=== PATIENT | female | born 1990 ===

== ENCOUNTER 2018-05-19 14:12 | Emergency (ER) | payer MEDICAID, SELFPAY ==
[2018-05-19 14:22] VITALS: BP 152/96; PULSE 84; RESP 16; TEMP 36.7; O2SAT 98
--- NOTE | 2018-05-19 15:13 | W.ED.GENAD ---
Discharge Plan Disposition Patient Disposition: HOME Condition: Fair Discharge Details Chief Complaint: RespSymp Clinical Impression: Pneumonia Primary Care Provider: Rip Sanchez ED Provider: Sanam Rojas Home Meds and New Rx's Prescriptions: New azithromycin 500 mg tablet See Label Instructions .ROUTE .COMPLEX Qty: 3 RF: 0 prednisone 20 mg tablet 60 mg PO DAILY Qty: 12 RF: 0 Continue PNV cmb#95-ferrous fumarate-FA [] 1 EACH tablet 1 ea PO DAILY RF: 0 blood sugar diagnostic [Blood Glucose Test] 1 EACH strip 1 ea Miscellaneous TID & PRN Qty: 400 RF: 12 blood sugar diagnostic [Blood Glucose Test] 1 EACH strip 1 ea Miscellaneous DAILY Qty: 100 RF: 12 lancets 1 EACH misc 1 ea Miscellaneous DAILY Qty: 100 RF: 12 ondansetron 4 MG tablet,disintegrating 8 mg PO Q8H PRN Qty: 24 RF: 1 ondansetron 8 MG tablet,disintegrating 8 mg PO Q8H PRN Qty: 6 RF: 0 insulin NPH isoph U-100 human [Humulin N NPH Insulin KwikPen] 100 UNIT/1 ML insulin pen 20 u Sub-Q HS Qty: 3 RF: 5 Discharge Instructions Instructions: Pneumonia (ED) Additional Instructions: Encourage hydration. Tylenol and/or Motrin as needed for discomfort. Take antibiotics as prescribed, even if symptoms are improving please take entire course. Steroids as prescribed. Follow up with primary care next week. If you develop shortness of breath, difficulty breathing, inability to stay hydrated or other new/worsening symptoms please seek care urgently once again. Referrals: Rip Sanchez [Primary Care Provider] - Medical Decision Making Patient presents today with a chief complaint of cough. On exam, lungs are clear. Vital signs are within normal limits. She is currently afebrile. Is endorsing fever/chills at home as well as increase in her asthma symptoms. She is endorsing reductive cough and reports that she is bringing up green sputum. Patient status post hysterectomy. Patient has had pneumonia on multiple occasions. Reported to the patient receives oral steroids and antibiotics. We discussed risks benefits of chest x-ray which patient is currently declining. Reports she had multiple of these historically and preferred to treat based on history and symptoms. Patient will be reated with Azithromycin and Prednisone. She was given strict return precautions. Encouraged hydration. All of her questions and conerns were addressed, she is in agreement with this plan. Advised f/u with PCP next week for reevaluation. HPI General Mode of arrival: ambulatory. Date/Time Provider Initiated Documentation: 05/19/18 14:50. Limitations to Documentation: no limitations. Information obtained by: patient. HPI Narrative: Patient is a 28-year-old female, with history of asthma, which chief complaint of cough x1 for 5 weeks. She reports over the past week her symptoms have worsened. She is endorsing fevers and chills. Does not have a thermometer at home but does report that she had subjective fevers. Clinical she has had a sore throat but reports that this is more dry than painful. Denies any ear pain. Denies any nausea, vomiting or diarrhea. States that she typically has pneumonia personally 2X per year. Reports that she had increased asthma symptoms and has been needing to use her breakthrough inhaler to help with symptomatic management. He is not currently feeling short of breath and having difficulty breathing Related Data Home Medications Medication Instructions Recorded Confirmed PNV cmb#95-ferrous fumarate-FA 1 ea PO DAILY 03/03/17 04/29/17 [] blood sugar diagnostic [Blood #100 strip 03/17/17 Glucose Test] blood sugar diagnostic [Blood #400 strip 03/17/17 Glucose Test] lancets #100 ea 03/17/17 ondansetron 8 mg PO Q8H PRN #24 tab-cap 03/26/17 ondansetron 8 mg PO Q8H PRN #6 tab-cap 05/18/17 insulin NPH isoph U-100 human 20 u SUB-Q HS #3 pen 05/28/17 [Humulin N NPH Insulin KwikPen] azithromycin See Label Instructions .ROUTE 05/19/18 .COMPLEX #3 tab prednisone 60 mg PO DAILY #12 tab 05/19/18 Previous Rx's Medication Instructions Recorded ondansetron 8 mg PO Q8H PRN #6 tab-cap 05/18/17 insulin NPH isoph U-100 human 20 u SUB-Q HS #3 pen 05/28/17 [Humulin N NPH Insulin KwikPen] azithromycin See Label Instructions .ROUTE 05/19/18 .COMPLEX #3 tab prednisone 60 mg PO DAILY #12 tab 05/19/18 Allergies Allergy/AdvReac Type Severity Reaction Status Date / Time No Known Allergies Allergy Unverified 05/19/18 14:26 General Stated Complaint: RespSymp JORGE: 3 Review of Systems Constitutional Reports as per HPI, Reports chills, Reports fatigue, Reports fever(s) and Denies headache(s) ENT Reports as per HPI and Denies headache(s) Cardiovascular Denies chest pain, Denies chest pain at rest and Denies palpitations Respiratory Reports chest congestion, Reports cough, Denies hemoptysis and Reports wheezing Gastrointestinal Denies change in bowel habits, Denies diarrhea, Denies nausea and Denies vomiting Integumentary/Breasts Denies rash Neurologic Denies headache(s) Endocrine Reports fatigue and Denies palpitations Allergic/Immunologic Reports wheezing [facility] Medical History Asthma BMI 45.0-49.9, adult Carpal tunnel syndrome Social History Smoking/Tobacco Use Status: Current every day Surgical History Abdominal hysterectomy (09/11/17) section Exam Const General: cooperative, healthy appearing, comfortable, no acute distress, well developed and well groomed Nutritional Appearance: well nourished and overweight Orientation: alert and awake HENMT Head: normal to inspection Ears: hearing grossly normal bilaterally, external ears normal and TM's normal bilaterally General nose exam: external nose normal Face and sinus: normal facial exam Mouth: oral mucosae normal, lip normal, tongue normal and moist mucous membranes Throat: posterior oropharynx normal, tonsils normal and uvula midline Eyes General: appearance normal, both eyes and all related structures Neck Neck: normal visual inspection and no lymphadenopathy Resp Effort & Inspection: normal respiratory effort, able to speak in complete sentences and no respiratory distress Auscultation: clear to auscultation bilaterally, no rales, no rhonchi and no wheezes Cardio Rate: regular rate Rhythm: regular rhythm Heart Sounds: S1 normal and S2 normal Skin General skin exam: no rashes or lesions noted Lesions: no lesions Rashes: no rashes Neuro General: alert and awake Cognition: normal cognition Speech: speech normal Gait: normal gait Psych Appearance: grossly normal and well kempt Mental Status: mental status grossly normal Speech and Movement: speech and movement normal Course Vital Signs Temperature 36.7 C 05/19/18 14:22 Pulse 84 09/26/18 14:22 Respiratory Rate 16 05/19/18 14:22 Blood Pressure 152/96 H 05/19/18 14:22 Pulse Oximetry 98 05/19/18 14:22 Temperature 36.7 C 05/19/18 14:22 Temperature Source Skin 05/19/18 14:22 Pulse 84 05/19/18 14:22 Respiratory Rate 16 05/19/18 14:22 Respiratory Effort Non-Labored 05/19/18 14:22 Blood Pressure 152/96 H 05/19/18 14:22 Blood Pressure Position Sitting 05/19/18 14:22 Pulse Oximetry 98 05/19/18 14:22 Oxygen Delivery Method Room Air 05/19/18 14:22 Oxygen Flow Rate 0 05/19/18 14:22 Pain Level 5 05/19/18 14:22
[2018-05-19 15:28] VITALS: BP 139/87; PULSE 97; RESP 20; TEMP 37; O2SAT 97
== END 2018-05-19 15:26 | disposition home or self-care (01) ==
PROVIDERS: Emergency Provider Physician Assistant; PCP Specialist/Technologist Athletic Trainer
DX: J18.9 Pneumonia, unspecified organism (principal); Z87.09 Personal history of other diseases of the respiratory system
CPT/HCPCS: 99283

== ENCOUNTER 2018-06-05 09:54 | Emergency (ER) | payer OTHER, MEDICAID, SELFPAY ==
[2018-06-05 10:07] VITALS: BP 122/75; PULSE 75; RESP 16; TEMP 36.7; O2SAT 99
--- NOTE | 2018-06-05 10:10 | ED.GENADUL_ITS ---
Discharge Plan Disposition Patient Disposition: HOME Condition: Good Discharge Details Chief Complaint: Headache Clinical Impression: Migraine Primary Care Provider: Rip Sanchez ED Provider: Jayson Cruz Home Meds and New Rx's Prescriptions: Continue PNV cmb#95-ferrous fumarate-FA [] 1 EACH tablet 1 ea PO DAILY RF: 0 blood sugar diagnostic [Blood Glucose Test] 1 EACH strip 1 ea Miscellaneous TID & PRN Qty: 400 RF: 12 blood sugar diagnostic [Blood Glucose Test] 1 EACH strip 1 ea Miscellaneous DAILY Qty: 100 RF: 12 lancets 1 EACH misc 1 ea Miscellaneous DAILY Qty: 100 RF: 12 ondansetron 4 MG tablet,disintegrating 8 mg PO Q8H PRN Qty: 24 RF: 1 ondansetron 8 MG tablet,disintegrating 8 mg PO Q8H PRN Qty: 6 RF: 0 insulin NPH isoph U-100 human [Humulin N NPH Insulin KwikPen] 100 UNIT/1 ML insulin pen 20 u Sub-Q HS Qty: 3 RF: 5 azithromycin 500 mg tablet See Label Instructions .ROUTE .COMPLEX Qty: 3 RF: 0 prednisone 20 mg tablet 60 mg PO DAILY Qty: 12 RF: 0 Discharge Instructions Instructions: Migraine Headache (ED) Additional Instructions: you can take 1000mg tylenol and 600mg ibuprofen every 6 hours for pain as needed if you have high fevers, persistent vomit or severe worsening ofp ain return to the emergency department Discharge Data Discharge Physician: Jayson Cruz Medical Decision Making 28 yo female with hx of migraines comes in complaining of pain in her head that she states started 3 days ago and feels similar to prior migraines she has had. Denies fevers, chills, neck pain or stiffness. No vomit. She has normal gait and no focal neuro deficits, CN II-XII are intact. Will treat her for migraine. no findings on exam or hx to suggest saturation equipment operator infection, sah, cerebral venous thrombosis or cavernous sinus thrombosis. Will treat herpain and have her f/u with pcp, return precautions given Differential Diagnosis migraine, tension headache HPI General Mode of arrival: ambulatory . Date/Time Provider Initiated Documentation: 06/05/18 10:01 . Limitations to Documentation: no limitations . Information obtained by: patient . History of Present Illness 28 year old F presents to the emergency department with the chief complaint of headache, described as moderate, with intensity rated at 6. Quality is described as aching, and is localized to the head. Patient reports no radiation. Patient started experiencing this day(s) (3) and it has been constant. No relieving factors improve symptom(s), No exacerbating factors reported . Patient notes other (nausea). Patient did receive the following treatments prior to arrival, NSAID Related Data Home Medications Medication Instructions Recorded Confirmed PNV cmb#95-ferrous fumarate-FA 1 ea PO DAILY 03/03/17 04/29/17 [] blood sugar diagnostic [Blood #100 strip 03/17/17 Glucose Test] blood sugar diagnostic [Blood #400 strip 03/17/17 Glucose Test] lancets #100 ea 03/17/17 ondansetron 8 mg PO Q8H PRN #24 tab-cap 03/26/17 ondansetron 8 mg PO Q8H PRN #6 tab-cap 05/18/17 insulin NPH isoph U-100 human 20 u SUB-Q HS #3 pen 05/28/17 [Humulin N NPH Insulin KwikPen] azithromycin See Label Instructions .ROUTE 05/19/18 .COMPLEX #3 tab prednisone 60 mg PO DAILY #12 tab 05/19/18 Previous Rx's Medication Instructions Recorded ondansetron 8 mg PO Q8H PRN #6 tab-cap 05/18/17 insulin NPH isoph U-100 human 20 u SUB-Q HS #3 pen 05/28/17 [Humulin N NPH Insulin KwikPen] azithromycin See Label Instructions .ROUTE 05/19/18 .COMPLEX #3 tab prednisone 60 mg PO DAILY #12 tab 05/19/18 Allergies Allergy/AdvReac Type Severity Reaction Status Date / Time No Known Allergies Allergy Unverified 05/19/18 14:26 General Stated Complaint: Headache JORGE: 3 Review of Systems Review of Systems All systems reviewed & are unremarkable except as noted in HPI and below Constitutional Denies chills, Denies fever(s) and Denies weakness Eyes Denies loss of vision ENT Denies change in voice Cardiovascular Denies chest pain and Denies dyspnea Respiratory Denies dyspnea Gastrointestinal Denies abdominal pain and Denies vomiting Genitourinary Denies dysuria Musculoskeletal Denies joint swelling Integumentary/Breasts Denies rash Neurologic Denies loss of vision and Denies weakness Psychiatric Denies depression Endocrine Denies cold intolerance and Denies heat intolerance Allergic/Immunologic Reports urticaria PFSH Medical History Asthma BMI 45.0-49.9, adult Carpal tunnel syndrome Social History Smoking/Tobacco Use Status: Current every day Surgical History Abdominal hysterectomy (09/11/17) section Exam Const General: no acute distress Orientation: alert HENMT Head: normal to inspection Ears: external ears normal General nose exam: external nose normal Mouth: moist mucous membranes Eyes General: appearance normal, both eyes and all related structures Neck Neck: normal visual inspection Resp Effort & Inspection: normal respiratory effort and able to speak in complete sentences Cardio Rate: regular rate Skin General skin exam: no rashes or lesions noted Neuro General: alert and oriented x3 Extrem General: normal to inspection Psych Mental Status: mental status grossly normal Course Vital Signs Temperature 36.7 C 06/05/18 10:07 Pulse 75 06/05/18 10:07 Respiratory Rate 16 06/05/18 10:07 Blood Pressure 122/75 06/05/18 10:07 Pulse Oximetry 99 06/05/18 10:07 Temperature 36.7 C 06/05/18 10:07 Temperature Source Temporal Artery Scan 06/05/18 10:07 Pulse 75 06/05/18 10:07 Respiratory Rate 16 06/05/18 10:07 Blood Pressure 122/75 06/05/18 10:07 Blood Pressure Position Sitting 06/05/18 10:07 Pulse Oximetry 99 06/05/18 10:07 Oxygen Delivery Method Room Air 06/05/18 10:07 Oxygen Flow Rate 0 06/05/18 10:07 Pain Level 7 06/05/18 10:07
[2018-06-05] MEDS: Ketorolac 30 MG/ML VIAL IM (10:19)
--- NOTE | 2018-06-07 10:51 | PDOC.ERCMPRO ---
Care Management Progress Note 06/07-Dr. Cruz requested assistance with a PCP (Daniel) f/u in one week for migraine headache. Referral faxed to [facility] this am.
== END 2018-06-05 10:26 | disposition home or self-care (01) ==
LOC: ER 10:29
PROVIDERS: Emergency Provider Emergency Medicine; PCP Specialist/Technologist Athletic Trainer
DX: G43.909 Migraine, unspecified, not intractable, without status migrainosus (principal)
CPT/HCPCS: 96372; 99284; J1885

== ENCOUNTER 2018-07-12 12:56 | Emergency (ER) | payer OTHER, MEDICAID, SELFPAY ==
[2018-07-12 13:15] VITALS: BP 124/83; PULSE 94; RESP 16; TEMP 37.2; O2SAT 98
--- NOTE | 2018-07-12 13:23 | W.ED.GENAD ---
Discharge Plan Disposition Patient Disposition: HOME Condition: Good Discharge Details Chief Complaint: RespSymp Clinical Impression: URI (upper respiratory infection), Sinusitis Primary Care Provider: Rip Sanchez ED Provider: Jayson Castellon Home Meds and New Rx's Prescriptions: New ondansetron HCl [Zofran] 4 mg tablet 4 mg PO TID PRN (Reason: N/V) 5 Days Qty: 9 RF: 0 prednisone 20 mg tablet 40 mg PO DAILY Qty: 10 RF: 0 No Action blood sugar diagnostic [Blood Glucose Test] 1 EACH strip 1 ea Miscellaneous TID & PRN Qty: 400 RF: 12 blood sugar diagnostic [Blood Glucose Test] 1 EACH strip 1 ea Miscellaneous DAILY Qty: 100 RF: 12 lancets 1 EACH misc 1 ea Miscellaneous DAILY Qty: 100 RF: 12 acetaminophen [Tylenol] 325 mg Capsule 2 tab PO Q6H PRNRF: 0 Discharge Instructions Instructions: Sinusitis (ED), Upper Respiratory Infection (ED) Stand Alone Forms: Work Release Referrals: Rip Sanchez [Primary Care Provider] - Return if symptoms worsen Discharge Data Discharge Date/Time-TO BE ENTERED AT DEPARTURE: 07/12/18 15:05 Medical Decision Making She is well hydrated. Plan to x-ray chest, swab for influenza, and administer ODT Zofran. Apprised of normal chest and negative flu. She tolerated Zofran. I advised to get rest and fluids. Provided work note and prescribed Zofran. Imaging Data Radiologic Study: Imaging: X-Ray My impression: normal chest Radiologist's impression: CONCLUSION: Normal chest. HPI General Date/Time Provider Initiated Documentation: 07/12/18 13:22. Limitations to Documentation: no limitations. Information obtained by: patient. History of Present Illness 28 year old F presents to the emergency department with the chief complaint of URI and sinusitis, HPI Narrative: 28 y/o female here with c/o cough, sinus pressure, N/V, and fever for three days. Symptoms started three days ago and has gotten much worse. Did not have flu shot. Would like flu swab. She has been able to keep water down. Related Data Home Medications Medication Instructions Recorded Confirmed blood sugar diagnostic [Blood #100 strip 03/17/17 Glucose Test] blood sugar diagnostic [Blood #400 strip 03/17/17 Glucose Test] lancets #100 ea 03/17/17 acetaminophen [Tylenol] 2 tab PO Q6H PRN 07/12/18 07/12/18 ondansetron HCl [Zofran] 4 mg PO TID PRN 5 Days #9 tab 07/12/18 prednisone 40 mg PO DAILY #10 tab 07/12/18 Previous Rx's Medication Instructions Recorded ondansetron HCl [Zofran] 4 mg PO TID PRN 5 Days #9 tab 07/12/18 prednisone 40 mg PO DAILY #10 tab 07/12/18 Allergies Allergy/AdvReac Type Severity Reaction Status Date / Time No Known Allergies Allergy Unverified 07/12/18 13:18 General Stated Complaint: RespSymp JORGE: 3 Review of Systems Constitutional Reports body ache(s) and Reports fever(s) Eyes Reports system reviewed and no additional complaints, except as [facility] ENT Reports otalgia, Reports nasal congestion, Reports nasal discharge, Reports sinus pain and Reports sinus pressure Cardiovascular Reports system reviewed and no additional complaints, except as [facility] Respiratory Reports cough and Reports wheezing Gastrointestinal Reports system reviewed and no additional complaints, except as [facility] Genitourinary Reports system reviewed and no additional complaints, except as [facility] Musculoskeletal Reports myalgias Neurologic Reports system reviewed and no additional complaints, except as [facility] Allergic/Immunologic Reports wheezing Exam Const General: cooperative and no acute distress Nutritional Appearance: obese Orientation: alert, awake and oriented x3 HENMT Head: normal to inspection and atraumatic Ears: hearing grossly normal bilaterally, external ears normal and TM abnormal bulging and with loss of landmarks General nose exam: external nose normal and nares normal Face and sinus: sinus tenderness frontal and maxillary Mouth: oral mucosae normal, lip normal, tongue normal, oropharynx normal and moist mucous membranes Teeth and gingiva: dentition normal Throat: posterior oropharynx normal Eyes General: appearance normal, both eyes and all related structures Neck Neck: normal visual inspection, full ROM and no lymphadenopathy Resp Effort & Inspection: normal respiratory effort Auscultation: clear to auscultation bilaterally Cardio Jugular venous pressure: no JVD Rate: regular rate Rhythm: regular rhythm Heart Sounds: S1 normal, S2 normal and no murmurs GI Palpation: soft and nontender Back/Spine/Pelvis Back: No back tenderness Skin General skin exam: no rashes or lesions noted Neuro General: alert, awake, oriented x3 and gait normal Extrem General: normal to inspection, full ROM and normal capillary refill Psych Appearance: grossly normal Mental Status: mental status grossly normal Mood: congruent mood Affect: normal affect Attitude: cooperative Thought Process: normal Thought Content: normal Insight: insight good Judgment: judgment good Course Vital Signs Temperature 37.2 C 07/12/18 13:15 Pulse 94 H 07/12/18 13:15 Respiratory Rate 16 07/12/18 13:15 Blood Pressure 124/83 07/12/18 13:15 Pulse Oximetry 98 07/12/18 13:15 Temperature 37.2 C 07/12/18 13:15 Temperature Source Temporal Artery Scan 07/12/18 13:15 Pulse 94 H 07/12/18 13:15 Respiratory Rate 16 07/12/18 13:15 Respiratory Effort Non-Labored 07/12/18 13:17 Blood Pressure 124/83 07/12/18 13:15 Blood Pressure Position Sitting 07/12/18 13:15 Pulse Oximetry 98 07/12/18 13:15 Oxygen Delivery Method Room Air 07/12/18 13:15 Oxygen Flow Rate 0 07/12/18 13:15 Pain Level 8 07/12/18 13:15
--- NOTE | 2018-07-12 13:44 | DI.RAD_ITS ---
SYMPTOMS/DIAGNOSIS: COUGH, CHILLS PA AND LATERAL CHEST: The heart is normal in size. The lungs are clear. The mediastinal structures and pleura appear intact. CONCLUSION: Normal chest.
[2018-07-12] MEDS: Ondansetron O.D.T. 4 MG TABEF (13:53)
[2018-07-12] MEDS: Ibuprofen 800 MG TAB (14:21)
[2018-07-12 15:01] VITALS: PULSE 88; RESP 17; TEMP 37.1
== END 2018-07-12 15:05 | disposition home or self-care (01) ==
PROVIDERS: Emergency Provider Nurse Practitioner Family; PCP Specialist/Technologist Athletic Trainer
DX: J06.9 Acute upper respiratory infection, unspecified (principal); J01.90 Acute sinusitis, unspecified
CPT/HCPCS: 87449; 99283; 71046

== ENCOUNTER 2018-09-17 14:46 | Emergency (ER) | payer OTHER, MEDICAID, SELFPAY ==
[2018-09-17 14:49] VITALS: BP 151/81; PULSE 101; RESP 18; TEMP 37.1; O2SAT 97
--- NOTE | 2018-09-17 17:03 | ED.GENADUL_ITS ---
Discharge Plan Disposition Patient Disposition: HOME Condition: Stable Discharge Details Chief Complaint: RespSymp Clinical Impression: Acute bronchitis Primary Care Provider: Rip Sanchez ED Provider: Elissa Tellez Home Meds and New Rx's Prescriptions: New benzonatate [Tessalon Perles] 100 mg capsule 100 mg PO TID PRN (Reason: cough) Qty: 10 RF: 0 prednisone 50 mg tablet 50 mg PO DAILY 5 Days Qty: 5 RF: 0 azithromycin [Zithromax] 500 mg tablet 500 mg PO DAILY 5 Days Qty: 5 RF: 0 Continued acetaminophen [Tylenol] 325 mg Capsule 2 tab PO Q6H PRNRF: 0 prednisone 20 mg tablet 40 mg PO DAILY Qty: 10 RF: 0 Discharge Instructions Instructions: Acute Bronchitis (ED) Additional Instructions: Use your inhaler and cough medicine as needed and directed. Take the steroids until finished. If you have no improvement or worsening of symptoms in the next 3 days, you may start the antibiotics. Follow-up with your primary care doctor in 1 week for reevaluation. Return immediately to the emergency department any worsening or new concerning symptoms. Discharge Data Discharge Date/Time-TO BE ENTERED AT DEPARTURE: 09/17/18 17:11 Discharge Physician: Elissa Tellez Medical Decision Making Patient is a 28-year old female with a history of cough productive of yellow and green sputum, sore throat, chest tightness and occasional shortness of breath for the past 2 days. Patient denies any fever but does admit to occasional chills. Heart rate mildly tachycardic, but afebrile with normal respiratory rate and oxygen saturation. Patient appears nontoxic and in no acute distress. She is speaking in full sentences. She has minimal scattered wheezing but otherwise clear breath sounds. Patient states she does not want any treatments or chest x-ray and states that when she has the symptoms she just needs steroids and is requesting a steroid prescription. We will send home with inhaler, Tessalon Perles as well as a prescription for antibiotics if her symptoms do not improve or worsen over the next 2 days. Patient states she has a primary care doctor but has not seen them recently. P atient instructed to return to the ER at any time if worse. HPI General Mode of arrival: ambulatory . Date/Time Provider Initiated Documentation: 09/17/18 15:12 . Limitations to Documentation: no limitations . Information obtained by: patient . HPI Narrative: Patient is a 28-year-old female with a history of asthma, anxiety, depression and ADD who presents to the ED with a complaint of cough productive of yellow and green sputum, sore throat, chills, chest tightness and occasional shortness of breath for the past 2 days. Patient denies known fevers. Patient states she mainly is here for a steroid prescription. Patient states she was sent home from work due to her symptoms. Related Data Home Medications Medication Instructions Recorded Confirmed acetaminophen [Tylenol] 2 tab PO Q6H PRN 07/12/18 09/17/18 prednisone 40 mg PO DAILY #10 tab 07/12/18 09/17/18 azithromycin [Zithromax] 500 mg PO DAILY 5 Days #5 tab 09/17/18 benzonatate [Tessalon Perles] 100 mg PO TID PRN #10 cap 09/17/18 prednisone 50 mg PO DAILY 5 Days #5 tab 09/17/18 Previous Rx's Medication Instructions Recorded prednisone 40 mg PO DAILY #10 tab 07/12/18 azithromycin [Zithromax] 500 mg PO DAILY 5 Days #5 tab 09/17/18 benzonatate [Tessalon Perles] 100 mg PO TID PRN #10 cap 09/17/18 prednisone 50 mg PO DAILY 5 Days #5 tab 09/17/18 Allergies Allergy/AdvReac Type Severity Reaction Status Date / Time No Known Allergies Allergy Unverified 07/12/18 13:18 General Stated Complaint: RespSymp JORGE: 4 Review of Systems Review of Systems All systems reviewed & are unremarkable except as noted in HPI and below Constitutional Reports as per HPI, Denies chills and Denies fever(s) Eyes Denies blurry vision ENT Denies dizziness, Reports sore throat and Denies throat swelling Cardiovascular Denies chest pain and Reports dyspnea Respiratory Reports cough, Reports pain with cough and Reports dyspnea Gastrointestinal Denies abdominal pain, Denies diarrhea and Denies vomiting Genitourinary Denies hematuria and Denies dysuria Musculoskeletal Denies back pain and Denies numbness Integumentary/Breasts Denies lesions and Denies rash Neurologic Denies dizziness and Denies numbness Allergic/Immunologic Denies throat swelling [facility] Medical History ADHD (Acute) Anxiety (Chronic) Depression (Chronic) History of hysterectomy (Chronic) Asthma BMI 45.0-49.9, adult Carpal tunnel syndrome Surgical History History of dilation and curettage (Acute) H/O section (Chronic) Abdominal hysterectomy (09/11/17) section Social History Smoking/Tobacco Use Status: Current every day alcohol intake: current alcohol intake frequency: a few times a week substance use type: does not use Exam Const General: cooperative, healthy appearing and no acute distress HENMT Head: normal to inspection Ears: hearing grossly normal bilaterally and TM's normal bilaterally General nose exam: external nose normal Face and sinus: normal facial exam Mouth: oral mucosae normal Teeth and gingiva: dentition normal Throat: posterior oropharynx normal Eyes General: appearance normal, both eyes and all related structures EOM: EOM intact bilaterally Neck Neck: normal visual inspection and No submandibular swelling Lymphatic: no lymphadenopathy noted Chest Chest: normal inspection of the chest and no tenderness Resp Effort & Inspection: normal respiratory effort and able to speak in complete sentences Auscultation: wheezes scattered wheezes Cardio Rate: regular rate Rhythm: regular rhythm GI Inspection: normal to inspection Back/Spine/Pelvis Thoracic/Lumbar Spine: thoracic and lumbar spine normal to inspection Skin General skin exam: no rashes or lesions noted Neuro General: alert, awake and oriented x3 Cognition: normal cognition Speech: speech normal Motor: muscle tone normal throughout Sensory Exam: no sensory deficits noted Extrem General: normal to inspection, full ROM, normal capillary refill and no edema Psych Appearance: grossly normal Mental Status: mental status grossly normal Speech and Movement: speech and movement normal Affect: normal affect Course Vital Signs Temperature 98.8 F 09/17/18 14:49 Pulse 101 H 09/17/18 14:49 Respiratory Rate 18 09/17/18 14:49 Blood Pressure 151/81 H 09/17/18 14:49 Pulse Oximetry 97 09/17/18 14:49 Temperature 98.8 F 09/17/18 14:49 Temperature Source Temporal Artery Scan 09/17/18 14:49 Pulse 101 H 09/17/18 14:49 Respiratory Rate 18 09/17/18 14:49 Respiratory Effort Non-Labored 09/17/18 14:52 Blood Pressure 151/81 H 09/17/18 14:49 Pulse Oximetry 97 09/17/18 14:49 Oxygen Delivery Method Room Air 09/17/18 14:49 Oxygen Flow Rate 0 09/17/18 14:49
[2018-09-17] MEDS: Albuterol HFA 8 GM 60 PUFF INH IH (17:12)
== END 2018-09-17 17:11 | disposition home or self-care (01) ==
PROVIDERS: Emergency Provider Physician Assistant; PCP Specialist/Technologist Athletic Trainer
DX: R05 Cough (principal); R06.02 Shortness of breath; J20.9 Acute bronchitis, unspecified; J45.909 Unspecified asthma, uncomplicated; F17.210 Nicotine dependence, cigarettes, uncomplicated
CPT/HCPCS: 99283

== ENCOUNTER 2019-03-04 19:54 | Emergency (ER) | payer MEDICAID, SELFPAY ==
[2019-03-04 19:59] VITALS: BP 141/85; PULSE 85; RESP 16; TEMP 36.8; O2SAT 97
--- NOTE | 2019-03-04 20:33 | DI.RAD_ITS ---
SYMPTOM/DIAGNOSIS: UNABLE TO OPEN AND CLOSE MOUTH NORMALLY MANDIBLE: Five views were obtained. No osseous abnormality is identified. No fracture, lytic or sclerotic lesion is seen. The temporomandibular joints appear unremarkable. IMPRESSION: No acute abnormality.
--- NOTE | 2019-03-04 20:36 | ED.GENADUL_ITS ---
Discharge Plan Disposition Patient Disposition: HOME Condition: Good Discharge Details Chief Complaint: Orthopedic Clinical Impression: Masseter muscle spasm Primary Care Provider: Rip Sanchez ED Provider: Marques Ortiz Home Meds and New Rx's Prescriptions: New cyclobenzaprine [cyclobenzaprine] 10 MG tablet 10 mg PO TID Qty: 10 RF: 0 ibuprofen 600 mg tablet 600 mg PO TID PRN (Reason: pain) Qty: 20 RF: 0 No Action No Known Home Meds RF: 0 Discharge Instructions Additional Instructions: X-rays of the jaw appears normal. This does not appear to be related to the fractured tooth but that should be seen by a dentist soon. Think this is related to the masseter muscle spasms. We will try some muscle relaxer and anti-inflammatory. You may try some ice or heat to see which one helps. Follow-up with your primary care or dentist next week. Return to ED if facial swelling, fever, inability to open or close mouth Referrals: Rip Sanchez [Primary Care Provider] - Medical Decision Making Patient is able to open and close mouth although is not able to open completely. Significant right lower molar decay/fracture but no percussion tenderness, swelling, dental pain. Complains of discomfort with palpation along the right masseter muscle down to the angle of the jaw. Suspect masseter muscle spasm. Denies injury. Will obtain mandible x-ray but doubt TMJ subluxation or dislocation. X-rays per my read as well as preliminary radiology read show normal mandible and TMJ. Patient will be started on anti-inflammatory as well as muscle relaxant and referred to dentistry and/or primary care. Return to ED for fever, facial swelling, increasing pain, inability to open and close mouth, other concerns or problems. HPI General Mode of arrival: ambulatory . Date/Time Provider Initiated Documentation: 03/04/19 20:19 . Limitations to Documentation: no limitations . Information obtained by: patient . HPI Narrative: Patient presents to ED with complaint of right jaw pain. There has been no injury. She is able to open and close but not completely. She states that her teeth do not come together as they had before. She denies dental pain. She denies fever or facial swelling. Symptoms have been ongoing for the last couple of days. She has not had this problem previously. Related Data Home Medications Medication Instructions Recorded Confirmed Unknown [No Known Home Meds] 03/04/19 03/04/19 cyclobenzaprine 10 mg PO TID #10 tab 03/04/19 ibuprofen 600 mg PO TID PRN #20 tab 03/04/19 Previous Rx's Medication Instructions Recorded cyclobenzaprine 10 mg PO TID #10 tab 03/04/19 ibuprofen 600 mg PO TID PRN #20 tab 03/04/19 Allergies Allergy/AdvReac Type Severity Reaction Status Date / Time No Known Allergies Allergy Unverified 03/04/19 20:04 General Stated Complaint: Orthopedic JORGE: 3 Review of Systems Review of Systems As documented in HPI otherwise negative as below. Const: no fever, chills, weakness Resp: no cough, SOB, pleuritic pain CV: no CP, diaphoresis, edema, syncope GI: no abdominal pain, nausea, vomiting, diarrhea Neuro: no headache, numbness, focal weakness, confusion PFS Medical History ADHD (Acute) Anxiety (Chronic) Asthma BMI 45.0-49.9, adult Carpal tunnel syndrome Depression (Chronic) Surgical History Abdominal hysterectomy (09/11/17) section History of dilation and curettage (Acute) Social History Smoking/Tobacco Use Status: Current every day Tobacco Type: cigarettes Alcohol Intake: current Alcohol Intake frequency: a few times a week Drug use: Occasionally Substance use type: does not use and marijuana Do you feel safe at home: Yes Do you feel safe in your relationship?: Yes Exam Const General: cooperative, comfortable and no acute distress Orientation: alert and oriented x3 HENMT Head: normal to inspection, normocephalic and atraumatic Ears: external ears normal Face and sinus: normal facial exam, face symmetric, no ecchymosis, no erythema, no edema, no fluctuance and tenderness on the right mandible and angle of jaw Mouth: oral mucosae normal and lip normal Teeth and gingiva: poor dentition and other (right lower molar fracture/decayed down to root but no tenderness/abscess) Other: TMJ feels normal with no swelling or tenderness within the joint bilaterally. Neck Neck: no lymphadenopathy and supple Skin General skin exam: no ecchymosis, no erythema and no induration Rashes: no rashes Course Vital Signs Temperature 98.2 F 03/04/19 19:59 Pulse 85 03/04/19 19:59 Respiratory Rate 16 03/04/19 19:59 Blood Pressure 141/85 H 03/04/19 19:59 Pulse Oximetry 97 03/04/19 19:59 Temperature 98.2 F 03/04/19 19:59 Temperature Source Skin 03/04/19 19:59 Pulse 85 03/04/19 19:59 Respiratory Rate 16 03/04/19 19:59 Respiratory Effort Non-Labored 03/04/19 20:03 Blood Pressure 141/85 H 03/04/19 19:59 Blood Pressure Position Sitting 03/04/19 19:59 Pulse Oximetry 97 03/04/19 19:59 Oxygen Delivery Method Room Air 03/04/19 19:59 Oxygen Flow Rate 0 03/04/19 19:59 Pain Level 7 03/04/19 20:12
[2019-03-04] MEDS: Cyclobenzaprine 10 MG TAB PO (21:49)
[2019-03-04] MEDS: Ibuprofen 600 MG TAB PO (21:49)
== END 2019-03-04 21:53 | disposition home or self-care (01) ==
PROVIDERS: Emergency Provider Emergency Medicine; PCP Specialist/Technologist Athletic Trainer
DX: M62.838 Other muscle spasm (principal)
CPT/HCPCS: 99283; 70110

== ENCOUNTER 2019-04-29 19:11 | Emergency (ER) | payer MEDICAID, SELFPAY ==
[2019-04-29 19:23] VITALS: BP 137/92; PULSE 81; RESP 16; TEMP 36.7; O2SAT 98
--- NOTE | 2019-04-29 19:38 | W.ED.GENAD ---
Discharge Plan Disposition Patient Disposition: HOME Condition: Good Discharge Details Chief Complaint: DentalOral Clinical Impression: Pain, dental Primary Care Provider: Rip Sanchez ED Provider: Sowmya Gaitan Home Meds and New Rx's Prescriptions: New penicillin V potassium 500 mg tablet 500 mg PO QID Qty: 40 RF: 0 Continued ibuprofen 600 mg tablet 600 mg PO TID PRN (Reason: pain) Qty: 20 RF: 0 Discharge Instructions Instructions: Toothache (ED) Additional Instructions: Keep head of bed elevated. Ice to the cheek for swelling. Warm salt water rinses as discussed. Use antibiotics as prescribed. Follow-up with your dentist as discussed. [id number] medications for pain relief. Next and return for any worsening, concerns difficulty eating or drinking or increasing facial swelling. Medical Decision Making Patient with dental pain for last 4 days without obvious abscess requiring drainage. Patient with dental fracture at the site. No obvious nerve exposure. Will treat appropriately with antibiotics. Patient does have a dentist with whom she can follow. Conservative treatments also discussed. Patient agrees with plan of care HPI General Date/Time Provider Initiated Documentation: 04/29/19 19:23. HPI Narrative: Patient presents with complaints of dental pain for the last 4 days. Patient reports 4 days of dental pain question fracture of her tooth at a known feeling. Patient denies significant facial swelling. Mild fullness present. Eating and drink without difficulty. Does feel well hydrated. No other concerns or complaints at this time. No fevers or chills. Denies trismus. Related Data Home Medications Medication Instructions Recorded Confirmed ibuprofen 600 mg PO TID PRN #20 tab 03/04/19 04/29/19 penicillin V potassium 500 mg PO QID #40 tab 04/29/19 Previous Rx's Medication Instructions Recorded ibuprofen 600 mg PO TID PRN #20 tab 03/04/19 penicillin V potassium 500 mg PO QID #40 tab 04/29/19 Allergies Allergy/AdvReac Type Severity Reaction Status Date / Time No Known Allergies Allergy Unverified 04/29/19 19:26 General Stated Complaint: DentalOral JORGE: 5 Review of Systems Review of Systems CONSTITUTIONAL: The patient denies fevers, chills. EYES: Denies vision changes, blurry vision, or eye pain. ENT: Denies hearing changes, tinnitus, vertigo, sore throat. CARDIAC: Denies chest pain, SOB. RESPIRATORY: Denies cough, sputum. Denies difficulty breathing. GASTROINTESTINAL: Denies abdominal pain, changes in bowel, vomiting or nausea. GENITOURINARY: Denies dysuria, or frequency of urination. MUSCULOSKELETAL: Denies Joint pain, gait changes. NEUROLOGIC: Denies headaches, Denies focal weakness. Denies numbness. INTEGUMENT: Denies rashes. PSYCHIATRIC: Denies behavior changes. Denies anxiety or depression. ENDOCRINOLOGY: Denies fatigue. PSYCHIATRY: Denies depression, agitation or anxiety [facility] Medical History ADHD (Acute) Anxiety (Chronic) Asthma BMI 45.0-49.9, adult Carpal tunnel syndrome Depression (Chronic) Surgical History Abdominal hysterectomy (09/11/17) Supracervical hysterectomy with unilateral salpingectomy. Ovaries conserved. 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 section 2010 History of dilation and curettage (Acute) Social History Smoking/Tobacco Use Status: Current every day Tobacco Type: cigarettes Alcohol Intake: current Alcohol Intake frequency: a few times a week Drug use: Occasionally Substance use type: marijuana Do you feel safe at home: Yes Do you feel safe in your relationship?: Yes Exam Narrative Exam Narrative: CONST: Healthy appearing patient, in no acute distress. Well hydrated. Alert and alert. HENMT: Head nomocephalic, normal to inspection. Atraumatic. Hearing grossly normal. Dental fracture at site of feeling at the left upper posterior molar. No obvious abscess surrounding. Mild dental tenderness present. EYES: General normal appearance. Alignment normal. Eyelids normal. Conjunctiva normal. NECK: Normal visual inspection. FROM. Trachea midline. No Midline tenderness. CHEST: Normal insepection of the chest. RESP: Normal respiratory effort. Speaking full sentences. No cough. No audible wheezing. No retractions. CARDIO: No JVD. MUSCULOSKELETAL: Normal Gait. FROM of all extremities. SKIN: Normal. Dry. No rashes. NEURO: Alert and awake. Speech clear. PSYCH: Normal affect. Cooperative. Course Vital Signs Temperature 36.7 C 09/06/19 19:23 Pulse 81 04/29/19 19:23 Respiratory Rate 16 04/29/19 19:23 Blood Pressure 137/92 H 04/29/19 19:23 Pulse Oximetry 98 04/29/19 19:23 Temperature 36.7 C 04/29/19 19:23 Temperature Source Skin 04/29/19 19:23 Pulse 81 04/29/19 19:23 Respiratory Rate 16 04/29/19 19:23 Respiratory Effort Non-Labored 04/29/19 19:27 Blood Pressure 137/92 H 04/29/19 19:23 Pulse Oximetry 98 04/29/19 19:23 Pain Level 10 04/29/19 19:27
[2019-04-29] MEDS: Penicillin V POTASSIUM 500 MG TAB PO (20:01)
== END 2019-04-29 19:50 | disposition home or self-care (01) ==
PROVIDERS: Emergency Provider Physician Assistant; PCP Specialist/Technologist Athletic Trainer
DX: R68.84 Jaw pain (principal); S02.5XXA Fracture of tooth (traumatic), initial encounter for closed fracture; X58.XXXA Exposure to other specified factors, initial encounter
CPT/HCPCS: 99283

== ENCOUNTER 2019-05-09 14:26 | Outpatient (REF) | payer MEDICAID, SELFPAY ==
[2019-05-09 22:00] LABS: Abs Immature Grans 0.01 k/cumm (0.0-0.09); Absolute Basophil Count 0.02 k/cumm (0.0-0.2); Absolute Eosinophil Count 0.06 k/cumm (0.0-0.7); Absolute Lymphocyte Count 3.38 k/cumm (1.2-3.4); Absolute Neutrophil Count 3.18 k/cumm (1.2-6.7); Basophils % 0.3; Eosinophils % 0.8; HCT 39.3 % (36.0-46.0); Immature Grans % 0.1; Mean Corp. HGB Concentration 33.1 g/dL (32.0-36.0); Mean Corpuscular Hemoglobin 29.1 pg (27.0-33.0); Mean Corpuscular Volume 87.9 fL (80-95); Mean Platelet Volume 8.9 fL (8.0-11.0); Monocytes % 9.5; Neutrophils % 43.3; Platelet Count 302 x1000/uL (130-400); RBC 4.47 m/cumm (4.00-5.20); White Blood Cell Count 7.35 k/cumm (4.4-10.8)
[2019-05-09 22:49] LABS: ALT 78 U/L (14-59); AST 25 U/L (15-37); Albumin 3.8 g/dL (3.4-5.0); Alkaline Phosphatase 74 U/L (46-116); Anion Gap 9.7 mmol/L (3-11); BUN 14 mg/dL (7-18); Bilirubin, Total 0.3 mg/dL (0.2-1.0); CO2 25.3 mmol/L (21.0-32.0); CREATININE 0.87 mg/dL (0.55-1.02); Calcium 8.8 mg/dL (8.5-10.1); Calculated LDL 67 mg/dL; Chloride 103 mmol/L (98-107); Cholesterol 142 mg/dL (50-200); Glucose 152 mg/dL (70-100); HDL Cholesterol 43 mg/dL (40-60); Potassium 4.1 mmol/L (3.5-5.1); Sodium 138 mmol/L (136-145); TSH (W/Ref FT4) 0.86 uIU/mL (0.36-3.74); Total Protein 7.7 g/dL (6.4-8.2); Triglyceride 163 mg/dL (30-150)
== END 2019-05-09 14:46 ==
LOC: NCHCN 14:26
PROVIDERS: PCP Specialist/Technologist Athletic Trainer; Visit Provider Physician Assistant Medical
DX: R53.83 Other fatigue (principal)
CPT/HCPCS: 80053; 80061; 84443; 85025

== ENCOUNTER 2019-07-09 19:47 | Emergency (ER) | payer MEDICAID, SELFPAY ==
[2019-07-09 19:50] VITALS: BP 148/104; PULSE 77; RESP 16; TEMP 36.7; O2SAT 100
--- NOTE | 2019-07-09 20:04 | W.ED.GENAD ---
Discharge Plan Disposition Patient Disposition: HOME Discharge Details Chief Complaint: DentalOral Clinical Impression: Dental abscess, Cigarette smoker Primary Care Provider: Rip Sanchez ED Provider: Arnaldo Pandey Home Meds and New Rx's Prescriptions: New penicillin V potassium 500 mg tablet 500 mg PO QID Qty: 27 RF: 0 Continued ibuprofen 600 mg tablet 600 mg PO TID PRN (Reason: pain) Qty: 20 RF: 0 metformin 500 mg Tablet 500 mg PO HS RF: 0 Discharge Instructions Instructions: How to Stop Smoking (ED), Dental Abscess (ED) Additional Instructions: Please follow-up with your dentist. Call on Thursday to arrange timely follow-up. Take full course of antibiotic as prescribed. Please contact your primary care physician to arrange follow-up. Be sure to discuss smoking cessation. Now is th time to stop smoking. Return to the ER for any worsening or new concerning symptoms. Referrals: Rip Sanchez [Primary Care Provider] - Medical Decision Making 29-year-old female here with recurrent dental infection tooth #15 with periapical abscess. Topical Hurricaine gel applied. Informed consent obtained. Periapical dental block performed and attempted to drain periapical abscess. Area of fluctuance was incised with 11 blade. No significant purulent drainage. Patient to be started on penicillin and to follow-up with dentist. HPI General Mode of arrival: ambulatory. Date/Time Provider Initiated Documentation: 07/09/19 19:57. Limitations to Documentation: no limitations. Information obtained by: patient. HPI Narrative: 29-year-old female here with dental pain for the past 1 week. Patient notes left upper molar pain and associated swelling of gumline. Pain is moderate to severe. No associated fever. Patient had dental infection of this area in April that was treated with penicillin. Unfortunately she was not able to follow-up with dentist. Related Data Home Medications Medication Instructions Recorded Confirmed ibuprofen 600 mg PO TID PRN #20 tab 03/04/19 07/09/19 metformin 500 mg PO HS 07/09/19 07/09/19 penicillin V potassium 500 mg PO QID #27 tab 07/09/19 Previous Rx's Medication Instructions Recorded ibuprofen 600 mg PO TID PRN #20 tab 03/04/19 penicillin V potassium 500 mg PO QID #27 tab 07/09/19 Allergies Allergy/AdvReac Type Severity Reaction Status Date / Time No Known Allergies Allergy Unverified 07/09/19 19:53 General Stated Complaint: DentalOral JORGE: 5 Review of Systems Constitutional Constitutional: Denies fever(s) ENT Ears, Nose, Mouth, and Throat: Reports as per [facility] Medical History ADHD (Acute) Anxiety (Chronic) Asthma BMI 45.0-49.9, adult Carpal tunnel syndrome Depression (Chronic) Surgical History Abdominal hysterectomy (09/11/17) Supracervical hysterectomy with unilateral salpingectomy. Ovaries conserved. 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 section 2010 History of dilation and curettage (Acute) Social History Smoking/Tobacco Use Status: Current every day Tobacco Type: cigarettes Alcohol Intake: current Alcohol Intake frequency: a few times a week Drug use: Occasionally Substance use type: marijuana Do you feel safe at home: Yes Do you feel safe in your relationship?: Yes Additional Social history: pt is not alone to assess privately Exam Const General: cooperative HENMT Mouth: moist mucous membranes Teeth and gingiva: other (Tooth #15 with periapical abscess and fluctuance of gum) Throat: posterior oropharynx normal Eyes Conjunctivae: normal conjunctivae Sclera: normal sclerae Neck Neck: trachea midline and supple Resp Auscultation: clear to auscultation bilaterally, no rales, no rhonchi and no wheezes Cardio Rate: regular rate Rhythm: regular rhythm Heart Sounds: no murmurs Skin General skin exam: no rashes or lesions noted Neuro General: alert, awake and tone normal Course Vital Signs Vital signs: Vital Signs Temperature 36.7 C 07/09/19 19:50 Pulse 77 07/09/19 19:50 Respiratory Rate 16 07/09/19 19:50 Blood Pressure 148/104 H 07/09/19 19:50 Pulse Oximetry 100 07/09/19 19:50 Temperature 36.7 C 07/09/19 19:50 Temperature Source Skin 07/09/19 19:50 Pulse 77 07/09/19 19:50 Respiratory Rate 16 07/09/19 19:50 Respiratory Effort Non-Labored 07/09/19 19:54 Blood Pressure 148/104 H 07/09/19 19:50 Pulse Oximetry 100 07/09/19 19:50 Pain Level 7 07/09/19 19:50 Procedures Abscess I/D Site: Other (dental) Side (if applicable): Left Local Anesthetic: Lidocaine 1% Amount of anesthesia used (mL): 1 Technique: Incised with #11 Blade Amount of fluid expressed (mL): 1 Complications: Pain
[2019-07-09] MEDS: Penicillin V POTASSIUM 500 MG TAB PO (20:14)
[2019-07-09] MEDS: Benzocaine 20% Gel 30 GM JAR MM (20:15)
[2019-07-09] MEDS: Lidocaine 1% Multi-Dose 50 ML VIAL IJ (20:15)
== END 2019-07-09 20:55 | disposition home or self-care (01) ==
PROVIDERS: Emergency Provider Student in an Organized Health Care Education/Training Program; PCP Specialist/Technologist Athletic Trainer
DX: K04.7 Periapical abscess without sinus (principal); F17.210 Nicotine dependence, cigarettes, uncomplicated
CPT/HCPCS: 10060; 99283

== ENCOUNTER 2019-08-09 20:14 | Emergency (ER) | payer MEDICAID, SELFPAY ==
[2019-08-09 20:17] VITALS: BP 135/73; PULSE 101; RESP 24; TEMP 36.7; O2SAT 99
--- NOTE | 2019-08-09 20:18 | W.ED.GENAD ---
Discharge Plan Disposition Patient Disposition: HOME Condition: Good Discharge Details Chief Complaint: RespSymp Clinical Impression: URI (upper respiratory infection), Asthma exacerbation Primary Care Provider: Rip Sanchez ED Provider: Sanam Rojas Home Meds and New Rx's Prescriptions: New prednisone 50 mg tablet 50 mg PO DAILY Qty: 4 RF: 0 benzonatate [Tessalon Perles] 100 mg capsule 100 mg PO TID PRN (Reason: cough) Qty: 14 RF: 0 albuterol sulfate 2.5 mg/0.5 mL solution for nebulization 2.5 mg IH Q4H PRN (Reason: bronchospasm) Qty: 30 RF: 0 Continued ibuprofen 600 mg tablet 600 mg PO TID PRN (Reason: pain) Qty: 20 RF: 0 metformin 500 mg Tablet 500 mg PO HS RF: 0 albuterol sulfate 90 mcg/actuation Hfa Aerosol Inhaler 2 puff INHALATION QID RF: 0 Discharge Instructions Instructions: Benzonatate (By mouth), Prednisone (By mouth), Azithromycin (By mouth), Asthma (ED), Upper Respiratory Infection (ED) Additional Instructions: Encourage hydration. Tylenol and/or ibuprofen as needed for discomfort. Please take the prednisone and azithromycin as prescribed. Your first dosing of each was given tonight is not due until tomorrow evening. You may use the albuterol for her nebulizer as prescribed. Please follow-up with primary care at the end of the week for reevaluation. If you develop difficulty breathing, increased work of breath, inability stay hydrated or other new/worsening symptom please seek care urgently once again. Referrals: Rip Sanchez [Primary Care Provider] - Discharge Data Discharge Date/Time-TO BE ENTERED AT DEPARTURE: 08/09/19 22:25 Medical Decision Making Patient is a 29 year old female with c/c of cough that has progressively been worsening over the past week. Has hx of asthma and feels that this has been exacerbated as well, has been using inhalers with only temporary relief. She reports feel SOB with wheezing, primarily with cough. Denies fevers/chills. Endorses fatigue. Endorses discomfort with cough, no pain at rest or with basic inspiration. Endorses sore throat, nasal congestion. Patient status post hysterectomy. Denies any recent travel. No recent antibiotics. Patient reports that she has a nebulizer at home but does not have medication to fill this. Patient is also active smoker, smokes both marijuana and tobacco. She is requesting a nebulizer treatment at this time. On exam, patient resting comfortably. She appears to be in no acute distress. She does have a deep cough noted. She is clear to auscultation bilaterally. Is noted to be taking fairly shallow breaths. Normal cardiac exam. Abdomen is obese but otherwise benign. As patient has a history of asthma and cough is worsening, plan for imaging and will treat with nebulizer. FINDINGS: Lungs: Unremarkable. No consolidation. Pleural space: Unremarkable. No pleural effusion. No pneumothorax. Heart/Mediastinum: Unremarkable. No cardiomegaly. Bones/joints: Unremarkable. IMPRESSION: No acute findings. Patient feels much improved after nebulizer. Plan to send home with prescription for refills for her. She is endorsing such shortness of breath and increased wheezing from her baseline, will give prednisone. Reviewed increased sputum production and worsening cough, I am concerned for possible infectious etiology of concern particularly given the patient's respiratory history. Will treat with azithromycin and prednisone. We will give her first doses here as pharmacies are now closed. Immediately after taking medications, patient began violently coughing and had repeat episode of emesis at which time all pills came back up. After episode, patient denies any nausea and declines antiemetic, feels that this is all cough induced. She is requesting discharge at this time. Will discharge home with repeat dosing of azithromycin, prednisone and tessalon perles. Patient was given strict return precautions. Advised to follow-up with primary care in 1 week for reevaluation. Encourage hydration. Encourage smoking cessation. All her questions and concerns were addressed and she is in agreement this plan. HPI General Mode of arrival: ambulatory. Date/Time Provider Initiated Documentation: 08/09/19 20:18. Limitations to Documentation: no limitations. Information obtained by: patient and RN notes reviewed. HPI Narrative: Patient is a 29 year with c/c cough that began one week ago. Endorses clear sputum production that is increased from baseline. Denies fevers/chills. States that she has had a few episodes of emesis associated with forcefully coughing. Endorses SOB, feels like her asthma is worsening once again. Endorses discomfort with coughing. No abdominal pain. Endorses sore throat and nasal congestion. Patient is s/p hysterectomy Related Data Home Medications Medication Instructions Recorded Confirmed ibuprofen 600 mg PO TID PRN #20 tab 03/04/19 07/09/19 metformin 500 mg PO HS 07/09/19 08/09/19 albuterol sulfate 2 puff INHALATION QID 08/09/19 08/09/19 albuterol sulfate 2.5 mg IH Q4H PRN #30 each 08/09/19 benzonatate [Tessalon Perles] 100 mg PO TID PRN #14 cap 08/09/19 prednisone 50 mg PO DAILY #4 tab 08/09/19 Previous Rx's Medication Instructions Recorded ibuprofen 600 mg PO TID PRN #20 tab 03/04/19 albuterol sulfate 2.5 mg IH Q4H PRN #30 each 08/09/19 benzonatate [Tessalon Perles] 100 mg PO TID PRN #14 cap 08/09/19 prednisone 50 mg PO DAILY #4 tab 08/09/19 Allergies Allergy/AdvReac Type Severity Reaction Status Date / Time No Known Allergies Allergy Unverified 08/09/19 20:21 General JORGE: 5 Review of Systems Constitutional Constitutional: Reports as per HPI, Denies chills, Reports fatigue, Denies fever(s), Denies headache(s) and Denies poor appetite Eyes Eyes: Reports as per HPI, Denies eye discharge and Denies irritation ENT Ears, Nose, Mouth, and Throat: Reports as per HPI and Denies headache(s) Cardiovascular Cardiovascular: Reports as per HPI, Denies chest pain and Denies dyspnea Respiratory Respiratory: Reports as per HPI, Reports chest congestion, Reports cough, Denies hemoptysis, Denies excessive phlegm production, Denies pain on inspiration, Reports pain with cough, Denies dyspnea, Denies stridor and Reports wheezing (hx of asthma, feels that this is worse) Gastrointestinal Gastrointestinal: Reports as per HPI, Denies abdominal pain, Denies change in bowel habits, Denies nausea and Reports vomiting (associates with coughing) Integumentary/Breasts Skin/Breast: Reports as per HPI and Denies rash Neurologic Neurologic: Reports as per HPI and Denies headache(s) Endocrine Endocrine: Reports fatigue Allergic/Immunologic Allergic/Immunologic: Reports wheezing (hx of asthma, feels that this is worse) [facility] [place] Medical History ADHD (Acute) Anxiety (Chronic) Asthma BMI 45.0-49.9, adult Carpal tunnel syndrome Depression (Chronic) Surgical History Abdominal hysterectomy (09/11/17) Supracervical hysterectomy with unilateral salpingectomy. Ovaries conserved. 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 section 2008, 2010 History of dilation and curettage (Acute) Social History Smoking/Tobacco Use Status: Current every day Tobacco Type: cigarettes Alcohol Intake: current Alcohol Intake frequency: a few times a week Drug use: Occasionally Substance use type: marijuana Do you feel safe at home: Yes Do you feel safe in your relationship?: Yes Exam Const General: cooperative, healthy appearing, comfortable, no acute distress, well developed and well groomed Nutritional Appearance: well nourished and obese Orientation: alert and awake [facility] Head: normal to inspection, normocephalic and atraumatic Ears: hearing grossly normal bilaterally, external ears normal and TM's normal bilaterally General nose exam: external nose normal and nares normal Face and sinus: normal facial exam, sinuses nontender and face symmetric Mouth: oral mucosae normal, lip normal, tongue normal, oropharynx normal and moist mucous membranes Teeth and gingiva: dentition normal Throat: posterior oropharynx normal, tonsils normal and uvula midline Eyes General: appearance normal, both eyes and all related structures Neck Neck: normal visual inspection, full ROM, no lymphadenopathy and no meningeal signs Resp Effort & Inspection: normal respiratory effort, able to speak in complete sentences and no respiratory distress Auscultation: clear to auscultation bilaterally, no rales, no rhonchi and no wheezes Cardio Rate: regular rate Rhythm: regular rhythm Heart Sounds: S1 normal and S2 normal GI Inspection: obesity Palpation: soft, not firm, no guarding, not rigid and nontender Skin General skin exam: no rashes or lesions noted Neuro General: alert and awake Cognition: normal cognition Speech: speech normal Gait: normal gait Psych Appearance: grossly normal and well kempt Mental Status: mental status grossly normal Speech and Movement: speech and movement normal
--- NOTE | 2019-08-09 21:03 | DI.RAD_ITS ---
EXAM: XR CHEST 2V PA LATERAL INDICATION: cough,weakness COMPARISON: XR CHEST 2V PA LATERAL from 07/12/2018 TECHNIQUE: 2D digital imaging was performed. FINDINGS: The lungs are suboptimally inflated. The exam is also limited by the patient's body habitus. The hea rt size is within normal limits. The lungs appear clear. No infiltrate or effusion seen. IMPRESSION: No acute abnormality.
[2019-08-09] MEDS: Albuterol/Ipratropium 3 ML UPD VIAL UPD (21:11)
--- NOTE | 2019-08-09 21:13 | DI.VRAD_ITS ---
PROCEDURE INFORMATION: Exam: XR Chest, 2 Views Exam date and time: 08/09/2019 9:08 PM Age: 29 years old Clinical indication: Cough and shortness of breath; Patient HX: Cough, weakness for week TECHNIQUE: Imaging protocol: XR of the chest Views: 2 views. COMPARISON: CR XR CHEST 2V PA LATERAL 07/12/2018 2:04 PM FINDINGS: Lungs: Unremarkable. No consolidation. Pleural space: Unremarkable. No pleural effusion. No pneumothorax. Heart/Mediastinum: Unremarkable. No cardiomegaly. Bones/joints: Unremarkable. IMPRESSION: No acute findings. Dictated and Authenticated by: Johnson Tello MD. Ordering:RANDI Marion MD
[2019-08-09] MEDS: predniSONE 10 MG TAB 50 MG PO ×2 (21:37→21:52)
[2019-08-09] MEDS: Ibuprofen 600 MG TAB PO (21:37)
[2019-08-09] MEDS: Azithromycin 250 MG TAB 500 MG PO ×2 (21:37→21:52)
[2019-08-09 21:38] VITALS: BP 135/73; PULSE 101; RESP 24; TEMP 36.7; O2SAT 99
--- NOTE | 2019-08-09 21:44 | NUR.NOTE ---
Nursing Note: pt vomited during discharge after large coughing fit. Several pill fragments seen. Provider aware.
[2019-08-09] MEDS: Benzonatate 100 MG CAP 200 MG PO (21:52)
== END 2019-08-09 22:25 | disposition home or self-care (01) ==
PROVIDERS: Emergency Provider Physician Assistant; PCP Specialist/Technologist Athletic Trainer
DX: J06.9 Acute upper respiratory infection, unspecified (principal); J44.0 Chronic obstructive pulmonary disease with (acute) lower respiratory infection; J45.901 Unspecified asthma with (acute) exacerbation; R11.11 Vomiting without nausea; F17.210 Nicotine dependence, cigarettes, uncomplicated
CPT/HCPCS: 94640; 99283; 71046; J7512; J7620

== ENCOUNTER 2019-08-20 16:36 | Emergency (ER) | payer MEDICAID, SELFPAY ==
[2019-08-20 16:39] VITALS: BP 140/92; PULSE 98; RESP 18; TEMP 36.8; O2SAT 97
[2019-08-20] MEDS: Amoxicillin 875/Clav. 125 TAB PO (17:09)
--- NOTE | 2019-08-20 17:13 | ED.GENADUL_ITS ---
Discharge Plan Disposition Patient Disposition: HOME Condition: Good Discharge Details Chief Complaint: RespSymp Clinical Impression: Sinusitis Primary Care Provider: Rip Sanchez ED Provider: Sowmya Gaitan Home Meds and New Rx's Prescriptions: New amoxicillin-pot clavulanate [Augmentin] 875-125 mg tablet 1 tab PO BID Qty: 20 RF: 0 Flonase Sensimist 27.5 mcg/actuation spray,suspension 2 spray STEFAFNIE DAILY Qty: 5.9 RF: 0 No Action ibuprofen 600 mg tablet 600 mg PO TID PRN (Reason: pain) Qty: 20 RF: 0 metformin 500 mg Tablet 500 mg PO HS RF: 0 albuterol sulfate 90 mcg/actuation Hfa Aerosol Inhaler 2 puff INHALATION QID RF: 0 albuterol sulfate 2.5 mg/0.5 mL solution for nebulization 2.5 mg IH Q4H PRN (Reason: bronchospasm) Qty: 30 RF: 0 Discharge Instructions Instructions: Sinusitis (ED) Additional Instructions: Drink plenty of fluids. Use nasal saline rinsing prior to use of your Afrin for the next 2 days. Then switch to Flonase. Prescription provided. Use antibiotic as prescribed. Consider Sudafed [id number]. Rest activities as tolerated. Increase vitamin C. Use your metformin as previously prescribed. Consider lifestyle changes specifically exercising 3 times a week, trying to decrease sugary foods and carbohydrates and focus on trying to lose weight if you would like to discontinue your use of metformin. Do not discontinue metformin unless specified or directed by your doctor. Return for any worsening or concerns sooner if needed Expect improvement in the next 3 to 5 days if not improving have reevaluation with your primary care doctor or return for any worsening or alarming symptoms sooner if needed Medical Decision Making Is a 29-year-old very pleasant woman who presents for concerns of possible sinus infection. Patient reports sinus pain and pressure for the last few days after recently being treated for upper respiratory infection with azithromycin and p rednisone. Patient reports her respiratory symptoms have significantly improved however she reports significant sinus pain and pressure and in the last 24 hours began to develop a fever. Patient is status post a dental extraction approximately 3 weeks ago and was advised there is a possibility of her developing a sinus infection thereafter. Patient reports she has tried several [id number] medications specifically Sudafed as well as Afrin and [id number]-[id number] pain relievers without significant relief. She has been using saline flushes and Harwood pot. Patient denies difficulty breathing shortness of breath or wheezing. On exam patient does have moderate sinus tenderness with palpation, TMs appear normal bilaterally, postnasal drip findings present, breath sounds are clear. Patient's preference is antibiotic treatment at this time. Will treat with Augmentin given patient's recent dental extraction for reasonable dental coverage as well. Patient agrees with plan of care. We discussed symptomatic treatment and conservative treatment specifically rinsing with nasal flushes then use of Afrin for the next 2 days followed by Flonase. Of note patient reports she has been noncompliant with her metformin. Patient has a BMI of 50 and is currently drinking soda. I have discussed lifestyle changes specifically try to increase daily exercise, watch the foods she is eating specifically decreasing sugars and carbohydrates. I have recommended patient continues to use her Metformin until otherwise specified by her doctors. Patient reports her understanding. Feels comfortable discharge at this time. The patient was stable and requested discharge. Prior to discharge, my usual and customary return precautions were reviewed with the patient - this included follow-up instructions and reasons to return to the Emergency Department if conditions worsens, does not improve as expected, or other new concerns arise. HPI General Date/Time Provider Initiated Documentation: 08/20/19 16:46 . HPI Narrative: Is a very pleasant 29-year-old woman who presents for complaints of sinus pain and pressure. Patient reports she had dental extractions several weeks ago was advised that she could get a developing sinus infection after dental extraction. Patient was seen approximately 08/09 for upper respiratory symptoms and was treated with azithromycin as well as prednisone. Patient reports her upper respiratory symptoms significantly improved after use of antibiotic and prednisone however at this time is reporting 3 days of significant sinus pain and pressure. Patient reports sinus pain is on tolerable has been trying nasal decongestants as well as Afrin. Patient has tried Sudafed. Now experiencing increased facial pain and fever which developed yesterday. Patient denies difficulty breathing shortness of breath or wheezing. Patient reports breathing easily with no associated shortness of breath. Patient does report postnasal drip with no significant ear pain. No other concerns or complaints at this time. Of note patient reports she has been noncompliant with metformin. Related Data Home Medications Medication Instructions Recorded Confirmed ibuprofen 600 mg PO TID PRN #20 tab 07/12/19 12/28/19 metformin 500 mg PO HS 07/09/19 08/20/19 albuterol sulfate 2 puff INHALATION QID 08/09/19 08/20/19 albuterol sulfate 2.5 mg IH Q4H PRN #30 each 08/09/19 08/20/19 amoxicillin-pot clavulanate 1 tab PO BID #20 tab 08/20/19 [Augmentin] fluticasone furoate [Flonase 2 spray STEFFANIE DAILY #5.9 ml 08/20/19 Sensimist] Previous Rx's Medication Instructions Recorded ibuprofen 600 mg PO TID PRN #20 tab 03/04/19 albuterol sulfate 2.5 mg IH Q4H PRN #30 each 08/09/19 amoxicillin-pot clavulanate 1 tab PO BID #20 tab 08/20/19 [Augmentin] fluticasone furoate [Flonase 2 spray STEFFANIE DAILY #5.9 ml 08/20/19 Sensimist] Allergies Allergy/AdvReac Type Severity Reaction Status Date / Time No Known Allergies Allergy Unverified 08/20/19 16:47 General Stated Complaint: RespSymp JORGE: 4 Review of Systems All systems reviewed & are unremarkable except as noted in HPI and below Constitutional Constitutional: Reports chills, Denies fatigue, Reports fever(s), Reports headache(s) and Reports malaise ENT Ears, Nose, Mouth, and Throat: Denies otalgia, Reports facial pain, Reports headache(s), Reports nasal congestion, Reports nasal discharge, Reports nasal obstruction, Reports sinus pain and Reports sinus pressure Cardiovascular Cardiovascular: Denies dyspnea and Denies dyspnea on exertion Respiratory Respiratory: Reports cough, Denies pain on inspiration, Denies dyspnea, Denies dyspnea on exertion and Denies wheezing Gastrointestinal Gastrointestinal: Denies abdominal pain, Denies nausea and Denies vomiting Neurologic Neurologic: Reports headache(s) Endocrine Endocrine: Denies fatigue Allergic/Immunologic Allergic/Immunologic: Denies wheezing [facility] Medical History ADHD (Acute) Anxiety (Chronic) Asthma BMI 45.0-49.9, adult Carpal tunnel syndrome Depression (Chronic) Social History Smoking/Tobacco Use Status: Current every day Tobacco Type: cigarettes Alcohol Intake: current Alcohol Intake frequency: a few times a week Drug use: Occasionally Substance use type: marijuana Do you feel safe at home: Yes Do you feel safe in your relationship?: Yes Exam Narrative Exam Narrative: CONST: Healthy appearing patient, in no acute distress. Well hydrated. Alert and alert. HENMT: Head nomocephalic, normal to inspection. Atraumatic. Hearing grossly normal. TMs appear normal bilaterally. Mild pharyngeal erythema and posterior cobblestoning consistent with postnasal drip. Moderate sinus pain bilaterally over the maxillary sinus. EYES: General normal appearance. Alignment normal. Eyelids normal. Conjunctiva normal. NECK: Normal visual inspection. FROM. Trachea midline. No Midline tenderness. No cervical lymphadenopathy present CHEST: Normal insepection of the chest. RESP: Normal respiratory effort. Speaking full sentences. No cough. No audible wheezing. No retractions. CARDIO: No JVD. No murmurs. Regular rate and rhythm. MUSCULOSKELETAL: Normal Gait. FROM of all extremities. Course Vital Signs Vital signs: Vital Signs Temperature 36.8 C 08/20/19 16:39 Pulse 98 H 08/20/19 16:39 Respiratory Rate 18 08/20/19 16:39 Blood Pressure 140/92 H 08/20/19 16:39 Pulse Oximetry 97 08/20/19 16:39 Temperature 36.8 C 08/20/19 16:39 Temperature Source Temporal Artery Scan 08/20/19 16:39 Pulse 98 H 08/20/19 16:39 Respiratory Rate 18 08/20/19 16:39 Respiratory Effort Non-Labored 08/20/19 16:47 Respiratory Depth Normal 08/20/19 16:47 Blood Pressure 140/92 H 08/20/19 16:39 Blood Pressure Position Sitting 08/20/19 16:39 Pulse Oximetry 97 08/20/19 16:39 Oxygen Delivery Method Room Air 08/20/19 16:39 Oxygen Flow Rate 0 08/20/19 16:39 Pain Level 10 08/20/19 16:39
== END 2019-08-20 17:15 | disposition home or self-care (01) ==
PROVIDERS: Emergency Provider Physician Assistant; PCP Specialist/Technologist Athletic Trainer
DX: J01.90 Acute sinusitis, unspecified (principal)
CPT/HCPCS: 99283

== ENCOUNTER 2019-10-03 11:50 | Emergency (ER) | payer MEDICAID, SELFPAY ==
[2019-10-03 12:01] VITALS: BP 126/84; PULSE 80; RESP 20; TEMP 36.6; O2SAT 99
--- NOTE | 2019-10-03 12:22 | ED.GENADUL_ITS ---
Discharge Plan Disposition Patient Disposition: HOME Condition: Stable Discharge Details Chief Complaint: GenMedical Clinical Impression: Cough Primary Care Provider: Rip Sanchez ED Provider: Delmy Pandey Home Meds and New Rx's Prescriptions: New albuterol sulfate 90 mcg/actuation HFA aerosol inhaler 2 puff IH Q6H PRN (Reason: shortness of breath or wheezing) Qty: 6.7 RF: 0 Continued ibuprofen 600 mg tablet 600 mg PO TID PRN (Reason: pain) Qty: 20 RF: 0 metformin 500 mg Tablet 500 mg PO HS RF: 0 albuterol sulfate 90 mcg/actuation Hfa Aerosol Inhaler 2 puff INHALATION QID RF: 0 albuterol sulfate 2.5 mg/0.5 mL solution for nebulization 2.5 mg IH Q4H PRN (Reason: bronchospasm) Qty: 30 RF: 0 Flonase Sensimist 27.5 mcg/actuation spray,suspension 2 spray STEFFANIE DAILY Qty: 5.9 RF: 0 Discharge Instructions Instructions: Albuterol (By breathing), Upper Respiratory Infection (ED), Acute Cough (ED) Additional Instructions: Please return immediately to the emergency department if you develop any new or worsening symptoms, if your condition does not improve as expected, or if you become otherwise concerned. It is extremely important that you call soon as possible to make an appointment to be seen in follow-up for this visit by your primary care doctor. Referrals: Rip Sanchez [Primary Care Provider] - Discharge Data Discharge Date/Time-TO BE ENTERED AT DEPARTURE: 10/03/19 14:02 Medical Decision Making Pam Cortes is a 29 y/o woman with h/o asthma, depression, NIDDM who presented to the emergency department with cough, fever, body aches, nasal congestion. Well and non-toxic appearing on exam without abnormal lung findings. Exam/hx not c/w meningitis, sepsis, pulmonary embolism, ACS, asthma exacerbation, significant metabolic/lyte disturbance. Concern for influenza, other viral respiratory illness, pneumonia, other. Plan for CXR, flu swab. Flu swab and CXR neg. Pt feels comfortable going home. She requests albuterol inhaler rx, as she states hers is about to run out. I had a lengthy discussion with Patient regarding return to emergency department precautions, home care, and importance of outpatient follow-up. Pt verbalizes understanding of the plan and is amenable. Patient discharged to home with clear plan for outpatient follo w-up. All questions were answered. Disposition decision was made weighing the risks and benefits of hospitalization versus outpatient treatment, the risk for further decompensation, and the patient's wishes. Medical Records Medical records reviewed: Yes I reviewed the patient's medical records. Imaging Data Radiologic Study: Attestation: I personally reviewed and interpreted this imaging study as follows: Radiologist's impression: EXAM: XR CHEST 2V PA LATERAL CLINICAL HISTORY: cough TECHNIQUE: 2D digital imaging was performed. COMPARISON: XR CHEST 2V PA LATERAL from 08/09/2019 FINDINGS: The cardiac and mediastinal contours have a normal appearance. The lungs are well inflated and clear. No infiltrate, effusion or pneumothorax is seen. No spine or rib fracture is identified. IMPRESSION: Negative chest x-ray. Lab Data Lab results reviewed: Yes I reviewed the patient's lab results. HPI General Mode of arrival: ambulatory . Date/Time Provider Initiated Documentation: 10/03/19 11:55 . Limitations to Documentation: no limitations . Information obtained by: patient, RN notes reviewed and old records reviewed . HPI Narrative: Pam Lake is a 29 y/o woman with h/o asthma, NIDDM presenting to the emergency department with 5 days of cough, body aches, nasal c ongestion and fever yesterday to 101. Pt reports that yesterday was the only day of fever. She states that she came to the ED concerned for pneumonia after she developed fever. Cough is productive. Pt reports that she has been able to go about her daily activities as usual. Has been eating and drinking as usual. In triage note low back pain documented, I discussed this with the Pt who states to me that she has had generalized aching of her arms, legs, and back with no focal low back pain over the past few days since onset of symptoms. She denies other pain. Denies SOB, vomiting, diarrhea, rash, numbness, focal weakness. No recent travel. Related Data Home Medications Medication Instructions Recorded Confirmed ibuprofen 600 mg PO TID PRN #20 tab 03/04/19 10/03/19 metformin 500 mg PO HS 07/09/19 10/03/19 albuterol sulfate 2 puff INHALATION QID 08/09/19 10/03/19 albuterol sulfate 2.5 mg IH Q4H PRN #30 each 08/09/19 10/03/19 Flonase Sensimist 2 spray STEFFANIE DAILY #5.9 ml 08/20/19 10/03/19 albuterol sulfate 2 puff IH Q6H PRN #6.7 gm 10/03/19 Previous Rx's Medication Instructions Recorded ibuprofen 600 mg PO TID PRN #20 tab 03/04/19 albuterol sulfate 2.5 mg IH Q4H PRN #30 each 08/09/19 Flonase Sensimist 2 spray STEFFANIE DAILY #5.9 ml 08/20/19 albuterol sulfate 2 puff IH Q6H PRN #6.7 gm 10/03/19 Allergies Allergy/AdvReac Type Severity Reaction Status Date / Time No Known Allergies Allergy Unverified 10/03/19 12:04 General Stated Complaint: GenMedical JORGE: 3 Review of Systems Narrative: Constitutional: reports fever yesterday Eyes: denies eye pain ENT: denies ear pain, dental pain, sore throat Cardiovascular: denies chest pain Respiratory: denies SOB, reports cough GI: denies abdominal pain, vomiting, diarrhea : denies flank pain MSK: reports generalized back pain, arthralgias, myalgias, denies neck pain Skin: denies rash Neuro: denies headaches, numbness, weakness PFSH Medical History ADHD (Acute) Anxiety (Chronic) Asthma BMI 45.0-49.9, adult Carpal tunnel syndrome Depression (Chronic) Social History Smoking/Tobacco Use Status: Current every day Tobacco Type: cigarettes Alcohol Intake: current Alcohol Intake frequency: a few times a week Drug use: Occasionally Substance use type: marijuana Do you feel safe at home: Yes Do you feel safe in your relationship?: Yes Exam Narrative Exam Narrative: Constitutional: well and [id number], pleasant, conversing normally HENT: head atraumatic/normocephalic/normal inspection, mucous membranes moist, oropharynx without erythema/edema/exudate or intraoral lesion Eyes: conjunctiva normal, sclera normal, pupils 3mm b/l Neck: no stridor, normal ROM, trachea midline Chest: normal inspection Resp: normal work of breathing, LCTAB Cardio: normal rate, normal rhythm, no murmur appreciated GI: abdomen soft, non-tender, non-distended Back: normal inspection, no rash Skin: warm, dry, normal color, no rash Neuro: alert, not altered, grossly non-focal, normal tone Ext: no edema, no posterior calf TTP Psych: normal mood, normal affect, normal behavior Course Vital Signs Vital signs: Vital Signs Temperature 36.6 C 10/03/19 12:01 Pulse 80 10/03/19 12:01 Respiratory Rate 20 10/03/19 12:01 Blood Pressure 126/84 10/03/19 12:01 Pulse Oximetry 99 10/03/19 12:01 Temperature 36.6 C 10/03/19 12:01 Temperature Source Temporal Artery Scan 10/03/19 12:01 Pulse 80 10/03/19 12:01 Respiratory Rate 20 10/03/19 12:01 Respiratory Effort 10/03/19 12:06 Blood Pressure 126/84 10/03/19 12:01 Blood Pressure Position Sitting 10/03/19 12:01 Pulse Oximetry 99 10/03/19 12:01 Oxygen Delivery Method Room Air 10/03/19 12:01 Oxygen Flow Rate 0 10/03/19 12:01 Pain Level 6 10/03/19 12:01
[2019-10-03 12:52] VITALS: RESP 20
--- NOTE | 2019-10-03 13:21 | DI.RAD_ITS ---
EXAM: XR CHEST 2V PA LATERAL CLINICAL HISTORY: cough TECHNIQUE: 2D digital imaging was performed. COMPARISON: XR CHEST 2V PA LATERAL from 08/09/2019 FINDINGS: The cardiac and mediastinal contours have a normal appearance. The lungs are well inflated and clear . No infiltrate, effusion or pneumothorax is seen. No spine or rib fracture is identified. IMPRESSION: Negative chest x-ray.
== END 2019-10-03 14:02 | disposition home or self-care (01) ==
PROVIDERS: Emergency Provider Student in an Organized Health Care Education/Training Program; PCP Specialist/Technologist Athletic Trainer
DX: R05 Cough (principal); J06.9 Acute upper respiratory infection, unspecified; J45.909 Unspecified asthma, uncomplicated; E11.9 Type 2 diabetes mellitus without complications; Z79.84 Long term (current) use of oral hypoglycemic drugs; F17.210 Nicotine dependence, cigarettes, uncomplicated
CPT/HCPCS: 81025; 87449; 99283; 71046; 81003; 99284

== ENCOUNTER 2019-11-14 13:01 | Outpatient (REF) | payer MEDICAID, SELFPAY ==
[2019-11-14 18:59] LABS: HCT 41.5 % (36.0-46.0); HGB 13.8 g/dL (12.0-15.5); Mean Corp. HGB Concentration 33.3 g/dL (32.0-36.0); Mean Corpuscular Hemoglobin 28.6 pg (27.0-33.0); Mean Corpuscular Volume 86.1 fL (80-95); Mean Platelet Volume 8.8 fL (8.0-11.0); Platelet Count 330 x1000/uL (130-400); RBC 4.82 m/cumm (4.00-5.20); RBC Distribution Width 13.1 % (11.7-14.6); White Blood Cell Count 7.14 k/cumm (4.4-10.8)
[2019-11-14 19:28] LABS: ALT 49 U/L (14-59); AST 16 U/L (15-37); Albumin 3.7 g/dL (3.4-5.0); Alkaline Phosphatase 77 U/L (46-116); Anion Gap 8.9 mmol/L (3-11); BUN 11 mg/dL (7-18); Bilirubin, Total 0.3 mg/dL (0.2-1.0); CO2 27.1 mmol/L (21.0-32.0); CREATININE 0.88 mg/dL (0.55-1.02); Calcium 8.8 mg/dL (8.5-10.1); Chloride 100 mmol/L (98-107); Glucose 327 mg/dL (74-106); Sodium 136 mmol/L (136-145); TSH (W/Ref FT4) 1.16 uIU/mL (0.36-3.74); Total Protein 7.6 g/dL (6.4-8.2)
== END 2019-11-14 13:21 ==
LOC: NCHCN 13:01
PROVIDERS: PCP Specialist/Technologist Athletic Trainer; Visit Provider Nurse Practitioner Family
DX: J45.20 Mild intermittent asthma, uncomplicated (principal); E11.9 Type 2 diabetes mellitus without complications; R07.9 Chest pain, unspecified
CPT/HCPCS: 80053; 85027; 84443

== ENCOUNTER 2020-03-28 05:37 | Emergency (ER) | payer MEDICAID, SELFPAY ==
[2020-03-28 05:40] VITALS: BP 122/94; PULSE 96; RESP 16; TEMP 36.7; O2SAT 97
--- NOTE | 2020-03-28 05:54 | ED.GENADUL_ITS ---
Discharge Plan Disposition Patient Disposition: HOME Condition: Good Discharge Details Chief Complaint: Urinary Clinical Impression: UTI (urinary tract infection) Primary Care Provider: Rip Sanchez ED Provider: Marques Ortiz [place] Meds and New Rx's Prescriptions: New nitrofurantoin monohyd/m-cryst [Macrobid] 100 mg capsule 100 mg PO Q12H Qty: 9 RF: 0 phenazopyridine [Pyridium] 100 mg tablet 100 mg PO TID Qty: 5 RF: 0 Continued metformin 500 mg Tablet 500 mg PO HS RF: 0 albuterol sulfate 2.5 mg/0.5 mL solution for nebulization 2.5 mg IH Q4H PRN (Reason: bronchospasm) Qty: 30 RF: 0 albuterol sulfate 90 mcg/actuation HFA aerosol inhaler 2 puff IH Q6H PRN (Reason: shortness of breath or wheezing) Qty: 6.7 RF: 0 Discharge Instructions Instructions: Urinary Tract Infection in Women (ED) Additional Instructions: Please take medication as prescribed. If continued symptoms at the end of course of antibiotics follow-up with primary care for reevaluation. Return to ED if you develop spiking high fever, vomiting, flank/back pain, worsening abdominal pain. Referrals: Rip Sanchez [Primary Care Provider] - Medical Decision Making Patient presenting with dysuria, urgency, hematuria all consistent with UTI. She has no fever, back/flank pain, abdominal pain, vomiting. She has some suprapubic discomfort and urgency. Urine sent but given symptoms will start on Pyridium and Macrobid. Follow-up with primary care next week if not better. Return to ED for fever, back pain, vomiting, abdominal pain. HPI General Mode of arrival: ambulatory . Date/Time Provider Initiated Documentation: 03/28/20 05:53 . Limitations to Documentation: no limitations . Information obtained by: patient and RN notes reviewed . HPI Narrative: Patient presents to ED with dysuria, frequent urination, and suprapubic discomfort that started last night. She has also noticed blood-tinged urine. She denies fever, chills, back pain, abdominal pain, vomiting. She denies urinary tract infections in the past. She is status post hysterectomy. Related Data Home Medications Medication Instructions Recorded Confirmed metformin 500 mg PO HS 07/09/19 03/28/20 albuterol sulfate 2.5 mg IH Q4H PRN #30 each 08/09/19 03/28/20 albuterol sulfate 2 puff IH Q6H PRN #6.7 gm 10/03/19 03/28/20 nitrofurantoin monohyd/m-cryst 100 mg PO Q12H #9 cap 03/28/20 [Macrobid] phenazopyridine [Pyridium] 100 mg PO TID #5 tab 03/28/20 Previous Rx's Medication Instructions Recorded albuterol sulfate 2.5 mg IH Q4H PRN #30 each 08/09/19 albuterol sulfate 2 puff IH Q6H PRN #6.7 gm 10/03/19 nitrofurantoin monohyd/m-cryst 100 mg PO Q12H #9 cap 03/28/20 [Macrobid] phenazopyridine [Pyridium] 100 mg PO TID #5 tab 03/28/20 Allergies Allergy/AdvReac Type Severity Reaction Status Date / Time No Known Allergies Allergy Unverified 10/03/19 12:04 General Stated Complaint: Urinary JORGE: 4 Review of Systems Constitutional Constitutional: Denies chills and Denies fever(s) Gastrointestinal Gastrointestinal: Denies abdominal pain, Denies nausea and Denies vomiting Genitourinary Genitourinary: Reports hematuria, Reports dysuria and Reports urinary urgency [facility] Medical History ADHD (Acute) Anxiety (Chronic) Asthma BMI 45.0-49.9, adult Carpal tunnel syndrome Depression (Chronic) Surgical History Abdominal hysterectomy (09/11/17) Supracervical hysterectomy with unilateral salpingectomy. Ovaries conserved. 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 section 2008, 2010 History of dilation and curettage (Acute) Social History Smoking/Tobacco Use Status: Current every day Tobacco Type: cigarettes Alcohol Intake: current Alcohol Intake frequency: a few times a week Drug use: Occasionally Substance use type: marijuana Do you feel safe at home: Yes Do you feel safe in your relationship?: Yes Exam Const General: cooperative and no acute distress Nutritional Appearance: obese HENMT Head: normocephalic and atraumatic Neck Neck: trachea midline and supple Resp Effort & Inspection: normal respiratory effort Back/Spine/Pelvis Back: no CVA tenderness Neuro General: patient alert, patient oriented x3, gait normal and no focal motor deficits Course Vital Signs Vital signs: Vital Signs Temperature 98.1 F 03/28/20 05:40 Pulse 96 H 03/28/20 05:40 Respiratory Rate 16 03/28/20 05:40 Blood Pressure 122/94 H 03/28/20 05:40 Pulse Oximetry 97 03/28/20 05:40 Temperature 98.1 F 03/28/20 05:40 Temperature Source Skin 03/28/20 05:40 Pulse 96 H 03/28/20 05:40 Respiratory Rate 16 03/28/20 05:40 Blood Pressure 122/94 H 03/28/20 05:40 Blood Pressure Position Sitting 03/28/20 05:40 Pulse Oximetry 97 03/28/20 05:40 Oxygen Delivery Method Room Air 03/28/20 05:40 Oxygen Flow Rate 0 03/28/20 05:40 Pain Level 8 03/28/20 05:40
[2020-03-28] MEDS: Phenazopyridine 100 MG TAB PO (06:05)
[2020-03-28] MEDS: MacroBID 100 MG CAP PO (06:05)
[2020-03-28 06:17] LABS: Bilirubin Small (Negative); Blood Large (Negative); Clarity Cloudy (Clear); Glucose 100 mg/dL (Negative); Ketones Negative (Negative); Leukocyte Esterase Trace (Negative); Nitrite Positive (Negative); Specific Gravity >= 1.030 (1.005-1.025)
[2020-03-28 06:29] LABS: WBC >50 HPF (0-5)
[2020-03-28 06:31] LABS: C & S Indicated? No
== END 2020-03-28 06:00 | disposition home or self-care (01) ==
LOC: ER 06:16
PROVIDERS: Emergency Provider Emergency Medicine; PCP Specialist/Technologist Athletic Trainer
DX: N39.0 Urinary tract infection, site not specified (principal)
CPT/HCPCS: 99283; 81003; 81015

== ENCOUNTER 2020-05-02 11:57 | Outpatient (REF) | payer MEDICAID, SELFPAY ==
--- NOTE | 2020-05-02 11:15 | PAPFT_PTH ---
PATIENT: Pam Lake LOC: N U#:[id number] AGE/SX: 30/F ROOM: RE05/02/[address]: Kylie Cruz NP : 1990 BED: DIS: 05/02/2020 SPEC #: [id number] RECD: 05/02/20 13:01 STATUS: SHANITA REShira #: [id number] NATO: 05/02/20 11:[address]: Kylie Cruz NP DEPT: [facility] Cytology RECD BY: Norma Arriaga ENTERED: 05/02/20 13:03 SP TYPE: PAPFT OTHR DR: Rip Sanchez Tissues: 1 - CX/ENDOCX FOR PAP SMEARS Procedures: PAP THIN PREP/[facility] Screening Comments: [id number]
== END 2020-05-02 12:17 ==
LOC: LBN 11:57
PROVIDERS: PCP Specialist/Technologist Athletic Trainer; Visit Provider Nurse Practitioner Women's Health
DX: R87.618 Other abnormal cytological findings on specimens from cervix uteri (principal); Z12.4 Encounter for screening for malignant neoplasm of cervix
CPT/HCPCS: 88142

== ENCOUNTER 2020-06-18 09:08 | Emergency (ER) | payer MEDICAID, SELFPAY ==
[2020-06-18] VITALS (18 sets, daily range): BP systolic 99–129; BP diastolic 66–83; PULSE 58–126; RESP 10–22; TEMP 36.5–36.8; O2SAT 98–100
--- NOTE | 2020-06-18 10:00 | DI.RAD_ITS ---
EXAM: XR PORTABLE CHEST AP CLINICAL HISTORY: cough. TECHNIQUE: 2D digital imaging was performed. COMPARISON: CR XR CHEST 2V PA LATERAL from 10/03/2019 FINDINGS: LUNGS: Clear. No pleural abnormality seen. HEART: Normal. MEDIASTINUM: Normal. OTHER FINDINGS: None. IMPRESSION: No acute pulmonary findings. DATA REPOSITORY: RADIATION DOSE DELIVERED: Total DLP
[2020-06-18] MEDS: Normal Saline 1,000 ML 1000 ML IV (10:55)
--- NOTE | 2020-06-18 10:57 | W.ED.GENAD ---
Discharge Plan Disposition Patient Disposition: HOME Condition: Stable Discharge Details Clinical Impression: Cough Primary Care Provider: Rip Sanchez ED Provider: Yinka Tavera Home Meds and New Rx's Prescriptions: Continued metformin 500 mg Tablet 500 mg PO HS RF: 0 albuterol sulfate 2.5 mg/0.5 mL solution for nebulization 2.5 mg IH Q4H PRN (Reason: bronchospasm) Qty: 30 RF: 0 albuterol sulfate 90 mcg/actuation HFA aerosol inhaler 2 puff IH Q6H PRN (Reason: shortness of breath or wheezing) Qty: 6.7 RF: 0 Discharge Instructions Instructions: Acute Cough (ED) Additional Instructions: At this time your blood work, flu swab, chest x-ray are all unremarkable. No clear indication to treat with antibiotic therapy. As we discussed [id number] medication for symptomatic control. Plenty of fluids to avoid dehydration. I cannot stress the importance of being compliant with your medications. Covid test is pending, as we discussed this may take nearly a week to return and you should be quarantining while this is pending given your symptoms and recent travel. I do recommend that you await your negative Covid test and then cleared to return to work by your primary care provider. Please watch for new or worsening symptoms and return to the ER for any concerns. Stand Alone Forms: POSITIVE COVID-19/TO BE TESTED, Work Release Medical Decision Making 30-year-old noncompliant diabetic patient, current smoker, history of asthma, presents to the ER after travel down to [place] in [place] complaining of general malaise, body aches, dry cough, chills, headache, inability to smell. Clinically she appears well, nontoxic. Blood pressure 109/78, pulse of 75. She is afebrile at 36.5 and O2 sats are 98% on room air. During her examination she does have a dry cough but certainly no respiratory distress. Her initial evaluation is unremarkable except for the dry cough as already noted. Given her subjective complaints I do believe establish an IV, getting IV fluid for potential hyperglycemia and dehydration, obtaining CBC, CMP, urinalysis, flu and Covid are all reasonable. Flu is being obtained given her recent travel, history of diabetes and asthma, known noncompliance. Patient was evaluated in room 3 and is a person of interest. Initial evaluation reveals a white blood cell count of 7.08 hemoglobin 14.3 hematocrit 44.2, platelet count 289. Electrolytes are unremarkable. Anion gap 2.3, creatinine 0.81 with a GFR greater than 60. Glucose 128. LFTs unremarkable. Urinalysis reveals trace blood, negative nitrate, trace leuk esterase, 10-20 red and white cells, few epithelial cells, many bacteria. Culture indicated. Patient has no urinary symptoms, will not treat as urinary tract infection. Flu a and B-. Chest x-ray read by radiology is unremarkable. Covid pending. Patient requesting lunch, able to eat lunch without difficulty. Upon reevaluation she is resting comfortably, no acute distress. She remains hemodynamically stable. At one point patient was crying, hyperventilating, upset regarding the need to quarantine because of possible Covid and the potential that she would lose her job. She was assured that I would give her a work note. I do believe that during this time. Her vital signs were not accurate. Repeat vital signs reveal blood pressure 124/69. Pulse of 75. She remains afebrile. O2 sats 98% on room air. Work-up in the ER does not reveal any clear indication to initiate antibiotic therapy. Urine culture is pending, she has no abdominal pain, dysuria or frequency. Given her recent travel, symptoms, Covid is certainly a realistic diagnosis. We discussed the importance of quarantining and that currently the Covid test are taking nearly a week or so to return. We discussed the importance of being compliant with her medications. Patient has no additional questions or concerns and is comfortable discharge at this time. Medical Records Medical records reviewed: Yes I reviewed the patient's medical records. Imaging Data Radiologic Study: Attestation: I personally reviewed and interpreted this imaging study as follows: Imaging: X-Ray Radiologist's impression: Chest x-ray negative Lab Data Lab results narrative: 06/18/20 11:15 Urine - Reflex from Ua Urine Culture - Pending 06/18/20 10:45 Nasopharynx Influenza Types A,B Antigen - Final Laboratory Tests Range/Units 06/18/20 06/18/20 06/18/20 10:50 10:50 11:15 WBC (4.4-10.8) 10^3/uL 7.08 RBC (3.93-5.22) 10^6/uL 5.03 Hgb (11.2-15.7) g/dL 14.3 Hct (36.0-46.0) % 44.2 MCV (80-95) fL 87.9 MCH (27.0-33.0) pg 28.4 MCHC (32.0-36.0) % 32.4 RDW (11.7-14.6) % 12.9 Plt Count (130-400) 10^3/uL 289 MPV (8.0-11.0) fL 8.2 Immature Gran % 0.4 Neutrophils % 59.9 Lymphocytes % 31.2 Monocytes % 7.1 Eosinophils % 1.0 Basophils % 0.4 Nucleated RBC % % 0 Absolute Neutrophils (1.2-6.7) 10^3/uL 4.24 Absolute Lymphocytes (1.2-3.4) 10^3/uL 2.21 Absolute Monocytes (0.1-0.8) 10^3/uL 0.50 Absolute Eosinophils (0.0-0.7) 10^3/uL 0.07 Absolute Basophils (0.0-0.2) 10^3/uL 0.03 Sodium (136-145) mmol/L 138 Potassium (3.5-5.1) mmol/L 4.4 Chloride (98-107) mmol/L 105 Carbon Dioxide (21.0-32.0) mmol/L 30.7 Anion Gap (3-11) mmol/L 2.3 L BUN (7-18) mg/dL 10 Creatinine (0.55-1.02) mg/dL 0.81 Estimated GFR/1.73 m2 (mL/min/1.73m2) >= 60.00 Glucose (74-106) mg/dL 128 H Calcium (8.5-10.1) mg/dL 8.7 Total Bilirubin (0.2-1.0) mg/dL 0.3 AST (15-37) U/L 16 ALT (14-59) U/L 38 Alkaline Phosphatase (46-116) U/L 65 Total Protein (6.4-8.2) g/dL 7.6 Albumin (3.4-5.0) g/dL 3.7 Urine Color (Yellow) Yellow Urine Clarity (Clear) Clear Urine pH (5-8) 7.0 Ur Specific [place] (1.005-1.025) 1.025 Urine Protein (Negative) mg/dL Negative Urine Ketones (Negative) mg/dL Negative Urine Blood (Negative) Trace-intact H Urine Nitrite (Negative) Negative Urine Bilirubin (Negative) Negative Urine Urobilinogen (Up TO 0.2) EU/dL 1.0 H Ur Leukocyte Esterase (Negative) Trace H Urine RBC (0-2) HPF 10-20 H Urine WBC (0-5) HPF 10-20 H Ur Epithelial Cells (Negative) HPF Few Urine Crystals (Negative) HPF Negative Urine Bacteria (Negative) HPF Many Urine Casts (Negative) LPF Negative Urine Mucus (Negative) Trace Ur Culture Indicated? Yes Urine Glucose (Negative) mg/dL Negative HPI General Mode of arrival: ambulatory. Date/Time Provider Initiated Documentation: 06/18/20 09:10. Limitations to Documentation: no limitations. Information obtained by: patient. HPI Narrative: This is a 30-year-old female with past medical history of hypertension, asthma, obesity, ADHD, anxiety, current smoker, presenting to the ER reporting that she has not felt well for 4-5 days. General fatigue, body aches, dry cough, headache, chest tightness which she describes is improved with her inhalers. She traveled to [place] last week, went out in public places, then travel to [place] and again when out in public places there. She denies any obvious known sick contacts. She reports a history of bronchitis and pneumonia. She states that her smell is decreased and she is unable to tell if her taste has changed at all. She denies any known fever, neck pain, chest pain, productive cough, abdominal pain, skin rash, dysuria, diarrhea. She states that she has been using her asthma medications as directed regularly but has not taken her Metformin in over a month because she forgets every day. Related Data Home Medications Medication Instructions Recorded Confirmed metformin 500 mg PO HS 07/09/19 06/18/20 albuterol sulfate 2.5 mg IH Q4H PRN #30 each 08/09/19 06/18/20 albuterol sulfate 2 puff IH Q6H PRN #6.7 gm 10/03/19 06/18/20 Previous Rx's Medication Instructions Recorded albuterol sulfate 2.5 mg IH Q4H PRN #30 each 08/09/19 albuterol sulfate 2 puff IH Q6H PRN #6.7 gm 10/03/19 Allergies Allergy/AdvReac Type Severity Reaction Status Date / Time No Known Allergies Allergy Unverified 06/18/20 09:41 General Stated Complaint: RespSymp JORGE: 3 Review of Systems Constitutional Constitutional: Reports fatigue, Denies fever(s) and Reports headache(s) Eyes Eyes: Denies eye discharge ENT Ears, Nose, Mouth, and Throat: Reports headache(s), Reports nasal discharge and Denies sore throat Cardiovascular Cardiovascular: Denies chest pain and Denies dyspnea Respiratory Respiratory: Reports cough and Denies dyspnea Gastrointestinal Gastrointestinal: Denies abdominal pain, Denies nausea and Denies vomiting Genitourinary Genitourinary: Denies dysuria Musculoskeletal Musculoskeletal: Reports back pain Integumentary/Breasts Skin/Breast: Denies rash Neurologic Neurologic: Reports headache(s) Endocrine Endocrine: Reports fatigue [facility] Medical History (Updated 06/18/20 @ 11:57 by PRASHANTH Palencia) ADHD Anxiety Asthma BMI 45.0-49.9, adult Carpal tunnel syndrome Depression Surgical History Abdominal hysterectomy (09/11/17) Supracervical hysterectomy with unilateral salpingectomy. Ovaries conserved. 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 section 2010 History of dilation and curettage Social History Smoking/Tobacco Use Status: Current every day Tobacco Type: cigarettes Alcohol Intake: current Alcohol Intake frequency: a few times a week Drug use: Daily Substance use type: marijuana Do you feel safe at home: Yes Do you feel safe in your relationship?: Yes Exam Const General: cooperative, healthy appearing, comfortable and no acute distress Orientation: alert, awake and oriented x3 HENMT Head: normal to inspection, normocephalic and atraumatic Ears: external ears normal, TM's normal bilaterally and EAC's normal General nose exam: external nose normal Face and sinus: normal facial exam Mouth: moist mucous membranes Throat: posterior oropharynx normal Eyes General: appearance normal, both eyes and all related structures Alignment and Position: alignment normal Periorbital: periorbital findings normal Eyelids: eyelids normal Conjunctivae: conjunctivae normal Sclera: sclerae normal Cornea: corneas normal Pupils: PERRL EOM: EOM intact bilaterally Direct ophthalmoscopy: normal light reflex Neck Neck: normal visual inspection, full ROM, no lymphadenopathy, no meningeal signs, trachea midline, supple and nontender Resp Effort & Inspection: normal respiratory effort, able to speak in complete sentences and cough Quality of cough: dry Auscultation: clear to auscultation bilaterally Cardio Rate: regular rate Rhythm: regular rhythm GI Inspection: obesity Palpation: soft and nontender Back/Spine/Pelvis Back: No back tenderness Skin General skin exam: no rashes or lesions noted Neuro General: patient alert, patient awake, moves all extremities and no focal motor deficits Cognition: normal cognition Speech: speech normal Gait: normal gait Motor: muscle tone normal throughout Sensory Exam: no sensory deficits noted Extrem General: normal to inspection, full ROM, capillary refill normal, no pedal edema and no calf tenderness Psych Appearance: grossly normal Mental Status: mental status grossly normal Course Vital Signs Vital signs: Vital Signs Temperature 36.5 C 06/18/20 09:32 Pulse 75 06/18/20 09:32 Respiratory Rate 11 L 06/18/20 09:32 Blood Pressure 109/78 06/18/20 09:32 Pulse Oximetry 98 06/18/20 09:32 Temperature 36.5 C 06/18/20 09:32 Temperature Source Skin 06/18/20 09:32 Pulse 75 06/18/20 09:32 Respiratory Rate 11 L 06/18/20 09:32 Respiratory Effort Non-Labored 06/18/20 09:44 Respiratory Depth Normal 06/18/20 09:44 Blood Pressure 109/78 06/18/20 09:32 Pulse Oximetry 98 06/18/20 09:32 Oxygen Delivery Method Room Air 06/18/20 09:32 Oxygen Flow Rate 0 06/18/20 09:32 Pain Level 4 06/18/20 09:32 Lab/Test Results Lab/Test Results: 06/18/20 10:45 Nasopharynx Influenza Types A,B Antigen - Pending
[2020-06-18 11:01] LABS: Abs Immature Grans 0.03 10^3/uL (0.0-0.06); Absolute Basophil Count 0.03 10^3/uL (0.0-0.2); Absolute Eosinophil Count 0.07 10^3/uL (0.0-0.7); Absolute Lymphocyte Count 2.21 10^3/uL (1.2-3.4); Absolute Neutrophil Count 4.24 10^3/uL (1.2-6.7); Basophils % 0.4; HCT 44.2 % (36.0-46.0); HGB 14.3 g/dL (11.2-15.7); Immature Grans % 0.4; Lymphocytes % 31.2; MCH 28.4 pg (27.0-33.0); MCHC 32.4 % (32.0-36.0); MCV 87.9 fL (80-95); MPV 8.2 fL (8.0-11.0); Monocytes % 7.1; Neutrophils % 59.9; Nucleated RBC 0 %; Platelet Count 289 10^3/uL (130-400); RBC 5.03 10^6/uL (3.93-5.22); RDW 12.9 % (11.7-14.6); RDW-SD 41.3 fL; WBC 7.08 10^3/uL (4.4-10.8)
[2020-06-18] MEDS: Normal Saline Flush 10 ML SYR IVP (11:02)
[2020-06-18 11:15] LABS: ALT 38 U/L (14-59); AST 16 U/L (15-37); Albumin 3.7 g/dL (3.4-5.0); Alkaline Phosphatase 65 U/L (46-116); Anion Gap 2.3 mmol/L (3-11); BUN 10 mg/dL (7-18); Bilirubin, Total 0.3 mg/dL (0.2-1.0); CO2 30.7 mmol/L (21.0-32.0); CREATININE 0.81 mg/dL (0.55-1.02); Calcium 8.7 mg/dL (8.5-10.1); Chloride 105 mmol/L (98-107); Glucose 128 mg/dL (74-106); Potassium 4.4 mmol/L (3.5-5.1); Sodium 138 mmol/L (136-145); Total Protein 7.6 g/dL (6.4-8.2)
[2020-06-18 11:33] LABS: Bilirubin Negative (Negative); Blood Trace-intact (Negative); Clarity Clear (Clear); Glucose Negative (Negative); Ketones Negative (Negative); Leukocyte Esterase Trace (Negative); Nitrite Negative (Negative); Specific Gravity 1.025 (1.005-1.025)
[2020-06-18 11:44] LABS: Bacteria Many HPF (Negative); C & S Indicated? Yes; Casts Negative LPF (Negative); Crystals Negative HPF (Negative); Epithelial Cells Few HPF (Negative); Mucus Trace (Negative)
[2020-06-21 00:08] LABS: SARS-CoV-2 RNA Undetected (Undetected); SARS-CoV-2 Specimen Source Nasopharynx
== END 2020-06-18 12:32 | disposition home or self-care (01) ==
PROVIDERS: Emergency Provider Physician Assistant; PCP Specialist/Technologist Athletic Trainer
DX: R05 Cough (principal); Z11.59 Encounter for screening for other viral diseases; I10 Essential (primary) hypertension; E11.9 Type 2 diabetes mellitus without complications; Z91.19 Patient's noncompliance with other medical treatment and regimen; Z79.84 Long term (current) use of oral hypoglycemic drugs
CPT/HCPCS: 80053; 87077; 87449; 96360; 99284; U0003; 71045; 81003; 81015; 85025; 87086; 87186

== ENCOUNTER 2020-07-06 14:28 | Emergency (ER) | payer MEDICAID, SELFPAY ==
[2020-07-06 14:52] LABS: Bilirubin Negative (Negative); Blood Moderate (Negative); Clarity Clear (Clear); Glucose Negative (Negative); Ketones Negative (Negative); Leukocyte Esterase Small (Negative); Nitrite Negative (Negative); Specific Gravity 1.025 (1.005-1.025); pH 6.5 (5-8)
--- NOTE | 2020-07-06 14:57 | ED.GENADUL_ITS ---
Discharge Plan Disposition Patient Disposition: HOME Condition: Stable Discharge Details Clinical Impression: UTI (urinary tract infection) Primary Care Provider: Rip Sanchez ED Provider: Shea Bacon Home Meds and New Rx's Prescriptions: New cephalexin 500 mg tablet 500 mg PO BID 7 Days Qty: 14 RF: 0 No Action metformin 500 mg Tablet 500 mg PO HS RF: 0 albuterol sulfate 2.5 mg/0.5 mL solution for nebulization 2.5 mg IH Q4H PRN (Reason: bronchospasm) Qty: 30 RF: 0 albuterol sulfate 90 mcg/actuation HFA aerosol inhaler 2 puff IH Q6H PRN (Reason: shortness of breath or wheezing) Qty: 6.7 RF: 0 Discharge Instructions Instructions: Urinary Tract Infection in Women (ED) Additional Instructions: Follow up with primary care provider in 3-5 days. Return to ED sooner if any worsening or concerns. Increase oral fluids. Please take Tylenol or Ibuprofen with food every 4-6 hours as needed for pain and swelling. Take antibiotic as prescribed. Return for any vomiting, fever, or worsening. At this time your cultures are pending, you will be notified if you need to be on any different antibiotics. Stand Alone Forms: Work Release Referrals: Rip Sanchez [Primary Care Provider] - Discharge Data Discharge Date/Time-TO BE ENTERED AT DEPARTURE: 07/06/20 16:30 Medical Decision Making 30-year-old female presents to the ER chief complaint of dysuria and lower back pain x24 hours. Patient is concerned for UTI and STDs. She reports having recent unprotected intercourse. She denies change in hearing medications prior to arrival. She does have a history of a PE, anxiety, obesity, abdominal hysterectomy, . 1638: Pelvic exam performed with Jennifer FAY as witness, patient tolerated well. No vaginal discharge, no cervical motion tenderness. Vaginal pathogen screen and gonorrhea chlamydia cultures obtained and are pending at this time. Urinalysis shows evidence of UTI, moderate blood, small leukocytes, 5-10 RBCs greater than 50 WBCs, culture is pending at this time. I will cover her with antibiotics for a UTI. HPI General Mode of arrival: ambulatory . Date/Time Provider Initiated Documentation: 07/06/20 14:29 . Limitations to Documentation: no limitations . Information obtained by: patient . HPI Narrative: 30-year-old female presents to the ER chief complaint of dysuria and lower back pain x24 hours. Patient is concerned for UTI and STDs. She reports having recent unprotected intercourse. She denies change in hearing medications prior to arrival. She does have a history of a PE, anxiety, obesity, abdominal hysterectomy, . Related Data Home Medications Medication Instructions Recorded Confirmed metformin 500 mg PO HS 07/09/19 06/18/20 albuterol sulfate 2.5 mg IH Q4H PRN #30 each 08/09/19 07/06/20 albuterol sulfate 2 puff IH Q6H PRN #6.7 gm 10/03/19 07/06/20 cephalexin 500 mg PO BID 7 Days #14 tab 07/06/20 Previous Rx's Medication Instructions Recorded albuterol sulfate 2.5 mg IH Q4H PRN #30 each 08/09/19 albuterol sulfate 2 puff IH Q6H PRN #6.7 gm 10/03/19 cephalexin 500 mg PO BID 7 Days #14 tab 07/06/20 Allergies Allergy/AdvReac Type Severity Reaction Status Date / Time No Known Allergies Allergy Unverified 06/18/20 09:41 General Stated Complaint: Urinary JORGE: 3 Review of Systems Narrative: Constitutional: Negative for weight loss, alert and oriented, well groomed, normal body habitus, appears comfortable. HEENT: Denies trauma, headaches, blurry vision, nasal discharge, sore throat, trouble swallowing. Chest: Denies chest pain, palpitations, irregular rhythm, hypertension. Respiratory: Denies Shortness of breath, cough, hemoptysis. GI: Denies abdominal pain, nausea, vomiting, diarrhea, constipation. : Denies rectal bleeding. Positive dysuria, hematuria and flank pain. Neuro: Denies dizziness, blurry vision, weakness, syncope, headache or facial numbness. Hematologic: Denies easy bruising, intolerance to heat or cold, hair loss. [facility] Medical History (Updated 07/06/20 @ 15:40 by Shea Bacon) ADHD Anxiety Asthma BMI 45.0-49.9, adult Carpal tunnel syndrome Depression Surgical History Abdominal hysterectomy (09/11/17) Supracervical hysterectomy with unilateral salpingectomy. Ovaries conserved. 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 section 2008, 2010 History of dilation and curettage Social History Smoking/Tobacco Use Status: Current every day Tobacco Type: cigarettes Smoking risk assessment performed?: Yes Alcohol Intake: current Alcohol Intake frequency: a few times a week Drug use: Daily Substance use type: marijuana Do you feel safe at home: Yes Do you feel safe in your relationship?: Yes Exam Narrative Exam Narrative: Constitutional: Alert and oriented x3. Appears stated age. Normal body habitus. Head: Normocephalic, no trauma. Eyes: Pupils PERRLA, Red reflex noted, EOM's intact. Eyelids symmetrical without lesions, discharge, or swelling. ENT: Bilateral TM's WNL, External ear normal to inspection, no mastoid TTP, swelling, or erythema, Nasal turbinates WNL, no nasal discharge. Normal dentition, Posterior pharynx WNL, no exudate. Chest: RRR, Normal S1, S2, distal pulses intact. Resp: Lungs clear to auscultation bilaterally, no wheezes, rales, or rhonchi. Musculoskeletal: Normal gait, 5/5 strength to all four extremities. Skin: No suspicious rashes or lesions. Capillary refill less than 2 sec. Neurologic: Cranial nerves II-XII intact. Alert and oriented x 3. DTR's intact. Hematologic/Lymphatic: No ecchymosis, no lymphadenopathy. External Female Exam: normal external appearance Speculum Exam - Vagina: normal appearance of the vagina, normal vaginal discharge, no lesions and No vaginal bleeding Speculum Exam - Cervix: normal appearance of the cervix and closed OB/External & Speculum: No vaginal bleeding Course Vital Signs Vital signs: Temperature Source Skin 07/06/20 14:33 Blood Pressure Position Sitting 07/06/20 14:33 Oxygen Delivery Method Room Air 07/06/20 14:33 Oxygen Flow Rate 0 07/06/20 14:33 Lab/Test Results Lab/Test Results: Laboratory Tests Range/Units 07/06/20 14:37 Urine Color (Yellow) Yellow Urine Clarity (Clear) Clear Urine pH (5-8) 6.5 Ur Specific [place] (1.005-1.025) 1.025 Urine Protein (Negative) mg/dL Negative Urine Ketones (Negative) mg/dL Negative Urine Blood (Negative) Moderate H Urine Nitrite (Negative) Negative Urine Bilirubin (Negative) Negative Urine Urobilinogen (Up TO 0.2) EU/dL 1.0 H Ur Leukocyte Esterase (Negative) Small H Urine Glucose (Negative) mg/dL Negative
[2020-07-06 15:04] LABS: Bacteria Moderate HPF (Negative); C & S Indicated? Yes; Casts Negative LPF (Negative); Crystals Negative HPF (Negative); Epithelial Cells Few HPF (Negative); Mucus Moderate (Negative); WBC >50 HPF (0-5)
[2020-07-06 15:07] VITALS: BP 122/96; PULSE 95; RESP 18; TEMP 36.9; O2SAT 98
== END 2020-07-06 16:30 | disposition home or self-care (01) ==
PROVIDERS: Emergency Provider Registered Nurse Emergency; PCP Specialist/Technologist Athletic Trainer
DX: N39.0 Urinary tract infection, site not specified (principal); B96.20 Unspecified Escherichia coli [E. coli] as the cause of diseases classified elsewhere; N76.0 Acute vaginitis; B96.89 Other specified bacterial agents as the cause of diseases classified elsewhere
CPT/HCPCS: 36416; 81025; 82962; 87077; 87491; 87591; 99284; 81003; 81015; 87086; 87186; 87480; 87510; 87660

== ENCOUNTER 2020-10-26 11:18 | Emergency (ER) | payer MEDICAID, SELFPAY ==
--- NOTE | 2020-10-26 11:30 | DI.CT_ITS ---
EXAM: CT HEAD WO CLINICAL HISTORY: head injury, n/v, [place], visual changes. TECHNIQUE: Imaging Protocol: Axial computed tomography images with coronal and sagittal reformatted images were created and reviewed COMPARISON: CT HEAD WITHOUT CONTRAST from 01/15/2014 FINDINGS: Ventricles and Extra axial spaces: Normal in size and morphology for the patient's age. Hemorrhage: None. Cerebral parenchyma: Normal. Midline shift: None. Brainstem/Cerebellum: Normal. Calvarium: Normal. Visualized Paranasal sinuses/Mastoids: Clear. Soft Tissues: Unremarkable. IMPRESSION: No acute intracranial process. RADIATION DOSE DELIVERED: 814.72mGy.cm Total DLP DATA REPOSITORY: All CT scans at this facility are submitted to the National Radiology Data Registry (NRDR) Dose Index Registry (DIR) with the [employer] (ACR). RADIATION OPTIMIZATION: All CT scans at this facility use at least one of these dose optimization te chniques: automated exposure control; mA and/or kV adjustment per patient size (includes targeted exa ms where dose is matched to clinical indication); or iterative reconstruction.
[2020-10-26 11:32] VITALS: BP 136/88; PULSE 86; RESP 18; TEMP 36.8; O2SAT 100
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
[2020-10-26 13:25] VITALS: BP 119/74; PULSE 77; RESP 16; O2SAT 98
[2020-10-26 13:27] VITALS: BP 139/80; PULSE 79; RESP 20; TEMP 36.7; O2SAT 98
[2020-10-26] MEDS: Acetaminophen 500 MG TAB 1000 MG PO (13:47)
== END 2020-10-26 13:54 | disposition home or self-care (01) ==
PROVIDERS: Emergency Provider Physician Assistant; PCP Family Medicine
DX: S09.8XXA Other specified injuries of head, initial encounter (principal); W22.8XXA Striking against or struck by other objects, initial encounter; R51.9 Headache, unspecified
CPT/HCPCS: 99284; 70450; 99283

== ENCOUNTER 2020-11-02 00:50 | Emergency (ER) | payer MEDICAID, SELFPAY ==
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
[2020-11-02 00:54] VITALS: BP 145/88; PULSE 80; RESP 18; TEMP 36.7; O2SAT 98
== END 2020-11-02 01:19 | disposition home or self-care (01) ==
PROVIDERS: Emergency Provider Emergency Medicine; PCP Family Medicine
DX: F07.81 Postconcussional syndrome (principal); G44.309 Post-traumatic headache, unspecified, not intractable; S00.83XA Contusion of other part of head, initial encounter; S10.83XA Contusion of other specified part of neck, initial encounter; S00.03XA Contusion of scalp, initial encounter; Y04.2XXA Assault by strike against or bumped into by another person, initial encounter
CPT/HCPCS: 99282; 99283

== ENCOUNTER 2020-11-19 15:56 | Outpatient (REF) | payer MEDICAID, SELFPAY ==
[2020-11-19 13:07] LABS: HCT 44.6 % (36.0-46.0); HGB 14.7 g/dL (11.2-15.7); MCH 28.7 pg (27.0-33.0); MCV 86.9 fL (80-95); MPV 8.5 fL (8.0-11.0); Platelet Count 316 10^3/uL (130-400); RBC 5.13 10^6/uL (3.93-5.22); RDW 12.5 % (11.7-14.6); RDW-SD 39.9 fL; WBC 6.95 10^3/uL (4.4-10.8)
[2020-11-19 13:31] LABS: Anion Gap 7.2 mmol/L (3-11); BUN 9 mg/dL (7-18); CO2 26.8 mmol/L (21.0-32.0); CREATININE 0.8 mg/dL (0.55-1.02); Calcium 8.7 mg/dL (8.5-10.1); Chloride 104 mmol/L (98-107); Glucose 182 mg/dL (74-106); Potassium 4.6 mmol/L (3.5-5.1); Sodium 138 mmol/L (136-145); TSH 0.46 uIU/mL (0.36-3.74)
[2020-11-19 14:06] LABS: Vitamin D 25 Total 10.8 ng/mL (30-100)
== END 2020-11-19 15:57 | disposition home or self-care (01) ==
LOC: NCHCN 15:56
PROVIDERS: PCP Family Medicine; Visit Provider Nurse Practitioner Family
DX: F31.62 Bipolar disorder, current episode mixed, moderate (principal); Z79.899 Other long term (current) drug therapy
CPT/HCPCS: 80048; 82306; 85027; 84443

== ENCOUNTER 2021-01-30 11:05 | Day surgery (SDC) | payer MEDICAID, SELFPAY ==
--- NOTE | 2021-01-30 10:36 | PDOC.DSDIS_ITS ---
Discharge Plan Disposition Patient Disposition: HOME Condition: Good Discharge Details Reason For Visit: WRIST ECTR Attending Provider: Alexys Best Primary Care Provider: Zoe Mullins V Home Meds and New Rx's Prescriptions: New hydrocodone-acetaminophen 5-325 mg tablet 1 tab PO Q6H PRNQty: 5 RF: 0 ibuprofen 600 mg tablet 600 mg PO TID Qty: 30 RF: 0 acetaminophen [Tylenol Extra Strength] 500 mg tablet 500 mg PO Q6H PRNQty: 30 RF: 0 Continued gabapentin 300 mg capsule 300 mg PO BID RF: 0 metformin 500 mg Tablet 500 mg PO HS RF: 0 albuterol sulfate 2.5 mg/0.5 mL solution for nebulization 2.5 mg IH Q4H PRN (Reason: bronchospasm) Qty: 30 RF: 0 albuterol sulfate 90 mcg/actuation HFA aerosol inhaler 2 puff IH Q6H PRN (Reason: shortness of breath or wheezing) Qty: 6.7 RF: 0 Discharge Instructions Stand Alone Forms: Nasir Mcdowell Tunnel Release Referrals: Alexys Best MD [ [facility] STAFF PHYSICIAN] - Activity:: Activity as Tolerated Remove Dressings/Wound Care:: 72 hours Shower/Bathe:: 72 hours Diet:: As Tolerated Discharge Orders Discharge Orders: Discharge Order (Routine); Ordered 01/30/21 Ordered By: Zoe Austin DS: Diagnosis Discharge Diagnosis (1) Bilateral carpal tunnel syndrome: Status: Acute
[2021-01-30 11:26] VITALS: BP 134/88; PULSE 84; RESP 18; TEMP 36.2; O2SAT 98
--- NOTE | 2021-01-30 11:42 | W.ANESPRE ---
General Info Date of Service Date Performed: 01/30/21 Height: 4 ft 11 in Weight: 109.6 kg Body Mass Index (BMI): 48.8 Surgical Procedure: Operation Date: 01/30/21 12:40 Proposed Procedures Side Surgeon p Wrist ECTR Bilateral Alexys Best MD Meds Allergies and Home Medications Allergies Allergy/AdvReac Type Severity Reaction Status Date / Time No Known Allergies Allergy Unverified 01/30/21 11:22 Home Medication Medication Instructions Recorded metformin 500 mg PO HS 07/09/19 albuterol sulfate 2.5 mg IH Q4H PRN #30 each 08/09/19 albuterol sulfate 2 puff IH Q6H PRN #6.7 gm 10/03/19 gabapentin 300 mg capsule 300 mg PO BID 11/22/20 acetaminophen [Tylenol Extra 500 mg PO Q6H PRN #30 tab 01/30/21 Strength] hydrocodone-acetaminophen 1 tab PO Q6H PRN #5 tab 01/30/21 ibuprofen 600 mg PO TID #30 tab 01/30/21 Current Visit Medications: Current Medications Generic Name Dose Route Start Last Admin Trade Name Freq PRN Reason Stop Dose Admin Acetaminophen 650 mg 01/30/21 10:35 Acetaminophen 325 Mg Tab PO Q4H PRN PRN Hydrocodone Bitart/Acetaminophen 0 tab 01/30/21 10:35 Hydrocodone 5/Acetaminophen 325 Tab PO Q3H PRN PRN Pain Ringer's Solution 1,000 mls @ 80 mls/hr 01/30/21 06:00 IV 02/28/21 23:59 INFUSION MALU Cefazolin Sodium/Dextrose 2 gm in 50 mls @ 100 mls/hr 01/30/21 06:00 Ancef Duplex IVPB 02/28/21 23:59 PREOP MALU Ondansetron HCl 4 mg/ Sodium 52 mls @ 200 mls/hr 01/30/21 10:35 Chloride IVPB Q6H PRN PRN IV Miscellaneous Supplies 1 each 01/30/21 06:00 Iv Access IV 02/28/21 23:59 DIRECTED MALU Sodium Chloride 0 ml 01/30/21 06:00 Normal Saline Flush 10 Ml Syr IV 02/28/21 23:59 PRN PRN Sodium Chloride 0 ml 01/30/21 06:00 Normal Saline 10 Ml Vial IJ 02/28/21 23:59 DIRECTED PRN Sterile Water 0 ml 01/30/21 06:00 Water,Injection,Sterile 10 Ml Vial IJ 02/28/21 23:59 DIRECTED PRN PFSH Active Problems Active Problems: Problem Status Onset Code Bronchitis J40 Cough R05 Closed head injury S09.90XA Post-concussion headache G44.309 Contusion of face, scalp and neck S00.83XA, S00.03XA, S10.93XA Bilateral carpal tunnel syndrome G56.03 Medical History Medical History ADHD Anxiety Asthma BMI 45.0-49.9, adult Carpal tunnel syndrome bilateral Depression Diabetes Surgical History Surgical History Abdominal hysterectomy (09/11/17) Supracervical hysterectomy with unilateral salpingectomy. Ovaries conserved. 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 section 2008, 2010 History of dilation and curettage Tobacco Smoking/Tobacco Use Status: Current every day Tobacco Type: cigarettes Smoking cigarettes per day: 10 Alcohol Alcohol Intake: current Alcohol intake frequency: a few times a week Substance Use Substance use: Daily Substance use type: marijuana Details: alcohol:t-21. Marijuana: t-1, joint Vital Signs and Lab Results Vital Signs Most Recent Vital Signs in EMR: Most Recent Vital Signs Temp Pulse Resp BP Pulse Ox 36.2 C L 84 18 134/88 98 01/30/21 11:26 01/30/21 11:26 01/30/21 11:26 01/30/21 11:26 01/30/21 11:26 Lab Results Blood Type / Crossmatch: No Data to Display Complete Blood Count: No Data to Display Complete Metabolic Panel: No Data to Display Liver Function Panel: No Data to Display Coagulation Panel: No Data to Display Cardiac Panel: No Data to Display Arterial Blood Gas: No Data to Display Venous Blood Gas: No Data to Display Pancreas Panel: No Data to Display Thyroid Panel: No Data to Display Infectious Disease: No Data to Display Blood Cultures: No Data to Display Toxicology Panel: No Data to Display Panel: No Data to Display Anesthesia Assessment and Plan Anesthesia History Personal History: No History of Anesthesia Complications Family History: No Family History of Anesthesia Complications Exercise Tolerance Exercise Tolerance: Metabolic Equivalents>4 Pertinent Negatives Pertinent Negatives: No Symptoms of GERD (With spicy foods only, never on an empty stomach), No Major Cardiovascular Symptoms or Complaints and No Major Pulmonary Symptoms or Complaints Cardiac & Pulmonary Exam Cardiac Exam: Normal S1/S2 Heart Sounds Pulmonary Exam: Clear Bilateral Breath Sounds Airway Exam Known Difficult Airway: No Mallampati Class: 1 Mouth Opening: Normal (> 3cm) Thyromental Distance: Greater than 3 cm Neck Range of Motion: Full ROM Neck Circumference: Normal Teeth Condition: Normal Dentition and Loose or Chipped Airway Comments: 45 broken ASA Classification ASA Score: ASA 3 Emergency Case?: No NPO Status NPO Status: NPO Clears >2 hours, Solids >8 hours Status Status: History of Hysterectomy Anesthesia Plan Resuscitation Status: Full Code Anesthesia Technique: General Anesthesia Airway Planned: Natural Airway Monitors Used: Standard Monitors Preoperative Comments:: Gluc check 156
[2021-01-30] MEDS: Lactated Ringers 1,000 ML 80 ML IV (11:50)
[2021-01-30 11:53] VITALS: BMI 48.8
[2021-01-30] MEDS: Sodium Bicarbonate 50 MEQ/50 ML VIAL (13:06)
[2021-01-30] MEDS: ceFAZolin 2 GM/50 ML BAG IVPB (13:09)
[2021-01-30 13:36] VITALS: BP 124/57; PULSE 74; RESP 24; TEMP 36.2; O2SAT 96
--- NOTE | 2021-01-30 13:38 | W.ANESPOSTOP ---
Postoperative Evaluation Date, Time and Location Date Performed: 01/30/21 Time Performed: 13:38 Patient Location: Day Surgery Unit Vital Signs Most Recent Imported Vital Signs: Most Recent Vital Signs Temp Pulse Resp BP Pulse Ox 36.2 C L 84 18 134/88 98 01/30/21 11:26 01/30/21 11:01/30/21 11:01/30/21 11:01/30/21 11:26 Most Recent Manually Entered Vital Signs: Adult Blood Pressure: 124/57 Heart Rate: 68 Respirations: 24 Oxygen Saturation (%): 96 Temperature (C): 36.2 C Pain Score (0-10 Scale): 3 Pain Score Most Recent Pain Score: Most Recent Pain Score Pain Level 6 01/30/21 11:26 Assessment Mental Status: Awake (Alert & Oriented to Patient Baseline) Airway and Respiratory Function: Patent airway with normal (patient baseline) respiratory exam Cardiovascular Function: Hemodynamically Stable Hydration Status: Adequately Hydrated Nausea & Vomiting: No Nausea or Vomiting Pain: Pain is tolerable/mild (<5/10) Peripheral Nerve Block: Patient did not receive a nerve block
[2021-01-30 13:40] VITALS: BP 124/57; PULSE 68; RESP 24; TEMPC 36.2; O2SAT 96
[2021-01-30 14:05] VITALS: BP 115/64; PULSE 62; RESP 20; TEMP 36.4; O2SAT 97
--- NOTE | 2021-01-30 18:23 | W.PM.OP ---
Date of service: 01/30/21 Time of Service: 13:46 Operative Note Operative Note DATE OF PROCEDURE: 01/30/21 PRE-OP DIAGNOSIS: Bilateral Carpal Tunnel Syndrome POST-OP DIAGNOSIS: same PROCEDURE: Bilateral Endoscopic Carpal Tunnel Release SURGEON: Alexys Best ANESTHESIA TYPE: General:No Airway Refer to Anesthesia Record ESTIMATED BLOOD LOSS: 0 PATHOLOGY: none sent TOURNIQUET TIME: 15 COMPLICATIONS: None Patient was transported to: same day Patient's condition: stable Indications: I have seen Pam in clinic for symptoms of bilateral carpal tunnel syndrome. The numbness, tingling, and pain limited function. Clinical exam findings with nerve conduction tests confirmed the diagnosis of carpal tunnel syndrome. Nonoperative measures such as bracing, time, activity modifications had been tried but disability and pain persisted. I discussed carpal tunnel release with the patient. I reviewed the risks of the procedure to include, but not limited to, bleeding, infection, pain, stiffness, incomplete release, damage to nerves or vessels, persistent numbness, recurrence. Despite these risks, the patient elected to proceed. Findings: There was tightened carpal tunnel, much more so on the right than the left. There was also significant synovium within the right carpal tunnel. This was dilated and released successfully with the endoscopic with increased space within the tunnel. The antebrachial fascia was released proximally freeing the median nerve at the wrist. This was performed for both right and left. Procedure Description: Pam was greeted in the preoperative holding area where the correct side was identified and marked. The consent was reviewed with the patient and signed. The history and physical was updated. All questions were answered. She was taken back to the operating room. The patient was placed into the supine position on the operating room table with the both arms on arm boards. A nonsterile tourniquet was placed high onto the arm. All bony prominences were well padded. Prophylactic antibiotics in the form of Cefazolin were administered. Both arms were then prepped with Chloraprep and draped in a standard fashion with an extremity drape. A timeout to confirm correct identity, side and site, procedure, allergies, anesthesia, and medical concerns was performed. The surgical site was marked in the volar wrist creases in line with the radial border of the fourth ray of both hands. This area was anesthetized with approximately 6cc of 1% Lidocaine with epinephrine for each wrist. Starting with the right hand, the distal arm was then exsanguinated with an Esmarch and an Esmarch tourniquet was applied. The skin was incised with a 15 blade, approximately 1cm. The skin only was cut and the deeper tissue was dissected bluntly with a tenotomy scissor, avoiding passing nerve and venous structures. The fascia was penetrated and opened bluntly. A two-prong skin hook was placed under this proximal fascial edge. A series of hamate finders were used to identify and dilate the carpal tunnel. It was notably tight upon entry. Synovial elevator was used to free synovial attachments to the underside of the transverse carpal ligament. My thumb was kept in the palm to sivakumar the distal extent of the carpal tunnel and correctly position the hand. The Microaire endoscope was inserted without difficulty and without resistance. There was superfluous synovial tissue seen in the carpal tunnel and it was very tight. I therefore removed the scope and worked the synovial elevator and dilators some more. The scope was placed once again and excellent visualization was obtained, showing horizontally running fibers of the transverse carpal ligament (TCL). The distal extent of the TCL was visualized and the end of the scope palpated with the thumb. The blade was elevated and withdrawn from distal to proximal. The TCL was split into two flaps. The endoscope was reinserted to confirm complete release and any remnant ligament was incised. The scope was withdrawn and the proximal aspect of the carpal tunnel was grossly inspected and appeared release with the median nerve visible. The antebrachial fascia at the level of the wrist was then freed from the overlying skin and then the underlying median nerve with blunt dissection. This was transected longitudinally for about 3cm proximal to the wrist incision. The wound was then irrigated with easy flow of irrigant distally and proximally. The incision was closed with a single 4-0 Nylon suture. The wound was dressed with Xeroform, Gauze, Kerlix and Osorio. The tourniquet was deflated with the initial dressing and held with some pressure. Blood flow returned easily to all digits with capillary refill less than 2 seconds. Attention was then turned to the left side. The limb was then exsanguinated with an Esmarch and an Esmarch tourniquet was placed. The skin was incised with a 15 blade, approximately 1cm. The skin only was cut and the deeper tissue was dissected bluntly with a tenotomy scissor, avoiding passing nerve and venous structures. The fascia was penetrated and opened bluntly. A two-prong skin hook was placed under this proximal fascial edge. A series of hamate finders were used to identify and dilate the carpal tunnel. Synovial elevator was used to free synovial attachments to the underside of the transverse carpal ligament. My thumb was kept in the palm to sivakumar the distal extent of the carpal tunnel and correctly position the hand. The Microaire endoscope was inserted without difficulty and without resistance. Excellent visualization showed horizontally running fibers of the transverse carpal ligament (TCL). The distal extent of the TCL was visualized and the end of the scope palpated with the thumb. The blade was elevated and withdrawn from distal to proximal. The TCL was split into two flaps. The endoscope was reinserted to confirm complete release and any remnant ligament was incised. The scope was withdrawn and the proximal aspect of the carpal tunnel was grossly inspected and appeared release with the median nerve visible. The antebrachial fascia at the level of the wrist was then freed from the overlying skin and then the underlying median nerve with blunt dissection. This was transected longitudinally for about 3cm proximal to the wrist incision. The wound was then irrigated with easy flow of irrigant distally and proximally. The incision was closed with a single 4-0 Nylon suture. The wound was dressed with Xeroform, Gauze, Kerlix and Osorio. The tourniquet was deflated with the initial dressing and held with some pressure. Blood flow returned easily to all digits with capillary refill less than 2 seconds. The patient tolerated the procedure well and was returned to the Same Day Surgery area in a stable condition suffering no known complication.
== END 2021-01-30 15:09 | disposition home or self-care (01) ==
LOC: SUR 11:06
PROVIDERS: PCP Family Medicine; Visit Provider Student in an Organized Health Care Education/Training Program
PROC: 01N54ZZ Release Median Nerve, Percutaneous Endoscopic Approach (ICD-10-PCS; CPT 29848; principal; 2021-01-30 12:30)
DX: G56.03 Carpal tunnel syndrome, bilateral upper limbs (principal); E11.9 Type 2 diabetes mellitus without complications
CPT/HCPCS: 29848; J0690; J1100; J1885; J2001; J2405; J2704

== ENCOUNTER 2021-02-07 10:59 | Emergency (ER) | payer MEDICAID, SELFPAY ==
[2021-02-07 11:04] VITALS: BP 138/101; PULSE 92; RESP 20; TEMP 36.5; O2SAT 98
--- NOTE | 2021-02-07 11:45 | DI.RAD_ITS ---
Exam(s) XR SHOULDER RT COMPLETE 2+V EXAM: XR SHOULDER RT COMPLETE 2+V CLINICAL HISTORY: right shoulder pain. TECHNIQUE: 2D digital imaging was performed. COMPARISON: No exams were available for comparison FINDINGS: There is no evidence of fracture or dislocation or abnormal soft tissue calcifications. Subacromial space is not diminished. No degenerative changes. Bone density normal. IMPRESSION: No fracture or dislocation. DATA REPOSITORY: RADIATION DOSE DELIVERED:
--- NOTE | 2021-02-07 11:56 | ED.GENADUL_ITS ---
Discharge Plan Disposition Patient Disposition: HOME Condition: Good Discharge Details Clinical Impression: Right shoulder strain Primary Care Provider: Zoe Mullins V ED Provider: Lisa Munson Home Meds and New Rx's Prescriptions: Continued gabapentin 300 mg capsule 300 mg PO BID RF: 0 hydrocodone-acetaminophen 5-325 mg tablet 1 tab PO Q6H PRNQty: 5 RF: 0 ibuprofen 600 mg tablet 600 mg PO TID Qty: 30 RF: 0 acetaminophen [Tylenol Extra Strength] 500 mg tablet 500 mg PO Q6H PRNQty: 30 RF: 0 metformin 500 mg Tablet 500 mg PO HS RF: 0 albuterol sulfate 2.5 mg/0.5 mL solution for nebulization 2.5 mg IH Q4H PRN (Reason: bronchospasm) Qty: 30 RF: 0 albuterol sulfate 90 mcg/actuation HFA aerosol inhaler 2 puff IH Q6H PRN (Reason: shortness of breath or wheezing) Qty: 6.7 RF: 0 Discharge Instructions Instructions: Shoulder Pain (ED) Additional Instructions: Continue to range shoulder so does not become stiff Repeat x-ray in 1 week Repeat x-ray ibuprofen and Tylenol as needed for pain Return earlier should you have new or worsening complaints Only use your sling during the day as needed. Blood pressure recheck by her primary care physician Discharge Data Discharge Date/Time-TO BE ENTERED AT DEPARTURE: 02/07/21 12:28 Medical Decision Making Patient appears well, her x-ray does not show evidence of acute pathology This is interpreted by radiology and reviewed by me Given sling with frozen shoulder precautions, instructed to follow-up with primary care physician in 1 week Ibuprofen and Tylenol as needed for discomfort Repeat x-ray in 1 week with persistent pain cough Differential Diagnosis Differential Diagnosis: Fracture, strain, contusion, abrasion Medical Records Medical records reviewed: Yes I reviewed the patient's medical records. Lab Data Lab results reviewed: Yes I reviewed the patient's lab results. HPI General Mode of arrival: ambulatory . Date/Time Provider Initiated Documentation: 02/07/21 11:25 . Limitations to Documentation: no limitations . Information obtained by: patient . HPI Narrative: This 30-year-old female presents with right shoulder pain. She states that she tripped over a toy and was propelled into the wall hitting her right shoulder. She denies any neck pain or strength or sensation change. The pain is exacerbated with movement. She denies any additional complaints at this time or chance of . Denies neck pain or head injury. Related Data Home Medications Medication Instructions Recorded Confirmed metformin 500 mg PO HS 07/09/19 02/07/21 albuterol sulfate 2.5 mg IH Q4H PRN #30 each 08/09/19 02/07/21 albuterol sulfate 2 puff IH Q6H PRN #6.7 gm 10/03/19 02/07/21 gabapentin 300 mg capsule 300 mg PO BID 11/22/20 02/07/21 acetaminophen [Tylenol Extra 500 mg PO Q6H PRN #30 tab 01/30/21 02/07/21 Strength] hydrocodone-acetaminophen 1 tab PO Q6H PRN #5 tab 01/30/21 02/07/21 ibuprofen 600 mg PO TID #30 tab 01/30/21 02/07/21 Previous Rx's Medication Instructions Recorded albuterol sulfate 2.5 mg IH Q4H PRN #30 each 08/09/19 albuterol sulfate 2 puff IH Q6H PRN #6.7 gm 10/03/19 acetaminophen [Tylenol Extra 500 mg PO Q6H PRN #30 tab 01/30/21 Strength] hydrocodone-acetaminophen 1 tab PO Q6H PRN #5 tab 01/30/21 ibuprofen 600 mg PO TID #30 tab 01/30/21 Allergies Allergy/AdvReac Type Severity Reaction Status Date / Time No Known Allergies Allergy Unverified 02/07/21 11:11 General Stated Complaint: Orthopedic JORGE: 4 Review of Systems All systems reviewed & are unremarkable except as noted in HPI and below PFSH Medical History (Updated 02/07/21 @ 12:15 by PRASHANTH Gray) ADHD Anxiety Asthma BMI 45.0-49.9, adult Carpal tunnel syndrome bilateral Depression Diabetes Surgical History Abdominal hysterectomy (09/11/17) Supracervical hysterectomy with unilateral salpingectomy. Ovaries conserved. 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 section 2008, 2010 History of dilation and curettage Social History Smoking/Tobacco Use Status: Current every day Tobacco Type: cigarettes Smoking risk assessment performed?: Yes Alcohol Intake: current Alcohol Intake frequency: a few times a week Drug use: Daily Substance use type: marijuana Household members: children Number of Children: 3 Pets and animals: Yes Pets and animals: dog(s) What type of physical activity do you participate in: walking Seatbelt use: always Do you feel safe at home: Yes Do you feel safe in your relationship?: Yes Exam Const General: cooperative and comfortable HENMT Head: normal to inspection Neck Other: No midline tenderness Extrem Other: Tenderness to palpation over right shoulder anteriorly, no obvious deformity, mildly decreased abduction secondary to pain, no weakness, neurovascularly intact, no crepitus Course Vital Signs Vital signs: Vital Signs Temperature 36.5 C 02/07/21 11:04 Pulse 92 H 02/07/21 11:04 Respiratory Rate 20 02/07/21 11:04 Blood Pressure 138/101 H 02/07/21 11:04 Pulse Oximetry 98 02/07/21 11:04 Temperature 36.5 C 02/07/21 11:04 Temperature Source Temporal Artery Scan 02/07/21 11:04 Pulse 92 H 02/07/21 11:04 Respiratory Rate 20 02/07/21 11:04 Respiratory Effort Non-Labored 02/07/21 11:09 Blood Pressure 138/101 H 02/07/21 11:04 Blood Pressure Position Sitting 02/07/21 11:04 Pulse Oximetry 98 02/07/21 11:04 Oxygen Delivery Method Room Air 02/07/21 11:04 Oxygen Flow Rate 0 02/07/21 11:04 Pain Level 7 02/07/21 11:04
== END 2021-02-07 12:28 | disposition home or self-care (01) ==
PROVIDERS: Emergency Provider Physician Assistant; PCP Family Medicine
DX: S49.81XA Other specified injuries of right shoulder and upper arm, initial encounter (principal); W22.8XXA Striking against or struck by other objects, initial encounter
CPT/HCPCS: 99283; 73030; 99282

== ENCOUNTER 2021-04-20 15:02 | Emergency (ER) | payer MEDICAID, SELFPAY ==
[2021-04-20 15:07] VITALS: BP 146/92; PULSE 95; RESP 18; TEMP 36.9; O2SAT 100
--- NOTE | 2021-04-20 15:19 | ED.GENADUL_ITS ---
Discharge Plan Disposition Patient Disposition: HOME Condition: Good Discharge Details Clinical Impression: Possible exposure to STD Primary Care Provider: Zoe Mullins V ED Provider: Sanam Rojas Home Meds and New Rx's Prescriptions: Continued gabapentin 300 mg capsule 300 mg PO BID RF: 0 ibuprofen 600 mg tablet 600 mg PO TID Qty: 30 RF: 0 acetaminophen [Tylenol Extra Strength] 500 mg tablet 500 mg PO Q6H PRNQty: 30 RF: 0 metformin 500 mg Tablet 500 mg PO HS RF: 0 albuterol sulfate 2.5 mg/0.5 mL solution for nebulization 2.5 mg IH Q4H PRN (Reason: bronchospasm) Qty: 30 RF: 0 albuterol sulfate 90 mcg/actuation HFA aerosol inhaler 2 puff IH Q6H PRN (Reason: shortness of breath or wheezing) Qty: 6.7 RF: 0 Discharge Instructions Additional Instructions: You had a possible exposure to herpes infection. Testing for STDs including gonorrhea, chlamydia, herpes, HIV, hepatitis and syphilis are pending. We will contact you with any positive results. Results should be completed within the next 5 days. If you develop any vaginal lesions, fever/chills, abdominal pain or other new/worsening symptoms please seek care urgently once again. Referrals: Zoe Mullins MD [Primary Care Provider] - Discharge Data Discharge Date/Time-TO BE ENTERED AT DEPARTURE: 04/20/21 16:20 Medical Decision Making Patient is a pleasant 31-year-old female presents today with chief complaint of possible STI exposure. She reports a prior to arrival she and her significant other were having unprotected vaginal intercourse. She reports that her significant other than noted to have penile discomfort and on inspection noted numerous lesions to his penis. She does show me a photo of this and it is concerning for raised erythematous lesions that appear to have ulcerated, concerning for HSV. Patient denies any previous STIs. She reports that she and her significant other have been in a monogamous relationship ship for the past year. Patient is status post hysterectomy. Patient is incredibly anxious and upset. Actively crying. At her request, will pain evaluation for any STI exposure. We will send testing for GC, chlamydia, syphilis, HSV, hepatitis, HIV. We will perform a vaginal exam to include a vaginal cuff screening. Discussed this plan with the patient Vaginal exam without abnormality. She has no lesions. No abnormal discharge. Discussed pending labs with the patient. Will call later with the results of the vaginal path screening. She feels safe going home with her significant other. She reports she has a good support system. Return precautions were discussed, she is in agreement with this plan. 04/11/21: Called patient with results of [facility] vaginal pathology screen. She is positive for gardnerella. Reviewed treatment options with the patient. She is asymptoamtic. Has been positive for this historically. Will hold off on treatment. Patient did not have active HSV lesions. There were no areas to swab. Had planned for her HSV testing to be through blood but this was not completed yesterday. She will return as an outpatient through the lab for redraw to have this test completed. She was directed to call [facility] to schedule. Order was sent to the lab. Again, all quesitons and concerns were addressed and she is in agreement with this plan. HPI General Mode of arrival: ambulatory . Date/Time Provider Initiated Documentation: 04/20/21 15:04 . Limitations to Documentation: no limitations . Information obtained by: patient and RN notes reviewed . History of Present Illness 31 year old F presents to the emergency department with the chief complaint of possible STI exposure, Quality is described as other (patient is having no physical symptoms at this time), Patient started experiencing this minute(s) and it has been other (has photos of significant other's genitals with ulcerated lesions on erythematous base present). No relieving factors improve symptom(s), No exacerbating factors reported . Patient notes no other symptoms.. Patient did receive the following treatments prior to arrival, none Related Data Home Medications Medication Instructions Recorded Confirmed metformin 500 mg PO HS 07/09/19 04/20/21 albuterol sulfate 2.5 mg IH Q4H PRN #30 each 08/09/19 04/20/21 albuterol sulfate 2 puff IH Q6H PRN #6.7 gm 10/03/19 04/20/21 gabapentin 300 mg capsule 300 mg PO BID 11/22/20 04/20/21 acetaminophen [Tylenol Extra 500 mg PO Q6H PRN #30 tab 01/30/21 04/20/21 Strength] ibuprofen 600 mg PO TID #30 tab 01/30/21 04/20/21 Previous Rx's Medication Instructions Recorded albuterol sulfate 2.5 mg IH Q4H PRN #30 each 08/09/19 albuterol sulfate 2 puff IH Q6H PRN #6.7 gm 10/03/19 acetaminophen [Tylenol Extra 500 mg PO Q6H PRN #30 tab 01/30/21 Strength] ibuprofen 600 mg PO TID #30 tab 01/30/21 Allergies Allergy/AdvReac Type Severity Reaction Status Date / Time No Known Allergies Allergy Unverified 04/20/21 15:07 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 Review of Systems Constitutional Constitutional: Reports as per HPI, Denies chills, Denies fever(s) and Denies headache(s) ENT Ears, Nose, Mouth, and Throat: Denies headache(s) Cardiovascular Cardiovascular: Reports as per HPI, Denies chest pain and Denies dyspnea Respiratory Respiratory: Reports as per HPI, Denies cough and Denies dyspnea Genitourinary Genitourinary: Reports as per HPI, Reports amenorrhea (s/p hysterectomy), Denies hematuria, Denies genital pruritis, Denies genital lesions, Denies dyspareunia, Denies pelvic pain, Denies sexual dysfunction, Denies flank pain, Denies urinary urgency, Denies vaginal discharge and Denies vaginal pruritus Integumentary/Breasts Skin/Breast: Reports as per HPI, Denies rash and Denies skin ulcer Neurologic Neurologic: Denies headache(s) [facility] Medical History (Updated 04/20/21 @ 16:09 by PRASHANTH Levine) ADHD Anxiety Asthma BMI 45.0-49.9, adult Carpal tunnel syndrome bilateral Depression Diabetes Surgical History Abdominal hysterectomy (09/11/17) Supracervical hysterectomy with unilateral salpingectomy. Ovaries conserved. 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 section 2008, 2010 History of dilation and curettage Social History Smoking/Tobacco Use Status: Current every day Tobacco Type: cigarettes Smoking risk assessment performed?: Yes Alcohol Intake: current Alcohol Intake frequency: a few times a week Drug use: Daily Substance use type: marijuana Household members: children Number of Children: 3 Pets and animals: Yes Pets and animals: dog(s) What type of physical activity do you participate in: walking Seatbelt use: always Do you feel safe at home: Yes Do you feel safe in your relationship?: Yes Exam Const General: cooperative, healthy appearing, comfortable, no acute distress and anxious (crying, angry and upset) Nutritional Appearance: well nourished Orientation: alert and awake Resp Effort & Inspection: normal respiratory effort, able to speak in complete sentences and no respiratory distress Cardio Rate: regular rate Rhythm: regular rhythm GI Inspection: normal to inspection Palpation: soft and nontender External Female Exam: normal external appearance, no erythema, no external swelling, no lesions and No urethral discharge Speculum Exam - Vagina: normal appearance of the vagina, normal vaginal discharge, not erythematous, no lacerations, no swelling and tenderness Speculum Exam - Cervix: normal appearance of the cervix and nontender Bimanual Exam- Vagina & Uterus: normal bimanual exam and No tender Skin General skin exam: no rashes or lesions noted Neuro General: patient alert and patient awake Cognition: normal cognition Speech: speech normal Gait: normal gait Psych Appearance: grossly normal and well kempt Mental Status: mental status grossly normal Speech and Movement: speech and movement normal Course Vital Signs Vital signs: Vital Signs Temperature 36.9 C 04/20/21 15:07 Pulse 95 H 04/20/21 15:07 Respiratory Rate 18 04/20/21 15:07 Blood Pressure 146/92 H 04/20/21 15:07 Pulse Oximetry 100 04/20/21 15:07 Temperature 36.9 C 04/20/21 15:07 Temperature Source Skin 04/20/21 15:07 Pulse 95 H 04/20/21 15:07 Respiratory Rate 18 04/20/21 15:07 Respiratory Effort Non-Labored 04/20/21 15:12 Blood Pressure 146/92 H 04/20/21 15:07 Blood Pressure Position Sitting 04/20/21 15:07 Pulse Oximetry 100 04/20/21 15:07 Oxygen Delivery Method Room Air 04/20/21 15:07 Oxygen Flow Rate 0 04/20/21 15:07 Pain Level 0 04/20/21 15:12
--- NOTE | 2021-04-20 16:38 | NUR.NOTE ---
pt noticed blood coming from his right ear. it statyed localized to the ear canal. he removed his hearing aide and i cleaned his canal with 2x2 and alcohol pad. no further bleeding noted. physician notified Nursing Note:
[2021-04-22 10:38] LABS: Syphilis Serology (RPR) Negative (Negative)
[2021-04-22 11:05] LABS: HIV-1/2 Ag & Ab Screen Negative (Negative)
[2021-04-22 11:13] LABS: Hepatitis A Antibody IgM Negative (Negative); Hepatitis B Core Antibody Negative (Negative); Hepatitis B surface Ag Negative (Negative); Hepatitis C Ab w Rflx HCV PCR Negative (Negative)
[2021-04-22 15:18] LABS: Chlamydia Result Negative (Negative); GC Result Negative (Negative)
== END 2021-04-20 16:20 | disposition home or self-care (01) ==
PROVIDERS: Emergency Provider Physician Assistant; PCP Family Medicine
DX: N76.0 Acute vaginitis (principal); Z11.3 Encounter for screening for infections with a predominantly sexual mode of transmission
CPT/HCPCS: 36415; 86704; 86709; 86803; 87340; 87389; 87491; 87529; 87591; 99282; 86592; 87480; 87510; 87660

== ENCOUNTER 2021-05-29 01:49 | Outpatient (CLI) | payer MEDICAID, SELFPAY ==
--- NOTE | 2021-05-29 11:04 | DI.RAD_ITS ---
Exam(s) XR CHEST 2V PA LATERAL EXAM: XR CHEST 2V PA LATERAL CLINICAL HISTORY: ONGOING COUGH,H/O ASTHMA, S/P COVID 05/03 TECHNIQUE: 2D digital imaging was performed of the chest. Two images were obtained. PA and lateral views were obtained. COMPARISON: CR XR CHEST 2V PA LATERAL from 10/03/2019 FINDINGS: MEDIASTINUM: Normal. HEART: Normal. PULMONARY VASCULATURE: Normal. LUNGS: Clear. PLEURAL SPACE: No pleural effusion or pneumothorax. BONE:Within normal limits for the patient's age. OTHER FINDINGS:Normal. IMPRESSION: No acute pulmonary findings. DATA REPOSITORY: RADIATION DOSE DELIVERED:
== END 2021-05-29 02:09 ==
PROVIDERS: PCP Family Medicine; Visit Provider Nurse Practitioner Family
DX: R05.8 Other specified cough (principal)
CPT/HCPCS: 71046

== ENCOUNTER 2021-10-07 10:58 | Outpatient (REF) | payer MEDICAID, SELFPAY ==
[2021-10-08 09:41] LABS: Measles IgG Antibody Positive (See Note)
[2021-10-08 09:44] LABS: Mumps Antibody IgG Negative (See Note)
[2021-10-08 09:46] LABS: Rubella IgG Ab (UVM) Positive (See Note)
[2021-10-08 10:11] LABS: HBs Antibody, Quant 152.4 mIU/mL (See Note); Hepatitis B Surface Ab Positive (See Note)
[2021-10-12 22:31] LABS: Polio 3 Titer >1:128
== END 2021-10-07 10:59 | disposition home or self-care (01) ==
LOC: NCHCN 10:58
PROVIDERS: PCP Family Medicine; Visit Provider Nurse Practitioner Family
DX: Z11.59 Encounter for screening for other viral diseases (principal); Z01.84 Encounter for antibody response examination; Z00.00 Encounter for general adult medical examination without abnormal findings
CPT/HCPCS: 86706; 86658; 86735; 86762; 86765

== ENCOUNTER 2021-11-27 23:37 | Emergency (ER) | payer MEDICAID, SELFPAY ==
[2021-11-27 23:41] VITALS: BP 122/68; PULSE 89; RESP 18; TEMP 37; O2SAT 98
--- NOTE | 2021-11-28 | DI.RAD_ITS ---
Exam(s) XR PORTABLE CHEST AP EXAM: XR PORTABLE CHEST AP CLINICAL HISTORY: cough TECHNIQUE: 2D digital imaging was performed of the chest. One image was obtained. An AP view was ob tained. COMPARISON: CR XR PORTABLE CHEST AP from 06/18/2020 CR XR CHEST 2V PA LATERAL from 05/29/2021 FINDINGS: MEDIASTINUM: Normal. HEART: Normal. PULMONARY VASCULATURE: Normal. LUNGS: Clear. PLEURAL SPACE: No pleural effusion or pneumothorax. BONE:Within normal limits for the patient's age. OTHER FINDINGS:Normal. IMPRESSION: No acute pulmonary findings. DATA REPOSITORY: RADIATION DOSE DELIVERED:
--- NOTE | 2021-11-28 00:02 | ED.GENADUL_ITS ---
Discharge Plan Disposition Patient Disposition: HOME Condition: Improving Discharge Details Clinical Impression: COVID-19 Primary Care Provider: Zoe Mullins V ED Provider: Lawrence Perkins Home Meds and New Rx's Prescriptions: New prednisone 50 mg tablet 50 mg PO DAILY 5 Days Qty: 5 0RF dextromethorphan-guaifenesin 10-100 mg/5 mL liquid 10 ml PO Q4H PRN (Reason: cough) Qty: 250 0RF Continued gabapentin 300 mg capsule 300 mg PO BID 0RF ibuprofen 600 mg tablet 600 mg PO TID Qty: 30 0RF acetaminophen [Tylenol Extra Strength] 500 mg tablet 500 mg PO Q6H PRNQty: 30 0RF metformin 500 mg Tablet 500 mg PO HS 0RF albuterol sulfate 2.5 mg/0.5 mL solution for nebulization 2.5 mg IH Q4H PRN (Reason: bronchospasm) Qty: 30 0RF albuterol sulfate 90 mcg/actuation HFA aerosol inhaler 2 puff IH Q6H PRN (Reason: shortness of breath or wheezing) Qty: 6.7 0RF Discharge Instructions Instructions: COVID-19: Slow the Coronavirus Spread (ED), COVID-19 (Coronavirus Disease 2019) (ED), Face Coverings (Masks) and COVID-19 (ED) Additional Instructions: Home to rest. Small, frequent sips of fluids to maintain hydration. Continue Tylenol and/or ibuprofen as needed for aches, pains, fever. Your work-up in the emergency department today included chest x-ray, influenza and COVID-19 testing. You had general screening blood work as well. Take prednisone as prescribed. Return if you have difficulty breathing or any other acute concerns. Follow-up with regular doctor if not improving in 1 week's time. Stand Alone Forms: School Release Medical Decision Making 31-year-old female, immunized against COVID-19, presents with 3 days of cough, fever, body ache. Also endorses mild headache. No significant vomiting. She is not had a rash or stiff neck. No known travel. Her daughter had an exposure to Covid 1 week ago, the patient reports she tested negative. Patient arrives afebrile, interactive and oxygenating normally. Her exam is reassuring but she does have history of reactive airway disease and faint and expiratory wheeze bilaterally. Differential diagnosis includes bronchitis, pneumonia, pneumonitis, dehydration, viral syndrome. Mild bronchospasm is present as well. Patient IV access established, given parenteral steroid, analgesia, referred for laboratory testing, chest x-ray, given albuterol updraft. Patient's labs are reassuring. Chest x-ray without focal infiltrate. COVID-19 swab is positive. Discussed with patient her findings. Her chest x-ray and laboratories are reassuring. She certainly is suffering from COVID-19. I do believe she will benefit from brief course of prednisone which I discussed with her. We did discuss consideration of Paxlovid which the patient wishes to decline at this time. She is stable and improving, appropriate for discharge to home. Lab Data Lab results reviewed: Yes I reviewed the patient's lab results. Labs: Laboratory Results - last 24 hr 11/28/21 11/28/21 00:05 00:05 WBC 8.74 RBC 4.71 Hgb 13.6 Hct 41.0 MCV 87.0 MCH 28.9 MCHC 33.2 RDW 12.3 Plt Count 282 MPV 8.3 Immature Gran % 0.3 Neutrophils % 58.8 Lymphocytes % 31.4 Monocytes % 8.1 Eosinophils % 1.1 Basophils % 0.3 Nucleated RBC % 0 Absolute Neutrophils 5.13 Absolute Lymphocytes 2.74 Absolute Monocytes 0.71 Absolute Eosinophils 0.10 Absolute Basophils 0.03 Sodium 139 Potassium 3.8 Chloride 103 Carbon Dioxide 27.5 Anion Gap 8.5 BUN 12 Creatinine 0.9 Estimated GFR/1.73 m2 >= 60.00 Glucose 172 H Calcium 8.6 Total Bilirubin 0.3 AST 10 L ALT 28 Alkaline Phosphatase 71 Total Protein 7.0 Albumin 3.6 HPI General Mode of arrival: ambulatory . Date/Time Provider Initiated Documentation: 11/27/21 23:38 . Limitations to Documentation: no limitations . Information obtained by: patient . History of Present Illness 31 year old F presents to the emergency department with the chief complaint of 3 days cough, body ache, subjective fever and chills, described as moderate, Quality is d escribed as dull and constant, and is localized to the head and chest. Patient started experiencing this day(s) and it has been constant. improves with No relieving factors improve symptom(s), No exacerbating factors reported . Patient notes cough, headaches and malaise; denies chest pain and syncope. Patient did receive the following treatments prior to arrival, none Related Data Home Medications Medication Instructions Recorded Confirmed metformin 500 mg tablet 500 mg PO HS 07/09/19 04/20/21 albuterol sulfate 2.5 mg/0.5 mL 2.5 mg (0.5 mL) IH Q4H PRN #30 each 08/09/19 04/20/21 solution for nebulization albuterol sulfate 90 mcg/actuation 2 puff IH Q6H PRN #6.7 gm 10/03/19 04/20/21 aerosol inhaler gabapentin 300 mg capsule 300 mg PO BID 11/22/20 04/20/21 acetaminophen 500 mg tablet 500 mg PO Q6H PRN #30 tab 01/30/21 04/20/21 (Tylenol Extra Strength) ibuprofen 600 mg tablet 600 mg PO TID #30 tab 01/30/21 04/20/21 dextromethorphan-guaifenesin 10 10 ml PO Q4H PRN #250 ml 11/28/21 mg-100 mg/5 mL oral liquid prednisone 50 mg tablet 50 mg PO DAILY 5 Days #5 tab 11/28/21 Previous Rx's Medication Instructions Recorded albuterol sulfate 2.5 mg/0.5 mL 2.5 mg (0.5 mL) IH Q4H PRN #30 each 08/09/19 solution for nebulization albuterol sulfate 90 mcg/actuation 2 puff IH Q6H PRN #6.7 gm 10/03/19 aerosol inhaler acetaminophen 500 mg tablet 500 mg PO Q6H PRN #30 tab 01/30/21 (Tylenol Extra Strength) ibuprofen 600 mg tablet 600 mg PO TID #30 tab 01/30/21 dextromethorphan-guaifenesin 10 10 ml PO Q4H PRN #250 ml 11/28/21 mg-100 mg/5 mL oral liquid prednisone 50 mg tablet 50 mg PO DAILY 5 Days #5 tab 11/28/21 Allergies Allergy/AdvReac Type Severity Reaction Status Date / Time No Known Allergies Allergy Unverified 10/09/21 14:49 General Stated Complaint: RespSymp JORGE: 3 Review of Systems Narrative: 8 systems reviewed and otherwise negative. See HPI PFSH All Active Problems (Updated 11/28/21 @ 01:19 by Lawrence Prekins MD) Possible exposure to STD (Acute) COVID-19 (Acute) Right shoulder strain (Acute) Bronchitis (Acute) Cough (Acute) Closed head injury (Acute) Post-concussion headache (Acute) Contusion of face, scalp and neck (Acute) Bilateral carpal tunnel syndrome (Acute) s/p bilateral ECTR 01/30/2021. Medical History ADHD Anxiety Asthma BMI 45.0-49.9, adult Depression Diabetes Surgical History Abdominal hysterectomy (09/11/17) Supracervical hysterectomy with unilateral salpingectomy. Ovaries conserved. 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 section 2008, 2010 History of dilation and curettage Social History Smoking/Tobacco Use Status: Current every day Tobacco Type: cigarettes Smoking risk assessment performed?: Yes Alcohol Intake: current Alcohol Intake frequency: a few times a week Drug use: Daily Substance use type: marijuana Household members: children Number of Children: 3 Pets and animals: Yes Pets and animals: dog(s) What type of physical activity do you participate in: walking Seatbelt use: always Do you feel safe at home: Yes Do you feel safe in your relationship?: Yes Exam Narrative Exam Narrative: GEN: awake, alert, oriented 3. Pleasant, well groomed, interactive. HEAD: Normocephalic, atraumatic ENT: Mucous membranes moist, oropharynx unremarkable, External ear exam unremarkable EYES: PERRL, EOMI NECK: Full ROM, no IVAN, no menigismus CHEST/RESP: Nontender, cough noted, faint end expiratory wheeze bilaterally CARDIOVASCULAR: RRR, no murmur, rub demetrice. 2+ Rad pulse bilateral ABDOMEN: Soft, nontender, no mass. +Bowel sounds EXT: Full ROM, no edema, no rash Neuro: Grossly normal neurologic exam, conversant, interactive. Psych: Speech fluent, thoughts congruent, affect normal Course Vital Signs Vital signs: Vital Signs Temperature 37 C 11/27/21 23:41 Pulse 89 11/27/21 23:41 Respiratory Rate 18 11/27/21 23:41 Blood Pressure 122/68 11/27/21 23:41 Pulse Oximetry 98 11/27/21 23:41 Temperature 37 C 11/27/21 23:41 Temperature Source Tympanic 11/27/21 23:41 Pulse 89 11/27/21 23:41 Respiratory Rate 18 11/27/21 23:41 Respiratory Effort 11/27/21 23:48 Respiratory Depth Normal 11/27/21 23:48 Blood Pressure 122/68 11/27/21 23:41 Blood Pressure Position Supine 11/27/21 23:41 Pulse Oximetry 98 11/27/21 23:41 Oxygen Delivery Method Room Air 11/27/21 23:41 Oxygen Flow Rate 0 11/27/21 23:41 Pain Level 7 11/27/21 23:41
[2021-11-28 00:28] LABS: Abs Immature Grans 0.03 10^3/uL (0.0-0.06); Absolute Basophil Count 0.03 10^3/uL (0.0-0.2); Absolute Lymphocyte Count 2.74 10^3/uL (1.2-3.4); Absolute Monocyte Count 0.71 10^3/uL (0.1-0.8); Absolute Neutrophil Count 5.13 10^3/uL (1.2-6.7); Basophils % 0.3; Eosinophils % 1.1; HGB 13.6 g/dL (11.2-15.7); Immature Grans % 0.3; Lymphocytes % 31.4; MCH 28.9 pg (27.0-33.0); MCHC 33.2 % (32.0-36.0); MPV 8.3 fL (8.0-11.0); Monocytes % 8.1; Neutrophils % 58.8; Nucleated RBC 0 %; Platelet Count 282 10^3/uL (130-400); RBC 4.71 10^6/uL (3.93-5.22); RDW 12.3 % (11.7-14.6); RDW-SD 39.5 fL; WBC 8.74 10^3/uL (4.4-10.8)
[2021-11-28 00:41] LABS: ALT 28 U/L (14-59); AST 10 U/L (15-37); Albumin 3.6 g/dL (3.4-5.0); Alkaline Phosphatase 71 U/L (46-116); Anion Gap 8.5 mmol/L (3-11); BUN 12 mg/dL (7-18); Bilirubin, Total 0.3 mg/dL (0.2-1.0); CO2 27.5 mmol/L (21.0-32.0); CREATININE 0.9 mg/dL (0.55-1.02); Calcium 8.6 mg/dL (8.5-10.1); Chloride 103 mmol/L (98-107); Glucose 172 mg/dL (74-106); Potassium 3.8 mmol/L (3.5-5.1); Sodium 139 mmol/L (136-145)
--- NOTE | 2021-11-28 00:50 | DI.VRAD_ITS ---
PROCEDURE INFORMATION: Exam: XR Chest Exam date and time: 11/28/2021 00:15 Age: 31 years old Clinical indication: Shortness of breath; Chest wall pain; Additional info: Chest pain TECHNIQUE: Imaging protocol: XR of the chest. Views: 1 view. COMPARISON: CR XR CHEST 2V PA LATERAL 05/29/2021 10:53 FINDINGS: Lungs: Low lung volumes. No airspace consolidation. Pleural spaces: No pleural effusion. No pneumothorax. Heart/Mediastinum: No cardiomegaly. Bones/joints: No acute fracture. IMPRESSION: Negative portable chest. Dictated and Authenticated by: Rosaline Goff MD. Ordering:RAJINDER Bravo MD
[2021-11-28 01:04] LABS: Influenza A PCR Negative (Negative); Influenza B PCR Negative (Negative); RSV PCR Negative (Negative)
[2021-11-28 01:07] LABS: COVID-19 PCR Positive (Negative)
[2021-11-28 01:12] LABS: Source Nasopharynx
[2021-11-28] MEDS: Ketorolac 15 MG/ML VIAL IVP (01:39)
[2021-11-28] MEDS: methylPREDNISolone SUCC 125 MG VIAL IVP (01:39)
[2021-11-28] MEDS: Normal Saline 1,000 ML 1000 ML IV (01:39)
[2021-11-28] MEDS: ACETAMINOPHEN 1,000 MG/100 ML BTL 400 MG IVPB (01:39)
== END 2021-11-28 01:35 | disposition home or self-care (01) ==
PROVIDERS: Emergency Provider Emergency Medicine; PCP Family Medicine
DX: U07.1 COVID-19 (principal); R05.1 Acute cough
CPT/HCPCS: 80053; 87637; 96361; 96374; 96375; 99283; 71045; 85025; J0131; J1885; J2930

== ENCOUNTER 2022-03-13 20:40 | Emergency (ER) | payer MEDICAID, SELFPAY ==
[2022-03-13 20:44] VITALS: O2SAT 98
--- NOTE | 2022-03-13 20:54 | W.ED.GENAD ---
Discharge Plan Disposition Patient Disposition: HOME Condition: Good Discharge Details Clinical Impression: Blister (nonthermal), right foot, initial encounter Primary Care Provider: Zoe Mullins V ED Provider: Bhupendra Cantu Home Meds and New Rx's Prescriptions: New ciprofloxacin HCl [Cipro] 500 mg tablet 500 mg PO BID Qty: 20 0RF No Action gabapentin 300 mg capsule 300 mg PO BID ibuprofen 600 mg tablet 600 mg PO TID Qty: 30 0RF acetaminophen [Tylenol Extra Strength] 500 mg tablet 500 mg PO Q6H PRNQty: 30 0RF metformin 500 mg Tablet 500 mg PO HS albuterol sulfate 2.5 mg/0.5 mL solution for nebulization 2.5 mg IH Q4H PRN (Reason: bronchospasm) Qty: 30 0RF albuterol sulfate 90 mcg/actuation HFA aerosol inhaler 2 puff IH Q6H PRN (Reason: shortness of breath or wheezing) Qty: 6.7 0RF Discharge Instructions Instructions: Diabetic Foot Ulcers (ED) Additional Instructions: At this time thankfully your foot does not show evidence of a bacterial infection, however secondary to your diabetes and the nature of your skin condition in that area it is certainly a prime area for a bacterial infection. Please continue to apply antibacterial ointment to your foot twice to 3 times per day. Keep it elevated throughout the day. Stay off of it and do not apply pressure for the next week. Do not walk in bare feet anymore as you do have a high risk for infection. Take Tylenol and Motrin as needed for pain. Gently remove any old skin, and monitor closely for redness, worsening swelling, or pain. If you develop worsening swelling, redness, worsening pain, or fever please take the antibiotic as directed as the presence of the symptoms could represent a developing infection. If you notice any worsening of your symptoms, or any new symptoms such as vomiting, diarrhea, fever, chills, shortness of breath, chest pain, numbness, weakness, or fainting , please return immediately to the emergency department for reevaluation. Please follow up with your primary care provider as soon as possible for reassessment and reevaluation. As always, it was a pleasure participating in your medical care today. Stand Alone Forms: School Release Referrals: Zoe Mullins MD [Primary Care Provider] - Medical Decision Making This is a pleasant 31-year-old female who presents today for a lesion on the right foot. Patient states that her right foot is often dry and sometimes developed small blisters. Few days ago she was walking around barefoot at a local event, and she noticed an area of irritation on her right foot at the lateral aspect. Previously it has been a callus. It seemed to crack open, and then a clear discharge came out for the next day or so. It is developed mild irritation and pain when she applies weight now. She denies any fever or chills. Redness traveling up her leg. She denies any pain in her ankle or calf. Past medical history is positive for diabetes. She has been washing the area. She denies any other complaints at this time. Exam demonstrates a well-appearing female, right foot demonstrate an area of what appears to be a previous callus, that then split, and now the superficial tissue is beginning to erode. No evidence of cellulitis, or swelling. Bedside ultrasound shows no fluctuance or fluid pocket or edema of significance. No active infection at this time. Skin otherwise remains intact. At this point the lesion appears to strictly be superficial and has no deep components, however because of the patient's diabetic nature, as well as her she has been walking barefoot for quite some time there is potential risk for developing infection. We had a long discussion regarding the signs and symptoms that would reflect infection to make her aware. I will send her home with a prescription for Cipro, and have instructed her that if she does develop any redness worsening swelling worsening pain or other signs of infection we discussed together that she is to take it. I also discussed with her the risk factors both Cipro, and she understands. In the meantime will recommend keeping it elevated, applying antibiotic ointment, we will give crutches for home use so that she can stay off of it during work and life. Discussed red flags which to return. I have extensively reviewed the treatment plan and discharge instructions with the patient. I have addressed all patient concerns at this time. The patient was made aware of what symptoms to monitor for that would warrant a return to the emergency department. Discussed the plan with the patient, they demonstrate verbal understanding and agreement with our assessment and plan at this time. The documentation in this chart was dictated using [employer] dictation software. Please excuse any dictation errors. HPI General Date/Time Provider Initiated Documentation: 03/13/22 20:53. HPI Narrative: This is a pleasant 31-year-old female who presents today for a lesion on the right foot. Patient states that her right foot is often dry and sometimes developed small blisters. Few days ago she was walking around barefoot at a local event, and she noticed an area of irritation on her right foot at the lateral aspect. Previously it has been a callus. It seemed to crack open, and then a clear discharge came out for the next day or so. It is developed mild irritation and pain when she applies weight now. She denies any fever or chills. Redness traveling up her leg. She denies any pain in her ankle or calf. Past medical history is positive for diabetes. She has been washing the area. She denies any other complaints at this time. Related Data Home Medications Medication Instructions Recorded Confirmed metformin 500 mg tablet 500 mg PO HS 07/09/19 03/13/22 albuterol sulfate 2.5 mg/0.5 mL 2.5 mg (0.5 mL) inhalation Q4H PRN 08/09/19 03/13/22 solution for nebulization bronchospasm #30 ea albuterol sulfate 90 mcg/actuation 2 puff inhalation Q6H PRN 10/03/19 03/13/22 aerosol inhaler shortness of breath or wheezing #6.7 grams gabapentin 300 mg capsule 300 mg PO BID 11/22/20 03/13/22 acetaminophen 500 mg tablet 500 mg PO Q6H PRN #30 tabs 01/30/21 03/13/22 (Tylenol Extra Strength) ibuprofen 600 mg tablet 600 mg PO TID #30 tabs 01/30/21 03/13/22 ciprofloxacin HCl 500 mg tablet 500 mg PO BID #20 tabs 03/13/22 (Cipro) Previous Rx's Medication Instructions Recorded albuterol sulfate 2.5 mg/0.5 mL 2.5 mg (0.5 mL) inhalation Q4H PRN 08/09/19 solution for nebulization bronchospasm #30 ea albuterol sulfate 90 mcg/actuation 2 puff inhalation Q6H PRN 10/03/19 aerosol inhaler shortness of breath or wheezing #6.7 grams acetaminophen 500 mg tablet 500 mg PO Q6H PRN #30 tabs 01/30/21 (Tylenol Extra Strength) ibuprofen 600 mg tablet 600 mg PO TID #30 tabs 01/30/21 ciprofloxacin HCl 500 mg tablet 500 mg PO BID #20 tabs 03/13/22 (Cipro) Allergies Allergy/AdvReac Type Severity Reaction Status Date / Time No Known Allergies Allergy Unverified 03/13/22 20:52 General Stated Complaint: GenMedical JORGE: 4 Review of Systems All systems reviewed & are unremarkable except as noted in HPI and below PFSH All Active Problems Possible exposure to STD (Acute) COVID-19 (Acute) Blister (nonthermal), right foot, initial encounter (Acute) Right shoulder strain (Acute) Bronchitis (Acute) Cough (Acute) Closed head injury (Acute) Post-concussion headache (Acute) Contusion of face, scalp and neck (Acute) Bilateral carpal tunnel syndrome (Acute) s/p bilateral ECTR 01/30/2021. Medical History ADHD Anxiety Asthma BMI 45.0-49.9, adult Depression Diabetes Surgical History Abdominal hysterectomy (09/11/17) Supracervical hysterectomy with unilateral salpingectomy. Ovaries conserved. 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 section 2010 History of dilation and curettage Social History Smoking/Tobacco Use Status: Current every day Tobacco Type: cigarettes Smoking risk assessment performed?: Yes Alcohol Intake: current Alcohol Intake frequency: a few times a week Drug use: Daily Substance use type: marijuana Household members: children Number of Children: 3 Pets and animals: Yes Pets and animals: dog(s) What type of physical activity do you participate in: walking Seatbelt use: always Do you feel safe at home: Yes Do you feel safe in your relationship?: Yes Exam Narrative Exam Narrative: 1.Const: Well-nourished, Well-developed, appearing stated age 2.Eyes: PERRL, no conjunctival injection, and symmetrical lids. 3.ENT: Atraumatic external nose and ears. Moist MM. Neck: Symmetric, trachea midline, No thyromegaly. 4.CVS: +S1/S2, No murmurs or gallops. Peripheral pulses 2+ and equal in all extremities. Brisk capillary refill in all extremities. 5.RESP: Unlabored respiratory effort. Clear to auscultation bilaterally. No wheezes rales or rhonchi 6.GI: Soft, Nontender/Nondistended, No hepatosplenomegaly. No guarding or rebound. 7.MSK: Normocephalic/Atraumatic, Extremities w/o deformity or ttp No cyanosis or clubbing, Normal movement of all extremities 8.Skin: Right foot demonstrates an area on the plantar aspect of the foot on the midfoot region on the lateral aspect and appears to have been a callus, which subsequently split, and now has slow degeneration of the superficial skin tissues. The area is tender to the touch, but there is no redness or swelling especially when compared to the left foot. No active drainage at this time. No purulence or pus. Bedside ultrasound was performed and shows no evidence of fluid collection, abscess, or other significant abnormality. No atypical warmth. 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 Sensation grossly intact, no focal neurologic deficits. 10.Psych: (AAO) x3. Appropriate mood and affect Course Vital Signs Vital signs: Vital Signs Pulse Oximetry 98 03/13/22 20:44 Temperature Source Skin 03/13/22 20:44 Blood Pressure Position Sitting 03/13/22 20:44 Pulse Oximetry 98 03/13/22 20:44 Oxygen Delivery Method Room Air 03/13/22 20:44 Oxygen Flow Rate 0 03/13/22 20:44 Pain Level 10 03/13/22 20:44
== END 2022-03-13 21:30 | disposition home or self-care (01) ==
PROVIDERS: Emergency Provider Student in an Organized Health Care Education/Training Program; PCP Family Medicine
DX: S90.821A Blister (nonthermal), right foot, initial encounter (principal); E11.9 Type 2 diabetes mellitus without complications; J45.909 Unspecified asthma, uncomplicated; F17.210 Nicotine dependence, cigarettes, uncomplicated; Z79.84 Long term (current) use of oral hypoglycemic drugs; X58.XXXA Exposure to other specified factors, initial encounter; Y93.01 Activity, walking, marching and hiking
CPT/HCPCS: 99284

== ENCOUNTER 2022-03-17 16:22 | Outpatient (REF) | payer MEDICAID, SELFPAY | END 2022-03-17 16:23 | disposition home or self-care (01) | LOC: LBN 16:22 | PROVIDERS: PCP Family Medicine; Visit Provider Nurse Practitioner Family | DX: L03.115 Cellulitis of right lower limb (principal) | CPT/HCPCS: 87077; 87070; 87186; 87205 ==

== ENCOUNTER 2022-04-23 02:39 | Outpatient (CLI) | payer MEDICAID, SELFPAY ==
[2022-04-23 10:22] LABS: HCT 43.8 % (36.0-46.0); MCH 29.5 pg (27.0-33.0); MCHC 34.2 % (32.0-36.0); MCV 86 fL (80-95); MPV 8.3 fL (8.0-11.0); Platelet Count 308 10^3/uL (130-400); RBC 5.08 10^6/uL (3.93-5.22); RDW 11.8 % (11.7-14.6); RDW-SD 37.3 fL; WBC 6.69 10^3/uL (4.4-10.8)
[2022-04-23 10:54] LABS: ALT 31 U/L (14-59); AST 11 U/L (15-37); Albumin 3.6 g/dL (3.4-5.0); Alkaline Phosphatase 68 U/L (46-116); BUN 9 mg/dL (7-18); Bilirubin, Total 0.4 mg/dL (0.2-1.0); CREATININE 0.8 mg/dL (0.55-1.02); Calcium 8.5 mg/dL (8.5-10.1); Chloride 100 mmol/L (98-107); Estimated GFR 100.96 (mL/min/1.73m2); Glucose 228 mg/dL (74-106); Magnesium 1.6 mg/dL (1.8-2.4); Potassium 3.8 mmol/L (3.5-5.1); Sodium 134 mmol/L (136-145); TSH 1.41 uIU/mL (0.36-3.74); Total Protein 7.8 g/dL (6.4-8.2)
[2022-04-23 11:31] LABS: Calculated LDL 104 mg/dL (<100); Cholesterol 165 mg/dL (<200); Ferritin 100 ng/mL (8-252); Folate 5.6 ng/mL (8.6-20.0); HDL Cholesterol 41 mg/dL (40-60); Triglyceride 103 mg/dL (<150); Vitamin B12 335 pg/mL (193-986)
[2022-04-23 19:45] LABS: T3, Total 156 ng/dL (97-169)
[2022-04-24 04:48] LABS: Vitamin D 25 Total 11.6 ng/mL (30-100)
[2022-04-25 07:57] LABS: Homocysteine 7.9 umol/L (5.0-13.9)
[2022-04-25 12:32] LABS: Copper, Serum 113 mcg/dL (77-206)
[2022-04-25 12:33] LABS: Zinc, S 79 mcg/dL (60-106)
== END 2022-04-23 02:40 | disposition home or self-care (01) ==
LOC: LBO 02:39
PROVIDERS: PCP Family Medicine; Visit Provider Nurse Practitioner Psychiatric/Mental Health
DX: F43.10 Post-traumatic stress disorder, unspecified (principal)
CPT/HCPCS: 36415; 80053; 80061; 82306; 82525; 83090; 84630; 85027; 82607; 82728; 82746; 83036; 83735; 84439; 84443; 84480

== ENCOUNTER 2022-05-31 20:57 | Emergency (ER) | payer MEDICAID, SELFPAY ==
[2022-05-31] VITALS (50 sets, daily range): BP systolic 109–123; BP diastolic 55–70; PULSE 68–75; RESP 14–30; TEMP 36.8; O2SAT 98–100
--- NOTE | 2022-05-31 21:00 | RT.EKG_ITS ---
APPROVED REPORT Exam: Resting ECG Reason for Exam: chest pain Patient Location: E HR:73 bpm ECG Measurements Heart Rate [address] 162 P 7 QRSd 84 QRS 57 QT 355 T 34 QTc 392 Conclusion Sinus rhythm...normal P axis, V-rate 60- 99. Sinus. Normal axis. No STEMI. I have reviewed and interpreted ECG and agree with software generated interpretation.
--- NOTE | 2022-05-31 21:25 | ED.GENADUL_ITS ---
Discharge Plan Disposition Patient Disposition: HOME Condition: Improving Discharge Details Clinical Impression: Chest pain, Fatigue Primary Care Provider: Zoe Mullins V ED Provider: Elissa Tellez Home Meds and New Rx's Prescriptions: Continued gabapentin 300 mg capsule 300 mg PO BID ibuprofen 600 mg tablet 600 mg PO TID Qty: 30 0RF acetaminophen [Tylenol Extra Strength] 500 mg tablet 500 mg PO Q6H PRNQty: 30 0RF metformin 500 mg Tablet 500 mg PO HS albuterol sulfate 2.5 mg/0.5 mL solution for nebulization 2.5 mg IH Q4H PRN (Reason: bronchospasm) Qty: 30 0RF albuterol sulfate 90 mcg/actuation HFA aerosol inhaler 2 puff IH Q6H PRN (Reason: shortness of breath or wheezing) Qty: 6.7 0RF ciprofloxacin HCl [Cipro] 500 mg tablet 500 mg PO BID Qty: 20 0RF Discharge Instructions Instructions: Chest Pain (ED), Fatigue (ED) Additional Instructions: Your blood tests, EKGs and imaging today are reassuring and show no evidence of acute concerning or significant findings. Drink plenty of fluids and get plenty of rest. Alternate tylenol and motrin as needed and directed for pain. You can consider starting an [id number] medication for heartburn or reflux such as Pepcid or Prilosec once daily for the next 2 weeks. Follow up with your primary care doctor in 1 week for re-evaluation. Return to the emergency department with any worsening or new concerning symptoms. Discharge Data Discharge Physician: Elissa Tellez Medical Decision Making 2129 -- 32-year-old female with a history of obesity, asthma, ADHD, anxiety, depression, diabetes and hysterectomy presents with substernal chest tightness and shortness of breath since this morning worse after eating [employer] this evening and associated with right arm numbness, fatigue, headache and shortness of breath. Vitals within normal limits. EKG notes rate of 73, sinus, normal axis and no STEMI. Patient appears generally fatigued but nontoxic and answers questions appropriately. No focal deficits. Lungs clear bilaterally. Substernal chest is tender to palpation. Her abdomen is soft and nontender. Differential diagnosis includes chest wall strain, GERD, PUD, gastritis. History of presentation appears less like consistent with PE, CVA. Also consider COVID. Will obtain screening labs, UDS, CT head, chest x-ray and covid swab and give a dose of IV pepcid, toradol and gi cocktail and fluid bolus. Labs and imaging reviewed. Normal white blood cell count. D dimer within normal limits. Glucose 268 but with normal bicarb and anion gap. Troponin negative. Lipase within normal limits. Urinalysis notes trace ketones but no evidence of infection. UDS positive for THC. Alcohol negative. COVID-negative. CT head and chest x-ray negative. 0130 --repeat troponin negative. Repeat EKG unchanged. Attempted to reassess patient multiple times but she was in the bathroom each time. When able to reevaluate patient, she states she had she has started to have diarrhea. Discussed that her results are reassuring. Patient states her chest pain and headache has improved and she feels comfortable going home. Discussed that her symptom presentation and now development of diarrhea may be indicative of a viral illness, possibly after eating Contreras[employer]. She is advised to increase fluids, rest. Advised to follow up with the primary care doctor for re- evaluation. Usual and customary return precautions given prior to discharge. Medical Records Medical records reviewed: Yes I reviewed the patient's medical records. Imaging Data Radiologic Study: Radiologist's impression: CT Head Without Contrast Exam date and time: 05/31/2022 10:49 PM Age: 32 years old Clinical indication: Pain; Numbness / parasthesia; Right; Patient HX: R arm numbness, headache TECHNIQUE: Imaging protocol: Computed tomography of the head without contrast. COMPARISON: CT HEAD WO 10/26/2020 12:46 PM FINDINGS: Brain:? Mild volume loss No hemorrhage. Unremarkable white matter. No mass effect. Cerebral ventricles: No ventriculomegaly. Paranasal sinuses: Visualized sinuses are unremarkable. No fluid levels. Mastoid air cells: Visualized mastoid air cells are well aerated. Bones/joints: Unremarkable. No acute fracture. Soft tissues: Unremarkable. IMPRESSION: No acute intracranial abnormality. XR Chest Exam date and time: 05/31/2022 11:00 PM Age: 32 years old Clinical indication: Pain; Chest pressure TECHNIQUE: Imaging protocol: Radiologic exam of the chest. Views: 2 views. COMPARISON: XR PORTABLE CHEST AP 11/28/2021 12:15 AM FINDINGS: Lungs: Unremarkable. No consolidation. Pleural spaces: Unremarkable. No pleural effusion. No pneumothorax. Heart/Mediastinum:? Grossly stable Bones/joints: Unremarkable. IMPRESSION: No acute findings. Lab Data Lab results reviewed: Yes I reviewed the patient's lab results. Labs: Laboratory Tests Range/Units 05/31/22 05/31/22 05/31/22 21:15 21:15 21:15 WBC (4.4-10.8) 10^3/uL 9.68 RBC (3.93-5.22) 10^6/uL 4.88 Hgb (11.2-15.7) g/dL 14.2 Hct (36.0-46.0) % 42.1 MCV (80-95) fL 86 MCH (27.0-33.0) pg 29.1 MCHC (32.0-36.0) % 33.7 RDW (11.7-14.6) % 12.4 Plt Count (130-400) 10^3/uL 280 MPV (8.0-11.0) fL 8.6 Immature Gran % 0.3 Neutrophils % 55.6 Lymphocytes % 33.4 Monocytes % 9.2 Eosinophils % 1.1 Basophils % 0.4 Nucleated RBC % (0.0-0.3) % 0.0 Absolute Neutrophils (1.2-6.7) 10^3/uL 5.38 Absolute Lymphocytes (1.2-3.4) 10^3/uL 3.23 Absolute Monocytes (0.1-0.8) 10^3/uL 0.89 H Absolute Eosinophils (0.0-0.7) 10^3/uL 0.11 Absolute Basophils (0.0-0.2) 10^3/uL 0.04 D-Dimer (<500) ng/mlFEU 267 Sodium (136-145) mmol/L 137 Potassium (3.5-5.1) mmol/L 3.7 Chloride (98-107) mmol/L 102 Carbon Dioxide (21.0-32.0) mmol/L 27.5 Anion Gap (3-11) mmol/L 7.5 BUN (7-18) mg/dL 10 Creatinine (0.55-1.02) mg/dL 0.8 Est GFR (CKD-EPI 2020) (mL/min/1.73m2) 100.96 Glucose (74-106) mg/dL 268 H Calcium (8.5-10.1) mg/dL 8.9 Magnesium (1.8-2.4) mg/dL 1.5 L Total Bilirubin (0.2-1.0) mg/dL 0.1 L AST (15-37) U/L 12 L ALT (14-59) U/L 32 Alkaline Phosphatase (46-116) U/L 85 Troponin I (<or=60) ng/L < 50 Total Protein (6.4-8.2) g/dL 7.6 Albumin (3.4-5.0) g/dL 3.7 Lipase (73-393) U/L 49 Ethyl Alcohol (<10) mg/dL < 3.0 COVID-19 Source SARS-CoV-2 (PCR) (Negative) Range/Units 05/31/22 22:15 WBC (4.4-10.8) 10^3/uL RBC (3.93-5.22) 10^6/uL Hgb (11.2-15.7) g/dL Hct (36.0-46.0) % MCV (80-95) fL MCH (27.0-33.0) pg MCHC (32.0-36.0) % RDW (11.7-14.6) % Plt Count (130-400) 10^3/uL MPV (8.0-11.0) fL Immature Gran % Neutrophils % Lymphocytes % Monocytes % Eosinophils % Basophils % Nucleated RBC % (0.0-0.3) % Absolute Neutrophils (1.2-6.7) 10^3/uL Absolute Lymphocytes (1.2-3.4) 10^3/uL Absolute Monocytes (0.1-0.8) 10^3/uL Absolute Eosinophils (0.0-0.7) 10^3/uL Absolute Basophils (0.0-0.2) 10^3/uL D-Dimer (<500) ng/mlFEU Sodium (136-145) mmol/L Potassium (3.5-5.1) mmol/L Chloride (98-107) mmol/L Carbon Dioxide (21.0-32.0) mmol/L Anion Gap (3-11) mmol/L BUN (7-18) mg/dL Creatinine (0.55-1.02) mg/dL Est GFR (CKD-EPI 2020) (mL/min/1.73m2) Glucose (74-106) mg/dL Calcium (8.5-10.1) mg/dL Magnesium (1.8-2.4) mg/dL Total Bilirubin (0.2-1.0) mg/dL AST (15-37) U/L ALT (14-59) U/L Alkaline Phosphatase (46-116) U/L Troponin I (<or=60) ng/L Total Protein (6.4-8.2) g/dL Albumin (3.4-5.0) g/dL Lipase (73-393) U/L Ethyl Alcohol (<10) mg/dL COVID-19 Source Nasal/Nares SARS-CoV-2 (PCR) (Negative) Negative ECG Data Attestation: I personally reviewed and interpreted this ECG (s) as follows: Interpretation: #1 -- rate of 73, sinus, normal axis, no stemi. #2 -- rate of 67, sinus, normal axis, no stemi. HPI General Mode of arrival: ambulatory . Date/Time Provider Initiated Documentation: 05/31/22 20:59 . Limitations to Documentation: no limitations . Information obtained by: patient . HPI Narrative: Patient is a 32-year-old female with history of obesity, anxiety, depression, diabetes and hysterectomy who presents with multiple complaints, most specifically chest pain, right arm numbness, shortness of breath, headache, fatigue and confusion that mostly started after eating [employer] this evening. Patient states she awoke and felt substernal chest tightness earlier today and was feeling anxious. She states she had intermittent shortness of breath. She states this evening she had [employer] and within minutes felt worsening of her substernal chest tightness without radiation but associated with shortness of breath, right arm numbness, fatigue and confusion. Patient states she felt out of it and sleepy. She has not taken any medication for symptoms. She denies any known exposure to coronavirus. Denies that she denies any known fever, coughing, sore throat, ear pain, abdominal pain, vomiting, diarrhea or urinary symptoms. Related Data Home Medications Medication Instructions Recorded Confirmed metformin 500 mg tablet 500 mg PO HS 07/09/19 03/13/22 albuterol sulfate 2.5 mg/0.5 mL 2.5 mg (0.5 mL) inhalation Q4H PRN 08/09/19 03/13/22 solution for nebulization bronchospasm #30 ea albuterol sulfate 90 mcg/actuation 2 puff inhalation Q6H PRN 10/03/19 03/13/22 aerosol inhaler shortness of breath or wheezing #6.7 grams gabapentin 300 mg capsule 300 mg PO BID 11/22/20 03/13/22 acetaminophen 500 mg tablet 500 mg PO Q6H PRN #30 tabs 01/30/21 03/13/22 (Tylenol Extra Strength) ibuprofen 600 mg tablet 600 mg PO TID #30 tabs 01/30/21 03/13/22 ciprofloxacin HCl 500 mg tablet 500 mg PO BID #20 tabs 03/13/22 (Cipro) Previous Rx's Medication Instructions Recorded albuterol sulfate 2.5 mg/0.5 mL 2.5 mg (0.5 mL) inhalation Q4H PRN 08/09/19 solution for nebulization bronchospasm #30 ea albuterol sulfate 90 mcg/actuation 2 puff inhalation Q6H PRN 10/03/19 aerosol inhaler shortness of breath or wheezing #6.7 grams acetaminophen 500 mg tablet 500 mg PO Q6H PRN #30 tabs 01/30/21 (Tylenol Extra Strength) ibuprofen 600 mg tablet 600 mg PO TID #30 tabs 01/30/21 ciprofloxacin HCl 500 mg tablet 500 mg PO BID #20 tabs 03/13/22 (Cipro) Allergies Allergy/AdvReac Type Severity Reaction Status Date / Time No Known Allergies Allergy Unverified 03/13/22 20:52 General Stated Complaint: Chest Pain JORGE: 2 Review of Systems All systems reviewed & are unremarkable except as noted in HPI and below Constitutional Constitutional: Reports as per HPI, Denies chills, Reports fatigue, Denies fever(s) and Reports headache(s) Eyes Eyes: Denies blurry vision ENT Ears, Nose, Mouth, and Throat: Denies dizziness, Reports headache(s), Denies sore throat and Denies throat swelling Cardiovascular Cardiovascular: Reports chest pain and Reports dyspnea Respiratory Respiratory: Denies cough and Reports dyspnea Gastrointestinal Gastrointestinal: Denies abdominal pain, Denies diarrhea and Denies vomiting Genitourinary Genitourinary: Denies hematuria and Denies dysuria Musculoskeletal Musculoskeletal: Denies back pain and Reports numbness Integumentary/Breasts Skin/Breast: Denies lesions and Denies rash Neurologic Neurologic: Denies dizziness, Reports headache(s), Denies localized weakness and Reports numbness Endocrine Endocrine: Reports fatigue Allergic/Immunologic Allergic/Immunologic: Denies throat swelling PFSH All Active Problems (Updated 06/01/22 @ 02:33 by Elissa Tellez DO) Possible exposure to STD (Acute) COVID-19 (Acute) Chest pain (Acute) Fatigue (Acute) Right shoulder strain (Acute) Bronchitis (Acute) Cough (Acute) Closed head injury (Acute) Post-concussion headache (Acute) Contusion of face, scalp and neck (Acute) Bilateral carpal tunnel syndrome (Acute) s/p bilateral ECTR 01/30/2021. Medical History ADHD Anxiety Asthma BMI 45.0-49.9, adult Depression Diabetes Surgical History Abdominal hysterectomy (09/11/17) Supracervical hysterectomy with unilateral salpingectomy. Ovaries conserved. 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 section 2010 History of dilation and curettage Social History Smoking/Tobacco Use Status: Current every day Tobacco Type: cigarettes Smoking risk assessment performed?: Yes Alcohol Intake: current Alcohol Intake frequency: a few times a week Drug use: Daily Substance use type: marijuana Household members: children Number of Children: 3 Pets and animals: Yes Pets and animals: dog(s) What type of physical activity do you participate in: walking Seatbelt use: always Do you feel safe at home: Yes Do you feel safe in your relationship?: Yes Exam Const General: cooperative and anxious Orientation: alert, awake and oriented x3 HENMT Head: normal to inspection Ears: hearing grossly normal bilaterally Face and sinus: normal facial exam Throat: posterior oropharynx normal Eyes General: appearance normal, both eyes and all related structures Pupils: PERRL EOM: EOM intact bilaterally Neck Neck: normal visual inspection and No submandibular swelling Lymphatic: no lymphadenopathy noted Chest Chest: normal inspection of the chest and tenderness sternum Resp Effort & Inspection: normal respiratory effort and able to speak in complete sentences Auscultation: clear to auscultation bilaterally Cardio Rate: regular rate Rhythm: regular rhythm GI Inspection: normal to inspection and obesity Palpation: soft, not firm, not rigid and nontender Auscultation: hypoactive bowel sounds Back/Spine/Pelvis Thoracic/Lumbar Spine: thoracic and lumbar spine normal to inspection Pelvis: no pain with anterior-posterior compression Skin General skin exam: no rashes or lesions noted Neuro General: patient alert, patient awake, patient oriented x3, moves all extremities and no meningeal signs Cranial Nerves: CN's II-XI intact bilaterally Cognition: normal cognition Speech: speech normal Motor: muscle tone normal throughout and strength 5/5 throughout Sensory Exam: no sensory deficits noted Extrem General: normal to inspection, full ROM, capillary refill normal, no calf tenderness bilaterally and no edema Psych Appearance: grossly normal Mental Status: mental status grossly normal Speech and Movement: speech and movement normal Affect: normal affect Course Vital Signs Vital signs: Vital Signs Temperature 98.2 F 05/31/22 21:11 Pulse 75 05/31/22 21:11 Respiratory Rate 24 05/31/22 21:11 Blood Pressure 123/70 05/31/22 21:11 Pulse Oximetry 100 05/31/22 21:11 Temperature 98.2 F 05/31/22 21:11 Temperature Source Oral 05/31/22 21:11 Pulse 75 05/31/22 21:11 Respiratory Rate 24 05/31/22 21:11 Blood Pressure 123/70 05/31/22 21:11 Blood Pressure Position Supine 05/31/22 21:11 Pulse Oximetry 100 05/31/22 21:11 Oxygen Delivery Method Room Air 05/31/22 21:11 Oxygen Flow Rate 0 05/31/22 21:11 Pain Level 4 05/31/22 21:11
--- NOTE | 2022-05-31 21:30 | DI.RAD_ITS ---
Exam(s) XR CHEST 2V PA LATERAL EXAM: XR CHEST 2V PA LATERAL CLINICAL HISTORY: chest pain, sob, r/o acute disease TECHNIQUE: 2D digital imaging was performed. COMPARISON: CR,XR XR PORTABLE CHEST AP from 11/28/2021 FINDINGS: The heart is not enlarged. The lungs are clear and well expanded. No pleural effusion seen. Mediastin al contours appear intact. IMPRESSION: Normal chest. RADIATION DOSE DELIVERED: Total DLP
[2022-05-31 21:53] LABS: Abs Immature Grans 0.03 10^3/uL (0.0-0.06); Absolute Basophil Count 0.04 10^3/uL (0.0-0.2); Absolute Eosinophil Count 0.11 10^3/uL (0.0-0.7); Absolute Lymphocyte Count 3.23 10^3/uL (1.2-3.4); Absolute Monocyte Count 0.89 10^3/uL (0.1-0.8); Absolute Neutrophil Count 5.38 10^3/uL (1.2-6.7); Basophils % 0.4; Eosinophils % 1.1; HCT 42.1 % (36.0-46.0); HGB 14.2 g/dL (11.2-15.7); Immature Grans % 0.3; Lymphocytes % 33.4; MCH 29.1 pg (27.0-33.0); MCHC 33.7 % (32.0-36.0); MCV 86 fL (80-95); MPV 8.6 fL (8.0-11.0); Monocytes % 9.2; Neutrophils % 55.6; Platelet Count 280 10^3/uL (130-400); RBC 4.88 10^6/uL (3.93-5.22); RDW 12.4 % (11.7-14.6); RDW-SD 39.3 fL; WBC 9.68 10^3/uL (4.4-10.8)
[2022-05-31] MEDS: Ketorolac 30 MG/ML VIAL IVP (22:03)
[2022-05-31] MEDS: Normal Saline 1,000 ML 1000 ML IV (22:05)
[2022-05-31 22:11] LABS: ALT 32 U/L (14-59); AST 12 U/L (15-37); Albumin 3.7 g/dL (3.4-5.0); Alkaline Phosphatase 85 U/L (46-116); Anion Gap 7.5 mmol/L (3-11); BUN 10 mg/dL (7-18); Bilirubin, Total 0.1 mg/dL (0.2-1.0); CO2 27.5 mmol/L (21.0-32.0); CREATININE 0.8 mg/dL (0.55-1.02); Calcium 8.9 mg/dL (8.5-10.1); Chloride 102 mmol/L (98-107); Estimated GFR 100.96 (mL/min/1.73m2); Glucose 268 mg/dL (74-106); Lipase 49 U/L (73-393); Magnesium 1.5 mg/dL (1.8-2.4); Potassium 3.7 mmol/L (3.5-5.1); Sodium 137 mmol/L (136-145); Total Protein 7.6 g/dL (6.4-8.2); Troponin I < 50 ng/L (<or=60)
[2022-05-31 22:13] LABS: ETHANOL BLOOD < 3.0 mg/dL (<10)
[2022-05-31 22:19] LABS: Source Nasal/Nares
--- NOTE | 2022-05-31 22:30 | DI.CT_ITS ---
Exam(s) CT HEAD WO EXAM: CT HEAD WO CLINICAL HISTORY: headache, R arm numb, r/o acute cva. TECHNIQUE: Imaging Protocol: Axial computed tomography images with coronal and sagittal reformatted images were created and reviewed COMPARISON: CT CT HEAD WO from 10/26/2020 FINDINGS: The ventricular system is normal in appearance. No evidence of acute intracranial hemorrhage, mass effect, or midline shift. The orbital structures are unremarkable. The temporal bone structures appear intact. Calvarium: Normal. Visualized Paranasal sinuses/Mastoids: Clear. IMPRESSION: Normal cranial CT. RADIATION DOSE DELIVERED: 732.92mGy.cm Total DLP 732.92mGy.cm Total DLP !Error CTDIvol DATA REPOSITORY: All CT scans at this facility are submitted to the National Radiology Data Registry (NRDR) Dose Index Registry (DIR) with the [employer] ([employer]). RADIATION OPTIMIZATION: All CT scans at this facility use at least one of these dose optimization te chniques: automated exposure control; mA and/or kV adjustment per patient size (includes targeted exa ms where dose is matched to clinical indication); or iterative reconstruction.
[2022-05-31] MEDS: MAGNESIUM SULFATE 1 GM/100 ML BAG IVPB (22:43)
[2022-05-31 22:49] LABS: D-Dimer 267 ng/mlFEU (<500)
[2022-05-31 22:50] LABS: COVID-19 PCR Negative (Negative)
--- NOTE | 2022-05-31 23:13 | DI.VRAD_ITS ---
PROCEDURE INFORMATION: Exam: CT Head Without Contrast Exam date and time: 05/31/2022 10:49 PM Age: 32 years old Clinical indication: Pain; Numbness / parasthesia; Right; Patient HX: R arm numbness, headache TECHNIQUE: Imaging protocol: Computed tomography of the head without contrast. COMPARISON: CT HEAD WO 10/26/2020 12:46 PM FINDINGS: Brain: Mild volume loss No hemorrhage. Unremarkable white matter. No mass effect. Cerebral ventricles: No ventriculomegaly. Paranasal sinuses: Visualized sinuses are unremarkable. No fluid levels. Mastoid air cells: Visualized mastoid air cells are well aerated. Bones/joints: Unremarkable. No acute fracture. Soft tissues: Unremarkable. IMPRESSION: No acute intracranial abnormality. Dictated and Authenticated by: Daniel Navarro MD. Ordering:MEDINA Bowers MD
--- NOTE | 2022-05-31 23:13 | DI.VRAD_ITS ---
PROCEDURE INFORMATION: Exam: XR Chest Exam date and time: 05/31/2022 11:00 PM Age: 32 years old Clinical indication: Pain; Chest pressure TECHNIQUE: Imaging protocol: Radiologic exam of the chest. Views: 2 views. COMPARISON: XR PORTABLE CHEST AP 11/28/2021 12:15 AM FINDINGS: Lungs: Unremarkable. No consolidation. Pleural spaces: Unremarkable. No pleural effusion. No pneumothorax. Heart/Mediastinum: Grossly stable Bones/joints: Unremarkable. IMPRESSION: No acute findings. Dictated and Authenticated by: Daniel Navarro MD. Ordering:MEDINA Bowers MD
[2022-06-01] VITALS (8 sets, daily range): BP systolic 137–139; BP diastolic 67–80; PULSE 56–71; RESP 13–24; TEMP 36.9; O2SAT 99–100
--- NOTE | 2022-06-01 00:30 | RT.EKG_ITS ---
APPROVED REPORT Exam: Resting ECG Reason for Exam: chest pain Patient Location: E HR:67 bpm ECG Measurements Heart Rate 67 AXIS NH 175 P 5 QRSd 84 QRS 46 QT 396 T 27 QTc 419 Conclusion Sinus rhythm...normal P axis, V-rate 60- 99 Low voltage, precordial leads...precordial leads <1.0mV. Sinus. Normal axis. No STEMI. I have reviewed and interpreted ECG and agree with software generated interpretation.
[2022-06-01 01:15] LABS: Bilirubin Negative (Negative); Blood Negative (Negative); Clarity Clear (Clear); Glucose 500 mg/dL (Negative); Ketones Trace mg/dL (Negative); Leukocyte Esterase Negative (Negative); Nitrite Negative (Negative); Specific Gravity >= 1.030 (1.005-1.025); Urobilinogen 0.2 EU/dL (Up TO 0.2); pH 5.5 (5-8)
[2022-06-01 01:25] LABS: Troponin I < 50 ng/L (<or=60)
[2022-06-01 01:33] LABS: *AMPHETAMINES SCREEN URINE Negative (Negative); *BARBITURATES SCREEN URINE Negative (Negative); *BENZODIAZEPINES SCREEN URINE Negative (Negative); Cannabinoids THC Positive (Negative); Cocaine Screen,Urine Negative (Negative); METHADONE URINE SCREEN Negative (Negative); OPIATES URINE SCREEN Negative (Negative)
--- NOTE | 2022-06-01 01:35 | NUR.NOTE ---
Patient slept for a couple of hours, no distress. Awoke, stating she was feeling a little better but still very tired, Second troponin and second EKG performed; awaiting results. Patient given ice water. No other needs verbalized.
[2022-06-01 01:36] LABS: Tricyclic Antidepressants Negative (Negative)
== END 2022-06-01 02:40 | disposition home or self-care (01) ==
PROVIDERS: Emergency Provider Physician Assistant; PCP Family Medicine
DX: R07.2 Precordial pain (principal); R53.83 Other fatigue; R06.02 Shortness of breath; E11.9 Type 2 diabetes mellitus without complications; J45.909 Unspecified asthma, uncomplicated; F17.210 Nicotine dependence, cigarettes, uncomplicated; Z79.84 Long term (current) use of oral hypoglycemic drugs; Z20.822 Contact with and (suspected) exposure to COVID-19
CPT/HCPCS: 36416; 80053; 80307; 82962; 83690; 87635; 93005; 96361; 96374; 96375; 99284; 70450; 71046; 80320; 81003; 83735; 84484; 85025; 85379; 93010; 99285; J1885; J3475

== ENCOUNTER 2022-07-14 23:53 | Emergency (ER) | payer MEDICAID, SELFPAY ==
[2022-07-15 00:07] VITALS: BP 135/83; PULSE 86; RESP 16; TEMP 37; O2SAT 100
[2022-07-15] MEDS: Dexamethasone 10 MG/ML VIAL IVP (01:00)
[2022-07-15] MEDS: Azithromycin 250 MG TAB 500 MG PO (01:00)
[2022-07-15] MEDS: Amoxicillin 500 MG CAP PO (01:00)
--- NOTE | 2022-07-15 01:01 | ED.GENADUL_ITS ---
Discharge Plan Disposition Patient Disposition: Home Condition: Stable Discharge Details Clinical Impression: Cough Primary Care Provider: Zoe Mullins V ED Provider: Heron Andrade Home Meds and New Rx's Prescriptions: New amoxicillin 500 mg capsule 500 mg PO BID 7 Days Qty: 14 0RF azithromycin 250 mg tablet 250 mg PO DAILY 4 Days Qty: 4 0RF Rx Instructions: start on day 2 of therapy No Action gabapentin 300 mg capsule 300 mg PO BID ibuprofen 600 mg tablet 600 mg PO TID Qty: 30 0RF acetaminophen [Tylenol Extra Strength] 500 mg tablet 500 mg PO Q6H PRNQty: 30 0RF prazosin 1 mg capsule 1 mg PO .QHS lamotrigine 25 mg tablet 25 mg PO DAILY Label Comments: TAKE ONE TABLET BY MOUTH TWICE A DAY metformin 500 mg Tablet 500 mg PO HS albuterol sulfate 2.5 mg/0.5 mL solution for nebulization 2.5 mg IH Q4H PRN (Reason: bronchospasm) Qty: 30 0RF albuterol sulfate 90 mcg/actuation HFA aerosol inhaler 2 puff IH Q6H PRN (Reason: shortness of breath or wheezing) Qty: 6.7 0RF Medical Decision Making 42-year-old female presents with productive cough for the past several weeks. Nontoxic nonhypoxic resting comfortably no acute distress. Lungs clear however does have cough during examination. Given productive nature and longstanding cough will treat empirically for possible pulmonary infection. Patient's partn er is positive for strep throat. Will treat with amoxicillin and azithromycin. Home care instructions and return precautions given. Sign Out No HPI General Date/Time Provider Initiated Documentation: 07/15/22 00:27 . HPI Narrative: 32-year-old female presents with productive cough over the past several weeks Related Data Home Medications Medication Instructions Recorded Confirmed metformin 500 mg tablet 500 mg PO HS 07/09/19 07/15/22 albuterol sulfate 2.5 mg/0.5 mL 2.5 mg (0.5 mL) inhalation Q4H PRN 08/09/19 07/15/22 solution for nebulization bronchospasm #30 ea albuterol sulfate 90 mcg/actuation 2 puff inhalation Q6H PRN 10/03/19 07/15/22 aerosol inhaler shortness of breath or wheezing #6.7 grams gabapentin 300 mg capsule 300 mg PO BID 11/22/20 07/15/22 acetaminophen 500 mg tablet 500 mg PO Q6H PRN #30 tabs 01/30/21 07/15/22 (Tylenol Extra Strength) ibuprofen 600 mg tablet 600 mg PO TID #30 tabs 01/30/21 07/15/22 amoxicillin 500 mg capsule 500 mg PO BID 7 days #14 caps 07/15/22 azithromycin 250 mg tablet 250 mg PO DAILY 4 days #4 tabs 07/15/22 lamotrigine 25 mg tablet 25 mg PO DAILY 07/15/22 07/15/22 prazosin 1 mg capsule 1 mg PO .QHS 07/15/22 07/15/22 Previous Rx's Medication Instructions Recorded albuterol sulfate 2.5 mg/0.5 mL 2.5 mg (0.5 mL) inhalation Q4H PRN 08/09/19 solution for nebulization bronchospasm #30 ea albuterol sulfate 90 mcg/actuation 2 puff inhalation Q6H PRN 10/03/19 aerosol inhaler shortness of breath or wheezing #6.7 grams acetaminophen 500 mg tablet 500 mg PO Q6H PRN #30 tabs 01/30/21 (Tylenol Extra Strength) ibuprofen 600 mg tablet 600 mg PO TID #30 tabs 01/30/21 amoxicillin 500 mg capsule 500 mg PO BID 7 days #14 caps 07/15/22 azithromycin 250 mg tablet 250 mg PO DAILY 4 days #4 tabs 07/15/22 Allergies Allergy/AdvReac Type Severity Reaction Status Date / Time No Known Allergies Allergy Unverified 07/15/22 00:10 General Stated Complaint: RespSymp JORGE: 4 Review of Systems Narrative: Review of Systems Constitutional: negative Eyes: negative ENT: negative Cardiovascular: negative Respiratory: Cough Gastrointestinal: negative : negative Musculoskeletal: negative Skin: negative Neurologic: negative Psych: negative PFSH All Active Problems (Updated 07/15/22 @ 01:03 by Heron Andrade MD) Possible exposure to STD (Acute) COVID-19 (Acute) Cough (Acute) Right shoulder strain (Acute) Bronchitis (Acute) Cough (Acute) Closed head injury (Acute) Post-concussion headache (Acute) Contusion of face, scalp and neck (Acute) Bilateral carpal tunnel syndrome (Acute) s/p bilateral ECTR 01/30/2021. Medical History ADHD Anxiety Asthma BMI 45.0-49.9, adult Depression Diabetes Surgical History Abdominal hysterectomy (09/11/17) Supracervical hysterectomy with unilateral salpingectomy. Ovaries conserved. 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 section 2008, 2010 History of dilation and curettage Social History Smoking/Tobacco Use Status: Current every day Tobacco Type: cigarettes Smoking risk assessment performed?: Yes Alcohol Intake: current Alcohol Intake frequency: a few times a week Drug use: Daily Substance use type: marijuana Household members: children Number of Children: 3 Pets and animals: Yes Pets and animals: dog(s) What type of physical activity do you participate in: walking Seatbelt use: always Do you feel safe at home: Yes Do you feel safe in your relationship?: Yes Exam Narrative Exam Narrative: Physical Examination General: alert, awake, cooperative, resting comfortably, no acute distress HEENT: normocephalic, atraumatic; PERRL, EOM intact, conjunctiva normal; no nasal discharge; moist mucous membranes, oral and pharyngeal mucosa normal, tolerating secretions Neck: supple, trachea midline; full ROM Chest: normal to inspection Respiratory: normal respiratory effort, speaking in full sentences, clear to auscultation, no wheezing, rales or rhonchi Cardiac: regular rate, regular rhythm, S1S2 intact, no murmurs rubs or gallops GI: abdomen soft, non-tender, non-distended; no palpable mass or hepatosplenomegaly Skin: no lesions, rashes or trauma appreciated Neuro: AAOx3, normal speech, moving all extremities Psych: Appropriate mood and affect Course Vital Signs Vital signs: Vital Signs Temperature 37.0 C 07/15/22 00:07 Pulse 86 07/15/22 00:07 Respiratory Rate 16 07/15/22 00:07 Blood Pressure 135/83 07/15/22 00:07 Pulse Oximetry 100 07/15/22 00:07 Temperature 37.0 C 07/15/22 00:07 Temperature Source Temporal Artery Scan 07/15/22 00:07 Pulse 86 07/15/22 00:07 Respiratory Rate 16 07/15/22 00:07 Respiratory Effort 07/15/22 00:15 Respiratory Depth Normal 07/15/22 00:15 Blood Pressure 135/83 07/15/22 00:07 Blood Pressure Position Sitting 07/15/22 00:07 Pulse Oximetry 100 07/15/22 00:07 Oxygen Delivery Method Room Air 07/15/22 00:07 Oxygen Flow Rate 0 07/15/22 00:07 Pain Level 6 07/15/22 00:07
== END 2022-07-15 01:10 | disposition home or self-care (01) ==
PROVIDERS: Emergency Provider Emergency Medicine; PCP Family Medicine
DX: R05.1 Acute cough (principal)
CPT/HCPCS: 99283; J1100

== ENCOUNTER 2022-08-29 22:10 | Emergency (ER) | payer MEDICAID, SELFPAY ==
[2022-08-29 22:15] VITALS: BP 126/90; PULSE 90; RESP 16; TEMP 37.1; O2SAT 98
[2022-08-29 22:32] LABS: Bilirubin Negative (Negative); Blood Moderate (Negative); Clarity Clear (Clear); Glucose 500 mg/dL (Negative); Ketones Trace mg/dL (Negative); Leukocyte Esterase Negative (Negative); Nitrite Negative (Negative); Specific Gravity >= 1.030 (1.005-1.025)
[2022-08-29 22:43] LABS: Bacteria Few HPF (Negative); C & S Indicated? No; Crystals Negative HPF (Negative); Epithelial Cells Few HPF (Negative); Mucus Trace (Negative); WBC 0-2 HPF (0-5)
[2022-08-29] MEDS: Doxycycline Hyclate 100 MG, 2 CAPS/BTL PO (22:55)
--- NOTE | 2022-08-29 23:00 | NUR.NOTE ---
Referral to [facility] for [facility] cyst SARAHI per Lsia Munson, faxed the referral and put it in the urgent care technician's box for follow up assistance.Nursing Note:
--- NOTE | 2022-08-29 23:06 | W.ED.GENAD ---
Discharge Plan Disposition Patient Disposition: Home Condition: Stable Discharge Details Clinical Impression: Bartholin's cyst, Herpes Primary Care Provider: Zoe Mullins V ED Provider: Lisa Munson Home Meds and New Rx's Prescriptions: New valacyclovir [Valtrex] 1 gram tablet 1,000 mg PO BID Qty: 14 0RF Continued gabapentin 300 mg capsule 300 mg PO BID ibuprofen 600 mg tablet 600 mg PO TID Qty: 30 0RF acetaminophen [Tylenol Extra Strength] 500 mg tablet 500 mg PO Q6H PRNQty: 30 0RF prazosin 1 mg capsule 1 mg PO .QHS lamotrigine 25 mg tablet 25 mg PO DAILY Label Comments: TAKE ONE TABLET BY MOUTH TWICE A DAY metformin 500 mg Tablet 500 mg PO HS albuterol sulfate 2.5 mg/0.5 mL solution for nebulization 2.5 mg IH Q4H PRN (Reason: bronchospasm) Qty: 30 0RF albuterol sulfate 90 mcg/actuation HFA aerosol inhaler 2 puff IH Q6H PRN (Reason: shortness of breath or wheezing) Qty: 6.7 0RF No Action doxycycline hyclate 100 mg capsule 100 mg PO DAILY ibuprofen 800 mg tablet 800 mg PO Q8H Qty: 60 1RF Discharge Instructions Instructions: Viral Syndrome (ED) Additional Instructions: I have sent out gonorrhea and Chlamydia testing, herpes testing, and trichomonas testing, we will let you know if any of these test come back positive I have treated you with Valtrex for suspected herpes although this has not been confirmed, this medication will not harm you if you do test negative Please do not engage in any intercourse until you and your partner are both tested for STDs and your wound heals You should try to apply warm compresses or take warm baths as frequently as possible, multiple times a day will allow this to continue draining Use pads in your underwear to absorb the fluid You have been treated with doxycycline and for the abscess, I recommend you follow-up with her maintenance supervisor, I am listing their information below) on the follow-up list Apply warm compresses or take warm baths as frequently as possible and return earlier should you have worsening fever, chills, spreading redness, or with any new or worsening complaints, I recommend reassessment in 48 hours Yogurt daily while on antibiotic Take ibuprofen 600 mg every 8 hours with food Have given you several tablets of oxycodone, take it as needed, this is addictive and you should not drive for 8 hours after taking this medication Referrals: Myriam Shepherd DO [OSTEOPATHIC DOCTOR] - Discharge Data Discharge Date/Time-TO BE ENTERED AT DEPARTURE: 08/29/22 23:17 Medical Decision Making 32-year-old female with abscess on her labia for the last several days, worsened today Also concerned she may have herpes Tolerated I&D without incident Placed on doxycycline for 10 days Referral to [facility] for outpatient follow-up Recheck in 48 hours recommended Warm compresses discussed She will also be placed on Valtrex for suspected herpes infection, she has a herpes swab pending, GC chlamydia pending, and trichomonas swab pending Return precautions discussed and patient expressed understanding Medical Records Medical records reviewed: Yes I reviewed the patient's medical records. HPI General Date/Time Provider Initiated Documentation: 08/29/22 22:15. HPI Narrative: This 32-year-old female presents with cyst on her vagina for the past several days. She states that she was looking at her labia and noticed that she had lesions there was concern for herpes as her partner recently cheated. She is concerned that she has a secondary infection from touching the area. She denies any chance of . She denies any fever or chills. She denies any abdominal pain. She denies any additional symptoms. She denies any current vaginal discharge. She not been examined since her partner reported. Has had some intermittent drainage of the infected area. Related Data Home Medications Medication Instructions Recorded Confirmed metformin 500 mg tablet 500 mg PO HS 07/09/19 08/29/22 albuterol sulfate 2.5 mg/0.5 mL 2.5 mg (0.5 mL) inhalation Q4H PRN 08/09/19 08/29/22 solution for nebulization bronchospasm #30 ea albuterol sulfate 90 mcg/actuation 2 puff inhalation Q6H PRN 10/03/19 08/29/22 aerosol inhaler shortness of breath or wheezing #6.7 grams gabapentin 300 mg capsule 300 mg PO BID 11/22/20 08/29/22 acetaminophen 500 mg tablet 500 mg PO Q6H PRN #30 tabs 01/30/21 08/29/22 (Tylenol Extra Strength) ibuprofen 600 mg tablet 600 mg PO TID #30 tabs 01/30/21 08/29/22 lamotrigine 25 mg tablet 25 mg PO DAILY 07/15/22 08/29/22 prazosin 1 mg capsule 1 mg PO .QHS 07/15/22 08/29/22 valacyclovir 1 gram tablet 1,000 mg PO BID #14 tabs 08/29/22 (Valtrex) doxycycline hyclate 100 mg capsule 100 mg PO DAILY 09/02/22 ibuprofen 800 mg tablet 800 mg PO Q8H #60 tabs 09/02/22 09/02/22 Previous Rx's Medication Instructions Recorded albuterol sulfate 2.5 mg/0.5 mL 2.5 mg (0.5 mL) inhalation Q4H PRN 08/09/19 solution for nebulization bronchospasm #30 ea albuterol sulfate 90 mcg/actuation 2 puff inhalation Q6H PRN 10/03/19 aerosol inhaler shortness of breath or wheezing #6.7 grams acetaminophen 500 mg tablet 500 mg PO Q6H PRN #30 tabs 01/30/21 (Tylenol Extra Strength) ibuprofen 600 mg tablet 600 mg PO TID #30 tabs 01/30/21 valacyclovir 1 gram tablet 1,000 mg PO BID #14 tabs 08/29/22 (Valtrex) ibuprofen 800 mg tablet 800 mg PO Q8H #60 tabs 09/02/22 Allergies Allergy/AdvReac Type Severity Reaction Status Date / Time No Known Allergies Allergy Unverified 09/02/22 09:44 General Stated Complaint: Cellulitis JORGE: 3 Review of Systems All systems reviewed & are unremarkable except as noted in HPI and below PFSH All Active Problems (Updated 09/02/22 @ 10:02 by Myriam Shepherd DO) Diabetes (Chronic) Possible exposure to STD (Acute) COVID-19 (Acute) Bartholin's cyst (Acute) Herpes (Acute) Right shoulder strain (Acute) Bronchitis (Acute) Cough (Acute) Closed head injury (Acute) Post-concussion headache (Acute) Contusion of face, scalp and neck (Acute) Bilateral carpal tunnel syndrome (Acute) s/p bilateral ECTR 01/30/2021. Medical History ADHD Anxiety Asthma BMI 45.0-49.9, adult Depression Diabetes Surgical History Abdominal hysterectomy (09/11/17) Supracervical hysterectomy with unilateral salpingectomy. Ovaries conserved. 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 section 2008, 2010 History of dilation and curettage Social History Smoking/Tobacco Use Status: Current every day Tobacco Type: cigarettes Smoking risk assessment performed?: Yes Alcohol Intake: current Alcohol Intake frequency: a few times a week Drug use: Daily Substance use type: marijuana Household members: children Number of Children: 3 Pets and animals: Yes Pets and animals: dog(s) What type of physical activity do you participate in: walking Seatbelt use: always Do you feel safe at home: Yes Do you feel safe in your relationship?: Yes Exam Const General: cooperative, comfortable and no acute distress Eyes Sclera: sclerae normal Female genitals images: 1. My findings abscess noted, mild surrounding erythema Course Vital Signs Vital signs: Vital Signs Temperature 37.1 C 08/29/22 22:15 Pulse 90 08/29/22 22:15 Respiratory Rate 16 08/29/22 22:15 Blood Pressure 126/90 08/29/22 22:15 Pulse Oximetry 98 08/29/22 22:15 Temperature 37.1 C 08/29/22 22:15 Temperature Source Oral 08/29/22 22:15 Pulse 90 08/29/22 22:15 Respiratory Rate 16 08/29/22 22:15 Respiratory Effort 08/29/22 22:15 Blood Pressure 126/90 08/29/22 22:15 Blood Pressure Position Sitting 08/29/22 22:15 Pulse Oximetry 98 08/29/22 22:15 Oxygen Delivery Method Room Air 08/29/22 22:15 Oxygen Flow Rate 0 08/29/22 22:15 Pain Level 6 08/29/22 22:15 Lab/Test Results Lab/Test Results: 08/29/22 22:50 Vaginal Vaginitis Screen - Pending Laboratory Tests Range/Units 08/29/22 22:25 Urine Color (Yellow) Yellow Urine Clarity (Clear) Clear Urine pH (5-8) 6.0 Ur Specific [place] (1.005-1.025) >= 1.030 H Urine Protein (Negative) mg/dL Negative Urine Ketones (Negative) mg/dL Trace H Urine Blood (Negative) Moderate H Urine Nitrite (Negative) Negative Urine Bilirubin (Negative) Negative Urine Urobilinogen (Up TO 0.2) EU/dL 1.0 H Ur Leukocyte Esterase (Negative) Negative Urine RBC (0-2) HPF 3-5 H Urine WBC (0-5) HPF 0-2 Ur Epithelial Cells (Negative) HPF Few Urine Crystals (Negative) HPF Negative Urine Bacteria (Negative) HPF Few Urine Mucus (Negative) Trace Ur Culture Indicated? No Urine Glucose (Negative) mg/dL 500 H Procedures Abscess I/D Site: Bartholin's Gland Side (if applicable): Left Local Anesthetic: Lidocaine 1% Amount of anesthesia used (mL): 5 Technique: Incised with #11 Blade Amount of fluid expressed (mL): 5 Irrigation: Yes Packing used?: None
[2022-08-29 23:15] VITALS: BP 129/85; PULSE 87; RESP 16; O2SAT 98
[2022-09-01 11:35] LABS: HSV 1 DNA Result Negative (Negative); HSV 2 DNA Result Negative (Negative)
[2022-09-01 13:29] LABS: Chlamydia Result Negative (Negative); GC Result Negative (Negative)
== END 2022-08-29 23:17 | disposition home or self-care (01) ==
PROVIDERS: Emergency Provider Physician Assistant; PCP Family Medicine
DX: N75.0 Cyst of Bartholin's gland (principal); B00.9 Herpesviral infection, unspecified; J45.909 Unspecified asthma, uncomplicated; E11.9 Type 2 diabetes mellitus without complications; Z86.16 Personal history of COVID-19; Z79.84 Long term (current) use of oral hypoglycemic drugs
CPT/HCPCS: 36416; 56420; 82962; 87491; 87529; 87591; 99283; 81003; 81015; 87480; 87510; 87660

== ENCOUNTER 2022-11-22 08:23 | Emergency (ER) | payer MEDICAID, SELFPAY ==
[2022-11-22 08:25] VITALS: BP 142/63; PULSE 100; RESP 15; TEMP 36.8; O2SAT 93
[2022-11-22 08:29] VITALS: RESP 15
--- NOTE | 2022-11-22 08:30 | DI.RAD_ITS ---
Exam(s) XR PORTABLE CHEST AP EXAM: XR PORTABLE CHEST AP CLINICAL HISTORY: SOB. TECHNIQUE: 2D digital imaging was performed. COMPARISON: CR,XR XR CHEST 2V PA LATERAL from 05/31/2022 FINDINGS: Single AP portable view. Heart size is upper normal. The mediastinum is not widened. Lungs are clear. No infiltrates nor obvious pleural effusions. IMPRESSION: No acute pulmonary findings on this single AP portable view of the chest. DATA REPOSITORY: RADIATION DOSE DELIVERED:
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
[2022-11-22] MEDS: methylPREDNISolone SUCC 125 MG VIAL IVP (08:58)
[2022-11-22 09:16] LABS: Abs Immature Grans 0.02 10^3/uL (0.0-0.06); Absolute Basophil Count 0.06 10^3/uL (0.0-0.2); Absolute Lymphocyte Count 1.86 10^3/uL (1.2-3.4); Absolute Monocyte Count 0.72 10^3/uL (0.1-0.8); Absolute Neutrophil Count 4.12 10^3/uL (1.2-6.7); Basophils % 0.8; Eosinophils % 9.4; HCT 39.9 % (36.0-46.0); HGB 13.6 g/dL (11.2-15.7); Immature Grans % 0.3; Lymphocytes % 24.9; MCHC 34.1 % (32.0-36.0); MCV 85 fL (80-95); MPV 8.4 fL (8.0-11.0); Monocytes % 9.6; Platelet Count 293 10^3/uL (130-400); RBC 4.69 10^6/uL (3.93-5.22); RDW 12.4 % (11.7-14.6); WBC 7.48 10^3/uL (4.4-10.8)
[2022-11-22 09:27] LABS: ALT 63 U/L (14-59); AST 30 U/L (15-37); Albumin 3.6 g/dL (3.4-5.0); Alkaline Phosphatase 60 U/L (46-116); Anion Gap 6.6 mmol/L (3-11); BUN 4 mg/dL (7-18); Bilirubin, Total 0.4 mg/dL (0.2-1.0); CO2 28.4 mmol/L (21.0-32.0); CREATININE 0.7 mg/dL (0.55-1.02); Calcium 9.2 mg/dL (8.5-10.1); Chloride 103 mmol/L (98-107); Estimated GFR 118.51 (mL/min/1.73m2); Glucose 172 mg/dL (74-106); Magnesium 1.5 mg/dL (1.8-2.4); Potassium 3.4 mmol/L (3.5-5.1); Sodium 138 mmol/L (136-145); Total Protein 7.4 g/dL (6.4-8.2)
[2022-11-22] MEDS: Magnesium Oxide 400 MG TAB PO (09:40)
--- NOTE | 2022-11-22 10:23 | DI.VRAD_ITS ---
PROCEDURE INFORMATION: Exam: XR Chest Exam date and time: 11/22/2022 9:44 AM Age: 32 years old Clinical indication: Cough TECHNIQUE: Imaging protocol: Radiologic exam of the chest. Views: 1 view. COMPARISON: CR XR CHEST 2V PA LATERAL 05/31/2022 11:00 PM FINDINGS: Lungs: Unremarkable. No consolidation. Pleural spaces: Unremarkable. No pleural effusion. No pneumothorax. Heart/Mediastinum: Unremarkable. No cardiomegaly. Bones/joints: Unremarkable. IMPRESSION: No acute findings. Dictated and Authenticated by: Pierre Upton MD. Ordering:JAKE Valdivia MD
[2022-11-22] MEDS: Potassium Chloride 20 MEQ TABCR 40 MEQ PO (10:32)
== END 2022-11-22 10:37 | disposition home or self-care (01) ==
PROVIDERS: Emergency Provider Registered Nurse Emergency; PCP Family Medicine
DX: J45.901 Unspecified asthma with (acute) exacerbation (principal); E11.9 Type 2 diabetes mellitus without complications; Z79.84 Long term (current) use of oral hypoglycemic drugs; F17.210 Nicotine dependence, cigarettes, uncomplicated
CPT/HCPCS: 80053; 94640; 96374; 99284; 71045; 83735; 85025; J2930; J7613; J7644

== ENCOUNTER 2023-06-09 15:57 | Outpatient (REF) | payer MEDICAID, SELFPAY ==
[2023-06-09 19:37] LABS: Calculated LDL 92 mg/dL (<100); Cholesterol 146 mg/dL (<200); HDL Cholesterol 41 mg/dL (40-60); Triglyceride 67 mg/dL (<150)
[2023-06-09 19:51] LABS: Hemoglobin A1C 5.6 % (<5.7)
== END 2023-06-09 15:58 | disposition home or self-care (01) ==
LOC: NCHCN 15:57
PROVIDERS: PCP Family Medicine; Visit Provider Nurse Practitioner Family
DX: E11.9 Type 2 diabetes mellitus without complications (principal); N39.0 Urinary tract infection, site not specified; Z13.220 Encounter for screening for lipoid disorders; Z00.00 Encounter for general adult medical examination without abnormal findings
CPT/HCPCS: 80061; 83036; 87086

== ENCOUNTER 2024-03-03 18:01 | Emergency (ER) | payer MEDICAID, SELFPAY ==
[2024-03-03 18:15] VITALS: BP 151/106; PULSE 99; RESP 14; TEMP 37; O2SAT 98
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
[2024-03-03] MEDS: Ibuprofen 800 MG TAB PO (18:23)
[2024-03-03] MEDS: Acetaminophen 500 MG TAB 1000 MG PO (18:23)
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
--- OUTSIDE RECORDS SUMMARY | 2024-03-03 18:54 | XMS_ITS | Encounter Summary ---
Author Organization [facility] [place] [address] Care Team Providers Care Peanut Separator Name Role Phone None Primary Care Provider Unavailabl e Encounter Details Date Type Department Care Team ([facility] st Contact Info) Description 12/02/2018 Ancillary Procedure Radiology Library at [facility] [place] [id number] Reji Perez APRN [facility] [place] [address] Social History Tobacco Use Types Packs/Day Years Used Date Smoking Tobacco: Former Smokeless Tobacco: Never Alcohol Use Standard Drinks/Week Comments No 0 (1 standard drink = 0.6 oz pur e alcohol) Sex and Gender Information Value Date Recorded Sex Assigned at Not on file Gender Identity Not on file Sexual Orientation Not on file documented as of this encounter Plan of Treatment Not on file documented as of this encounter Procedures Procedure Name Priority Date/Time Associated Diagnosis Comments FILM LIBRARY STORAGE ONLY DX SPINE Routine 12/02/2018 12:00 AM EDT documented in this encounter Results * Film Library- Storage Only DX Spine (12/02/2018 12:00 AM EDT) Narrative ANNALISE - 01/27/2019 7:07 PM EDT This exam is auto-finalizing. It's purpose is for storage only. Reji Perez APRN IMMala [facility]M [facility] [place] documented in this encounter Visit Diagnoses Not on filedocumented in this encounter Care Teams Peanut Separator Relationship Specialty Start Date End Date None None PCP - General 05/29/17 09/02/21 documented as of this encounter
--- OUTSIDE RECORDS SUMMARY | 2024-03-03 18:54 | XMS_ITS | Encounter Summary ---
Author Organization [facility] [place] [address] Care Team Providers Care Real Estate Associate Attorney Name Role Phone None Primary Care Provider Unavailabl e Encounter Details Date Type Department Care Team (Latest Contact Info) Description 09/21/2017 Encounter Social History Tobacco Use Types Packs/Day Years Used Date Smoking Tobacco: Former Smokeless Tobacco: Never Alcohol Use Standard Drinks/Week Comments No 0 (1 standard drink = 0.6 oz pur e alcohol) Sex and Gender Information Value Date Recorded Sex Assigned at Not on file Gender Identity Not on file Sexual Orientation Not on file documented as of this encounter Miscellaneous Notes * Note - Denise Monteiro RN - 09/21/2017 12:20 PM EST This note was copied from a baby's chart. Spoke with this Mom at the bedside. She states her supply has increased from 7cc per pumping to about 30cc. She is double pumping using a Lactina pump but is having some nipple discomfort and has tiny fine cracks on her nipples. She has 21mm flanges. She is taking a galactagogue given to her by a friend. Not certain of what it is but it has helped. Given Lactina instructions, Motherlove cream andHydrogels. Gave her handouts on sore nipples and Strategies to increase production. Highlighted theMore Milk Plus special Blend and encouraged her to keep putting the baby to breast before giving the bottle as that would be good for both of them. Baby will be tried in a crib and has been eating well, so Mom is getting excited about discharge. Continue to follow. Denise Monteiro RN, IBCLC [facility] documented in this encounter Plan of Treatment Not on file documented as of this encounter Visit Diagnoses Not on filedocumented in this encounter Care Teams Real Estate Associate Attorney Relationship Specialty Start Date End Date None None PCP - General 05/29/17 09/02/21 documented as of this encounter
--- OUTSIDE RECORDS SUMMARY | 2024-03-03 18:54 | XMS_ITS | Clinical Summary ---
Author Organization [facility] [place] [address] Care Team Providers Care Maori Liaison Adviser Name Role Phone Sima Sanchez APRN Primary Care Provider [phone] Allergies Active Allergy Reactions Criticality Noted Date Comments Red Blood Cells Other (See Comments) High 09/11/2017 Antibodies-Difficult to Crossmatch DO NOT REMOVE Please contact the Blood Bank at [phone] for questions. Medications No known medications Active Problems Problem Noted Date Diagnosed Date Encounter for insertion of i ntrauterine contraceptive device 09/11/2017 Jka antibody positive 09/11/2017 BMI 45.0-49.9, adult 09/02/2017 Asthma 07/28/2017 Vasa previa 07/09/2017 Overview (07/09/2017): 0.9cm lateral to internal os Insulin controlled gestation al diabetes mellitus (GDM): diagnosed at 7 weeks gestation 05/29/2017 Previous section x 2 05/29/2017 Resolved Problems Problem Noted Date Diagnosed Date Resolved Date Placenta previa centralis in second trimester 05/29/20 17 07/09/2017 Immunizations Name Administration Dates Next Due Tdap 08/03/2017 Family History Medical History Relation Comments Diabetes Maternal Grandfather Hyperlipidemia Maternal Grandfather Hypertension Maternal Grandfather Breast Cancer Maternal Grandmother Diabetes Maternal Grandmother Hyperlipidemia Maternal Grandmother Hypertension Maternal Grandmother Diabetes Mother HIV/AIDS Mother Hyperlipidemia Mother Hypertension Mother Relation Status Comments Maternal Grandfather Maternal Grandmother Mother Social History Tobacco Use Types Packs/Day Years Used Date Smoking Tobacco: Former Smokeless Tobacco: Never Alcohol Use Standard Drinks/Week Comments No 0 (1 standard drink = 0.6 oz pur e alcohol) Sex and Gender Information Value Date Recorded Sex Assigned at Not on file Gender Identity Not on file Sexual Orientation Not on file Last Filed Vital Signs Vital Sign Reading Time Taken Comments Blood Pressure 118/70 10/27/2017 2:22 PM EST Pulse 93 10/27/2017 2:22 PM EST Temperature 36.5 ??C (97.7 ??F) 09/15/2017 9:54 AM ES T Respiratory Rate 18 09/15/2017 9:54 AM EST Oxygen Saturation 100% 09/15/2017 9:57 AM EST Inhaled Oxygen Concentration - - Weight 101.4 kg (223 lb 9.6 oz) 10/27/2017 2:22 PM EST Height 149.9 cm (4' 11) 09/10/2017 5:32 PM EST Body Mass Index 45.16 09/10/2017 5:32 PM EST Plan of Treatment Health Maintenance Due Date Last Done Comments HIV screen 2009 Hepatitis C Screening 2009 Hepatitis B vaccine (0-59 yrs) (1) 2010 HPV test 2021 PAP Smear 2021 Covid-19 Vaccine (1 - 2022- season) 2023 Influenza (Flu) vaccine (1 o f 1 - Influenza standard series) 04/24/2024 Tetanus vaccine 08/03/2027 08/03/2017 Tdap adult Completed 08/03/2017 Advance Directives * Full Code (Latest Code Status on File) Date Activated Date Inactivated Comments 07/28/2017 5:51 PM 09/15/2017 8:45 PM Question Answer Comments Does patient have capacity to make decision: Yes Care Teams Maori Liaison Adviser Relationship Specialty Start Date End Date Sima Sanchez, TRESTLE MAINTERNANCE LABORER PCP - General Family Medicine 09/03/21
--- OUTSIDE RECORDS SUMMARY | 2024-03-03 18:54 | XMS_ITS | Encounter Summary ---
Author Organization [facility] [place] [address] Care Team Providers Care Creative Coordinator Name Role Phone None Primary Care Provider Unavailabl e Encounter Details Date Type Department Care Team ([facility] st Contact Info) Description 01/27/2019 7:10 PM EDT Ancillary Procedure Radiology Library at [facility] [address] Reji Perez [place] [facility] [place] [address] Social History Tobacco Use Types Packs/Day Years [...] Associated Diagnosis Comments FILM LIBRARY STORAGE ONLY MR SPINE Routine 01/27/2019 7:08 PM EDT documented in this encounter Results * Film Library- Storage Only MR Spine (01/27/2019 7:08 PM EDT) Narrative ANNALISE - 01/27/2019 7:08 PM EDT This exam is auto-finalizing. It's purpose is for storage only. Reji Perez APRN IMG FILM LIBRARY ORDERABLES [facility] [place] documented in this encounter Visit Diagnoses Not on filedocumented in this encounter Care Teams Creative Coordinator Relationship Specialty Start Date End Date None None PCP - General 05/29/17 09/02/21 documented as of this encounter
--- OUTSIDE RECORDS SUMMARY | 2024-03-03 18:54 | XMS_ITS | Encounter Summary ---
Author Organization [facility] [place] [address] Care Team Providers Care Drug Safety Scientist Name Role Phone None Primary Care Provider Unavailabl e Encounter Details Date Type Department Care Team ([facility] st Contact Info) Description 03/29/2021 2:00 PM EDT Notes Only General Surgery at [facility] [place] [address] Social History Tobacco Use Types Packs/Day Years Used Date Smoking Tobacco: Former Smokeless Tobacco: Never Alcohol Use Standard Drinks/Week Comments No 0 (1 standard drink = 0.6 oz pur e alcohol) Sex and Gender Information Value Date Recorded Sex Assigned at Not on file Gender Identity Not on file Sexual Orientation Not on file documented as of this encounter Progress Notes * Lisa Zabala - 03/29/2021 2:00 PM EDT Patient attended the [facility] Intro to Bariatric Surgery for [facility] on 03/29/2021 documented in this encounter Plan of Treatment Not on file documented as of this encounter Visit Diagnoses Not on filedocumented in this encounter Care Teams Drug Safety Scientist Relationship Specialty Start Date End Date None None PCP - General 05/29/17 09/02/21 documented as of this encounter
--- OUTSIDE RECORDS SUMMARY | 2024-03-03 18:54 | XMS_ITS | Encounter Summary ---
Author Organization Formerly [facility] [place] [address] Care Team Providers Care Cyber Workforce Developer And Manager Name Role Phone None Primary Care Provider Unavailabl e Reason for Visit * Reason Comments Care Encounter Details Date Type Department Care Team (Latest Contact Info) Description 10/27/2017 2:15 PM EST Visit Obstetrics [place] [address] Li Sepulveda MD [facility] OBSTETRICS & [place] [address] History of gestational diabetes; follow-up Social History Tobacco Use Types Packs/Day Years Used Date Smoking Tobacco: Former Smokeless Tobacco: Never Alcohol Use Standard Drinks/Week Comments No 0 (1 standard drink = 0.6 oz pur e alcohol) Sex and Gender Information Value Date Recorded Sex Assigned at Not on file Gender Identity Not on file Sexual Orientation Not on file documented as of this encounter Last Filed Vital Signs Vital Sign Reading Time Taken Comments Blood Pressure 118/70 10/27/2017 2:22 PM EST Pulse 93 10/27/2017 2:22 PM EST Temperature - - Respiratory Rate - - Oxygen Saturation - - Inhaled Oxygen Concentration - - Weight 101.4 kg (223 lb 9.6 oz) 10/27/2017 2:22 PM EST Height - - Body Mass Index 45.16 09/10/2017 5:32 PM EST documented in this encounter Progress Notes * Li Sepulveda MD - 10/27/2017 2:15 PM EST Weeks 6 weeks Mode of delivery hysterectomy complicated by Vasa previa Delivery complications Need or hysterectomy complications no General well being general Mood Has a therapist Resumed intercourse no Resumed menses N/A Symptoms of incontinence no Breast or bottle feeding bottle Current contraception N/A Emergency contraception discussed N/A Prior Pap smears No abnormal Pap. Last 2016 Need for OGTT Y/N yes Discuss anticipated health risks Yes. Diabetes and obesity No current outpatient prescriptions on file prior to visit. No current facility-administered medications on file prior to visit. Allergies Allergen Reactions ??? Red Blood Cells Other (See Comments) Antibodies-Difficult to Crossmatch DO NOT REMOVE Please contact the Blood Bank at [phone] for questions. Objective: BP 118/70 Pulse 93 Wt 101.4 kg (223 lb 9.6 oz) ? No BMI 45.16 kg/m2 Examination General- Well appearing woman in no physical distress Abdomen - No mass or HSM Surgical wound well healed Extremities - No edema Psych: emotionally distressed Assessment: Normal physical recovery from and delivery with hysterectomy. She is struggling with the anger and grief over losing her reproductive capacity due to the hysterectomy. She was relieved that she did not have an oophorectomy. She understands that the hysterectomywas medically needed. She knows that she does not have the financial resources to do ovulation induction with an eye to by gestational carrier. She is currently seeing a therapist and is fin ding some benefit from that she describes strain on her interpersonal relationships. Plan: I encouraged her to remain in therapy. I recommended strongly that she do her 75 g glucose tolerance test tomorrow. She had been reluctantto do so. Resume routine health maintenance care. Pap smear not due today. Contraception n/a Recommended to resume well woman care with PCP Li Sepulveda MD documented in this encounter Plan of Treatment Not on file documented as of this encounter Visit Diagnoses Diagnosis History of gestational diabetes Personal history of gestational diabetes follow-up Routine follow-up documented in this encounter Care Teams Cyber Workforce Developer And Manager Relationship Specialty Start Date End Date None None PCP - General 05/29/17 09/02/21 documented as of this encounter
--- OUTSIDE RECORDS SUMMARY | 2024-03-03 18:54 | XMS_ITS | Encounter Summary ---
Author Organization [facility] [place] [address] Care Team Providers Care Thread Separator Name Role Phone None Primary Care Provider Unavailabl e Encounter Details Date Type Department Care Team ([facility] st Contact Info) Description 09/30/2017 Telephone Obstetrics [facility]necology at [facility] [id number] Swapna Crawford RN Social History Tobacco Use Types Packs/Day Years Used Date Smoking Tobacco: Former Smokeless Tobacco: Never Alcohol Use Standard Drinks/Week Comments No 0 (1 standard drink = 0.6 oz pur e alcohol) Sex and Gender Information Value Date Recorded Sex Assigned at Not on file Gender Identity Not on file Sexual Orientation Not on file documented as of this encounter Miscellaneous Notes * Telephone Encounter - Swapna Crawford RN - 09/30/2017 3:08 PM EST Pam delivered on 09/11/17 by repeat c/s with hysterectomy due to a vasa previa with adhesive placenta tissue. She was 34 weeks. A message has been left that I have called, a routine post follow up. documented in this encounter Plan of Treatment Not on file documented as of this encounter Visit Diagnoses Not on filedocumented in this encounter Care Teams Thread Separator Relationship Specialty Start Date End Date None None PCP - General 05/29/17 09/02/21 documented as of this encounter
--- OUTSIDE RECORDS SUMMARY | 2024-03-03 18:56 | XMS_ITS | Encounter Summary ---
Author Organization [facility] Address [facility] [place] [address] Care Team Providers Care Gsa Coordinator Name Role Phone None Primary Care Provider Unavailabl e Reason for Visit * Auth/Cert Specialty Diagnoses / Procedures Referred By Jose Enrique velazco Referred To Contact Diagnoses Vasa previa Procedures JUDSON IPI Referral ID Status Reason Start Date Expiration Date Visits Re quested Visits Authorized [id number] 1 1 Encounter Details Date Type Department Care Team (Latest Contact Info) Description 07/28/2017 2:52 PM EST - 09/15/2017 6:34 PM EST [place] [address] Li Sepulveda MD [facility] OBST[facility]YNECOLOGY [place] [id number] Yeny Waterman MD [facility] [place] [address] Vasa previa, single or unspecified fetus Discharge Disposition: Home Social History Tobacco Use Types Packs/Day Years [...] Sign Reading Time Taken Comments Blood Pressure 110/64 09/15/2017 9:54 AM EST Pulse 93 09/15/2017 9:54 AM EST Temperature 36.5 ??C (97.7 ??F) 09/15/2017 9:54 AM ES T Respiratory Rate 18 09/15/2017 9:54 AM EST Oxygen Saturation 100% 09/15/2017 9:57 AM EST Inhaled Oxygen Concentration - - Weight 104.6 kg (230 lb 9.6 oz) 09/10/2017 5:32 PM EST Height 149.9 cm (4' 11) 09/10/2017 5:32 PM EST Body Mass Index 46.58 09/10/2017 5:32 PM EST documented in this encounter Discharge Summaries * Jhonathan Robertson MD - 09/14/2017 4:10 PM EST Discharge Summary Patient Name: Pam Lake Patient Age: 27 y.o. Language: Iranian Race: Black or Ethnicity: OR Admit date: 07/28/2017 Discharge date and time: 09/15/2017 4:11 PM Attending Physician: Yeny Waterman MD Discharge Physician: Chely Sin MD Care Provider: Dr. Isela Blunt Referring Hospital: [facility] Follow-up Recommendations for Providers: -- Follow up with MFM provider on 09/17/17 -- 2 week depression screen -- 6 week visit with 2hr GTT -- Final pathology Inpatient Provider Contact Information: [facility] Department, Discharge Diagnoses (Hospital Problems) and Secondary Diagnoses (Chronic Problems) Active Hospital Problems Diagnosis ??? Encounter for insertion of intrauterine contraceptive device ??? Jka antibody positive ??? BMI 45.0-49.9, adult ??? Asthma ??? Vasa previa ??? Previous section x 2 ??? Insulin controlled gestational diabetes mellitus (GDM): diagnosed at 7 weeks gestation Resolved Hospital Problems Diagnosis Date Resolved No resolved problems to display. There are no active non-hospital problems to display for this patient. Operations / Major Procedures: 09/11/2017 1. Elective repeat mid-transverse section 2. hysterectomy (supracervical) with left distal partial salpingectomy 3. Diagnostic cystoscopy Indication for Admission: Monitoring in setting of vasa previa Admission History Pam Lake is a 27 y.o. at 27w2d gestation who presents for monitoring in the setting of vasa previa. States she is generally feeling well since nausea of first trimester resolved. ?? Her has been complicated by: 1. GDM diagnosed at 7 weeks gestation: on 20 units nightly and 6 U NPH insulin every morning. Fasting glucose in the 80s, and 1 hour post-prandial is 101. 2. Previous x2 3. Asthma: Uses albuterol rescue inhaler twice annually 4. Marijuana use: Used an eighth of MJ weekly throughout 5. Morbid obesity: BMI 47 today 6. History of depression: Not on medications in ?? Review of Systems- Negative to complete review except as noted in the HPI. Hospital Course Including Delivery and Events Pam was admitted for monitoring in the setting of known vasa previa. At this time she was consented for section. She received a course of steroids (complete on //17). testing with daily NST was consistently reassuring. Treatment was continued for her other medical conditions, including gDM-A2 on insulin, asthma, and depression. On hospital day #15, she underwent repeat ultrasound to determine if her vasa previa had resolved. It had not, and she therefore planned on [facility] the [facility]. Her section was scheduled at 34 weeks. On HD #18, she was started on magnesium for neuro protection (complete on 08/15). On HD#22 she was given a rescue course of steroids [id number] (complete on 08/20). Insulin was titrated up to NPH 20 / 24 U by day of delivery. On HD # 26 patient underwent a planned C/S and additional procedures as above. Findings notable for: ?? Dense adhesions present from anterior uterus to anterior and right lateral abdominal wall / posterior rectus sheath. ? Viable female in cephalic presentation, weighing 2035 grams and Apgars of 4, 7 and 9. ? Placenta previa with placenta morbidly adhered to lower uterine segment and overlying the cervix. ? Uterine atony and hemorrhage. ?? Normal appearing bilateral fallopian tubes and ovaries. ?? Cystoscopy performed at conclusion of the case and intact bladder noted with bilateral jets of methylene blue stained urine. ? KUB without evidence of retained objects Procedure complicated by hysterectomy and transfusion of 1 unit of blood. Total EBL was 2500 ml. Please see operative note for more details. On POD #0 she was transferred from PACU back to the floor. Postoperatively the patient recovered well. On POD#1, the patient's hemoglobin trended from 10.3 to7.1. The patient was asymptomatic and desired management with ferrous sulfate versus an additional blood transfusion. Pain was managed with PO medication. She was ambulating, tolerating regular diet,voiding freely, and passing flatus. She was pumping for nutrition. Her incision was well-healing with steri strips in place. Her fundal exam was as expected and her lochia was within normal limits. She was discharged to [facility] in good condition and good spirits on POD #4 with a POD#6 check in outpatient visit with MFM, a 2 week depression screen, and a routine 6 week follow-up with glucola testing in place. The patient is being discharged after a hysterectomy. Non- pharmacological modalities and non-opioids were not adequately effective for the patient's pain. Due to the patient's pain severity,20 tablets of 5mg mg oxycodone were prescribed. Acute Opioid Prescribing: Opioid PDMP 06/02/2017 [place] PDMP Query Date 09/13/2017 [place] PDMP Query Date 09/13/2017 [place] PDMP Query Date 09/13/2017 Opioid Risk Assessment 06/02/2017 ORT Risk Assessment Moderate (4-7) Acute Opioid Specific Questions 06/02/2017 Date Acute Consent signed 09/10/2017 Considered the risk of opioid misuse, abuse, diversion? Yes Considered options for non-pharmacological modalities and non-opioid therapy? Yes Some recent data might be hidden Delivery Information Information for the patient's : Michele Lake Girl [[id number]] INFORMATION Baby Jess Lake 09/11/2017 11:58 AM by Lower Segment Transverse Sex: female Gestational Age: 34w0d Measurements: Weight: 4 lb 7.8 oz (2035 g) APGARS One Minute Five Minutes Ten Minutes Totals: 4 7 9 EBL: 2500cc Vital signs at Discharge: BP: 110/64, Heart Rate: 93, Temp: 36.5 ??C (97.7 ??F), Resp: 18, BMI (Calculated): 46.57 Height: 149.9 cm (4' 11) (09/10/17 173) Weight: 104.6 kg (230 lb 9.6 oz) (09/10/17 173) Functional and Cognitive status: Fully functional and cognitively intact Important Studies and Lab Data: Recent Labs 09/15/175 09/14/17 0810 09/13/17 0625 WBC 5.9 6.8 8.8 HGB 7.0* 6.6* 7.1* HCT 20.8* 19.4* 20.9* PLATELET 247 213 187 Recent Labs 09/15/1741409/14/17 0810 09/13/17 0625 09/12/17 0610 09/11/17 1457 NA 140 140 137 135 138 K 3.5 3.7 3.7 4.3 4.1 CL 102 102 99 99 103 CO2 27 27 24 24 21* BUN 9 6* 7* 5* 6* CREATININE 0.93 0.54* 0.65* 0.57* 0.44* MAGNESIUM -- -- -- 0.63* 0.52* Studies: 07/28/2017 OB Ultrasound: 2nd Trimester Summary -- Single intrauterine with a gestational age of 27w 4d based on LMP (01/16/17). Composite age based on the current ultrasound alone is 26w 4d. -- Current growth parameters are consistent with prior dating indicating normal growth. -- Amniotic fluid volume is normal. -- Transvaginal ultrasound done for placenta location. Low lying placenta is seen. Umbilical blood vessels run immediately adjacent to the cervical consistent with vasa previa -- anatomic evaluation was performed and no structural abnormalities are noted. 08/11/2017 OB Ultrasound 3rd Trimester Summary -- Single intrauterine with a gestational age of 29w 4d based on LMP (01/16/17). Composite age based on the current ultrasound alone is 28w 6d. -- Estimated weight corresponds to the 64th percentile for 29w 4d. -- Current growth parameters are consistent with prior dating indicating normal growth.?? -- Amniotic fluid volume is Normal transvaginal done due to vasa previa and low lying placenta seenpreviously. Low lying placenta and vasa previa seen again. -- Anatomical survey is limited due to the late gestational age. 09/01/17 OB Ultrasound GA at US: ??32w4d EFW: 1819 grams (49%) Growth: Normal??for gestational age Amniotic fluid volume: SHERI 8.1cm Placenta: left lateral low lying placenta, vasa previa Presentation: Cephalic?? 09/11/2017 KUB FINDINGS: No radiopaque foreign body that would raise concern for a retained object. Pending Studies and Lab Data: Final pathology Discharge Conditions/Prognosis: good Discharge to: Home Contraceptive Plans: N/A- s/p hysterectomy Allergies at Discharge: Allergies Allergen Reactions ??? Red Blood Cells Other (See Comments) Antibodies-Difficult to Crossmatch DO NOT REMOVE Please contact the Blood Bank at [phone] for questions. Immunizations Given this Hospitalization: Immunization History Administered Date(s) Administered ??? Tdap Vaccine 08/03/2017 Discharge Medications: Your Medications New Medications Dose Details acetaminophen 325 mg Tab Commonly known as: TYLENOL Take 2 tablets by mouth every 6 hours as needed for Pain. 650 mg Quantity: 30 tablet Refills: 1 ferrous gluconate 324 mg (37.5 mg iron) Tab Take 1 tablet by mouth 3 times daily. 324 mg Quantity: 20 tablet Refills: 3 ibuprofen 600 mg Tab Commonly known as: ADVIL;MOTRIN Take 1 tablet by mouth every 6 hours as needed for Pain. 600 mg Quantity: 30 tablet Refills: 12 oxyCODONE 5 mg Tab Commonly known as: ROXICODONE Take 1-2 tablets by mouth every 4 hours as needed for Pain. 5-10 mg Quantity: 20 tablet Refills: 0 Continued medications, unchanged Dose Details ondansetron 4 mg Tbdl Commonly known as: ZOFRAN-ODT Take 8 mg by mouth every 8 hours as needed for Nausea. 8 mg Refills: 0 vitamin with locigkzb-Lg-Dmpe-FA Tab Take 1 tablet by mouth daily. 1 tablet Refills: 0 STOPPED Medications blood sugar diagnostic strips Strp insulin isophane- NPH Inpn lancets Misc Smoking Status at Discharge: History Smoking Status ??? Former Smoker Smokeless Tobacco ??? Never Used Instructions Given to Patient at Discharge: Patient Instructions Patient Instructions Follow-up: Six weeks care provider Activity: Nothing in vagina until bleeding stops Do not lift more than 15 pounds No driving for two weeks if you had a section or if you are taking narcotic medication. Please call your OB provider for the following: Fever more than 100.5 degrees Heavy bleeding that saturates a pad an hour Increased abdominal pain, nausea , shaking chills Redness, increased pain, discharge at incision if you had a delivery. Increased pain in the area of stitches outside your vagina. Hot, hard, tender areas on the breast and feeling generally unwell. Depression Contact Numbers: If you see an dot net developer call: [phone] 9 am - 5 pm, after 5 pm If you see a salvage worker call: [phone] all hours If you see a family practitioner call: [phone] all hours If you were transferred to our institution for delivery and cannot reach your local OB provider, call the dot net developer numbers. General Instructions Nursing Inpatient Progress C - Section Follow-up Follow-ups: Six week appointment will be scheduled. Referrals: Additional Instructions: Maternal Discharge Instructions Rest: Although it may seem impossible to get enough rest, simple planning will help. Try to get at least one four hour block of uninterrupted sleep in 24 hours; then plan to rest, and/or sleep when your baby does. Limiting visitors also helps. Fathers and other family members can help by doing housework, caring for other children and/or helping limit visitors. Activity: After delivery, it is safe to climb stairs at home. Do not lift anything heavierthan your baby for two weeks. Do not drive for two weeks or while taking pain medicine that contains a narcotic as your reaction time may be decreased. Nutrition: Your diet following the of your baby is as important as it was before the baby wasborn. Drink a minimum of 6-8 glasses a day. Do not attempt to lose weight during the first six weeks. Continue taking your vitamins until they are gone. Incision: Wash the incision with soap and water and pat dry. It is normal to have clear or pinkish fluid seep from the incision. Gauze pads or sanitary napkins may help to keep the incision dry if itis located in a fold under your tummy. If the incision has more redness, yellow drainage, or becomes more painful, contact the obstetrics clinic. Breast Care for Formula feeding mothers: Wear a well fitting bra to support your breasts. Ice packsto your breasts and Tylenol or Ibuprofen may be used to relieve discomfort from engorgement. Avoid stimulating your breasts: Do not let warm water from the shower fall on them; avoid holding your baby near your breasts until your milk begins to decrease and engorgement is relieved. Breast feeding mothers: Practice careful positioning and frequent feeding as demonstrated in the hospital. The printed information in your packet covers this in detail. Call your doctor or salvage worker for: ??? Fever more than 100.5 ??? Increased abdominal pain, nausea, shaking chills ??? Increased redness or soreness over your incision Breast with hot, hard, tender areas on the breast plus flu-like symptom ??? depression occurs in a large percentage of women. We encourage you to contact your provider or a member of the nursing staff if you are feeling so overwhelmed that you are unable to care for yourself or your baby. Keep your follow up appointment. You may call the [facility] at any time for guidance or for answers to questions that come up prior to you follow up appointment. Your [facility] Provider can be reached during office hours at ??? Midwives ??? Obstetricians ??? [facility] Follow-up Clinic AFTER OFFICE HOURS for the dot net developer or salvage worker inside sales consultant Provider electronic signature confirms that discharge instructions were reviewed with the patient. A copy was printed and given to the patient. Future Appointments and Orders Future Appointments Provider Department Dept Phone 09/17/2017 4:15 PM Emanuel Barrett MD Obstetrics [facility]necology at [place] [phone] 10/23/2017 1:00 PM Li Sepulveda MD [facility] at [place] [phone] Future Orders Complete By Expires Durable Medical Equipment Order [[id number] Custom] As directed Process Instructions: Scheduling Instructions: Comments: Pam Lake 1990 [address] [facility] [id number] (home) [facility] intake- #[phone] fax [phone] [place] Office- [phone] RX: Hospital Grade Electric Breast Pump- Lactina Breast Pump Length of Need: 3 Months Purpose of Appliance: To Initiate and Maintain Medical Necessity: /Lactating Mother- Z39.1 Breast Engorgement relative to born at 34 gestation - BW 2.035 (4lb/8oz) P92.9 Feeding problem of , unspecified Premature Infant in ICN from mother- P07.30 Prematurity Questions: Name/Description of requested item: lactina breast pump Size requested: Vendor Name/Contact information: [employer] Discharge References/Attachments HYSTERECTOMY: ABDOMINAL: POST-OP (DUTCH) GRIEVING (ACTUAL/ANTICIPATED) (DUTCH) documented in this encounter Discharge Instructions * Discharge Instructions* Asif Grove RN - 09/15/2017 11:24 AM EST Nursing Inpatient Progress C - Section Follow-up Follow-ups: Six week appointment will be scheduled. Referrals: Additional Instructions: Maternal Discharge Instructions Rest: Although it may seem impossible to get enough rest, simple planning will help. Try to get at least one four hour block of uninterrupted sleep in 24 hours; then plan to rest, and/or sleep when your baby does. Limiting visitors also helps. Fathers and other family members can help by doing housework, caring for other children and/or helping limit visitors. Activity: After delivery, it is safe to climb stairs at home. Do not lift anything heavierthan your baby for two weeks. Do not drive for two weeks or while taking pain medicine that contains a narcotic as your reaction time may be decreased. Nutrition: Your diet following the of your baby is as important as it was before the baby wasborn. Drink a minimum of 6-8 glasses a day. Do not attempt to lose weight during the first six weeks. Continue taking your vitamins until they are gone. Incision: Wash the incision with soap and water and pat dry. It is normal to have clear or pinkish fluid seep from the incision. Gauze pads or sanitary napkins may help to keep the incision dry if itis located in a fold under your tummy. If the incision has more redness, yellow drainage, or becomes more painful, contact the obstetrics clinic. Breast Care for Formula feeding mothers: Wear a well fitting bra to support your breasts. Ice packsto your breasts and Tylenol or Ibuprofen may be used to relieve discomfort from engorgement. Avoid stimulating your breasts: Do not let warm water from the shower fall on them; avoid holding your baby near your breasts until your milk begins to decrease and engorgement is relieved. Breast feeding mothers: Practice careful positioning and frequent feeding as demonstrated in the hospital. The printed information in your packet covers this in detail. Call your doctor or salvage worker for: ??? Fever more than 100.5 ??? Increased abdominal pain, nausea, shaking chills ??? Increased redness or soreness over your incision Breast with hot, hard, tender areas on the breast plus flu-like symptom ??? depression occurs in a large percentage of women. We encourage you to contact your provider or a member of the nursing staff if you are feeling so overwhelmed that you are unable to care for yourself or your baby. Keep your follow up appointment. You may call the [facility] at any time for guidance or for answers to questions that come up prior to you follow up appointment. Your [facility] Provider can be reached during office hours at ??? Midwives ??? Obstetricians ??? [facility] Follow-up Clinic AFTER OFFICE HOURS for the dot net developer or salvage worker inside sales consultant Provider electronic signature confirms that discharge instructions were reviewed with the patient. A copy was printed and given to the patient. * Patient Instructions* Jhonathan Robertson MD - 09/12/2017 5:58 AM EST Patient Instructions Follow-up: Six weeks care provider Activity: Nothing in vagina until bleeding stops Do not lift more than 15 pounds No driving for two weeks if you had a section or if you are taking narcotic medication. Please call your OB provider for the following: Fever more than 100.5 degrees Heavy bleeding that saturates a pad an hour Increased abdominal pain, nausea , shaking chills Redness, increased pain, discharge at incision if you had a delivery. Increased pain in the area of stitches outside your vagina. Hot, hard, tender areas on the breast and feeling generally unwell. Depression Contact Numbers: If you see an dot net developer call: [phone] 9 am - 5 pm, after 5 pm If you see a salvage worker call: [phone] all hours If you see a family practitioner call: [phone] all hours If you were transferred to our institution for delivery and cannot reach your local OB provider, call the dot net developer numbers. * Attachments The following attachments cannot be sent through Care Everywhere. * HYSTERECTOMY: ABDOMINAL: POST-OP (DUTCH) * GRIEVING (ACTUAL/ANTICIPATED) (DUTCH) documented in this encounter Medications at Time of Discharge Medication Sig Dispensed Refills Start Date End Date acetaminophen (TYLENOL) 325 mg Tablet Take 2 tablets by mouth every 6 hours as needed for Pain. 30 tablet 1 09/14/2017 10/27/2017 ibuprofen (ADVIL;MOTRIN) 600 mg Tablet Take 1 tablet by mouth every 6 hours as needed for Pain. 30 tablet 12 09/14/2017 10/27/2017 oxyCODONE (ROXICODONE) 5 mg Tablet Take 1-2 tablets by mouth every 4 hours as needed for Pain. 20 tablet 09/14/2017 10/27/2017 ferrous gluconate 324 mg (37.5 mg iron) Tablet Take 1 tablet by mouth 3 times daily. 20 tablet 3 09/14/2017 10/27/2017 vitamin with sjhbutow-Ny-Yisu-FA Tablet Take 1 tablet by mouth daily. 10/27/2017 ondansetron (ZOFRAN-ODT) 4 mg Tablet, Rapid Dissolve Take 8 mg by mouth every 8 hours as needed for Nausea. 10/27/2017 documented as of this encounter Progress Notes * Mat Amador MD - 09/15/2017 6:54 AM EST Delivery Note Patient ID: Pam Lake is a 27 y.o. year old who is postop day #4 after an supracervical hysterectomy with left distal partial salpingectomy at 34w0d weeks gestation for aknown vasa previa with morbidly adherent placenta. EBL 2.5L. S: No acute issues this AM. Neck pain is still present per RN but patient was sleeping when MD wentto evaluate. O: Last value Range last 24 hrs Temperature Temp: 36.6 ??C (97.9 ??F) Temp: [36.6 ??C (97.9 ??F)] Heart Rate Heart Rate: (!) 120 Heart Rate: [82-120] Blood Pressure BP: 114/78 BP: (107-114)/(54-78) Respiratory Rate Resp: 20 Resp: [18-20] SpO2 SpO2: 100 % SpO2: [100 %] No intake or output data in the 24 hours ending 09/15/17 0655 Exam: Gen: sleeping soundly, appears well, in no acute distress. Cardiac: RRR, S1, S2, no rub/gallop/murmur. Pulmonary: CTAB, slightly diminished in the bases Abdomen: Soft, symmetric, appropriately tender, no rebound/guarding Incision: well approximated with no surrounding erythema or induration. Extremities: nontender, no edema. Labs: Recent Labs 09/15/17 0415 09/14/17 0810 09/13/17 0625 WBC 5.9 6.8 8.8 HGB 7.0* 6.6* 7.1* HCT 20.8* 19.4* 20.9* PLATELET 247 213 187 Recent Labs 09/15/17 0415 09/14/17 0810 09/13/17 0625 09/12/17 0610 09/11/17 1457 NA 140 140 137 135 138 K 3.5 3.7 3.7 4.3 4.1 CL 102 102 99 99 103 CO2 27 27 24 24 21* BUN 9 6* 7* 5* 6* CREATININE 0.93 0.54* 0.65* 0.57* 0.44* MAGNESIUM -- -- -- 0.63* 0.52* Assessment: Pam Lake is a 27 y.o. year old who is POD#3 after an supracervical hysterectomy with left distal partial salpingectomy, doing well postoperatively. Patient is asymptomatic however Hgb decline from 10.3 --> 7.6 --> 7.1, started on iron as patient does not have IV access adequate to give pRBCs and she does not want another IV placed. Anticipate discharge on postop day #3. Plan: ?? Will have PT come evaluate pts neck pain this AM and make further recommendations. Continue to encourage patient to take tylenol and motrin as tolerated and keep using a heating pad. Has been evaluated by anesthesia several times and they do not believe it is related to attempts to place a spinal at the time of her surgery. ?? Received 1 uPRBCs intraoperatively. Hgb 10.3 --> 7.6 --> 7.1 -->6.6-->7.0 on POD#4. Has been hemodynamically stable and asymptomatic, was started on Iron. Will discharge with ferrous sulfate supplementation. ?? Continue routine care. ?? Hysterectomy for contraception ?? Pumping for nutrition ?? Follow-up: 2 week depression screen and 6 week visit. Other Medical Issues/Concerns: GDMA2 - Will need diabetes screening This patient was seen and discussed on rounds. Mat Amador MD PGY-1 09/15/2017 Associated attestation - Li Sepulveda MD - 09/15/2017 5:40 PM EST Attending note I saw patient on rounds and agree with Dr. Amador's note above. The patient reports feeling well. Her bleeding is diminishing, and she is voiding without difficulty. She has adequate analgesia. She isable to ambulate. Temp: [36.5 ??C (97.7 ??F)-36.6 ??C (97.9 ??F)] Heart Rate: [93-120] Resp: [18-20] BP: (110-114)/(64-78) SpO2: [100 %] Heart Rate from SPO2: [90 bpm-94 bpm] Abdomen: soft, appropriately tender, fundus below umbilicus Wound/dressing: clean, dry, intact Ext: nontender, mod edema Impression: POD 4 after hysterectomy doing well. Plan: Continue routine postoperative care. Discharge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 objects within reach;BADL personal routines maintained Musculoskeletal Interventions Muscle Strengthening activity/mobility promoted -- -- Barbour Fall Risk History of Falling -- -- 0 Secondary Diagnosis -- -- 0 Ambulatory Aids -- -- 0 Intravenous Therapy/Heparin/Saline Lock -- -- 20 Gait/Transferring -- -- 0 Mental Status -- -- 0 Score -- -- 20 OTHER Barbour Fall Risk -- -- Low Restraint Interventions Safety Promotion/Fall Prevention -- -- -- Positioning Body Position -- -- independent ?? 09/06/17 141 Activity and Safety Assistive Device -- Daily Care Interventions Self-Care Promotion -- Musculoskeletal Interventions Muscle Strengthening -- Barbour Fall Risk History of Falling -- Secondary Diagnosis -- Ambulatory Aids -- Intravenous Therapy/Heparin/Saline Lock -- Gait/Transferring -- Mental Status -- Score -- OTHER Barbour Fall Risk -- Restraint Interventions Safety Promotion/Fall Prevention safety round/check completed Positioning Body Position -- ?? Goal: Infection Control Outcome: Ongoing (Interventions Implemented as Appropriate) ?? 09/05/17 1410 09/06/17 121 Safety Interventions Isolation Precautions standard precautions maintained -- Infection Prevention single patient room provided -- Coping Strategies Supportive Measures -- active listening utilized ?? Goal: Discharge Needs Assessment Outcome: Ongoing (Interventions Implemented as Appropriate) ?? 08/26/17 1854 08/30/17 040 Discharge Needs Assessment Concerns To Be Addressed -- no discharge needs identified Readmission Within The Last 30 Days no previous admission in last 30 days -- Provider Choice List(s) Given no -- Equipment Needed After Discharge -- none Discharge Disposition -- still a patient Current Health Anticipated Changes Related to Illness -- none Activity/Self Care Review of Systems Equipment Currently Used at Home -- none Living Environment Transportation Available -- family or friend will provide ? Problem: High-Risk/Critically Ill Patient (Obstetrics) Goal: Signs and Symptoms of Listed Potential Problems Will be Absent, Minimized or Managed (High-Risk/Critically Ill Patient) Signs and symptoms of listed potential problems will be absent, minimized or managed by discharge/transition of care (reference High-Risk/Critically Ill Patient (Obstetrics) CPG). Outcome: Ongoing (Interventions Implemented as Appropriate) ?? 09/06/17 1215 High-Risk/Critically Ill OB Patient Problems Assessed (Critically Ill/High Risk ) other (see comments) (all) Problems Present (Critically Ill/High Risk ) none ? * Jhonathan Robertson MD - 09/09/2017 5:02 PM EST PGY3 NST Note NST Fetus A 09/09/2017 HR (Beats/Min) 150 HR Variability moderate (amplitude range 6 to 25 bpm) HR Accelerations present;greater than/equal to 15 bpm;lasting at least 15 seconds HR Decelerations none Contraction Frequency (Minutes) none Nonstress Test Interpretation Reactive, >32 weeks: two 15 bpm accelerations lasting 15 seconds Overall Impression Reassuring for gestational age Comments - JHONATHAN ROBERTSON MD 09/09/2017 Associated attestation - Obdulia Crenshaw MD - 09/09/2017 5:07 PM EST I reviewed this NST and agree with the above note and interpretation. Obdulia Crenshaw MD * Jacqueline Paez - 09/09/2017 3:19 PM EST Therapeutic massage given by NATE Holder. Pam appreciative, stating My back feels better. Prior to session pain rated 6/10; after session 4/10. * Jhonathan Robertson MD - 09/09/2017 6:56 AM EST Images from the original note were not included. Obstetrical Antepartum Progress Note Pam Lake is a 27 y.o. woman at 33w5d with an CHITRA of 10/25/2017, admitted for monitoring in the setting of known vasa previa. This is hospital day #44. Active Problems: Patient Active Problem List Diagnosis ??? BMI 45.0-49.9, adult ??? Asthma ??? Vasa previa Overview Note: 0.9cm lateral to internal os ??? Insulin controlled gestational diabetes mellitus (GDM): diagnosed at 7 weeks gestation ??? Previous section x 2 24 Hour Events -- NST reactive Subjective: Denies bleeding, loss of fluid, cramping, richard, or decreased movement. Review of Systems Obstetric Review of Systems Total Weight Gain this 2.268 kg (5 lb) Movement: normal Contractions: none Leaking: None Bleeding; none now Preeclampsia signs and symptoms: None Physical Exam Last value Range last 8 hrs Temperature Temp: 37.1 ??C (98.8 ??F) Temp: -- Heart Rate Heart Rate: 95 Heart Rate: -- Blood Pressure BP: 97/51 BP: -- Respiratory Rate Resp: 16 Resp: -- SpO2 SpO2: 100 % SpO2: -- No data found. Gen: appears well, NAD CV: RRR, no murmurs/rubs/gallops Pulm: CTAB, no wheezes/crackles Uterus: non-tender Cervix: Deferred Ext: Warm, well perfused, non-tender, no edema Heart Rate Interpretation: please see separate documentation for today. Most Recent Ultrasound Date: 09/01/17 GA at US: 32w4d EFW: 1819 grams (49%) Growth: Normal for gestational age Amniotic fluid volume: SHERI 8.1cm Placenta: Posterior low lying placenta, vasa previa Presentation: Cephalic GBS Lab Results Component Value Date GBSSCREEN Neg 09/02/2017 Glucose Accord: Assessment & Plan: Pam Lake is a 27 y.o. woman at 33w5d admitted for monitoring with known vasa previa. Vessels continue to traverse across the cervix. Plan for delivery scheduled section on 09/11 at 34w0d. 1. Vasa Previa: Ultrasound 09/01 confirmed persistent vasa previa -Delivery indications: Vaginal bleeding, progressive labor, non-reassuring status, maternal deterioration -Tocolysis: Not indicated -GBS status: Negative - status: NST once daily -Last growth: 09/01 (will not need another ultrasound prior to delivery) -Steroid status: complete 07/30, rescue complete as of 08/20 -Magnesium for neuro protection: complete on 08/15 -Consultations: neonatology and anesthesiology -Consents obtained: ?? 2. GDM A2: Currently on 24 units nightly and 16 units every morning of NPH insulin. Increase NPH to20 units in the morning. -regular gestational diet, continue monitoring of FSG postprandially and fasting. -Appropriate growth (64%) on last scan 08/11 ?? 3. contraception plan: -Desires 6 week Mirena ?? 4. Routine care: - vitamins daily -Tdap given 08/03 -Declines flu vaccine ?? 5. Other issues: -Previous x2 -Asthma: Albuterol nebulizer PRN wheezing, avoid Hemabate -Marijuana use: TEREZA upon admission positive for cannabinoids only -History of depression: Will need 2 week depression screen -Constipation: Colace scheduled, Miralax PRN Patient discussed on Multidisciplinary Rounds JHONATHAN ROBERTSON MD Business Continuity Planning Director PGY-3 08/30/2017 Associated attestation - Crow Vasquez MD - 09/09/2017 9:11 AM EST Maternal Medicine Attending Note Patient: Pam Lake I performed a history and physical exam of the patient and discussed her management with Dr. Robertson. I reviewed Dr. Robertson's note and agree with the documented findings and plan of care. My evaluation isas below: 33w5d weeks EGA; Patient admitted with complicated by vasa previa. LOS: 43 days Subjective: No complaints. Good movement. No contractions. Last value Range last 8 hrs Temperature Temp: 37.1 ??C (98.8 ??F) Temp: -- Heart Rate Heart Rate: 95 Heart Rate: -- Blood Pressure BP: 97/51 BP: -- Respiratory Rate Resp: 16 Resp: -- SpO2 SpO2: 100 % SpO2: -- *Abdomen: Soft, non-tender, not distended *Uterus: Soft, Non-tender *Extremities: Non-tender; no edema *NST: See separate report. Impression: Vasa previa at 33w5d weeks EGA. Plan: Continued in patient management for proximity to OR and NICU due to risk of hemorrhage. Delivery scheduled for 34w0d. Jane Vasquez MD Maternal- Medicine * Jhonathan Robertson MD - 09/08/2017 3:59 PM EST PGY3 NST Note NST Fetus A 09/08/2017 HR (Beats/Min) 150 HR Variability moderate (amplitude range 6 to 25 bpm) HR Accelerations greater than/equal to 15 bpm;lasting at least 15 seconds HR Decelerations none Contraction Frequency (Minutes) none Nonstress Test Interpretation Reactive, >32 weeks: two 15 bpm accelerations lasting 15 seconds Overall Impression Reassuring for gestational age Comments - JHONATHAN ROBERTSON MD 09/08/2017 Associated attestation - Obdulia Crenshaw MD - 09/08/2017 4:49 PM EST I reviewed this NST and agree with the above note and interpretation. Obdulia Crenshaw MD * Jhonathan Robertson MD - 09/08/2017 6:30 AM EST Images from the original note were not included. Obstetrical Antepartum Progress Note Pam Lake is a 27 y.o. woman at 33w4d with an CHITRA of 10/25/2017, admitted for monitoring in the setting of known vasa previa. This is hospital day #43. Active Problems: Patient Active Problem List Diagnosis ??? BMI 45.0-49.9, adult ??? Asthma ??? Vasa previa Overview Note: 0.9cm lateral to internal os ??? Insulin controlled gestational diabetes mellitus (GDM): diagnosed at 7 weeks gestation ??? Previous section x 2 24 Hour Events -- NST reactive -- Postprandial elevated to 147 yesterday Subjective: She enjoyed art therapy yesterday. Denies bleeding, loss of fluid, cramping, richard, or decreased movement. Review of Systems Obstetric Review of Systems Total Weight Gain this 2.268 kg (5 lb) Movement: normal Contractions: none Leaking: None Bleeding; none now Preeclampsia signs and symptoms: None Physical Exam Last value Range last 8 hrs Temperature Temp: 36.8 ??C (98.2 ??F) Temp: -- Heart Rate Heart Rate: 89 Heart Rate: -- Blood Pressure BP: 116/68 BP: -- Respiratory Rate Resp: 18 Resp: -- SpO2 SpO2: 100 % SpO2: -- No data found. Gen: appears well, NAD CV: RRR, no murmurs/rubs/gallops Pulm: CTAB, no wheezes/crackles Uterus: non-tender Cervix: Deferred Ext: Warm, well perfused, non-tender, no edema Heart Rate Interpretation: please see separate documentation for today. Most Recent Ultrasound Date: 09/01/17 GA at US: 32w4d EFW: 1819 grams (49%) Growth: Normal for gestational age Amniotic fluid volume: SHERI 8.1cm Placenta: Posterior low lying placenta, vasa previa Presentation: Cephalic GBS Lab Results Component Value Date GBSSCREEN Neg 09/02/2017 Glucose Accord: Assessment & Plan: Pam Lake is a 27 y.o. woman at 33w4d admitted for monitoring with known vasa previa. Vessels continue to traverse across the cervix. Plan for delivery scheduled section on 09/11 at 34w0d. 1. Vasa Previa: Ultrasound 09/01 confirmed persistent vasa previa -Delivery indications: Vaginal bleeding, progressive labor, non-reassuring status, maternal deterioration -Tocolysis: Not indicated -GBS status: Negative - status: NST once daily -Last growth: 09/01 (will not need another ultrasound prior to delivery) -Steroid status: complete 07/30, rescue complete as of 08/20 -Magnesium for neuro protection: complete on 08/15 -Consultations: neonatology and anesthesiology -Consents obtained: ?? 2. GDM A2: Currently on 24 units nightly and 16 units every morning of NPH insulin. Continue on moderate sliding scale for coverage. -regular gestational diet, continue monitoring of FSG postprandially and fasting. Will increase NPHif postprandials elevated today. -Appropriate growth (64%) on last scan 08/11 ?? 3. contraception plan: -Desires 6 week Mirena ?? 4. Routine care: - vitamins daily -Tdap given 08/03 -Declines flu vaccine ?? 5. Other issues: -Previous x2 -Asthma: Albuterol nebulizer PRN wheezing, avoid Hemabate -Marijuana use: TEREZA upon admission positive for cannabinoids only -History of depression: Will need 2 week depression screen -Constipation: Colace scheduled, Miralax PRN Patient discussed on Multidisciplinary Rounds JHONATHAN ROBERTSON MD Business Continuity Planning Director PGY-3 08/30/2017 Associated attestation - Crow Vasquez MD - 09/08/2017 1:32 PM EST Maternal Medicine Attending Note Patient: Pam Lake I performed a history and physical exam of the patient and discussed her management with Dr. Robertson. I reviewed Dr. Robertson's note and agree with the documented findings and plan of care. My evaluation isas below: 33w4d weeks EGA; Patient admitted with complicated by vasa previa. LOS: 42 days Subjective: No complaints. Good movement. No contractions. Last value Range last 8 hrs Temperature Temp: 37.1 ??C (98.8 ??F) Temp: [37.1 ??C (98.8 ??F)] Heart Rate Heart Rate: 98 Heart Rate: [98] Blood Pressure BP: 118/77 BP: (118)/(77) Respiratory Rate Resp: 17 Resp: [17] SpO2 SpO2: 100 % SpO2: -- *Abdomen: Soft, non-tender, not distended *Uterus: Soft, Non-tender *Extremities: Non-tender; no edema *NST: See separate report. Impression: Vasa previa at 33w4d weeks EGA. Plan: Continued in patient management for proximity to OR and NICU due to risk of hemorrhage. Delivery scheduled at 34w0d. Jane Vasquez MD Maternal- Medicine * Jhonathan Robertson MD - 09/07/2017 5:41 PM EST PGY3 NST Note NST Fetus A 09/07/2017 HR (Beats/Min) 150 HR Variability moderate (amplitude range 6 to 25 bpm) HR Accelerations greater than/equal to 15 bpm;lasting at least 15 seconds HR Decelerations none Contraction Frequency (Minutes) none Nonstress Test Interpretation Reactive, >32 weeks: two 15 bpm accelerations lasting 15 seconds Overall Impression Reassuring for gestational age Comments - JHONATHAN ROBERTSON MD 09/07/2017 Associated attestation - Yeny Waterman MD - 09/07/2017 6:04 PM EST I personally reviewed and interpreted this NST. Yeny Waterman MD * Stephanie Moseley MSW - 09/07/2017 4:12 PM EST Social Work Note Office of Care Management Follow Up: HUMAN RESOURCES PSYCHOLOGIST met with pt today at bedside to check in on her. Pt is very excited that she will be having herc/s on Thursday and has been talking about holding her baby and being able to meet her. HUMAN RESOURCES PSYCHOLOGIST reminded went over [facility] again and let pt know she can use [employer] to get groceries during her [facility] stay. Plan: Arrange for breast pump after delivery and continue to provide support to pt. DIEGO Ruiz Pager: [phone] * Jhonathan Robertson MD - 09/07/2017 6:26 AM EST Images from the original note were not included. Obstetrical Antepartum Progress Note Pam Lake is a 27 y.o. woman at 33w3d with an CHITRA of 10/25/2017, admitted for monitoring in the setting of known vasa previa. This is hospital day #42. Active Problems: Patient Active Problem List Diagnosis ??? BMI 45.0-49.9, adult ??? Asthma ??? Vasa previa Overview Note: 0.9cm lateral to internal os ??? Insulin controlled gestational diabetes mellitus (GDM): diagnosed at 7 weeks gestation ??? Previous section x 2 24 Hour Events -- NST reactive Subjective: No bleeding, loss of fluid, cramping, richard, or decreased movement. Review of Systems Obstetric Review of Systems Total Weight Gain this 2.268 kg (5 lb) Movement: normal Contractions: none Leaking: None Bleeding; none now Preeclampsia signs and symptoms: None Physical Exam Last value Range last 8 hrs Temperature Temp: 36.9 ??C (98.4 ??F) Temp: -- Heart Rate Heart Rate: 86 Heart Rate: -- Blood Pressure BP: 119/74 BP: -- Respiratory Rate Resp: 18 Resp: -- SpO2 SpO2: 100 % SpO2: -- Patient Vitals for the past 168 hrs: Weight 08/31/17 1402 103.8 kg (228 lb 13.4 oz) Gen: appears well, NAD CV: RRR, no murmurs/rubs/gallops Pulm: CTAB, no wheezes/crackles Uterus: non-tender Cervix: Deferred Ext: Warm, well perfused, non-tender, no edema Heart Rate Interpretation: please see separate documentation for today. Most Recent Ultrasound Date: 09/01/17 GA at US: 32w4d EFW: 1819 grams (49%) Growth: Normal for gestational age Amniotic fluid volume: SHERI 8.1cm Placenta: Posterior low lying placenta, vasa previa Presentation: Cephalic GBS Lab Results Component Value Date GBSSCREEN Neg 09/02/2017 Glucose Accord: Assessment & Plan: Pam Lake is a 27 y.o. woman at 33w3d admitted for monitoring with known vasa previa. Vessels continue to traverse across the cervix. Plan for delivery scheduled section on 09/11 at 34w0d. 1. Vasa Previa: Ultrasound 09/01 confirmed persistent vasa previa -Delivery indications: Vaginal bleeding, progressive labor, non-reassuring status, maternal deterioration -Tocolysis: Not indicated -GBS status: Negative - status: NST once daily -Last growth: 09/01 (will not need another ultrasound prior to delivery) -Steroid status: complete 07/30, rescue complete as of 08/20 -Magnesium for neuro protection: complete on 08/15 -Consultations: neonatology and anesthesiology -Consents obtained: ?? 2. GDM A2: Currently on 24 units nightly and 16 units every morning of NPH insulin. Continue on moderate sliding scale for coverage. -regular gestational diet, continue monitoring of FSG postprandially and fasting. -Appropriate growth (64%) on last scan 08/11 ?? 3. contraception plan: -Desires 6 week Mirena ?? 4. Routine care: - vitamins daily -Tdap given 08/03 -Declines flu vaccine ?? 5. Other issues: -Previous x2 -Asthma: Albuterol nebulizer PRN wheezing, avoid Hemabate -Marijuana use: TEREZA upon admission positive for cannabinoids only -History of depression: Will need 2 week depression screen -Constipation: Colace scheduled, Miralax PRN Patient discussed on Multidisciplinary Rounds JHONATHAN ROBERTSON MD Business Continuity Planning Director PGY-3 08/30/2017 Associated attestation - Yeny Waterman MD - 09/07/2017 6:02 PM EST Attending Note S: I saw Pam Lake on rounds and agree with Dr. Robertson's note above.?? The patient feels well. Denies contractions, vaginal bleeding, or leaking of fluid. Denies F/C, SOB/CP, N/V. O: BP 115/56 (BP Location (NBP): Left arm) Pulse 83 Temp 36.8 ??C (98.2 ??F) (Oral) Resp 18 Ht149.9 cm (4' 11.02) Wt 103.8 kg (228 lb 13.4 oz) SpO2 100% BMI 46.19 kg/m2 NAD Abd soft, nontender Labs: N/A Impression:??Admission for vasa previa in setting of h/o 2 prior cesareans. Delivery planned for 34weeks. Cont to monitor for vaginal bleeding. Plan:??Continue inpt hospitalization. Yeny Waterman MD * Janine Frazier MD - 09/06/2017 8:41 PM EST NST Note NST Fetus A 09/06/2017 HR (Beats/Min) 155 HR Variability moderate (amplitude range 6 to 25 bpm) HR Accelerations present HR Decelerations none Contraction Frequency (Minutes) none Nonstress Test Interpretation Reactive, >32 weeks: two 15 bpm accelerations lasting 15 seconds Overall Impression Reassuring for gestational age Comments - Reactive, reassuring NST Repeat daily KAYLEN GABRIEL MD PGY4 09/06/2017 I personally reviewed and interpreted this NST. JANINE FRAZIER MD * Becca Bailey RN - 09/06/2017 3:35 PM EST 1535 Report given to Jeremias See RN. * Yoly Cueva MD - 09/06/2017 10:36 AM EST Images from the original note were not included. Obstetrical Antepartum Progress Note Pam aLke is a 27 y.o. woman at 33w2d with an CHITRA of 10/25/2017, admitted for monitoring in the setting of known vasa previa. This is hospital day #41. Active Problems: Patient Active Problem List Diagnosis ??? BMI 45.0-49.9, adult ??? Asthma ??? Vasa previa Overview Note: 0.9cm lateral to internal os ??? Insulin controlled gestational diabetes mellitus (GDM): diagnosed at 7 weeks gestation ??? Previous section x 2 24 Hour Events -- NST reactive Subjective: No bleeding, loss of fluid, cramping, richard, or decreased movement. Review of Systems Obstetric Review of Systems Total Weight Gain this 2.268 kg (5 lb) Movement: normal Contractions: none Leaking: None Bleeding; none now Preeclampsia signs and symptoms: None Physical Exam Last value Range last 8 hrs Temperature Temp: 37.1 ??C (98.8 ??F) Temp: -- Heart Rate Heart Rate: 76 Heart Rate: -- Blood Pressure BP: 128/84 BP: -- Respiratory Rate Resp: 18 Resp: -- SpO2 SpO2: 97 % SpO2: -- Patient Vitals for the past 168 hrs: Weight 08/31/17 1402 103.8 kg (228 lb 13.4 oz) Gen: appears well, NAD CV: RRR, no murmurs/rubs/gallops Pulm: CTAB, no wheezes/crackles Uterus: non-tender Cervix: Deferred Ext: Warm, well perfused, non-tender, no edema Heart Rate Interpretation: please see separate documentation for today. Most Recent Ultrasound Date: 09/01/17 GA at US: 32w4d EFW: 1819 grams (49%) Growth: Normal for gestational age Amniotic fluid volume: SHERI 8.1cm Placenta: Posterior low lying placenta, vasa previa Presentation: Cephalic GBS Lab Results Component Value Date GBSSCREEN Neg 09/02/2017 Glucose Accord: Assessment & Plan: Pam Lake is a 27 y.o. woman at 33w2d admitted for monitoring with known vasa previa. Vessels continue to traverse across the cervix. Pam will stay hospitalized until 34 weeks, at which time she will deliver via scheduled section on 09/11 at 34w0d. 1. Vasa Previa: Ultrasound 08/11 confirmed persistent vasa previa -Delivery indications: Vaginal bleeding, progressive labor, non-reassuring status, maternal deterioration -Tocolysis: Not indicated -GBS status: Negative but since 09/01. New GBS pending. - status: NST once daily -Last growth: 09/01 (will not need another ultrasound prior to delivery) -Steroid status: complete 07/30, rescue complete as of 08/20 -Magnesium for neuro protection: complete on 08/15 -Consultations: neonatology and anesthesiology -Consents obtained: ?? 2. GDM A2: Currently on 24 units nightly and 14 units every morning of NPH insulin. Continue on moderate sliding scale for coverage. -Increase to 16 U in AM, continue 24H qhs -regular gestational diet, continue monitoring of FSG postprandially and fasting. -FSBS fasting (9 AM) and post-prandial 1 hour -Appropriate growth (64%) on last scan 08/11 ?? 3. contraception plan: -Desires 6 week Mirena ?? 4. Routine care: - vitamins daily -Elevated 1 hour and 3 hour, GDM A2 -Tdap given 08/03 -Declines flu vaccine ?? 5. Other issues: -Previous x2 -Asthma: Albuterol nebulizer PRN wheezing, avoid Hemabate -Marijuana use: TEREZA upon admission positive for cannabinoids only -History of depression: Will need 2 week depression screen -Constipation: Colace scheduled, Miralax PRN Patient discussed on Multidisciplinary Rounds YOLY CUEVA MD Business Continuity Planning Director PGY-4 08/30/2017 Associated attestation - Emanuel Barrett MD - 09/06/2017 3:26 PM EST I have seen and examined the patient, providing beck components as outlined below. ?? I have reviewed the resident???s above note; my evaluation of the patient is below: ? 33 2/7 weeks vasa previa. FM felt, no LOF, no bleeding or richard. ? Afeb VSS Abdomen soft, NT Uterus NT Ext NT ? I/R 33 2/7 weeks vasa previa status reassuring S/p BMZ S/p magnesium S/p NICU consult GDM well controlled CS for delivery if bleeding occurs ? EMANUEL BARRETT MD * Joy Coleman RN - 09/06/2017 5:15 AM EST Care taken over at 05:15, report taken from NYA Reich. Pt stable this shift per report. Patientasleep, has been educated on what to call out for (acute VB) and independent to call out for postprandial BGs. Will continue to monitor. * Tami Preston MD - 09/05/2017 7:04 PM EST NST Note: NST Fetus A 09/05/2017 HR (Beats/Min) 155 HR Variability moderate (amplitude range 6 to 25 bpm) HR Accelerations present;greater than/equal to 15 bpm;lasting at least 15 seconds HR Decelerations absent Contraction Frequency (Minutes) None Nonstress Test Interpretation Reactive, >32 weeks: two 15 bpm accelerations lasting 15 seconds Overall Impression Reassuring for gestational age Comments - EMERITA ROSARIO MD PGY3 09/05/17 I was the attending physician supervising the resident in the above care and have personally reviewed and interpreted the NST and agree with the above interpretation. TAMI PRESTON MD * Emerita Rosario - 09/05/2017 9:06 AM EST Images from the original note were not included. Obstetrical Antepartum Progress Note Pma Lake is a 27 y.o. woman at 33w1d with an CHITRA of 10/25/2017, admitted for monitoring in the setting of known vasa previa. This is hospital day #40. Active Problems: Patient Active Problem List Diagnosis ??? BMI 45.0-49.9, adult ??? Asthma ??? Vasa previa Overview Note: 0.9cm lateral to internal os ??? Insulin controlled gestational diabetes mellitus (GDM): diagnosed at 7 weeks gestation ??? Previous section x 2 24 Hour Events -- Increased noon NPH from 10 to 14 units daily Subjective: No bleeding, loss of fluid, cramping, richard, or decreased movement. Review of Systems Obstetric Review of Systems Total Weight Gain this 2.268 kg (5 lb) Movement: normal Contractions: none Leaking: None Bleeding; none now Preeclampsia signs and symptoms: None Physical Exam Last value Range last 8 hrs Temperature Temp: 36.8 ??C (98.2 ??F) Temp: -- Heart Rate Heart Rate: 79 Heart Rate: -- Blood Pressure BP: 119/70 BP: -- Respiratory Rate Resp: 18 Resp: -- SpO2 SpO2: 97 % SpO2: -- Gen: appears well, NAD CV: RRR, no murmurs/rubs/gallops Pulm: CTAB, no wheezes/crackles Uterus: non-tender Cervix: Deferred Ext: Warm, well perfused, non-tender, no edema Heart Rate Interpretation: please see separate documentation for today. Most Recent Ultrasound Date: 09/01/17 GA at US: 32w4d EFW: 1819 grams (49%) Growth: Normal for gestational age Amniotic fluid volume: SHERI 8.1cm Placenta: Posterior low lying placenta, vasa previa Presentation: Cephalic GBS Lab Results Component Value Date GBSSCREEN Neg 07/28/2017 Glucose Accord: Assessment & Plan: Pam Lake is a 27 y.o. woman at 33w1d admitted for monitoring with known vasa previa. Vessels continue to traverse across the cervix. Pam will stay hospitalized until 34 weeks, at which time she will deliver via scheduled section on 09/11 at 34w0d. 1. Vasa Previa: Ultrasound 08/11 confirmed persistent vasa previa -Delivery indications: Vaginal bleeding, progressive labor, non-reassuring status, maternal deterioration -Tocolysis: Not indicated -GBS status: Negative but since 09/01. New GBS pending. - status: NST once daily -Last growth: 09/01 (will not need another ultrasound prior to delivery) -Steroid status: complete 07/30, rescue complete as of 08/20 -Magnesium for neuro protection: complete on 08/15 -Consultations: neonatology and anesthesiology -Consents obtained: ?? 2. GDM A2: Currently on 24 units nightly and 10 units every morning of NPH insulin. Continue on moderate sliding scale for coverage. - Increase to NPH 14U every morning -regular gestational diet, continue monitoring of FSG postprandially and fasting. -FSBS fasting (9 AM) and post-prandial 1 hour -Appropriate growth (64%) on last scan 08/11 ?? 3. contraception plan: -Desires 6 week Mirena ?? 4. Routine care: - vitamins daily -Elevated 1 hour and 3 hour, GDM A2 -Tdap given 08/03 -Declines flu vaccine ?? 5. Other issues: -Previous x2 -Asthma: Albuterol nebulizer PRN wheezing, avoid Hemabate -Marijuana use: TEREZA upon admission positive for cannabinoids only -History of depression: Will need 2 week depression screen -Constipation: Colace scheduled, Miralax PRN Patient discussed on Multidisciplinary Rounds EMERITA ROSARIO MD Business Continuity Planning Director PGY3 08/30/2017 Associated attestation - Emanuel Barrett MD - 09/06/2017 3:26 PM EST I have seen and examined the patient, providing beck components as outlined below. ?? I have reviewed the resident???s above note; my evaluation of the patient is below: ? 33 1/7 weeks vasa previa. FM felt, no LOF, no bleeding or richard. ? Afeb VSS Abdomen soft, NT Uterus NT Ext NT ? I/R 33 1/7 weeks vasa previa status reassuring S/p BMZ S/p magnesium S/p NICU consult GDM well controlled CS for delivery if bleeding occurs ? EMANUEL BARRETT MD * Yoly Cueva MD - 09/04/2017 6:52 PM EST PGY-4 OB Daily NST NST Fetus A 09/04/2017 HR (Beats/Min) 150 HR Variability moderate (amplitude range 6 to 25 bpm) HR Accelerations present;lasting at least 15 seconds;greater than/equal to 10 bpm (32 wks gest or less) HR Decelerations none Contraction Frequency (Minutes) none Nonstress Test Interpretation Reactive, >32 weeks: two 15 bpm accelerations lasting 15 seconds Overall Impression Reassuring for gestational age Comments - YOLY CUEVA MD PGY-4 09/04/2017 Associated attestation - Emanuel Barrett MD - 09/06/2017 3:29 PM EST I was the attending physician supervising the resident in the above care and I was present with theresident for the entire procedure. EMANUEL BARRETT MD * Jhonathan Robertson MD - 09/04/2017 10:08 AM EST Images from the original note were not included. Obstetrical Antepartum Progress Note Pam Lake is a 27 y.o. woman at 33w0d with an CHITRA of 10/25/2017, admitted for monitoring in the setting of known vasa previa. This is hospital day #39. Active Problems: Patient Active Problem List Diagnosis ??? BMI 45.0-49.9, adult ??? Asthma ??? Vasa previa Overview Note: 0.9cm lateral to internal os ??? Insulin controlled gestational diabetes mellitus (GDM): diagnosed at 7 weeks gestation ??? Previous section x 2 24 Hour Events -- no acute events Subjective: No bleeding, loss of fluid, cramping, richard, or decreased movement. Review of Systems Obstetric Review of Systems Total Weight Gain this 2.268 kg (5 lb) Movement: normal Contractions: none Leaking: None Bleeding; none now Preeclampsia signs and symptoms: None Physical Exam Last value Range last 8 hrs Temperature Temp: 37 ??C (98.6 ??F) Temp: -- Heart Rate Heart Rate: 90 Heart Rate: -- Blood Pressure BP: 133/76 BP: -- Respiratory Rate Resp: 18 Resp: -- SpO2 SpO2: 97 % SpO2: -- Gen: appears well, NAD CV: RRR, no murmurs/rubs/gallops Pulm: CTAB, no wheezes/crackles Uterus: non-tender Cervix: Deferred Ext: Warm, well perfused, non-tender, no edema Heart Rate Interpretation: please see separate documentation for today. Most Recent Ultrasound Date: 09/01/17 GA at US: 32w4d EFW: 1819 grams (49%) Growth: Normal for gestational age Amniotic fluid volume: SHERI 8.1cm Placenta: Posterior low lying placenta, vasa previa Presentation: Cephalic GBS Lab Results Component Value Date GBSSCREEN Neg 07/28/2017 Glucose Accord: Assessment & Plan: Pam Lake is a 27 y.o. woman at 33w0d admitted for monitoring with known vasa previa. Vessels continue to traverse across the cervix. Pam will stay hospitalized until 34 weeks, at which time she will deliver via scheduled section on 09/11 at 34w0d. 1. Vasa Previa: Ultrasound 08/11 confirmed persistent vasa previa -Delivery indications: Vaginal bleeding, progressive labor, non-reassuring status, maternal deterioration -Tocolysis: Not indicated -GBS status: Negative but since 09/01. New GBS pending. - status: NST once daily -Last growth: 09/01 (will not need another ultrasound prior to delivery) -Steroid status: complete 07/30, rescue complete as of 08/20 -Magnesium for neuro protection: complete on 08/15 -Consultations: neonatology and anesthesiology -Consents obtained: ?? 2. GDM A2: Currently on 24 units nightly and 10 units every morning of NPH insulin. Continue on moderate sliding scale for coverage. -regular gestational diet, continue monitoring of FSG postprandially and fasting. -FSBS fasting (9 AM) and post-prandial -Appropriate growth (64%) on last scan 08/11 ?? 3. contraception plan: -Desires 6 week Mirena ?? 4. Routine care: - vitamins daily -Elevated 1 hour and 3 hour, GDM A2 -Tdap given 08/03 -Declines flu vaccine ?? 5. Other issues: -Previous x2 -Asthma: Albuterol nebulizer PRN wheezing, avoid Hemabate -Marijuana use: TEREZA upon admission positive for cannabinoids only -History of depression: Will need 2 week depression screen -Constipation: Colace scheduled, Miralax PRN Patient discussed on Multidisciplinary Rounds JHONATHAN ROBERTSON MD Business Continuity Planning Director PGY3 08/30/2017 Associated attestation - Crow Vasquez MD - 09/04/2017 10:17 AM EST Maternal Medicine Attending Note Patient: Pam Lake I performed a history and physical exam of the patient and discussed her management with Dr. Robertson. I reviewed Dr. Robertson's note and agree with the documented findings and plan of care. My evaluation isas below: 33w0d weeks EGA; Patient admitted with complicated by vasa previa. LOS: 38 days Subjective: No complaints. Good movement. No contractions. Last value Range last 8 hrs Temperature Temp: 37 ??C (98.6 ??F) Temp: -- Heart Rate Heart Rate: 90 Heart Rate: -- Blood Pressure BP: 133/76 BP: -- Respiratory Rate Resp: 18 Resp: -- SpO2 SpO2: 97 % SpO2: -- *Abdomen: Soft, non-tender, not distended *Uterus: Soft, Non-tender *Extremities: Non-tender; no edema *NST: See separate report. Impression: Vasa previa at 33w0d weeks EGA. Plan: Delivery scheduled at 34w0d; deliver for any bleeding. Continued in patient management for proximity to OR and NICU due to risk of hemorrhage. Jane Vasquez MD Maternal- Medicine * Allie Carrillo RN - 09/03/2017 8:17 PM EST Patient reports + FM. Patient denied vaginal bleeding, LOF and abdominal tenderness. Reactive NST obtained. BIT RN came to see patient this shift. Patient up in room independently. Will continue to closely monitor. * Kaylen Gabriel MD - 09/03/2017 5:45 PM EST NST Note NST Fetus A 09/03/2017 HR (Beats/Min) 150 HR Variability moderate (amplitude range 6 to 25 bpm) HR Accelerations present HR Decelerations none Contraction Frequency (Minutes) none Nonstress Test Interpretation Reactive, >32 weeks: two 15 bpm accelerations lasting 15 seconds Overall Impression Reassuring for gestational age Comments - Reactive, reassuring NST Repeat daily KAYLEN GABRIEL MD PGY4 09/03/2017 Associated attestation - Jordon Zurita MD - 09/07/2017 10:23 AM EST I personally reviewed the nonstress test and agree with the interpretation as documented above. Jordon Zurita MD 09/07/2017 10:23 AM * Jhonathan Robertson MD - 09/03/2017 6:28 AM EST Images from the original note were not included. Obstetrical Antepartum Progress Note Pam Lake is a 27 y.o. woman at 32w6d with an CHITRA of 10/25/2017, admitted for monitoring in the setting of known vasa previa. This is hospital day #38. Active Problems: Patient Active Problem List Diagnosis ??? BMI 45.0-49.9, adult ??? Asthma ??? Vasa previa Overview Note: 0.9cm lateral to internal os ??? Insulin controlled gestational diabetes mellitus (GDM): diagnosed at 7 weeks gestation ??? Previous section x 2 24 Hour Events -- no acute events Subjective: No bleeding, loss of fluid, cramping, richard, or decreased movement. Patientis agreeable to see Behavioral Intervention Team. States she had apple juice which resulted in her elevated glucose value. No complaints today. Review of Systems Obstetric Review of Systems Total Weight Gain this 2.268 kg (5 lb) Movement: normal Contractions: none Leaking: None Bleeding; none now Preeclampsia signs and symptoms: None Physical Exam Last value Range last 8 hrs Temperature Temp: 37.3 ??C (99.1 ??F) Temp: -- Heart Rate Heart Rate: (!) 109 Heart Rate: -- Blood Pressure BP: 121/83 BP: -- Respiratory Rate Resp: 18 Resp: -- SpO2 SpO2: 97 % SpO2: -- Gen: appears well, NAD CV: RRR, no murmurs/rubs/gallops Pulm: CTAB, no wheezes/crackles Uterus: non-tender Cervix: Deferred Ext: Warm, well perfused, non-tender, no edema Heart Rate Interpretation: please see separate documentation for today. Most Recent Ultrasound Date: 09/01/17 GA at US: 32w4d EFW: 1819 grams (49%) Growth: Normal for gestational age Amniotic fluid volume: SHERI 8.1cm Placenta: Posterior low lying placenta, vasa previa Presentation: Cephalic GBS Lab Results Component Value Date GBSSCREEN Neg 07/28/2017 Glucose Accord: Assessment & Plan: Pam Lake is a 27 y.o. woman at 32w6d admitted for monitoring with known vasa previa. Vessels continue to traverse across the cervix. Pam will stay hospitalized until 34 weeks, at which time she will deliver via scheduled section on 09/11 at 34w0d. 1. Vasa Previa: Ultrasound 08/11 confirmed persistent vasa previa -Delivery indications: Vaginal bleeding, progressive labor, non-reassuring status, maternal deterioration -Tocolysis: Not indicated -GBS status: Negative (will on 09/01/17 at 32 weeks). New GBS pending. - status: NST once daily -Last growth: 09/01 (will not need another ultrasound prior to delivery) -Steroid status: complete 07/30, rescue complete as of 08/20 -Magnesium for neuro protection: complete on 08/15 -Consultations: neonatology and anesthesiology -Consents obtained: ?? 2. GDM A2: Currently on 24 units nightly and 10 units every morning of NPH insulin. Continue on moderate sliding scale for coverage. -regular gestational diet, continue monitoring of FSG postprandially and fasting. -FSBS fasting (9 AM) and post-prandial -Appropriate growth (64%) on last scan 08/11 ?? 3. contraception plan: -Desires 6 week Mirena ?? 4. Routine care: - vitamins daily -Elevated 1 hour and 3 hour, GDM A2 -Tdap given 08/03 -Declines flu vaccine ?? 5. Other issues: -Previous x2 -Asthma: Albuterol nebulizer PRN wheezing, avoid Hemabate -Marijuana use: TEREZA upon admission positive for cannabinoids only -History of depression: Will need 2 week depression screen -Constipation: Colace scheduled, Miralax PRN Patient discussed on Multidisciplinary Rounds JHONATHAN ROBERTSON MD Business Continuity Planning Director PGY3 08/30/2017 Associated attestation - Emanuel Barrett MD - 09/03/2017 8:23 PM EST I have seen and examined the patient, providing beck components as outlined below. I have reviewed the resident???s above note; my evaluation of the patient is below: ?? 32 6/7 weeks vasa previa. FM felt, no LOF, no bleeding or richard. ?? Afeb VSS Abdomen soft, NT Uterus NT Ext NT ?? I/R 32 6/7 weeks vasa previa status reassuring S/p BMZ S/p magnesium S/p NICU consult GDM well controlled CS for delivery if bleeding occurs ?? EMANUEL BARRETT MD * Kaylen Gabriel MD - 09/03/2017 1:28 AM EST NST Note NST Fetus A 09/03/2017 HR (Beats/Min) 155 HR Variability moderate (amplitude range 6 to 25 bpm) HR Accelerations present HR Decelerations absent Contraction Frequency (Minutes) none Nonstress Test Interpretation Reactive, >32 weeks: two 15 bpm accelerations lasting 15 seconds Overall Impression Reassuring for gestational age Comments - Reactive, reassuring NST Repeat daily KAYLEN GABRIEL MD PGY4 09/03/2017 Associated attestation - Farnaz Pino MD - 09/03/2017 2:23 AM EST I personally reviewed the heart rate tracing. The NST is reactive and the tracing is reassuring. FARNAZ PINO MD * Joy Coleman RN - 09/02/2017 10:35 AM EST 9:30 AM Team present for AP rounds, pt refusing morning fasting BG stating No, I want to sleep. States she will call out when she is ready for her assessment, medications, and blood sugars. * Jhonathan Robertson MD - 09/02/2017 6:17 AM EST Images from the original note were not included. Obstetrical Antepartum Progress Note Pam Lake is a 27 y.o. woman at 32w5d with an CHITRA of 10/25/2017, admitted for monitoring in the setting of known vasa previa. This is hospital day #37. Active Problems: Patient Active Problem List Diagnosis ??? BMI 45.0-49.9, adult ??? Asthma ??? Vasa previa Overview Note: 0.9cm lateral to internal os ??? Low-lying placenta ??? Insulin controlled gestational diabetes mellitus (GDM): diagnosed at 7 weeks gestation ??? Previous section x 2 24 Hour Events -- no acute events Subjective: No bleeding, loss of fluid, cramping, richard, or decreased movement. Patientis agreeable to see Behavioral Intervention Team. No complaints today. Review of Systems Obstetric Review of Systems Total Weight Gain this 2.268 kg (5 lb) Movement: normal Contractions: none Leaking: None Bleeding; none now Preeclampsia signs and symptoms: None Physical Exam Last value Range last 8 hrs Temperature Temp: 37 ??C (98.6 ??F) Temp: -- Heart Rate Heart Rate: 88 Heart Rate: -- Blood Pressure BP: 99/78 BP: -- Respiratory Rate Resp: 16 Resp: -- SpO2 SpO2: 99 % SpO2: -- Gen: appears well, NAD CV: RRR, no murmurs/rubs/gallops Pulm: CTAB, no wheezes/crackles Uterus: non-tender Cervix: Deferred Ext: Warm, well perfused, non-tender, no edema Heart Rate Interpretation: please see separate documentation for today. Most Recent Ultrasound Date: 09/01/17 GA at US: 32w4d EFW: 1819 grams (49%) Growth: Normal for gestational age Amniotic fluid volume: SHERI 8.1cm Placenta: Posterior low lying placenta, vasa previa Presentation: Cephalic GBS Lab Results Component Value Date GBSSCREEN Neg 07/28/2017 Glucose Accord: Assessment & Plan: Pam Lake is a 27 y.o. woman at 32w5d admitted for monitoring with known vasa previa. Vessels continue to traverse across the cervix. Pam will stay hospitalized until 34 weeks, at which time she will deliver via scheduled section on 09/11 at 34w0d. 1. Vasa Previa: Ultrasound 08/11 confirmed persistent vasa previa -Delivery indications: Vaginal bleeding, progressive labor, non-reassuring status, maternal deterioration -Tocolysis: Not indicated -GBS status: Negative (will on 09/01/17 at 32 weeks). New GBS pending. - status: NST once daily -Last growth: 09/01 (will not need another ultrasound prior to delivery) -Steroid status: complete 07/30, rescue complete as of 08/20 -Magnesium for neuro protection: complete on 08/15 -Consultations: neonatology and anesthesiology -Consents obtained: ?? 2. GDM A2: Currently on 24 units nightly and 10 units every morning of NPH insulin. Continue on moderate sliding scale for coverage. -regular gestational diet, continue monitoring of FSG postprandially and fasting. -FSBS fasting (9 AM) and post-prandial -Appropriate growth (64%) on last scan 08/11 ?? 3. contraception plan: -Desires 6 week Mirena ?? 4. Routine care: - vitamins daily -Elevated 1 hour and 3 hour, GDM A2 -Tdap given 08/03 -Declines flu vaccine ?? 5. Other issues: -Previous x2 -Asthma: Albuterol nebulizer PRN wheezing, avoid Hemabate -Marijuana use: TEREZA upon admission positive for cannabinoids only -History of depression: Will need 2 week depression screen -Constipation: Colace scheduled, Miralax PRN Patient discussed on Multidisciplinary Rounds JHONATHAN ROBERTSON MD Business Continuity Planning Director PGY3 08/30/2017 Associated attestation - Emanuel Barrett MD - 09/03/2017 8:23 PM EST I have seen and examined the patient, providing beck components as outlined below. I have reviewed the resident???s above note; my evaluation of the patient is below: ?? 32 5/7 weeks vasa previa. FM felt, no LOF, no bleeding or richard. ?? Afeb VSS Abdomen soft, NT Uterus NT Ext NT ?? I/R 32 5/7 weeks vasa previa status reassuring S/p BMZ S/p magnesium S/p NICU consult GDM well controlled CS for delivery if bleeding occurs ?? EMANUEL BARRETT MD * Jhonathan Robertson MD - 09/01/2017 5:28 PM EST NST Note NST Fetus A 09/01/2017 HR (Beats/Min) 160 HR Variability moderate (amplitude range 6 to 25 bpm) HR Accelerations present;lasting at least 15 seconds;greater than/equal to 15 bpm HR Decelerations none Contraction Frequency (Minutes) none Nonstress Test Interpretation Reactive, >32 weeks: two 15 bpm accelerations lasting 15 seconds Overall Impression Reassuring for gestational age Comments - JHONATHAN ROBERTSON MD 09/01/2017 Associated attestation - Percy Huerta MD - 09/03/2017 2:23 PM EST I personally reviewed the FHR Tracing and agree with the Resident???s interpretation. PERCY HUERTA MD * Jhonathan Robertson MD - 09/01/2017 6:21 AM EST Images from the original note were not included. Obstetrical Antepartum Progress Note Pam Lake is a 27 y.o. woman at 32w4d with an CHITRA of 10/25/2017, admitted for monitoring in the setting of known vasa previa. This is hospital day #36. Active Problems: Patient Active Problem List Diagnosis ??? Asthma ??? Vasa previa Overview Note: 0.9cm lateral to internal os ??? Low-lying placenta ??? Insulin controlled gestational diabetes mellitus (GDM): diagnosed at 7 weeks gestation ??? Previous section x 2 24 Hour Events -- no acute events Subjective: No bleeding, loss of fluid, cramping, richard, or decreased movement. Excitedfor ultrasound today. No complaints today. Review of Systems Obstetric Review of Systems Total Weight Gain this 2.268 kg (5 lb) Movement: normal Contractions: none Leaking: None Bleeding; none now Preeclampsia signs and symptoms: None Physical Exam Last value Range last 8 hrs Temperature Temp: 37.1 ??C (98.8 ??F) Temp: -- Heart Rate Heart Rate: (!) 150 Heart Rate: -- Blood Pressure BP: 118/67 BP: -- Respiratory Rate Resp: 16 Resp: -- SpO2 SpO2: 99 % SpO2: -- Gen: appears well, NAD CV: RRR, no murmurs/rubs/gallops Pulm: CTAB, no wheezes/crackles Uterus: non-tender Cervix: Deferred Ext: Warm, well perfused, non-tender, no edema Heart Rate Interpretation: please see separate documentation for today. Most Recent Ultrasound Date: 08/11/17 GA at US: 29w2d EFW: 1349 grams, 64%ile Growth: Normal for gestational age Amniotic fluid volume: SHERI 11.44 cm, MVP 4.69 cm Placenta: Posterior low lying placenta, vasa previa remains Presentation: Cephalic GBS Lab Results Component Value Date GBSSCREEN Neg 07/28/2017 Glucose Accord: Assessment & Plan: Pam Lake is a 27 y.o. woman at 32w4d admitted for monitoring with known vasa previa. Vessels continue to traverse across the cervix. Pam will stay hospitalized until 34 weeks, at which time she will deliver via scheduled section on 09/11 at 34w0d. 1. Vasa Previa: Ultrasound 08/11 confirmed persistent vasa previa -Delivery indications: Vaginal bleeding, progressive labor, non-reassuring status, maternal deterioration -Tocolysis: Not indicated -GBS status: Negative (will on 09/01/17 at 32 weeks). Will plan to recollect today. - status: NST once daily -Last growth 08/11 (q3wk next on 09/01) -Steroid status: complete 07/30, rescue complete as of 08/20 -Magnesium for neuro protection: complete on 08/15 -Consultations: neonatology and anesthesiology -Consents obtained: ?? 2. GDM A2: Currently on 24 units nightly and 10 units every morning of NPH insulin. Continue on moderate sliding scale for coverage. -regular gestational diet, continue monitoring of FSG postprandially and fasting. -FSBS fasting (9 AM) and post-prandial -Appropriate growth (64%) on last scan 12/19 ?? 3. contraception plan: -Desires 6 week Mirena ?? 4. Routine care: - vitamins daily -Elevated 1 hour and 3 hour, GDM A2 -Tdap given 08/03 -Declines flu vaccine ?? 5. Other issues: -Previous x2 -Asthma: Albuterol nebulizer PRN wheezing, avoid Hemabate -Marijuana use: TEREZA upon admission positive for cannabinoids only -History of depression: Will need 2 week depression screen -Constipation: Colace scheduled, Miralax PRN Patient discussed on Multidisciplinary Rounds JHONATHAN ROBERTSON MD Business Continuity Planning Director PGY3 08/30/2017 Associated attestation - Emanuel Barrett MD - 09/03/2017 8:22 PM EST I have seen and examined the patient, providing beck components as outlined below. I have reviewed the resident???s above note; my evaluation of the patient is below: ?? 32 4/7 weeks vasa previa. FM felt, no LOF, no bleeding or richard. ?? Afeb VSS Abdomen soft, NT Uterus NT Ext NT ?? I/R 32 4/7 weeks vasa previa status reassuring S/p BMZ S/p magnesium S/p NICU consult GDM well controlled CS for delivery if bleeding occurs ?? EMANUEL BARRETT MD * Stephanie Moseley MSW - 08/31/2017 4:38 PM EST Social Work Note Office of Care Management HUMAN RESOURCES PSYCHOLOGIST met with pt at bedside to check in. Pt reports she is doing well and is still counting down thedays until baby is born. She seems to be in higher spirits the closer the due date is. Pt reports no needs as of now. Plan: F/u with pt next week or as needed. DIEGO Ruiz Pager: [phone] * Jhonathan Robertson MD - 08/31/2017 5:07 AM EST Images from the original note were not included. Obstetrical Antepartum Progress Note Pam Lake is a 27 y.o. woman at 32w3d with an CHITRA of 10/25/2017, admitted for monitoring in the setting of known vasa previa. This is hospital day #35. Active Problems: Patient Active Problem List Diagnosis ??? Asthma ??? Vasa previa Overview Note: 0.9cm lateral to internal os ??? Low-lying placenta ??? Insulin controlled gestational diabetes mellitus (GDM): diagnosed at 7 weeks gestation ??? Previous section x 2 24 Hour Events -- no acute events Subjective: Slept well overnight. No bleeding, loss of fluid, cramping, richard, or decreased movement. No complaints today. Review of Systems Obstetric Review of Systems Total Weight Gain this 2.268 kg (5 lb) Movement: normal Contractions: none Leaking: None Bleeding; none now Preeclampsia signs and symptoms: None Physical Exam Last value Range last 8 hrs Temperature Temp: 36.8 ??C (98.2 ??F) Temp: -- Heart Rate Heart Rate: 82 Heart Rate: -- Blood Pressure BP: 125/63 BP: -- Respiratory Rate Resp: 18 Resp: -- SpO2 SpO2: 100 % SpO2: -- Gen: appears well, NAD CV: RRR, no murmurs/rubs/gallops Pulm: CTAB, no wheezes/crackles Uterus: non-tender Cervix: Deferred Ext: Warm, well perfused, non-tender, no edema Heart Rate Interpretation: Reactive tracing yesterday, please see separate documentation for today. Most Recent Ultrasound Date: 08/11/17 GA at US: 29w2d EFW: 1349 grams, 64%ile Growth: Normal for gestational age Amniotic fluid volume: SHERI 11.44 cm, MVP 4.69 cm Placenta: Posterior low lying placenta, vasa previa remains Presentation: Cephalic GBS Lab Results Component Value Date GBSSCREEN Neg 07/28/2017 Glucose Accord: Assessment & Plan: Pam Lake is a 27 y.o. woman at 32w3d admitted for monitoring with known vasa previa. Vessels continue to traverse across the cervix. Pam will stay hospitalized until 34 weeks, at which time she will deliver via scheduled section on 09/11 at 34w0d. 1. Vasa Previa: Ultrasound 08/11 confirmed persistent vasa previa -Delivery indications: Vaginal bleeding, progressive labor, non-reassuring status, maternal deterioration -Tocolysis: Not indicated -GBS status: Negative (will on 09/01/17 at 32 weeks) - status: NST once daily -Last growth 08/11 (q3wk next on 09/01) -Steroid status: complete 07/30, rescue complete as of 08/20 -Magnesium for neuro protection: complete on 08/15 -Consultations: neonatology and anesthesiology -Consents obtained: ?? 2. GDM A2: Currently on 24 units nightly and 10 units every morning of NPH insulin. Continue on moderate sliding scale for coverage. -regular gestational diet, continue monitoring of FSG postprandially and fasting. -FSBS fasting (9 AM) and post-prandial -Appropriate growth (64%) on last scan 08/11 ?? 3. contraception plan: -Desires 6 week Mirena ?? 4. Routine care: - vitamins daily -Elevated 1 hour and 3 hour, GDM A2 -Tdap given 08/03 -Declines flu vaccine ?? 5. Other issues: -Previous x2: Consider active type and screen day of delivery -Asthma: Albuterol nebulizer PRN wheezing, avoid Hemabate -Marijuana use: TEREZA upon admission positive for cannabinoids only -History of depression: Will need 2 week depression screen -Constipation: Colace scheduled, Miralax PRN Patient discussed on Multidisciplinary Rounds JHONATHAN ROBERTSON MD Business Continuity Planning Director PGY3 08/30/2017 Associated attestation - Emanuel Barrett MD - 09/03/2017 8:22 PM EST I have seen and examined the patient, providing beck components as outlined below. I have reviewed the resident???s above note; my evaluation of the patient is below: ?? 32 1 weeks vasa previa. FM felt, no LOF, no bleeding or richard. ?? Afeb VSS Abdomen soft, NT Uterus NT Ext NT ?? I/R 32 1 weeks vasa previa status reassuring S/p BMZ S/p magnesium S/p NICU consult GDM well controlled CS for delivery if bleeding occurs ?? EMANUEL BARRETT MD * Kaylen Gabriel MD - 08/30/2017 8:52 PM EST NST Note NST Fetus A 08/30/2017 HR (Beats/Min) 155 HR Variability moderate (amplitude range 6 to 25 bpm) HR Accelerations present HR Decelerations variable Contraction Frequency (Minutes) none Nonstress Test Interpretation Reactive, >32 weeks: two 15 bpm accelerations lasting 15 seconds Overall Impression Reassuring for gestational age Comments one shallow variable deceleration lasting 20 seconds, otherwise tracing is reassuring for gestational age Reactive, reassuring NST Repeat daily KAYLEN GABRIEL MD PGY4 08/30/2017 Associated attestation - Percy Huerta MD - 08/30/2017 9:31 PM EST I personally reviewed the FHR Tracing and agree with the Resident???s interpretation. PERCY HUERTA MD * Jhonathan Robertson MD - 08/30/2017 5:44 AM EST Images from the original note were not included. Obstetrical Antepartum Progress Note Pam Lake is a 27 y.o. woman at 32w2d with an CHITRA of 10/25/2017, admitted for monitoring in the setting of known vasa previa. This is hospital day #34. Active Problems: Patient Active Problem List Diagnosis ??? Asthma ??? Vasa previa Overview Note: 0.9cm lateral to internal os ??? Low-lying placenta ??? Insulin controlled gestational diabetes mellitus (GDM): diagnosed at 7 weeks gestation ??? Previous section x 2 24 Hour Events -- no acute events Subjective: Slept well overnight. No bleeding, loss of fluid, cramping, richard, or decreased movement. No complaints today Review of Systems Obstetric Review of Systems Total Weight Gain this 2.268 kg (5 lb) Movement: normal Contractions: none Leaking: None Bleeding; none now Preeclampsia signs and symptoms: None Physical Exam Last value Range last 8 hrs Temperature Temp: 37.1 ??C (98.8 ??F) Temp: -- Heart Rate Heart Rate: (!) 109 Heart Rate: -- Blood Pressure BP: 124/75 BP: -- Respiratory Rate Resp: 16 Resp: -- SpO2 SpO2: 98 % SpO2: -- Gen: appears well, NAD CV: RRR, no murmurs/rubs/gallops Pulm: CTAB, no wheezes/crackles Uterus: non-tender Cervix: Deferred Ext: Warm, well perfused, non-tender, no edema Heart Rate Interpretation: Reactive tracing yesterday, please see separate documentation for today. Most Recent Ultrasound Date: 08/11/17 GA at US: 29w2d EFW: 1349 grams, 64%ile Growth: Normal for gestational age Amniotic fluid volume: SHERI 11.44 cm, MVP 4.69 cm Placenta: Posterior low lying placenta, vasa previa remains Presentation: Cephalic GBS Lab Results Component Value Date GBSSCREEN Neg 07/28/2017 Glucose Accord: Assessment & Plan: Pam Lake is a 27 y.o. woman at 32w2d admitted for monitoring with known vasa previa. Vessels continue to traverse across the cervix. Pam will stay hospitalized until 34 weeks, at which time she will deliver via scheduled section on 09/11 at 34w0d. 1. Vasa Previa: Ultrasound 08/11 confirmed persistent vasa previa -Delivery indications: Vaginal bleeding, progressive labor, non-reassuring status, maternal deterioration -Tocolysis: Not indicated -GBS status: Negative (will on 09/01/17 at 32 weeks) - status: NST once daily -Last growth 08/11 (q3wk next on 09/01) -Steroid status: complete 07/30, rescue complete as of 08/20 -Magnesium for neuro protection: complete on 08/15 -Consultations: neonatology and anesthesiology -Consents obtained: ?? 2. GDM A2: Currently on 24 units nightly and 10 units every morning of NPH insulin. Continue on moderate sliding scale for coverage. -regular gestational diet, continue monitoring of FSG postprandially and fasting. -FSBS fasting (9 AM) and post-prandial -Appropriate growth (64%) on last scan 08/11 ?? 3. contraception plan: -Desires 6 week Mirena ?? 4. Routine care: - vitamins daily -Elevated 1 hour and 3 hour, GDM A2 -Tdap given 08/03 -Declines flu vaccine ?? 5. Other issues: -Previous x2: Consider active type and screen day of delivery -Asthma: Albuterol nebulizer PRN wheezing, avoid Hemabate -Marijuana use: TEREZA upon admission positive for cannabinoids only -History of depression: Will need 2 week depression screen -Constipation: Colace scheduled, Miralax PRN Patient discussed on Multidisciplinary Rounds JHONATHAN ROBERTSON MD Business Continuity Planning Director PGY3 08/30/2017 Associated attestation - Crow Vasquez MD - 08/31/2017 8:31 AM EST Maternal Medicine Attending Note Patient: Pam Lopez Lake I performed a history and physical exam of the patient and discussed her management with Dr. Robertson. I reviewed Dr. Robertson's note and agree with the documented findings and plan of care. My evaluation isas below: 32w2d weeks EGA; Patient admitted with complicated by vasa previa. LOS: 34 days Subjective: No complaints. Good movement. No contractions. Last value Range last 8 hrs Temperature Temp: 36.8 ??C (98.2 ??F) Temp: -- Heart Rate Heart Rate: 82 Heart Rate: -- Blood Pressure BP: 125/63 BP: -- Respiratory Rate Resp: 18 Resp: -- SpO2 SpO2: 100 % SpO2: -- *Abdomen: Soft, non-tender, not distended *Uterus: Soft, Non-tender *Extremities: Non-tender; no edema *NST: See separate report. Impression: Vasa previa at 32w2d weeks EGA. Gestational diabetes; probable type 2. Overall good glycemic control. Plan: Continued in patient management for proximity to OR and NICU due to risk of hemorrhage. Deliver for any vaginal bleeding. If undelivered, plan delivery at 34 weeks. Jane Vasquez MD Maternal- Medicine * Vanessa Reis MD - 08/29/2017 8:30 PM EST Antepartum NST Note NST Fetus A 08/29/2017 HR (Beats/Min) 155 HR Variability moderate (amplitude range 6 to 25 bpm) HR Accelerations lasting at least 15 seconds;greater than/equal to 15 bpm HR Decelerations none Contraction Frequency (Minutes) none Nonstress Test Interpretation Reactive, >32 weeks: two 15 bpm accelerations lasting 15 seconds Overall Impression Reassuring for gestational age Comments - Interpretation: Reactive, overall reassuring for gestational age. VANESSA REIS MD PGY-3 08/30/2017 Associated attestation - Crow Vasquez MD - 08/30/2017 7:14 AM EST I personally reviewed and interpreted this NST. Crow VASQUEZ MD * Vanessa Reis MD - 08/29/2017 11:00 AM EST Images from the original note were not included. Obstetrical Antepartum Progress Note Pma Lake is a 27 y.o. woman at 32w1d with an CHITRA of 10/25/2017, admitted for monitoring in the setting of known vasa previa. This is hospital day #33. Active Problems: Patient Active Problem List Diagnosis ??? Asthma ??? Vasa previa Overview Note: 0.9cm lateral to internal os ??? Low-lying placenta ??? Insulin controlled gestational diabetes mellitus (GDM): diagnosed at 7 weeks gestation ??? Previous section x 2 24 Hour Events -- no acute events Subjective: Slept well overnight. No bleeding, loss of fluid, cramping, richard, or decreased movement. No complaints today Review of Systems Obstetric Review of Systems Total Weight Gain this 2.268 kg (5 lb) Movement: normal Contractions: none Leaking: None Bleeding; none now Preeclampsia signs and symptoms: None Physical Exam Last value Range last 8 hrs Temperature Temp: 36.9 ??C (98.4 ??F) Temp: -- Heart Rate Heart Rate: 91 Heart Rate: -- Blood Pressure BP: 116/78 BP: -- Respiratory Rate Resp: 20 Resp: -- SpO2 SpO2: 100 % SpO2: -- Gen: appears well, NAD CV: RRR, no murmurs/rubs/gallops Pulm: CTAB, no wheezes/crackles Uterus: non-tender Cervix: Deferred Ext: Warm, well perfused, non-tender, no edema Heart Rate Interpretation: Reactive tracing yesterday, please see separate documentation for today. Most Recent Ultrasound Date: 08/11/17 GA at US: 29w2d EFW: 1349 grams, 64%ile Growth: Normal for gestational age Amniotic fluid volume: SHERI 11.44 cm, MVP 4.69 cm Placenta: Posterior low lying placenta, vasa previa remains Presentation: Cephalic GBS Lab Results Component Value Date GBSSCREEN Neg 07/28/2017 Glucose Accord: Assessment & Plan: Pam Lake is a 27 y.o. woman at 32w1d admitted for monitoring with known vasa previa. Vessels continue to traverse across the cervix. Pam will stay hospitalized until 34 weeks, at which time she will deliver via scheduled section on 09/11 at 34w0d. 1. Vasa Previa: Ultrasound 08/11 confirmed persistent vasa previa -Delivery indications: Vaginal bleeding, progressive labor, non-reassuring status, maternal deterioration -Tocolysis: Not indicated -GBS status: Negative (will on 09/01/17 at 32 weeks) - status: NST once daily -Last growth 08/11 (q3wk next on 09/01) -Steroid status: complete 07/30, rescue complete as of 08/20 -Magnesium for neuro protection: complete on 08/15 -Consultations: neonatology and anesthesiology -Consents obtained: ?? 2. GDM A2: Currently on 24 units nightly and 10 units every morning of NPH insulin. Continue on moderate sliding scale for coverage. -regular gestational diet, continue monitoring of FSG postprandially and fasting. -FSBS fasting (9 AM) and post-prandial -Appropriate growth (64%) on last scan 08/11 ?? 3. contraception plan: -Desires 6 week Mirena ?? 4. Routine care: - vitamins daily -Elevated 1 hour and 3 hour, GDM A2 -Tdap given 08/03 -Declines flu vaccine ?? 5. Other issues: -Previous x2: Consider active type and screen day of delivery -Asthma: Albuterol nebulizer PRN wheezing, avoid Hemabate -Marijuana use: TEREAZ upon admission positive for cannabinoids only -History of depression: Will need 2 week depression screen -Constipation: Colace scheduled, Miralax PRN Patient discussed on Multidisciplinary Rounds Note written in conjunction with: JHONATHAN ROBERTSON MD PGY3 08/29/2017 VANESSA REIS MD PGY-3 08/29/2017 Associated attestation - Crow Vasquez MD - 08/29/2017 1:43 PM EST Maternal Medicine Attending Note Patient: Pam Lopez Jaya I performed a history and physical exam of the patient and discussed her management with Dr. Reis. I reviewed Dr. Reis's note and agree with the documented findings and plan of care. My evaluation isas below: 32w1d weeks EGA; Patient admitted with complicated by vasa previa. LOS: 32 days Subjective: No complaints. Good movement. No contractions. Last value Range last 8 hrs Temperature Temp: 36.9 ??C (98.4 ??F) Temp: -- Heart Rate Heart Rate: 91 Heart Rate: -- Blood Pressure BP: 116/78 BP: -- Respiratory Rate Resp: 20 Resp: -- SpO2 SpO2: 100 % SpO2: -- *Abdomen: Soft, non-tender, not distended *Uterus: Soft, Non-tender *Extremities: Non-tender; no edema *NST: See separate report. Impression: Vasa previa at 32w1d weeks EGA. Plan: Continued in patient management for proximity to OR and NICU due to risk of hemorrhage. Jane Vasquez MD Maternal- Medicine * Jhonathan Robertson MD - 08/28/2017 6:26 PM EST PGY3 NST Note NST Fetus A 08/28/2017 HR (Beats/Min) 155 HR Variability moderate (amplitude range 6 to 25 bpm) HR Accelerations present;lasting at least 15 seconds;greater than/equal to 15 bpm HR Decelerations none Contraction Frequency (Minutes) none Nonstress Test Interpretation Reactive, >32 weeks: two 15 bpm accelerations lasting 15 seconds Overall Impression Reassuring for gestational age Comments - JHONATHAN ROBERTSON MD 08/28/2017 Associated attestation - Yeny Waterman MD - 09/01/2017 9:34 AM EST I personally reviewed and interpreted this NST. Yeny Waterman MD * TrumanluisitoWang mars Elba - 08/28/2017 3:04 PM EST Nutrition Services - Follow-up Note Pam Lake : 1990 AGE: 27 y.o. Patient Active Problem List Diagnosis Date Noted ??? Hospital-Asthma 07/28/2017 ??? Hospital-Vasa previa 07/09/2017 ??? Low-lying placenta 07/09/2017 ??? Hospital-Insulin controlled gestational diabetes mellitus (GDM): diagnosed at 7 weeks /06/2017 ??? Hospital-Previous section x 2 05/29/2017 Reason for Nutrition Intervention: Follow-up Diet Order: Gestational Appetite: Good-per pt Food allergies: NKFA Chewing/Swallowing difficulty: none noted. Ht Readings from Last 3 Encounters: 08/24/17 149.9 cm (4' 11.02) 06/04/17 (!) 149.9 cm (4' 11) Wt Readings from Last 3 Encounters: 08/24/17 104.1 kg (229 lb 8 oz) 07/28/17 (!) 104.8 kg (231 lb) 07/09/17 (!) 104.1 kg (229 lb 9.6 oz) Body mass index is 46.33 kg/(m^2). Vitamins/Minerals: ??noted. Tums noted Assessment: Patient denies further need for nutrition education. Pt is now taking a regular gestational diet, and maintains wnl post prandial blood glucose eating a regular diet. Pt has educational material at her bedside Nutrition for a Woman with gestational Diabetes and a complete menu nutrient analysis for ordering her meals. Pt expressed to proposal lead writer that she enjoys her current diet order stating it is better. She reported a good appetite without difficulty chewing or swallowing. Nursing documentation notes 100% PO intake. She is tolerating her current diet without nausea or vomiting. Pt denies constipation and diarrhea, last BM 08/27/17 per pt. Pt declined need for scheduled snacks nicolas reddy, pt will call dietary if needed. Pt had no further questions at this time. Encouraged pt to contact Food and Nutrition services with any questions that may arise. Nutrition Plan: Continue current diet. Encourage good po intake. Monitor weight. Support and encouragement provided. Nutrition services to follow thru hospital course unless consulted in the interim. RAGHAVENDRA Koehler * Jhonathan Roebrtson MD - 08/28/2017 4:33 AM EST Images from the original note were not included. Obstetrical Antepartum Progress Note Pam Lake is a 27 y.o. woman at 32w0d with an CHITRA of 10/25/2017, admitted for monitoring in the setting of known vasa previa. This is hospital day #32. Active Problems: Patient Active Problem List Diagnosis ??? Asthma ??? Vasa previa Overview Note: 0.9cm lateral to internal os ??? Low-lying placenta ??? Insulin controlled gestational diabetes mellitus (GDM): diagnosed at 7 weeks gestation ??? Previous section x 2 24 Hour Events -- discussion with patient about risks of leaving the unit. Subjective: Slept well overnight. No bleeding, loss of fluid, cramping, richard, or decreased movement. No complaints today Review of Systems Obstetric Review of Systems Total Weight Gain this 2.268 kg (5 lb) Movement: normal Contractions: none Leaking: None Bleeding; none now Preeclampsia signs and symptoms: None Physical Exam Last value Range last 8 hrs Temperature Temp: 37 ??C (98.6 ??F) Temp: -- Heart Rate Heart Rate: 94 Heart Rate: -- Blood Pressure BP: 110/66 BP: -- Respiratory Rate Resp: 18 Resp: -- SpO2 SpO2: 99 % SpO2: -- Gen: appears well, NAD CV: RRR, no murmurs/rubs/gallops Pulm: CTAB, no wheezes/crackles Uterus: non-tender Cervix: Deferred Ext: Warm, well perfused, non-tender, no edema Heart Rate Interpretation: Reactive tracing yesterday, please see separate documentation for today. Most Recent Ultrasound Date: 08/11/17 GA at US: 29w2d EFW: 1349 grams, 64%ile Growth: Normal for gestational age Amniotic fluid volume: SHERI 11.44 cm, MVP 4.69 cm Placenta: Posterior low lying placenta, vasa previa remains Presentation: Cephalic GBS Lab Results Component Value Date GBSSCREEN Neg 07/28/2017 Glucose Accord: Assessment & Plan: Pam Lake is a 27 y.o. woman at 32w0d admitted for monitoring with known vasa previa. Vessels continue to traverse across the cervix. Pam will stay hospitalized until 34 weeks, at which time she will deliver via scheduled section on 09/11 at 34w0d. 1. Vasa Previa: Ultrasound 08/11 confirmed persistent vasa previa -Delivery indications: Vaginal bleeding, progressive labor, non-reassuring status, maternal deterioration -Tocolysis: Not indicated -GBS status: Negative (will on 09/01/17 at 32 weeks) - status: NST once daily -Last growth 08/11 (q3wk next on 09/01) -Steroid status: complete 07/30, rescue complete as of 08/20 -Magnesium for neuro protection: complete on 08/15 -Consultations: neonatology and anesthesiology -Consents obtained: ?? 2. GDM A2: Currently on 24 units nightly and 10 units every morning of NPH insulin. Continue on moderate sliding scale for coverage. -regular gestational diet, continue monitoring of FSG postprandially and fasting. -FSBS fasting (9 AM) and post-prandial -Appropriate growth (64%) on last scan 08/11 ?? 3. contraception plan: -Desires 6 week Mirena ?? 4. Routine care: - vitamins daily -Elevated 1 hour and 3 hour, GDM A2 -Tdap given 08/03 -Declines flu vaccine ?? 5. Other issues: -Previous x2: Consider active type and screen day of delivery -Asthma: Albuterol nebulizer PRN wheezing, avoid Hemabate -Marijuana use: TEREZA upon admission positive for cannabinoids only -History of depression: Will need 2 week depression screen -Constipation: Colace scheduled, Miralax PRN Patient discussed on Multidisciplinary Rounds JHONATHAN ROBERTSON MD PGY3 08/28/2017 Associated attestation - Emanuel Barrett MD - 09/03/2017 8:21 PM EST I have seen and examined the patient, providing beck components as outlined below. I have reviewed the resident???s above note; my evaluation of the patient is below: ?? 32 0/7 weeks vasa previa. FM felt, no LOF, no bleeding or richard. ?? Afeb VSS Abdomen soft, NT Uterus NT Ext NT ?? I/R 32 0/7 weeks vasa previa status reassuring S/p BMZ S/p magnesium S/p NICU consult GDM well controlled CS for delivery if bleeding occurs ?? EMANUEL BARRETT MD * Kaylen Gabriel MD - 08/27/2017 7:11 PM EST quality assurance calibrator Progress Note Presented to room to discuss with Pam her request to leave the floor to get food at the cafeteria. I discussed that the risk of her having a bleed in the 20 minutes that she would be off the floor is very low, but that the outcome could be disastrous. The function of her admission is proximity to the OR in case need for STAT section. If she were to need to be transported to the OR for STAT section from the cafeteria (or anywhere else in the hospital), the time to delivery would be significantly greater. That time may be extended enough to cause significant anemia in the fetus requiring blood transfusion, hypoxic injury to organs including hypoxic brain injury or of fetus. Pam is struggling with her stay on the [facility]. She feels like she is in [facility] and her mental health is impacted. I reviewed that she is not imprisoned but that our recommendation is for her to stay on the unit for proximity to the OR. Knowing the risks, if she still wants to go to the cafeteria, we will not stop her, but the recommendation is for her to stay on the [facility]. KAYLEN GABRIEL MD PGY4 08/27/2017 Associated attestation - Farnaz Pino MD - 08/27/2017 8:29 PM EST Agree that patient is ultimately able to make her own decision but that we cannot recommend ambulation throughout the hospital. FARNAZ PINO MD * Yoly Cueva MD - 08/27/2017 3:43 PM EST PGY-4 Daily NST NST Fetus A 08/27/2017 HR (Beats/Min) 160 HR Variability moderate (amplitude range 6 to 25 bpm) HR Accelerations present;lasts at least 10 seconds (32 wks gest or less);greater than/equal to 10 bpm (32 wks gest or less) HR Decelerations none Contraction Frequency (Minutes) none Nonstress Test Interpretation - Overall Impression Reassuring for gestational age Comments - YOLY CUEVA MD PGY-4 08/27/2017 Associated attestation - Jordon Zurita MD - 08/27/2017 5:19 PM EST I personally reviewed the nonstress test and agree with the interpretation as documented above. Jordon Zurita MD 08/27/2017 5:19 PM * Jhonathan Robertson MD - 08/27/2017 6:03 AM EST Images from the original note were not included. Obstetrical Antepartum Progress Note Pam Lake is a 27 y.o. woman at 31w6d with an CHITRA of 10/25/2017, admitted for monitoring in the setting of known vasa previa. This is hospital day #31. Active Problems: Patient Active Problem List Diagnosis ??? Asthma ??? Vasa previa Overview Note: 0.9cm lateral to internal os ??? Low-lying placenta ??? Insulin controlled gestational diabetes mellitus (GDM): diagnosed at 7 weeks gestation ??? Previous section x 2 24 Hour Events -- none Subjective: Pam states she had a good night. Slept well. No bleeding, loss of fluid, cramping, richard, or decreased movement. No complaints today. Review of Systems Obstetric Review of Systems Total Weight Gain this 2.268 kg (5 lb) Movement: normal Contractions: none Leaking: None Bleeding; none now Preeclampsia signs and symptoms: None Physical Exam Last value Range last 8 hrs Temperature Temp: 36.9 ??C (98.4 ??F) Temp: -- Heart Rate Heart Rate: 94 Heart Rate: -- Blood Pressure BP: 130/71 BP: -- Respiratory Rate Resp: 20 Resp: -- SpO2 SpO2: 100 % SpO2: -- Gen: appears well, NAD CV: RRR, no murmurs/rubs/gallops Pulm: CTAB, no wheezes/crackles Uterus: non-tender Cervix: Deferred Ext: Warm, well perfused, non-tender, no edema Heart Rate Interpretation: Reactive tracing yesterday, please see separate documentation for today. Most Recent Ultrasound Date: 08/11/17 GA at US: 29w2d EFW: 1349 grams, 64%ile Growth: Normal for gestational age Amniotic fluid volume: SHERI 11.44 cm, MVP 4.69 cm Placenta: Posterior low lying placenta, vasa previa remains Presentation: Cephalic GBS Lab Results Component Value Date GBSSCREEN Neg 07/28/2017 Glucose Accord: Assessment & Plan: Pam Lake is a 27 y.o. woman at 31w6d admitted for monitoring with known vasa previa. Vessels continue to traverse across the cervix. Pam will stay hospitalized until 34 weeks, at which time she will deliver via scheduled section on 09/11 at 34w0d. 1. Vasa Previa: Ultrasound 08/11 confirmed persistent vasa previa -Delivery indications: Vaginal bleeding, progressive labor, non-reassuring status, maternal deterioration -Tocolysis: Not indicated -GBS status: Negative (will on 09/01/17 at 32 weeks) - status: NST once daily -Last growth 08/11 (q3wk next on 09/01) -Steroid status: complete 07/30, rescue complete as of 08/20 -Magnesium for neuro protection: complete on 08/15 -Consultations: neonatology and anesthesiology -Consents obtained: ?? 2. GDM A2: Currently on 24 units nightly and 10 units every morning of NPH insulin. Continue on moderate sliding scale for coverage. -regular gestational diet, continue monitoring of FSG postprandially and fasting. -FSBS fasting (9 AM) and post-prandial -Appropriate growth (64%) on last scan 08/11 ?? 3. contraception plan: -Desires 6 week Mirena ?? 4. Routine care: - vitamins daily -Elevated 1 hour and 3 hour, GDM A2 -Tdap given 08/03 -Declines flu vaccine ?? 5. Other issues: -Previous x2: Consider active type and screen day of delivery -Asthma: Albuterol nebulizer PRN wheezing, avoid Hemabate -Marijuana use: TEREZA upon admission positive for cannabinoids only -History of depression: Will need 2 week depression screen -Constipation: Colace scheduled, Miralax PRN Patient discussed on Multidisciplinary Rounds JHONATHAN ROBERTSON MD PGY3 08/27/2017 Associated attestation - Emanuel Barrett MD - 09/03/2017 8:21 PM EST I have seen and examined the patient, providing beck components as outlined below. I have reviewed the resident???s above note; my evaluation of the patient is below: ?? 31 6/7 weeks vasa previa. FM felt, no LOF, no bleeding or richard. ?? Afeb VSS Abdomen soft, NT Uterus NT Ext NT ?? I/R 31 6/7 weeks vasa previa status reassuring S/p BMZ S/p magnesium S/p NICU consult GDM well controlled CS for delivery if bleeding occurs ?? EMANUEL BARRETT MD * Sasha Bacon RN - 08/26/2017 4:30 PM EST Urine POC completed and documented, pt states she does not believe the results and wants lab work done. Pt requesting to talk to MD. I relayed to DR. Cueva that Pt would like to speak with an MD. Dr. Cueva stated that she will go and talk to pt. * Yoly Cueva MD - 08/26/2017 3:51 PM EST PGY-4 Daily NST NST Fetus A 08/26/2017 HR (Beats/Min) 145 HR Variability moderate (amplitude range 6 to 25 bpm) HR Accelerations present;lasts at least 10 seconds (32 wks gest or less);greater than/equal to 10 bpm (32 wks gest or less) HR Decelerations none Contraction Frequency (Minutes) none Nonstress Test Interpretation Reactive <32 week: two 10 bpm accelerations lasting 10 seconds Overall Impression Reassuring for gestational age Comments - YOLY CUEVA MD PGY-4 08/26/2017 Associated attestation - Yeny Waterman MD - 08/26/2017 4:43 PM EST I personally reviewed and interpreted this NST. Yeny Waterman MD * Yoly Cueva MD - 08/26/2017 9:20 AM EST Images from the original note were not included. Obstetrical Antepartum Progress Note Pam Lake is a 27 y.o. woman at 31w5d with an CHITRA of 10/25/2017, admitted for monitoring in the setting of known vasa previa. This is hospital day #30. Active Problems: Patient Active Problem List Diagnosis ??? Asthma ??? Vasa previa Overview Note: 0.9cm lateral to internal os ??? Low-lying placenta ??? Insulin controlled gestational diabetes mellitus (GDM): diagnosed at 7 weeks gestation ??? Previous section x 2 24 Hour Events -- none Subjective: Pam reports she's feeling well this morning and slept well overnight. No bleeding, loss of fluid, cramping, richard, or decreased movement. No complaints today. Review of Systems Obstetric Review of Systems Total Weight Gain this 2.268 kg (5 lb) Movement: normal Contractions: none Leaking: None Bleeding; none now Preeclampsia signs and symptoms: None Physical Exam Last value Range last 8 hrs Temperature Temp: 36.9 ??C (98.4 ??F) Temp: -- Heart Rate Heart Rate: 92 Heart Rate: -- Blood Pressure BP: 111/63 BP: -- Respiratory Rate Resp: 20 Resp: -- SpO2 SpO2: 98 % SpO2: -- Gen: appears well, NAD CV: RRR, no murmurs/rubs/gallops Pulm: CTAB, no wheezes/crackles Uterus: non-tender Cervix: Deferred Ext: Warm, well perfused, non-tender, no edema Heart Rate Interpretation: Reactive tracing yesterday, please see separate documentation for today. Most Recent Ultrasound Date: 08/11/17 GA at US: 29w2d EFW: 1349 grams, 64%ile Growth: Normal for gestational age Amniotic fluid volume: SHERI 11.44 cm, MVP 4.69 cm Placenta: Posterior low lying placenta, vasa previa remains Presentation: Cephalic GBS Lab Results Component Value Date GBSSCREEN Neg 07/28/2017 Glucose Accord: Assessment & Plan: Pam Lake is a 27 y.o. woman at 31w5d admitted for monitoring with known vasa previa. Vessels continue to traverse across the cervix. Pam will stay hospitalized until 34 weeks, at which time she will deliver via scheduled section on 09/11 at 34w0d. 1. Vasa Previa: Ultrasound 08/11 confirmed persistent vasa previa -Delivery indications: Vaginal bleeding, progressive labor, non-reassuring status, maternal deterioration -Tocolysis: Not indicated -GBS status: Negative (will on 09/01/17 at 32 weeks) - status: NST once daily -Last growth 08/11 (q3wk next on 09/01) -Steroid status: complete 07/30, rescue complete as of 08/20 -Magnesium for neuro protection: complete on 08/15 -Consultations: neonatology and anesthesiology -Consents obtained: ?? 2. GDM A2: Currently on 24 units nightly and 6 units every morning of NPH insulin. Continue on moderate sliding scale for coverage. - Increase to NPH 10 U every morning at noon -regular gestational diet, continue monitoring of FSG postprandially and fasting. -FSBS fasting (9 AM) and post-prandial -Appropriate growth (64%) on last scan 08/11 ?? 3. contraception plan: -Desires 6 week Mirena ?? 4. Routine care: - vitamins daily -Elevated 1 hour and 3 hour, GDM A2 -Tdap given 08/03 -Declines flu vaccine ?? 5. Other issues: -Previous x2: Consider active type and screen day of delivery -Asthma: Albuterol nebulizer PRN wheezing, avoid Hemabate -Marijuana use: TEREZA upon admission positive for cannabinoids only -History of depression: Will need 2 week depression screen -Constipation: Colace scheduled, Miralax PRN Patient discussed on Multidisciplinary Rounds YOLY CUEVA MD PGY4 08/26/2017 Associated attestation - Crow Vasquez MD - 08/26/2017 2:42 PM EST Maternal Medicine Attending Note Patient: Pam Lake I performed a history and physical exam of the patient and discussed her management with Dr. Cueva. I reviewed Dr. Cueva's note and agree with the documented findings and plan of care. My evaluation is as below: 31w5d weeks EGA; Patient admitted with complicated by vasa previa. LOS: 29 days Subjective: No complaints. Good movement. No contractions. Last value Range last 8 hrs Temperature Temp: 36.9 ??C (98.4 ??F) Temp: [36.9 ??C (98.4 ??F)] Heart Rate Heart Rate: 90 Heart Rate: [90] Blood Pressure BP: 131/78 BP: (131)/(78) Respiratory Rate Resp: 20 Resp: -- SpO2 SpO2: 98 % SpO2: -- *Abdomen: Soft, non-tender, not distended *Uterus: Soft, Non-tender *Extremities: Non-tender; no edema *NST: See separate report. Impression: vasa previa at 31w5d weeks EGA. Plan: Deliver for any bleeding. Continued in patient management for proximity to OR and NICU due to risk of hemorrhage. Jane Vasquez MD Maternal- Medicine * Yoly Cueva MD - 08/25/2017 5:05 PM EST PGY-4 Daily NST NST Fetus A 08/25/2017 HR (Beats/Min) 150 HR Variability moderate (amplitude range 6 to 25 bpm) HR Accelerations present;lasting at least 15 seconds;greater than/equal to 15 bpm HR Decelerations absent Contraction Frequency (Minutes) none Nonstress Test Interpretation Reactive <32 week: two 10 bpm accelerations lasting 10 seconds Overall Impression Reassuring for gestational age Comments - YOLY CUEVA MD PGY-4 08/25/2017 Associated attestation - Jordon Zurita MD - 08/25/2017 5:16 PM EST I personally reviewed the nonstress test and agree with the interpretation as documented above. Jordon Zurita MD 08/25/2017 5:16 PM * Stephanie Moseley MSW - 08/25/2017 2:40 PM EST Social Work Note Office of Care Management Follow Up: [facility] [employer] PSYCHOLOG[facility] met with pt at bedside to check in on her. Pt reports she is doing well and is excited that sheis getting closer to delivery date. She seems in higher spirits today than last week and reports she had somewhat of a relaxing New Year's Rosa. Plan: Deliver weekly gas card to pt and check in on her as needed. DIEGO Ruiz Pager: [phone] * Yoly Cueva MD - 08/25/2017 1:50 PM EST Images from the original note were not included. Obstetrical Antepartum Progress Note Pam Lake is a 27 y.o. woman at 31w4d with an CHITRA of 10/25/2017, admitted for monitoring in the setting of known vasa previa. This is hospital day #29. Active Problems: Patient Active Problem List Diagnosis ??? Asthma ??? Vasa previa Overview Note: 0.9cm lateral to internal os ??? Low-lying placenta ??? Insulin controlled gestational diabetes mellitus (GDM): diagnosed at 7 weeks gestation ??? Previous section x 2 24 Hour Events -- diet changed to regular gestational diet Subjective: Pam reports she's feeling well this morning and slept well overnight. No bleeding, loss of fluid, cramping, richard, or decreased movement. No complaints today. Review of Systems Obstetric Review of Systems Total Weight Gain this 2.268 kg (5 lb) Movement: normal Contractions: none Leaking: None Bleeding; none now Preeclampsia signs and symptoms: None Physical Exam Last value Range last 8 hrs Temperature Temp: 37 ??C (98.6 ??F) Temp: [37 ??C (98.6 ??F)] Heart Rate Heart Rate: 83 Heart Rate: [83] Blood Pressure BP: 117/51 BP: (117)/(51) Respiratory Rate Resp: 20 Resp: [20] SpO2 SpO2: 99 % SpO2: [99 %] Gen: appears well, NAD CV: RRR, no murmurs/rubs/gallops Pulm: CTAB, no wheezes/crackles Uterus: non-tender Cervix: Deferred Ext: Warm, well perfused, non-tender, no edema Heart Rate Interpretation: Reactive tracing yesterday, please see separate documentation for today. Most Recent Ultrasound Date: 08/11/17 GA at US: 29w2d EFW: 1349 grams, 64%ile Growth: Normal for gestational age Amniotic fluid volume: SHERI 11.44 cm, MVP 4.69 cm Placenta: Posterior low lying placenta, vasa previa remains Presentation: Cephalic GBS Lab Results Component Value Date GBSSCREEN Neg 07/28/2017 Glucose Accord: Assessment & Plan: Pam Lake is a 27 y.o. woman at 31w4d admitted for monitoring with known vasa previa. Vessels continue to traverse across the cervix. Pam will stay hospitalized until 34 weeks, at which time she will deliver via scheduled section on 09/11 at 34w0d. 1. Vasa Previa: Ultrasound 08/11 confirmed persistent vasa previa -Delivery indications: Vaginal bleeding, progressive labor, non-reassuring status, maternal deterioration -Tocolysis: Not indicated -GBS status: Negative (will on 09/01/17 at 32 weeks) - status: NST once daily -Last growth 08/11 (q3wk next on 09/01) -Steroid status: complete 07/30, rescue complete as of 08/20 -Magnesium for neuro protection: complete on 08/15 -Consultations: neonatology and anesthesiology -Consents obtained: ?? 2. GDM A2: Currently on 24 units nightly and 6 units every morning of NPH insulin. Continue on moderate sliding scale for coverage. -regular gestational diet, continue monitoring of FSG postprandially and fasting. -FSBS fasting (9 AM) and post-prandial -Appropriate growth (64%) on last scan 08/11 ?? 3. contraception plan: -Desires 6 week Mirena ?? 4. Routine care: - vitamins daily -Elevated 1 hour and 3 hour, GDM A2 -Tdap given 08/03 -Declines flu vaccine ?? 5. Other issues: -Previous x2: Consider active type and screen day of delivery -Asthma: Albuterol nebulizer PRN wheezing, avoid Hemabate -Marijuana use: TEREZA upon admission positive for cannabinoids only -History of depression: Will need 2 week depression screen -Constipation: Colace scheduled, Miralax PRN Patient discussed on Multidisciplinary Rounds YOLY CUEVA MD PGY4 08/25/2017 Associated attestation - Crow Vasquez MD - 08/25/2017 5:10 PM EST Maternal Medicine Attending Note Patient: Pam Lake I performed a history and physical exam of the patient and discussed her management with Dr. Cueva. I reviewed Dr. Cueva's note and agree with the documented findings and plan of care. My evaluation is as below: 31w4d weeks EGA; Patient admitted with complicated by vasa previa. LOS: 28 days Subjective: No complaints. Good movement. No contractions. Last value Range last 8 hrs Temperature Temp: 37 ??C (98.6 ??F) Temp: [37 ??C (98.6 ??F)] Heart Rate Heart Rate: 83 Heart Rate: [83] Blood Pressure BP: 117/51 BP: (117)/(51) Respiratory Rate Resp: 20 Resp: [20] SpO2 SpO2: 99 % SpO2: [99 %] *Abdomen: Soft, non-tender, not distended *Uterus: Soft, Non-tender *Extremities: Non-tender; no edema *NST: See separate report. Impression: Vasa previa at 31w4d weeks EGA. Plan: Deliver for any bleeding. Continued in patient management for proximity to OR and NICU due to risk of hemorrhage. Jane Vasquez MD Maternal- Medicine * Jacqueline Paez - 08/25/2017 1:05 PM EST Therapeutic massage given by NATE Alford. Pam appreciative, stating That felt so good!. Prior to session pain rated 3/10; after session 0/10. [facility] team will try and see 1-2x/week. * Ximena Yan RN - 08/25/2017 9:27 AM EST 0925-This RN entered room to check pt BS. Pt sleeping. When asked to check BS, pt replied, I just want to sleep. Let me sleep. Plan made with pt is for her to call out when she wakes up. MD team aware. * Vanessa Reis MD - 08/24/2017 2:59 PM EST Antepartum NST Note NST Fetus A 08/24/2017 HR (Beats/Min) 150 HR Variability moderate (amplitude range 6 to 25 bpm) HR Accelerations present;greater than/equal to 10 bpm (32 wks gest or less);lasts at least 10seconds (32 wks gest or less) HR Decelerations variable Contraction Frequency (Minutes) None Nonstress Test Interpretation Reactive <32 week: two 10 bpm accelerations lasting 10 seconds Overall Impression Reassuring for gestational age Comments Periodic brief variables, overall reassuring for gestational age. Interpretation: Reactive, overall reassuring for gestational age. VANESSA REIS MD PGY-3 08/24/2017 Associated attestation - Ayala Issa MD - 08/24/2017 4:57 PM EST I have reviewed the NST and agree with the interpretation. * Crow Vasquez MD - 08/24/2017 10:07 AM EST Maternal Medicine Attending Note Patient: aPm Lake I performed a history and physical exam of the patient and discussed her management with Dr. Reis. I reviewed Dr. Reis's note and agree with the documented findings and plan of care. My evaluation isas below: 31w3d weeks EGA; Patient admitted with complicated by vasa previa. LOS: 27 days Subjective: No complaints. Good movement. No contractions. Last value Range last 8 hrs Temperature Temp: 36.8 ??C (98.2 ??F) Temp: -- Heart Rate Heart Rate: 88 Heart Rate: -- Blood Pressure BP: 113/78 BP: -- Respiratory Rate Resp: 18 Resp: -- SpO2 SpO2: 100 % SpO2: -- *Abdomen: Soft, non-tender, not distended *Uterus: Soft, Non-tender *Extremities: Non-tender; no edema *NST: See separate report. Impression: Vasa previa at 31w3d weeks EGA. Stable at this time. Plan: Continued in patient management for proximity to OR and NICU due to risk of hemorrhage. Jnae Vasquez MD Maternal- Medicine * Vanessa Reis MD - 08/24/2017 10:00 AM EST Images from the original note were not included. Obstetrical Antepartum Progress Note Pam Lake is a 27 y.o. woman at 31w3d with an CHITRA of 10/25/2017, admitted for monitoring in the setting of known vasa previa. This is hospital day #28. Active Problems: Patient Active Problem List Diagnosis ??? Asthma ??? Vasa previa Overview Note: 0.9cm lateral to internal os ??? Low-lying placenta ??? Insulin controlled gestational diabetes mellitus (GDM): diagnosed at 7 weeks gestation ??? Previous section x 2 24 Hour Events --very upset overnight about length of stay and restrictive diet, ate cheese quesadilla outside of carb counting diet Subjective: Pam reports she's feeling well this morning and slept well overnight. No bleeding, loss of fluid, cramping, richard, or decreased movement. No complaints today. Review of Systems Obstetric Review of Systems Total Weight Gain this 2.268 kg (5 lb) Movement: normal Contractions: none Leaking: None Bleeding; none now Preeclampsia signs and symptoms: None Physical Exam Last value Range last 8 hrs Temperature Temp: 36.8 ??C (98.2 ??F) Temp: [36.8 ??C (98.2 ??F)] Heart Rate Heart Rate: 88 Heart Rate: -- Blood Pressure BP: 113/78 BP: (113)/(78) Respiratory Rate Resp: 18 Resp: [18] SpO2 SpO2: 100 % SpO2: [100 %] Gen: appears well, NAD CV: RRR, no murmurs/rubs/gallops Pulm: CTAB, no wheezes/crackles Uterus: non-tender Cervix: Deferred Ext: Warm, well perfused, non-tender, no edema Heart Rate Interpretation: Reactive tracing yesterday, please see separate documentation for today. Most Recent Ultrasound Date: 08/11/17 GA at US: 29w2d EFW: 1349 grams, 64%ile Growth: Normal for gestational age Amniotic fluid volume: SHERI 11.44 cm, MVP 4.69 cm Placenta: Posterior low lying placenta, vasa previa remains Presentation: Cephalic GBS Lab Results Component Value Date GBSSCREEN Neg 07/28/2017 Glucose Accord: Assessment & Plan: Pam Lake is a 27 y.o. woman at 31w3d admitted for monitoring with known vasa previa. Vessels continue to traverse across the cervix. Pam will stay hospitalized until 34 weeks, at which time she will deliver via scheduled section on 09/11 at 34w0d. 1. Vasa Previa: Ultrasound 08/11 confirmed persistent vasa previa -Delivery indications: Vaginal bleeding, progressive labor, non-reassuring status, maternal deterioration -Tocolysis: Not indicated -GBS status: Negative (will on 09/01/17 at 32 weeks) - status: NST once daily -Last growth 08/11 (q3wk next on 09/01) -Steroid status: complete 07/30, rescue complete as of 08/20 -Magnesium for neuro protection: complete on 08/15 -Consultations: neonatology and anesthesiology -Consents obtained: ?? 2. GDM A2: Currently on 24 units nightly and 6 units every morning of NPH insulin. Continue on moderate sliding scale for coverage. -Will allow liberalization of diet, continue monitoring of FSG postprandially and fasting. -FSBS fasting (9 AM) and post-prandial -Appropriate growth (64%) on last scan 08/11 ?? 3. contraception plan: -Desires 6 week Mirena ?? 4. Routine care: - vitamins daily -Elevated 1 hour and 3 hour, GDM A2 -Tdap given 08/03 -Declines flu vaccine ?? 5. Other issues: -Previous x2: Consider active type and screen day of delivery -Asthma: Albuterol nebulizer PRN wheezing, avoid Hemabate -Marijuana use: TEREZA upon admission positive for cannabinoids only -History of depression: Will need 2 week depression screen -Constipation: Colace scheduled, Miralax PRN Patient discussed on Multidisciplinary Rounds Note written in conjunction with: KAYLEN GABRIEL MD PGY4 08/24/2017 VANESSA REIS MD PGY-3 08/24/2017 * Desean Soto - 08/23/2017 12:22 PM EST PGY-4 NST Review NST Fetus A 08/23/2017 HR (Beats/Min) 150 HR Variability moderate (amplitude range 6 to 25 bpm) HR Accelerations present HR Decelerations intermittent Contraction Frequency (Minutes) None Nonstress Test Interpretation Reactive <32 week: two 10 bpm accelerations lasting 10 seconds Overall Impression Reassuring for gestational age Comments - DESEAN SOTO MD PGY4 08/23/2017 Associated attestation - Jordon Zurita MD - 08/25/2017 7:44 AM EST I personally reviewed the nonstress test and agree with the interpretation as documented above. Jordon Zurita MD 08/25/2017 7:44 AM * Crow Vasquez MD - 08/23/2017 8:02 AM EST Maternal Medicine Attending Note Patient: Pam Lake I performed a history and physical exam of the patient and discussed her management with Dr. Soto. I reviewed Dr. Soto's note and agree with the documented findings and plan of care. My evaluation is as below: 31w2d weeks EGA; Patient admitted with complicated by vasa previa. LOS: 26 days Subjective: No complaints. Good movement. No contractions. No bleeding Last value Range last 8 hrs Temperature Temp: 36.8 ??C (98.2 ??F) Temp: -- Heart Rate Heart Rate: (!) 101 Heart Rate: -- Blood Pressure BP: 121/65 BP: -- Respiratory Rate Resp: 20 Resp: -- SpO2 SpO2: 100 % SpO2: -- *Abdomen: Soft, non-tender, not distended *Uterus: Soft, Non-tender *Extremities: Non-tender; no edema *NST: See separate report. Impression: Vasa previa at 31w2d weeks EGA. Plan: Continued in patient management for proximity to OR and NICU due to risk of hemorrhage. Jane Vasquez MD Maternal- Medicine * Desean Soto - 08/23/2017 6:08 AM EST Images from the original note were not included. Obstetrical Antepartum Progress Note Pam Lake is a 27 y.o. woman at 31w2d with an CHITRA of 10/25/2017, admitted for monitoring in the setting of known vasa previa. This is hospital day #27. Active Problems: Patient Active Problem List Diagnosis ??? Asthma ??? Vasa previa Overview Note: 0.9cm lateral to internal os ??? Low-lying placenta ??? Insulin controlled gestational diabetes mellitus (GDM): diagnosed at 7 weeks gestation ??? Previous section x 2 24 Hour Events --reactive NST Subjective: Pam reports she's feeling well this morning and slept well overnight. No bleeding, loss of fluid, cramping, richard, or decreased movement. No complaints today. Review of Systems Obstetric Review of Systems Total Weight Gain this 2.268 kg (5 lb) Movement: normal Contractions: none Leaking: None Bleeding; none now Preeclampsia signs and symptoms: None Physical Exam Last value Range last 8 hrs Temperature Temp: 36.8 ??C (98.2 ??F) Temp: -- Heart Rate Heart Rate: (!) 101 Heart Rate: -- Blood Pressure BP: 121/65 BP: -- Respiratory Rate Resp: 20 Resp: -- SpO2 SpO2: 100 % SpO2: -- Gen: appears well, NAD, sleeping when we entered room CV: RRR, no murmurs/rubs/gallops Pulm: CTAB, no wheezes/crackles Uterus: non-tender Cervix: Deferred Ext: Warm, well perfused, non-tender, no edema Heart Rate Interpretation: Reactive tracing yesterday, please see separate documentation for today. Most Recent Ultrasound Date: 08/11/17 GA at US: 29w2d EFW: 1349 grams, 64%ile Growth: Normal for gestational age Amniotic fluid volume: SHERI 11.44 cm, MVP 4.69 cm Placenta: Posterior low lying placenta, vasa previa remains Presentation: Cephalic GBS Lab Results Component Value Date GBSSCREEN Neg 07/28/2017 Glucose Accord: Assessment & Plan: Pam Lake is a 27 y.o. woman at 31w2d admitted for monitoring with known vasa previa. Vessels continue to traverse across the cervix. Pam will stay hospitalized until 34 weeks, at which time she will deliver via scheduled section, date requested for 09/11 at 34w0d. 1. Vasa Previa: Ultrasound 08/11 confirmed persistent vasa previa -Delivery indications: Progressive labor, non-reassuring status, maternal deterioration -Tocolysis: Not indicated -GBS status: Negative (will on 09/01/17 at 32 weeks) - status: NST once daily, last growth 08/11 (q3wk next on 09/01) -Steroid status: complete 07/30, rescue complete as of 08/20 -Magnesium for neuro protection: complete on 08/15 -Consultations: neonatology and anesthesiology -Consents obtained: ?? 2. GDM A2: Currently on 24 units nightly and 6 units every morning of NPH insulin. Elevated glucosewith betamethasone dose 2 days ago. Continue on moderate sliding scale for coverage. -FSBS fasting (9 AM) and post-prandial ?? 3. contraception plan: -Desires 6 week Mirena ?? 4. Routine care: - vitamins daily -Elevated 1 hour and 3 hour, GDM A2 -Tdap given 08/03 -Declines flu vaccine ?? 5. Other issues: -Previous x2: Consider active type and screen day of delivery -Asthma: Albuterol nebulizer PRN wheezing, avoid Hemabate -Marijuana use: TEREZA upon admission positive for cannabinoids only -History of depression: Will need 2 week depression screen -Constipation: Colace scheduled, Miralax PRN Patient discussed on Multidisciplinary Rounds Note written in conjunction with Emerita Rosario, PGY3. DESEAN SOTO MD PGY4 08/23/2017 Chely Soares MD - 08/22/2017 3:23 PM EST Antepartum NST Note NST Fetus A 08/22/2017 HR (Beats/Min) 155 HR Variability moderate (amplitude range 6 to 25 bpm) HR Accelerations lasts at least 10 seconds (32 wks gest or less);greater than/equal to 10 bpm(32 wks gest or less);present HR Decelerations variable Contraction Frequency (Minutes) - Nonstress Test Interpretation Reactive <32 week: two 10 bpm accelerations lasting 10 seconds Overall Impression Reassuring for gestational age Comments Periodic brief variables, overall reassuring for gestational age. Interpretation: Reactive, overall reassuring for gestational age. VANESSA REIS MD PGY-3 08/22/2017 I personally reviewed and interpreted this NST. Chely Sin MD * Patricia Rosarioica L - 08/22/2017 12:14 PM EST Images from the original note were not included. Obstetrical Antepartum Progress Note Pam Lake is a 27 y.o. woman at 31w1d with an CHITRA of 10/25/2017, admitted for monitoring in the setting of known vasa previa. This is hospital day #26. Active Problems: Patient Active Problem List Diagnosis ??? Asthma ??? Vasa previa Overview Note: 0.9cm lateral to internal os ??? Low-lying placenta ??? Insulin controlled gestational diabetes mellitus (GDM): diagnosed at 7 weeks gestation ??? Previous section x 2 24 Hour Events --reactive NST Subjective: Awoken from sleep. Pam reports she's feeling well this morning and slept well overnight. No bleeding, loss of fluid, cramping, richard, or decreased movement. Reports she wears her SCDs during the day while awake. Review of Systems Obstetric Review of Systems Total Weight Gain this 2.268 kg (5 lb) Movement: normal Contractions: none Leaking: None Bleeding; none now Preeclampsia signs and symptoms: None Physical Exam Last value Range last 8 hrs Temperature Temp: 37.1 ??C (98.8 ??F) Temp: -- Heart Rate Heart Rate: 94 Heart Rate: -- Blood Pressure BP: 120/65 BP: -- Respiratory Rate Resp: 18 Resp: -- SpO2 SpO2: 100 % SpO2: -- Gen: appears well, NAD, sleeping when we entered room CV: RRR, no murmurs/rubs/gallops Pulm: CTAB, no wheezes/crackles Uterus: non-tender Cervix: Deferred Ext: Warm, well perfused, non-tender, no edema Heart Rate Interpretation: Reactive tracing yesterday, please see separate documentation for today. Most Recent Ultrasound Date: 08/11/17 GA at US: 29w2d EFW: 1349 grams, 64%ile Growth: Normal for gestational age Amniotic fluid volume: SHERI 11.44 cm, MVP 4.69 cm Placenta: Posterior low lying placenta, vasa previa remains Presentation: Cephalic GBS Lab Results Component Value Date GBSSCREEN Neg 07/28/2017 Glucose Accord: Assessment & Plan: Pam Lake is a 27 y.o. woman at 31w1d admitted for monitoring with known vasa previa. Vessels continue to traverse across the cervix. Pam will stay hospitalized until 34 weeks, at which time she will deliver via scheduled section, date requested for 09/11 at 34w0d. 1. Vasa Previa: Ultrasound 08/11 confirmed persistent vasa previa -Delivery indications: Progressive labor, non-reassuring status, maternal deterioration -Tocolysis: Not indicated -GBS status: Negative (will on 09/01/17 at 32 weeks) - status: NST once daily, last growth 08/11 (q3wk next on 09/01) -Steroid status: complete 07/30, rescue complete as of 08/20 -Magnesium for neuro protection: complete on 08/15 -Consultations: neonatology and anesthesiology -Consents obtained: ?? 2. GDM A2: Currently on 24 units nightly and 6 units every morning of NPH insulin. Elevated glucosewith betamethasone dose 2 days ago. Continue on moderate sliding scale for coverage. Glucose much better controlled yesterday into today as steroid effect wears off. -FSBS fasting (9 AM) and post-prandial ?? 3. contraception plan: -Desires 6 week Mirena ?? 4. Routine care: - vitamins daily -Elevated 1 hour and 3 hour, GDM A2 -Tdap given 08/03 -Declines flu vaccine ?? 5. Other issues: -Previous x2: Consider active type and screen day of delivery -Asthma: Albuterol nebulizer PRN wheezing, avoid Hemabate -Marijuana use: TEREZA upon admission positive for cannabinoids only -History of depression: Will need 2 week depression screen -Constipation: Colace scheduled, Miralax PRN Patient discussed on Multidisciplinary Rounds EMERITA ROSARIO MD PGY3 08/22/2017 * Crow Vasquez MD - 08/22/2017 7:45 AM EST Maternal Medicine Attending Note Patient: Pam Lopez Jaya I performed a history and physical exam of the patient and discussed her management with Dr. Rosario.I reviewed Dr. Rosario's note and agree with the documented findings and plan of care. My evaluation is as below: 31w1d weeks EGA; Patient admitted with complicated by vasa previa. LOS: 25 days Subjective: No complaints. Good movement. No contractions. Last value Range last 8 hrs Temperature Temp: 37.1 ??C (98.8 ??F) Temp: -- Heart Rate Heart Rate: 94 Heart Rate: -- Blood Pressure BP: 120/65 BP: -- Respiratory Rate Resp: 18 Resp: -- SpO2 SpO2: 100 % SpO2: -- *Abdomen: Soft, non-tender, not distended *Uterus: Soft, Non-tender *Extremities: Non-tender; no edema *NST: See separate report. Impression: Stable vasa previa at 31w1d weeks EGA. Plan: Continued in patient management for proximity to OR and NICU due to risk of hemorrhage. Jane Vasquez MD Maternal- Medicine * Wang Barbour - 08/21/2017 3:06 PM EST Nutrition Services - Follow-up Note Pam Lake : 1990 AGE: 27 y.o. Patient Active Problem List Diagnosis Date Noted ??? Hospital-Asthma 07/28/2017 ??? Hospital-Vasa previa 07/09/2017 ??? Low-lying placenta 07/09/2017 ??? Hospital-Insulin controlled gestational diabetes mellitus (GDM): diagnosed at 7 weeks aowfbcfet00/06/2017 ??? Hospital-Previous section x 2 05/29/2017 Reason for Nutrition Intervention: Follow-up Diet Order: Gestational, CHO2 Appetite: Ok-per pt Food allergies: NKFA Chewing/Swallowing difficulty: none noted Ht Readings from Last 3 Encounters: 08/21/17 149.9 cm (4' 11.02) 06/04/17 (!) 149.9 cm (4' 11) Wt Readings from Last 3 Encounters: 08/21/17 103.6 kg (228 lb 6.3 oz) 07/28/17 (!) 104.8 kg (231 lb) 07/09/17 (!) 104.1 kg (229 lb 9.6 oz) Body mass index is 46.11 kg/(m^2). Vitamins/Minerals: ?noted. Tums noted Assessment: Patient denies further need for nutrition education. Pt seen for nutrition follow up. She reported a good appetite without difficulty chewing or swallowing. Nursing documentation notes 100% PO intake. Investor Relations Associate offered to have snacks sent between meals but pt declined stating she did not to waste them as she does not always eats them. Pt made joke with proposal lead writer stating she wants unhealthyfoods between meals for snacks but explained she knows she has to be good. She is tolerating hercurrent diet without nausea or vomiting. Pt denies constipation and diarrhea. Pt orders her meals daily. Pt had no further questions at this time. Encouraged pt to contact Food and Nutrition serviceswith any questions that may arise. Nutrition Plan: Continue current diet. Encourage good po intake. Monitor weight. Support and encouragement provided. Nutrition services to follow weekly thru hospital course unless consulted in the interim. RAGHAVENDRA Koehler LD * Chely Sin MD - 08/21/2017 2:48 PM EST PGY4 NST Review NST Fetus A 08/21/2017 HR (Beats/Min) 150 HR Variability moderate (amplitude range 6 to 25 bpm) HR Accelerations present HR Decelerations none Contraction Frequency (Minutes) None Nonstress Test Interpretation Reactive <32 week: two 10 bpm accelerations lasting 10 seconds Overall Impression Reassuring for gestational age Comments - DESEAN SOTO MD PGY4 08/21/2017 I personally reviewed and interpreted this NST. Chely Sin MD * Emerita Rosario - 08/21/2017 7:01 AM EST Images from the original note were not included. Obstetrical Antepartum Progress Note Pam Lake is a 27 y.o. woman at 31w0d with an CHITRA of 10/25/2017, admitted for monitoring in the setting of known vasa previa. This is hospital day #25. Active Problems: Patient Active Problem List Diagnosis ??? Asthma ??? Vasa previa Overview Note: 0.9cm lateral to internal os ??? Low-lying placenta ??? Insulin controlled gestational diabetes mellitus (GDM): diagnosed at 7 weeks gestation ??? Previous section x 2 24 Hour Events --reactive NST Subjective: Awoken from sleep. Pam reports she's feeling well this morning and slept well overnight. No bleeding, loss of fluid, cramping, irchard, or decreased movement. Review of Systems Obstetric Review of Systems Total Weight Gain this 2.268 kg (5 lb) Movement: normal Contractions: none Leaking: None Bleeding; none now Preeclampsia signs and symptoms: None Physical Exam Last value Range last 8 hrs Temperature Temp: 36.7 ??C (98.1 ??F) Temp: -- Heart Rate Heart Rate: 82 Heart Rate: -- Blood Pressure BP: 123/70 BP: -- Respiratory Rate Resp: 18 Resp: -- SpO2 SpO2: 100 % SpO2: -- Gen: appears well, NAD, sleeping when we entered room CV: RRR, no murmurs/rubs/gallops Pulm: CTAB, no wheezes/crackles Uterus: non-tender Cervix: Deferred Ext: Warm, well perfused, non-tender, no edema Heart Rate Interpretation: Reactive tracing yesterday, please see separate documentation for today. Most Recent Ultrasound Date: 08/11/17 GA at US: 29w2d EFW: 1349 grams, 64%ile Growth: Normal for gestational age Amniotic fluid volume: SHERI 11.44 cm, MVP 4.69 cm Placenta: Posterior low lying placenta, vasa previa remains Presentation: Cephalic GBS Lab Results Component Value Date GBSSCREEN Neg 07/28/2017 Glucose Accord: Assessment & Plan: Pam Lake is a 27 y.o. woman at 31w0d admitted for monitoring with known vasa previa. Vessels continue to traverse across the cervix. Pam will stay hospitalized until 34 weeks, at which time she will deliver via scheduled section, date requested for 09/11 at 34w0d. 1. Vasa Previa: Ultrasound 08/11 confirmed persistent vasa previa -Delivery indications: Progressive labor, non-reassuring status, maternal deterioration -Tocolysis: Not indicated -GBS status: Negative (will on 09/01/17 at 32 weeks) - status: NST once daily, last growth 08/11 (q3wk next on 09/01) -Steroid status: complete 07/30, rescue complete as of 08/20 -Magnesium for neuro protection: complete on 08/15 -Consultations: neonatology and anesthesiology -Consents obtained: ?? 2. GDM A2: Currently on 24 units nightly and 6 units every morning of NPH insulin. Elevated glucosewith betamethasone dose 2 days ago. Continue on moderate sliding scale for coverage. -FSBS fasting (9 AM) and post-prandial ?? 3. contraception plan: -Desires 6 week Mirena ?? 4. Routine care: - vitamins daily -Elevated 1 hour and 3 hour, GDM A2 -Tdap given 08/03 -Declines flu vaccine ?? 5. Other issues: -Previous x2: Consider active type and screen day of delivery -Asthma: Albuterol nebulizer PRN wheezing, avoid Hemabate -Marijuana use: TEREZA upon admission positive for cannabinoids only -History of depression: Will need 2 week depression screen -Constipation: Colace scheduled, Miralax PRN Patient discussed on Multidisciplinary Rounds EMERITA ROSARIO MD PGY3 08/21/2017 Associated attestation - Crow Vasquez MD - 08/21/2017 4:01 PM EST Maternal Medicine Attending Note Patient: Pam Lake I performed a history and physical exam of the patient and discussed her management with Dr. Rosario.I reviewed Dr. Rosario's note and agree with the documented findings and plan of care. My evaluation is as below: 31w0d weeks EGA; Patient admitted with complicated by vasa previa. LOS: 24 days Subjective: No complaints. Good movement. No contractions. Last value Range last 8 hrs Temperature Temp: 36.8 ??C (98.2 ??F) Temp: [36.8 ??C (98.2 ??F)] Heart Rate Heart Rate: (!) 106 (pt up in room; just walked in hallway) Heart Rate: [106] Blood Pressure BP: 125/80 BP: (125)/(80) Respiratory Rate Resp: 18 Resp: [18] SpO2 SpO2: 100 % SpO2: [100 %] *Abdomen: Soft, non-tender, not distended *Uterus: Soft, Non-tender *Extremities: Non-tender; no edema *NST: See separate report. Impression: Vasa previa at 31w0d weeks EGA. Plan: Continued in patient management for proximity to OR and NICU due to risk of hemorrhage. Daily NST. Ongoing management of GDM. Jane Vasquez MD Maternal- Medicine * Desean Soto Rosie - 08/20/2017 5:07 PM EST PGY-4 NST Review NST Fetus A 08/20/2017 HR (Beats/Min) 155 HR Variability moderate (amplitude range 6 to 25 bpm) HR Accelerations present HR Decelerations episodic;variable Contraction Frequency (Minutes) None Nonstress Test Interpretation Reactive <32 week: two 10 bpm accelerations lasting 10 seconds Overall Impression Reassuring for gestational age Comments One variable at 1638, 2 discontinuous possible variables throughout the remainder of the NST DESEAN SOTO MD PGY4 08/20/2017 Associated attestation - Obdulia Crenshaw MD - 08/20/2017 5:14 PM EST I reviewed this NST and agree with the above note and interpretation. Obdulia Crenshaw MD * Desean Soto - 08/20/2017 7:16 AM EST Images from the original note were not included. Obstetrical Antepartum Progress Note Pam Lake is a 27 y.o. woman at 30w6d with an CHITRA of 10/25/2017, admitted for monitoring in the setting of known vasa previa. This is hospital day #24. Active Problems: Patient Active Problem List Diagnosis ??? Asthma ??? Vasa previa Overview Note: 0.9cm lateral to internal os ??? Low-lying placenta ??? Insulin controlled gestational diabetes mellitus (GDM): diagnosed at 7 weeks gestation ??? Previous section x 2 24 Hour Events --reactive NST --Received second dose of rescue steroid course Subjective: Awoken from sleep. Pam reports she's feeling well this morning. No bleeding, lossof fluid, or decreased movement throughout yesterday. Review of Systems Obstetric Review of Systems Total Weight Gain this 2.268 kg (5 lb) Movement: normal Contractions: none Leaking: None Bleeding; none now Preeclampsia signs and symptoms: None Physical Exam Last value Range last 8 hrs Temperature Temp: 37.2 ??C (99 ??F) Temp: -- Heart Rate Heart Rate: 93 Heart Rate: -- Blood Pressure BP: 108/59 BP: -- Respiratory Rate Resp: 18 Resp: -- SpO2 SpO2: 100 % SpO2: -- Patient Vitals for the past 168 hrs: Weight 08/13/17 1435 (!) 103.6 kg (228 lb 8 oz) Gen: appears well, NAD, sleeping when we entered room CV: RRR, no murmurs/rubs/gallops Pulm: CTAB, no wheezes/crackles Uterus: non-tender Cervix: Deferred Ext: Warm, well perfused, non-tender, no edema Heart Rate Interpretation: Reactive tracing yesterday, please see separate documentation for today. Most Recent Ultrasound Date: 08/11/17 GA at US: 29w2d EFW: 1349 grams, 64%ile Growth: Normal for gestational age Amniotic fluid volume: SHERI 11.44 cm, MVP 4.69 cm Placenta: Posterior low lying placenta, vasa previa remains Presentation: Cephalic GBS Lab Results Component Value Date GBSSCREEN Neg 07/28/2017 Glucose Accord: Assessment & Plan: Pam Lake is a 27 y.o. woman at 30w6d admitted for monitoring with known vasa previa. Vessels continue to traverse across the cervix. Pam will stay hospitalized until 34 weeks, at which time she will deliver via scheduled section, date requested for 09/11 at 34w0d. 1. Vasa Previa: Ultrasound 08/11 confirmed persistent vasa previa -Delivery indications: Progressive labor, non-reassuring status, maternal deterioration -Tocolysis: Not indicated -GBS status: Negative (will on 09/01/17 at 32 weeks) - status: NST once daily, last growth 08/11 (q3wk next on 09/01) -Steroid status: complete 07/30, rescue complete as of 08/20 -Magnesium for neuro protection: complete on 08/15 -Consultations: neonatology and anesthesiology -Consents obtained: ?? 2. GDM A2: Currently on 24 units nightly and 6 units every morning of NPH insulin. Elevated glucosewith betamethasone dose yesterday. Continue on moderate sliding scale for coverage. -FSBS fasting (9 AM) and post-prandial ?? 3. contraception plan: -Desires 6 week Mirena ?? 4. Routine care: - vitamins daily -Elevated 1 hour and 3 hour, GDM A2 -Tdap given 08/03 -Declines flu vaccine ?? 5. Other issues: -Previous x2: Consider active type and screen day of delivery -Asthma: Albuterol nebulizer PRN wheezing, avoid Hemabate -Marijuana use: TEREZA upon admission positive for cannabinoids only -History of depression: Will need 2 week depression screen -Constipation: Colace scheduled, Miralax PRN Patient discussed on Multidisciplinary Rounds Note written in conjunction with Emerita Rosario, PGY-3 DESEAN SOTO MD PGY-4 08/20/2017 Associated attestation - Crow Vasquez MD - 08/20/2017 1:13 PM EST Maternal Medicine Attending Note Patient: Pam Lake I performed a history and physical exam of the patient and discussed her management with Dr. Soto. I reviewed Dr. Soto's note and agree with the documented findings and plan of care. My evaluation is as below: 30w6d weeks EGA; Patient admitted with complicated by vasa previa. LOS: 23 days Subjective: No complaints. Good movement. No contractions. Last value Range last 8 hrs Temperature Temp: 37.2 ??C (99 ??F) Temp: -- Heart Rate Heart Rate: 93 Heart Rate: -- Blood Pressure BP: 108/59 BP: -- Respiratory Rate Resp: 18 Resp: -- SpO2 SpO2: 100 % SpO2: -- *Abdomen: Soft, non-tender, not distended *Uterus: Soft, Non-tender *Extremities: Non-tender; no edema *NST: See separate report. Impression: Stable vasa previa at 30w6d weeks EGA. Plan: Continued in patient management for proximity to OR and NICU due to risk of hemorrhage. Deliver for any bleeding, or non-reassuring maternal or status. Jane Vasquez MD Maternal- Medicine * Desean Soto - 08/19/2017 4:45 PM EST PGY-4 NST Review NST Fetus A 08/19/2017 HR (Beats/Min) 155 HR Variability moderate (amplitude range 6 to 25 bpm) HR Accelerations present HR Decelerations episodic;variable Contraction Frequency (Minutes) None Nonstress Test Interpretation Reactive <32 week: two 10 bpm accelerations lasting 10 seconds Overall Impression Reassuring for gestational age Comments - DESEAN SOTO MD PGY4 08/20/2017 Associated attestation - Obdulia Crenshaw MD - 08/20/2017 11:00 AM EST I reviewed this NST and agree with the above note and interpretation. Obdulia Crenshaw MD * Stephanie Moseley MSW - 08/19/2017 3:52 PM EST Social Work Note Office of Care Management Follow Up: HUMAN RESOURCES PSYCHOLOGIST met with pt at bedside to f/u from yesterday's visit. Pt seems to have calmed down quite a bit from yesterday and was very agreeable to speaking with HUMAN RESOURCES PSYCHOLOGIST. We talked about what the pt currently has control of in her life and how she feels about it. HUMAN RESOURCES PSYCHOLOGIST also went over some CBT techniques that pt can use when she begins to feel overwhelmed. BIT referral was also made and someone will be coming to meet with pt. Plan: HUMAN RESOURCES PSYCHOLOGIST will continue to follow pt for needs. DIEGO Ruiz Pager: [phone] * Desean Soto - 08/19/2017 7:16 AM EST Images from the original note were not included. Obstetrical Antepartum Progress Note Pam Lake is a 27 y.o. woman at 30w5d with an CHITRA of 10/25/2017, admitted for monitoring in the setting of known vasa previa. This is hospital day #23. Active Problems: Patient Active Problem List Diagnosis ??? Asthma ??? Vasa previa Overview Note: 0.9cm lateral to internal os ??? Low-lying placenta ??? Insulin controlled gestational diabetes mellitus (GDM): diagnosed at 7 weeks gestation ??? Previous section x 2 24 Hour Events --reactive NST --Received first dose rescue steroids --Abdominal pain overnight, constant pressure, now resolved Subjective: Awoken from sleep. Pam reports she's feeling well this morning. She had a SALMERON after BMZ last evening, not now. No bleeding, loss of fluid, or decreased movement throughout yesterday. Review of Systems Obstetric Review of Systems Total Weight Gain this 2.268 kg (5 lb) Movement: normal Contractions: none Leaking: None Bleeding; none now Preeclampsia signs and symptoms: None Physical Exam Last value Range last 8 hrs Temperature Temp: 36.7 ??C (98.1 ??F) Temp: -- Heart Rate Heart Rate: 88 Heart Rate: -- Blood Pressure BP: 122/68 BP: -- Respiratory Rate Resp: 18 Resp: -- SpO2 SpO2: 100 % SpO2: -- Patient Vitals for the past 168 hrs: Weight 08/13/17 1435 (!) 103.6 kg (228 lb 8 oz) Gen: appears well, NAD, sleeping when we entered room CV: RRR, no murmurs/rubs/gallops Pulm: CTAB, no wheezes/crackles Uterus: non-tender Cervix: Deferred Ext: Warm, well perfused, non-tender, no edema Heart Rate Interpretation: Reactive tracing yesterday, please see separate documentation for today. Most Recent Ultrasound Date: 08/11/17 GA at US: 29w2d EFW: 1349 grams, 64%ile Growth: Normal for gestational age Amniotic fluid volume: SHERI 11.44 cm, MVP 4.69 cm Placenta: Posterior low lying placenta, vasa previa remains Presentation: Cephalic GBS Lab Results Component Value Date GBSSCREEN Neg 07/28/2017 Glucose Accord: Assessment & Plan: Pam Lake is a 27 y.o. woman at 30w5d admitted for monitoring with known vasa previa. Vessels continue to traverse across the cervix. Pam will stay hospitalized until 34 weeks, at which time she will deliver via scheduled section, date requested for 09/11 at 34w0d. 1. Vasa Previa: Ultrasound 08/11 confirmed persistent vasa previa -Delivery indications: Progressive labor, non-reassuring status, maternal deterioration -Tocolysis: Not indicated -GBS status: Negative (will on 09/01/17 at 32 weeks) - status: NST once daily, last growth 08/11 (q3wk next on 09/01) -Steroid status: complete 07/30, rescue dose 08/18 and 08/19 -Magnesium for neuro protection: complete on 08/15 -Consultations: neonatology and anesthesiology -Consents obtained: ?? 2. GDM A2: Currently on 24 units nightly and 6 units every morning of NPH insulin. Elevated glucosewith betamethasone dose yesterday. Continue on moderate sliding scale for coverage. -FSBS fasting (9 AM) and post-prandial ?? 3. contraception plan: -Desires 6 week Mirena ?? 4. Routine care: - vitamins daily -Elevated 1 hour and 3 hour, GDM A2 -Tdap given 08/03 -Declines flu vaccine ?? 5. Other issues: -Previous x2: Consider active type and screen day of delivery -Asthma: Albuterol nebulizer PRN wheezing, avoid Hemabate -Marijuana use: TEREZA upon admission positive for cannabinoids only -History of depression: Will need 2 week depression screen -Constipation: Colace scheduled, Miralax PRN Patient discussed on Multidisciplinary Rounds Note written in conjunction with Emerita Rosario, PGY-3 DESEAN SOTO MD PGY-4 08/19/2017 Associated attestation - Li Sepulveda MD - 08/19/2017 5:39 PM EST MFM attending note I saw and evaluated the patient with the team on multidisciplinary rounds. I agree with the findings and the plan of care as documented in the residents' note. The patient reports feeling well. She denies contractions, leaking of fluid or bleeding. She reports good activity. My physical exam confirms and/or revises the resident's exam. Temp: [36.7 ??C (98.1 ??F)-37.2 ??C (99 ??F)] Heart Rate: [88-93] Resp: [18] BP: (108-122)/(59-68) SpO2: [100 %] Heart Rate from SPO2: [97 bpm-106 bpm] Nonstress test: Documented elsewhere Abdomen: gravid, soft, nontender Ext: no edema Impression: 30 5/7 weeks admitted with vasa previa for prolonged hospitalization given the risk forfetal exsanguination after vessel rupture or rupture of membranes. She has been stable during this hospitalization Gestational diabetes A2 in good control Asthma Low-lying placenta 2 previous section Plan: Continue hospitalization to rule out immediate access to the emergency room and Intensive Care Nursery. Fingerstick blood sugars and titrate insulin Li Sepulveda MD * Stephanie Moseley MSW - 08/18/2017 5:42 PM EST Social Work Note Office of Care Management Follow Up: HUMAN RESOURCES PSYCHOLOGIST met with pt at bedside. She was visibly upset and crying. Pt is emotionally distressed over notbeing able to see her children on a regular basis and not having the freedom to leave the hospital. Plan: HUMAN RESOURCES PSYCHOLOGIST will put in BIT referral and provide pt with some relaxation tips and references. DIEGO Ruiz Pager: [phone] * Latasha Nj - 08/18/2017 4:39 PM EST NST Note NST Fetus A 08/18/2017 HR (Beats/Min) 140 HR Variability moderate (amplitude range 6 to 25 bpm) HR Accelerations present;lasts at least 10 seconds (32 wks gest or less);greater than/equal to 10 bpm (32 wks gest or less) HR Decelerations none Contraction Frequency (Minutes) none Nonstress Test Interpretation Reactive <32 week: two 10 bpm accelerations lasting 10 seconds Overall Impression Reassuring for gestational age Comments - LATASHA NJ MD PGY3 Associated attestation - Yeny Waterman MD - 08/18/2017 5:16 PM EST I personally reviewed and interpreted this NST. Yeny Waterman MD * Caridad Miranda RN - 08/18/2017 1:59 PM EST 0730: Patient asleep 0840: Patient woken up for rounds, but declined getting VS at that time, fasting BG obtained, see results review. Asked patient to please call me when she was awake so I could come in and assess her,do VS and her NST. 1100: patient still sleeping 1230: patient still asleep 1330: patient awake but asked me to come back as she was on the phone 1400: patient visibly upset, making a call again and asked me to come back in an hour or two, and that she just wanted to be left alone. Again asked patient to please call out when she is ready for care. Patient agreed. * Latasha Nj - 08/18/2017 7:30 AM EST Images from the original note were not included. Obstetrical Antepartum Progress Note Pam Lake is a 27 y.o. woman at 30w4d with an CHITRA of 10/25/2017, admitted for monitoring in the setting of known vasa previa. This is hospital day #22. Active Problems: Patient Active Problem List Diagnosis ??? Asthma ??? Vasa previa Overview Note: 0.9cm lateral to internal os ??? Low-lying placenta ??? Insulin controlled gestational diabetes mellitus (GDM): diagnosed at 7 weeks gestation ??? Previous section x 2 24 Hour Events --reactive NST Subjective: Awoken from sleep. Pam reports she's feeling well. No bleeding, loss of fluid, ordecreased movement throughout yesterday. No cramping overnight. Review of Systems Obstetric Review of Systems Total Weight Gain this 2.268 kg (5 lb) Movement: normal Contractions: none Leaking: None Bleeding; none now Preeclampsia signs and symptoms: None Physical Exam Last value Range last 8 hrs Temperature Temp: 36.7 ??C (98.1 ??F) Temp: -- Heart Rate Heart Rate: 79 Heart Rate: -- Blood Pressure BP: 108/54 BP: -- Respiratory Rate Resp: 18 Resp: -- SpO2 SpO2: 100 % SpO2: -- Patient Vitals for the past 168 hrs: Weight 08/13/17 1435 (!) 103.6 kg (228 lb 8 oz) Gen: appears well, NAD, sleeping when we entered room CV: RRR, no murmurs/rubs/gallops Pulm: CTAB, no wheezes/crackles Uterus: non-tender Cervix: Deferred Ext: Warm, well perfused, non-tender, no edema Heart Rate Interpretation: Reactive tracing yesterday, please see separate documentation for today. Most Recent Ultrasound Date: 08/11/17 GA at US: 29w2d EFW: 1349 grams, 64%ile Growth: Normal for gestational age Amniotic fluid volume: SHERI 11.44 cm, MVP 4.69 cm Placenta: Posterior low lying placenta, vasa previa remains Presentation: Cephalic GBS Lab Results Component Value Date GBSSCREEN Neg 07/28/2017 Glucose Accord: Assessment & Plan: Pam Lake is a 27 y.o. woman at 30w4d admitted for monitoring with known vasa previa. Vessels continue to traverse across the cervix. Pam will stay hospitalized until 34 weeks, at which time she will deliver via scheduled section, date requested for 09/11 at 34w0d. 1. Vasa Previa: Ultrasound 08/11 confirmed persistent vasa previa -Delivery indications: Progressive labor, non-reassuring status, maternal deterioration -Tocolysis: Not indicated -GBS status: Negative (will on 09/01/17 at 32 weeks) - status: NST once daily, last growth 08/11 (q3wk next on 09/01) -Steroid status: complete 07/30, rescue dose 08/18 and 08/19 -Magnesium for neuro protection: complete on 08/15 -Consultations: neonatology and anesthesiology -Consents obtained: ?? 2. GDM A2: Currently on 24 units nightly and 6 units every morning of NPH insulin. Fasting glucose within normal limits yesterday. Post-prandials intermittently elevated. Will time fingersticks and insulin for noon and midnight given her sleep and eating schedule. -FSBS fasting and post-prandial ?? 3. contraception plan: -Desires 6 week Mirena ?? 4. Routine care: - vitamins daily -Elevated 1 hour and 3 hour, GDM A2 -Tdap given 08/03 -Declines flu vaccine ?? 5. Other issues: -Previous x2: Consider active type and screen day of delivery -Asthma: Albuterol nebulizer PRN wheezing, avoid Hemabate -Marijuana use: TEREZA upon admission positive for cannabinoids only -History of depression: Will need 2 week depression screen -Constipation: Colace scheduled, Miralax PRN Patient discussed on Multidisciplinary Rounds LATASHA NJ MD PGY-3 08/18/2017 Associated attestation - Li Sepulveda MD - 08/18/2017 8:17 PM EST MFM attending note I saw and evaluated the patient with the team on multidisciplinary rounds. I agree with the findings and the plan of care as documented in the residents' note. The patient reports feeling well. She denies contractions, leaking of fluid or bleeding. She reports good activity. My physical exam confirms and/or revises the resident's exam. Temp: [37.1 ??C (98.8 ??F)-37.4 ??C (99.3 ??F)] Heart Rate: [95-107] Resp: [17-18] BP: (115-145)/(64-88) SpO2: [100 %] Heart Rate from SPO2: [84 bpm-104 bpm] Nonstress test: Documented elsewhere Abdomen: gravid, soft, nontender Ext: no edema Impression: 30 4/7 weeks here with a vasa previa for safety for access to emergency if there is any evidence for bleeding and rupture of membranes Reassuring testing No evidence for labor. Asthma Prior GDMA2 Plan: Continue hospitalization for and maternal safety and ongoing assessment regarding need for delivery. Nonstress test insulin Li Sepulveda MD * Bhupendra Obregon MD - 08/18/2017 1:02 AM EST Antepartum NST Note NST Fetus A 08/18/2017 HR (Beats/Min) 150 HR Variability moderate (amplitude range 6 to 25 bpm) HR Accelerations lasts at least 10 seconds (32 wks gest or less);greater than/equal to 10 bpm(32 wks gest or less) HR Decelerations none Contraction Frequency (Minutes) absent Nonstress Test Interpretation Reactive <32 week: two 10 bpm accelerations lasting 10 seconds Overall Impression Reassuring for gestational age Comments - BHUPENDRA OBREGON MD PGY-4 08/18/2017 Associated attestation - Farnaz Pino MD - 08/18/2017 6:30 AM EST I personally have reviewed the heart rate tracing. The NST is reactive and the tracing is reassuring. FARNAZ PINO MD * Yoly Cueva MD - 08/17/2017 11:00 AM EST Images from the original note were not included. Obstetrical Antepartum Progress Note Pam Lake is a 27 y.o. woman at 30w3d with an CHITRA of 10/25/2017, admitted for monitoring in the setting of known vasa previa. This is hospital day #21. Active Problems: Patient Active Problem List Diagnosis ??? Asthma ??? Vasa previa Overview Note: 0.9cm lateral to internal os ??? Low-lying placenta ??? Insulin controlled gestational diabetes mellitus (GDM): diagnosed at 7 weeks gestation ??? Previous section x 2 24 Hour Events --reactive NST yesterday --completed magnesium for neuroprotection Subjective: Awoken from sleep. Pam reports she's feeling well. No bleeding, loss of fluid, ordecreased movement throughout yesterday. No cramping overnight. Review of Systems Obstetric Review of Systems Total Weight Gain this 2.268 kg (5 lb) Movement: normal Contractions: none Leaking: None Bleeding; none now Preeclampsia signs and symptoms: None Physical Exam Last value Range last 8 hrs Temperature Temp: 36.7 ??C (98.1 ??F) Temp: -- Heart Rate Heart Rate: 85 Heart Rate: -- Blood Pressure BP: 119/70 BP: -- Respiratory Rate Resp: 20 Resp: -- SpO2 SpO2: 100 % SpO2: -- Patient Vitals for the past 168 hrs: Weight 08/13/17 1435 (!) 103.6 kg (228 lb 8 oz) 08/10/17 1247 (!) 102.6 kg (226 lb 3.1 oz) Gen: appears well, NAD, sleeping when we entered room CV: RRR, no murmurs/rubs/gallops Pulm: CTAB, no wheezes/crackles Uterus: non-tender Cervix: Deferred Ext: Warm, well perfused, non-tender, no edema Heart Rate Interpretation: Reactive tracing yesterday, please see separate documentation for today. Most Recent Ultrasound Date: 08/11/17 GA at US: 29w2d EFW: 1349 grams, 64%ile Growth: Normal for gestational age Amniotic fluid volume: SHERI 11.44 cm, MVP 4.69 cm Placenta: Posterior low lying placenta, vasa previa remains Presentation: Cephalic GBS Lab Results Component Value Date GBSSCREEN Neg 07/28/2017 Glucose Accord: Assessment & Plan: Pam Lake is a 27 y.o. woman at 30w3d admitted for monitoring with known vasa previa. Vessels continue to traverse across the cervix. Pam will stay hospitalized until 34 weeks, at which time she will deliver via scheduled section, date requested for 09/11 at 34w0d. 1. Vasa Previa: Ultrasound 08/11 confirmed persistent vasa previa -Delivery indications: Progressive labor, non-reassuring status, maternal deterioration -Tocolysis: Not indicated -GBS status: Negative (will on 09/01/17 at 32 weeks) - status: NST once daily -Steroid status: Second dose 07/29, complete 07/30 -Magnesium for neuro protection: Not indicated -Consultations: neonatology and anesthesiology -Consents obtained: ?? 2. GDM A2: Currently on 24 units nightly and 6 units every morning of NPH insulin. Fasting glucose within normal limits yesterday. Post-prandials intermittently elevated. Will time fingersticks and insulin for noon and midnight given her sleep and eating schedule. -FSBS fasting and post-prandial ?? 3. contraception plan: -Desires 6 week Mirena ?? 4. Routine care: - vitamins daily -Elevated 1 hour and 3 hour, GDM A2 -Tdap given 08/03 -Declines flu vaccine ?? 5. Other issues: -Previous x2: Consider active type and screen day of delivery -Asthma: Albuterol nebulizer PRN wheezing, avoid Hemabate -Marijuana use: TEREZA upon admission positive for cannabinoids only -History of depression: Will need 2 week depression screen -Constipation: Colace scheduled, Miralax PRN Patient discussed on Multidisciplinary Rounds YOLY CUEVA MD PGY-4 08/17/2017 Associated attestation - Li Sepulveda MD - 08/17/2017 11:24 AM EST MFM attending note I saw and evaluated the patient with the team on multidisciplinary rounds. I agree with the findings and the plan of care as documented in the residents' note. The patient reports feeling well. She denies contractions, leaking of fluid or bleeding. She reports good activity. My physical exam confirms and/or revises the resident's exam. Temp: [36.7 ??C (98.1 ??F)-36.8 ??C (98.2 ??F)] Heart Rate: [85-89] Resp: [20] BP: (115-119)/(70-74) SpO2: [100 %] Heart Rate from SPO2: [91 bpm] Nonstress test: Documented elsewhere Abdomen: gravid, soft, nontender Ext: no edema Impression: 30 3/7 weeks with complicated by vasa previa. She has had no evidence for bleeding or compromise. Well controlled GDMA2 on insulin Obesity Asthma Previous section Posterior placenta decreases the risk of accreta Plan: Continue hospitalization for and maternal safety and ongoing assessment regarding need for delivery. Nonstress test Emergent delivery for bleeding Urgent for rupture of membranes. Li Sepulveda MD * Latasha Nj - 08/16/2017 12:32 AM EST Images from the original note were not included. Obstetrical Antepartum Progress Note Pam Lake is a 27 y.o. woman at 30w2d with an CHITRA of 10/25/2017, admitted for monitoring in the setting of known vasa previa. This is hospital day #19. Active Problems: Patient Active Problem List Diagnosis ??? Asthma ??? Vasa previa Overview Note: 0.9cm lateral to internal os ??? Low-lying placenta ??? Insulin controlled gestational diabetes mellitus (GDM): diagnosed at 7 weeks gestation ??? Previous section x 2 24 Hour Events - Reactive NST yesterday Subjective: Pam reports she's feeling well. No bleeding, loss of fluid, or decreased movementthroughout yesterday. No cramping overnight. Review of Systems Obstetric Review of Systems Total Weight Gain this 2.268 kg (5 lb) Movement: normal Contractions: none Leaking: None Bleeding; none now Preeclampsia signs and symptoms: None Physical Exam BP 115/74 (BP Location (NBP): Left arm) Pulse 89 Temp 36.8 ??C (98.2 ??F) (Oral) Resp 20 Ht(!) 149.9 cm (4' 11.02) Wt (!) 103.6 kg (228 lb 8 oz) SpO2 100% BMI 46.13 kg/m2 Gen: appears well, NAD, sleeping when we entered room CV: RRR, no murmurs/rubs/gallops Pulm: CTAB, no wheezes/crackles Uterus: non-tender Cervix: Deferred Ext: Warm, well perfused, non-tender, no edema Heart Rate Interpretation: Reactive tracing yesterday, please see separate documentation for today. Most Recent Ultrasound Date: 08/11/17 GA at US: 29w2d EFW: 1349 grams, 64%ile Growth: Normal for gestational age Amniotic fluid volume: SHERI 11.44 cm, MVP 4.69 cm Placenta: Posterior low lying placenta, vasa previa remains Presentation: Cephalic GBS Lab Results Component Value Date GBSSCREEN Neg 07/28/2017 Glucose Accord: Assessment & Plan: Pam Lake is a 27 y.o. woman at 30w2d admitted for monitoring with known vasa previa. Vessels continue to traverse across the cervix. Pam will stay hospitalized until 34 weeks, at which time she will deliver via scheduled section, date requested for 09/11 at 34w0d. 1. Vasa Previa: Ultrasound 08/11 confirmed persistent vasa previa -Delivery indications: Progressive labor, non-reassuring status, maternal deterioration -Tocolysis: Not indicated -GBS status: Negative (will on 09/01/17 at 32 weeks) - status: NST once daily -Steroid status: Second dose 07/29, complete 07/30 -Magnesium for neuro protection: Completed 08/15 -Consultations: neonatology and anesthesiology -Consents obtained: ?? 2. GDM A2: Currently on 24 units nightly and 6 units every morning of NPH insulin. Fasting glucose within normal limits yesterday. Post-prandials intermittently elevated. Will time fingersticks and insulin for noon and midnight given her sleep and eating schedule. -FSBS fasting and post-prandial ?? 3. contraception plan: -Desires interval 6 week Mirena ?? 4. Routine care: - vitamins daily -Elevated 1 hour and 3 hour, GDM A2 -Tdap given 08/03 -Declines flu vaccine ?? 5. Other issues: -Previous x2: -Asthma: Albuterol nebulizer PRN wheezing, avoid Hemabate -Marijuana use: TEREZA upon admission positive for cannabinoids only -History of depression: Will need 2 week depression screen -Constipation: Colace scheduled, Miralax PRN Patient discussed on Multidisciplinary Rounds LATASHA NJ MD PGY-3 08/16/2017 Associated attestation - Li Sepulveda MD - 08/16/2017 4:14 PM EST MFM attending note I saw and evaluated the patient with the team on multidisciplinary rounds. I agree with the findings and the plan of care as documented in the residents' note. The patient reports feeling well. She denies contractions, leaking of fluid or bleeding. She reports good activity. My physical exam confirms and/or revises the resident's exam. Temp: [36.8 ??C (98.2 ??F)] Heart Rate: [79-159] Resp: [18-20] BP: (106-119)/(56-74) SpO2: [99 %-100 %] Heart Rate from SPO2: [77 bpm-97 bpm] Nonstress test: Documented elsewhere Abdomen: gravid, soft, nontender Ext: no edema Impression: 30 2/7 weeks here with monitoring for bleeding in the setting of a vasa previa. To date she has been very stable without evidence for labor, rupture of membranes or compromise. There has been no evidence for bleeding. Previous section Mild intermittent asthma GDM A2 in good control on insulin Plan: Continue hospitalization for ability to respond instantly for any evidence of bleeding.She will need an emergency where she to have any bleeding and an urgent for rupture of membranes. Nonstress test Insulin and fingerstick blood sugar testing. We will do rescue course of steroids in several days. Li Sepulveda MD * Valery Hoover RN - 08/15/2017 8:10 PM EST Called to patient's room, observed patient crying incontrollable further observed patient had vomited approximately 10 ml onto the floor & a small amount on her shirt. Consoled patient immediately, observed patient's favorable response.Patient stated, I am frustrated & angry! I was supposeto see my children tonight & that's not going to happen! I just want to see my children!. Patient expressed feeling anxious. Lead patient into deep breathing exercises to decrease her feelings of anger, frustration, & anxiousness. Yoly Patricia MD - 08/15/2017 1:27 PM EST PGY-4 Daily NST NST Fetus A 08/15/2017 HR (Beats/Min) 140 HR Variability moderate (amplitude range 6 to 25 bpm) HR Accelerations present;greater than/equal to 10 bpm (32 wks gest or less);lasts at least 10seconds (32 wks gest or less) HR Decelerations variable Contraction Frequency (Minutes) none Nonstress Test Interpretation Reactive <32 week: two 10 bpm accelerations lasting 10 seconds Overall Impression Reassuring for gestational age Comments baseline wanders at time to 145, rare variable deceleration consistent with gestational age YOLY CUEVA MD PGY-4 08/15/2017 Associated attestation - Percy Huerta MD - 08/15/2017 4:36 PM EST I personally reviewed the FHR Tracing and agree with the Resident???s interpretation. PERCY HUERTA MD * Yoly Cueva MD - 08/15/2017 12:37 PM EST Images from the original note were not included. Obstetrical Antepartum Progress Note Pam Lake is a 27 y.o. woman at 30w1d with an CHITRA of 10/25/2017, admitted for monitoring in the setting of known vasa previa. This is hospital day #19. Active Problems: Patient Active Problem List Diagnosis ??? Asthma ??? Vasa previa Overview Note: 0.9cm lateral to internal os ??? Low-lying placenta ??? Insulin controlled gestational diabetes mellitus (GDM): diagnosed at 7 weeks gestation ??? Previous section x 2 24 Hour Events - Reactive NST yesterday - Receiving magnesium for neuroprotection Subjective: Awoken from sleep. Pam reports she's feeling well. No bleeding, loss of fluid, ordecreased movement throughout yesterday. No cramping overnight. Review of Systems Obstetric Review of Systems Total Weight Gain this 2.268 kg (5 lb) Movement: normal Contractions: none Leaking: None Bleeding; none now Preeclampsia signs and symptoms: None Physical Exam BP 95/49 Pulse 80 Temp 36.8 ??C (98.2 ??F) (Oral) Resp 16 Ht (!) 149.9 cm (4' 11.02) Wt (!) 103.6 kg (228 lb 8 oz) SpO2 98% BMI 46.13 kg/m2 Gen: appears well, NAD, sleeping when we entered room CV: RRR, no murmurs/rubs/gallops Pulm: CTAB, no wheezes/crackles Uterus: non-tender Cervix: Deferred Ext: Warm, well perfused, non-tender, no edema Heart Rate Interpretation: Reactive tracing yesterday, please see separate documentation for today. Most Recent Ultrasound Date: 08/11/17 GA at US: 29w2d EFW: 1349 grams, 64%ile Growth: Normal for gestational age Amniotic fluid volume: SHERI 11.44 cm, MVP 4.69 cm Placenta: Posterior low lying placenta, vasa previa remains Presentation: Cephalic GBS Lab Results Component Value Date GBSSCREEN Neg 07/28/2017 Glucose Accord: Assessment & Plan: Pam Lake is a 27 y.o. woman at 30w1d admitted for monitoring with known vasa previa. Vessels continue to traverse across the cervix. Pam will stay hospitalized until 34 weeks, at which time she will deliver via scheduled section, date requested for 09/11 at 34w0d. 1. Vasa Previa: Ultrasound 08/11 confirmed persistent vasa previa -Delivery indications: Progressive labor, non-reassuring status, maternal deterioration -Tocolysis: Not indicated -GBS status: Negative (will on 09/01/17 at 32 weeks) - status: NST once daily -Steroid status: Second dose 07/29, complete 07/30 -Magnesium for neuro protection: Not indicated -Consultations: neonatology and anesthesiology -Consents obtained: ?? 2. GDM A2: Currently on 24 units nightly and 6 units every morning of NPH insulin. Fasting glucose within normal limits yesterday. Post-prandials intermittently elevated. Will time fingersticks and insulin for noon and midnight given her sleep and eating schedule. -FSBS fasting and post-prandial ?? 3. contraception plan: -Desires 6 week Mirena ?? 4. Routine care: - vitamins daily -Elevated 1 hour and 3 hour, GDM A2 -Tdap given 08/03 -Declines flu vaccine ?? 5. Other issues: -Previous x2: Consider active type and screen day of delivery -Asthma: Albuterol nebulizer PRN wheezing, avoid Hemabate -Marijuana use: TEREZA upon admission positive for cannabinoids only -History of depression: Will need 2 week depression screen -Constipation: Colace scheduled, Miralax PRN Patient discussed on Multidisciplinary Rounds YOLY CUEVA MD PGY-4 08/15/2017 Associated attestation - Li Sepulveda MD - 08/15/2017 6:26 PM EST MFM attending note I saw and evaluated the patient with the team on multidisciplinary rounds. I agree with the findings and the plan of care as documented in the residents' note. The patient reports feeling well. She denies contractions, leaking of fluid or bleeding. She reports good activity. My physical exam confirms and/or revises the resident's exam. Temp: [36.6 ??C (97.9 ??F)-36.9 ??C (98.4 ??F)] Heart Rate: [70-155] Resp: [16-20] BP: (79-123)/(44-72) SpO2: [97 %-100 %] Heart Rate from SPO2: [71 bpm-106 bpm] Nonstress test: Documented elsewhere Abdomen: gravid, soft, nontender Ext: no edema Impression: 30 1/7 weeks admitted with a vasa previa for surveillance for need for emergency surgery. Needs tertiary care hospitalization for access to OR, ICN and bloodbank Reassuring testing to date GDM A2 Plan: Continue hospitalization for and maternal safety and ongoing assessment regarding need for delivery. Nonstress test Li Sepulveda MD * Desean Soto - 08/14/2017 1:47 PM EST PGY-4 NST Review NST Fetus A 08/14/2017 HR (Beats/Min) 150 HR Variability moderate (amplitude range 6 to 25 bpm) HR Accelerations present HR Decelerations episodic;variable Contraction Frequency (Minutes) None Nonstress Test Interpretation Reactive <32 week: two 10 bpm accelerations lasting 10 seconds Overall Impression Reassuring for gestational age Comments possible shallow short variables intermittently wiht quick return to baseline vs part of the variability DESEAN SOTO MD PGY4 08/14/2017 Associated attestation - Tami Preston MD - 08/14/2017 2:18 PM EST I have reviewed the tracing and agree with the resident's interpretation. TAMI PRESTON MD * Pam Pan DT - 08/14/2017 10:54 AM EST Nutrition Services - Follow-up Note Pam Lake : 1990 AGE: 27 y.o. Patient Active Problem List Diagnosis Date Noted ??? Hospital-Asthma 07/28/2017 ??? Hospital-Vasa previa 07/09/2017 ??? Low-lying placenta 07/09/2017 ??? Hospital-Insulin controlled gestational diabetes mellitus (GDM): diagnosed at 7 weeks [id number]/06/2017 ??? Hospital-Previous section x 2 05/29/2017 Reason for Nutrition Intervention: Follow-up Diet Order: Gestational, CHO2 Appetite: Good Food allergies: NKFA Ht Readings from Last 3 Encounters: 08/10/17 (!) 149.9 cm (4' 11.02) 06/04/17 (!) 149.9 cm (4' 11) Wt Readings from Last 3 Encounters: 08/13/17 (!) 103.6 kg (228 lb 8 oz) 07/28/17 (!) 104.8 kg (231 lb) 07/09/17 (!) 104.1 kg (229 lb 9.6 oz) Body mass index is 46.13 kg/(m^2). Vitamins/Minerals: noted. Tums noted. Assessment: Patient denies further need for nutrition education. Pt reported a good appetite that has been ongoing. Nursing documentation notes between 75-100% PO intake. She is tolerating her current diet without nausea or vomiting. Pt is making out her meal choices daily. She did not have questions. Nutrition will continue to monitor and follow up weekly. Nutrition Plan: Continue current diet. Recommend Daily Multi Vitamins. Encourage good po intake. Monitor weight. Support and encouragement provided. Nutrition services to follow weekly thru hospital course unless consulted in the interim. RAGHAVENDRA Pickering * Desean Soto - 08/14/2017 6:43 AM EST Obstetrical Antepartum Progress Note Pam Lake is a 27 y.o. woman at 30w0d with an CHITRA of 10/25/2017, admitted for monitoring in the setting of known vasa previa. This is hospital day #18. Active Problems: Patient Active Problem List Diagnosis ??? Asthma ??? Vasa previa Overview Note: 0.9cm lateral to internal os ??? Low-lying placenta ??? Insulin controlled gestational diabetes mellitus (GDM): diagnosed at 7 weeks gestation ??? Previous section x 2 24 Hour Events -Reactive NST yesterday -Due date corrected in medical record to 10/23/17 as dated by her LMP documented in her scanned records. Subjective: Awoken from sleep. Pam reports she's feeling well. No bleeding, loss of fluid, ordecreased movement throughout yesterday. No cramping overnight. Review of Systems Obstetric Review of Systems Total Weight Gain this 2.268 kg (5 lb) Movement: normal Contractions: none Leaking: None Bleeding; none now Preeclampsia signs and symptoms: None Physical Exam BP 126/65 Pulse 84 Temp 36.8 ??C (98.2 ??F) (Oral) Resp 16 Ht (!) 149.9 cm (4' 11.02) Wt(!) 103.6 kg (228 lb 8 oz) SpO2 100% BMI 46.13 kg/m2 Gen: appears well, NAD, sleeping when we entered room CV: RRR, no murmurs/rubs/gallops Pulm: CTAB, no wheezes/crackles Uterus: non-tender Cervix: Deferred Ext: Warm, well perfused, non-tender, no edema Heart Rate Interpretation: Reactive tracing yesterday, please see separate documentation for today. Most Recent Ultrasound Date: 08/11/17 GA at US: 29w2d EFW: 1349 grams, 64%ile Growth: Normal for gestational age Amniotic fluid volume: SHERI 11.44 cm, MVP 4.69 cm Placenta: Posterior low lying placenta, vasa previa remains Presentation: Cephalic GBS Lab Results Component Value Date GBSSCREEN Neg 07/28/2017 Glucose Accord: Assessment & Plan: Pam Lake is a 27 y.o. woman at 30w0d admitted for monitoring with known vasa previa. Vessels continue to transverse across the cervix. Pam will stay hospitalized until 34 weeks, at which time she will deliver via scheduled section, date requested for 09/11 at 34w0d. 1. Vasa Previa: Ultrasound 08/11 confirmed persistent vasa previa -Delivery indications: Progressive labor, non-reassuring status, maternal deterioration -Tocolysis: Not indicated -GBS status: Negative (will on 09/01/17 at 32 weeks) - status: NST once daily -Steroid status: Second dose 07/29, complete 07/30 -Magnesium for neuro protection: Not indicated -Consultations: neonatology and anesthesiology -Consents obtained: ?? 2. GDM A2: Currently on 24 units nightly and 6 units every morning of NPH insulin. Fasting glucose within normal limits yesterday. Post-prandials intermittently elevated. Will time fingersticks and insulin for noon and midnight given her sleep and eating schedule. -FSBS fasting and post-prandial ?? 3. contraception plan: -Desires 6 week Mirena ?? 4. Routine care: - vitamins daily -Elevated 1 hour and 3 hour, GDM A2 -Tdap given 08/03 -Declines flu vaccine ?? 5. Other issues: -Previous x2: Consider active type and screen day of delivery -Asthma: Albuterol nebulizer PRN wheezing, avoid Hemabate -Marijuana use: TEREZA upon admission positive for cannabinoids only -History of depression: Will need 2 week depression screen -Constipation: Colace scheduled, Miralax PRN Patient discussed on Multidisciplinary Rounds. Note written in conjunction with Emerita Rosario, PGY3. DESEAN SOTO MD PGY4 08/14/2017 Associated attestation - Emanuel Barrett MD - 08/19/2017 8:58 AM EST I have seen and examined the patient, providing beck components as outlined below. I have reviewed the resident???s above note; my evaluation of the patient is below: 30 0/7 weeks vasa previa. FM felt, no LOF, no bleeding or richard. Afeb VSS Abdomen soft, NT Uterus NT Ext NT I/R 30 1/7 weeks vasa previa status reassuring S/p BMZ S/p magnesium S/p NICU consult GDM well controlled CS for delivery if bleeding occurs EMANUEL BARRETT MD * Desean Soto - 08/13/2017 4:10 PM EST PGY-4 NST Review NST Fetus A 08/13/2017 HR (Beats/Min) 150 HR Variability moderate (amplitude range 6 to 25 bpm) HR Accelerations present HR Decelerations episodic;variable Contraction Frequency (Minutes) None Nonstress Test Interpretation Reactive <32 week: two 10 bpm accelerations lasting 10 seconds Overall Impression Reassuring for gestational age Comments - DESEAN SOTO MD PGY4 08/13/2017 Associated attestation - Percy Huerta MD - 08/15/2017 5:24 PM EST I personally reviewed the FHR Tracing and agree with the Resident???s interpretation. PERCY HUERTA MD * Desean Soto - 08/13/2017 6:56 AM EST Images from the original note were not included. Obstetrical Antepartum Progress Note Pam Lake is a 27 y.o. woman at 29w4d with an CHITRA of 10/25/2017, admitted for monitoring in the setting of known vasa previa. This is hospital day #17. Active Problems: Patient Active Problem List Diagnosis ??? Asthma ??? Vasa previa Overview Note: 0.9cm lateral to internal os ??? Low-lying placenta ??? Insulin controlled gestational diabetes mellitus (GDM): diagnosed at 7 weeks gestation ??? Previous section x 2 24 Hour Events -Reactive NST yesterday Subjective: Awoken from sleep. Pam reports she's feeling well. No bleeding, loss of fluid, ordecreased movement. No cramping overnight. She wants to know when her section will be scheduled. Review of Systems Obstetric Review of Systems Total Weight Gain this 2.268 kg (5 lb) Movement: normal Contractions: none Leaking: None Bleeding; none now Preeclampsia signs and symptoms: None Physical Exam BP 110/62 (BP Location (NBP): Left arm) Pulse 96 Temp 36.6 ??C (97.9 ??F) (Oral) Resp 18 Ht(!) 149.9 cm (4' 11.02) Wt (!) 102.6 kg (226 lb 3.1 oz) SpO2 100% BMI 45.66 kg/m2 Gen: appears well, NAD, sleeping when we entered room CV: RRR, no murmurs/rubs/gallops Pulm: CTAB, no wheezes/crackles Uterus: non-tender Cervix: Deferred Ext: Warm, well perfused, non-tender, no edema Heart Rate Interpretation: Reactive tracing yesterday, please see separate documentation for today. Most Recent Ultrasound Date: 08/11/17 GA at US: 29w2d EFW: 1349 grams, 64%ile Growth: Normal for gestational age Amniotic fluid volume: SHERI 11.44 cm, MVP 4.69 cm Placenta: Posterior low lying placenta, vasa previa remains Presentation: Cephalic GBS Lab Results Component Value Date GBSSCREEN Neg 07/28/2017 Glucose Accord: Assessment & Plan: Pam Lake is a 27 y.o. woman at 29w4d admitted for monitoring with known vasa previa. Vessels continue to transverse across the cervix. Pam will stay hospitalized until 34 weeks, at which time she will deliver via scheduled section. 1. Vasa Previa: Ultrasound 08/11 confirmed persistent vasa previa -Delivery indications: Progressive labor, non-reassuring status, maternal deterioration -Tocolysis: Not indicated -GBS status: Negative (will on 09/01/17 at 32 weeks) - status: NST once daily -Steroid status: Second dose 07/29, complete 07/30 -Magnesium for neuro protection: Not indicated -Consultations: neonatology and anesthesiology -Consents obtained: ?? 2. GDM A2: Currently on 24 units nightly and 6 units every morning of NPH insulin. Fasting glucose still >95 mg/dL, but 1 hour postprandial improved. Await fasting glucose this AM. Will time fingersticks and insulin for noon and midnight. -FSBS fasting and post-prandial ?? 3. contraception plan: -Desires 6 week Mirena ?? 4. Routine care: - vitamins daily -Elevated 1 hour and 3 hour, GDM A2 -Tdap given 08/03 -Declines flu vaccine ?? 5. Other issues: -Previous x2: Consider active type and screen day of delivery -Asthma: Albuterol nebulizer PRN wheezing, avoid Hemabate -Marijuana use: TEREZA upon admission positive for cannabinoids only -History of depression: Will need 2 week depression screen -Constipation: Colace scheduled, Miralax PRN Patient discussed on Multidisciplinary Rounds. Note written in conjunction with Emerita Rosario, PGY3. DESEAN SOTO MD PGY4 08/13/2017 Associated attestation - Emanuel Barrett MD - 08/19/2017 8:57 AM EST I have seen and examined the patient, providing beck components as outlined below. I have reviewed the resident???s above note; my evaluation of the patient is below: 29 4/7 weeks vasa previa. FM felt, no LOF, no bleeding or richard. Afeb VSS Abdomen soft, NT Uterus NT Ext NT I/R 29 4/7 weeks vasa previa status reassuring S/p BMZ S/p magnesium S/p NICU consult GDM well controlled CS for delivery if bleeding occurs EMANUEL BARRETT MD * Desean Soto - 08/12/2017 4:15 PM EST PGY4 NST Review NST Fetus A 08/12/2017 HR (Beats/Min) 150 HR Variability moderate (amplitude range 6 to 25 bpm) HR Accelerations present HR Decelerations episodic;variable Contraction Frequency (Minutes) None Nonstress Test Interpretation Reactive <32 week: two 10 bpm accelerations lasting 10 seconds Overall Impression Reassuring for gestational age Comments 2 shallow variable decelerations, short period of minimal variability DESEAN SOTO MD PGY4 08/12/2017 Associated attestation - Obdulia Crenshaw MD - 08/12/2017 5:42 PM EST I reviewed this NST and agree with the above note and interpretation. Obdulia Crenshaw MD * Cat Pena - 08/12/2017 11:28 AM EST Checked on pt at 0700, 0800, 0900, pt resting in bed with eyes closed respirations easy and regular. Woke pt at 1000, for her medications. Pt states I will call you when I am ready to take any medications, right now I am sleeping and do not want to be disturbed. * Desean Soto - 08/12/2017 6:24 AM EST Images from the original note were not included. Obstetrical Antepartum Progress Note Pam Lake is a 27 y.o. woman at 29w3d with an CHITRA of 10/25/2017, admitted for monitoring in the setting of known vasa previa. This is hospital day #16. Active Problems: Patient Active Problem List Diagnosis ??? Asthma ??? Vasa previa Overview Note: 0.9cm lateral to internal os ??? Low-lying placenta ??? Insulin controlled gestational diabetes mellitus (GDM): diagnosed at 7 weeks gestation ??? Previous section x 2 24 Hour Events -Reactive NST yesterday -US scheduled for today Subjective: Awoken from sleep. Pam reports she's feeling well. No bleeding, loss of fluid, ordecreased movement. No cramping overnight. Review of Systems Obstetric Review of Systems Total Weight Gain this 2.268 kg (5 lb) Movement: normal Contractions: none Leaking: None Bleeding; none now Preeclampsia signs and symptoms: None Physical Exam BP 120/59 Pulse 88 Temp 36.9 ??C (98.4 ??F) (Oral) Resp 17 Ht (!) 149.9 cm (4' 11.02) Wt(!) 102.6 kg (226 lb 3.1 oz) SpO2 100% BMI 45.66 kg/m2 Gen: appears well, NAD, sleeping when we entered room CV: RRR, no murmurs/rubs/gallops Pulm: CTAB, no wheezes/crackles Uterus: non-tender Cervix: Deferred Ext: Warm, well perfused, non-tender, no edema Heart Rate Interpretation: Reactive tracing yesterday, please see separate documentation for today. Most Recent Ultrasound Date: 08/11/17 GA at US: 29w2d EFW: 1349 grams, 64%ile Growth: Normal for gestational age Amniotic fluid volume: SHERI 11.44 cm, MVP 4.69 cm Placenta: Posterior low lying placenta, vasa previa remains Presentation: Cephalic GBS Lab Results Component Value Date GBSSCREEN Neg 07/28/2017 Glucose Accord: Assessment & Plan: Pam Lake is a 27 y.o. woman at 29w3d admitted for monitoring with known vasa previa. Vessels continue to transverse across the cervix. Pam will stay hospitalized until 34 weeks, at which time she will deliver via scheduled section. 1. Vasa Previa -Delivery indications: Progressive labor, non-reassuring status, maternal deterioration -Tocolysis: Not indicated -GBS status: Negative (will on 09/01/17 at 32 weeks) - status: NST once daily, ultrasound to be repeated today, 08/11 to check for resolution -Steroid status: Second dose 07/29, complete 07/30 -Magnesium for neuro protection: Not indicated -Consultations: neonatology and anesthesiology -Consents obtained: ?? 2. GDM A2: Currently on 22 units nightly and 6 units every morning of NPH insulin. Glucose elevatedpost-prandially to 150 mg/dL two days ago, but improved to 120 yesterday. Fasting for the last three days has been 95-97 mg/dL. Due to elevated fasting glucose, will raise nightly dose to 24 units. -FSBS fasting and post-prandial ?? 3. contraception plan: -Desires 6 week Mirena ?? 4. Routine care: - vitamins daily -Elevated 1 hour and 3 hour, GDM A2 -Tdap given 08/03 -Declines flu vaccine ?? 5. Other issues: -Previous x2: Consider active type and screen day of delivery -Asthma: Albuterol nebulizer PRN wheezing, avoid Hemabate -Marijuana use: TEREZA upon admission positive for cannabinoids only -History of depression: Will need 2 week depression screen -Constipation: Colace scheduled, Miralax PRN Patient discussed on Multidisciplinary Rounds. Note written in conjunction with Emerita Rosario, PGY3. DESEAN SOTO MD PGY4 08/12/2017 Associated attestation - Emanuel Barrett MD - 08/19/2017 8:57 AM EST I have seen and examined the patient, providing beck components as outlined below. I have reviewed the resident???s above note; my evaluation of the patient is below: 29 3/7 weeks vasa previa. FM felt, no LOF, no bleeding or richard. Afeb VSS Abdomen soft, NT Uterus NT Ext NT I/R 29 3/7 weeks vasa previa status reassuring S/p BMZ S/p magnesium S/p NICU consult GDM well controlled CS for delivery if bleeding occurs EMANUEL BARRETT MD * Emerita Rosario - 08/11/2017 5:38 PM EST NST Progress Note: NST Fetus A 08/11/2017 HR (Beats/Min) 145 HR Variability moderate (amplitude range 6 to 25 bpm) HR Accelerations present;greater than/equal to 10 bpm (32 wks gest or less);lasts at least 10seconds (32 wks gest or less) HR Decelerations present;variable;intermittent Contraction Frequency (Minutes) None Nonstress Test Interpretation Reactive <32 week: two 10 bpm accelerations lasting 10 seconds Overall Impression Reassuring for gestational age Comments Two short variable decelerations noted during the NST, with rapid return to baseline EMERITA ROSARIO MD PGY3 08/11/17 Associated attestation - Percy Huerta MD - 08/11/2017 6:40 PM EST I personally reviewed the FHR Tracing and agree with the Resident???s interpretation. PERCY HUERTA MD * Jacqueline Paez - 08/11/2017 1:59 PM EST Therapeutic massage given by Karla Irizarry LMT. Pam receptive and appreciative. Prior to session anxiety rated 3/10; after session 2/10. [facility] Team will try and see 1-2x/week. * Desean Soto - 08/11/2017 7:06 AM EST Images from the original note were not included. Obstetrical Antepartum Progress Note Pam Lake is a 27 y.o. woman at 29w2d with an CHITRA of 10/25/2017, admitted for monitoring in the setting of known vasa previa. This is hospital day #15. Active Problems: Patient Active Problem List Diagnosis ??? Asthma ??? Vasa previa Overview Note: 0.9cm lateral to internal os ??? Low-lying placenta ??? Insulin controlled gestational diabetes mellitus (GDM): diagnosed at 7 weeks gestation ??? Previous section x 2 24 Hour Events -Reactive NST yesterday -US scheduled for today Subjective: Pam reports she's feeling well. No bleeding, loss of fluid, or decreased movement. No cramping overnight. Review of Systems Obstetric Review of Systems Total Weight Gain this 2.268 kg (5 lb) Movement: normal Contractions: none Leaking: None Bleeding; none now Preeclampsia signs and symptoms: None Physical Exam BP 108/61 Pulse 80 Temp 37 ??C (98.6 ??F) (Oral) Resp 17 Ht (!) 149.9 cm (4' 11.02) Wt (!) 102.6 kg (226 lb 3.1 oz) SpO2 100% BMI 45.66 kg/m2 Gen: appears well, NAD, sleeping when we entered room CV: RRR, no murmurs/rubs/gallops Pulm: CTAB, no wheezes/crackles Uterus: non-tender Cervix: Deferred Ext: Warm, well perfused, non-tender, no edema Heart Rate Interpretation: Reactive tracing yesterday, please see separate documentation for today. Most Recent Ultrasound Date: 07/28/17 GA at US: 27w2d EFW: 969 grams, 53%ile Growth: Normal for gestational age Amniotic fluid volume: SHERI 8.69 cm, MVP 5.4 cm Placenta: Left lateral and posterior low lying placenta, umbilical blood vessels run immediately adjacent to the cervix, consistent with vasa previa Presentation: Cephalic GBS Lab Results Component Value Date GBSSCREEN Neg 07/28/2017 Glucose Accord: Assessment & Plan: Pam Lake is a 27 y.o. woman at 29w2d admitted for monitoring with known vasa previa. Vessels traverse adjacent to the cervical os on US 07/28/17, plan for repeat ultrasound today to evaluate vessel location. If they have moved from the cervix, may be discharged. 1. Vasa Previa -Delivery indications: Progressive labor, non-reassuring status, maternal deterioration -Tocolysis: Not indicated -GBS status: Negative (will on 09/01/17 at 32 weeks) - status: NST once daily, ultrasound to be repeated today, 08/11 to check for resolution -Steroid status: Second dose 07/29, complete 07/30 -Magnesium for neuro protection: Not indicated -Consultations: neonatology and anesthesiology -Consents obtained: ?? 2. GDM A2: Currently on 22 units nightly and 6 units every morning of NPH insulin, with glucose in the 80s fasting and low 100s-140s post-prandially. -FSBS fasting and post-prandial ?? 3. contraception plan: -Desires 6 week Mirena ?? 4. Routine care: - vitamins daily -Elevated 1 hour and 3 hour, GDM A2 -Tdap given 08/03 -Declines flu vaccine ?? 5. Other issues: -Previous x2: Consider active type and screen day of delivery -Asthma: Albuterol nebulizer PRN wheezing, avoid Hemabate -Marijuana use: TEREZA upon admission positive for cannabinoids only -History of depression: Will need 2 week depression screen -Constipation: Colace scheduled, Miralax PRN Patient discussed on Multidisciplinary Rounds. Note written in conjunction with Emerita Rosario, PGY3. DESEAN SOTO MD PGY4 08/11/2017 Associated attestation - Emanuel Barrett MD - 08/19/2017 8:57 AM EST I have seen and examined the patient, providing beck components as outlined below. I have reviewed the resident???s above note; my evaluation of the patient is below: 29 2/7 weeks vasa previa. FM felt, no LOF, no bleeding or richard. Afeb VSS Abdomen soft, NT Uterus NT Ext NT I/R 29 2/7 weeks vasa previa status reassuring S/p BMZ S/p magnesium S/p NICU consult GDM well controlled CS for delivery if bleeding occurs EMANUEL BARRETT MD * Emerita Rosario - 08/10/2017 12:53 PM EST NST Note: NST Fetus A 08/10/2017 HR (Beats/Min) 150 HR Variability moderate (amplitude range 6 to 25 bpm) HR Accelerations greater than/equal to 10 bpm (32 wks gest or less);lasts at least 10 seconds(32 wks gest or less);present HR Decelerations variable;intermittent Contraction Frequency (Minutes) None Nonstress Test Interpretation Reactive <32 week: two 10 bpm accelerations lasting 10 seconds Overall Impression Reassuring for gestational age Comments Infrequent variable decelerations that rapidly return to baseline, overall reassuring due to variability EMERITA ROSARIO MD PGY3 08/10/17 Associated attestation - Obdulia Crenshaw MD - 08/10/2017 3:30 PM EST I reviewed this NST and agree with the above note and interpretation. Obdulia Crenshaw MD * Stephanie oMseley MSW - 08/10/2017 11:59 AM EST Social Work Note Office of Care Management HUMAN RESOURCES PSYCHOLOGIST met with pt at bedside to check in with her. Pt reports she is doing well, just tired. Presentsno needs at this time. Plan: HUMAN RESOURCES PSYCHOLOGIST informed pt she would look into gas card from [facility] for this week. DIEGO Ruiz Pager: [phone] * Emerita Rosario Rosie - 08/10/2017 11:01 AM EST Images from the original note were not included. Obstetrical Antepartum Progress Note Pam Lake is a 27 y.o. woman at 29w1d with an CHITRA of 10/25/2017, admitted for monitoring in the setting of known vasa previa. This is hospital day #14. Active Problems: Patient Active Problem List Diagnosis ??? Asthma ??? Vasa previa Overview Note: 0.9cm lateral to internal os ??? Low-lying placenta ??? Insulin controlled gestational diabetes mellitus (GDM): diagnosed at 7 weeks gestation ??? Previous section x 2 24 Hour Events -Reactive NST yesterday Subjective: Pam reports she's feeling well. No bleeding, loss of fluid, or decreased movement. No cramping overnight. She walked off the floor for 2 hours yesterday afternoon. Discussed recommendations to stay [facility] while admitted due to potential dangerous outcome ifvaginal bleeding occurs while off the unit, though ultimately the decision is hers. Review of Systems Obstetric Review of Systems Total Weight Gain this 2.268 kg (5 lb) Movement: normal Contractions: none Leaking: None Bleeding; none now Preeclampsia signs and symptoms: None Physical Exam BP 104/43 Pulse 108 Temp 36.7 ??C (98.1 ??F) (Oral) Resp 20 Ht (!) 150 cm (4' 11.06) Wt (!) 104.8 kg (231 lb 0.7 oz) SpO2 97% BMI 46.58 kg/m2 Gen: appears well, NAD, sleeping when we entered room CV: RRR, no murmurs/rubs/gallops Pulm: CTAB, no wheezes/crackles Uterus: non-tender Cervix: Deferred Ext: Warm, well perfused, non-tender, no edema Heart Rate Interpretation: Reactive tracing yesterday, please see separate documentation for today. Most Recent Ultrasound Date: 07/28/17 GA at US: 27w2d EFW: 969 grams, 53%ile Growth: Normal for gestational age Amniotic fluid volume: SHERI 8.69 cm, MVP 5.4 cm Placenta: Left lateral and posterior low lying placenta, umbilical blood vessels run immediately adjacent to the cervix, consistent with vasa previa Presentation: Cephalic GBS Lab Results Component Value Date GBSSCREEN Neg 07/28/2017 Glucose Accord: Assessment & Plan: Pam Lake is a 27 y.o. woman at 29w1d admitted for monitoring with known vasa previa. Vessels traverse adjacent to the cervical os on US 07/28/17, plan for repeat ultrasound tomorrow to evaluate vessel location. If they have moved from the cervix, may be discharged tomorrow. 1. Vasa Previa -Delivery indications: Progressive labor, non-reassuring status, maternal deterioration -Tocolysis: Not indicated -GBS status: Negative (will on 09/01/17 at 32 weeks) - status: NST once daily, ultrasound to be repeated 08/11 to check for resolution -Steroid status: Second dose 07/29, complete 07/30 -Magnesium for neuro protection: Not indicated -Consultations: neonatology and anesthesiology -Consents obtained: ?? 2. GDM A2: Currently on 22 units nightly and 6 units every morning of NPH insulin, with glucose in the 80s fasting and low 100s-140s post-prandially. -FSBS fasting and post-prandial ?? 3. contraception plan: -Desires 6 week Mirena ?? 4. Routine care: - vitamins daily -Elevated 1 hour and 3 hour, GDM A2 -Tdap given 08/03 -Declines flu vaccine ?? 5. Other issues: -Previous x2: Consider active type and screen day of delivery -Asthma: Albuterol nebulizer PRN wheezing, avoid Hemabate -Marijuana use: TEREZA upon admission positive for cannabinoids only -History of depression: Will need 2 week depression screen -Constipation: Colace scheduled, Miralax PRN Patient discussed on Multidisciplinary Rounds. EMERITA ROSARIO MD PGY3 08/10/2017 Associated attestation - Emanuel Barrett MD - 08/19/2017 8:56 AM EST I have seen and examined the patient, providing beck components as outlined below. I have reviewed the resident???s above note; my evaluation of the patient is below: 29 1/7 weeks vasa previa. FM felt, no LOF, no bleeding or richard. Afeb VSS Abdomen soft, NT Uterus NT Ext NT I/R 29 1/7 weeks vasa previa status reassuring S/p BMZ S/p magnesium S/p NICU consult GDM well controlled CS for delivery if bleeding occurs EMANUEL BARRETT MD * Belkis Strong RN - 08/09/2017 9:06 PM EST VS abnormal and were repeated. Sepsis page sounded for initial set of vital signs. Pt was assessed.Pt has no complaints, does not fell ill in any way, and assessment was benign. Discussed with Dr. Waterman. Original set of vitals are questioned to be erroneous. No new orders were received. Will continue to monitor. * Emerita Rosario - 08/09/2017 5:23 PM EST NST Note: NST Fetus A 08/09/2017 HR (Beats/Min) 145 HR Variability moderate (amplitude range 6 to 25 bpm) HR Accelerations greater than/equal to 10 bpm (32 wks gest or less);lasts at least 10 seconds(32 wks gest or less) HR Decelerations intermittent;variable Contraction Frequency (Minutes) None Nonstress Test Interpretation Reactive <32 week: two 10 bpm accelerations lasting 10 seconds Overall Impression Reassuring for gestational age Comments - EMERITA ROSARIO MD PGY3 08/09/17 Associated attestation - Emanuel Barrett MD - 08/19/2017 8:55 AM EST I was the attending physician supervising the resident in the above care and I was present with theresident for the entire procedure. EMANUEL BARRETT MD * Emerita Rosario - 08/09/2017 7:33 AM EST Images from the original note were not included. Obstetrical Antepartum Progress Note Pam Lake is a 27 y.o. woman at 29w0d with an CHITRA of 10/25/2017, admitted for monitoring in the setting of known vasa previa. This is hospital day #13. Active Problems: Patient Active Problem List Diagnosis ??? Asthma ??? Vasa previa Overview Note: 0.9cm lateral to internal os ??? Low-lying placenta ??? Insulin controlled gestational diabetes mellitus (GDM): diagnosed at 7 weeks gestation ??? Previous section x 2 24 Hour Events -Reactive NST yesterday Subjective: Pam reports she's feeling well. No bleeding, loss of fluid, decreased movement. No cramping overnight. Slept well. Review of Systems Obstetric Review of Systems Total Weight Gain this 2.268 kg (5 lb) Movement: normal Contractions: none Leaking: None Bleeding; none now Preeclampsia signs and symptoms: None Physical Exam BP 110/58 Pulse 88 Temp 36.8 ??C (98.2 ??F) (Oral) Resp 18 Ht (!) 150 cm (4' 11.06) Wt (!) 104.8 kg (231 lb 0.7 oz) SpO2 100% BMI 46.58 kg/m2 Gen: appears well, NAD, sleeping when we entered room CV: RRR, no murmurs/rubs/gallops Pulm: CTAB, no wheezes/crackles Uterus: non-tender Cervix: Deferred Ext: Warm, well perfused, non-tender, no edema Heart Rate Interpretation: Reactive tracing yesterday, please see separate documentation for today. Most Recent Ultrasound Date: 07/28/17 GA at US: 27w2d EFW: 969 grams, 53%ile Growth: Normal for gestational age Amniotic fluid volume: SHERI 8.69 cm, MVP 5.4 cm Placenta: Left lateral and posterior low lying placenta, umbilical blood vessels run immediately adjacent to the cervix, consistent with vasa previa Presentation: Cephalic GBS Lab Results Component Value Date GBSSCREEN Neg 07/28/2017 Glucose Accord: Assessment & Plan: Pam Lake is a 27 y.o. woman at 29w0d admitted for monitoring with known vasa previa. Vessels traverse adjacent to the cervical os on US 07/28/17. 1. Vasa Previa -Delivery indications: Progressive labor, non-reassuring status, maternal deterioration -Tocolysis: Not indicated -GBS status: Negative (will on 09/01/17 at 32 weeks) - status: NST once daily, ultrasound to be repeated 08/11 to check for resolution -Steroid status: Second dose 07/29, complete 07/30 -Magnesium for neuro protection: Not indicated -Consultations: neonatology and anesthesiology -Consents obtained: ?? 2. GDM A2: Currently on 22 units nightly and 6 units every morning of NPH insulin, with glucose in the 80s fasting and low 100s-140s post-prandially. -FSBS fasting and post-prandial ?? 3. contraception plan: -Desires 6 week Mirena ?? 4. Routine care: - vitamins daily -Tdap given 08/03 -Declines flu vaccine - labs obtained yesterday from OSH ?? 5. Other issues: -Previous x2: Consider active type and screen day of delivery -Asthma: Albuterol nebulizer PRN wheezing, avoid Hemabate -Marijuana use: TEREZA upon admission positive for cannabinoids only -History of depression: Will need 2 week depression screen -Constipation: Pericolace scheduled added today, continue Miralax PRN Patient discussed on Multidisciplinary Rounds. EMERITA ROSARIO MD PGY3 08/09/2017 Associated attestation - Emanuel Barrett MD - 08/19/2017 8:54 AM EST I have seen and examined the patient, providing beck components as outlined below. I have reviewed the resident???s above note; my evaluation of the patient is below: 29 0/7 weeks vasa previa. FM felt, no LOF, no bleeding or richard. Afeb VSS Abdomen soft, NT Uterus NT Ext NT I/R 29 0/7 weeks vasa previa status reassuring S/p BMZ S/p magnesium S/p NICU consult GDM well controlled CS for delivery if bleeding occurs EMANUEL BARRETT MD * Kaylen Gabriel MD - 08/08/2017 3:13 PM EST NST Note NST Fetus A 08/08/2017 HR (Beats/Min) 155 HR Variability moderate (amplitude range 6 to 25 bpm) HR Accelerations present HR Decelerations variable Contraction Frequency (Minutes) none Nonstress Test Interpretation Reactive <32 week: two 10 bpm accelerations lasting 10 seconds Overall Impression Reassuring for gestational age Comments few shallow, short variable decelerations consistent with gestational age. Baseline appeared high at start of NST, 160-165, but settled out quickly to 155, was likely prolonged acceleration Reactive, reassuring NST Repeat daily KAYLEN GABRIEL MD PGY4 08/08/2017 Associated attestation - Percy Huerta MD - 08/08/2017 6:12 PM EST I personally reviewed the FHR Tracing and agree with the Resident???s interpretation. PERCY HUERTA MD * Emerita Rosario - 08/08/2017 5:44 AM EST Images from the original note were not included. Obstetrical Antepartum Progress Note Pam Lake is a 27 y.o. woman at 28w6d with an CHITRA of 10/25/2017, admitted for monitoring in the setting of known vasa previa. This is hospital day #12. Active Problems: Patient Active Problem List Diagnosis ??? Asthma ??? Vasa previa Overview Note: 0.9cm lateral to internal os ??? Low-lying placenta ??? Insulin controlled gestational diabetes mellitus (GDM): diagnosed at 7 weeks gestation ??? Previous section x 2 24 Hour Events -Reactive NST yesterday Subjective: Pam reports she's feeling well. No bleeding, loss of fluid, decreased movement. No cramping overnight. Review of Systems Obstetric Review of Systems Total Weight Gain this 2.268 kg (5 lb) Movement: normal Contractions: none Leaking: None Bleeding; none now Preeclampsia signs and symptoms: None Physical Exam BP 112/53 Pulse 86 Temp 36.9 ??C (98.4 ??F) (Oral) Resp 16 Ht (!) 150 cm (4' 11.06) Wt (!) 104.8 kg (231 lb 0.7 oz) SpO2 98% BMI 46.58 kg/m2 Gen: appears well, NAD, sleeping when we entered room CV: RRR, no murmurs/rubs/gallops Pulm: CTAB, no wheezes/crackles Uterus: non-tender Cervix: Deferred Ext: Warm, well perfused, non-tender, no edema Heart Rate Interpretation: Reactive tracing yesterday, please see separate documentation for today. Most Recent Ultrasound Date: 07/28/17 GA at US: 27w2d EFW: 969 grams, 53%ile Growth: Normal for gestational age Amniotic fluid volume: SHERI 8.69 cm, MVP 5.4 cm Placenta: Left lateral and posterior low lying placenta, umbilical blood vessels run immediately adjacent to the cervix, consistent with vasa previa Presentation: Cephalic GBS Lab Results Component Value Date GBSSCREEN Neg 07/28/2017 Glucose Accord: Assessment & Plan: Pam Lake is a 27 y.o. woman at 28w6d admitted for monitoring with known vasa previa. Vessels traverse adjacent to the cervical os on US 07/28/17. 1. Vasa Previa -Delivery indications: Progressive labor, non-reassuring status, maternal deterioration -Tocolysis: Not indicated -GBS status: Negative (will on 09/01/17 at 32 weeks) - status: NST once daily, ultrasound to be repeated 08/11 to check for resolution -Steroid status: Second dose 07/29, complete 07/30 -Magnesium for neuro protection: Not indicated -Consultations: neonatology and anesthesiology -Consents obtained: ?? 2. GDM A2: Currently on 22 units nightly and 6 units every morning of NPH insulin, with glucose in the 80s fasting and low 100s post-prandially. -FSBS fasting and post-prandial -Sensitive sliding scale insulin ordered for coverage post-prandial ?? 3. contraception plan: -Desires 6 week Mirena ?? 4. Routine care: - vitamins daily -Tdap 08/03. -Declines flu vaccine - labs obtained yesterday from OSH ?? 5. Other issues: -Previous x2: Consider active type and screen day of delivery -Asthma: Albuterol nebulizer PRN wheezing, avoid Hemabate -Marijuana use: TEREZA upon admission positive for cannabinoids only -History of depression: Will need 2 week depression screen -Constipation: Pericolace scheduled added today, continue Miralax PRN Patient discussed on Multidisciplinary Rounds. EMERITA ROSARIO MD PGY3 08/08/2017 Associated attestation - Emanuel Barrett MD - 08/19/2017 8:54 AM EST I have seen and examined the patient, providing beck components as outlined below. I have reviewed the resident???s above note; my evaluation of the patient is below: 28 6/7 weeks vasa previa. FM felt, no LOF, no bleeding or richard. Afeb VSS Abdomen soft, NT Uterus NT Ext NT I/R 28 6/7 weeks vasa previa status reassuring S/p BMZ S/p magnesium S/p NICU consult GDM well controlled CS for delivery if bleeding occurs EMANUEL BARRETT MD * Emerita Rosario - 08/07/2017 7:50 PM EST NST Daily Note NST Interpretation Start time: 1521 hrs Number of fetuses: 1 Baseline: 150 bpm Variability: moderate Accelerations: Present, lasting 10 seconds and rising 10 beats per minute Decelerations: Intermittent, infrequent variable decelerations with rapid return to baseline. Contractions: none Result: Reactive Stop time: 1541 hrs EMERITA ROSARIO MD PGY3 08/07/17 Associated attestation - eYny Waterman MD - 08/08/2017 9:03 AM EST I personally reviewed and interpreted this NST. Yeny Waterman MD * Bridget Leonard, RN - 08/07/2017 5:48 PM EST Pt with c/o pain at IV stabilization device site. Pt stating the Stat lock hurts. Pt had manipulated PIV site. Partially removed PIV dressing. Dressing changed, new Stat lock applied to secure PIV. Pt again stating it hurt. Dressing again changed and CHG dressing applied. No stat lock reapplied. Ptappears more comfortable. * Wang Barbour Elba - 08/07/2017 2:49 PM EST Nutrition Services - Follow-up Note Pam Lake : 1990 AGE: 27 y.o. Patient Active Problem List Diagnosis Date Noted ??? Hospital-Asthma 07/28/2017 ??? Hospital-Vasa previa 07/09/2017 ??? Low-lying placenta 07/09/2017 ??? Hospital-Insulin controlled gestational diabetes mellitus (GDM): diagnosed at 7 weeks ubuaqryld65/06/2017 ??? Hospital-Previous section x 2 05/29/2017 Reason for Nutrition Intervention: Follow-up Diet Order: Gestational, CHO2 Appetite: Ok for the most part-per pt Food allergies: NKFA Chewing/Swallowing difficulty: none noted Ht Readings from Last 3 Encounters: 07/28/17 (!) 150 cm (4' 11.06) 06/04/17 (!) 149.9 cm (4' 11) Wt Readings from Last 3 Encounters: 07/28/17 (!) 104.8 kg (231 lb 0.7 oz) 07/28/17 (!) 104.8 kg (231 lb) 07/09/17 (!) 104.1 kg (229 lb 9.6 oz) Body mass index is 46.58 kg/(m^2). Vitamins/Minerals: noted. Tums noted. Assessment: Patient denies further need for nutrition education. Pt seen for nutrition follow up. She reported a fair appetite without difficulty chewing or swallowing. Nursing documentation notes between 75-100% PO intake. She is tolerating her current diet without nausea or vomiting. Pt mentionedthat she was experiencing nausea early this morning but stated she declined Zofran but did have Tums. Last noted BM 08/05, bowel med's noted. Discussed snacks between meals with patient. Pt stated that she does not eat the snacks she has sent to her between meals, pt is aware of the unit kitchenette and the high protein and low carb snacks that are available. Pt had no further questions at this time. Encouraged pt to contact Food and Nutrition services with any questions that may arise. Nutrition Plan: Continue current diet. Encourage good po intake. Monitor weight. Support and encouragement provided. Nutrition services to follow weekly thru hospital course unless consulted in the interim. Wang Barbour DT * Desean Soto - 08/07/2017 5:20 AM EST Images from the original note were not included. Obstetrical Antepartum Progress Note Pam Lake is a 27 y.o. woman at 28w5d with an CHITRA of 10/25/2017, admitted for monitoring in the setting of known vasa previa. This is hospital day #11. Active Problems: Patient Active Problem List Diagnosis ??? Asthma ??? Vasa previa Overview Note: 0.9cm lateral to internal os ??? Low-lying placenta ??? Insulin controlled gestational diabetes mellitus (GDM): diagnosed at 7 weeks gestation ??? Previous section x 2 24 Hour Events -Reactive NST yesterday Subjective: Pam reports she's feeling well. No bleeding, loss of fluid, decreased movement. No cramping overnight. Review of Systems Obstetric Review of Systems Total Weight Gain this 2.268 kg (5 lb) Movement: normal Contractions: none Leaking: None Bleeding; none now Preeclampsia signs and symptoms: None Physical Exam BP (!) 73/42 Pulse 79 Temp (P) 37.1 ??C (98.8 ??F) (Oral) Resp (P) 16 Ht (!) 150 cm (4' 11.06) Wt (!) 104.8 kg (231 lb 0.7 oz) SpO2 93% BMI 46.58 kg/m2 Gen: appears well, NAD, sleeping when we entered room CV: RRR, no murmurs/rubs/gallops Pulm: CTAB, no wheezes/crackles Uterus: non-tender Cervix: Deferred Ext: Warm, well perfused, non-tender, no edema Heart Rate Interpretation: Reactive tracing yesterday, please see separate documentation for today. Most Recent Ultrasound Date: 07/28/17 GA at US: 27w2d EFW: 969 grams, 53%ile Growth: Normal for gestational age Amniotic fluid volume: SHERI 8.69 cm, MVP 5.4 cm Placenta: Left lateral and posterior low lying placenta, umbilical blood vessels run immediately adjacent to the cervix, consistent with vasa previa Presentation: Cephalic GBS Lab Results Component Value Date GBSSCREEN Neg 07/28/2017 Glucose Accord: Assessment & Plan: Pam Lake is a 27 y.o. woman at 28w5d admitted for monitoring with known vasa previa. Vessels traverse adjacent to the cervical os on US 07/28/17. 1. Vasa Previa -Delivery indications: Progressive labor, non-reassuring status, maternal deterioration -Tocolysis: Not indicated -GBS status: Negative (will on 09/01/17 at 32 weeks) - status: NST once daily, ultrasound to be repeated 08/11 to check for resolution -Steroid status: Second dose 07/29, complete 07/30 -Magnesium for neuro protection: Not indicated -Consultations: neonatology and anesthesiology -Consents obtained: ?? 2. GDM A2: Currently on 22 units nightly and 6 units every morning of NPH insulin, with glucose in the 80s fasting and low 100s post-prandially. -FSBS fasting and post-prandial -Sensitive sliding scale insulin ordered for coverage post-prandial ?? 3. contraception plan: -Desires 6 week Mirena ?? 4. Routine care: - vitamins daily -Tdap 08/03. -Declines flu vaccine - labs obtained yesterday from OSH ?? 5. Other issues: -Previous x2: Consider active type and screen day of delivery -Asthma: Albuterol nebulizer PRN wheezing, avoid Hemabate -Marijuana use: TEREZA upon admission positive for cannabinoids only -History of depression: Will need 2 week depression screen -Constipation: Pericolace scheduled added today, continue Miralax PRN Patient discussed on Multidisciplinary Rounds. Note written in conjunction with Emerita Rosario, PGY3 DESEAN SOTO MD PGY4 08/07/2017 Associated attestation - Crow Vasquez MD - 08/07/2017 2:06 PM EST Maternal Medicine Attending Note Patient: Pam Lake I performed a history and physical exam of the patient and discussed her management with Dr. Soto. I reviewed Dr. Soto's note and agree with the documented findings and plan of care. My evaluation is as below: 28w5d weeks EGA; Patient admitted with complicated by vasa previa. LOS: 10 days Subjective: No complaints. Good movement. No contractions. Last value Range last 8 hrs Temperature Temp: 37.1 ??C (98.8 ??F) Temp: [37.1 ??C (98.8 ??F)] Heart Rate Heart Rate: 83 Heart Rate: [79-83] Blood Pressure BP: (!) 76/52 BP: (60-76)/(20-52) Respiratory Rate Resp: 16 Resp: [16] SpO2 SpO2: 93 % SpO2: [93 %] *Abdomen: Soft, non-tender, not distended *Uterus: Soft, Non-tender *Extremities: Non-tender; no edema *NST: See separate report. Impression: Vasa previa at 28w5d weeks EGA. Plan: Continued in patient management for proximity to OR and NICU due to risk of hemorrhage. Repeat ultrasound on 08/11. Jane Vasquez MD Maternal- Medicine * Desean Soto - 08/06/2017 4:40 PM EST PGY-4 NST Review NST Fetus A 08/06/2017 HR (Beats/Min) 155 HR Variability moderate (amplitude range 6 to 25 bpm) HR Accelerations present HR Decelerations periodic;variable Contraction Frequency (Minutes) None Nonstress Test Interpretation Reactive <32 week: two 10 bpm accelerations lasting 10 seconds Overall Impression Reassuring for gestational age Comments intermittent variable decelerations but overall very reassuring for gestational age DESEAN SOTO MD PGY4 08/06/2017 Associated attestation - Obdulia Crenshaw MD - 08/06/2017 5:32 PM EST I reviewed this NST and agree with the above note and interpretation. Obdulia Crenshaw MD * Emerita Rosario - 08/06/2017 6:30 AM EST Images from the original note were not included. Obstetrical Antepartum Progress Note Pam Lake is a 27 y.o. woman at 28w4d with an HCITRA of 10/25/2017, admitted for monitoring in the setting of known vasa previa. This is hospital day #10. Active Problems: Patient Active Problem List Diagnosis ??? Asthma ??? Vasa previa Overview Note: 0.9cm lateral to internal os ??? Low-lying placenta ??? Insulin controlled gestational diabetes mellitus (GDM): diagnosed at 7 weeks gestation ??? Previous section x 2 24 Hour Events -Reactive NST yesterday Subjective: Pam reports she's feeling well. No bleeding, loss of fluid, decreased movement. No cramping overnight. Review of Systems Obstetric Review of Systems Total Weight Gain this 2.268 kg (5 lb) Movement: normal Contractions: none Leaking: None Bleeding; none now Preeclampsia signs and symptoms: None Physical Exam BP 102/52 Pulse 129 Temp 36.6 ??C (97.9 ??F) (Oral) Resp 16 Ht (!) 150 cm (4' 11.06) Wt (!) 104.8 kg (231 lb 0.7 oz) SpO2 98% BMI 46.58 kg/m2 Gen: appears well, NAD, sleeping when we entered room CV: RRR, no murmurs/rubs/gallops Pulm: CTAB, no wheezes/crackles Uterus: non-tender Cervix: Deferred Ext: Warm, well perfused, non-tender, no edema Heart Rate Interpretation: Reactive tracing yesterday, please see separate documentation for today. Most Recent Ultrasound Date: 07/28/17 GA at US: 27w2d EFW: 969 grams, 53%ile Growth: Normal for gestational age Amniotic fluid volume: SHERI 8.69 cm, MVP 5.4 cm Placenta: Left lateral and posterior low lying placenta, umbilical blood vessels run immediately adjacent to the cervix, consistent with vasa previa Presentation: Cephalic GBS Lab Results Component Value Date GBSSCREEN Neg 07/28/2017 Glucose Accord: Assessment & Plan: Pam Lake is a 27 y.o. woman at 28w4d admitted for monitoring with known vasa previa. Vessels traverse adjacent to the cervical os on US 07/28/17. 1. Vasa Previa -Delivery indications: Progressive labor, non-reassuring status, maternal deterioration -Tocolysis: Not indicated -GBS status: Negative (will on 09/01/17 at 32 weeks) - status: NST once daily, ultrasound to be repeated 08/11 to check for resolution -Steroid status: Second dose 07/29, complete 07/30 -Magnesium for neuro protection: Not indicated -Consultations: neonatology and anesthesiology -Consents obtained: ?? 2. GDM A2: Currently on 22 units nightly and 6 units every morning of NPH insulin, with glucose in the 80s fasting and low 100s post-prandially. -FSBS fasting and post-prandial -Sensitive sliding scale insulin ordered for coverage post-prandial ?? 3. contraception plan: -Desires 6 week Mirena ?? 4. Routine care: - vitamins daily -Tdap yesterday. -Declines flu vaccine - labs obtained yesterday from OSH ?? 5. Other issues: -Previous x2: Consider active type and screen day of delivery -Asthma: Albuterol nebulizer PRN wheezing, avoid Hemabate -Marijuana use: TEREZA upon admission positive for cannabinoids only -History of depression: Will need 2 week depression screen -Constipation: Pericolace scheduled added today, continue Miralax PRN Patient discussed on Multidisciplinary Rounds. EMERITA ROSARIO MD PGY3 08/06/2017 Associated attestation - Crow Vasquez MD - 08/06/2017 9:36 AM EST Maternal Medicine Attending Note Patient: Pam Lake I performed a history and physical exam of the patient and discussed her management with Dr. rosario.I reviewed Dr. Rosario's note and agree with the documented findings and plan of care. My evaluation is as below: 28w4d weeks EGA; Patient admitted with complicated by vasa previa. LOS: 9 days Subjective: No complaints. Good movement. No contractions. Last value Range last 8 hrs Temperature Temp: 36.6 ??C (97.9 ??F) Temp: -- Heart Rate Heart Rate: 129 Heart Rate: -- Blood Pressure BP: 102/52 BP: -- Respiratory Rate Resp: 16 Resp: -- SpO2 SpO2: 98 % SpO2: -- *Abdomen: Soft, non-tender, not distended *Uterus: Soft, Non-tender *Extremities: Non-tender; no edema *NST: See separate report. Impression: Stable vasa previa at 28w4d weeks EGA. Plan: Continued in patient management for proximity to OR and NICU due to risk of hemorrhage. Jane Vasquez MD Maternal- Medicine * Desean Soto - 08/05/2017 1:24 PM EST PGY-4 NST Review NST Fetus A 08/05/2017 HR (Beats/Min) 150 HR Variability moderate (amplitude range 6 to 25 bpm) HR Accelerations present HR Decelerations periodic;variable Contraction Frequency (Minutes) None Nonstress Test Interpretation Reactive <32 week: two 10 bpm accelerations lasting 10 seconds Overall Impression Reassuring for gestational age Comments Rare shallow variable, periods of discontinuous tracing given active movement DESEAN SOTO MD PGY4 08/05/2017 Associated attestation - Obdulia Crenshaw MD - 08/05/2017 3:17 PM EST I reviewed this NST and agree with the above note and interpretation. Obdulia Crenshaw MD * Desean Soto - 08/05/2017 7:13 AM EST Images from the original note were not included. Obstetrical Antepartum Progress Note Pam Lake is a 27 y.o. woman at 28w3d with an CHITRA of 10/25/2017, admitted for monitoring in the setting of known vasa previa. This is hospital day #9. Active Problems: Patient Active Problem List Diagnosis ??? Asthma ??? Vasa previa Overview Note: 0.9cm lateral to internal os ??? Low-lying placenta ??? Insulin controlled gestational diabetes mellitus (GDM): diagnosed at 7 weeks gestation ??? Previous section x 2 24 Hour Events -Reactive NST yesterday Subjective: Pam reports she's feeling well. No bleeding, loss of fluid, decreased movement. No cramping overnight. She has been constipated, last BM approximately 4 days ago despite the use of Miralax daily. Review of Systems Obstetric Review of Systems Total Weight Gain this 2.268 kg (5 lb) Movement: normal Contractions: none Leaking: None Bleeding; none now Preeclampsia signs and symptoms: None Physical Exam BP 115/63 Pulse 91 Temp 36.9 ??C (98.4 ??F) (Oral) Resp 18 Ht (!) 150 cm (4' 11.06) Wt (!) 104.8 kg (231 lb 0.7 oz) SpO2 98% BMI 46.58 kg/m2 Gen: appears well, NAD CV: RRR, no murmurs/rubs/gallops Pulm: CTAB, no wheezes/crackles Uterus: non-tender Cervix: Deferred Ext: Warm, well perfused, non-tender, no edema Heart Rate Interpretation: Reactive tracing yesterday, please see separate documentation for today. Most Recent Ultrasound Date: 07/28/17 GA at US: 27w2d EFW: 969 grams, 53%ile Growth: Normal for gestational age Amniotic fluid volume: SHERI 8.69 cm, MVP 5.4 cm Placenta: Left lateral and posterior low lying placenta, umbilical blood vessels run immediately adjacent to the cervix, consistent with vasa previa Presentation: Cephalic GBS Lab Results Component Value Date GBSSCREEN Neg 07/28/2017 Glucose Accord: Assessment & Plan: Pam Lake is a 27 y.o. woman at 28w3d admitted for monitoring with known vasa previa. Vessels traverse adjacent to the cervical os on US 07/28/17. 1. Vasa Previa -Delivery indications: Progressive labor, non-reassuring status, maternal deterioration -Tocolysis: Not indicated -GBS status: Negative (will on 09/01/17 at 32 weeks) - status: NST once daily, ultrasound to be repeated 08/11 to check for resolution -Steroid status: Second dose 07/29, complete 07/30 -Magnesium for neuro protection: Not indicated -Consultations: neonatology and anesthesiology -Consents obtained: ?? 2. GDM A2: Currently on 22 units nightly and 6 units every morning of NPH insulin, with glucose in the 80s fasting and low 100s post-prandially. -FSBS fasting and post-prandial -Sensitive sliding scale insulin ordered for coverage post-prandial ?? 3. contraception plan: -Desires 6 week Mirena ?? 4. Routine care: - vitamins daily -Tdap yesterday. -Declines flu vaccine - labs obtained yesterday from OSH ?? 5. Other issues: -Previous x2: Consider active type and screen day of delivery -Asthma: Albuterol nebulizer PRN wheezing, avoid Hemabate -Marijuana use: TEREZA upon admission positive for cannabinoids only -History of depression: Will need 2 week depression screen -Constipation: Pericolace scheduled added today, continue Miralax PRN Patient discussed on Multidisciplinary Rounds. Note written in conjunction with Emerita Rosario, PGY-3 DESEAN SOTO MD PGY4 08/05/2017 Associated attestation - Crow Vasquez MD - 08/05/2017 1:48 PM EST Maternal Medicine Attending Note Patient: Pam Lake I performed a history and physical exam of the patient and discussed her management with Dr. Soto. I reviewed Dr. Soto's note and agree with the documented findings and plan of care. My evaluation is as below: 28w3d weeks EGA; Patient admitted with complicated by vasa previa. LOS: 8 days Subjective: No complaints. Good movement. No contractions. Last value Range last 8 hrs Temperature Temp: 36.9 ??C (98.4 ??F) Temp: [36.9 ??C (98.4 ??F)] Heart Rate Heart Rate: 91 Heart Rate: [91] Blood Pressure BP: 115/63 BP: (115)/(63) Respiratory Rate Resp: 18 Resp: [18] SpO2 SpO2: 98 % SpO2: -- *Abdomen: Soft, non-tender, not distended *Uterus: Soft, Non-tender *Extremities: Non-tender; no edema *NST: See separate report. Impression: Stable vasa previa at 28w3d weeks EGA. Plan: Continued in patient management for proximity to OR and NICU due to risk of hemorrhage. Jane Vasquez MD Maternal- Medicine * Emerita Rosario - 08/04/2017 5:59 PM EST NST Note: NST Fetus A 08/04/2017 HR (Beats/Min) 140 HR Variability moderate (amplitude range 6 to 25 bpm) HR Accelerations lasts at least 10 seconds (32 wks gest or less);greater than/equal to 10 bpm(32 wks gest or less);present HR Decelerations other (see comments) Contraction Frequency (Minutes) None Nonstress Test Interpretation Reactive <32 week: two 10 bpm accelerations lasting 10 seconds Overall Impression Reassuring for gestational age Comments Had a few variable decelerations prior to initiation of this NST, but none on this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 Asthma ??? Vasa previa Overview Note: 0.9cm lateral to internal os ??? Low-lying placenta ??? Insulin controlled gestational diabetes mellitus (GDM): diagnosed at 7 weeks gestation ??? Previous section x 2 24 Hour Events -Reactive NST yesterday Subjective: Pam reports she's feeling well. No bleeding, loss of fluid, decreased movement, nausea, vomiting, or pain/swelling in her legs. No cramping. Review of Systems Obstetric Review of Systems Total Weight Gain this 2.268 kg (5 lb) Movement: normal Contractions: none Leaking: None Bleeding; none now Preeclampsia signs and symptoms: None Physical Exam BP (!) 96/37 Pulse 69 Temp 37 ??C (98.6 ??F) (Oral) Resp 16 Ht (!) 150 cm (4' 11.06) Wt (!) 104.8 kg (231 lb 0.7 oz) SpO2 98% BMI 46.58 kg/m2 Gen: appears well, NAD CV: RRR, no murmurs/rubs/gallops Pulm: CTAB, no wheezes/crackles Uterus: non-tender Cervix: Deferred Ext: Warm, well perfused, non-tender, no edema Heart Rate Interpretation: Reactive tracing yesterday, please see separate documentation for today. Most Recent Ultrasound Date: 07/28/17 GA at US: 27w2d EFW: 969 grams, 53%ile Growth: Normal for gestational age Amniotic fluid volume: SHERI 8.69 cm, MVP 5.4 cm Placenta: Left lateral and posterior low lying placenta, umbilical blood vessels run immediately adjacent to the cervix, consistent with vasa previa Presentation: Cephalic GBS Collected and pending Assessment & Plan: Pam Lake is a 27 y.o. woman at 27w5d admitted for monitoring with known vasa previa. Vessels traverse within 1 cm of the cervical os on US 07/28/17. 1. 1. Vasa Previa -Labs: GBS collected and pending -Delivery indications: Progressive labor, non-reassuring status, maternal deterioration -Tocolysis: Not indicated -GBS status: Collected 07/28/17, pending - status: NST once daily, ultrasound to be repeated 08/11 to check for resolution -Steroid status: Second dose 07/29, complete 07/30 -Magnesium for neuro protection: Not indicated -Consultations: neonatology and anesthesiology -Consents obtained: ?? 2. GDM A2: Currently on 20 units nightly and 6 units every morning of NPH insulin, with glucose in the 80s fasting and low 100s post-prandially. Due to betamethasone dosing, mildly elevated overnightto 130, covered with Moderate sliding scale. -Blood glucose checks q4 hours while receiving steroid dosing -Continue home regimen NPH insulin -Moderate sliding scale insulin ordered for coverage q4 hours while steroids in effect -If no further sliding scale required today, consider discontinuing q4hr checks and changing to herfasting and 1 hr post prandial checks ?? 3. contraception plan: -Desires 6 week Mirena ?? 4. Routine care: - vitamins daily -Tdap at 28 weeks -Refuses flu vaccine - labs obtained yesterday from OSH ?? 5. Other issues: -Previous x2: Consider active type and screen day of delivery -Asthma: Albuterol nebulizer PRN wueezing, avoid Hemabate -Marijuana use: TEREZA upon admission positive for cannabinoids only -History of depression: Will need 2 week depression screen Patient seen and discussed on Multidisciplinary Rounds EMERITA ROSARIO MD PGY3 07/31/2017 Associated attestation - Crow Vasquez MD - 07/31/2017 1:03 PM EST Maternal Medicine Attending Note Patient: Pam Lake I performed a history and physical exam of the patient and discussed her management with Dr. Rosario.I reviewed Dr. rosario's note and agree with the documented findings and plan of care. My evaluation is as below: 27w5d weeks EGA; Patient admitted with complicated by vasa previa. LOS: 3 days Subjective: No complaints. Good movement. No contractions. Last value Range last 8 hrs Temperature Temp: 37.1 ??C (98.8 ??F) Temp: [36.9 ??C (98.4 ??F)-37.1 ??C (98.8 ??F)] Heart Rate Heart Rate: 81 Heart Rate: [80-81] Blood Pressure BP: 93/49 BP: (93-103)/(49-59) Respiratory Rate Resp: 18 Resp: [17-18] SpO2 SpO2: 98 % SpO2: [98 %-100 %] *Abdomen: Soft, non-tender, not distended *Uterus: Soft, Non-tender *Extremities: Non-tender; no edema *NST: See separate report. Impression: Stable vasa previa at 27w5d weeks EGA. Plan: Continued in-patient management for proximity to OR and NICU due to risk of hemorrhage. Jane Vasquez MD Maternal- Medicine * Li Lehman, RD - 07/30/2017 4:15 PM EST NUTRITION SERVICES INPATIENT VISIT FOR Gestational Diabetes Pam Lake is a 27 y.o. female Patient Active Problem List Diagnosis Code ??? Insulin controlled gestational diabetes mellitus (GDM): diagnosed at 7 weeks gestation O24.414 ??? Previous section x 2 Z98.891 ??? Vasa previa O69.4XX0 ??? Low-lying placenta O44.40 ??? Asthma J45.909 Typical daily intake was not reviewed, patient was sleepy and did not want to talk much to this proposal lead writer. Activity Level: sedentary/bedrest BMI before : unknown Estimated body mass index is 46.58 kg/(m^2) as calculated from the following: Height as of this encounter: 150 cm (4' 11.06). Weight as of this encounter: 104.8 kg (231 lb 0.7 oz). Obese: BMI >29 not less than 1800 kcals 15# weight gain Goals of MNT: Carbohydrate controlled meal plan that promotes adequate nutrition and appropriate weight gain, normoglycemia and absence of Ketosis. Provided Nutrition for a Woman with gestational Diabetes and a complete menu nutrient analysis for patient to review at her request. Discussed with pt that since she was diagnosed with GDM in the 1st trimester, she likely had some pre-existing pre-diabetes or DM2 - pat adamantly denies this and says she was tested for diabetes 2 months prior to the and that everything was fine then. Patient was very sleepy this afternoon (my second attempt to see/talk with her). She asked me to leave and come back tonight. I left printed materials with her and said I would try to swing by tomorrow. She says if we cut her carbs anymore she won't do it. I'll have people bring in all my food. This (diet) is hard enough as it is to follow. If pt is a true GDM, I would recommend a GDM diet which is a 30/45/60 with snacks up to 30 CHO in between. However, patient states she would be non- compliant with this. As she is on a CHO level 2, at the very least, she needs a gestational restriction, which I have pended. SCOTT MORFIN * Chely Sin MD - 07/30/2017 3:24 PM EST PGY-4 NST Review NST Fetus A 07/30/2017 HR (Beats/Min) 145 HR Variability moderate (amplitude range 6 to 25 bpm) HR Accelerations present HR Decelerations none Contraction Frequency (Minutes) None Nonstress Test Interpretation Reactive <32 week: two 10 bpm accelerations lasting 10 seconds Overall Impression Reassuring for gestational age Comments - DESEAN SOTO MD PGY4 07/30/2017 I personally reviewed and interpreted this NST. * Emerita Rosario - 07/30/2017 7:10 AM EST Images from the original note were not included. Obstetrical Antepartum Progress Note Pam Lake is a 27 y.o. woman at 27w4d with an CHITRA of 10/25/2017, admitted for monitoring in the setting of known vasa previa. This is hospital day #3. Active Problems: Patient Active Problem List Diagnosis ??? Asthma ??? Vasa previa Overview Note: 0.9cm lateral to internal os ??? Low-lying placenta ??? Insulin controlled gestational diabetes mellitus (GDM): diagnosed at 7 weeks gestation ??? Previous section x 2 24 Hour Events -Reactive NST yesterday Subjective: Pam reports she's feeling well. No bleeding, loss of fluid, decreased movement, nausea, vomiting, or pain/swelling in her legs. No cramping. Review of Systems Obstetric Review of Systems Total Weight Gain this 2.268 kg (5 lb) Movement: normal Contractions: none Leaking: None Bleeding; none now Preeclampsia signs and symptoms: None Physical Exam BP 95/51 Pulse 80 Temp 36.9 ??C (98.4 ??F) (Oral) Resp 18 Ht (!) 150 cm (4' 11.06) Wt (!) 104.8 kg (231 lb 0.7 oz) SpO2 98% BMI 46.58 kg/m2 Gen: appears well, NAD CV: RRR, no murmurs/rubs/gallops Pulm: CTAB, no wheezes/crackles Uterus: non-tender Cervix: Deferred Ext: Warm, well perfused, non-tender, trace edema in bilateral ankles Heart Rate Interpretation: Reactive tracing yesterday, please see separate documentation for today. Most Recent Ultrasound Date: 07/28/17 GA at US: 27w2d EFW: 969 grams, 53%ile Growth: Normal for gestational age Amniotic fluid volume: SHERI 8.69 cm, MVP 5.4 cm Placenta: Left lateral and posterior low lying placenta, umbilical blood vessels run immediately adjacent to the cervix, consistent with vasa previa Presentation: Cephalic GBS Collected and pending Assessment & Plan: Pam Lake is a 27 y.o. woman at 27w4d admitted for monitoring with known vasa previa. This is #3. 1. 1. Vasa Previa -Labs: GBS collected and pending -Delivery indications: Progressive labor, non-reassuring status, maternal deterioration -Tocolysis: Not indicated -GBS status: Collected 07/28/17, pending - status: NST once daily, ultrasound to be repeated no sooner than 08/11/17 -Steroid status: Second dose 07/29, complete 07/30 -Magnesium for neuro protection: Not indicated -Consultations: neonatology and anesthesiology -Consents obtained: ?? 2. GDM A2: Currently on 20 units nightly and 6 units every morning of NPH insulin, with glucose in the 80s fasting and low 100s post-prandially. Due to betamethasone dosing, mildly elevated overnightto 130, covered with Moderate sliding scale. -Blood glucose checks q4 hours while receiving steroid dosing -Continue home regimen NPH insulin -Moderate sliding scale insulin ordered for coverage q4 hours while steroids in effect ?? 3. contraception plan: -Desires 6 week Mirena ?? 4. Routine care: - vitamins daily -Tdap at 28 weeks -Refuses flu vaccine - labs obtained yesterday from OSH ?? 5. Other issues: -Previous x2: Consider active type and screen day of delivery -Asthma: Albuterol nebulizer PRN wueezing, avoid Hemabate -Marijuana use: TEREZA upon admission positive for cannabinoids only -History of depression: Will need 2 week depression screen Patient seen and discussed on Multidisciplinary Rounds EMERITA ROSARIO MD PGY3 07/30/2017 Associated attestation - Crow Vasquez MD - 07/30/2017 1:33 PM EST Maternal Medicine Attending Note Patient: Pam Lake I performed a history and physical exam of the patient and discussed her management with Dr. Rosario.I reviewed Dr. Rosario's note and agree with the documented findings and plan of care. My evaluation is as below: 27w4d weeks EGA; Patient admitted with complicated by vasa previa. LOS: 2 days Subjective: No complaints. Good movement. No contractions. Last value Range last 8 hrs Temperature Temp: 36.9 ??C (98.4 ??F) Temp: [36.9 ??C (98.4 ??F)] Heart Rate Heart Rate: 88 Heart Rate: [88] Blood Pressure BP: 123/65 BP: (123)/(65) Respiratory Rate Resp: 18 Resp: [18] SpO2 SpO2: 100 % SpO2: [100 %] *Abdomen: Soft, non-tender, not distended *Uterus: Soft, Non-tender *Extremities: Non-tender; no edema *NST: See separate report. Impression: Vasa previa at 27w4d weeks EGA. Plan: Repeat ultrasound in two weeks. Continue inpatient management for proximity to OR and NICU. Jane Vasquez MD Maternal- Medicine * Emerita Rosario - 07/29/2017 12:16 PM EST NST Progress Note: NST Fetus A 07/29/2017 HR (Beats/Min) 135 HR Variability moderate (amplitude range 6 to 25 bpm) HR Accelerations present;greater than/equal to 10 bpm (32 wks gest or less);lasts at least 10seconds (32 wks gest or less) HR Decelerations none;other (see comments) Contraction Frequency (Minutes) None Nonstress Test Interpretation Reactive <32 week: two 10 bpm accelerations lasting 10 seconds Overall Impression Reassuring for gestational age Comments Single variable deceleration noted at 11:20 prior to initiation of this NST, but no decelerations during this NST. Overall reassuring for gestational age of 27w3d. EMERITA ROSARIO MD PGY3 07/29/17 Associated attestation - Yeny Waterman MD - 07/29/2017 1:52 PM EST I personally reviewed and interpreted this NST. Yeny Waterman MD * Emerita Rosario - 07/29/2017 12:09 PM EST Interval Progress Note: Received labs from outside hospital. Labs reported below: 03/11/17 HIV: Negative R[place]lla IgG: Positive Hepatitis C: Negative Syphilis serology (RPR): Negative Hepatitis B antigen: Negative Hgb A1c: 6.0 TSH: 0.53 05/14/17: AFP: 1.57 (negative screen for neural tube defects) EMERITA ROSARIO MD PGY3 07/29/17 * Emerita Rosario - 07/29/2017 10:32 AM EST Images from the original note were not included. Obstetrical Antepartum Progress Note Pam Lake is a 27 y.o. woman at 27w3d with an CHITRA of 10/25/2017, admitted for monitoring in the setting of known vasa previa. This is hospital day #2. Active Problems: Patient Active Problem List Diagnosis ??? Asthma ??? Vasa previa Overview Note: 0.9cm lateral to internal os ??? Low-lying placenta ??? Insulin controlled gestational diabetes mellitus (GDM): diagnosed at 7 weeks gestation ??? Previous section x 2 24 Hour Events -Admitted to the unit -Reactive NST upon admission Subjective: Pam reports she feels well this morning. Denies bleeding, cramping, richard overnight. Reports good movement. Sad that she is here, and vomited once this morning from being upset. Denies nausea, states it only occurs when she gets worked up. Denies fevers, chills, or pain in her legs. Review of Systems Obstetric Review of Systems Total Weight Gain this 2.268 kg (5 lb) Movement: normal Contractions: none Leaking: None Bleeding; none now Preeclampsia signs and symptoms: None Physical Exam BP 110/51 Pulse 65 Temp 36.7 ??C (98.1 ??F) (Oral) Resp 20 Ht (!) 150 cm (4' 11.06) Wt (!) 104.8 kg (231 lb 0.7 oz) SpO2 99% BMI 46.58 kg/m2 Gen: appears well, NAD CV: RRR, no murmurs/rubs/gallops Pulm: CTAB, no wheezes/crackles Uterus: non-tender Cervix: Deferred Ext: Warm, well perfused, non-tender, trace edema in bilateral ankles Heart Rate Interpretation: Reactive tracing yesterday, please see separate documentation for today. Most Recent Ultrasound Date: 07/28/17 GA at US: 27w2d EFW: 969 grams, 53%ile Growth: Normal for gestational age Amniotic fluid volume: SHERI 8.69 cm, MVP 5.4 cm Placenta: Left lateral and posterior low lying placenta, umbilical blood vessels run immediately adjacent to the cervix, consistent with vasa previa Presentation: Cephalic GBS Collected and pending Assessment & Plan: Pam Lake is a 27 y.o. woman at 27w3d admitted for monitoring with known vasa previa. This is HD#2. 1. 1. Vasa Previa -Labs: GBS collected and pending -Delivery indications: Progressive labor, non-reassuring status, maternal deterioration -Tocolysis: Not indicated -GBS status: Collected 07/28/17, pending - status: NST once daily, ultrasound to be repeated no sooner than 08/11/17 -Steroid status: First dose beta methasone tonight, second dose 07/29 -Magnesium for neuro protection: Not indicated -Consultations: neonatology and anesthesiology -Consents obtained: ?? 2. GDM A2: Currently on 20 units nightly and 6 units every morning of NPH insulin, with glucose in the 80s fasting and low 100s post-prandially. Due to betamethasone dosing, mildly elevated overnightto 130, got 1 extra unit Humalog. -Blood glucose checks q4 hours while receiving steroid dosing -Continue home regimen NPH insulin -Moderate sliding scale insulin ordered for coverage q4 hours while steroids in effect ?? 3. contraception plan: -Desires 6 week Mirena ?? 4. Routine care: - vitamins daily -Tdap at 28 weeks -Refuses flu vaccine -Will obtain full lab panel from OSH tomorrow ?? 5. Other issues: -Previous x2: Consider active type and screen day of delivery -Asthma: Albuterol nebulizer PRN wueezing, avoid Hemabate -Marijuana use: TEREZA upon admission positive for cannabinoids only -History of depression: Will need 2 week depression screen Patient seen and discussed on Multidisciplinary Rounds EMERITA ROSARIO MD PGY3 07/29/2017 Associated attestation - Crow Vasquez MD - 07/29/2017 2:39 PM EST Maternal Medicine Attending Note Patient: Pam Lake I performed a history and physical exam of the patient and discussed her management with Dr. Rosario.I reviewed Dr. Rosario's note and agree with the documented findings and plan of care. My evaluation is as below: 27w3d weeks EGA; Patient admitted with complicated by vasa previa, and history of two prior deliveries. LOS: 1 day Subjective: No complaints. Good movement. No contractions. Last value Range last 8 hrs Temperature Temp: 37 ??C (98.6 ??F) Temp: [37 ??C (98.6 ??F)] Heart Rate Heart Rate: 93 Heart Rate: [93] Blood Pressure BP: 111/74 BP: (111)/(74) Respiratory Rate Resp: 19 Resp: [19] SpO2 SpO2: 97 % SpO2: [97 %] *Abdomen: Soft, non-tender, not distended *Uterus: Soft, Non-tender *Extremities: Non-tender; no edema *NST: See separate report. Impression: Vasa previa at 27w3d weeks EGA. Plan: Plan for continued inpatient management for proximity to NICU and OR due to risk of hemorrhage. Deliver for bleeding or non-reassuring maternal or status. Jane Vasquez MD Maternal- Medicine * Alisson Ham RN - 07/28/2017 4:46 PM EST Pt 27+2 sent from the clinic as a known Vesa Previa for admission. VSS. Pt denies pain, leaking or bleeding at this time. Pt states baby is active and kicking. MD at bedside evaluating pt and discussing POC to deliver after 34wks documented in this encounter H&P Notes * Chely Sin MD - 07/28/2017 4:55 PM EST Obstetrical Admission Note Referring Hospital: [facility] Initial Care Provider (if early referral or co-managed by M): Dr. Isela Blunt Chief Complaint: Pam Lake was admitted today secondary to vasa previa. Pam Lake is a 27 y.o. at 27w2d weeks gestation. States she is generally feeling well since nausea of first trimester resolved. Her has been complicated by: 1. GDM diagnosed at 7 weeks gestation: on 20 units nightly and 6 U NPH insulin every morning. Fasting glucose in the 80s, and 1 hour post-prandial is 101. 2. Previous x2 3. Asthma: Uses albuterol rescue inhaler twice annually 4. Marijuana use: Used an eighth of MJ weekly throughout 5. Morbid obesity: BMI 47 today 6. History of depression: Not on medications in Review of Systems- Negative to complete review except as noted in the HPI. Obstetric Review of Systems Total Weight Gain this -3.175 kg (-7 lb) Movement: normal Contractions: none Leaking: None Bleeding; none now Preeclampsia signs and symptoms: None Active Hospital Problems Diagnosis ??? Asthma ??? Vasa previa ??? Previous section x 2 ??? Insulin controlled gestational diabetes mellitus (GDM): diagnosed at 7 weeks gestation Resolved Hospital Problems Diagnosis Date Resolved No resolved problems to display. Active Non-Hospital Problems Diagnosis ??? Low-lying placenta Past Medical History: Diagnosis Date ??? Asthma ??? Diabetes mellitus gestational diabetes insulin controlled and diet Past Surgical History: Procedure Laterality Date ??? SECTION 2008 and 2010 OB History Para Term AB Living 5 2 2 0 2 3 SAB TAB Ectopic Multiple Live Births 1 1 1 # Outc Date GA Lbr Gildardo/2nd Wgt Sex Del Anes PTL Lv 1 Term M N Living 2 SAB 3 TAB 4 Term 5 Current Prescriptions Prior to Admission Medication Sig Dispense Refill Last Dose ??? vitamin with [id number] Tablet Take 1 tablet by mouth daily. Not Taking at Unknown time ??? insulin NPH (HUMULIN N;NOVOLIN N) Insulin Pen Inject 26 Units subcutaneously nightly. Taking atUnknown time ??? blood sugar diagnostic strips Strip 1 each by Other route 4 times daily. Use as instructed Not Taking at Unknown time ??? lancets Misc 1 each by Misc.(Non-Drug; Combo Route) route 4 times daily. Not Taking at Unknown time ??? ondansetron (ZOFRAN-ODT) 4 mg Tablet, Rapid Dissolve Take 8 mg by mouth every 8 hours as neededfor Nausea. Not Taking at Unknown time No Known Allergies Family History Problem Relation Age of Onset ??? HIV/AIDS Mother ??? Diabetes Mother ??? Hypertension Mother ??? Hyperlipidemia Mother ??? Diabetes Maternal Grandmother ??? Hypertension Maternal Grandmother ??? Breast Cancer Maternal Grandmother ??? Hyperlipidemia Maternal Grandmother ??? Diabetes Maternal Grandfather ??? Hypertension Maternal Grandfather ??? Hyperlipidemia Maternal Grandfather Social History Occupational History ??? Not on file. Social History Main Topics ??? Smoking status: Former Smoker ??? Smokeless tobacco: Never Used ??? Alcohol use No ??? Drug use: 3.50 per week Special: Marijuana Comment: Pt smokes ~ 1/8th an ounce (3.5g) per week, smokes every night ??? Sexual activity: Yes Partners: Male Immunization History There is no immunization history on file for this patient. Last Set of Vitals: BP 129/83 Pulse 80 Temp 37 ??C (98.6 ??F) (Oral) Resp 18 SpO2 99% Physical Exam: Gen: AAO, sitting comfortably during our conversation in no apparent distress Cardio: nl rhythm, S1, S2, no M/C/R/G Pulm: CTA BL, no W/C/R Abd: Soft, NT, ND, gravid Ext: warm, well-perfused, no BETTY or calf tenderness Neuro: grossly intact Uterine Size: S=D Clinical EFW: 5 lbs by Barry's Cervix Exam: Deferred Presentations: Cephalic by US on 07/28/17 Heart Rate Interpretation: Baseline: 145, Variability: moderate, Accels: yes, Decels: none, [place]: No contractions Reactive for gestational age Record Review Labs Rh positive RPR: Negative 03/11/17 Hep B: Negative 03/11/17 HIV: Collected at OSH early in , will obtain results Hep C: Collected at OSH, will obtain results Rubella: Collected at OSH, will obtain results 1 Hr GTT: 178 on 03/16, vomited her 3 hr GTT, started on insulin Most Recent Ultrasound Date: 07/28/17 GA at US: 27w2d EFW: 969 grams, 53%ile Growth: Normal for gestational age Amniotic fluid volume: SHERI 8.69 cm, MVP 5.4 cm Placenta: Left lateral and posterior low lying placenta, umbilical blood vessels run immediately adjacent to the cervix, consistent with vasa previa Presentation: Cephalic Assessment & Plan Pam Lake is a 27 y.o. at 27w2d gestation being admitted for proximity to OR and NICU in the setting of vasa previa. 1. Vasa Previa -Labs: T&S, hemogram, GBS collected and pending -Delivery indications: Progressive labor, non-reassuring status, maternal deterioration -Tocolysis: Not indicated -GBS status: Collected 07/28/17, pending - status: NST once daily, Ultrasound to be repeated no sooner than 08/11/17 -Steroid status: First dose beta methasone tonight, second dose 07/29 -Magnesium for neuro protection: Not indicated -Consultations: neonatology and anesthesiology -Consents obtained: 2. GDM A2: Currently on 20 units nightly and 6 units every morning of NPH insulin, with glucose in the 80s fasting and low 100s post-prandially. Due to betamethasone dosing, will likely rise over thenext few days. -Blood glucose checks q4 hours -Continue home regimen NPH insulin -Moderate sliding scale insulin ordered for coverage q4 hours while steroids take effect 3. contraception plan: -Desires 6 week visit 4. Routine care: - vitamins daily -Tdap at 28 weeks -Refuses flu vaccine -Will obtain full lab panel from OSH tomorrow 5. Other issues: -Previous x2: Consider active type and screen day of delivery -Asthma: Albuterol nebulizer PRN wueezing, avoid Hemabate -Marijuana use: Verbally consented to TEREZA upon admission, collected and pending -History of depression: Will need 2 week depression screen. This patient was seen and discussed with Dr. Zurita, Attending FLOORWALKER. EMERITA ROSARIO MD PGY3 07/28/2017 Attending note I saw and evaluated the patient with Dr Rosario (resident physician.) I have reviewed the resident's history during the visit and I agree with the details as written. My physical examination confirms and/or revises the resident's findings. The assessment and plan were formulated in discussion with meat the time of the visit and I agree with them as documented. Chely Sin MD documented in this encounter Miscellaneous Notes * Plan of Care - Asif Grove, RN - 09/15/2017 4:51 PM EST Problem: Patient Care Overview Goal: Plan of Care Review Outcome: Outcome (s) achieved Date Met: 09/15/17 09/15/17 1924 Plan of Care Review Progress progress toward functional goals as expected OUTCOME EVALUATION NOTE: OUTCOME SUMMARY: Pt ambulating to visit infant in ICN. Tolerating diet. Voiding without difficulty. Reports PRN painmedication to adequately control pain level. Assisted with breast pump. Reviewed breast massage andhand expression. Discharge instructions reviewed and questions answered. PLAN MOVING FORWARD: Discharge home - pt plans to stay at [facility] while in ICN. INDIVIDUALIZED FALL PREVENTION INTERVENTIONS: Patient-specific fall risk factors per assessment: [current deficits]: Post-operative Assistance [level of assistance required for transfers and ambulation]: Independent. Call pike in reach and pt using appropriately Supervision [direct monitoring required during toileting and ADLs]: NA Surveillance [continuous indirect monitoring]: Purposeful rounding, VS, Patient-specific fall prevention interventions for sensory deficits provided, if applicable: NA CPG GOAL OUTCOME EVALUATION: Outcome achieved Goal: Individualization & Mutuality Outcome: Outcome (s) achieved Date Met: 09/15/17 09/10/17 1814 09/12/17 0518 09/13/17 0330 Individualization Patient Specific Preferences -- -- pain control, breast pump, visit baby in ICN Patient Specific Goals -- -- stable post-op recovery, pain control, be able to produce adequate breast milk for baby Patient Specific Interventions -- -- Post-op/PP care, VS per protocol, pain meds as ordered Mutuality/Individual Preferences What Anxieties, Fears or Concerns Do You Have About Your Health or Care? Lack of support from FOB -- -- What Questions Do You Have About Your Health or Care? -- none at this time -- What Information Would Help Us Give You More Personalized Care? -- baby is in the ICN -- Goal: Fall Prevention-Safe Patient Handling Outcome: Outcome (s) achieved Date Met: 09/15/17 09/13/17 03309/15/17 0954 Activity and Safety Assistive Device Wheelchair (ambulating while pushing wheelchair) -- Daily Care Interventions Self-Care Promotion -- independence encouraged;BADL personal objects within reach;BADL personal routines maintained Musculoskeletal Interventions Muscle Strengthening activity/mobility promoted;personal routines for BADL/IADL promoted -- Restraint Interventions Safety Promotion/Fall Prevention -- safety round/check completed;fall prevention program maintained;nonskid shoes/slippers when out of bed Barbour Fall Risk History of Falling -- 0 Secondary Diagnosis -- 15 Ambulatory Aids -- 0 Intravenous Therapy/Heparin/Saline Lock -- 20 Gait/Transferring -- 0 Mental Status -- 0 Score -- 35 OTHER Barbour Fall Risk -- Med Positioning Body Position -- independent Goal: Infection Control Outcome: Outcome (s) achieved Date Met: 09/15/17 09/15/17 09 Safety Interventions Isolation Precautions standard precautions maintained Infection Prevention environmental surveillance performed;personal protective equipment utilized;rest/sleep promoted;single patient room provided Coping Strategies Supportive Measures active listening utilized;positive reinforcement provided;relaxation techniquespromoted;self-care encouraged;self-reflection promoted;self-responsibility promoted Goal: Discharge Needs Assessment Outcome: Outcome (s) achieved Date Met: 09/15/17 09/10/17 1814 09/12/17 0518 09/13/17 0330 Discharge Needs Assessment Concerns To Be Addressed -- -- other (see comments) Readmission Within The Last 30 Days -- -- no previous admission in last 30 days Provider Choice List(s) Given no -- -- Equipment Needed After Discharge -- other (see comments) (breast pump) -- Discharge Disposition -- -- -- Current Health Anticipated Changes Related to Illness -- -- inability to work Activity/Self Care Review of Systems Equipment Currently Used at Home -- -- none Living Environment Transportation Available -- -- family or friend will provide 09/15/17 1644 Discharge Needs Assessment Concerns To Be Addressed -- Readmission Within The Last 30 Days -- Provider Choice List(s) Given -- Equipment Needed After Discharge -- Discharge Disposition home or self-care Current Health Anticipated Changes Related to Illness -- Activity/Self Care Review of Systems Equipment Currently Used at Home -- Living Environment Transportation Available -- Problem: ( Delivery) (Adult) Goal: Signs and Symptoms of Listed Potential Problems Will be Absent, Minimized or Managed () Signs and symptoms of listed potential problems will be absent, minimized or managed by discharge/transition of care (reference ( Delivery) (Adult) CPG). Outcome: Outcome (s) achieved Date Met: 09/15/17 09/15/17 0954 ( Delivery) Problems Assessed ( ) all Problems Present ( ) none Problem: Hysterectomy (Adult) Goal: Signs and Symptoms of Listed Potential Problems Will be Absent, Minimized or Managed (Hysterectomy) Signs and symptoms of listed potential problems will be absent, minimized or managed by discharge/transition of care (reference Hysterectomy (Adult) CPG). Outcome: Outcome (s) achieved Date Met: 09/15/17 09/15/17 0954 Hysterectomy Problems Assessed (Hysterectomy) all Problems Present (Hysterectomy) none * Consult Note - Kristin Beauchamp - 09/15/2017 2:25 PM EST Behavioral Intervention Team (BIT) Pam was smiling while resting in bed before she nursed her infant at 3:00. She was very pleased that her baby had a higher weight than anticipated and that she does not need oxygen at this time. Pam is looking forward to her d/c today and is all packed for her stay at [facility] until she can bring her baby home. Kristin Beauchamp, [facility], [facility] [phone] Pager [phone] * Plan of Care - Rubi Curran PT - 09/15/2017 9:20 AM EST Problem: Patient Care Overview Goal: Plan of Care Review Outcome: Ongoing (Interventions Implemented as Appropriate) 09/15/17 0920 Coping/Psychosocial Plan Of Care Reviewed With patient (RN) Physical Therapy Assessment Treatment Number: 1 (Evaluation) Pertinent History of Current Problem: Pam Lake is a 27 y.o. right handed female now 3 admitted on 07/28/[address] Waterman, Yeny Black MD with vasa previa with morbidly adherent placenta. Pam is now s/p supracervical hysterectomy with (L) distal partial salpingectomy performed at 34w0d weeks gestation. Pt with neck pain noted post-delivery. Past Medical History: Diagnosis Date ??? Asthma ??? Diabetes mellitus gestational diabetes insulin controlled and diet ??? Jka antibody positive Past Surgical History: Procedure Laterality Date ??? SECTION 2008 and 2010 ??? PRO DELIVERY ONLY Bilateral 09/11/2017 @ DELIVERY (WRVU 16.13) performed by Chely Sin MD at [facility] ??? PRO CYSTOURETHROSCOPY N/A 09/11/2017 CYSTO, CYSTOURETHROSCOPY, DIAGNOSTIC (WRVU 2.23) performed by Chely Sin MD at [facility] ??? PRO SUPRACERV ABD HYSTERECTOMY N/A 09/11/2017 @HYSTERECTOMY, ABD, SUPRACERVICAL (WRVU 16.6) performed by Chely Sin MD at [facility] Subjective: Patient/Family/Caregiver Comments/Observations: Oh that hurts but it also feels great! - RE triggerpoint therapy / deep tissue massage Objective: ?? Prior history of neck problems: no prior neck problems ?? Aggravating factors: constant per pt however increased with end range in any direction ?? Easing factors: initially flat supine was only tolerable position, does not appear to be positional however end range in any direction increases discomfort ?? Radiating symptoms: radiating headache per pt from occiput to temples; denies numbness and tingling; ?? Headaches: Yes: dull pain, bilateral in the temporal area, bilateral in the occipital area achy,dull Treatment to date has included: medication: (see Epic documentation), positioning Pain: at best: 2/10; at worst: initially 10/10 per pt Located: (L) side of neck more than (R) Describes pain as: aching, dull and pulsating Posture: Forward head , Protracted scapula, Rounded shoulders and Pelvic alignment Range of Motion: limited globally, requires increased time to work through full ROM available, tighter on (L) than (R) so reduced AROM with sidebending (R), rotation (R), and cervical flexion - discomfort noted per pt (L) perispinal and upper trap area. Palpation: Tenderness with palpation at (L)>(R) upper trap, (L)>(R) levator scap, (L)>(R) perispinals, (L)>(R) suboccipital muscles; light touch: Normal Assessment: Pt seen for PT evaluation secondary to persistent neck pain. Patient presents with the following impairments: pain, reduced ROM, postural changes, impaired performance in ADLs, reduced functional strength, and limited activity tolerance compared to baseline. Cervical spine assessment asdocumented above notable for muscle tightness with pain to palpation along (L) more than (R) side and reduced AROM. Pt tolerated triggerpoint therapy, deep tissue massage, and soft tissue massage x 5-10 minutes with education for self-performance. Pt was educated on HEP including ROM (specifically head nods, turns, and tilts), self trigger point release to upper traps and suboccipital muscles, posture, positioning recommendations, and a few seated exercises to perform to minimize muscle splinting / spasm. Pam verbalized and demonstrated understanding and has no ongoing PT needs at this time - will continue to monitor. Plan: Therapy Frequency: evaluation only Discharge Recommendations: Anticipated Equipment Needs at Discharge: (no DME needs) Anticipated Discharge Disposition: home Demonstrates Need for Referral to Another Service: (-) TIME IN / OUT: 9:20 - 9:53 2017 PT Evaluation Code Rationale: ?? Diagnosis & Pertinent Co-Morbidities, personal factors, and present illness affecting Plan of Care: Patient Active Problem List Diagnosis Code ??? Insulin controlled gestational diabetes mellitus (GDM): diagnosed at 7 weeks gestation O24.414 ??? Previous section x 2 Z98.891 ??? Vasa previa O69.4XX0 ??? Asthma J45.909 ??? BMI 45.0-49.9, adult Z68.42 ??? Encounter for insertion of intrauterine contraceptive device Z30.430 ??? Jka antibody positive R76.0 ?? List of Factors: 0 1-2 3+ X ?? Examination of body system impairments, functional limitations and behaviors, that result in participation restrictions. Addressing 1-2 elements Addressing 3 + elements Addressing 4 + elements X ?? Clinical presentation: See assessment above. Stable/Uncomplicated Evolving/Flucuating Symtoms Unstable/Unpredictable X ?? Clinical decision making of high complexity based on pt's functional performance as outlined in this evaluation. RUBI CURRAN, PT, DPT Pager: [phone] Inpatient Physical Therapy * Plan of Care - Emely Nagy RN - 09/15/2017 5:40 AM EST Problem: Patient Care Overview Goal: Plan of Care Review Outcome: Ongoing (Interventions Implemented as Appropriate) 09/13/1732909/14/172199 Plan of Care Review Progress progress toward functional goals as expected -- Coping/Psychosocial Plan Of Care Reviewed With -- patient OUTCOME EVALUATION NOTE: OUTCOME SUMMARY: Pt ambulating independently to visit in ICN. Pt declining oxycodone for pain control howeveris now agreeable to taking ibuprofen and tylenol. Pt packed up her room overnight in anticipation of discharge. Hgb 7.0 this am. PLAN MOVING FORWARD: Continue to provide support INDIVIDUALIZED FALL PREVENTION INTERVENTIONS: Patient-specific fall risk factors per assessment: [current deficits]: No deficit Assistance [level of assistance required for transfers and ambulation]: independent Supervision [direct monitoring required during toileting and ADLs]: Pt able to reliably call for assistance Surveillance [continuous indirect monitoring]: Purposeful rounding Patient-specific fall prevention interventions for sensory deficits provided, if applicable: CPG GOAL OUTCOME EVALUATION: Goal: Individualization & Mutuality Outcome: Ongoing (Interventions Implemented as Appropriate) 09/10/174 09/12/1718 09/13/17 033 Individualization Patient Specific Preferences -- -- pain control, breast pump, visit baby in ICN Patient Specific Goals -- -- stable post-op recovery, pain control, be able to produce adequate breast milk for baby Patient Specific Interventions -- -- Post-op/PP care, VS per protocol, pain meds as ordered Mutuality/Individual Preferences What Anxieties, Fears or Concerns Do You Have About Your Health or Care? Lack of support from FOB -- -- What Questions Do You Have About Your Health or Care? -- none at this time -- What Information Would Help Us Give You More Personalized Care? -- baby is in the ICN -- Goal: Fall Prevention-Safe Patient Handling Outcome: Ongoing (Interventions Implemented as Appropriate) 09/13/1732909/13/1740 09/14/172199 Activity and Safety Assistive Device Wheelchair (ambulating while pushing wheelchair) -- -- Daily Care Interventions Self-Care Promotion -- independence encouraged;BADL personal objects within reach -- Musculoskeletal Interventions Muscle Strengthening activity/mobility promoted;personal routines for BADL/IADL promoted -- -- Restraint Interventions Safety Promotion/Fall Prevention -- -- safety round/check completed Barbour Fall Risk History of Falling -- -- 0 Secondary Diagnosis -- -- 15 Ambulatory Aids -- -- 0 Intravenous Therapy/Heparin/Saline Lock -- -- 20 Gait/Transferring -- -- 0 Mental Status -- -- 0 Score -- -- 35 OTHER Barbour Fall Risk -- -- Med Positioning Body Position -- -- independent Goal: Infection Control Outcome: Ongoing (Interventions Implemented as Appropriate) 09/14/172199 Safety Interventions Isolation Precautions standard precautions maintained Infection Prevention single patient room provided;rest/sleep promoted;personal protective equipmentutilized;equipment surfaces disinfected;environmental surveillance performed Coping Strategies Supportive Measures active listening utilized;counseling provided;decision- making supported;goal setting facilitated;positive reinforcement provided;problem solving facilitated;self-care encouraged;relaxation techniques promoted;self-reflection promoted;self-responsibility promoted;verbalization of feelings encouraged Goal: Discharge Needs Assessment Outcome: Ongoing (Interventions Implemented as Appropriate) 09/10/17 1814 09/12/17 0518 09/12/17 184 Discharge Needs Assessment Concerns To Be Addressed -- -- -- Concerns Comments -- -- Hoping d/t blood loss that she can stay until Mon or , then go to [facility], has no support at home and no transportation. Readmission Within The Last 30 Days -- -- -- Provider Choice List(s) Given no -- -- Equipment Needed After Discharge -- other (see comments) (breast pump) -- Discharge Disposition -- -- -- Current Health Anticipated Changes Related to Illness -- -- -- Activity/Self Care Review of Systems Equipment Currently Used at Home -- -- -- Living Environment Transportation Available -- -- -- 01/21/18 0330 Discharge Needs Assessment Concerns To Be Addressed other (see comments) Concerns Comments -- Readmission Within The Last 30 Days no previous admission in last 30 days Provider Choice List(s) Given -- Equipment Needed After Discharge -- Discharge Disposition still a patient Current Health Anticipated Changes Related to Illness inability to work Activity/Self Care Review of Systems Equipment Currently Used at Home none Living Environment Transportation Available family or friend will provide Goal: Interdisciplinary Rounds/Family Conf Outcome: Ongoing (Interventions Implemented as Appropriate) 09/13/17 0330 09/13/17 1608 Interdisciplinary Rounds/Family Conf Summary -- Pt reporting 7/10 neck pain, anxiety r/t spinal pain Participants nursing;patient -- Problem: Skin Integrity Impairment, Risk/Actual (Adult) Goal: Identify Related Risk Factors and Signs and Symptoms Related risk factors and signs and symptoms are identified upon initiation of Human Response Clinical Practice Guideline (CPG) Outcome: Ongoing (Interventions Implemented as Appropriate) 09/13/17 0330 Skin Integrity Impairment, Risk/Actual Skin Integrity Impairment, Risk/Actual: Related Risk Factors surgery/procedure Signs and Symptoms (Skin Integrity Impairment) edema Goal: Skin Integrity/Wound Healing Patient will demonstrate the desired outcomes by discharge/transition of care. Outcome: Ongoing (Interventions Implemented as Appropriate) 09/15/17 0528 Skin Integrity Impairment, Risk/Actual (Adult) Skin Integrity/Wound Healing achieves outcome Problem: ( Delivery) (Adult) Goal: Signs and Symptoms of Listed Potential Problems Will be Absent, Minimized or Managed () Signs and symptoms of listed potential problems will be absent, minimized or managed by discharge/transition of care (reference ( Delivery) (Adult) CPG). Outcome: Ongoing (Interventions Implemented as Appropriate) 09/15/17 0528 ( Delivery) Problems Assessed ( ) all Problems Present ( ) none Problem: Hysterectomy (Adult) Goal: Signs and Symptoms of Listed Potential Problems Will be Absent, Minimized or Managed (Hysterectomy) Signs and symptoms of listed potential problems will be absent, minimized or managed by discharge/transition of care (reference Hysterectomy (Adult) CPG). Outcome: Ongoing (Interventions Implemented as Appropriate) 09/15/17 0528 Hysterectomy Problems Assessed (Hysterectomy) all Problems Present (Hysterectomy) none * Note - Rosario Noyola RN - 09/14/2017 6:56 PM EST This note was copied from a baby's chart. Services Note: S/O Met with michele Orozco mom in her birthing pavilion room 17. She was laying down flat due to neck pain and did not wish to sit up. She reports she has been trying to pump about every three hours for fifteen minutes but has not been able to obtain any colostrum for her baby. Reports she had tried to breast feed her six year old daughter for about four months but struggled with milksupply. Discussed importance of emptying the breasts frequently and regularly to help her milk production and discussed the goal of eight pumping sessions in 24 hours. Mom verbalizing appropriate frequency and length of time needed for pumping sessions. She did not wish to pump at my visit at this time. Offered encouragement and discussed that team could be paged by BP nurse or her baby's ICN nurse to offer support around breast pumping or feeding sessions. Per mom's BP RN Valery riley now on flexeril for her neck pain as well. On review of Timothy Holcomb's Medications in Mothers' Milk reference the flexeril is an L3 medication which is probably compatible with breast feeding but recommended short term use of this medication. A: Mom with premature in ICN reports she is pumping per recommended guidelines but not able to express any milk on day 3 post delivery. P Offered support and encouragement for her hard work trying to express milk for her baby. Recommendations: Pump at least 8 times per 24 hours and record in pumping log provided Breast massage and hand expression before and during pumping Brief heat prior to pumping and ice packs after pumping X 48 hours if develop symptoms of engorgement Moline oil to nipples prior to pumping Frequent and prolonged maternal- skin to skin contact Close support and follow up Pam given the following pamphlets: Providing breast milk for your baby in the intensive care nursery Breast feeding your premature baby Rosario Noyola RN IBCLC [facility] [facility] * Consult Note - Kristin Beauchamp - 09/14/2017 1:12 PM EST Behavioral Intervention Team (BIT) BIT HUM[employer] RESOURCES PSYCHOLOGIST attempted to meet with Pam who was sleeping. Will try again later. Kristin Beauchamp, [facility], [facility] [phone] Pager [phone] * Plan of Care - Yumiko Cochran RN - 09/13/2017 4:11 PM EST Problem: Patient Care Overview Goal: Plan of Care Review Outcome: Ongoing (Interventions Implemented as Appropriate) 09/13/17 0330 09/13/17 0940 Plan of Care Review Progress progress toward functional goals as expected -- Coping/Psychosocial Plan Of Care Reviewed With -- patient OUTCOME EVALUATION NOTE: OUTCOME SUMMARY: Vital signs stable. Assessment as documented. Incisional pain is well-controlled, attempting to use Flexiril for neck/head pain, with limited success. Pt declines Tylenol and ibuprofen. Declined colace this AM, states she will take it tonight. Bowel sounds normoactive, pt denies passing flatus. PLAN MOVING FORWARD: Continue to monitor. Support progress towards discharge. INDIVIDUALIZED FALL PREVENTION INTERVENTIONS: Patient-specific fall risk factors per assessment: [current deficits]: none Assistance [level of assistance required for transfers and ambulation]: Up ad catina, independent. Supervision [direct monitoring required during toileting and ADLs]: none Surveillance [continuous indirect monitoring]: Purposeful rounding Patient-specific fall prevention interventions for sensory deficits provided, if applicable: No CPG GOAL OUTCOME EVALUATION: Goal: Individualization & Mutuality Outcome: Ongoing (Interventions Implemented as Appropriate) 09/10/17 1814 09/12/17 0518 09/13/17 0330 Individualization Patient Specific Preferences -- -- pain control, breast pump, visit baby in ICN Patient Specific Goals -- -- stable post-op recovery, pain control, be able to produce adequate breast milk for baby Patient Specific Interventions -- -- Post-op/PP care, VS per protocol, pain meds as ordered Mutuality/Individual Preferences What Anxieties, Fears or Concerns Do You Have About Your Health or Care? Lack of support from FOB -- -- What Questions Do You Have About Your Health or Care? -- none at this time -- What Information Would Help Us Give You More Personalized Care? -- baby is in the ICN -- Goal: Fall Prevention-Safe Patient Handling Outcome: Ongoing (Interventions Implemented as Appropriate) 09/13/1732909/13/17939 Activity and Safety Assistive Device Wheelchair (ambulating while pushing wheelchair) -- Daily Care Interventions Self-Care Promotion -- independence encouraged;BADL personal objects within reach Musculoskeletal Interventions Muscle Strengthening activity/mobility promoted;personal routines for BADL/IADL promoted -- Restraint Interventions Safety Promotion/Fall Prevention -- nonskid shoes/slippers when out of bed;safety round/check completed Barbour Fall Risk History of Falling -- 0 Secondary Diagnosis -- 0 Ambulatory Aids -- 0 Intravenous Therapy/Heparin/Saline Lock -- 20 Gait/Transferring -- 0 Mental Status -- 0 Score -- 20 OTHER Barbour Fall Risk -- Low Positioning Body Position -- independent Goal: Infection Control Outcome: Ongoing (Interventions Implemented as Appropriate) 09/13/17939 Safety Interventions Isolation Precautions standard precautions maintained Infection Prevention environmental surveillance performed;rest/sleep promoted;single patient room provided Coping Strategies Supportive Measures active listening utilized;decision-making supported;goal setting facilitated;positive reinforcement provided;self-care encouraged;verbalization of feelings encouraged Goal: Discharge Needs Assessment Outcome: Ongoing (Interventions Implemented as Appropriate) 09/10/17 1814 09/12/17 0518 09/12/17 1841 Discharge Needs Assessment Concerns To Be Addressed -- -- -- Concerns Comments -- -- Hoping d/t blood loss that she can stay until Mon or Tu, then go to [facility], has no support at home and no transportation. Readmission Within The Last 30 Days -- -- -- Provider Choice List(s) Given no -- -- Equipment Needed After Discharge -- other (see comments) (breast pump) -- Discharge Disposition -- -- -- Current Health Anticipated Changes Related to Illness -- -- -- Activity/Self Care Review of Systems Equipment Currently Used at Home -- -- -- Living Environment Transportation Available -- -- -- 09/13/17329 Discharge Needs Assessment Concerns To Be Addressed other (see comments) Concerns Comments -- Readmission Within The Last 30 Days no previous admission in last 30 days Provider Choice List(s) Given -- Equipment Needed After Discharge -- Discharge Disposition still a patient Current Health Anticipated Changes Related to Illness inability to work Activity/Self Care Review of Systems Equipment Currently Used at Home none Living Environment Transportation Available family or friend will provide Goal: Interdisciplinary Rounds/Family Conf Outcome: Ongoing (Interventions Implemented as Appropriate) 09/13/17 0330 09/13/17 1608 Interdisciplinary Rounds/Family Conf Summary -- Pt reporting 03/02 neck pain, anxiety r/t spinal pain Participants nursing;patient -- Problem: Skin Integrity Impairment, Risk/Actual (Adult) Goal: Identify Related Risk Factors and Signs and Symptoms Related risk factors and signs and symptoms are identified upon initiation of Human Response Clinical Practice Guideline (CPG) Outcome: Ongoing (Interventions Implemented as Appropriate) 09/13/17 0330 Skin Integrity Impairment, Risk/Actual Skin Integrity Impairment, Risk/Actual: Related Risk Factors surgery/procedure Signs and Symptoms (Skin Integrity Impairment) edema Goal: Skin Integrity/Wound Healing Patient will demonstrate the desired outcomes by discharge/transition of care. Outcome: Ongoing (Interventions Implemented as Appropriate) 09/13/17 033 Skin Integrity Impairment, Risk/Actual (Adult) Skin Integrity/Wound Healing making progress toward outcome Problem: ( Delivery) (Adult) Goal: Signs and Symptoms of Listed Potential Problems Will be Absent, Minimized or Managed () Signs and symptoms of listed potential problems will be absent, minimized or managed by discharge/transition of care (reference ( Delivery) (Adult) CPG). Outcome: Ongoing (Interventions Implemented as Appropriate) 09/13/17 0940 ( Delivery) Problems Assessed ( ) all Problems Present ( ) pain Problem: Hysterectomy (Adult) Goal: Signs and Symptoms of Listed Potential Problems Will be Absent, Minimized or Managed (Hysterectomy) Signs and symptoms of listed potential problems will be absent, minimized or managed by discharge/transition of care (reference Hysterectomy (Adult) CPG). Outcome: Ongoing (Interventions Implemented as Appropriate) 09/13/17 0940 Hysterectomy Problems Assessed (Hysterectomy) all Problems Present (Hysterectomy) pain * Plan of Care - Daisy Mike RN - 09/13/2017 3:41 AM EST Problem: Patient Care Overview Goal: Plan of Care Review Outcome: Ongoing (Interventions Implemented as Appropriate) 09/13/17 0330 Plan of Care Review Progress progress toward functional goals as expected Coping/Psychosocial Plan Of Care Reviewed With patient OUTCOME EVALUATION NOTE: OUTCOME SUMMARY: Pt is on her 2nd day post-CS, VS stable, pain controlled with use of Ketorolac 15 mg IV & Oxycodone. Pt has been voiding adequately since after her amador catheter was removed yesterday. Pt able to get out of bed & ambulate independently. She ambulated to the ICN while pushing her wheelchair. See care plan goal summaries & comprehensive report for pt status. PLAN MOVING FORWARD: Continue care as directed in CPG care plans. Prepare pt for discharge tomorrow. INDIVIDUALIZED FALL PREVENTION: Assistance: None, pt independent. Supervision: Remind pt to call for assistance when needed, call light within reach Surveillance: Purposeful rounding CPG OUTCOME EVALUATION: Goal: Individualization & Mutuality Outcome: Ongoing (Interventions Implemented as Appropriate) 09/10/17181309/12/1751709/13/17329 Individualization Patient Specific Preferences -- -- pain control, breast pump, visit baby in ICN Patient Specific Goals -- -- stable post-op recovery, pain control, be able to produce adequate breast milk for baby Patient Specific Interventions -- -- Post-op/PP care, VS per protocol, pain meds as ordered Mutuality/Individual Preferences What Anxieties, Fears or Concerns Do You Have About Your Health or Care? Lack of support from FOB -- -- What Questions Do You Have About Your Health or Care? -- none at this time -- What Information Would Help Us Give You More Personalized Care? -- baby is in the ICN -- Goal: Fall Prevention-Safe Patient Handling Outcome: Ongoing (Interventions Implemented as Appropriate) 09/12/17201409/13/17 0330 Activity and Safety Assistive Device -- Wheelchair (ambulating while pushing wheelchair) Daily Care Interventions Self-Care Promotion independence encouraged;BADL personal objects within reach;BADL personal routines maintained -- Musculoskeletal Interventions Muscle Strengthening -- activity/mobility promoted;personal routines for BADL/IADL promoted Restraint Interventions Safety Promotion/Fall Prevention fall prevention program maintained;nonskid shoes/slippers when outof bed -- Barbour Fall Risk History of Falling 0 -- Secondary Diagnosis 15 -- Ambulatory Aids 0 -- Intravenous Therapy/Heparin/Saline Lock 20 -- Gait/Transferring 0 -- Mental Status 0 -- Score 35 -- OTHER Barbour Fall Risk Med -- Positioning Body Position independent -- Goal: Infection Control Outcome: Ongoing (Interventions Implemented as Appropriate) 09/12/172014 Safety Interventions Isolation Precautions standard precautions maintained Infection Prevention environmental surveillance performed;rest/sleep promoted;single patient room provided Coping Strategies Supportive Measures active listening utilized;goal setting facilitated;positive reinforcement provided;verbalization of feelings encouraged Goal: Discharge Needs Assessment Outcome: Ongoing (Interventions Implemented as Appropriate) 09/12/1718 09/12/17 1841 09/13/17329 Discharge Needs Assessment Concerns To Be Addressed -- -- other (see comments) Concerns Comments -- Hoping d/t blood loss that she can stay until Mon or , then go to [facility], has no support at home and no transportation. -- Readmission Within The Last 30 Days -- -- no previous admission in last 30 days Equipment Needed After Discharge other (see comments) (breast pump) -- -- Discharge Disposition -- -- still a patient Current Health Anticipated Changes Related to Illness -- -- inability to work Activity/Self Care Review of Systems Equipment Currently Used at Home -- -- none Living Environment Transportation Available -- -- family or friend will provide Goal: Interdisciplinary Rounds/Family Conf Outcome: Ongoing (Interventions Implemented as Appropriate) 09/13/17329 Interdisciplinary Rounds/Family Conf Participants nursing;patient Problem: Skin Integrity Impairment, Risk/Actual (Adult) Goal: Identify Related Risk Factors and Signs and Symptoms Related risk factors and signs and symptoms are identified upon initiation of Human Response Clinical Practice Guideline (CPG) Outcome: Ongoing (Interventions Implemented as Appropriate) 09/13/17329 Skin Integrity Impairment, Risk/Actual Skin Integrity Impairment, Risk/Actual: Related Risk Factors surgery/procedure Signs and Symptoms (Skin Integrity Impairment) edema Goal: Skin Integrity/Wound Healing Patient will demonstrate the desired outcomes by discharge/transition of care. Outcome: Ongoing (Interventions Implemented as Appropriate) 09/13/17329 Skin Integrity Impairment, Risk/Actual (Adult) Skin Integrity/Wound Healing making progress toward outcome Problem: ( Delivery) (Adult) Goal: Signs and Symptoms of Listed Potential Problems Will be Absent, Minimized or Managed () Signs and symptoms of listed potential problems will be absent, minimized or managed by discharge/transition of care (reference ( Delivery) (Adult) CPG). Outcome: Ongoing (Interventions Implemented as Appropriate) 09/12/172014 ( Delivery) Problems Assessed ( ) all Problems Present ( ) pain Problem: Hysterectomy (Adult) Goal: Signs and Symptoms of Listed Potential Problems Will be Absent, Minimized or Managed (Hysterectomy) Signs and symptoms of listed potential problems will be absent, minimized or managed by discharge/transition of care (reference Hysterectomy (Adult) CPG). Outcome: Ongoing (Interventions Implemented as Appropriate) 09/12/172014 Hysterectomy Problems Assessed (Hysterectomy) all Problems Present (Hysterectomy) pain * Plan of Care - Claudine Gamino RN - 09/12/2017 6:55 PM EST Problem: Patient Care Overview Goal: Plan of Care Review Outcome: Ongoing (Interventions Implemented as Appropriate) 09/12/1718 09/12/17 1847 Plan of Care Review Progress progress toward functional goals as expected -- Coping/Psychosocial Plan Of Care Reviewed With -- patient OUTCOME EVALUATION NOTE: OUTCOME SUMMARY: Amador out, voiding on own. DCd FINISHING PAN OPERATOR, switched to po pain meds and IV toridol. To see babe in ICN a couple times. Pumping X2 without collecting any colostrum. Resting. PLAN MOVING FORWARD: Continue with pumping every 2-3 hours. Pain meds every 4 hours PRN, Toridol every 6 hours. Continuewith IV maint fluids (LR). Monitor I&O. To ICN to perez with babe. INDIVIDUALIZED FALL PREVENTION INTERVENTIONS: Patient-specific fall risk factors per assessment: [current deficits]: weakness and pain...slow anddeliberate movements. Reaches for furniture with wheels for support. Assistance [level of assistance required for transfers and ambulation]: Contact guard only at this point, when awake with pain well controlled..is independent. Supervision [direct monitoring required during toileting and ADLs]: Has call pike within reach and uses appropriately for contact guard. Surveillance [continuous indirect monitoring]: Purposeful rounding and safety checks. Patient-specific fall prevention interventions for sensory deficits provided, if applicable: N/a CPG GOAL OUTCOME EVALUATION: * Plan of Care - Daisy Mike RN - 09/12/2017 5:27 AM EST Problem: Patient Care Overview Goal: Plan of Care Review Outcome: Ongoing (Interventions Implemented as Appropriate) 09/12/17517 Plan of Care Review Progress progress toward functional goals as expected Coping/Psychosocial Plan Of Care Reviewed With patient OUTCOME EVALUATION NOTE: OUTCOME SUMMARY: Pt is on her 1st day post-CS/Hysterectomy, VS stable, pain controlled with use of FINISHING PAN OPERATOR-Dilaudid. Amador catheter in place, draining adequately to bluish tinged urine (due to dye). Pt able to get out of bed & ambulate with standby assist. See care plan goal summaries & comprehensive report for pt status. PLAN MOVING FORWARD: Continue care as directed in CPG care plans. Prepare pt for removal of amador catheter in a few hours. INDIVIDUALIZED FALL PREVENTION: Assistance: Standby assist in ambulation Supervision: Remind pt to call for assistance when needed, call light within reach Surveillance: Purposeful rounding CPG OUTCOME EVALUATION: Goal: Individualization & Mutuality Outcome: Ongoing (Interventions Implemented as Appropriate) 09/10/17 1814 09/12/17517 Individualization Patient Specific Preferences -- pain control, rest/sleep, visit baby in the ICN Patient Specific Goals -- stable post-CS/hysterectomy recovery, pain control Patient Specific Interventions -- post-op care, VS q 4 hrs, meds as ordered, amador care Mutuality/Individual Preferences What Anxieties, Fears or Concerns Do You Have About Your Health or Care? Lack of support from FOB -- What Questions Do You Have About Your Health or Care? -- none at this time What Information Would Help Us Give You More Personalized Care? -- baby is in the ICN Goal: Fall Prevention-Safe Patient Handling Outcome: Ongoing (Interventions Implemented as Appropriate) 09/11/17 1547 09/11/17 2018 09/12/17517 Activity and Safety Assistive Device -- None -- Daily Care Interventions Self-Care Promotion -- -- independence encouraged;BADL personal objects within reach;BADL personal routines maintained Musculoskeletal Interventions Muscle Strengthening -- -- activity/mobility promoted Restraint Interventions Safety Promotion/Fall Prevention -- -- fall prevention program maintained;nonskid shoes/slippers when out of bed Barbour Fall Risk History of Falling 0 -- -- Secondary Diagnosis 15 -- -- Ambulatory Aids 0 -- -- Intravenous Therapy/Heparin/Saline Lock 20 -- -- Gait/Transferring 0 -- -- Mental Status 0 -- -- Score 35 -- -- OTHER Barbour Fall Risk Med -- -- Positioning Body Position -- independent -- Goal: Infection Control Outcome: Ongoing (Interventions Implemented as Appropriate) 09/11/17201709/12/17517 Safety Interventions Isolation Precautions -- standard precautions maintained Infection Prevention -- environmental surveillance performed;rest/sleep promoted;single patient room provided Coping Strategies Supportive Measures active listening utilized;goal setting facilitated;positive reinforcement provided;verbalization of feelings encouraged -- Goal: Discharge Needs Assessment Outcome: Ongoing (Interventions Implemented as Appropriate) 09/12/17517 Discharge Needs Assessment Concerns To Be Addressed no discharge needs identified Readmission Within The Last 30 Days no previous admission in last 30 days Equipment Needed After Discharge other (see comments) (breast pump) Discharge Disposition still a patient Current Health Anticipated Changes Related to Illness inability to work Activity/Self Care Review of Systems Equipment Currently Used at Home none Living Environment Transportation Available family or friend will provide Goal: Interdisciplinary Rounds/Family Conf Outcome: Ongoing (Interventions Implemented as Appropriate) 09/12/17517 Interdisciplinary Rounds/Family Conf Participants nursing;patient Problem: Skin Integrity Impairment, Risk/Actual (Adult) Goal: Identify Related Risk Factors and Signs and Symptoms Related risk factors and signs and symptoms are identified upon initiation of Human Response Clinical Practice Guideline (CPG) Outcome: Ongoing (Interventions Implemented as Appropriate) 09/12/17517 Skin Integrity Impairment, Risk/Actual Skin Integrity Impairment, Risk/Actual: Related Risk Factors surgery/procedure Goal: Skin Integrity/Wound Healing Patient will demonstrate the desired outcomes by discharge/transition of care. Outcome: Ongoing (Interventions Implemented as Appropriate) 09/12/17517 Skin Integrity Impairment, Risk/Actual (Adult) Skin Integrity/Wound Healing making progress toward outcome Problem: ( Delivery) (Adult) Goal: Signs and Symptoms of Listed Potential Problems Will be Absent, Minimized or Managed () Signs and symptoms of listed potential problems will be absent, minimized or managed by discharge/transition of care (reference ( Delivery) (Adult) CPG). Outcome: Ongoing (Interventions Implemented as Appropriate) 09/12/17517 ( Delivery) Problems Assessed ( ) all Problems Present ( ) pain;situational response Problem: Hysterectomy (Adult) Goal: Signs and Symptoms of Listed Potential Problems Will be Absent, Minimized or Managed (Hysterectomy) Signs and symptoms of listed potential problems will be absent, minimized or managed by discharge/transition of care (reference Hysterectomy (Adult) CPG). Outcome: Ongoing (Interventions Implemented as Appropriate) 09/12/17 0518 Hysterectomy Problems Assessed (Hysterectomy) all Problems Present (Hysterectomy) none * L&D Delivery Note - Yoly Cueva MD - 09/11/2017 4:08 PM EST Delivery Note Patient ID: Pam Lake is a 27 y.o. who is HD #46 / 34w0d admitted with vasa previa in setting of two prior C/S. Planned C/S at 34w as recommended, and patient desired a Mirena IUDinsertion. complicated by childhood asthma, BMI 46, GDMA2 on insulin. The patient underwent the followin. Elective repeat mid-transverse section 2. hysterectomy (supracervical) with left distal partial salpingectomy 3. Diagnostic cystoscopy Findings:??Dense adhesions present from anterior uterus to anterior and right lateral abdominal wall / posterior rectus sheath. ?Viable female infant in cephalic presentation, [id number] grams and Apgars of 4, 7 and 9. ?Placenta previa with placenta morbidly adhered to loweruterine segment and overlying the cervix. ?Uterine atony and hemorrhage. ?Normal appearing bilateral fallopian tubes and ovaries. ?Cystoscopy performed at conclusion of the case and intact bladder noted with bilateral jets of methylene blue stained urine. ?? KUB without evidence of retained objects Procedure complicated by hysterectomy and transfusion of 1 unit of blood. Total EBL was 2500 ml. Please see operative note for more details. Cord Gases: Results for MICHELE [place] ( ) as of 09/11/2017 14:44 ?? Ref. Range 09/11/2017 12:10 pH Cord Art Unknown 7.33 pCO2 Cord Art Latest Units: mmHg 50 pO2 Cord Art Latest Units: mmHg 30 BE Cord Art Latest Units: mmol/L -0.4 O2HB Cord Art Latest Units: % 61.3 pH Cord Troy Unknown 7.37 pCO2 Cord Troy Latest Units: mmHg 43 pO2 Cord Troy Latest Units: mmHg 42 BE Cord Troy Latest Units: mmol/L -0.7 O2HB Cord Troy Latest Units: % 82.8 Dr. Sin, attending physician was present for the entire surgery without conflicting clinical responsibility. YOLY CUEVA MD PGY-4 09/16/2017 ?? Information for the patient's : Michele Lake [[id number]] DELIVERY SUMMARY FOR Baby Jess Lake (please note there is a separate summary for each fetus) 09/11/2017 11:58 AM by Lower Segment Transverse Sex: female Gestational Age: 34w0d Labor Events labor?: No GBS colonized: negative steroids: Full Course Cervical ripening date/time: Cervical ripening type Rupture identifier: Rupture 1 Rupture date/time: 09/11/17 1157 Rupture type: artificial rupture of membranes Fluid color: clear Labor onset type: section without labor Augmentation: None Labor onset date/time: Maternal Delivery Complications: hemorrhage, placenta accreta Maternal procedures with delivery: cystoscopy, hysterectomy Mother Delivery Episiotomy: None Perineal lacerations: None Surgical or additional est. blood loss (mL): 2500 Combined est. blood loss (mL): 2500 Delivery ([place]) Delivery Date: 09/11/17 Delivery Time: 1157 Sex: Female Presentation: Vertex Attempted ?: No Delivery Type: Delivery Type (Specific): Lower Segment Transverse Major Indications - : placenta previa Shoulder Dystocia Shoulder dystocia present?: No Delivery Information Delivery Location: OR Delivering Clinician: YOLY CUEVA Staff Present: Yes Other Personnel: Provider Role TIFFANYALISSON Roger Delivery Nurse CHELY SIN Timber Estimator LETITIA SCHMIDT Delivery Assist YOLY CUEVA Resident SAMANTHA OCAMPO Medical Student Anesthesia Method: General, Spinal Complications: inadequate or failed block Cord Vessels: 3 Vessels Complications: None Gases Sent?: Yes Cord Insertion: marginal Assessment & APGARS Living status: Living Apgars 1 Minute: 5 Minute: 10 Minute 15 Minute 20 Minute Skin Color: 0 1 1 Heart Rate: 2 2 2 Reflex Irritability: 1 1 2 Muscle Tone: 1 2 2 Respiratory Effort: 0 1 2 Total: 4 7 9 Apgars Assigned By: DARVIN DORSEY APRN STUDENT,EMILEE RG APRN Resuscitation No data filed Maternal Feeding and Skin to Skin Maternal Choice for [place](s) Feeding on Admission: Skin to skin initiation date/time: Reason skin to skin not initiated: Maternal Acuity [place] Medications [place] Medications Given: vitamin K, erythromycin Measurements Weight: 2035 g Length: 0.4 m Head Circumference: 0.305 m Placenta Date and Time: 09/11/2017 1201 Removal: Manual Removal Appearance: Adherent Labor Length 1st stage: 2nd stage: 3rd stage: Hrs: 0 Min: 3 * Consult Note - Casandra Dallas MD - 09/11/2017 3:44 PM EST consult: We were asked by the obstetrical service to provide consultation on Pam Adame, a 27y.o. old G 5 p [address] [facility] with at 34 weeks gestation complicated with vasa previa. I reviewed history in chart as well as oral history from Pam. She was referred as a maternal- transfer from [facility] Relevant History: Pam Lake is a 27 y.o. at 34 weeks gestation. ?? Her has been complicated by: 1. GDM diagnosed at 7 weeks gestation, controlled on insulin 2. Previous x2 3. Asthma: Uses albuterol rescue inhaler twice annually 4. Marijuana use: Used an eighth of MJ weekly throughout 5. Morbid obesity: BMI 47 today 6. History of depression: Not on medications in She has been hospitalized for more than a month for loss of previa. Plan for elective today Recommendations and advice discussed: I met with Pam to discuss the delivery and management of infant born at 34 week gestation and concerns with loss of previa.. We discussed specific management likely for the anticipated problems of prematurity like resuscitation and stabilization after delivery, feeding issues, apnea of prematurity, jaundice, probable length of stay and the criteria for discharge to home. I also explain her concern for risk for fatal hemorrhage at time of delivery from the loss of previa. At this gestation with steroids, thereis a low risk for serious problems of pulmonary immaturity, intraventricular hemorrhage or retinopathy of prematurity. Survival is nearly 100% in the absence of problems in addition to the prematurity. We discussed general issues of intensive care, including team composition, philosophy of parents as collaborators and active participants in patient care as well as policies regarding rounds, visitation by family members and friends. Parents asked appropriate question which were addressed during our discussion. Time in consultation: 20 minutes were spent in consultation, with 20 minutes spent directly counseling patient. Thank you for requesting consultation by the neonatology service. We will continue to follow coursealong with you. * Op Note - Chely Sin MD - 09/11/2017 2:33 PM EST Operative Note ?? Patient Name: Pam Lake : [id number] MR#: [id number] ?? Case Date: 09/11/2017 ?? Surgeon: Surgeon(s) and Role: * Chely Sin MD - Primary * Yoly Cueva MD - Resident-Surgeon Chief * Samantha Ocampo- DMS-3 ?? Preoperative diagnosis: 1. 34 wk intrauterine 2. Vasa previa 3. Low lying placenta 4. History of 2 prior deliveries ?? Postoperative diagnosis: 1. 34 wk intrauterine 2. Vasa previa 3. Placenta previa with morbidly adherent placenta 4. History of 2 prior deliveries 5. hemorrhage and uterine atony ?? Procedures 1. Elective repeat mid-transverse section 2. hysterectomy (supracervical) with left distal partial salpingectomy 3. Diagnostic cystoscopy Anesthesia: General endotracheal after failed spinal ?? Findings: Dense adhesions present from anterior uterus to anterior and right lateral abdominal wall/ posterior rectus sheath. Viable female infant in cephalic presentation, weighing 2035 grams and Apgars of 4, 7 and 9. Placenta previa with placenta morbidly adhered to lower uterine segment and overlying the cervix. Uterine atony and hemorrhage. Normal appearing bilateral fallopian tubes and ovaries. Cystoscopy performed at conclusion of the case and intact bladder noted with bilateral jets of methylene blue stained urine. KUB without evidence of retained objects ?? Uterotonics: Methergine 0.2 mg IM x 1, Pitocin x 1 bag Hemostatic agents: Floseal Cord Gases: Results for MICHELE [place] GIRL ( ) as of 09/11/2017 14:44 Ref. Range 09/11/2017 12:10 pH Cord Art Unknown 7.33 pCO2 Cord Art Latest Units: mmHg 50 pO2 Cord Art Latest Units: mmHg 30 BE Cord Art Latest Units: mmol/L -0.4 O2HB Cord Art Latest Units: % 61.3 pH Cord Troy Unknown 7.37 pCO2 Cord Troy Latest Units: mmHg 43 pO2 Cord Troy Latest Units: mmHg 42 BE Cord Troy Latest Units: mmol/L -0.7 O2HB Cord Troy Latest Units: % 82.8 Complications: Hysterectomy for morbidly adherent placenta, transfusion ? Intake: Crystalloid 4500 ml 1 unit of pRBC. Output: Estimated Blood Loss: 2500 mL Urine Output: 350 mL Antibiotics: Ancef 2 gm IV x 3 DVT PPX: SCDs Drains: amador to gravity ?? Specimens removed during surgery: Order Name Source Comment Collection Info Order Time SPECIMEN TO PATHOLOGY ? morbidly adherent placenta ceserean hysterectomy Excision 09/11/2017 1:30 PM Time removed from patient: 1:09 PM ? Disposition: awakened from anesthesia, extubated and taken to the recovery room in a stable condition, having suffered no apparent untoward event. ?? Condition: doing well without problems ?? History of Present Illness / Surgical Indications: Pam Lake is a 27 y.o. who is HD #46 / 34w0d admitted with vasa previa in setting of two prior C/S. Planned C/S at 34w as recommended, and patient desired a Mirena IUD insertion. complicated by childhood asthma, BMI 46, GDMA2 on insulin. The risks, benefits, and alternatives were reviewed with the patient. She understood the risks of section to include woundand intraabdominal infections and injuries to major blood vessels, bowel, bladder, and ureters, possible blood transfusion, injury to baby and need for hysterectomy. The patient desired to proceed and signed the consent. ?? Procedure: The patient was brought to the operating room with IV fluids running. Ancef was administered for infection prophylaxis. Neuraxial analgesia was administered, but ultimately found not to be adequate. She was positioned in the dorsal supine position with a left lateral tilt, a amador catheter was placed, then was prepped and draped in the usual sterile fashion including a vulvar betadine prep. A time-out was performed with all team members in agreement to proceed. General anesthesia was achieved. A Pfannenstiel incision was made using a scalpel using her old incision as a guide. The incision was brought down to the fascia using bovie cautery. The fascia was incised with a scalpel, then incision was carried laterally using Brennan scissors. Ale clamps were used to grasp the superior edge of the fascia, then it was dissected off of the rectus muscle using sharp and blunt dissection. Ale clamps were then applied to the inferior edge of the fascia and the pyramidalis muscles were dissected off with blunt dissection and Brennan scissors. Pre-peritoneal fatty tissue was bluntly dissected toexpose the peritoneum. The peritoneum was entered sharply with Metzenbaum scissors and there were moderately dense adhesions noted throughout. The bladder blade was inserted and the vesicouterine peritoneum identified. The bladder blade was repositioned to keep the bladder out of the operative field. The mid uterine segment was incised transversely layer by layer with a scalpel and placental tissuewas noted. The incision was extended with bandage scissors. Hand was inserted into the uterus to confirm a cephalic fetus. The amniotic sac was ruptured with Sarah clamp with clear fluid noted. Thefetal head was elevated out of the pelvis maintaining flexion. Gentle fundal pressure was applied as the head was brought to the incision. A vigorous infant was delivered without difficulty. The cordwas clamped twice quickly and cut (delayed cord clamping intentionally omitted). A segment of cord was collected for cord gases. The infant was handed to the pediatricians. IV oxytocin was administered to facilitate uterine contractions. The uterus was exteriorized. Attempt was made to deliver the placenta intact with manual massage ofthe fundus and traction on the cord, however the lower portion of the placenta appeared to be adherent in the lower uterine segment and overlying the cervix. The placenta was bluntly removed, with fragments of placenta likely morbidly adherent to the lower uterus. The lower uterine segment continued to bleed with moderate briskness. There was also significant uterine atony for which methergine 0.2 mg IM x 1 was given in addition to the oxytocin infusion. Brief consideration was given to placinga Bakri balloon, however abandoned given concern for retained placental fragments. The uterine incision was closed with 0-vicryl in a running locked fashion. Decision was made to proceed with hysterectomy for concern of morbidly adherent placenta and ongoing hemorrhage. Main OR staff wascalled and hysterectomy equipment opened and set up. Bowel was placked away using moist sponges and an David retractor was placed. Carmalt clamps were placed bilaterally along the cornu of the uterus. Upper traction was applied to facilitate exposure.The right round ligament was densely adherent to the right lower uterine segment and the rectus muscles. The round ligaments were identified and were tied off with 0- Vicryl and transected with the Bovie. The bladder was dissected off a lower uterine segment and cervix with Bovie in segments. Bilaterally, an avascular window of the posterior leaf of the broad ligament was identified to clamp and suture ligate the uteroovarian pedicles. Along the right, the dense adhesion between rectus and anterior uterus and round was clamped across, divided with scissors and suture ligated. This essentiallyrestored normal anatomy and the bladder was more completely dissected off the lower uterine segmentand cervix, so that the bladder and ureters were out of the operative field. Bilaterally, the cardinal ligaments with uterine pedicle were then clamped, suture ligated and transected at the level of the internal cervical os, and good hemostasis was noted. Sharply curved Zepplin clamps were then placed along the lower uterine segment to perform a supracervical hysterectomy, as the delineation of the cervix was impossible to assess. The uterus was amputated from the cervix with Venecia scissors. The vaginal / cervical cuff angles were closed with a Dany stitch of 0-vicryl, and the remainderwas closed with 0-Vicryl with misdyt-kd-ylehm sutures. There was bleeding along the left mesosalpinx and mesoovarian ligaments, for which 2-0 Vicryl was used to oversew the area with a running suture. Surgiflo was placed over this area and pressure held; ongoing small amount of oozing noted. Decision was made to proceed with left distal salpingectomy for hemostasis; a Darby clamp was placed alongthe mesosalpinx and specimen was resected with Metzenbaum scissors and suture-ligated with 0-Vicryl. Pelvis was irrigated and good hemostasis noted. The rectus muscles examined and noted to be hemostatic and a small area of peritoneum was oozing for which Floseal was placed. Fascia was closed with #1 looped PDS in 2 segments. Subcutaneous tissue copiously irrigated, hemostasis obtained with Bovie and reapproximated with 2-0 plain gut. Skin was closed with 4-0 Monocryl in a subcuticular manner. ?? Drapes were removed and patient was placed in lithotomy. Methylene blue was administered intravenously. Amador removed. Attention was then turned to cystoscopy, and bilateral ureteral jets were seen. No evidence of bladder injury. Amador was replaced. Patient was extubated and KUB was obtained in the OR prior to transfer to PACU, since a proper count was not performed at the time of decision for hysterectomy. KUB without evidence of retained objects. ?? Attending physician, Dr. Sin, was present for the entire surgery without conflicting clinical responsibilities. ?? YOLY CUEVA MD PGY-4 09/11/2017 * Brief Op Note - Chely Sin MD - 09/11/2017 2:18 PM EST Brief Operative Note Patient Name: Pam Lake : [id number] MR#: [id number] Case Date: 09/11/2017 Surgeon: Surgeon(s) and Role: * Chely Sin MD - Primary * [facility], PROCEDURES * Yoly Cueva MD - Resident-Surgeon Chief Preoperative diagnosis: 1. 34 wk intrauterine 2. Vasa previa 3. Low lying placenta 4. History of 2 prior deliveries Postoperative diagnosis: 1. 34 wk intrauterine 2. Vasa previa 3. Placenta previa with morbidly adherent placenta 4. History of 2 prior deliveries Procedure(s) (LRB): @ DELIVERY (WRVU 16.13) (Bilateral) CYSTO, CYSTOURETHROSCOPY, DIAGNOSTIC (WRVU 2.23) (N/A) @HYSTERECTOMY, ABD, SUPRACERVICAL (WRVU 16.6) (N/A) Anesthesia: General endotracheal Findings: Dense adhesions present from anterior uterus to anterior and right lateral abdominal wall. Viable female infant in cephalic presentation. Placenta previa with placenta morbidly adhered to lower uterine segment and overlying the cervix. Uterine atony and hemorrhage. Normal appearing bilateral fallopian tubes and ovaries. Cystoscopy performed at conclusion of the case and intact bladder noted with bilateral jets of methylene blue stained urine. Complications: Hysterectomy for morbidly adherent placenta Intake: Intraprocedure Crystalloid Total None Transfusion No data found. Output: Estimated Blood Loss: 2500 mL Urine Output:: 350 mL Other Output: (no other output recorded) Drains: amador Specimens removed during surgery: Order Name Source Comment Collection Info Order Time SPECIMEN TO PATHOLOGY morbidly adherent placenta ceserean hysterectomy Excision 09/11/2017 1:30 PM Time removed from patient: 1:09 PM Disposition: awakened from anesthesia, extubated and taken to the recovery room in a stable condition, having suffered no apparent untoward event. Condition: doing well without problems Attestation: Case Date: 09/11/2017 I was present and I participated during the entire procedure (does not need to include opening and closing). (Please see the Surgical Encounter Summary for any Implant and Specimen details pertinent to this patient.) * Plan of Care - Alyson Krishnamurthy RN - 09/10/2017 6:22 PM EST Problem: Patient Care Overview Goal: Plan of Care Review Outcome: Ongoing (Interventions Implemented as Appropriate) 09/10/171813 Plan of Care Review Progress progress toward functional goals as expected Coping/Psychosocial Plan Of Care Reviewed With patient OUTCOME EVALUATION NOTE: OUTCOME SUMMARY: Patient has been doing well today without any new complaints. Reports +FM. Denies VB, LOF, contractions, or cramping. Patient had a reactive NST today. Patient denies pain and has been updated on theplan of care. Pt did not want RN in the room this morning until 1230. Then, pt reported sadness andfrustration in that her FOB told her today he would not be attending the C/S. Pt plans to go on full restrictions in the morning if he is not here. Pt reported some relief from discussing with the RNand was able to use her phone later and saw a friend/her children for dinner. PLAN MOVING FORWARD: Continue to monitor maternal and status, placing on EFM prn. Monitor VS as ordered and prn. Patient agrees to call for any changes or concerns. C/S at 1000 in the morning. Chlorhexidine shower tonight. Labs in AM. Continue blood glucose monitoring as ordered. INDIVIDUALIZED FALL PREVENTION INTERVENTIONS: Patient-specific fall risk factors per assessment: [current deficits]: None. Assistance [level of assistance required for transfers and ambulation]: Independent. Supervision [direct monitoring required during toileting and ADLs]: Independent. Will call if dizzyor in need of assistance. Surveillance [continuous indirect monitoring]: Call pike is within reach. Rounding completed by this RN. Patient-specific fall prevention interventions for sensory deficits provided, if applicable: [X] N/A CPG GOAL OUTCOME EVALUATION: Goal: Individualization & Mutuality Outcome: Ongoing (Interventions Implemented as Appropriate) 08/12/17 0412 09/10/171813 Individualization Patient Specific Preferences -- sleep late, get a sleep aid Patient Specific Goals -- C/S on 09/11/17, no bleeding Patient Specific Interventions -- daily NST, AP care, daily VS Mutuality/Individual Preferences What Anxieties, Fears or Concerns Do You Have About Your Health or Care? -- Lack of support from FOB What Questions Do You Have About Your Health or Care? denies at this time -- What Information Would Help Us Give You More Personalized Care? keep informed of any change in planof care -- Goal: Fall Prevention-Safe Patient Handling Outcome: Ongoing (Interventions Implemented as Appropriate) 08/12/17 0412 08/30/17 0400 09/08/17 1145 Activity and Safety Assistive Device -- None -- Daily Care Interventions Self-Care Promotion -- -- independence encouraged;BADL personal objects within reach;BADL personal routines maintained Musculoskeletal Interventions Muscle Strengthening activity/mobility promoted -- -- Barobur Fall Risk History of Falling -- -- -- Secondary Diagnosis -- -- -- Ambulatory Aids -- -- -- Intravenous Therapy/Heparin/Saline Lock -- -- -- Gait/Transferring -- -- -- Mental Status -- -- -- Score -- -- -- OTHER Barbour Fall Risk -- -- -- Restraint Interventions Safety Promotion/Fall Prevention -- -- -- Positioning Body Position -- -- -- 09/10/17 1501 Activity and Safety Assistive Device -- Daily Care Interventions Self-Care Promotion -- Musculoskeletal Interventions Muscle Strengthening -- Barbour Fall Risk History of Falling 0 Secondary Diagnosis 15 Ambulatory Aids 0 Intravenous Therapy/Heparin/Saline Lock 20 Gait/Transferring 0 Mental Status 0 Score 35 OTHER Barbour Fall Risk Med Restraint Interventions Safety Promotion/Fall Prevention safety round/check completed;nonskid shoes/slippers when out of bed;fall prevention program maintained Positioning Body Position independent Goal: Infection Control Outcome: Ongoing (Interventions Implemented as Appropriate) 09/10/17 1501 Safety Interventions Isolation Precautions standard precautions maintained Infection Prevention rest/sleep promoted;single patient room provided Coping Strategies Supportive Measures active listening utilized;decision-making supported;positive reinforcement provided;problem solving facilitated;relaxation techniques promoted;verbalization of feelings encouraged;self-responsibility promoted Goal: Discharge Needs Assessment Outcome: Ongoing (Interventions Implemented as Appropriate) 09/10/171813 Discharge Needs Assessment Concerns To Be Addressed no discharge needs identified Readmission Within The Last 30 Days no previous admission in last 30 days Provider Choice List(s) Given no Equipment Needed After Discharge none Discharge Disposition still a patient Current Health Anticipated Changes Related to Illness none Activity/Self Care Review of Systems Equipment Currently Used at Home none Living Environment Transportation Available family or friend will provide Goal: Interdisciplinary Rounds/Family Conf Outcome: Ongoing (Interventions Implemented as Appropriate) 08/31/17 0846 09/10/171813 Interdisciplinary Rounds/Family Conf Summary pt reports no ctx, leaking, bleeding, and good FM. -- Participants -- patient;nursing;physician Problem: High-Risk/Critically Ill Patient (Obstetrics) Goal: Signs and Symptoms of Listed Potential Problems Will be Absent, Minimized or Managed (High-Risk/Critically Ill Patient) Signs and symptoms of listed potential problems will be absent, minimized or managed by discharge/transition of care (reference High-Risk/Critically Ill Patient (Obstetrics) CPG). Outcome: Ongoing (Interventions Implemented as Appropriate) 09/10/17 1814 High-Risk/Critically Ill OB Patient Problems Assessed (Critically Ill/High Risk ) anaphylactoid syndrome of ;bleeding;cardiovascular complications;category II (indeterminate)/category III (abnormal) heart rate tr acing;embolism;hypoxia/hypoxemia;infection;IUFD (intrauterine );pain;premature rupture of membranes; labor;umbilical cord prolapse;situational response;pulmonary edema;renal dysfunction Problems Present (Critically Ill/High Risk ) situational response (Found out FOB will not attend C/S. Very sad this morning) * Consult Note - Krsitin Beauchamp - 09/10/2017 3:00 PM EST Behavioral Intervention Team (BIT) Attempted to meet with Pam who was on the phone. She indicated that she was did not know whenshe would be available because she was unsure when the call would end. Requested Pam to have me paged if she wished to meet later today. Kristin Beauchamp, [facility], [facility] [phone] Pager [phone] * Plan of Care - Yeny Marquez RN - 09/09/2017 5:43 AM EST Problem: Patient Care Overview Goal: Plan of Care Review Outcome: Ongoing (Interventions Implemented as Appropriate) 09/08/17 1824 09/08/172125 Plan of Care Review Progress improving -- Coping/Psychosocial Plan Of Care Reviewed With -- patient OUTCOME EVALUATION NOTE: OUTCOME SUMMARY: ? Pt cooperative with care this shift. Denies pain or contractions, no bleeding or leaking. VSS, PIV flushed without issue. Reports active movement. Pt refused to eat dinner and upset with hospital cafeteria, did eventually eat left over carrot cake and a granola bar around 2200. Refused morning fasting BG. Pt requesting laundry to be done, dirty clothes washed in ICN by this nurse overnight and returned to room. Pt verbalized excitement over upcoming scheduled c/s and being able to meet her baby. Pt OOB independently- will continue to monitor. ? PLAN MOVING FORWARD: ? qshift VS, daily NST, scheduled c/s 09/11 ? INDIVIDUALIZED FALL PREVENTION INTERVENTIONS: ? Patient-specific fall risk factors per assessment: [current deficits]: ? Assistance [level of assistance required for transfers and ambulation]: independent ? Supervision [direct monitoring required during toileting and ADLs]: independent ? Surveillance [continuous indirect monitoring]: purposeful rounding Patient-specific fall prevention interventions for sensory deficits provided, if applicable: [X] N/A CPG GOAL OUTCOME EVALUATION: Goal: Individualization & Mutuality Outcome: Ongoing (Interventions Implemented as Appropriate) 08/11/17 03108/12/17 04108/17/17 1830 Individualization Patient Specific Preferences -- -- Likes to sleep until noon Patient Specific Goals -- remain for at least 34 weeks -- Patient Specific Interventions AP care, VS as ordered, blood glucose monitoring as ordered, daily NST -- -- Mutuality/Individual Preferences What Anxieties, Fears or Concerns Do You Have About Your Health or Care? -- ultrasound results still with vasa previa, difficulty in coping with being away from kids -- What Questions Do You Have About Your Health or Care? -- denies at this time -- What Information Would Help Us Give You More Personalized Care? -- keep informed of any change in plan of care -- Goal: Fall Prevention-Safe Patient Handling Outcome: Ongoing (Interventions Implemented as Appropriate) 08/12/17 0412 08/30/17 0400 09/08/17 1145 Activity and Safety Assistive Device -- None -- Daily Care Interventions Self-Care Promotion -- -- independence encouraged;BADL personal objects within reach;BADL personal routines maintained Musculoskeletal Interventions Muscle Strengthening activity/mobility promoted -- -- Barbour Fall Risk History of Falling -- -- -- Secondary Diagnosis -- -- -- Ambulatory Aids -- -- -- Intravenous Therapy/Heparin/Saline Lock -- -- -- Gait/Transferring -- -- -- Mental Status -- -- -- Score -- -- -- OTHER Barbour Fall Risk -- -- -- Restraint Interventions Safety Promotion/Fall Prevention -- -- -- Positioning Body Position -- -- -- 09/08/172125 Activity and Safety Assistive Device -- Daily Care Interventions Self-Care Promotion -- Musculoskeletal Interventions Muscle Strengthening -- Barbour Fall Risk History of Falling 0 Secondary Diagnosis 15 Ambulatory Aids 0 Intravenous Therapy/Heparin/Saline Lock 20 Gait/Transferring 0 Mental Status 0 Score 35 OTHER Barbour Fall Risk Med Restraint Interventions Safety Promotion/Fall Prevention safety round/check completed;nonskid shoes/slippers when out of bed Positioning Body Position independent Goal: Infection Control Outcome: Ongoing (Interventions Implemented as Appropriate) 09/08/17 1145 09/08/172125 Safety Interventions Isolation Precautions -- standard precautions maintained Infection Prevention -- single patient room provided Coping Strategies Supportive Measures active listening utilized;decision-making supported;goal setting facilitated;positive reinforcement provided;problem solving facilitated;relaxation techniques promoted;self-reflection promoted;self-care encouraged;verbalization of feelings encouraged;self-responsibility promoted-- Goal: Discharge Needs Assessment Outcome: Ongoing (Interventions Implemented as Appropriate) 08/26/17 1854 08/30/17 0400 Discharge Needs Assessment Concerns To Be Addressed -- no discharge needs identified Readmission Within The Last 30 Days no previous admission in last 30 days -- Provider Choice List(s) Given no -- Equipment Needed After Discharge -- none Discharge Disposition -- still a patient Current Health Anticipated Changes Related to Illness -- none Activity/Self Care Review of Systems Equipment Currently Used at Home -- none Living Environment Transportation Available -- family or friend will provide Goal: Interdisciplinary Rounds/Family Conf Outcome: Ongoing (Interventions Implemented as Appropriate) 08/31/17 0846 Interdisciplinary Rounds/Family Conf Summary pt reports no ctx, leaking, bleeding, and good FM. Participants patient;physician;nursing (MD Barrett, [facility]) Problem: High-Risk/Critically Ill Patient (Obstetrics) Goal: Signs and Symptoms of Listed Potential Problems Will be Absent, Minimized or Managed (High-Risk/Critically Ill Patient) Signs and symptoms of listed potential problems will be absent, minimized or managed by discharge/transition of care (reference High-Risk/Critically Ill Patient (Obstetrics) CPG). Outcome: Ongoing (Interventions Implemented as Appropriate) 09/08/17 1145 High-Risk/Critically Ill OB Patient Problems Assessed (Critically Ill/High Risk ) other (see comments) (all) Problems Present (Critically Ill/High Risk ) none * Plan of Care - Alisson Ham RN - 09/08/2017 6:26 PM EST Problem: Patient Care Overview Goal: Plan of Care Review Outcome: Ongoing (Interventions Implemented as Appropriate) 09/08/17 1145 09/08/17 1824 Plan of Care Review Progress -- improving Coping/Psychosocial Plan Of Care Reviewed With patient -- OUTCOME EVALUATION NOTE: OUTCOME SUMMARY: Pt had a non-eventful shift. VSS, up ad-catina, voiding spontaneously. Pt denies cramping, leaking, orbleeding. Pt states fetus is active. Betamethasone plus rescue dose and magnesium complete. Pt corporative with plan of care and agrees to call RN if needs arise. PLAN MOVING FORWARD: Continue NST daily, SCDs, blood glucose monitoring with insulin coverage if indicated and encouraging appropriate food choices with carbohydrate control diet. Encourage ambulation and water intake. INDIVIDUALIZED FALL PREVENTION INTERVENTIONS: Patient-specific fall risk factors per assessment: [current deficits]: none Assistance [level of assistance required for transfers and ambulation]: none Supervision [direct monitoring required during toileting and ADLs]: independent * Consult Note - Kristin Beauchamp - 09/08/2017 3:48 PM EST Behavioral Intervention Team (BIT) Attempted to meet with Pam who politely declined meeting today. She planned to nap after she was disconnected from the heart monitor and requested I return later. Kristin Beauchamp, [facility], [facility] [phone] Pager [phone] * Plan of Care - Leo Becca L, RN - 09/06/2017 4:02 PM EST Problem: Patient Care Overview Goal: Plan of Care Review Outcome: Ongoing (Interventions Implemented as Appropriate) 09/05/17 1410 Coping/Psychosocial Plan Of Care Reviewed With patient OUTCOME EVALUATION NOTE: OUTCOME SUMMARY: Pam is doing well today. She voices no c/o. VSS. BG levels WDL. She rec'vd 16u of NPH as documented on OCT. She will call out when ready for her NST, as she has family @ bs and declines @ this time. PLAN MOVING FORWARD: Continue to monitor INDIVIDUALIZED FALL PREVENTION INTERVENTIONS: Patient-specific fall risk factors per assessment: [current deficits]: none Assistance [level of assistance required for transfers and ambulation]: independent Supervision [direct monitoring required during toileting and ADLs]: Call light in reach Surveillance [continuous indirect monitoring]: Purposeful rounding Patient-specific fall prevention interventions for sensory deficits provided, if applicable: CPG GOAL OUTCOME EVALUATION: Goal: Individualization & Mutuality Outcome: Ongoing (Interventions Implemented as Appropriate) 08/11/17 0310 08/12/17 0412 08/17/17 1830 Individualization Patient Specific Preferences -- -- Likes to sleep until noon Patient Specific Goals -- remain for at least 34 weeks -- Patient Specific Interventions AP care, VS as ordered, blood glucose monitoring as ordered, daily NST -- -- Mutuality/Individual Preferences What Anxieties, Fears or Concerns Do You Have About Your Health or Care? -- ultrasound results still with vasa previa, difficulty in coping with being away from kids -- What Questions Do You Have About Your Health or Care? -- denies at this time -- What Information Would Help Us Give You More Personalized Care? -- keep informed of any change in plan of care -- Goal: Fall Prevention-Safe Patient Handling Outcome: Ongoing (Interventions Implemented as Appropriate) 08/12/17 0412 08/30/17 0400 09/06/17 1215 Activity and Safety Assistive Device -- None -- Daily Care Interventions Self-Care Promotion -- -- independence encouraged;BADL personal objects within reach;BADL personal routines maintained Musculoskeletal Interventions Muscle Strengthening activity/mobility promoted -- -- Barbour Fall Risk History of Falling -- -- 0 Secondary Diagnosis -- -- 0 Ambulatory Aids -- -- 0 Intravenous Therapy/Heparin/Saline Lock -- -- 20 Gait/Transferring -- -- 0 Mental Status -- -- 0 Score -- -- 20 OTHER Barbour Fall Risk -- -- Low Restraint Interventions Safety Promotion/Fall Prevention -- -- -- Positioning Body Position -- -- independent 09/06/17 1412 Activity and Safety Assistive Device -- Daily Care Interventions Self-Care Promotion -- Musculoskeletal Interventions Muscle Strengthening -- Barbour Fall Risk History of Falling -- Secondary Diagnosis -- Ambulatory Aids -- Intravenous Therapy/Heparin/Saline Lock -- Gait/Transferring -- Mental Status -- Score -- OTHER Barbour Fall Risk -- Restraint Interventions Safety Promotion/Fall Prevention safety round/check completed Positioning Body Position -- Goal: Infection Control Outcome: Ongoing (Interventions Implemented as Appropriate) 09/05/17 1410 09/06/17 1215 Safety Interventions Isolation Precautions standard precautions maintained -- Infection Prevention single patient room provided -- Coping Strategies Supportive Measures -- active listening utilized Goal: Discharge Needs Assessment Outcome: Ongoing (Interventions Implemented as Appropriate) 08/26/17 1854 08/30/17 0400 Discharge Needs Assessment Concerns To Be Addressed -- no discharge needs identified Readmission Within The Last 30 Days no previous admission in last 30 days -- Provider Choice List(s) Given no -- Equipment Needed After Discharge -- none Discharge Disposition -- still a patient Current Health Anticipated Changes Related to Illness -- none Activity/Self Care Review of Systems Equipment Currently Used at Home -- none Living Environment Transportation Available -- family or friend will provide Problem: High-Risk/Critically Ill Patient (Obstetrics) Goal: Signs and Symptoms of Listed Potential Problems Will be Absent, Minimized or Managed (High-Risk/Critically Ill Patient) Signs and symptoms of listed potential problems will be absent, minimized or managed by discharge/transition of care (reference High-Risk/Critically Ill Patient (Obstetrics) CPG). Outcome: Ongoing (Interventions Implemented as Appropriate) 09/06/17 1215 High-Risk/Critically Ill OB Patient Problems Assessed (Critically Ill/High Risk ) other (see comments) (all) Problems Present (Critically Ill/High Risk ) none * Plan of Care - Becca Bailey RN - 09/05/2017 4:51 PM EST Problem: Patient Care Overview Goal: Plan of Care Review Outcome: Ongoing (Interventions Implemented as Appropriate) 09/05/17 1410 Coping/Psychosocial Plan Of Care Reviewed With patient OUTCOME EVALUATION NOTE: OUTCOME SUMMARY: Pam is doing well today and has been calm & cooperative. She has rec'vd her NPH. She has not required any rescue coverage, as her BG levels were WDL. Her NST was reactive for gestation. VSS. PLAN MOVING FORWARD: Continue to monitor for any s/s of PTL/bleeding. INDIVIDUALIZED FALL PREVENTION INTERVENTIONS: Patient-specific fall risk factors per assessment: [current deficits]: none Assistance [level of assistance required for transfers and ambulation]: independent Supervision [direct monitoring required during toileting and ADLs]: Call light in reach Surveillance [continuous indirect monitoring]: Purposeful rounding Patient-specific fall prevention interventions for sensory deficits provided, if applicable: CPG GOAL OUTCOME EVALUATION: Goal: Individualization & Mutuality Outcome: Ongoing (Interventions Implemented as Appropriate) 08/11/17 0310 08/12/17 0412 08/17/17 1830 Individualization Patient Specific Preferences -- -- Likes to sleep until noon Patient Specific Goals -- remain for at least 34 weeks -- Patient Specific Interventions AP care, VS as ordered, blood glucose monitoring as ordered, daily NST -- -- Mutuality/Individual Preferences What Anxieties, Fears or Concerns Do You Have About Your Health or Care? -- ultrasound results still with vasa previa, difficulty in coping with being away from kids -- What Questions Do You Have About Your Health or Care? -- denies at this time -- What Information Would Help Us Give You More Personalized Care? -- keep informed of any change in plan of care -- Goal: Fall Prevention-Safe Patient Handling Outcome: Ongoing (Interventions Implemented as Appropriate) 08/12/17 0412 08/30/17 0400 09/04/17 1300 Activity and Safety Assistive Device -- None -- Daily Care Interventions Self-Care Promotion -- -- independence encouraged Musculoskeletal Interventions Muscle Strengthening activity/mobility promoted -- -- Barbour Fall Risk History of Falling -- -- -- Secondary Diagnosis -- -- -- Ambulatory Aids -- -- -- Intravenous Therapy/Heparin/Saline Lock -- -- -- Gait/Transferring -- -- -- Mental Status -- -- -- Score -- -- -- OTHER Barbour Fall Risk -- -- -- Restraint Interventions Safety Promotion/Fall Prevention -- -- -- Positioning Body Position -- -- independent 09/05/17 1410 09/05/17 1610 Activity and Safety Assistive Device -- -- Daily Care Interventions Self-Care Promotion -- -- Musculoskeletal Interventions Muscle Strengthening -- -- Barbour Fall Risk History of Falling 0 -- Secondary Diagnosis 0 -- Ambulatory Aids 0 -- Intravenous Therapy/Heparin/Saline Lock 20 -- Gait/Transferring 0 -- Mental Status 0 -- Score 20 -- OTHER Barbour Fall Risk Low -- Restraint Interventions Safety Promotion/Fall Prevention -- safety round/check completed Positioning Body Position -- -- Goal: Infection Control Outcome: Ongoing (Interventions Implemented as Appropriate) 09/05/17 1410 Safety Interventions Isolation Precautions standard precautions maintained Infection Prevention single patient room provided Coping Strategies Supportive Measures active listening utilized Goal: Discharge Needs Assessment Outcome: Ongoing (Interventions Implemented as Appropriate) 08/26/17 1854 08/30/17 0400 Discharge Needs Assessment Concerns To Be Addressed -- no discharge needs identified Readmission Within The Last 30 Days no previous admission in last 30 days -- Provider Choice List(s) Given no -- Equipment Needed After Discharge -- none Discharge Disposition -- still a patient Current Health Anticipated Changes Related to Illness -- none Activity/Self Care Review of Systems Equipment Currently Used at Home -- none Living Environment Transportation Available -- family or friend will provide Problem: High-Risk/Critically Ill Patient (Obstetrics) Goal: Signs and Symptoms of Listed Potential Problems Will be Absent, Minimized or Managed (High-Risk/Critically Ill Patient) Signs and symptoms of listed potential problems will be absent, minimized or managed by discharge/transition of care (reference High-Risk/Critically Ill Patient (Obstetrics) CPG). Outcome: Ongoing (Interventions Implemented as Appropriate) 09/05/17 1410 High-Risk/Critically Ill OB Patient Problems Assessed (Critically Ill/High Risk ) other (see comments) (all) Problems Present (Critically Ill/High Risk ) none * Plan of Care - Samira Reich RN - 09/05/2017 5:59 AM EST Problem: High-Risk/Critically Ill Patient (Obstetrics) Goal: Signs and Symptoms of Listed Potential Problems Will be Absent, Minimized or Managed (High-Risk/Critically Ill Patient) Signs and symptoms of listed potential problems will be absent, minimized or managed by discharge/transition of care (reference High-Risk/Critically Ill Patient (Obstetrics) CPG). Outcome: Ongoing (Interventions Implemented as Appropriate) OUTCOME EVALUATION NOTE: OUTCOME SUMMARY: Plan of care for today reviewed with patient, including VS, medications, EFM, diet, activity and indications for delivery. Patient denies UCs, SALMERON, visual changes, N/V, epigastric pain, LOF, and VB. Patient reports +FM. Patient up ad catina to bathroom, Patient tolerating PO diet and adequate PO fluids. Patient verbalizes understanding plan of care. PLAN MOVING FORWARD: Continue current plan of care INDIVIDUALIZED FALL PREVENTION INTERVENTIONS: Patient-specific fall risk factors per assessment: [current deficits]: See flowsheet Assistance [level of assistance required for transfers and ambulation]: See flowsheet Supervision [direct monitoring required during toileting and ADLs]: No Surveillance [continuous indirect monitoring]: Purposeful rounding Patient-specific fall prevention interventions for sensory deficits provided, if applicable: [X] N/A CPG GOAL OUTCOME EVALUATION: * Plan of Care - Samira Reich RN - 09/04/2017 5:40 AM EST Problem: High-Risk/Critically Ill Patient (Obstetrics) Goal: Signs and Symptoms of Listed Potential Problems Will be Absent, Minimized or Managed (High-Risk/Critically Ill Patient) Signs and symptoms of listed potential problems will be absent, minimized or managed by discharge/transition of care (reference High-Risk/Critically Ill Patient (Obstetrics) CPG). Outcome: Ongoing (Interventions Implemented as Appropriate) OUTCOME EVALUATION NOTE: OUTCOME SUMMARY: Plan of care for today reviewed with patient, including VS, medications, EFM, diet, activity and indications for delivery. Patient denies UCs, SALMERON, visual changes, N/V, epigastric pain, LOF, and VB. Patient reports +FM. Patient up ad catina to bathroom, Patient tolerating PO diet and adequate PO fluids. Patient verbalizes understanding plan of care. PLAN MOVING FORWARD: Continue current plan of care INDIVIDUALIZED FALL PREVENTION INTERVENTIONS: Patient-specific fall risk factors per assessment: [current deficits]: See flowsheet Assistance [level of assistance required for transfers and ambulation]: See flowsheet Supervision [direct monitoring required during toileting and ADLs]: No Surveillance [continuous indirect monitoring]: Purposeful rounding Patient-specific fall prevention interventions for sensory deficits provided, if applicable: [X] N/A CPG GOAL OUTCOME EVALUATION: * Consult Note - Kristin Beauchamp - 09/03/2017 3:49 PM EST Behavioral Intervention Team (BIT) Referral: Pam Lake was admitted for vasa previa on 07/28 and was referred to BIT HUMAN RESOURCES PSYCHOLOGIST for supportive therapy due to her prolonged admission. Record reviewed and discussed with BP nurses and Stephanie CORTEZ. Relevant Information: Introduced the role of BIT SW and the following was discussed. Pam lives in [facility] with her son, Blayne Bang, and her daughter Jermaine, Julieta. During this admission, her children are being cared for by her ex- who is the father of Jermaine. The FOB lives in [place], their relationship is cordial and they talk occasionally on the phone. She feels abandoned by him and isunsure if he will be involved with this baby. Pam is the youngest of three children. She has limited contact with her brother who resides in [place], [place]., her sister is addicted to drugs and lives on the streets of [place], [place]. Pam has 13 nieces and nephews, age 3-13 and enjoys having all of them at her house for sleep overs. 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 Pam identifies her friends as her emotional support system, as well as, her therapist at [facility] who she has seen for 2 years. This prolonged admission has been difficult because her friends, who live over an hour away, have not been able to visit. Her ex- brings her children for a visit on the weekends and she missesthem very much. Additionally, Pam feels like she is in [facility] because she is restricted to the unit. She is [place] and loves to cook and has had particular difficulty with the food choices here. Pam reported she has been irritable at times and then feels guilty about her behavior.She noted that her mood is brighter as her due date is 8 days away. Pam shared her ultrasoundpictures, expressing concern about her baby's weight and is hoping that baby Kelly will not have a prolonged stay in the NICU. While her baby remains at [facility], she will stay at [place] [facility] [place] and have her other two children come on the weekends. Pam was diagnosed with depression after her mother when she was 18 and with lazaro. Her grandfather 3 years later which was a significant loss for her as she was brought up by her grandparents. She has done a lot of grief work, as well as, addressed her childhood trauma and feels that she has successfully put most of the past behind her. Pam feels her depression is minimal and identifies herself as primarily anxious. She stated that her therapist has taught her numerous skills to manage her anxiety, which she utilizes. She c/o sleep-onset insomnia which is a source of frustration. At home she frequently stays up until 1-2 AM but of late she has observed the sunrise before she finally is able to sleep, admitting that sometimes she cannot shut down herbrain. This proposal lead writer provided her with online resources to address her insomnia, anxiety and depression and will connect her with the [facility] Program which she would enjoy. Assessment/Plan: Pam is understandably frustrated, has occasionally expressed it inappropriately and then regrets her behavior. As recognized by her compassionate nursing staff, Pam's irritability is due to a lack of control. However, she has a delightful sense of humor and is well liked by her nurses. By her admission today she is feeling better and consequently more in control: her friends and family have brought her food she enjoys; her children are visiting this weekend and her due date is only 8 days away. Pam would benefit from CBT to address her insomnia and additional coping skills to address her anxiety. Barb THOMPSONy Sylvester and I will continue to follow during this admission to provide support and interventions. STACY Dorantes, [facility] [phone] Pager [phone] * Consult Note - Kristin Beauchamp - 09/03/2017 1:32 PM EST Behavioral Intervention Team ([facility]) Attempted to meet with Pam who was napping and requested I return later today. STACY Curtis, [facility] [phone] Pager [phone] * Consult Note - Kristin Beauchamp - 09/03/2017 10:30 AM EST Behavioral Intervention Team ([facility]) Referral: Pam Lake was admitted for vasa previa on on 07/28 and was referred to [facility]YCHOLOG[facility] for supportive therapy due to her prolonged admission. Record reviewed and discussed with BP RN, Letitia Kelley and HUMAN RESOURCES PSYCHOLOGIST Stephanie. Per nursing and social work reports, this admission has been difficult for Pam, who has two other children at home. Additionally she is restricted to the unit in order to remain in close proximity to the OR. [facility] HUMAN RESOURCES PSYCHOLOGIST will return later today as Pam prefers not to be disturbed until after noon time. STACY Dorantes, [facility] [phone] Pager [phone] * Plan of Care - Yeny Marquez RN - 09/03/2017 6:45 AM EST Problem: Patient Care Overview Goal: Plan of Care Review Outcome: Ongoing (Interventions Implemented as Appropriate) 08/31/17 1833 09/02/174 Plan of Care Review Progress no change -- Coping/Psychosocial Plan Of Care Reviewed With -- patient OUTCOME EVALUATION NOTE: OUTCOME SUMMARY: Pt cooperative with care this shift. Denies pain or contractions, no bleeding or leaking. VSS, new PIV placed this shift. Pt refused BG to be checked for midnight insulin order. OOB independently- will continue to monitor. PLAN MOVING FORWARD: qshift VS, daily NST, scheduled c/s 09/11 INDIVIDUALIZED FALL PREVENTION INTERVENTIONS: Patient-specific fall risk factors per assessment: [current deficits]: Assistance [level of assistance required for transfers and ambulation]: independent Supervision [direct monitoring required during toileting and ADLs]: independent Surveillance [continuous indirect monitoring]: purposeful rounding Patient-specific fall prevention interventions for sensory deficits provided, if applicable: [X] N/A CPG GOAL OUTCOME EVALUATION: Goal: Individualization & Mutuality Outcome: Ongoing (Interventions Implemented as Appropriate) 08/11/17 0310 08/12/1741108/17/17 1830 Individualization Patient Specific Preferences -- -- Likes to sleep until noon Patient Specific Goals -- remain for at least 34 weeks -- Patient Specific Interventions AP care, VS as ordered, blood glucose monitoring as ordered, daily NST -- -- Mutuality/Individual Preferences What Anxieties, Fears or Concerns Do You Have About Your Health or Care? -- ultrasound results still with vasa previa, difficulty in coping with being away from kids -- What Questions Do You Have About Your Health or Care? -- denies at this time -- What Information Would Help Us Give You More Personalized Care? -- keep informed of any change in plan of care -- Goal: Fall Prevention-Safe Patient Handling Outcome: Ongoing (Interventions Implemented as Appropriate) 08/12/1741108/30/17 0400 09/01/17 0848 Activity and Safety Assistive Device -- None -- Daily Care Interventions Self-Care Promotion -- -- independence encouraged Musculoskeletal Interventions Muscle Strengthening activity/mobility promoted -- -- Barbour Fall Risk History of Falling -- -- -- Secondary Diagnosis -- -- -- Ambulatory Aids -- -- -- Intravenous Therapy/Heparin/Saline Lock -- -- -- Gait/Transferring -- -- -- Mental Status -- -- -- Score -- -- -- OTHER Barbour Fall Risk -- -- -- Restraint Interventions Safety Promotion/Fall Prevention -- -- -- Positioning Body Position -- -- -- 09/02/17 0843 Activity and Safety Assistive Device -- Daily Care Interventions Self-Care Promotion -- Musculoskeletal Interventions Muscle Strengthening -- Barbour Fall Risk History of Falling 0 Secondary Diagnosis 15 Ambulatory Aids 0 Intravenous Therapy/Heparin/Saline Lock 20 Gait/Transferring 0 Mental Status 0 Score 35 OTHER Barbour Fall Risk Med Restraint Interventions Safety Promotion/Fall Prevention nonskid shoes/slippers when out of bed;safety round/check completed;fall prevention program maintained Positioning Body Position independent Goal: Infection Control Outcome: Ongoing (Interventions Implemented as Appropriate) 09/02/17 2114 Safety Interventions Isolation Precautions standard precautions maintained Infection Prevention single patient room provided;rest/sleep promoted Coping Strategies Supportive Measures active listening utilized;self-care encouraged;self- reflection promoted;self-responsibility promoted;verbalization of feelings encouraged Goal: Discharge Needs Assessment Outcome: Ongoing (Interventions Implemented as Appropriate) 08/26/17 1854 08/30/17 0400 Discharge Needs Assessment Concerns To Be Addressed -- no discharge needs identified Readmission Within The Last 30 Days no previous admission in last 30 days -- Provider Choice List(s) Given no -- Equipment Needed After Discharge -- none Discharge Disposition -- still a patient Current Health Anticipated Changes Related to Illness -- none Activity/Self Care Review of Systems Equipment Currently Used at Home -- none Living Environment Transportation Available -- family or friend will provide Goal: Interdisciplinary Rounds/Family Conf Outcome: Ongoing (Interventions Implemented as Appropriate) 08/31/17 0846 Interdisciplinary Rounds/Family Conf Summary pt reports no ctx, leaking, bleeding, and good FM. Participants patient;physician;nursing (MD Barrett, [facility]) Problem: High-Risk/Critically Ill Patient (Obstetrics) Goal: Signs and Symptoms of Listed Potential Problems Will be Absent, Minimized or Managed (High-Risk/Critically Ill Patient) Signs and symptoms of listed potential problems will be absent, minimized or managed by discharge/transition of care (reference High-Risk/Critically Ill Patient (Obstetrics) CPG). Outcome: Ongoing (Interventions Implemented as Appropriate) 09/02/17 1240 High-Risk/Critically Ill OB Patient Problems Assessed (Critically Ill/High Risk ) none (all) Problems Present (Critically Ill/High Risk ) none * Plan of Care - Joy Coleman RN - 09/02/2017 6:18 PM EST Problem: Patient Care Overview Goal: Plan of Care Review Outcome: Ongoing (Interventions Implemented as Appropriate) 08/31/17 1833 09/02/17 1240 Plan of Care Review Progress no change -- Coping/Psychosocial Plan Of Care Reviewed With -- patient OUTCOME EVALUATION NOTE: OUTCOME SUMMARY: Pt stable this shift, VSS, +FM, -ctx, -LOF, bleeding. BG well controlled this shift. No complaints of pain, voiding, passing gas and having BMs. PLAN MOVING FORWARD: Appropriate AP care, C/S 09/11 if continues to be stable. INDIVIDUALIZED FALL PREVENTION INTERVENTIONS: Patient-specific fall risk factors per assessment: [current deficits]: IV sites Assistance [level of assistance required for transfers and ambulation]: Indpendent Supervision [direct monitoring required during toileting and ADLs]: Independent Surveillance [continuous indirect monitoring]: Purposeful rounding, call light in reach Patient-specific fall prevention interventions for sensory deficits provided, if applicable: CPG GOAL OUTCOME EVALUATION: Goal: Individualization & Mutuality Outcome: Ongoing (Interventions Implemented as Appropriate) 08/11/17 0310 08/12/17 04108/17/17 1830 Individualization Patient Specific Preferences -- -- Likes to sleep until noon Patient Specific Goals -- remain for at least 34 weeks -- Patient Specific Interventions AP care, VS as ordered, blood glucose monitoring as ordered, daily NST -- -- Mutuality/Individual Preferences What Anxieties, Fears or Concerns Do You Have About Your Health or Care? -- ultrasound results still with vasa previa, difficulty in coping with being away from kids -- What Questions Do You Have About Your Health or Care? -- denies at this time -- What Information Would Help Us Give You More Personalized Care? -- keep informed of any change in plan of care -- Goal: Fall Prevention-Safe Patient Handling Outcome: Ongoing (Interventions Implemented as Appropriate) 08/12/17 0412 08/30/17 0400 09/01/17 0848 Activity and Safety Assistive Device -- None -- Daily Care Interventions Self-Care Promotion -- -- independence encouraged Musculoskeletal Interventions Muscle Strengthening activity/mobility promoted -- -- Barbour Fall Risk History of Falling -- -- -- Secondary Diagnosis -- -- -- Ambulatory Aids -- -- -- Intravenous Therapy/Heparin/Saline Lock -- -- -- Gait/Transferring -- -- -- Mental Status -- -- -- Score -- -- -- OTHER Barbour Fall Risk -- -- -- Restraint Interventions Safety Promotion/Fall Prevention -- -- -- Positioning Body Position -- -- -- 09/02/17 1240 Activity and Safety Assistive Device -- Daily Care Interventions Self-Care Promotion -- Musculoskeletal Interventions Muscle Strengthening -- Barbour Fall Risk History of Falling 0 Secondary Diagnosis 15 Ambulatory Aids 0 Intravenous Therapy/Heparin/Saline Lock 20 Gait/Transferring 0 Mental Status 0 Score 35 OTHER Barbour Fall Risk Med Restraint Interventions Safety Promotion/Fall Prevention nonskid shoes/slippers when out of bed;fall prevention program maintained;safety round/check completed Positioning Body Position independent Goal: Infection Control Outcome: Ongoing (Interventions Implemented as Appropriate) 09/02/17 1240 Safety Interventions Isolation Precautions standard precautions maintained Infection Prevention single patient room provided;rest/sleep promoted;equipment surfaces disinfected;environmental surveillance performed Coping Strategies Supportive Measures active listening utilized;counseling provided;decision- making supported;goal setting facilitated;positive reinforcement provided;problem solving facilitated;relaxation techniques promoted;self-care encouraged;self-reflection promoted;self-responsibility promoted;verbalization offeelings encouraged Goal: Discharge Needs Assessment Outcome: Ongoing (Interventions Implemented as Appropriate) 08/26/17 1854 08/30/17 0400 Discharge Needs Assessment Concerns To Be Addressed -- no discharge needs identified Readmission Within The Last 30 Days no previous admission in last 30 days -- Provider Choice List(s) Given no -- Equipment Needed After Discharge -- none Discharge Disposition -- still a patient Current Health Anticipated Changes Related to Illness -- none Activity/Self Care Review of Systems Equipment Currently Used at Home -- none Living Environment Transportation Available -- family or friend will provide Goal: Interdisciplinary Rounds/Family Conf Outcome: Ongoing (Interventions Implemented as Appropriate) 08/31/17 0846 Interdisciplinary Rounds/Family Conf Summary pt reports no ctx, leaking, bleeding, and good FM. Participants patient;physician;nursing (MD Barrett, [facility]) Problem: High-Risk/Critically Ill Patient (Obstetrics) Goal: Signs and Symptoms of Listed Potential Problems Will be Absent, Minimized or Managed (High-Risk/Critically Ill Patient) Signs and symptoms of listed potential problems will be absent, minimized or managed by discharge/transition of care (reference High-Risk/Critically Ill Patient (Obstetrics) [facility]). Outcome: Ongoing (Interventions Implemented as Appropriate) 09/02/17 1240 High-Risk/Critically Ill OB Patient Problems Assessed (Critically Ill/High Risk ) none (all) Problems Present (Critically Ill/High Risk ) none * Plan of Care - Ariadna Marroquin RN - 09/01/2017 6:04 PM EST Problem: Patient Care Overview Goal: Plan of Care Review Outcome: Ongoing (Interventions Implemented as Appropriate) 08/31/17 1833 09/01/17 0848 Plan of Care Review Progress no change -- Coping/Psychosocial Plan Of Care Reviewed With -- patient OUTCOME EVALUATION NOTE: OUTCOME SUMMARY: Pt very frustrated and withdrawn throughout shift. US today with no change to vessels. NST reactive. VSS and afebrile. Pt declined to eat breakfast and lunch, states she is having visitors tonight that will bring her dinner. PLAN MOVING FORWARD: No change to POC, continue to monitor. Goal: Individualization & Mutuality 08/11/17 0310 08/12/172 08/17/17 1830 Individualization Patient Specific Preferences -- -- Likes to sleep until noon Patient Specific Goals -- remain for at least 34 weeks -- Patient Specific Interventions AP care, VS as ordered, blood glucose monitoring as ordered, daily NST -- -- Mutuality/Individual Preferences What Anxieties, Fears or Concerns Do You Have About Your Health or Care? -- ultrasound results still with vasa previa, difficulty in coping with being away from kids -- What Questions Do You Have About Your Health or Care? -- denies at this time -- What Information Would Help Us Give You More Personalized Care? -- keep informed of any change in plan of care -- Goal: Fall Prevention-Safe Patient Handling Outcome: Ongoing (Interventions Implemented as Appropriate) 08/12/17 0412 08/30/17 0400 09/01/17 0848 Activity and Safety Assistive Device -- None -- Daily Care Interventions Self-Care Promotion -- -- independence encouraged Musculoskeletal Interventions Muscle Strengthening activity/mobility promoted -- -- Barbour Fall Risk History of Falling -- -- 0 Secondary Diagnosis -- -- 15 Ambulatory Aids -- -- 0 Intravenous Therapy/Heparin/Saline Lock -- -- 20 Gait/Transferring -- -- 0 Mental Status -- -- 0 Score -- -- 35 OTHER Barbour Fall Risk -- -- Med Restraint Interventions Safety Promotion/Fall Prevention -- -- nonskid shoes/slippers when out of bed;safety round/check completed Positioning Body Position -- -- independent Goal: Infection Control Outcome: Ongoing (Interventions Implemented as Appropriate) 09/01/17 0848 Safety Interventions Isolation Precautions standard precautions maintained Infection Prevention rest/sleep promoted;single patient room provided Coping Strategies Supportive Measures counseling provided;active listening utilized;positive reinforcement provided;verbalization of feelings encouraged Goal: Discharge Needs Assessment Outcome: Ongoing (Interventions Implemented as Appropriate) 08/26/17 1854 08/30/17 0400 Discharge Needs Assessment Concerns To Be Addressed -- no discharge needs identified Readmission Within The Last 30 Days no previous admission in last 30 days -- Provider Choice List(s) Given no -- Equipment Needed After Discharge -- none Discharge Disposition -- still a patient Current Health Anticipated Changes Related to Illness -- none Activity/Self Care Review of Systems Equipment Currently Used at Home -- none Living Environment Transportation Available -- family or friend will provide Problem: High-Risk/Critically Ill Patient (Obstetrics) Goal: Signs and Symptoms of Listed Potential Problems Will be Absent, Minimized or Managed (High-Risk/Critically Ill Patient) Signs and symptoms of listed potential problems will be absent, minimized or managed by discharge/transition of care (reference High-Risk/Critically Ill Patient (Obstetrics) [facility]). Outcome: Ongoing (Interventions Implemented as Appropriate) 09/01/17 0848 High-Risk/Critically Ill OB Patient Problems Assessed (Critically Ill/High Risk ) bleeding;infection;IUFD (intrauterine );pain;premature rupture of membranes; labor;situational response Problems Present (Critically Ill/High Risk ) situational response * Plan of Care - Ariadna Marroquin, RN - 08/31/2017 6:41 PM EST Problem: Patient Care Overview Goal: Plan of Care Review Outcome: Ongoing (Interventions Implemented as Appropriate) 08/31/17 1833 Plan of Care Review Progress no change Coping/Psychosocial Plan Of Care Reviewed With patient OUTCOME EVALUATION NOTE: OUTCOME SUMMARY: Pt denies leaking, bleeding, and contractions. Reports good FM. Denies [place] and visual change. Daily NST completed. Informed pt of ultrasound scheduled for tomorrow at 0845, she is looking forward to this. PLAN MOVING FORWARD: No change to POC. Continue to monitor. Goal: Individualization & Mutuality Outcome: Ongoing (Interventions Implemented as Appropriate) 08/11/17 0310 08/12/17 0412 08/17/17 1830 Individualization Patient Specific Preferences -- -- Likes to sleep until noon Patient Specific Goals -- remain for at least 34 weeks -- Patient Specific Interventions AP care, VS as ordered, blood glucose monitoring as ordered, daily NST -- -- Mutuality/Individual Preferences What Anxieties, Fears or Concerns Do You Have About Your Health or Care? -- ultrasound results still with vasa previa, difficulty in coping with being away from kids -- What Questions Do You Have About Your Health or Care? -- denies at this time -- What Information Would Help Us Give You More Personalized Care? -- keep informed of any change in plan of care -- Goal: Fall Prevention-Safe Patient Handling Outcome: Ongoing (Interventions Implemented as Appropriate) 08/12/17 0412 08/30/17 0400 08/30/17 1233 Activity and Safety Assistive Device -- None -- Daily Care Interventions Self-Care Promotion -- -- independence encouraged;BADL personal routines maintained Musculoskeletal Interventions Muscle Strengthening activity/mobility promoted -- -- Barbour Fall Risk History of Falling -- -- -- Secondary Diagnosis -- -- -- Ambulatory Aids -- -- -- Intravenous Therapy/Heparin/Saline Lock -- -- -- Gait/Transferring -- -- -- Mental Status -- -- -- Score -- -- -- OTHER Barbour Fall Risk -- -- -- Restraint Interventions Safety Promotion/Fall Prevention -- -- -- Positioning Body Position -- -- -- 08/31/17 1401 Activity and Safety Assistive Device -- Daily Care Interventions Self-Care Promotion -- Musculoskeletal Interventions Muscle Strengthening -- Barbour Fall Risk History of Falling 0 Secondary Diagnosis 15 Ambulatory Aids 0 Intravenous Therapy/Heparin/Saline Lock 20 Gait/Transferring 0 Mental Status 0 Score 35 OTHER Barbour Fall Risk Med Restraint Interventions Safety Promotion/Fall Prevention nonskid shoes/slippers when out of bed;safety round/check completed Positioning Body Position independent Goal: Infection Control Outcome: Ongoing (Interventions Implemented as Appropriate) 08/31/17 1401 Safety Interventions Isolation Precautions standard precautions maintained Infection Prevention rest/sleep promoted;single patient room provided Coping Strategies Supportive Measures active listening utilized;relaxation techniques promoted;self-care encouraged;verbalization of feelings encouraged Goal: Discharge Needs Assessment Outcome: Ongoing (Interventions Implemented as Appropriate) 08/26/17 1854 08/30/17 0400 Discharge Needs Assessment Concerns To Be Addressed -- no discharge needs identified Readmission Within The Last 30 Days no previous admission in last 30 days -- Provider Choice List(s) Given no -- Equipment Needed After Discharge -- none Discharge Disposition -- still a patient Current Health Anticipated Changes Related to Illness -- none Activity/Self Care Review of Systems Equipment Currently Used at Home -- none Living Environment Transportation Available -- family or friend will provide Problem: High-Risk/Critically Ill Patient (Obstetrics) Goal: Signs and Symptoms of Listed Potential Problems Will be Absent, Minimized or Managed (High-Risk/Critically Ill Patient) Signs and symptoms of listed potential problems will be absent, minimized or managed by discharge/transition of care (reference High-Risk/Critically Ill Patient (Obstetrics) [facility]). Outcome: Ongoing (Interventions Implemented as Appropriate) 08/31/17 1401 High-Risk/Critically Ill OB Patient Problems Assessed (Critically Ill/High Risk ) bleeding;infection;IUFD (intrauterine );pain;premature rupture of membranes; labor;situational response Problems Present (Critically Ill/High Risk ) none * Consult Note - Luanne Phan, TRANSPORTATION BROKER - 08/31/2017 3:06 PM EST Psychiatry Behavioral Intervention Team (BIT) Referral: Referred to [facility] for supportive therapy by BP AGUILAR. Per chart, PPHx of PTSD. Record reviewed and discussed with BP FAY. Relevant Information: Attempted to meet with patient x2 today. Patient unavailable both attempts, asked this proposal lead writer to f/u at a later time. Assessment/Plan: [facility] will continue to follow for supportive therapy while hospitalized. [facility]IE[facility] Cat Phone: [phone] Pager: [phone] * Plan of Care - Kristin Morley RN - 08/30/2017 4:37 PM EST Problem: Patient Care Overview Goal: Plan of Care Review Outcome: Ongoing (Interventions Implemented as Appropriate) 08/30/170 08/30/17 1233 Plan of Care Review Progress progress toward functional goals as expected -- Coping/Psychosocial Plan Of Care Reviewed With -- patient OUTCOME EVALUATION NOTE: OUTCOME SUMMARY: Pt remains stable thus far in this shift, VSS, no C/O bleeding, LOF or contractions, she does not want an NST until later today, Neeta Winston MD made aware . Pt has no C/O diet or food choices. BG remain WDL PLAN MOVING FORWARD: Continue monitoring per supply manager [facility] INDIVIDUALIZED FALL PREVENTION INTERVENTIONS: Patient-specific fall risk factors per assessment: [current deficits]: NA Assistance [level of assistance required for transfers and ambulation]: independent Supervision [direct monitoring required during toileting and ADLs]: Pt able to reliably call for assistance Surveillance [continuous indirect monitoring]: Purposeful rounding Patient-specific fall prevention interventions for sensory deficits provided, if applicable: [X] N/A [facility] GOAL OUTCOME EVALUATION: Goal: Individualization & Mutuality Outcome: Ongoing (Interventions Implemented as Appropriate) 08/11/17 0310 08/12/172 08/17/17 1830 Individualization Patient Specific Preferences -- -- Likes to sleep until noon Patient Specific Goals -- remain for at least 34 weeks -- Patient Specific Interventions AP care, VS as ordered, blood glucose monitoring as ordered, daily NST -- -- Mutuality/Individual Preferences What Anxieties, Fears or Concerns Do You Have About Your Health or Care? -- ultrasound results still with vasa previa, difficulty in coping with being away from kids -- What Questions Do You Have About Your Health or Care? -- denies at this time -- What Information Would Help Us Give You More Personalized Care? -- keep informed of any change in plan of care -- Goal: Fall Prevention-Safe Patient Handling Outcome: Ongoing (Interventions Implemented as Appropriate) 08/12/172 08/30/17 0400 08/30/17 1233 Activity and Safety Assistive Device -- None -- Daily Care Interventions Self-Care Promotion -- -- independence encouraged;BADL personal routines maintained Musculoskeletal Interventions Muscle Strengthening activity/mobility promoted -- -- Barbour Fall Risk History of Falling -- -- 0 Secondary Diagnosis -- -- 0 Ambulatory Aids -- -- 0 Intravenous Therapy/Heparin/Saline Lock -- -- 20 Gait/Transferring -- -- 0 Mental Status -- -- 0 Score -- -- 20 OTHER Barbour Fall Risk -- -- Low Restraint Interventions Safety Promotion/Fall Prevention -- -- nonskid shoes/slippers when out of bed;safety round/check completed Positioning Body Position -- -- independent Goal: Infection Control Outcome: Ongoing (Interventions Implemented as Appropriate) 08/30/17 1233 Safety Interventions Isolation Precautions standard precautions maintained Infection Prevention rest/sleep promoted;single patient room provided Coping Strategies Supportive Measures active listening utilized;relaxation techniques promoted Goal: Discharge Needs Assessment Outcome: Ongoing (Interventions Implemented as Appropriate) 08/26/17185308/30/17 0400 Discharge Needs Assessment Concerns To Be Addressed -- no discharge needs identified Readmission Within The Last 30 Days no previous admission in last 30 days -- Provider Choice List(s) Given no -- Equipment Needed After Discharge -- none Discharge Disposition -- still a patient Current Health Anticipated Changes Related to Illness -- none Activity/Self Care Review of Systems Equipment Currently Used at Home -- none Living Environment Transportation Available -- family or friend will provide Goal: Interdisciplinary Rounds/Family Conf Outcome: Ongoing (Interventions Implemented as Appropriate) 08/30/17 0400 08/30/17 1631 Interdisciplinary Rounds/Family Conf Summary -- pt is satisfied at this time w/ diet choices Participants patient;nursing -- * Plan of Care - Henrik Galarza RN - 08/30/2017 4:08 AM EST Problem: Patient Care Overview Goal: Plan of Care Review Outcome: Ongoing (Interventions Implemented as Appropriate) 08/29/17 20408/30/17 0400 Plan of Care Review Progress -- progress toward functional goals as expected Coping/Psychosocial Plan Of Care Reviewed With patient -- OUTCOME EVALUATION NOTE: OUTCOME SUMMARY: Pam was stable this shift, VSS, afebrile. BG controlled with insulin per OCT. Assessment as documented. No untoward events this shift. Slept well, with atarax, this shift. PLAN MOVING FORWARD: Continue to monitor and provide supportive nursing care. INDIVIDUALIZED FALL PREVENTION INTERVENTIONS: Patient-specific fall risk factors per assessment: [current deficits]: Antepartum, vasa previa Assistance [level of assistance required for transfers and ambulation]: independent Supervision [direct monitoring required during toileting and ADLs]: independent Surveillance [continuous indirect monitoring]: RN performing regular safety rounding, call pike within reach and using appropriately Patient-specific fall prevention interventions for sensory deficits provided, if applicable: [X] Yes [facility] GOAL OUTCOME EVALUATION: Goal: Fall Prevention-Safe Patient Handling Outcome: Ongoing (Interventions Implemented as Appropriate) 08/12/1741108/29/17203908/30/17399 Activity and Safety Assistive Device -- -- None Daily Care Interventions Self-Care Promotion -- independence encouraged;BADL personal objects within reach -- Musculoskeletal Interventions Muscle Strengthening activity/mobility promoted -- -- Barbour Fall Risk History of Falling -- 0 -- Secondary Diagnosis -- 15 -- Ambulatory Aids -- 0 -- Intravenous Therapy/Heparin/Saline Lock -- 20 -- Gait/Transferring -- 0 -- Mental Status -- 0 -- Score -- 35 -- OTHER Barbour Fall Risk -- Med -- Restraint Interventions Safety Promotion/Fall Prevention -- nonskid shoes/slippers when out of bed;safety round/check completed -- Positioning Body Position -- independent -- Goal: Infection Control Outcome: Ongoing (Interventions Implemented as Appropriate) 08/29/172039 Safety Interventions Isolation Precautions standard precautions maintained Infection Prevention single patient room provided;rest/sleep promoted Coping Strategies Supportive Measures self-responsibility promoted;self-care encouraged;self- reflection promoted;verbalization of feelings encouraged;relaxation techniques promoted;decision-making supported;active listening utilized Goal: Discharge Needs Assessment Outcome: Ongoing (Interventions Implemented as Appropriate) 08/30/17399 Discharge Needs Assessment Concerns To Be Addressed no discharge needs identified Equipment Needed After Discharge none Discharge Disposition still a patient Current Health Anticipated Changes Related to Illness none Activity/Self Care Review of Systems Equipment Currently Used at Home none Living Environment Transportation Available family or friend will provide Goal: Interdisciplinary Rounds/Family Conf Outcome: Ongoing (Interventions Implemented as Appropriate) 08/30/17 0400 Interdisciplinary Rounds/Family Conf Participants patient;nursing Problem: High-Risk/Critically Ill Patient (Obstetrics) Goal: Signs and Symptoms of Listed Potential Problems Will be Absent, Minimized or Managed (High-Risk/Critically Ill Patient) Signs and symptoms of listed potential problems will be absent, minimized or managed by discharge/transition of care (reference High-Risk/Critically Ill Patient (Obstetrics) [facility]). Outcome: Ongoing (Interventions Implemented as Appropriate) 08/29/17 2040 High-Risk/Critically Ill OB Patient Problems Present (Critically Ill/High Risk ) situational response * Plan of Care - Kristin Morley RN - 08/29/2017 5:02 PM EST Problem: Patient Care Overview Goal: Plan of Care Review Outcome: Ongoing (Interventions Implemented as Appropriate) 08/28/17 1749 08/29/17 1400 Plan of Care Review Progress progress toward functional goals as expected -- Coping/Psychosocial Plan Of Care Reviewed With -- patient OUTCOME EVALUATION NOTE: OUTCOME SUMMARY: Pt remains stable thus far in this shift. VSS. Fetus active per pt report, no vag. 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 C[facility] INDIVIDUALIZED FALL PREVENTION INTERVENTIONS: Patient-specific fall risk factors per assessment: [current deficits]: NA Assistance [level of assistance required for transfers and ambulation]: independent Supervision [direct monitoring required during toileting and ADLs]: Pt able to reliably call for assistance Surveillance [continuous indirect monitoring]: Purposeful rounding Patient-specific fall prevention interventions for sensory deficits provided, if applicable: [X] N/A [facility] GOAL OUTCOME EVALUATION: Goal: Individualization & Mutuality Outcome: Ongoing (Interventions Implemented as Appropriate) 08/11/17 0310 08/12/17 0412 08/17/17 1830 Individualization Patient Specific Preferences -- -- Likes to sleep until noon Patient Specific Goals -- remain for at least 34 weeks -- Patient Specific Interventions AP care, VS as ordered, blood glucose monitoring as ordered, daily NST -- -- Mutuality/Individual Preferences What Anxieties, Fears or Concerns Do You Have About Your Health or Care? -- ultrasound results still with vasa previa, difficulty in coping with being away from kids -- What Questions Do You Have About Your Health or Care? -- denies at this time -- What Information Would Help Us Give You More Personalized Care? -- keep informed of any change in plan of care -- Goal: Fall Prevention-Safe Patient Handling Outcome: Ongoing (Interventions Implemented as Appropriate) 08/12/172 08/27/17 1257 08/29/17 1400 Activity and Safety Assistive Device None -- -- Daily Care Interventions Self-Care Promotion -- independence encouraged;BADL personal objects within reach -- Musculoskeletal Interventions Muscle Strengthening activity/mobility promoted -- -- Barbour Fall Risk History of Falling -- -- 0 Secondary Diagnosis -- -- 0 Ambulatory Aids -- -- 0 Intravenous Therapy/Heparin/Saline Lock -- -- 20 Gait/Transferring -- -- 0 Mental Status -- -- 0 Score -- -- 20 OTHER Barbour Fall Risk -- -- Low Restraint Interventions Safety Promotion/Fall Prevention -- -- nonskid shoes/slippers when out of bed;safety round/check completed Positioning Body Position -- -- independent Goal: Infection Control Outcome: Ongoing (Interventions Implemented as Appropriate) 08/29/17 1400 Safety Interventions Isolation Precautions standard precautions maintained Infection Prevention rest/sleep promoted;single patient room provided Coping Strategies Supportive Measures verbalization of feelings encouraged;positive reinforcement provided;relaxationtechniques promoted Goal: Discharge Needs Assessment Outcome: Ongoing (Interventions Implemented as Appropriate) 08/12/1741108/26/17 1854 Discharge Needs Assessment Concerns To Be Addressed -- no discharge needs identified Readmission Within The Last 30 Days -- no previous admission in last 30 days Provider Choice List(s) Given -- no Equipment Needed After Discharge -- none Discharge Disposition -- still a patient Current Health Anticipated Changes Related to Illness -- none Activity/Self Care Review of Systems Equipment Currently Used at Home -- none Living Environment Transportation Available family or friend will provide -- Goal: Interdisciplinary Rounds/Family Conf Outcome: Ongoing (Interventions Implemented as Appropriate) 08/24/17 0957 Interdisciplinary Rounds/Family Conf Summary no concerns; pt requesting adjustments to diet order Participants nursing;patient;physician (MD Vasquez, [facility]) * Plan of Care - Margareth Enamorado RN - 08/29/2017 7:05 AM EST Problem: Patient Care Overview Goal: Plan of Care Review Outcome: Ongoing (Interventions Implemented as Appropriate) OUTCOME EVALUATION NOTE: OUTCOME SUMMARY: Pt stable, no major events overnight. PLAN MOVING FORWARD: Continue to monitor. * Plan of Care - Shannen Ibrahim RN - 08/28/2017 5:52 PM EST Problem: Patient Care Overview Goal: Plan of Care Review Outcome: Ongoing (Interventions Implemented as Appropriate) 08/28/17 1749 Plan of Care Review Progress progress toward functional goals as expected Coping/Psychosocial Plan Of Care Reviewed With patient .. OUTCOME EVALUATION NOTE: OUTCOME SUMMARY: Pt denies pain, contractions, and vaginal bleeding or leaking. Calm and cooperative with care this shift. PLAN MOVING FORWARD: Monitor for s/s labor. VS. Daily NST. INDIVIDUALIZED FALL PREVENTION INTERVENTIONS: Patient-specific fall risk factors per assessment: None. Assistance : Independent. Supervision : Independent. Surveillance : Purposeful rounding. Patient-specific fall prevention interventions for sensory deficits provided, if applicable: [facility] GOAL OUTCOME EVALUATION: * Plan of Care - Ximena Yan RN - 08/27/2017 5:50 PM EST Problem: Patient Care Overview Goal: Plan of Care Review Outcome: Ongoing (Interventions Implemented as Appropriate) 08/26/17 1854 08/27/17 1257 Plan of Care Review Progress progress toward functional goals as expected -- Coping/Psychosocial Plan Of Care Reviewed With -- patient OUTCOME EVALUATION NOTE: OUTCOME SUMMARY: VSS. NST performed with category II tracing r/t periodic variables. Pt reporting no bleeding, LOF or ctx. BS performed with no meal coverage needed. PLAN MOVING FORWARD: Monitor well being; Provide support and education as needed INDIVIDUALIZED FALL PREVENTION INTERVENTIONS: Patient-specific fall risk factors per assessment: [current deficits]: none Assistance [level of assistance required for transfers and ambulation]: indep Supervision [direct monitoring required during toileting and ADLs]: Call light in reach; Pt aware of reasons to call for assistance Surveillance [continuous indirect monitoring]: Purposeful rounding, VS Patient-specific fall prevention interventions for sensory deficits provided, if applicable: [facility] GOAL OUTCOME EVALUATION: Goal: Individualization & Mutuality Outcome: Ongoing (Interventions Implemented as Appropriate) 08/11/17 0310 08/12/1741108/17/17 1830 Individualization Patient Specific Preferences -- -- Likes to sleep until noon Patient Specific Goals -- remain for at least 34 weeks -- Patient Specific Interventions AP care, VS as ordered, blood glucose monitoring as ordered, daily NST -- -- Mutuality/Individual Preferences What Anxieties, Fears or Concerns Do You Have About Your Health or Care? -- ultrasound results still with vasa previa, difficulty in coping with being away from kids -- What Questions Do You Have About Your Health or Care? -- denies at this time -- What Information Would Help Us Give You More Personalized Care? -- keep informed of any change in plan of care -- Goal: Fall Prevention-Safe Patient Handling Outcome: Ongoing (Interventions Implemented as Appropriate) 08/12/1741108/27/17 1257 Activity and Safety Assistive Device None -- Daily Care Interventions Self-Care Promotion -- independence encouraged;BADL personal objects within reach Musculoskeletal Interventions Muscle Strengthening activity/mobility promoted -- Barbour Fall Risk History of Falling -- 0 Secondary Diagnosis -- 0 Ambulatory Aids -- 0 Intravenous Therapy/Heparin/Saline Lock -- 20 Gait/Transferring -- 0 Mental Status -- 0 Score -- 20 OTHER Barbour Fall Risk -- Low Restraint Interventions Safety Promotion/Fall Prevention -- safety round/check completed Positioning Body Position -- independent Goal: Infection Control Outcome: Ongoing (Interventions Implemented as Appropriate) 08/27/17 1257 Safety Interventions Isolation Precautions standard precautions maintained Infection Prevention environmental surveillance performed Coping Strategies Supportive Measures active listening utilized;verbalization of feelings encouraged Goal: Discharge Needs Assessment Outcome: Ongoing (Interventions Implemented as Appropriate) 08/12/1741108/26/17 1854 Discharge Needs Assessment Concerns To Be Addressed -- no discharge needs identified Readmission Within The Last 30 Days -- no previous admission in last 30 days Provider Choice List(s) Given -- no Equipment Needed After Discharge -- none Discharge Disposition -- still a patient Current Health Anticipated Changes Related to Illness -- none Activity/Self Care Review of Systems Equipment Currently Used at Home -- none Living Environment Transportation Available family or friend will provide -- Goal: Interdisciplinary Rounds/Family Conf Outcome: Ongoing (Interventions Implemented as Appropriate) 08/24/17 0957 Interdisciplinary Rounds/Family Conf Summary no concerns; pt requesting adjustments to diet order Participants nursing;patient;physician (MD Vasquez, RN Jonathan Tse) Problem: High-Risk/Critically Ill Patient (Obstetrics) Goal: Signs and Symptoms of Listed Potential Problems Will be Absent, Minimized or Managed (High-Risk/Critically Ill Patient) Signs and symptoms of listed potential problems will be absent, minimized or managed by discharge/transition of care (reference High-Risk/Critically Ill Patient (Obstetrics) CPG). Outcome: Ongoing (Interventions Implemented as Appropriate) 08/27/17 1257 High-Risk/Critically Ill OB Patient Problems Assessed (Critically Ill/High Risk ) other (see comments) (all) Problems Present (Critically Ill/High Risk ) situational response * Plan of Care - Cat Pena - 08/26/2017 7:01 PM EST Problem: Patient Care Overview Goal: Plan of Care Review Outcome: Ongoing (Interventions Implemented as Appropriate) 08/26/17 1944 Plan of Care Review Progress progress toward functional goals as expected Coping/Psychosocial Plan Of Care Reviewed With patient OUTCOME EVALUATION NOTE: OUTCOME SUMMARY: Pt has had no bleeding today. Pt is now taking a regular diet, and maintains wnl post prandial blood glucose eating a regular diet. Pt had concerns regarding blood pressure, states she felt it was higher than what is normal for herself; this was evaluated and urine dip performed, OB team was in to see pt. Discussed that patient has no signs of pre eclampsia, and reassurance given. Pt blood pressures have been 130-140/70's today and she states she does have intermittent headaches which she declines tylenol for. No protein in her urine. PLAN MOVING FORWARD: continue to monitor for bleeding. Continue to monitor blood pressure every 4 hours. Monitor blood glucose and diet. Provide encouragment. INDIVIDUALIZED FALL PREVENTION INTERVENTIONS: Independent Patient-specific fall risk factors per assessment: [current deficits]: independent Assistance [level of assistance required for transfers and ambulation]:independent Supervision [direct monitoring required during toileting and ADLs]: Purposeful rounding Surveillance [continuous indirect monitoring]: Safety checks. CPG GOAL OUTCOME EVALUATION: Goal: Infection Control Outcome: Ongoing (Interventions Implemented as Appropriate) 08/26/17 1854 Safety Interventions Infection Prevention single patient room provided Coping Strategies Supportive Measures active listening utilized;counseling provided;decision- making supported;goal setting facilitated;positive reinforcement provided;problem solving facilitated;relaxation techniques promoted;self-care encouraged;self-reflection promoted;self-responsibility promoted;verbalization offeelings encouraged Goal: Discharge Needs Assessment Outcome: Ongoing (Interventions Implemented as Appropriate) 08/26/171853 Discharge Needs Assessment Concerns To Be Addressed no discharge needs identified Readmission Within The Last 30 Days no previous admission in last 30 days Provider Choice List(s) Given no Equipment Needed After Discharge none Discharge Disposition still a patient Current Health Anticipated Changes Related to Illness none Activity/Self Care Review of Systems Equipment Currently Used at Home none Problem: High-Risk/Critically Ill Patient (Obstetrics) Goal: Signs and Symptoms of Listed Potential Problems Will be Absent, Minimized or Managed (High-Risk/Critically Ill Patient) Signs and symptoms of listed potential problems will be absent, minimized or managed by discharge/transition of care (reference High-Risk/Critically Ill Patient (Obstetrics) CPG). Outcome: Ongoing (Interventions Implemented as Appropriate) 08/26/171853 High-Risk/Critically Ill OB Patient Problems Assessed (Critically Ill/High Risk ) none Problems Present (Critically Ill/High Risk ) situational response * Plan of Care - Emely Nagy RN - 08/26/2017 5:35 AM EST Problem: Patient Care Overview Goal: Plan of Care Review Outcome: Ongoing (Interventions Implemented as Appropriate) 08/24/17 1627 08/25/17 2310 Plan of Care Review Progress no change -- Coping/Psychosocial Plan Of Care Reviewed With -- patient OUTCOME EVALUATION NOTE: OUTCOME SUMMARY: Pt denies contractions, loss of fluid, bleeding. Pt endorses movement. PLAN MOVING FORWARD: Continue to educate and support INDIVIDUALIZED FALL PREVENTION INTERVENTIONS: Patient-specific fall risk factors per assessment: [current deficits]: No deficit Assistance [level of assistance required for transfers and ambulation]: independent Supervision [direct monitoring required during toileting and ADLs]: Pt able to reliably call for assistance Surveillance [continuous indirect monitoring]: Purposeful rounding Goal: Individualization & Mutuality Outcome: Ongoing (Interventions Implemented as Appropriate) 08/11/1730908/12/1741108/17/17 1830 Individualization Patient Specific Preferences -- -- Likes to sleep until noon Patient Specific Goals -- remain for at least 34 weeks -- Patient Specific Interventions AP care, VS as ordered, blood glucose monitoring as ordered, daily NST -- -- Mutuality/Individual Preferences What Anxieties, Fears or Concerns Do You Have About Your Health or Care? -- ultrasound results still with vasa previa, difficulty in coping with being away from kids -- What Questions Do You Have About Your Health or Care? -- denies at this time -- What Information Would Help Us Give You More Personalized Care? -- keep informed of any change in plan of care -- Goal: Fall Prevention-Safe Patient Handling Outcome: Ongoing (Interventions Implemented as Appropriate) 08/12/1741108/25/17 2310 Activity and Safety Assistive Device None -- Daily Care Interventions Self-Care Promotion -- independence encouraged Musculoskeletal Interventions Muscle Strengthening activity/mobility promoted -- Barbour Fall Risk History of Falling -- 0 Secondary Diagnosis -- 15 Ambulatory Aids -- 0 Intravenous Therapy/Heparin/Saline Lock -- 20 Gait/Transferring -- 0 Mental Status -- 0 Score -- 35 OTHER Barbour Fall Risk -- Med Restraint Interventions Safety Promotion/Fall Prevention -- safety round/check completed Positioning Body Position -- independent Goal: Infection Control Outcome: Ongoing (Interventions Implemented as Appropriate) 08/25/17 2310 Safety Interventions Isolation Precautions standard precautions maintained Infection Prevention environmental surveillance performed;equipment surfaces disinfected;personal protective equipment utilized;rest/sleep promoted;single patient room provided Coping Strategies Supportive Measures active listening utilized;counseling provided;decision- making supported;goal setting facilitated;problem solving facilitated;positive reinforcement provided;relaxation techniques promoted;self-care encouraged;self- reflection promoted;self-responsibility promoted;verbalization offeelings encouraged Goal: Discharge Needs Assessment Outcome: Ongoing (Interventions Implemented as Appropriate) 08/03/1759 08/12/17411 08/01/18 1627 Discharge Needs Assessment Concerns To Be Addressed -- denies needs/concerns at this time -- Readmission Within The Last 30 Days -- no previous admission in last 30 days -- Provider Choice List(s) Given no -- -- Equipment Needed After Discharge -- none -- Discharge Disposition -- -- still a patient Current Health Anticipated Changes Related to Illness -- inability to work -- Activity/Self Care Review of Systems Equipment Currently Used at Home -- none -- Living Environment Transportation Available -- family or friend will provide -- Goal: Interdisciplinary Rounds/Family Conf Outcome: Ongoing (Interventions Implemented as Appropriate) 08/24/17 0957 Interdisciplinary Rounds/Family Conf Summary no concerns; pt requesting adjustments to diet order Participants nursing;patient;physician (MD Vasquez, NYA Tse) Problem: High-Risk/Critically Ill Patient (Obstetrics) Goal: Signs and Symptoms of Listed Potential Problems Will be Absent, Minimized or Managed (High-Risk/Critically Ill Patient) Signs and symptoms of listed potential problems will be absent, minimized or managed by discharge/transition of care (reference High-Risk/Critically Ill Patient (Obstetrics) CPG). Outcome: Ongoing (Interventions Implemented as Appropriate) 08/25/17 2310 High-Risk/Critically Ill OB Patient Problems Assessed (Critically Ill/High Risk ) (all) Problems Present (Critically Ill/High Risk ) none * Plan of Care - Ximena Yan RN - 08/25/2017 4:07 PM EST Problem: Patient Care Overview Goal: Plan of Care Review Outcome: Ongoing (Interventions Implemented as Appropriate) 08/24/17 1627 08/25/17 1243 Plan of Care Review Progress no change -- Coping/Psychosocial Plan Of Care Reviewed With -- patient OUTCOME EVALUATION NOTE: OUTCOME SUMMARY: VSS. BS WDL. NST category I. Pt reporting no ctx, LOF or bleeding. Endorsing positive FM. Pt is good spirits. PLAN MOVING FORWARD: Monitor well being. C/S 09/11/17 INDIVIDUALIZED FALL PREVENTION INTERVENTIONS: Patient-specific fall risk factors per assessment: [current deficits]: none Assistance [level of assistance required for transfers and ambulation]: indep Supervision [direct monitoring required during toileting and ADLs]: up ad catina; Call light in reach Surveillance [continuous indirect monitoring]: Purposeful rounding, VS Patient-specific fall prevention interventions for sensory deficits provided, if applicable: CPG GOAL OUTCOME EVALUATION: Goal: Individualization & Mutuality Outcome: Ongoing (Interventions Implemented as Appropriate) 08/11/17 0310 08/12/1741108/17/17 1830 Individualization Patient Specific Preferences -- -- Likes to sleep until noon Patient Specific Goals -- remain for at least 34 weeks -- Patient Specific Interventions AP care, VS as ordered, blood glucose monitoring as ordered, daily NST -- -- Mutuality/Individual Preferences What Anxieties, Fears or Concerns Do You Have About Your Health or Care? -- ultrasound results still with vasa previa, difficulty in coping with being away from kids -- What Questions Do You Have About Your Health or Care? -- denies at this time -- What Information Would Help Us Give You More Personalized Care? -- keep informed of any change in plan of care -- Goal: Fall Prevention-Safe Patient Handling Outcome: Ongoing (Interventions Implemented as Appropriate) 08/12/1741108/25/17 1243 Activity and Safety Assistive Device None -- Daily Care Interventions Self-Care Promotion -- independence encouraged;BADL personal objects within reach Musculoskeletal Interventions Muscle Strengthening activity/mobility promoted -- Barbour Fall Risk History of Falling -- 0 Secondary Diagnosis -- 15 Ambulatory Aids -- 0 Intravenous Therapy/Heparin/Saline Lock -- 20 Gait/Transferring -- 0 Mental Status -- 0 Score -- 35 OTHER Barbour Fall Risk -- Med Restraint Interventions Safety Promotion/Fall Prevention -- safety round/check completed Positioning Body Position -- independent Goal: Infection Control Outcome: Ongoing (Interventions Implemented as Appropriate) 08/25/17 1243 Safety Interventions Isolation Precautions standard precautions maintained Infection Prevention environmental surveillance performed Coping Strategies Supportive Measures active listening utilized;positive reinforcement provided;verbalization of feelings encouraged Goal: Discharge Needs Assessment Outcome: Ongoing (Interventions Implemented as Appropriate) 08/03/17 0559 08/12/1741108/24/17 1627 Discharge Needs Assessment Concerns To Be Addressed -- denies needs/concerns at this time -- Readmission Within The Last 30 Days -- no previous admission in last 30 days -- Provider Choice List(s) Given no -- -- Equipment Needed After Discharge -- none -- Discharge Disposition -- -- still a patient Current Health Anticipated Changes Related to Illness -- inability to work -- Activity/Self Care Review of Systems Equipment Currently Used at Home -- none -- Living Environment Transportation Available -- family or friend will provide -- Goal: Interdisciplinary Rounds/Family Conf Outcome: Ongoing (Interventions Implemented as Appropriate) 08/24/17 0957 Interdisciplinary Rounds/Family Conf Summary no concerns; pt requesting adjustments to diet order Participants nursing;patient;physician (MD Vasquez, RN Jonathan Tse) Problem: High-Risk/Critically Ill Patient (Obstetrics) Goal: Signs and Symptoms of Listed Potential Problems Will be Absent, Minimized or Managed (High-Risk/Critically Ill Patient) Signs and symptoms of listed potential problems will be absent, minimized or managed by discharge/transition of care (reference High-Risk/Critically Ill Patient (Obstetrics) CPG). Outcome: Ongoing (Interventions Implemented as Appropriate) 08/25/17 1243 High-Risk/Critically Ill OB Patient Problems Assessed (Critically Ill/High Risk ) other (see comments) (all) Problems Present (Critically Ill/High Risk ) none * Plan of Care - Asif Grove RN - 08/24/2017 4:36 PM EST Problem: Patient Care Overview Goal: Plan of Care Review Outcome: Ongoing (Interventions Implemented as Appropriate) 08/24/17 1252 08/24/17 1627 Plan of Care Review Progress -- no change Coping/Psychosocial Plan Of Care Reviewed With patient -- OUTCOME EVALUATION NOTE: OUTCOME SUMMARY: Pt denies [place], visual change, epigastric pain, edema, LOF, bleeding, or ctx. +FM. Daily NST completed. Diet choices reviewed during morning rounds. OK for gestational diet with pt watching carb count. Will continue to monitor BG and give insulin per OCT. Pt educated r/t food choices and paperwork given. Gestational Diabetes handout from [facility] [place]. PLAN MOVING FORWARD: No change. Continue to monitor for bleeding, s/s of labor. Monitor BG INDIVIDUALIZED FALL PREVENTION INTERVENTIONS: Patient-specific fall risk factors per assessment: [current deficits]: NA Assistance [level of assistance required for transfers and ambulation]: Independent. Call pike in reach and pt using appropriately Supervision [direct monitoring required during toileting and ADLs]: NA Surveillance [continuous indirect monitoring]: Purposeful rounding, VS, daily NST Patient-specific fall prevention interventions for sensory deficits provided, if applicable: NA CPG GOAL OUTCOME EVALUATION: No change Goal: Individualization & Mutuality Outcome: Ongoing (Interventions Implemented as Appropriate) 08/11/17 03108/12/1741108/17/17 1830 Individualization Patient Specific Preferences -- -- Likes to sleep until noon Patient Specific Goals -- remain for at least 34 weeks -- Patient Specific Interventions AP care, VS as ordered, blood glucose monitoring as ordered, daily NST -- -- Mutuality/Individual Preferences What Anxieties, Fears or Concerns Do You Have About Your Health or Care? -- ultrasound results still with vasa previa, difficulty in coping with being away from kids -- What Questions Do You Have About Your Health or Care? -- denies at this time -- What Information Would Help Us Give You More Personalized Care? -- keep informed of any change in plan of care -- Goal: Fall Prevention-Safe Patient Handling Outcome: Ongoing (Interventions Implemented as Appropriate) 08/12/1741108/24/17 1252 Activity and Safety Assistive Device None -- Daily Care Interventions Self-Care Promotion -- independence encouraged;BADL personal objects within reach;BADL personal routines maintained Musculoskeletal Interventions Muscle Strengthening activity/mobility promoted -- Barbour Fall Risk History of Falling -- 0 Secondary Diagnosis -- 15 Ambulatory Aids -- 0 Intravenous Therapy/Heparin/Saline Lock -- 20 Gait/Transferring -- 0 Mental Status -- 0 Score -- 35 OTHER Barbour Fall Risk -- Med Restraint Interventions Safety Promotion/Fall Prevention -- fall prevention program maintained;nonskid shoes/slippers when out of bed;safety round/check completed Positioning Body Position -- independent Goal: Infection Control Outcome: Ongoing (Interventions Implemented as Appropriate) 08/24/17 1252 Safety Interventions Isolation Precautions standard precautions maintained Infection Prevention environmental surveillance performed;personal protective equipment utilized;single patient room provided Coping Strategies Supportive Measures active listening utilized;positive reinforcement provided;relaxation techniquespromoted;self-care encouraged;self-reflection promoted;self-responsibility promoted;verbalization of feelings encouraged Goal: Discharge Needs Assessment Outcome: Ongoing (Interventions Implemented as Appropriate) 08/03/17 0559 08/12/17 0412 08/24/17 1627 Discharge Needs Assessment Concerns To Be Addressed -- denies needs/concerns at this time -- Readmission Within The Last 30 Days -- no previous admission in last 30 days -- Provider Choice List(s) Given no -- -- Equipment Needed After Discharge -- none -- Discharge Disposition -- -- still a patient Current Health Anticipated Changes Related to Illness -- inability to work -- Activity/Self Care Review of Systems Equipment Currently Used at Home -- none -- Living Environment Transportation Available -- family or friend will provide -- Problem: High-Risk/Critically Ill Patient (Obstetrics) Goal: Signs and Symptoms of Listed Potential Problems Will be Absent, Minimized or Managed (High-Risk/Critically Ill Patient) Signs and symptoms of listed potential problems will be absent, minimized or managed by discharge/transition of care (reference High-Risk/Critically Ill Patient (Obstetrics) CPG). Outcome: Ongoing (Interventions Implemented as Appropriate) 08/24/17 1252 High-Risk/Critically Ill OB Patient Problems Assessed (Critically Ill/High Risk ) other (see comments) (all) Problems Present (Critically Ill/High Risk ) none * Plan of Care - Emely Nagy RN - 08/24/2017 6:28 AM EST Problem: Patient Care Overview Goal: Plan of Care Review Outcome: Ongoing (Interventions Implemented as Appropriate) 08/22/17 1630 08/23/17 2345 Plan of Care Review Progress no change -- Coping/Psychosocial Plan Of Care Reviewed With -- patient OUTCOME EVALUATION NOTE: OUTCOME SUMMARY: Pt toured the ICN tonight and reported feeling considerably less anxious. Pt denies contractions, loss of fluid, bleeding. Pt endorses movement. PLAN MOVING FORWARD: Continue to educate and support INDIVIDUALIZED FALL PREVENTION INTERVENTIONS: Patient-specific fall risk factors per assessment: [current deficits]: No deficit Assistance [level of assistance required for transfers and ambulation]: independent Supervision [direct monitoring required during toileting and ADLs]: Pt able to reliably call for assistance Surveillance [continuous indirect monitoring]: Purposeful rounding Goal: Individualization & Mutuality Outcome: Ongoing (Interventions Implemented as Appropriate) 08/11/17 03108/12/1741108/17/17 1830 Individualization Patient Specific Preferences -- -- Likes to sleep until noon Patient Specific Goals -- remain for at least 34 weeks -- Patient Specific Interventions AP care, VS as ordered, blood glucose monitoring as ordered, daily NST -- -- Mutuality/Individual Preferences What Anxieties, Fears or Concerns Do You Have About Your Health or Care? -- ultrasound results still with vasa previa, difficulty in coping with being away from kids -- What Questions Do You Have About Your Health or Care? -- denies at this time -- What Information Would Help Us Give You More Personalized Care? -- keep informed of any change in plan of care -- Goal: Fall Prevention-Safe Patient Handling Outcome: Ongoing (Interventions Implemented as Appropriate) 08/12/1741108/23/17 2345 Activity and Safety Assistive Device None -- Daily Care Interventions Self-Care Promotion -- independence encouraged Musculoskeletal Interventions Muscle Strengthening activity/mobility promoted -- Barbour Fall Risk History of Falling -- 0 Secondary Diagnosis -- 15 Ambulatory Aids -- 0 Intravenous Therapy/Heparin/Saline Lock -- 20 Gait/Transferring -- 0 Mental Status -- 0 Score -- 35 OTHER Barbour Fall Risk -- Med Restraint Interventions Safety Promotion/Fall Prevention -- safety round/check completed Positioning Body Position -- independent Goal: Infection Control Outcome: Ongoing (Interventions Implemented as Appropriate) 08/23/17 2345 Safety Interventions Isolation Precautions standard precautions maintained Infection Prevention single patient room provided;personal protective equipment utilized;rest/sleeppromoted;equipment surfaces disinfected;environmental surveillance performed Coping Strategies Supportive Measures active listening utilized;counseling provided;decision- making supported;goal setting facilitated;positive reinforcement provided;problem solving facilitated;relaxation techniques promoted;self-care encouraged;self-reflection promoted;self-responsibility promoted;verbalization offeelings encouraged Goal: Discharge Needs Assessment Outcome: Ongoing (Interventions Implemented as Appropriate) 08/03/17 0559 08/12/1741108/22/17 1630 Discharge Needs Assessment Concerns To Be Addressed -- denies needs/concerns at this time -- Readmission Within The Last 30 Days -- no previous admission in last 30 days -- Provider Choice List(s) Given no -- -- Equipment Needed After Discharge -- none -- Discharge Disposition -- -- still a patient Current Health Anticipated Changes Related to Illness -- inability to work -- Activity/Self Care Review of Systems Equipment Currently Used at Home -- none -- Living Environment Transportation Available -- family or friend will provide -- Goal: Interdisciplinary Rounds/Family Conf Outcome: Ongoing (Interventions Implemented as Appropriate) 08/10/17 0917 08/16/17 1331 Interdisciplinary Rounds/Family Conf Summary Team rounds -- Participants -- nursing;physician;patient Problem: High-Risk/Critically Ill Patient (Obstetrics) Goal: Signs and Symptoms of Listed Potential Problems Will be Absent, Minimized or Managed (High-Risk/Critically Ill Patient) Signs and symptoms of listed potential problems will be absent, minimized or managed by discharge/transition of care (reference High-Risk/Critically Ill Patient (Obstetrics) CPG). Outcome: Ongoing (Interventions Implemented as Appropriate) 08/23/17 2345 High-Risk/Critically Ill OB Patient Problems Assessed (Critically Ill/High Risk ) bleeding Problems Present (Critically Ill/High Risk ) none * Plan of Care - Allie Carrillo RN - 08/23/2017 3:38 PM EST Problem: Patient Care Overview Goal: Plan of Care Review Outcome: Ongoing (Interventions Implemented as Appropriate) 08/22/17 1630 08/23/17 1146 Plan of Care Review Progress no change -- Coping/Psychosocial Plan Of Care Reviewed With -- patient OUTCOME EVALUATION NOTE: OUTCOME SUMMARY: Patient reports + FM. Patient denied vaginal bleeding and contractions. Reactive NST obtained. Blood glucose checks completed per order (see results review). Patient visiting with her children this shift. Will continue to closely monitor. PLAN MOVING FORWARD: Continue AP care, daily NST, and blood glucose checks per order. INDIVIDUALIZED FALL PREVENTION INTERVENTIONS: Patient-specific fall risk factors per assessment: [current deficits]: none Assistance [level of assistance required for transfers and ambulation]: none Supervision [direct monitoring required during toileting and ADLs]: None, pt independent. Surveillance [continuous indirect monitoring]: Purposeful rounding. CPG GOAL OUTCOME EVALUATION: Goal: Individualization & Mutuality Outcome: Ongoing (Interventions Implemented as Appropriate) 12/30908/12/1741108/17/17 1830 Individualization Patient Specific Preferences -- -- Likes to sleep until noon Patient Specific Goals -- remain for at least 34 weeks -- Patient Specific Interventions AP care, VS as ordered, blood glucose monitoring as ordered, daily NST -- -- Mutuality/Individual Preferences What Anxieties, Fears or Concerns Do You Have About Your Health or Care? -- ultrasound results still with vasa previa, difficulty in coping with being away from kids -- What Questions Do You Have About Your Health or Care? -- denies at this time -- What Information Would Help Us Give You More Personalized Care? -- keep informed of any change in plan of care -- Goal: Fall Prevention-Safe Patient Handling Outcome: Ongoing (Interventions Implemented as Appropriate) 08/12/1741108/23/17 1146 Activity and Safety Assistive Device None -- Daily Care Interventions Self-Care Promotion -- independence encouraged Musculoskeletal Interventions Muscle Strengthening activity/mobility promoted -- Barbour Fall Risk History of Falling -- 0 Secondary Diagnosis -- 15 Ambulatory Aids -- 0 Intravenous Therapy/Heparin/Saline Lock -- 20 Gait/Transferring -- 0 Mental Status -- 0 Score -- 35 OTHER Barbour Fall Risk -- Med Restraint Interventions Safety Promotion/Fall Prevention -- nonskid shoes/slippers when out of bed;safety round/check completed Positioning Body Position -- independent Goal: Infection Control Outcome: Ongoing (Interventions Implemented as Appropriate) 08/23/17 1146 Safety Interventions Isolation Precautions standard precautions maintained Infection Prevention rest/sleep promoted;single patient room provided Coping Strategies Supportive Measures verbalization of feelings encouraged;self-reflection promoted;self-care encouraged;problem solving facilitated;active listening utilized;decision-making supported Goal: Discharge Needs Assessment Outcome: Ongoing (Interventions Implemented as Appropriate) 08/03/17 0559 08/12/1741108/22/17 1630 Discharge Needs Assessment Concerns To Be Addressed -- denies needs/concerns at this time -- Readmission Within The Last 30 Days -- no previous admission in last 30 days -- Provider Choice List(s) Given no -- -- Equipment Needed After Discharge -- none -- Discharge Disposition -- -- still a patient Current Health Anticipated Changes Related to Illness -- inability to work -- Activity/Self Care Review of Systems Equipment Currently Used at Home -- none -- Living Environment Transportation Available -- family or friend will provide -- Goal: Interdisciplinary Rounds/Family Conf Outcome: Ongoing (Interventions Implemented as Appropriate) 08/10/17 0917 08/16/17 1331 Interdisciplinary Rounds/Family Conf Summary Team rounds -- Participants -- nursing;physician;patient Problem: High-Risk/Critically Ill Patient (Obstetrics) Goal: Signs and Symptoms of Listed Potential Problems Will be Absent, Minimized or Managed (High-Risk/Critically Ill Patient) Signs and symptoms of listed potential problems will be absent, minimized or managed by discharge/transition of care (reference High-Risk/Critically Ill Patient (Obstetrics) CPG). Outcome: Ongoing (Interventions Implemented as Appropriate) 08/22/172021 High-Risk/Critically Ill OB Patient Problems Assessed (Critically Ill/High Risk ) bleeding;infection;IUFD (intrauterine );pain;premature rupture of membranes; labor;situational response Problems Present (Critically Ill/High Risk ) none * Plan of Care - Ariadna Marroquin RN - 08/23/2017 6:18 AM EST Problem: Patient Care Overview Goal: Plan of Care Review Outcome: Ongoing (Interventions Implemented as Appropriate) 08/22/17 1630 08/22/172021 Plan of Care Review Progress no change -- Coping/Psychosocial Plan Of Care Reviewed With -- patient OUTCOME EVALUATION NOTE: OUTCOME SUMMARY: Pt had an enjoyable evening, her 2 kids were able to spend the night with her here. Took all scheduled medications. Did not require SS insulin coverage, VSS, reports good FM, denies regular contractions, leaking, and bleeding. Pt had more frequent [place] contractions than usual early on in the evening, felt to be due to increased activity level with her children present, pt able to settle in and go to sleep as usual. Educated her on signs of early labor and when to call. She verbalized understanding. PLAN MOVING FORWARD: Continue to monitor for signs of labor and bleeding r/t vasa previa. Goal: Fall Prevention-Safe Patient Handling Outcome: Ongoing (Interventions Implemented as Appropriate) 08/12/17 0412 12/30/17 2022 Activity and Safety Assistive Device None -- Daily Care Interventions Self-Care Promotion -- independence encouraged Musculoskeletal Interventions Muscle Strengthening activity/mobility promoted -- Barbour Fall Risk History of Falling -- 0 Secondary Diagnosis -- 15 Ambulatory Aids -- 0 Intravenous Therapy/Heparin/Saline Lock -- 20 Gait/Transferring -- 0 Mental Status -- 0 Score -- 35 OTHER Barbour Fall Risk -- Med Restraint Interventions Safety Promotion/Fall Prevention -- nonskid shoes/slippers when out of bed;safety round/check completed Positioning Body Position -- independent Goal: Infection Control Outcome: Unable to achieve outcome by discharge 08/22/172021 Safety Interventions Isolation Precautions standard precautions maintained Infection Prevention single patient room provided;rest/sleep promoted Coping Strategies Supportive Measures self-care encouraged Goal: Discharge Needs Assessment Outcome: Ongoing (Interventions Implemented as Appropriate) 08/03/17 0559 08/12/17 0412 08/22/17 1630 Discharge Needs Assessment Concerns To Be Addressed -- denies needs/concerns at this time -- Readmission Within The Last 30 Days -- no previous admission in last 30 days -- Provider Choice List(s) Given no -- -- Equipment Needed After Discharge -- none -- Discharge Disposition -- -- still a patient Current Health Anticipated Changes Related to Illness -- inability to work -- Activity/Self Care Review of Systems Equipment Currently Used at Home -- none -- Living Environment Transportation Available -- family or friend will provide -- Problem: High-Risk/Critically Ill Patient (Obstetrics) Goal: Signs and Symptoms of Listed Potential Problems Will be Absent, Minimized or Managed (High-Risk/Critically Ill Patient) Signs and symptoms of listed potential problems will be absent, minimized or managed by discharge/transition of care (reference High-Risk/Critically Ill Patient (Obstetrics) CPG). Outcome: Ongoing (Interventions Implemented as Appropriate) 08/22/172021 High-Risk/Critically Ill OB Patient Problems Assessed (Critically Ill/High Risk ) bleeding;infection;IUFD (intrauterine );pain;premature rupture of membranes; labor;situational response Problems Present (Critically Ill/High Risk ) none * Plan of Care - Asif Grove RN - 08/22/2017 4:33 PM EST Problem: Patient Care Overview Goal: Plan of Care Review Outcome: Ongoing (Interventions Implemented as Appropriate) 08/22/17123808/22/17 1630 Plan of Care Review Progress -- no change Coping/Psychosocial Plan Of Care Reviewed With patient -- OUTCOME EVALUATION NOTE: OUTCOME SUMMARY: Pt denies [place], visual change, epigastric pain, edema, LOF, bleeding, or ctx. +FM. Daily NST completed. Pt excited for children to visit today. PLAN MOVING FORWARD: No change in POC - see MD note for details. INDIVIDUALIZED FALL PREVENTION INTERVENTIONS: Patient-specific fall risk factors per assessment: [current deficits]: NA Assistance [level of assistance required for transfers and ambulation]: Independent. Call pike in reach and pt using appropriately Supervision [direct monitoring required during toileting and ADLs]: NA Surveillance [continuous indirect monitoring]: Purposeful rounding, VS, daily NST Patient-specific fall prevention interventions for sensory deficits provided, if applicable: NA CPG GOAL OUTCOME EVALUATION: No change Goal: Individualization & Mutuality Outcome: Ongoing (Interventions Implemented as Appropriate) 08/11/17 0310 08/12/1741108/17/17 1830 Individualization Patient Specific Preferences -- -- Likes to sleep until noon Patient Specific Goals -- remain for at least 34 weeks -- Patient Specific Interventions AP care, VS as ordered, blood glucose monitoring as ordered, daily NST -- -- Mutuality/Individual Preferences What Anxieties, Fears or Concerns Do You Have About Your Health or Care? -- ultrasound results still with vasa previa, difficulty in coping with being away from kids -- What Questions Do You Have About Your Health or Care? -- denies at this time -- What Information Would Help Us Give You More Personalized Care? -- keep informed of any change in plan of care -- Goal: Fall Prevention-Safe Patient Handling Outcome: Ongoing (Interventions Implemented as Appropriate) 08/12/1741108/22/17 1239 Activity and Safety Assistive Device None -- Daily Care Interventions Self-Care Promotion -- independence encouraged;BADL personal objects within reach;BADL personal routines maintained Musculoskeletal Interventions Muscle Strengthening activity/mobility promoted -- Barbour Fall Risk History of Falling -- 0 Secondary Diagnosis -- 15 Ambulatory Aids -- 0 Intravenous Therapy/Heparin/Saline Lock -- 20 Gait/Transferring -- 0 Mental Status -- 0 Score -- 35 OTHER Barbour Fall Risk -- Med Restraint Interventions Safety Promotion/Fall Prevention -- fall prevention program maintained;nonskid shoes/slippers when out of bed;safety round/check completed Positioning Body Position -- independent Goal: Infection Control Outcome: Ongoing (Interventions Implemented as Appropriate) 08/22/17 1239 Safety Interventions Isolation Precautions standard precautions maintained Infection Prevention environmental surveillance performed;personal protective equipment utilized;rest/sleep promoted;single patient room provided Coping Strategies Supportive Measures active listening utilized;relaxation techniques promoted;problem solving facilitated;positive reinforcement provided;self-care encouraged;self-reflection promoted;self-responsibility promoted;verbalization of feelings encouraged Goal: Discharge Needs Assessment Outcome: Ongoing (Interventions Implemented as Appropriate) 08/03/17 0559 08/12/17 0412 08/22/17 1630 Discharge Needs Assessment Concerns To Be Addressed -- denies needs/concerns at this time -- Readmission Within The Last 30 Days -- no previous admission in last 30 days -- Provider Choice List(s) Given no -- -- Equipment Needed After Discharge -- none -- Discharge Disposition -- -- still a patient Current Health Anticipated Changes Related to Illness -- inability to work -- Activity/Self Care Review of Systems Equipment Currently Used at Home -- none -- Living Environment Transportation Available -- family or friend will provide -- Problem: High-Risk/Critically Ill Patient (Obstetrics) Goal: Signs and Symptoms of Listed Potential Problems Will be Absent, Minimized or Managed (High-Risk/Critically Ill Patient) Signs and symptoms of listed potential problems will be absent, minimized or managed by discharge/transition of care (reference High-Risk/Critically Ill Patient (Obstetrics) CPG). Outcome: Ongoing (Interventions Implemented as Appropriate) 08/22/17 1239 High-Risk/Critically Ill OB Patient Problems Assessed (Critically Ill/High Risk ) other (see comments) (all) Problems Present (Critically Ill/High Risk ) none * Plan of Care - Asif Grove RN - 08/21/2017 4:38 PM EST Problem: Patient Care Overview Goal: Plan of Care Review Outcome: Ongoing (Interventions Implemented as Appropriate) 08/21/17 1317 08/21/17 1625 Plan of Care Review Progress -- no change Coping/Psychosocial Plan Of Care Reviewed With patient -- OUTCOME EVALUATION NOTE: OUTCOME SUMMARY: Pt denies [place], visual change, epigastric pain, edema, LOF, bleeding, or ctx. +FM. Daily NST completed. Pt reports to be feeling better (mood) today. Excited about family visiting over the weekend. Pt craving cheese cake and reports the diet office will not send up cheese cake. Reports a friend may bring her a cheese cake this weekend. Reviewed this with MD team and requested a one time exception to allow pt to have a piece of cheese cake (33g/carb). MD team ok'd this. Will continue to monitor and cover BG per orders/MAR. PLAN MOVING FORWARD: No change in POC. See MD note for details. INDIVIDUALIZED FALL PREVENTION INTERVENTIONS: Patient-specific fall risk factors per assessment: [current deficits]: NA Assistance [level of assistance required for transfers and ambulation]: Independent. Call pike in reach and pt using appropriately Supervision [direct monitoring required during toileting and ADLs]: NA Surveillance [continuous indirect monitoring]: Purposeful rounding, VS, daily NST Patient-specific fall prevention interventions for sensory deficits provided, if applicable: NA CPG GOAL OUTCOME EVALUATION: No change Goal: Individualization & Mutuality Outcome: Ongoing (Interventions Implemented as Appropriate) 08/11/17 03108/12/1741108/17/17 1830 Individualization Patient Specific Preferences -- -- Likes to sleep until noon Patient Specific Goals -- remain for at least 34 weeks -- Patient Specific Interventions AP care, VS as ordered, blood glucose monitoring as ordered, daily NST -- -- Mutuality/Individual Preferences What Anxieties, Fears or Concerns Do You Have About Your Health or Care? -- ultrasound results still with vasa previa, difficulty in coping with being away from kids -- What Questions Do You Have About Your Health or Care? -- denies at this time -- What Information Would Help Us Give You More Personalized Care? -- keep informed of any change in plan of care -- Goal: Fall Prevention-Safe Patient Handling Outcome: Ongoing (Interventions Implemented as Appropriate) 08/12/1741108/21/17 1317 Activity and Safety Assistive Device None -- Daily Care Interventions Self-Care Promotion -- independence encouraged;BADL personal objects within reach;BADL personal routines maintained Musculoskeletal Interventions Muscle Strengthening activity/mobility promoted -- Barbour Fall Risk History of Falling -- 0 Secondary Diagnosis -- 15 Ambulatory Aids -- 0 Intravenous Therapy/Heparin/Saline Lock -- 20 Gait/Transferring -- 0 Mental Status -- 0 Score -- 35 OTHER Barbour Fall Risk -- Med Restraint Interventions Safety Promotion/Fall Prevention -- safety round/check completed;nonskid shoes/slippers when out ofbed;fall prevention program maintained Positioning Body Position -- independent Goal: Infection Control Outcome: Ongoing (Interventions Implemented as Appropriate) 08/21/17 1317 Safety Interventions Isolation Precautions standard precautions maintained Infection Prevention environmental surveillance performed;personal protective equipment utilized;rest/sleep promoted;single patient room provided Coping Strategies Supportive Measures active listening utilized;positive reinforcement provided;relaxation techniquespromoted;self-care encouraged;self-reflection promoted;self-responsibility promoted;verbalization of feelings encouraged Goal: Discharge Needs Assessment Outcome: Ongoing (Interventions Implemented as Appropriate) 08/03/17 0559 08/12/17 0412 08/21/17 1625 Discharge Needs Assessment Concerns To Be Addressed -- denies needs/concerns at this time -- Readmission Within The Last 30 Days -- no previous admission in last 30 days -- Provider Choice List(s) Given no -- -- Equipment Needed After Discharge -- none -- Discharge Disposition -- -- still a patient Current Health Anticipated Changes Related to Illness -- inability to work -- Activity/Self Care Review of Systems Equipment Currently Used at Home -- none -- Living Environment Transportation Available -- family or friend will provide -- Problem: High-Risk/Critically Ill Patient (Obstetrics) Goal: Signs and Symptoms of Listed Potential Problems Will be Absent, Minimized or Managed (High-Risk/Critically Ill Patient) Signs and symptoms of listed potential problems will be absent, minimized or managed by discharge/transition of care (reference High-Risk/Critically Ill Patient (Obstetrics) CPG). Outcome: Ongoing (Interventions Implemented as Appropriate) 08/21/17 1317 High-Risk/Critically Ill OB Patient Problems Assessed (Critically Ill/High Risk ) other (see comments) (all) Problems Present (Critically Ill/High Risk ) situational response * Plan of Care - Pam Valenzuela RN - 08/21/2017 5:13 AM EST Problem: Patient Care Overview Goal: Plan of Care Review Outcome: Ongoing (Interventions Implemented as Appropriate) 08/16/17 1331 08/20/17 2100 Plan of Care Review Progress progress toward functional goals as expected -- Coping/Psychosocial Plan Of Care Reviewed With -- patient OUTCOME EVALUATION NOTE: OUTCOME SUMMARY: Pt VSS through shift, pt appropriate and in good spirits. Very talkative. Voiding w/out difficulty,denies leakage of vaginal fluid or bleeding at this time. Pt educated and understands plan of s/s symptoms r/t vasa previa. PLAN MOVING FORWARD: Continue to closely monitor. INDIVIDUALIZED FALL PREVENTION INTERVENTIONS: Patient-specific fall risk factors per assessment: [current deficits]: Not present at this time. Assistance [level of assistance required for transfers and ambulation]: Pt independent. Supervision [direct monitoring required during toileting and ADLs]: Not indicated at this time. Surveillance [continuous indirect monitoring]: Rounding/VS per protocol. Patient-specific fall prevention interventions for sensory deficits provided, if applicable: n/a CPG GOAL OUTCOME EVALUATION: * Plan of Care - Yeny Marquez RN - 08/18/2017 6:58 PM EST Problem: Patient Care Overview Goal: Plan of Care Review Outcome: Ongoing (Interventions Implemented as Appropriate) 08/16/17 1331 08/18/17 1600 Plan of Care Review Progress progress toward functional goals as expected -- Coping/Psychosocial Plan Of Care Reviewed With -- patient OUTCOME EVALUATION NOTE: OUTCOME SUMMARY: Pt refusing care most of the day. This nurse assumed care of pt at 1500 from [facility]. Pt was yelling on phone and very tearful and visually upset during our first encounter. She agreed to let me check her BG (which was 97) and VS, along with do an assessment and place her on the monitor for an NST. During this time pt admitted to not eating all day because she didn't feel like it. Pt educated on GDM and the importance of eating every few hours along with importance of letting us assess her and check baby on monitor. Pt was calm and cooperative during this time and denied bleeding, leaking or contractions. Shortly after NST pt reported and all of a sudden pressure in her pelvis and lower abdominal pain- pt placed back on monitor and MD nj notified and assessed pt. Pt vomited shortly after x1. Pelvic pressure has continued and pt verbalized she felt a feeling to push MDs again notified. No bleeding at all during this time or throughout the day- pt educated on important s/s to call out for and when to hit the emergency pike. Will continue to closely monitor. PLAN MOVING FORWARD: Monitor for bleeding, fasting and post parangeal BGs, VS q4 and daily NST INDIVIDUALIZED FALL PREVENTION INTERVENTIONS: Patient-specific fall risk factors per assessment: [current deficits]: Assistance [level of assistance required for transfers and ambulation]: independent Supervision [direct monitoring required during toileting and ADLs]: independent Surveillance [continuous indirect monitoring]: Purposeful rounding Patient-specific fall prevention interventions for sensory deficits provided, if applicable: [X] N/A CPG GOAL OUTCOME EVALUATION: Goal: Individualization & Mutuality Outcome: Ongoing (Interventions Implemented as Appropriate) 08/11/17 03108/12/1741108/17/17 1830 Individualization Patient Specific Preferences -- -- Likes to sleep until noon Patient Specific Goals -- remain for at least 34 weeks -- Patient Specific Interventions AP care, VS as ordered, blood glucose monitoring as ordered, daily NST -- -- Mutuality/Individual Preferences What Anxieties, Fears or Concerns Do You Have About Your Health or Care? -- ultrasound results still with vasa previa, difficulty in coping with being away from kids -- What Questions Do You Have About Your Health or Care? -- denies at this time -- What Information Would Help Us Give You More Personalized Care? -- keep informed of any change in plan of care -- Goal: Fall Prevention-Safe Patient Handling Outcome: Ongoing (Interventions Implemented as Appropriate) 08/12/17 0412 08/14/17 0508/18/17 1600 Activity and Safety Assistive Device None -- -- Daily Care Interventions Self-Care Promotion -- BADL personal objects within reach;independence encouraged -- Musculoskeletal Interventions Muscle Strengthening activity/mobility promoted -- -- Barbour Fall Risk History of Falling -- -- 0 Secondary Diagnosis -- -- 0 Ambulatory Aids -- -- 0 Intravenous Therapy/Heparin/Saline Lock -- -- 20 Gait/Transferring -- -- 0 Mental Status -- -- 0 Score -- -- 20 OTHER Barbour Fall Risk -- -- Low Restraint Interventions Safety Promotion/Fall Prevention -- -- nonskid shoes/slippers when out of bed;safety round/check completed Positioning Body Position -- -- independent Goal: Infection Control Outcome: Ongoing (Interventions Implemented as Appropriate) 08/18/17 1600 Safety Interventions Isolation Precautions standard precautions maintained Infection Prevention rest/sleep promoted;environmental surveillance performed Coping Strategies Supportive Measures active listening utilized;self-care encouraged;self- reflection promoted;self-responsibility promoted Goal: Discharge Needs Assessment Outcome: Ongoing (Interventions Implemented as Appropriate) 08/03/17 0559 08/12/17 0412 Discharge Needs Assessment Concerns To Be Addressed -- denies needs/concerns at this time Readmission Within The Last 30 Days -- no previous admission in last 30 days Provider Choice List(s) Given no -- Equipment Needed After Discharge -- none Discharge Disposition -- still a patient Current Health Anticipated Changes Related to Illness -- inability to work Activity/Self Care Review of Systems Equipment Currently Used at Home -- none Living Environment Transportation Available -- family or friend will provide Goal: Interdisciplinary Rounds/Family Conf Outcome: Ongoing (Interventions Implemented as Appropriate) 08/10/17 0917 08/16/17 1331 Interdisciplinary Rounds/Family Conf Summary Team rounds -- Participants -- nursing;physician;patient Problem: High-Risk/Critically Ill Patient (Obstetrics) Goal: Signs and Symptoms of Listed Potential Problems Will be Absent, Minimized or Managed (High-Risk/Critically Ill Patient) Signs and symptoms of listed potential problems will be absent, minimized or managed by discharge/transition of care (reference High-Risk/Critically Ill Patient (Obstetrics) CPG). Outcome: Ongoing (Interventions Implemented as Appropriate) 08/17/17 1216 High-Risk/Critically Ill OB Patient Problems Assessed (Critically Ill/High Risk ) other (see comments) (all) Problems Present (Critically Ill/High Risk ) none * Plan of Care - Yumiko Cochran RN - 08/17/2017 6:34 PM EST Problem: Patient Care Overview Goal: Plan of Care Review Outcome: Ongoing (Interventions Implemented as Appropriate) 08/16/17 1331 08/17/17 1216 Plan of Care Review Progress progress toward functional goals as expected -- Coping/Psychosocial Plan Of Care Reviewed With -- patient OUTCOME EVALUATION NOTE: OUTCOME SUMMARY: VSS. Assessment as documented. Pt endorses good movement. Denies vaginal bleeding, leaking of fluid, cramping, and contractions. She is struggling emotionally today, states she'wants to get out of here' and is 'not coping well'. Would like to be left alone as much as possible. This RN encouraged pt to verbalize feelings and discuss how nursing staff can help with coping. Patient states she feels this will improve after the holidays. PLAN MOVING FORWARD: Continue to monitor for maternal and well-being. This RN will consider consult to social work/medical office clerk for emotional support during extended stay. INDIVIDUALIZED FALL PREVENTION INTERVENTIONS: Patient-specific fall risk factors per assessment: [current deficits]: none Assistance [level of assistance required for transfers and ambulation]: independent Supervision [direct monitoring required during toileting and ADLs]: none Surveillance [continuous indirect monitoring]: Purposeful rounding Patient-specific fall prevention interventions for sensory deficits provided, if applicable: No. [facility] GOAL OUTCOME EVALUATION: Goal: Individualization & Mutuality Outcome: Ongoing (Interventions Implemented as Appropriate) 08/11/17 03108/12/1741108/17/17 1830 Individualization Patient Specific Preferences -- -- Likes to sleep until noon Patient Specific Goals -- remain for at least 34 weeks -- Patient Specific Interventions AP care, VS as ordered, blood glucose monitoring as ordered, daily NST -- -- Mutuality/Individual Preferences What Anxieties, Fears or Concerns Do You Have About Your Health or Care? -- ultrasound results still with vasa previa, difficulty in coping with being away from kids -- What Questions Do You Have About Your Health or Care? -- denies at this time -- What Information Would Help Us Give You More Personalized Care? -- keep informed of any change in plan of care -- Goal: Fall Prevention-Safe Patient Handling Outcome: Ongoing (Interventions Implemented as Appropriate) 08/12/172 08/14/17 0531 08/17/17 1216 Activity and Safety Assistive Device None -- -- Daily Care Interventions Self-Care Promotion -- BADL personal objects within reach;independence encouraged -- Musculoskeletal Interventions Muscle Strengthening activity/mobility promoted -- -- Barbour Fall Risk History of Falling -- -- 0 Secondary Diagnosis -- -- 0 Ambulatory Aids -- -- 0 Intravenous Therapy/Heparin/Saline Lock -- -- 20 Gait/Transferring -- -- 0 Mental Status -- -- 0 Score -- -- 20 OTHER Barbour Fall Risk -- -- Low Restraint Interventions Safety Promotion/Fall Prevention -- -- nonskid shoes/slippers when out of bed;safety round/check completed Positioning Body Position -- -- independent Goal: Infection Control Outcome: Ongoing (Interventions Implemented as Appropriate) 08/17/171215 Safety Interventions Isolation Precautions standard precautions maintained Infection Prevention rest/sleep promoted;single patient room provided Coping Strategies Supportive Measures active listening utilized;decision-making supported;goal setting facilitated;positive reinforcement provided;relaxation techniques promoted;self-care encouraged;verbalization of feelings encouraged Goal: Discharge Needs Assessment Outcome: Ongoing (Interventions Implemented as Appropriate) 08/03/17 0559 08/12/17 0412 Discharge Needs Assessment Concerns To Be Addressed -- denies needs/concerns at this time Readmission Within The Last 30 Days -- no previous admission in last 30 days Provider Choice List(s) Given no -- Equipment Needed After Discharge -- none Discharge Disposition -- still a patient Current Health Anticipated Changes Related to Illness -- inability to work Activity/Self Care Review of Systems Equipment Currently Used at Home -- none Living Environment Transportation Available -- family or friend will provide Goal: Interdisciplinary Rounds/Family Conf Outcome: Ongoing (Interventions Implemented as Appropriate) 08/10/17 0917 08/16/17 1331 Interdisciplinary Rounds/Family Conf Summary Team rounds -- Participants -- nursing;physician;patient Problem: High-Risk/Critically Ill Patient (Obstetrics) Goal: Signs and Symptoms of Listed Potential Problems Will be Absent, Minimized or Managed (High-Risk/Critically Ill Patient) Signs and symptoms of listed potential problems will be absent, minimized or managed by discharge/transition of care (reference High-Risk/Critically Ill Patient (Obstetrics) [facility]). Outcome: Ongoing (Interventions Implemented as Appropriate) 08/17/17 1216 High-Risk/Critically Ill OB Patient Problems Assessed (Critically Ill/High Risk ) other (see comments) (all) Problems Present (Critically Ill/High Risk ) none * Plan of Care - Shannen Ibrahim RN - 08/16/2017 1:35 PM EST Problem: Patient Care Overview Goal: Plan of Care Review Outcome: Ongoing (Interventions Implemented as Appropriate) 08/16/17 1331 Plan of Care Review Progress progress toward functional goals as expected Coping/Psychosocial Plan Of Care Reviewed With patient .. OUTCOME EVALUATION NOTE: OUTCOME SUMMARY: Pt denies pain, contractions, vaginal bleeding or leaking. States positive movement. PLAN MOVING FORWARD: Monitor for s/s labor. INDIVIDUALIZED FALL PREVENTION INTERVENTIONS: Patient-specific fall risk factors per assessment: None. Assistance : Independent. Supervision : Independent. Surveillance : Purposeful rounding. Patient-specific fall prevention interventions for sensory deficits provided, if applicable: [facility] GOAL OUTCOME EVALUATION: Goal: Fall Prevention-Safe Patient Handling Outcome: Ongoing (Interventions Implemented as Appropriate) 08/12/1741108/14/1752608/16/17 1109 Activity and Safety Assistive Device None -- -- Daily Care Interventions Self-Care Promotion -- BADL personal objects within reach;independence encouraged -- Musculoskeletal Interventions Muscle Strengthening activity/mobility promoted -- -- Barbour Fall Risk History of Falling -- -- 0 Secondary Diagnosis -- -- 0 Ambulatory Aids -- -- 0 Intravenous Therapy/Heparin/Saline Lock -- -- 20 Gait/Transferring -- -- 0 Mental Status -- -- 0 Score -- -- 20 OTHER Barbour Fall Risk -- -- Low Restraint Interventions Safety Promotion/Fall Prevention -- -- safety round/check completed Positioning Body Position -- -- independent Goal: Infection Control Outcome: Ongoing (Interventions Implemented as Appropriate) 08/16/17 1109 Safety Interventions Isolation Precautions standard precautions maintained Infection Prevention environmental surveillance performed Coping Strategies Supportive Measures active listening utilized Goal: Discharge Needs Assessment 08/03/1759 08/12/17411 Discharge Needs Assessment Concerns To Be Addressed -- denies needs/concerns at this time Readmission Within The Last 30 Days -- no previous admission in last 30 days Provider Choice List(s) Given no -- Equipment Needed After Discharge -- none Discharge Disposition -- still a patient Current Health Anticipated Changes Related to Illness -- inability to work Activity/Self Care Review of Systems Equipment Currently Used at Home -- none Living Environment Transportation Available -- family or friend will provide Goal: Interdisciplinary Rounds/Family Conf Outcome: Ongoing (Interventions Implemented as Appropriate) 08/16/17 1331 Interdisciplinary Rounds/Family Conf Participants nursing;physician;patient Problem: High-Risk/Critically Ill Patient (Obstetrics) Goal: Signs and Symptoms of Listed Potential Problems Will be Absent, Minimized or Managed (High-Risk/Critically Ill Patient) Signs and symptoms of listed potential problems will be absent, minimized or managed by discharge/transition of care (reference High-Risk/Critically Ill Patient (Obstetrics) [facility]). Outcome: Ongoing (Interventions Implemented as Appropriate) 08/16/17 1109 High-Risk/Critically Ill OB Patient Problems Assessed (Critically Ill/High Risk ) bleeding;fluid imbalance;infection;pain; labor Problems Present (Critically Ill/High Risk ) none * Plan of Care - Ximena Yan RN - 08/13/2017 5:27 PM EST Problem: Patient Care Overview Goal: Plan of Care Review Outcome: Ongoing (Interventions Implemented as Appropriate) 08/12/17 1722 08/13/17 1500 Plan of Care Review Progress progress toward functional goals as expected -- Coping/Psychosocial Plan Of Care Reviewed With -- patient OUTCOME EVALUATION NOTE: OUTCOME SUMMARY: VSS. Pt reporting no bleeding, LOF, pain, or ctx. Endorses positive FM. NST with category I tracing. Pt in better spirits. PLAN MOVING FORWARD: Continue to provide emotional support, monitor well being. INDIVIDUALIZED FALL PREVENTION INTERVENTIONS: Patient-specific fall risk factors per assessment: [current deficits]: none Assistance [level of assistance required for transfers and ambulation]: indep Supervision [direct monitoring required during toileting and ADLs]: Call light in reach; Pt aware of BP emergency pike Surveillance [continuous indirect monitoring]: Purposeful rounding, VS Patient-specific fall prevention interventions for sensory deficits provided, if applicable: [facility] GOAL OUTCOME EVALUATION: Goal: Individualization & Mutuality Outcome: Ongoing (Interventions Implemented as Appropriate) 08/11/17 03108/12/17411 Individualization Patient Specific Preferences -- Likes to sleep until late morning Patient Specific Goals -- remain for at least 34 weeks Patient Specific Interventions AP care, VS as ordered, blood glucose monitoring as ordered, daily NST -- Mutuality/Individual Preferences What Anxieties, Fears or Concerns Do You Have About Your Health or Care? -- ultrasound results still with vasa previa, difficulty in coping with being away from kids What Questions Do You Have About Your Health or Care? -- denies at this time What Information Would Help Us Give You More Personalized Care? -- keep informed of any change in plan of care Goal: Fall Prevention-Safe Patient Handling Outcome: Ongoing (Interventions Implemented as Appropriate) 08/12/1741108/13/17 1500 Activity and Safety Assistive Device None -- Daily Care Interventions Self-Care Promotion -- independence encouraged;BADL personal objects within reach Musculoskeletal Interventions Muscle Strengthening activity/mobility promoted -- Barbour Fall Risk History of Falling -- 0 Secondary Diagnosis -- 0 Ambulatory Aids -- 0 Intravenous Therapy/Heparin/Saline Lock -- 20 Gait/Transferring -- 0 Mental Status -- 0 Score -- 20 OTHER Barbour Fall Risk -- Low Restraint Interventions Safety Promotion/Fall Prevention -- safety round/check completed Positioning Body Position -- independent Goal: Infection Control Outcome: Ongoing (Interventions Implemented as Appropriate) 08/13/17 1500 Safety Interventions Isolation Precautions standard precautions maintained Infection Prevention environmental surveillance performed Coping Strategies Supportive Measures active listening utilized;positive reinforcement provided;self-care encouraged;verbalization of feelings encouraged Goal: Discharge Needs Assessment Outcome: Ongoing (Interventions Implemented as Appropriate) 08/03/17 0559 08/12/17411 Discharge Needs Assessment Concerns To Be Addressed -- denies needs/concerns at this time Readmission Within The Last 30 Days -- no previous admission in last 30 days Provider Choice List(s) Given no -- Equipment Needed After Discharge -- none Discharge Disposition -- still a patient Current Health Anticipated Changes Related to Illness -- inability to work Activity/Self Care Review of Systems Equipment Currently Used at Home -- none Living Environment Transportation Available -- family or friend will provide Goal: Interdisciplinary Rounds/Family Conf Outcome: Ongoing (Interventions Implemented as Appropriate) 08/10/17 0917 08/12/17 0530 Interdisciplinary Rounds/Family Conf Summary Team rounds -- Participants -- nursing;patient Problem: High-Risk/Critically Ill Patient (Obstetrics) Goal: Signs and Symptoms of Listed Potential Problems Will be Absent, Minimized or Managed (High-Risk/Critically Ill Patient) Signs and symptoms of listed potential problems will be absent, minimized or managed by discharge/transition of care (reference High-Risk/Critically Ill Patient (Obstetrics) [facility]). Outcome: Ongoing (Interventions Implemented as Appropriate) 08/13/17 1500 High-Risk/Critically Ill OB Patient Problems Assessed (Critically Ill/High Risk ) other (see comments) (all) Problems Present (Critically Ill/High Risk ) none * Plan of Care - Belkis Strong RN - 08/13/2017 5:47 AM EST Problem: Patient Care Overview Goal: Plan of Care Review Outcome: Ongoing (Interventions Implemented as Appropriate) 08/12/17172108/12/172037 Plan of Care Review Progress progress toward functional goals as expected -- Coping/Psychosocial Plan Of Care Reviewed With -- patient OUTCOME EVALUATION NOTE: OUTCOME SUMMARY: VSS. Assessment as documented. PLAN MOVING FORWARD: Continue to monitor maternal and wellbeing. INDIVIDUALIZED FALL PREVENTION INTERVENTIONS: Patient-specific fall risk factors per assessment: [current deficits]: none Assistance [level of assistance required for transfers and ambulation]: independent Supervision [direct monitoring required during toileting and ADLs]: none Surveillance [continuous indirect monitoring]: purposeful rounding Patient-specific fall prevention interventions for sensory deficits provided, if applicable: none [facility] GOAL OUTCOME EVALUATION: Goal: Fall Prevention-Safe Patient Handling Outcome: Ongoing (Interventions Implemented as Appropriate) 08/11/17199908/12/17 0412 08/12/172037 Activity and Safety Assistive Device -- None -- Daily Care Interventions Self-Care Promotion independence encouraged;BADL personal objects within reach;BADL personal routines maintained -- -- Musculoskeletal Interventions Muscle Strengthening -- activity/mobility promoted -- Barbour Fall Risk History of Falling -- -- 0 Secondary Diagnosis -- -- 15 Ambulatory Aids -- -- 0 Intravenous Therapy/Heparin/Saline Lock -- -- 20 Gait/Transferring -- -- 0 Mental Status -- -- 0 Score -- -- 35 OTHER Barbour Fall Risk -- -- Med Restraint Interventions Safety Promotion/Fall Prevention -- -- safety round/check completed Positioning Body Position -- -- independent Goal: Infection Control Outcome: Ongoing (Interventions Implemented as Appropriate) 08/12/172037 Safety Interventions Isolation Precautions standard precautions maintained Infection Prevention environmental surveillance performed;rest/sleep promoted;visitors restricted/screened;single patient room provided Coping Strategies Supportive Measures active listening utilized;decision-making supported;goal setting facilitated;positive reinforcement provided;problem solving facilitated;relaxation techniques promoted;self-care encouraged;self-reflection promoted;self-responsibility promoted;verbalization of feelings encouraged Goal: Discharge Needs Assessment Outcome: Ongoing (Interventions Implemented as Appropriate) 08/03/17 0559 08/12/17 0412 Discharge Needs Assessment Concerns To Be Addressed -- denies needs/concerns at this time Readmission Within The Last 30 Days -- no previous admission in last 30 days Provider Choice List(s) Given no -- Equipment Needed After Discharge -- none Discharge Disposition -- still a patient Current Health Anticipated Changes Related to Illness -- inability to work Activity/Self Care Review of Systems Equipment Currently Used at Home -- none Living Environment Transportation Available -- family or friend will provide Goal: Interdisciplinary Rounds/Family Conf Outcome: Ongoing (Interventions Implemented as Appropriate) 08/12/17 0530 Interdisciplinary Rounds/Family Conf Participants nursing;patient Problem: High-Risk/Critically Ill Patient (Obstetrics) Goal: Signs and Symptoms of Listed Potential Problems Will be Absent, Minimized or Managed (High-Risk/Critically Ill Patient) Signs and symptoms of listed potential problems will be absent, minimized or managed by discharge/transition of care (reference High-Risk/Critically Ill Patient (Obstetrics) [facility]). Outcome: Ongoing (Interventions Implemented as Appropriate) 08/12/17 1333 High-Risk/Critically Ill OB Patient Problems Assessed (Critically Ill/High Risk ) bleeding;infection;IUFD (intrauterine );pain;premature rupture of membranes; labor;situational response Problems Present (Critically Ill/High Risk ) situational response * Plan of Care - Alisson Ham RN - 08/12/2017 5:52 PM EST Problem: Patient Care Overview Goal: Plan of Care Review Outcome: Ongoing (Interventions Implemented as Appropriate) 08/12/17 1722 Plan of Care Review Progress progress toward functional goals as expected Coping/Psychosocial Plan Of Care Reviewed With patient OUTCOME EVALUATION NOTE: OUTCOME SUMMARY: Pt had a non-eventful shift in which she slept mostly. VSS, up ad-catina, voiding spontaneously. Pt denies cramping, leaking, or bleeding. Pt states fetus is active. Betamethasone complete. Pt corporative with plan of care and agrees to call RN if needs arise. Pt states she had a tough day with family matters and not being able to take care of her kids when she is hospitalized. Pt refused NST and care until later in the shift and stated she only wanted to sleep without interruptions. Pt shared feelings of frustration and no control. RN discussed the importance of understanding the pt's normal routine so that the POC can accommodate the pt's schedule. RN discussed pt's frustrations and desires with charge operator, Joy Bond, and with MDs Nino. PLAN MOVING FORWARD: MDs and charge operator said they would pass along pt requests to MDs who round in the morning. Pt requesting to go off unit for short periods accompanied with RN, re- schedule insulin doses so she can sleep without interruptions in the mornings, and NST after she wakes up and eats breaskfast (around 11-12pm). MDs also ordered message therapy for pt. Continue NST daily, SCDs, blood glucose monitoring with insulin coverage if indicated and encouraging appropriate food choices with carbohydrate control diet. Encourage ambulation, water intake, and for pt to continue to ask questions and be involved in her own care. INDIVIDUALIZED FALL PREVENTION INTERVENTIONS: Patient-specific fall risk factors per assessment: [current deficits]: none Assistance [level of assistance required for transfers and ambulation]: none Supervision [direct monitoring required during toileting and ADLs]: independent * Plan of Care - Daisy Mike RN - 08/12/2017 4:22 AM EST Problem: Patient Care Overview Goal: Plan of Care Review Outcome: Ongoing (Interventions Implemented as Appropriate) 08/12/17 0412 Plan of Care Review Progress no change Coping/Psychosocial Plan Of Care Reviewed With patient OUTCOME EVALUATION NOTE: OUTCOME SUMMARY: Pt remains , VS stable, no complaints this shift. Pt looked sad & withdrawn at start of shift last night because of her ultrasound results that showed her vasa previa is still the same & that she has to stay in the hospital until she delivers. Pt's friend came late last night & will be staying with her overnight. See care plan goal summaries & comprehensive report for maternal & status. PLAN MOVING FORWARD: Continue care as directed in [facility] care plans. INDIVIDUALIZED FALL PREVENTION: Assistance: None, pt independent Supervision: Remind pt to call for assistance when needed, call light within reach Surveillance: Purposeful rounding [facility] OUTCOME EVALUATION: Goal: Individualization & Mutuality Outcome: Ongoing (Interventions Implemented as Appropriate) 08/11/1730908/12/17411 Individualization Patient Specific Preferences -- Likes to sleep until late morning Patient Specific Goals -- remain for at least 34 weeks Patient Specific Interventions AP care, VS as ordered, blood glucose monitoring as ordered, daily NST -- Mutuality/Individual Preferences What Anxieties, Fears or Concerns Do You Have About Your Health or Care? -- ultrasound results still with vasa previa, difficulty in coping with being away from kids What Questions Do You Have About Your Health or Care? -- denies at this time What Information Would Help Us Give You More Personalized Care? -- keep informed of any change in plan of care Goal: Fall Prevention-Safe Patient Handling Outcome: Ongoing (Interventions Implemented as Appropriate) 08/11/17199908/12/17411 Activity and Safety Assistive Device -- None Daily Care Interventions Self-Care Promotion independence encouraged;BADL personal objects within reach;BADL personal routines maintained -- Musculoskeletal Interventions Muscle Strengthening -- activity/mobility promoted Barbour Fall Risk History of Falling 0 -- Secondary Diagnosis 15 -- Ambulatory Aids 0 -- Intravenous Therapy/Heparin/Saline Lock 20 -- Gait/Transferring 0 -- Mental Status 0 -- Score 35 -- OTHER Barbour Fall Risk Med -- Restraint Interventions Safety Promotion/Fall Prevention fall prevention program maintained;nonskid shoes/slippers when outof bed -- Positioning Body Position independent -- Goal: Infection Control Outcome: Ongoing (Interventions Implemented as Appropriate) 08/11/171999 Safety Interventions Isolation Precautions standard precautions maintained Infection Prevention environmental surveillance performed;rest/sleep promoted;single patient room provided Coping Strategies Supportive Measures active listening utilized;decision-making supported;goal setting facilitated;positive reinforcement provided;verbalization of feelings encouraged Goal: Discharge Needs Assessment Outcome: Ongoing (Interventions Implemented as Appropriate) 08/12/17411 Discharge Needs Assessment Concerns To Be Addressed denies needs/concerns at this time Readmission Within The Last 30 Days no previous admission in last 30 days Equipment Needed After Discharge none Discharge Disposition still a patient Current Health Anticipated Changes Related to Illness inability to work Activity/Self Care Review of Systems Equipment Currently Used at Home none Living Environment Transportation Available family or friend will provide Goal: Interdisciplinary Rounds/Family Conf Outcome: Ongoing (Interventions Implemented as Appropriate) 08/12/17411 Interdisciplinary Rounds/Family Conf Participants nursing;patient Problem: High-Risk/Critically Ill Patient (Obstetrics) Goal: Signs and Symptoms of Listed Potential Problems Will be Absent, Minimized or Managed (High-Risk/Critically Ill Patient) Signs and symptoms of listed potential problems will be absent, minimized or managed by discharge/transition of care (reference High-Risk/Critically Ill Patient (Obstetrics) [facility]). Outcome: Ongoing (Interventions Implemented as Appropriate) 08/11/171999 High-Risk/Critically Ill OB Patient Problems Assessed (Critically Ill/High Risk ) other (see comments) (ALL) Problems Present (Critically Ill/High Risk ) none * Plan of Care - Asif Grove RN - 08/11/2017 5:41 PM EST Problem: Patient Care Overview Goal: Plan of Care Review Outcome: Ongoing (Interventions Implemented as Appropriate) 08/11/17 0808/11/17 1736 Plan of Care Review Progress -- no change Coping/Psychosocial Plan Of Care Reviewed With patient -- OUTCOME EVALUATION NOTE: OUTCOME SUMMARY: Pt denies [place], visual change, epigastric pain, edema, LOF, bleeding, or ctx. +FM. Daily NST completed. Formal US completed - vesa previa remains. MD Rosario in to review US results with pt. Pt disappointed with plan to remain hospitalized until delivery. Emotional support provided. PLAN MOVING FORWARD: Continue hospitalization until delivery - see MD notes for details. INDIVIDUALIZED FALL PREVENTION INTERVENTIONS: Patient-specific fall risk factors per assessment: [current deficits]: NA Assistance [level of assistance required for transfers and ambulation]: Independent. Call pike in reach and pt using appropriately Supervision [direct monitoring required during toileting and ADLs]: NA Surveillance [continuous indirect monitoring]: Purposeful rounding, VS, daily NST Patient-specific fall prevention interventions for sensory deficits provided, if applicable: NA [facility] GOAL OUTCOME EVALUATION: No change Goal: Individualization & Mutuality Outcome: Ongoing (Interventions Implemented as Appropriate) 08/11/1730908/11/171735 Individualization Patient Specific Preferences -- likes to sleep late Patient Specific Goals -- stay Patient Specific Interventions AP care, VS as ordered, blood glucose monitoring as ordered, daily NST -- Mutuality/Individual Preferences What Information Would Help Us Give You More Personalized Care? keep me informed on any change in plan of care -- Goal: Fall Prevention-Safe Patient Handling Outcome: Ongoing (Interventions Implemented as Appropriate) 08/11/1730908/11/17826 Activity and Safety Assistive Device None -- Daily Care Interventions Self-Care Promotion -- independence encouraged;BADL personal objects within reach;BADL personal routines maintained Musculoskeletal Interventions Muscle Strengthening activity/mobility promoted -- Barbour Fall Risk History of Falling -- 0 Secondary Diagnosis -- 15 Ambulatory Aids -- 0 Intravenous Therapy/Heparin/Saline Lock -- 20 Gait/Transferring -- 0 Mental Status -- 0 Score -- 35 OTHER Barbour Fall Risk -- Med Restraint Interventions Safety Promotion/Fall Prevention -- nonskid shoes/slippers when out of bed;safety round/check completed;fall prevention program maintained Positioning Body Position -- independent Goal: Infection Control Outcome: Ongoing (Interventions Implemented as Appropriate) 08/11/17826 Safety Interventions Isolation Precautions standard precautions maintained Infection Prevention environmental surveillance performed;personal protective equipment utilized;single patient room provided Coping Strategies Supportive Measures active listening utilized;relaxation techniques promoted;self-care encouraged;verbalization of feelings encouraged Goal: Discharge Needs Assessment Outcome: Ongoing (Interventions Implemented as Appropriate) 08/03/17 0559 08/11/1730908/11/171735 Discharge Needs Assessment Concerns To Be Addressed -- denies needs/concerns at this time -- Readmission Within The Last 30 Days -- no previous admission in last 30 days -- Provider Choice List(s) Given no -- -- Equipment Needed After Discharge -- none -- Discharge Disposition -- -- still a patient Current Health Anticipated Changes Related to Illness -- inability to work -- Activity/Self Care Review of Systems Equipment Currently Used at Home -- none -- Living Environment Transportation Available -- family or friend will provide -- Problem: High-Risk/Critically Ill Patient (Obstetrics) Goal: Signs and Symptoms of Listed Potential Problems Will be Absent, Minimized or Managed (High-Risk/Critically Ill Patient) Signs and symptoms of listed potential problems will be absent, minimized or managed by discharge/transition of care (reference High-Risk/Critically Ill Patient (Obstetrics) [facility]). Outcome: Ongoing (Interventions Implemented as Appropriate) 08/11/17826 High-Risk/Critically Ill OB Patient Problems Assessed (Critically Ill/High Risk ) other (see comments) (all) Problems Present (Critically Ill/High Risk ) none * Plan of Care - Daisy Mike RN - 08/11/2017 3:21 AM EST Problem: Patient Care Overview Goal: Plan of Care Review Outcome: Ongoing (Interventions Implemented as Appropriate) 08/11/17309 Plan of Care Review Progress progress toward functional goals as expected Coping/Psychosocial Plan Of Care Reviewed With patient OUTCOME EVALUATION NOTE: OUTCOME SUMMARY: Pt remains , VS stable, no complaints since the start of this shift so far. Pt is scheduled for a formal ultrasound later today. See care plan goal summaries & comprehensive report for maternal & status. PLAN MOVING FORWARD: Continue care as directed in [facility] care plans. INDIVIDUALIZED FALL PREVENTION: Assistance: None, pt independent Supervision: Remind pt to call for assistance when needed, call light within reach Surveillance: Purposeful rounding [facility] OUTCOME EVALUATION: Goal: Individualization & Mutuality Outcome: Ongoing (Interventions Implemented as Appropriate) 08/11/17309 Individualization Patient Specific Preferences get discharged after ultrasound later today, rest/sleep Patient Specific Goals stay until 34 wks gestation, stable blood glucose, reassuring ultrasound results so discharge will be possible Patient Specific Interventions AP care, VS as ordered, blood glucose monitoring as ordered, daily NST Mutuality/Individual Preferences What Anxieties, Fears or Concerns Do You Have About Your Health or Care? Ultrasound results today that will require longer hospitalization & being away from kids What Questions Do You Have About Your Health or Care? When can I be discharged if ultrasound results are reassurring? What Information Would Help Us Give You More Personalized Care? keep me informed on any change in plan of care Goal: Fall Prevention-Safe Patient Handling Outcome: Ongoing (Interventions Implemented as Appropriate) 08/10/17223408/11/17309 Activity and Safety Assistive Device -- None Daily Care Interventions Self-Care Promotion independence encouraged;BADL personal objects within reach;BADL personal routines maintained -- Musculoskeletal Interventions Muscle Strengthening -- activity/mobility promoted Barbour Fall Risk History of Falling 0 -- Secondary Diagnosis 15 -- Ambulatory Aids 0 -- Intravenous Therapy/Heparin/Saline Lock 20 -- Gait/Transferring 0 -- Mental Status 0 -- Score 35 -- OTHER Barbour Fall Risk Med -- Restraint Interventions Safety Promotion/Fall Prevention fall prevention program maintained;nonskid shoes/slippers when outof bed -- Positioning Body Position independent -- Goal: Infection Control Outcome: Ongoing (Interventions Implemented as Appropriate) 08/10/172234 Safety Interventions Isolation Precautions standard precautions maintained Infection Prevention environmental surveillance performed;rest/sleep promoted;single patient room provided Coping Strategies Supportive Measures active listening utilized;goal setting facilitated;relaxation techniques promoted;verbalization of feelings encouraged Goal: Discharge Needs Assessment Outcome: Ongoing (Interventions Implemented as Appropriate) 08/11/17309 Discharge Needs Assessment Concerns To Be Addressed denies needs/concerns at this time Readmission Within The Last 30 Days no previous admission in last 30 days Equipment Needed After Discharge none Discharge Disposition still a patient Current Health Anticipated Changes Related to Illness inability to work Activity/Self Care Review of Systems Equipment Currently Used at Home none Living Environment Transportation Available family or friend will provide Goal: Interdisciplinary Rounds/Family Conf Outcome: Ongoing (Interventions Implemented as Appropriate) 08/11/17309 Interdisciplinary Rounds/Family Conf Participants nursing;patient Problem: High-Risk/Critically Ill Patient (Obstetrics) Goal: Signs and Symptoms of Listed Potential Problems Will be Absent, Minimized or Managed (High-Risk/Critically Ill Patient) Signs and symptoms of listed potential problems will be absent, minimized or managed by discharge/transition of care (reference High-Risk/Critically Ill Patient (Obstetrics) [facility]). Outcome: Ongoing (Interventions Implemented as Appropriate) 08/10/172234 High-Risk/Critically Ill OB Patient Problems Assessed (Critically Ill/High Risk ) bleeding;infection;pain;premature rupture ofmembranes; labor Problems Present (Critically Ill/High Risk ) none * Plan of Care - Ariadna Marroquin RN - 08/10/2017 6:56 PM EST Problem: Patient Care Overview Goal: Plan of Care Review Outcome: Ongoing (Interventions Implemented as Appropriate) 08/08/17 16208/10/17 1155 Plan of Care Review Progress progress toward functional goals as expected -- Coping/Psychosocial Plan Of Care Reviewed With -- patient OUTCOME EVALUATION NOTE: OUTCOME SUMMARY: Pt late to wake this morning, missed breakfast. Ambulates in room and on unit. During rounds, suggested to pt that it is safer for her to remain on the unit in case an emergency should arise then her outcome would be much better given her proximity to the OR here. This reinforced to pt later in day, she verbalized understanding but not agreeable to staying on the unit. BG and VS remain stable. Pt denies leaking, bleeding, contractions, and reports good movement. NST reactive. PLAN MOVING FORWARD: Continue to monitor VS q6 hours due to soft blood pressure, BG due to gDMA2, vaginal bleeding, and for signs of labor. Goal: Fall Prevention-Safe Patient Handling Outcome: Ongoing (Interventions Implemented as Appropriate) 08/01/17 04208/09/17204108/10/17 1155 Activity and Safety Assistive Device None -- -- Daily Care Interventions Self-Care Promotion -- independence encouraged;BADL personal objects within reach;BADL personal routines maintained -- Musculoskeletal Interventions Muscle Strengthening activity/mobility promoted -- -- Barbour Fall Risk History of Falling -- -- 0 Secondary Diagnosis -- -- 15 Ambulatory Aids -- -- 0 Intravenous Therapy/Heparin/Saline Lock -- -- 20 Gait/Transferring -- -- 0 Mental Status -- -- 0 Score -- -- 35 OTHER Barbour Fall Risk -- -- Med Restraint Interventions Safety Promotion/Fall Prevention -- -- nonskid shoes/slippers when out of bed;safety round/check completed Positioning Body Position -- -- independent Goal: Infection Control Outcome: Ongoing (Interventions Implemented as Appropriate) 08/09/17204108/10/17 1155 Safety Interventions Isolation Precautions standard precautions maintained -- Infection Prevention rest/sleep promoted;environmental surveillance performed;visitors restricted/screened -- Coping Strategies Supportive Measures -- active listening utilized;decision-making supported;self- care encouraged Goal: Discharge Needs Assessment Outcome: Ongoing (Interventions Implemented as Appropriate) 08/03/17 0559 08/07/17 1732 08/10/17 0655 Discharge Needs Assessment Concerns To Be Addressed -- -- no discharge needs identified Readmission Within The Last 30 Days -- no previous admission in last 30 days -- Provider Choice List(s) Given no -- -- Equipment Needed After Discharge -- none -- Discharge Disposition -- still a patient -- Current Health Anticipated Changes Related to Illness -- inability to work -- Activity/Self Care Review of Systems Equipment Currently Used at Home -- -- none Living Environment Transportation Available -- car;family or friend will provide -- Problem: High-Risk/Critically Ill Patient (Obstetrics) Goal: Signs and Symptoms of Listed Potential Problems Will be Absent, Minimized or Managed (High-Risk/Critically Ill Patient) Signs and symptoms of listed potential problems will be absent, minimized or managed by discharge/transition of care (reference High-Risk/Critically Ill Patient (Obstetrics) [facility]). Outcome: Ongoing (Interventions Implemented as Appropriate) 08/10/17 1155 High-Risk/Critically Ill OB Patient Problems Assessed (Critically Ill/High Risk ) bleeding;cardiovascular complications;infection;IUFD (intrauterine );pain;premature rupture of membranes; labor Problems Present (Critically Ill/High Risk ) none * Plan of Care - Belkis Strong RN - 08/10/2017 7:00 AM EST Problem: Patient Care Overview Goal: Plan of Care Review Outcome: Ongoing (Interventions Implemented as Appropriate) 08/08/17 1628 08/09/17 2042 Plan of Care Review Progress progress toward functional goals as expected -- Coping/Psychosocial Plan Of Care Reviewed With -- patient OUTCOME EVALUATION NOTE: OUTCOME SUMMARY: VSS. Assessment as documented. Pt feels good movement. She denies cramping, contractions, leaking of fluid, and vaginal bleeding. PLAN MOVING FORWARD: Continue to monitor maternal and wellbeing. INDIVIDUALIZED FALL PREVENTION INTERVENTIONS: Patient-specific fall risk factors per assessment: [current deficits]: none Assistance [level of assistance required for transfers and ambulation]: independent Supervision [direct monitoring required during toileting and ADLs]: none Surveillance [continuous indirect monitoring]: purposeful rounding Patient-specific fall prevention interventions for sensory deficits provided, if applicable: none [facility] GOAL OUTCOME EVALUATION: Goal: Individualization & Mutuality Outcome: Ongoing (Interventions Implemented as Appropriate) 07/28/17 1700 07/31/17 0320 Individualization Patient Specific Preferences -- continue with her current diet, rest/sleep Patient Specific Goals -- stay until 34 weeks gestation, stable blood glucose Patient Specific Interventions -- AP care, VS per protocol, blood glucose monitoring as ordered, daily NST Mutuality/Individual Preferences What Anxieties, Fears or Concerns Do You Have About Your Health or Care? I'm going to miss my kidsa lot. I've never had to stay in the hospital for so long -- What Questions Do You Have About Your Health or Care? -- concerned about diet restriction What Information Would Help Us Give You More Personalized Care? keep me informed -- Goal: Fall Prevention-Safe Patient Handling Outcome: Ongoing (Interventions Implemented as Appropriate) 08/01/17 04208/09/172041 Activity and Safety Assistive Device None -- Daily Care Interventions Self-Care Promotion -- independence encouraged;BADL personal objects within reach;BADL personal routines maintained Musculoskeletal Interventions Muscle Strengthening activity/mobility promoted -- Barbour Fall Risk History of Falling -- 0 Secondary Diagnosis -- 15 Ambulatory Aids -- 0 Intravenous Therapy/Heparin/Saline Lock -- 20 Gait/Transferring -- 0 Mental Status -- 0 Score -- 35 OTHER Barbour Fall Risk -- Med Restraint Interventions Safety Promotion/Fall Prevention -- safety round/check completed Positioning Body Position -- independent Goal: Infection Control Outcome: Ongoing (Interventions Implemented as Appropriate) 08/09/172041 Safety Interventions Isolation Precautions standard precautions maintained Infection Prevention rest/sleep promoted;environmental surveillance performed;visitors restricted/screened Coping Strategies Supportive Measures active listening utilized;decision-making supported;goal setting facilitated;positive reinforcement provided;relaxation techniques promoted;self-care encouraged;self-reflection promoted;self-responsibility promoted;verbalization of feelings encouraged Goal: Discharge Needs Assessment Outcome: Ongoing (Interventions Implemented as Appropriate) 08/03/17 0559 08/07/17 1732 08/10/17 0655 Discharge Needs Assessment Concerns To Be Addressed -- -- no discharge needs identified Readmission Within The Last 30 Days -- no previous admission in last 30 days -- Provider Choice List(s) Given no -- -- Equipment Needed After Discharge -- none -- Discharge Disposition -- still a patient -- Current Health Anticipated Changes Related to Illness -- inability to work -- Activity/Self Care Review of Systems Equipment Currently Used at Home -- -- none Living Environment Transportation Available -- car;family or friend will provide -- Goal: Interdisciplinary Rounds/Family Conf Outcome: Ongoing (Interventions Implemented as Appropriate) 08/05/17 1428 Interdisciplinary Rounds/Family Conf Participants nursing;patient;physician Problem: High-Risk/Critically Ill Patient (Obstetrics) Goal: Signs and Symptoms of Listed Potential Problems Will be Absent, Minimized or Managed (High-Risk/Critically Ill Patient) Signs and symptoms of listed potential problems will be absent, minimized or managed by discharge/transition of care (reference High-Risk/Critically Ill Patient (Obstetrics) [facility]). Outcome: Ongoing (Interventions Implemented as Appropriate) 08/10/17 0655 High-Risk/Critically Ill OB Patient Problems Assessed (Critically Ill/High Risk ) bleeding; labor;premature rupture of membranes;pain;infection Problems Present (Critically Ill/High Risk ) none * Plan of Care - Henrik Galarza RN - 08/09/2017 6:44 PM EST Problem: Patient Care Overview Goal: Plan of Care Review Outcome: Ongoing (Interventions Implemented as Appropriate) 08/08/17 1628 08/09/17 1120 Plan of Care Review Progress progress toward functional goals as expected -- Coping/Psychosocial Plan Of Care Reviewed With -- patient OUTCOME EVALUATION NOTE: OUTCOME SUMMARY: Pam was stable this shift, VSS, afebrile. Assessment as documented. No pain, no contx, no vaginal bleeding. No untoward events. Pt ambulated off unit this shift to [facility]; RN educated patient about leaving the unit, and pt verbalized understanding of the risks. PLAN MOVING FORWARD: Continue to monitor and assess for bleeding. INDIVIDUALIZED FALL PREVENTION INTERVENTIONS: Patient-specific fall risk factors per assessment: [current deficits]: Antepartum, vasa previa Assistance [level of assistance required for transfers and ambulation]: independent Supervision [direct monitoring required during toileting and ADLs]: independent Surveillance [continuous indirect monitoring]: RN performing regular safety checks and call pike within reach and family at bedside Patient-specific fall prevention interventions for sensory deficits provided, if applicable: [X] Yes [facility] GOAL OUTCOME EVALUATION: Goal: Fall Prevention-Safe Patient Handling Outcome: Ongoing (Interventions Implemented as Appropriate) 08/01/17 0425 08/09/17 1120 Activity and Safety Assistive Device None -- Daily Care Interventions Self-Care Promotion -- BADL personal objects within reach;BADL personal routines maintained;independence encouraged Musculoskeletal Interventions Muscle Strengthening activity/mobility promoted -- Barbour Fall Risk History of Falling -- 0 Secondary Diagnosis -- 15 Ambulatory Aids -- 0 Intravenous Therapy/Heparin/Saline Lock -- 20 Gait/Transferring -- 0 Mental Status -- 0 Score -- 35 OTHER Barbour Fall Risk -- Med Restraint Interventions Safety Promotion/Fall Prevention -- nonskid shoes/slippers when out of bed;safety round/check completed Positioning Body Position -- independent Goal: Infection Control Outcome: Ongoing (Interventions Implemented as Appropriate) 08/09/17 1120 Safety Interventions Isolation Precautions standard precautions maintained Infection Prevention environmental surveillance performed;rest/sleep promoted;single patient room provided Coping Strategies Supportive Measures decision-making supported;verbalization of feelings encouraged;self-responsibility promoted;problem solving facilitated;positive reinforcement provided;active listening utilized Goal: Discharge Needs Assessment Outcome: Ongoing (Interventions Implemented as Appropriate) 08/03/17 0559 08/07/17 1732 Discharge Needs Assessment Concerns To Be Addressed -- no discharge needs identified Readmission Within The Last 30 Days -- no previous admission in last 30 days Provider Choice List(s) Given no -- Equipment Needed After Discharge -- none Discharge Disposition -- still a patient Current Health Anticipated Changes Related to Illness -- inability to work Activity/Self Care Review of Systems Equipment Currently Used at Home -- none Living Environment Transportation Available -- car;family or friend will provide Goal: Interdisciplinary Rounds/Family Conf Outcome: Ongoing (Interventions Implemented as Appropriate) 08/05/17 1428 Interdisciplinary Rounds/Family Conf Participants nursing;patient;physician Problem: High-Risk/Critically Ill Patient (Obstetrics) Goal: Signs and Symptoms of Listed Potential Problems Will be Absent, Minimized or Managed (High-Risk/Critically Ill Patient) Signs and symptoms of listed potential problems will be absent, minimized or managed by discharge/transition of care (reference High-Risk/Critically Ill Patient (Obstetrics) [facility]). Outcome: Ongoing (Interventions Implemented as Appropriate) 08/09/17 1120 High-Risk/Critically Ill OB Patient Problems Assessed (Critically Ill/High Risk ) other (see comments) (all) Problems Present (Critically Ill/High Risk ) none * Plan of Care - Daya Ornelas RN - 08/09/2017 5:54 AM EST Problem: Patient Care Overview Goal: Plan of Care Review Outcome: Ongoing (Interventions Implemented as Appropriate) 08/08/17 1628 08/08/17 2200 Plan of Care Review Progress progress toward functional goals as expected -- Coping/Psychosocial Plan Of Care Reviewed With -- patient OUTCOME EVALUATION NOTE: OUTCOME SUMMARY: VSS, afebrile. Pt doing well and has no complaints. Fetus active. Denies LOF, bleeding or contractions. Denies abdominal tenderness. Denies SALMERON, visual changes or epigastric pain. Saline lock flushingwell. See flow sheet for more info. PLAN MOVING FORWARD: Continue with current plan of care for AP patient. Continue to offer support and education. INDIVIDUALIZED FALL PREVENTION: Assistance: Independent. Supervision: Pt encouraged to call with questions, concerns or changes. Surveillance: Purposeful rounding [facility] OUTCOME EVALUATION: * Plan of Care - Asif Grove RN - 08/08/2017 4:31 PM EST Problem: Patient Care Overview Goal: Plan of Care Review Outcome: Ongoing (Interventions Implemented as Appropriate) 08/08/17 1155 08/08/17 1628 Plan of Care Review Progress -- progress toward functional goals as expected Coping/Psychosocial Plan Of Care Reviewed With patient -- OUTCOME EVALUATION NOTE: OUTCOME SUMMARY: Pt denies SALMERON, visual change, epigastric pain, edema, LOF, bleeding, or ctx. +FM. Daily NST completed. Pt reports to be feeling much better than yesterday. Excited to have children visit this afternoon. PLAN MOVING FORWARD: Continue with POC - no change. INDIVIDUALIZED FALL PREVENTION INTERVENTIONS: Patient-specific fall risk factors per assessment: [current deficits]: NA Assistance [level of assistance required for transfers and ambulation]: Independent. Call pike in reach and pt using appropriately Supervision [direct monitoring required during toileting and ADLs]: NA Surveillance [continuous indirect monitoring]: Purposeful rounding, VS, I/O, daily NST Patient-specific fall prevention interventions for sensory deficits provided, if applicable: NA [facility] GOAL OUTCOME EVALUATION: Progressing toward goal Goal: Individualization & Mutuality Outcome: Ongoing (Interventions Implemented as Appropriate) 07/28/17 1700 07/31/17 0320 Individualization Patient Specific Preferences -- continue with her current diet, rest/sleep Patient Specific Goals -- stay until 34 weeks gestation, stable blood glucose Patient Specific Interventions -- AP care, VS per protocol, blood glucose monitoring as ordered, daily NST Mutuality/Individual Preferences What Anxieties, Fears or Concerns Do You Have About Your Health or Care? I'm going to miss my kidsa lot. I've never had to stay in the hospital for so long -- What Questions Do You Have About Your Health or Care? -- concerned about diet restriction What Information Would Help Us Give You More Personalized Care? keep me informed -- Goal: Fall Prevention-Safe Patient Handling Outcome: Ongoing (Interventions Implemented as Appropriate) 08/01/17 0425 08/08/17 1155 Activity and Safety Assistive Device None -- Daily Care Interventions Self-Care Promotion -- independence encouraged;BADL personal objects within reach;BADL personal routines maintained Musculoskeletal Interventions Muscle Strengthening activity/mobility promoted -- Barbour Fall Risk History of Falling -- 0 Secondary Diagnosis -- 15 Ambulatory Aids -- 0 Intravenous Therapy/Heparin/Saline Lock -- 20 Gait/Transferring -- 0 Mental Status -- 0 Score -- 35 OTHER Barbour Fall Risk -- Med Restraint Interventions Safety Promotion/Fall Prevention -- fall prevention program maintained;nonskid shoes/slippers when out of bed;safety round/check completed Positioning Body Position -- independent Goal: Infection Control Outcome: Ongoing (Interventions Implemented as Appropriate) 08/08/17 1155 Safety Interventions Isolation Precautions standard precautions maintained Infection Prevention environmental surveillance performed;personal protective equipment utilized;rest/sleep promoted;single patient room provided Coping Strategies Supportive Measures positive reinforcement provided;relaxation techniques promoted;self-care encouraged Goal: Discharge Needs Assessment Outcome: Ongoing (Interventions Implemented as Appropriate) 08/03/17 0559 08/07/17 1730 Discharge Needs Assessment Concerns To Be Addressed -- no discharge needs identified Readmission Within The Last 30 Days -- no previous admission in last 30 days Provider Choice List(s) Given no -- Equipment Needed After Discharge -- none Discharge Disposition -- still a patient Current Health Anticipated Changes Related to Illness -- inability to work Activity/Self Care Review of Systems Equipment Currently Used at Home -- none Living Environment Transportation Available -- car;family or friend will provide Problem: High-Risk/Critically Ill Patient (Obstetrics) Goal: Signs and Symptoms of Listed Potential Problems Will be Absent, Minimized or Managed (High-Risk/Critically Ill Patient) Signs and symptoms of listed potential problems will be absent, minimized or managed by discharge/transition of care (reference High-Risk/Critically Ill Patient (Obstetrics) CPG). Outcome: Ongoing (Interventions Implemented as Appropriate) 08/08/17 1155 High-Risk/Critically Ill OB Patient Problems Assessed (Critically Ill/High Risk ) other (see comments) (all) Problems Present (Critically Ill/High Risk ) none * Plan of Care - Samira Reich RN - 08/08/2017 5:21 AM EST Problem: High-Risk/Critically Ill Patient (Obstetrics) Goal: Signs and Symptoms of Listed Potential Problems Will be Absent, Minimized or Managed (High-Risk/Critically Ill Patient) Signs and symptoms of listed potential problems will be absent, minimized or managed by discharge/transition of care (reference High-Risk/Critically Ill Patient (Obstetrics) CPG). Outcome: Ongoing (Interventions Implemented as Appropriate) OUTCOME EVALUATION NOTE: OUTCOME SUMMARY: Plan of care for today reviewed with patient, including VS, medications, EFM, diet, activity and indications for delivery. Patient denies UCs, SALMERON, visual changes, N/V, epigastric pain, LOF, and VB. Patient reports +FM. Patient up ad catina to bathroom, Patient tolerating PO diet and adequate PO fluids. Patient verbalizes understanding plan of care. PLAN MOVING FORWARD: Continue current plan of care INDIVIDUALIZED FALL PREVENTION INTERVENTIONS: Patient-specific fall risk factors per assessment: [current deficits]: See flowsheet Assistance [level of assistance required for transfers and ambulation]: See flowsheet Supervision [direct monitoring required during toileting and ADLs]: No Surveillance [continuous indirect monitoring]: Purposeful rounding Patient-specific fall prevention interventions for sensory deficits provided, if applicable: [X] N/A CPG GOAL OUTCOME EVALUATION: * Plan of Care - Ariadna Marroquin RN - 08/07/2017 6:10 PM EST Problem: Patient Care Overview Goal: Plan of Care Review Outcome: Ongoing (Interventions Implemented as Appropriate) 08/03/17 0559 08/07/17 0953 Plan of Care Review Progress progress toward functional goals as expected -- Coping/Psychosocial Plan Of Care Reviewed With -- patient OUTCOME EVALUATION NOTE: OUTCOME SUMMARY: Pt not feeling well today. States she feels groggy, dizzy, nauseous and at one time reported seeingblack spots, this has resolved. BP even lower than her norm. MD notified, VS changed to every 6 hours to monitor. Explained this to pt, she verbalized understanding. Pt vomit X3, notified, ondansetron ordered and administered. IV started leaking with med administration, attempt x2 to obtain new access unsuccessful. Pt very emotional with this, anxious and crying and repeating, I want to go home. Reassurance and comfort provided. IV team paged and inserted new peripheral line. The site became painful and upon assessment, dressing had been taken down by pt. IV team came and redressed the site x2. Reinforced importance of not taking down the dressing. Pt reports good movement and denies bleeding, leaking, and contractions. BG slightly elevated after lunch but not high enough for treatment. PLAN MOVING FORWARD: Pt feeling better at this time. Continue to monitor VS with higher frequency. Continue BG checks. Ultrasound scheduled for 08/11 and further plan assessment at that time. Goal: Fall Prevention-Safe Patient Handling Outcome: Ongoing (Interventions Implemented as Appropriate) 08/01/17 0425 08/05/17 0929 08/07/17 0957 Activity and Safety Assistive Device None -- -- Daily Care Interventions Self-Care Promotion -- independence encouraged -- Musculoskeletal Interventions Muscle Strengthening activity/mobility promoted -- -- Barbour Fall Risk History of Falling -- -- 0 Secondary Diagnosis -- -- 0 Ambulatory Aids -- -- 0 Intravenous Therapy/Heparin/Saline Lock -- -- 20 Gait/Transferring -- -- 0 Mental Status -- -- 0 Score -- -- 20 OTHER Barbour Fall Risk -- -- Low Restraint Interventions Safety Promotion/Fall Prevention -- -- nonskid shoes/slippers when out of bed;safety round/check completed Positioning Body Position -- -- independent Goal: Infection Control Outcome: Ongoing (Interventions Implemented as Appropriate) 08/07/17 0953 Safety Interventions Isolation Precautions standard precautions maintained Infection Prevention single patient room provided;rest/sleep promoted Coping Strategies Supportive Measures self-care encouraged;self-reflection promoted;verbalization of feelings encouraged Goal: Discharge Needs Assessment Outcome: Ongoing (Interventions Implemented as Appropriate) 08/07/171731 Discharge Needs Assessment Concerns To Be Addressed no discharge needs identified Readmission Within The Last 30 Days no previous admission in last 30 days Equipment Needed After Discharge none Discharge Disposition still a patient Current Health Anticipated Changes Related to Illness inability to work Activity/Self Care Review of Systems Equipment Currently Used at Home none Living Environment Transportation Available car;family or friend will provide Problem: High-Risk/Critically Ill Patient (Obstetrics) Goal: Signs and Symptoms of Listed Potential Problems Will be Absent, Minimized or Managed (High-Risk/Critically Ill Patient) Signs and symptoms of listed potential problems will be absent, minimized or managed by discharge/transition of care (reference High-Risk/Critically Ill Patient (Obstetrics) CPG). Outcome: Ongoing (Interventions Implemented as Appropriate) 08/07/1753 08/07/17 1732 High-Risk/Critically Ill OB Patient Problems Assessed (Critically Ill/High Risk ) bleeding;cardiovascular complications;infection;IUFD (intrauterine );pain;premature rupture of membranes; labor;situational response -- Problems Present (Critically Ill/High Risk ) -- situational response (pt is anxious about extended hospital stay. Weepy at times) * Plan of Care - Samira Reich RN - 08/07/2017 4:50 AM EST Problem: High-Risk/Critically Ill Patient (Obstetrics) Goal: Signs and Symptoms of Listed Potential Problems Will be Absent, Minimized or Managed (High-Risk/Critically Ill Patient) Signs and symptoms of listed potential problems will be absent, minimized or managed by discharge/transition of care (reference High-Risk/Critically Ill Patient (Obstetrics) CPG). Outcome: Ongoing (Interventions Implemented as Appropriate) OUTCOME EVALUATION NOTE: OUTCOME SUMMARY: Plan of care for today reviewed with patient, including VS, medications, EFM, diet, activity and indications for delivery. Patient denies UCs, SALMERON, visual changes, N/V, epigastric pain, LOF, and VB. Patient reports +FM. Patient up ad catina to bathroom, Patient tolerating PO diet and adequate PO fluids. Patient verbalizes understanding plan of care. PLAN MOVING FORWARD: Continue current plan of care INDIVIDUALIZED FALL PREVENTION INTERVENTIONS: Patient-specific fall risk factors per assessment: [current deficits]: See flowsheet Assistance [level of assistance required for transfers and ambulation]: See flowsheet Supervision [direct monitoring required during toileting and ADLs]: No Surveillance [continuous indirect monitoring]: Purposeful rounding Patient-specific fall prevention interventions for sensory deficits provided, if applicable: [X] N/A CPG GOAL OUTCOME EVALUATION: * Plan of Care - Pastora Pfeiffer RN - 08/06/2017 12:47 PM EST Problem: Patient Care Overview Goal: Plan of Care Review Outcome: Ongoing (Interventions Implemented as Appropriate) 08/03/17 0559 08/06/17 1000 Plan of Care Review Progress progress toward functional goals as expected -- Coping/Psychosocial Plan Of Care Reviewed With -- patient OUTCOME EVALUATION NOTE: OUTCOME SUMMARY: PT being monitored for bleeding and well being due to vasa previa. PLAN MOVING FORWARD: Continue to monitor for bleeding and pain and monitor well being. INDIVIDUALIZED FALL PREVENTION INTERVENTIONS: Patient-specific fall risk factors per assessment: [current deficits]: none Assistance [level of assistance required for transfers and ambulation]: none Supervision [direct monitoring required during toileting and ADLs]: none Surveillance [continuous indirect monitoring]: Purposeful rounding Patient-specific fall prevention interventions for sensory deficits provided, if applicable: [X] N/A CPG GOAL OUTCOME EVALUATION: Goal: Individualization & Mutuality Outcome: Ongoing (Interventions Implemented as Appropriate) 07/28/17 1700 07/31/17 0320 Individualization Patient Specific Preferences -- continue with her current diet, rest/sleep Patient Specific Goals -- stay until 34 weeks gestation, stable blood glucose Patient Specific Interventions -- AP care, VS per protocol, blood glucose monitoring as ordered, daily NST Mutuality/Individual Preferences What Anxieties, Fears or Concerns Do You Have About Your Health or Care? I'm going to miss my kidsa lot. I've never had to stay in the hospital for so long -- What Questions Do You Have About Your Health or Care? -- concerned about diet restriction What Information Would Help Us Give You More Personalized Care? keep me informed -- Goal: Fall Prevention-Safe Patient Handling Outcome: Ongoing (Interventions Implemented as Appropriate) 08/01/17 0425 08/05/1792808/05/17 2200 Activity and Safety Assistive Device None -- -- Daily Care Interventions Self-Care Promotion -- independence encouraged -- Musculoskeletal Interventions Muscle Strengthening activity/mobility promoted -- -- Barbour Fall Risk History of Falling -- -- -- Secondary Diagnosis -- -- -- Ambulatory Aids -- -- -- Intravenous Therapy/Heparin/Saline Lock -- -- -- Gait/Transferring -- -- -- Mental Status -- -- -- Score -- -- -- OTHER Barbour Fall Risk -- -- Low Restraint Interventions Safety Promotion/Fall Prevention -- -- -- Positioning Body Position -- independent -- 08/06/17 1000 Activity and Safety Assistive Device -- Daily Care Interventions Self-Care Promotion -- Musculoskeletal Interventions Muscle Strengthening -- Barbour Fall Risk History of Falling 0 Secondary Diagnosis 15 Ambulatory Aids 0 Intravenous Therapy/Heparin/Saline Lock 20 Gait/Transferring 0 Mental Status 0 Score 35 OTHER Barbour Fall Risk -- Restraint Interventions Safety Promotion/Fall Prevention safety round/check completed Positioning Body Position -- Goal: Infection Control Outcome: Ongoing (Interventions Implemented as Appropriate) 08/05/1792808/06/17 1000 08/06/17 1200 Safety Interventions Isolation Precautions standard precautions maintained -- -- Infection Prevention -- barrier precautions utilized;cohorting utilized;environmental surveillance performed;equipment surfaces disinfected;personal protective equipment utilized;rest/sleep promoted;single patient room provided -- Coping Strategies Supportive Measures -- -- active listening utilized;positive reinforcement provided;problem solvingfacilitated Goal: Discharge Needs Assessment Outcome: Ongoing (Interventions Implemented as Appropriate) 08/01/17 0425 08/03/17 0559 08/04/17 1809 Discharge Needs Assessment Concerns To Be Addressed -- no discharge needs identified -- Readmission Within The Last 30 Days -- no previous admission in last 30 days -- Provider Choice List(s) Given -- no -- Equipment Needed After Discharge -- none -- Discharge Disposition -- -- still a patient Current Health Anticipated Changes Related to Illness inability to work -- -- Activity/Self Care Review of Systems Equipment Currently Used at Home -- none -- Living Environment Transportation Available family or friend will provide;car -- -- Goal: Interdisciplinary Rounds/Family Conf Outcome: Ongoing (Interventions Implemented as Appropriate) 08/05/17 1428 Interdisciplinary Rounds/Family Conf Participants nursing;patient;physician Problem: High-Risk/Critically Ill Patient (Obstetrics) Goal: Signs and Symptoms of Listed Potential Problems Will be Absent, Minimized or Managed (High-Risk/Critically Ill Patient) Signs and symptoms of listed potential problems will be absent, minimized or managed by discharge/transition of care (reference High-Risk/Critically Ill Patient (Obstetrics) CPG). Outcome: Ongoing (Interventions Implemented as Appropriate) 08/06/17 1000 High-Risk/Critically Ill OB Patient Problems Assessed (Critically Ill/High Risk ) bleeding;pain;situational response Problems Present (Critically Ill/High Risk ) none * Plan of Care - Samira Reich RN - 08/06/2017 5:25 AM EST Problem: High-Risk/Critically Ill Patient (Obstetrics) Goal: Signs and Symptoms of Listed Potential Problems Will be Absent, Minimized or Managed (High-Risk/Critically Ill Patient) Signs and symptoms of listed potential problems will be absent, minimized or managed by discharge/transition of care (reference High-Risk/Critically Ill Patient (Obstetrics) CPG). Outcome: Ongoing (Interventions Implemented as Appropriate) OUTCOME EVALUATION NOTE: OUTCOME SUMMARY: Plan of care for today reviewed with patient, including VS, medications, EFM, diet, activity and indications for delivery. Patient denies UCs, SALMERON, visual changes, N/V, epigastric pain, LOF, and VB. Patient reports +FM. Patient up ad catina to bathroom, Patient tolerating PO diet and adequate PO fluids. Patient verbalizes understanding plan of care. PLAN MOVING FORWARD: Continue current plan of care INDIVIDUALIZED FALL PREVENTION INTERVENTIONS: Patient-specific fall risk factors per assessment: [current deficits]: See flowsheet Assistance [level of assistance required for transfers and ambulation]: See flowsheet Supervision [direct monitoring required during toileting and ADLs]: No Surveillance [continuous indirect monitoring]: Purposeful rounding Patient-specific fall prevention interventions for sensory deficits provided, if applicable: [X] N/A CPG GOAL OUTCOME EVALUATION: * Plan of Care - Bridget Campbell RN - 08/05/2017 2:32 PM EST Problem: Patient Care Overview Goal: Plan of Care Review Outcome: Ongoing (Interventions Implemented as Appropriate) 08/03/17 0559 08/05/17 0929 Plan of Care Review Progress progress toward functional goals as expected -- Coping/Psychosocial Plan Of Care Reviewed With -- patient OUTCOME EVALUATION NOTE: OUTCOME SUMMARY: See doc flow. PLAN MOVING FORWARD: Continue to monitor VS, BS, NST daily, s/s of bleeding/ labor. Provide education to pt and keep pt informed. INDIVIDUALIZED FALL PREVENTION INTERVENTIONS: Patient-specific fall risk factors per assessment: [current deficits]: Independent Assistance [level of assistance required for transfers and ambulation]: Independent, call light in reach Supervision [direct monitoring required during toileting and ADLs]: Independent Surveillance [continuous indirect monitoring]: VS, BS, NST, purposeful rounding per unit protocol Patient-specific fall prevention interventions for sensory deficits provided, if applicable: CPG GOAL OUTCOME EVALUATION: Goal: Individualization & Mutuality Outcome: Ongoing (Interventions Implemented as Appropriate) 07/28/17 1700 07/31/17 0320 Individualization Patient Specific Preferences -- continue with her current diet, rest/sleep Patient Specific Goals -- stay until 34 weeks gestation, stable blood glucose Patient Specific Interventions -- AP care, VS per protocol, blood glucose monitoring as ordered, daily NST Mutuality/Individual Preferences What Anxieties, Fears or Concerns Do You Have About Your Health or Care? I'm going to miss my kidsa lot. I've never had to stay in the hospital for so long -- What Questions Do You Have About Your Health or Care? -- concerned about diet restriction What Information Would Help Us Give You More Personalized Care? keep me informed -- Goal: Fall Prevention-Safe Patient Handling Outcome: Ongoing (Interventions Implemented as Appropriate) 08/01/1742408/05/17 0929 Activity and Safety Assistive Device None -- Daily Care Interventions Self-Care Promotion -- independence encouraged Musculoskeletal Interventions Muscle Strengthening activity/mobility promoted -- Barbour Fall Risk History of Falling -- 0 Secondary Diagnosis -- 0 Ambulatory Aids -- 0 Intravenous Therapy/Heparin/Saline Lock -- 20 Gait/Transferring -- 0 Mental Status -- 0 Score -- 20 OTHER Barbour Fall Risk -- Low Restraint Interventions Safety Promotion/Fall Prevention -- nonskid shoes/slippers when out of bed;safety round/check completed Positioning Body Position -- independent Goal: Infection Control Outcome: Ongoing (Interventions Implemented as Appropriate) 08/05/17 09 Safety Interventions Isolation Precautions standard precautions maintained Infection Prevention rest/sleep promoted;single patient room provided;environmental surveillance performed Coping Strategies Supportive Measures active listening utilized;decision-making supported;verbalization of feelings encouraged;self-responsibility promoted;self-reflection promoted;self-care encouraged;relaxation techniques promoted Goal: Discharge Needs Assessment Outcome: Ongoing (Interventions Implemented as Appropriate) 08/01/1742408/03/17 0559 08/04/17 1809 Discharge Needs Assessment Concerns To Be Addressed -- no discharge needs identified -- Readmission Within The Last 30 Days -- no previous admission in last 30 days -- Provider Choice List(s) Given -- no -- Equipment Needed After Discharge -- none -- Discharge Disposition -- -- still a patient Current Health Anticipated Changes Related to Illness inability to work -- -- Activity/Self Care Review of Systems Equipment Currently Used at Home -- none -- Living Environment Transportation Available family or friend will provide;car -- -- Goal: Interdisciplinary Rounds/Family Conf Outcome: Ongoing (Interventions Implemented as Appropriate) 08/05/17 1428 Interdisciplinary Rounds/Family Conf Participants nursing;patient;physician Problem: High-Risk/Critically Ill Patient (Obstetrics) Goal: Signs and Symptoms of Listed Potential Problems Will be Absent, Minimized or Managed (High-Risk/Critically Ill Patient) Signs and symptoms of listed potential problems will be absent, minimized or managed by discharge/transition of care (reference High-Risk/Critically Ill Patient (Obstetrics) CPG). Outcome: Ongoing (Interventions Implemented as Appropriate) 08/05/17 1428 High-Risk/Critically Ill OB Patient Problems Assessed (Critically Ill/High Risk ) none Problems Present (Critically Ill/High Risk ) none * Plan of Care - Alisson Ham, RN - 08/05/2017 6:34 AM EST Problem: Patient Care Overview Goal: Plan of Care Review Outcome: Ongoing (Interventions Implemented as Appropriate) 08/03/1759 08/04/172019 Plan of Care Review Progress progress toward functional goals as expected -- Coping/Psychosocial Plan Of Care Reviewed With -- patient OUTCOME EVALUATION NOTE: OUTCOME SUMMARY: Pt had a non-eventful shift. VSS, up ad-catina, voiding spontaneously. Pt denies cramping, leaking, orbleeding. Pt states fetus is active. Betamethasone complete. Pt corporative with plan of care and agrees to call RN if needs arise. PLAN MOVING FORWARD: Continue NST daily, SCDs, blood glucose monitoring with insulin coverage if indicated and encouraging appropriate food choices with carbohydrate control diet. Encourage ambulation, water intake, and medication for bowel program since pt states she feels constipated. INDIVIDUALIZED FALL PREVENTION INTERVENTIONS: Patient-specific fall risk factors per assessment: [current deficits]: none Assistance [level of assistance required for transfers and ambulation]: none Supervision [direct monitoring required during toileting and ADLs]: independent * Plan of Care - Ariadna Marroquin RN - 08/04/2017 6:15 PM EST Problem: Patient Care Overview Goal: Plan of Care Review Outcome: Ongoing (Interventions Implemented as Appropriate) 08/03/17 0559 08/04/17 0945 Plan of Care Review Progress progress toward functional goals as expected -- Coping/Psychosocial Plan Of Care Reviewed With -- patient OUTCOME EVALUATION NOTE: OUTCOME SUMMARY: Pt reports feeling terrible today. States she feels groggy and yucky. VS remain stable. Pt ambulated in room, on and off unit. Napped a little during the day, but did eat all meals brought. BG checks are stable. She reports good movement and denies pain, contractions, leaking, and bleeding. Pt reports back pain which is chronically intermittent for her, T-pump provided. PLAN MOVING FORWARD: Will continue to monitor for signs of labor and bleeding. Educated pt on signs to watch forand when to call for help. Pt verbalized understanding and agreeable with POC. Will continue to monitor BG level in light of gDM. Goal: Fall Prevention-Safe Patient Handling Outcome: Ongoing (Interventions Implemented as Appropriate) 08/01/1742408/04/17944 Activity and Safety Assistive Device None -- Daily Care Interventions Self-Care Promotion -- independence encouraged Musculoskeletal Interventions Muscle Strengthening activity/mobility promoted -- Babrour Fall Risk History of Falling -- 0 Secondary Diagnosis -- 0 Ambulatory Aids -- 0 Intravenous Therapy/Heparin/Saline Lock -- 0 Gait/Transferring -- 0 Mental Status -- 0 Score -- 0 OTHER Barbour Fall Risk -- Low Restraint Interventions Safety Promotion/Fall Prevention -- nonskid shoes/slippers when out of bed;safety round/check completed Positioning Body Position -- independent Goal: Infection Control Outcome: Ongoing (Interventions Implemented as Appropriate) 08/04/1786 Safety Interventions Isolation Precautions standard precautions maintained Infection Prevention single patient room provided;rest/sleep promoted Coping Strategies Supportive Measures active listening utilized;decision-making supported;self- care encouraged Goal: Discharge Needs Assessment Outcome: Ongoing (Interventions Implemented as Appropriate) 08/01/1742408/03/17 0559 08/04/17 1800 Discharge Needs Assessment Concerns To Be Addressed -- no discharge needs identified -- Readmission Within The Last 30 Days -- no previous admission in last 30 days -- Provider Choice List(s) Given -- no -- Equipment Needed After Discharge -- none -- Discharge Disposition -- -- still a patient Current Health Anticipated Changes Related to Illness inability to work -- -- Activity/Self Care Review of Systems Equipment Currently Used at Home -- none -- Living Environment Transportation Available family or friend will provide;car -- -- Problem: High-Risk/Critically Ill Patient (Obstetrics) Goal: Signs and Symptoms of Listed Potential Problems Will be Absent, Minimized or Managed (High-Risk/Critically Ill Patient) Signs and symptoms of listed potential problems will be absent, minimized or managed by discharge/transition of care (reference High-Risk/Critically Ill Patient (Obstetrics) CPG). Outcome: Ongoing (Interventions Implemented as Appropriate) 08/04/17 0945 High-Risk/Critically Ill OB Patient Problems Assessed (Critically Ill/High Risk ) bleeding;infection;pain;premature rupture ofmembranes; labor;situational response Problems Present (Critically Ill/High Risk ) none * Plan of Care - Ariadna Marroquin RN - 08/03/2017 4:25 PM EST Problem: High-Risk/Critically Ill Patient (Obstetrics) Goal: Signs and Symptoms of Listed Potential Problems Will be Absent, Minimized or Managed (High-Risk/Critically Ill Patient) Signs and symptoms of listed potential problems will be absent, minimized or managed by discharge/transition of care (reference High-Risk/Critically Ill Patient (Obstetrics) CPG). OUTCOME EVALUATION NOTE: OUTCOME SUMMARY: Pt remains up ad catina and ambulating within unit. Has reported no contractions, bleeding, leaking, or pain. Pt knows signs and symptoms to watch for and when to call for help. Pt reports feeling constipated, PRN miralax and colace given. VS and BG stable this shift. PLAN MOVING FORWARD: Pt remains bleed-free and free from complications of gestational diabetes. Will continue to monitor * Plan of Care - Belkis Strong RN - 08/03/2017 6:05 AM EST Problem: Patient Care Overview Goal: Plan of Care Review Outcome: Ongoing (Interventions Implemented as Appropriate) 08/03/17 0559 Plan of Care Review Progress progress toward functional goals as expected Coping/Psychosocial Plan Of Care Reviewed With patient OUTCOME EVALUATION NOTE: OUTCOME SUMMARY: VSS. Assessment as documented. See note re: constipation and plan to proceed with miralax BID untilpt has a bowel movement. PLAN MOVING FORWARD: Continue towards remain . INDIVIDUALIZED FALL PREVENTION INTERVENTIONS: Patient-specific fall risk factors per assessment: [current deficits]: none Assistance [level of assistance required for transfers and ambulation]: independent Supervision [direct monitoring required during toileting and ADLs]: none Surveillance [continuous indirect monitoring]: purposeful rounding Patient-specific fall prevention interventions for sensory deficits provided, if applicable: none [facility] GOAL OUTCOME EVALUATION: Goal: Fall Prevention-Safe Patient Handling Outcome: Ongoing (Interventions Implemented as Appropriate) 08/01/1742408/02/1779908/02/17 1833 Activity and Safety Assistive Device None -- -- Daily Care Interventions Self-Care Promotion -- independence encouraged;BADL personal routines maintained;BADL personal objects within reach -- Musculoskeletal Interventions Muscle Strengthening activity/mobility promoted -- -- Barbour Fall Risk History of Falling -- 0 -- Secondary Diagnosis -- 0 -- Ambulatory Aids -- 0 -- Intravenous Therapy/Heparin/Saline Lock -- 20 -- Gait/Transferring -- 0 -- Mental Status -- 0 -- Score -- 20 -- OTHER Barbour Fall Risk -- Low -- Restraint Interventions Safety Promotion/Fall Prevention -- -- safety round/check completed Positioning Body Position -- independent -- Goal: Infection Control Outcome: Ongoing (Interventions Implemented as Appropriate) 08/02/17 08 Safety Interventions Isolation Precautions standard precautions maintained Infection Prevention single patient room provided;rest/sleep promoted Coping Strategies Supportive Measures active listening utilized;goal setting facilitated;relaxation techniques promoted;self-care encouraged;self-reflection promoted;self-responsibility promoted;verbalization of feelings encouraged Goal: Discharge Needs Assessment Outcome: Ongoing (Interventions Implemented as Appropriate) 08/01/1742408/03/17 0559 Discharge Needs Assessment Concerns To Be Addressed -- no discharge needs identified Readmission Within The Last 30 Days -- no previous admission in last 30 days Provider Choice List(s) Given -- no Equipment Needed After Discharge -- none Discharge Disposition still a patient -- Activity/Self Care Review of Systems Equipment Currently Used at Home -- none Living Environment Transportation Available family or friend will provide;car -- Problem: High-Risk/Critically Ill Patient (Obstetrics) Goal: Signs and Symptoms of Listed Potential Problems Will be Absent, Minimized or Managed (High-Risk/Critically Ill Patient) Signs and symptoms of listed potential problems will be absent, minimized or managed by discharge/transition of care (reference High-Risk/Critically Ill Patient (Obstetrics) [facility]). Outcome: Ongoing (Interventions Implemented as Appropriate) 08/03/17 0559 High-Risk/Critically Ill OB Patient Problems Assessed (Critically Ill/High Risk ) premature rupture of membranes; labor;bleeding Problems Present (Critically Ill/High Risk ) none * Plan of Care - Belkis Strong RN - 08/02/2017 5:37 AM EST Problem: Patient Care Overview Goal: Plan of Care Review Outcome: Ongoing (Interventions Implemented as Appropriate) 08/01/1742408/01/172152 Plan of Care Review Progress progress toward functional goals as expected -- Coping/Psychosocial Plan Of Care Reviewed With -- patient OUTCOME EVALUATION NOTE: OUTCOME SUMMARY: VSS. Assessment as documented. PLAN MOVING FORWARD: Continue to monitor for vaginal bleeding. INDIVIDUALIZED FALL PREVENTION INTERVENTIONS: Patient-specific fall risk factors per assessment: [current deficits]: none Assistance [level of assistance required for transfers and ambulation]: independent Supervision [direct monitoring required during toileting and ADLs]: none Surveillance [continuous indirect monitoring]: purposeful rounding Patient-specific fall prevention interventions for sensory deficits provided, if applicable: none [facility] GOAL OUTCOME EVALUATION: Goal: Individualization & Mutuality Outcome: Ongoing (Interventions Implemented as Appropriate) 07/28/17 17007/31/17 0320 Individualization Patient Specific Preferences -- continue with her current diet, rest/sleep Patient Specific Goals -- stay until 34 weeks gestation, stable blood glucose Patient Specific Interventions -- AP care, VS per protocol, blood glucose monitoring as ordered, daily NST Mutuality/Individual Preferences What Anxieties, Fears or Concerns Do You Have About Your Health or Care? I'm going to miss my kidsa lot. I've never had to stay in the hospital for so long -- What Questions Do You Have About Your Health or Care? -- concerned about diet restriction What Information Would Help Us Give You More Personalized Care? keep me informed -- Goal: Fall Prevention-Safe Patient Handling Outcome: Ongoing (Interventions Implemented as Appropriate) 08/01/1742408/01/172152 Activity and Safety Assistive Device None -- Daily Care Interventions Self-Care Promotion -- independence encouraged;BADL personal objects within reach;BADL personal routines maintained Musculoskeletal Interventions Muscle Strengthening activity/mobility promoted -- Barbour Fall Risk History of Falling -- 0 Secondary Diagnosis -- 0 Ambulatory Aids -- 0 Intravenous Therapy/Heparin/Saline Lock -- 20 Gait/Transferring -- 0 Mental Status -- 0 Score -- 20 OTHER Barbour Fall Risk -- Low Restraint Interventions Safety Promotion/Fall Prevention -- safety round/check completed Positioning Body Position -- independent Goal: Infection Control Outcome: Ongoing (Interventions Implemented as Appropriate) 08/01/172152 Safety Interventions Isolation Precautions standard precautions maintained Infection Prevention rest/sleep promoted;visitors restricted/screened;environmental surveillance performed Coping Strategies Supportive Measures active listening utilized;decision-making supported;goal setting facilitated;positive reinforcement provided;problem solving facilitated;relaxation techniques promoted;self-care encouraged;self-reflection promoted;self-responsibility promoted;verbalization of feelings encouraged Goal: Discharge Needs Assessment Outcome: Ongoing (Interventions Implemented as Appropriate) 08/01/17 0425 08/02/17 0534 Discharge Needs Assessment Concerns To Be Addressed -- no discharge needs identified Readmission Within The Last 30 Days -- no previous admission in last 30 days Provider Choice List(s) Given -- no Equipment Needed After Discharge none -- Discharge Disposition still a patient -- Current Health Anticipated Changes Related to Illness inability to work -- Activity/Self Care Review of Systems Equipment Currently Used at Home none -- Living Environment Transportation Available family or friend will provide;car -- Problem: High-Risk/Critically Ill Patient (Obstetrics) Goal: Signs and Symptoms of Listed Potential Problems Will be Absent, Minimized or Managed (High-Risk/Critically Ill Patient) Signs and symptoms of listed potential problems will be absent, minimized or managed by discharge/transition of care (reference High-Risk/Critically Ill Patient (Obstetrics) [facility]). Outcome: Ongoing (Interventions Implemented as Appropriate) 08/02/17 0534 High-Risk/Critically Ill OB Patient Problems Assessed (Critically Ill/High Risk ) bleeding;pain;premature rupture of membranes;infection; labor Problems Present (Critically Ill/High Risk ) none * Plan of Care - Shahla Leonard RN - 08/01/2017 6:35 PM EST Problem: Patient Care Overview Goal: Plan of Care Review Outcome: Ongoing (Interventions Implemented as Appropriate) 08/01/17424 Plan of Care Review Progress progress toward functional goals as expected Coping/Psychosocial Plan Of Care Reviewed With patient OUTCOME EVALUATION NOTE: OUTCOME SUMMARY: Pt doing well today. VSS, BS have not requiring any additional coverage. Pt reports good FM, deniesSROM, VB, ctx. Reactive NST PLAN MOVING FORWARD: Continue to monitor per orders, continue to monitor for bleeding, adequate glucose control andoptimize maternal and wellbeing. INDIVIDUALIZED FALL PREVENTION INTERVENTIONS: Patient-specific fall risk factors per assessment: [current deficits]: See Fall Risk Assessment Assistance [level of assistance required for transfers and ambulation]: Independent Supervision [direct monitoring required during toileting and ADLs]: Independent Surveillance [continuous indirect monitoring]: Independent * Plan of Care - Daisy Mike RN - 08/01/2017 4:28 AM EST Problem: Patient Care Overview Goal: Plan of Care Review Outcome: Ongoing (Interventions Implemented as Appropriate) 08/01/17424 Plan of Care Review Progress progress toward functional goals as expected Coping/Psychosocial Plan Of Care Reviewed With patient OUTCOME EVALUATION NOTE: OUTCOME SUMMARY: Pt remains , VS stable, no complaints this shift. Blood glucose monitoringas ordered. See care plan goal summaries & comprehensive report for maternal & status. PLAN MOVING FORWARD: Continue care as directed in [facility] care plans. INDIVIDUALIZED FALL PREVENTION: Assistance: None, pt independent Supervision: Remind pt to call for assistance when needed, call light within reach Surveillance: Purposeful rounding [facility] OUTCOME EVALUATION: Goal: Individualization & Mutuality Outcome: Ongoing (Interventions Implemented as Appropriate) 07/28/17 1700 07/31/17 0320 Individualization Patient Specific Preferences -- continue with her current diet, rest/sleep Patient Specific Goals -- stay until 34 weeks gestation, stable blood glucose Patient Specific Interventions -- AP care, VS per protocol, blood glucose monitoring as ordered, daily NST Mutuality/Individual Preferences What Anxieties, Fears or Concerns Do You Have About Your Health or Care? I'm going to miss my kidsa lot. I've never had to stay in the hospital for so long -- What Questions Do You Have About Your Health or Care? -- concerned about diet restriction What Information Would Help Us Give You More Personalized Care? keep me informed -- Goal: Fall Prevention-Safe Patient Handling Outcome: Ongoing (Interventions Implemented as Appropriate) 07/31/17213408/01/17424 Activity and Safety Assistive Device -- None Daily Care Interventions Self-Care Promotion independence encouraged;BADL personal objects within reach;BADL personal routines maintained -- Musculoskeletal Interventions Muscle Strengthening -- activity/mobility promoted Barbour Fall Risk History of Falling 0 -- Secondary Diagnosis 15 -- Ambulatory Aids 0 -- Intravenous Therapy/Heparin/Saline Lock 20 -- Gait/Transferring 0 -- Mental Status 0 -- Score 35 -- OTHER Barbour Fall Risk Med -- Restraint Interventions Safety Promotion/Fall Prevention fall prevention program maintained;nonskid shoes/slippers when outof bed -- Positioning Body Position independent -- Goal: Infection Control Outcome: Ongoing (Interventions Implemented as Appropriate) 07/31/172134 Safety Interventions Isolation Precautions standard precautions maintained Infection Prevention environmental surveillance performed;rest/sleep promoted Coping Strategies Supportive Measures decision-making supported;goal setting facilitated;positive reinforcement provided;verbalization of feelings encouraged Goal: Discharge Needs Assessment Outcome: Ongoing (Interventions Implemented as Appropriate) 08/01/17424 Discharge Needs Assessment Concerns To Be Addressed no discharge needs identified Readmission Within The Last 30 Days no previous admission in last 30 days Equipment Needed After Discharge none Discharge Disposition still a patient Current Health Anticipated Changes Related to Illness inability to work Activity/Self Care Review of Systems Equipment Currently Used at Home none Living Environment Transportation Available family or friend will provide;car Goal: Interdisciplinary Rounds/Family Conf Outcome: Ongoing (Interventions Implemented as Appropriate) 08/01/17424 Interdisciplinary Rounds/Family Conf Participants nursing;patient Problem: High-Risk/Critically Ill Patient (Obstetrics) Goal: Signs and Symptoms of Listed Potential Problems Will be Absent, Minimized or Managed (High-Risk/Critically Ill Patient) Signs and symptoms of listed potential problems will be absent, minimized or managed by discharge/transition of care (reference High-Risk/Critically Ill Patient (Obstetrics) [facility]). Outcome: Ongoing (Interventions Implemented as Appropriate) 07/31/172134 High-Risk/Critically Ill OB Patient Problems Assessed (Critically Ill/High Risk ) bleeding;pain;premature rupture of membranes; labor Problems Present (Critically Ill/High Risk ) none * Plan of Care - Shahla Leoanrd RN - 07/31/2017 5:51 PM EST Problem: Patient Care Overview Goal: Plan of Care Review Outcome: Ongoing (Interventions Implemented as Appropriate) 07/30/17211307/31/17 0320 Plan of Care Review Progress -- progress toward functional goals as expected Coping/Psychosocial Plan Of Care Reviewed With patient -- OUTCOME EVALUATION NOTE: OUTCOME SUMMARY: Pt doing well today. VSS, BS have been between 89-152, not requiring any additional coverage. Pt reports good FM, denies SROM, VB, ctx. Reactive NST PLAN MOVING FORWARD: Continue to monitor per orders, continue to monitor for bleeding, adequate glucose control andoptimize maternal and wellbeing. INDIVIDUALIZED FALL PREVENTION INTERVENTIONS: Patient-specific fall risk factors per assessment: [current deficits]: See Fall Risk Assessment Assistance [level of assistance required for transfers and ambulation]: Independent Supervision [direct monitoring required during toileting and ADLs]: Independent Surveillance [continuous indirect monitoring]: Independent * Plan of Care - Daisy Mike RN - 07/31/2017 3:26 AM EST Problem: Patient Care Overview Goal: Plan of Care Review Outcome: Ongoing (Interventions Implemented as Appropriate) 07/30/17211307/31/17 0320 Plan of Care Review Progress -- progress toward functional goals as expected Coping/Psychosocial Plan Of Care Reviewed With patient -- OUTCOME EVALUATION NOTE: OUTCOME SUMMARY: Pt remains , VS stable with some low blood pressures occasionally which ptclaims to be normal for her, no complaints this shift. See care plan goal summaries & comprehensive report for maternal & status. PLAN MOVING FORWARD: Continue care as directed in [facility] care plans. INDIVIDUALIZED FALL PREVENTION: Assistance: None, pt independent Supervision: Remind pt to call for assistance when needed, call light within reach Surveillance: Purposeful rounding [facility] OUTCOME EVALUATION: Goal: Individualization & Mutuality Outcome: Ongoing (Interventions Implemented as Appropriate) 07/28/17 17007/31/17 0320 Individualization Patient Specific Preferences -- continue with her current diet, rest/sleep Patient Specific Goals -- stay until 34 weeks gestation, stable blood glucose Patient Specific Interventions -- AP care, VS per protocol, blood glucose monitoring as ordered, daily NST Mutuality/Individual Preferences What Anxieties, Fears or Concerns Do You Have About Your Health or Care? I'm going to miss my kidsa lot. I've never had to stay in the hospital for so long -- What Questions Do You Have About Your Health or Care? -- concerned about diet restriction What Information Would Help Us Give You More Personalized Care? keep me informed -- Goal: Fall Prevention-Safe Patient Handling Outcome: Ongoing (Interventions Implemented as Appropriate) 07/30/17211307/31/17319 Activity and Safety Assistive Device -- None Daily Care Interventions Self-Care Promotion independence encouraged;BADL personal objects within reach;BADL personal routines maintained -- Musculoskeletal Interventions Muscle Strengthening -- activity/mobility promoted Barbour Fall Risk History of Falling 0 -- Secondary Diagnosis 0 -- Ambulatory Aids 0 -- Intravenous Therapy/Heparin/Saline Lock 20 -- Gait/Transferring 0 -- Mental Status 0 -- Score 20 -- OTHER Barbour Fall Risk Low -- Restraint Interventions Safety Promotion/Fall Prevention fall prevention program maintained;nonskid shoes/slippers when outof bed -- Positioning Body Position independent -- Goal: Infection Control Outcome: Ongoing (Interventions Implemented as Appropriate) 07/30/172113 Safety Interventions Isolation Precautions standard precautions maintained Infection Prevention environmental surveillance performed;rest/sleep promoted Coping Strategies Supportive Measures active listening utilized;goal setting facilitated;positive reinforcement provided;verbalization of feelings encouraged Goal: Discharge Needs Assessment Outcome: Ongoing (Interventions Implemented as Appropriate) 07/31/17319 Discharge Needs Assessment Concerns To Be Addressed no discharge needs identified Readmission Within The Last 30 Days no previous admission in last 30 days Equipment Needed After Discharge none Discharge Disposition still a patient Current Health Anticipated Changes Related to Illness none Activity/Self Care Review of Systems Equipment Currently Used at Home none Living Environment Transportation Available family or friend will provide;car Goal: Interdisciplinary Rounds/Family Conf Outcome: Ongoing (Interventions Implemented as Appropriate) 07/31/17319 Interdisciplinary Rounds/Family Conf Participants nursing;patient Problem: High-Risk/Critically Ill Patient (Obstetrics) Goal: Signs and Symptoms of Listed Potential Problems Will be Absent, Minimized or Managed (High-Risk/Critically Ill Patient) Signs and symptoms of listed potential problems will be absent, minimized or managed by discharge/transition of care (reference High-Risk/Critically Ill Patient (Obstetrics) [facility]). Outcome: Ongoing (Interventions Implemented as Appropriate) 07/30/174 High-Risk/Critically Ill OB Patient Problems Assessed (Critically Ill/High Risk ) bleeding;pain;premature rupture of membranes; labor Problems Present (Critically Ill/High Risk ) none * Plan of Care - Gayle Trammell RN - 07/30/2017 6:59 PM EST Problem: Patient Care Overview Goal: Plan of Care Review Outcome: Ongoing (Interventions Implemented as Appropriate) 07/30/17 0807/30/171851 Plan of Care Review Progress -- progress toward functional goals as expected Coping/Psychosocial Plan Of Care Reviewed With patient -- OUTCOME EVALUATION NOTE: OUTCOME SUMMARY: VSS throughout shift. Patient denies bleeding, leaking of fluid and contractions. Patient endorses positive movement. See PCS for more information PLAN MOVING FORWARD: Continue to monitor and maternal wellbeing. INDIVIDUALIZED FALL PREVENTION INTERVENTIONS: Patient-specific fall risk factors per assessment: [current deficits]: IV-Access Assistance [level of assistance required for transfers and ambulation]: Independent Supervision [direct monitoring required during toileting and ADLs]: None Surveillance [continuous indirect monitoring]: Purposeful rounding Patient-specific fall prevention interventions for sensory deficits provided, if applicable: [facility] GOAL OUTCOME EVALUATION: Goal: Individualization & Mutuality Outcome: Ongoing (Interventions Implemented as Appropriate) 07/28/17 17007/30/171851 Individualization Patient Specific Preferences -- To continue her current diet. Mutuality/Individual Preferences What Anxieties, Fears or Concerns Do You Have About Your Health or Care? I'm going to miss my kidsa lot. I've never had to stay in the hospital for so long -- What Questions Do You Have About Your Health or Care? -- Concern about going on a gestational diet If I have to I will have people just bring me regular food, I will not follow it What Information Would Help Us Give You More Personalized Care? keep me informed -- Goal: Fall Prevention-Safe Patient Handling Outcome: Ongoing (Interventions Implemented as Appropriate) 07/30/1782907/30/171851 Activity and Safety Assistive Device -- None Daily Care Interventions Self-Care Promotion -- independence encouraged;BADL personal objects within reach;BADL personal routines maintained Barbour Fall Risk History of Falling 0 -- Secondary Diagnosis 0 -- Ambulatory Aids 0 -- Intravenous Therapy/Heparin/Saline Lock 20 -- Gait/Transferring 0 -- Mental Status 0 -- Score 20 -- OTHER Barbour Fall Risk Low -- Restraint Interventions Safety Promotion/Fall Prevention safety round/check completed;nonskid shoes/slippers when out of bed -- Positioning Body Position independent -- Goal: Infection Control Outcome: Ongoing (Interventions Implemented as Appropriate) 07/30/17829 Safety Interventions Isolation Precautions standard precautions maintained Infection Prevention single patient room provided;rest/sleep promoted;environmental surveillance performed Coping Strategies Supportive Measures active listening utilized;decision-making supported;verbalization of feelings encouraged;self-responsibility promoted;self-care encouraged;relaxation techniques promoted Goal: Discharge Needs Assessment Outcome: Ongoing (Interventions Implemented as Appropriate) 07/30/171851 Discharge Needs Assessment Concerns To Be Addressed no discharge needs identified Readmission Within The Last 30 Days no previous admission in last 30 days Equipment Needed After Discharge none Discharge Disposition still a patient Current Health Anticipated Changes Related to Illness none Activity/Self Care Review of Systems Equipment Currently Used at Home none Living Environment Transportation Available car;family or friend will provide Goal: Interdisciplinary Rounds/Family Conf Outcome: Ongoing (Interventions Implemented as Appropriate) 07/29/17 1744 Interdisciplinary Rounds/Family Conf Participants patient;nursing;social work/services;physician Problem: High-Risk/Critically Ill Patient (Obstetrics) Goal: Signs and Symptoms of Listed Potential Problems Will be Absent, Minimized or Managed (High-Risk/Critically Ill Patient) Signs and symptoms of listed potential problems will be absent, minimized or managed by discharge/transition of care (reference High-Risk/Critically Ill Patient (Obstetrics) [facility]). Outcome: Ongoing (Interventions Implemented as Appropriate) 07/30/17 08 High-Risk/Critically Ill OB Patient Problems Assessed (Critically Ill/High Risk ) bleeding;pain;premature rupture of membranes; labor;situational response Problems Present (Critically Ill/High Risk ) none * Initial Assessments - Stephanie Moseley HUMAN RESOURCES PSYCHOLOGIST - 07/30/2017 8:29 AM EST Office of Care Management Initial Assessment DIEGO Walker reviewed record and discussed patient with Care Team. Source of Information: patient Introduced self/reviewed role; services accepted. Reason for Hospitalization: Reason for Admission as Stated by Patient: I have vasa-previa Past Medical History: Diagnosis Date ??? Asthma ??? Diabetes mellitus gestational diabetes insulin controlled and diet Hospitalizations Within the Past 30 Days: n/a Anticipated Length Of Stay (If known): Expected Length of Hospitalization: 7 wks Current Decision-Making Capacity: full Advance Care Planning: n/a Current Coping/Education/Information Needs: Pt states she is doing okay but is still upset about having to remain in the hospital for so long. She is unhappy with not being able to see her children as much as usual and she and her partner are currently estranged. She reports that she isn't sure if he will be involved in the baby's life and that he has not been very nice to her. She also reports that there was infidelity on his part within the relationship. She expressed that it does not seem like a healthy relationship to her, but states that they are trying to work on things and hopes he will be helpful with the baby. HUMAN RESOURCES PSYCHOLOGIST also educated pt on what to expect if her baby is admitted to the [facility] [place]. HUMAN RESOURCES PSYCHOLOGIST went over [facility], activity cart, massage/Reiki services, lack of privacy in [facility] [place], andfamily rounds she can be involved in. Pt states that she has a car seat but no pack and play/crib. FOB may help with this, but this may be something she will need assistance with as d/c becomes closer. She would also like VNA and breast pump. Current Functional Ability: antepartum Functional Status Prior to Admission: full Home Environment: Pt lives at home with her two children, 9 y/o SO and 6 y/o DA. She is currently unemployed but enrolled in food stamps and on [place] Medicaid. Social & Family Supports/Community Resources: Pt states that her ex- and his GF are verysupportive of herself and her children. She describes GF as like a sister. Ex- is the father of her second child, but not the first. However, he and his GF love and take care of both children as their own. Children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 Basophils % 0.3 % [facility] Basophils Abs 0.0 0.0 - 0.1 x10(3)/[facility] LABORATORY Immature Gran % 0.60 % [facility] Comment: Immature granulocytes(IG's)percentage and absolute count will include metamyelocytes, myelocytes, and promyelocytes. Blood smears from CBCs yielding IG's will be scanned manually for concordance. If this scan disagrees with the automated IG or if promyelocytes are noted, a manual differential will be performed. Josie Gran Abs 0.05(H) 0.00 - 0.04 x10(3)/[facility] LABORATORY Blood specimen (specimen) 09/13/2017 6:25 AM EST 09/13/2017 6:40 AM EST Narrative Resulting Agency Comment Spec In Lab Yeny Waterman MD HEMATOLOGY ORDERABLE S [facility] [place] [address] * (ABNORMAL) Hemogram (09/13/2017 6:25 AM EST) WBC 8.8 4.0 - 9.5 x10(3)/[facility] LAB[facility] RBC 2.43(L) 4.00 - 5.21 x10(6)/[facility] LAB[facility] Hemoglobin 7.1(L) 11.7 - 15.5 gm/dL [facility] Hematocrit 20.9(L) 35.7 - 45.8 % [facility] MCV 86.0 82.6 - 94.4 fL [facility] MCH 29.2 27.1 - 32.0 pg [facility] MCHC 34.0 31.7 - 35.0 gm/dL [facility] Platelets 187 145 - 357 x10(3)/[facility] LABORATORY RDWSD 41.3 37.0 - 46.0 [facility] LABORATORY RDWCV 13.4 11.5 - 14.1 % [facility] MPV 8.3 7.6 - 12.9 [facility] LABORATORY nRBC % Auto 0.0 % [facility] nRBC Abs Auto 0.000 0.000 - 0.000 x10(3)/[facility] LAB[facility] Blood specimen (specimen) 09/13/2017 6:25 AM EST 09/13/2017 6:40 AM EST Narrative Resulting Agency Comment Spec In Lab Yeny Waterman MD HEMATOLOGY ORDERABLE S [facility] [place] [address] * (ABNORMAL) Basic Metabolic Panel (non-fasting) (09/13/2017 6:25 AM EST) Glucose Lvl 94 65 - 199 mg/dL [facility] Comment:Diabetes: >=200 mg/d L plus symptoms BUN 7(L) 8 - 18 mg/dL [facility] Creatinine 0.65(L) 0.70 - 1.20 mg/dL [facility] Sodium 137 135 - 145 mmol/L [facility] Potassium 3.7 3.5 - 5.0 mmol/L [facility] Comment: Please note: ??Patients with WBC >100,000 may have falsely elevated Potassium levels. ??For accurate Potassium quantification in these patients send serum separator tube (gold top) for subsequent determinations. ??Contact the Clinical Chemistry Laboratory if there are any questions. Chloride 99 98 - 107 mmol/L [facility] CO2 24 22 - 31 mmol/L [facility] Anion Gap 14 5 - 15 mmol/L [facility] Calcium 8.4(L) 8.5 - 10.5 mg/dL [facility] Estimated GFR >60 >=60 [facility] Comment: The reported eGFR should be multiplied by 1.2 for patients. The MDRD is not an appropriate measure of renal function for patients with body mass extremes or in patients with acute kidney failure. [employer]://[employer]/DHnkdep http://[employer]/DHMCnkf Blood specimen (specimen) 09/13/2017 6:25 AM EST 09/13/2017 6:40 AM EST Narrative Resulting Agency Comment Spec In Lab Yeny Waterman MD CHEMISTRY ORDERABLES Performing Organization Address City/State/[facility] Co de Phone Number [facility] [place] [address] * (ABNORMAL) Differential, Automated (09/12/2017 6:10 AM EST) Neutrophils % 66.0 % [facility] Neutr Abs (ANC) 5.44 1.70 - 6.10 x10(3)/mc L [facility] Lymphocytes % 23.3 % [facility] Lymphocytes Abs 1.9 0.9 - 3.2 x10(3)/mc L [facility] Monocytes % 9.7 % [facility] Monocyte Abs 0.8 0.3 - 0.9 x10(3)/mc L [facility] Eosinophils % 0.2 % [facility] Eosinophils Abs 0.0 0.0 - 0.4 x10(3)/mc L [facility] Basophils % 0.2 % [facility] Basophils Abs 0.0 0.0 - 0.1 x10(3)/mc L [facility] Immature Gran % 0.60 % [facility] Comment: Immature granulocytes(IG's)percentage and absolute count will include metamyelocytes, myelocytes, and promyelocytes. Blood smears from CBCs yielding IG's will be scanned manually for concordance. If this scan disagrees with the automated IG or if promyelocytes are noted, a manual differential will be performed. Josie Gran Abs 0.05(H) 0.00 - 0.04 x10(3)/mc L [facility] Blood specimen (specimen) 09/12/2017 6:10 AM EST 09/12/2017 6:21 AM EST Narrative Resulting Agency Comment Spec In Lab Yeny Waterman MD HEMATOLOGY ORDERABLE S [facility] [place] [address] * (ABNORMAL) Hemogram (09/12/2017 6:10 AM EST) WBC 8.2 4.0 - 9.5 x10(3)/[facility] LAB[facility] RBC 2.62(L) 4.00 - 5.21 x10(6)/[facility] LAB[facility] Hemoglobin 7.6(L) 11.7 - 15.5 gm/dL [facility] Comment: This result has been called to EMERITA CADENA by Gail Ramires on 09 12 2017 at 0635, and has been read back. Hematocrit 22.1(L) 35.7 - 45.8 % [facility] MCV 84.4 82.6 - 94.4 fL [facility] MCH 29.0 27.1 - 32.0 pg [facility] MCHC 34.4 31.7 - 35.0 gm/dL [facility] Platelets 190 145 - 357 x10(3)/[facility] LABORATORY RDWSD 40.1 37.0 - 46.0 [facility] RDWCV 13.2 11.5 - 14.1 % [facility] MPV 8.5 7.6 - 12.9 [facility] LABORATORY nRBC % Auto 0.0 % [facility] nRBC Abs Auto 0.000 0.000 - 0.000 x10(3)/mcL [facility] Blood specimen (specimen) 09/12/2017 6:10 AM EST 09/12/2017 6:21 AM EST Narrative Resulting Agency Comment Spec In Lab Yeny Waterman MD HEMATOLOGY ORDERABLE S [facility] [place] [address] * (ABNORMAL) Basic Metabolic Panel (non-fasting) (09/12/2017 6:10 AM EST) Glucose Lvl 87 65 - 199 mg/dL [facility] Comment:Diabetes: >=200 mg/d L plus symptoms BUN 5(L) 8 - 18 mg/dL [facility] Creatinine 0.57(L) 0.70 - 1.20 mg/dL [facility] Sodium 135 135 - 145 mmol/L [facility] Potassium 4.3 3.5 - 5.0 mmol/L [facility] Comment: Please note: ??Patients with WBC >100,000 may have falsely elevated Potassium levels. ??For accurate Potassium quantification in these patients send serum separator tube (gold top) for subsequent determinations. ??Contact the Clinical Chemistry Laboratory if there are any questions. Chloride 99 98 - 107 mmol/L [facility] CO2 24 22 - 31 mmol/L [facility] Anion Gap 12 5 - 15 mmol/L [facility] Calcium 7.8(L) 8.5 - 10.5 mg/dL [facility] Estimated GFR >60 >=60 [facility] Comment: The reported eGFR should be multiplied by 1.2 for patients. The MDRD is not an appropriate measure of renal function for patients with body mass extremes or in patients with acute kidney failure. http://[employer]/DHnkdep http://[employer]/DHMCnkf Blood specimen (specimen) 09/12/2017 6:10 AM EST 09/12/2017 6:21 AM EST Narrative Resulting Agency Comment Spec In Lab Yeny Waterman MD CHEMISTRY ORDERABLES Performing Organization Address [facility] Co de Phone Number [facility] [place] [address] * (ABNORMAL) Magnesium (09/12/2017 6:10 AM EST) Magnesium 0.63(L) 0.69 - 1.07 mmol/L [facility] Blood specimen (specimen) 09/12/2017 6:10 AM EST 09/12/2017 6:21 AM EST Narrative Resulting Agency Comment Spec In Lab Yeny Waterman MD CHEMISTRY ORDERABLES Performing Organization Address [facility] Co de Phone Number [facility] [place] [address] * Specimen to Pathology (09/11/2017 4:04 PM EST) AP Specimen 09/11/2017 4:04 PM EST 09/11/2017 4:04 PM EST Narrative [facility] - 09/11/2017 4:04 PM EST Specimen requisition ordered. ??Separate Pathology report to follow Yeny Waterman MD PATHOLOGY/CYTOLOGY O RDERABLES Performing Organization Address [facility] Co de Phone Number [facility] [place] [address] * (ABNORMAL) Differential, Automated (09/11/2017 2:57 PM EST) Neutrophils % 86.4 % [facility] Neutr Abs (ANC) 11.87(H) 1.70 - 6.10 x10(3)/mc L [facility] Lymphocytes % 8.5 % [facility] Lymphocytes Abs 1.2 0.9 - 3.2 x10(3)/mc L [facility] Monocytes % 4.4 % [facility] Monocyte Abs 0.6 0.3 - 0.9 x10(3)/[facility] LABORATORY Eosinophils % 0.0 % [facility] Eosinophils Abs 0.0 0.0 - 0.4 x10(3)/[facility] LABORATORY Basophils % 0.1 % [facility] Basophils Abs 0.0 0.0 - 0.1 x10(3)/[facility] LABORATORY Immature Gran % 0.60 % [facility] Comment: Immature granulocytes(IG's)percentage and absolute count will include metamyelocytes, myelocytes, and promyelocytes. Blood smears from CBCs yielding IG's will be scanned manually for concordance. If this scan disagrees with the automated IG or if promyelocytes are noted, a manual differential will be performed. Josie Gran Abs 0.08(H) 0.00 - 0.04 x10(3)/[facility] LABORATORY Blood specimen (specimen) 09/11/2017 2:57 PM EST 09/11/2017 3:03 PM EST Narrative Resulting Agency Comment Spec In Lab Yeny Waterman MD HEMATOLOGY ORDERABLE S [facility] [place] [address] * (ABNORMAL) Hemogram (09/11/2017 2:57 PM EST) WBC 13.8(H) 4.0 - 9.5 x10(3)/[facility] LABORATORY RBC 3.44(L) 4.00 - 5.21 x10(6)/[facility] LABORATORY Hemoglobin 10.3(L) 11.7 - 15.5 gm/dL [facility] Hematocrit 29.0(L) 35.7 - 45.8 % [facility] MCV 84.3 82.6 - 94.4 fL [facility] MCH 29.9 27.1 - 32.0 pg [facility] MCHC 35.5(H) 31.7 - 35.0 gm/dL [facility] Platelets 218 145 - 357 x10(3)/[facility] LABORATORY RDWSD 38.5 37.0 - 46.0 [facility] LABORATORY RDWCV 12.8 11.5 - 14.1 % [facility] MPV 8.7 7.6 - 12.9 [facility] LABORATORY nRBC % Auto 0.0 % [facility] nRBC Abs Auto 0.000 0.000 - 0.000 x10(3)/[facility] LABORATORY Blood specimen (specimen) 09/11/2017 2:57 PM EST 09/11/2017 3:03 PM EST Narrative Resulting Agency Comment Spec In Lab Yeny Waterman MD HEMATOLOGY ORDERABLE S Performing Organization Address [facility]/ZIP Co de Phone Number [facility] [place] [address] * (ABNORMAL) Magnesium (09/11/2017 2:57 PM EST) Magnesium 0.52(L) 0.69 - 1.07 mmol/L [facility] Blood specimen (specimen) 09/11/2017 2:57 PM EST 09/11/2017 3:03 PM EST Narrative Resulting Agency Comment Spec In Lab Yeny Waterman MD CHEMISTRY ORDERABLES Performing Organization Address [facility] Co de Phone Number [facility] [place] [address] * (ABNORMAL) Basic Metabolic Panel (non-fasting) (09/11/2017 2:57 PM EST) Glucose Lvl 130 65 - 199 mg/dL [facility] Comment:Diabetes: >=200 mg/d L plus symptoms BUN 6(L) 8 - 18 mg/dL [facility] Creatinine 0.44(L) 0.70 - 1.20 mg/dL [facility] Sodium 138 135 - 145 mmol/L [facility] Potassium 4.1 3.5 - 5.0 mmol/L [facility] Comment: Please note: ??Patients with WBC >100,000 may have falsely elevated Potassium levels. ??For accurate Potassium quantification in these patients send serum separator tube (gold top) for subsequent determinations. ??Contact the Clinical Chemistry Laboratory if there are any questions. Chloride 103 98 - 107 mmol/L [facility] CO2 21(L) 22 - 31 mmol/L [facility] Anion Gap 14 5 - 15 mmol/L [facility] Calcium 8.1(L) 8.5 - 10.5 mg/dL [facility] Estimated GFR >60 >=60 [facility] Comment: The reported eGFR should be multiplied by 1.2 for patients. The MDRD is not an appropriate measure of renal function for patients with body mass extremes or in patients with acute kidney failure. http://[employer]/DHnkdep http://[employer]/DHMCnkf Blood specimen (specimen) 09/11/2017 2:57 PM EST 09/11/2017 3:03 PM EST Narrative Resulting Agency Comment Spec In Lab Yeny Waterman MD CHEMISTRY ORDERABLES [facility] [place] [address] * Fibrinogen (09/11/2017 2:57 PM EST) Fibrinogen 361 180 - 510 mg/dL [facility] Comment: A fibrinogen level >100 mg/dL is adequate for hemostasis in most patients without underlying bleeding disorders. Blood specimen (specimen) 09/11/2017 2:57 PM EST 09/11/2017 3:03 PM EST Narrative Resulting Agency Comment Spec In Lab Yeny Waterman MD HEMATOLOGY ORDERABLE S [facility] [place] [address] * APTT (09/11/2017 2:57 PM EST) PTT 30 25 - 35 sec [facility] Comment: The recommended therapeutic range for full dose, unfractionated heparin at [facility] is 80 ? 114 seconds. The use of the anti-Xa (heparin) level rather than the PTT is recommended for monitoring anticoagulation intensity in critically ill patients receiving unfractionated heparin by continuous IV infusion. Blood specimen (specimen) 09/11/2017 2:57 PM EST 09/11/2017 3:03 PM EST Narrative Resulting Agency Comment Spec In Lab Yeny Waterman MD HEMATOLOGY ORDERABLE S Performing Organization Address [facility] de Phone Number [facility] [place] [address] * (ABNORMAL) Prothrombin Time (09/11/2017 2:57 PM EST) PT 14.4(H) 11.8 - 14.0 sec [facility] INR 1.2(H) 0.9 - 1.1 [facility] Comment: An INR <2.0 indicates adequate procoagulant activity for hemostasis in most patients without underlying bleeding disorders, though the INR may not adequately reflect hemostatic capacity in patients with liver disease and synthetic impairment. The recommended target INR range for therapeutic anticoagulation is 2.0 ? 3.0 for most applications, though lower and higher ranges may be appropriate depending on clinical circumstances. Blood specimen (specimen) 09/11/2017 2:57 PM EST 09/11/2017 3:03 PM EST Narrative Resulting Agency Comment Spec In Lab Yeny Waterman MD HEMATOLOGY ORDERABLE S Performing Organization Address [facility] Co de Phone Number [facility] [place] [address] * XR Abdomen 1 view (Generic) (09/11/2017 2:15 PM EST) Anatomical Region Laterality Modality Abdomen N/A Digital Radiogra phy Narrative 09/11/2017 2:28 PM EST EXAMINATION: XR ABDOMEN 1 VIEW (GENERIC) CLINICAL HISTORY: postop TECHNIQUE: Single AP supine view of the mid abdomen and pelvis. No count was possible before the surgery. No missing object. COMPARISON: None FINDINGS: No radiopaque foreign body that would raise concern for a retained object. Findings called by Dr. Madison Abdi and discussed with Dr. CHELY SIN at 09/11/2017 2:22 PM. ?? Procedure Note Skylar Zheng MD - 09/11/2017 EXAMINATION: XR ABDOMEN 1 VIEW (GENERIC) CLINICAL HISTORY: postop TECHNIQUE: Single AP supine view of the mid abdomen and pelvis. No count was possible before the surgery. No missing object. COMPARISON: None FINDINGS: No radiopaque foreign body that would raise concern for a retainedobject. Findings called by Dr. Madison Abdi and discussed with Dr. CHELY STEVE at 09/11/2017 2:22 PM. Electronically signed by: Skylar Abdi Radiology, 09/11/2017 2:28 PM Chely Sin MD IMG DX ORDERABLES * Specimen to Pathology (09/11/2017 1:53 PM EST) AP Specimen 09/11/2017 1:53 PM EST 09/11/2017 1:53 PM EST Narrative [facility] - 09/11/2017 1:53 PM EST Specimen requisition ordered. ??Separate Pathology report to follow Chely Sin MD PATHOLOGY/CYTOLOGY O RDERABLES [facility] [place] [address] * Specimen to Pathology (09/11/2017 1:30 PM EST) AP Specimen 09/11/2017 1:30 PM EST 09/11/2017 1:30 PM EST Narrative [facility] - 09/11/2017 1:30 PM EST Specimen requisition ordered. ??Separate Pathology report to follow Yeny Waterman MD PATHOLOGY/CYTOLOGY O RDERABLES Performing Organization Address [facility] [place] [place] [address] * Prepare RBC (09/11/2017 12:05 PM EST) Dispensed? Yes [facility] Blood specimen (specimen) 09/11/2017 12:05 PM EST 09/11/2017 12:03 PM EST Yeny Waterman MD BLOOD BANK PRODUCT O RDERABLES Performing Organization Address [facility] [place] [place] [address] * Surgical Pathology Report (09/11/2017 12:01 PM EST) Surgical Pathology Report [id number] ? Location: BP; BP17; A The signing pathologist has (i) examined the relevant preparation(s) for the specimen(s) and (ii) rendered or confirmed the diagnosis(es). . ?Surgical Pathology DIAGNOSIS A - Pre-term placenta, 228 grams (expected weight 360 grams). ?No chorioamnionitis. ?Focal intervillus fibrin deposition. ?Three vessel umbilical cord with eccentric insertion and no funisitis. B - Uterus and bilateral Fallopian tube, resections: ? 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 ?Status post transverse hysterotomy. ?Benign transected bilateral Fallopian tube. Electronically signed by: ??Derick TAY, Jayson Velez Verified: ??09/17/2017 ?Pathologist Performed at: ??-[facility] Dept. of Pathology, [place], [place] CLINICAL INFORMATION Specimen Submitted: A - Placenta B - Uterus and portion of left Fallopian tube Clinical History: 27 year old with history of Caesarean sections; repeat Caesarean section/ hysterectomy at 34 weeks gestation; operative findings: 2035 gram baby girl, placenta previa, uterine atony with hemorrhage, normal adnexa; concern for placenta accreta. Clinical Diagnosis: Same. SPECIMEN PROCESSING A - Labeled/Fixative: Vasa previa, concern for placental accreta, fresh. Qty/Size/Weight: Two, 19 x 12 x 1.5 cm, 228 grams. Tissue Description: Ovoid calzada placenta with an additional detached portion of umbilical cord. Membranes: Glistening, pink-wing, translucent, marginal insertion. Cord: 25 x 1.4 cm; three vessels; eccentric insertion. Surface: Glistening, barcenas-wing, multiple intact medium caliber branching blood vessels, no lesions. Maternal Surface: Moderately disrupted, no lesions. Parenchyma: Soft, red-brown, no lesions. Sections/Processi ng: (1) membrane roll; (2) proximal and distal cord; (3-5) full thickness parenchyma; (6-7) disrupted surface. (R7) B - Labeled/Fixative: Uterus and portion of left Fallopian tube. Assess for accreta, fresh. Qty/Size/Weight: Two, 11 x 11 x 7.5 cm, 496 grams. (overall). Specimen Description: Disrupted and sutured hysterectomy specimen with an attached fimbriated right fallopian tube and a detached fimbriated left fallopian tube ?. UTERUS AND CERVIX Serosa: Hyperemic, glistening, no lesions. On the anterior surface, at the lower uterine segments, there is a 7 cm long transverse incision with sutures. Endometrium: The endometrial cavity is 8 x 6.5 cm. On the lower posterior surface is a 2.5 x 1.8 x 0.9 cm fragment placental tissue which grossly invades the endometrium but not the myometrium. . SPECIMEN PROCESSING Myometrium: The myometrium averages 2.8 cm thick, with no lesions. Cervix: Absent. OVARIES AND FALLOPIAN TUBES Right Ovary: Absent. Right Tube: The attached fimbriated segment of right fallopian tube is 7.5 x 0.4 x 0.4 cm. Left Ovary: Absent. Left Tube: The detached segment of left fimbriated fallopian tube is 4.0 x 0.4 x 0.4 cm. SECTIONS/PROCESSI NG: The entire area of adherent placenta is submitted. (1) left fallopian tube cross sections; (2) right fallopian tube cross sections; (3-4) full- thickness anterior endomyometrium; (5-6) full-thickness posterior endomyometrium with placenta; (7-15) remaining anterior endometrium with placenta ?. (R15) ??doron [facility] 09/11/2017 12:0 1 PM EST Jhonathan Robertson MD PATHOLOGY/CYTOLOGY O RDERABLES Performing Organization Address [facility] Co de Phone Number [facility] [place] [address] * POCT Glucose (09/11/2017 8:58 AM EST) POC Glucose 91 65 - 199 mg/dL [facility] Comment: Supplemental ranges: <140 mg/dL before meals <180 mg/dL all other times of the day Blood specimen (specimen) 09/11/2017 8:58 AM EST 09/11/2017 8:58 AM EST Yeny Waterman MD POINT OF CARE TEST O RDERABLES Performing Organization Address [facility] Co de Phone Number [facility] [place] [address] * Ab Comment (09/11/2017 5:15 AM EST) Ab Information INTERPRETATION: A red cell alloantibody, anti-Jka, 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 ??This antibody can cause red cell hemolysis. Future units for transfusion will be negative for the Jka antigen and cross-match compatible at the antiglobulin phase. ??These additional steps will add about an hour to unit preparation time, but compatible units should be available in our inventory. In addition, this patient has historically identified panagglutinin in solid phase testing only. Kanika Lim, MD, PhD Transfusion Medicine Service 09/22/17 12:02 [facility] Comment: KANIKA LIM, Nicolas Verified:09/22/17 Blood specimen (specimen) Venous Draw / Unknown 09/11/2017 5:15 AM EST 09/11/2017 5:29 AM EST Narrative Resulting Agency Comment Spec In Lab Yoly Cueva MD BLOOD BANK LAB ORDER KURT [facility] [place] [address] * Antibody identification (09/11/2017 5:15 AM EST) Ab Identified Anti-Jka [facility] Blood specimen (specimen) Venous Draw / Unknown 09/11/2017 5:15 AM EST 09/11/2017 5:29 AM EST Narrative Resulting Agency Comment Spec In Lab Yoly Cueva MD BLOOD BANK LAB ORDER KURT [facility] [place] [address] * ABORH Recheck Status (09/11/2017 5:15 AM EST) ABORH Type Recheck Completed [facility] Blood specimen (specimen) Venous Draw / Unknown 09/11/2017 5:15 AM EST 09/11/2017 5:29 AM EST Narrative Resulting Agency Comment Spec In Lab Yoly Cueva MD BLOOD BANK LAB ORDER KURT [facility] [place] [address] * Antibody screen manual (09/11/2017 5:15 AM EST) AB Screen Interp Positive [facility] Blood specimen (specimen) Venous Draw / Unknown 09/11/2017 5:15 AM EST 09/11/2017 5:29 AM EST Narrative Resulting Agency Comment Spec In Lab Yeny Waterman MD BLOOD BANK LAB ORDER KURT [facility] [place] [address] * ABORh Type Manual (09/11/2017 5:15 AM EST) Expires at [id number] on: 09/14/2017 [facility] ABORh Type B Pos [facility] Blood specimen (specimen) Venous Draw / Unknown 09/11/2017 5:15 AM EST 09/11/2017 5:29 AM EST Narrative Resulting Agency Comment Spec In Lab Yeny Waterman MD BLOOD BANK LAB ORDER KURT Performing Organization Address City/[facility]/ZIP Co de Phone Number [facility] [place] [address] * Differential, Automated (09/11/2017 5:15 AM EST) Neutrophils % 59.9 % [facility] Neutr Abs (ANC) 4.60 1.70 - 6.10 x10(3)/[facility] Lymphocytes % 29.6 % [facility] Lymphocytes Abs 2.3 0.9 - 3.2 x10(3)/[facility]ORY Monocytes % 8.8 % [facility] Monocyte Abs 0.7 0.3 - 0.9 x10(3)/[facility] Eosinophils % 0.9 % [facility] Eosinophils Abs 0.1 0.0 - 0.4 x10(3)/[facility] Basophils % 0.3 % [facility] Basophils Abs 0.0 0.0 - 0.1 x10(3)/[facility] Immature Gran % 0.50 % [facility] Comment: Immature granulocytes(IG's)percentage and absolute count will include metamyelocytes, myelocytes, and promyelocytes. Blood smears from CBCs yielding IG's will be scanned manually for concordance. If this scan disagrees with the automated IG or if promyelocytes are noted, a manual differential will be performed. Josie Gran Abs 0.04 0.00 - 0.04 x10(3)/[facility] Blood specimen (specimen) 09/11/2017 5:15 AM EST 09/11/2017 5:32 AM EST Narrative Resulting Agency Comment Spec In Lab Yeny Waterman MD HEMATOLOGY ORDERABLE S [facility] [place] [address] * (ABNORMAL) Hemogram (09/11/2017 5:15 AM EST) WBC 7.7 4.0 - 9.5 x10(3)/[facility] RBC 3.88(L) 4.00 - 5.21 x10(6)/[facility] Hemoglobin 11.2(L) 11.7 - 15.5 gm/dL [facility] Hematocrit 32.4(L) 35.7 - 45.8 % [facility] MCV 83.5 82.6 - 94.4 fL [facility] MCH 28.9 27.1 - 32.0 pg [facility] MCHC 34.6 31.7 - 35.0 gm/dL [facility] Platelets 195 145 - 357 x10(3)/[facility] LABORATORY RDWSD 38.8 37.0 - 46.0 [facility]ATORY RDWCV 12.9 11.5 - 14.1 % [facility] MPV 8.2 7.6 - 12.9 [facility] nRBC % Auto 0.0 % [facility] nRBC Abs Auto 0.000 0.000 - 0.000 x10(3)/[facility] Blood specimen (specimen) 09/11/2017 5:15 AM EST 09/11/2017 5:32 AM EST Narrative Resulting Agency Comment Spec In Lab Yeny Waterman MD HEMATOLOGY ORDERABLE S [facility] [place] [address] * SCAN DOC: LAB (09/11/2017 12:00 AM EST) Narrative 09/11/2017 12:00 AM EST Ordered by an unspecified provider. Scanning Provider MEDIA MGR SCAN EXT O RDR/RSLT * POCT Glucose (09/10/2017 7:15 PM EST) POC Glucose 99 65 - 199 mg/dL [facility] Comment: Supplemental ranges: <140 mg/dL before meals <180 mg/dL all other times of the day Blood specimen (specimen) 09/10/2017 7:15 PM EST 09/10/2017 7:15 PM EST Yeny Waterman MD POINT OF CARE TEST O RDERABLES Performing Organization Address [facility]/ZIP Co de Phone Number [facility] [place] [address] * POCT Glucose (09/10/2017 3:01 PM EST) POC Glucose 138 65 - 199 mg/dL [facility] Comment: Supplemental ranges: <140 mg/dL before meals <180 mg/dL all other times of the day Blood specimen (specimen) 09/10/2017 3:01 PM EST 09/10/2017 3:01 PM EST Yeny Waterman MD POINT OF CARE TEST O RDERABLES [facility] [place] [address] * POCT Glucose (09/10/2017 12:58 PM EST) POC Glucose 83 65 - 199 mg/dL [facility] Comment: Supplemental ranges: <140 mg/dL before meals <180 mg/dL all other times of the day Blood specimen (specimen) 09/10/2017 12:58 PM EST 09/10/2017 12:58 PM EST Yeny Waterman MD POINT OF CARE TEST O JORGE ALBERTO Performing Organization Address [facility] de Phone Number [facility] [place] [address] * SCAN DOC: [employer] (09/10/2017 12:00 AM EST) Anatomical Region Laterality Modality Other Narrative 09/10/2017 12:00 AM EST Ordered by an unspecified provider. Scanning Provider MEDIA MGR SCAN EXT O RDR/RSLT * POCT Glucose (09/09/2017 8:28 PM EST) POC Glucose 118 65 - 199 mg/dL [facility] Comment: Supplemental ranges: <140 mg/dL before meals <180 mg/dL all other times of the day Blood specimen (specimen) 09/09/2017 8:28 PM EST 09/09/2017 8:28 PM EST Yeny Waterman MD POINT OF CARE TEST O JORGE ALBERTO Performing Organization Address [facility] de Phone Number [facility] [place] [address] * POCT Glucose (09/09/2017 3:32 PM EST) POC Glucose 121 65 - 199 mg/dL [facility] Comment: Supplemental ranges: <140 mg/dL before meals <180 mg/dL all other times of the day Blood specimen (specimen) 09/09/2017 3:32 PM EST 09/09/2017 3:32 PM EST Yeny Waterman MD POINT OF CARE TEST O RDERABLES Performing Organization Address City/[facility]/ZIP Co de Phone Number [facility] [place] [address] * POCT Glucose (09/09/2017 1:46 PM EST) POC Glucose 75 65 - 199 mg/dL [facility] Comment: Supplemental ranges: <140 mg/dL before meals <180 mg/dL all other times of the day Blood specimen (specimen) 09/09/2017 1:46 PM EST 09/09/2017 1:46 PM EST Yeny Waterman MD POINT OF CARE TEST O RDERABLES Performing Organization Address [facility] Co de Phone Number [facility] [place] [address] * POCT Glucose (09/09/2017 12:28 AM EST) POC Glucose 169 65 - 199 mg/dL [facility] Comment: Supplemental ranges: <140 mg/dL before meals <180 mg/dL all other times of the day Blood specimen (specimen) 09/09/2017 12:28 AM EST 09/09/2017 12:28 AM EST Yeny Waterman MD POINT OF CARE TEST O RDERABLES Performing Organization Address [facility] Co de Phone Number [facility] [place] [address] * POCT Glucose (09/08/2017 2:38 PM EST) POC Glucose 160 65 - 199 mg/dL [facility] Comment: Supplemental ranges: <140 mg/dL before meals <180 mg/dL all other times of the day Blood specimen (specimen) 09/08/2017 2:38 PM EST 09/08/2017 2:38 PM EST Yeny Waterman MD POINT OF CARE TEST O RDERABLES Performing Organization Address City/[facility]/ZIP Co de Phone Number [facility] [place] [address] * POCT Glucose (09/08/2017 11:46 AM EST) POC Glucose 89 65 - 199 mg/dL [facility] Comment: Supplemental ranges: <140 mg/dL before meals <180 mg/dL all other times of the day Blood specimen (specimen) 09/08/2017 11:46 AM EST 09/08/2017 11:46 AM EST Yeny Waterman MD POINT OF CARE TEST O RDERABLES [facility] [place] [address] * POCT Glucose (09/07/2017 10:41 PM EST) POC Glucose 140 65 - 199 mg/dL [facility] Comment: Supplemental ranges: <140 mg/dL before meals <180 mg/dL all other times of the day Blood specimen (specimen) 09/07/2017 10:41 PM EST 09/07/2017 10:41 PM EST Yeny Waterman MD POINT OF CARE TEST O RDERABLES [facility] [place] [address] * POCT Glucose (09/07/2017 2:56 PM EST) POC Glucose 147 65 - 199 mg/dL [facility] Comment: Supplemental ranges: <140 mg/dL before meals <180 mg/dL all other times of the day Blood specimen (specimen) 09/07/2017 2:56 PM EST 09/07/2017 2:56 PM EST Yeny Waterman MD POINT OF CARE TEST O RDERABLES [facility] [place] [address] * POCT Glucose (09/07/2017 12:55 PM EST) POC Glucose 85 65 - 199 mg/dL [facility] Comment: Supplemental ranges: <140 mg/dL before meals <180 mg/dL all other times of the day Blood specimen (specimen) 09/07/2017 12:55 PM EST 09/07/2017 12:55 PM EST Yeny Waterman MD POINT OF CARE TEST O JORGE ALBERTO [facility] [place] [address] * POCT Glucose (09/06/2017 7:37 PM EST) POC Glucose 120 65 - 199 mg/dL [facility] Comment: Supplemental ranges: <140 mg/dL before meals <180 mg/dL all other times of the day Blood specimen (specimen) 09/06/2017 7:37 PM EST 09/06/2017 7:37 PM EST Yeny Waterman MD POINT OF CARE TEST O JORGE ALBERTO [facility] [place] [address] * POCT Glucose (09/06/2017 2:12 PM EST) POC Glucose 134 65 - 199 mg/dL [facility] Comment: Supplemental ranges: <140 mg/dL before meals <180 mg/dL all other times of the day Blood specimen (specimen) 09/06/2017 2:12 PM EST 09/06/2017 2:12 PM EST Yeny Waterman MD POINT OF CARE TEST O JORGE ALBERTO [facility] [place] [address] * POCT Glucose (09/06/2017 12:09 PM EST) POC Glucose 85 65 - 199 mg/dL [facility] Comment: Supplemental ranges: <140 mg/dL before meals <180 mg/dL all other times of the day Blood specimen (specimen) 09/06/2017 12:09 PM EST 09/06/2017 12:09 PM EST Yeny Waterman MD POINT OF CARE TEST O JORGE ALBERTO Performing Organization Address City/[facility]/ZIP Co de Phone Number [facility] [place] [address] * POCT Glucose (09/05/2017 8:40 PM EST) POC Glucose 123 65 - 199 mg/dL [facility] Comment: Supplemental ranges: <140 mg/dL before meals <180 mg/dL all other times of the day Blood specimen (specimen) 09/05/2017 8:40 PM EST 09/05/2017 8:40 PM EST Yeny Waterman MD POINT OF CARE TEST O JORGE ALBERTO Performing Organization Address [facility] Co de Phone Number [facility] [place] [address] * POCT Glucose (09/05/2017 3:39 PM EST) POC Glucose 163 65 - 199 mg/dL [facility] Comment: Supplemental ranges: <140 mg/dL before meals <180 mg/dL all other times of the day Blood specimen (specimen) 09/05/2017 3:39 PM EST 09/05/2017 3:39 PM EST Yeny Waterman MD POINT OF CARE TEST O RDERAFRANNIE Performing Organization Address City/[facility] Co de Phone Number [facility] [place] [address] * POCT Glucose (09/05/2017 1:45 PM EST) POC Glucose 91 65 - 199 mg/dL [facility] Comment: Supplemental ranges: <140 mg/dL before meals <180 mg/dL all other times of the day Blood specimen (specimen) 09/05/2017 1:45 PM EST 09/05/2017 1:45 PM EST Yeny Waterman MD POINT OF CARE TEST O RDERAFRANNIE Performing Organization Address City/[facility]/ZIP Co de Phone Number [facility] [place] [address] * POCT Glucose (09/04/2017 11:36 PM EST) POC Glucose 167 65 - 199 mg/dL [facility] Comment: Supplemental ranges: <140 mg/dL before meals <180 mg/dL all other times of the day Blood specimen (specimen) 09/04/2017 11:36 PM EST 09/04/2017 11:36 PM EST Yeny Waterman MD POINT OF CARE TEST O RDERAFRANNIE Performing Organization Address [facility] Co de Phone Number [facility] [place] [address] * POCT Glucose (09/04/2017 4:14 PM EST) POC Glucose 150 65 - 199 mg/dL [facility] Comment: Supplemental ranges: <140 mg/dL before meals <180 mg/dL all other times of the day Blood specimen (specimen) 09/04/2017 4:14 PM EST 09/04/2017 4:14 PM EST Yeny Waterman MD POINT OF CARE TEST O RDERABLES Performing Organization Address City/[facility] Co de Phone Number [facility] [place] [address] * POCT Glucose (09/04/2017 1:29 PM EST) POC Glucose 99 65 - 199 mg/dL [facility] Comment: Supplemental ranges: <140 mg/dL before meals <180 mg/dL all other times of the day Blood specimen (specimen) 09/04/2017 1:29 PM EST 09/04/2017 1:29 PM EST Yeny Waterman MD POINT OF CARE TEST O JORGE ALBERTO Performing Organization Address City/[facility]/ZIP Co de Phone Number [facility] [place] [address] * POCT Glucose (09/03/2017 4:56 PM EST) POC Glucose 138 65 - 199 mg/dL [facility] Comment: Supplemental ranges: <140 mg/dL before meals <180 mg/dL all other times of the day Blood specimen (specimen) 09/03/2017 4:56 PM EST 09/03/2017 4:56 PM EST Yeny Waterman MD POINT OF CARE TEST O JORGE ALBERTO Performing Organization Address [facility] Co de Phone Number [facility] [place] [address] * POCT Glucose (09/03/2017 2:11 PM EST) POC Glucose 92 65 - 199 mg/dL [facility] Comment: Supplemental ranges: <140 mg/dL before meals <180 mg/dL all other times of the day Blood specimen (specimen) 09/03/2017 2:11 PM EST 09/03/2017 2:11 PM EST Yeny Waterman MD POINT OF CARE TEST O JORGE ALBERTO Performing Organization Address [facility]/ZIP Co de Phone Number [facility] [place] [address] * POCT Glucose (09/02/2017 9:34 PM EST) POC Glucose 118 65 - 199 mg/dL [facility] Comment: Supplemental ranges: <140 mg/dL before meals <180 mg/dL all other times of the day Blood specimen (specimen) 09/02/2017 9:34 PM EST 09/02/2017 9:34 PM EST Yeny Waterman MD POINT OF CARE TEST O RDANG Performing Organization Address [facility] de Phone Number [facility] [place] [address] * POCT Glucose (09/02/2017 3:23 PM EST) POC Glucose 163 65 - 199 mg/dL [facility] Comment: Supplemental ranges: <140 mg/dL before meals <180 mg/dL all other times of the day Blood specimen (specimen) 09/02/2017 3:23 PM EST 09/02/2017 3:23 PM EST Yeny Waterman MD POINT OF CARE TEST O JORGE ALBERTO Performing Organization Address [facility] de Phone Number [facility] [place] [address] * POCT Glucose (09/02/2017 12:33 PM EST) POC Glucose 94 65 - 199 mg/dL [facility] Comment: Supplemental ranges: <140 mg/dL before meals <180 mg/dL all other times of the day Blood specimen (specimen) 09/02/2017 12:33 PM EST 09/02/2017 12:33 PM EST Yeny Waterman MD POINT OF CARE TEST O JORGE ALBERTO Performing Organization Address [facility] Co de Phone Number [facility] [place] [address] * Group B Streptococcus Screen (09/02/2017 1:57 AM EST) Group B Strep Screen Neg [facility] Pooled specimen from vaginal introitus and rectal swab (specimen) 09/02/2017 1:57 AM EST 09/02/2017 8:15 AM EST Comment:Penicillin Allergy?- >No Narrative Resulting Agency Comment Spec In Lab Yeny Waterman MD MICROBIOLOGY - GENER AL ORDERABLES Performing Organization Address [facility] Co de Phone Number [facility] [place] [address] * Group B Strep Culture Screen (09/02/2017 1:57 AM EST) Group B Streptococcus Culture No Group B Streptococci isolated [facility] Pooled specimen from vaginal introitus and rectal swab (specimen) 09/02/2017 1:57 AM EST 09/02/2017 8:15 AM EST Comment:PENICILLIN ALLERGY?- >NO Narrative Resulting Agency Comment Spec In Lab Yeny Waterman MD MICROBIOLOGY - GENER AL ORDERABLES Performing Organization Address [facility] Co de Phone Number [facility] [place] [address] * POCT Glucose (09/01/2017 7:29 PM EST) POC Glucose 136 65 - 199 mg/dL [facility] Comment: Supplemental ranges: <140 mg/dL before meals <180 mg/dL all other times of the day Blood specimen (specimen) 09/01/2017 7:29 PM EST 09/01/2017 7:29 PM EST Yeny Waterman MD POINT OF CARE TEST O RDERABLES Performing Organization Address [facility] Co de Phone Number [facility] [place] [address] * US OB Follow Up Evaluation (09/01/2017 10:58 AM EST) Anatomical Region Laterality Modality Pelvis, Abdomen Ultrasound 09/01/2017 10:0 0 AM EST Impressions 09/01/2017 11:19 AM EST 3rd Trimester Summary Single intrauterine with a gestational age of 32w 4d based on LMP ??(01/16/17). Composite age based on the current ultrasound alone is 31w 4d. Estimated weight corresponds to the 49th percentile for 32w 4d. Current growth parameters are consistent with prior dating indicating normal growth. Amniotic fluid volume is lower limits of normal. Anatomical survey is limited due to the late gestational age. ?? No structural abnormalities visualized. Transvaginal ultrasound imaging performed to evaluate for vasa previa. ??Unable to differentiate placental distance from the internal cervical os due to position. ??Vasa previa visualized with arterial vessel traversing left lateral to the internal cervical os. ?Li Sepulveda MD Electronically Signed Final Report ?? 09/01/2017 11:19 am Narrative 09/01/2017 11:19 AM EST OBSTETRICS REPORT ? (Signed Final 09/01/2017 11:19 am) PATIENT INFO: ID #: ? [id number] ?: ??[birth year] (27 yrs) Name: ? PAM Lopez ?Visit Date: 09/01/2017 10:00 am ? JAYA PERFORMED BY: Performed By: ? Ruth Ann Dixon RDMS Attending: ?Derick TAY, Li Umanzor Referred By: ?YENY WATERMAN Location: ? [place] SERVICE(S) PROVIDED: ??UOBFOL - Efw - Growth - [place] - [id number] ? [id number] ??UOBTV - Viability - Cervical Length -Transvaginal - ?? [id number] ??[id number] INDICATIONS: ??32 weeks gestation of ?Z3A.32 ??follow up growth and vasa previa OB HISTORY: Blood ?B+ ?Height: ??4'11 ?? Weight (lb): 236 ? BMI: ??47.66 Type: EVALUATION: Num Of Fetuses: ? 1 Heart ? 149 Rate(bpm): Cardiac Activity: ?? Observed, normal rhythm Presentation: ? Cephalic Placenta: ? Left LAT Low lying Vasa Previa P. Cord Insertion: ??Within Normal Limits Amniotic Fluid SHERI FV: ?Lower limits of normal SHERI Sum(cm) ? Largest Pocket(cm) 8.1 ? 3.3 RUQ(cm) ? RLQ(cm) ? LUQ(cm) ?LLQ(cm) 3.3 ? 1.7 ? 3.1 ?0.0 --------- BIOMETRY: --------- BPD: ?77.0 ??mm ? G.Age: ?? 30w 6d ? 7 ??% HC: ?288.0 ??mm ? G.Age: ?? 31w 5d ? 5 ??% AC: ?275.0 ??mm ? G.Age: ?? 31w 4d ?22 ??% FL: ? 62.0 ??mm ? G.Age: ?? 32w 1d ?26 ??% HUM: ?58.0 ??mm ? G.Age: ?? 33w 4d ?77 ??% CER: ?43.0 ??mm ? G.Age: ?? 37w 0d ?> 95 ??% LV: ?2.2 ??mm CM: ?6.0 ??mm CI: ? 72.34 ??% ? 70 - 86 FL/HC: ? 21.5 ??% ? 19.9 - 21.5 HC/AC: ? 1.05 ?0.96 - 1.11 FL/BPD: ?80.5 ??% ? 71 - 87 FL/AC: ? 22.5 ??% ? 20 - 24 Est. FW: ?1819 ?? gm ?4 lb ?49 ??% GESTATIONAL AGE: LMP: ? 32w 4d ?Date: ??01/16/17 ? CHITRA: ?? 10/23/17 U/S Today: ? 31w 4d ?CHITRA: ?? 10/30/17 Best: ?32w 4d ?? Det. By: ??LMP ??(01/16/17) ?CHITRA: ?? 10/23/17 -------- ANATOMY: -------- Cranium: ? Limited views Cavum: ? Limited views Ventricles: ?Within Normal Limits Choroid Plexus: ?Not visualized due to late gestational a Cerebellum: ?Limited views Posterior Fossa: ? Limited views Nuchal Fold: ? Not evaluated at this gestational age Face: ?Limited views Heart: ? Limited Views RVOT: ?Not visualized due to late gestational a LVOT: ?Not visualized due to late gestational a Diaphragm: ? Visualized Stomach: ? Visualized Abdomen: ? Limited Views Abdominal Wall: ?Not visualized due to late gestational a Cord Vessels: ?Limited Views Kidneys: ? Visualized Bladder: ? Visualized Spine: ? Limited views Upper Extremities: ? Limited views Lower Extremities: ? Limited views CERVIX UTERUS ADNEXA: Cervix Length: ?4.6 ??cm. Closed; No change with fundal pressure Left Ovary Not visualized Right Ovary Not visualized Procedure Note Li Sepulveda MD - 09/01/2017 OBSTETRICS REPORT (Signed Final 09/01/2017 11:19 am) PATIENT INFO: ID #: [id number] : [birth year] (27 yrs) Name: PAM Lopez Visit Date: 09/01/2017 10:00 am [place] PERFORMED BY: Performed By: Ruth Ann Dixon RDMS Attending: Li Sepulveda MD Referred By: YENY WATERMAN Location: [facility] SERVICE(S) PROVIDED: UOBFOL - Efw - Growth - [place] - [id number] UOBTV - Viability - Cervical Length -Transvaginal - [id number] INDICATIONS: 32 weeks gestation of Z3A.32 follow up growth and vasa previa OB HISTORY: Blood B+ Height: 4'11 Weight (lb): 236 BMI: 47.66 Type: EVALUATION: Num Of Fetuses: 1 Heart 149 Rate(bpm): Cardiac Activity: Observed, normal rhythm Presentation: Cephalic Placenta: Left LAT Low lying Vasa Previa P. Cord Insertion: Within Normal Limits Amniotic Fluid SHERI FV: Lower limits of normal SHERI Sum(cm) Largest Pocket(cm) 8.1 3.3 RUQ(cm) RLQ(cm) LUQ(cm) LLQ(cm) 3.3 1.7 3.1 0.0 --------- BIOMETRY: --------- BPD: 77.0 mm G.Age: 30w 6d 7 % HC: 288.0 mm G.Age: 31w 5d 5 % AC: 275.0 mm G.Age: 31w 4d 22 % FL: 62.0 mm G.Age: 32w 1d 26 % HUM: 58.0 mm G.Age: 33w 4d 77 % CER: 43.0 mm G.Age: 37w 0d > 95 % LV: 2.2 mm CM: 6.0 mm CI: 72.34 % 70 - 86 FL/HC: 21.5 % 19.9 - 21.5 HC/AC: 1.05 0.96 - 1.11 FL/BPD: 80.5 % 71 - 87 FL/AC: 22.5 % 20 - 24 Est. FW: 1819 gm 4 lb 49 % GESTATIONAL AGE: LMP: 32w 4d Date: 01/16/17 CHITRA: 10/23/17 U/S Today: 31w 4d CHITRA: 10/30/17 Best: 32w 4d Det. By: LMP (01/16/17) CHITRA: 10/23/17 -------- ANATOMY: -------- Cranium: Limited views Cavum: Limited views Ventricles: Within Normal Limits Choroid Plexus: Not visualized due to late gestational a Cerebellum: Limited views Posterior Fossa: Limited views Nuchal Fold: Not evaluated at this gestational age Face: Limited views Heart: Limited Views RVOT: Not visualized due to late gestational a LVOT: Not visualized due to late gestational a Diaphragm: Visualized Stomach: Visualized Abdomen: Limited Views Abdominal Wall: Not visualized due to late gestational a Cord Vessels: Limited Views Kidneys: Visualized Bladder: Visualized Spine: Limited views Upper Extremities: Limited views Lower Extremities: Limited views CERVIX UTERUS ADNEXA: Cervix Length: 4.6 cm. Closed; No change with fundal pressure Left Ovary Not visualized Right Ovary Not visualized IMPRESSION 3rd Trimester Summary Single intrauterine with a gestational age of 32w 4d based on LMP (01/16/17). Composite age based on the current ultrasound alone is 31w 4d. Estimated weight corresponds to the 49th percentile for 32w 4d. Current growth parameters are consistent with prior dating indicating normal growth. Amniotic fluid volume is lower limits of normal. Anatomical survey is limited due to the late gestational age. No structural abnormalities visualized. Transvaginal ultrasound imaging performed to evaluate for vasa previa. Unable to differentiate placental distance from the internal cervical os due to position. Vasa previa visualized with arterial vessel traversing left lateral to the internal cervical os. Li Sepulveda MD Electronically Signed Final Report 09/01/2017 11:19 am Yeny Waterman MD IM US OB ORDERABLES * POCT Glucose (09/01/2017 8:45 AM EST) POC Glucose 92 65 - 199 mg/dL [facility] Comment: Supplemental ranges: <140 mg/dL before meals <180 mg/dL all other times of the day Blood specimen (specimen) 09/01/2017 8:45 AM EST 09/01/2017 8:45 AM EST Yeny Waterman MD POINT OF CARE TEST O JORGE ALBERTO [facility] [place] [address] * POCT Glucose (08/31/2017 3:32 PM EST) POC Glucose 110 65 - 199 mg/dL [facility] Comment: Supplemental ranges: <140 mg/dL before meals <180 mg/dL all other times of the day Blood specimen (specimen) 08/31/2017 3:32 PM EST 08/31/2017 3:32 PM EST Yeny Waterman MD POINT OF CARE TEST O RDERABLES Performing Organization Address [facility] Co de Phone Number [facility] [place] [address] * POCT Glucose (08/31/2017 8:49 AM EST) POC Glucose 94 65 - 199 mg/dL [facility] Comment: Supplemental ranges: <140 mg/dL before meals <180 mg/dL all other times of the day Blood specimen (specimen) 08/31/2017 8:49 AM EST 08/31/2017 8:49 AM EST Yeny Waterman MD POINT OF CARE TEST O RDERABLES Performing Organization Address [facility] Co de Phone Number [facility] [place] [address] * POCT Glucose (08/30/2017 8:54 PM EST) POC Glucose 130 65 - 199 mg/dL [facility] Comment: Supplemental ranges: <140 mg/dL before meals <180 mg/dL all other times of the day Blood specimen (specimen) 08/30/2017 8:54 PM EST 08/30/2017 8:54 PM EST Yeny Waterman MD POINT OF CARE TEST O RDERABLES Performing Organization Address [facility] Co de Phone Number [facility] [place] [address] * POCT Glucose (08/30/2017 3:16 PM EST) POC Glucose 121 65 - 199 mg/dL [facility] Comment: Supplemental ranges: <140 mg/dL before meals <180 mg/dL all other times of the day Blood specimen (specimen) 08/30/2017 3:16 PM EST 08/30/2017 3:16 PM EST Yeny Waterman MD POINT OF CARE TEST O RDERABLES Performing Organization Address City/[facility]/ZIP Co de Phone Number [facility] [place] [address] * POCT Glucose (08/30/2017 12:38 PM EST) POC Glucose 92 65 - 199 mg/dL [facility] Comment: Supplemental ranges: <140 mg/dL before meals <180 mg/dL all other times of the day Blood specimen (specimen) 08/30/2017 12:38 PM EST 08/30/2017 12:38 PM EST Yeny Waterman MD POINT OF CARE TEST O RDERABLES [facility] [place] [address] * POCT Glucose (08/29/2017 8:47 PM EST) POC Glucose 173 65 - 199 mg/dL [facility] Comment: Supplemental ranges: <140 mg/dL before meals <180 mg/dL all other times of the day Blood specimen (specimen) 08/29/2017 8:47 PM EST 08/29/2017 8:47 PM EST Yeny Waterman MD POINT OF CARE TEST O RDERABLES [facility] [place] [address] * POCT Glucose (08/29/2017 3:31 PM EST) POC Glucose 119 65 - 199 mg/dL [facility] Comment: Supplemental ranges: <140 mg/dL before meals <180 mg/dL all other times of the day Blood specimen (specimen) 08/29/2017 3:31 PM EST 08/29/2017 3:31 PM EST Yeny Waterman MD POINT OF CARE TEST O RDERABLES [facility] [place] [address] * POCT Glucose (08/29/2017 1:16 PM EST) POC Glucose 98 65 - 199 mg/dL [facility] Comment: Supplemental ranges: <140 mg/dL before meals <180 mg/dL all other times of the day Blood specimen (specimen) 08/29/2017 1:16 PM EST 08/29/2017 1:16 PM EST Yeny Waterman MD POINT OF CARE TEST O RDERAFRANNIE [facility] [place] [address] * POCT Glucose (08/29/2017 9:25 AM EST) POC Glucose 108 65 - 199 mg/dL [facility] Comment: Supplemental ranges: <140 mg/dL before meals <180 mg/dL all other times of the day Blood specimen (specimen) 08/29/2017 9:25 AM EST 08/29/2017 9:25 AM EST Yeny Waterman MD POINT OF CARE TEST O JORGE ALBERTO [facility] [place] [address] * POCT Glucose (08/28/2017 8:59 PM EST) POC Glucose 122 65 - 199 mg/dL [facility] Comment: Supplemental ranges: <140 mg/dL before meals <180 mg/dL all other times of the day Blood specimen (specimen) 08/28/2017 8:59 PM EST 08/28/2017 8:59 PM EST Yeny Waterman MD POINT OF CARE TEST O JORGE ALBERTO [facility] [place] [address] * POCT Glucose (08/28/2017 3:45 PM EST) POC Glucose 138 65 - 199 mg/dL [facility] Comment: Supplemental ranges: <140 mg/dL before meals <180 mg/dL all other times of the day Blood specimen (specimen) 08/28/2017 3:45 PM EST 08/28/2017 3:45 PM EST Yeny Waterman MD POINT OF CARE TEST O JORGE ALBERTO Performing Organization Address City/[facility]/ZIP Co de Phone Number [facility] [place] [address] * POCT Glucose (08/28/2017 12:23 PM EST) POC Glucose 94 65 - 199 mg/dL [facility] Comment: Supplemental ranges: <140 mg/dL before meals <180 mg/dL all other times of the day Blood specimen (specimen) 08/28/2017 12:23 PM EST 08/28/2017 12:23 PM EST Yeny Waterman MD POINT OF CARE TEST O JORGE ALBERTO Performing Organization Address [facility]/ZIP Co de Phone Number [facility] [place] [address] * POCT Glucose (08/27/2017 9:40 PM EST) POC Glucose 134 65 - 199 mg/dL [facility] Comment: Supplemental ranges: <140 mg/dL before meals <180 mg/dL all other times of the day Blood specimen (specimen) 08/27/2017 9:40 PM EST 08/27/2017 9:40 PM EST Yeny Waterman MD POINT OF CARE TEST O JORGE ALBERTO Performing Organization Address City/[facility]/ZIP Co de Phone Number [facility] [place] [address] * POCT Glucose (08/27/2017 3:08 PM EST) POC Glucose 129 65 - 199 mg/dL [facility] Comment: Supplemental ranges: <140 mg/dL before meals <180 mg/dL all other times of the day Blood specimen (specimen) 08/27/2017 3:08 PM EST 08/27/2017 3:08 PM EST Yeny Waterman MD POINT OF CARE TEST O RDERABLES Performing Organization Address City/[facility]/ZIP Co de Phone Number [facility] [place] [address] * POCT Glucose (08/27/2017 11:31 AM EST) POC Glucose 91 65 - 199 mg/dL [facility] Comment: Supplemental ranges: <140 mg/dL before meals <180 mg/dL all other times of the day Blood specimen (specimen) 08/27/2017 11:31 AM EST 08/27/2017 11:31 AM EST Yeny Waterman MD POINT OF CARE TEST O RDERAFRANNIE Performing Organization Address [facility]/ZIP Co de Phone Number [facility] [place] [address] * POCT Glucose (08/26/2017 8:00 PM EST) POC Glucose 142 65 - 199 mg/dL [facility] Comment: Supplemental ranges: <140 mg/dL before meals <180 mg/dL all other times of the day Blood specimen (specimen) 08/26/2017 8:00 PM EST 08/26/2017 8:00 PM EST Yeny Waterman MD POINT OF CARE TEST O RDERAFRANNIE Performing Organization Address City/[facility] Co de Phone Number [facility] [place] [address] * POCT Glucose (08/26/2017 3:15 PM EST) POC Glucose 105 65 - 199 mg/dL [facility] Comment: Supplemental ranges: <140 mg/dL before meals <180 mg/dL all other times of the day Blood specimen (specimen) 08/26/2017 3:15 PM EST 08/26/2017 3:15 PM EST Yeny Waterman MD POINT OF CARE TEST O RDANG [facility] [place] [address] * POCT Glucose (08/26/2017 12:29 PM EST) POC Glucose 88 65 - 199 mg/dL [facility] Comment: Supplemental ranges: <140 mg/dL before meals <180 mg/dL all other times of the day Blood specimen (specimen) 08/26/2017 12:29 PM EST 08/26/2017 12:29 PM EST Yeny Waterman MD POINT OF CARE TEST O JORGE ALBERTO Performing Organization Address City/[facility]/ZIP Co de Phone Number [facility] [place] [address] * POCT urine dipstick (08/26/2017) POC Sp [place] 1.005 1.002 - 1.030 POC pH, UA 7 5.0 - 8.5 POC Leuk, UA neg Negative - Negative POC Nitrite, UA neg Negative - Negative POC Protein, UA neg Negative - Negative mg/dL POC Glucose, UA normal Normal - Normal mg/dL POC Ketone, UA neg Negative - Negative POC Urobil, UA normal 0.2 - 1.0 mg/dL POC Bili, UA neg Negative - Negative POC Blood, UA neg Negative - Negative annabel/uL 08/26/2017 Yeny Waterman MD POINT OF CARE TEST O BENJYERAFRANNIE * POCT Glucose (08/25/2017 8:45 PM EST) POC Glucose 147 65 - 199 mg/dL [facility] Comment: Supplemental ranges: <140 mg/dL before meals <180 mg/dL all other times of the day Blood specimen (specimen) 08/25/2017 8:45 PM EST 08/25/2017 8:45 PM EST Yeny Waterman MD POINT OF CARE TEST O JORGE ALBERTO Performing Organization Address [facility] Co de Phone Number [facility] [place] [address] * POCT Glucose (08/25/2017 2:36 PM EST) POC Glucose 133 65 - 199 mg/dL [facility] Comment: Supplemental ranges: <140 mg/dL before meals <180 mg/dL all other times of the day Blood specimen (specimen) 08/25/2017 2:36 PM EST 08/25/2017 2:36 PM EST Yeny Waterman MD POINT OF CARE TEST O JORGE ALBERTO Performing Organization Address [facility] Co de Phone Number [facility] [place] [address] * POCT Glucose (08/25/2017 12:38 PM EST) POC Glucose 91 65 - 199 mg/dL [facility] Comment: Supplemental ranges: <140 mg/dL before meals <180 mg/dL all other times of the day Blood specimen (specimen) 08/25/2017 12:38 PM EST 08/25/2017 12:38 PM EST Yeny Waterman MD POINT OF CARE TEST O JORGE ALBERTO Performing Organization Address [facility] Co de Phone Number [facility] [place] [address] * POCT Glucose (08/24/2017 8:25 PM EST) POC Glucose 93 65 - 199 mg/dL [facility] Comment: Supplemental ranges: <140 mg/dL before meals <180 mg/dL all other times of the day Blood specimen (specimen) 08/24/2017 8:25 PM EST 08/24/2017 8:25 PM EST Yeny Waterman MD POINT OF CARE TEST O RDANG Performing Organization Address [facility] de Phone Number [facility] [place] [address] * POCT Glucose (08/24/2017 3:13 PM EST) POC Glucose 144 65 - 199 mg/dL [facility] Comment: Supplemental ranges: <140 mg/dL before meals <180 mg/dL all other times of the day Blood specimen (specimen) 08/24/2017 3:13 PM EST 08/24/2017 3:13 PM EST Yeny Waterman MD POINT OF CARE TEST O JORGE ALBERTO Performing Organization Address [facility] Phone Number [facility] [place] [address] * POCT Glucose (08/24/2017 9:58 AM EST) POC Glucose 109 65 - 199 mg/dL [facility] Comment: Supplemental ranges: <140 mg/dL before meals <180 mg/dL all other times of the day Blood specimen (specimen) 08/24/2017 9:58 AM EST 08/24/2017 9:58 AM EST Yeny Waterman MD POINT OF CARE TEST O RDERAFRANNIE Performing Organization Address [facility] de Phone Number [facility] [place] [address] * POCT Glucose (08/23/2017 11:41 PM EST) POC Glucose 102 65 - 199 mg/dL [facility] Comment: Supplemental ranges: <140 mg/dL before meals <180 mg/dL all other times of the day Blood specimen (specimen) 08/23/2017 11:41 PM EST 08/23/2017 11:41 PM EST Yeny Waterman MD POINT OF CARE TEST O RDERABLES Performing Organization Address [facility]/ZIP Co de Phone Number [facility] [place] [address] * POCT Glucose (08/23/2017 3:33 PM EST) POC Glucose 128 65 - 199 mg/dL [facility] Comment: Supplemental ranges: <140 mg/dL before meals <180 mg/dL all other times of the day Blood specimen (specimen) 08/23/2017 3:33 PM EST 08/23/2017 3:33 PM EST Yeny Waterman MD POINT OF CARE TEST O RDERABLES Performing Organization Address [facility] Co de Phone Number [facility] [place] [address] * POCT Glucose (08/23/2017 11:37 AM EST) POC Glucose 124 65 - 199 mg/dL [facility] Comment: Supplemental ranges: <140 mg/dL before meals <180 mg/dL all other times of the day Blood specimen (specimen) 08/23/2017 11:37 AM EST 08/23/2017 11:37 AM EST Yeny Waterman MD POINT OF CARE TEST O RDERABLES Performing Organization Address [facility] Co de Phone Number [facility] [place] [address] * POCT Glucose (08/23/2017 9:44 AM EST) POC Glucose 107 65 - 199 mg/dL [facility] Comment: Supplemental ranges: <140 mg/dL before meals <180 mg/dL all other times of the day Blood specimen (specimen) 08/23/2017 9:44 AM EST 08/23/2017 9:44 AM EST Yeny Waterman MD POINT OF CARE TEST O RDERABLES Performing Organization Address [facility]/State/ZIP Co de Phone Number [facility] [place] [address] * POCT Glucose (08/22/2017 8:18 PM EST) POC Glucose 111 65 - 199 mg/dL [facility] Comment: Supplemental ranges: <140 mg/dL before meals <180 mg/dL all other times of the day Blood specimen (specimen) 08/22/2017 8:18 PM EST 08/22/2017 8:18 PM EST Yeny Waterman MD POINT OF CARE TEST O RDERABLES Performing Organization Address [facility] Co de Phone Number [facility] [place] [address] * POCT Glucose (08/22/2017 2:28 PM EST) POC Glucose 158 65 - 199 mg/dL [facility] Comment: Supplemental ranges: <140 mg/dL before meals <180 mg/dL all other times of the day Blood specimen (specimen) 08/22/2017 2:28 PM EST 08/22/2017 2:28 PM EST Yeny Waterman MD POINT OF CARE TEST O RDERABLES Performing Organization Address [facility] Co de Phone Number [facility] [place] [address] * POCT Glucose (08/22/2017 12:39 PM EST) POC Glucose 83 65 - 199 mg/dL [facility] Comment: Supplemental ranges: <140 mg/dL before meals <180 mg/dL all other times of the day Blood specimen (specimen) 08/22/2017 12:39 PM EST 08/22/2017 12:39 PM EST Yeny Waterman MD POINT OF CARE TEST O RDERABLES Performing Organization Address City/[facility]/ZIP Co de Phone Number [facility] [place] [address] * POCT Glucose (08/21/2017 7:53 PM EST) POC Glucose 105 65 - 199 mg/dL [facility] Comment: Supplemental ranges: <140 mg/dL before meals <180 mg/dL all other times of the day Blood specimen (specimen) 08/21/2017 7:53 PM EST 08/21/2017 7:53 PM EST Yeny Waterman MD POINT OF CARE TEST O RDERABLES [facility] [place] [address] * POCT Glucose (08/21/2017 2:42 PM EST) POC Glucose 130 65 - 199 mg/dL [facility] Comment: Supplemental ranges: <140 mg/dL before meals <180 mg/dL all other times of the day Blood specimen (specimen) 08/21/2017 2:42 PM EST 08/21/2017 2:42 PM EST Yeny Waterman MD POINT OF CARE TEST O RDERABLES Performing Organization Address City/[facility]/ZIP Co de Phone Number [facility] [place] [address] * POCT Glucose (08/21/2017 9:07 AM EST) POC Glucose 73 65 - 199 mg/dL [facility] Comment: Supplemental ranges: <140 mg/dL before meals <180 mg/dL all other times of the day Blood specimen (specimen) 08/21/2017 9:07 AM EST 08/21/2017 9:07 AM EST Yeny Waterman MD POINT OF CARE TEST O RDERABLES [facility] [place] [address] * POCT Glucose (08/20/2017 7:30 PM EST) POC Glucose 162 65 - 199 mg/dL [facility] Comment: Supplemental ranges: <140 mg/dL before meals <180 mg/dL all other times of the day Blood specimen (specimen) 08/20/2017 7:30 PM EST 08/20/2017 7:30 PM EST Yeny Waterman MD POINT OF CARE TEST O RDERAFRANNIE [facility] [place] [address] * POCT Glucose (08/20/2017 1:54 PM EST) POC Glucose 187 65 - 199 mg/dL [facility] Comment: Supplemental ranges: <140 mg/dL before meals <180 mg/dL all other times of the day Blood specimen (specimen) 08/20/2017 1:54 PM EST 08/20/2017 1:54 PM EST Yeny Waterman MD POINT OF CARE TEST O JORGE ALBERTO Performing Organization Address City/[facility]/ZIP Co de Phone Number [facility] [place] [address] * POCT Glucose (08/20/2017 9:04 AM EST) POC Glucose 158 65 - 199 mg/dL [facility] Comment: Supplemental ranges: <140 mg/dL before meals <180 mg/dL all other times of the day Blood specimen (specimen) 08/20/2017 9:04 AM EST 08/20/2017 9:04 AM EST Yeny Waterman MD POINT OF CARE TEST O JORGE ALBERTO [facility] [place] [address] * POCT Glucose (08/19/2017 8:24 PM EST) POC Glucose 141 65 - 199 mg/dL [facility] Comment: Supplemental ranges: <140 mg/dL before meals <180 mg/dL all other times of the day Blood specimen (specimen) 08/19/2017 8:24 PM EST 08/19/2017 8:24 PM EST Yeny Waterman MD POINT OF CARE TEST O RDERAFRANNIE Performing Organization Address [facility]/ZIP Co de Phone Number [facility] [place] [address] * POCT Glucose (08/19/2017 4:01 PM EST) POC Glucose 157 65 - 199 mg/dL [facility] Comment: Supplemental ranges: <140 mg/dL before meals <180 mg/dL all other times of the day Blood specimen (specimen) 08/19/2017 4:01 PM EST 08/19/2017 4:01 PM EST Yeny Waterman MD POINT OF CARE TEST O JORGE ALBERTO Performing Organization Address [facility] Co de Phone Number [facility] [place] [address] * POCT Glucose (08/19/2017 9:55 AM EST) POC Glucose 127 65 - 199 mg/dL [facility] Comment: Supplemental ranges: <140 mg/dL before meals <180 mg/dL all other times of the day Blood specimen (specimen) 08/19/2017 9:55 AM EST 08/19/2017 9:55 AM EST Yeny Waterman MD POINT OF CARE TEST O RDERAFRANNIE Performing Organization Address [facility] Co de Phone Number [facility] [place] [address] * POCT Glucose (08/18/2017 11:52 PM EST) POC Glucose 179 65 - 199 mg/dL [facility] Comment: Supplemental ranges: <140 mg/dL before meals <180 mg/dL all other times of the day Blood specimen (specimen) 08/18/2017 11:52 PM EST 08/18/2017 11:52 PM EST Yeny Waterman MD POINT OF CARE TEST O RDERAFRANNIE Performing Organization Address City/[facility] Co de Phone Number [facility] [place] [address] * POCT Glucose (08/18/2017 7:38 PM EST) POC Glucose 153 65 - 199 mg/dL [facility] Comment: Supplemental ranges: <140 mg/dL before meals <180 mg/dL all other times of the day Blood specimen (specimen) 08/18/2017 7:38 PM EST 08/18/2017 7:38 PM EST Yeny Waterman MD POINT OF CARE TEST O BNEJYERAFRANNIE Performing Organization Address [facility] Co de Phone Number [facility] [place] [address] * POCT Glucose (08/18/2017 3:42 PM EST) POC Glucose 93 65 - 199 mg/dL [facility] Comment: Supplemental ranges: <140 mg/dL before meals <180 mg/dL all other times of the day Blood specimen (specimen) 08/18/2017 3:42 PM EST 08/18/2017 3:42 PM EST Yeny Waterman MD POINT OF CARE TEST O RDERAFRANNIE Performing Organization Address City/[facility] Co de Phone Number [facility] [place] [address] * POCT Glucose (08/18/2017 8:43 AM EST) POC Glucose 72 65 - 199 mg/dL [facility] Comment: Supplemental ranges: <140 mg/dL before meals <180 mg/dL all other times of the day Blood specimen (specimen) 08/18/2017 8:43 AM EST 08/18/2017 8:43 AM EST Yeny Waterman MD POINT OF CARE TEST O JORGE ALBERTO Performing Organization Address [facility] Co de Phone Number [facility] [place] [address] * POCT Glucose (08/17/2017 8:22 PM EST) POC Glucose 104 65 - 199 mg/dL [facility] Comment: Supplemental ranges: <140 mg/dL before meals <180 mg/dL all other times of the day Blood specimen (specimen) 08/17/2017 8:22 PM EST 08/17/2017 8:22 PM EST Yeny Waterman MD POINT OF CARE TEST O JORGE ALBERTO Performing Organization Address [facility] Co de Phone Number [facility] [place] [address] * POCT Glucose (08/17/2017 1:37 PM EST) POC Glucose 167 65 - 199 mg/dL [facility] Comment: Supplemental ranges: <140 mg/dL before meals <180 mg/dL all other times of the day Blood specimen (specimen) 08/17/2017 1:37 PM EST 08/17/2017 1:37 PM EST Yeny Waterman MD POINT OF CARE TEST O JORGE ALBERTO Performing Organization Address [facility] Co de Phone Number [facility] [place] [address] * POCT Glucose (08/17/2017 12:04 PM EST) POC Glucose 81 65 - 199 mg/dL [facility] Comment: Supplemental ranges: <140 mg/dL before meals <180 mg/dL all other times of the day Blood specimen (specimen) 08/17/2017 12:04 PM EST 08/17/2017 12:04 PM EST Yeny Waterman MD POINT OF CARE TEST O RDANG Performing Organization Address [facility] de Phone Number [facility] [place] [address] * POCT Glucose (08/16/2017 6:52 PM EST) POC Glucose 128 65 - 199 mg/dL [facility] Comment: Supplemental ranges: <140 mg/dL before meals <180 mg/dL all other times of the day Blood specimen (specimen) 08/16/2017 6:52 PM EST 08/16/2017 6:52 PM EST Yeny Waterman MD POINT OF CARE TEST O JORGE ALBERTO Performing Organization Address [facility] Phone Number [facility] [place] [address] * POCT Glucose (08/16/2017 12:08 PM EST) POC Glucose 98 65 - 199 mg/dL [facility] Comment: Supplemental ranges: <140 mg/dL before meals <180 mg/dL all other times of the day Blood specimen (specimen) 08/16/2017 12:08 PM EST 08/16/2017 12:08 PM EST Yeny Waterman MD POINT OF CARE TEST O RDERAFRANNIE Performing Organization Address [facility] de Phone Number [facility] [place] [address] * POCT Glucose (08/16/2017 10:15 AM EST) POC Glucose 90 65 - 199 mg/dL [facility] Comment: Supplemental ranges: <140 mg/dL before meals <180 mg/dL all other times of the day Blood specimen (specimen) 08/16/2017 10:15 AM EST 08/16/2017 10:15 AM EST Yeny Waterman MD POINT OF CARE TEST O RDERABLES Performing Organization Address [facility]/ZIP Co de Phone Number [facility] [place] [address] * POCT Glucose (08/15/2017 8:24 PM EST) POC Glucose 121 65 - 199 mg/dL [facility] Comment: Supplemental ranges: <140 mg/dL before meals <180 mg/dL all other times of the day Blood specimen (specimen) 08/15/2017 8:24 PM EST 08/15/2017 8:24 PM EST Yeny Waterman MD POINT OF CARE TEST O RDERABLES Performing Organization Address [facility] Co de Phone Number [facility] [place] [address] * POCT Glucose (08/15/2017 3:44 PM EST) POC Glucose 129 65 - 199 mg/dL [facility] Comment: Supplemental ranges: <140 mg/dL before meals <180 mg/dL all other times of the day Blood specimen (specimen) 08/15/2017 3:44 PM EST 08/15/2017 3:44 PM EST Yeny Waterman MD POINT OF CARE TEST O RDERABLES Performing Organization Address [facility] Co de Phone Number [facility] [place] [address] * POCT Glucose (08/15/2017 12:19 PM EST) POC Glucose 91 65 - 199 mg/dL [facility] Comment: Supplemental ranges: <140 mg/dL before meals <180 mg/dL all other times of the day Blood specimen (specimen) 08/15/2017 12:19 PM EST 08/15/2017 12:19 PM EST Yeny Waterman MD POINT OF CARE TEST O RDERABLES [facility] [place] [address] * POCT Glucose (08/14/2017 8:37 PM EST) POC Glucose 133 65 - 199 mg/dL [facility] Comment: Supplemental ranges: <140 mg/dL before meals <180 mg/dL all other times of the day Blood specimen (specimen) 08/14/2017 8:37 PM EST 08/14/2017 8:37 PM EST Yeny Waterman MD POINT OF CARE TEST O RDERABLES Performing Organization Address [facility] Co de Phone Number [facility] [place] [address] * POCT Glucose (08/14/2017 11:47 AM EST) POC Glucose 76 65 - 199 mg/dL [facility] Comment: Supplemental ranges: <140 mg/dL before meals <180 mg/dL all other times of the day Blood specimen (specimen) 08/14/2017 11:47 AM EST 08/14/2017 11:47 AM EST Yeny Waterman MD POINT OF CARE TEST O RDERABLES Performing Organization Address [facility] Co de Phone Number [facility] [place] [address] * POCT Glucose (08/13/2017 8:05 PM EST) POC Glucose 121 65 - 199 mg/dL [facility] Comment: Supplemental ranges: <140 mg/dL before meals <180 mg/dL all other times of the day Blood specimen (specimen) 08/13/2017 8:05 PM EST 08/13/2017 8:05 PM EST Yeny Waterman MD POINT OF CARE TEST O RDERABLES Performing Organization Address [facility]/ZIP Co de Phone Number [facility] [place] [address] * POCT Glucose (08/13/2017 2:37 PM EST) POC Glucose 144 65 - 199 mg/dL [facility] Comment: Supplemental ranges: <140 mg/dL before meals <180 mg/dL all other times of the day Blood specimen (specimen) 08/13/2017 2:37 PM EST 08/13/2017 2:37 PM EST Yeny Waterman MD POINT OF CARE TEST O RDERABLES [facility] [place] [address] * POCT Glucose (08/13/2017 12:52 PM EST) POC Glucose 76 65 - 199 mg/dL [facility] Comment: Supplemental ranges: <140 mg/dL before meals <180 mg/dL all other times of the day Blood specimen (specimen) 08/13/2017 12:52 PM EST 08/13/2017 12:52 PM EST Yeny Waterman MD POINT OF CARE TEST O RDERABLES Performing Organization Address [facility]/ZIP Co de Phone Number [facility] [place] [address] * POCT Glucose (08/12/2017 8:33 PM EST) POC Glucose 129 65 - 199 mg/dL [facility] Comment: Supplemental ranges: <140 mg/dL before meals <180 mg/dL all other times of the day Blood specimen (specimen) 08/12/2017 8:33 PM EST 08/12/2017 8:33 PM EST Yeny Waterman MD POINT OF CARE TEST O RDERABLES [facility] [place] [address] * POCT Glucose (08/12/2017 2:03 PM EST) POC Glucose 119 65 - 199 mg/dL [facility] Comment: Supplemental ranges: <140 mg/dL before meals <180 mg/dL all other times of the day Blood specimen (specimen) 08/12/2017 2:03 PM EST 08/12/2017 2:03 PM EST Yeny Waterman MD POINT OF CARE TEST O RDERAFRANNIE [facility] [place] [address] * POCT Glucose (08/12/2017 11:43 AM EST) POC Glucose 98 65 - 199 mg/dL [facility] Comment: Supplemental ranges: <140 mg/dL before meals <180 mg/dL all other times of the day Blood specimen (specimen) 08/12/2017 11:43 AM EST 08/12/2017 11:43 AM EST Yeny Waterman MD POINT OF CARE TEST O JORGE ALBERTO Performing Organization Address [facility]/ZIP Co de Phone Number [facility] [place] [address] * POCT Glucose (08/11/2017 7:58 PM EST) POC Glucose 120 65 - 199 mg/dL [facility] Comment: Supplemental ranges: <140 mg/dL before meals <180 mg/dL all other times of the day Blood specimen (specimen) 08/11/2017 7:58 PM EST 08/11/2017 7:58 PM EST Yeny Waterman MD POINT OF CARE TEST O JORGE ALBERTO [facility] [place] [address] * POCT Glucose (08/11/2017 11:20 AM EST) POC Glucose 95 65 - 199 mg/dL [facility] Comment: Supplemental ranges: <140 mg/dL before meals <180 mg/dL all other times of the day Blood specimen (specimen) 08/11/2017 11:20 AM EST 08/11/2017 11:20 AM EST Yeny Waterman MD POINT OF CARE TEST O RDERAFRANNIE Performing Organization Address [facility] Co de Phone Number [facility] [place] [address] * POCT Glucose (08/11/2017 10:08 AM EST) POC Glucose 102 65 - 199 mg/dL [facility] Comment: Supplemental ranges: <140 mg/dL before meals <180 mg/dL all other times of the day Blood specimen (specimen) 08/11/2017 10:08 AM EST 08/11/2017 10:08 AM EST Yeny Waterman MD POINT OF CARE TEST O JORGE ALBERTO Performing Organization Address [facility] Co de Phone Number [facility] [place] [address] * US OB Follow Up Evaluation (08/11/2017 9:46 AM EST) Anatomical Region Laterality Modality Pelvis, Abdomen Ultrasound 08/11/2017 9:26 AM EST Impressions 08/11/2017 10:11 AM EST 3rd Trimester Summary Single intrauterine with a gestational age of 29w 4d based on LMP ??(01/16/17) Composite age based on the current ultrasound alone is 28w 6d. Estimated weight corresponds to the 64th percentile for 29w 4d. Current growth parameters are consistent with prior dating indicating normal growth. Amniotic fluid volume is Normal transvaginal done due to vasa previa and low lying placenta seen previously. Low lying placenta and vasa previa seen again. Anatomical survey is limited due to the late gestational age. ?Emanuel Barrett MD Electronically Signed Final Report ?? 08/11/2017 10:10 am Narrative 08/11/2017 10:11 AM EST OBSTETRICS REPORT ? (Signed Final 08/11/2017 10:10 am) PATIENT INFO: ID #: ? [id number] ?: ??[birth year] (27 yrs) Name: ? PAM Lopez ?Visit Date: 08/11/2017 09:26 am ? JAYA PERFORMED BY: Performed By: ? Dhara Hicks RDMS Attending: ?Sandoval TAY, Emanuel Arreola. Referred By: ?EMANUEL BARRETT Location: ? [facility] SERVICE(S) PROVIDED: ??UOBFOL - Efw - Growth - [place] - [id number] ? [id number] ??UOBTV - Viability - Cervical Length -Transvaginal - ?? [id number] ??[id number] INDICATIONS: ??29 weeks gestation of ?Z3A.29 ??27 yo at 29w2d with history of ??vasa previa, checking for resolution of vasa ??previa OB HISTORY: Blood ?B+ ?Height: ??4'11 ?? Weight (lb): 236 ? BMI: ??47.66 Type: EVALUATION: Num Of Fetuses: ? 1 Heart ? 159 Rate(bpm): Cardiac Activity: ?? Observed, normal rhythm Presentation: ? Cephalic Placenta: ? Posterior Low lying, VASA PREVIA P. Cord Insertion: ??Not visualized Amniotic Fluid SHERI FV: ?Normal SHERI Sum(cm) ? Largest Pocket(cm) 11.44 ? 4.69 RUQ(cm) ? RLQ(cm) ? LUQ(cm) ?LLQ(cm) 0.0 ? 3.15 ?4.69 ? 3.6 --------- BIOMETRY: --------- BPD: ?69.7 ??mm ? G.Age: ?? 28w 0d ? 6 ??% OFD: ?92.1 ??mm HC: ?261.2 ??mm ? G.Age: ?? 28w 3d ? < 3 ??% AC: ?247.1 ??mm ? G.Age: ?? 28w 6d ?26 ??% FL: ? 57.3 ??mm ? G.Age: ?? 30w 0d ?49 ??% HUM: ?51.8 ??mm ? G.Age: ?? 30w 2d ?62 ??% CER: ?36.0 ??mm ? G.Age: ?? 31w 0d ?71 ??% CM: ?8.3 ??mm HUM: ?51.3 ??mm ? G.Age: ?? 30w 0d ?57 ??% FL: ? 56.1 ??mm ? G.Age: ?? 29w 4d ?34 ??% CI: ?75.7 ??% ? 70 - 86 FL/HC: ? 21.9 ??% ? 19.2 - 21.4 HC/AC: ? 1.06 ?0.99 - 1.21 FL/BPD: ?82.2 ??% ? 71 - 87 FL/AC: ? 23.2 ??% ? 20 - 24 Est. FW: ?1349 ?? gm ?3 lb ?64 ??% GESTATIONAL AGE: LMP: ? 29w 4d ?Date: ??01/16/17 ? CHITRA: ?? 10/23/17 U/S Today: ? 28w 6d ?CHITRA: ?? 10/28/17 Best: ?29w 4d ?? Det. By: ??LMP ??(01/16/17) ?CHITRA: ?? 10/23/17 -------- ANATOMY: -------- Cranium: ? Visualized Cavum: ? Limited views Ventricles: ?Limited views Choroid Plexus: ?Limited views Cerebellum: ?Limited views Posterior Fossa: ? Limited views Nuchal Fold: ? Not evaluated at this gestational age Face: ?Limited views Heart: ? Limited Views RVOT: ?Not Visualized LVOT: ?Not Visualized Diaphragm: ? Limited views Stomach: ? Visualized Abdomen: ? Limited Views Abdominal Wall: ?Limited views Cord Vessels: ?Limited Views Kidneys: ? Limited views Bladder: ? Visualized Spine: ? Limited views Upper Extremities: ? Limited views Lower Extremities: ? Limited views CERVIX UTERUS ADNEXA: Left Ovary Not visualized Right Ovary Not visualized Procedure Note Emanuel Barrett MD - 08/11/2017 OBSTETRICS REPORT (Signed Final 08/11/2017 10:10 am) PATIENT INFO: ID #: [id number] : [birth year] (27 yrs) Name: PAM Lopez Visit Date: 08/11/2017 09:26 am JAYA PERFORMED BY: Performed By: Dhara Hicks RDMS Attending: Emanuel Barrett MD Referred By: EMANUEL BARRETT Location: [facility] SERVICE(S) PROVIDED: UOBFOL - Efw - Growth - [place] - [id number] UOBTV - Viability - Cervical Length -Transvaginal - [id number] INDICATIONS: 29 weeks gestation of Z3A.29 27 yo at 29w2d with history of vasa previa, checking for resolution of vasa previa OB HISTORY: Blood B+ Height: 4'11 Weight (lb): 236 BMI: 47.66 Type: EVALUATION: Num Of Fetuses: 1 Heart 159 Rate(bpm): Cardiac Activity: Observed, normal rhythm Presentation: Cephalic Placenta: Posterior Low lying, VASA PREVIA P. Cord Insertion: Not visualized Amniotic Fluid SHERI FV: Normal SHERI Sum(cm) Largest Pocket(cm) 11.44 4.69 RUQ(cm) RLQ(cm) LUQ(cm) LLQ(cm) 0.0 3.15 4.69 3.6 --------- BIOMETRY: --------- BPD: 69.7 mm G.Age: 28w 0d 6 % OFD: 92.1 mm HC: 261.2 mm G.Age: 28w 3d < 3 % AC: 247.1 mm G.Age: 28w 6d 26 % FL: 57.3 mm G.Age: 30w 0d 49 % HUM: 51.8 mm G.Age: 30w 2d 62 % CER: 36.0 mm G.Age: 31w 0d 71 % CM: 8.3 mm HUM: 51.3 mm G.Age: 30w 0d 57 % FL: 56.1 mm G.Age: 29w 4d 34 % CI: 75.7 % 70 - 86 FL/HC: 21.9 % 19.2 - 21.4 HC/AC: 1.06 0.99 - 1.21 FL/BPD: 82.2 % 71 - 87 FL/AC: 23.2 % 20 - 24 Est. FW: 1349 gm 3 lb 64 % GESTATIONAL AGE: LMP: 29w 4d Date: 01/16/17 CHITRA: 10/23/17 U/S Today: 28w 6d CHITRA: 10/28/17 Best: 29w 4d Det. By: LMP (01/16/17) CHITRA: 10/23/17 -------- ANATOMY: -------- Cranium: Visualized Cavum: Limited views Ventricles: Limited views Choroid Plexus: Limited views Cerebellum: Limited views Posterior Fossa: Limited views Nuchal Fold: Not evaluated at this gestational age Face: Limited views Heart: Limited Views RVOT: Not Visualized LVOT: Not Visualized Diaphragm: Limited views Stomach: Visualized Abdomen: Limited Views Abdominal Wall: Limited views Cord Vessels: Limited Views Kidneys: Limited views Bladder: Visualized Spine: Limited views Upper Extremities: Limited views Lower Extremities: Limited views CERVIX UTERUS ADNEXA: Left Ovary Not visualized Right Ovary Not visualized IMPRESSION 3rd Trimester Summary Single intrauterine with a gestational age of 29w 4d based on LMP (01/16/17) Composite age based on the current ultrasound alone is 28w 6d. Estimated weight corresponds to the 64th percentile for 29w 4d. Current growth parameters are consistent with prior dating indicating normal growth. Amniotic fluid volume is Normal transvaginal done due to vasa previa and low lying placenta seen previously. Low lying placenta and vasa previa seen again. Anatomical survey is limited due to the late gestational age. Emanuel Barrett MD Electronically Signed Final Report 08/11/2017 10:10 am Emanuel Barrett MD IMG US OB ORDERABL ES * POCT Glucose (08/10/2017 6:41 PM EST) POC Glucose 141 65 - 199 mg/dL [facility] Comment: Supplemental ranges: <140 mg/dL before meals <180 mg/dL all other times of the day Blood specimen (specimen) 08/10/2017 6:41 PM EST 08/10/2017 6:41 PM EST Yeny Waterman MD POINT OF CARE TEST O JORGE ALBERTO Performing Organization Address [facility] Co de Phone Number [facility] [place] [address] * POCT Glucose (08/10/2017 1:11 PM EST) POC Glucose 150 65 - 199 mg/dL [facility] Comment: Supplemental ranges: <140 mg/dL before meals <180 mg/dL all other times of the day Blood specimen (specimen) 08/10/2017 1:11 PM EST 08/10/2017 1:11 PM EST Yeny Waterman MD POINT OF CARE TEST O RDERAFRANNIE Performing Organization Address [facility]/ZIP Co de Phone Number [facility] [place] [address] * POCT Glucose (08/10/2017 11:40 AM EST) POC Glucose 95 65 - 199 mg/dL [facility] Comment: Supplemental ranges: <140 mg/dL before meals <180 mg/dL all other times of the day Blood specimen (specimen) 08/10/2017 11:40 AM EST 08/10/2017 11:40 AM EST Yeny Waterman MD POINT OF CARE TEST O RDERAFRANNIE Performing Organization Address [facility]/ZIP Co de Phone Number [facility] [place] [address] * POCT Glucose (08/09/2017 6:58 PM EST) POC Glucose 139 65 - 199 mg/dL [facility] Comment: Supplemental ranges: <140 mg/dL before meals <180 mg/dL all other times of the day Blood specimen (specimen) 08/09/2017 6:58 PM EST 08/09/2017 6:58 PM EST Yeny Waterman MD POINT OF CARE TEST O RDERAFRANNIE Performing Organization Address [facility]/ZIP Co de Phone Number [facility] [place] [address] * POCT Glucose (08/09/2017 10:58 AM EST) POC Glucose 97 65 - 199 mg/dL [facility] Comment: Supplemental ranges: <140 mg/dL before meals <180 mg/dL all other times of the day Blood specimen (specimen) 08/09/2017 10:58 AM EST 08/09/2017 10:58 AM EST Yeny Waterman MD POINT OF CARE TEST O RDERAFRANNIE Performing Organization Address [facility] Co de Phone Number [facility] [place] [address] * POCT Glucose (08/08/2017 9:51 PM EST) POC Glucose 140 65 - 199 mg/dL [facility] Comment: Supplemental ranges: <140 mg/dL before meals <180 mg/dL all other times of the day Blood specimen (specimen) 08/08/2017 9:51 PM EST 08/08/2017 9:51 PM EST Yeny Waterman MD POINT OF CARE TEST O JORGE ALBERTO Performing Organization Address [facility] Co de Phone Number [facility] [place] [address] * POCT Glucose (08/08/2017 2:09 PM EST) POC Glucose 138 65 - 199 mg/dL [facility] Comment: Supplemental ranges: <140 mg/dL before meals <180 mg/dL all other times of the day Blood specimen (specimen) 08/08/2017 2:09 PM EST 08/08/2017 2:09 PM EST Yeny Waterman MD POINT OF CARE TEST O JORGE ALBERTO Performing Organization Address [facility] Co de Phone Number [facility] [place] [address] * POCT Glucose (08/08/2017 11:56 AM EST) POC Glucose 85 65 - 199 mg/dL [facility] Comment: Supplemental ranges: <140 mg/dL before meals <180 mg/dL all other times of the day Blood specimen (specimen) 08/08/2017 11:56 AM EST 08/08/2017 11:56 AM EST Yeny Waterman MD POINT OF CARE TEST O JORGE ALBERTO Performing Organization Address [facility] Co de Phone Number [facility] [place] [address] * POCT Glucose (08/07/2017 9:41 PM EST) POC Glucose 113 65 - 199 mg/dL [facility] Comment: Supplemental ranges: <140 mg/dL before meals <180 mg/dL all other times of the day Blood specimen (specimen) 08/07/2017 9:41 PM EST 08/07/2017 9:41 PM EST Yeny Waterman MD POINT OF CARE TEST O JORGE ALBERTO Performing Organization Address [facility] de Phone Number [facility] [place] [address] * POCT Glucose (08/07/2017 3:04 PM EST) POC Glucose 152 65 - 199 mg/dL [facility] Comment: Supplemental ranges: <140 mg/dL before meals <180 mg/dL all other times of the day Blood specimen (specimen) 08/07/2017 3:04 PM EST 08/07/2017 3:04 PM EST Yeny Waterman MD POINT OF CARE TEST O JORGE ALBERTO Performing Organization Address [facility] de Phone Number [facility] [place] [address] * POCT Glucose (08/07/2017 10:04 AM EST) POC Glucose 87 65 - 199 mg/dL [facility] Comment: Supplemental ranges: <140 mg/dL before meals <180 mg/dL all other times of the day Blood specimen (specimen) 08/07/2017 10:04 AM EST 08/07/2017 10:04 AM EST Yeny Waterman MD POINT OF CARE TEST O JORGE ALBERTO Performing Organization Address [facility] de Phone Number [facility] [place] [address] * POCT Glucose (08/06/2017 8:30 PM EST) POC Glucose 118 65 - 199 mg/dL [facility] Comment: Supplemental ranges: <140 mg/dL before meals <180 mg/dL all other times of the day Blood specimen (specimen) 08/06/2017 8:30 PM EST 08/06/2017 8:30 PM EST Yeny Waterman MD POINT OF CARE TEST O RDERABLES Performing Organization Address [facility] Co de Phone Number [facility] [place] [address] * POCT Glucose (08/06/2017 3:20 PM EST) POC Glucose 146 65 - 199 mg/dL [facility] Comment: Supplemental ranges: <140 mg/dL before meals <180 mg/dL all other times of the day Blood specimen (specimen) 08/06/2017 3:20 PM EST 08/06/2017 3:20 PM EST Yeny Waterman MD POINT OF CARE TEST O RDERAFRANNIE Performing Organization Address [facility] Co de Phone Number [facility] [place] [address] * POCT Glucose (08/06/2017 11:50 AM EST) POC Glucose 136 65 - 199 mg/dL [facility] Comment: Supplemental ranges: <140 mg/dL before meals <180 mg/dL all other times of the day Blood specimen (specimen) 08/06/2017 11:50 AM EST 08/06/2017 11:50 AM EST Yeny Waterman MD POINT OF CARE TEST O RDERAFRANNIE Performing Organization Address [facility] Co de Phone Number [facility] [place] [address] * POCT Glucose (08/06/2017 9:55 AM EST) POC Glucose 89 65 - 199 mg/dL [facility] Comment: Supplemental ranges: <140 mg/dL before meals <180 mg/dL all other times of the day Blood specimen (specimen) 08/06/2017 9:55 AM EST 08/06/2017 9:55 AM EST Yeny Waterman MD POINT OF CARE TEST O RDERABLES Performing Organization Address [facility]/ZIP Co de Phone Number [facility] [place] [address] * POCT Glucose (08/05/2017 7:59 PM EST) POC Glucose 102 65 - 199 mg/dL [facility] Comment: Supplemental ranges: <140 mg/dL before meals <180 mg/dL all other times of the day Blood specimen (specimen) 08/05/2017 7:59 PM EST 08/05/2017 7:59 PM EST Yeny Waterman MD POINT OF CARE TEST O RDERABLES Performing Organization Address [facility] Co de Phone Number [facility] [place] [address] * POCT Glucose (08/05/2017 11:33 AM EST) POC Glucose 140 65 - 199 mg/dL [facility] Comment: Supplemental ranges: <140 mg/dL before meals <180 mg/dL all other times of the day Blood specimen (specimen) 08/05/2017 11:33 AM EST 08/05/2017 11:33 AM EST Yeny Watreman MD POINT OF CARE TEST O RDERABLES Performing Organization Address [facility] Co de Phone Number [facility] [place] [address] * POCT Glucose (08/05/2017 7:36 AM EST) POC Glucose 83 65 - 199 mg/dL [facility] LABORATORY Comment: Supplemental ranges: <140 mg/dL before meals <180 mg/dL all other times of the day Blood specimen (specimen) 08/05/2017 7:36 AM EST 08/05/2017 7:36 AM EST Yeny Waterman MD POINT OF CARE TEST O RDERABLES Performing Organization Address City/[facility]/ZIP Co de Phone Number [facility] [place] [address] * POCT Glucose (08/04/2017 8:27 PM EST) POC Glucose 116 65 - 199 mg/dL [facility] Comment: Supplemental ranges: <140 mg/dL before meals <180 mg/dL all other times of the day Blood specimen (specimen) 08/04/2017 8:27 PM EST 08/04/2017 8:27 PM EST Yeny Waterman MD POINT OF CARE TEST O RDERABLES [facility] [place] [address] * POCT Glucose (08/04/2017 7:25 PM EST) POC Glucose 169 65 - 199 mg/dL [facility] Comment: Supplemental ranges: <140 mg/dL before meals <180 mg/dL all other times of the day Blood specimen (specimen) 08/04/2017 7:25 PM EST 08/04/2017 7:25 PM EST Yeny Waterman MD POINT OF CARE TEST O RDERABLES [facility] [place] [address] * POCT Glucose (08/04/2017 3:04 PM EST) POC Glucose 122 65 - 199 mg/dL [facility] Comment: Supplemental ranges: <140 mg/dL before meals <180 mg/dL all other times of the day Blood specimen (specimen) 08/04/2017 3:04 PM EST 08/04/2017 3:04 PM EST Yeny Waterman MD POINT OF CARE TEST O RDERABLES [facility] [place] [address] * POCT Glucose (08/04/2017 10:59 AM EST) POC Glucose 106 65 - 199 mg/dL [facility] Comment: Supplemental ranges: <140 mg/dL before meals <180 mg/dL all other times of the day Blood specimen (specimen) 08/04/2017 10:59 AM EST 08/04/2017 10:59 AM EST Yeny Waterman MD POINT OF CARE TEST O JORGE ALBERTO [facility] [place] [address] * POCT Glucose (08/04/2017 9:06 AM EST) POC Glucose 85 65 - 199 mg/dL [facility] Comment: Supplemental ranges: <140 mg/dL before meals <180 mg/dL all other times of the day Blood specimen (specimen) 08/04/2017 9:06 AM EST 08/04/2017 9:06 AM EST Yeny Waterman MD POINT OF CARE TEST O JORGE ALBERTO [facility] [place] [address] * POCT Glucose (08/03/2017 7:24 PM EST) POC Glucose 118 65 - 199 mg/dL [facility] Comment: Supplemental ranges: <140 mg/dL before meals <180 mg/dL all other times of the day Blood specimen (specimen) 08/03/2017 7:24 PM EST 08/03/2017 7:24 PM EST Yeny Waterman MD POINT OF CARE TEST O JORGE ALBERTO [facility] [place] [address] * POCT Glucose (08/03/2017 11:22 AM EST) POC Glucose 106 65 - 199 mg/dL [facility] Comment: Supplemental ranges: <140 mg/dL before meals <180 mg/dL all other times of the day Blood specimen (specimen) 08/03/2017 11:22 AM EST 08/03/2017 11:22 AM EST Li Sepulveda MD POINT OF CARE TEST O JORGE ALBERTO Performing Organization Address [facility] Co de Phone Number [facility] [place] [address] * POCT Glucose (08/03/2017 8:52 AM EST) POC Glucose 86 65 - 199 mg/dL [facility] Comment: Supplemental ranges: <140 mg/dL before meals <180 mg/dL all other times of the day Blood specimen (specimen) 08/03/2017 8:52 AM EST 08/03/2017 8:52 AM EST Li Sepulveda MD POINT OF CARE TEST O JORGE ALBERTO Performing Organization Address [facility] Co de Phone Number [facility] [place] [address] * POCT Glucose (08/02/2017 6:59 PM EST) POC Glucose 141 65 - 199 mg/dL [facility] Comment: Supplemental ranges: <140 mg/dL before meals <180 mg/dL all other times of the day Blood specimen (specimen) 08/02/2017 6:59 PM EST 08/02/2017 6:59 PM EST Li Sepulveda MD POINT OF CARE TEST O JORGE ALBERTO Performing Organization Address City/[facility] Co de Phone Number [facility] [place] [address] * POCT Glucose (08/02/2017 3:42 PM EST) POC Glucose 138 65 - 199 mg/dL [facility] Comment: Supplemental ranges: <140 mg/dL before meals <180 mg/dL all other times of the day Blood specimen (specimen) 08/02/2017 3:42 PM EST 08/02/2017 3:42 PM EST Li Sepulveda MD POINT OF CARE TEST O RDERAFRANNIE Performing Organization Address [facility] Co de Phone Number [facility] [place] [address] * POCT Glucose (08/02/2017 11:58 AM EST) POC Glucose 128 65 - 199 mg/dL [facility] Comment: Supplemental ranges: <140 mg/dL before meals <180 mg/dL all other times of the day Blood specimen (specimen) 08/02/2017 11:58 AM EST 08/02/2017 11:58 AM EST Li Sepulveda MD POINT OF CARE TEST O JORGE ALBERTO Performing Organization Address [facility] Co de Phone Number [facility] [place] [address] * POCT Glucose (08/02/2017 8:01 AM EST) POC Glucose 81 65 - 199 mg/dL [facility] Comment: Supplemental ranges: <140 mg/dL before meals <180 mg/dL all other times of the day Blood specimen (specimen) 08/02/2017 8:01 AM EST 08/02/2017 8:01 AM EST Li Sepulveda MD POINT OF CARE TEST O RDERAFRANNIE Performing Organization Address City/[facility] Co de Phone Number [facility] [place] [address] * POCT Glucose (08/01/2017 7:58 PM EST) POC Glucose 102 65 - 199 mg/dL [facility] Comment: Supplemental ranges: <140 mg/dL before meals <180 mg/dL all other times of the day Blood specimen (specimen) 08/01/2017 7:58 PM EST 08/01/2017 7:58 PM EST Li Sepulveda MD POINT OF CARE TEST O JORGE ALBERTO Performing Organization Address [facility] Co de Phone Number [facility] [place] [address] * POCT Glucose (08/01/2017 3:29 PM EST) POC Glucose 124 65 - 199 mg/dL [facility] Comment: Supplemental ranges: <140 mg/dL before meals <180 mg/dL all other times of the day Blood specimen (specimen) 08/01/2017 3:29 PM EST 08/01/2017 3:29 PM EST Li Sepulveda MD POINT OF CARE TEST Yee AZUL Performing Organization Address [facility] de Phone Number [facility] [place] [address] * POCT Glucose (08/01/2017 10:57 AM EST) POC Glucose 104 65 - 199 mg/dL [facility] Comment: Supplemental ranges: <140 mg/dL before meals <180 mg/dL all other times of the day Blood specimen (specimen) 08/01/2017 10:57 AM EST 08/01/2017 10:57 AM EST Li Sepulveda MD POINT OF CARE TEST O JORGE ALBERTO Performing Organization Address [facility] Co de Phone Number [facility] [place] [address] * POCT Glucose (08/01/2017 6:08 AM EST) POC Glucose 114 65 - 199 mg/dL [facility] Comment: Supplemental ranges: <140 mg/dL before meals <180 mg/dL all other times of the day Blood specimen (specimen) 08/01/2017 6:08 AM EST 08/01/2017 6:08 AM EST Li Sepulveda MD POINT OF CARE TEST O JORGE ALBERTO Performing Organization Address [facility] Phone Number [facility] [place] [address] * POCT Glucose (07/31/2017 7:38 PM EST) POC Glucose 129 65 - 199 mg/dL [facility] Comment: Supplemental ranges: <140 mg/dL before meals <180 mg/dL all other times of the day Blood specimen (specimen) 07/31/2017 7:38 PM EST 07/31/2017 7:38 PM EST Li Sepulveda MD POINT OF CARE TEST O JORGE ALBERTO Performing Organization Address [facility] Phone Number [facility] [place] [address] * POCT Glucose (07/31/2017 4:34 PM EST) POC Glucose 152 65 - 199 mg/dL [facility] Comment: Supplemental ranges: <140 mg/dL before meals <180 mg/dL all other times of the day Blood specimen (specimen) 07/31/2017 4:34 PM EST 07/31/2017 4:34 PM EST Li Sepulveda MD POINT OF CARE TEST O JORGE ALBERTO Performing Organization Address [facility] Phone Number [facility] [place] [address] * POCT Glucose (07/31/2017 2:10 PM EST) POC Glucose 89 65 - 199 mg/dL [facility] Comment: Supplemental ranges: <140 mg/dL before meals <180 mg/dL all other times of the day Blood specimen (specimen) 07/31/2017 2:10 PM EST 07/31/2017 2:10 PM EST Li Sepulveda MD POINT OF CARE TEST O RDERAFRANNIE Performing Organization Address [facility] Co de Phone Number [facility] [place] [address] * POCT Glucose (07/31/2017 11:09 AM EST) POC Glucose 152 65 - 199 mg/dL [facility] Comment: Supplemental ranges: <140 mg/dL before meals <180 mg/dL all other times of the day Blood specimen (specimen) 07/31/2017 11:09 AM EST 07/31/2017 11:09 AM EST Li Sepulveda MD POINT OF CARE TEST O JORGE ALBERTO Performing Organization Address [facility] de Phone Number [facility] [place] [address] * POCT Glucose (07/31/2017 6:15 AM EST) POC Glucose 95 65 - 199 mg/dL [facility] Comment: Supplemental ranges: <140 mg/dL before meals <180 mg/dL all other times of the day Blood specimen (specimen) 07/31/2017 6:15 AM EST 07/31/2017 6:15 AM EST Li Sepulveda MD POINT OF CARE TEST O RDERAFRANNIE Performing Organization Address [facility] Co de Phone Number [facility] [place] [address] * POCT Glucose (07/31/2017 2:19 AM EST) POC Glucose 127 65 - 199 mg/dL [facility] Comment: Supplemental ranges: <140 mg/dL before meals <180 mg/dL all other times of the day Blood specimen (specimen) 07/31/2017 2:19 AM EST 07/31/2017 2:19 AM EST Li Sepulveda MD POINT OF CARE TEST O RDANG Performing Organization Address [facility] Co de Phone Number [facility] [place] [address] * POCT Glucose (07/30/2017 10:11 PM EST) POC Glucose 112 65 - 199 mg/dL [facility] Comment: Supplemental ranges: <140 mg/dL before meals <180 mg/dL all other times of the day Blood specimen (specimen) 07/30/2017 10:11 PM EST 07/30/2017 10:11 PM EST Li Sepulveda MD POINT OF CARE TEST O RDERAFRANNIE Performing Organization Address City/[facility]/ZIP Co de Phone Number [facility] [place] [address] * POCT Glucose (07/30/2017 5:26 PM EST) POC Glucose 128 65 - 199 mg/dL [facility] Comment: Supplemental ranges: <140 mg/dL before meals <180 mg/dL all other times of the day Blood specimen (specimen) 07/30/2017 5:26 PM EST 07/30/2017 5:26 PM EST Li Sepulveda MD POINT OF CARE TEST O JORGE ALBERTO Performing Organization Address [facility]/ZIP Co de Phone Number [facility] [place] [address] * POCT Glucose (07/30/2017 1:18 PM EST) POC Glucose 152 65 - 199 mg/dL [facility] Comment: Supplemental ranges: <140 mg/dL before meals <180 mg/dL all other times of the day Blood specimen (specimen) 07/30/2017 1:18 PM EST 07/30/2017 1:18 PM EST Li Sepulveda MD POINT OF CARE TEST O RDERAFRANNIE Performing Organization Address City/[facility]/ZIP Co de Phone Number [facility] [place] [address] * POCT Glucose (07/30/2017 9:39 AM EST) POC Glucose 134 65 - 199 mg/dL [facility] Comment: Supplemental ranges: <140 mg/dL before meals <180 mg/dL all other times of the day Blood specimen (specimen) 07/30/2017 9:39 AM EST 07/30/2017 9:39 AM EST Li Sepulveda MD POINT OF CARE TEST O JORGE ALBERTO [facility] [place] [address] * POCT Glucose (07/30/2017 5:14 AM EST) POC Glucose 125 65 - 199 mg/dL [facility] Comment: Supplemental ranges: <140 mg/dL before meals <180 mg/dL all other times of the day Blood specimen (specimen) 07/30/2017 5:14 AM EST 07/30/2017 5:14 AM EST Li Sepulveda MD POINT OF CARE TEST O JORGE ALBERTO Performing Organization Address [facility] Co de Phone Number [facility] [place] [address] * POCT Glucose (07/30/2017 1:13 AM EST) POC Glucose 153 65 - 199 mg/dL [facility] Comment: Supplemental ranges: <140 mg/dL before meals <180 mg/dL all other times of the day Blood specimen (specimen) 07/30/2017 1:13 AM EST 07/30/2017 1:13 AM EST Li Sepulveda MD POINT OF CARE TEST O JORGE ALBERTO [facility] [place] [address] * POCT Glucose (07/29/2017 9:06 PM EST) POC Glucose 136 65 - 199 mg/dL [facility] Comment: Supplemental ranges: <140 mg/dL before meals <180 mg/dL all other times of the day Blood specimen (specimen) 07/29/2017 9:06 PM EST 07/29/2017 9:06 PM EST Li Sepulveda MD POINT OF CARE TEST O JORGE ALBERTO Performing Organization Address [facility] Co de Phone Number [facility] [place] [address] * POCT Glucose (07/29/2017 6:06 PM EST) POC Glucose 137 65 - 199 mg/dL [facility] Comment: Supplemental ranges: <140 mg/dL before meals <180 mg/dL all other times of the day Blood specimen (specimen) 07/29/2017 6:06 PM EST 07/29/2017 6:06 PM EST Li Sepulveda MD POINT OF CARE TEST O JORGE ALBERTO Performing Organization Address [facility] de Phone Number [facility] [place] [address] * POCT Glucose (07/29/2017 1:53 PM EST) POC Glucose 130 65 - 199 mg/dL [facility] Comment: Supplemental ranges: <140 mg/dL before meals <180 mg/dL all other times of the day Blood specimen (specimen) 07/29/2017 1:53 PM EST 07/29/2017 1:53 PM EST Li Sepulveda MD POINT OF CARE TEST O JORGE ALBERTO Performing Organization Address City/[facility] Co de Phone Number [facility] [place] [address] * POCT Glucose (07/29/2017 9:37 AM EST) POC Glucose 149 65 - 199 mg/dL [facility] Comment: Supplemental ranges: <140 mg/dL before meals <180 mg/dL all other times of the day Blood specimen (specimen) 07/29/2017 9:37 AM EST 07/29/2017 9:37 AM EST Li Sepulveda MD POINT OF CARE TEST O RDERAFRANNIE Performing Organization Address [facility] de Phone Number [facility] [place] [address] * POCT Glucose (07/29/2017 5:16 AM EST) POC Glucose 130 65 - 199 mg/dL [facility] Comment: Supplemental ranges: <140 mg/dL before meals <180 mg/dL all other times of the day Blood specimen (specimen) 07/29/2017 5:16 AM EST 07/29/2017 5:16 AM EST Li Sepulveda MD POINT OF CARE TEST O JORGE ALBERTO Performing Organization Address [facility] Co de Phone Number [facility] [place] [address] * POCT Glucose (07/29/2017 1:10 AM EST) POC Glucose 135 65 - 199 mg/dL [facility] Comment: Supplemental ranges: <140 mg/dL before meals <180 mg/dL all other times of the day Blood specimen (specimen) 07/29/2017 1:10 AM EST 07/29/2017 1:10 AM EST Li Sepulveda MD POINT OF CARE TEST O RDERAFRANNIE Performing Organization Address [facility] Co de Phone Number [facility] [place] [address] * POCT Glucose (07/28/2017 9:05 PM EST) POC Glucose 127 65 - 199 mg/dL [facility] Comment: Supplemental ranges: <140 mg/dL before meals <180 mg/dL all other times of the day Blood specimen (specimen) 07/28/2017 9:05 PM EST 07/28/2017 9:05 PM EST Li Sepulveda MD POINT OF CARE TEST O RDERABLES Performing Organization Address [facility] Co de Phone Number [facility] [place] [address] * Group B Streptococcus Screen (07/28/2017 6:55 PM EST) Group B Strep Screen Neg [facility] Pooled specimen from vaginal introitus and rectal swab (specimen) 07/28/2017 6:55 PM EST 07/28/2017 7:41 PM EST Comment:Penicillin Allergy?- >No Narrative Resulting Agency Comment Spec In Lab Li Sepulveda MD MICROBIOLOGY - GENER AL ORDERABLES Performing Organization Address [facility] de Phone Number [facility] [place] [address] * Antibody screen manual (07/28/2017 6:55 PM EST) AB Screen Interp Negative [facility] Blood specimen (specimen) Venous Draw / Unknown 07/28/2017 6:55 PM EST 07/28/2017 7:55 PM EST Narrative Resulting Agency Comment Spec In Lab Emerita Rosario MD BLOOD BANK LAB ORDER KURT Performing Organization Address [facility] de Phone Number [facility] [place] [address] * Ab Comment (07/28/2017 6:55 PM EST) Ab Information INTERPRETATION : The patient's serum has a casey-agglutinin that reacts only with solid-phase antigens. ??No casey-agglutinin is detected when red cells in solution are used in the assay. ??The casey-agglutinin detected is not clinically significant. Kanika Williamson i, MD, PhD Transfusion Medicine Service 08/06/17 17:28 [facility] Comment: KANIKA LIM, Pathologist Verified:08/06/17 Blood specimen (specimen) 07/28/2017 6:55 PM EST 07/28/2017 7:58 PM EST Narrative Resulting Agency Comment Spec In Lab Emerita Rosario MD BLOOD BANK LAB ORDER KURT [facility] [place] [address] * Antibody identification (07/28/2017 6:55 PM EST) Ab Identified Panagglutinin [facility] Blood specimen (specimen) 07/28/2017 6:55 PM EST 07/28/2017 7:58 PM EST Narrative Resulting Agency Comment Spec In Lab Li Sepulveda MD BLOOD BANK LAB ORDER KURT Performing Organization Address City/[facility]/ZIP Co de Phone Number [facility] [place] [address] * ABORH Recheck Status (07/28/2017 6:55 PM EST) ABORH Recheck Order Order Placed [facility] ABORH Type Recheck Complete [facility] Blood specimen (specimen) 07/28/2017 6:55 PM EST 07/28/2017 7:58 PM EST Narrative Resulting Agency Comment Spec In Lab Li Sepulveda MD BLOOD BANK LAB ORDER KURT Performing Organization Address City/[facility]/ZIP Co de Phone Number [facility] [place] [address] * Antibody screen (07/28/2017 6:55 PM EST) Ab Screen Interp Positive [facility] Expires at [id number] on: 07/31/2017 [facility] Blood specimen (specimen) 07/28/2017 6:55 PM EST 07/28/2017 7:58 PM EST Narrative Resulting Agency Comment Spec In Lab Li Sepulveda MD BLOOD BANK LAB ORDER KURT Performing Organization Address City/[facility]/ZIP Co de Phone Number [facility] [place] [address] * ABO/Rh Typing (07/28/2017 6:55 PM EST) ABORH Type B Pos [facility] Blood specimen (specimen) 07/28/2017 6:55 PM EST 07/28/2017 7:58 PM EST Narrative Resulting Agency Comment Spec In Lab Li Sepulveda MD BLOOD BANK LAB ORDER KURT Performing Organization Address [facility] Co de Phone Number [facility] [place] [address] * (ABNORMAL) Differential, Automated (07/28/2017 6:55 PM EST) Pathologist [facility] Neutrophils % 72.4 % [facility] Neutr Abs (ANC) 7.06(H) 1.70 - 6.10 x10(3)/[facility] LABORATORY Lymphocytes % 19.0 % [facility] Lymphocytes Abs 1.8 0.9 - 3.2 x10(3)/[facility] LABORATORY Monocytes % 7.2 % [facility] Monocyte Abs 0.7 0.3 - 0.9 x10(3)/[facility] LABORATORY Eosinophils % 0.8 % [facility] Eosinophils Abs 0.1 0.0 - 0.4 x10(3)/[facility] LABORATORY Basophils % 0.2 % [facility] Basophils Abs 0.0 0.0 - 0.1 x10(3)/[facility] LABORATORY Immature Gran % 0.40 % [facility] Comment: Immature granulocytes(IG's)percentage and absolute count will include metamyelocytes, myelocytes, and promyelocytes. Blood smears from CBCs yielding IG's will be scanned manually for concordance. If this scan disagrees with the automated IG or if promyelocytes are noted, a manual differential will be performed. Josie Gran Abs 0.04 0.00 - 0.04 x10(3)/mc L [facility] Blood specimen (specimen) 07/28/2017 6:55 PM EST 07/28/2017 7:24 PM EST Narrative Resulting Agency Comment Spec In Lab Li Sepulveda MD HEMATOLOGY ORDERABLE S [facility] [place] [address] * (ABNORMAL) Hemogram (07/28/2017 6:55 PM EST) WBC 9.8(H) 4.0 - 9.5 x10(3)/[facility] LABORATORY RBC 3.89(L) 4.00 - 5.21 x10(6)/[facility] LABORATORY Hemoglobin 11.4(L) 11.7 - 15.5 gm/dL [facility] Hematocrit 33.2(L) 35.7 - 45.8 % [facility] MCV 85.3 82.6 - 94.4 fL [facility] MCH 29.3 27.1 - 32.0 pg [facility] MCHC 34.3 31.7 - 35.0 gm/dL [facility] Platelets 274 145 - 357 x10(3)/[facility] RDWSD 40.0 37.0 - 46.0 [facility] LABORATORY RDWCV 13.0 11.5 - 14.1 % [facility] MPV 8.5 7.6 - 12.9 fL [facility] nRBC % Auto 0.0 % [facility] nRBC Abs Auto 0.000 0.000 - 0.000 x10(3)/[facility] LABORATORY Blood specimen (specimen) 07/28/2017 6:55 PM EST 07/28/2017 7:24 PM EST Narrative Resulting Agency Comment Spec In Lab Li Sepulveda MD HEMATOLOGY ORDERABLE S Performing Organization Address [facility] Co de Phone Number [facility] [place] [address] * Group B Strep Culture Screen (07/28/2017 6:55 PM EST) [facility] Group B Streptococcus Culture No Group B Streptococci isolated [facility] Pooled specimen from vaginal introitus and rectal swab (specimen) 07/28/2017 6:55 PM EST 07/28/2017 7:41 PM EST Comment:PENICILLIN ALLERGY?- >NO Narrative Resulting Agency Comment Spec In Lab Li Sepulveda MD MICROBIOLOGY - GENER AL ORDERABLES Performing Organization Address [facility] de Phone Number [facility] [place] [address] * THC (Marijuana), Urine Confirmation (07/28/2017 6:45 PM EST) U THC Conf Test ? Result ?Flag ??Unit ?? RefValue --- Carboxy-THC Confirmation, U ??Carboxy-THC- by GC/MS ?220 ? ng/mL ??Cutoff: 3.0 ??Carboxy-THC Interpretation ? Positive. ? --ADDITIONAL INFORMATION-------- ?This report is intended for use in clinical monitoring and ?management of patients. ??It is not intended for use in ?employment-relate d testing. ?This test was developed and its performance characteristics ?determined by [facility] in a manner consistent with CLIA ?requirements. This test has not been cleared or approved by ?the U.S. Food and Drug Administration. ?Test Performed by: ?[facility] ?[address] [place] [address] [facility] Urine specimen (specimen) 07/28/2017 6:45 PM EST 07/29/2017 8:33 AM EST Narrative Resulting Agency Comment Spec In Lab Emerita Rosario MD URINE ORDERABLES Performing Organization Address City/State/[facility] Co de Phone Number [facility] [place] [address] * (ABNORMAL) TEREZA Screen w/ Confirmation (07/28/2017 6:45 PM EST) U Barbiturates Screen None Detected None Detected [facility] Comment: The barbiturate screen detects barbiturates at concentrations >200 ng/mL. Note: Not all barbiturates cross-react equally with antibody used in this screen. A ? Presumptive Positive? result indicates that the screening result was positive but has not yet been confirmed by a highly-specific method. As with any screen, occasional false positive results from cross-reacting substances may occur. Not for Medico-Legal Purposes. U Benzodiazepines Screen None Detected None Detected [facility] Comment: The benzodiazepines screen detects benzodiazepines at concentrations >100 ng/mL. Not all benzodiazepines cross-react equally with antibody used in this screen. Due to the low dosage of clonazepam, false negatives may be obtained due to low concentration of clonazepam metabolites. A ? Presumptive Positive? result indicates that the screening result was positive but has not yet been confirmed by a highly-specific method. As with any screen, occasional false positive results from cross-reacting substances may occur. Not for Medico-Legal Purposes. U Cocaine Screen None Detected None Detected [facility] Comment: The cocaine metabolites screen detects benzoylecgonine (Cocaine Metabolite) at concentrations >150 ng/mL. A ? Presumptive Positive? result indicates that the screening result was positive but has not yet been confirmed by a highly-specific method. As with any screen, occasional false positive results from cross-reacting substances may occur. Not for Medico-Legal Purposes. U Methadone Metabolites Screen None Detected None Detected [facility] Comment: The methadone metabolite screen detects EDDP (major methadone metabolite) at concentrations >100 ng/mL. A ? Presumptive Positive? result indicates that the screening result was positive but has not yet been confirmed by a highly-specific method. As with any screen, occasional false positive results from cross-reacting substances may occur. Not for Medico-Legal Purposes. U Opiate Screen None Detected None Detected [facility] Comment: The opiates screen detects opiates at concentrations >300 ng/mL. Please note that oxycodone, oxymorphone, fentanyl, tramadol, and other synthetic opioids are not detected by the opiate screen. A ? Presumptive Positive? result indicates that the screening result was positive but has not yet been confirmed by a highly-specific method. As with any screen, occasional false positive results from cross-reacting substances may occur. Not for Medico-Legal Purposes. U Cannabinoid Screen Presumptive Pos(A) None Detected [facility] Comment: The marijuana metabolites screen detects the THC metabolite (66-abf-3-carboxy-delta 9-THC) at concentrations >20 ng/mL. A ? Presumptive Positive? result indicates that the screening result was positive but has not yet been confirmed by a highly-specific method. As with any screen, occasional false positive results from cross-reacting substances may occur. Not for Medico-Legal Purposes. U Oxycodone Screen None Detected None Detected [facility] Comment: The oxycodone screen detects oxycodone and oxymorphone at concentrations >100 ng/mL. A ? Presumptive Positive? result indicates that the screening result was positive but has not yet been confirmed by a highly-specific method. As with any screen, occasional false positive results from cross-reacting substances may occur. Not for Medico-Legal Purposes. U Buprenorphine Screen None Detected None Detected [facility] Comment: The buprenorphine screen detects buprenorphine at concentrations >5 ng/mL. A ? Presumptive Positive? result indicates that the screening result was positive but has not yet been confirmed by a highly-specific method. As with any screen, occasional false positive results from cross-reacting substances may occur. Not for Medico-Legal Purposes. U Fentanyl Screen None Detected None Detected [facility] Comment: The fentanyl screen detects fentanyl at concentrations >2 ng/mL. A ? Presumptive Positive? result indicates that the screening result was positive but has not yet been confirmed by a highly-specific method. As with any screen, occasional false positive results from cross-reacting substances may occur. Not for Medico-Legal Purposes. U Tricyclics Screen None Detected None Detected [facility] Comment: The tricyclics screen detects tricyclic antidepressants at concentrations >150 ng/mL. Not all tricyclics cross-react equally with the antibody used in this screen. A ? Presumptive Positive? result indicates that the screening result was positive but has not yet been confirmed by a highly-specific method. As with any screen, occasional false positive results from cross-reacting substances may occur. Not for Medico-Legal Purposes. U Ethanol Screen None Detected None Detected [facility] Comment:This urine ethanol a ssay detects ethanol at concentrations >/= 100 mg/L. U Amphetamines Screen None Detected None Detected [facility] Comment: The amphetamine screen detects d-amphetamine and d-methamphetamine at concentrations >300 ng/mL. A ? Presumptive Positive? result indicates that the screening result was positive but has not yet been confirmed by a highly-specific method. As with any screen, occasional false positive results from cross-reacting substances may occur. Not for Medico-Legal Purposes. U Adulterants Screen None Detected None Detected [facility] Comment: No adulteration or dilution of this urine sample was detected. All urine samples submitted for urine drugs of abuse analysis are tested for creatinine concentration, pH, and for the presence of oxidants, nitrites, and chromate. Urine specimen (specimen) 07/28/2017 6:45 PM EST 07/28/2017 7:23 PM EST Narrative Resulting Agency Comment Spec In Lab Li Sepulveda MD CHEMISTRY ORDERABLES Performing Organization Address City/[facility]/ZIP Co de Phone Number [facility] [place] [address] * TEREZA Request (07/28/2017 6:45 PM EST) TEREZA Conf Requested Yes [facility] TEREZA Requested See Comment [facility] Comment:Refer to the TEREZA Scr een w/ Confirmation order for results. Urine specimen (specimen) 07/28/2017 6:45 PM EST 07/28/2017 7:23 PM EST Narrative Resulting Agency Comment Spec In Lab Li Sepulveda MD URINE ORDERABLES Performing Organization Address [facility]/ZIP Co de Phone Number [facility] [place] [address] documented in this encounter Visit Diagnoses Diagnosis Vasa previa, single or unspecified fetus Vasa previa Vasa previa complicating labor and delivery, unspecified as to episode of care Previous section x 2 Other postprocedural status Insulin controlled gestational diabetes mellitus (GDM): diagnosed at 7 weeks gestation Asthma Unspecified asthma BMI 45.0-49.9, adult Body Mass Index 45.0-49.9, adult Encounter for insertion of intrauterine contraceptive device Jka antibody positive documented in this encounter Administered Medications Inactive Administered Medications - up to 3 most recent administrations Medication Order MAR Action Action Date Dose Rate Site acetaminophen (OFIRMEV) injection 1,000 mg 1,000 mg, Intravenous, at 400 mL/hr, Administer over 15 Minutes, ONCE, 1 dose, On Thu09/11/17 at 1500, Maximum dose of acetaminophen is 4000 mg from all sources in 24 hours., Routine, Is ketorolac (Toradol) IV contraindicated? Yes, Can this patient tolerate oral medications or suppositories? No Given 09/11/2017 3:04 PM EST 1,000 mg 400 mL/hr acetaminophen (TYLENOL) tablet 650 mg 650 mg, Oral, EVERY 6 HOURS PRN, Starting on Thu09/11/17 at 1554, Until Thu09/15/17 at 2040, Pain, - If ordered with other PRN pain medications give Ibuprofen first, then acetaminophen, then additional agents according to the pain scale. - Not to exceed 4g in 24 hours, Routine Given 09/15/2017 6:24 PM EST 650 mg Given 09/15/2017 10:10 AM EST 650 mg Given 09/15/2017 4:15 AM EST 650 mg betamethasone acetate-betamethasone sodium phosphate (CELESTONE) injection 12 mg 12 mg, Intramuscular, EVERY 24 HOURS, 2 doses, First dose on Thu07/28/17 at 1815, Last dose on Thu07/29/17 at 1815, Routine Given 07/29/2017 6:44 PM EST 12 mg Left Gluteal Given 07/28/2017 6:44 PM EST 12 mg Le ft Gluteal betamethasone acetate-betamethasone sodium phosphate (CELESTONE) injection 12 mg 12 mg, Intramuscular, EVERY 24 HOURS, 2 doses, First dose on Thu08/18/17 at 1700, Last dose on Thu08/19/17 at 1700, Routine Given 08/19/2017 5:36 PM EST 12 mg Right Gluteal Given 08/18/2017 5:35 PM EST 12 mg calcium carbonate (TUMS) chewable tablet 1,000 mg 1,000 mg (2 tablet), Oral, EVERY 4 HOURS PRN, Starting on Thu07/28/17 at 1747, Until Thu09/11/17 at 1440, Heartburn, If both calcium carbonate (TUMS) and alum-mag hydroxide-simeth (MAALOX) ordered, administer calcium carbonate (TUMS) first, if ineffective administer alum-mag hydroxide-simeth (MAALOX)., Routine Given 08/07/2017 10:16 AM EST 1,000 mg ceFAZolin (ANCEF) 2g in dextrose 5% 100 mL 2 g, Intravenous, GREENKEEPER TO O.R., 1 dose, On Thu09/11/17 at 1000, Administer over 30 Minutes, Indication for (Active or Suspected): Prophylaxis New Bag 09/11/2017 9:57 AM EST 2 g 200 mL/hr citric acid-sodium citrate (BICITRA) oral solution 30 mL 30 mL, Oral, GREENKEEPER TO O.R., 1 dose, On Thu09/11/17 at 0000, Routine Given 09/11/2017 10:04 AM EST 30 mLs cyclobenzaprine (FLEXERIL) tablet 10 mg 10 mg, Oral, 3 TIMES DAILY PRN, Starting on 09/13/17 at 0950, Until Thu09/15/17 at 2040, Muscle spasms, Routine Given 09/14/2017 3:16 PM EST 10 mg Given 09/14/2017 2:56 AM EST 10 mg Given 09/13/2017 6:35 PM EST 10 mg diphenhydrAMINE (BENADRYL) capsule 25 mg 25 mg, Oral, NIGHTLY PRN, Starting on Thu07/29/17 at 2120, Until Thu07/30/17 at 2220, Itching, Routine Given 07/30/2017 10:18 PM EST 25 mg Given 07/29/2017 9:37 PM EST 25 mg diphenhydrAMINE (BENADRYL) capsule 50 mg 50 mg, Oral, NIGHTLY PRN, Starting on Daphnie 07/30/17 at 2220, Until Thu08/28/17 at 2007, Itching, Routine Given 08/28/2017 12:08 AM EST 50 mg Given 08/27/2017 12:03 AM EST 50 mg Given 08/26/2017 1:24 AM EST 50 mg diphenhydrAMINE (BENADRYL) injection 25 mg 25 mg, Intravenous, EVERY 30 MIN PRN, 2 doses, Starting on Thu09/11/17 at 1440, Until 09/12/17 at 1025, Itching, May repeat dose in 30 minutes if pruritis not relieved. Per FINISHING PAN OPERATOR order., Routine Given 09/12/2017 4:12 AM EST 25 mg docusate sodium (COLACE) capsule 100 mg 100 mg, Oral, 2 TIMES DAILY PRN, Starting on Thu07/28/17 at 1747, Until Thu08/03/17 at 1148, Constipation, If multiple PRN bowel medications ordered, start with ducusate, then magnesium citrate. Multiple medications may be given concomitantly for constipation., Routine Given 08/03/2017 8:39 AM EST 100 mg Given 08/02/2017 8:08 AM EST 100 mg docusate sodium (COLACE) capsule 100 mg 100 mg, Oral, 2 TIMES DAILY, First dose (after last modification) on Thu08/03/17 at 2100, Until Discontinued, If multiple PRN bowel medications ordered, start with ducusate, then magnesium citrate. Multiple medications may be given concomitantly for constipation., Routine Given 08/10/2017 11:48 AM EST 100 mg Given 08/07/2017 9:40 PM EST 100 mg Given 08/05/2017 10:03 PM EST 100 mg docusate sodium (COLACE) capsule 100 mg 100 mg, Oral, 2 TIMES DAILY, First dose on Thu09/11/17 at 2100, Until Discontinued, Routine Given 09/15/2017 9:53 AM EST 100 mg Given 09/14/2017 9:17 PM EST 100 mg ferrous gluconate tablet 324 mg 324 mg, Oral, 3 TIMES DAILY, First dose on Thu09/14/17 at 0900, Until Discontinued Given 09/15/2017 9:53 AM EST 324 mg Given 09/14/2017 9:17 PM EST 324 mg HYDROmorphone (DILAUDID) 1 mg/mL FINISHING PAN OPERATOR 50 mL Intravenous, FINISHING PAN OPERATOR ONLY, Starting on Thu09/11/17 at 1500, Until Thu09/12/17 at 1025 Rate/Dose Verify 09/11/2017 3:56 PM EST 1 mg/hr 1 mL/hr New Syringe/Cartridge 09/11/2017 2:56 PM EST 50 mg HYDROmorphone (DILAUDID) injection 0.4-0.6 mg 0.4-0.6 mg, Intravenous, EVERY 5 MIN PRN, Starting on Thu09/11/17 at 1351, Until Thu09/11/17 at 1533, Pain, Give 0.4 mg every 5 minutes PRN for mild to moderate pain (1-5) Give 0.6 mg every 5 minutes PRN for moderate to severe pain (6-10). Hold for respiratory rate less than 10 per minute. Maximum dose 4 mg over one hour. If multiple pain medications are ordered, start with hydromorphone or morphine and use fentanyl for breakthrough pain., PACU Recovery, Routine Given 09/11/2017 3:00 PM EST 0.4 mg Given 09/11/2017 2:50 PM EST 0.6 mg Given 09/11/2017 2:44 PM EST 0.6 mg hydrOXYzine (ATARAX) tablet 50 mg 50 mg, Oral, NIGHTLY PRN, Starting on Thu08/28/17 at 2006, Until Thu09/11/17 at 1440, Anxiety, sleep, Routine Given 09/10/2017 12:21 AM EST 50 mg Given 09/09/2017 12:26 AM EST 50 mg Given 09/08/2017 12:29 AM EST 50 mg ibuprofen (ADVIL;MOTRIN) tablet 600 mg 600 mg, Oral, EVERY 6 HOURS PRN, Starting on Thu09/13/17 at 1320, Until Thu09/15/17 at 2040, Pain, Administer orally with milk or food to minimize GI irritation. Maximum dose of 3200 mg from all sources in 24 hours, Routine Given 09/15/2017 6:24 PM EST 600 mg Given 09/15/2017 10:10 AM EST 600 mg Given 09/15/2017 4:15 AM EST 600 mg insulin isophane- NPH VIAL injection 16-24 Units 16-24 Units, Subcutaneous, USER SPECIFIED (2 times per day), First dose (after last modification) on Thu09/06/17 at 1200, Until Discontinued, Basal insulin. At 1200 give 16 units. At 0000 give 24 units., Routine Given 09/08/2017 11:50 AM EST 16 Units Left Upper Outer Quadrant Given 09/08/2017 12:30 AM EST 24 Units Given 09/07/2017 12:56 PM EST 16 Units insulin isophane- NPH VIAL injection 20-24 Units 20-24 Units, Subcutaneous, USER SPECIFIED (2 times per day), First dose (after last modification) on Thu09/09/17 at 0000, Until Discontinued, Basal insulin. At 1200 give 20 units. At 0000 give 24 units., Routine Given 09/11/2017 12:00 AM EST 24 Units Given 09/10/2017 1:09 PM EST 20 Units Ri ght Upper Outer Quadrant Given 09/10/2017 12:23 AM EST 24 Units R ight Lower Quadrant insulin isophane- NPH VIAL injection 6-20 Units 6-20 Units, Subcutaneous, USER SPECIFIED (2 times per day), First dose on Thu07/28/17 at 2100, Until Discontinued, Basal insulin. At 0700 give 6 units. At 2100 give 20 units., Routine Given 07/31/2017 6:22 AM EST 6 Units Abdominal Tissue Given 07/30/2017 9:10 PM EST 20 Units Ab dominal Tissue Given 07/30/2017 6:59 AM EST 6 Units insulin isophane- NPH VIAL injection 6-22 Units 6-22 Units, Subcutaneous, USER SPECIFIED (2 times per day), First dose (after last modification) on Thu07/31/17 at 2100, Until Discontinued, Basal insulin. At 0700 give 6 units. At 2100 give 22 units., Routine Given 08/11/2017 9:02 PM EST 22 Units Ab dominal Tissue Given 08/11/2017 10:10 AM EST 6 Units Given 08/10/2017 9:05 PM EST 22 Units Ab dominal Tissue insulin isophane- NPH VIAL injection 6-24 Units 6-24 Units, Subcutaneous, USER SPECIFIED (2 times per day), First dose (after last modification) on Thu08/12/17 at 0800, Until Discontinued, Basal insulin. At 0700 give 6 units. At 2100 give 24 units., Routine Given 08/12/2017 8:49 PM EST 24 Units Given 08/12/2017 11:47 AM EST 6 Units insulin isophane- NPH VIAL injection 6-24 Units 6-24 Units, Subcutaneous, USER SPECIFIED (2 times per day), First dose (after last modification) on [facility] 08/13/17 at 1200, Until Discontinued, Basal insulin. At 1200 give 14 units. At 0000 give 24 units., Routine Given 09/06/2017 12:14 AM EST 24 Units Given 09/05/2017 2:12 PM EST 14 Units Given 09/04/2017 11:39 PM EST 24 Units insulin lispro (humaLOG) VIAL injection 1-3 Units 1-3 Units, Subcutaneous, USER SPECIFIED (4 times per day), First dose (after last modification) on [facility] 08/13/17 at 1200, Until Discontinued, Sensitive to insulin lean patient or total daily dose of all insulin needed to achieve glycemic control less than 30 units Give 1 unit for every 30 mg/dL over target. Pre-meal target blood glucose less than 100 mg/dL. 1 hour post prandial-- Target blood glucose less than 140 mg/dL., Routine Given 08/29/2017 8:54 PM EST 1 Units Given 08/20/2017 1:59 PM EST 1 Units Given 08/19/2017 10:06 AM EST 1 Units insulin lispro (humaLOG) VIAL injection 2-6 Units 2-6 Units, Subcutaneous, EVERY 4 HOURS, First dose on Thu07/28/17 at 1815, Until Discontinued, Moderate Give 1 unit for every 20 mg/dL over target. Pre-meal target blood glucose less than 100 mg/dL. 1 hour post prandial-- Target blood glucose less than 140 mg/dL., Routine Given 07/30/2017 5:18 AM EST 1 Units Given 07/30/2017 1:16 AM EST 1 Units Given 07/29/2017 5:18 AM EST 1 Units ketorolac (TORADOL) injection 15 mg 15 mg, Intravenous, EVERY 6 HOURS SCHEDULED, 16 doses, First dose on Thu09/12/17 at 1415, Last dose on Thu09/16/17 at 0800, Routine Given 09/13/2017 9:40 AM EST 15 mg Given 09/13/2017 2:10 AM EST 15 mg Given 09/12/2017 8:10 PM EST 15 mg lactated Ringers infusion 100 mL/hr, Intravenous, CONTINUOUS, Starting on Thu09/11/17 at 1500, Until Thu09/15/17 at 2040, Administer until tolerating clear liquids then saline lock. Rate/Dose Verify 09/12/2017 7:00 PM EST 100 mL/hr 100 mL/hr Rate/Dose Verify 09/11/2017 3:57 PM EST 100 mL/hr 100 mL/ hr New Bag 09/11/2017 2:55 PM EST 100 mL/hr 100 mL/hr lidocaine (XYLOCAINE) 10 mg/mL (1 %) injection 3 mg 3 mg (0.3 mL), Subcutaneous, ONCE PRN, 1 dose, Starting on Thu07/28/17 at 1727, Until Thu08/07/17 at 1638, for discomfort with PIV insertion, Routine Given 08/07/2017 4:38 PM EST 3 mg Left Arm magnesium sulfate 2 g in sterile water 50 mL 2 g, Intravenous, ONCE, 1 dose, On Thu09/11/17 at 1615, Administer over 120 Minutes, Minimum infusion duration is 2 hours. New Bag 09/11/2017 4:15 PM EST 2 g 25 mL/hr magnesium sulfate 20 g/500 mL infusion 1 g/hr (25 mL/hr), Intravenous, CONTINUOUS, Starting on Thu08/14/17 at 2000, Until Thu08/16/17 at 0033, Routine New Bag 08/15/2017 1:48 PM EST 1 g/hr 25 mL/hr New Bag 08/14/2017 9:12 PM EST 1 g/hr 25 mL/hr magnesium sulfate Bolus from bag 4 g 4 g, Intravenous, ONCE, 1 dose, On Thu08/14/17 at 2000, Routine Bolus from Bag 08/14/2017 9:10 PM EST 4 g methylergonovine (METHERGINE) 0.2 mg/mL (1 mL) injection 1 dose, Starting on Thu09/11/17 at 1415, Until Thu09/11/17 at 1430, LETITIA GOODSON: cabinet override Given 09/11/2017 2:30 PM EST 0.2 mg ondansetron (ZOFRAN) injection 4 mg 4 mg, Intravenous, EVERY 8 HOURS PRN, Starting on Thu08/07/17 at 1016, Until Thu09/15/17 at 2040, Nausea, Routine Given 09/14/2017 3:27 PM EST 4 mg Given 09/11/2017 10:55 PM EST 4 mg Given 08/07/2017 2:14 PM EST 4 mg oxyCODONE (ROXICODONE) immediate release tablet 5-10 mg 5-10 mg, Oral, EVERY 4 HOURS PRN, Starting on 09/12/17 at 1024, Until Thu09/15/17 at 2040, Pain, Give 5 mg for pain 3-6/10 and 10 mg for pain 7-10/10. May repeat 5 mg in 30 min if initial 5 mg dose is not effective., Routine Given 09/14/2017 10:50 AM EST 5 mg Given 09/14/2017 10:11 AM EST 5 mg Given 09/14/2017 1:19 AM EST 10 mg pantoprazole (PROTONIX) injection 40 mg 40 mg, Intravenous, DAILY, First dose on Thu09/11/17 at 1615, Until Discontinued Given 09/15/2017 9:53 AM EST 40 mg Given 09/12/2017 10:20 AM EST 40 mg Given 09/11/2017 4:15 PM EST 40 mg polyethylene glycol (MIRALAX) packet 17 g 17 g, Oral, DAILY PRN, Starting on 08/01/17 at 2154, Until Thu08/02/17 at 2233, Constipation, Routine Given 08/02/2017 10:53 AM EST 17 g polyethylene glycol (MIRALAX) packet 17 g 17 g, Oral, 2 TIMES DAILY PRN, Starting on 08/02/17 at 2245, Until Thu09/11/17 at 1440, Constipation, Routine Given 08/04/2017 8:25 PM EST 17 g Given 08/03/2017 8:40 AM EST 17 g Given 08/02/2017 10:41 PM EST 17 g vitamin 27 & [id number] 60 mg iron-1 mg tablet Tab 1 tablet 1 tablet, Oral, DAILY, First dose on Thu07/28/17 at 1815, Until Discontinued, Routine Given 09/10/2017 2:05 PM EST 1 tablet Given 09/09/2017 2:10 PM EST 1 tablet Given 09/08/2017 4:02 PM EST 1 tablet senna-docusate (PERICOLACE) 8.6-50 mg per tablet 2 tablet 2 tablet, Oral, 2 TIMES DAILY, First dose on Thu08/05/17 at 1100, Until Discontinued, Routine Given 08/11/2017 9:00 PM EST 2 tablets Given 08/11/2017 10:11 AM EST 2 tablets Given 08/10/2017 9:04 PM EST 2 tablets simethicone (MYLICON) chewable tablet 80 mg 80 mg, Oral, 4 TIMES DAILY PRN, Starting on Thu09/11/17 at 1554, Until Thu09/15/17 at 2040, Cramping, gas pain, Routine Given 09/13/2017 9:11 PM EST 80 mg sodium chloride 0.9 % flush 5 mL 5 mL, Intravenous, 2 TIMES DAILY, First dose on Thu07/28/17 at 2100, Until Discontinued, Routine Given 09/15/2017 9:54 AM EST 5 mLs Given 09/14/2017 9:00 PM EST 5 mLs Given 09/13/2017 9:00 PM EST 5 mLs sodium chloride 0.9 % flush 5-20 mL 5-20 mL, Intravenous, EVERY 1 MIN PRN, Starting on Thu07/28/17 at 1727, Until Thu09/15/17 at 2040, flush, Flush pertains to all indwelling lines. Flush per protocol found in the job aid using the link provided on this medication record., Routine zolpidem (AMBIEN) tablet 5 mg 5 mg, Oral, ONCE, 1 dose, On Thu09/10/17 at 2000, Routine Given 09/10/2017 11:58 PM EST 5 mg documented in this encounter Active and Recently Administered Medications Times are shown in EST. Scheduled Medication Order 09/13/2017 09/14/2017 09/15/2017 docusate sodium (COLACE) capsule 100 mg 100 mg, Oral, 2 TIMES DAILY, First dose on Thu09/11/17 at 2100, Until Discontinued, Routine 0900 (Not Given - Provider: Yumiko Cochran RN - Reason: Patient/family refused)2100 (Not Given - Provider: Pam Valenzuela, RN - Reason: Patient/family refused) 0900 (Due)2116 (Given - Provider: Emely Nagy, YNA) 0953 (Given - Provider: Asif Grove, NYA) ferrous gluconate tablet 324 mg 324 mg, Oral, 3 TIMES DAILY, First dose on Thu09/14/17 at 0900, Until Discontinued 0900 (Due)1500 (Due)2116 (Given - Provider: Emely Nagy, NYA) 0953 (Given - Provider: Asif Grove, NYA)1500 (Not Given - Provider: Asif Grove RN - Reason: Patient not available) ketorolac (TORADOL) injection 15 mg (CANCELED)(Linked Group 1) 15 mg, Intravenous, EVERY 6 HOURS SCHEDULED, 16 doses, First dose on Thu09/12/17 at 1415, Last dose on Thu09/16/17 at 0800, Routine 0210 (Given - Provider: Daisy Mike RN)0940 (Given - Provider: Yumiko Cochran, NYA) pantoprazole (PROTONIX) injection 40 mg 40 mg, Intravenous, DAILY, First dose on Thu09/11/17 at 1615, Until Discontinued 0900 (Not Given - Provider: Yumiko Cochran RN - Reason: Patient/family refused) 0900 (Due) 0953 (Given - Provider: Asif Grove RN) sodium chloride 0.9 % flush 5 mL 5 mL, Intravenous, 2 TIMES DAILY, First dose on Thu07/28/17 at 2100, Until Discontinued, Routine 0900 (Due - Provider: Freda Ching, NYA)2100 (Given - Provider: Pam Valenzuela, RN) 0900 (Due - Provider: Freda Ching RN)2100 (Given - Provider: Emely Nagy RN) 0954 (Given - Provider: Asif Grove, NYA) Continuous Medication Order 09/13/2017 09/14/2017 09/15/2017 lactated Ringers infusion 100 mL/hr, Intravenous, CONTINUOUS, Starting on Thu09/11/17 at 1500, Until Thu09/15/17 at 2040, Administer until tolerating clear liquids then saline lock. PRN Medication Order 09/13/2017 09/14/2017 09/15/2017 acetaminophen (TYLENOL) tablet 650 mg 650 mg, Oral, EVERY 6 HOURS PRN, Starting on Thu09/11/17 at 1554, Until Thu09/15/17 at 2040, Pain, - If ordered with other PRN pain medications give Ibuprofen first, then acetaminophen, then additional agents according to the pain scale. - Not to exceed 4g in 24 hours, Routine 151 (Given - Provider: Valery Hoover RN)2115 (Given - Provider: Emely Nagy RN) 0415 (Given - Provider: Emely Nagy RN)1010 (Given - Provider: Asif Grove RN)1824 (Given - Provider: Asif Grove, NYA) cyclobenzaprine (FLEXERIL) tablet 10 mg 10 mg, Oral, 3 TIMES DAILY PRN, Starting on Thu09/13/17 at 0950, Until Thu09/15/17 at 2040, Muscle spasms, Routine 1029 (Given - Provider: Yumiko Cochran RN)1835 (Given - Provider: Yumiko Cochran RN) 0256 (Given - Provider: Pam Valenzuela RN)1516 (Given - Provider: Valery Hoover RN) ibuprofen (ADVIL;MOTRIN) tablet 600 mg 600 mg, Oral, EVERY 6 HOURS PRN, Starting on Thu09/13/17 at 1320, Until Thu09/15/17 at 2040, Pain, Administer orally with milk or food to minimize GI irritation. Maximum dose of 3200 mg from all sources in 24 hours, Routine 2115 (Given - Provider: Emely Nagy RN) 0415 (Given - Provider: Emely Nagy RN)1010 (Given - Provider: Asif Grove RN)1824 (Given - Provider: Asif Grove RN) ondansetron (ZOFRAN) injection 4 mg 4 mg, Intravenous, EVERY 8 HOURS PRN, Starting on Thu08/07/17 at 1016, Until Thu09/15/17 at 2040, Nausea, Routine 1527 (Given - Provider: Valery Hoover, NYA) oxyCODONE (ROXICODONE) immediate release tablet 5-10 mg 5-10 mg, Oral, EVERY 4 HOURS PRN, Starting on Thu09/12/17 at 1024, Until Thu09/15/17 at 2040, Pain, Give 5 mg for pain 3-6/10 and 10 mg for pain 7-10/10. May repeat 5 mg in 30 min if initial 5 mg dose is not effective., Routine 0015 (Given - Provider: Daisy Mike RN)0946 (Not Given - Provider: Yumiko Cochran RN - Reason: Patient/family refused)1202 (Given - Provider: Yumiko Cochran RN)1615 (Given - Provider: Yumiko Cochran RN)2110 (Given - Provider: Pam Valenzuela, NYA) 0119 (Given - Provider: Pam Valenzuela, NYA)1011 (Given - Provider: Valery Hoover, NYA)1050 (Given - Provider: Valery Hoover, NYA) simethicone (MYLICON) chewable tablet 80 mg 80 mg, Oral, 4 TIMES DAILY PRN, Starting on Thu09/11/17 at 1554, Until Thu09/15/17 at 0, Cramping, gas pain, Routine 211 (Given - Provider: Pam Valenzuela, NYA) sodium chloride 0.9 % flush 5-20 mL 5-20 mL, Intravenous, EVERY 1 MIN PRN, Starting on Thu07/28/17 at 1727, Until Thu09/15/17 at 0, flush, Flush pertains to all indwelling lines. Flush per protocol found in the job aid using the link provided on this medication record., Routine Linked Groups Order Group 1: ketorolac (TORADOL) injection 15 mg (CANCELED)Jump to med 15 mg, Intravenous, EVERY 6 HOURS SCHEDULED, 16 doses, First dose on Thu09/12/17 at 1415, Last dose on Thu09/16/17 at 0800, Routine Followed by ibuprofen (ADVIL;MOTRIN) tablet 600 mg (CANCELED) 600 mg, Oral, EVERY 6 HOURS SCHEDULED, First dose on Thu09/16/17 at 1400, Until Discontinued, Administer orally with milk or food to minimize GI irritation. Maximum dose of 3200 mg from all sources in 24 hours, Routine documented in this encounter Care Teams Gsa Coordinator Relationship Specialty Start Date End Date None None PCP - General 05/29/17 09/02/21 documented as of this encounter
--- OUTSIDE RECORDS SUMMARY | 2024-03-03 18:57 | XMS_ITS | Encounter Summary ---
[facility] Organization [facility] [place] [address] Care Team Providers Care Superintendent Greens Name Role Phone None Primary Care Provider Unavailabl e Reason for Visit * Auth/Cert Specialty Diagnoses / Procedures Referred By Jose Enrique velazco Referred To Contact Diagnoses Vasa previa Procedures JUDSON IPI Referral ID Status Reason Start Date Expiration Date Visits Re quested Visits Authorized [id number] 1 1 Encounter Details Date Type Department Care Team (Late st Contact Info) Description 09/11/2017 10:19 AM EST [place] [address] Mitch Dowd MD [facility] [address] AN[place]ESIOLOG[facility] [place] [address] Nimo Castellon MD [facility] [address] ANESTHESIOLOGY [place] [address] Anesthesia Record Procedure Summary Procedure Name Responsible Anesthesiologist Anesthesia Start Time Anesthesia Stop Time @ DELIVERY (WRVU 16.13) (Bilateral: Abdomen) Mitch Dowd MD 09/11/17 1019 09/11/17 1429 Events Date Time Event Comment 09/11/2017 1019 AN Verify 1019 Start 1019 An Start Data 1123 Spinal 1125 L Uterine Displacement 1126 Anesthesia Ready 1142 An Induction 1144 An Intubation 1145 Skin Incision 1157 Uterine Incision 1158 Baby Delivered 1205 Quick Note Significant barbara gical oozing with concern for retained placenta and placenta accreta. Decision made to proceed w hysterectomy. 1354 Extubation/LMA Out 1359 an stop data 1424 Recovery or ICU Handoff Milly ent care was transferred to the destination unit staff after review of the patient's medical history, current anesthetic/surgical status and plan, according to the Provider Handoff Checklist. 1429 Stop 1600 Meds Name Total fentaNYL 350 mcg PHENYLephrine 80 mcg Ondansetron 8 mg PHENYLephrine INF 2,880 mcg Oxytocin INF 20 mL Oxytocin INF 258.33 mL BUpivacaine 0.5% 3 mL Rocuronium 50 mg Propofol INF 642.24 mg Propofol 290 mg Succinylcholine 140 mg ceFAZolin 4 g Glycopyrrolate 0.4 mg Neostigmine 3 mg Methylene Blue 5 mL Lactated Ringers 2,000 mL Lactated Ringers 2,200 mL * Agents Name O2 Air N2O Sevoflurane (et) * Blood No blood administrations on file. Lines, Drains, and Airways Type Details Placement Removal (RETIRED By JOSE) Incision 09/11/17; 1158 09/11/17 1158 by Aisf Grove, RN (RETIRED) Peripheral IV Line - Single Lumen 09/03/17; 0118; cephalic vein (lateral side of arm), right; uruv-wxq-xvmwzb catheter system; 22 gauge, 1 in length, 3/4 in length; Denise Irvin RN; intradermal injection, tolerated well; 0; no longer indicated, catheter/device intact, removed per policy/procedure; 09/15/17; 1827 09/03/17 0118 by Denise Irvin, NYA 09/15/17 1827 by Asif Grove RN (RETIRED) Peripheral IV Line - Single Lumen 09/11/17; 0915; metacarpal vein (top of hand), left; yrzy-bsw-depvgt catheter system; 20 gauge; felicitas ham rn; distraction; 0; pt wanted out so that she could hold her baby without interfearance. Still has IV access in R ant forearm.; other (see comments); 09/12/17; 1020 09/11/17 0915 by Felicitas Ham RN 09/12/17 1020 by Claudine Gamino RN (RETIRED) Peripheral IV Line - Single Lumen 09/11/17; 1006; metacarpal vein (top of hand), right; lycb-dij-gmzobm catheter system; 18 gauge; distraction; 0; site symptomatic, catheter/device intact; 09/11/17; 23409/11/17 1006 by Letitia Rosales RN 09/11/17 2348 by Daisy Mike, RN (RETIRED) Peripheral IV Line - Single Lumen 09/11/17; 1100; metacarpal vein (top of hand), right; 18 gauge; double entry of LDA, same IV line documented earlier at 1006; site symptomatic, catheter/device intact; 09/11/17; 23409/11/17 1100 by Asif Grove RN 09/11/17 2348 by Daisy Mike, RN Urethral Catheter 09/11/17; 1128; Abdominal surgery; Prolonged Immobilization; indwelling double lumen catheter; 100% silicone; 14; inserted at this facility; 1; 10; 10; none; drainage bag to dependent drainage; 09/12/17; 1020 09/11/17 1128 by Letitia Rosales RN 09/12/17 1020 by Claudine Gamino RN ETT Mask Ventilation: No t Attempted (0); ETT Type: Cuffed, Oral; ETT Size: 7 mm; Indirect: Video; Notes: Asleep, Pre-O2, RSI, Cricoid Pressure, Stylette; Attempts: 1; Laryngoscopy Grade: 1; ETT Placement Verified By: Auscultation, Capnometry, Visual; Secured at Teeth: 24 cm; Inserted by: MD Robert; Removal Date: 09/11/17; Removal Time: 1354 09/11/17 1144 by Mert Jones MD 09/11/17 1354 by Mert Jones MD documented in this encounter Social History Tobacco Use Types Packs/Day Years Used Date Smoking Tobacco: Former Smokeless Tobacco: Never Alcohol Use Standard Drinks/Week Comments No 0 (1 standard drink = 0.6 oz pur e alcohol) Comments Yes Sex and Gender Information Value Date Recorded Sex Assigned at Not on file Gender Identity Not on file Sexual Orientation Not on file documented as of this encounter OR Notes * Anesthesia Postprocedure Evaluation - Vishal Mackenzie MD - 09/11/2017 2:30 PM EST [facility] [place] Department of Anesthesiology Post-procedure Note Patient: aPm Lake Procedure Summary Date Anesthesia Start Anesthesia Stop Room / Location 09/11/17 1019 1429 [facility] OR [facility] / [facility] Procedure Diagnosis Surgeon Responsible Provider @ DELIVERY ([facility]VU 16.13) (Bilateral Abdomen); CYSTO, CYSTOURETHROSCOPY, DIAGNOSTIC (WRVU 2.23) (N/A Bladder); @HYSTERECTOMY, ABD, SUPRACERVICAL (WRVU 16.6) (N/A Abdomen) (c/s) Chely Sin MD Burchman, Corey A, MD All Anesthesia Providers: Anesthesiologist: Mitch Dowd MD Stator Connector: Mert Jones MD Most Recent Vitals: 09/11/17 0900 BP: 122/66 Pulse: (!) 109 Resp: 18 Temp: SpO2: 100% Pain Patient Location: PACU/[facility] Level of Consciousness: Awake and Alert Pain Management: Satisfactory Analgesia PONV: None Cardiovascular Status: At Baseline Respiratory Status: At Baseline and Room Air Postoperative Fluid Status: Intravascular EUvolemia Possible Anesthetic Complications: NONE apparent at time of evaluation Final Primary Anesthesia Type: General The Primary Anesthetic Type Changed from the Original (PreOp) Anesthesia Plan: Comments: Extremely difficult epidural/spinal placement. Eventual L3-4 spinal with 0.5% bupivacaine. After 20 mins the spinal had not set up and decision was made to convert to GA. Patient did well with GA and woke up with no complications. She complained of pain on arrival to the PACU. She remained HD stable through the case. Will follow up with CBC and Coag panel in PACU. 09/13/17 Patient seen at request of OB staff regarding neck pain and headache with concern for spinal headache. Patient reports intermittent headache and cervical pain that comes and goes. Headache is a dull ache. It is is intermittent and at times associated with sitting up. However, during the exam, while sitting up, patient reported no headache. Her cervical pain is paraspinal and is worsened by movement and sitting up. It is relieved with a heating pad, muscle relaxants, and massage. Physical exam reveals paraspinal muscle tenderness. Symptoms consistent with muscular pain and possible tension type headache. * Anesthesia Preprocedure Evaluation - Nimo Castellon - 09/01/2017 6:03 AM EST Images from the original note were not included. Pre-Anesthesia Evaluation for: Pam Lake a 27 y.o. female. Procedures: @ DELIVERY (WRVU 16.13) (Bilateral Abdomen) Patient Active Problem List Diagnosis ??? Asthma ??? Vasa previa 0.9cm lateral to internal os ??? Low-lying placenta ??? Insulin controlled gestational diabetes mellitus (GDM): diagnosed at 7 weeks gestation ??? Previous section x 2 Past Medical History: Diagnosis Date ??? Asthma ??? Diabetes mellitus gestational diabetes insulin controlled and diet Past Surgical History: Procedure Laterality Date ??? SECTION 2008 and 2010 Social History Substance Use Topics ??? Smoking status: Former Smoker ??? Smokeless tobacco: Never Used ??? Alcohol use No History Drug Use ??? 3.50 per week ??? Special: Marijuana Comment: Pt smokes ~ 1/8th an ounce (3.5g) per week, smokes every night No Known Allergies Medications: MAR and/or home medications have been reviewed. Physical Exam: Most Recent Vitals: 08/31/17 1600 BP: Pulse: Resp: Temp: SpO2: 99% Body mass index is 46.19 kg/(m^2). Height: 149.9 cm (4' 11.02) Weight: 103.8 kg (228 lb 13.4 oz) Airway Assessment: Mallampati: I TM distance: >3 FB Neck ROM: full Cardiovascular Assessment: cardiovascular exam normal Pulmonary Assessment: pulmonary exam normal Dental Assessment: - normal exam Misc Assessment: Patient is wearing No contact(s). IV access: Peripheral line Anesthesia Plan: ASA 2 spinal, Pt interviewed and examined. Pt is a 27 y.o. female who is and 32w4d here for monitoring for vasa previa. Medical history, medications, allergies, and social history reviewed, significant for GDM (insulin controlled), asthma (rare inhaler use), depression (not on meds during ), prior c/s x2 (spinal for both), marijuana use during . Labs reviewed and listed below. No contraindication to a neuraxial technique. Consent obtained. Risk, benefits discussed; questions answered. Planned C/S for 09/11/17 Allergies/ADR: No Known Allergies Personal history of problems with anesthesia: no Family history of anesthesia problems: no Bleeding Disorder: no Asthma: yes HTN: no Prior back surgeries/pathology: no LE numbness/weakness: periodic pinching R hip and shooting R leg pain. No numbness or weakness. Lab Results Component Value Date/Time HGB 11.4 (L) 07/28/2017 06:55 PM PLATELET 274 07/28/2017 06:55 PM Type and Screen: Lab Results Component Value Date ABORH B Pos 07/28/2017 Discussed potential need for anesthesia to possibly include spinal, CSE, and anesthesia for (which includes all of the above with the addition of general anesthesia.) Answered all questions, consent obtained and placed in patient's chart. Nimo Castellon MD Region - Other Informed Consent: Anesthetic plan and risks discussed with patient. PAT Staff Note documented in this encounter Miscellaneous Notes * Addendum Note - Vishal Mackenzie MD - 09/13/2017 4:49 PM EST Addendum created 09/13/17 1649 by Vishal Mackenzie MD Pend clinical note, Sign clinical note documented in this encounter Plan of Treatment Not on file documented as of this encounter Visit Diagnoses Not on filedocumented in this encounter Administered Medications Inactive Administered Medications - up to 3 most recent administrations Medication Order MAR Action Action Date Dose Rate Site BUpivacaine (PF) (MARCAINE) 0.5 % (5 mg/mL) injection PRN, Starting on Thu09/11/17 at 1123, Until Thu09/11/17 at 1429, Anesthesia Intra-op, Routine Given 09/11/2017 11:23 AM EST 3 mLs ceFAZolin (ANCEF) 1g in dextrose 5% 50mL PRN, Starting on Thu09/11/17 at 1205, Until Thu09/11/17 at 1429, Administer over 30 Minutes, Anesthesia Intra-op Given 09/11/2017 12:45 PM EST 2 g Given 09/11/2017 12:05 PM EST 2 g fentaNYL 50 mcg/mL multi-dose injection PRN, Starting on Thu09/11/17 at 1123, Until Thu09/11/17 at 1429, Pain, Anesthesia Intra-op, Routine Given 09/11/2017 2:25 PM EST 50 mcg Given 09/11/2017 2:18 PM EST 50 mcg Given 09/11/2017 2:11 PM EST 50 mcg glycopyrrolate (ROBINUL) multi-dose injection PRN, Starting on Thu09/11/17 at 1325, Until Thu09/11/17 at 1429, Anesthesia Intra-op, Routine Given 09/11/2017 1:25 PM EST 0.4 mg lactated Ringers infusion CONTINUOUS PRN, Starting on Thu09/11/17 at 1019, Until Thu09/11/17 at 1429, Anesthesia Intra-op New Bag 09/11/2017 12:17 PM EST New Bag 09/11/2017 10:31 AM EST New Bag 09/11/2017 10:19 AM EST lactated Ringers infusion CONTINUOUS PRN, Starting on Thu09/11/17 at 1025, Until Thu09/11/17 at 1429, Anesthesia Intra-op New Bag 09/11/2017 12:59 PM EST New Bag 09/11/2017 11:56 AM EST New Bag 09/11/2017 10:25 AM EST methylene blue 5 mg/mL (0.5 %) infusion PRN, Starting on Thu09/11/17 at 1331, Until Thu09/11/17 at 1429, Anesthesia Intra-op Given 09/11/2017 1:31 PM EST 5 mLs neostigmine (BLOXIVERZ) injection PRN, Starting on Thu09/11/17 at 1325, Until Thu09/11/17 at 1429, Anesthesia Intra-op, Routine Given 09/11/2017 1:25 PM EST 3 mg ondansetron (ZOFRAN) injection PRN, Starting on Thu09/11/17 at 1128, Until Thu09/11/17 at 1429, Nausea, Anesthesia Intra-op, Routine Given 09/11/2017 11:28 AM EST 8 mg oxytocin (PITOCIN) 30 units in sodium chloride 0.9% 500 mL infusion CONTINUOUS PRN, Starting on Thu09/11/17 at 1159, Until Thu09/11/17 at 1429, Anesthesia Intra-op, Routine New Bag 09/11/2017 11:59 AM EST 500 mL/hr 500 mL/hr oxytocin (PITOCIN) 30 units in sodium chloride 0.9% 500 mL infusion PRN, Starting on Thu09/11/17 at 1159, Until Thu09/11/17 at 1429, Anesthesia Intra-op, Routine Given 09/11/2017 11:59 AM EST 20 mLs PHENYLephrine (GEOVANNA-SYNEPHRINE) 20 mg in sodium chloride 250 mL (standard ADULT & Pedi greater than 20kg) infusion CONTINUOUS PRN, Starting on Thu09/11/17 at 1123, Until Thu09/11/17 at 1429, Anesthesia Intra-op, Routine Rate/Dose Change 09/11/2017 12:31 PM EST 10 mcg/min 7.5 mL/hr Rate/Dose Change 09/11/2017 12:16 PM EST 20 mcg/min 15 mL/ hr Rate/Dose Change 09/11/2017 12:05 PM EST 30 mcg/min 22.5 m L/hr PHENYLephrine in NS (PF) (GEOVANNA-SYNEPHRINE) 0.8 mg/10 mL (80 mcg/mL) multi-dose injection Syrg PRN, Starting on Thu09/11/17 at 1123, Until Thu09/11/17 at 1429, Anesthesia Intra-op, Routine Given 09/11/2017 11:23 AM EST 80 mcg propofol (DIPRIVAN) 10 mg/mL bolus injection (Anesthesia) PRN, Starting on Thu09/11/17 at 1215, Until Thu09/11/17 at 1429, Anesthesia Intra-op Given 09/11/2017 1:36 PM EST 40 mg Given 09/11/2017 12:15 PM EST 50 mg Given 09/11/2017 11:52 AM EST 50 mg propofol (DIPRIVAN) infusion CONTINUOUS PRN, Starting on Thu09/11/17 at 1150, Until Thu09/11/17 at 1429, Anesthesia Intra-op, Routine Rate/Dose Change 09/11/2017 12:29 PM EST 80 mcg/kg/min 50.2 mL/hr New Bag 09/11/2017 11:50 AM EST 100 mcg/kg/min 62.8 mL/ hr rocuronium (ZEMURON) multi-dose injection PRN, Starting on Thu09/11/17 at 1154, Until Thu09/11/17 at 1429, Anesthesia Intra-op, Routine Given 09/11/2017 12:45 PM EST 20 mg Given 09/11/2017 12:22 PM EST 20 mg Given 09/11/2017 11:54 AM EST 10 mg succinylcholine (ANECTINE) injection PRN, Starting on Thu09/11/17 at 1142, Until Thu09/11/17 at 1429, Anesthesia Intra-op, Routine Given 09/11/2017 11:42 AM EST 140 mg documented in this encounter Care Teams Superintendent Greens Relationship Specialty Start Date End Date None None PCP - General 05/29/17 09/02/21 documented as of this encounter
--- OUTSIDE RECORDS SUMMARY | 2024-03-03 18:57 | XMS_ITS | Encounter Summary ---
Author Organization Formerly [facility] Address [facility] [place] [address] Care Team Providers Care Supervisor Underwriting Clerks Name Role Phone None Primary Care Provider Unavailabl e Reason for Visit * Auth/Cert Specialty Diagnoses / Procedures Referred By Jose Enrique t Referred To Contact Diagnoses Vasa previa Procedures JUDSON IPI Referral ID Status Reason Start Date Expiration Date Visits Re quested Visits Authorized [id number] 1 1 Encounter Details Date Type Department Care Team ([facility] Contact Info) Description 09/11/2017 10:00 AM EST - 09/11/2017 12:01 PM [place] [id number] Chely Sin MD [facility]STETR[facility] & [place] [address] @ DELIVERY (WRVU 16.13) Social History Tobacco Use Types Packs/Day Years [...] Pam Lake Patient Age: 27 y.o. Language: Zambian Race: Black or Ethnicity: OR Admit date: 07/28/2017 Discharge date and time: 09/15/2017 4:11 PM Attending Physician: Arturo Waterman MD Discharge Physician: Chely Sin MD Care Provider: Dr. Isela Blunt Referring Hospital: [facility] Follow-up Recommendations for Providers: -- Follow up with MFM provider on 09/17/17 -- 2 week depression screen -- 6 week visit with 2hr GTT -- Final pathology Inpatient Provider Contact Information: [facility] QA TEST LEAD Department, Discharge Diagnoses (Hospital Problems) and Secondary [...] on magnesium for neuro protection (complete on /23). On HD#22 she was given a rescue course of steroids [id number] (complete on 08/20). Insulin was titrated up to NPH 20 / 24 U by day of delivery. On HD # 26 patient underwent a planned C/S and additional procedures as above. Findings notable for: ?? Dense adhesions present from anterior uterus to anterior and right lateral abdominal wall / posterior rectus sheath. ? Viable female infant in cephalic presentation, weighing [...] and passing flatus. She was pumping for infant nutrition. Her incision was well-healing with steri strips in place. Her fundal exam was as expected and her lochia was within normal limits. She was discharged to [facility] in good condition and good spirits on [...] Information for the patient's : Michele Lake [[id number]] INFORMATION Michele Lake 09/11/2017 11:58 AM by Lower Segment [...] Weight: 104.6 kg (230 lb 9.6 oz) (09/10/171731) Functional and Cognitive status: Fully functional and cognitively intact Important Studies and Lab Data: Recent Labs 09/15/17 0415 09/14/17 0810 09/13/17 [...] limited due to the late gestational age. 1/9/18 OB Ultrasound GA at US: ??32w4d EFW: [...] REMOVE Please contact the Blood Bank at [phone] for questions. Immunizations Given this Hospitalization: Immunization [...] Nausea. 8 mg Refills: 0 vitamin with kdkjgrvi-Kc-Mdja-FA Tab Take 1 tablet by mouth daily. [...] Depression Contact Numbers: If you see an playground director call: [phone] 9 am - 5 pm, after 5 pm If you see a svp call: [phone] all hours If you see a family practitioner call: [phone] all hours If you were transferred to our institution for delivery and cannot reach your local OB provider, call the playground director numbers. General Instructions Nursing Inpatient Progress C [...] this in detail. Call your doctor or svp for: ??? Fever more than 100.5 ??? [...] follow up appointment. You may call the [facility] at any time for guidance or for answers to questions that come up prior to you follow up appointment. Your [facility] Provider can be reached during office hours at ??? Midwives ??? Obstetricians ??? [facility] Follow-up Clinic AFTER OFFICE HOURS for the playground director or svp customer consulting manager Provider electronic signature confirms that discharge instructions were reviewed with the patient. A copy was printed and given to the patient. Future Appointments and Orders Future Appointments Provider Department Dept Phone 09/17/2017 4:15 PM Emanuel Barrett MD Obstetrics and Gynecology at [place] [phone] 10/23/2017 1:00 PM Li Sepulveda MD Obstetrics [facility] Gynecology at [place] [phone] Future Orders Complete By Expires Durable Medical Equipment Order [[id number] Custom] As directed Process Instructions: Scheduling Instructions: Comments: Pam Lake 1990 [address] [facility] [address] (home) [facility] Central intake- #[phone] fax [phone] [place] Office- [phone] RX: Hospital Grade Electric Breast Pump- Lactina [...] breast pump Size requested: Vendor Name/Contact information: [employer] Discharge References/Attachments HYSTERECTOMY: ABDOMINAL: POST-OP (CAMEROONIAN) GRIEVING (ACTUAL/ANTICIPATED) (CAMEROONIAN) documented in this encounter Discharge Instructions * [...] this in detail. Call your doctor or svp for: ??? Fever more than 100.5 ??? [...] follow up appointment. You may call the [facility] at any time for guidance or for answers to questions that come up prior to you follow up appointment. Your [facility] Provider can be reached during office hours at ??? Midwives ??? Obstetricians ??? [facility] Follow-up Clinic AFTER OFFICE HOURS for the playground director or svp customer consulting manager Provider electronic signature confirms that discharge instructions [...] Depression Contact Numbers: If you see an playground director call: [phone] 9 am - 5 pm, after 5 pm If you see a svp call: [phone] all hours If you see a family practitioner call: [phone] all hours If you were transferred to our institution for delivery and cannot reach your local OB provider, call the playground director numbers. * Attachments The following attachments cannot be sent through Care Everywhere. * HYSTERECTOMY: ABDOMINAL: POST-OP (CAMEROONIAN) * GRIEVING (ACTUAL/ANTICIPATED) (CAMEROONIAN) documented in this encounter Medications at Time [...] 20 tablet 3 09/14/2017 10/27/2017 vitamin with mczejqma-Uj-Erbr-FA Tablet Take 1 tablet by mouth daily. [...] about that. She plans to stay at [facility] after she's been d/c. Understandably, pt reports she has not been able to emotionally process the event of delivery and her baby staying in the ICN yet. Plan: Will arrange for pt to receive gas card. DIEGO Ruiz Pager: [phone] * Pam Valenzuela RN - 09/14/2017 7:43 AM EST Pt [...] has improved with the binder. Pumping for nutrition without difficulty. Getting out [...] Intake/Output Summary (Last 24 hours) at 09/13/17 07 Last data filed at 09/13/17 0610 Gross [...] for discharge Li Sepulveda MD * Claudine Gamino RN - 09/12/2017 6:02 PM EST Back from [facility]. Medicated with 10mg Oxycodone. Pumped x10 mins. No results. * Claudine Gamino RN - 09/12/2017 4:00 PM EST Pumped x15 mins, both breasts utilizing electric breast pump. No colostrum expressed. Reassured Pam that it is ok, victoriano d/t her sig blood loss. Pam back to [facility] to see ojsé luis. Transported by this RN, via wheelchair. Will call when ready to return. * Claudine Gamino RN - 09/12/2017 2:15 PM EST Pam c/o pain and requesting something. Consulted with MD team, too soon for oxycodone and does not take tylenol. After reviewing I&O, labs and vital signs, team ordered Toridol 15mg x 24??. LD * Claudine Gamino RN - 09/12/2017 12:00 PM EST Pam called from N, ready to return for a nap. Escorted [...] IV removed from L hand. Taken to [facility], via wheelchair, by this RN. Instructed to [...] she is ready for me to return. LD * Jhonathan Robertson MD - 09/12/2017 4:57 AM EST Delivery Note Patient ID: Pam Lake is a 27 y.o. year old who is postop day #1 after an supracervical hysterectomy with left distal partial salpingectomy at 34w0d weeks gestation for aknown vasa previa and unknown placenta previa with morbidly adherent placenta. EBL 2.5L. S: The patient complains of incision pain, states PULP SCREEN OPERATOR has been helping. Pumping for nutrition [...] ?? Continue routine care. Will transition from PULP SCREEN OPERATOR to po pain medications. Discontinue amador catheter when patient is ambulatory. ?? Hysterectomy for contraception ?? Plans to pump for nutrition ?? Follow-up: 2 week depression [...] doing well. Plan: Continue routine postoperative care. Sruthix Li Sepulveda MD * Freda Ching RN - 09/11/2017 3:34 PM EST Pt met phase 1 recovery at 1515, friend Ashley at bedside. Pt given 2 mg of IV dilaudid and PULP SCREEN OPERATOR initiated to bring pain down to [...] 09/11/2017 2:07 PM EST Patient Name: Pam Lake Patient Age: 27 y.o. Birthdate: 1990 Admit date: 07/28/2017 Attending Physician: Arturo Waterman MD Stephanie Jessica Jaya 1990 [address] [facility] [address] [facility] [address] ([place]) [employer] Central intake- #[phone] fax [phone] [place] Office- [phone] RX: Hospital Grade Electric Breast Pump- Lactina Breast Pump Length of Need: 3 Months Purpose of Appliance: To Initiate and Maintain Medical Necessity: /Lactating Mother- Z39.1 Breast Engorgement relative to infant born at 34 gestation - BW 2.035 (4lb/8oz) P92.9 Feeding problem of , unspecified Premature in ICN from mother- P07.30 Prematurity Beto Stinson RN Intensive Care Nursery Photographic ProcessorMarsh Buggy Operator of Care Management Phone:# [phone] Beeper: #[id number] Fax: # [phone] * Yoly Cueva MD - 09/10/2017 4:25 [...] personally reviewed and interpreted this NST. * Yoly Cueva MD - 09/10/2017 8:41 AM EST Images [...] discussed on Multidisciplinary Rounds YOLY CUEVA MD Maintainer Sewer And Waterworks PGY-4 08/30/2017 Associated attestation - Crow Vasquez [...] neonatology re: delivery planning for . E. Arturo Vasquez MD Maternal- Medicine * Isela Tse [...] as Appropriate) ?? 08/12/17 0412 08/30/17 0400 09/06/17 1215 Activity [...] Implemented as Appropriate) ?? 09/05/17 1410 09/06/17 1215 Safety Interventions Isolation [...] Therapeutic massage given by NATE Holder. Pam nelson, stating My back feels better. Prior to [...] discussed on Multidisciplinary Rounds JHONATHAN ROBERTSON MD Maintainer [employer] PGY-3 08/30/2017 Associated attestation - Crow Vasquez [...] discussed on Multidisciplinary Rounds JHONATHAN ROBERTSON MD Maintainer [employer] PGY-3 08/30/2017 Associated attestation - Crow Vasquez [...] JHONATHAN ROBERTSON MD 09/07/2017 Associated attestation - Arturo Waterman MD - 09/07/2017 6:04 PM EST I personally reviewed and interpreted this NST. Arturo Waterman MD * Stephanie Moseley MSW - 09/07/2017 4:12 PM EST Social Work Note Office of Care Management Follow Up: HARDWARE TEST ENGINEER met with pt today at bedside to check in on her. Pt is very excited that she will be having herc/s on Thursday and has been talking about holding her baby and being able to meet her. HARDWARE TEST ENGINEER reminded went over [employer] again and let pt know she can use [employer] to get groceries during her [facility] stay. Plan: Arrange for breast pump after delivery and continue to provide support to pt. DIEGO Ruiz Pager: [phone] * Jhonathan Robertson MD - 09/07/2017 6:26 [...] discussed on Multidisciplinary Rounds JHONATHAN ROBERTSON MD Maintainer Sew[employer] Waterworks PGY-3 08/30/2017 Associated attestation - Arturo Waterman MD - 09/07/2017 6:02 PM EST [...] monitor for vaginal bleeding. Plan:??Continue inpt hospitalization. Arturo Waterman MD * Janine Frazier MD - [...] discussed on Multidisciplinary Rounds YOLY CUEVA MD Maintainer [employer] PGY-4 08/30/2017 Associated attestation - Emanuel Barrett [...] Reassuring for gestational age Comments - EMERITA ROSAROI MD PGY3 09/05/17 I was the attending [...] discussed on Multidisciplinary Rounds EMERITA ROSARIO MD Maintainer [employer] PGY3 08/30/2017 Associated attestation - Emanuel Barrett [...] discussed on Multidisciplinary Rounds JHONATHAN ROBERTSON MD Maintainer [employer] PGY3 08/30/2017 Associated attestation - Crow Vasquez [...] and NICU due to risk of hemorrhage. E. Arturo Vasquez MD Maternal- Medicine * Allie Carrillo [...] not included. Obstetrical Antepartum Progress Note Pam Lopez Jaya is a 27 y.o. woman at 32w6d [...] discussed on Multidisciplinary Rounds JHONATHAN ROBERTSON MD Maintainer [employer] PGY3 08/30/2017 Associated attestation - Emanuel Barrett [...] discussed on Multidisciplinary Rounds JHONATHAN ROBERTSON MD Maintainer Sew[employer]works PGY3 08/30/2017 Associated attestation - Emanuel Barrett [...] discussed on Multidisciplinary Rounds JHONATHAN ROBERTSON MD Maintainer [employer] PGY3 08/30/2017 Associated attestation - Emanuel Barrett [...] Social Work Note Office of Care Management HARDWARE TEST ENGINEER met with pt at bedside to check in. Pt reports she is doing well and is still counting down thedays until baby is born. She seems to be in higher spirits the closer the due date is. Pt reports no needs as of now. Plan: F/u with pt next week or as needed. DIEGO Ruiz Pager: [phone] * Jhonathan Robertson MD - 08/31/2017 5:07 [...] discussed on Multidisciplinary Rounds JHONATHAN ROBERTSON MD Maintainer Sew[employer] Waterworks PGY3 08/30/2017 Associated attestation - Emanuel Barrett MD - 09/03/2017 8:22 PM EST I have seen and examined the patient, providing beck components as outlined below. I have reviewed the resident???s above note; my evaluation of the patient is below: ?? 32 1/7 weeks vasa previa. FM felt, no LOF, no bleeding or richard. ?? Afeb VSS Abdomen soft, NT Uterus NT Ext NT ?? I/R 32 1/7 weeks vasa previa status reassuring S/p [...] discussed on Multidisciplinary Rounds JHONATHAN ROBERTSON MD Maintainer [employer] PGY3 08/30/2017 Associated attestation - Crow Vasquez [...] JHONATHAN ROBERTSON MD 08/28/2017 Associated attestation - Arturo Waterman MD - 09/01/2017 9:34 AM EST I personally reviewed and interpreted this NST. Arturo Waterman MD * Wang Barbour - 08/28/2017 3:04 PM EST Nutrition Services - Follow-up Note Pam Lake : 1990 AGE: 27 y.o. Patient Active Problem List Diagnosis Date Noted ??? Hospital-Asthma 07/28/2017 ??? Hospital-Vasa previa 07/09/2017 ??? Low-lying placenta 07/09/2017 ??? Hospital-Insulin controlled gestational diabetes mellitus (GDM): diagnosed at 7 weeks waxgeepmk84/06/2017 ??? Hospital-Previous section x 2 05/29/2017 Reason [...] for ordering her meals. Pt expressed to technical publications writer that she enjoys her current diet order stating it is better. She reported a good appetite without difficulty chewing or swallowing. Nursing documentation notes 100% PO intake. She is tolerating her current diet without nausea or vomiting. Pt denies constipation and diarrhea, last BM 08/27/17 per pt. Pt declined need for scheduled snacks nicolas y, pt will call dietary if needed. Pt had no further questions at this time. Encouraged pt to contact Food and Nutrition services with any questions that may arise. Nutrition Plan: Continue current diet. Encourage good po intake. Monitor weight. Support and encouragement provided. Nutrition services to follow thru hospital course unless consulted in the interim. RAGHAVENDRA Koehler * Jhonathan Robertson MD - 08/28/2017 4:33 AM EST Images [...] Gabriel MD - 08/27/2017 7:11 PM EST shift superintendent caustic cresylate Progress Note Presented to room to discuss [...] struggling with her stay on the [facility]. She feels like she is in [facility] [...] work done. Pt requesting to talk to . I relayed to DR. Cueva that Pt [...] CUEVA MD PGY-4 08/26/2017 Associated attestation - Arturo Waterman MD - 08/26/2017 4:43 PM EST I personally reviewed and interpreted this NST. Arturo Waterman MD * Yoly Cueva MD - [...] Note Office of Care Management Follow Up: HARDWARE TEST ENGINEER met with pt at bedside to check in on her. Pt reports she is doing well and is excited that sheis getting closer to delivery date. She seems in higher spirits today than last week and reports she had somewhat of a relaxing New Year's Rosa. Plan: Deliver weekly gas card to pt and check in on her as needed. DIEGO Ruiz Pager: [phone] * Yoly Cueva MD - 08/25/2017 1:50 [...] Therapeutic massage given by NATE Alford. Pam petersonative, stating That felt so good!. Prior to [...] hemorrhage. Jane Vasquez MD Maternal- Medicine * Vanessa [...] SOTO MD PGY4 08/23/2017 Associated attestation - Jordno Zurita MD - 08/25/2017 7:44 AM EST [...] Vasquez MD Maternal- Medicine * Desean Soto L - 08/23/2017 6:08 AM EST Images from [...] Rosario, PGY3. DESEAN SOTO MD PGY4 08/23/2017 * Chely Sin MD - 08/22/2017 3:23 PM EST Antepartum [...] interpreted this NST. Chely Sin MD * Trevthomas Emerita L - 08/22/2017 12:14 PM EST Images [...] diabetes mellitus (GDM): diagnosed at 7 weeks lrmquypxw17/06/2017 ??? Hospital-Previous section x 2 05/29/2017 Reason [...] swallowing. Nursing documentation notes 100% PO intake. Crop Nutrition Scientist offered to have snacks sent between meals but pt declined stating she did not to waste them as she does not always eats them. Pt made joke with technical publications writer stating she wants unhealthyfoods between meals [...] consulted in the interim. RAGHAVENDRA Koehler * Chely Sin MD - 08/21/2017 2:48 [...] interpreted this NST. Chely Sin MD * Trevthomas Emerita L - 08/21/2017 7:01 AM EST Images from [...] MD Maternal- Medicine * Desean Soto - 08/20/2017 5:07 PM EST PGY-4 NST [...] note and interpretation. Obdulia Crenshaw MD * Dseean Soto - 08/20/2017 7:16 AM EST Images [...] Rounds Note written in conjunction with Emerita Rosario PGY-3 DESEAN SOTO MD PGY-4 08/20/2017 Associated [...] Note Office of Care Management Follow Up: HARDWARE TEST ENGINEER met with pt at bedside to f/u from yesterday's visit. Pt seems to have calmed down quite a bit from yesterday and was very agreeable to speaking with HARDWARE TEST ENGINEER. We talked about what the pt currently has control of in her life and how she feels about it. HARDWARE TEST ENGINEER also went over some CBT techniques that pt can use when she begins to feel overwhelmed. BIT referral was also made and someone will be coming to meet with pt. Plan: HARDWARE TEST ENGINEER will continue to follow pt for needs. DIEGO Ruiz Pager: [phone] * Rio RicoDesean - 08/19/2017 7:16 AM EST Images from [...] Note Office of Care Management Follow Up: HARDWARE TEST ENGINEER met with pt at bedside. She was visibly upset and crying. Pt is emotionally distressed over notbeing able to see her children on a regular basis and not having the freedom to leave the hospital. Plan: HARDWARE TEST ENGINEER will put in BIT referral and provide pt with some relaxation tips and references. DIEGO Ruiz Pager: [phone] * Latasha Nj - 08/18/2017 4:39 PM [...] LATASHA NJ MD PGY3 Associated attestation - Arturo Waterman MD - 08/18/2017 5:16 PM EST I personally reviewed and interpreted this NST. Arturo Waterman MD * Caridad Miranda RN - [...] her feelings of anger, frustration, & anxiousness. LD * Yoly Cueva MD - 08/15/2017 1:27 PM EST PGY-4 [...] tertiary care [facility] Reassuring testing to date GDM A2 Plan: [...] EST Nutrition Services - Follow-up Note Pam Canalesquez : 1990 AGE: 27 y.o. Patient Active Problem List Diagnosis Date Noted ??? Hospital-Asthma 07/28/2017 ??? Hospital-Vasa previa 07/09/2017 ??? Low-lying placenta 07/09/2017 ??? Hospital-Insulin controlled gestational diabetes mellitus (GDM): diagnosed at 7 weeks jajeuihwb44/06/2017 ??? Hospital-Previous section x 2 05/29/2017 Reason [...] MD PGY4 08/13/2017 Associated attestation - Percy Huerat MD - 08/15/2017 5:24 PM EST I [...] interpretation. Obdulia Crenshaw MD * Stephanie Moseley HARDWARE TEST ENGINEER - 08/10/2017 11:59 AM EST Social Work Note Office of Care Management HARDWARE TEST ENGINEER met with pt at bedside to check in with her. Pt reports she is doing well, just tired. Presentsno needs at this time. Plan: HARDWARE TEST ENGINEER informed pt she would look into gas card from [employer] for this week. DIEGO Ruiz Pager: [phone] * Emerita Rosario - 08/10/2017 11:01 AM EST Images from [...] bleeding occurs EMANUEL BARRETT MD * Belkis Strong, RN - 08/09/2017 9:06 PM EST VS [...] the Resident???s interpretation. PERCY HUERTA MD * Joan Emerita L - 08/08/2017 5:44 AM EST Images from [...] ROSARIO MD PGY3 08/07/17 Associated attestation - Arturo Waterman MD - 08/08/2017 9:03 AM EST I personally reviewed and interpreted this NST. Arturo Waterman MD * Bridget Leonard, RN - [...] consulted in the interim. RAGHAVENDRA Koehler * Desean Soto - 08/07/2017 5:20 AM [...] 27 y.o. woman at 28w4d with an CHITRA of 10/25/2017, admitted for [...] management with Dr. Soto. I reviewed Dr. Soot's note and agree with the documented findings [...] Jane Vasquez MD Maternal- Medicine * Emerita Rosaroi - 08/04/2017 5:59 PM EST NST Note: [...] note and interpretation. Obdulia Crenshaw MD * BrittanyDesean Rosie - 08/04/2017 7:26 AM EST Images from [...] ROSARIO MD PGY3 08/04/17 Associated attestation - Arturo Waterman MD - 08/04/2017 3:59 PM EST I personally reviewed and interpreted this NST. Arturo Waterman MD * Stephanie Moseley MSW - 08/03/2017 2:37 PM EST Social Work Note Office of Care Management Follow Up: HARDWARE TEST ENGINEER met with pt as she was asking about a gas card so her children could visit her in the hospital.HARDWARE TEST ENGINEER spoke with Nuvia at [employer] and she has tubed over a $20 gas card for pt. Pt was very happy and appreciative of gas card. Plan: HARDWARE TEST ENGINEER will continue to follow pt for needs. DIEGO Ruiz Pager: [phone] * Emerita Rosario Rosie - 08/03/2017 9:03 AM EST Obstetrical [...] 2 24 Hour Events -Reactive NST yesterday -[place] contractions yesterday, nothing seen on toco Subjective: [...] she has a bowel movement. * Desean Soto - 08/02/2017 12:30 PM EST PGY-4 NST Review NST [...] not give out gas cards for visiting. DIEGO ORTIZ Weekend Quality Management Coordinator Pager [phone] * Jhonathan Robertson MD - 08/01/2017 12:11 [...] Note Office of Care Management Follow Up: DIEGO met with pt at bedside today and gave her information on parent/child center in [facility]. Pt declined referral at this time but asked technical publications writer to check back later. HARDWARE TEST ENGINEER also spoke with pt about a concern [...] a volunteer cuddler during her stay here. HARDWARE TEST ENGINEER told pt she would ask medical staff. Plan: HARDWARE TEST ENGINEER will continue to follow pt for needs. DIEGO Ruiz Pager: [phone] * Li Lehman, RD - 07/31/2017 3:38 PM EST NUTRITION SERVICES INPATIENT VISIT FOR Gestational Diabetes Pam Lopez Lake is a 27 y.o. female Patient [...] and be left alone. BS obtained by rn observation, will plan to leave pt alone for [...] not want to talk much to this technical publications writer. Activity Level: sedentary/bedrest BMI before : [...] had some pre-existing pre-diabetes or DM2 - tae villalpandoantly denies this and says she was tested [...] ROSARIO MD PGY3 07/29/17 Associated attestation - Arturo Waterman MD - 07/29/2017 1:52 PM EST I personally reviewed and interpreted this NST. Arturo Waterman MD * Emerita Rosario - 07/29/2017 [...] PM EST Obstetrical Admission Note Referring Hospital: [facility] Initial Care Provider (if early referral or [...] Dispense Refill Last Dose ??? vitamin with xzuxkfbp-As-[facility]-FA Tablet Take 1 tablet by mouth daily. [...] 145, Variability: moderate, Accels: yes, Decels: none, [place]: No contractions Reactive for gestational age Record [...] seen and discussed with Dr. Zurita, Attending QA TEST LEAD. EMERITA ROSARIO MD PGY3 07/28/2017 Attending note [...] Notes * Plan of Care - Asif Grove RN - 09/15/2017 4:51 PM EST Problem: Patient Care Overview Goal: Plan of Care Review Outcome: Outcome (s) achieved Date Met: 09/15/17 09/15/17 1644 Plan of Care Review Progress progress toward functional goals as expected OUTCOME EVALUATION NOTE: OUTCOME SUMMARY: Pt ambulating to visit in ICN. Tolerating diet. Voiding without difficulty. Reports PRN painmedication to adequately control pain level. Assisted with breast pump. Reviewed breast massage andhand expression. Discharge instructions reviewed and questions answered. PLAN MOVING FORWARD: Discharge home - pt plans to stay at [facility] while in ICN. INDIVIDUALIZED FALL PREVENTION INTERVENTIONS: [...] Outcome (s) achieved Date Met: 09/15/17 09/10/17 18109/12/1718 09/13/17 0330 Individualization Patient Specific Preferences -- [...] Outcome: Outcome (s) achieved Date Met: 09/15/17 09/13/1732909/15/17 0954 Activity and Safety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 care planning. DIEGO Walker Pager: [phone] * Med Student H&P - Yossi Zurita [...] -3.175 kg (-7 lb) Movement: Yes Contractions: [place] contractions. Leaking: None Bleeding: none Preeclampsia signs and symptoms: None Past Obstetric history: OB History Para Term AB Living 5 2 2 0 2 3 SAB TAB Ectopic Multiple Live Births 1 1 1 Obstetric Comments Gestational diabetes 1st , pre-eclampsia 1st PMH: Asthma (rescue inhaler used ~3X per year when sick) Surgical history: In September at [facility] had to have her Mirena removed surgically [...] Dispense Refill Last Dose ??? vitamin with [id number] Tablet Take 1 tablet by mouth daily. [...] 150, Variability: moderate, Accels: yes, Decels: variable, [place]: None Category: II Record Review Labs Most [...] POCT GLUCOSE Routine 09/10/2017 12:58 PM EST VETERINARY PHYSIOLOGIST SCAN 09/10/2017 12:00 AM EST POCT GLUCOSE [...] 07/28/2017 6:55 PM EST TYPE AND SCREEN (MC/CGP/CAROLE) Routine 07/28/2017 6:55 PM EST RAPID DRUG SCREEN, URINE (TEREZA REQUEST) Routine 07/28/2017 6:45 PM EST RAPID DRUG SCREEN W/ CONFIRMATION, URINE Routine 07/28/2017 6:45 PM EST THC (MARIJUANA), URINE, CONFIRMATION Routine 07/28/2017 6:45 PM EST documented in this encounter Results * (ABNORMAL) Differential, Automated (09/15/2017 4:15 AM EST) Neutrophils % 53.4 % [facility] Neutr Abs (ANC) 3.14 1.70 - 6.10 x10(3)/mc L [facility] Lymphocytes % 33.3 % [facility] Lymphocytes Abs 2.0 0.9 - 3.2 x10(3)/mc L [facility] Monocytes % 9.7 % [facility] Monocyte Abs 0.6 0.3 - 0.9 x10(3)/mc L [facility] Eosinophils % 2.4 % [facility] Eosinophils Abs 0.1 0.0 - 0.4 x10(3)/mc L [facility] Basophils % 0.3 % [facility] Basophils Abs 0.0 0.0 - 0.1 x10(3)/mc L [facility] Immature Gran % 0.90 % [facility] Comment: Immature granulocytes(IG's)percentage and absolute count will include metamyelocytes, myelocytes, and promyelocytes. Blood smears from CBCs yielding IG's will be scanned manually for concordance. If this scan disagrees with the automated IG or if promyelocytes are noted, a manual differential will be performed. Josie Gran Abs 0.05(H) 0.00 - 0.04 x10(3)/mc L [facility] Blood specimen (specimen) 09/15/2017 4:15 AM EST 09/15/2017 4:30 AM EST Narrative Resulting Agency Comment Spec In Lab Arturo Waterman MD HEMATOLOGY ORDERABLE S [facility] [place] [address] * (ABNORMAL) Hemogram (09/15/2017 4:15 AM EST) WBC 5.9 4.0 - 9.5 x10(3)/[facility] RBC 2.39(L) 4.00 - 5.21 x10(6)/[facility] Hemoglobin 7.0(L) 11.7 - 15.5 gm/dL [facility] Hematocrit 20.8(L) 35.7 - 45.8 % [facility] MCV 87.0 82.6 - 94.4 [facility] MCH 29.3 27.1 - 32.0 pg [facility] MCHC 33.7 31.7 - 35.0 gm/dL [facility] Platelets 247 145 - 357 x10(3)/[facility] RDWSD 41.6 37.0 - 46.0 [facility] RDWCV 13.4 11.5 - 14.1 % [facility] MPV 8.4 7.6 - 12.9 [facility] nRBC % Auto 0.0 % [facility] nRBC Abs Auto 0.000 0.000 - 0.000 x10(3)/[facility] Blood specimen (specimen) 09/15/2017 4:15 AM EST 09/15/2017 4:30 AM EST Narrative Resulting Agency Comment Spec In Lab Arturo Waterman MD HEMATOLOGY ORDERABLE S Performing Organization Address City/State/[facility] Co de Phone Number [facility] [place] [address] * Basic Metabolic Panel (non-fasting) (09/15/2017 4:15 AM EST) Glucose Lvl 113 65 - 199 mg/dL [facility] Comment:Diabetes: >=200 mg/d L plus symptoms BUN 9 8 - 18 mg/dL [facility] Creatinine 0.93 0.70 - 1.20 mg/dL [facility] Sodium 140 135 - 145 mmol/L [facility] Potassium 3.5 3.5 - 5.0 mmol/L [facility] Comment: Please note: ??Patients with WBC >100,000 may have falsely elevated Potassium levels. ??For accurate Potassium quantification in these patients send serum separator tube (gold top) for subsequent determinations. ??Contact the Clinical Chemistry Laboratory if there are any questions. Chloride 102 98 - 107 mmol/L [facility] CO2 27 22 - 31 mmol/L [facility] Anion Gap 11 5 - 15 mmol/L [facility] Calcium 8.6 8.5 - 10.5 mg/dL [facility] Estimated GFR >60 >=60 [facility] Comment: The reported eGFR should be multiplied by 1.2 for patients. The MDRD is not an appropriate measure of renal function for patients with body mass extremes or in patients with acute kidney failure. http://[employer]CellCentric/DHnkdep http://[employer]com/DHMCnkf Blood specimen (specimen) 09/15/2017 4:15 AM EST 09/15/2017 4:30 AM EST Narrative Resulting Agency Comment Spec In Lab Arturo Waterman MD CHEMISTRY ORDERABLES [facility] [address] * (ABNORMAL) Differential, Automated (09/14/2017 8:10 AM EST) Neutrophils % 57.5 % [facility] Neutr Abs (ANC) 3.93 1.70 - 6.10 x10(3)/ L [facility] Lymphocytes % 31.8 % [facility] Lymphocytes Abs 2.2 0.9 - 3.2 x10(3)/[facility] Monocytes % 8.5 % [facility] Monocyte Abs 0.6 0.3 - 0.9 x10(3)/[facility] Eosinophils % 1.2 % [facility] Eosinophils Abs 0.1 0.0 - 0.4 x10(3)/[facility] Basophils % 0.3 % [facility] Basophils Abs 0.0 0.0 - 0.1 x10(3)/[facility] Immature Gran % 0.70 % [facility] Comment: Immature granulocytes(IG's)percentage and absolute count will include metamyelocytes, myelocytes, and promyelocytes. Blood smears from CBCs yielding IG's will be scanned manually for concordance. If this scan disagrees with the automated IG or if promyelocytes are noted, a manual differential will be performed. Josie Gran Abs 0.05(H) 0.00 - 0.04 x10(3)/ L [facility] Blood specimen (specimen) 09/14/2017 8:10 AM EST 09/14/2017 8:38 AM EST Narrative Resulting Agency Comment Spec In Lab Arturo Waterman MD HEMATOLOGY ORDERABLE S Performing Organization Address [facility]/ZIP Co de Phone Number [facility] [address] * (ABNORMAL) Hemogram (09/14/2017 8:10 AM EST) WBC 6.8 4.0 - 9.5 x10(3)/[facility] RBC 2.24(L) 4.00 - 5.21 x10(6)/[facility] Hemoglobin 6.6(L) 11.7 - 15.5 gm/dL [facility] Hematocrit 19.4(L) 35.7 - 45.8 % [facility] MCV 86.6 82.6 - 94.4 [facility] MCH 29.5 27.1 - 32.0 pg [facility] MCHC 34.0 31.7 - 35.0 gm/dL [facility] Platelets 213 145 - 357 x10(3)/[facility] RDWSD 41.7 37.0 - 46.0 [facility] RDWCV 13.6 11.5 - 14.1 % [facility] MPV 8.3 7.6 - 12.9 [facility] nRBC % Auto 0.0 % [facility] nRBC Abs Auto 0.000 0.000 - 0.000 x10(3)/[facility] Blood specimen (specimen) 09/14/2017 8:10 AM EST 09/14/2017 8:38 AM EST Narrative Resulting Agency Comment Spec In Lab Arturo Waterman MD HEMATOLOGY ORDERABLE S [facility] [place] [address] * (ABNORMAL) Basic Metabolic Panel (non-fasting) (09/14/2017 8:10 AM EST) Pathologist [facility] Glucose Lvl 97 65 - 199 mg/dL [facility] Comment:Diabetes: >=200 mg/d L plus symptoms BUN 6(L) 8 - 18 mg/dL [facility] Creatinine 0.54(L) 0.70 - 1.20 mg/dL [facility] Sodium 140 135 - 145 mmol/L [facility] Potassium 3.7 3.5 - 5.0 mmol/L [facility] Comment: Please note: ??Patients with WBC >100,000 may have falsely elevated Potassium levels. ??For accurate Potassium quantification in these patients send serum separator tube (gold top) for subsequent determinations. ??Contact the Clinical Chemistry Laboratory if there are any questions. Chloride 102 98 - 107 mmol/L [facility] CO2 27 22 - 31 mmol/L [facility] Anion Gap 11 5 - 15 mmol/L [facility] Calcium 8.5 8.5 - 10.5 mg/dL [facility] Estimated GFR >60 >=60 [facility] Comment: The reported eGFR should be multiplied by 1.2 for patients. The MDRD is not an appropriate measure of renal function for patients with body mass extremes or in patients with acute kidney failure. http://HouseTrip/DHnkdep [email or web address]/DHMCnkf Blood specimen (specimen) 09/14/2017 8:10 AM EST 09/14/2017 8:38 AM EST Narrative Resulting Agency Comment Spec In Lab Arturo Waterman MD CHEMISTRY ORDERABLES Performing Organization Address City/State/[facility] Co de Phone Number [facility] [place] [address] * (ABNORMAL) Differential, Automated (09/13/2017 6:25 AM EST) Neutrophils % 60.5 % [facility] Neutr Abs (ANC) 5.31 1.70 - 6.10 x10(3)/mc L [facility] Lymphocytes % 27.8 % [facility] Lymphocytes Abs 2.4 0.9 - 3.2 x10(3)/mc L [facility] Monocytes % 10.1 % [facility] Monocyte Abs 0.9 0.3 - 0.9 x10(3)/mc L [facility] Eosinophils % 0.7 % [facility] Eosinophils Abs 0.1 0.0 - 0.4 x10(3)/[facility] Basophils % 0.3 % [facility] Basophils Abs 0.0 0.0 - 0.1 x10(3)/[facility] Immature Gran % 0.60 % [facility] Comment: Immature granulocytes(IG's)percentage and absolute count will include metamyelocytes, myelocytes, and promyelocytes. Blood smears from CBCs yielding IG's will be scanned manually for concordance. If this scan disagrees with the automated IG or if promyelocytes are noted, a manual differential will be performed. Josie Gran Abs 0.05(H) 0.00 - 0.04 x10(3)/[facility] Blood specimen (specimen) 09/13/2017 6:25 AM EST 09/13/2017 6:40 AM EST Narrative Resulting Agency Comment Spec In Lab Arturo Waterman MD HEMATOLOGY ORDERABLE S [facility] [place] [place] [address] * (ABNORMAL) Hemogram (09/13/2017 6:25 AM EST) WBC 8.8 4.0 - 9.5 x10(3)/[facility] RBC 2.43(L) 4.00 - 5.21 x10(6)/[facility] Hemoglobin 7.1(L) 11.7 - 15.5 gm/dL [facility] Hematocrit 20.9(L) 35.7 - 45.8 % [facility] MCV 86.0 82.6 - 94.4 fL [facility] MCH 29.2 27.1 - 32.0 pg [facility] MCHC 34.0 31.7 - 35.0 gm/dL [facility] Platelets 187 145 - 357 x10(3)/[facility] RDWSD 41.3 37.0 - 46.0 fL [facility] RDWCV 13.4 11.5 - 14.1 % [facility] MPV 8.3 7.6 - 12.9 [facility] nRBC % Auto 0.0 % [facility] nRBC Abs Auto 0.000 0.000 - 0.000 x10(3)/[facility] Blood specimen (specimen) 09/13/2017 6:25 AM EST 09/13/2017 6:40 AM EST Narrative Resulting Agency Comment Spec In Lab Arturo Waterman MD HEMATOLOGY ORDERABLE S [facility] [place] [place] [address] * (ABNORMAL) Basic Metabolic Panel (non-fasting) (09/13/2017 6:25 AM EST) Glucose Lvl 94 65 - 199 mg/dL [facility] Comment:Diabetes: >=200 mg/d L plus symptoms BUN 7(L) 8 - 18 mg/dL [facility] Creatinine 0.65(L) 0.70 - 1.20 mg/dL [facility] Sodium 137 135 - 145 mmol/L [facility] Potassium 3.7 3.5 - 5.0 mmol/L [facility] Comment: Please note: ??Patients with WBC >100,000 may have falsely elevated Potassium levels. ??For accurate Potassium quantification in these patients send serum separator tube (gold top) for subsequent determinations. ??Contact the Clinical Chemistry Laboratory if there are any questions. Chloride 99 98 - 107 mmol/L [facility] CO2 24 22 - 31 mmol/L [facility] Anion Gap 14 5 - 15 mmol/L [facility] Calcium 8.4(L) 8.5 - 10.5 mg/dL [facility] Estimated GFR >60 >=60 [facility] Comment: The reported eGFR should be multiplied by 1.2 for patients. The MDRD is not an appropriate measure of renal function for patients with body mass extremes or in patients with acute kidney failure. [email or web address] [email or web address] Blood specimen (specimen) 09/13/2017 6:25 AM EST 09/13/2017 6:40 AM EST Narrative Resulting Agency Comment Spec In Lab Arturo Waterman MD CHEMISTRY ORDERABLES [facility] [place] [place] [address] * (ABNORMAL) Differential, Automated (09/12/2017 6:10 AM EST) Neutrophils % 66.0 % [facility] Neutr Abs (ANC) 5.44 1.70 - 6.10 x10(3)/mc L [facility] Lymphocytes % 23.3 % [facility] Lymphocytes Abs 1.9 0.9 - 3.2 x10(3)/mc [facility] Monocytes % 9.7 % [facility] Monocyte Abs 0.8 0.3 - 0.9 x10(3)/mc L [facility] Eosinophils % 0.2 % [facility] Eosinophils Abs 0.0 0.0 - 0.4 x10(3)/mc L [facility] Basophils % 0.2 % [facility] Basophils Abs 0.0 0.0 - 0.1 x10(3)/mc L [facility] Immature Gran % 0.60 % [facility] Comment: Immature granulocytes(IG's)percentage and absolute count will include metamyelocytes, myelocytes, and promyelocytes. Blood smears from CBCs yielding IG's will be scanned manually for concordance. If this scan disagrees with the automated IG or if promyelocytes are noted, a manual differential will be performed. Josie Gran Abs 0.05(H) 0.00 - 0.04 x10(3)/mc L [facility] Blood specimen (specimen) 09/12/2017 6:10 AM EST 09/12/2017 6:21 AM EST Narrative Resulting Agency Comment Spec In Lab Arturo Waterman MD HEMATOLOGY ORDERABLE S [facility] [place] [address] * (ABNORMAL) Hemogram (09/12/2017 6:10 AM EST) WBC 8.2 4.0 - 9.5 x10(3)/[facility] RBC 2.62(L) 4.00 - 5.21 x10(6)/[facility] Hemoglobin 7.6(L) 11.7 - 15.5 gm/dL [facility] Comment: This result has been called to EMERITA CADENA by Gail Ramires on 09 12 2017 at 0635, and has been read back. Hematocrit 22.1(L) 35.7 - 45.8 % [facility] MCV 84.4 82.6 - 94.4 [facility] MCH 29.0 27.1 - 32.0 pg [facility] MCHC 34.4 31.7 - 35.0 gm/dL [facility] Platelets 190 145 - 357 x10(3)/[facility] RDWSD 40.1 37.0 - 46.0 [facility] RDWCV 13.2 11.5 - 14.1 % [facility] MPV 8.5 7.6 - 12.9 [facility] nRBC % Auto 0.0 % [facility] nRBC Abs Auto 0.000 0.000 - 0.000 x10(3)/[facility] Blood specimen (specimen) 09/12/2017 6:10 AM EST 09/12/2017 6:21 AM EST Narrative Resulting Agency Comment Spec In Lab Arturo Waterman MD HEMATOLOGY ORDERABLE S [facility] [place] [place] [address] * (ABNORMAL) Basic Metabolic Panel (non-fasting) (09/12/2017 6:10 AM EST) Glucose Lvl 87 65 - 199 mg/dL [facility] Comment:Diabetes: >=200 mg/d L plus symptoms BUN 5(L) 8 - 18 mg/dL [facility] Creatinine 0.57(L) 0.70 - 1.20 mg/dL [facility] Sodium 135 135 - 145 mmol/L [facility] Potassium 4.3 3.5 - 5.0 mmol/L [facility] Comment: Please note: ??Patients with WBC >100,000 may have falsely elevated Potassium levels. ??For accurate Potassium quantification in these patients send serum separator tube (gold top) for subsequent determinations. ??Contact the Clinical Chemistry Laboratory if there are any questions. Chloride 99 98 - 107 mmol/L [facility] CO2 24 22 - 31 mmol/L [facility] Anion Gap 12 5 - 15 mmol/L [facility] Calcium 7.8(L) 8.5 - 10.5 mg/dL [facility] Estimated GFR >60 >=60 [facility] Comment: The reported eGFR should be multiplied by 1.2 for patients. The MDRD is not an appropriate measure of renal function for patients with body mass extremes or in patients with acute kidney failure. [email or web address]/DHnkdep [email or web address]/DHMCnkf Blood specimen (specimen) 09/12/2017 6:10 AM EST 09/12/2017 6:21 AM EST Narrative Resulting Agency Comment Spec In Lab Arturo Waterman MD CHEMISTRY ORDERABLES Performing Organization Address [facility]/ZIP Co de Phone Number [facility] [place] [address] * (ABNORMAL) Magnesium (09/12/2017 6:10 AM EST) Magnesium 0.63(L) 0.69 - 1.07 mmol/L [facility] Blood specimen (specimen) 09/12/2017 6:10 AM EST 09/12/2017 6:21 AM EST Narrative Resulting Agency Comment Spec In Lab Arturo Waterman MD CHEMISTRY ORDERABLES Performing Organization Address [facility] Co de Phone Number [facility] [place] [address] * Specimen to Pathology (09/11/2017 4:04 PM EST) AP Specimen 09/11/2017 4:04 PM EST 09/11/2017 4:04 PM EST Narrative [facility] - 09/11/2017 4:04 PM EST Specimen requisition ordered. ??Separate Pathology report to follow Arturo Waterman MD PATHOLOGY/CYTOLOGY O RDERABLES Performing Organization Address [facility] Co de Phone Number [facility] [place] [address] * (ABNORMAL) Differential, Automated (09/11/2017 2:57 PM EST) Neutrophils % 86.4 % [facility] Neutr Abs (ANC) 11.87(H) 1.70 - 6.10 x10(3)/mc L [facility] Lymphocytes % 8.5 % [facility] Lymphocytes Abs 1.2 0.9 - 3.2 x10(3)/mc L [facility] Monocytes % 4.4 % [facility] Monocyte Abs 0.6 0.3 - 0.9 x10(3)/mc L [facility] Eosinophils % 0.0 % [facility] Eosinophils Abs 0.0 0.0 - 0.4 x10(3)/[facility] Basophils % 0.1 % [facility] Basophils Abs 0.0 0.0 - 0.1 x10(3)/[facility] Immature Gran % 0.60 % [facility] Comment: Immature granulocytes(IG's)percentage and absolute count will include metamyelocytes, myelocytes, and promyelocytes. Blood smears from CBCs yielding IG's will be scanned manually for concordance. If this scan disagrees with the automated IG or if promyelocytes are noted, a manual differential will be performed. Josie Gran Abs 0.08(H) 0.00 - 0.04 x10(3)/[facility] Blood specimen (specimen) 09/11/2017 2:57 PM EST 09/11/2017 3:03 PM EST Narrative Resulting Agency Comment Spec In Lab Arturo Waterman MD HEMATOLOGY ORDERABLE S [facility] [place] [place] [address] * (ABNORMAL) Hemogram (09/11/2017 2:57 PM EST) WBC 13.8(H) 4.0 - 9.5 x10(3)/[facility] RBC 3.44(L) 4.00 - 5.21 x10(6)/[facility] Hemoglobin 10.3(L) 11.7 - 15.5 gm/dL [facility] Hematocrit 29.0(L) 35.7 - 45.8 % [facility] MCV 84.3 82.6 - 94.4 fL [facility] MCH 29.9 27.1 - 32.[address] [facility] MCHC 35.5(H) 31.7 - 35.0 gm/dL [facility] Platelets 218 145 - 357 x10(3)/[facility] RDWSD 38.5 37.0 - 46.0 [facility] RDWCV 12.8 11.5 - 14.1 % [facility] MPV 8.7 7.6 - 12.9 [facility] nRBC % Auto 0.0 % [facility] nRBC Abs Auto 0.000 0.000 - 0.000 x10(3)/mcL [facility] Blood specimen (specimen) 09/11/2017 2:57 PM EST 09/11/2017 3:03 PM EST Narrative Resulting Agency Comment Spec In Lab Arturo Waterman MD HEMATOLOGY ORDERABLE S Performing Organization Address [facility] [facility]ZIP Co de Phone Number [facility] [place] [address] * (ABNORMAL) Magnesium (09/11/2017 2:57 PM EST) [facility] Magnesium 0.52(L) 0.69 - 1.07 mmol/L [facility] Blood specimen (specimen) 09/11/2017 2:57 PM EST 09/11/2017 3:03 PM EST Narrative Resulting Agency Comment Spec In Lab Arturo Waterman MD CHEMISTRY ORDERABLES Performing Organization Address City/[facility] Co de Phone Number [facility] [place] [address] * (ABNORMAL) Basic Metabolic Panel (non-fasting) (09/11/2017 2:57 PM EST) Glucose Lvl 130 65 - 199 mg/dL [facility] Comment:Diabetes: >=200 mg/d L plus symptoms BUN 6(L) 8 - 18 mg/dL [facility] Creatinine 0.44(L) 0.70 - 1.20 mg/dL [facility] Sodium 138 135 - 145 mmol/L [facility] Potassium 4.1 3.5 - 5.0 mmol/L [facility] Comment: Please note: ??Patients with WBC >100,000 may have falsely elevated Potassium levels. ??For accurate Potassium quantification in these patients send serum separator tube (gold top) for subsequent determinations. ??Contact the Clinical Chemistry Laboratory if there are any questions. Chloride 103 98 - 107 mmol/L [facility] CO2 21(L) 22 - 31 mmol/L [facility] Anion Gap 14 5 - 15 mmol/L [facility] Calcium 8.1(L) 8.5 - 10.5 mg/dL [facility] Estimated GFR >60 >=60 [facility] Comment: The reported eGFR should be multiplied by 1.2 for patients. The MDRD is not an appropriate measure of renal function for patients with body mass extremes or in patients with acute kidney failure. http://HouseTrip/DHnkdep http://HouseTrip/DHMCnkf Blood specimen (specimen) 09/11/2017 2:57 PM EST 09/11/2017 3:03 PM EST Narrative Resulting Agency Comment Spec In Lab Arturo Waterman MD CHEMISTRY ORDERABLES Performing Organization Address City/[facility]/ZIP Co de Phone Number [facility] [place] [address] * Fibrinogen (09/11/2017 2:57 PM EST) Fibrinogen 361 180 - 510 mg/dL [facility] Comment: A fibrinogen level >100 mg/dL is adequate for hemostasis in most patients without underlying bleeding disorders. Blood specimen (specimen) 09/11/2017 2:57 PM EST 09/11/2017 3:03 PM EST Narrative Resulting Agency Comment Spec In Lab Arturo Waterman MD HEMATOLOGY ORDERABLE S Performing Organization Address City/[facility]/ZIP Co de Phone Number [facility] [place] [address] * APTT (09/11/2017 2:57 PM EST) PTT 30 25 - 35 sec [facility] Comment: The recommended therapeutic range [...] Narrative Resulting Agency Comment Spec In Lab Arturo Waterman MD HEMATOLOGY ORDERABLE S Performing Organization Address [facility] Co de Phone Number [facility] [place] [address] * (ABNORMAL) Prothrombin Time (09/11/2017 2:57 PM EST) PT 14.4(H) 11.8 - 14.0 sec [facility] INR 1.2(H) 0.9 - 1.1 [facility] Comment: An INR <2.0 indicates [...] Narrative Resulting Agency Comment Spec In Lab Arturo Waterman MD HEMATOLOGY ORDERABLE S Performing Organization Address City/[facility]/ZIP Co de Phone Number [facility] [place] [address] * XR Abdomen 1 view (Generic) (09/11/2017 [...] PM EST 09/11/2017 1:53 PM EST Narrative [facility] - 09/11/2017 1:53 PM EST Specimen requisition ordered. ??Separate Pathology report to follow Chely Sin MD PATHOLOGY/CYTOLOGY O JORGE ALBERTO Performing Organization Address City/[facility]/ZIP Co de Phone Number [facility] [place] [address] * Specimen to Pathology (09/11/2017 1:30 PM EST) AP Specimen 09/11/2017 1:30 PM EST 09/11/2017 1:30 PM EST Narrative [facility] - 09/11/2017 1:30 PM EST Specimen requisition ordered. ??Separate Pathology report to follow Arturo Waterman MD PATHOLOGY/CYTOLOGY O RDERABLES [facility] [place] [address] * Prepare RBC (09/11/2017 12:05 PM EST) Dispensed? Yes [facility] Blood specimen (specimen) 09/11/2017 12:05 PM EST 09/11/2017 12:03 PM EST Arturo Waterman MD BLOOD BANK PRODUCT O RDERABLES Performing Organization Address City/[facility] Co de Phone Number [facility] [place] [address] * Surgical Pathology Report (09/11/2017 12:01 PM EST) Pathologist [facility] Surgical Pathology Report [id number] ? Location: BP; BP17; A The signing [...] transected bilateral Fallopian tube. Electronically signed by: ??Jayson Sepulveda MD Verified: ??09/17/2017 ?Pathologist Performed at: ??-[facility] Dept. of [place]ology, [place], [place] CLINICAL INFORMATION Specimen Submitted: A - [...] anterior endometrium with placenta ?. (R15) ??doron [facility] 09/11/2017 12:0 1 PM EST Jhonathan Robertson MD PATHOLOGY/CYTOLOGY O RDERABLES Performing Organization Address [facility] Co de Phone Number [facility] [address] * POCT Glucose (09/11/2017 8:58 AM EST) POC Glucose 91 65 - 199 mg/dL [facility] Comment: Supplemental ranges: <140 mg/dL before meals <180 mg/dL all other times of the day Blood specimen (specimen) 09/11/2017 8:58 AM EST 09/11/2017 8:58 AM EST Arturo Waterman MD POINT OF CARE TEST O RDERABLES Performing Organization Address [facility] de Phone Number [facility] [place] [address] * Ab Comment (09/11/2017 5:15 AM EST) [...] panagglutinin in solid phase testing only. Kanika Lim MD, PhD Transfusion Medicine Service 09/22/17 12:02 [facility] Comment: KANIKA LIM, Pathologist Verified:09/22/17 Blood specimen (specimen) Venous Draw / Unknown 09/11/2017 5:15 AM EST 09/11/2017 5:29 AM EST Narrative Resulting Agency Comment Spec In Lab Yoly Cueva MD BLOOD BANK LAB ORDER KURT Performing Organization Address City/[facility]/ZIP Co de Phone Number [facility] [place] [address] * Antibody identification (09/11/2017 5:15 AM EST) Ab Identified Anti-Jka [facility] Blood specimen (specimen) Venous Draw / Unknown 09/11/2017 5:15 AM EST 09/11/2017 5:29 AM EST Narrative Resulting Agency Comment Spec In Lab Yoly Cueva MD BLOOD BANK LAB ORDER KURT Performing Organization Address City/[facility] Co de Phone Number [facility] [place] [address] * ABORH Recheck Status (09/11/2017 5:15 AM EST) ABORH Type Recheck Completed [facility] Blood specimen (specimen) Venous Draw / Unknown 09/11/2017 5:15 AM EST 09/11/2017 5:29 AM EST Narrative Resulting Agency Comment Spec In Lab Yoly Cueva MD BLOOD BANK LAB ORDER KURT Performing Organization Address City/[facility] Co de Phone Number [facility] [place] [address] * Antibody screen manual (09/11/2017 5:15 AM EST) AB Screen Interp Positive [facility] Blood specimen (specimen) Venous Draw / Unknown 09/11/2017 5:15 AM EST 09/11/2017 5:29 AM EST Narrative Resulting Agency Comment Spec In Lab Arturo Waterman MD BLOOD BANK LAB ORDER KURT [facility] [place] [address] * ABORh Type Manual (09/11/2017 5:15 AM EST) Expires at [id number] on: 09/14/2017 [facility] ABORh Type B Pos [facility] Blood specimen (specimen) Venous Draw / Unknown 09/11/2017 5:15 AM EST 09/11/2017 5:29 AM EST Narrative Resulting Agency Comment Spec In Lab Arturo Waterman MD BLOOD BANK LAB ORDER KURT Performing Organization Address City/[facility]/ZIP Co de Phone Number [facility] [place] [address] * Differential, Automated (09/11/2017 5:15 AM EST) Pathologist [facility] Neutrophils % 59.9 % [facility] Neutr Abs (ANC) 4.60 1.70 - 6.10 x10(3)/[facility] Lymphocytes % 29.6 % [facility] Lymphocytes Abs 2.3 0.9 - 3.2 x10(3)/[facility] Monocytes % 8.8 % [facility] Monocyte Abs 0.7 0.3 - 0.9 x10(3)/[facility] Eosinophils % 0.9 % [facility] Eosinophils Abs 0.1 0.0 - 0.4 x10(3)/[facility] Basophils % 0.3 % [facility] Basophils Abs 0.0 0.0 - 0.1 x10(3)/[facility] Immature Gran % 0.50 % [facility] Comment: Immature granulocytes(IG's)percentage and absolute count will include metamyelocytes, myelocytes, and promyelocytes. Blood smears from CBCs yielding IG's will be scanned manually for concordance. If this scan disagrees with the automated IG or if promyelocytes are noted, a manual differential will be performed. Josie Gran Abs 0.04 0.00 - 0.04 x10(3)/[facility] Blood specimen (specimen) 09/11/2017 5:15 AM EST 09/11/2017 5:32 AM EST Narrative Resulting Agency Comment Spec In Lab Arturo Waterman MD HEMATOLOGY ORDERABLE S [facility] [place] [address] * (ABNORMAL) Hemogram (09/11/2017 5:15 AM EST) WBC 7.7 4.0 - 9.5 x10(3)/[facility] RBC 3.88(L) 4.00 - 5.21 x10(6)/[facility] Hemoglobin 11.2(L) 11.7 - 15.5 gm/dL [facility] Hematocrit 32.4(L) 35.7 - 45.8 % [facility] MCV 83.5 82.6 - 94.4 [facility] MCH 28.9 27.1 - 32.0 pg [facility] MCHC 34.6 31.7 - 35.0 gm/dL [facility] Platelets 195 145 - 357 x10(3)/[facility] RDWSD 38.8 37.0 - 46.0 [facility] RDWCV 12.9 11.5 - 14.1 % [facility] MPV 8.2 7.6 - 12.9 [facility] nRBC % Auto 0.0 % [facility] nRBC Abs Auto 0.000 0.000 - 0.000 x10(3)/[facility] Blood specimen (specimen) 09/11/2017 5:15 AM EST 09/11/2017 5:32 AM EST Narrative Resulting Agency Comment Spec In Lab Arturo Waterman MD HEMATOLOGY ORDERABLE S Performing Organization Address [facility]/ZIP Co de Phone Number [facility] [place] [address] * SCAN DOC: LAB (09/11/2017 12:00 AM EST) Narrative 09/11/2017 12:00 AM EST Ordered by an unspecified provider. Scanning Provider MEDIA MGR SCAN EXT O RDR/RSLT * POCT Glucose (09/10/2017 7:15 PM EST) POC Glucose 99 65 - 199 mg/dL [facility] Comment: Supplemental ranges: <140 mg/dL before meals <180 mg/dL all other times of the day Blood specimen (specimen) 09/10/2017 7:15 PM EST 09/10/2017 7:15 PM EST Arturo Waterman MD POINT OF CARE TEST O RDERABLES Performing Organization Address [facility] Co de Phone Number [facility] [address] * POCT Glucose (09/10/2017 3:01 PM EST) POC Glucose 138 65 - 199 mg/dL [facility] Comment: Supplemental ranges: <140 mg/dL before meals <180 mg/dL all other times of the day Blood specimen (specimen) 09/10/2017 3:01 PM EST 09/10/2017 3:01 PM EST Arturo Waterman MD POINT OF CARE TEST O RDERABLES Performing Organization Address [facility]/ZIP Co de Phone Number [facility] [address] * POCT Glucose (09/10/2017 12:58 PM EST) POC Glucose 83 65 - 199 mg/dL [facility] Comment: Supplemental ranges: <140 mg/dL before meals <180 mg/dL all other times of the day Blood specimen (specimen) 09/10/2017 12:58 PM EST 09/10/2017 12:58 PM EST Arturo Waterman MD POINT OF CARE TEST O RDERAFRANNIE Performing Organization Address [facility] Co de Phone Number [facility] [place] [address] * SCAN DOC: VETERINARY PHYSIOLOGIST (09/10/2017 12:00 AM EST) Anatomical Region Laterality Modality Other Narrative 09/10/2017 12:00 AM EST Ordered by an unspecified provider. Scanning Provider MEDIA MGR SCAN EXT O RDR/RSLT * POCT Glucose (09/09/2017 8:28 PM EST) POC Glucose 118 65 - 199 mg/dL [facility] Comment: Supplemental ranges: <140 mg/dL before meals <180 mg/dL all other times of the day Blood specimen (specimen) 09/09/2017 8:28 PM EST 09/09/2017 8:28 PM EST Arturo Waterman MD POINT OF CARE TEST O RDERAFRANNIE Performing Organization Address [facility] Co oh Phone Number [facility] [place] [address] * POCT Glucose (09/09/2017 3:32 PM EST) POC Glucose 121 65 - 199 mg/dL [facility] Comment: Supplemental ranges: <140 mg/dL before meals <180 mg/dL all other times of the day Blood specimen (specimen) 09/09/2017 3:32 PM EST 09/09/2017 3:32 PM EST Arturo Waterman MD POINT OF CARE TEST O RDERAFRANNIE Performing Organization Address [facility] Co de Phone Number [facility] [place] [address] * POCT Glucose (09/09/2017 1:46 PM EST) POC Glucose 75 65 - 199 mg/dL [facility] Comment: Supplemental ranges: <140 mg/dL before meals <180 mg/dL all other times of the day Blood specimen (specimen) 09/09/2017 1:46 PM EST 09/09/2017 1:46 PM EST Arturo Waterman MD POINT OF CARE TEST O RDERAFRANNIE [facility] [place] [address] * POCT Glucose (09/09/2017 12:28 AM EST) POC Glucose 169 65 - 199 mg/dL [facility] Comment: Supplemental ranges: <140 mg/dL before meals <180 mg/dL all other times of the day Blood specimen (specimen) 09/09/2017 12:28 AM EST 09/09/2017 12:28 AM EST Arturo Waterman MD POINT OF CARE TEST O JORGE ALBERTO [facility] [place] [address] * POCT Glucose (09/08/2017 2:38 PM EST) POC Glucose 160 65 - 199 mg/dL [facility] Comment: Supplemental ranges: <140 mg/dL before meals <180 mg/dL all other times of the day Blood specimen (specimen) 09/08/2017 2:38 PM EST 09/08/2017 2:38 PM EST Arturo Waterman MD POINT OF CARE TEST O RDERAFRANNIE [facility] [place] [address] * POCT Glucose (09/08/2017 11:46 AM EST) POC Glucose 89 65 - 199 mg/dL [facility] Comment: Supplemental ranges: <140 mg/dL before meals <180 mg/dL all other times of the day Blood specimen (specimen) 09/08/2017 11:46 AM EST 09/08/2017 11:46 AM EST Arturo Waterman MD POINT OF CARE TEST O JORGE ALBERTO Performing Organization Address City/[facility]/ZIP Co de Phone Number [facility] [address] * POCT Glucose (09/07/2017 10:41 PM EST) POC Glucose 140 65 - 199 mg/dL [facility] Comment: Supplemental ranges: <140 mg/dL before meals <180 mg/dL all other times of the day Blood specimen (specimen) 09/07/2017 10:41 PM EST 09/07/2017 10:41 PM EST Arturo Waterman MD POINT OF CARE TEST O JORGE ALBERTO Performing Organization Address [facility] Co de Phone Number [facility] [address] * POCT Glucose (09/07/2017 2:56 PM EST) POC Glucose 147 65 - 199 mg/dL [facility] Comment: Supplemental ranges: <140 mg/dL before meals <180 mg/dL all other times of the day Blood specimen (specimen) 09/07/2017 2:56 PM EST 09/07/2017 2:56 PM EST Arturo Waterman MD POINT OF CARE TEST O RDERAFRANNIE Performing Organization Address City/[facility]/ZIP Co de Phone Number [facility] [place] [address] * POCT Glucose (09/07/2017 12:55 PM EST) POC Glucose 85 65 - 199 mg/dL [facility] Comment: Supplemental ranges: <140 mg/dL before meals <180 mg/dL all other times of the day Blood specimen (specimen) 09/07/2017 12:55 PM EST 09/07/2017 12:55 PM EST Arturo Waterman MD POINT OF CARE TEST O RDERAFRANNIE Performing Organization Address City/[facility]/ZIP Co de Phone Number [facility] [address] * POCT Glucose (09/06/2017 7:37 PM EST) POC Glucose 120 65 - 199 mg/dL [facility] Comment: Supplemental ranges: <140 mg/dL before meals <180 mg/dL all other times of the day Blood specimen (specimen) 09/06/2017 7:37 PM EST 09/06/2017 7:37 PM EST Arturo Waterman MD POINT OF CARE TEST O BENJYERAFRANNIE Performing Organization Address [facility] Co de Phone Number [facility] [place] [address] * POCT Glucose (09/06/2017 2:12 PM EST) POC Glucose 134 65 - 199 mg/dL [facility] Comment: Supplemental ranges: <140 mg/dL before meals <180 mg/dL all other times of the day Blood specimen (specimen) 09/06/2017 2:12 PM EST 09/06/2017 2:12 PM EST Arturo Waterman MD POINT OF CARE TEST O RDERAFRANNIE Performing Organization Address City/[facility]/ZIP Co de Phone Number [facility] [address] * POCT Glucose (09/06/2017 12:09 PM EST) POC Glucose 85 65 - 199 mg/dL [facility] Comment: Supplemental ranges: <140 mg/dL before meals <180 mg/dL all other times of the day Blood specimen (specimen) 09/06/2017 12:09 PM EST 09/06/2017 12:09 PM EST Arturo Waterman MD POINT OF CARE TEST O JORGE ALBERTO Performing Organization Address [facility] Co de Phone Number [facility] [address] * POCT Glucose (09/05/2017 8:40 PM EST) POC Glucose 123 65 - 199 mg/dL [facility] Comment: Supplemental ranges: <140 mg/dL before meals <180 mg/dL all other times of the day Blood specimen (specimen) 09/05/2017 8:40 PM EST 09/05/2017 8:40 PM EST Arturo Waterman MD POINT OF CARE TEST O JORGE ALBERTO Performing Organization Address [facility] Co de Phone Number [facility] [place] [address] * POCT Glucose (09/05/2017 3:39 PM EST) POC Glucose 163 65 - 199 mg/dL [facility] Comment: Supplemental ranges: <140 mg/dL before meals <180 mg/dL all other times of the day Blood specimen (specimen) 09/05/2017 3:39 PM EST 09/05/2017 3:39 PM EST Arturo Waterman MD POINT OF CARE TEST O RDERAFRANNIE Performing Organization Address [facility] Co de Phone Number [facility] [address] * POCT Glucose (09/05/2017 1:45 PM EST) POC Glucose 91 65 - 199 mg/dL [facility] Comment: Supplemental ranges: <140 mg/dL before meals <180 mg/dL all other times of the day Blood specimen (specimen) 09/05/2017 1:45 PM EST 09/05/2017 1:45 PM EST Arturo Waterman MD POINT OF CARE TEST O RDERAFRANNIE Performing Organization Address [facility] de Phone Number [facility] [address] * POCT Glucose (09/04/2017 11:36 PM EST) POC Glucose 167 65 - 199 mg/dL [facility] Comment: Supplemental ranges: <140 mg/dL before meals <180 mg/dL all other times of the day Blood specimen (specimen) 09/04/2017 11:36 PM EST 09/04/2017 11:36 PM EST Arturo Waterman MD POINT OF CARE TEST O BENJYERAFRANNIE Performing Organization Address [facility] Phone Number [facility] [address] * POCT Glucose (09/04/2017 4:14 PM EST) POC Glucose 150 65 - 199 mg/dL [facility] Comment: Supplemental ranges: <140 mg/dL before meals <180 mg/dL all other times of the day Blood specimen (specimen) 09/04/2017 4:14 PM EST 09/04/2017 4:14 PM EST Arturo Waterman MD POINT OF CARE TEST O RDERAFRANNIE Performing Organization Address [facility] de Phone Number [facility] [place] [address] * POCT Glucose (09/04/2017 1:29 PM EST) POC Glucose 99 65 - 199 mg/dL [facility] Comment: Supplemental ranges: <140 mg/dL before meals <180 mg/dL all other times of the day Blood specimen (specimen) 09/04/2017 1:29 PM EST 09/04/2017 1:29 PM EST Arturo Waterman MD POINT OF CARE TEST O RDERABLES Performing Organization Address [facility] Co de Phone Number [facility] [address] * POCT Glucose (09/03/2017 4:56 PM EST) POC Glucose 138 65 - 199 mg/dL [facility] Comment: Supplemental ranges: <140 mg/dL before meals <180 mg/dL all other times of the day Blood specimen (specimen) 09/03/2017 4:56 PM EST 09/03/2017 4:56 PM EST Arturo Waterman MD POINT OF CARE TEST O RDERAFRANNIE Performing Organization Address [facility] Co de Phone Number [facility] [place] [address] * POCT Glucose (09/03/2017 2:11 PM EST) POC Glucose 92 65 - 199 mg/dL [facility] Comment: Supplemental ranges: <140 mg/dL before meals <180 mg/dL all other times of the day Blood specimen (specimen) 09/03/2017 2:11 PM EST 09/03/2017 2:11 PM EST Arturo Waterman MD POINT OF CARE TEST O RDERAFRANNIE Performing Organization Address [facility] Co de Phone Number [facility] [place] [address] * POCT Glucose (09/02/2017 9:34 PM EST) POC Glucose 118 65 - 199 mg/dL [facility] Comment: Supplemental ranges: <140 mg/dL before meals <180 mg/dL all other times of the day Blood specimen (specimen) 09/02/2017 9:34 PM EST 09/02/2017 9:34 PM EST Arturo Waterman MD POINT OF CARE TEST O RDERABLES [facility] [place] [address] * POCT Glucose (09/02/2017 3:23 PM EST) POC Glucose 163 65 - 199 mg/dL [facility] Comment: Supplemental ranges: <140 mg/dL before meals <180 mg/dL all other times of the day Blood specimen (specimen) 09/02/2017 3:23 PM EST 09/02/2017 3:23 PM EST Arturo Waterman MD POINT OF CARE TEST O RDERABLES Performing Organization Address [facility] de Phone Number [facility] [place] [address] * POCT Glucose (09/02/2017 12:33 PM EST) POC Glucose 94 65 - 199 mg/dL [facility] Comment: Supplemental ranges: <140 mg/dL before meals <180 mg/dL all other times of the day Blood specimen (specimen) 09/02/2017 12:33 PM EST 09/02/2017 12:33 PM EST Arturo Waterman MD POINT OF CARE TEST O RDERABLES Performing Organization Address [facility] de Phone Number [facility] [place] [address] * Group B Streptococcus Screen (09/02/2017 1:57 AM EST) Group B Strep Screen Neg [facility] Pooled specimen from vaginal introitus and rectal swab (specimen) 09/02/2017 1:57 AM EST 09/02/2017 8:15 AM EST Comment:Penicillin Allergy?- >No Narrative Resulting Agency Comment Spec In Lab Arturo Waterman MD MICROBIOLOGY - GENER AL ORDERABLES Performing Organization Address [facility] Co de Phone Number [facility] [place] [address] * Group B Strep Culture Screen (09/02/2017 1:57 AM EST) Group B Streptococcus Culture No Group B Streptococci isolated [facility] Pooled specimen from vaginal introitus and rectal swab (specimen) 09/02/2017 1:57 AM EST 09/02/2017 8:15 AM EST Comment:PENICILLIN ALLERGY?- >NO Narrative Resulting Agency Comment Spec In Lab Arturo Waterman MD MICROBIOLOGY - GENER AL ORDERABLES Performing Organization Address [facility] Co de Phone Number [facility] [place] [address] * POCT Glucose (09/01/2017 7:29 PM EST) POC Glucose 136 65 - 199 mg/dL [facility] Comment: Supplemental ranges: <140 mg/dL before meals <180 mg/dL all other times of the day Blood specimen (specimen) 09/01/2017 7:29 PM EST 09/01/2017 7:29 PM EST Arturo Waterman MD POINT OF CARE TEST O RDERABLES Performing Organization Address [facility] Co de Phone Number [facility] [place] [address] * US OB Follow Up Evaluation (09/01/2017 [...] 11:19 am) PATIENT INFO: ID #: ? [id number] ?: ??[birth year] (27 yrs) Name: ? PAM Lopez ?Visit Date: 09/01/2017 10:00 am ? JAYA PERFORMED BY: Performed By: ? Ruth Ann Dixon RDMS Attending: ?Derick TAY, Li Umanzor Referred By: ?ARTURO WATERMAN Location: ? [place] SERVICE(S) PROVIDED: ??UOBFOL - Efw - Growth - [place] - [id number] ? [id number] ??UOBTV - Viability - Cervical Length -Transvaginal - ?? [id number] ??[id number] INDICATIONS: ??32 weeks gestation of ?Z3A.32 ??follow [...] 09/01/2017 11:19 am) PATIENT INFO: ID #: [id number] : [birth year] (27 yrs) Name: PAM Lopez Visit Date: 09/01/2017 10:00 am JAYA PERFORMED BY: Performed By: Ruth Ann Dixon RDMS Attending: Li Sepulveda MD Referred By: ARTURO WATERMAN Location: [place] SERVICE(S) PROVIDED: UOBFOL - Efw - Growth - [place] - [id number] UOBTV - Viability - Cervical Length -Transvaginal - [id number] INDICATIONS: 32 weeks gestation of Z3A.32 follow [...] Electronically Signed Final Report 09/01/2017 11:19 am Arturo Waterman MD IMG US OB ORDERABLES * POCT Glucose (09/01/2017 8:45 AM EST) POC Glucose 92 65 - 199 mg/dL [facility] Comment: Supplemental ranges: <140 mg/dL before meals <180 mg/dL all other times of the day Blood specimen (specimen) 09/01/2017 8:45 AM EST 09/01/2017 8:45 AM EST Arturo Waterman MD POINT OF CARE TEST O RDERABLES Performing Organization Address City/[facility]/ZIP Co de Phone Number [facility] [place] [address] * POCT Glucose (08/31/2017 3:32 PM EST) POC Glucose 110 65 - 199 mg/dL [facility] Comment: Supplemental ranges: <140 mg/dL before meals <180 mg/dL all other times of the day Blood specimen (specimen) 08/31/2017 3:32 PM EST 08/31/2017 3:32 PM EST Arturo Waterman MD POINT OF CARE TEST O RDERABLES [facility] [place] [address] * POCT Glucose (08/31/2017 8:49 AM EST) POC Glucose 94 65 - 199 mg/dL [facility] Comment: Supplemental ranges: <140 mg/dL before meals <180 mg/dL all other times of the day Blood specimen (specimen) 08/31/2017 8:49 AM EST 08/31/2017 8:49 AM EST Arturo Waterman MD POINT OF CARE TEST O JORGE ALBERTO [facility] [place] [address] * POCT Glucose (08/30/2017 8:54 PM EST) POC Glucose 130 65 - 199 mg/dL [facility] Comment: Supplemental ranges: <140 mg/dL before meals <180 mg/dL all other times of the day Blood specimen (specimen) 08/30/2017 8:54 PM EST 08/30/2017 8:54 PM EST Arturo Waterman MD POINT OF CARE TEST O JORGE ALBERTO [facility] [place] [address] * POCT Glucose (08/30/2017 3:16 PM EST) POC Glucose 121 65 - 199 mg/dL [facility] Comment: Supplemental ranges: <140 mg/dL before meals <180 mg/dL all other times of the day Blood specimen (specimen) 08/30/2017 3:16 PM EST 08/30/2017 3:16 PM EST Arturo Waterman MD POINT OF CARE TEST O JORGE ALBERTO [facility] [place] [address] * POCT Glucose (08/30/2017 12:38 PM EST) POC Glucose 92 65 - 199 mg/dL [facility] Comment: Supplemental ranges: <140 mg/dL before meals <180 mg/dL all other times of the day Blood specimen (specimen) 08/30/2017 12:38 PM EST 08/30/2017 12:38 PM EST Arturo Waterman MD POINT OF CARE TEST O JORGE ALBERTO Performing Organization Address City/[facility]/ZIP Co de Phone Number [facility] [place] [address] * POCT Glucose (08/29/2017 8:47 PM EST) POC Glucose 173 65 - 199 mg/dL [facility] Comment: Supplemental ranges: <140 mg/dL before meals <180 mg/dL all other times of the day Blood specimen (specimen) 08/29/2017 8:47 PM EST 08/29/2017 8:47 PM EST Arturo Waterman MD POINT OF CARE TEST O JORGE ALBERTO Performing Organization Address [facility] Co de Phone Number [facility] [place] [address] * POCT Glucose (08/29/2017 3:31 PM EST) POC Glucose 119 65 - 199 mg/dL [facility] Comment: Supplemental ranges: <140 mg/dL before meals <180 mg/dL all other times of the day Blood specimen (specimen) 08/29/2017 3:31 PM EST 08/29/2017 3:31 PM EST Arturo Waterman MD POINT OF CARE TEST O RDERAFRANNIE Performing Organization Address City/[facility] Co de Phone Number [facility] [place] [address] * POCT Glucose (08/29/2017 1:16 PM EST) POC Glucose 98 65 - 199 mg/dL [facility] Comment: Supplemental ranges: <140 mg/dL before meals <180 mg/dL all other times of the day Blood specimen (specimen) 08/29/2017 1:16 PM EST 08/29/2017 1:16 PM EST Arturo Waterman MD POINT OF CARE TEST O RDERAFRANNIE Performing Organization Address [facility] Co de Phone Number [facility] [place] [address] * POCT Glucose (08/29/2017 9:25 AM EST) POC Glucose 108 65 - 199 mg/dL [facility] Comment: Supplemental ranges: <140 mg/dL before meals <180 mg/dL all other times of the day Blood specimen (specimen) 08/29/2017 9:25 AM EST 08/29/2017 9:25 AM EST Arturo Waterman MD POINT OF CARE TEST O RDERAFRANNIE Performing Organization Address [facility] Co de Phone Number [facility] [place] [address] * POCT Glucose (08/28/2017 8:59 PM EST) POC Glucose 122 65 - 199 mg/dL [facility] Comment: Supplemental ranges: <140 mg/dL before meals <180 mg/dL all other times of the day Blood specimen (specimen) 08/28/2017 8:59 PM EST 08/28/2017 8:59 PM EST Arturo Waterman MD POINT OF CARE TEST O RDERAFRANNIE Performing Organization Address City/[facility] Co de Phone Number [facility] [place] [address] * POCT Glucose (08/28/2017 3:45 PM EST) POC Glucose 138 65 - 199 mg/dL [facility] Comment: Supplemental ranges: <140 mg/dL before meals <180 mg/dL all other times of the day Blood specimen (specimen) 08/28/2017 3:45 PM EST 08/28/2017 3:45 PM EST Arturo Waterman MD POINT OF CARE TEST O JORGE ALBERTO Performing Organization Address [facility]/ZIP Co de Phone Number [facility] [place] [address] * POCT Glucose (08/28/2017 12:23 PM EST) POC Glucose 94 65 - 199 mg/dL [facility] Comment: Supplemental ranges: <140 mg/dL before meals <180 mg/dL all other times of the day Blood specimen (specimen) 08/28/2017 12:23 PM EST 08/28/2017 12:23 PM EST Arturo Waterman MD POINT OF CARE TEST O JORGE ALBERTO Performing Organization Address [facility] Co de Phone Number [facility] [place] [address] * POCT Glucose (08/27/2017 9:40 PM EST) POC Glucose 134 65 - 199 mg/dL [facility] Comment: Supplemental ranges: <140 mg/dL before meals <180 mg/dL all other times of the day Blood specimen (specimen) 08/27/2017 9:40 PM EST 08/27/2017 9:40 PM EST Arturo Waterman MD POINT OF CARE TEST O JORGE ALBERTO Performing Organization Address [facility] Co de Phone Number [facility] [place] [address] * POCT Glucose (08/27/2017 3:08 PM EST) POC Glucose 129 65 - 199 mg/dL [facility] Comment: Supplemental ranges: <140 mg/dL before meals <180 mg/dL all other times of the day Blood specimen (specimen) 08/27/2017 3:08 PM EST 08/27/2017 3:08 PM EST Arturo Waterman MD POINT OF CARE TEST O JORGE ALBERTO Performing Organization Address [facility] Co de Phone Number [facility] [place] [address] * POCT Glucose (08/27/2017 11:31 AM EST) POC Glucose 91 65 - 199 mg/dL [facility] Comment: Supplemental ranges: <140 mg/dL before meals <180 mg/dL all other times of the day Blood specimen (specimen) 08/27/2017 11:31 AM EST 08/27/2017 11:31 AM EST Arturo Waterman MD POINT OF CARE TEST O JORGE ALBERTO Performing Organization Address [facility] de Phone Number [facility] [place] [address] * POCT Glucose (08/26/2017 8:00 PM EST) POC Glucose 142 65 - 199 mg/dL [facility] Comment: Supplemental ranges: <140 mg/dL before meals <180 mg/dL all other times of the day Blood specimen (specimen) 08/26/2017 8:00 PM EST 08/26/2017 8:00 PM EST Arturo Waterman MD POINT OF CARE TEST O JORGE ALBERTO Performing Organization Address [facility] Co de Phone Number [facility] [place] [address] * POCT Glucose (08/26/2017 3:15 PM EST) POC Glucose 105 65 - 199 mg/dL [facility] Comment: Supplemental ranges: <140 mg/dL before meals <180 mg/dL all other times of the day Blood specimen (specimen) 08/26/2017 3:15 PM EST 08/26/2017 3:15 PM EST Arturo Waterman MD POINT OF CARE TEST O RDERABLES [facility] [place] [address] * POCT Glucose (08/26/2017 12:29 PM EST) POC Glucose 88 65 - 199 mg/dL [facility] Comment: Supplemental ranges: <140 mg/dL before meals <180 mg/dL all other times of the day Blood specimen (specimen) 08/26/2017 12:29 PM EST 08/26/2017 12:29 PM EST Arturo Waterman MD POINT OF CARE TEST O RDERAFRANNIE Performing Organization Address [facility] Co de Phone Number [facility] [place] [address] * POCT urine dipstick (08/26/2017) POC Sp [place] 1.005 1.002 - 1.030 POC pH, UA [...] UA neg Negative - Negative annabel/uL 08/26/2017 Arturo Waterman MD POINT OF CARE TEST O RDERAFRANNIE * POCT Glucose (08/25/2017 8:45 PM EST) POC Glucose 147 65 - 199 mg/dL [facility] Comment: Supplemental ranges: <140 mg/dL before meals <180 mg/dL all other times of the day Blood specimen (specimen) 08/25/2017 8:45 PM EST 08/25/2017 8:45 PM EST Arturo Waterman MD POINT OF CARE TEST O RDERABLES Performing Organization Address [facility]/ZIP Co de Phone Number [facility] [place] [address] * POCT Glucose (08/25/2017 2:36 PM EST) POC Glucose 133 65 - 199 mg/dL [facility] Comment: Supplemental ranges: <140 mg/dL before meals <180 mg/dL all other times of the day Blood specimen (specimen) 08/25/2017 2:36 PM EST 08/25/2017 2:36 PM EST Arturo Waterman MD POINT OF CARE TEST O RDERABLES Performing Organization Address [facility] Co de Phone Number [facility] [place] [address] * POCT Glucose (08/25/2017 12:38 PM EST) POC Glucose 91 65 - 199 mg/dL [facility] Comment: Supplemental ranges: <140 mg/dL before meals <180 mg/dL all other times of the day Blood specimen (specimen) 08/25/2017 12:38 PM EST 08/25/2017 12:38 PM EST Arturo Waterman MD POINT OF CARE TEST O RDERABLES Performing Organization Address [facility] Co de Phone Number [facility] [place] [address] * POCT Glucose (08/24/2017 8:25 PM EST) POC Glucose 93 65 - 199 mg/dL [facility] Comment: Supplemental ranges: <140 mg/dL before meals <180 mg/dL all other times of the day Blood specimen (specimen) 08/24/2017 8:25 PM EST 08/24/2017 8:25 PM EST Arturo Waterman MD POINT OF CARE TEST O RDERAFRANNIE [facility] [place] [address] * POCT Glucose (08/24/2017 3:13 PM EST) POC Glucose 144 65 - 199 mg/dL [facility] Comment: Supplemental ranges: <140 mg/dL before meals <180 mg/dL all other times of the day Blood specimen (specimen) 08/24/2017 3:13 PM EST 08/24/2017 3:13 PM EST Arturo Waterman MD POINT OF CARE TEST O RDERABLES Performing Organization Address [facility] Co de Phone Number [facility] [place] [address] * POCT Glucose (08/24/2017 9:58 AM EST) POC Glucose 109 65 - 199 mg/dL [facility] Comment: Supplemental ranges: <140 mg/dL before meals <180 mg/dL all other times of the day Blood specimen (specimen) 08/24/2017 9:58 AM EST 08/24/2017 9:58 AM EST Arturo Waterman MD POINT OF CARE TEST O RDERABLES Performing Organization Address [facility] Co de Phone Number [facility] [place] [address] * POCT Glucose (08/23/2017 11:41 PM EST) POC Glucose 102 65 - 199 mg/dL [facility] Comment: Supplemental ranges: <140 mg/dL before meals <180 mg/dL all other times of the day Blood specimen (specimen) 08/23/2017 11:41 PM EST 08/23/2017 11:41 PM EST Arturo Waterman MD POINT OF CARE TEST O RDERABLES Performing Organization Address [facility] Co de Phone Number [facility] [place] [address] * POCT Glucose (08/23/2017 3:33 PM EST) POC Glucose 128 65 - 199 mg/dL [facility] Comment: Supplemental ranges: <140 mg/dL before meals <180 mg/dL all other times of the day Blood specimen (specimen) 08/23/2017 3:33 PM EST 08/23/2017 3:33 PM EST Arturo Waterman MD POINT OF CARE TEST O RDERABLES [facility] [place] [address] * POCT Glucose (08/23/2017 11:37 AM EST) POC Glucose 124 65 - 199 mg/dL [facility] Comment: Supplemental ranges: <140 mg/dL before meals <180 mg/dL all other times of the day Blood specimen (specimen) 08/23/2017 11:37 AM EST 08/23/2017 11:37 AM EST Arturo Waterman MD POINT OF CARE TEST O RDERABLES Performing Organization Address City/[facility]/ZIP Co de Phone Number [facility] [place] [address] * POCT Glucose (08/23/2017 9:44 AM EST) POC Glucose 107 65 - 199 mg/dL [facility] Comment: Supplemental ranges: <140 mg/dL before meals <180 mg/dL all other times of the day Blood specimen (specimen) 08/23/2017 9:44 AM EST 08/23/2017 9:44 AM EST Arturo Waterman MD POINT OF CARE TEST O RDERABLES Performing Organization Address City/[facility]/ZIP Co de Phone Number [facility] [place] [address] * POCT Glucose (08/22/2017 8:18 PM EST) POC Glucose 111 65 - 199 mg/dL [facility] Comment: Supplemental ranges: <140 mg/dL before meals <180 mg/dL all other times of the day Blood specimen (specimen) 08/22/2017 8:18 PM EST 08/22/2017 8:18 PM EST Arturo Waterman MD POINT OF CARE TEST O RDERABLES [facility] [place] [address] * POCT Glucose (08/22/2017 2:28 PM EST) POC Glucose 158 65 - 199 mg/dL [facility] Comment: Supplemental ranges: <140 mg/dL before meals <180 mg/dL all other times of the day Blood specimen (specimen) 08/22/2017 2:28 PM EST 08/22/2017 2:28 PM EST Arturo Waterman MD POINT OF CARE TEST O BENJYERAFRANNIE Performing Organization Address City/[facility]/ZIP Co de Phone Number [facility] [place] [address] * POCT Glucose (08/22/2017 12:39 PM EST) POC Glucose 83 65 - 199 mg/dL [facility] Comment: Supplemental ranges: <140 mg/dL before meals <180 mg/dL all other times of the day Blood specimen (specimen) 08/22/2017 12:39 PM EST 08/22/2017 12:39 PM EST Arturo Waterman MD POINT OF CARE TEST O RDERAFRANNIE [facility] [place] [address] * POCT Glucose (08/21/2017 7:53 PM EST) POC Glucose 105 65 - 199 mg/dL [facility] Comment: Supplemental ranges: <140 mg/dL before meals <180 mg/dL all other times of the day Blood specimen (specimen) 08/21/2017 7:53 PM EST 08/21/2017 7:53 PM EST Arturo Waterman MD POINT OF CARE TEST O RDERAFRANNIE Performing Organization Address [facility] Co de Phone Number [facility] [place] [address] * POCT Glucose (08/21/2017 2:42 PM EST) POC Glucose 130 65 - 199 mg/dL [facility] Comment: Supplemental ranges: <140 mg/dL before meals <180 mg/dL all other times of the day Blood specimen (specimen) 08/21/2017 2:42 PM EST 08/21/2017 2:42 PM EST Arturo Waterman MD POINT OF CARE TEST O JORGE ALBERTO Performing Organization Address [facility] Co de Phone Number [facility] [place] [address] * POCT Glucose (08/21/2017 9:07 AM EST) POC Glucose 73 65 - 199 mg/dL [facility] Comment: Supplemental ranges: <140 mg/dL before meals <180 mg/dL all other times of the day Blood specimen (specimen) 08/21/2017 9:07 AM EST 08/21/2017 9:07 AM EST Arturo Waterman MD POINT OF CARE TEST O RDERAFRANNIE Performing Organization Address [facility] Co de Phone Number [facility] [place] [address] * POCT Glucose (08/20/2017 7:30 PM EST) POC Glucose 162 65 - 199 mg/dL [facility] Comment: Supplemental ranges: <140 mg/dL before meals <180 mg/dL all other times of the day Blood specimen (specimen) 08/20/2017 7:30 PM EST 08/20/2017 7:30 PM EST Arturo Waterman MD POINT OF CARE TEST O RDERAFRANNIE Performing Organization Address City/[facility] Co de Phone Number [facility] [place] [address] * POCT Glucose (08/20/2017 1:54 PM EST) POC Glucose 187 65 - 199 mg/dL [facility] Comment: Supplemental ranges: <140 mg/dL before meals <180 mg/dL all other times of the day Blood specimen (specimen) 08/20/2017 1:54 PM EST 08/20/2017 1:54 PM EST Arturo Waterman MD POINT OF CARE TEST O BENJYERAFRANNIE Performing Organization Address [facility] Co de Phone Number [facility] [place] [address] * POCT Glucose (08/20/2017 9:04 AM EST) POC Glucose 158 65 - 199 mg/dL [facility] Comment: Supplemental ranges: <140 mg/dL before meals <180 mg/dL all other times of the day Blood specimen (specimen) 08/20/2017 9:04 AM EST 08/20/2017 9:04 AM EST Arturo Waterman MD POINT OF CARE TEST O RDERAFRANNIE Performing Organization Address City/[facility] Co de Phone Number [facility] [place] [address] * POCT Glucose (08/19/2017 8:24 PM EST) POC Glucose 141 65 - 199 mg/dL [facility] Comment: Supplemental ranges: <140 mg/dL before meals <180 mg/dL all other times of the day Blood specimen (specimen) 08/19/2017 8:24 PM EST 08/19/2017 8:24 PM EST Arturo Waterman MD POINT OF CARE TEST O JORGE ALBERTO Performing Organization Address [facility] Co de Phone Number [facility] [place] [address] * POCT Glucose (08/19/2017 4:01 PM EST) POC Glucose 157 65 - 199 mg/dL [facility] Comment: Supplemental ranges: <140 mg/dL before meals <180 mg/dL all other times of the day Blood specimen (specimen) 08/19/2017 4:01 PM EST 08/19/2017 4:01 PM EST Arturo Waterman MD POINT OF CARE TEST O JORGE ALBERTO Performing Organization Address [facility] Co de Phone Number [facility] [place] [address] * POCT Glucose (08/19/2017 9:55 AM EST) POC Glucose 127 65 - 199 mg/dL [facility] Comment: Supplemental ranges: <140 mg/dL before meals <180 mg/dL all other times of the day Blood specimen (specimen) 08/19/2017 9:55 AM EST 08/19/2017 9:55 AM EST Arturo Waterman MD POINT OF CARE TEST O JORGE ALBERTO Performing Organization Address [facility] Co de Phone Number [facility] [place] [address] * POCT Glucose (08/18/2017 11:52 PM EST) POC Glucose 179 65 - 199 mg/dL [facility] Comment: Supplemental ranges: <140 mg/dL before meals <180 mg/dL all other times of the day Blood specimen (specimen) 08/18/2017 11:52 PM EST 08/18/2017 11:52 PM EST Arturo Waterman MD POINT OF CARE TEST O JORGE ALBERTO Performing Organization Address [facility] Co de Phone Number [facility] [place] [address] * POCT Glucose (08/18/2017 7:38 PM EST) POC Glucose 153 65 - 199 mg/dL [facility] Comment: Supplemental ranges: <140 mg/dL before meals <180 mg/dL all other times of the day Blood specimen (specimen) 08/18/2017 7:38 PM EST 08/18/2017 7:38 PM EST Arturo Waterman MD POINT OF CARE TEST O JORGE ALBERTO Performing Organization Address [facility] Phone Number [facility] [place] [address] * POCT Glucose (08/18/2017 3:42 PM EST) POC Glucose 93 65 - 199 mg/dL [facility] Comment: Supplemental ranges: <140 mg/dL before meals <180 mg/dL all other times of the day Blood specimen (specimen) 08/18/2017 3:42 PM EST 08/18/2017 3:42 PM EST Arturo Waterman MD POINT OF CARE TEST O JORGE ALBERTO Performing Organization Address [facility] Co de Phone Number [facility] [place] [address] * POCT Glucose (08/18/2017 8:43 AM EST) POC Glucose 72 65 - 199 mg/dL [facility] Comment: Supplemental ranges: <140 mg/dL before meals <180 mg/dL all other times of the day Blood specimen (specimen) 08/18/2017 8:43 AM EST 08/18/2017 8:43 AM EST Arturo Waterman MD POINT OF CARE TEST O RDERABLES Performing Organization Address [facility]/ZIP Co de Phone Number [facility] [place] [address] * POCT Glucose (08/17/2017 8:22 PM EST) POC Glucose 104 65 - 199 mg/dL [facility] Comment: Supplemental ranges: <140 mg/dL before meals <180 mg/dL all other times of the day Blood specimen (specimen) 08/17/2017 8:22 PM EST 08/17/2017 8:22 PM EST Arturo Waterman MD POINT OF CARE TEST O RDERABLES Performing Organization Address [facility] Co de Phone Number [facility] [place] [address] * POCT Glucose (08/17/2017 1:37 PM EST) POC Glucose 167 65 - 199 mg/dL [facility] Comment: Supplemental ranges: <140 mg/dL before meals <180 mg/dL all other times of the day Blood specimen (specimen) 08/17/2017 1:37 PM EST 08/17/2017 1:37 PM EST Arturo Waterman MD POINT OF CARE TEST O RDERABLES Performing Organization Address [facility]/ZIP Co de Phone Number [facility] [place] [address] * POCT Glucose (08/17/2017 12:04 PM EST) POC Glucose 81 65 - 199 mg/dL [facility] Comment: Supplemental ranges: <140 mg/dL before meals <180 mg/dL all other times of the day Blood specimen (specimen) 08/17/2017 12:04 PM EST 08/17/2017 12:04 PM EST Arturo Waterman MD POINT OF CARE TEST O RDERABLES [facility] [place] [address] * POCT Glucose (08/16/2017 6:52 PM EST) POC Glucose 128 65 - 199 mg/dL [facility] Comment: Supplemental ranges: <140 mg/dL before meals <180 mg/dL all other times of the day Blood specimen (specimen) 08/16/2017 6:52 PM EST 08/16/2017 6:52 PM EST Arturo Waterman MD POINT OF CARE TEST O RDERABLES Performing Organization Address [facility] Co de Phone Number [facility] [place] [address] * POCT Glucose (08/16/2017 12:08 PM EST) POC Glucose 98 65 - 199 mg/dL [facility] Comment: Supplemental ranges: <140 mg/dL before meals <180 mg/dL all other times of the day Blood specimen (specimen) 08/16/2017 12:08 PM EST 08/16/2017 12:08 PM EST Arturo Waterman MD POINT OF CARE TEST O RDERABLES Performing Organization Address [facility] Co de Phone Number [facility] [place] [address] * POCT Glucose (08/16/2017 10:15 AM EST) POC Glucose 90 65 - 199 mg/dL [facility] Comment: Supplemental ranges: <140 mg/dL before meals <180 mg/dL all other times of the day Blood specimen (specimen) 08/16/2017 10:15 AM EST 08/16/2017 10:15 AM EST Arturo Waterman MD POINT OF CARE TEST O RDERABLES Performing Organization Address [facility] Co de Phone Number [facility] [place] [address] * POCT Glucose (08/15/2017 8:24 PM EST) POC Glucose 121 65 - 199 mg/dL [facility] Comment: Supplemental ranges: <140 mg/dL before meals <180 mg/dL all other times of the day Blood specimen (specimen) 08/15/2017 8:24 PM EST 08/15/2017 8:24 PM EST Arturo Waterman MD POINT OF CARE TEST O RDERABLES [facility] [place] [address] * POCT Glucose (08/15/2017 3:44 PM EST) POC Glucose 129 65 - 199 mg/dL [facility] Comment: Supplemental ranges: <140 mg/dL before meals <180 mg/dL all other times of the day Blood specimen (specimen) 08/15/2017 3:44 PM EST 08/15/2017 3:44 PM EST Arturo Waterman MD POINT OF CARE TEST O RDERABLES Performing Organization Address City/[facility]/ZIP Co de Phone Number [facility] [place] [address] * POCT Glucose (08/15/2017 12:19 PM EST) POC Glucose 91 65 - 199 mg/dL [facility] Comment: Supplemental ranges: <140 mg/dL before meals <180 mg/dL all other times of the day Blood specimen (specimen) 08/15/2017 12:19 PM EST 08/15/2017 12:19 PM EST Arturo Waterman MD POINT OF CARE TEST O RDERABLES [facility] [place] [address] * POCT Glucose (08/14/2017 8:37 PM EST) POC Glucose 133 65 - 199 mg/dL [facility] Comment: Supplemental ranges: <140 mg/dL before meals <180 mg/dL all other times of the day Blood specimen (specimen) 08/14/2017 8:37 PM EST 08/14/2017 8:37 PM EST Arturo Waterman MD POINT OF CARE TEST O RDERAFRANNIE [facility] [place] [address] * POCT Glucose (08/14/2017 11:47 AM EST) POC Glucose 76 65 - 199 mg/dL [facility] Comment: Supplemental ranges: <140 mg/dL before meals <180 mg/dL all other times of the day Blood specimen (specimen) 08/14/2017 11:47 AM EST 08/14/2017 11:47 AM EST Arturo Waterman MD POINT OF CARE TEST O BENJYERAFRANNIE Performing Organization Address City/[facility]/ZIP Co de Phone Number [facility] [place] [address] * POCT Glucose (08/13/2017 8:05 PM EST) POC Glucose 121 65 - 199 mg/dL [facility] Comment: Supplemental ranges: <140 mg/dL before meals <180 mg/dL all other times of the day Blood specimen (specimen) 08/13/2017 8:05 PM EST 08/13/2017 8:05 PM EST Arturo Waterman MD POINT OF CARE TEST O RDERAFRANNIE [facility] [place] [address] * POCT Glucose (08/13/2017 2:37 PM EST) POC Glucose 144 65 - 199 mg/dL [facility] Comment: Supplemental ranges: <140 mg/dL before meals <180 mg/dL all other times of the day Blood specimen (specimen) 08/13/2017 2:37 PM EST 08/13/2017 2:37 PM EST Arturo Waterman MD POINT OF CARE TEST O RDERAFRANNIE Performing Organization Address [facility] Co de Phone Number [facility] [address] * POCT Glucose (08/13/2017 12:52 PM EST) POC Glucose 76 65 - 199 mg/dL [facility] Comment: Supplemental ranges: <140 mg/dL before meals <180 mg/dL all other times of the day Blood specimen (specimen) 08/13/2017 12:52 PM EST 08/13/2017 12:52 PM EST Arturo Waterman MD POINT OF CARE TEST O JORGE ALBERTO Performing Organization Address [facility] Co de Phone Number [facility] [place] [address] * POCT Glucose (08/12/2017 8:33 PM EST) POC Glucose 129 65 - 199 mg/dL [facility] Comment: Supplemental ranges: <140 mg/dL before meals <180 mg/dL all other times of the day Blood specimen (specimen) 08/12/2017 8:33 PM EST 08/12/2017 8:33 PM EST Arturo Waterman MD POINT OF CARE TEST O RDERAFRANNIE Performing Organization Address [facility] Co de Phone Number [facility] [place] [address] * POCT Glucose (08/12/2017 2:03 PM EST) POC Glucose 119 65 - 199 mg/dL [facility] Comment: Supplemental ranges: <140 mg/dL before meals <180 mg/dL all other times of the day Blood specimen (specimen) 08/12/2017 2:03 PM EST 08/12/2017 2:03 PM EST Arturo Waterman MD POINT OF CARE TEST O RDERAFRANNIE Performing Organization Address City/[facility] Co de Phone Number [facility] [place] [address] * POCT Glucose (08/12/2017 11:43 AM EST) POC Glucose 98 65 - 199 mg/dL [facility] Comment: Supplemental ranges: <140 mg/dL before meals <180 mg/dL all other times of the day Blood specimen (specimen) 08/12/2017 11:43 AM EST 08/12/2017 11:43 AM EST Arturo Waterman MD POINT OF CARE TEST O BENJYERAFRANNIE Performing Organization Address [facility] Co de Phone Number [facility] [place] [address] * POCT Glucose (08/11/2017 7:58 PM EST) POC Glucose 120 65 - 199 mg/dL [facility] Comment: Supplemental ranges: <140 mg/dL before meals <180 mg/dL all other times of the day Blood specimen (specimen) 08/11/2017 7:58 PM EST 08/11/2017 7:58 PM EST Arturo Waterman MD POINT OF CARE TEST O RDERAFRANNIE Performing Organization Address City/[facility] Co de Phone Number [facility] [place] [address] * POCT Glucose (08/11/2017 11:20 AM EST) POC Glucose 95 65 - 199 mg/dL [facility] Comment: Supplemental ranges: <140 mg/dL before meals <180 mg/dL all other times of the day Blood specimen (specimen) 08/11/2017 11:20 AM EST 08/11/2017 11:20 AM EST Arturo Waterman MD POINT OF CARE TEST O JORGE ALBERTO Performing Organization Address City/[facility] Co de Phone Number [facility] [place] [address] * POCT Glucose (08/11/2017 10:08 AM EST) POC Glucose 102 65 - 199 mg/dL [facility] Comment: Supplemental ranges: <140 mg/dL before meals <180 mg/dL all other times of the day Blood specimen (specimen) 08/11/2017 10:08 AM EST 08/11/2017 10:08 AM EST Arturo Waterman MD POINT OF CARE TEST Yee AZUL Performing Organization Address City/[facility] Co de Phone Number [facility] [place] [address] * US OB Follow Up Evaluation (08/11/2017 [...] 10:10 am) PATIENT INFO: ID #: ? [id number] ?: ??[birth year] (27 yrs) Name: ? PAM Lopez ?Visit Date: 08/11/2017 09:26 am ? JAYA PERFORMED BY: Performed By: ? Dhara Hicks RDMS Attending: ?Sandoval TAY, Emanuel Garcia Referred By: ?EMANUEL BARRETT Location: ? [place] SERVICE(S) PROVIDED: ??UOBFOL - Efw - Growth - [place] - [id number] ? [id number] ??UOBTV - Viability - Cervical Length -Transvaginal - ?? [id number] ??[id number] INDICATIONS: ??29 weeks gestation of ?Z3A.29 ??26 [...] 08/11/2017 10:10 am) PATIENT INFO: ID #: [id number] : [birth year] (27 yrs) Name: PAM Lopez Visit Date: 08/11/2017 09:26 am [place] PERFORMED BY: Performed By: Dhara Hicks RDMS Attending: Emanuel Barrett MD Referred By: EMANUEL BARRETT Location: [place] SERVICE(S) PROVIDED: UOBFOL - Efw - Growth - [place] - [id number] UOBTV - Viability - Cervical Length -Transvaginal - [id number] INDICATIONS: 29 weeks gestation of Z3A.29 26 [...] POC Glucose 141 65 - 199 mg/dL [facility] Comment: Supplemental ranges: <140 mg/dL before meals <180 mg/dL all other times of the day Blood specimen (specimen) 08/10/2017 6:41 PM EST 08/10/2017 6:41 PM EST Arturo Waterman MD POINT OF CARE TEST O RDANG Performing Organization Address [facility]/ZIP Co de Phone Number [facility] [place] [address] * POCT Glucose (08/10/2017 1:11 PM EST) POC Glucose 150 65 - 199 mg/dL [facility] Comment: Supplemental ranges: <140 mg/dL before meals <180 mg/dL all other times of the day Blood specimen (specimen) 08/10/2017 1:11 PM EST 08/10/2017 1:11 PM EST Arturo Waterman MD POINT OF CARE TEST O JORGE ALBERTO [facility] [place] [address] * POCT Glucose (08/10/2017 11:40 AM EST) POC Glucose 95 65 - 199 mg/dL [facility] Comment: Supplemental ranges: <140 mg/dL before meals <180 mg/dL all other times of the day Blood specimen (specimen) 08/10/2017 11:40 AM EST 08/10/2017 11:40 AM EST Arturo Waterman MD POINT OF CARE TEST O RDANG Performing Organization Address [facility] de Phone Number [facility] [place] [address] * POCT Glucose (08/09/2017 6:58 PM EST) POC Glucose 139 65 - 199 mg/dL [facility] Comment: Supplemental ranges: <140 mg/dL before meals <180 mg/dL all other times of the day Blood specimen (specimen) 08/09/2017 6:58 PM EST 08/09/2017 6:58 PM EST Arturo Waterman MD POINT OF CARE TEST O JORGE ALBERTO Performing Organization Address [facility] Phone Number [facility] [place] [address] * POCT Glucose (08/09/2017 10:58 AM EST) POC Glucose 97 65 - 199 mg/dL [facility] Comment: Supplemental ranges: <140 mg/dL before meals <180 mg/dL all other times of the day Blood specimen (specimen) 08/09/2017 10:58 AM EST 08/09/2017 10:58 AM EST Arturo Waterman MD POINT OF CARE TEST O RDERAFRANNIE Performing Organization Address [facility] de Phone Number [facility] [place] [address] * POCT Glucose (08/08/2017 9:51 PM EST) POC Glucose 140 65 - 199 mg/dL [facility] Comment: Supplemental ranges: <140 mg/dL before meals <180 mg/dL all other times of the day Blood specimen (specimen) 08/08/2017 9:51 PM EST 08/08/2017 9:51 PM EST Arturo Waterman MD POINT OF CARE TEST O RDERABLES Performing Organization Address [facility]/ZIP Co de Phone Number [facility] [place] [address] * POCT Glucose (08/08/2017 2:09 PM EST) POC Glucose 138 65 - 199 mg/dL [facility] Comment: Supplemental ranges: <140 mg/dL before meals <180 mg/dL all other times of the day Blood specimen (specimen) 08/08/2017 2:09 PM EST 08/08/2017 2:09 PM EST Arturo Waterman MD POINT OF CARE TEST O RDERABLES Performing Organization Address [facility] Co de Phone Number [facility] [place] [address] * POCT Glucose (08/08/2017 11:56 AM EST) POC Glucose 85 65 - 199 mg/dL [facility] Comment: Supplemental ranges: <140 mg/dL before meals <180 mg/dL all other times of the day Blood specimen (specimen) 08/08/2017 11:56 AM EST 08/08/2017 11:56 AM EST Arturo Waterman MD POINT OF CARE TEST O RDERABLES Performing Organization Address [facility] Co de Phone Number [facility] [place] [address] * POCT Glucose (08/07/2017 9:41 PM EST) POC Glucose 113 65 - 199 mg/dL [facility] Comment: Supplemental ranges: <140 mg/dL before meals <180 mg/dL all other times of the day Blood specimen (specimen) 08/07/2017 9:41 PM EST 08/07/2017 9:41 PM EST Arturo Waterman MD POINT OF CARE TEST O RDERABLES [facility] [place] [address] * POCT Glucose (08/07/2017 3:04 PM EST) POC Glucose 152 65 - 199 mg/dL [facility] Comment: Supplemental ranges: <140 mg/dL before meals <180 mg/dL all other times of the day Blood specimen (specimen) 08/07/2017 3:04 PM EST 08/07/2017 3:04 PM EST Arturo Waterman MD POINT OF CARE TEST O RDERABLES Performing Organization Address [facility] Co de Phone Number [facility] [address] * POCT Glucose (08/07/2017 10:04 AM EST) POC Glucose 87 65 - 199 mg/dL [facility] Comment: Supplemental ranges: <140 mg/dL before meals <180 mg/dL all other times of the day Blood specimen (specimen) 08/07/2017 10:04 AM EST 08/07/2017 10:04 AM EST Arturo Waterman MD POINT OF CARE TEST O RDERABLES Performing Organization Address [facility] Co de Phone Number [facility] [address] * POCT Glucose (08/06/2017 8:30 PM EST) POC Glucose 118 65 - 199 mg/dL [facility] Comment: Supplemental ranges: <140 mg/dL before meals <180 mg/dL all other times of the day Blood specimen (specimen) 08/06/2017 8:30 PM EST 08/06/2017 8:30 PM EST Arturo Waterman MD POINT OF CARE TEST O RDERABLES Performing Organization Address City/[facility]/ZIP Co de Phone Number [facility] [place] [address] * POCT Glucose (08/06/2017 3:20 PM EST) POC Glucose 146 65 - 199 mg/dL [facility] Comment: Supplemental ranges: <140 mg/dL before meals <180 mg/dL all other times of the day Blood specimen (specimen) 08/06/2017 3:20 PM EST 08/06/2017 3:20 PM EST Arturo Waterman MD POINT OF CARE TEST O RDERABLES [facility] [place] [address] * POCT Glucose (08/06/2017 11:50 AM EST) POC Glucose 136 65 - 199 mg/dL [facility] Comment: Supplemental ranges: <140 mg/dL before meals <180 mg/dL all other times of the day Blood specimen (specimen) 08/06/2017 11:50 AM EST 08/06/2017 11:50 AM EST Arturo Waterman MD POINT OF CARE TEST O RDERABLES Performing Organization Address City/[facility]/ZIP Co de Phone Number [facility] [place] [address] * POCT Glucose (08/06/2017 9:55 AM EST) POC Glucose 89 65 - 199 mg/dL [facility] Comment: Supplemental ranges: <140 mg/dL before meals <180 mg/dL all other times of the day Blood specimen (specimen) 08/06/2017 9:55 AM EST 08/06/2017 9:55 AM EST Arturo Waterman MD POINT OF CARE TEST O RDERABLES [facility] [place] [address] * POCT Glucose (08/05/2017 7:59 PM EST) POC Glucose 102 65 - 199 mg/dL [facility] Comment: Supplemental ranges: <140 mg/dL before meals <180 mg/dL all other times of the day Blood specimen (specimen) 08/05/2017 7:59 PM EST 08/05/2017 7:59 PM EST Arturo Waterman MD POINT OF CARE TEST O RDERAFRANNIE [facility] [place] [address] * POCT Glucose (08/05/2017 11:33 AM EST) POC Glucose 140 65 - 199 mg/dL [facility] Comment: Supplemental ranges: <140 mg/dL before meals <180 mg/dL all other times of the day Blood specimen (specimen) 08/05/2017 11:33 AM EST 08/05/2017 11:33 AM EST Arturo Waterman MD POINT OF CARE TEST O JORGE ALBERTO Performing Organization Address City/[facility]/ZIP Co de Phone Number [facility] [place] [address] * POCT Glucose (08/05/2017 7:36 AM EST) POC Glucose 83 65 - 199 mg/dL [facility] Comment: Supplemental ranges: <140 mg/dL before meals <180 mg/dL all other times of the day Blood specimen (specimen) 08/05/2017 7:36 AM EST 08/05/2017 7:36 AM EST Arturo Waterman MD POINT OF CARE TEST O JORGE ALBERTO [facility] [place] [address] * POCT Glucose (08/04/2017 8:27 PM EST) POC Glucose 116 65 - 199 mg/dL [facility] Comment: Supplemental ranges: <140 mg/dL before meals <180 mg/dL all other times of the day Blood specimen (specimen) 08/04/2017 8:27 PM EST 08/04/2017 8:27 PM EST Arturo Waterman MD POINT OF CARE TEST O RDERAFRANNIE Performing Organization Address City/[facility]/ZIP Co de Phone Number [facility] [place] [address] * POCT Glucose (08/04/2017 7:25 PM EST) POC Glucose 169 65 - 199 mg/dL [facility] Comment: Supplemental ranges: <140 mg/dL before meals <180 mg/dL all other times of the day Blood specimen (specimen) 08/04/2017 7:25 PM EST 08/04/2017 7:25 PM EST Arturo Waterman MD POINT OF CARE TEST O JORGE ALBERTO Performing Organization Address [facility] Co de Phone Number [facility] [place] [address] * POCT Glucose (08/04/2017 3:04 PM EST) POC Glucose 122 65 - 199 mg/dL [facility] Comment: Supplemental ranges: <140 mg/dL before meals <180 mg/dL all other times of the day Blood specimen (specimen) 08/04/2017 3:04 PM EST 08/04/2017 3:04 PM EST Arturo Waterman MD POINT OF CARE TEST O RDERAFRANNIE Performing Organization Address City/[facility]/ZIP Co de Phone Number [facility] [place] [address] * POCT Glucose (08/04/2017 10:59 AM EST) POC Glucose 106 65 - 199 mg/dL [facility] Comment: Supplemental ranges: <140 mg/dL before meals <180 mg/dL all other times of the day Blood specimen (specimen) 08/04/2017 10:59 AM EST 08/04/2017 10:59 AM EST Arturo Waterman MD POINT OF CARE TEST O RDERAFRANNIE Performing Organization Address City/[facility] Co de Phone Number [facility] [place] [address] * POCT Glucose (08/04/2017 9:06 AM EST) POC Glucose 85 65 - 199 mg/dL [facility] Comment: Supplemental ranges: <140 mg/dL before meals <180 mg/dL all other times of the day Blood specimen (specimen) 08/04/2017 9:06 AM EST 08/04/2017 9:06 AM EST Arturo Waterman MD POINT OF CARE TEST O BENJYERAFRANNIE Performing Organization Address [facility] Co de Phone Number [facility] [place] [address] * POCT Glucose (08/03/2017 7:24 PM EST) POC Glucose 118 65 - 199 mg/dL [facility] Comment: Supplemental ranges: <140 mg/dL before meals <180 mg/dL all other times of the day Blood specimen (specimen) 08/03/2017 7:24 PM EST 08/03/2017 7:24 PM EST Arturo Waterman MD POINT OF CARE TEST O RDERAFRANNIE Performing Organization Address City/[facility] Co de Phone Number [facility] [place] [address] * POCT Glucose (08/03/2017 11:22 AM EST) POC Glucose 106 65 - 199 mg/dL [facility] Comment: Supplemental ranges: <140 mg/dL before meals <180 mg/dL all other times of the day Blood specimen (specimen) 08/03/2017 11:22 AM EST 08/03/2017 11:22 AM EST Li Sepulveda MD POINT OF CARE TEST O JORGE ALBERTO Performing Organization Address [facility] Co de Phone Number [facility] [place] [address] * POCT Glucose (08/03/2017 8:52 AM EST) POC Glucose 86 65 - 199 mg/dL [facility] Comment: Supplemental ranges: <140 mg/dL before meals <180 mg/dL all other times of the day Blood specimen (specimen) 08/03/2017 8:52 AM EST 08/03/2017 8:52 AM EST Li Sepulveda MD POINT OF CARE TEST Yee AZUL Performing Organization Address [facility] de Phone Number [facility] [place] [address] * POCT Glucose (08/02/2017 6:59 PM EST) POC Glucose 141 65 - 199 mg/dL [facility] Comment: Supplemental ranges: <140 mg/dL before meals <180 mg/dL all other times of the day Blood specimen (specimen) 08/02/2017 6:59 PM EST 08/02/2017 6:59 PM EST Li Sepulveda MD POINT OF CARE TEST O JORGE ALBERTO Performing Organization Address [facility] Co de Phone Number [facility] [place] [address] * POCT Glucose (08/02/2017 3:42 PM EST) POC Glucose 138 65 - 199 mg/dL [facility] Comment: Supplemental ranges: <140 mg/dL before meals <180 mg/dL all other times of the day Blood specimen (specimen) 08/02/2017 3:42 PM EST 08/02/2017 3:42 PM EST Li Sepulveda MD POINT OF CARE TEST O JORGE ALBERTO Performing Organization Address [facility] de Phone Number [facility] [place] [address] * POCT Glucose (08/02/2017 11:58 AM EST) POC Glucose 128 65 - 199 mg/dL [facility] Comment: Supplemental ranges: <140 mg/dL before meals <180 mg/dL all other times of the day Blood specimen (specimen) 08/02/2017 11:58 AM EST 08/02/2017 11:58 AM EST Li Sepulveda MD POINT OF CARE TEST O JORGE ALBERTO Performing Organization Address [facility] Phone Number [facility] [place] [address] * POCT Glucose (08/02/2017 8:01 AM EST) POC Glucose 81 65 - 199 mg/dL [facility] Comment: Supplemental ranges: <140 mg/dL before meals <180 mg/dL all other times of the day Blood specimen (specimen) 08/02/2017 8:01 AM EST 08/02/2017 8:01 AM EST Li Sepulveda MD POINT OF CARE TEST O JORGE ALBERTO Performing Organization Address [facility] de Phone Number [facility] [place] [address] * POCT Glucose (08/01/2017 7:58 PM EST) POC Glucose 102 65 - 199 mg/dL [facility] Comment: Supplemental ranges: <140 mg/dL before meals <180 mg/dL all other times of the day Blood specimen (specimen) 08/01/2017 7:58 PM EST 08/01/2017 7:58 PM EST Li Sepulveda MD POINT OF CARE TEST O RDERABLES Performing Organization Address [facility] de Phone Number [facility] [place] [address] * POCT Glucose (08/01/2017 3:29 PM EST) POC Glucose 124 65 - 199 mg/dL [facility] Comment: Supplemental ranges: <140 mg/dL before meals <180 mg/dL all other times of the day Blood specimen (specimen) 08/01/2017 3:29 PM EST 08/01/2017 3:29 PM EST Li Sepulveda MD POINT OF CARE TEST O RDERAFRANNIE Performing Organization Address [facility] de Phone Number [facility] [place] [address] * POCT Glucose (08/01/2017 10:57 AM EST) POC Glucose 104 65 - 199 mg/dL [facility] Comment: Supplemental ranges: <140 mg/dL before meals <180 mg/dL all other times of the day Blood specimen (specimen) 08/01/2017 10:57 AM EST 08/01/2017 10:57 AM EST Li Sepulveda MD POINT OF CARE TEST O RDERAFRANNIE Performing Organization Address [facility] de Phone Number [facility] [place] [address] * POCT Glucose (08/01/2017 6:08 AM EST) POC Glucose 114 65 - 199 mg/dL [facility] Comment: Supplemental ranges: <140 mg/dL before meals <180 mg/dL all other times of the day Blood specimen (specimen) 08/01/2017 6:08 AM EST 08/01/2017 6:08 AM EST Li Sepulveda MD POINT OF CARE TEST O RDANG Performing Organization Address [facility]/ZIP Co de Phone Number [facility] [place] [address] * POCT Glucose (07/31/2017 7:38 PM EST) POC Glucose 129 65 - 199 mg/dL [facility] Comment: Supplemental ranges: <140 mg/dL before meals <180 mg/dL all other times of the day Blood specimen (specimen) 07/31/2017 7:38 PM EST 07/31/2017 7:38 PM EST Li Sepulveda MD POINT OF CARE TEST O RDERAFRANNIE Performing Organization Address City/[facility]/ZIP Co de Phone Number [facility] [place] [address] * POCT Glucose (07/31/2017 4:34 PM EST) POC Glucose 152 65 - 199 mg/dL [facility] Comment: Supplemental ranges: <140 mg/dL before meals <180 mg/dL all other times of the day Blood specimen (specimen) 07/31/2017 4:34 PM EST 07/31/2017 4:34 PM EST Li Sepulveda MD POINT OF CARE TEST O BENJYERAFRANNIE Performing Organization Address City/[facility]/ZIP Co de Phone Number [facility] [place] [address] * POCT Glucose (07/31/2017 2:10 PM EST) POC Glucose 89 65 - 199 mg/dL [facility] Comment: Supplemental ranges: <140 mg/dL before meals <180 mg/dL all other times of the day Blood specimen (specimen) 07/31/2017 2:10 PM EST 07/31/2017 2:10 PM EST Li Sepulveda MD POINT OF CARE TEST O RDERAFRANNIE [facility] [place] [address] * POCT Glucose (07/31/2017 11:09 AM EST) POC Glucose 152 65 - 199 mg/dL [facility] Comment: Supplemental ranges: <140 mg/dL before meals <180 mg/dL all other times of the day Blood specimen (specimen) 07/31/2017 11:09 AM EST 07/31/2017 11:09 AM EST Li Sepulveda MD POINT OF CARE TEST O JORGE ALBERTO [facility] [place] [place] [address] * POCT Glucose (07/31/2017 6:15 AM EST) POC Glucose 95 65 - 199 mg/dL [facility] Comment: Supplemental ranges: <140 mg/dL before meals <180 mg/dL all other times of the day Blood specimen (specimen) 07/31/2017 6:15 AM EST 07/31/2017 6:15 AM EST Li Sepulveda MD POINT OF CARE TEST O JORGE ALBERTO Performing Organization Address [facility]/ZIP Co de Phone Number [facility] [address] * POCT Glucose (07/31/2017 2:19 AM EST) POC Glucose 127 65 - 199 mg/dL [facility] Comment: Supplemental ranges: <140 mg/dL before meals <180 mg/dL all other times of the day Blood specimen (specimen) 07/31/2017 2:19 AM EST 07/31/2017 2:19 AM EST Li Sepulveda MD POINT OF CARE TEST O JORGE ALBERTO [facility] [place] [address] * POCT Glucose (07/30/2017 10:11 PM EST) POC Glucose 112 65 - 199 mg/dL [facility] Comment: Supplemental ranges: <140 mg/dL before meals <180 mg/dL all other times of the day Blood specimen (specimen) 07/30/2017 10:11 PM EST 07/30/2017 10:11 PM EST Li Sepulveda MD POINT OF CARE TEST O JORGE ALBERTO Performing Organization Address [facility] Co de Phone Number [facility] [place] [address] * POCT Glucose (07/30/2017 5:26 PM EST) POC Glucose 128 65 - 199 mg/dL [facility] Comment: Supplemental ranges: <140 mg/dL before meals <180 mg/dL all other times of the day Blood specimen (specimen) 07/30/2017 5:26 PM EST 07/30/2017 5:26 PM EST Li Sepulveda MD POINT OF CARE TEST O JORGE ALBERTO Performing Organization Address [facility] de Phone Number [facility] [place] [address] * POCT Glucose (07/30/2017 1:18 PM EST) POC Glucose 152 65 - 199 mg/dL [facility] Comment: Supplemental ranges: <140 mg/dL before meals <180 mg/dL all other times of the day Blood specimen (specimen) 07/30/2017 1:18 PM EST 07/30/2017 1:18 PM EST Li Sepulveda MD POINT OF CARE TEST O JORGE ALBERTO Performing Organization Address [facility] Co de Phone Number [facility] [address] * POCT Glucose (07/30/2017 9:39 AM EST) POC Glucose 134 65 - 199 mg/dL [facility] Comment: Supplemental ranges: <140 mg/dL before meals <180 mg/dL all other times of the day Blood specimen (specimen) 07/30/2017 9:39 AM EST 07/30/2017 9:39 AM EST Li Sepulveda MD POINT OF CARE TEST O JORGE ALBERTO Performing Organization Address [facility] Co de Phone Number [facility] [place] [address] * POCT Glucose (07/30/2017 5:14 AM EST) POC Glucose 125 65 - 199 mg/dL [facility] Comment: Supplemental ranges: <140 mg/dL before meals <180 mg/dL all other times of the day Blood specimen (specimen) 07/30/2017 5:14 AM EST 07/30/2017 5:14 AM EST Li Sepulveda MD POINT OF CARE TEST O JORGE ALBERTO Performing Organization Address [facility] Co de Phone Number [facility] [address] * POCT Glucose (07/30/2017 1:13 AM EST) POC Glucose 153 65 - 199 mg/dL [facility] Comment: Supplemental ranges: <140 mg/dL before meals <180 mg/dL all other times of the day Blood specimen (specimen) 07/30/2017 1:13 AM EST 07/30/2017 1:13 AM EST Li Sepulveda MD POINT OF CARE TEST O JORGE ALBERTO Performing Organization Address [facility] Co de Phone Number [facility] [place] [address] * POCT Glucose (07/29/2017 9:06 PM EST) POC Glucose 136 65 - 199 mg/dL [facility] Comment: Supplemental ranges: <140 mg/dL before meals <180 mg/dL all other times of the day Blood specimen (specimen) 07/29/2017 9:06 PM EST 07/29/2017 9:06 PM EST Li Sepulveda MD POINT OF CARE TEST O JORGE ALBERTO Performing Organization Address [facility] Co de Phone Number [facility] [place] [address] * POCT Glucose (07/29/2017 6:06 PM EST) POC Glucose 137 65 - 199 mg/dL [facility] Comment: Supplemental ranges: <140 mg/dL before meals <180 mg/dL all other times of the day Blood specimen (specimen) 07/29/2017 6:06 PM EST 07/29/2017 6:06 PM EST Li Sepulveda MD POINT OF CARE TEST Yee AZUL Performing Organization Address [facility] Co de Phone Number [facility] [place] [address] * POCT Glucose (07/29/2017 1:53 PM EST) POC Glucose 130 65 - 199 mg/dL [facility] Comment: Supplemental ranges: <140 mg/dL before meals <180 mg/dL all other times of the day Blood specimen (specimen) 07/29/2017 1:53 PM EST 07/29/2017 1:53 PM EST Li Sepulveda MD POINT OF CARE TEST O JORGE ALBERTO Performing Organization Address [facility] Co de Phone Number [facility] [place] [address] * POCT Glucose (07/29/2017 9:37 AM EST) POC Glucose 149 65 - 199 mg/dL [facility] Comment: Supplemental ranges: <140 mg/dL before meals <180 mg/dL all other times of the day Blood specimen (specimen) 07/29/2017 9:37 AM EST 07/29/2017 9:37 AM EST Li Sepulveda MD POINT OF CARE TEST O RDANG Performing Organization Address [facility] Phone Number [facility] [place] [address] * POCT Glucose (07/29/2017 5:16 AM EST) POC Glucose 130 65 - 199 mg/dL [facility] Comment: Supplemental ranges: <140 mg/dL before meals <180 mg/dL all other times of the day Blood specimen (specimen) 07/29/2017 5:16 AM EST 07/29/2017 5:16 AM EST Li Sepulveda MD POINT OF CARE TEST O JORGE ALBERTO Performing Organization Address [facility] Phone Number [facility] [place] [address] * POCT Glucose (07/29/2017 1:10 AM EST) POC Glucose 135 65 - 199 mg/dL [facility] Comment: Supplemental ranges: <140 mg/dL before meals <180 mg/dL all other times of the day Blood specimen (specimen) 07/29/2017 1:10 AM EST 07/29/2017 1:10 AM EST Li Sepulveda MD POINT OF CARE TEST O RDANG Performing Organization Address [facility] Phone Number [facility] [place] [address] * POCT Glucose (07/28/2017 9:05 PM EST) POC Glucose 127 65 - 199 mg/dL [facility] Comment: Supplemental ranges: <140 mg/dL before meals <180 mg/dL all other times of the day Blood specimen (specimen) 07/28/2017 9:05 PM EST 07/28/2017 9:05 PM EST Li Sepulveda MD POINT OF CARE TEST O RDERABLES Performing Organization Address [facility] Co de Phone Number [facility] [place] [address] * Group B Streptococcus Screen (07/28/2017 6:55 PM EST) Group B Strep Screen Neg [facility] Pooled specimen from vaginal introitus and rectal swab (specimen) 07/28/2017 6:55 PM EST 07/28/2017 7:41 PM EST Comment:Penicillin Allergy?- >No Narrative Resulting Agency Comment Spec In Lab Li Sepulveda MD MICROBIOLOGY - GENER AL ORDERABLES Performing Organization Address [facility] Co de Phone Number [facility] [place] [address] * Antibody screen manual (07/28/2017 6:55 PM EST) AB Screen Interp Negative [facility] Blood specimen (specimen) Venous Draw / Unknown 07/28/2017 6:55 PM EST 07/28/2017 7:55 PM EST Narrative Resulting Agency Comment Spec In Lab Emerita Rosario MD BLOOD BANK LAB ORDER KURT Performing Organization Address [facility] Co de Phone Number [facility] [place] [address] * Ab Comment (07/28/2017 6:55 PM EST) Ab Information INTERPRETATION : The patient's serum has a casey-agglutinin that reacts only with solid-phase antigens. ??No casey-agglutinin is detected when red cells in solution are used in the assay. ??The casey-agglutinin detected is not clinically significant. Kanika Williamson i, MD, PhD Transfusion Medicine Service 08/06/17 17:28 [facility] Comment: KANIKA LIM, Pathologist Verified:08/06/17 Blood specimen (specimen) 07/28/2017 6:55 PM EST 07/28/2017 7:58 PM EST Narrative Resulting Agency Comment Spec In Lab Emerita Rosario MD BLOOD BANK LAB ORDER KURT Performing Organization Address City/[facility] Co de Phone Number [facility] [place] [address] * Antibody identification (07/28/2017 6:55 PM EST) Ab Identified Panagglutinin [facility] Blood specimen (specimen) 07/28/2017 6:55 PM EST 07/28/2017 7:58 PM EST Narrative Resulting Agency Comment Spec In Lab Li Sepulveda MD BLOOD BANK LAB ORDER KURT Performing Organization Address [facility] Co de Phone Number [facility] [place] [address] * ABORH Recheck Status (07/28/2017 6:55 PM EST) ABORH Recheck Order Order Placed [facility] ABORH Type Recheck Complete [facility] Blood specimen (specimen) 07/28/2017 6:55 PM EST 07/28/2017 7:58 PM EST Narrative Resulting Agency Comment Spec In Lab Li Sepulveda MD BLOOD BANK LAB ORDER KURT Performing Organization Address [facility] Co de Phone Number [facility] [address] * Antibody screen (07/28/2017 6:55 PM EST) Ab Screen Interp Positive [facility] Expires at [id number] on: 07/31/2017 [facility] Blood specimen (specimen) 07/28/2017 6:55 PM EST 07/28/2017 7:58 PM EST Narrative Resulting Agency Comment Spec In Lab Li Sepulveda MD BLOOD BANK LAB ORDER KURT Performing Organization Address City/[facility]/ZIP Co de Phone Number [facility] [place] [address] * ABO/Rh Typing (07/28/2017 6:55 PM EST) ABORH Type B Pos [facility] Blood specimen (specimen) 07/28/2017 6:55 PM EST 07/28/2017 7:58 PM EST Narrative Resulting Agency Comment Spec In Lab Li Sepulveda MD BLOOD BANK LAB ORDER KURT [facility] [place] [place] [address] * (ABNORMAL) Differential, Automated (07/28/2017 6:55 PM EST) Neutrophils % 72.4 % [facility] Neutr Abs (ANC) 7.06(H) 1.70 - 6.10 x10(3)/ L [facility] Lymphocytes % 19.0 % [facility] Lymphocytes Abs 1.8 0.9 - 3.2 x10(3)/ L [facility] Monocytes % 7.2 % [facility] Monocyte Abs 0.7 0.3 - 0.9 x10(3)/ L [facility] Eosinophils % 0.8 % [facility] Eosinophils Abs 0.1 0.0 - 0.4 x10(3)/ L [facility] Basophils % 0.2 % [facility] Basophils Abs 0.0 0.0 - 0.1 x10(3)/ L [facility] Immature Gran % 0.40 % [facility] Comment: Immature granulocytes(IG's)percentage and absolute count will include metamyelocytes, myelocytes, and promyelocytes. Blood smears from CBCs yielding IG's will be scanned manually for concordance. If this scan disagrees with the automated IG or if promyelocytes are noted, a manual differential will be performed. Josie Gran Abs 0.04 0.00 - 0.04 x10(3)/ L [facility] Blood specimen (specimen) 07/28/2017 6:55 PM EST 07/28/2017 7:24 PM EST Narrative Resulting Agency Comment Spec In Lab Li Sepulveda MD HEMATOLOGY ORDERABLE S Performing Organization Address City/[facility] Co de Phone Number [facility] [address] * (ABNORMAL) Hemogram (07/28/2017 6:55 PM EST) WBC 9.8(H) 4.0 - 9.5 x10(3)/[facility] RBC 3.89(L) 4.00 - 5.21 x10(6)/[facility] Hemoglobin 11.4(L) 11.7 - 15.5 gm/dL [facility] Hematocrit 33.2(L) 35.7 - 45.8 % [facility] MCV 85.3 82.6 - 94.4 [facility] MCH 29.3 27.1 - 32.0 pg [facility] MCHC 34.3 31.7 - 35.0 gm/dL [facility] Platelets 274 145 - 357 x10(3)/[facility] RDWSD 40.0 37.0 - 46.0 [facility] RDWCV 13.0 11.5 - 14.1 % [facility] MPV 8.5 7.6 - 12.9 [facility] nRBC % Auto 0.0 % [facility] nRBC Abs Auto 0.000 0.000 - 0.000 x10(3)/[facility] Blood specimen (specimen) 07/28/2017 6:55 PM EST 07/28/2017 7:24 PM EST Narrative Resulting Agency Comment Spec In Lab Li Sepulveda MD HEMATOLOGY ORDERABLE S Performing Organization Address City/State/[facility] Co de Phone Number [facility] [address] * Group B Strep Culture Screen (07/28/2017 6:55 PM EST) [facility] Group B Streptococcus Culture No Group B Streptococci isolated [facility] Pooled specimen from vaginal introitus and rectal swab (specimen) 07/28/2017 6:55 PM EST 07/28/2017 7:41 PM EST Comment:PENICILLIN ALLERGY?- >NO Narrative Resulting Agency Comment Spec In Lab Li Sepulveda MD MICROBIOLOGY - GENER AL ORDERABLES Performing Organization Address [facility] de Phone Number [facility] [place] [address] * THC (Marijuana), Urine Confirmation (07/28/2017 6:45 [...] developed and its performance characteristics ?determined by [facility] in a manner consistent with CLIA ?requirements. This test has not been cleared or approved by ?the U.S. Food and Drug Administration. ?Test Performed by: ?[facility] ?[address] [place] [address] [facility] Urine specimen (specimen) 07/28/2017 6:45 PM EST 07/29/2017 8:33 AM EST Narrative Resulting Agency Comment Spec In Lab Emerita Rosario MD URINE ORDERABLES [facility] [place] [address] * (ABNORMAL) TEREZA Screen w/ Confirmation (07/28/2017 6:45 PM EST) U Barbiturates Screen None Detected None Detected [facility] Comment: The barbiturate screen detects [...] U Benzodiazepines Screen None Detected None Detected [facility] Comment: The benzodiazepines screen detects [...] U Cocaine Screen None Detected None Detected [facility] Comment: The cocaine metabolites screen detects benzoylecgonine (Cocaine Metabolite) at concentrations >150 ng/mL. A ? Presumptive Positive? result indicates that the screening result was positive but has not yet been confirmed by a highly-specific method. As with any screen, occasional false positive results from cross-reacting substances may occur. Not for Medico-Legal Purposes. U Methadone Metabolites Screen None Detected None Detected [facility] Comment: The methadone metabolite screen detects EDDP (major methadone metabolite) at concentrations >100 ng/mL. A ? Presumptive Positive? result indicates that the screening result was positive but has not yet been confirmed by a highly-specific method. As with any screen, occasional false positive results from cross-reacting substances may occur. Not for Medico-Legal Purposes. U Opiate Screen None Detected None Detected [facility] Comment: The opiates screen detects [...] U Cannabinoid Screen Presumptive Pos(A) None Detected [facility] Comment: The marijuana metabolites screen detects the THC metabolite (63-dgx-9-carboxy-delta 9-THC) at concentrations >20 ng/mL. A ? Presumptive Positive? result indicates that the screening result was positive but has not yet been confirmed by a highly-specific method. As with any screen, occasional false positive results from cross-reacting substances may occur. Not for Medico-Legal Purposes. U Oxycodone Screen None Detected None Detected [facility] Comment: The oxycodone screen detects oxycodone and oxymorphone at concentrations >100 ng/mL. A ? Presumptive Positive? result indicates that the screening result was positive but has not yet been confirmed by a highly-specific method. As with any screen, occasional false positive results from cross-reacting substances may occur. Not for Medico-Legal Purposes. U Buprenorphine Screen None Detected None Detected [facility] Comment: The buprenorphine screen detects buprenorphine at concentrations >5 ng/mL. A ? Presumptive Positive? result indicates that the screening result was positive but has not yet been confirmed by a highly-specific method. As with any screen, occasional false positive results from cross-reacting substances may occur. Not for Medico-Legal Purposes. U Fentanyl Screen None Detected None Detected [facility] Comment: The fentanyl screen detects fentanyl at concentrations >2 ng/mL. A ? Presumptive Positive? result indicates that the screening result was positive but has not yet been confirmed by a highly-specific method. As with any screen, occasional false positive results from cross-reacting substances may occur. Not for Medico-Legal Purposes. U Tricyclics Screen None Detected None Detected [facility] Comment: The tricyclics screen detects [...] U Ethanol Screen None Detected None Detected [facility] Comment:This urine ethanol a ssay detects ethanol at concentrations >/= 100 mg/L. U Amphetamines Screen None Detected None Detected [facility] Comment: The amphetamine screen detects d-amphetamine and d-methamphetamine at concentrations >300 ng/mL. A ? Presumptive Positive? result indicates that the screening result was positive but has not yet been confirmed by a highly-specific method. As with any screen, occasional false positive results from cross-reacting substances may occur. Not for Medico-Legal Purposes. U Adulterants Screen None Detected None Detected [facility] Comment: No adulteration or dilution of this urine sample was detected. All urine samples submitted for urine drugs of abuse analysis are tested for creatinine concentration, pH, and for the presence of oxidants, nitrites, and chromate. Urine specimen (specimen) 07/28/2017 6:45 PM EST 07/28/2017 7:23 PM EST Narrative Resulting Agency Comment Spec In Lab Li Sepulveda MD CHEMISTRY ORDERABLES [facility] [place] [address] * TEREZA Request (07/28/2017 6:45 PM EST) TEREZA Conf Requested Yes [facility] TEREZA Requested See Comment [facility] Comment:Refer to the TEREZA Scr een w/ Confirmation order for results. Urine specimen (specimen) 07/28/2017 6:45 PM EST 07/28/2017 7:23 PM EST Narrative Resulting Agency Comment Spec In Lab Li Sepulveda MD URINE ORDERABLES [facility] [place] [address] documented in this encounter Visit Diagnoses Not on filedocumented in this encounter Administered Medications Inactive Administered Medications - up to 3 most recent administrations Medication Order MAR Action Action Date Dose Rate Site acetaminophen (TYLENOL) tablet 650 mg 650 mg, [...] Given 09/15/2017 4:15 AM EST 650 mg cyclobenzaprine (FLEXERIL) tablet 10 mg 10 mg, Oral, 3 TIMES DAILY PRN, Starting on Thu09/13/17 at 0950, Until Thu09/15/17 at 2040, Muscle spasms, Routine Given 09/14/2017 3:16 PM EST 10 mg Given 09/14/2017 2:56 AM EST 10 mg Given 09/13/2017 6:35 PM EST 10 mg docusate sodium (COLACE) capsule 100 mg [...] Given 09/14/2017 9:17 PM EST 324 mg ibuprofen (ADVIL;MOTRIN) tablet 600 mg 600 [...] Given 09/15/2017 4:15 AM EST 600 mg lactated Ringers infusion 100 mL/hr, Intravenous, CONTINUOUS, Starting on Thu09/11/17 at 1500, Until Thu09/15/17 at 2040, Administer until tolerating clear liquids then saline lock. Rate/Dose Verify 09/12/2017 7:00 PM EST 100 mL/hr 100 mL/hr Rate/Dose Verify 09/11/2017 3:57 PM EST 100 mL/hr 100 mL/ hr New Bag 09/11/2017 2:55 PM EST 100 mL/hr 100 mL/hr methylergonovine (METHERGINE) injection ONCE PRN, Starting on Thu09/11/17 at 1205, Until Thu09/15/17 at 2040, Intra-Operative (Intra-Procedure), Routine Given 09/11/2017 12:05 PM EST 0.2 mg Right Quadriceps ondansetron (ZOFRAN) injection 4 mg 4 mg, [...] Given 09/11/2017 4:15 PM EST 40 mg simethicone (MYLICON) chewable tablet 80 mg 80 [...] link provided on this medication record., Routine documented in this encounter Active and Recently Administered Medications Times are shown in EST. Scheduled Medication Order 09/13/2017 09/14/2017 09/15/2017 docusate sodium (COLACE) capsule 100 mg 100 mg, Oral, 2 TIMES DAILY, First dose on Thu09/11/17 at 2100, Until Discontinued, Routine 0900 (Not Given - Provider: Yumiko Cochran RN - Reason: Patient/family refused)2100 (Not Given - Provider: Pam Valenzuela RN - Reason: Patient/family refused) 0900 (Due)2117 (Given - Provider: Emely Nagy RN) 0953 (Given - Provider: Asif Grove RN) ferrous gluconate tablet 324 mg 324 mg, Oral, 3 TIMES DAILY, First dose on Thu09/14/17 at 0900, Until Discontinued 0900 (Due)1500 (Due)2117 (Given - Provider: Emely Nagy, NYA) 0953 (Given - Provider: Asif Grove RN)1500 (Not Given - Provider: Asif Grove RN [...] Freda Ching, NYA)2100 (Given - Provider: Pam Valenzuela RN) 0900 (Due - Provider: Freda Ching RN)2100 (Given - Provider: Emely Nagy, NYA) 0954 (Given - Provider: Asif Grove RN) Continuous Medication Order 09/13/2017 09/14/2017 09/15/2017 lactated [...] RN)2115 (Given - Provider: Emely Nagy RN) 041 (Given - Provider: Emely Nagy RN)1010 (Given - Provider: Asif Grove RN)1824 (Given - Provider: Asif Grove RN) cyclobenzaprine (FLEXERIL) tablet 10 mg 10 mg, Oral, 3 TIMES DAILY PRN, Starting on 09/13/17 at 0950, Until Thu09/15/17 at 2040, Muscle spasms, Routine 1029 (Given - Provider: Yumiko Cochran RN)183 (Given - Provider: Yumiko Cochran RN) 0256 (Given - Provider: Pam Valenzuela RN)151 (Given - Provider: Valery Hoover RN) ibuprofen (ADVIL;MOTRIN) tablet 600 mg 600 mg, Oral, EVERY 6 HOURS PRN, Starting on 09/13/17 at 1320, Until Thu09/15/17 at 2040, Pain, Administer orally with milk or food to minimize GI irritation. Maximum dose of 3200 mg from all sources in 24 hours, Routine 2115 (Given - Provider: Emely Nagy RN) 414 (Given - Provider: Emely Nagy RN)101 (Given - Provider: Asif Grove RN)1824 (Given - Provider: Asif Grove RN) ondansetron (ZOFRAN) injection 4 mg 4 mg, Intravenous, EVERY 8 HOURS PRN, Starting on Thu08/07/17 at 1016, Until Thu09/15/17 at 2040, Nausea, Routine 1527 (Given - Provider: Valery Hoover RN) oxyCODONE (ROXICODONE) immediate release tablet 5-10 mg [...] Mike RN)0946 (Not Given - Provider: Yumiko Cochran, RN - Reason: Patient/family refused)1202 (Given - Provider: Yumiko Cochran, RN)1615 (Given - Provider: Yumiko Cochran, RN)211 (Given - Provider: Pam Valenzuela, NYA) 0119 (Given - Provider: Pam Valenzuela, RN)1011 (Given - Provider: Valery Hoover, RN)1050 (Given - Provider: Valery Hoover, NYA) simethicone (MYLICON) chewable tablet 80 mg 80 mg, Oral, 4 TIMES DAILY PRN, Starting on Thu09/11/17 at 1554, Until Thu09/15/17 at 2040, Cramping, gas pain, Routine 2110 (Given - Provider: Pam Valenzuela RN) sodium chloride 0.9 % flush 5-20 mL [...] Routine documented in this encounter Care Teams Supervisor Underwriting Clerks Relationship Specialty Start Date End Date None None PCP - General 05/29/17 09/02/21 documented as of this encounter
--- OUTSIDE RECORDS SUMMARY | 2024-03-03 18:58 | XMS_ITS | Encounter Summary ---
Author Organization [facility] Address [address] [place] [address] Care Team Providers Care Clip Bolter And Wrapper Name Role Phone Unknown, Provider Primary Care Provider [phone] Encounter Details Date Type Department Care Team (Late st Contact Info) Description 04/21/2021 Lab Requisition [facility] Pathology & Laboratory Medicine - [facility] [address] [place] [address] Outr Resulting Lab, Provider Social History Tobacco Use Types Packs/Day Years Used Date Smoking Tobacco: Never Assessed Sex and Gender Information Value Date Recorded Sex Assigned at Not on file Gender Identity Not on file Sexual Orientation Not on file documented as of this encounter Plan of Treatment Not on file documented as of this encounter Visit Diagnoses Not on filedocumented in this encounter Care Teams Clip Bolter And Wrapper Relationship Specialty Start Date End Date Unknown, Provider, PCP - General 05/06/12 documented as of this encounter
--- OUTSIDE RECORDS SUMMARY | 2024-03-03 18:58 | XMS_ITS | Encounter Summary ---
Author Organization [facility] Address [address] [place] [address] Care Team Providers Care Lining Caser Name Role Phone Unknown, Provider Primary Care Provider Encounter Details Date Type Department Care Team (Late st Contact Info) Description 10/07/2021 Lab Requisition [facility] Pathology & Laboratory Medicine - [facility] [address] [place] [address] Outr Resulting Lab, Provider Social History Tobacco [...] Procedure Name Priority Date/Time Associated Diagnosis Comments MEASLES IGG AB Routine 10/07/2021 10:15 EST RUBELLA IGG ANTIBODY Routine 10/07/2021 10:15 EST HEPATITIS B SURFACE ANTIBODY Routine 10/07/2021 10:15 EST MUMPS ANTIBODY IGG Routine 10/07/2021 10 :15 EST documented in this encounter Results * HEPATITIS B SURFACE ANTIBODY (10/07/2021 10:15 EST) Hep B Surface Ab, Quantitative 152.4 See Note mIU/mL 10/08/2021 10:06 EST [facility] Comment: Reference Range for Hep B Surface Ab, Quant: Positive: >= 10.0 mIU/mL Negative: ??< 10.0 mIU/mL Patient is presumed to be immune to infection with Hepatitis B Virus. Hep B Surface Ab, Qualitative Positive See Note 10/08/2021 10:06 EST [facility] Comment: Reference Range for Hep B Surface Ab, Qual: Unvaccinated: ??Negative Vaccinated: ??Positive Blood VENOUS BLOOD / Unknown 10/07/2021 10:15 EST 10/07/2021 22:13 EST Provider Outr Resulting Lab CHEMISTRY & BLOOD GAS ORDERABLES Performing Organization Address City/[facility] Co de Phone Number [facility] [address] [place] [address] * MEASLES IGG AB (10/07/2021 10:15 EST) Measles IgG Ab Positive See Note 10/08/2021 9:36 EST [facility] Comment:Presence of detectab le measles virus IgG antibodies. Blood VENOUS BLOOD / Unknown 10/07/2021 10:15 EST 10/07/2021 22:13 EST Provider Outr Resulting Lab IMMUNOLOGY A ND SEROLOGY ORDERABLES Performing Organization Address [facility] Co de Phone Number [facility] [address] [place] [address] * MUMPS ANTIBODY IGG (10/07/2021 10:15 EST) Mumps Antibody IgG Negative See Note 10/08/2021 9:39 EST [facility] Comment:Absence of detectabl e mumps virus IgG antibodies. A negative result generally indicates that the patient is susceptible to mumps. Blood VENOUS BLOOD / Unknown 10/07/2021 10:15 EST 10/07/2021 22:13 EST Provider Outr Resulting Lab IMMUNOLOGY A ND SEROLOGY ORDERABLES Performing Organization Address [facility] Co de Phone Number [facility] [address] [place] [address] * RUBELLA IGG ANTIBODY (10/07/2021 10:15 EST) Rubella IgG Ab Positive See Note 10/08/2021 9:40 EST [facility] Comment:Positive for IgG ant ibodies to Rubella virus. Blood VENOUS BLOOD / Unknown 10/07/2021 10:15 EST 10/07/2021 22:13 EST Provider Outr Resulting Lab CHEMISTRY & BLOOD GAS ORDERABLES Performing Organization Address City/State/[facility] Co de Phone Number [facility] [address] [place] [address] documented in this encounter Visit Diagnoses Not on filedocumented in this encounter Care Teams Lining Caser Relationship Specialty Start Date End Date Unknown, Provider, PCP - General 05/06/12 documented as of this encounter
--- OUTSIDE RECORDS SUMMARY | 2024-03-03 18:58 | XMS_ITS | Encounter Summary ---
Author Organization [facility] Address [facility] [place] [address] Care Team Providers Care Wardrobe Assistant Name Role Phone None Primary Care Provider Unavailabl e Reason for Visit * Reason Comments Routine Visit Encounter Details Date Type Department Care Team (Late st Contact Info) Description 07/09/2017 10:45 AM EST Routine Obstetrics [place] [address] Lolita Barrett MD [facility] DR OBSTETRICS & [place] [address] GA: [id number] Social History Tobacco Use Types Packs/Day Years Used Date Smoking Tobacco: Former Smokeless Tobacco: Never Comments Yes Sex and Gender Information Value Date Recorded Sex Assigned at Not on file Gender Identity Not on file Sexual Orientation Not on file documented as of this encounter Last Filed Vital Signs Vital Sign Reading Time Taken Comments Blood Pressure 129/64 07/09/2017 11:08 AM EST Pulse - - Temperature - - Respiratory Rate - - Oxygen Saturation - - Inhaled Oxygen Concentration - - Weight 104.1 kg (229 lb 9.6 oz) 017 11:08 AM EST Height - - Body Mass Index 46.37 06/04/2017 10:46 AM EDT documented in this encounter Progress Notes * Lolita Barrett MD - 07/09/2017 10:45 AM EST FM felt, no LOF, no bleeding or richard. US appropriate growth, lowlying placenta 1.5cm from os, placenta vessel 0.9cm from os c/w VASA PREVIA. Reports infrequently checking glucose because sleeps a lot. Not keeping log. Was 98 this am. Discussed risks of untreated GDM in including macrosomia and glucose and electrolyte abnormalities. I inquired about depression and she endorses a history and not being currently managed as she doesn't feel like getting out of bed to go [facility]. I offered referral to [facility] for assessment for depression. She initially declined then after several times offering she accepted. I attempted to contact [facility] but the patient left before she was able to be seen. I discussed vasa previa and low lying placenta and the risks for bleeding. I gave precautionsto seek care with any bleeding and pelvic rest. I recommended a f/u US at ~ 28 weeks. I discussed possible admission at ~ 28 weeks if vasa previa persists and delivery at ~ 34 weeks. There is no evidence of placenta accreta though 2 prior deliveries and placenta previa carries an increasedrisk. The placenta is primarily posterior lateral. I recommend visit with [facility] at next visit documented in this encounter Plan of Treatment Not on file documented as of this encounter Results * US OB Follow Up Evaluation (07/28/2017 10:22 AM EST) Anatomical Region Laterality Modality Pelvis, Abdomen Ultrasound 07/28/2017 10:1 0 AM EST Impressions 07/28/2017 10:51 AM EST 2nd Trimester Summary Single intrauterine with a gestational age of 27w 4d based on LMP ??(01/16/17). Composite age based on the current ultrasound alone is 26w 4d. Current growth parameters are consistent with prior dating indicating normal growth. Amniotic fluid volume is normal. Transvaginal ultrasound done for placenta location. Low lying placenta is seen. ??Umbilical blood vessels run immediately adjacent to the cervical consistent with vasa previa anatomic evaluation was performed and no structural abnormalities are noted. ?Li Sepulveda MD Electronically Signed Final Report ?? 07/28/2017 10:51 am Narrative 07/28/2017 10:51 AM EST OBSTETRICS REPORT ? (Signed Final 07/28/2017 10:51 am) PATIENT INFO: ID #: ? [id number] ?: ??[birth year] (27 yrs) Name: ? RAVINDRA Lopez ?Visit Date: 07/28/2017 10:10 am ? ROBERT PERFORMED BY: Performed By: ? Dhara Hicks RDMS Attending: ?Derick TAY, Li Umanzor Referred By: ?LOLITA BARRETT Location: ? [place] SERVICE(S) PROVIDED: ??UOBFOL - Efw - Growth - Hernandez - [id number] ? [id number] ??UOBTV - Viability - Cervical Length -Transvaginal - ?? [id number] ??[id number] INDICATIONS: ??27 weeks gestation of ?Z3A.27 ??placenta, vessels. OB HISTORY: Blood ?B+ ?Height: ??4'11 ?? Weight (lb): 236 ? BMI: ??47.66 Type: EVALUATION: Num Of Fetuses: ? 1 Heart ? 144 Rate(bpm): Cardiac Activity: ?? Observed, normal rhythm Presentation: ? Cephalic Placenta: ? Left lateral and posterior Low lying P. Cord Insertion: ??Not visualized Amniotic Fluid SHERI FV: ?Normal SHERI Sum(cm) ? Largest Pocket(cm) 8.69 ?5.4 RUQ(cm) ? RLQ(cm) ? LUQ(cm) ?LLQ(cm) 5.4 ? 0.0 ? 0.0 ?3.29 --------- BIOMETRY: --------- BPD: ?66.1 ??mm ? G.Age: ?? 26w 4d ?14 ??% OFD: ?85.0 ??mm HC: ?242.0 ??mm ? G.Age: ?? 26w 2d ? < 3 ??% AC: ?221.8 ??mm ? G.Age: ?? 26w 4d ?17 ??% FL: ? 50.0 ??mm ? G.Age: ?? 26w 6d ?19 ??% HUM: ?47.8 ??mm ? G.Age: ?? 28w 0d ?57 ??% HUM: ?47.8 ??mm ? G.Age: ?? 28w 0d ?57 ??% FL: ? 50.0 ??mm ? G.Age: ?? 26w 6d ?19 ??% CI: ?77.8 ??% ? 70 - 86 FL/HC: ? 20.7 ??% ? 18.8 - 20.6 HC/AC: ? 1.09 ?1.05 - 1.21 FL/BPD: ?75.6 ??% ? 71 - 87 FL/AC: ? 22.5 ??% ? 20 - 24 Est. FW: ? 969 ?? gm ? 2 lb 2 oz ?53 ??% GESTATIONAL AGE: LMP: ? 27w 4d ?Date: ??01/16/17 ? CHITRA: ?? 10/23/17 U/S Today: ? 26w 4d ?CHITRA: ?? 10/30/17 Best: ?27w 4d ?? Det. By: ??LMP ??(01/16/17) ?CHITRA: ?? 10/23/17 -------- ANATOMY: -------- Cranium: ? Visualized Cavum: ? Limited views Ventricles: ?Not Visualized Choroid Plexus: ?Not Visualized Cerebellum: ?Not Visualized Posterior Fossa: ? Not Visualized Nuchal Fold: ? Not evaluated at this gestational age Face: ?Limited views Heart: ? Limited Views RVOT: ?Not seen due to position LVOT: ?Not seen due to position Diaphragm: ? Limited views Stomach: ? Visualized Abdomen: ? Limited Views Abdominal Wall: ?Limited views Cord Vessels: ?Limited Views Kidneys: ? Limited views Bladder: ? Visualized Spine: ? Limited views Upper Extremities: ? Limited views Lower Extremities: ? Limited views CERVIX UTERUS ADNEXA: Left Ovary Not visualized Right Ovary Not visualized Procedure Note Li Sepulveda MD - 07/28/2017 OBSTETRICS REPORT (Signed Final 07/28/2017 10:51 am) PATIENT INFO: ID #: [id number] : [birth year] (27 yrs) Name: RAVINDRA Lopez Visit Date: 07/28/2017 10:10 am ROBERT PERFORMED BY: Performed By: Dhara Hicks RDMS Attending: Li Sepulveda MD Referred By: LOLITA BARRETT Location: [place] SERVICE(S) PROVIDED: UOBFOL - Efw - Growth - Hernandez - [id number] UOBTV - Viability - Cervical Length -Transvaginal - [id number] INDICATIONS: 27 weeks gestation of Z3A.27 placenta, vessels. OB HISTORY: Blood B+ Height: 4'11 Weight (lb): 236 BMI: 47.66 Type: EVALUATION: Num Of Fetuses: 1 Heart 144 Rate(bpm): Cardiac Activity: Observed, normal rhythm Presentation: Cephalic Placenta: Left lateral and posterior Low lying P. Cord Insertion: Not visualized Amniotic Fluid SHERI FV: Normal SHERI Sum(cm) Largest Pocket(cm) 8.69 5.4 RUQ(cm) RLQ(cm) LUQ(cm) LLQ(cm) 5.4 0.0 0.0 3.29 --------- BIOMETRY: --------- BPD: 66.1 mm G.Age: 26w 4d 14 % OFD: 85.0 mm HC: 242.0 mm G.Age: 26w 2d < 3 % AC: 221.8 mm G.Age: 26w 4d 17 % FL: 50.0 mm G.Age: 26w 6d 19 % HUM: 47.8 mm G.Age: 28w 0d 57 % HUM: 47.8 mm G.Age: 28w 0d 57 % FL: 50.0 mm G.Age: 26w 6d 19 % CI: 77.8 % 70 - 86 FL/HC: 20.7 % 18.8 - 20.6 HC/AC: 1.09 1.05 - 1.21 FL/BPD: 75.6 % 71 - 87 FL/AC: 22.5 % 20 - 24 Est. FW: 969 gm 2 lb 2 oz 53 % GESTATIONAL AGE: LMP: 27w 4d Date: 01/16/17 CHITRA: 10/23/17 U/S Today: 26w 4d CHITRA: 10/30/17 Best: 27w 4d Det. By: LMP (01/16/17) CHITRA: 10/23/17 -------- ANATOMY: -------- Cranium: Visualized Cavum: Limited views Ventricles: Not Visualized Choroid Plexus: Not Visualized Cerebellum: Not Visualized Posterior Fossa: Not Visualized Nuchal Fold: Not evaluated at this gestational age Face: Limited views Heart: Limited Views RVOT: Not seen due to position LVOT: Not seen due to position Diaphragm: Limited views Stomach: Visualized Abdomen: Limited Views Abdominal Wall: Limited views Cord Vessels: Limited Views Kidneys: Limited views Bladder: Visualized Spine: Limited views Upper Extremities: Limited views Lower Extremities: Limited views CERVIX UTERUS ADNEXA: Left Ovary Not visualized Right Ovary Not visualized IMPRESSION 2nd Trimester Summary Single intrauterine with a gestational age of 27w 4d based on LMP (01/16/17). Composite age based on the current ultrasound alone is 26w 4d. Current growth parameters are consistent with prior dating indicating normal growth. Amniotic fluid volume is normal. Transvaginal ultrasound done for placenta location. Low lying placenta is seen. Umbilical blood vessels run immediately adjacent to the cervical consistent with vasa previa anatomic evaluation was performed and no structural abnormalities are noted. Li Sepulveda MD Electronically Signed Final Report 07/28/2017 10:51 am Lolita Barrett MD IMG US OB ORDERABL ES documented in this encounter Visit Diagnoses Diagnosis Supervision of high risk in second trimester Unspecified high-risk Vasa previa, single or unspecified fetus Supervision of high risk in second trimester Unspecified high-risk documented in this encounter Care Teams Wardrobe Assistant Relationship Specialty Start Date End Date None None PCP - General 05/29/17 09/02/21 documented as of this encounter
--- OUTSIDE RECORDS SUMMARY | 2024-03-03 18:58 | XMS_ITS | Encounter Summary ---
Author Organization [facility] Adithya [place] [address] Care Team Providers Care Skimmer Scoop Operator Name Role Phone None Primary Care Provider Unavailabl e Reason for Visit * Reason Comments Routine Visit Encounter Details Date Type Department Care Team (Late st Contact Info) Description 06/16/2017 1:30 PM EDT Routine Obstetrics [place] [address] Crow Martines MD [facility] DR OBSTETRICS & [place] [address] GA: 21w4d Social History Tobacco Use Types Packs/Day Years Used Date Smoking Tobacco: Former Smokeless Tobacco: Never Comments Yes Sex and Gender Information Value Date Recorded Sex Assigned at Not on file Gender Identity Not on file Sexual Orientation Not on file documented as of this encounter Last Filed Vital Signs Vital Sign Reading Time Taken Comments Blood Pressure 122/65 06/16/2017 1:44 PM EDT Pulse - - Temperature - - Respiratory Rate - - Oxygen Saturation - - Inhaled Oxygen Concentration - - Weight 106 kg (233 lb 11.2 oz) 06/16/2017 1:44 P M EDT Height - - Body Mass Index 47.2 06/04/2017 10:46 AM EDT documented in this encounter Progress Notes * Crow Martines MD - 06/16/2017 1:30 PM EDT Ms. Lake returns today after echocardiogram, which was felt to be normal. She is in a much better place today, and we were able to discuss the findings of her previous ultrasound in more detail. We reviewed placenta previa, history of two deliveries, risk of morbidly adherent placenta, risk of bleeding in antepartum period, risk of need for extended hospitalization, risk of delivery, possible need for hysterectomy. She is clear that should she not require hysterectomy she would not consider tubal ligation. She did not bring her glucose log today for review. She is currently on NPH 6u am and 20u pm; she reports good control. She met briefly with Janice Benedict, in order to discuss sending in glucose log so we may make adjustments as needed. She reports good movement, no contractions, bleeding or leaking fluid. Plan for RTC in 4 weeks with f/u ultrasound for growth, and reevaluation of placenta. 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
--- OUTSIDE RECORDS SUMMARY | 2024-03-03 18:58 | XMS_ITS | Encounter Summary ---
Author Organization [facility] Address [address] [place] [address] Care Team Providers Care Dairy Consultant Name Role Phone Unknown, Provider Primary Care Provider Encounter Details Date Type Department Care Team (Late st Contact Info) Description 08/31/2022 Lab Requisition [facility] Pathology & Laboratory Medicine - [facility] [address] [place] [address] Outr Resulting Lab, Provider Social History Tobacco [...] Procedure Name Priority Date/Time Associated Diagnosis Comments CHLAMYDIA/N. GONORRHOEAE AMPLIFIED NUCLEIC ACID Routine 08/29/2022 22:50 EST documented in this encounter Results * CHLAMYDIA/N. GONORRHOEAE AMPLIFIED RNA (08/29/2022 22:50 EST) Neisseria gonorrhoeae Result Negative Negative 09/01/2022 13:25 EST [facility] Chlamydia trachomatis Result Negative Negative 09/01/2022 13:25 EST [facility] Swab ENTIRE VAGINA / Unknown 08/29/2022 22:50 EST 08/31/2022 18:01 EST Provider Outr Resulting Lab MICROBIOLOGY - GENERAL ORDERABLES [facility] [address] [place] [address] documented in this encounter Visit Diagnoses Not on filedocumented in this encounter Care Teams Dairy Consultant Relationship Specialty Start Date End Date Unknown, Provider, PCP - General 05/06/12 documented as of this encounter
--- OUTSIDE RECORDS SUMMARY | 2024-03-03 18:58 | XMS_ITS | Encounter Summary ---
Author Organization [facility] [place] [address] Care Team Providers Care Client Hr Manager Name Role Phone None Primary Care Provider Unavailabl e Encounter Details Date Type Department Care Team (Latest Contact Info) Description 06/16/2017 11:48 AM EDT - 06/16/2017 11:59 PM EDT Hospital Encounter Non-Invasive [place] [address] Sj Martines MD [facility] OBSTETRICS & [place] [address] Gestational diabetes mellitus (GDM) in second trimester, gestational diabetes method of control unspecified Discharge Disposition: Home Social History Tobacco Use Types Packs/Day Years Used Date Smoking Tobacco: Former Smokeless Tobacco: Never Comments Yes Sex and Gender Information Value Date Recorded Sex Assigned at Not on file Gender Identity Not on file Sexual Orientation Not on file documented as of this encounter Medications at Time of Discharge [...] 20 tablet 3 09/14/2017 10/27/2017 vitamin with isnkmufc-Uv-Jgvt-FA Tablet Take 1 tablet by mouth daily. 10/27/2017 insulin NPH (HUMULIN N;NOVOLIN N) Insulin Pen Inject 26 Units subcutaneously nightly. 09/11/19 18 blood sugar diagnostic strips Strip 1 each by Other route 4 times daily. Use as instructed 09/11/2017 lancets Misc 1 each by Misc.(Non-Drug; Combo Route) route 4 times daily. 09/11/2017 ondansetron (ZOFRAN-ODT) 4 mg Tablet, Rapid Dissolve Take 8 mg by mouth every 8 hours as needed for Nausea. 10/27/2017 documented as of this encounter Plan of Treatment Not on file documented as of this encounter Procedures Procedure Name Priority Date/Time Associated Diagnosis Comments ECHO COMPLETE Routine 06/16/2017 1 :38 PM EDT Gestational diabetes mellitus (GDM) in second trimester, gestational diabetes method of control unspecified documented in this encounter Results * ECHO COMPLETE (06/16/2017 1:38 PM EDT) Anatomical Region Laterality Modality Other 06/16/2017 Narrative 06/16/2017 1:42 PM EDT Procedure: ?Pediatric Echocardiogram Patient: ?ROBERT WAITE ?? (Age): 1990(27y) ? Med Rec#: ? [id number] ?Sex: ?F ? Site Loc: ? [facility] ?Ht / Wt: ??(cm)/ (kg) ? Pt. Loc: ? Study Date: ?? 06/16/2017 ?Pt. Type: Study Quality: ? Referring: Jane Martines Reading: Ike Thomas I ([id number]) Junior Designer: Lolita Birmingham Diagnosis: *ICD-10-PCS Gestational diabetes mellitus in , unspecified control (O24.419) BP: ? / SUMMARY: 1. A echocardiogram was performed at 21wk4d gestation based on estimated due date 10/23/2017, for indication of presumed pre-gestational diabetes. Fair quality images were obtained. ??The fetus is in breech position. 2. Normal heart rate (150 ??bpm). Normal mechanical MA interval (124 ms). No arrhythmia detected. 3. No cardiac structural abnormalities were identified. Normal chamber dimensions, myocardial appearance, wall thickness, ventricular systolic function. 4. No hydrops. 5. Normal echocardiogram. No specific or cardiac follow-up is required on this basis of this study. 6. The limitations of echocardiography include the inability to diagnose patent ductus arteriosus, some atrial and ventricular septal defects, minor valve abnormalities and coarctation. FINDINGS: ? Venous Connections ?There are normal systemic venous connections, with the superior and inferior vena cavae returning to the right atrium. Normal spectral Doppler patterns in umbilical vein, ductus venosus, ductus arteriosus, and umbilical artery. ?At least one pulmonary vein from each side enters the left atrium. No pulmonary venous anomalies are detected. ?? Atrial Septum ?There is a patent foramen ovale (PFO). ?There is auywj-uk-zftu shunting across the patent foramen ovale with color Doppler. (Normal physiology.) Av Valves ?The tricuspid valve is functionally and structurally normal. ?The tricuspid valve diameter measures 6 mm in the lateral plane obtained from the A4C view. (Z-Score: -0.22) ?The mitral valve is functionally and structurally normal. ?The mitral valve diameter measures 6 mm in the lateral plane obtained from the A4C view. (Z-Score: -0.24) Ventricles ?The right ventricle is of normal size. ?The right ventricular systolic function is normal. ?The left ventricular chamber size, wall thickness and systolic function are normal. ?The global left ventricular systolic function is normal. Ventricular Septum ?The interventricular septum is intact with no evidence of a ventricular septal defect. Semilunar Valves ?The pulmonary valve annulus diameter measures 4 mm. (Z-Score: +0.36) ?The pulmonary valve leaflets are of normal thickness. ?The aortic valve annulus diameter measures 3.7 mm. (Z-Score: +1.12) ?The aortic valve leaflets are of normal thickness. Thoracic Arteries ?The main pulmonary artery is normal, without dilatation, stenosis, or aneurysm. The great arteries are normally related. ?The right pulmonary artery has normal size, origin, and configuration. ?The left pulmonary artery has normal size, origin, and configuration. ?There is a patent ductus arteriosus. ?There is prwko-uv-fqen shunting across the patent ductus arteriosus with color Doppler. (Normal physiology.) ?The ascending aorta is normal, without dilatation or narrowing. ?The ascending aorta diameter measures 3.5 mm from the long axis view. (Z-Score: -0.29) ?The aortic arch is normal, without dilatation, aneurysm or coarctation. The aortic isthmus is normal sized. ?The aortic isthmus diameter measures 2.6 mm distal to the left subclavian artery. (Z-Score: +0.20) ?The descending aorta is normal, without dilatation, narrowing or aneurysm. Effusion ?There is no pericardial effusion. ?No evidence of hydrops. Mitral Valve ?Value ?Units (Range) ? Z Score ? MV diam (lateral) 4C6 ?mm ? Tricuspid Valve ?Value ?Units (Range) ? Z Score ? TV diam (lateral) 4C6 ?mm ? Pulmonary Valve / RV ?Value ?Units (Range) ? Z Score ? PV mushtaq diam 2D ?4 ?mm ? Aorta ?Value ?Units (Range) ? Z Score ? AV mushtaq diam 2D ?3.7 ?mm ? Asc Ao diam (LAX) ?? 3.5 ?mm ? Isthmus diam (SSN) ??2.6 ?mm ? All Z scores are estimated This report has been electronically signed by: Ike Thomas ? 06/16/2017 13:41:41 Images reviewed and interpretation verified [facility] Cardiac Ultrasound Laboratory Procedure Note Ike Thomas MD - 06/16/2017 Procedure: Pediatric Echocardiogram Patient: ROBERT CUADRA(Age): 1990(27y) Med Rec#: [id number] Sex: F Site Loc: [facility] [place] [facility] Ht / Wt: (cm)/ (kg) Pt. Loc: Study Date: 06/16/2017 Pt. Type: Study Quality: Referring: Jane Martines Reading: Ike Thomas I ([id number]) Junior Designer: Lolita Birmingham Diagnosis: *ICD-10-PCS Gestational diabetes mellitus in , unspecified control (O24.419) BP: / SUMMARY: 1. A echocardiogram was performed at 21wk4d gestation based on estimated due date 10/23/2017, for indication of presumed pre-gestational diabetes. Fair quality images were obtained. The fetus is in breech position. 2. Normal heart rate (150 bpm). Normal mechanical MA interval (124 ms). No arrhythmia detected. 3. No cardiac structural abnormalities were identified. Normal chamber dimensions, myocardial appearance, wall thickness, ventricular systolic function. 4. No hydrops. 5. Normal echocardiogram. No specific or cardiac follow-up is required on this basis of this study. 6. The limitations of echocardiography include the inability to diagnose patent ductus arteriosus, some atrial and ventricular septal defects, minor valve abnormalities and coarctation. FINDINGS: Venous Connections There are normal systemic venous connections, with the superior and inferior vena cavae returning to the right atrium. Normal spectral Doppler patterns in umbilical vein, ductus venosus, ductus arteriosus, and umbilical artery. At least one pulmonary vein from each side enters the left atrium. No pulmonary venous anomalies are detected. Atrial Septum There is a patent foramen ovale (PFO). There is gtffu-kc-hfxe shunting across the patent foramen ovale with color Doppler. (Normal physiology.) Av Valves The tricuspid valve is functionally and structurally normal. The tricuspid valve diameter measures 6 mm in the lateral plane obtained from the A4C view. (Z-Score: -0.22) The mitral valve is functionally and structurally normal. The mitral valve diameter measures 6 mm in the lateral plane obtained from the A4C view. (Z-Score: -0.24) Ventricles The right ventricle is of normal size. The right ventricular systolic function is normal. The left ventricular chamber size, wall thickness and systolic function are normal. The global left ventricular systolic function is normal. Ventricular Septum The interventricular septum is intact with no evidence of a ventricular septal defect. Semilunar Valves The pulmonary valve annulus diameter measures 4 mm. (Z-Score: +0.36) The pulmonary valve leaflets are of normal thickness. The aortic valve annulus diameter measures 3.7 mm. (Z-Score: +1.12) The aortic valve leaflets are of normal thickness. Thoracic Arteries The main pulmonary artery is normal, without dilatation, stenosis, or aneurysm. The great arteries are normally related. The right pulmonary artery has normal size, origin, and configuration. The left pulmonary artery has normal size, origin, and configuration. There is a patent ductus arteriosus. There is nmajs-rl-sqme shunting across the patent ductus arteriosus with color Doppler. (Normal physiology.) The ascending aorta is normal, without dilatation or narrowing. The ascending aorta diameter measures 3.5 mm from the long axis view. (Z-Score: -0.29) The aortic arch is normal, without dilatation, aneurysm or coarctation. The aortic isthmus is normal sized. The aortic isthmus diameter measures 2.6 mm distal to the left subclavian artery. (Z-Score: +0.20) The descending aorta is normal, without dilatation, narrowing or aneurysm. Effusion There is no pericardial effusion. No evidence of hydrops. Mitral Valve Value Units (Range) Z Score MV diam (lateral) 4C6 mm Tricuspid Valve Value Units (Range) Z Score TV diam (lateral) 4C6 mm Pulmonary Valve / RV Value Units (Range) Z Score PV mushtaq diam 2D 4 mm Aorta Value Units (Range) Z Score AV mushtaq diam 2D 3.7 mm Asc Ao diam (LAX) 3.5 mm Isthmus diam (SSN) 2.6 mm All Z scores are estimated This report has been electronically signed by: Ike Latasha Martha 06/16/2017 13:41:41 Images reviewed and interpretation verified [facility] Cardiac Ultrasound Laboratory E Yeny Martines MD ECHO ORDERABLES documented in this encounter Visit Diagnoses Diagnosis Gestational diabetes mellitus (GDM) in second trimester, gestational diabetes method of control unspecified documented in this encounter Care Teams Client Hr Manager Relationship Specialty Start Date End Date None None PCP - General 05/29/17 09/02/21 documented as of this encounter
--- OUTSIDE RECORDS SUMMARY | 2024-03-03 18:58 | XMS_ITS | Encounter Summary ---
Author Organization [facility] Address [address] [place] [address] Care Team Providers Care Oil Dipper Name Role Phone Unknown, Provider Primary Care Provider [phone] Encounter Details Date Type Department Care Team (Late st Contact Info) Description 04/21/2021 Lab Requisition [facility] Pathology & Laboratory Medicine - [facility] [address] [place] [address] Outr Resulting Lab, Provider Social History Tobacco [...] Procedure Name Priority Date/Time Associated Diagnosis Comments SYPHILIS SEROLOGY Routine 04/20/2021 15: 35 EDT documented in this encounter Results * SYPHILIS SEROLOGY (04/20/2021 15:35 EDT) Syphilis Serology Negative Negative 04/22/2021 10:33 EDT [facility] Blood VENOUS BLOOD / Unknown 04/20/2021 15:35 EDT 04/21/2021 16:08 EDT Provider Outr Resulting Lab IMMUNOLOGY A ND SEROLOGY ORDERABLES [facility] [address] [place] [address] documented in this encounter Visit Diagnoses Not on filedocumented in this encounter Care Teams Oil Dipper Relationship Specialty Start Date End Date Unknown, ProviderMD PCP - General 05/06/12 documented as of this encounter
--- OUTSIDE RECORDS SUMMARY | 2024-03-03 18:58 | XMS_ITS | Encounter Summary ---
Author Organization [facility] Address [facility] [place] [address] Care Team Providers Care Acute Care Physician Name Role Phone None Primary Care Provider Unavailabl e Reason for Visit * Auth/Cert Specialty Diagnoses / Procedures Referred By Jose Enrique velazco Referred To Contact Diagnoses Vasa previa Procedures JUDSON IPI Referral ID Status Reason Start Date Expiration Date Visits Re quested Visits Authorized [id number] 1 1 Encounter Details Date Type Department Care Team (Latest Contact Info) Description 07/28/2017 9:30 AM EST - 07/28/2017 2:51 PM [facility] Hospital [place] [address] Lolita Barrett MD [facility] OBSTETRICS & [place] [address] Supervision of high risk in second trimester Discharge Disposition: Home Social History Tobacco Use [...] 20 tablet 3 09/14/2017 10/27/2017 vitamin with zitgxarc-Tn-Gmao-FA Tablet Take 1 tablet by mouth daily. [...] Procedure Name Priority Date/Time Associated Diagnosis Comments US OB FOLLOW UP Routine 07/28/2017 10:22 AM EST Supervision of high risk in second trimester documented in this encounter Results * US OB Follow [...] 10:51 am) PATIENT INFO: ID #: ? [id number] ?: ??[birth year] (27 yrs) Name: ? RAVINDRA Lopez ?Visit Date: 07/28/2017 10:10 am ? ROBERT PERFORMED BY: Performed By: ? Dhara Hicks RDMS Attending: ?Derick TAY, Li Umanzor Referred By: ?LOLITA BARRETT Location: ? [facility] SERVICE(S) PROVIDED: ??UOBFOL - Efw - Growth - Hernandez - [id number] ? [id number] ??UOBTV - Viability - Cervical Length -Transvaginal - ?? [id number] ??[id number] INDICATIONS: ??27 weeks gestation of ?Z3A.27 ??placenta, vessels. OB HISTORY: Blood ?B+ ?Height: ??4'11 ?? Weight (lb): 236 ? BMI: ??47.66 Type: EVALUATION: Num Of Fetuses: ? 1 Heart ? 144 Rate(bpm): Cardiac Activity: ?? Observed, normal rhythm Presentation: ? Cephalic Placenta: ? Left lateral and posterior Low lying P. Cord Insertion: ??Not visualized Amniotic Fluid SHERI FV: ?Normal SHEIR Sum(cm) ? Largest Pocket(cm) 8.69 ?5.4 RUQ(cm) [...] 07/28/2017 10:51 am) PATIENT INFO: ID #: [id number] : [birth year] (27 yrs) Name: RAVINDRA Lopez Visit Date: 07/28/2017 10:10 am ROBERT PERFORMED BY: Performed By: Dhara Hicks RDMS Attending: Li Sepulveda MD Referred By: LOLITA BARRETT Location: [facility] SERVICE(S) PROVIDED: UOBFOL - Efw - Growth - Hernandez - [id number] UOBTV - Viability - Cervical Length -Transvaginal - [id number] INDICATIONS: 27 weeks gestation of Z3A.27 placenta, [...] 4d 17 % FL: 50.0 mm G.Age: w 6d 19 % HUM: 47.8 mm G.Age: [...] Best: 27w 4d Det. By: LMP (01/16/17) CIHTRA: 10/23/17 -------- ANATOMY: -------- Cranium: Visualized Cavum: [...] high-risk documented in this encounter Care Teams Acute Care Physician Relationship Specialty Start Date End Date None None PCP - General 05/29/17 09/02/21 documented as of this encounter
--- OUTSIDE RECORDS SUMMARY | 2024-03-03 18:58 | XMS_ITS | Encounter Summary ---
Author Organization [facility] Address [address] [place] [address] Care Team Providers Care Check Writing Machine Operator Name Role Phone Unavailable Primary Care Provider Unavailabl e Encounter Details Date Type Department Care Team (Late st Contact Info) Description 01/21/2011 Results Only [facility] [phone] Li Pastor, BRIM MOLDER [address] [address] Social History Tobacco Use Types Packs/Day Years Used Date Smoking Tobacco: Never Assessed Sex and Gender Information Value Date Recorded Sex Assigned at Not on file Gender Identity Not on file Sexual Orientation Not on file documented as of this encounter Plan of Treatment Not on file documented as of this encounter Procedures Procedure Name Priority Date/Time Associated Diagnosis Comments PAP TEST- RESULT ONLY Routine 01/21/2011 0:00 EDT documented in this encounter Results * PAP TEST- RESULT ONLY (01/21/2011 0:00 EDT) Pathology Report: CYTOPATHOLOGY REPORT ? Reports generated via electronic interface contain original data; ? however they are lacking the format of the original report. ? Caution should be taken when reading/interpreti ng unformatted reports. ? Name: ? PAM JONES ? Accession #: ? [id number] ? : ? 1990 (Age: 20) ??F ?Collect Date: ? 01/21/2011 ? Location: ? [facility] ? Receive Date: ? 01/23/2011 ? Provider: ?LI J SACHIN BRIM MOLDER ? Copy to: ? Specimen/Source: ?Pap Test, Cervix/Endocervix, ThinPrep Imaging System ? with manual evaluation ? Last Menstrual Period: ? Menstrual/Pregnanc y Status: ? SPECIMEN ADEQUACY ? Satisfactory for Evaluation ? - transformation zone component present ? GENERAL CATEGORIZATION ? Negative for Intraepithelial Lesion or Malignancy ? INTERPRETATION ? Reactive cellular changes associated with inflammation present (includes ?? repair). ? Shift in tamiko present suggestive of bacterial vaginosis. ? Document reviewed and electronically signed by: ? GLADWYN LEIMAN MBBCh ? Report Date: ??01/29/2011 18:26 ? End of Report ? [facility] 01/21/2011 01/23/2011 Li Pastor APRN PATHOLOGY ORDERABLES [facility] [address] [place] [address] documented in this encounter Visit Diagnoses Not on filedocumented in this encounter
--- OUTSIDE RECORDS SUMMARY | 2024-03-03 18:58 | XMS_ITS | Encounter Summary ---
Author Organization [facility] [place] [address] Care Team Providers Care Weight And Balance Control Agent Name Role Phone None Primary Care Provider Unavailabl e Reason for Visit * Reason Onset Date Comments Questions 07/06/2017 Encounter Details Date Type Department Care Team (Late st Contact Info) Description 07/06/2017 Telephone Obstetrics and Gynecology at [facility] [place] [phone] Swapna Crawford RN Questions Social History Tobacco Use Types Packs/Day Years Used Date Smoking Tobacco: Former Smokeless Tobacco: Never Comments Yes Sex and Gender Information Value Date Recorded Sex Assigned at Not on file Gender Identity Not on file Sexual Orientation Not on file documented as of this encounter Miscellaneous Notes * Telephone Encounter - Swapna Crawford RN - 07/06/2017 5:52 PM EST Pam admits to being under a great deal of stress and is not checking her blood sugars. She isafraid that something is wrong because of this. She is anxious but denies hyperglycemia symptoms. No bleeding, lower back pain but no menses like cramping. Plan: I have asked her to check her bs 4 x daily and bring to the visit on . Parameters forelevated bs reviewed and she is to call for bs > 200. She agrees to this plan. * Telephone Encounter - Swapna Crawford RN - 07/06/2017 5:52 PM EST ----- Message from Lionel Richmond sent at 07/06/2017 2:38 PM EST ----- Patient spoke to continuous drier operator doc last night, had lots of cramping was told to take a bath. Cramps have continues and now she is feeling a strong pressure documented in this encounter Plan of Treatment Not on file documented as of this encounter Visit Diagnoses Not on filedocumented in this encounter Care Teams Weight And Balance Control Agent Relationship Specialty Start Date End Date None None PCP - General 05/29/17 09/02/21 documented as of this encounter
--- OUTSIDE RECORDS SUMMARY | 2024-03-03 18:58 | XMS_ITS | Encounter Summary ---
Author Organization [facility] Address [address] [place] [address] Care Team Providers Care Polygraph Operator Name Role Phone Unknown, Provider Primary Care Provider Encounter Details Date Type Department Care Team (Late st Contact Info) Description 04/21/2021 Lab Requisition [facility] Pathology & Laboratory Medicine - [facility] [address] [place] [address] Outr Resulting Lab, Provider Social History Tobacco [...] Procedure Name Priority Date/Time Associated Diagnosis Comments ACUTE HEPATITIS PROFILE Today 04/20/2021 15:35 EDT HIV 1/2 ANTIGEN AND ANTIBODY, 4TH GENERATION Today 04/20/2021 15:35 EDT documented in this encounter Results * HIV 1/2 ANTIGEN AND ANTIBODY, 4TH GENERATION (04/20/2021 15:35 EDT) HIV 1 and 2 Antibody/p24 Antigen, 4th Generation Negative Negative 04/22/2021 10:26 EDT [facility] Comment: If acute HIV-1 infection is suspected in a high risk ??patient, submit plasma specimen for HIV-1 RNA quantitation test. Fourth Generation assay performed on the Siemens YouGoDoaur. Blood VENOUS BLOOD / Unknown 04/20/2021 15:35 EDT 04/21/2021 16:08 EDT Provider Outr Resulting Lab IMMUNOLOGY A ND SEROLOGY ORDERABLES Performing Organization Address [facility] Co de Phone Number [facility] [address] [place] [address] * ACUTE HEPATITIS PROFILE (04/20/2021 15:35 EDT) Hep B Surface Ag Negative Negative 04/22/2021 11:08 EDT [facility] Hep C Antibody Negative Negative 04/22/2021 11:08 EDT [facility] Hepatitis A Antibody, IgM Negative Negative 04/22/2021 11:08 EDT [facility] Comment:The results of this assay can be falsely lowered due to the consumption of Biotin. Hepatitis B Core Ab, Total Negative Negative 04/22/2021 11:08 EDT [facility] Blood VENOUS BLOOD / Unknown 04/20/2021 15:35 EDT 04/21/2021 16:08 EDT Provider Outr Resulting Lab CHEMISTRY & BLOOD GAS ORDERABLES Performing Organization Address [facility] Co de Phone Number [facility] [address] [place] [address] documented in this encounter Visit Diagnoses Not on filedocumented in this encounter Care Teams Polygraph Operator Relationship Specialty Start Date End Date Unknown, Provider, PCP - General 05/06/12 documented as of this encounter
--- OUTSIDE RECORDS SUMMARY | 2024-03-03 18:58 | XMS_ITS | Encounter Summary ---
Author Organization [facility] Address [address] [place] [address] Care Team Providers Care Failure Analysis Engineer Name Role Phone Unavailable Primary Care Provider Unavailabl e Encounter Details Date Type Department Care Team (Late st Contact Info) Description 02/08/2010 Results Only [facility] Laboratory Services - [facility] ([facility] [address] [place] [address], [place] [id number] Ruth Ann Montero, [facility] [address] [place] [address] Social History Tobacco Use Types Packs/Day Years Used Date Smoking Tobacco: Never Assessed Sex and Gender Information Value Date Recorded Sex Assigned at Not on file Gender Identity Not on file Sexual Orientation Not on file documented as of this encounter Plan of Treatment Not on file documented as of this encounter Procedures Procedure Name Priority Date/Time Associated Diagnosis Comments CYTOPATHOLOGY Routine 02/08/2010 0:00 EDT documented in this encounter Results * CYTOPATHOLOGY (02/08/2010 0:00 EDT) Pathology Report: CYTOPATHOLOGY REPORT ? Reports generated via electronic interface contain original data; ? however they are lacking the format of the original report. ? Caution should be taken when reading/interpreti ng unformatted reports. ? Name: ? PAM JONES ? Accession #: ? [id number] ? : ? 1990 (Age: 19) ??F ?Collect Date: ? 02/08/2010 ? Location: ? [facility] ? Receive Date: ? 02/11/2010 ? Provider: ?RUTH ANN MARSHA MOTOR VEHICLE OPERATOR ROAD SUPERVISOR ? Copy to: ? Specimen/Source: ?Pap Test, Cervix/Endocervix, ThinPrep Imaging System ? with manual evaluation ? Last Menstrual Period: ? 3/10 ? SPECIMEN ADEQUACY ? Satisfactory for Evaluation ? - transformation zone component present ? GENERAL CATEGORIZATION ? Epithelial Cell Abnormality ? INTERPRETATION ? Squamous Cell Abnormality - Atypical squamous cells, undetermined ? significance (ASC-US). ? Shift in tamiko present suggestive of bacterial vaginosis. ? EDUCATIONAL NOTES/RECOMMENDATI ONS ? [facility] recommends following the 2006 Consensus Guidelines for the Management of Women with Abnormal Cervical Cancer Screening Tests (JLGTD, ? 2007;11(4):201-222 ). ??Consensus guidelines are available online at ? www.ASCCP.org. ? Document reviewed and electronically signed by: ? Joshua Nunez MD ? Report Date: ??02/15/2010 14:51 ? End of Report ? ASHUTOSH MEJIA 02/08/2010 02/11/2010 Ruth Ann Montero MOTOR VEHICLE OPERATOR ROAD SUPERVISOR PATHOLOGY ORDERABLES [facility] [address] [place] [address] documented in this encounter Visit Diagnoses Not on filedocumented in this encounter
--- OUTSIDE RECORDS SUMMARY | 2024-03-03 18:58 | XMS_ITS | Encounter Summary ---
Author Organization [facility] Address [facility] [place] [address] Care Team Providers Care Gang Drill Operator Name Role Phone None Primary Care Provider Unavailabl e Encounter Details Date Type Department Care Team ([facility] st Contact Info) Description 06/20/2017 Telephone Obstetrics and Gynecology at [facility] [place] [address] Luis Rasmussen MD [facility] DR OBSTETRICS & [place] [address] Social History Tobacco Use Types Packs/Day Years Used Date Smoking Tobacco: Former Smokeless Tobacco: Never Comments Yes Sex and Gender Information Value Date Recorded Sex Assigned at Not on file Gender Identity Not on file Sexual Orientation Not on file documented as of this encounter Miscellaneous Notes * Telephone Encounter - Luis Rasmussen - 06/20/2017 10:26 AM EDT Pam is a 27 yo at 21w6d who is calling to report decreased movement. She statesshe felt the baby move yesterday at 7:00 PM. She has been feeling more than that as of 3 weeks ago.Her is complicated by gestational diabetes requiring insulin and placenta previa. She states she feels mildly crampy, no vaginal bleeding. I offered reassurance due to early gestation, but did invite her in for [place]. However, she lives ~2 hours out. She is closer to [facility] and reports she will go there if she doesn't feel movement in the next hour or so. If she goes in, she will call and notify me so that I may give the providers at [facility] advanced notice of her arrival. LUIS RASMUSSEN MD PGY4 06/20/2017 documented in this encounter Plan of Treatment Not on file documented as of this encounter Visit Diagnoses Not on filedocumented in this encounter Care Teams Gang Drill Operator Relationship Specialty Start Date End Date None None PCP - General 05/29/17 09/02/21 documented as of this encounter
--- OUTSIDE RECORDS SUMMARY | 2024-03-03 18:58 | XMS_ITS | Encounter Summary ---
Author Organization [facility] Address [facility] [place] [address] Care Team Providers Care Television Cable Installer Name Role Phone None Primary Care Provider Unavailabl e Encounter Details Date Type Department Care Team ([facility] st Contact Info) Description 07/20/2017 Telephone Obstetrics and Gynecology at [facility] [place] [address] Desean Soto MD [facility] DR OBSTETRICS & GYNECOLOGY [place] [id number] Social History Tobacco Use Types Packs/Day Years Used Date Smoking Tobacco: Former Smokeless Tobacco: Never Comments Yes Sex and Gender Information Value Date Recorded Sex Assigned at Not on file Gender Identity Not on file Sexual Orientation Not on file documented as of this encounter Miscellaneous Notes * Telephone Encounter - Desean Soto - 07/20/2017 8:18 PM EST Pam is a 27 yo at 26w1d. Her is complicated by GDMA2 on insulin, history of2 prior sections, and newly-diagnosed vasa previa. She is calling to report that yesterday and today she is having some sharp shooting pain in her abdomen. It starts in the bottom of her abdomen and shoots down to her pelvic bone. No abnormal discharge, vaginal bleeding, loss of fluid. The pain lasts about 30 seconds and resolves on its own. It is not rhythmic. She has had up to 3 in one hour. It is better with sitting, worse with standing. + good FM. Denies SALMERON, RUQ pain, scotomata. She does report she had intercourse a few days ago. I reinforced importance of pelvic rest in the setting of not only placenta previa, but vasa previa. documented in this encounter Plan of Treatment Not on file documented as of this encounter Visit Diagnoses Not on filedocumented in this encounter Care Teams Television Cable Installer Relationship Specialty Start Date End Date None None PCP - General 05/29/17 09/02/21 documented as of this encounter
--- OUTSIDE RECORDS SUMMARY | 2024-03-03 18:58 | XMS_ITS | Encounter Summary ---
Author Organization [facility] [place] [address] Care Team Providers Care Respite Worker Name Role Phone None Primary Care Provider Unavailabl e Encounter Details Date Type Department Care Team ([facility] Contact Info) Description 05/29/2017 9:30 AM EDT Initial Obstetrics and Gynecology at [facility] [place] [address] Jayshree Whatley, RN GA: 19w0d Social History Tobacco Use Types Packs/Day Years Used Date Smoking Tobacco: Every Day Smokeless Tobacco: Never Comments Yes Sex and Gender Information Value Date Recorded Sex Assigned at Not on file Gender Identity Not on file Sexual Orientation Not on file documented as of this encounter Last Filed Vital Signs Vital Sign Reading Time Taken Comments Blood Pressure - - Pulse - - Temperature - - Respiratory Rate - - Oxygen Saturation - - Inhaled Oxygen Concentration - - Weight 107 kg (236 lb) 06/04/2017 10:44 AM EDT Height 149.9 cm (4' 11) 06/04/2017 10:46 AM EDT Body Mass Index 47.67 06/04/2017 10:44 AM EDT documented in this encounter Progress Notes * Jayshree Whatley, RN - 05/29/2017 9:30 AM EDT Patient is a AB2 at 19w1d. Here today to meet with SHERLYN, Dr Martines for referral from her OBprovider. She has GDM and is insulin controlled. She has had previous C/S deliveries and has a placenta previa with this .US done by Dr Martines. Patient emotional an upset when finding out about the previa. Left before NOB visit was finished. Unable to finish appointment. documented in this encounter Plan of Treatment Not on file documented as of this encounter Visit Diagnoses Diagnosis Insulin controlled gestational diabetes mellitus (GDM) in second trimester documented in this encounter Care Teams Respite Worker Relationship Specialty Start Date End Date None None PCP - General 05/29/17 09/02/21 documented as of this encounter
--- OUTSIDE RECORDS SUMMARY | 2024-03-03 18:58 | XMS_ITS | Encounter Summary ---
Author Organization [facility] Address [address] [place] [address] Care Team Providers Care Die Operator Name Role Phone Unknown, Provider Primary Care Provider Encounter Details Date Type Department Care Team (Late st Contact Info) Description 04/21/2021 Lab Requisition [facility] Pathology & Laboratory Medicine - [facility] [address] [place] [address] Outr Resulting Lab, Provider Social History Tobacco [...] Comments CHLAMYDIA/N. GONORRHOEAE AMPLIFIED NUCLEIC ACID Routine 04/20/2021 16:00 EDT documented in this encounter Results * CHLAMYDIA/N. GONORRHOEAE AMPLIFIED RNA (04/20/2021 16:00 EDT) Neisseria gonorrhoeae Result Negative Negative 04/22/2021 15:12 EDT [facility] Chlamydia trachomatis Result Negative Negative 04/22/2021 15:12 EDT [facility] Swab ENTIRE WALL OF CERVIX / Unknown 04/20/2021 16:00 EDT 04/21/2021 17:35 EDT Provider Outr Resulting Lab MICROBIOLOGY - GENERAL ORDERABLES [facility] [address] [place] [address] documented in this encounter Visit Diagnoses Not on filedocumented in this encounter Care Teams Die Operator Relationship Specialty Start Date End Date Unknown, Provider, PCP - General 05/06/12 documented as of this encounter
--- OUTSIDE RECORDS SUMMARY | 2024-03-03 18:58 | XMS_ITS | Encounter Summary ---
Author Organization [facility] [place] [address] Care Team Providers Care Mold Sander Name Role Phone None Primary Care Provider Unavailabl e Encounter Details Date Type Department Care Team ([facility] Contact Info) Description 08/12/2017 10:38 AM EST Anesthesia [place] [address] Marcial Bean MD [facility] [place] [address] Marcial Bean MD [facility] [place] [address] Anesthesia Record Procedure Summary Procedure Name Responsible Anesthesiologist Anesthesia Start Time Anesthesia Stop Time OB FOLLOW UP Events No events on file. Meds * Agents No agents on file. * Blood No blood administrations on file. Lines, Drains, and Airways Type Details Placement Removal (RETIRED By [facility]20) Incision 09/11/17; 1158 08/24 05/11 1158 by Asif Grove, RN documented in this encounter Social History Tobacco [...] of this encounter OR Notes * Anesthesia Preprocedure Evaluation - Marcial Bean - 07/29/2017 10:51 AM EST Images from the original note were not included. Pre-Anesthesia Evaluation for: Pam Lake a 27 y.o. female. Patient Active Problem List Diagnosis ??? Asthma [...] been reviewed. Physical Exam: Most Recent Vitals: 07/29/17 0945 BP: 111/74 Pulse: 93 Resp: 19 Temp: 37 ??C (98.6 ??F) SpO2: 97% Body mass index is 46.58 kg/(m^2). Height: (!) 150 cm (4' 11.06) Weight - Scale: (!) 104.8 kg (231 lb 0.7 oz) Airway Assessment: Mallampati: I Cardiovascular Assessment: cardiovascular exam normal Pulmonary Assessment: pulmonary exam normal Dental Assessment: - normal exam Misc Assessment: Patient is wearing No contact(s). IV access: Peripheral line Anesthesia Plan: ASA 2 Pt interviewed and examined. Pt is a 27 y.o. female who is and 27w3d here for monitoring for vasa previa. Medical history, medications, allergies, and social history reviewed, significant for GDM (insulin controlled), asthma (rare inhaler use), depression (not on meds during ), prior c/s x2 (spinal for both), marijuana use during . Labs reviewed and listed below. No contraindication to a neuraxial technique. Consent obtained. Risk, benefits discussed; questions answered. Allergies/ADR: No Known Allergies\ Personal history of problems with anesthesia: no [...] consent obtained and placed in patient's chart. Marcial Bean MD Region - Other Informed Consent: Anesthetic plan and risks discussed with patient. PAT Staff Note documented in this encounter Plan of Treatment Not on file documented as of this encounter Visit Diagnoses Not on filedocumented in this encounter Care Teams Mold Sander Relationship Specialty Start Date End Date None None PCP - General 05/29/17 09/02/21 documented as of this encounter
--- OUTSIDE RECORDS SUMMARY | 2024-03-03 18:58 | XMS_ITS | Encounter Summary ---
Author Organization [facility] [place] [address] Care Team Providers Care Bellman Driver Name Role Phone None Primary Care Provider Unavailabl e Encounter Details Date Type Department Care Team ([facility] st Contact Info) Description 06/16/2017 12:00 PM EDT Office Visit Pediatric Cardiology at [facility] [place] [address] Ike Thomas MD [address] [place] [id number] Pre-existing diabetes mellitus during in second trimester (Primary Dx) Social History Tobacco Use Types Packs/Day Years Used Date Smoking Tobacco: Former Smokeless Tobacco: Never Comments Yes Sex and Gender Information Value Date Recorded Sex Assigned at Not on file Gender Identity Not on file Sexual Orientation Not on file documented as of this encounter Patient Instructions * Patient Instructions* Ike Thomas MD - 06/16/2017 12:00 PM EDT Direct from Dr. Thomas: It was a pleasure to see you in clinic today. I want you to have a clear understanding of what we discussed at today's visit and what the next steps are. Please let me know if you have any questions.If I am not available when you call, you can always speak with one of my great nurses. Explanation of diagnosis: Normal heart by ultrasound today. See the pictures that I michael for you in clinic today. When I would like you to follow up: During : No further echocardiograms are needed unless your Hemoglobin A1c is elevated in the third trimester. After delivery: No visits with a pediatric nurse practitioner are needed unless your cabinetmaker supervisor identifies any concerns after . Thanks, Ike Thomas MD Pediatric and Cardiology documented in this encounter Progress Notes * Ike Thomas MD - 06/16/2017 12:00 PM EDT Images from the original note were not included. Patient Providers Pam Lake ( ) : 1990 (27 y.o. female) [address] [place] [address] PCP: None OB: E Yeny Martines Payor: [place]ICAID [place] / Plan: [place] / Product Type: *No Product type* / CARDIOLOGY CLINIC Reason for Visit/Indication for Evaluation: diabetes mellitus Dear Dr. Martines, I had the pleasure of seeing Pam at our [place] site today (06/16/2017) for a echocardiogram and consultation. I was asked for advice regarding the chief complaint listed above. I have reviewed the request and the records sent with it. She was accompanied. Pam Lake is a 27 y.o. old female who is currently at 21w2d gestation based on an estimated due date of 10/25/17. She conceived naturally. She plans to deliver at [facility]. Pam has a history of gestational diabetes, diagnosed at 7 weeks, and therefore presumably pre-existing. Her HgA1c does not appear to have been checked. Aside from the diabetes, the has been complicated by placenta previa. MEDICATIONS: Current Outpatient Prescriptions: ??? vitamin with [id number]-So-Gank-FA Tablet, Take 1 tablet by mouth daily., Disp: , Rfl: ??? insulin NPH (HUMULIN N;NOVOLIN N) Insulin Pen, Inject 100 Units subcutaneously nightly., Disp: , Rfl: ??? blood sugar diagnostic strips Strip, 1 each by Other route 4 times daily. Use as instructed, Disp: , Rfl: ??? lancets Misc, 1 each by Misc.(Non-Drug; Combo Route) route 4 times daily., Disp: , Rfl: ??? 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 SOCIAL HISTORY: Single. Not working. Denies smoking and drinking. Son Blayne (8) and daughter Jermaine (5). Father of baby Yanick. FAMILY MEDICAL HISTORY: No known significant childhood structural cardiac disease. No known recurrent loss or sudden infant syndrome. No known inherited arrhythmias. ECHOCARDIOGRAM RESULTS: Performed today. Personally reviewed and interpreted. Poor acoustic windows. For detailed findings,please see the full echo report. But in brief, it was normal. ?? Single intrauterine , levocardia, abdominal situs solitus, normal (S,D,S) segmental cardiac relationships. ?? The heart rate and rhythm appeared normal. ?? Normal cardiac shunts (including a moderate size foramen ovale with awagq-ff-oxgy flow, ductus arteriosus with non-restrictive diuel-br-ucnd flow, and ductus venosus). ?? No significant valve dysfunction. ?? Normal great arteries, without coarctation of the aorta. ?? Qualitatively normal biventricular size, wall thickness, and systolic function. ?? No significant pericardial effusion or hydrops. DIAGNOSIS: 27 y.o. female at 21w2d gestation. Maternal diabetes mellitus. Fetus at elevated pretest risk of congenital heart conditions and hypertrophic cardiomyopathy. ?? The primary clinical concern is a 3% to 5% risk of congenital heart conditions (CHD) affecting the fetus. ?? The secondary concern is the ~30% risk of ventricular hypertrophy. Myocardial hypertrophy may develop at any stage throughout . Luckily, most cases of hypertophy secondary to maternal diabetes cause no clinical signs or symptoms, and most resolve spontaneously in infancy. However, thereare reports of sudden in utero or stillbirth, attributed to this condition. ?? The risks to the fetus for both CHD and hypertrophy tend to be more severe with poor maternal diabetic control. Studies have shown both structural and hypertrophic changes in fetuses with well-controlled maternal diabetes. Normal echocardiogram. PLAN/RECOMMENDATIONS 1. Immediate issues ?I have reviewed normal cardiac anatomy with Pam. ?? I have relayed the above risks associated with maternal diabetes mellitus. ?? I relayed that I see no evidence of any significant structural cardiac abnormality by imaging today. 2. Expectations for remainder of : Serial follow-up echocardiography is only indicated if: (1) HCM is present at the first visit, or (2) If there is poor glycemic control. Current [place] [employer] guidelines recommend screening of HgA1c in the third trimester, and to consider repeat echo if the A1c is >6 and/or there is any concern about hypertrophy. If you have any question or concern about hypertrophy or poor glucose control, please make a second referral to our office at the appropriate time. 3. Expectations during delivery: I would not anticipate any hemodynamic complications with the child in the period. 4. Expectations after : Pam does not require further follow up in our pediatric cardiology clinic unless additional concerns arise. I counseled her about the strengths and limitations of echocardiography, that it may not be able to detect certain cardiac conditions prenatally (e.g. coronary anomalies, certain septal defects, subtle valve abnormalities, partial anomalous pulmonary venous drainage, coarctation of the aorta after ductal closure), nor can it predict the persistence of structures related to circulation(such as a PFO or PDA). echo is a potentially good, but not perfect, test. Therefore, if there is any suspicion of a cardiac abnormality shortly after , whether related to the reason for referral today or not, further evaluation would be warranted. Any questions or concerns should be dire cted to any pediatric nurse practitioner in our offices. Independent of procedural time, 10 of 10 minutes were spent with the patient in counseling to discuss normal cardiac anatomy and physiology, review of today's echocardiogram results and review of those findings which can and cannot be prenatally detected as described above. It was a pleasure to see Pam today in our office at [facility]. Thank you for the opportunity to participate in her care. I hope she found the discussion informative. If you have any questions or concerns about her symptoms, my findings, or my recommendations, please do not hesitate to give me a call any time. Ike Thomas MD Pediatric and Cardiology documented in this encounter Plan of Treatment Not on file documented as of this encounter Visit Diagnoses Diagnosis Pre-existing diabetes mellitus during in second trimester- Primary documented in this encounter Care Teams Bellman Driver Relationship Specialty Start Date End Date None None PCP - General 05/29/17 09/02/21 documented as of this encounter
--- OUTSIDE RECORDS SUMMARY | 2024-03-03 18:58 | XMS_ITS | Encounter Summary ---
Author Organization [facility] Address [address] [place] [address] Care Team Providers Care Sat Tutor Name Role Phone Unknown, Provider Primary Care Provider Encounter Details Date Type Department Care Team (Late st Contact Info) Description 08/31/2022 Lab Requisition [facility] Pathology & Laboratory Medicine - [facility] [address] [place] [address] Outr Resulting Lab, Provider Social History Tobacco [...] Procedure Name Priority Date/Time Associated Diagnosis Comments HSV (HERPES SIMPLEX VIRUS) MOLECULAR DETECTION, PCR Routine 08/29/2022 22:50 EST documented in this encounter Results * HSV (HERPES SIMPLEX VIRUS) MOLECULAR DETECTION, PCR (08/29/2022 22:50 EST) Herpes Simplex Virus Molecular Detection 1, PCR Negative Negative 09/01/2022 11:31 EST [facility] Herpes Simplex Virus Molecular Detection 2, PCR Negative Negative 09/01/2022 11:31 EST [facility] Swab NASAL / Unknown 08/29/2022 2 2:50 EST 08/31/2022 18:09 EST Provider Outr Resulting Lab MICROBIOLOGY - GENERAL ORDERABLES [facility] [address] [place] [address] documented in this encounter Visit Diagnoses Not on filedocumented in this encounter Care Teams Sat Tutor Relationship Specialty Start Date End Date Unknown, Provider, PCP - General 05/06/12 documented as of this encounter
--- OUTSIDE RECORDS SUMMARY | 2024-03-03 18:58 | XMS_ITS | Encounter Summary ---
Author Organization [facility] Address [address] [place] [address] Care Team Providers Care Grievance Manager Name Role Phone Unknown, Provider Primary Care Provider Encounter Details Date Type Department Care Team (Late st Contact Info) Description 05/03/[address] [facility] Pathology & Laboratory Medicine - [facility] [address] [place] [address] Kylie Cruz, CUSTOMER ACCOUNT ADMINISTRATOR [address] [facility] [place] [address] Encounter for other general examination Social History Tobacco Use Types Packs/Day Years Used Date Smoking Tobacco: Never Assessed Sex and Gender Information Value Date Recorded Sex Assigned at Not on file Gender Identity Not on file Sexual Orientation Not on file documented as of this encounter Plan of Treatment Not on file documented as of this encounter Procedures Procedure Name Priority Date/Time Associated Diagnosis Comments PAP TEST Today 05/02/2020 11:15 EDT Encounter for other general examination documented in this encounter Results * PAP TEST (05/02/2020 11:15 EDT) Specimens A. Cervix and/or Endocervix , ThinPrep Imaging System with Manual Evaluation 05/11/2020 13:35 EDT [facility] Specimen Adequacy Satisfactory for Evaluation - transformation zone component present 05/11/2020 13:35 EDT [facility] General Categorization Negative for intraepithelial lesion or malignancy 05/11/2020 13:35 T [facility] Descriptive Diagnosis Reactive cellular changes associated with inflammation present (includes repair). Shift in tamiko present suggestive of bacterial vaginosis. 05/11/2020 13:35 EDT [facility] Attestation By the signature below, the attending physician certifies that they have personally conducted a gross and/or microscopic examination of the described specimens and rendered or confirmed the above diagnosis. 05/11/2020 13:35 EDT [facility] at 1335 Clinical History SEE ORDER COMMENTS 05/11/2020 13:35 EDT [facility] Performing Lab [facility] 05/11/2020 13:35 EDT [facility] Scanned Images 05/11/2020 13:35 EDT [facility] Papanicolaou smear specimen (specimen) CERVIX UTERI STRUCTURE / Unknown 05/02/2020 11:15 EDT 05/03/2020 15:56 EDT Kylie A Nancy CUSTOMER ACCOUNT ADMINISTRATOR PATHOLOGY ORDERAB LES Performing Organization Address City/State/[facility] Co de Phone Number [facility] [address] [place] [address] documented in this encounter Visit Diagnoses Diagnosis Encounter for other general examination documented in this encounter Care Teams Grievance Manager Relationship Specialty Start Date End Date Unknown, Provider, PCP - General 05/06/12 documented as of this encounter
--- OUTSIDE RECORDS SUMMARY | 2024-03-03 18:58 | XMS_ITS | Encounter Summary ---
Author Organization Counts Include [facility] Address [facility] [place] [address] Care Team Providers Care Museum Or Zoo Director Name Role Phone Daly Souza MD Primary Care Provider Encounter Details Date Type Department Care Team (Late st Contact Info) Description 04/17/2017 Orders Only Obstetrics [place] [address] Crow Martines MD [facility] [address] OBSTETRICS & [place] [address] Gestational diabetes mellitus (GDM) in second trimester, gestational diabetes method of control unspecified Social History Tobacco Use Types Packs/Day Years Used Date Smoking Tobacco: Never Assessed Sex and Gender Information Value Date Recorded Sex Assigned at Not on file Gender Identity Not on file Sexual Orientation Not on file documented as of this encounter Plan of Treatment Not on file documented as of this encounter Results * ECHO COMPLETE (06/16/2017 1:38 PM EDT) Anatomical Region Laterality Modality Other 06/16/2017 Narrative 06/16/2017 1:42 PM EDT Procedure: ?Pediatric Echocardiogram Patient: ?ROBERT WAITE ?? (Age): 1990(27y) ? Med Rec#: ? [id number] ?Sex: ?F ? Site Loc: ? [facility] ?Ht / Wt: ??(cm)/ (kg) ? Pt. Loc: ? Study Date: ?? 06/16/2017 ?Pt. Type: Study Quality: ? Referring: Jane Martines Reading: Ike Thomas I ([id number]) Supervisor Inventory Merchandising: Lolita Birmingham Diagnosis: *ICD-10-PCS Gestational diabetes mellitus in , unspecified control (O24.419) BP: ? / SUMMARY: 1. A echocardiogram was performed at 21wk4d gestation based on estimated due date 10/23/2017, for indication of presumed pre-gestational diabetes. Fair quality images were obtained. ??The fetus is in breech position. 2. Normal heart rate (150 ??bpm). Normal mechanical OK interval (124 ms). No arrhythmia detected. 3. [...] a patent foramen ovale (PFO). ?There is wofjh-nn-jush shunting across the patent foramen ovale with [...] is a patent ductus arteriosus. ?There is qneir-ve-vdft shunting across the patent ductus arteriosus with [...] 06/16/2017 13:41:41 Images reviewed and interpretation verified [facility] Procedure Note Ike Thomas MD - 06/16/2017 Procedure: Pediatric Echocardiogram Patient: ROBERT CUADRA(Age): 1990(27y) Med Rec#: [id number] Sex: F Site Loc: [facility] [place] Ht / Wt: (cm)/ (kg) Pt. Loc: Study Date: 06/16/2017 Pt. Type: Study Quality: Referring: Jane Martines Reading: Ike Thomas I ([id number]) Supervisor Inventory Merchandising: Lolita Birmingham Diagnosis: *ICD-10-PCS Gestational diabetes mellitus in , unspecified control (O24.419) BP: / SUMMARY: 1. A echocardiogram was performed at 21wk4d gestation based on estimated due date 10/23/2017, for indication of presumed pre-gestational diabetes. Fair quality images were obtained. The fetus is in breech position. 2. Normal heart rate (150 bpm). Normal mechanical OK interval (124 ms). No arrhythmia detected. 3. [...] a patent foramen ovale (PFO). There is gogmv-kk-zpxw shunting across the patent foramen ovale with [...] is a patent ductus arteriosus. There is lgrww-rq-chym shunting across the patent ductus arteriosus with [...] has been electronically signed by: Ike Thomas 06/16/2017 13:41:41 Images reviewed and interpretation verified [facility] E Yeny Martines MD ECHO ORDERABLES * US OB Detailed Morphology (05/29/2017 11:29 AM EDT) Anatomical Region Laterality Modality Pelvis, Abdomen Ultrasound 05/29/2017 10:2 7 AM EDT Impressions 05/29/2017 1:54 PM EDT 2nd Trimester - Detailed Morphology - Summary Single intrauterine with a gestational age of 19w 0d based on LMP ??(01/16/17). Composite age based on the current ultrasound alone is 18w 6d. Current growth parameters are consistent with prior dating indicating normal growth. Amniotic fluid volume is appropriate for gestational age. Detailed anatomic evaluation was performed and no structural abnormalities are noted. Transvaginal ultrasound imaging performed to evaluate placental location. ??The placenta is centrally implanted over the internal cervical os, consistent with placenta previa. Visualization limited due to maternal body habitus. ??I ??viewed the images and agree with the above interpretation. ? Crow Martines MD Electronically Signed Final Report ?? 05/29/2017 01:53 pm Narrative 05/29/2017 1:54 PM EDT OBSTETRICS REPORT ? (Signed Final 05/29/2017 01:53 pm) PATIENT INFO: ID #: ? [id number] ?: ??[birth year] (27 yrs) Name: ? PAM Lopez ?Visit Date: 05/29/2017 10:27 am ? ROBERT PERFORMED BY: Performed By: ? Ruth Ann Dixon RDMS Attending: ?Conrad TAY, E ??Yeny Referred By: ?MONIQUE ORR MD Location: ? [place] SERVICE(S) PROVIDED: ??[facility] - Detailed Morphology - [id number] ? [id number] ??UOBTV - Viability - Cervical Length -Transvaginal - ?? [id number] ??[id number] INDICATIONS: ??19 weeks gestation of ?Z3A.19 ??INSULIN DEPENDENT GDM OB HISTORY: Blood ?B+ ?Height: ??4'11 ?? Weight (lb): 236 ? BMI: ??47.66 Type: EVALUATION: Num Of Fetuses: ? 1 Heart ? 144 Rate(bpm): Cardiac Activity: ?? Observed, normal rhythm Presentation: ? Cephalic Placenta: ? Complete Previa - Post/Left Lateral Ant P. Cord Insertion: ??Within Normal Limits Amniotic Fluid SHERI FV: ?Appropriate for gestational age --------- BIOMETRY: --------- BPD: ?40.8 ??mm ? G.Age: ?? 18w 2d OFD: ?55.4 ??mm HC: ?154.6 ??mm ? G.Age: ?? 18w 3d AC: ?131.2 ??mm ? G.Age: ?? 18w 4d FL: ? 31.8 ??mm ? G.Age: ?? 19w 6d HUM: ?28.5 ??mm ? G.Age: ?? 19w 1d CER: ?19.0 ??mm ? G.Age: ?? 18w 4d NFT: ? 3.2 ??mm NB: ?4.1 ??mm LV: ?4.4 ??mm CM: ?4.3 ??mm CI: ?73.6 ??% ? 70 - 86 FL/HC: ? 20.6 ??% ? 16.1 - 18.3 HC/AC: ? 1.18 ?1.09 - 1.39 FL/BPD: ?77.9 ??% FL/AC: ? 24.2 ??% ? - Est. FW: ? 275 ?? gm ?? 0 lb 10 oz GESTATIONAL AGE: LMP: ? 19w 0d ?Date: ??01/16/17 ? CHITRA: ?? 10/23/17 U/S Today: ? 18w 6d ?CHITRA: ?? 10/24/17 Best: ?19w 0d ?? Det. By: ??LMP ??(01/16/17) ?CHITRA: ?? 10/23/17 TARGETED ANATOMY: Central Nervous System Calvarium/Cranial V.: ??Within Normal Limits Intracranial Arely: ? Within Normal Limits Cavum: ? Visualized Parenchyma: ?Within Normal Limits Lateral Ventricles: ?Within Normal Limits Choroid Plexus: ?Within Normal Limits Cereb./Vermis: ? Within Normal Limits Cisterna Magna: ?Within Normal Limits Midline Falx: ?Within Normal Limits Spine Cervical: ?Visualized Thoracic: ?Visualized Lumbar: ?Visualized Sacral: ?Visualized Shape/Curvature: ? Visualized Head/Neck Face: ?Visualized Lips: ?Within Normal Limits Neck: ?Visualized Nuchal Fold: ? Within Normal Limits Nasal Bone: ?Present Profile: ? Visualized Orbits/Eyes: ? Visualized Mandible: ?Visualized Maxilla: ? Visualized Thorax Thoracic Contour: ?Visualized Lungs: ? Visualized 4 Chamber View: ?Within Normal Limits Cardiac Motion: ?Normal Rhythm Rt Outflow Tract: ?Visualized Lt Outflow Tract: ?Visualized Aortic Arch: ? Visualized Ductal Arch: ? Visualized SVC: ? Visualized Cardiac Streator: ?Visualized Diaphragm: ? Visualized 3 Vessel View: ? Visualized IVC: ? Visualized Crossing: ?Visualized Abdomen Ventral Wall: ?Visualized Cord Insertion: ?Visualized Situs: ? Normal Stomach: ? Visualized Liver: ? Visualized Lt Kidney: ? Visualized Rt Kidney: ? Visualized Bladder: ? Visualized Bowel: ? Visualized Extremities Lt Humerus: ?Visualized Rt Humerus: ?Visualized Lt Forearm: ?Visualized Rt Forearm: ?Visualized Lt Hand: ? Visualized Rt Hand: ? Visualized Lt Femur: ?Visualized Rt Femur: ?Visualized Lt Lower Leg: ?Visualized Rt Lower Leg: ?Visualized Lt Foot: ? Visualized Rt Foot: ? Visualized Other Umbilical Cord: ?3 vessel cord CERVIX UTERUS ADNEXA: Cervix Length: ?4.6 ??cm. Closed; No change with fundal pressure Left Ovary Size(cm) ? 2.7 ??x ?? 1.4 ?x ??1.0 ? Vol(ml): 2.0 Visualized Right Ovary Size(cm) ? 2.6 ??x ?? 2.0 ?x ??1.9 ? Vol(ml): 5.2 Visualized Procedure Note Crow Martines MD - 05/29/2017 OBSTETRICS REPORT (Signed Final 05/29/2017 01:53 pm) PATIENT INFO: ID #: [id number] : [birth year] (27 yrs) Name: PAM Lopez Visit Date: 05/29/2017 10:27 am ROBERT PERFORMED BY: Performed By: Ruth Ann Dixon RDMS Attending: Crow Martines MD Referred By: MONIQUE ORR MD Location: [place] SERVICE(S) PROVIDED: [facility] - Detailed Morphology - [id number] UOBTV - Viability - Cervical Length -Transvaginal - [id number] INDICATIONS: 19 weeks gestation of Z3A.19 INSULIN DEPENDENT GDM OB HISTORY: Blood B+ Height: 4'11 Weight (lb): 236 BMI: 47.66 Type: EVALUATION: Num Of Fetuses: 1 Heart 144 Rate(bpm): Cardiac Activity: Observed, normal rhythm Presentation: Cephalic Placenta: Complete Previa - Post/Left Lateral Ant P. Cord Insertion: Within Normal Limits Amniotic Fluid SHERI FV: Appropriate for gestational age --------- BIOMETRY: --------- BPD: 40.8 mm G.Age: 18w 2d OFD: 55.4 mm HC: 154.6 mm G.Age: 18w 3d AC: 131.2 mm G.Age: 18w 4d FL: 31.8 mm G.Age: 19w 6d HUM: 28.5 mm G.Age: 19w 1d CER: 19.0 mm G.Age: 18w 4d NFT: 3.2 mm NB: 4.1 mm LV: 4.4 mm CM: 4.3 mm CI: 73.6 % 70 - 86 FL/HC: 20.6 % 16.1 - 18.3 HC/AC: 1.18 1.09 - 1.39 FL/BPD: 77.9 % FL/AC: 24.2 % 20 - 24 Est. FW: 275 gm 0 lb 10 oz GESTATIONAL AGE: LMP: 19w 0d Date: 01/16/17 CHITRA: 10/23/17 U/S Today: 18w 6d CHITRA: 10/24/17 Best: 19w 0d Det. By: LMP (01/16/17) CHITRA: 10/23/17 TARGETED ANATOMY: Central Nervous System Calvarium/Cranial V.: Within Normal Limits Intracranial Arely: Within Normal Limits Cavum: Visualized Parenchyma: Within Normal Limits Lateral Ventricles: Within Normal Limits Choroid Plexus: Within Normal Limits Cereb./Vermis: Within Normal Limits Cisterna Magna: Within Normal Limits Midline Falx: Within Normal Limits Spine Cervical: Visualized Thoracic: Visualized Lumbar: Visualized Sacral: Visualized Shape/Curvature: Visualized Head/Neck Face: Visualized Lips: Within Normal Limits Neck: Visualized Nuchal Fold: Within Normal Limits Nasal Bone: Present Profile: Visualized Orbits/Eyes: Visualized Mandible: Visualized Maxilla: Visualized Thorax Thoracic Contour: Visualized Lungs: Visualized 4 Chamber View: Within Normal Limits Cardiac Motion: Normal Rhythm Rt Outflow Tract: Visualized Lt Outflow Tract: Visualized Aortic Arch: Visualized Ductal Arch: Visualized SVC: Visualized Cardiac Streator: Visualized Diaphragm: Visualized 3 Vessel View: Visualized IVC: Visualized Crossing: Visualized Abdomen Ventral Wall: Visualized Cord Insertion: Visualized Situs: Normal Stomach: Visualized Liver: Visualized Lt Kidney: Visualized Rt Kidney: Visualized Bladder: Visualized Bowel: Visualized Extremities Lt Humerus: Visualized Rt Humerus: Visualized Lt Forearm: Visualized Rt Forearm: Visualized Lt Hand: Visualized Rt Hand: Visualized Lt Femur: Visualized Rt Femur: Visualized Lt Lower Leg: Visualized Rt Lower Leg: Visualized Lt Foot: Visualized Rt Foot: Visualized Other Umbilical Cord: 3 vessel cord CERVIX UTERUS ADNEXA: Cervix Length: 4.6 cm. Closed; No change with fundal pressure Left Ovary Size(cm) 2.7 x 1.4 x 1.0 Vol(ml): 2.0 Visualized Right Ovary Size(cm) 2.6 x 2.0 x 1.9 Vol(ml): 5.2 Visualized IMPRESSION 2nd Trimester - Detailed Morphology - Summary Single intrauterine with a gestational age of 19w 0d based on LMP (01/16/17). Composite age based on the current ultrasound alone is 18w 6d. Current growth parameters are consistent with prior dating indicating normal growth. Amniotic fluid volume is appropriate for gestational age. Detailed anatomic evaluation was performed and no structural abnormalities are noted. Transvaginal ultrasound imaging performed to evaluate placental location. The placenta is centrally implanted over the internal cervical os, consistent with placenta previa. Visualization limited due to maternal body habitus. I viewed the images and agree with the above interpretation. Crow Martines MD Electronically Signed Final Report 05/29/2017 01:53 pm E Yeny Martines MD IMG US OB ORDERAB LES documented in this encounter Visit Diagnoses Diagnosis Gestational diabetes mellitus (GDM) in second trimester, gestational diabetes method of control unspecified Gestational diabetes mellitus (GDM) in second trimester, gestational diabetes method of control unspecified Gestational diabetes mellitus (GDM) in second trimester, gestational diabetes method of control unspecified documented in this encounter Care Teams Museum Or Zoo Director Relationship Specialty Start Date End Date Daly Souza MD [facility] [address] [facility] [place] [address] PCP - General 07/16/10 05/28/17 documented as of this encounter
--- OUTSIDE RECORDS SUMMARY | 2024-03-03 18:58 | XMS_ITS | Referral Summary ---
Author Organization [facility] Address [address] [place] [address] Care Team Providers Care Test Rider Name Role Phone Unknown, Provider Primary Care Provider [phone] Social History Tobacco Use Types Packs/Day Years Used Date Smoking Tobacco: Never Assessed Sex and Gender Information Value Date Recorded Sex Assigned at Not on file Gender Identity Not on file Sexual Orientation Not on file Plan of Treatment Not on file Care Teams Test Rider Relationship Specialty Start Date End Date Unknown, Provider, PCP - General 05/06/12
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
--- OUTSIDE RECORDS SUMMARY | 2024-03-03 18:58 | XMS_ITS | Clinical Summary ---
Author Organization [facility] Address [address] [place] [address] Care Team Providers Care Infection Prevention Specialist Name Role Phone Unknown, Provider Primary Care Provider [phone] Social History Tobacco Use Types Packs/Day Years Used Date Smoking Tobacco: Never Assessed Sex and Gender Information Value Date Recorded Sex Assigned at Not on file Gender Identity Not on file Sexual Orientation Not on file Plan of Treatment Health Maintenance Due Date Last Done Comments Hepatitis C Screen 1990 Hepatitis B Vaccine (1 of 3 - 19+ 3-dose series) 03/16 COVID-19 Vaccine (2022- season) 2023 Care Teams Infection Prevention Specialist Relationship Specialty Start Date End Date Unknown, Provider, PCP - General 05/06/12
--- OUTSIDE RECORDS SUMMARY | 2024-03-03 18:58 | XMS_ITS | Encounter Summary ---
Author Organization [facility] Address [facility] [place] [address] Care Team Providers Care Environmental Permitting Specialist Name Role Phone None Primary Care Provider Unavailabl e Reason for Visit * Auth/Cert Specialty Diagnoses / Procedures Referred By Jose Enrique velazco Referred To Contact Diagnoses Vasa previa Procedures JUDSON IPI Referral ID Status Reason Start Date Expiration Date Visits Re quested Visits Authorized [id number] 1 1 Encounter Details Date Type Department Care Team (Late st Contact Info) Description 07/28/2017 10:00 AM EST Routine Obstetrics [place] [address] Li Sepulveda MD [facility] DR OBSTETRICS & [place] [address] GA: 27w4d Social History Tobacco Use Types Packs/Day Years [...] Sign Reading Time Taken Comments Blood Pressure 125/62 07/28/2017 10:39 AM EST Pulse - - Temperature - - Respiratory Rate - - Oxygen Saturation - - Inhaled Oxygen Concentration - - Weight 104.8 kg (231 lb) 07/28/2017 10:39 AM EST Height - - Body Mass Index 46.66 06/04/2017 10:46 AM EDT documented in this encounter Progress Notes * Li Sepulveda MD - 07/28/2017 10:00 AM EST Has been well since her last visit. No bleeding or pain Is prepared to stay today for proximity to ICN and OR US: unchanged cervical vessel. The placenta is left lateral. There are vessels that run along the left lateral portion of the cervix next to the cervical os. Reports good blood glucose control Will admit to the BP documented in this encounter Plan of Treatment Not on file documented as of this encounter Visit Diagnoses Diagnosis Insulin controlled gestational diabetes mellitus (GDM) in second trimester Vasa previa, single or unspecified fetus documented in this encounter Care Teams Environmental Permitting Specialist Relationship Specialty Start Date End Date None None PCP - General 05/29/17 09/02/21 documented as of this encounter
--- OUTSIDE RECORDS SUMMARY | 2024-03-03 18:58 | XMS_ITS | Encounter Summary ---
Author Organization [facility] Address [address] [place] [address] Care Team Providers Care Biofuels Research Scientist Name Role Phone Unknown, Provider Primary Care Provider Encounter Details Date Type Department Care Team (Late st Contact Info) Description 04/23/2022 Lab Requisition [facility] Pathology & Laboratory Medicine - [facility] [address] [place] [address] Outr Resulting Lab, Provider Social History Tobacco [...] Procedure Name Priority Date/Time Associated Diagnosis Comments T3, TOTAL Routine 04/23/2022 9:56 EDT HOMOCYSTEINE Routine 04/23/2022 9:56 EDT documented in this encounter Results * T3, TOTAL (04/23/2022 9:56 EDT) T3, Total 156 97 - 169 ng/dL 04/23/2022 19:[address] [facility] Blood VENOUS BLOOD / Unknown 04/23/2022 9:56 EDT 04/23/2022 17:15 EDT Provider Outr Resulting Lab CHEMISTRY & BLOOD GAS ORDERABLES [facility] [address] [place] [address] * HOMOCYSTEINE (04/23/2022 9:56 EDT) Homocysteine 7.9 5.0 - 13.9 umol/L 04/25/2022 7:[address] [facility] Blood VENOUS BLOOD / Unknown 04/23/2022 9:56 EDT 04/23/2022 17:[address] [facility] - 04/25/2022 7:53 EDT Reference range may not apply to non-fasting samples. ??It is not recommended that EDTA plasma and serum from the same patient be used interchangeably. ??Serum concentrations have been observed to be up to 10% higher than EDTA plasma. Reference range may not apply to serum results. Provider Outr Resulting Lab CHEMISTRY & BLOOD GAS ORDERABLES [facility] [address] [place] [address] documented in this encounter Visit Diagnoses Not on filedocumented in this encounter Care Teams Biofuels Research Scientist Relationship Specialty Start Date End Date Unknown, Provider, PCP - General 05/06/12 documented as of this encounter
--- OUTSIDE RECORDS SUMMARY | 2024-03-03 18:58 | XMS_ITS | Encounter Summary ---
Author Organization [facility] Address [facility] [place] [address] Care Team Providers Care Intertype Operator Name Role Phone None Primary Care Provider Unavailabl e Encounter Details Date Type Department Care Team ([facility] st Contact Info) Description 07/05/2017 Telephone Obstetrics and Gynecology at [facility] [place] [address] Luis Rasmussen MD [facility] DR OBSTETRICS & [place] [address] Social History Tobacco Use Types Packs/Day Years Used Date Smoking Tobacco: Former Smokeless Tobacco: Never Comments Yes Sex and Gender Information Value Date Recorded Sex Assigned at Not on file Gender Identity Not on file Sexual Orientation Not on file documented as of this encounter Miscellaneous Notes * Telephone Encounter - Luis Rasmussen - 07/05/2017 11:28 PM EST 27 yo at 24w0d who is calling to report ctx and pressure for the past 1- 2 hours. She describes the pressure as on her lower back and had a ctx that took her breath away just before calling. She reports she's had a lot of stress this weekend and she stood a lot on her feet today. Denies vaginal bleeding, LOF. Baby is moving well. She reports she has drank lots of water today. Discussed that these are likely Shashi-Aguilar type ctx. Encouraged continued PO fluid intake and trying a warm bath to see if this helps ctx to go away. If they persist or worsen, she will give us a call back. LUIS RASMUSSEN MD PGY4 07/05/2017 documented in this encounter Plan of Treatment Not on file documented as of this encounter Visit Diagnoses Not on filedocumented in this encounter Care Teams Intertype Operator Relationship Specialty Start Date End Date None None PCP - General 05/29/17 09/02/21 documented as of this encounter
--- OUTSIDE RECORDS SUMMARY | 2024-03-03 18:58 | XMS_ITS | Encounter Summary ---
Author Organization [facility] Address [facility] [place] [address] Care Team Providers Care Lumber Bearer Name Role Phone None Primary Care Provider Unavailabl e Encounter Details Date Type Department Care Team (Late st Contact Info) Description 07/06/2017 Telephone Obstetrics and Gynecology at [facility] [place] [address] Luis Rasmussen MD [facility] DR OBSTETRICS [place] [address] Social History Tobacco Use Types Packs/Day Years Used Date Smoking Tobacco: Former Smokeless Tobacco: Never Comments Yes Sex and Gender Information Value Date Recorded Sex Assigned at Not on file Gender Identity Not on file Sexual Orientation Not on file documented as of this encounter Miscellaneous Notes * Telephone Encounter - Luis Rasmussen - 07/06/2017 6:29 PM EST 27 yo at 24w1d. complicated by GDMA2, on insulin. She is still having some cramping and pressure, but no LOF/VB. She states she has been bad about checking her sugars lately. She did so today, 2 hours after her meal and it was 98. Offered reassurance, normal 2 hours post prandial <120. She is wondering if her BS may have something to do with the cramping she has been having. She states she is having irregular cramping. Her last pain in her abdomen was about 45 minutes ago, but she had 2 in the 30 minutes prior to that. Offered reassurance, but gave precautions to return call if things worsen. LUIS RASMUSSEN MD PGY4 07/06/2017 documented in this encounter Plan of Treatment Not on file documented as of this encounter Visit Diagnoses Not on filedocumented in this encounter Care Teams Lumber Bearer Relationship Specialty Start Date End Date None None PCP - General 05/29/17 09/02/21 documented as of this encounter
--- OUTSIDE RECORDS SUMMARY | 2024-03-03 18:58 | XMS_ITS | Encounter Summary ---
Author Organization [facility] Address [facility] [place] [address] Care Team Providers Care Crop Production Advisor Name Role Phone None Primary Care Provider Unavailabl e Encounter Details Date Type Department Care Team (Latest Contact Info) Description 07/09/2017 9:39 AM EST - 07/09/2017 11:59 PM EST Hospital Encounter [place] [phone] Crow Martines MD [facility] DR OBSTETRICS & [place] [address] Insulin controlled gestational diabetes mellitus (GDM) in second trimester; Placenta previa centralis in second trimester; Previous section x 2 Discharge Disposition: Home Social History Tobacco Use [...] 20 tablet 3 09/14/2017 10/27/2017 vitamin with qohluswy-No-Ksud-FA Tablet Take 1 tablet by mouth daily. [...] Diagnosis Comments US OB FOLLOW UP Routine 07/09/2017 10:49 AM EST Insulin controlled gestational diabetes mellitus (GDM) in second trimester Placenta previa centralis in second trimester Previous section x 2 documented in this encounter Results * US OB Follow Up Evaluation (07/09/2017 10:49 AM EST) Anatomical Region Laterality Modality Pelvis, Abdomen Ultrasound 07/09/2017 10:0 0 AM EST Impressions 07/09/2017 11:17 AM EST 2nd Trimester Summary Single intrauterine with a gestational age of 24w 6d based on LMP ??(01/16/17). Composite age based on the current ultrasound alone is 24w 0d. Amniotic fluid volume is appropriate for gestational age. Anatomical survey is limited due to the late gestational age. ??No structural abnormalities visualized. Transvaginal ultrasound imaging performed to evaluate placental location. ??The posterior left lateral placenta is low-lying, measuring 1.5 cm from the internal cervical os. ??However, a placental artery is visualized adjacent (left) of the internal cervical os (0.9 cm) concerning for VASA PREVIA. ? Lolita Nick MD Electronically Signed Corrected Final Report ??07/09/2017 11:19 am Narrative 07/09/2017 11:17 AM EST OBSTETRICS REPORT ? (Corrected Final 07/09/2017 11:19 ?am) PATIENT INFO: ID #: ? [id number] ?: ??[birth year] (27 yrs) Name: ? PAM Lopez ?Visit Date: 07/09/2017 10:00 am ? ROBERT PERFORMED BY: Performed By: ? Ruth Ann Dixon RDMS Attending: ?Sandoval TAY, Lolita Garcia Referred By: ?Crow MARTINES Location: ? [facility] SERVICE(S) PROVIDED: ??UOBFOL - Efw - Growth - Hernandez - [id number] ? [id number] ??UOBTV - Viability - Cervical Length -Transvaginal - ?? [id number] ??[id number] INDICATIONS: ??24 weeks gestation of ?Z3A.24 ??placenta previa; h/o CSx2; GDM TECHNIQUE/SCAN QUALITY: Technique: ?? Transducer ID#: 1 OB HISTORY: Blood ?B+ ?Height: ??4'11 ?? Weight (lb): 236 ? BMI: ??47.66 Type: EVALUATION: Num Of Fetuses: ? 1 Heart ? 161 Rate(bpm): Cardiac Activity: ?? Observed, normal rhythm Presentation: ? Breech, footling Placenta: ? Posterior left lateral Low lying (<2 cm) P. Cord Insertion: ??Within Normal Limits Amniotic Fluid SHERI FV: ?Appropriate for gestational age Comment: ?Placental artery traverses to the left lateral aspect of the ? Posterior Left Lateral placenta. VASA PREVIA --------- BIOMETRY: --------- BPD: ?54.7 ??mm ? G.Age: ?? 22w 5d OFD: ?77.4 ??mm HC: ?213.4 ??mm ? G.Age: ?? 23w 3d AC: ?196.8 ??mm ? G.Age: ?? 24w 3d FL: ? 45.9 ??mm ? G.Age: ?? 25w 2d HUM: ?44.6 ??mm ? G.Age: ?? 26w 3d CER: ?37.3 ??mm ? G.Age: ?? 32w 1d LV: ?3.2 ??mm CM: ?4.7 ??mm CI: ?70.7 ??% ? 70 - 86 FL/HC: ? 21.5 ??% ? 18.7 - 20.3 HC/AC: ? 1.08 ?1.04 - 1.22 FL/BPD: ?83.9 ??% ? 71 - 87 FL/AC: ? 23.3 ??% ? 20 - 24 Est. FW: ? 702 ?? gm ? 1 lb 9 oz GESTATIONAL AGE: LMP: ? 24w 6d ?Date: ??01/16/17 ? CHITRA: ?? 10/23/17 U/S Today: ? 24w 0d ?CHITRA: ?? 10/29/17 Best: ?24w 6d ?? Det. By: ??LMP ??(01/16/17) ?CHITRA: ?? 10/23/17 -------- ANATOMY: -------- Cranium: ? Limited views Cavum: ? Visualized Ventricles: ?Within Normal Limits Choroid Plexus: ?Not visualized due to late gestational a Cerebellum: ?Visualized Posterior Fossa: ? Limited views Nuchal Fold: ? Not evaluated at this gestational age. Face: ?Limited views Heart: ? Limited Views RVOT: ?Limited views LVOT: ?Limited views Stomach: ? Visualized Abdomen: ? Limited Views Abdominal Wall: ?Not visualized due to late gestational a Cord Vessels: ?3-vessels- WNL Kidneys: ? Visualized Bladder: ? Limited Views Spine: ? Limited views Upper Extremities: ? Limited views Lower Extremities: ? Limited views CERVIX UTERUS ADNEXA: Cervix Length: ?4.7 ??cm. Closed; No change with fundal pressure Left Ovary Not visualized Right Ovary Not visualized Procedure Note Lolita Nick MD - 07/09/2017 OBSTETRICS REPORT (Corrected Final 07/09/2017 11:19 am) PATIENT INFO: ID #: [id number] : [birth year] (27 yrs) Name: PAM Lopez Visit Date: 07/09/2017 10:00 am ROBERT PERFORMED BY: Performed By: Ruth Ann Dixon RDMS Attending: Lolita Nick MD Referred By: Crow LAIRDHIZA Location: [facility] SERVICE(S) PROVIDED: UOBFOL - Efw - Growth - Hernandez - [id number] UOBTV - Viability - Cervical Length -Transvaginal - [id number] INDICATIONS: 24 weeks gestation of Z3A.24 placenta previa; h/o CSx2; GDM TECHNIQUE/SCAN QUALITY: Technique: Transducer ID#: 1 OB HISTORY: Blood B+ Height: 4'11 Weight (lb): 236 BMI: 47.66 Type: EVALUATION: Num Of Fetuses: 1 Heart 161 Rate(bpm): Cardiac Activity: Observed, normal rhythm Presentation: Breech, footling Placenta: Posterior left lateral Low lying (<2 cm) P. Cord Insertion: Within Normal Limits Amniotic Fluid SHERI FV: Appropriate for gestational age Comment: Placental artery traverses to the left lateral aspect ofthe Posterior Left Lateral placenta. VASA PREVIA --------- BIOMETRY: --------- BPD: 54.7 mm G.Age: 22w 5d OFD: 77.4 mm HC: 213.4 mm G.Age: 23w 3d AC: 196.8 mm G.Age: 24w 3d FL: 45.9 mm G.Age: 25w 2d HUM: 44.6 mm G.Age: 26w 3d CER: 37.3 mm G.Age: 32w 1d LV: 3.2 mm CM: 4.7 mm CI: 70.7 % 70 - 86 FL/HC: 21.5 % 18.7 - 20.3 HC/AC: 1.08 1.04 - 1.22 FL/BPD: 83.9 % 71 - 87 FL/AC: 23.3 % 20 - 24 Est. FW: 702 gm 1 lb 9 oz GESTATIONAL AGE: LMP: 24w 6d Date: 01/16/17 CHITRA: 10/23/17 U/S Today: 24w 0d CHITRA: 10/29/17 Best: 24w 6d Det. By: LMP (01/16/17) CHITRA: 10/23/17 -------- ANATOMY: -------- Cranium: Limited views Cavum: Visualized Ventricles: Within Normal Limits Choroid Plexus: Not visualized due to late gestational a Cerebellum: Visualized Posterior Fossa: Limited views Nuchal Fold: Not evaluated at this gestational age. Face: Limited views Heart: Limited Views RVOT: Limited views LVOT: Limited views Stomach: Visualized Abdomen: Limited Views Abdominal Wall: Not visualized due to late gestational a Cord Vessels: 3-vessels- WNL Kidneys: Visualized Bladder: Limited Views Spine: Limited views Upper Extremities: Limited views Lower Extremities: Limited views CERVIX UTERUS ADNEXA: Cervix Length: 4.7 cm. Closed; No change with fundal pressure Left Ovary Not visualized Right Ovary Not visualized IMPRESSION 2nd Trimester Summary Single intrauterine with a gestational age of 24w 6d based on LMP (01/16/17). Composite age based on the current ultrasound alone is 24w 0d. Amniotic fluid volume is appropriate for gestational age. Anatomical survey is limited due to the late gestational age. No structural abnormalities visualized. Transvaginal ultrasound imaging performed to evaluate placental location. The posterior left lateral placenta is low-lying, measuring 1.5 cm from the internal cervical os. However, a placental artery is visualized adjacent (left) of the internal cervical os (0.9 cm) concerning for VASA PREVIA. Lolita Nick MD Electronically Signed Corrected Final Report 07/09/2017 11:19 am E Yeny Martines MD IMG OB ORDERAB LES documented in this encounter Visit Diagnoses Diagnosis Insulin controlled gestational diabetes mellitus (GDM) in second trimester Placenta previa centralis in second trimester Previous section x 2 Other postprocedural status documented in this encounter Care Teams Crop Production Advisor Relationship Specialty Start Date End Date None None PCP - General 05/29/17 09/02/21 documented as of this encounter
--- OUTSIDE RECORDS SUMMARY | 2024-03-03 18:58 | XMS_ITS | Encounter Summary ---
Author Organization [facility] Address [facility] [place] [address] Care Team Providers Care Ob Scrub Tech Name Role Phone None Primary Care Provider Unavailabl e Encounter Details Date Type Department Care Team (Latest Contact Info) Description 05/29/2017 9:59 AM EDT - 05/29/2017 11:59 PM EDT Hospital [place] [phone] Crow Martines MD [facility] DR OBSTETRICS & GYNECOLOGY [place] [id number] Gestational diabetes mellitus (GDM) in second trimester, [...] Sig Dispensed Refills Start Date End Date vitamin with iksdlxeg-Ux-Hlaw-FA Tablet Take 1 tablet by mouth daily. [...] Priority Date/Time Associated Diagnosis Comments US OB DETAILED MORPHOLOGY Routine 05/29/2017 11:29 AM EDT Gestational diabetes mellitus (GDM) in second trimester, gestational diabetes method of control unspecified documented in this encounter Results * US OB Detailed Morphology (05/29/2017 11:29 [...] 01:53 pm) PATIENT INFO: ID #: ? [id number] ?: ??[birth year] (27 yrs) Name: ? PAM Lopez ?Visit Date: 05/29/2017 10:27 am ? ROBERT PERFORMED BY: Performed By: ? Ruth Ann Dixon RDMS Attending: ?Conrad TAY, E ??Yeny Referred By: ?MONIQUE ORR MD Location: ? [facility] SERVICE(S) PROVIDED: ??[facility] - Detailed Morphology - [id number] ? [id number] ??UOBTV - Viability - Cervical Length -Transvaginal - ?? [id number] ??[id number] INDICATIONS: ??19 weeks gestation of ?Z3A.19 ??INSULIN [...] ?77.9 ??% FL/AC: ? 24.2 ??% ? 20 - 24 Est. FW: ? 275 ?? gm ?? [...] Arch: ? Visualized SVC: ? Visualized Cardiac [place]: ?Visualized Diaphragm: ? Visualized 3 Vessel View: [...] 05/29/2017 01:53 pm) PATIENT INFO: ID #: [id number] : [birth year] (27 yrs) Name: PAM Lopez Visit Date: 05/29/2017 10:27 am ROBERT PERFORMED BY: Performed By: Ruth Ann iDxon RDMS Attending: Crow Martines MD Referred By: MONIQUE ORR MD Location: [facility] SERVICE(S) PROVIDED: [facility] - Detailed Morphology - [id number] UOBTV - Viability - Cervical Length -Transvaginal - [id number] INDICATIONS: 19 weeks gestation of Z3A.19 INSULIN [...] Visualized Ductal Arch: Visualized SVC: Visualized Cardiac Dover: Visualized Diaphragm: Visualized 3 Vessel View: Visualized [...] unspecified documented in this encounter Care Teams Ob Scrub Tech Relationship Specialty Start Date End Date None None PCP - General 05/29/17 09/02/21 documented as of this encounter
--- OUTSIDE RECORDS SUMMARY | 2024-03-03 18:58 | XMS_ITS | Encounter Summary ---
Author Organization [facility] Address [facility] [place] [address] Care Team Providers Care Jewelry Polisher Name Role Phone None Primary Care Provider Unavailabl e Reason for Visit * Consultation (Routine) - Closed Specialty Diagnoses / Procedures Referred By Jose Enrique t Referred To Contact Obstetrics and Gynecology Diagnoses INSULIN DEP GDM Procedures U/S Isela Hutton MD [address] [place] [address] [facility] [employer] [address] [place] [address] Referral ID Status Reason Start Date Expiration Date Visits Re quested Visits Authorized [id number] Closed 04/17/2017 04/17/2018 1 1 Encounter Details Date Type Department Care Team (Latest Contact Info) Description 05/29/2017 10:45 AM EDT Procedure visit Obstetrics [place] [address] Crow Martines MD [facility] DR OBSTETRICS & [place] [address] Insulin controlled gestational diabetes mellitus (GDM) in second trimester; Placenta previa centralis in second trimester; Previous section x 2 Social History Tobacco Use Types Packs/Day Years Used Date Smoking Tobacco: Every Day Smokeless Tobacco: Never Comments Yes Sex and Gender Information Value Date Recorded Sex Assigned at Not on file Gender Identity Not on file Sexual Orientation Not on file documented as of this encounter Progress Notes * Crow Martines MD - 05/29/2017 10:45 AM EDT Diagnosis/Maternal Medicine Consult Note Pam Lake is a 27 y.o. year old female who is at 18w5d gestation. She is seen in consultation at the request of Isela Blunt MD for evaluation of anatomy due to gestational diabetes diagnosed at 7 weeks gestation. The referral sheet also indicates that the patient plans to transfer her care to [facility] for the duration of the . She was seen today for maternal- medicine consultation and ultrasound evaluation. Review of Systems Constitutional:feels well Movement: normal Contractions: none Leaking: None Bleeding: None Patient Active Problem List Diagnosis Date Noted ??? Placenta previa centralis in second trimester 05/29/2017 ??? Insulin controlled gestational diabetes mellitus (GDM): diagnosed at 7 weeks gestation 05/29/2017 ??? Previous section x 2 05/29/2017 Past Medical History: Diagnosis Date ??? Asthma ??? Diabetes mellitus gestational diabetes insulin controlled and diet Past Surgical History: Procedure Laterality Date ??? SECTION 2008 and 2010 No family history on file. Social History Occupational History ??? Not on file. Social History Main Topics ??? Smoking status: Current Every Day Smoker ??? Smokeless tobacco: Never Used ??? Alcohol use Not on file ??? Drug use: Not on file ??? Sexual activity: Not on file OB History Para Term AB Living 5 2 2 0 2 2 SAB TAB Ectopic Multiple Live Births 1 1 # Outc Date GA Lbr Gildardo/2nd Wgt Sex Del Anes PTL Lv 1 Term 2 SAB 3 TAB 4 Term 5 Current Current Outpatient Prescriptions Medication Sig Dispense Refill ??? vitamin with ibtnjpqh-Wt-Fkwl-FA Tablet Take 1 tablet by mouth daily. ??? insulin NPH (HUMULIN N;NOVOLIN N) Insulin Pen Inject 100 Units subcutaneously nightly. ??? blood sugar diagnostic strips Strip 1 each by Other route 4 times daily. Use as instructed ??? lancets Misc 1 each by Misc.(Non-Drug; Combo Route) route 4 times daily. ??? ondansetron (ZOFRAN-ODT) 4 mg Tablet, Rapid Dissolve Take 8 mg by mouth every 8 hours as neededfor Nausea. No current facility-administered medications for this visit. No Known Allergies Ultrasound Date: 05/29/2017 Amniotic fluid volume normal Presentation cephalic Placenta previa centralis Growth appropriate for gestational age anatomy appears normal; somewhat limited by habitus Physical Exam There were no vitals taken for this visit. General: alert, well appearing, in no apparent distress, oriented to person, place and time, overweight HEENT: normocephalic, atraumatic Abdomen: Soft, nontender Extremities: no edema Neurologic:alert, oriented, normal speech, no focal findings or movement disorder noted Psychiatric: Affect is Appropriate. Assessment and Recommendations: 27 y.o. year old female at 18w5d weeks gestation, referred for counseling regarding diabetes in . Placenta Previa: I explained the implications of a placenta previa including hemorrhage, long hospitalization, premature , risks of section, and possibility of hysterectomy. I explained that delivery generally is at 37 weeks. I recommend pelvic rest. At this point in the conversation Ms. Lake started yelling, primarily at her partner, but also directed at me, with multiple expletives. Apparently there is some question of whether or not the FOB has been monogamous in their relationship. The discussion regarding pelvic rest due to risk of bleeding pushed this issue to the forefront. Ms. Lake also stated multiple times I would rather than have you take my u terus. She then proceeded to shut herself in the bathroom, wailing and punching/kicking the wall. I went to get our nurse, Jayshree, for the remainder of the visit. Ms. Cortes allowed me to enter the bathroom, and was able to stop crying. We were unable to complete the visit and consultation regarding diabetes in . She does have a echocardiogram scheduled 06/19. I will arrange to have an appointment in [facility] that day as well. We will contact her in the interim to review her glycemic control. I phoned the referring provider's office, and spoke with Dr. Isela Blunt regarding the above interaction. Dr. Blunt states she had a similar reaction to being told of the diagnosis of GDM at 7 weeks. I appreciate the opportunity to be involved in this patients care, and am available if further questions should arise. Crow MARTINES MD 05/29/2017 Cc: Isela Blunt MD [address] [place] [phone] , with copy of ultrasound report documented in this encounter Plan of Treatment Not on file documented as of this encounter Procedures Procedure Name Priority Date/Time Associated Diagnosis Comments URINE CULTURE Routine 05/29/2017 10:45 AM EDT documented in this encounter Results * US [...] 11:19 ?am) PATIENT INFO: ID #: ? [id number] ?: ??[birth year] (27 yrs) Name: ? PAM Lopez ?Visit Date: 07/09/2017 10:00 am ? ROBERT PERFORMED BY: Performed By: ? Ruth Ann Dixon RDMS Attending: ?Sandoval TAY, Lolita Garcia Referred By: ?Crow MARTINES Location: ? [facility] SERVICE(S) PROVIDED: ??UOBFOL - Efw - Growth - Hernandez - [id number] ? [id number] ??UOBTV - Viability - Cervical Length -Transvaginal - ?? [id number] ??[id number] INDICATIONS: ??24 weeks gestation of ?Z3A.24 ??placenta [...] 07/09/2017 11:19 am) PATIENT INFO: ID #: [id number] : [birth year] (27 yrs) Name: PAM Lopez Visit Date: 07/09/2017 10:00 am ROBERT PERFORMED BY: Performed By: Ruth Ann Dixon RDMS Attending: Lolita Nick MD Referred By: Crow MARTINES Location: [facility] SERVICE(S) PROVIDED: UOBFOL - Efw - Growth - Hernandez - [id number] UOBTV - Viability - Cervical Length -Transvaginal - [id number] INDICATIONS: 24 weeks gestation of Z3A.24 placenta [...] GESTATIONAL AGE: LMP: 24w 6d Date: 01/16/17 CHITAR: 03/02/18 U/S Today: 24w 0d CHITRA: 10/29/17 Best: [...] 07/09/2017 11:19 am E Yeny Martines MD IM US OB ORDERAB LES * (ABNORMAL) Urine culture (05/29/2017 10:45 AM EDT) Urine Culture 1,000-9,000 cfu/ml Gram Positive organisms , probable contaminant(A ) [facility] Urine specimen obtained by clean catch procedure (specimen) 05/29/2017 10:45 AM EDT 05/29/2017 5:20 PM EDT Narrative Resulting Agency Comment Spec In Lab Jayshree Whatley RN MICROBIOLOGY - G ENERAL ORDERABLES [facility] [place] [address] documented in this encounter Visit Diagnoses Diagnosis Insulin controlled gestational diabetes mellitus (GDM) in second trimester Placenta previa centralis in second trimester Previous section x 2 Other postprocedural status Insulin controlled gestational diabetes mellitus (GDM) in second trimester Placenta previa centralis in second trimester Previous section x 2 Other postprocedural status documented in this encounter Care Teams Jewelry Polisher Relationship Specialty Start Date End Date None None PCP - General 05/29/17 09/02/21 documented as of this encounter
--- OUTSIDE RECORDS SUMMARY | 2024-03-03 18:58 | XMS_ITS | Encounter Summary ---
Author Organization [facility] Address [address] [place] [address] Care Team Providers Care Mold Washer Name Role Phone Unknown, Provider Primary Care Provider [phone] Encounter Details Date Type Department Care Team (Late st Contact Info) Description 09/06/2015 Results Only [facility] [place] [phone] Monique Blunt MD [address] [place] [address] Social History Tobacco Use Types Packs/Day Years [...] Diagnosis Comments PAP TEST- RESULT ONLY Routine 09/06/2015 0:00 EST documented in this encounter Results * PAP TEST- RESULT ONLY (09/06/2015 0:00 EST) Pathology Report: CYTOPATHOLOGY REPORT Reports generated via electronic interface contain original data; however they are lacking the format of the original report. Caution should be taken when reading/interpreti ng unformatted reports. Name: ? PAM JONES ? Accession #: ? [id number] : ? 1990 (Age: 25) ??F ?Collect Date: ? 09/06/2015 Location: ? [facility] ? Receive Date: ? 09/10/2015 Provider: ?MONIQUE BLUNT MD Copy to: ?ROLA PATEL MD ? Specimen/Source: ?Pap Test, Cervix/Endocervix, ThinPrep Imaging System with manual evaluation Last Menstrual Period: ? Other: ? Additional clinical information: Last Pap in 2009 @19 Years of Age - Negative ? SPECIMEN ADEQUACY ? Satisfactory for Evaluation - transformation zone component present GENERAL CATEGORIZATION ? Negative for Intraepithelial Lesion or Malignancy INTERPRETATION ? Reactive cellular changes associated with inflammation present (includes repair). Shift in tamiko present suggestive of bacterial vaginosis. ? Document reviewed and electronically signed by: ? FLAQUITA DARBY MD [facility] ? Report Date: ??09/14/2015 13:52 End of Report [facility] 09/06/2015 09/10/2015 Monique Blunt MD PATHOLOGY ORDERABLES Performing Organization Address City/State/[facility] Co de Phone Number [facility] [address] [place] [address] documented in this encounter Visit Diagnoses Not on filedocumented in this encounter Care Teams Mold Washer Relationship Specialty Start Date End Date Unknown, Provider, PCP - General 05/06/12 documented as of this encounter
[2024-03-03 19:28] VITALS: BP 147/92; PULSE 97; RESP 14; O2SAT 97
== END 2024-03-03 19:28 | disposition home or self-care (01) ==
PROVIDERS: Emergency Provider Student in an Organized Health Care Education/Training Program; PCP Family Medicine
DX: S02.2XXA Fracture of nasal bones, initial encounter for closed fracture (principal); S06.0XAA Concussion with loss of consciousness status unknown, initial encounter; V47.5XXA Car driver injured in collision with fixed or stationary object in traffic accident, initial encounter; R51.9 Headache, unspecified; H53.8 Other visual disturbances
CPT/HCPCS: 99284; 70450; 70486; 72125; 99283

== ENCOUNTER 2024-08-27 00:27 | Emergency (ER) | payer MEDICAID, SELFPAY ==
[2024-08-27 00:30] VITALS: BP 158/116; PULSE 125; RESP 19; TEMP 36.4; O2SAT 98
--- OUTSIDE RECORDS SUMMARY | 2024-08-27 00:52 | XMS_ITS | Encounter Summary ---
Author Organization [facility] [place] [address] Care Team Providers Care Electron Gun Assembler Name Role Phone None Primary Care Provider Unavailabl e Reason for Visit * Reason Comments Care Encounter Details Date Type Department Care Team (Latest Contact Info) Description 10/27/2017 2:15 PM EST Visit Obstetrics [place] [address] iL Sepulveda MD [facility] [address] OBSTETRICS [place] [address] History of gestational diabetes; follow-up Social History [...] REMOVE Please contact the Blood Bank at [phone] for questions. Objective: BP 118/70 Pulse 93 [...] follow-up documented in this encounter Care Teams Electron Gun Assembler Relationship Specialty Start Date End Date None None PCP - General 05/29/17 09/02/21 documented as of this encounter
--- OUTSIDE RECORDS SUMMARY | 2024-08-27 00:52 | XMS_ITS | Encounter Summary ---
Author Organization [facility] [place] [address] Care Team Providers Care Linecasting Machine Keyboard Operator Name Role Phone None Primary Care Provider Unavailabl e Encounter Details Date Type Department Care Team ([facility] st Contact Info) Description 03/29/2021 2:00 PM EDT Notes Only General Surgery at [facility] [place] [address] Social History Tobacco Use Types Packs/Day Years [...] 03/29/2021 2:00 PM EDT Patient attended the [facility] Intro to Bariatric [facility] for [facility] on 03/29/2021 documented in this encounter Plan of Treatment Not on file documented as of this encounter Visit Diagnoses Not on filedocumented in this encounter Care Teams Linecasting Machine Keyboard Operator Relationship Specialty Start Date End Date None None PCP - General 05/29/17 09/02/21 documented as of this encounter
--- OUTSIDE RECORDS SUMMARY | 2024-08-27 00:52 | XMS_ITS | Clinical Summary ---
Author Organization [facility] [place] [address] Care Team Providers Care Adjunct Nursing Faculty Name Role Phone Sima Sanchez APRN Primary Care Provider [phone] Allergies Active Allergy Reactions Criticality Noted Date Comments Red Blood Cells Other (See Comments) High 09/11/2017 Antibodies-Difficult to Crossmatch DO NOT REMOVE Please contact the Blood Bank at [phone] for questions. Medications No known medications Active [...] Immunizations Name Administration Dates Next Due Tdap (Adacel, Boostrix) 08/03/2017 Family History Medical History Relation Comments [...] test 2021 PAP Smear 2021 Covid-19 Vaccine ( - season) 2024 Influenza (Flu) vaccine (1 o f 1 - Influenza standard series) 04/24/2024 Tetanus/Diphtheria/Pertussis Vaccines (2 - Td or Tdap) 08/03/2027 08/03/2017 Advance Directives * Full Code (Latest Code Status on File) Date Activated Date Inactivated Comments 07/28/2017 5:51 PM 09/15/2017 8:45 PM Question Answer Comments Does patient have capacity to make decision: Yes Care Teams Adjunct Nursing Faculty Relationship Specialty Start Date End Date Sima Sanchez, DERRICK BOAT CAPTAIN PCP - General Family Medicine 09/03/21
--- OUTSIDE RECORDS SUMMARY | 2024-08-27 00:52 | XMS_ITS | Encounter Summary ---
Author Organization [facility] Adithya [place]ifer [place] [address] Care Team Providers Care Worm Picker Name Role Phone None Primary Care Provider Unavailabl e Encounter Details Date Type Department Care Team ([facility] st Contact Info) Description 01/27/2019 7:10 PM EDT Ancillary Procedure Radiology Library at [facility] [address] [place] [address] Reji Perez APRN Social History Tobacco Use Types Packs/Day Years [...] MR Spine (01/27/2019 7:08 PM EDT) Narrative RAD - 01/27/2019 7:08 PM EDT This exam is auto-finalizing. It's purpose is for storage only. Reji Perez APRN IMG FILM LIBRARY ORDERABLES [place]NALISE [place] documented in this encounter Visit Diagnoses Not on filedocumented in this encounter Care Teams Worm Picker Relationship Specialty Start Date End Date None None PCP - General 05/29/17 09/02/21 documented as of this encounter
--- OUTSIDE RECORDS SUMMARY | 2024-08-27 00:52 | XMS_ITS | Encounter Summary ---
Author Organization [facility] [address] Care Team Providers Care Rn Clinical Quality Name Role Phone None Primary Care Provider Unavailabl e Encounter Details Date Type Department Care Team ([facility] st Contact Info) Description 12/02/2018 Ancillary Procedure Radiology Library at [facility] [place] [place] [address] Reji Perez APRN Social History Tobacco Use [...] DX Spine (12/02/2018 12:00 AM EDT) Narrative RAD - 01/27/2019 7:07 PM EDT This exam is auto-finalizing. It's purpose is for storage only. Reji Perez APRN IMG FILM LIBRARY ORDERABLES [facility] [place] documented in this encounter Visit Diagnoses Not on filedocumented in this encounter Care Teams Rn Clinical Quality Relationship Specialty Start Date End Date None None PCP - General 05/29/17 09/02/21 documented as of this encounter
--- OUTSIDE RECORDS SUMMARY | 2024-08-27 00:52 | XMS_ITS | Encounter Summary ---
Author Organization [facility] [place] [address] Care Team Providers Care Anthropology Lecturer Name Role Phone None Primary Care Provider Unavailabl e Encounter Details Date Type Department Care Team ([facility] st Contact Info) Description 09/30/2017 Telephone Obst[address]s [address] [facility] [address] [facility] [place] [address] Swapna Crawford RN Social History Tobacco Use [...] on filedocumented in this encounter Care Teams Anthropology Lecturer Relationship Specialty Start Date End Date None None PCP - General 05/29/17 09/02/21 documented as of this encounter
--- OUTSIDE RECORDS SUMMARY | 2024-08-27 00:52 | XMS_ITS | Encounter Summary ---
Author Organization [facility] [place] [address] Care Team Providers Care Pen Ruler Operator Name Role Phone None Primary Care [...] encounter Miscellaneous Notes * Note - Denise Motneiro RN - 09/21/2017 12:20 PM EST This [...] Continue to follow. Denise Monteiro RN, IBCLC [facility] Services documented in this encounter Plan of Treatment Not on file documented as of this encounter Visit Diagnoses Not on filedocumented in this encounter Care Teams Pen Ruler Operator Relationship Specialty Start Date End Date None None PCP - General 05/29/17 09/02/21 documented as of this encounter
[2024-08-27] MEDS: Acetaminophen 500 MG TAB 1000 MG PO (00:53)
[2024-08-27] MEDS: Ibuprofen 600 MG TAB PO (00:53)
[2024-08-27] MEDS: Sulfameth/Trimeth DS TAB 1 TAB PO (00:54)
[2024-08-27] MEDS: Cephalexin 500 MG CAP PO (00:54)
--- OUTSIDE RECORDS SUMMARY | 2024-08-27 00:54 | XMS_ITS | Encounter Summary ---
Author Organization [facility] Address [facility] [place] [address] Care Team Providers Care Oil Exploration Engineer Name Role Phone None Primary Care Provider Unavailabl e Reason for Visit * Auth/Cert Specialty Diagnoses / Procedures Referred By Jose Enrique velazco Referred To Contact Diagnoses Vasa previa Procedures JUDSON IPI Referral ID Status Reason Start Date Expiration Date Visits Re quested Visits Authorized [id number] 1 1 Encounter Details Date Type Department Care Team (Latest Contact Info) Description 07/28/2017 2:52 PM EST - 09/15/2017 6:34 PM EST [place] [address] Li Sepulveda MD [facility] [address] OBSTETRICS [place] [address] Arturo Waterman MD [facility] [address] OBSTET[place] [address] Vasa previa, single or unspecified fetus Discharge [...] Pam Lake Patient Age: 27 y.o. Language: Citizen Of [place] Race: Black or Ethnicity: OR Admit date: 07/28/2017 Discharge date and time: 09/15/2017 4:11 PM Attending Physician: Arturo Waterman MD Discharge Physician: Chely Sin MD Care Provider: Dr. Isela Blunt Referring Hospital: [facility] Follow-up Recommendations for Providers: -- Follow up with MFM provider on 09/17/17 -- 2 week depression screen -- 6 week visit with 2hr GTT -- Final pathology Inpatient Provider Contact Information: [facility] INDUSTRIAL SEAMSTRESS Department, Discharge Diagnoses (Hospital Problems) and Secondary [...] received a course of steroids (complete on /03/09). testing with daily NST was consistently reassuring. [...] was given a rescue course of steroids [id number] (complete on 08/20). Insulin was titrated up [...] within normal limits. She was discharged to [facility] in good condition and good spirits on [...] Information for the patient's : Michele Lake [[id number]] INFORMATION Baby Jess Lake 09/11/2017 11:58 AM by Lower Segment Transverse Sex: female Gestational Age: 34w0d Measurements: Weight: 4 lb 7.8 oz (2035 g) APGARS One Minute Five Minutes Ten Minutes Totals: 4 7 9 EBL: 2500cc Vital signs at Discharge: BP: 110/64, Heart Rate: 93, Temp: 36.5 ??C (97.7 ??F), Resp: 18, BMI (Calculated): 46.57 Height: 149.9 cm (4' 11) (09/10/171731) Weight: 104.6 kg (230 lb 9.6 oz) [...] REMOVE Please contact the Blood Bank at [phone] for questions. Immunizations Given this Hospitalization: Immunization [...] Nausea. 8 mg Refills: 0 vitamin with fycyqmax-My-Quvb-FA Tab Take 1 tablet by mouth daily. [...] Depression Contact Numbers: If you see an gravel hauler call: [phone] 9 am - 5 pm, after 5 pm If you see a wrapper sorter call: [phone] all hours If you see a family practitioner call: [phone] all hours If you were transferred to our institution for delivery and cannot reach your local OB provider, call the gravel hauler numbers. General Instructions Nursing Inpatient Progress C [...] this in detail. Call your doctor or wrapper sorter for: ??? Fever more than 100.5 ??? [...] follow up appointment. You may call the [facility] at any time for guidance or for answers to questions that come up prior to you follow up appointment. Your [facility] Provider can be reached during office hours at ??? Midwives ??? Obstetricians ??? [facility] Follow-up Clinic AFTER OFFICE HOURS for the gravel hauler or wrapper sorter credit collections manager Provider electronic signature confirms that discharge instructions were reviewed with the patient. A copy was printed and given to the patient. Future Appointments and Orders Future Appointments Provider Department Dept Phone 09/17/2017 4:15 PM Emanuel Barrett MD Obst[facility]s [facility] Gynecology at [place] [phone] 10/23/2017 1:00 PM Li Sepulveda MD [facility] at [place] [phone] Future Orders Complete By Expires Durable Medical Equipment Order [EQ148 Custom] As directed Process Instructions: Scheduling Instructions: Comments: Pam Lake 1990 [address] [facility] [address] [facility] [address] (home) [employer] Central intake- #[phone] fax [phone] [place] Office- [phone] RX: Hospital Grade Electric Breast Pump- Lactina Breast Pump Length of Need: 3 Months Purpose of Appliance: To Initiate and Maintain Medical Necessity: /Lactating Mother- Z39.1 Breast Engorgement relative to born at 34 gestation - BW 2.035 (4lb/8oz) P92.9 Feeding problem of , unspecified Premature in ICN from mother- P07.30 Prematurity Questions: Name/Description of requested item: lactina breast pump Size requested: Vendor Name/Contact information: [employer] Discharge References/Attachments HYSTERECTOMY: ABDOMINAL: POST-OP (COOK ISLANDER) GRIEVING (ACTUAL/ANTICIPATED) (COOK ISLANDER) documented in this encounter Discharge Instructions * [...] this in detail. Call your doctor or wrapper sorter for: ??? Fever more than 100.5 ??? [...] follow up appointment. You may call the [facility] at any time for guidance or for answers to questions that come up prior to you follow up appointment. Your [facility] Provider can be reached during office hours at ??? Midwives ??? Obstetricians ??? [facility] Follow-up Clinic AFTER OFFICE HOURS for the gravel hauler or wrapper sorter credit collections manager Provider electronic signature confirms that discharge [...] Depression Contact Numbers: If you see an gravel hauler call: [phone] 9 am - 5 pm, after 5 pm If you see a wrapper sorter call: [phone] all hours If you see a family practitioner call: [phone] all hours If you were transferred to our institution for delivery and cannot reach your local OB provider, call the gravel hauler numbers. * Attachments The following attachments cannot be sent through Care Everywhere. * HYSTERECTOMY: ABDOMINAL: POST-OP (COOK ISLANDER) * GRIEVING (ACTUAL/ANTICIPATED) (COOK ISLANDER) documented in this encounter Medications at Time [...] 20 tablet 3 09/14/2017 10/27/2017 vitamin with ostxhwaq-Yl-Crww-FA Tablet Take 1 tablet by mouth daily. [...] about that. She plans to stay at [facility] after she's been d/c. Understandably, pt reports she has not been able to emotionally process the event of delivery and her baby staying in the ICN yet. Plan: Will arrange for pt to receive gas card. DIEGO Ruiz Pager: [phone] * Pam Valenzuela RN - 09/14/2017 7:43 [...] her sig blood loss. Pam back to [facility] to see babe. Transported by this RN, via wheelchair. Will [...] 09/12/2017 12:00 PM EST Pam called from [facility], ready to return for a nap. Escorted by this RN, via wheelchair, back to room 17. Requesting pain meds. Will medicate with 2nd dose of 5mg oxycodone. LD * Claudine Gamino RN - 09/12/2017 10:40 AM EST Pam called and wanted to get OOB and get ready to go see her baby in the ICN. Care clustered. Ambulated to with contact guard only. Jo well without dizziness or lightheadedness. Amador removed. Pt did own oral care and basic hygiene. Requested oral pain meds and to have L hand IV removed, I need to hold my baby. Discussed with MDs, switched to PO pain med (oxycodone), IV removed from L hand. Taken to [facility], via wheelchair, by this RN. [...] The patient complains of incision pain, states JUNK DEALER has been helping. Pumping for infant nutrition without difficulty. Getting [...] ?? Continue routine care. Will transition from JUNK DEALER to po pain medications. Discontinue amador catheter [...] given 2 mg of IV dilaudid and JUNK DEALER initiated to bring pain down to a [...] date: 07/28/2017 Attending Physician: Arturo Waterman MD Stephanjohn Lopez Jaya [address] [place] [id number] (home) [employer] Central intake- #[phone] fax [phone] [place] Office- [phone] RX: Hospital Grade Electric Breast Pump- Lactina Breast Pump Length of Need: 3 Months Purpose of Appliance: To Initiate and Maintain Medical Necessity: /Lactating Mother- Z39.1 Breast Engorgement relative to born at 34 gestation - BW 2.035 (4lb/8oz) P92.9 Feeding problem of , unspecified Premature in ICN from mother- P07.30 Prematurity Beto Stinson RN Intensive Care Nursery Sales Office ManagerStage Set Up Worker of Care Management Phone:# [phone] Beeper: #[phone] Fax: # [phone] * Yoly Cueva MD - 09/10/2017 4:25 [...] discussed on Multidisciplinary Rounds YOLY CUEVA MD Financial Services Sales Representative PGY-4 08/30/2017 Associated attestation - Crow Vasquez [...] Implemented as Appropriate) ?? 08/26/17 1854 08/30/17 0400 Discharge Needs Assessment [...] discussed on Multidisciplinary Rounds JHONATHAN ROBERTSON MD Financial Services Sales Representative PGY-3 08/30/2017 Associated attestation - Crow Vasquez [...] discussed on Multidisciplinary Rounds JHONATHAN ROBERTSON MD Financial Services Sales Representative PGY-3 08/30/2017 Associated attestation - Crow Vasquez [...] Note Office of Care Management Follow Up: PHARMACISTS met with pt today at bedside to check in on her. Pt is very excited that she will be having herc/s on Thursday and has been talking about holding her baby and being able to meet her. PHARMACISTS reminded went over [facility] again and let pt know she can use [employer] to get groceries during her [facility] stay. Plan: Arrange for breast pump after delivery and continue to provide support to pt. DIEGO Ruiz Pager: [phone] * Jhonathan Robertson MD - 09/07/2017 6:26 [...] discussed on Multidisciplinary Rounds JHONATHAN ROBERTSON MD Financial Services Sales Representative PGY-3 08/30/2017 Associated attestation - Arturo Waterman [...] discussed on Multidisciplinary Rounds YOLY CUEVA MD Financial Services Sales Representative PGY-4 08/30/2017 Associated attestation - Emanuel Barrett [...] discussed on Multidisciplinary Rounds EMERITA ROSARIO MD Financial Services Sales Representative PGY3 08/30/2017 Associated attestation - Emanuel Barrett [...] discussed on Multidisciplinary Rounds JHONATHAN ROBERTSON MD Financial Services Sales Representative PGY3 08/30/2017 Associated attestation - Crow Vasquez [...] discussed on Multidisciplinary Rounds JHONATHAN ROBERTSON MD Financial Services Sales Representative PGY3 08/30/2017 Associated attestation - Emanuel Barrett [...] discussed on Multidisciplinary Rounds JHONATHAN ROBERTSON MD Financial Services Sales Representative PGY3 08/30/2017 Associated attestation - Emanuel Barrett [...] Reassuring for gestational age Comments - JHONATHAN RBOERTSON MD 09/01/2017 Associated attestation - Percy Huerta [...] discussed on Multidisciplinary Rounds JHONATHAN ROBERTSON MD Financial Services Sales Representative PGY3 08/30/2017 Associated attestation - Emanuel Barrett [...] Social Work Note Office of Care Management PHARMACISTS met with pt at bedside to check in. Pt reports she is doing well and is still counting down thedays until baby is born. She seems to be in higher spirits the closer the due date is. Pt reports no needs as of now. Plan: F/u with pt next week or as needed. DIEGO Ruiz Pager: [phone] * Jhonathan Robertson MD - 08/31/2017 5:07 [...] discussed on Multidisciplinary Rounds JHONATHAN ROBERTSON MD Financial Services Sales Representative PGY3 08/30/2017 Associated attestation - Emanuel Barrett [...] discussed on Multidisciplinary Rounds JHONATHAN ROBERTSON MD Financial Services Sales Representative PGY3 08/30/2017 Associated attestation - Crow Vasquez [...] NST. Arturo Waterman MD * Wang Barbour Elba - 08/28/2017 3:04 PM EST Nutrition Services - Follow-up Note Pam Lake : 1990 AGE: 27 y.o. Patient Active Problem List Diagnosis Date Noted ??? Hospital-Asthma 07/28/2017 ??? Hospital-Vasa previa 07/09/2017 ??? Low-lying placenta 07/09/2017 ??? Hospital-Insulin controlled gestational diabetes mellitus (GDM): diagnosed at 7 weeks ylcfxuyjp69/06/2017 ??? Hospital-Previous section x 2 05/29/2017 Reason [...] for ordering her meals. Pt expressed to contract technical writer that she enjoys her current diet [...] Normal for gestational age Amniotic fluid volume: HSERI 11.44 cm, MVP 4.69 cm Placenta: Posterior [...] Gabriel MD - 08/27/2017 7:11 PM EST cotton ball machine tender Progress Note Presented to room to discuss [...] struggling with her stay on the [facility]. She feels like she is in custodial and her mental health is impacted. I [...] Note Office of Care Management Follow Up: PHARMACISTS met with pt at bedside to check in on her. Pt reports she is doing well and is excited that sheis getting closer to delivery date. She seems in higher spirits today than last week and reports she had somewhat of a relaxing New Year's Rosa. Plan: Deliver weekly gas card to pt and check in on her as needed. DIEGO Ruiz Pager: [phone] * Yoly Cueva MD - 08/25/2017 1:50 [...] diabetes mellitus (GDM): diagnosed at 7 weeks jtsrnhizq40/06/2017 ??? Hospital-Previous section x 2 05/29/2017 Reason [...] swallowing. Nursing documentation notes 100% PO intake. Hotel Engineer offered to have snacks sent between meals but pt declined stating she did not to waste them as she does not always eats them. Pt made joke with contract technical writer stating she wants unhealthyfoods between meals [...] Note Office of Care Management Follow Up: PHARMACISTS met with pt at bedside to f/u from yesterday's visit. Pt seems to have calmed down quite a bit from yesterday and was very agreeable to speaking with PHARMACISTS. We talked about what the pt currently has control of in her life and how she feels about it. PHARMACISTS also went over some CBT techniques that pt can use when she begins to feel overwhelmed. BIT referral was also made and someone will be coming to meet with pt. Plan: PHARMACISTS will continue to follow pt for needs. DIEGO Ruiz Pager: [phone] * Desean Soto - 08/19/2017 7:16 AM [...] Note Office of Care Management Follow Up: PHARMACISTS met with pt at bedside. She was visibly upset and crying. Pt is emotionally distressed over notbeing able to see her children on a regular basis and not having the freedom to leave the hospital. Plan: PHARMACISTS will put in BIT referral and provide pt with some relaxation tips and references. DIEGO Ruiz Pager: [phone] * Latasha Nj - 08/18/2017 4:39 PM [...] [place] MD PGY-3 08/18/2017 Associated attestation - iL Sepulveda MD - 08/18/2017 8:17 PM EST [...] her feelings of anger, frustration, & anxiousness. * Yoly Cueva MD - 08/15/2017 1:27 [...] diabetes mellitus (GDM): diagnosed at 7 weeks hvakwcgsg90/06/2017 ??? Hospital-Previous section x 2 05/29/2017 Reason [...] Crenshaw MD * Stephanie Moseley MSW - 08/10/2017 11:59 AM EST Social Work Note Office of Care Management PHARMACISTS met with pt at bedside to check in with her. Pt reports she is doing well, just tired. Presentsno needs at this time. Plan: PHARMACISTS informed pt she would look into gas card from [employer] for this week. DIEGO Ruiz Pager: [phone] * Emerita Rosario Rosie - 08/10/2017 11:01 [...] reapplied. Ptappears more comfortable. * Wang Barbour - 08/07/2017 2:49 PM EST Nutrition Services - Follow-up Note Pam Lake : 1990 AGE: 27 y.o. Patient Active Problem List Diagnosis Date Noted ??? Hospital-Asthma 07/28/2017 ??? Hospital-Vasa previa 07/09/2017 ??? Low-lying placenta 07/09/2017 ??? Hospital-Insulin controlled gestational diabetes mellitus (GDM): diagnosed at 7 weeks uuurzsozz41/06/2017 ??? Hospital-Previous section x 2 05/29/2017 Reason [...] Note Office of Care Management Follow Up: PHARMACISTS met with pt as she was asking about a gas card so her children could visit her in the hospital.PHARMACISTS spoke with Nuvia at [employer] and she has tubed over a $20 gas card for pt. Pt was very happy and appreciative of gas card. Plan: PHARMACISTS will continue to follow pt for needs. DIEGO Ruiz Pager: [phone] * TrevEmerita guzman Rosie - 08/03/2017 9:03 AM EST Obstetrical [...] 2 24 Hour Events -Reactive NST yesterday -[place] contractions yesterday, nothing seen on toco Subjective: [...] E. Arturo Vasquez MD Maternal- Medicine * Desean Soto [...] gas cards for visiting. DIEGO ORTIZ Weekend Staffing And Scheduling Coordinator Pager [phone] * Jhonathan Robertson MD - 08/01/2017 12:11 [...] Note Office of Care Management Follow Up: PHARMACISTS met with pt at bedside today and gave her information on parent/child center in [facility]. Pt declined referral at this time but asked contract technical writer to check back later. PHARMACISTS also spoke with pt about a concern [...] a volunteer cuddler during her stay here. PHARMACISTS told pt she would ask medical staff. Plan: PHARMACISTS will continue to follow pt for needs. DIEGO Ruiz Pager: [phone] * Li Lehman RD - 07/31/2017 3:38 PM EST NUTRITION SERVICES INPATIENT VISIT FOR Gestational Diabetes Pam Canalesquez is a 27 y.o. female Patient Active [...] and be left alone. BS obtained by cane burner, will plan to leave pt alone for [...] not want to talk much to this contract technical writer. Activity Level: sedentary/bedrest BMI before : [...] antigen: Negative Hgb A1c: 6.0 TSH: 0.53 9/21/17: AFP: 1.57 (negative screen for neural tube defects) EMERITA ROSARIO MD PGY3 07/29/17 * Joan Emerita Velez - 07/29/2017 10:32 AM EST Images from [...] Pt states baby is active and kicking. at bedside evaluating pt and discussing POC to deliver after 34wks documented in this encounter H&P Notes * Chely Sin MD - 07/28/2017 4:55 PM EST Obstetrical Admission Note Referring Hospital: [facility] Initial Care Provider (if early referral or co-managed by [facility]): Dr. Isela Blunt Chief Complaint: Pam Lake [...] Dispense Refill Last Dose ??? vitamin with iwkwdonx-Xk-Mfkt-FA Tablet Take 1 tablet by mouth daily. [...] 145, Variability: moderate, Accels: yes, Decels: none, [place]: No contractions Reactive for gestational age Record [...] seen and discussed with Dr. Zurita, Attending INDUSTRIAL SEAMSTRESS. EMERITA ROSARIO MD PGY3 07/28/2017 Attending note [...] Outcome (s) achieved Date Met: 09/15/17 09/15/17 3484 Plan of Care Review Progress progress toward functional goals as expected OUTCOME EVALUATION NOTE: OUTCOME SUMMARY: Pt ambulating to visit infant in ICN. Tolerating diet. Voiding without difficulty. Reports PRN painmedication to adequately control pain level. Assisted with breast pump. Reviewed breast massage andhand expression. Discharge instructions reviewed and questions answered. PLAN MOVING FORWARD: Discharge home - pt plans to stay at [facility] while in ICN. INDIVIDUALIZED FALL PREVENTION INTERVENTIONS: [...] Outcome (s) achieved Date Met: 09/15/17 09/13/1732909/15/17 09 Activity and Safety Assistive Device Wheelchair (ambulating [...] Outcome: Outcome (s) achieved Date Met: 09/15/17 09/15/17953 Safety Interventions Isolation Precautions standard precautions maintained Infection Prevention environmental surveillance performed;personal protective equipment utilized;rest/sleep promoted;single patient room provided Coping Strategies Supportive Measures active listening utilized;positive reinforcement provided;relaxation techniquespromoted;self-care encouraged;self-reflection promoted;self-responsibility promoted Goal: Discharge Needs Assessment Outcome: Outcome (s) achieved Date Met: 09/15/17 09/10/17 1814 09/12/1718 09/13/17 033 Discharge Needs Assessment Concerns To Be Addressed [...] -- family or friend will provide 09/15/17 1641 Discharge Needs Assessment Concerns To Be Addressed [...] is all packed for her stay at [facility] until she can bring her baby home. Kristin Beauchamp, [facility] [phone] Pager [phone] * Plan of Care - Rubi Curran [...] female now 3 admitted on 07/28/2017 by Arturo Maravilla MD with vasa previa with morbidly adherent [...] 16.13) performed by Chely Sin MD at [facility] ??? PRO CYSTOURETHROSCOPY N/A 09/11/2017 CYSTO, CYSTOURETHROSCOPY, DIAGNOSTIC (WRVU 2.23) performed by Chely Sin MD at [facility] ??? PRO SUPRACERV ABD HYSTERECTOMY N/A 09/11/2017 @HYSTERECTOMY, ABD, SUPRACERVICAL (WRVU 16.6) performed by Chely Sin MD at [facility] Subjective: Patient/Family/Caregiver Comments/Observations: Oh that hurts [...] this evaluation. RUBI CURRAN, PT, DPT Pager: [phone] Inpatient Physical Therapy * Plan of Care [...] Outcome: Ongoing (Interventions Implemented as Appropriate) 09/10/17181309/12/1718 09/13/17 033 Individualization Patient Specific Preferences -- [...] until Mon or , then go to [facility], has no support at home and no [...] of this medication. A: Mom with premature infant in ICN reports she is pumping per [...] 48 hours if develop symptoms of engorgement [place] oil to nipples prior to pumping Frequent and prolonged maternal-infant skin to skin contact Close support and follow up Pam given the following pamphlets: Providing breast milk for your baby in the intensive care nursery Breast feeding your premature baby Rosario Noyola RN IBCLC [facility] Services * Consult Note - Kristin Beauchamp - 09/14/2017 1:12 PM EST Behavioral Intervention Team (BIT) BIT PHARMACISTS attempted to meet with Pam who was sleeping. Will try again later. Kristin Beauchamp, [facility] [phone] Pager [phone] * Plan of Care - Yumiko Cochran [...] until Mon or Tu, then go to [facility], has no support at home and no [...] pain * Plan of Care - Daisy Miek RN - 09/13/2017 3:41 AM EST Problem: [...] until Mon or Tu, then go to [facility], has no support at home and [...] SUMMARY: Amador out, voiding on own. DCd JUNK DEALER, switched to po pain meds and IV [...] VS stable, pain controlled with use of JUNK DEALER-Dilaudid. Amador catheter in place, draining adequately to [...] Ongoing (Interventions Implemented as Appropriate) 09/11/17 1547 09/11/17201709/12/17517 Activity and Safety Assistive Device -- None [...] sheath. ?Viable female infant in cephalic presentation, [id number] grams and Apgars of 4, 7 and [...] Information for the patient's : Michele Lake [[id number]] DELIVERY SUMMARY FOR Baby Jess Lake (please [...] Combined est. blood loss (mL): 2500 Delivery ([place]) Delivery Date: 09/11/17 Delivery Time: 1158 Sex: Female Presentation: Vertex Attempted ?: No Delivery Type: Delivery Type (Specific): Lower Segment Transverse Major Indications - : placenta previa Shoulder Dystocia Shoulder dystocia present?: No Delivery Information Delivery Location: [place] Delivering Clinician: YOLY CUEVA Staff Present: Yes Other Personnel: Provider Role TIFFANYALISSON Roger Delivery Nurse CHELY SIN Coal Shoveler LETITIA SCHMIDT Delivery Assist YOLY CUEVA Resident [...] skin to skin not initiated: Maternal Acuity [place] Medications [place] Medications Given: vitamin K, erythromycin Measurements Weight: [...] G 5 p 2 patient on the [facility] with at 34 weeks gestation complicated with vasa previa. I reviewed history in chart as well as oral history from Pam. She was referred as a maternal- transfer from [facility] Relevant History: Pam Lake is a [...] Note ?? Patient Name: Pam Lake : [id number] MR#: [id number] ?? Case Date: 09/11/2017 ?? Surgeon: Surgeon(s) and Role: * Chely Sin MD - Primary * Yoly Cueva MD - Resident-Surgeon Chief * Samantha Ocampo- [facility] ?? Preoperative diagnosis: 1. 34 wk intrauterine [...] and the remainderwas closed with 0-Vicryl with udqozo-em-nqnrz sutures. There was bleeding along the left [...] Operative Note Patient Name: Pam Lake : [id number] MR#: [id number] Case Date: 09/11/2017 Surgeon: Surgeon(s) and Role: [...] and right lateral abdominal wall. Viable female in cephalic presentation. Placenta previa with placenta [...] she wished to meet later today. Kristin Beaucahmp, [facility], [facility] [phone] Pager [phone] * Plan of Care - Arturo Marquez [...] and requested I return later. Kristin Beauchamp, [facility], [facility] [phone] Pager [phone] * Plan of Care - Becca Bailey [...] Outcome: Ongoing (Interventions Implemented as Appropriate) 09/05/17 141 Safety Interventions Isolation Precautions standard precautions maintained [...] on 07/28 and was referred to [facility] for supportive therapy due to her prolonged admission. Record reviewed and discussed with BP nurses and Stephanie CORTEZ. Relevant Information: Introduced the role of BIT SW and the following was discussed. Pam lives in [facility] with her son, Blayne Bang, and her daughter Jermaine, Julieta. During this admission, her children are being cared for by her ex- who is the father of Jermaine. The FOB lives in [place], their relationship is cordial and they talk occasionally on the phone. She feels abandoned by him and isunsure if he will be involved with this baby. Pam is the youngest of three children. She has limited contact with her brother who resides in [place], [place]., her sister is addicted to drugs and lives on the streets of [place], [place]. Pam has 13 nieces and nephews, [...] Additionally, Pam feels like she is in custodial because she is restricted to the unit. She is [place] and loves to cook and has had [...] the NICU. While her baby remains at [facility], she will stay at [place]'s house and have her other two children come [...] sometimes she cannot shut down herbrain. This contract technical writer provided her with online resources to address her insomnia, anxiety and depression and will connect her with the [employer] which she would enjoy. Assessment/Plan: Pam [...] additional coping skills to address her anxiety. [facility], Luanne Pahn and I will continue to follow during this admission to provide support and interventions. STACY Dorantes, [facility] [phone] Pager [phone] * Consult Note - Kristin Beauchamp - 09/03/2017 1:32 PM EST Behavioral Intervention Team ([facility]) Attempted to meet with Pam who was napping and requested I return later today. STACY Curtis, [facility] [phone] Pager [phone] * Consult Note - Kristin Beauchamp - 09/03/2017 10:30 AM EST Behavioral Intervention Team ([facility]) Referral: Pam Lake was admitted for vasa previa on on 07/28 and was referred to [facility] CORTE[facility] for supportive therapy due to her prolonged admission. Record reviewed and discussed with BP RN, Letitia Kelley and DIEGO Brown. Per nursing and social work reports, this admission has been difficult for Pam, who has two other children at home. Additionally she is restricted to the unit in order to remain in close proximity to the OR. [facility] will return later today as Pam prefers not to be disturbed until after noon time. STACY Dorantes, [facility] [phone] Pager [phone] * Plan of Care - Arturo Marquez [...] Positioning Body Position -- -- -- 09/02/17 1198 Activity and Safety Assistive Device -- Daily [...] to monitor. Goal: Individualization & Mutuality 08/11/17 03108/12/1741108/17/17 1830 Individualization Patient Specific Preferences [...] none * Consult Note - Luanne Phan, NOZZLEMAN - 08/31/2017 3:06 PM EST Psychiatry Behavioral Intervention Team ([facility]) Referral: Referred to [facility] for supportive therapy by BP AGUILAR. Per chart, PPHx of PTSD. Record reviewed and discussed with RN. Relevant Information: Attempted to meet with patient x2 today. Patient unavailable both attempts, asked this contract technical writer to f/u at a later time. Assessment/Plan: [facility] will continue to follow for supportive therapy while hospitalized. DIEGO Cat Phone: [phone] Pager: [phone] * Plan of Care - Kristin Morley RN - 08/30/2017 4:37 PM EST Problem: Patient Care Overview Goal: Plan of Care Review Outcome: Ongoing (Interventions Implemented as Appropriate) 08/30/17 0400 08/30/17 1233 Plan of Care Review Progress [...] WDL PLAN MOVING FORWARD: Continue monitoring per fruit preserver CPG INDIVIDUALIZED FALL PREVENTION INTERVENTIONS: Patient-specific fall [...] WDL PLAN MOVING FORWARD: Continue monitoring per higher level teaching assistant CPG INDIVIDUALIZED FALL PREVENTION INTERVENTIONS: Patient-specific fall [...] Ongoing (Interventions Implemented as Appropriate) 08/12/1741108/27/17 1257 08/29/17 1400 Activity and Safety Assistive [...] Outcome: Ongoing (Interventions Implemented as Appropriate) 08/12/1741108/26/17 4134 Discharge Needs Assessment Concerns To Be Addressed [...] Outcome: Ongoing (Interventions Implemented as Appropriate) 08/26/17 6944 Plan of Care Review Progress progress toward [...] Ongoing (Interventions Implemented as Appropriate) 08/11/17 03108/12/17 0412 08/17/17 1830 Individualization Patient Specific Preferences [...] Outcome: Ongoing (Interventions Implemented as Appropriate) 08/03/1759 08/12/17 0412 08/24/17 1627 Discharge Needs Assessment [...] and paperwork given. Gestational Diabetes handout from [facility]. PLAN MOVING FORWARD: No change. Continue to [...] (Interventions Implemented as Appropriate) 08/03/17 0559 08/12/17 04108/22/17 1630 Discharge Needs Assessment Concerns To Be [...] leaking, and bleeding. Pt had more frequent [place] contractions than usual early on in the [...] Outcome: Ongoing (Interventions Implemented as Appropriate) 08/12/1741108/22/17 123 Activity and Safety Assistive Device None -- [...] assumed care of pt at 1500 from YNA Mclean. Pt was yelling on phone and [...] This RN will consider consult to social work/lyft driver for emotional support during extended stay. INDIVIDUALIZED [...] Outcome: Ongoing (Interventions Implemented as Appropriate) 08/12/1741108/14/17 0598 08/17/17 1216 Activity and Safety Assistive Device [...] active listening utilized Goal: Discharge Needs Assessment 08/03/17 0559 08/12/17411 Discharge Needs Assessment Concerns [...] Mutuality Outcome: Ongoing (Interventions Implemented as Appropriate) 1230908/12/17411 Individualization Patient Specific Preferences -- Likes to [...] Assessment Outcome: Ongoing (Interventions Implemented as Appropriate) 08/03/1755808/12/17411 Discharge Needs Assessment Concerns To Be Addressed [...] Handling Outcome: Ongoing (Interventions Implemented as Appropriate) 08/11/17199908/12/172 08/12/172037 Activity and Safety Assistive Device -- [...] RN discussed pt's frustrations and desires with rn relief charge, Joy Bond, and with MDs Nino. PLAN MOVING FORWARD: MDs and rn relief charge said they would pass along pt requests [...] Outcome: Ongoing (Interventions Implemented as Appropriate) 08/12/17 9802 Plan of Care Review Progress no change [...] Outcome: Ongoing (Interventions Implemented as Appropriate) 08/11/17 0827 08/11/17 1736 Plan of Care Review Progress -- no change Coping/Psychosocial Plan Of Care Reviewed With patient -- OUTCOME EVALUATION NOTE: OUTCOME SUMMARY: Pt denies SALMERON, visual change, epigastric pain, edema, LOF, bleeding, or ctx. +FM. Daily NST completed. Formal US completed - vesa previa remains. MD Karimiyer in to review US results with pt. [...] Ongoing (Interventions Implemented as Appropriate) 08/08/17 1628 08/10/17 1155 Plan of Care Review Progress progress [...] Pt ambulated off unit this shift to [place]; RN educated patient about leaving the unit, [...] (Interventions Implemented as Appropriate) 08/03/17 0559 08/07/17 2167 Discharge Needs Assessment Concerns To Be Addressed [...] pt, she verbalized understanding. Pt vomit X3, MD notified, ondansetron ordered and administered. IV started [...] Outcome: Ongoing (Interventions Implemented as Appropriate) 08/07/17 173 Discharge Needs Assessment Concerns To Be Addressed [...] Outcome: Ongoing (Interventions Implemented as Appropriate) 08/01/17 04208/05/1792808/05/17 2200 Activity and Safety Assistive Device None [...] Outcome: Ongoing (Interventions Implemented as Appropriate) 08/05/17 0929 Safety Interventions Isolation Precautions standard precautions maintained [...] Handling Outcome: Ongoing (Interventions Implemented as Appropriate) 08/01/1742408/04/1799 Activity and Safety Assistive Device None -- [...] Control Outcome: Ongoing (Interventions Implemented as Appropriate) 08/04/1760 Safety Interventions Isolation Precautions standard precautions maintained Infection Prevention single patient room provided;rest/sleep promoted Coping Strategies Supportive Measures active listening utilized;decision-making supported;self- care encouraged Goal: Discharge Needs Assessment Outcome: Ongoing (Interventions Implemented as Appropriate) 08/01/1742408/03/17 0559 08/04/17 180 Discharge Needs Assessment Concerns To Be Addressed [...] Handling Outcome: Ongoing (Interventions Implemented as Appropriate) 08/01/1742408/02/17 0808/02/17 1833 Activity and Safety Assistive Device None [...] Assessment Outcome: Ongoing (Interventions Implemented as Appropriate) 08/01/175 08/02/17 0534 Discharge Needs Assessment Concerns To [...] Ongoing (Interventions Implemented as Appropriate) 07/30/17 0830 07/30/171851 Plan of Care Review Progress -- progress [...] Handling Outcome: Ongoing (Interventions Implemented as Appropriate) 07/30/1782907/30/17 1852 Activity and Safety Assistive Device -- None [...] CPG). Outcome: Ongoing (Interventions Implemented as Appropriate) 07/30/17829 High-Risk/Critically Ill OB Patient Problems Assessed (Critically [...] he will be helpful with the baby. PHARMACISTS also educated pt on what to expect if her baby is admitted to the [facility]. PHARMACISTS went over [facility], activity cart, massage/Reiki services, lack of privacy in [facility], andfamily rounds she can be [...] [place] is and FA currently lives in [place]. She states that money is tight for him due to hurricane and he will not be able to come up to [place] for the of the baby. PHARMACISTS spoke with pt about parent child center [...] that she currently sees a counselor at [facility] and is happy with this arrangement. Pt [...] Discharge/Special Considerations: none at this time Plan: PHARMACISTS will continue to follow pt each week and check in on her for needs/questions. A member of the Care Management team will continue to monitor progress, follow for continuity of care and assist with transition of care planning. DEIGO Walker Pager: [phone] * Med Student H&P - Yossi Zurita [...] -3.175 kg (-7 lb) Movement: Yes Contractions: [place] contractions. Leaking: None Bleeding: none Preeclampsia signs and symptoms: None Past Obstetric history: OB History Para Term AB Living 5 2 2 0 2 3 SAB TAB Ectopic Multiple Live Births 1 1 1 Obstetric Comments Gestational diabetes 1st , pre-eclampsia 1st PMH: Asthma (rescue inhaler used ~3X per year when sick) Surgical history: In September at [facility] had to have her Mirena removed [...] Dispense Refill Last Dose ??? vitamin with [id number] Tablet Take 1 tablet by mouth daily. [...] 150, Variability: moderate, Accels: yes, Decels: variable, [place]: None Category: II Record Review Labs Most [...] 09/15/2017 4:15 AM EST BASIC METABOLIC PANEL Routine 09/15/2017 4:15 AM EST HEMOGRAM Routine 09/14/2017 8:10 AM EST DIFFERENTIAL, AUTOMATED Routine 09/14/2017 8:10 AM EST CBC (WITH DIFF) Routine 09/14/2017 8:10 AM EST BASIC METABOLIC PANEL Routine 09/14/2017 8:10 AM EST HEMOGRAM Routine 09/13/2017 6:25 AM EST DIFFERENTIAL, AUTOMATED Routine 09/13/2017 6:25 AM EST CBC (WITH DIFF) Routine 09/13/2017 6:25 AM EST BASIC METABOLIC PANEL Routine 09/13/2017 6:25 AM EST HEMOGRAM Routine 09/12/2017 6:10 AM EST DIFFERENTIAL, AUTOMATED Routine 09/12/2017 6:10 AM EST CBC (WITH DIFF) Routine 09/12/2017 6:10 AM EST MAGNESIUM Routine 09/12/2017 6:10 AM EST BASIC METABOLIC PANEL Routine 09/12/2017 6:10 AM EST SPECIMEN TO PATHOLOGY Routine 09/11/2017 4:04 PM EST HEMOGRAM Routine 09/11/2017 2:57 PM EST DIFFERENTIAL, AUTOMATED Routine 09/11/2017 2:57 PM EST APTT Routine 09/11/2017 2:57 PM EST PROTHROMBIN TIME Routine 09/11/2017 2:57 PM EST FIBRINOGEN Routine 09/11/2017 2:57 PM EST CBC (WITH DIFF) Routine 09/11/2017 2:57 PM EST MAGNESIUM Routine 09/11/2017 2:57 PM EST BASIC METABOLIC PANEL Routine 09/11/2017 2:57 PM EST XR ABDOMEN [...] POCT GLUCOSE Routine 09/10/2017 12:58 PM EST FOREIGN DIPLOMAT SCAN 09/10/2017 12:00 AM EST POCT GLUCOSE [...] 6:55 PM EST RAPID DRUG SCREEN, URINE Routine 07/28/2017 6:45 PM EST RAPID DRUG SCREEN W/ CONFIRMATION, URINE Routine 07/28/2017 6:45 PM EST THC (MARIJUANA), URINE, CONFIRMATION Routine 07/28/2017 6:45 PM EST documented in this encounter Results * (ABNORMAL) Differential, Automated (09/15/2017 4:15 AM EST) Neutrophil % 53.4 % [facility] Neutrophil Absolute 3.14 1.70 - 6.10 x10(3)/mc L [facility] Lymph % 33.3 % [facility] Lymphocytes Abs 2.0 0.9 - 3.2 x10(3)/mc L [facility] Monocyte % 9.7 % [facility] Monocyte Abs 0.6 0.3 - 0.9 x10(3)/mc L [facility] Eos % 2.4 % [facility] Eosinophils Abs 0.1 0.0 - 0.4 x10(3)/mc L [facility] Basophil % 0.3 % [facility] Baso Absolute 0.0 0.0 - 0.1 x10(3)/mc L [facility] Immature Gran % 0.90 % [facility] Comment: Immature granulocytes(IG's)percentage and absolute count will include metamyelocytes, myelocytes, and promyelocytes. Blood smears from CBCs yielding IG's will be scanned manually for concordance. If this scan disagrees with the automated IG or if promyelocytes are noted, a manual differential will be performed. Immature Gran Absolute 0.05(H) 0.00 - 0.04 x10(3)/mc L [facility] Blood specimen (specimen) 09/15/2017 4:15 AM EST 09/15/2017 4:30 AM EST Narrative Resulting Agency Comment Spec In Lab Arturo Waterman MD HEMATOLOGY ORDERABLE S [facility] [place] [address] * (ABNORMAL) Hemogram (09/15/2017 4:15 AM EST) White Blood Cell 5.9 4.0 - 9.5 x10(3)/mc L [facility] Red Blood Cell 2.39(L) 4.00 - 5.21 x10(6)/mc L [facility] Hemoglobin 7.0(L) 11.7 - 15.5 gm/dL [facility] Hematocrit 20.8(L) 35.7 - 45.8 % [facility] Mean Cell Volume 87.0 82.6 - 94.4 fL [facility] Mean Cell Hemoglobin 29.3 27.1 - 32.0 pg [facility] Mean Cell Hemoglobin Concentration 33.7 31.7 - 35.0 gm/dL [facility] Platelet 247 145 - 357 x10(3)/mc L [facility] RDW Standard Deviation 41.6 37.0 - 46.0 fL [facility] RDW coefficient of variation 13.4 11.5 - 14.1 % [facility] Mean Platelet Volume 8.4 7.6 - 12.9 fL [facility] NRBC% auto 0.0 % [facility] NRBC Absolute 0.000 0.000 - 0.000 x10(3)/mc L [facility] Blood specimen (specimen) 09/15/2017 4:15 AM EST 09/15/2017 4:30 AM EST Narrative Resulting Agency Comment Spec In Lab Arturo Waterman MD HEMATOLOGY ORDERABLE S [facility] [place] [address] * Basic Metabolic Panel (non-fasting) (09/15/2017 4:15 AM EST) Glucose 113 65 - 199 mg/dL [facility] Comment:Diabetes: >=200 mg/d L plus symptoms Blood Urea Nitrogen 9 8 - 18 mg/dL [facility] Creatinine 0.93 0.70 - 1.20 mg/dL [facility] Sodium 140 135 - 145 mmol/L [facility] Potassium 3.5 3.5 - 5.0 mmol/L [facility] Comment: Please note: ??Patients with WBC >100,000 may have falsely elevated Potassium levels. ??For accurate Potassium quantification in these patients send serum separator tube (gold top) for subsequent determinations. ??Contact the Clinical Chemistry Laboratory if there are any questions. Chloride 102 98 - 107 mmol/L [facility] Carbon Dioxide 27 22 - 31 mmol/L [facility] Anion Gap 11 5 - 15 mmol/L [facility] Calcium 8.6 8.5 - 10.5 mg/dL [facility] Est Glomerular Filtration Rate >60 >=60 [facility] Comment: The reported eGFR should be multiplied by 1.2 for patients. The MDRD is not an appropriate measure of renal function for patients with body mass extremes or in patients with acute kidney failure. [email or web address] [email or web address] Blood specimen (specimen) 09/15/2017 4:15 AM EST 09/15/2017 4:30 AM EST Narrative Resulting Agency Comment Spec In Lab Arturo Waterman MD [place] [address] * (ABNORMAL) Differential, Automated (09/14/2017 8:10 AM EST) Neutrophil % 57.5 % [facility] Neutrophil Absolute 3.93 1.70 - 6.10 x10(3)/mc L [facility] Lymph % 31.8 % [facility] Lymphocytes Abs 2.2 0.9 - 3.2 x10(3)/mc L [facility] Monocyte % 8.5 % [facility] Monocyte Abs 0.6 0.3 - 0.9 x10(3)/mc L [facility] Eos % 1.2 % [facility] Eosinophils Abs 0.1 0.0 - 0.4 x10(3)/mc L [facility] Basophil % 0.3 % [facility] Baso Absolute 0.0 0.0 - 0.1 x10(3)/ L [facility] Immature Gran % 0.70 % [facility] Comment: Immature granulocytes(IG's)percentage and absolute count will include metamyelocytes, myelocytes, and promyelocytes. Blood smears from CBCs yielding IG's will be scanned manually for concordance. If this scan disagrees with the automated IG or if promyelocytes are noted, a manual differential will be performed. Immature Gran Absolute 0.05(H) 0.00 - 0.04 x10(3)/mc L [facility] Blood specimen (specimen) 09/14/2017 8:10 AM EST 09/14/2017 8:38 AM EST Narrative Resulting Agency Comment Spec In Lab Arturo Waterman MD HEMATOLOGY ORDERABLE S [facility] [place] [address] * (ABNORMAL) Hemogram (09/14/2017 8:10 AM EST) [facility] White Blood Cell 6.8 4.0 - 9.5 x10(3)/[facility] Red Blood Cell 2.24(L) 4.00 - 5.21 x10(6)/[facility] Hemoglobin 6.6(L) 11.7 - 15.5 gm/dL [facility] Hematocrit 19.4(L) 35.7 - 45.8 % [facility] Mean Cell Volume 86.6 82.6 - 94.4 fL [facility] Mean Cell Hemoglobin 29.5 27.1 - 32.0 pg [facility] Mean Cell Hemoglobin Concentration 34.0 31.7 - 35.0 gm/dL [facility] Platelet 213 145 - 357 x10(3)/[facility] RDW Standard Deviation 41.7 37.0 - 46.0 fL [facility] RDW coefficient of variation 13.6 11.5 - 14.1 % [facility] Mean Platelet Volume 8.3 7.6 - 12.9 fL [facility] NRBC% auto 0.0 % [facility] NRBC Absolute 0.000 0.000 - 0.000 x10(3)/[facility] Blood specimen (specimen) 09/14/2017 8:10 AM EST 09/14/2017 8:38 AM EST Narrative Resulting Agency Comment Spec In Lab Arturo Waterman MD HEMATOLOGY ORDERABLE S [facility] [place] [address] * (ABNORMAL) Basic Metabolic Panel (non-fasting) (09/14/2017 8:10 AM EST) [facility] Glucose 97 65 - 199 mg/dL [facility] Comment:Diabetes: >=200 mg/d L plus symptoms Blood Urea Nitrogen 6(L) 8 - 18 mg/dL [facility] Creatinine 0.54(L) 0.70 - 1.20 mg/dL [facility] Sodium 140 135 - 145 mmol/L [facility] Potassium 3.7 3.5 - 5.0 mmol/L [facility] Comment: Please note: ??Patients with WBC >100,000 may have falsely elevated Potassium levels. ??For accurate Potassium quantification in these patients send serum separator tube (gold top) for subsequent determinations. ??Contact the Clinical Chemistry Laboratory if there are any questions. Chloride 102 98 - 107 mmol/L [facility] Carbon Dioxide 27 22 - 31 mmol/L [facility] Anion Gap 11 5 - 15 mmol/L [facility] Calcium 8.5 8.5 - 10.5 mg/dL [facility] Est Glomerular Filtration Rate >60 >=60 [facility] Comment: The reported eGFR should be multiplied by 1.2 for patients. The MDRD is not an appropriate measure of renal function for patients with body mass extremes or in patients with acute kidney failure. [email or web address]/DHnkdep [email or web address]/DHMCnkf Blood specimen (specimen) 09/14/2017 8:10 AM EST 09/14/2017 8:38 AM EST Narrative Resulting Agency Comment Spec In Lab Arturo Waterman MD CHEMISTRY ORDERABLES [facility] [place] [address] * (ABNORMAL) Differential, Automated (09/13/2017 6:25 AM EST) Neutrophil % 60.5 % [facility] Neutrophil Absolute 5.31 1.70 - 6.10 x10(3)/mc L [facility] Lymph % 27.8 % [facility] Lymphocytes Abs 2.4 0.9 - 3.2 x10(3)/[facility] Monocyte % 10.1 % [facility] Monocyte Abs 0.9 0.3 - 0.9 x10(3)/[facility] Eos % 0.7 % [facility] Eosinophils Abs 0.1 0.0 - 0.4 x10(3)/[facility] Basophil % 0.3 % [facility] Baso Absolute 0.0 0.0 - 0.1 x10(3)/[facility] Immature Gran % 0.60 % [facility] Comment: Immature granulocytes(IG's)percentage and absolute count will include metamyelocytes, myelocytes, and promyelocytes. Blood smears from CBCs yielding IG's will be scanned manually for concordance. If this scan disagrees with the automated IG or if promyelocytes are noted, a manual differential will be performed. Immature Gran Absolute 0.05(H) 0.00 - 0.04 x10(3)/[facility] Blood specimen (specimen) 09/13/2017 6:25 AM EST 09/13/2017 6:40 AM EST Narrative Resulting Agency Comment Spec In Lab Arturo Waterman MD HEMATOLOGY ORDERABLE S Performing Organization Address City/State/[facility] Co de Phone Number [facility] [place] [address] * (ABNORMAL) Hemogram (09/13/2017 6:25 AM EST) White Blood Cell 8.8 4.0 - 9.5 x10(3)/[facility] Red Blood Cell 2.43(L) 4.00 - 5.21 x10(6)/[facility] Hemoglobin 7.1(L) 11.7 - 15.5 gm/dL [facility] Hematocrit 20.9(L) 35.7 - 45.8 % [facility] Mean Cell Volume 86.0 82.6 - 94.4 fL [facility] Mean Cell Hemoglobin 29.2 27.1 - 32.0 pg [facility] Mean Cell Hemoglobin Concentration 34.0 31.7 - 35.0 gm/dL [facility] Platelet 187 145 - 357 x10(3)/mc L [facility] RDW Standard Deviation 41.3 37.0 - 46.0 fL [facility] RDW coefficient of variation 13.4 11.5 - 14.1 % [facility] Mean Platelet Volume 8.3 7.6 - 12.9 fL [facility] NRBC% auto 0.0 % [facility] NRBC Absolute 0.000 0.000 - 0.000 x10(3)/mc L [facility] Blood specimen (specimen) 09/13/2017 6:25 AM EST 09/13/2017 6:40 AM EST Narrative Resulting Agency Comment Spec In Lab Arturo Waterman MD HEMATOLOGY ORDERABLE S [facility] [place] [address] * (ABNORMAL) Basic Metabolic Panel (non-fasting) (09/13/2017 6:25 AM EST) Glucose 94 65 - 199 mg/dL [facility] [facility] Comment:Diabetes: >=200 mg/d L plus symptoms Blood Urea Nitrogen 7(L) 8 - 18 mg/dL [facility] Creatinine 0.65(L) 0.70 - 1.20 mg/dL [facility] Sodium 137 135 - 145 mmol/L [facility] Potassium 3.7 3.5 - 5.0 mmol/L [facility] Comment: Please note: ??Patients with WBC >100,000 may have falsely elevated Potassium levels. ??For accurate Potassium quantification in these patients send serum separator tube (gold top) for subsequent determinations. ??Contact the Clinical Chemistry Laboratory if there are any questions. Chloride 99 98 - 107 mmol/L [facility] Carbon Dioxide 24 22 - 31 mmol/L [facility] Anion Gap 14 5 - 15 mmol/L [facility] Calcium 8.4(L) 8.5 - 10.5 mg/dL [facility] Est Glomerular Filtration Rate >60 >=60 [facility] Comment: The reported eGFR should be multiplied by 1.2 for patients. The MDRD is not an appropriate measure of renal function for patients with body mass extremes or in patients with acute kidney failure. http://[facility]/DHnkdep http://[facility]/DHMCnkf Blood specimen (specimen) 09/13/2017 6:25 AM EST 09/13/2017 6:40 AM EST Narrative Resulting Agency Comment Spec In Lab Arturo Waterman MD CHEMISTRY ORDERABLES Performing Organization Address City/State/[facility] Co de Phone Number [facility] [place] [phone] * (ABNORMAL) Differential, Automated (09/12/2017 6:10 AM EST) Neutrophil % 66.0 % [facility] Neutrophil Absolute 5.44 1.70 - 6.10 x10(3)/mc L [facility] Lymph % 23.3 % [facility] Lymphocytes Abs 1.9 0.9 - 3.2 x10(3)/mc L [facility] Monocyte % 9.7 % [facility] Monocyte Abs 0.8 0.3 - 0.9 x10(3)/mc L [facility] Eos % 0.2 % [facility] Eosinophils Abs 0.0 0.0 - 0.4 x10(3)/mc L [facility] Basophil % 0.2 % [facility] Baso Absolute 0.0 0.0 - 0.1 x10(3)/mc L [facility] Immature Gran % 0.60 % [facility] Comment: Immature granulocytes(IG's)percentage and absolute count will include metamyelocytes, myelocytes, and promyelocytes. Blood smears from CBCs yielding IG's will be scanned manually for concordance. If this scan disagrees with the automated IG or if promyelocytes are noted, a manual differential will be performed. Immature Gran Absolute 0.05(H) 0.00 - 0.04 x10(3)/mc L [facility] Blood specimen (specimen) 09/12/2017 6:10 AM EST 09/12/2017 6:21 AM EST Narrative Resulting Agency Comment Spec In Lab Arturo Waterman MD HEMATOLOGY ORDERABLE S [facility] [place] [address] * (ABNORMAL) Hemogram (09/12/2017 6:10 AM EST) White Blood Cell 8.2 4.0 - 9.5 x10(3)/mc L [facility] Red Blood Cell 2.62(L) 4.00 - 5.21 x10(6)/mc L [facility] Hemoglobin 7.6(L) 11.7 - 15.5 gm/dL [facility] Comment: This result has been called to EMERITA CADENA by Gail Ramires on 09 12 2017 at 0635, and has been read back. Hematocrit 22.1(L) 35.7 - 45.8 % [facility] Mean Cell Volume 84.4 82.6 - 94.4 fL [facility] Mean Cell Hemoglobin 29.0 27.1 - 32.0 pg [facility] Mean Cell Hemoglobin Concentration 34.4 31.7 - 35.0 gm/dL [facility] Platelet 190 145 - 357 x10(3)/mc L [facility] RDW Standard Deviation 40.1 37.0 - 46.0 fL [facility] RDW coefficient of variation 13.2 11.5 - 14.1 % [facility] Mean Platelet Volume 8.5 7.6 - 12.9 fL [facility] NRBC% auto 0.0 % [facility] NRBC Absolute 0.000 0.000 - 0.000 x10(3)/mc L [facility] Blood specimen (specimen) 09/12/2017 6:10 AM EST 09/12/2017 6:21 AM EST Narrative Resulting Agency Comment Spec In Lab Arturo Waterman MD HEMATOLOGY ORDERABLE S [facility] [place] [address] * (ABNORMAL) Basic Metabolic Panel (non-fasting) (09/12/2017 6:10 AM EST) Glucose 87 65 - 199 mg/dL [facility] Comment:Diabetes: >=200 mg/d L plus symptoms Blood Urea Nitrogen 5(L) 8 - 18 mg/dL [facility] Creatinine 0.57(L) 0.70 - 1.20 mg/dL [facility] Sodium 135 135 - 145 mmol/L [facility] Potassium 4.3 3.5 - 5.0 mmol/L [facility] Comment: Please note: ??Patients with WBC >100,000 may have falsely elevated Potassium levels. ??For accurate Potassium quantification in these patients send serum separator tube (gold top) for subsequent determinations. ??Contact the Clinical Chemistry Laboratory if there are any questions. Chloride 99 98 - 107 mmol/L [facility] Carbon Dioxide 24 22 - 31 mmol/L [facility] Anion Gap 12 5 - 15 mmol/L [facility] Calcium 7.8(L) 8.5 - 10.5 mg/dL [facility] Est Glomerular Filtration Rate >60 >=60 [facility] Comment: The reported eGFR should be multiplied by 1.2 for patients. The MDRD is not an appropriate measure of renal function for patients with body mass extremes or in patients with acute kidney failure. http://[facility]/DHnkdep http://[facility]/DHMCnkf Blood specimen (specimen) 09/12/2017 6:10 AM EST 09/12/2017 6:21 AM EST Narrative Resulting Agency Comment Spec In Lab Arturo Waterman MD CHEMISTRY ORDERABLES Performing Organization Address [facility]/ZIP Co de Phone Number [facility] [place] [address] * (ABNORMAL) Magnesium (09/12/2017 6:10 AM EST) Magnesium 0.63(L) 0.69 - 1.07 mmol/L [facility] Blood specimen (specimen) 09/12/2017 6:10 AM EST 09/12/2017 6:21 AM EST Narrative Resulting Agency Comment Spec In Lab Arturo Waterman MD CHEMISTRY ORDERABLES Performing Organization Address [facility] Co de Phone Number [facility] [place] [address] * Specimen to Pathology (09/11/2017 4:04 PM EST) AP Specimen 09/11/2017 4:04 PM EST 09/11/2017 4:04 PM EST Narrative [facility] - 09/11/2017 4:04 PM EST Specimen requisition ordered. ??Separate Pathology report to follow Arturo Waterman MD PATHOLOGY/CYTOLOGY O RDERABLES Performing Organization Address [facility] Co de Phone Number [facility] [place] [address] * (ABNORMAL) Differential, Automated (09/11/2017 2:57 PM EST) Neutrophil % 86.4 % [facility] Neutrophil Absolute 11.87(H) 1.70 - 6.10 x10(3)/mc L [facility] Lymph % 8.5 % [facility] Lymphocytes Abs 1.2 0.9 - 3.2 x10(3)/ L [facility] Monocyte % 4.4 % [facility] Monocyte Abs 0.6 0.3 - 0.9 x10(3)/ L [facility] Eos % 0.0 % [facility] Eosinophils Abs 0.0 0.0 - 0.4 x10(3)/ L [facility] Basophil % 0.1 % [facility] Baso Absolute 0.0 0.0 - 0.1 x10(3)/[facility] Immature Gran % 0.60 % [facility] Comment: Immature granulocytes(IG's)percentage and absolute count will include metamyelocytes, myelocytes, and promyelocytes. Blood smears from CBCs yielding IG's will be scanned manually for concordance. If this scan disagrees with the automated IG or if promyelocytes are noted, a manual differential will be performed. Immature Gran Absolute 0.08(H) 0.00 - 0.04 x10(3)/ L [facility] Blood specimen (specimen) 09/11/2017 2:57 PM EST 09/11/2017 3:03 PM EST Narrative Resulting Agency Comment Spec In Lab Arturo Waterman MD HEMATOLOGY ORDERABLE S [facility] [place] [address] * (ABNORMAL) Hemogram (09/11/2017 2:57 PM EST) White Blood Cell 13.8(H) 4.0 - 9.5 x10(3)/ L [facility] Red Blood Cell 3.44(L) 4.00 - 5.21 x10(6)/ L [facility] Hemoglobin 10.3(L) 11.7 - 15.5 gm/dL [facility] Hematocrit 29.0(L) 35.7 - 45.8 % [facility] Mean Cell Volume 84.3 82.6 - 94.4 fL [facility] Mean Cell Hemoglobin 29.9 27.1 - 32.0 pg [facility] Mean Cell Hemoglobin Concentration 35.5(H) 31.7 - 35.0 gm/dL [facility] Platelet 218 145 - 357 x10(3)/mc L [facility] RDW Standard Deviation 38.5 37.0 - 46.0 [facility] RDW coefficient of variation 12.8 11.5 - 14.1 % [facility] Mean Platelet Volume 8.7 7.6 - 12.9 fL [facility] NRBC% auto 0.0 % [facility] NRBC Absolute 0.000 0.000 - 0.000 x10(3)/mc L [facility] Blood specimen (specimen) 09/11/2017 2:57 PM EST 09/11/2017 3:03 PM EST Narrative Resulting Agency Comment Spec In Lab Arturo Waterman MD HEMATOLOGY ORDERABLE S Performing Organization Address [facility] Co de Phone Number [facility] [place] [address] * (ABNORMAL) Magnesium (09/11/2017 2:57 PM EST) Magnesium 0.52(L) 0.69 - 1.07 mmol/L [facility] Blood specimen (specimen) 09/11/2017 2:57 PM EST 09/11/2017 3:03 PM EST Narrative Resulting Agency Comment Spec In Lab Arturo Waterman MD CHEMISTRY ORDERABLES Performing Organization Address [facility] Co de Phone Number [facility] [place] [address] * (ABNORMAL) Basic Metabolic Panel (non-fasting) (09/11/2017 2:57 PM EST) Glucose 130 65 - 199 mg/dL [facility] Comment:Diabetes: >=200 mg/d L plus symptoms Blood Urea Nitrogen 6(L) 8 - 18 mg/dL [facility] Creatinine 0.44(L) 0.70 - 1.20 mg/dL [facility] Sodium 138 135 - 145 mmol/L [facility] Potassium 4.1 3.5 - 5.0 mmol/L [facility] Comment: Please note: ??Patients with WBC >100,000 may have falsely elevated Potassium levels. ??For accurate Potassium quantification in these patients send serum separator tube (gold top) for subsequent determinations. ??Contact the Clinical Chemistry Laboratory if there are any questions. Chloride 103 98 - 107 mmol/L [facility] Carbon Dioxide 21(L) 22 - 31 mmol/L [facility] Anion Gap 14 5 - 15 mmol/L [facility] Calcium 8.1(L) 8.5 - 10.5 mg/dL [facility] Est Glomerular Filtration Rate >60 >=60 [facility] Comment: The reported eGFR should be multiplied by 1.2 for patients. The MDRD is not an appropriate measure of renal function for patients with body mass extremes or in patients with acute kidney failure. [email or web address]/DHnkdep http://[facility]/DHMCnkf Blood specimen (specimen) 09/11/2017 2:57 PM EST 09/11/2017 3:03 PM EST Narrative Resulting Agency Comment Spec In Lab Arturo Waterman MD CHEMISTRY ORDERABLES [facility] [place] [address] * Fibrinogen (09/11/2017 2:57 PM EST) Fibrinogen 361 180 - 510 mg/dL [facility] Comment: A fibrinogen level >100 mg/dL is adequate for hemostasis in most patients without underlying bleeding disorders. Blood specimen (specimen) 09/11/2017 2:57 PM EST 09/11/2017 3:03 PM EST Narrative Resulting Agency Comment Spec In Lab Arturo Waterman MD HEMATOLOGY ORDERABLE S Performing Organization Address [facility] Co de Phone Number [facility] [place] [address] * APTT (09/11/2017 2:57 PM EST) Partial Thromboplastin Time 30 25 - 35 sec [facility] Comment: The recommended therapeutic range for full dose, unfractionated heparin at [facility] is 80 ? 114 seconds. The use of the anti-Xa (heparin) level rather than the PTT is recommended for monitoring anticoagulation intensity in critically ill patients receiving unfractionated heparin by continuous IV infusion. Blood specimen (specimen) 09/11/2017 2:57 PM EST 09/11/2017 3:03 PM EST Narrative Resulting Agency Comment Spec In Lab Arturo Waterman MD HEMATOLOGY ORDERABLE S Performing Organization Address [facility] de Phone Number [facility] [place] [address] * (ABNORMAL) Prothrombin Time (09/11/2017 2:57 PM EST) Prothrombin Time 14.4(H) 11.8 - 14.0 sec [facility] International Normalization Ratio 1.2(H) 0.9 - 1.1 [facility] MD HEMATOLOGY ORDERABLE S Performing Organization Address [facility]/ZIP Co de Phone Number [facility] [place] [address] * XR Abdomen 1 view (Generic) (09/11/2017 [...] Madison Abdi and discussed with Dr. CHELY SETVE at 09/11/2017 2:22 PM. Electronically signed by: ISAURA [facility], 09/11/2017 2:28 PM Chely Sin MD IMG DX ORDERABLES * Specimen to Pathology (09/11/2017 1:53 PM EST) AP Specimen 09/11/2017 1:53 PM EST 09/11/2017 1:53 PM EST Narrative [facility] - 09/11/2017 1:53 PM EST Specimen requisition ordered. ??Separate Pathology report to follow Chely Sin MD PATHOLOGY/CYTOLOGY O RDERABLES [facility] [place] [address] * Specimen to Pathology (09/11/2017 1:30 PM EST) AP Specimen 09/11/2017 1:30 PM EST 09/11/2017 1:30 PM EST Narrative [facility] - 09/11/2017 1:30 PM EST Specimen requisition ordered. ??Separate Pathology report to follow Arturo Waterman MD PATHOLOGY/CYTOLOGY O JORGE ALBERTO Performing Organization Address [facility] Co de Phone Number [facility] [place] [address] * Prepare RBC (09/11/2017 12:05 PM EST) Dispensed? Yes [facility] Blood specimen (specimen) 09/11/2017 12:05 PM EST 09/11/2017 12:03 PM EST Arturo Waterman MD BLOOD BANK PRODUCT O RDERAFRANNIE Performing Organization Address [facility] de Phone Number [facility] [place] [address] * Surgical Pathology Report (09/11/2017 12:01 PM EST) Final Diagnosis [id number] ? Location: ; [facility]; A The signing pathologist has (i) examined [...] Jayson Velez Verified: ??09/17/2017 ?Pathologist Performed at: ??-[facility] Dept. of Pathology, [place], [place] CLINICAL INFORMATION Specimen Submitted: A - [...] anterior endometrium with placenta ?. (R15) ??doron 09/17/2017 9:19 AM EST [facility] TISSUE SPECIMEN FROM PLACENTA / Unknown 09/11/2017 12:01 PM EST 09/11/2017 12:01 PM EST Uterine Corpus 09/11/2017 12 :01 PM EST 09/11/2017 12:01 PM EST Jhonathan Robertson MD PATHOLOGY/CYTOLOGY O RDERABLES [facility] [place] [address] * POCT Glucose (09/11/2017 8:58 AM EST) Glucose, POC 91 65 - 199 mg/dL [facility] Comment: Supplemental ranges: <140 mg/dL before meals <180 mg/dL all other times of the day Blood specimen (specimen) 09/11/2017 8:58 AM EST 09/11/2017 8:58 AM EST Arturo Waterman MD POINT OF CARE TEST O RDERABLES [facility] [place] [address] * Ab Comment (09/11/2017 5:15 AM EST) [...] MD, PhD Transfusion Medicine Service 09/22/17 12:02 [facility] Comment: KANIKA LIM, Pathologist Verified:09/22/17 Blood specimen (specimen) Venous Draw / Unknown 09/11/2017 5:15 AM EST 09/11/2017 5:29 AM EST Narrative Resulting Agency Comment Spec In Lab Yoly Cueva MD BLOOD BANK LAB ORDER KURT Performing Organization Address City/[facility]/ZIP Co de Phone Number [facility] [place] [address] * Antibody identification (09/11/2017 5:15 AM EST) Ab Identified Anti-Jka [facility] Blood specimen (specimen) Venous Draw / Unknown 09/11/2017 5:15 AM EST 09/11/2017 5:29 AM EST Narrative Resulting Agency Comment Spec In Lab Yoly Cueva MD BLOOD BANK LAB ORDER KURT Performing Organization Address [facility]/ZIP Co de Phone Number [facility] [place] [address] * ABORH Recheck Status (09/11/2017 5:15 AM EST) ABORH Type Recheck Completed [facility] Blood specimen (specimen) Venous Draw / Unknown 09/11/2017 5:15 AM EST 09/11/2017 5:29 AM EST Narrative Resulting Agency Comment Spec In Lab Yoly Cueva MD BLOOD BANK LAB ORDER KURT [facility] [place] [address] * Antibody screen manual (09/11/2017 5:15 AM EST) AB Screen Interp Positive [facility] Blood specimen (specimen) Venous Draw / Unknown 09/11/2017 5:15 AM EST 09/11/2017 5:29 AM EST Narrative Resulting Agency Comment Spec In Lab Arturo Waterman MD BLOOD BANK LAB ORDER KURT Performing Organization Address City/[facility]/ZIP Co de Phone Number [facility] [place] [address] * ABORh Type Manual (09/11/2017 5:15 AM EST) Expires at [id number] on: 09/14/2017 [facility] ABORH Type B Pos [facility] Blood specimen (specimen) Venous Draw / Unknown 09/11/2017 5:15 AM EST 09/11/2017 5:29 AM EST Narrative Resulting Agency Comment Spec In Lab Arturo Waterman MD BLOOD BANK LAB ORDER KURT Performing Organization Address City/[facility]/ZIP Co de Phone Number [facility] [place] [address] * Differential, Automated (09/11/2017 5:15 AM EST) Neutrophil % 59.9 % [facility] Neutrophil Absolute 4.60 1.70 - 6.10 x10(3)/[facility] Lymph % 29.6 % [facility] Lymphocytes Abs 2.3 0.9 - 3.2 x10(3)/[facility] Monocyte % 8.8 % [facility] Monocyte Abs 0.7 0.3 - 0.9 x10(3)/[facility] Eos % 0.9 % [facility] Eosinophils Abs 0.1 0.0 - 0.4 x10(3)/[facility] Basophil % 0.3 % [facility] Baso Absolute 0.0 0.0 - 0.1 x10(3)/[facility] Immature Gran % 0.50 % [facility] Comment: Immature granulocytes(IG's)percentage and absolute count will include metamyelocytes, myelocytes, and promyelocytes. Blood smears from CBCs yielding IG's will be scanned manually for concordance. If this scan disagrees with the automated IG or if promyelocytes are noted, a manual differential will be performed. Immature Gran Absolute 0.04 0.00 - 0.04 x10(3)/[facility] Blood specimen (specimen) 09/11/2017 5:15 AM EST 09/11/2017 5:32 AM EST Narrative Resulting Agency Comment Spec In Lab Arturo Waterman MD HEMATOLOGY ORDERABLE S [facility] [place] [address] * (ABNORMAL) Hemogram (09/11/2017 5:15 AM EST) White Blood Cell 7.7 4.0 - 9.5 x10(3)/mc L [facility] Red Blood Cell 3.88(L) 4.00 - 5.21 x10(6)/mc L [facility] Hemoglobin 11.2(L) 11.7 - 15.5 gm/dL [facility] Hematocrit 32.4(L) 35.7 - 45.8 % [facility] Mean Cell Volume 83.5 82.6 - 94.4 fL [facility] Mean Cell Hemoglobin 28.9 27.1 - 32.0 pg [facility] Mean Cell Hemoglobin Concentration 34.6 31.7 - 35.0 gm/dL [facility] Platelet 195 145 - 357 x10(3)/mc L [facility] RDW Standard Deviation 38.8 37.0 - 46.0 fL [facility] RDW coefficient of variation 12.9 11.5 - 14.1 % [facility] Mean Platelet Volume 8.2 7.6 - 12.9 fL [facility] NRBC% auto 0.0 % [facility] NRBC Absolute 0.000 0.000 - 0.000 x10(3)/mc L [facility] Blood specimen (specimen) 09/11/2017 5:15 AM EST 09/11/2017 5:32 AM EST Narrative Resulting Agency Comment Spec In Lab Arturo Waterman MD HEMATOLOGY ORDERABLE S Performing Organization Address City/[facility]/ZIP Co de Phone Number [facility] [place] [address] * SCAN DOC: LAB (09/11/2017 12:00 AM EST) Narrative 09/11/2017 12:00 AM EST Ordered by an unspecified provider. Scanning Provider MEDIA MGR SCAN EXT O RDR/RSLT * POCT Glucose (09/10/2017 7:15 PM EST) Glucose, POC 99 65 - 199 mg/dL [facility] Comment: Supplemental ranges: <140 mg/dL before meals <180 mg/dL all other times of the day Blood specimen (specimen) 09/10/2017 7:15 PM EST 09/10/2017 7:15 PM EST Arturo Waterman MD POINT OF CARE TEST O RDERABLES Performing Organization Address City/[facility]/ZIP Co de Phone Number [facility] [place] [address] * POCT Glucose (09/10/2017 3:01 PM EST) Glucose, POC 138 65 - 199 mg/dL [facility] Comment: Supplemental ranges: <140 mg/dL before meals <180 mg/dL all other times of the day Blood specimen (specimen) 09/10/2017 3:01 PM EST 09/10/2017 3:01 PM EST Arturo Waterman MD POINT OF CARE TEST O RDERABLES Performing Organization Address City/[facility]/ZIP Co de Phone Number [facility] [place] [address] * POCT Glucose (09/10/2017 12:58 PM EST) Glucose, POC 83 65 - 199 mg/dL [facility] Comment: Supplemental ranges: <140 mg/dL before meals <180 mg/dL all other times of the day Blood specimen (specimen) 09/10/2017 12:58 PM EST 09/10/2017 12:58 PM EST Arturo Waterman MD POINT OF CARE TEST O RDERAFRANNIE Performing Organization Address [facility] Co de Phone Number [facility] [place] [address] * SCAN DOC: FOREIGN DIPLOMAT (09/10/2017 12:00 AM EST) Anatomical Region Laterality Modality Other Narrative 09/10/2017 12:00 AM EST Ordered by an unspecified provider. Scanning Provider MEDIA MGR SCAN EXT O RDR/RSLT * POCT Glucose (09/09/2017 8:28 PM EST) Glucose, POC 118 65 - 199 mg/dL [facility] Comment: Supplemental ranges: <140 mg/dL before meals <180 mg/dL all other times of the day Blood specimen (specimen) 09/09/2017 8:28 PM EST 09/09/2017 8:28 PM EST Arturo Waterman MD POINT OF CARE TEST O RDERABLES Performing Organization Address City/[facility]/ZIP Co de Phone Number [facility] [place] [address] * POCT Glucose (09/09/2017 3:32 PM EST) Glucose, POC 121 65 - 199 mg/dL [facility] Comment: Supplemental ranges: <140 mg/dL before meals <180 mg/dL all other times of the day Blood specimen (specimen) 09/09/2017 3:32 PM EST 09/09/2017 3:32 PM EST Arturo Waterman MD POINT OF CARE TEST O RDERABLES [facility] [facility] [place] [address] * POCT Glucose (09/09/2017 1:46 PM EST) Glucose, POC 75 65 - 199 mg/dL [facility] Comment: Supplemental ranges: <140 mg/dL before meals <180 mg/dL all other times of the day Blood specimen (specimen) 09/09/2017 1:46 PM EST 09/09/2017 1:46 PM EST Arturo Waterman MD POINT OF CARE TEST O RDERABLES [facility] [place] [address] * POCT Glucose (09/09/2017 12:28 AM EST) Glucose, POC 169 65 - 199 mg/dL [facility] Comment: Supplemental ranges: <140 mg/dL before meals <180 mg/dL all other times of the day Blood specimen (specimen) 09/09/2017 12:28 AM EST 09/09/2017 12:28 AM EST Arturo Waterman MD POINT OF CARE TEST O RDERABLES [facility] [place] [address] * POCT Glucose (09/08/2017 2:38 PM EST) Glucose, POC 160 65 - 199 mg/dL [facility] Comment: Supplemental ranges: <140 mg/dL before meals <180 mg/dL all other times of the day Blood specimen (specimen) 09/08/2017 2:38 PM EST 09/08/2017 2:38 PM EST Arturo Waterman MD POINT OF CARE TEST O JORGE ALBERTO [facility] [place] [address] * POCT Glucose (09/08/2017 11:46 AM EST) Glucose, POC 89 65 - 199 mg/dL [facility] Comment: Supplemental ranges: <140 mg/dL before meals <180 mg/dL all other times of the day Blood specimen (specimen) 09/08/2017 11:46 AM EST 09/08/2017 11:46 AM EST Arturo Waterman MD POINT OF CARE TEST O JORGE ALBERTO Performing Organization Address City/[facility]/ZIP Co de Phone Number [facility] [place] [address] * POCT Glucose (09/07/2017 10:41 PM EST) Glucose, POC 140 65 - 199 mg/dL [facility] Comment: Supplemental ranges: <140 mg/dL before meals <180 mg/dL all other times of the day Blood specimen (specimen) 09/07/2017 10:41 PM EST 09/07/2017 10:41 PM EST Arturo Waterman MD POINT OF CARE TEST O JORGE ALBERTO [facility] [place] [address] * POCT Glucose (09/07/2017 2:56 PM EST) Glucose, POC 147 65 - 199 mg/dL [facility] Comment: Supplemental ranges: <140 mg/dL before meals <180 mg/dL all other times of the day Blood specimen (specimen) 09/07/2017 2:56 PM EST 09/07/2017 2:56 PM EST Arturo Waterman MD POINT OF CARE TEST O JORGE ALBERTO [facility] [place] [address] * POCT Glucose (09/07/2017 12:55 PM EST) Glucose, POC 85 65 - 199 mg/dL [facility] Comment: Supplemental ranges: <140 mg/dL before meals <180 mg/dL all other times of the day Blood specimen (specimen) 09/07/2017 12:55 PM EST 09/07/2017 12:55 PM EST Arturo Waterman MD POINT OF CARE TEST O JORGE ALBERTO Performing Organization Address City/[facility]/ZIP Co de Phone Number [facility] [place] [address] * POCT Glucose (09/06/2017 7:37 PM EST) Glucose, POC 120 65 - 199 mg/dL [facility] Comment: Supplemental ranges: <140 mg/dL before meals <180 mg/dL all other times of the day Blood specimen (specimen) 09/06/2017 7:37 PM EST 09/06/2017 7:37 PM EST Arturo Waterman MD POINT OF CARE TEST O BENJYERAFRANNIE Performing Organization Address City/[facility]/ZIP Co de Phone Number [facility] [place] [address] * POCT Glucose (09/06/2017 2:12 PM EST) Glucose, POC 134 65 - 199 mg/dL [facility] Comment: Supplemental ranges: <140 mg/dL before meals <180 mg/dL all other times of the day Blood specimen (specimen) 09/06/2017 2:12 PM EST 09/06/2017 2:12 PM EST Arturo Waterman MD POINT OF CARE TEST O RDERABLES Performing Organization Address City/[facility]/ZIP Co de Phone Number [facility] [place] [address] * POCT Glucose (09/06/2017 12:09 PM EST) Glucose, POC 85 65 - 199 mg/dL [facility] Comment: Supplemental ranges: <140 mg/dL before meals <180 mg/dL all other times of the day Blood specimen (specimen) 09/06/2017 12:09 PM EST 09/06/2017 12:09 PM EST Arturo Waterman MD POINT OF CARE TEST O RDERAFRANNIE Performing Organization Address [facility]/ZIP Co de Phone Number [facility] [place] [address] * POCT Glucose (09/05/2017 8:40 PM EST) Glucose, POC 123 65 - 199 mg/dL [facility] Comment: Supplemental ranges: <140 mg/dL before meals <180 mg/dL all other times of the day Blood specimen (specimen) 09/05/2017 8:40 PM EST 09/05/2017 8:40 PM EST Arturo Waterman MD POINT OF CARE TEST O RDERAFRANNIE [facility] [place] [address] * POCT Glucose (09/05/2017 3:39 PM EST) Glucose, POC 163 65 - 199 mg/dL [facility] Comment: Supplemental ranges: <140 mg/dL before meals <180 mg/dL all other times of the day Blood specimen (specimen) 09/05/2017 3:39 PM EST 09/05/2017 3:39 PM EST Arturo Waterman MD POINT OF CARE TEST O JORGE ALBERTO Performing Organization Address City/[facility]/ZIP Co de Phone Number [facility] [place] [address] * POCT Glucose (09/05/2017 1:45 PM EST) Glucose, POC 91 65 - 199 mg/dL [facility] Comment: Supplemental ranges: <140 mg/dL before meals <180 mg/dL all other times of the day Blood specimen (specimen) 09/05/2017 1:45 PM EST 09/05/2017 1:45 PM EST Arturo Waterman MD POINT OF CARE TEST O BENJYERAFRANNIE Performing Organization Address [facility]/ZIP Co de Phone Number [facility] [place] [address] * POCT Glucose (09/04/2017 11:36 PM EST) Glucose, POC 167 65 - 199 mg/dL [facility] Comment: Supplemental ranges: <140 mg/dL before meals <180 mg/dL all other times of the day Blood specimen (specimen) 09/04/2017 11:36 PM EST 09/04/2017 11:36 PM EST Arturo Waterman MD POINT OF CARE TEST O RDERAFRANNIE Performing Organization Address City/[facility]/ZIP Co de Phone Number [facility] [place] [address] * POCT Glucose (09/04/2017 4:14 PM EST) Glucose, POC 150 65 - 199 mg/dL [facility] Comment: Supplemental ranges: <140 mg/dL before meals <180 mg/dL all other times of the day Blood specimen (specimen) 09/04/2017 4:14 PM EST 09/04/2017 4:14 PM EST Arturo Waterman MD POINT OF CARE TEST O JORGE ALBERTO Performing Organization Address [facility]/ZIP Co de Phone Number [facility] [place] [address] * POCT Glucose (09/04/2017 1:29 PM EST) Glucose, POC 99 65 - 199 mg/dL [facility] Comment: Supplemental ranges: <140 mg/dL before meals <180 mg/dL all other times of the day Blood specimen (specimen) 09/04/2017 1:29 PM EST 09/04/2017 1:29 PM EST Arturo Waterman MD POINT OF CARE TEST O JORGE ALBERTO Performing Organization Address [facility] Co de Phone Number [facility] [place] [address] * POCT Glucose (09/03/2017 4:56 PM EST) Glucose, POC 138 65 - 199 mg/dL [facility] Comment: Supplemental ranges: <140 mg/dL before meals <180 mg/dL all other times of the day Blood specimen (specimen) 09/03/2017 4:56 PM EST 09/03/2017 4:56 PM EST Arturo Waterman MD POINT OF CARE TEST O JORGE ALBERTO Performing Organization Address City/[facility]/ZIP Co de Phone Number [facility] [place] [address] * POCT Glucose (09/03/2017 2:11 PM EST) Glucose, POC 92 65 - 199 mg/dL [facility] Comment: Supplemental ranges: <140 mg/dL before meals <180 mg/dL all other times of the day Blood specimen (specimen) 09/03/2017 2:11 PM EST 09/03/2017 2:11 PM EST Arturo Waterman MD POINT OF CARE TEST O RDANG Performing Organization Address [facility] Co de Phone Number [facility] [place] [address] * POCT Glucose (09/02/2017 9:34 PM EST) Glucose, POC 118 65 - 199 mg/dL [facility] Comment: Supplemental ranges: <140 mg/dL before meals <180 mg/dL all other times of the day Blood specimen (specimen) 09/02/2017 9:34 PM EST 09/02/2017 9:34 PM EST Arturo Waterman MD POINT OF CARE TEST O JORGE ALBERTO Performing Organization Address [facility] de Phone Number [facility] [place] [address] * POCT Glucose (09/02/2017 3:23 PM EST) Glucose, POC 163 65 - 199 mg/dL [facility] Comment: Supplemental ranges: <140 mg/dL before meals <180 mg/dL all other times of the day Blood specimen (specimen) 09/02/2017 3:23 PM EST 09/02/2017 3:23 PM EST Arturo Waterman MD POINT OF CARE TEST O JORGE ALBERTO Performing Organization Address [facility] Co de Phone Number [facility] [place] [address] * POCT Glucose (09/02/2017 12:33 PM EST) Glucose, POC 94 65 - 199 mg/dL [facility] Comment: Supplemental ranges: <140 mg/dL before meals <180 mg/dL all other times of the day Blood specimen (specimen) 09/02/2017 12:33 PM EST 09/02/2017 12:33 PM EST Arturo Waterman MD POINT OF CARE TEST O RDERABLES Performing Organization Address [facility]/ZIP Co de Phone Number [facility] [place] [address] * Group B Streptococcus Screen (09/02/2017 1:57 AM EST) GBS Screen Neg [facility] Pooled specimen from vaginal introitus and rectal swab (specimen) 09/02/2017 1:57 AM EST 09/02/2017 8:15 AM EST Comment:Penicillin Allergy?- >No Narrative Resulting Agency Comment Spec In Lab Arturo Waterman MD MICROBIOLOGY - GENER AL ORDERABLES Performing Organization Address [facility] Co de Phone Number [facility] [place] [address] * Group B Strep Culture Screen (09/02/2017 1:57 AM EST) Group B Streptococcus Culture No Group B Streptococci isolated [facility] Pooled specimen from vaginal introitus and rectal swab (specimen) 09/02/2017 1:57 AM EST 09/02/2017 8:15 AM EST Comment:PENICILLIN ALLERGY?- >NO Narrative Resulting Agency Comment Spec In Lab Arturo Waterman MD MICROBIOLOGY - GENER AL ORDERABLES Performing Organization Address [facility] Co de Phone Number [facility] [place] [address] * POCT Glucose (09/01/2017 7:29 PM EST) Glucose, POC 136 65 - 199 mg/dL [facility] Comment: Supplemental ranges: <140 mg/dL before meals <180 mg/dL all other times of the day Blood specimen (specimen) 09/01/2017 7:29 PM EST 09/01/2017 7:29 PM EST Arturo Waterman MD POINT OF CARE TEST O RDERABLES Performing Organization Address City/[facility]/ZIP Co de Phone Number [facility] [place] [address] * US OB Follow Up Evaluation (09/01/2017 [...] 11:19 am) PATIENT INFO: ID #: ? [id number] ?: ??[birth year] (27 yrs) Name: ? PAM Lopez ?Visit Date: 09/01/2017 10:00 am ? JAYA PERFORMED BY: Performed By: ? Ruth Ann Dixon RDMS Attending: ?Derick TAY, Li Umanzor Referred By: ?ARTURO WATERMAN Location: ? [place] SERVICE(S) PROVIDED: ??UOBFOL - Efw - Growth - [place] - [id number] ? [id number] ??UOBTV - Viability - Cervical Length -Transvaginal - ?? [id number] ??[id number] INDICATIONS: ??32 weeks gestation of ?Z3A.32 ??follow [...] 09/01/2017 11:19 am) PATIENT INFO: ID #: [id number] : [birth year] (27 yrs) Name: PAM Lopez Visit Date: 09/01/2017 10:00 am JAYA PERFORMED BY: Performed By: Ruth Ann Dixon RDMS Attending: Li Sepulveda MD Referred By: ARTURO WATERMAN Location: [place] SERVICE(S) PROVIDED: UOBFOL - Efw - Growth - [place] - [id number] UOBTV - Viability - Cervical Length -Transvaginal - [id number] INDICATIONS: 32 weeks gestation of Z3A.32 follow [...] Report 09/01/2017 11:19 am Arturo Waterman MD [facility] OB ORDERABLES * POCT Glucose (09/01/2017 8:45 AM EST) Glucose, POC 92 65 - 199 mg/dL [facility] Comment: Supplemental ranges: <140 mg/dL before meals <180 mg/dL all other times of the day Blood specimen (specimen) 09/01/2017 8:45 AM EST 09/01/2017 8:45 AM EST Arturo Waterman MD POINT OF CARE TEST O RDERABLES Performing Organization Address [facility] Co de Phone Number [facility] [place] [address] * POCT Glucose (08/31/2017 3:32 PM EST) Glucose, POC 110 65 - 199 mg/dL [facility] Comment: Supplemental ranges: <140 mg/dL before meals <180 mg/dL all other times of the day Blood specimen (specimen) 08/31/2017 3:32 PM EST 08/31/2017 3:32 PM EST Arturo Waterman MD POINT OF CARE TEST O RDERABLES Performing Organization Address [facility] de Phone Number [facility] [place] [address] * POCT Glucose (08/31/2017 8:49 AM EST) Glucose, POC 94 65 - 199 mg/dL [facility] Comment: Supplemental ranges: <140 mg/dL before meals <180 mg/dL all other times of the day Blood specimen (specimen) 08/31/2017 8:49 AM EST 08/31/2017 8:49 AM EST Arturo Waterman MD POINT OF CARE TEST O RDERAFRANNIE Performing Organization Address [facility] de Phone Number [facility] [place] [address] * POCT Glucose (08/30/2017 8:54 PM EST) Glucose, POC 130 65 - 199 mg/dL [facility] Comment: Supplemental ranges: <140 mg/dL before meals <180 mg/dL all other times of the day Blood specimen (specimen) 08/30/2017 8:54 PM EST 08/30/2017 8:54 PM EST Arturo Waterman MD POINT OF CARE TEST O RDERAFRANNIE Performing Organization Address City/[facility]/ZIP Co de Phone Number [facility] [place] [address] * POCT Glucose (08/30/2017 3:16 PM EST) Glucose, POC 121 65 - 199 mg/dL [facility] Comment: Supplemental ranges: <140 mg/dL before meals <180 mg/dL all other times of the day Blood specimen (specimen) 08/30/2017 3:16 PM EST 08/30/2017 3:16 PM EST Arturo Waterman MD POINT OF CARE TEST O RDERAFRANNIE [facility] [place] [address] * POCT Glucose (08/30/2017 12:38 PM EST) Glucose, POC 92 65 - 199 mg/dL [facility] Comment: Supplemental ranges: <140 mg/dL before meals <180 mg/dL all other times of the day Blood specimen (specimen) 08/30/2017 12:38 PM EST 08/30/2017 12:38 PM EST Arturo Waterman MD POINT OF CARE TEST O RDERAFRANNIE [facility] [place] [address] * POCT Glucose (08/29/2017 8:47 PM EST) Glucose, POC 173 65 - 199 mg/dL [facility] Comment: Supplemental ranges: <140 mg/dL before meals <180 mg/dL all other times of the day Blood specimen (specimen) 08/29/2017 8:47 PM EST 08/29/2017 8:47 PM EST Arturo Waterman MD POINT OF CARE TEST O RDERAFRANNIE [facility] [place] [address] * POCT Glucose (08/29/2017 3:31 PM EST) Glucose, POC 119 65 - 199 mg/dL [facility] Comment: Supplemental ranges: <140 mg/dL before meals <180 mg/dL all other times of the day Blood specimen (specimen) 08/29/2017 3:31 PM EST 08/29/2017 3:31 PM EST Arturo Waterman MD POINT OF CARE TEST O RDERAFRANNIE [facility] [place] [address] * POCT Glucose (08/29/2017 1:16 PM EST) Glucose, POC 98 65 - 199 mg/dL [facility] Comment: Supplemental ranges: <140 mg/dL before meals <180 mg/dL all other times of the day Blood specimen (specimen) 08/29/2017 1:16 PM EST 08/29/2017 1:16 PM EST Arturo Waterman MD POINT OF CARE TEST O RDERAFRANNIE [facility] [place] [address] * POCT Glucose (08/29/2017 9:25 AM EST) Glucose, POC 108 65 - 199 mg/dL [facility] Comment: Supplemental ranges: <140 mg/dL before meals <180 mg/dL all other times of the day Blood specimen (specimen) 08/29/2017 9:25 AM EST 08/29/2017 9:25 AM EST Arturo Waterman MD POINT OF CARE TEST O RDERAFRANNIE [facility] [place] [address] * POCT Glucose (08/28/2017 8:59 PM EST) Glucose, POC 122 65 - 199 mg/dL [facility] Comment: Supplemental ranges: <140 mg/dL before meals <180 mg/dL all other times of the day Blood specimen (specimen) 08/28/2017 8:59 PM EST 08/28/2017 8:59 PM EST Arturo Waterman MD POINT OF CARE TEST O JORGE ALBERTO [facility] [place] [address] * POCT Glucose (08/28/2017 3:45 PM EST) Glucose, POC 138 65 - 199 mg/dL [facility] Comment: Supplemental ranges: <140 mg/dL before meals <180 mg/dL all other times of the day Blood specimen (specimen) 08/28/2017 3:45 PM EST 08/28/2017 3:45 PM EST Arturo Waterman MD POINT OF CARE TEST O JORGE ALBERTO Performing Organization Address City/[facility]/ZIP Co de Phone Number [facility] [place] [address] * POCT Glucose (08/28/2017 12:23 PM EST) Glucose, POC 94 65 - 199 mg/dL [facility] Comment: Supplemental ranges: <140 mg/dL before meals <180 mg/dL all other times of the day Blood specimen (specimen) 08/28/2017 12:23 PM EST 08/28/2017 12:23 PM EST Arturo Waterman MD POINT OF CARE TEST O RDERAFRANNIE [facility] [place] [address] * POCT Glucose (08/27/2017 9:40 PM EST) Glucose, POC 134 65 - 199 mg/dL [facility] Comment: Supplemental ranges: <140 mg/dL before meals <180 mg/dL all other times of the day Blood specimen (specimen) 08/27/2017 9:40 PM EST 08/27/2017 9:40 PM EST Arturo Waterman MD POINT OF CARE TEST O RDERAFRANNIE Performing Organization Address City/[facility] Co de Phone Number [facility] [place] [address] * POCT Glucose (08/27/2017 3:08 PM EST) Glucose, POC 129 65 - 199 mg/dL [facility] Comment: Supplemental ranges: <140 mg/dL before meals <180 mg/dL all other times of the day Blood specimen (specimen) 08/27/2017 3:08 PM EST 08/27/2017 3:08 PM EST Arturo Waterman MD POINT OF CARE TEST O JORGE ALBERTO Performing Organization Address [facility] Co de Phone Number [facility] [place] [address] * POCT Glucose (08/27/2017 11:31 AM EST) Glucose, POC 91 65 - 199 mg/dL [facility] Comment: Supplemental ranges: <140 mg/dL before meals <180 mg/dL all other times of the day Blood specimen (specimen) 08/27/2017 11:31 AM EST 08/27/2017 11:31 AM EST Arturo Waterman MD POINT OF CARE TEST O RDERAFRANNIE Performing Organization Address City/[facility] Co de Phone Number [facility] [place] [address] * POCT Glucose (08/26/2017 8:00 PM EST) Glucose, POC 142 65 - 199 mg/dL [facility] Comment: Supplemental ranges: <140 mg/dL before meals <180 mg/dL all other times of the day Blood specimen (specimen) 08/26/2017 8:00 PM EST 08/26/2017 8:00 PM EST Arturo Waterman MD POINT OF CARE TEST O RDERAFRANNIE Performing Organization Address [facility] Co de Phone Number [facility] [place] [address] * POCT Glucose (08/26/2017 3:15 PM EST) Glucose, POC 105 65 - 199 mg/dL [facility] Comment: Supplemental ranges: <140 mg/dL before meals <180 mg/dL all other times of the day Blood specimen (specimen) 08/26/2017 3:15 PM EST 08/26/2017 3:15 PM EST Arturo Waterman MD POINT OF CARE TEST O BENJYERAFRANNIE Performing Organization Address [facility] Co de Phone Number [facility] [place] [address] * POCT Glucose (08/26/2017 12:29 PM EST) Glucose, POC 88 65 - 199 mg/dL [facility] Comment: Supplemental ranges: <140 mg/dL before meals <180 mg/dL all other times of the day Blood specimen (specimen) 08/26/2017 12:29 PM EST 08/26/2017 12:29 PM EST Arturo Waterman MD POINT OF CARE TEST O RDERAFRANNIE Performing Organization Address [facility] Co de Phone Number [facility] [place] [address] * POCT urine dipstick (08/26/2017) POC Sp [place] 1.005 1.002 - 1.030 POC pH, UA [...] MD POINT OF CARE TEST O RDERABLES * POCT Glucose (08/25/2017 8:45 PM EST) Glucose, POC 147 65 - 199 mg/dL [facility] Comment: Supplemental ranges: <140 mg/dL before meals <180 mg/dL all other times of the day Blood specimen (specimen) 08/25/2017 8:45 PM EST 08/25/2017 8:45 PM EST Arturo Waterman MD POINT OF CARE TEST O RDERAFRANNIE [facility] [place] [address] * POCT Glucose (08/25/2017 2:36 PM EST) Glucose, POC 133 65 - 199 mg/dL [facility] Comment: Supplemental ranges: <140 mg/dL before meals <180 mg/dL all other times of the day Blood specimen (specimen) 08/25/2017 2:36 PM EST 08/25/2017 2:36 PM EST Arturo Waterman MD POINT OF CARE TEST O RDERAFRANNIE [facility] [place] [address] * POCT Glucose (08/25/2017 12:38 PM EST) Glucose, POC 91 65 - 199 mg/dL [facility] Comment: Supplemental ranges: <140 mg/dL before meals <180 mg/dL all other times of the day Blood specimen (specimen) 08/25/2017 12:38 PM EST 08/25/2017 12:38 PM EST Arturo Waterman MD POINT OF CARE TEST O JORGE ALBERTO Performing Organization Address City/[facility]/ZIP Co de Phone Number [facility] [place] [address] * POCT Glucose (08/24/2017 8:25 PM EST) Glucose, POC 93 65 - 199 mg/dL [facility] Comment: Supplemental ranges: <140 mg/dL before meals <180 mg/dL all other times of the day Blood specimen (specimen) 08/24/2017 8:25 PM EST 08/24/2017 8:25 PM EST Arturo Waterman MD POINT OF CARE TEST O JORGE ALBERTO Performing Organization Address [facility]/ZIP Co de Phone Number [facility] [place] [address] * POCT Glucose (08/24/2017 3:13 PM EST) Glucose, POC 144 65 - 199 mg/dL [facility] Comment: Supplemental ranges: <140 mg/dL before meals <180 mg/dL all other times of the day Blood specimen (specimen) 08/24/2017 3:13 PM EST 08/24/2017 3:13 PM EST Arturo Waterman MD POINT OF CARE TEST O JORGE ALBERTO Performing Organization Address City/[facility]/ZIP Co de Phone Number [facility] [place] [address] * POCT Glucose (08/24/2017 9:58 AM EST) Glucose, POC 109 65 - 199 mg/dL [facility] Comment: Supplemental ranges: <140 mg/dL before meals <180 mg/dL all other times of the day Blood specimen (specimen) 08/24/2017 9:58 AM EST 08/24/2017 9:58 AM EST Arturo Waterman MD POINT OF CARE TEST O JORGE ALBERTO Performing Organization Address [facility] [facility] Co de Phone Number [facility] [place] [address] * POCT Glucose (08/23/2017 11:41 PM EST) Glucose, POC 102 65 - 199 mg/dL [facility] Comment: Supplemental ranges: <140 mg/dL before meals <180 mg/dL all other times of the day Blood specimen (specimen) 08/23/2017 11:41 PM EST 08/23/2017 11:41 PM EST Arturo Waterman MD POINT OF CARE TEST O JORGE ALBERTO Performing Organization Address [facility] de Phone Number [facility] [place] [address] * POCT Glucose (08/23/2017 3:33 PM EST) Glucose, POC 128 65 - 199 mg/dL [facility] Comment: Supplemental ranges: <140 mg/dL before meals <180 mg/dL all other times of the day Blood specimen (specimen) 08/23/2017 3:33 PM EST 08/23/2017 3:33 PM EST Arturo Waterman MD POINT OF CARE TEST O JORGE ALBERTO Performing Organization Address [facility] Co de Phone Number [facility] [place] [address] * POCT Glucose (08/23/2017 11:37 AM EST) Glucose, POC 124 65 - 199 mg/dL [facility] Comment: Supplemental ranges: <140 mg/dL before meals <180 mg/dL all other times of the day Blood specimen (specimen) 08/23/2017 11:37 AM EST 08/23/2017 11:37 AM EST Arturo Waterman MD POINT OF CARE TEST O RDERAFRANNIE Performing Organization Address [facility]/ZIP Co de Phone Number [facility] [place] [address] * POCT Glucose (08/23/2017 9:44 AM EST) Glucose, POC 107 65 - 199 mg/dL [facility] Comment: Supplemental ranges: <140 mg/dL before meals <180 mg/dL all other times of the day Blood specimen (specimen) 08/23/2017 9:44 AM EST 08/23/2017 9:44 AM EST Arturo Waterman MD POINT OF CARE TEST O BENJYERAFRANNIE Performing Organization Address [facility] Co de Phone Number [facility] [place] [address] * POCT Glucose (08/22/2017 8:18 PM EST) Glucose, POC 111 65 - 199 mg/dL [facility] Comment: Supplemental ranges: <140 mg/dL before meals <180 mg/dL all other times of the day Blood specimen (specimen) 08/22/2017 8:18 PM EST 08/22/2017 8:18 PM EST Arturo Waterman MD POINT OF CARE TEST O JORGE ALBERTO Performing Organization Address [facility] Co de Phone Number [facility] [place] [address] * POCT Glucose (08/22/2017 2:28 PM EST) Glucose, POC 158 65 - 199 mg/dL [facility] Comment: Supplemental ranges: <140 mg/dL before meals <180 mg/dL all other times of the day Blood specimen (specimen) 08/22/2017 2:28 PM EST 08/22/2017 2:28 PM EST Arturo Waterman MD POINT OF CARE TEST O RDERABLES Performing Organization Address [facility] Co de Phone Number [facility] [place] [address] * POCT Glucose (08/22/2017 12:39 PM EST) Glucose, POC 83 65 - 199 mg/dL [facility] Comment: Supplemental ranges: <140 mg/dL before meals <180 mg/dL all other times of the day Blood specimen (specimen) 08/22/2017 12:39 PM EST 08/22/2017 12:39 PM EST Arturo Waterman MD POINT OF CARE TEST O RDERAFRANNIE Performing Organization Address [facility] Co de Phone Number [facility] [place] [address] * POCT Glucose (08/21/2017 7:53 PM EST) Glucose, POC 105 65 - 199 mg/dL [facility] Comment: Supplemental ranges: <140 mg/dL before meals <180 mg/dL all other times of the day Blood specimen (specimen) 08/21/2017 7:53 PM EST 08/21/2017 7:53 PM EST Arturo Waterman MD POINT OF CARE TEST O RDERAFRANNIE Performing Organization Address [facility] Co de Phone Number [facility] [place] [address] * POCT Glucose (08/21/2017 2:42 PM EST) Glucose, POC 130 65 - 199 mg/dL [facility] Comment: Supplemental ranges: <140 mg/dL before meals <180 mg/dL all other times of the day Blood specimen (specimen) 08/21/2017 2:42 PM EST 08/21/2017 2:42 PM EST Arturo Waterman MD POINT OF CARE TEST O RDERAFRANNIE [facility] [place] [address] * POCT Glucose (08/21/2017 9:07 AM EST) Glucose, POC 73 65 - 199 mg/dL [facility] Comment: Supplemental ranges: <140 mg/dL before meals <180 mg/dL all other times of the day Blood specimen (specimen) 08/21/2017 9:07 AM EST 08/21/2017 9:07 AM EST Arturo Waterman MD POINT OF CARE TEST O RDERABLES Performing Organization Address City/[facility]/ZIP Co de Phone Number [facility] [place] [address] * POCT Glucose (08/20/2017 7:30 PM EST) Glucose, POC 162 65 - 199 mg/dL [facility] Comment: Supplemental ranges: <140 mg/dL before meals <180 mg/dL all other times of the day Blood specimen (specimen) 08/20/2017 7:30 PM EST 08/20/2017 7:30 PM EST Arturo Waterman MD POINT OF CARE TEST O RDERABLES Performing Organization Address [facility]/ZIP Co de Phone Number [facility] [place] [address] * POCT Glucose (08/20/2017 1:54 PM EST) Glucose, POC 187 65 - 199 mg/dL [facility] Comment: Supplemental ranges: <140 mg/dL before meals <180 mg/dL all other times of the day Blood specimen (specimen) 08/20/2017 1:54 PM EST 08/20/2017 1:54 PM EST Arturo Waterman MD POINT OF CARE TEST O RDERABLES [facility] [place] [address] * POCT Glucose (08/20/2017 9:04 AM EST) Glucose, POC 158 65 - 199 mg/dL [facility] Comment: Supplemental ranges: <140 mg/dL before meals <180 mg/dL all other times of the day Blood specimen (specimen) 08/20/2017 9:04 AM EST 08/20/2017 9:04 AM EST Arturo Waterman MD POINT OF CARE TEST O RDERABLES [facility] [place] [address] * POCT Glucose (08/19/2017 8:24 PM EST) Glucose, POC 141 65 - 199 mg/dL [facility] Comment: Supplemental ranges: <140 mg/dL before meals <180 mg/dL all other times of the day Blood specimen (specimen) 08/19/2017 8:24 PM EST 08/19/2017 8:24 PM EST Arturo Waterman MD POINT OF CARE TEST O RDERABLES Performing Organization Address City/[facility]/ZIP Co de Phone Number [facility] [place] [address] * POCT Glucose (08/19/2017 4:01 PM EST) Glucose, POC 157 65 - 199 mg/dL [facility] Comment: Supplemental ranges: <140 mg/dL before meals <180 mg/dL all other times of the day Blood specimen (specimen) 08/19/2017 4:01 PM EST 08/19/2017 4:01 PM EST Arturo Waterman MD POINT OF CARE TEST O RDERABLES [facility] [place] [address] * POCT Glucose (08/19/2017 9:55 AM EST) Glucose, POC 127 65 - 199 mg/dL [facility] Comment: Supplemental ranges: <140 mg/dL before meals <180 mg/dL all other times of the day Blood specimen (specimen) 08/19/2017 9:55 AM EST 08/19/2017 9:55 AM EST Arturo Waterman MD POINT OF CARE TEST O JORGE ALBERTO [facility] [place] [address] * POCT Glucose (08/18/2017 11:52 PM EST) Glucose, POC 179 65 - 199 mg/dL [facility] Comment: Supplemental ranges: <140 mg/dL before meals <180 mg/dL all other times of the day Blood specimen (specimen) 08/18/2017 11:52 PM EST 08/18/2017 11:52 PM EST Arturo Waterman MD POINT OF CARE TEST O JORGE ALBERTO Performing Organization Address City/[facility]/ZIP Co de Phone Number [facility] [place] [address] * POCT Glucose (08/18/2017 7:38 PM EST) Glucose, POC 153 65 - 199 mg/dL [facility] Comment: Supplemental ranges: <140 mg/dL before meals <180 mg/dL all other times of the day Blood specimen (specimen) 08/18/2017 7:38 PM EST 08/18/2017 7:38 PM EST Arturo Waterman MD POINT OF CARE TEST O JORGE ALBERTO [facility] [place] [address] * POCT Glucose (08/18/2017 3:42 PM EST) Glucose, POC 93 65 - 199 mg/dL [facility] Comment: Supplemental ranges: <140 mg/dL before meals <180 mg/dL all other times of the day Blood specimen (specimen) 08/18/2017 3:42 PM EST 08/18/2017 3:42 PM EST Arturo Waterman MD POINT OF CARE TEST O RDERAFRANNIE Performing Organization Address City/[facility]/ZIP Co de Phone Number [facility] [place] [address] * POCT Glucose (08/18/2017 8:43 AM EST) Glucose, POC 72 65 - 199 mg/dL [facility] Comment: Supplemental ranges: <140 mg/dL before meals <180 mg/dL all other times of the day Blood specimen (specimen) 08/18/2017 8:43 AM EST 08/18/2017 8:43 AM EST Arturo Waterman MD POINT OF CARE TEST O JORGE ALBERTO Performing Organization Address [facility] Co de Phone Number [facility] [place] [address] * POCT Glucose (08/17/2017 8:22 PM EST) Glucose, POC 104 65 - 199 mg/dL [facility] Comment: Supplemental ranges: <140 mg/dL before meals <180 mg/dL all other times of the day Blood specimen (specimen) 08/17/2017 8:22 PM EST 08/17/2017 8:22 PM EST Arturo Waterman MD POINT OF CARE TEST O RDERAFRANNIE Performing Organization Address City/[facility] Co de Phone Number [facility] [place] [address] * POCT Glucose (08/17/2017 1:37 PM EST) Glucose, POC 167 65 - 199 mg/dL [facility] Comment: Supplemental ranges: <140 mg/dL before meals <180 mg/dL all other times of the day Blood specimen (specimen) 08/17/2017 1:37 PM EST 08/17/2017 1:37 PM EST Arturo Waterman MD POINT OF CARE TEST O RDERABLES [facility] [place] [address] * POCT Glucose (08/17/2017 12:04 PM EST) Glucose, POC 81 65 - 199 mg/dL [facility] Comment: Supplemental ranges: <140 mg/dL before meals <180 mg/dL all other times of the day Blood specimen (specimen) 08/17/2017 12:04 PM EST 08/17/2017 12:04 PM EST Arturo Waterman MD POINT OF CARE TEST O BENJYERAFRANNIE Performing Organization Address [facility]/ZIP Co de Phone Number [facility] [place] [address] * POCT Glucose (08/16/2017 6:52 PM EST) Glucose, POC 128 65 - 199 mg/dL [facility] Comment: Supplemental ranges: <140 mg/dL before meals <180 mg/dL all other times of the day Blood specimen (specimen) 08/16/2017 6:52 PM EST 08/16/2017 6:52 PM EST Arturo Waterman MD POINT OF CARE TEST O RDERAFRANNIE Performing Organization Address City/[facility]/ZIP Co de Phone Number [facility] [place] [address] * POCT Glucose (08/16/2017 12:08 PM EST) Glucose, POC 98 65 - 199 mg/dL [facility] Comment: Supplemental ranges: <140 mg/dL before meals <180 mg/dL all other times of the day Blood specimen (specimen) 08/16/2017 12:08 PM EST 08/16/2017 12:08 PM EST Arturo Waterman MD POINT OF CARE TEST O JORGE ALBERTO Performing Organization Address City/[facility]/ZIP Co de Phone Number [facility] [place] [address] * POCT Glucose (08/16/2017 10:15 AM EST) Glucose, POC 90 65 - 199 mg/dL [facility] Comment: Supplemental ranges: <140 mg/dL before meals <180 mg/dL all other times of the day Blood specimen (specimen) 08/16/2017 10:15 AM EST 08/16/2017 10:15 AM EST Arturo Waterman MD POINT OF CARE TEST O JORGE ALBERTO Performing Organization Address [facility]/ZIP Co de Phone Number [facility] [place] [address] * POCT Glucose (08/15/2017 8:24 PM EST) Glucose, POC 121 65 - 199 mg/dL [facility] Comment: Supplemental ranges: <140 mg/dL before meals <180 mg/dL all other times of the day Blood specimen (specimen) 08/15/2017 8:24 PM EST 08/15/2017 8:24 PM EST Arturo Waterman MD POINT OF CARE TEST O BENJYERAFRANNIE Performing Organization Address City/[facility]/ZIP Co de Phone Number [facility] [place] [address] * POCT Glucose (08/15/2017 3:44 PM EST) Glucose, POC 129 65 - 199 mg/dL [facility] Comment: Supplemental ranges: <140 mg/dL before meals <180 mg/dL all other times of the day Blood specimen (specimen) 08/15/2017 3:44 PM EST 08/15/2017 3:44 PM EST Arturo Waterman MD POINT OF CARE TEST O JORGE ALBERTO Performing Organization Address [facility] Co de Phone Number [facility] [place] [address] * POCT Glucose (08/15/2017 12:19 PM EST) Glucose, POC 91 65 - 199 mg/dL [facility] Comment: Supplemental ranges: <140 mg/dL before meals <180 mg/dL all other times of the day Blood specimen (specimen) 08/15/2017 12:19 PM EST 08/15/2017 12:19 PM EST Arturo Waterman MD POINT OF CARE TEST O JORGE ALBERTO Performing Organization Address [facility] Co de Phone Number [facility] [place] [address] * POCT Glucose (08/14/2017 8:37 PM EST) Glucose, POC 133 65 - 199 mg/dL [facility] Comment: Supplemental ranges: <140 mg/dL before meals <180 mg/dL all other times of the day Blood specimen (specimen) 08/14/2017 8:37 PM EST 08/14/2017 8:37 PM EST Arturo Waterman MD POINT OF CARE TEST O JORGE ALBERTO Performing Organization Address [facility] Co de Phone Number [facility] [place] [address] * POCT Glucose (08/14/2017 11:47 AM EST) Glucose, POC 76 65 - 199 mg/dL [facility] Comment: Supplemental ranges: <140 mg/dL before meals <180 mg/dL all other times of the day Blood specimen (specimen) 08/14/2017 11:47 AM EST 08/14/2017 11:47 AM EST Arturo Waterman MD POINT OF CARE TEST O RDERAFRANNIE Performing Organization Address [facility] Co de Phone Number [facility] [place] [address] * POCT Glucose (08/13/2017 8:05 PM EST) Glucose, POC 121 65 - 199 mg/dL [facility] Comment: Supplemental ranges: <140 mg/dL before meals <180 mg/dL all other times of the day Blood specimen (specimen) 08/13/2017 8:05 PM EST 08/13/2017 8:05 PM EST Arturo Waterman MD POINT OF CARE TEST O JORGE ALBERTO Performing Organization Address [facility] de Phone Number [facility] [place] [address] * POCT Glucose (08/13/2017 2:37 PM EST) Glucose, POC 144 65 - 199 mg/dL [facility] Comment: Supplemental ranges: <140 mg/dL before meals <180 mg/dL all other times of the day Blood specimen (specimen) 08/13/2017 2:37 PM EST 08/13/2017 2:37 PM EST Arturo Waterman MD POINT OF CARE TEST O JORGE ALBERTO Performing Organization Address [facility] Co de Phone Number [facility] [place] [address] * POCT Glucose (08/13/2017 12:52 PM EST) Glucose, POC 76 65 - 199 mg/dL [facility] Comment: Supplemental ranges: <140 mg/dL before meals <180 mg/dL all other times of the day Blood specimen (specimen) 08/13/2017 12:52 PM EST 08/13/2017 12:52 PM EST Arturo Waterman MD POINT OF CARE TEST O RDERABLES Performing Organization Address [facility] Co de Phone Number [facility] [place] [address] * POCT Glucose (08/12/2017 8:33 PM EST) Glucose, POC 129 65 - 199 mg/dL [facility] Comment: Supplemental ranges: <140 mg/dL before meals <180 mg/dL all other times of the day Blood specimen (specimen) 08/12/2017 8:33 PM EST 08/12/2017 8:33 PM EST Arturo Waterman MD POINT OF CARE TEST O RDERAFRANNIE Performing Organization Address [facility] Co de Phone Number [facility] [place] [address] * POCT Glucose (08/12/2017 2:03 PM EST) Glucose, POC 119 65 - 199 mg/dL [facility] Comment: Supplemental ranges: <140 mg/dL before meals <180 mg/dL all other times of the day Blood specimen (specimen) 08/12/2017 2:03 PM EST 08/12/2017 2:03 PM EST Arturo Waterman MD POINT OF CARE TEST O RDERAFRANNIE Performing Organization Address [facility] Co de Phone Number [facility] [place] [address] * POCT Glucose (08/12/2017 11:43 AM EST) Glucose, POC 98 65 - 199 mg/dL [facility] Comment: Supplemental ranges: <140 mg/dL before meals <180 mg/dL all other times of the day Blood specimen (specimen) 08/12/2017 11:43 AM EST 08/12/2017 11:43 AM EST Arturo Waterman MD POINT OF CARE TEST O RDERABLES Performing Organization Address City/[facility]/ZIP Co de Phone Number [facility] [place] [address] * POCT Glucose (08/11/2017 7:58 PM EST) Glucose, POC 120 65 - 199 mg/dL [facility] Comment: Supplemental ranges: <140 mg/dL before meals <180 mg/dL all other times of the day Blood specimen (specimen) 08/11/2017 7:58 PM EST 08/11/2017 7:58 PM EST Arturo Waterman MD POINT OF CARE TEST O RDERABLES Performing Organization Address [facility] Co de Phone Number [facility] [place] [address] * POCT Glucose (08/11/2017 11:20 AM EST) Glucose, POC 95 65 - 199 mg/dL [facility] Comment: Supplemental ranges: <140 mg/dL before meals <180 mg/dL all other times of the day Blood specimen (specimen) 08/11/2017 11:20 AM EST 08/11/2017 11:20 AM EST Arturo Waterman MD POINT OF CARE TEST O RDERABLES Performing Organization Address [facility] Co de Phone Number [facility] [place] [address] * POCT Glucose (08/11/2017 10:08 AM EST) Glucose, POC 102 65 - 199 mg/dL [facility] Comment: Supplemental ranges: <140 mg/dL before meals <180 mg/dL all other times of the day Blood specimen (specimen) 08/11/2017 10:08 AM EST 08/11/2017 10:08 AM EST Arturo aWterman MD POINT OF CARE TEST O RDERABLES [facility] [place] [address] * US OB Follow Up Evaluation (08/11/2017 [...] 10:10 am) PATIENT INFO: ID #: ? [id number] ?: ??[birth year] (27 yrs) Name: ? PAM Jessica ?Visit Date: 08/11/2017 09:26 am ? JAYA PERFORMED BY: Performed By: ? Dhara Hicks RDMS Attending: ?Sandoval TAY, Emanuel Garcia Referred By: ?EMANUEL BARRETT Location: ? [place] SERVICE(S) PROVIDED: ??UOBFOL - Efw - Growth - [place] - [id number] ? [id number] ??UOBTV - Viability - Cervical Length -Transvaginal - ?? [id number] ??[id number] INDICATIONS: ??29 weeks gestation of ?Z3A.29 ??26 [...] FL/AC: ? 23.2 ??% ? 20 - Est. FW: ?1349 ?? gm ?3 lb [...] 08/11/2017 10:10 am) PATIENT INFO: ID #: [id number] : [birth year] (27 yrs) Name: PAM Lopez Visit Date: 08/11/2017 09:26 am JAYA PERFORMED BY: Performed By: Dhara Hicks RDMS Attending: Emanuel Barrett MD Referred By: EMANUEL BARRETT Location: [place] SERVICE(S) PROVIDED: UOBFOL - Efw - Growth - [place] - [id number] UOBTV - Viability - Cervical Length -Transvaginal - [id number] INDICATIONS: 29 weeks gestation of Z3A.29 26 [...] * POCT Glucose (08/10/2017 6:41 PM EST) Glucose, POC 141 65 - 199 mg/dL [facility] Comment: Supplemental ranges: <140 mg/dL before meals <180 mg/dL all other times of the day Blood specimen (specimen) 08/10/2017 6:41 PM EST 08/10/2017 6:41 PM EST Arturo Waterman MD POINT OF CARE TEST O JORGE ALBERTO [facility] [place] [address] * POCT Glucose (08/10/2017 1:11 PM EST) Glucose, POC 150 65 - 199 mg/dL [facility] Comment: Supplemental ranges: <140 mg/dL before meals <180 mg/dL all other times of the day Blood specimen (specimen) 08/10/2017 1:11 PM EST 08/10/2017 1:11 PM EST Arturo Waterman MD POINT OF CARE TEST O RDERAFRANNIE [facility] [place] [address] * POCT Glucose (08/10/2017 11:40 AM EST) Glucose, POC 95 65 - 199 mg/dL [facility] Comment: Supplemental ranges: <140 mg/dL before meals <180 mg/dL all other times of the day Blood specimen (specimen) 08/10/2017 11:40 AM EST 08/10/2017 11:40 AM EST Arturo Waterman MD POINT OF CARE TEST O RDERAFRANNIE [facility] [place] [address] * POCT Glucose (08/09/2017 6:58 PM EST) Glucose, POC 139 65 - 199 mg/dL [facility] Comment: Supplemental ranges: <140 mg/dL before meals <180 mg/dL all other times of the day Blood specimen (specimen) 08/09/2017 6:58 PM EST 08/09/2017 6:58 PM EST Arturo Waterman MD POINT OF CARE TEST O RDERABLES [facility] [place] [address] * POCT Glucose (08/09/2017 10:58 AM EST) Glucose, POC 97 65 - 199 mg/dL [facility] Comment: Supplemental ranges: <140 mg/dL before meals <180 mg/dL all other times of the day Blood specimen (specimen) 08/09/2017 10:58 AM EST 08/09/2017 10:58 AM EST Arturo Waterman MD POINT OF CARE TEST O RDERAFRANNIE [facility] [place] [address] * POCT Glucose (08/08/2017 9:51 PM EST) Glucose, POC 140 65 - 199 mg/dL [facility] Comment: Supplemental ranges: <140 mg/dL before meals <180 mg/dL all other times of the day Blood specimen (specimen) 08/08/2017 9:51 PM EST 08/08/2017 9:51 PM EST Arturo Waterman MD POINT OF CARE TEST O RDERAFRANNIE [facility] [place] [address] * POCT Glucose (08/08/2017 2:09 PM EST) Glucose, POC 138 65 - 199 mg/dL [facility] Comment: Supplemental ranges: <140 mg/dL before meals <180 mg/dL all other times of the day Blood specimen (specimen) 08/08/2017 2:09 PM EST 08/08/2017 2:09 PM EST Arturo Waterman MD POINT OF CARE TEST O RDERAFRANNIE [facility] [place] [address] * POCT Glucose (08/08/2017 11:56 AM EST) Glucose, POC 85 65 - 199 mg/dL [facility] Comment: Supplemental ranges: <140 mg/dL before meals <180 mg/dL all other times of the day Blood specimen (specimen) 08/08/2017 11:56 AM EST 08/08/2017 11:56 AM EST Arturo Waterman MD POINT OF CARE TEST O RDANG [facility] [place] [address] * POCT Glucose (08/07/2017 9:41 PM EST) Glucose, POC 113 65 - 199 mg/dL [facility] Comment: Supplemental ranges: <140 mg/dL before meals <180 mg/dL all other times of the day Blood specimen (specimen) 08/07/2017 9:41 PM EST 08/07/2017 9:41 PM EST Arturo Waterman MD POINT OF CARE TEST O JORGE ALBERTO Performing Organization Address [facility] [place]/ZIP Co de Phone Number [facility] [place] [address] * POCT Glucose (08/07/2017 3:04 PM EST) Glucose, POC 152 65 - 199 mg/dL [facility] Comment: Supplemental ranges: <140 mg/dL before meals <180 mg/dL all other times of the day Blood specimen (specimen) 08/07/2017 3:04 PM EST 08/07/2017 3:04 PM EST Arturo Waterman MD POINT OF CARE TEST O RDERAFRANNIE Performing Organization Address City/[facility] [place]/ZIP Co de Phone Number [facility] [place] [address] * POCT Glucose (08/07/2017 10:04 AM EST) Glucose, POC 87 65 - 199 mg/dL [facility] Comment: Supplemental ranges: <140 mg/dL before meals <180 mg/dL all other times of the day Blood specimen (specimen) 08/07/2017 10:04 AM EST 08/07/2017 10:04 AM EST Arturo Waterman MD POINT OF CARE TEST O RDERAFRANNIE Performing Organization Address City/[facility] [place]/[facility] Co de Phone Number [facility] [place] [address] * POCT Glucose (08/06/2017 8:30 PM EST) Glucose, POC 118 65 - 199 mg/dL [facility] Comment: Supplemental ranges: <140 mg/dL before meals <180 mg/dL all other times of the day Blood specimen (specimen) 08/06/2017 8:30 PM EST 08/06/2017 8:30 PM EST Artruo Waterman MD POINT OF CARE TEST O BENJYERAFRANNIE Performing Organization Address [facility] [place]/[facility] Co de Phone Number [facility] [place] [address] * POCT Glucose (08/06/2017 3:20 PM EST) Glucose, POC 146 65 - 199 mg/dL [facility] Comment: Supplemental ranges: <140 mg/dL before meals <180 mg/dL all other times of the day Blood specimen (specimen) 08/06/2017 3:20 PM EST 08/06/2017 3:20 PM EST Arturo Waterman MD POINT OF CARE TEST O RDERAFRANNIE Performing Organization Address City/[facility] [place]/[facility] Co de Phone Number [facility] [place] [address] * POCT Glucose (08/06/2017 11:50 AM EST) Glucose, POC 136 65 - 199 mg/dL [facility] Comment: Supplemental ranges: <140 mg/dL before meals <180 mg/dL all other times of the day Blood specimen (specimen) 08/06/2017 11:50 AM EST 08/06/2017 11:50 AM EST Arturo Waterman MD POINT OF CARE TEST O RDERAFRANNIE Performing Organization Address City/[facility] [place]/ZIP Co de Phone Number [facility] [place] [address] * POCT Glucose (08/06/2017 9:55 AM EST) Glucose, POC 89 65 - 199 mg/dL [facility] Comment: Supplemental ranges: <140 mg/dL before meals <180 mg/dL all other times of the day Blood specimen (specimen) 08/06/2017 9:55 AM EST 08/06/2017 9:55 AM EST Arturo Waterman MD POINT OF CARE TEST O RDERAFRANNIE Performing Organization Address [facility] [place]/ZIP Co de Phone Number [facility] [place] [address] * POCT Glucose (08/05/2017 7:59 PM EST) Glucose, POC 102 65 - 199 mg/dL [facility] Comment: Supplemental ranges: <140 mg/dL before meals <180 mg/dL all other times of the day Blood specimen (specimen) 08/05/2017 7:59 PM EST 08/05/2017 7:59 PM EST Arturo Waterman MD POINT OF CARE TEST O RDERAFRANNIE Performing Organization Address City/[facility] [place]/ZIP Co de Phone Number [facility] [place] [address] * POCT Glucose (08/05/2017 11:33 AM EST) Glucose, POC 140 65 - 199 mg/dL [facility] Comment: Supplemental ranges: <140 mg/dL before meals <180 mg/dL all other times of the day Blood specimen (specimen) 08/05/2017 11:33 AM EST 08/05/2017 11:33 AM EST Arturo Waterman MD POINT OF CARE TEST O RDERAFRANNIE [facility] [place] [address] * POCT Glucose (08/05/2017 7:36 AM EST) Glucose, POC 83 65 - 199 mg/dL [facility] Comment: Supplemental ranges: <140 mg/dL before meals <180 mg/dL all other times of the day Blood specimen (specimen) 08/05/2017 7:36 AM EST 08/05/2017 7:36 AM EST Arturo Waterman MD POINT OF CARE TEST O JORGE ALBERTO Performing Organization Address [facility] [place]/[facility] Co de Phone Number [facility] [place] [address] * POCT Glucose (08/04/2017 8:27 PM EST) Glucose, POC 116 65 - 199 mg/dL [facility] Comment: Supplemental ranges: <140 mg/dL before meals <180 mg/dL all other times of the day Blood specimen (specimen) 08/04/2017 8:27 PM EST 08/04/2017 8:27 PM EST Arturo Waterman MD POINT OF CARE TEST O RDERAFRANNIE Performing Organization Address City/[facility] [place]/ZIP Co de Phone Number [facility] [place] [address] * POCT Glucose (08/04/2017 7:25 PM EST) Glucose, POC 169 65 - 199 mg/dL [facility] Comment: Supplemental ranges: <140 mg/dL before meals <180 mg/dL all other times of the day Blood specimen (specimen) 08/04/2017 7:25 PM EST 08/04/2017 7:25 PM EST Arturo Waterman MD POINT OF CARE TEST O JORGE ALBERTO Performing Organization Address [facility] [place]/[facility] Co de Phone Number [facility] [place] [address] * POCT Glucose (08/04/2017 3:04 PM EST) Glucose, POC 122 65 - 199 mg/dL [facility] Comment: Supplemental ranges: <140 mg/dL before meals <180 mg/dL all other times of the day Blood specimen (specimen) 08/04/2017 3:04 PM EST 08/04/2017 3:04 PM EST Arturo Waterman MD POINT OF CARE TEST O JORGE ALBERTO Performing Organization Address [facility] [place]/[facility] Co de Phone Number [facility] [place] [address] * POCT Glucose (08/04/2017 10:59 AM EST) Glucose, POC 106 65 - 199 mg/dL [facility] Comment: Supplemental ranges: <140 mg/dL before meals <180 mg/dL all other times of the day Blood specimen (specimen) 08/04/2017 10:59 AM EST 08/04/2017 10:59 AM EST Arturo Waterman MD POINT OF CARE TEST O JORGE ALBERTO Performing Organization Address [facility] [place]/[facility] Co de Phone Number [facility] [place] [address] * POCT Glucose (08/04/2017 9:06 AM EST) Glucose, POC 85 65 - 199 mg/dL [facility] Comment: Supplemental ranges: <140 mg/dL before meals <180 mg/dL all other times of the day Blood specimen (specimen) 08/04/2017 9:06 AM EST 08/04/2017 9:06 AM EST Arturo Waterman MD POINT OF CARE TEST O RDERABLES Performing Organization Address [facility] [place]/[facility] Co de Phone Number [facility] [place] [address] * POCT Glucose (08/03/2017 7:24 PM EST) Glucose, POC 118 65 - 199 mg/dL [facility] Comment: Supplemental ranges: <140 mg/dL before meals <180 mg/dL all other times of the day Blood specimen (specimen) 08/03/2017 7:24 PM EST 08/03/2017 7:24 PM EST Arturo Waterman MD POINT OF CARE TEST O JORGE ALBERTO Performing Organization Address [facility] [place]/[facility] Co de Phone Number [facility] [place] [address] * POCT Glucose (08/03/2017 11:22 AM EST) Glucose, POC 106 65 - 199 mg/dL [facility] Comment: Supplemental ranges: <140 mg/dL before meals <180 mg/dL all other times of the day Blood specimen (specimen) 08/03/2017 11:22 AM EST 08/03/2017 11:22 AM EST Li Sepulveda MD POINT OF CARE TEST O JORGE ALBERTO Performing Organization Address [facility] [place]/[facility] Co de Phone Number [facility] [place] [address] * POCT Glucose (08/03/2017 8:52 AM EST) Glucose, POC 86 65 - 199 mg/dL [facility] Comment: Supplemental ranges: <140 mg/dL before meals <180 mg/dL all other times of the day Blood specimen (specimen) 08/03/2017 8:52 AM EST 08/03/2017 8:52 AM EST Li Sepulveda MD POINT OF CARE TEST O RDERABLES Performing Organization Address [facility] [place]/[facility] Co de Phone Number [facility] [place] [address] * POCT Glucose (08/02/2017 6:59 PM EST) Glucose, POC 141 65 - 199 mg/dL [facility] Comment: Supplemental ranges: <140 mg/dL before meals <180 mg/dL all other times of the day Blood specimen (specimen) 08/02/2017 6:59 PM EST 08/02/2017 6:59 PM EST Li Sepulveda MD POINT OF CARE TEST O RDANG Performing Organization Address [facility] [place]/[facility] de Phone Number [facility] [place] [address] * POCT Glucose (08/02/2017 3:42 PM EST) Glucose, POC 138 65 - 199 mg/dL [facility] Comment: Supplemental ranges: <140 mg/dL before meals <180 mg/dL all other times of the day Blood specimen (specimen) 08/02/2017 3:42 PM EST 08/02/2017 3:42 PM EST Li Sepulveda MD POINT OF CARE TEST O RDERAFRANNIE Performing Organization Address [facility] [place]/[facility] Co de Phone Number [facility] [place] [address] * POCT Glucose (08/02/2017 11:58 AM EST) Glucose, POC 128 65 - 199 mg/dL [facility] Comment: Supplemental ranges: <140 mg/dL before meals <180 mg/dL all other times of the day Blood specimen (specimen) 08/02/2017 11:58 AM EST 08/02/2017 11:58 AM EST Li Sepulveda MD POINT OF CARE TEST O RDANG Performing Organization Address [facility] [place]/ZIP Co de Phone Number [facility] [place] [address] * POCT Glucose (08/02/2017 8:01 AM EST) Glucose, POC 81 65 - 199 mg/dL [facility] Comment: Supplemental ranges: <140 mg/dL before meals <180 mg/dL all other times of the day Blood specimen (specimen) 08/02/2017 8:01 AM EST 08/02/2017 8:01 AM EST Li Sepulveda MD POINT OF CARE TEST O RDERABLES [facility] [place] [address] * POCT Glucose (08/01/2017 7:58 PM EST) Glucose, POC 102 65 - 199 mg/dL [facility] Comment: Supplemental ranges: <140 mg/dL before meals <180 mg/dL all other times of the day Blood specimen (specimen) 08/01/2017 7:58 PM EST 08/01/2017 7:58 PM EST Li Sepulveda MD POINT OF CARE TEST O RDERAFRANNIE [facility] [place] [address] * POCT Glucose (08/01/2017 3:29 PM EST) Glucose, POC 124 65 - 199 mg/dL [facility] Comment: Supplemental ranges: <140 mg/dL before meals <180 mg/dL all other times of the day Blood specimen (specimen) 08/01/2017 3:29 PM EST 08/01/2017 3:29 PM EST Li Sepulveda MD POINT OF CARE TEST O RDERABLES [facility] [place] [address] * POCT Glucose (08/01/2017 10:57 AM EST) Glucose, POC 104 65 - 199 mg/dL [facility] Comment: Supplemental ranges: <140 mg/dL before meals <180 mg/dL all other times of the day Blood specimen (specimen) 08/01/2017 10:57 AM EST 08/01/2017 10:57 AM EST Li Sepulveda MD POINT OF CARE TEST O RDERAFRANNIE [facility] [place] [address] * POCT Glucose (08/01/2017 6:08 AM EST) Glucose, POC 114 65 - 199 mg/dL [facility] Comment: Supplemental ranges: <140 mg/dL before meals <180 mg/dL all other times of the day Blood specimen (specimen) 08/01/2017 6:08 AM EST 08/01/2017 6:08 AM EST Li Sepulveda MD POINT OF CARE TEST O JORGE ALBERTO Performing Organization Address City/[facility] [place]/ZIP Co de Phone Number [facility] [place] [address] * POCT Glucose (07/31/2017 7:38 PM EST) Glucose, POC 129 65 - 199 mg/dL [facility] Comment: Supplemental ranges: <140 mg/dL before meals <180 mg/dL all other times of the day Blood specimen (specimen) 07/31/2017 7:38 PM EST 07/31/2017 7:38 PM EST Li Sepulveda MD POINT OF CARE TEST O JORGE ALBERTO [facility] [place] [address] * POCT Glucose (07/31/2017 4:34 PM EST) Glucose, POC 152 65 - 199 mg/dL [facility] Comment: Supplemental ranges: <140 mg/dL before meals <180 mg/dL all other times of the day Blood specimen (specimen) 07/31/2017 4:34 PM EST 07/31/2017 4:34 PM EST Li Sepulveda MD POINT OF CARE TEST O RDERAFRANNIE [facility] [place] [address] * POCT Glucose (07/31/2017 2:10 PM EST) Glucose, POC 89 65 - 199 mg/dL [facility] Comment: Supplemental ranges: <140 mg/dL before meals <180 mg/dL all other times of the day Blood specimen (specimen) 07/31/2017 2:10 PM EST 07/31/2017 2:10 PM EST Li Sepulveda MD POINT OF CARE TEST O JORGE ALBERTO Performing Organization Address City/[facility] [place]/ZIP Co de Phone Number [facility] [place] [address] * POCT Glucose (07/31/2017 11:09 AM EST) Glucose, POC 152 65 - 199 mg/dL [facility] Comment: Supplemental ranges: <140 mg/dL before meals <180 mg/dL all other times of the day Blood specimen (specimen) 07/31/2017 11:09 AM EST 07/31/2017 11:09 AM EST Li Sepulveda MD POINT OF CARE TEST O RDERAFRANNIE [facility] [place] [address] * POCT Glucose (07/31/2017 6:15 AM EST) Glucose, POC 95 65 - 199 mg/dL [facility] Comment: Supplemental ranges: <140 mg/dL before meals <180 mg/dL all other times of the day Blood specimen (specimen) 07/31/2017 6:15 AM EST 07/31/2017 6:15 AM EST Li Sepulveda MD POINT OF CARE TEST O RDERAFRANNIE Performing Organization Address [facility] [place]/[facility] Co de Phone Number [facility] [place] [address] * POCT Glucose (07/31/2017 2:19 AM EST) Glucose, POC 127 65 - 199 mg/dL [facility] Comment: Supplemental ranges: <140 mg/dL before meals <180 mg/dL all other times of the day Blood specimen (specimen) 07/31/2017 2:19 AM EST 07/31/2017 2:19 AM EST Li Sepulveda MD POINT OF CARE TEST O JORGE ALBERTO Performing Organization Address [facility] [place]/[facility] Co de Phone Number [facility] [place] [address] * POCT Glucose (07/30/2017 10:11 PM EST) Glucose, POC 112 65 - 199 mg/dL [facility] Comment: Supplemental ranges: <140 mg/dL before meals <180 mg/dL all other times of the day Blood specimen (specimen) 07/30/2017 10:11 PM EST 07/30/2017 10:11 PM EST Li Sepulveda MD POINT OF CARE TEST O RDANG Performing Organization Address [facility] [place]/[facility] Co de Phone Number [facility] [place] [address] * POCT Glucose (07/30/2017 5:26 PM EST) Glucose, POC 128 65 - 199 mg/dL [facility] Comment: Supplemental ranges: <140 mg/dL before meals <180 mg/dL all other times of the day Blood specimen (specimen) 07/30/2017 5:26 PM EST 07/30/2017 5:26 PM EST Li Sepulveda MD POINT OF CARE TEST O JORGE ALBERTO Performing Organization Address [facility] [place]/[facility] Co de Phone Number [facility] [place] [address] * POCT Glucose (07/30/2017 1:18 PM EST) Glucose, POC 152 65 - 199 mg/dL [facility] Comment: Supplemental ranges: <140 mg/dL before meals <180 mg/dL all other times of the day Blood specimen (specimen) 07/30/2017 1:18 PM EST 07/30/2017 1:18 PM EST Li Sepulveda MD POINT OF CARE TEST O JORGE ALBERTO Performing Organization Address [facility] [place]/[facility] de Phone Number [facility] [place] [address] * POCT Glucose (07/30/2017 9:39 AM EST) Glucose, POC 134 65 - 199 mg/dL [facility] Comment: Supplemental ranges: <140 mg/dL before meals <180 mg/dL all other times of the day Blood specimen (specimen) 07/30/2017 9:39 AM EST 07/30/2017 9:39 AM EST Li Sepulveda MD POINT OF CARE TEST O JORGE ALBERTO Performing Organization Address [facility] [place]/[facility] Co de Phone Number [facility] [place] [address] * POCT Glucose (07/30/2017 5:14 AM EST) Glucose, POC 125 65 - 199 mg/dL [facility] Comment: Supplemental ranges: <140 mg/dL before meals <180 mg/dL all other times of the day Blood specimen (specimen) 07/30/2017 5:14 AM EST 07/30/2017 5:14 AM EST Li Sepulveda MD POINT OF CARE TEST O JORGE ALBERTO Performing Organization Address [facility] [place]/[facility] Co de Phone Number [facility] [place] [address] * POCT Glucose (07/30/2017 1:13 AM EST) Glucose, POC 153 65 - 199 mg/dL [facility] Comment: Supplemental ranges: <140 mg/dL before meals <180 mg/dL all other times of the day Blood specimen (specimen) 07/30/2017 1:13 AM EST 07/30/2017 1:13 AM EST Li Sepulveda MD POINT OF CARE TEST O JORGE ALBERTO Performing Organization Address [facility] [place]/[facility] Co de Phone Number [facility] [place] [address] * POCT Glucose (07/29/2017 9:06 PM EST) Glucose, POC 136 65 - 199 mg/dL [facility] Comment: Supplemental ranges: <140 mg/dL before meals <180 mg/dL all other times of the day Blood specimen (specimen) 07/29/2017 9:06 PM EST 07/29/2017 9:06 PM EST Li Sepulveda MD POINT OF CARE TEST O JORGE ALBERTO Performing Organization Address [facility] [place]/[facility] Co de Phone Number [facility] [place] [address] * POCT Glucose (07/29/2017 6:06 PM EST) Glucose, POC 137 65 - 199 mg/dL [facility] Comment: Supplemental ranges: <140 mg/dL before meals <180 mg/dL all other times of the day Blood specimen (specimen) 07/29/2017 6:06 PM EST 07/29/2017 6:06 PM EST Li Sepulveda MD POINT OF CARE TEST O JORGE ALBERTO Performing Organization Address [facility] [place]/[facility] Phone Number [facility] [place] [address] * POCT Glucose (07/29/2017 1:53 PM EST) Glucose, POC 130 65 - 199 mg/dL [facility] Comment: Supplemental ranges: <140 mg/dL before meals <180 mg/dL all other times of the day Blood specimen (specimen) 07/29/2017 1:53 PM EST 07/29/2017 1:53 PM EST Li Sepulveda MD POINT OF CARE TEST O JORGE ALBERTO Performing Organization Address [facility] de Phone Number [facility] [place] [address] * POCT Glucose (07/29/2017 9:37 AM EST) Glucose, POC 149 65 - 199 mg/dL [facility] Comment: Supplemental ranges: <140 mg/dL before meals <180 mg/dL all other times of the day Blood specimen (specimen) 07/29/2017 9:37 AM EST 07/29/2017 9:37 AM EST Li Sepulveda MD POINT OF CARE TEST O JORGE ALBERTO Performing Organization Address [facility] [place]/[facility] Phone Number [facility] [place] [address] * POCT Glucose (07/29/2017 5:16 AM EST) Glucose, POC 130 65 - 199 mg/dL [facility] Comment: Supplemental ranges: <140 mg/dL before meals <180 mg/dL all other times of the day Blood specimen (specimen) 07/29/2017 5:16 AM EST 07/29/2017 5:16 AM EST Li Sepulveda MD POINT OF CARE TEST O RDERAFRANNIE Performing Organization Address [facility] [place]/[facility] Co de Phone Number [facility] [place] [address] * POCT Glucose (07/29/2017 1:10 AM EST) Glucose, POC 135 65 - 199 mg/dL [facility] Comment: Supplemental ranges: <140 mg/dL before meals <180 mg/dL all other times of the day Blood specimen (specimen) 07/29/2017 1:10 AM EST 07/29/2017 1:10 AM EST Li Sepulveda MD POINT OF CARE TEST O RDANG Performing Organization Address [facility] Phone Number [facility] [place] [address] * POCT Glucose (07/28/2017 9:05 PM EST) Glucose, POC 127 65 - 199 mg/dL [facility] Comment: Supplemental ranges: <140 mg/dL before meals <180 mg/dL all other times of the day Blood specimen (specimen) 07/28/2017 9:05 PM EST 07/28/2017 9:05 PM EST Li Sepulveda MD POINT OF CARE TEST O RDERAFRANNIE Performing Organization Address [facility] Phone Number [facility] [place] [address] * Group B Streptococcus Screen (07/28/2017 6:55 PM EST) GBS Screen Neg [facility] Pooled specimen from vaginal introitus and rectal swab (specimen) 07/28/2017 6:55 PM EST 07/28/2017 7:41 PM EST Comment:Penicillin Allergy?- >No Narrative Resulting Agency Comment Spec In Lab Li Sepulveda MD MICROBIOLOGY - GENER AL ORDERABLES Performing Organization Address [facility] [place]/[facility] Co de Phone Number [facility] [place] [address] * Antibody screen manual (07/28/2017 6:55 PM EST) AB Screen Interp Negative [facility] Blood specimen (specimen) Venous Draw / Unknown 07/28/2017 6:55 PM EST 07/28/2017 7:55 PM EST Narrative Resulting Agency Comment Spec In Lab Emerita Rosario MD BLOOD BANK LAB ORDER KURT Performing Organization Address City/[facility] [place]/ZIP Co de Phone Number [facility] [place] [address] * Ab Comment (07/28/2017 6:55 PM EST) Ab Information INTERPRETATION : The patient's serum has a casey-agglutinin that reacts only with solid-phase antigens. ??No casey-agglutinin is detected when red cells in solution are used in the assay. ??The casey-agglutinin detected is not clinically significant. Kanika Williamson i, MD, PhD Transfusion Medicine Service 08/06/17 17:28 [facility] Comment: KANIKA LIM, Pathologist Verified:08/06/17 Blood specimen (specimen) 07/28/2017 6:55 PM EST 07/28/2017 7:58 PM EST Narrative Resulting Agency Comment Spec In Lab Emerita Rosario MD BLOOD BANK LAB ORDER KURT Performing Organization Address City/[facility] [place]/ZIP Co de Phone Number [facility] [place] [address] * Antibody identification (07/28/2017 6:55 PM EST) Ab Identified Panagglutinin [facility] Blood specimen (specimen) 07/28/2017 6:55 PM EST 07/28/2017 7:58 PM EST Narrative Resulting Agency Comment Spec In Lab Li Sepulveda MD BLOOD BANK LAB ORDER KURT [facility] [place] [address] * ABORH Recheck Status (07/28/2017 6:55 PM EST) ABORH Recheck Order Order Placed [facility] ABORH Type Recheck Complete [facility] Blood specimen (specimen) 07/28/2017 6:55 PM EST 07/28/2017 7:58 PM EST Narrative Resulting Agency Comment Spec In Lab Li Sepulveda MD BLOOD BANK LAB ORDER KURT Performing Organization Address [facility] [facility] [place]/ZIP Co de Phone Number [facility] [place] [address] * Antibody screen (07/28/2017 6:55 PM EST) Ab Screen Interp Positive [facility] Expires at [id number] on: 07/31/2017 [facility] Blood specimen (specimen) 07/28/2017 6:55 PM EST 07/28/2017 7:58 PM EST Narrative Resulting Agency Comment Spec In Lab Li Sepulveda MD BLOOD BANK LAB ORDER KURT [facility] [place] [address] * ABO/Rh Typing (07/28/2017 6:55 PM EST) ABORH Type B Pos [facility] Blood specimen (specimen) 07/28/2017 6:55 PM EST 07/28/2017 7:58 PM EST Narrative Resulting Agency Comment Spec In Lab Li Sepulveda MD BLOOD BANK LAB ORDER KURT [facility] [place] [address] * (ABNORMAL) Differential, Automated (07/28/2017 6:55 PM EST) Neutrophil % 72.4 % [facility] Neutrophil Absolute 7.06(H) 1.70 - 6.10 x10(3)/[facility] LABORAT[facility] Lymph % 19.0 % [facility] Lymphocytes Abs 1.8 0.9 - 3.2 x10(3)/[facility] LABORATORY Monocyte % 7.2 % [facility] Monocyte Abs 0.7 0.3 - 0.9 x10(3)/[facility] LABORATORY Eos % 0.8 % [facility] Eosinophils Abs 0.1 0.0 - 0.4 x10(3)/[facility] LABORATORY Basophil % 0.2 % [facility] Baso Absolute 0.0 0.0 - 0.1 x10(3)/[facility] LABORATORY Immature Gran % 0.40 % [facility] Comment: Immature granulocytes(IG's)percentage and absolute count will include metamyelocytes, myelocytes, and promyelocytes. Blood smears from CBCs yielding IG's will be scanned manually for concordance. If this scan disagrees with the automated IG or if promyelocytes are noted, a manual differential will be performed. Immature Gran Absolute 0.04 0.00 - 0.04 x10(3)/[facility] Blood specimen (specimen) 07/28/2017 6:55 PM EST 07/28/2017 7:24 PM EST Narrative Resulting Agency Comment Spec In Lab Li Sepulveda MD HEMATOLOGY ORDERABLE S [facility] [place] [address] * (ABNORMAL) Hemogram (07/28/2017 6:55 PM EST) Pathologist [facility] White Blood Cell 9.8(H) 4.0 - 9.5 x10(3)/[facility] LABORATORY Red Blood Cell 3.89(L) 4.00 - 5.21 x10(6)/mc L [facility] Hemoglobin 11.4(L) 11.7 - 15.5 gm/dL [facility] Hematocrit 33.2(L) 35.7 - 45.8 % [facility] Mean Cell Volume 85.3 82.6 - 94.4 fL [facility] Mean Cell Hemoglobin 29.3 27.1 - 32.0 pg [facility] Mean Cell Hemoglobin Concentration 34.3 31.7 - 35.0 gm/dL [facility] Platelet 274 145 - 357 x10(3)/mc L [facility] RDW Standard Deviation 40.0 37.0 - 46.0 fL [facility] RDW coefficient of variation 13.0 11.5 - 14.1 % [facility] Mean Platelet Volume 8.5 7.6 - 12.9 fL [facility] NRBC% auto 0.0 % [facility] NRBC Absolute 0.000 0.000 - 0.000 x10(3)/mc L [facility] Blood specimen (specimen) 07/28/2017 6:55 PM EST 07/28/2017 7:24 PM EST Narrative Resulting Agency Comment Spec In Lab Li Sepulveda MD HEMATOLOGY ORDERABLE S Performing Organization Address City/[facility] [place]/ZIP Co de Phone Number [facility] [place] [address] * Group B Strep Culture Screen (07/28/2017 6:55 PM EST) Group B Streptococcus Culture No Group B Streptococci isolated [facility] Pooled specimen from vaginal introitus and rectal swab (specimen) 07/28/2017 6:55 PM EST 07/28/2017 7:41 PM EST Comment:PENICILLIN ALLERGY?- >NO Narrative Resulting Agency Comment Spec In Lab Li Sepulveda MD MICROBIOLOGY - GENER AL ORDERABLES [facility] [place] [address] * THC (Marijuana), Urine Confirmation (07/28/2017 6:45 [...] developed and its performance characteristics ?determined by [facility] in a manner consistent with CLIA ?requirements. This test has not been cleared or approved by ?the U.S. Food and Drug Administration. ?Test Performed by: ?[facility] ?[address] [place] [address] [facility] Urine specimen (specimen) 07/28/2017 6:45 PM EST 07/29/2017 8:33 AM EST Narrative Resulting Agency Comment Spec In Lab Emerita Rosario MD LAB SEND OUT ORDERAB LES [facility] [place] [address] * (ABNORMAL) TEREZA Screen w/ Confirmation (07/28/2017 6:45 PM EST) Barbiturates Screen, Urine None Detected None Detected [facility] Comment: The barbiturate screen [...] substances may occur. Not for Medico-Legal Purposes. Benzodiazepines Screen, Urine None Detected None Detected [facility] Comment: The benzodiazepines screen [...] substances may occur. Not for Medico-Legal Purposes. Cocaine Screen, Urine None Detected None Detected [facility] Comment: The cocaine metabolites screen detects benzoylecgonine (Cocaine Metabolite) at concentrations >150 ng/mL. A ? Presumptive Positive? result indicates that the screening result was positive but has not yet been confirmed by a highly-specific method. As with any screen, occasional false positive results from cross-reacting substances may occur. Not for Medico-Legal Purposes. Methadone Metabolites Screen, Urine None Detected None Detected [facility] Comment: The methadone metabolite screen detects EDDP (major methadone metabolite) at concentrations >100 ng/mL. A ? Presumptive Positive? result indicates that the screening result was positive but has not yet been confirmed by a highly-specific method. As with any screen, occasional false positive results from cross-reacting substances may occur. Not for Medico-Legal Purposes. Opiate Screen, Urine None Detected None Detected [facility] Comment: The opiates screen [...] substances may occur. Not for Medico-Legal Purposes. Cannabinoid Screen, Urine Presumptive Pos(A) None Detected [facility] Comment: The marijuana metabolites screen detects the THC metabolite (72-muq-7-carboxy-delta 9-THC) at concentrations >20 ng/mL. A ? Presumptive Positive? result indicates that the screening result was positive but has not yet been confirmed by a highly-specific method. As with any screen, occasional false positive results from cross-reacting substances may occur. Not for Medico-Legal Purposes. Oxycodone Screen, Urine None Detected None Detected [facility] Comment: The oxycodone screen detects oxycodone and oxymorphone at concentrations >100 ng/mL. A ? Presumptive Positive? result indicates that the screening result was positive but has not yet been confirmed by a highly-specific method. As with any screen, occasional false positive results from cross-reacting substances may occur. Not for Medico-Legal Purposes. Buprenorphine Screen, Urine None Detected None Detected [facility] Comment: The buprenorphine screen detects buprenorphine at concentrations >5 ng/mL. A ? Presumptive Positive? result indicates that the screening result was positive but has not yet been confirmed by a highly-specific method. As with any screen, occasional false positive results from cross-reacting substances may occur. Not for Medico-Legal Purposes. Fentanyl Screen, Urine None Detected None Detected [facility] Comment: The fentanyl screen detects fentanyl at concentrations >2 ng/mL. A ? Presumptive Positive? result indicates that the screening result was positive but has not yet been confirmed by a highly-specific method. As with any screen, occasional false positive results from cross-reacting substances may occur. Not for Medico-Legal Purposes. Tricyclics Screen, Urine None Detected None Detected [facility] Comment: The tricyclics screen [...] substances may occur. Not for Medico-Legal Purposes. Ethanol Screen, Urine None Detected None Detected [facility] Comment:This urine ethanol a ssay detects ethanol at concentrations >/= 100 mg/L. Amphetamines Screen, Urine None Detected None Detected [facility] Comment: The amphetamine screen detects d-amphetamine and d-methamphetamine at concentrations >300 ng/mL. A ? Presumptive Positive? result indicates that the screening result was positive but has not yet been confirmed by a highly-specific method. As with any screen, occasional false positive results from cross-reacting substances may occur. Not for Medico-Legal Purposes. Adulterants Screen, Urine None Detected None Detected [facility] Comment: No adulteration or [...] Sepulveda MD CHEMISTRY ORDERABLES Performing Organization Address City/[facility] [place]/ZIP Co de Phone Number [facility] [place] [address] * TEREZA Request (07/28/2017 6:45 PM EST) TEREZA Conf Requested Yes [facility] TEREZA Requested See Comment [facility] Comment:Refer to the TEREZA Scr een w/ Confirmation order for results. Urine specimen (specimen) 07/28/2017 6:45 PM EST 07/28/2017 7:23 PM EST Narrative Resulting Agency Comment Spec In Lab Li Sepulveda MD URINE ORDERABLES Performing Organization Address City/[facility] [place]/ZIP Co de Phone Number [facility] [place] [address] documented in this encounter Visit Diagnoses Diagnosis [...] dextrose 5% 100 mL 2 g, Intravenous, SALES SPECIALIST TO O.R., 1 dose, On Thu09/11/17 at 1000, Administer over 30 Minutes, Indication for (Active or Suspected): Prophylaxis New Bag 09/11/2017 9:57 AM EST 2 g 200 mL/hr citric acid-sodium citrate (BICITRA) oral solution 30 mL 30 mL, Oral, SALES SPECIALIST TO O.R., 1 dose, On Thu09/11/17 at [...] 50 mg, Oral, NIGHTLY PRN, Starting on Thu07/30/17 at 2220, Until Thu08/28/17 at 2007, Itching, [...] 30 minutes if pruritis not relieved. Per JUNK DEALER order., Routine Given 09/12/2017 4:12 AM EST [...] EST 324 mg HYDROmorphone (DILAUDID) 1 mg/mL JUNK DEALER 50 mL Intravenous, JUNK DEALER ONLY, Starting on Thu09/11/17 at 1500, Until 09/12/17 at 1025 Rate/Dose Verify 09/11/2017 3:56 PM [...] day), First dose (after last modification) on [facility] 08/13/17 at 1200, Until Discontinued, Basal insulin. At 1200 give 14 units. At 0000 give 24 units., Routine Given 09/06/2017 12:14 AM EST 24 Units Given 09/05/2017 2:12 PM EST 14 Units Given 09/04/2017 11:39 PM EST 24 Units insulin lispro (humaLOG) VIAL injection 1-3 Units 1-3 Units, Subcutaneous, USER SPECIFIED (4 times per day), First dose (after last modification) on [facility] 08/13/17 at 1200, Until Discontinued, Sensitive [...] HOURS SCHEDULED, 16 doses, First dose on 09/12/17 at 1415, Last dose on Thu09/16/17 at [...] Oral, 2 TIMES DAILY PRN, Starting on Thu08/02/17 at 2245, Until Thu09/11/17 at 1440, Constipation, Routine Given 08/04/2017 8:25 PM EST 17 g Given 08/03/2017 8:40 AM EST 17 g Given 08/02/2017 10:41 PM EST 17 g vitamin 27 & mregaxr-eykp-LH 60 mg iron-1 mg tablet Tab 1 [...] Valenzuela RN - Reason: Patient/family refused) 0900 (Due)2116 (Given - Provider: Emely Nagy RN) 0953 (Given - Provider: Asif Grove RN) ferrous gluconate tablet 324 mg 324 mg, Oral, 3 TIMES DAILY, First dose on Thu09/14/17 at 0900, Until Discontinued 899 (Due)1500 (Due)2116 (Given - Provider: Emely Nagy RN) 0953 (Given - Provider: Asif Grove, NYA)1500 [...] Discontinued, Routine 0900 (Due - Provider: Freda Ching RN)2100 (Given - Provider: Pam Valenzuela RN) 0900 (Due - Provider: Freda Ching, NYA)2100 (Given - Provider: Emely Nagy, [place]A) 0954 (Given - Provider: Asif Grove, NYA) [...] to exceed 4g in 24 hours, Routine 1515 (Given - Provider: Valery Hoover [place]A)2115 (Given - Provider: Emely Nagy RN) 414 (Given - Provider: Emely Nagy RN)101 (Given - Provider: Asif Grove, NYA)1824 (Given - Provider: Asif Grove, NYA) cyclobenzaprine (FLEXERIL) tablet 10 mg 10 mg, Oral, 3 TIMES DAILY PRN, Starting on 09/13/17 at 0950, Until Thu09/15/17 at 2040, Muscle spasms, Routine 1029 (Given - Provider: Yumiko Cochran, [place]A)1835 (Given - Provider: Yumiko Cochran, NYA) 0256 (Given - Provider: Pam Valenzuela RN)1516 [...] Emely Nagy RN)101 (Given - Provider: Asif Grove, NYA)1824 (Given - Provider: Asif Grove, [place]A) ondansetron (ZOFRAN) injection 4 mg 4 mg, [...] Cochran RN)2110 (Given - Provider: Pam Valenzuela, RN) 0119 (Given - Provider: Pam Valenzuela, RN)1011 (Given - Provider: Valery Hoover, RN)1050 (Given - Provider: Valery Hoover, NYA) simethicone (MYLICON) chewable tablet 80 mg 80 mg, Oral, 4 TIMES DAILY PRN, Starting on Thu09/11/17 at 1554, Until Thu09/15/17 at 2039, Cramping, gas pain, Routine 2110 (Given - Provider: Pam Valenzuela RN) sodium chloride 0.9 % flush 5-20 mL 5-20 mL, Intravenous, EVERY 1 MIN PRN, Starting on Thu07/28/17 at 1727, Until Thu09/15/17 at 2039, flush, Flush pertains to all indwelling lines. [...] Routine documented in this encounter Care Teams Oil Exploration Engineer Relationship Specialty Start Date End Date None None PCP - General 05/29/17 09/02/21 documented as of this encounter
--- OUTSIDE RECORDS SUMMARY | 2024-08-27 00:55 | XMS_ITS | Encounter Summary ---
Author Organization [facility] Address [facility] [place] [address] Care Team Providers Care Nurse Licensed Practical Name Role Phone None Primary Care Provider Unavailabl e Encounter Details Date Type Department Care Team ([facility] st Contact Info) Description 07/05/2017 Telephone Obstetrics and Gynecology at [facility] [place] [address] Luis Rasmussen MD [facility] DR OBSTETRICS [place] [address] Social History Tobacco Use Types Packs/Day Years [...] water today. Discussed that these are likely [place] type ctx. Encouraged continued PO fluid intake and trying a warm bath to see if this helps ctx to go away. If they persist or worsen, she will give us a call back. LUIS RASMUSSEN MD PGY4 07/05/2017 documented in this encounter Plan of Treatment Not on file documented as of this encounter Visit Diagnoses Not on filedocumented in this encounter Care Teams Nurse Licensed Practical Relationship Specialty Start Date End Date None None PCP - General 05/29/17 09/02/21 documented as of this encounter
--- OUTSIDE RECORDS SUMMARY | 2024-08-27 00:55 | XMS_ITS | Encounter Summary ---
Author Organization [facility] Address [facility] [place] [address] Care Team Providers Care Confectionery Laboratory Manager Name Role Phone None Primary Care Provider Unavailabl e Encounter Details Date Type Department Care Team ([facility] st Contact Info) Description 07/20/2017 Telephone Obstetrics and Gynecology at [facility] [place] [address] Desean Soto MD [facility] DR OBSTETRICS & GYNECOLOGY [place] [id number] Social History Tobacco Use Types Packs/Day Years [...] on filedocumented in this encounter Care Teams Confectionery Laboratory Manager Relationship Specialty Start Date End Date None None PCP - General 05/29/17 09/02/21 documented as of this encounter
--- OUTSIDE RECORDS SUMMARY | 2024-08-27 00:55 | XMS_ITS | Encounter Summary ---
Author Organization [facility] Address [facility] [place] [address] Care Team Providers Care Credit Card Interviewer Name Role Phone None Primary Care Provider Unavailabl e Reason for Visit * Auth/Cert Specialty Diagnoses / Procedures Referred By Jose Enrique velazco Referred To Contact Diagnoses Vasa previa Procedures JUDSON IPI Referral ID Status Reason Start Date Expiration Date Visits Re quested Visits Authorized [id number] 1 1 Encounter Details Date Type Department Care Team (Late st Contact Info) Description 07/28/2017 10:00 AM EST Routine Obstetrics [place] [address] [facility] DR OBSTETRICS [place] [address] GA: [id number] Social History Tobacco Use Types [...] fetus documented in this encounter Care Teams Credit Card Interviewer Relationship Specialty Start Date End Date None None PCP - General 05/29/17 09/02/21 documented as of this encounter
--- OUTSIDE RECORDS SUMMARY | 2024-08-27 00:55 | XMS_ITS | Encounter Summary ---
Author Organization [facility] Address [facility] [place] [address] Care Team Providers Care Processor Grain Name Role Phone None Primary Care Provider Unavailabl e Encounter Details Date Type Department Care Team (Latest Contact Info) Description 05/29/2017 9:59 AM EDT - 05/29/2017 11:59 PM EDT Hospital En[place] [phone] Crow Martines MD [facility] DR OBSTETRICS AND GYNECOLOGY [place] [id number] Gestational diabetes mellitus (GDM) in second trimester, [...] Refills Start Date End Date vitamin with vnlqpyae-Im-Qfss-FA Tablet Take 1 tablet by mouth daily. [...] 01:53 pm) PATIENT INFO: ID #: ? [id number] ?: ??[birth year] (27 yrs) Name: ? PAM Lopez ?Visit Date: 05/29/2017 10:27 am ? ROBERT PERFORMED BY: Performed By: ? Ruth Ann Dixon RDMS Attending: ?Conrad TAY, E ??Yeny Referred By: ?MONIQUE ORR MD Location: ? Platter SERVICE(S) PROVIDED: ??[facility] - Detailed Morphology - [id number] ? [id number] ??UOBTV - Viability - Cervical Length -Transvaginal - ?? [id number] ??[id number] INDICATIONS: ??19 weeks gestation of ?Z3A.19 ??INSULIN [...] Arch: ? Visualized SVC: ? Visualized Cardiac [place]: ?Visualized Diaphragm: ? Visualized 3 Vessel View: [...] 05/29/2017 01:53 pm) PATIENT INFO: ID #: [id number] : [birth year] (27 yrs) Name: PAM Lopez Visit Date: 05/29/2017 10:27 am ROBERT PERFORMED BY: Performed By: Ruth Ann Dixon RDMS Attending: Crow Martines MD Referred By: MONIQUE ORR MD Location: Platter SERVICE(S) PROVIDED: [facility] - Detailed Morphology - [id number] UOBTV - Viability - Cervical Length -Transvaginal - [id number] INDICATIONS: 19 weeks gestation of Z3A.19 INSULIN [...] Visualized Ductal Arch: Visualized SVC: Visualized Cardiac [place]: Visualized Diaphragm: Visualized 3 Vessel View: Visualized [...] unspecified documented in this encounter Care Teams Processor Grain Relationship Specialty Start Date End Date None None PCP - General 05/29/17 09/02/21 documented as of this encounter
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
--- OUTSIDE RECORDS SUMMARY | 2024-08-27 00:55 | XMS_ITS | Encounter Summary ---
Author Organization [facility] Address [facility] [place] [address] Care Team Providers Care Ore Fielder Name Role Phone None Primary Care Provider Unavailabl e Encounter Details Date Type Department Care Team (Late st Contact Info) Description 07/06/2017 Telephone Obstetrics and Gynecology at [facility] [place] [place] [address] Luis Rasmussen MD [facility] DR OBSTETRICS & [place] [address] Social History Tobacco Use Types Packs/Day Years [...] on filedocumented in this encounter Care Teams Ore Fielder Relationship Specialty Start Date End Date None None PCP - General 05/29/17 09/02/21 documented as of this encounter
--- OUTSIDE RECORDS SUMMARY | 2024-08-27 00:55 | XMS_ITS | Encounter Summary ---
Author Organization [facility] Address [facility] [place] [address] Care Team Providers Care Cyber Systems Operations Specialist Name Role Phone None Primary Care Provider Unavailabl e Encounter Details Date Type Department Care Team ([facility] st Contact Info) Description 06/20/2017 Telephone Obstetrics and Gynecology at [facility] [place] [address] Luis Rasmussen MD [facility] DR OBSTETRICS & [place] [address] Social History Tobacco Use Types Packs/Day Years [...] ~2 hours out. She is closer to [facility] and reports she will go there if she doesn't feel movement in the next hour or so. If she goes in, she will call and notify me so that I may give the providers at [facility] advanced notice of her arrival. LUIS RASMUSSEN MD PGY4 06/20/2017 documented in this encounter Plan of Treatment Not on file documented as of this encounter Visit Diagnoses Not on filedocumented in this encounter Care Teams Cyber Systems Operations Specialist Relationship Specialty Start Date End Date None None PCP - General 05/29/17 09/02/21 documented as of this encounter
--- OUTSIDE RECORDS SUMMARY | 2024-08-27 00:55 | XMS_ITS | Encounter Summary ---
Author Organization [facility] [place] [address] Care Team Providers Care Fiscal Services Director Name Role Phone None Primary Care Provider Unavailabl e Reason for Visit * Reason Comments Routine Visit Encounter Details Date Type Department Care Team (Late st Contact Info) Description 07/09/2017 10:45 AM EST Routine Obstetrics [place] [address] Lolita Barrett MD [facility] [address] OBSTET[place] [address] GA: [id number] Social History Tobacco Use Types [...] [facility] I offered referral to Sultana Wheatley for [...] 10:51 am) PATIENT INFO: ID #: ? [id number] ?: ??[birth year] (27 yrs) Name: ? PAM Lopez ?Visit Date: 07/28/2017 10:10 am ? ROBERT PERFORMED BY: Performed By: ? Dhara Hicks RDMS Attending: ?Derick TAY, Li Umanzor Referred By: ?LOLITA BARRETT Location: ? [place] SERVICE(S) PROVIDED: ??UOBFOL - Efw - Growth - Hernandez - [id number] ? [id number] ??UOBTV - Viability - Cervical Length -Transvaginal - ?? 38054 ??[id number] INDICATIONS: ??27 weeks gestation of ?Z3A.27 ??placenta, [...] 07/28/2017 10:51 am) PATIENT INFO: ID #: [id number] : [birth year] (27 yrs) Name: PAM Lopez Visit Date: 07/28/2017 10:10 am ROBERT PERFORMED BY: Performed By: Dhara Hicks RDMS Attending: Li Sepulveda MD Referred By: LOLITA BARRETT Location: [place] SERVICE(S) PROVIDED: UOBFOL - Efw - Growth - Hernandez - [id number] UOBTV - Viability - Cervical Length -Transvaginal - 31326 [id number] INDICATIONS: 27 weeks gestation of Z3A.27 placenta, [...] high-risk documented in this encounter Care Teams Fiscal Services Director Relationship Specialty Start Date End Date None None PCP - General 05/29/17 09/02/21 documented as of this encounter
--- OUTSIDE RECORDS SUMMARY | 2024-08-27 00:55 | XMS_ITS | Referral Summary ---
Author Organization [facility] Address [address] [place] [address] Care Team Providers Care Air Marshal Name Role Phone Unknown, Provider Primary Care Provider Unava ilable Social History Tobacco Use Types Packs/Day Years Used Date Smoking Tobacco: Never Assessed Comments Unknown Sex and Gender Information Value Date Recorded Sex Assigned at Not on file Legal Sex Female 18:32 EST Gender Identity Not on file Sexual Orientation Not on file Plan of Treatment Not on file Care Teams Air Marshal Relationship Specialty Start Date End Date Unknown, Provider, PCP - General 05/06/12
--- OUTSIDE RECORDS SUMMARY | 2024-08-27 00:55 | XMS_ITS | Encounter Summary ---
Author Organization [facility] Address [facility] [place] [address] Care Team Providers Care Magnet Valve Assembler Name Role Phone None Primary Care Provider Unavailabl e Reason for Visit * Consultation (Routine) - Closed Specialty Diagnoses / Procedures Referred By Jose Enrique t Referred To Contact Obstetrics and Gynecology Diagnoses INSULIN DEP GDM Procedures U/S Isela Hutton MD [address] [place] [address] [facility] [address] [place] [address] Referral ID Status Reason Start Date Expiration Date Visits Re quested Visits Authorized [id number] Closed 04/17/2017 04/17/2018 1 1 Encounter Details Date Type Department Care Team (Latest Contact Info) Description 05/29/2017 10:45 AM EDT Procedure visit Obstetrics [place] [address] Crow Martines MD [facility] DR OBSTETRICS [place] [address] Insulin controlled gestational diabetes mellitus [...] patient [place] [facility] [place] the [place] of the . She [...] Medication Sig Dispense Refill ??? vitamin with xmmvqlty-Vk-Xzmv-FA Tablet Take 1 tablet by mouth daily. [...] will arrange to have an appointment in [facility] that day as well. We will contact [...] MD 05/29/2017 Cc: Isela Blunt MD [address] [place] [id number] , with copy of ultrasound report documented [...] 11:19 ?am) PATIENT INFO: ID #: ? [id number] ?: ??[birth year] (27 yrs) Name: ? PAM Lopez ?Visit Date: 07/09/2017 10:00 am ? ROBERT PERFORMED BY: Performed By: ? Ruth Ann Dixon RDMS Attending: ?Sandoval TAY, Lolita Garcia Referred By: ?Crow MARTINES Location: ? [place] SERVICE(S) PROVIDED: ??UOBFOL - Efw - Growth - Hernandez - [id number] ? [id number] ??UOBTV - Viability - Cervical Length -Transvaginal - ?? 57892 ??[id number] INDICATIONS: ??24 weeks gestation of ?Z3A.24 ??placenta [...] 07/09/2017 11:19 am) PATIENT INFO: ID #: [id number] : [birth year] (27 yrs) Name: PAM Lopez Visit Date: 07/09/2017 10:00 am ROBERT PERFORMED BY: Performed By: Ruth Ann Dixon RDMS Attending: Lolita Nick MD Referred By: Crow MARTINES Location: [place] SERVICE(S) PROVIDED: UOBFOL - Efw - Growth - Hernandez - [id number] UOBTV - Viability - Cervical Length -Transvaginal - 29712 [id number] INDICATIONS: 24 weeks gestation of Z3A.24 placenta [...] AGE: LMP: 24w 6d Date: 01/16/17 CHITRA: 03/02/18 U/S Today: 24w 0d CHITRA: 10/29/17 [...] Positive organisms , probable contaminant(A ) [facility] Urine specimen obtained by clean catch procedure (specimen) 05/29/2017 10:45 AM EDT 05/29/2017 5:20 PM EDT Narrative Resulting Agency Comment Spec In Lab Jayshree Whatley RN MICROBIOLOGY - G ENERAL ORDERABLES [facility] [place] [address] documented in this encounter Visit Diagnoses Diagnosis Insulin controlled gestational diabetes mellitus (GDM) in second trimester Placenta previa centralis in second trimester Previous section x 2 Other postprocedural status Insulin controlled gestational diabetes mellitus (GDM) in second trimester Placenta previa centralis in second trimester Previous section x 2 Other postprocedural status documented in this encounter Care Teams Magnet Valve Assembler Relationship Specialty Start Date End Date None None PCP - General 05/29/17 09/02/21 documented as of this encounter
--- OUTSIDE RECORDS SUMMARY | 2024-08-27 00:55 | XMS_ITS | Encounter Summary ---
Author Organization [facility] Address [facility] [place] [address] Care Team Providers Care Assistant Associate Professor Name Role Phone None Primary Care Provider Unavailabl e Reason for Visit * Auth/Cert Specialty Diagnoses / Procedures Referred By Jose Enrique velazco Referred To Contact Diagnoses Vasa previa Procedures JUDSON IPI Referral ID Status Reason Start Date Expiration Date Visits Re quested Visits Authorized [id number] 1 1 Encounter Details Date Type Department Care Team (Latest Contact Info) Description 07/28/2017 9:30 AM EST - 07/28/2017 2:51 PM [facility] [place] [address] Lolita Barrett MD [facility] OBSTETRICS [place] [address] Supervision of high risk in second trimester [...] 20 tablet 3 09/14/2017 10/27/2017 vitamin with ofeymzml-Sx-Qenp-FA Tablet Take 1 tablet by mouth daily. [...] 10:51 am) PATIENT INFO: ID #: ? [id number] ?: ??[birth year] (27 yrs) Name: ? RAVINDRA Lopez ?Visit Date: 07/28/2017 10:10 am ? ROBERT PERFORMED BY: Performed By: ? Dhara Hicks RDMS Attending: ?Derick TAY, Li Umanzor Referred By: ?LOLITA BARRETT Location: ? [place] SERVICE(S) PROVIDED: ??UOBFOL - Efw - Growth - Hernandez - [id number] ? 64043 ??UOBTV - Viability - Cervical Length -Transvaginal - ?? 41102 ??[id number] INDICATIONS: ??27 weeks gestation of ?Z3A.27 ??placenta, [...] 07/28/2017 10:51 am) PATIENT INFO: ID #: [id number] : [birth year] (27 yrs) Name: RAVINDRA Lopez Visit Date: 07/28/2017 10:10 am ROBERT PERFORMED BY: Performed By: Dhara Hicks RDMS Attending: Li Sepulveda MD Referred By: LOLITA BARRETT Location: [place] SERVICE(S) PROVIDED: UOBFOL - Efw - Growth - Hernandez - [id number] UOBTV - Viability - Cervical Length -Transvaginal - 68959 [id number] INDICATIONS: 27 weeks gestation of Z3A.27 placenta, [...] high-risk documented in this encounter Care Teams Assistant Associate Professor Relationship Specialty Start Date End Date None None PCP - General 05/29/17 09/02/21 documented as of this encounter
--- OUTSIDE RECORDS SUMMARY | 2024-08-27 00:55 | XMS_ITS | Encounter Summary ---
Author Organization [facility] [place] [address] Care Team Providers Care Laundry Helper Name Role Phone None Primary Care Provider Unavailabl e Reason for Visit * Auth/Cert Specialty Diagnoses / Procedures Referred By Jose Enrique velazco Referred To Contact Diagnoses Vasa previa Procedures JUDSON IPI Referral ID Status Reason Start Date Expiration Date Visits Re quested Visits Authorized [id number] 1 1 Encounter Details Date Type Department Care Team ([facility] Contact Info) Description 09/11/2017 10:19 AM EST Anest[place] [address] Mitch Dowd MD Moss, Linzi B, MD [facility] DR [place] [address] Anesthesia Record Procedure Summary Procedure Name Responsible [...] JOSE) Incision 09/11/17; 1158 09/11/17 1158 by Asif Grove, RN (RETIRED) Peripheral IV Line - Single Lumen 09/03/17; 0118; cephalic vein (lateral side of arm), right; lufj-lcp-ccioin catheter system; 22 gauge, 1 in length, 3/4 in length; Denise Irvin RN; intradermal injection, tolerated well; 0; no longer indicated, catheter/device intact, removed per policy/procedure; 09/15/17; 18209/03/17 0118 by Denise Irvin, NYA 09/15/17 182 by Asif Grove RN (RETIRED) Peripheral IV Line - Single Lumen 09/11/17; 0915; metacarpal vein (top of hand), left; xtcz-xgd-ofuxkj catheter system; 20 gauge; felicitas ham rn; distraction; 0; pt wanted out so that she could hold her baby without interfearance. Still has IV access in R ant forearm.; other (see comments); 09/12/17; 1020 09/11/17 0915 by Felicitas Ham RN 09/12/17 1020 by Claudine Gamino RN (RETIRED) Peripheral IV Line - Single Lumen 09/11/17; 1006; metacarpal vein (top of hand), right; vpsg-bxu-deyakv catheter system; 18 gauge; distraction; 0; site symptomatic, catheter/device intact; 09/11/17; 2348 09/11/17 1006 by Letitia Rosales RN 09/11/17 2348 by Daisy Mike, RN (RETIRED) Peripheral IV Line - Single Lumen 09/11/17; 1100; metacarpal vein (top of hand), right; 18 gauge; double entry of LDA, same IV line documented earlier at 1006; site symptomatic, catheter/device intact; 09/11/17; 2348 09/11/17 1100 by Asif Grove RN 09/11/17 2348 by Daisy Mike RN Urethral Catheter 09/11/17; 1128; Abdominal surgery; [...] Mackenzie MD - 09/11/2017 2:30 PM EST [facility] Department of Anesthesiology Post-procedure Note Patient: Pam Lake Procedure Summary Date Anesthesia Start Anesthesia Stop Room / Location 09/11/17 1019 1429 [facility] OR 1 / [facility] Procedure Diagnosis Surgeon Responsible Provider @ DELIVERY (WRVU 16.13) (Bilateral Abdomen); CYSTO, CYSTOURETHROSCOPY, DIAGNOSTIC (WRVU 2.23) (N/A Bladder); @HYSTERECTOMY, ABD, SUPRACERVICAL (WRVU 16.6) (N/A Abdomen) (c/s) Chely Sin MD Burchman, Corey A, MD All Anesthesia Providers: Anesthesiologist: Mitch Dowd MD Clutch Specialist: Mert Jones MD Most Recent Vitals: 09/11/17 0900 BP: 122/66 Pulse: (!) 109 Resp: 18 Temp: SpO2: 100% Pain Patient Location: PACU/SD Level of Consciousness: Awake and Alert Pain [...] mg documented in this encounter Care Teams Laundry Helper Relationship Specialty Start Date End Date None None PCP - General 05/29/17 09/02/21 documented as of this encounter
--- OUTSIDE RECORDS SUMMARY | 2024-08-27 00:55 | XMS_ITS | Encounter Summary ---
Author Organization [facility] [place] [address] Care Team Providers Care Sewer Line Repairer Name Role Phone None Primary Care Provider Unavailabl e Encounter Details Date Type Department Care Team ([facility] Contact Info) Description 08/12/2017 10:38 AM EST Anesthesia Event Ultrasound at [facility] [place] [address] Marcial Bean MD [facility] [place] [address] Marcial Bean MD [facility] [place] [address] Anesthesia Record Procedure Summary Procedure Name Responsible Anesthesiologist Anesthesia Start Time Anesthesia Stop Time OB FOLLOW UP Events No events on file. Meds * Agents No agents on file. * Blood No blood administrations on file. Lines, Drains, and Airways Type Details Placement Removal (RETIRED By SPR20) Incision 09/11/17; 1158 08/24 05/11 1158 by [...] on filedocumented in this encounter Care Teams Sewer Line Repairer Relationship Specialty Start Date End Date None None PCP - General 05/29/17 09/02/21 documented as of this encounter
--- OUTSIDE RECORDS SUMMARY | 2024-08-27 00:55 | XMS_ITS | Encounter Summary ---
Author Organization [facility] Address [facility] [place] [address] Care Team Providers Care Lighthouse Keeper Name Role Phone None Primary Care Provider Unavailabl e Reason for Visit * Auth/Cert Specialty Diagnoses / Procedures Referred By Jose Enrique t Referred To Contact Diagnoses Vasa previa Procedures JUDSON IPI Referral ID Status Reason Start Date Expiration Date Visits Re quested Visits Authorized [id number] 1 1 Encounter Details Date Type Department Care Team ([facility] Contact Info) Description 09/11/2017 10:00 AM EST - 09/11/2017 12:01 PM [place] [id number] Chely Sin MD [facility] DR OBSTETRICS [place] [address] @ DELIVERY (WRVU 16.13) Social History Tobacco [...] Pam Lake Patient Age: 27 y.o. Language: Sinhala Race: Black or Ethnicity: OR Admit date: [...] -- Final pathology Inpatient Provider Contact Information: [facility] WIRE STITCHER Department, Discharge Diagnoses (Hospital Problems) and Secondary [...] was given a rescue course of steroids [id number] (complete on 08/20). Insulin was titrated up [...] within normal limits. She was discharged to [facility] in good condition and good spirits on [...] Information for the patient's : Michele Lake [[id number]] INFORMATION Michele Lake 09/11/2017 11:58 AM by Lower Segment Transverse Sex: female Gestational Age: 34w0d [place] Measurements: Weight: 4 lb 7.8 oz (2035 [...] REMOVE Please contact the Blood Bank at [phone] for questions. Immunizations Given this Hospitalization: Immunization [...] Nausea. 8 mg Refills: 0 vitamin with pytdwmvr-Tq-Rdwc-FA Tab Take 1 tablet by mouth daily. [...] Depression Contact Numbers: If you see an rodding anode worker call: [phone] 9 am - 5 pm, after 5 pm If you see a vehicle technician call: [phone] all hours If you see a family practitioner call: [phone] all hours If you were transferred to our institution for delivery and cannot reach your local OB provider, call the rodding anode worker numbers. General Instructions Nursing Inpatient Progress C [...] this in detail. Call your doctor or vehicle technician for: ??? Fever more than 100.5 ??? [...] follow up appointment. You may call the [facility] at any time for guidance or for answers to questions that come up prior to you follow up appointment. Your [facility] Provider can be reached during office hours at ??? Midwives ??? Obstetricians ??? [facility] Follow-up Clinic AFTER OFFICE HOURS for the rodding anode worker or vehicle technician air conditioner installer helper Provider electronic signature confirms that discharge instructions were reviewed with the patient. A copy was printed and given to the patient. Future Appointments and Orders Future Appointments Provider Department Dept Phone 09/17/2017 4:15 PM Emanuel Barrett MD Obstetrics and Gynecology at [place] [phone] 10/23/2017 1:00 PM Li Sepulveda MD Obstetrics and Gynecology at [facility] [phone] Future Orders Complete By Expires Durable Medical Equipment Order [EQ148 Custom] As directed Process Instructions: Scheduling Instructions: Comments: Pam Lake 1990 [address] [facility] [address] (home) [employer] Central intake- #[phone] fax [phone] [place] Office- [phone] RX: Hospital Grade Electric Breast Pump- Lactina [...] breast pump Size requested: Vendor Name/Contact information: [employer] Discharge References/Attachments HYSTERECTOMY: ABDOMINAL: POST-OP (YORUBA) GRIEVING (ACTUAL/ANTICIPATED) (YORUBA) documented in this encounter Discharge Instructions * [...] this in detail. Call your doctor or vehicle technician for: ??? Fever more than 100.5 ??? [...] follow up appointment. You may call the [facility] at any time for guidance or for answers to questions that come up prior to you follow up appointment. Your [facility] Provider can be reached during office hours at ??? Midwives ??? Obstetricians ??? [facility] Follow-up Clinic AFTER OFFICE HOURS for the rodding anode worker or vehicle technician air conditioner installer helper Provider electronic signature confirms that discharge instructions [...] Depression Contact Numbers: If you see an rodding anode worker call: [phone] 9 am - 5 pm, after 5 pm If you see a vehicle technician call: [phone] all hours If you see a family practitioner call: [phone] all hours If you were transferred to our institution for delivery and cannot reach your local OB provider, call the rodding anode worker numbers. * Attachments The following attachments cannot be sent through Care Everywhere. * HYSTERECTOMY: ABDOMINAL: POST-OP (YORUBA) * GRIEVING (ACTUAL/ANTICIPATED) (YORUBA) documented in this encounter Medications at Time [...] 20 tablet 3 09/14/2017 10/27/2017 vitamin with agjrbuae-Rl-Gdrq-FA Tablet Take 1 tablet by mouth daily. [...] about that. She plans to stay at [facility] after she's been d/c. Understandably, pt reports she has not been able to emotionally process the event of delivery and her baby staying in the ICN yet. Plan: Will arrange for pt to receive gas card. DIEGO Ruiz Pager: [phone] * Pam Valenzuela RN - 09/14/2017 7:43 [...] - 09/12/2017 6:02 PM EST Back from [facility]. Medicated with 10mg Oxycodone. Pumped x10 mins. No results. * Claudine Gamino RN - 09/12/2017 4:00 PM EST Pumped x15 mins, both breasts utilizing electric breast pump. No colostrum expressed. Reassured Pam that it is ok, victoriano d/t her sig blood loss. Pam back to [facility] to see josé luis. Transported by this [...] IV removed from L hand. Taken to [facility], via wheelchair, by this RN. Instructed to [...] The patient complains of incision pain, states STRIKE WARFARE/MISSILE SYSTEMS OFFICER has been helping. Pumping for infant nutrition [...] ?? Continue routine care. Will transition from STRIKE WARFARE/MISSILE SYSTEMS OFFICER to po pain medications. Discontinue amador catheter [...] given 2 mg of IV dilaudid and STRIKE WARFARE/MISSILE SYSTEMS OFFICER initiated to bring pain down to a [...] 07/28/2017 Attending Physician: Arturo Waterman MD Stephanie Jesscia Jaya 1990 [address] [facility] [address] [facility] [address] ([place]) [employer] Central intake- #[phone] fax [phone] [place] Office- [phone] RX: Hospital Grade Electric Breast Pump- Lactina Breast Pump Length of Need: 3 Months Purpose of Appliance: To Initiate and Maintain Medical Necessity: /Lactating Mother- Z39.1 Breast Engorgement relative to infant born at 34 gestation - BW 2.035 (4lb/8oz) P92.9 Feeding problem of , unspecified Premature in ICN from mother- P07.30 Prematurity Beto Stinson RN Intensive Care Nursery Insurance Sales AgentBuffer Inflated Pad of Care Management Phone:# [phone] Beeper: #[id number] Fax: # [phone] * Yoly Cueva MD - 09/10/2017 4:25 [...] discussed on Multidisciplinary Rounds YOLY CUEVA MD Predatory Animal Hunter PGY-4 08/30/2017 Associated attestation - Crow Vasquez [...] discussed on Multidisciplinary Rounds JHONATHAN ROBERTSON MD Predatory Animal Hunter PGY-3 08/30/2017 Associated attestation - Crow Vasquez [...] discussed on Multidisciplinary Rounds JHONATHAN ROBERTSON MD Predatory Animal Hunter PGY-3 08/30/2017 Associated attestation - Crow Vasquez [...] risk of hemorrhage. Delivery scheduled at 34w0d. aJne Vasquez MD Maternal- Medicine * Jhonathan Robertson [...] Note Office of Care Management Follow Up: DIRECTOR PAYER met with pt today at bedside to check in on her. Pt is very excited that she will be having herc/s on Thursday and has been talking about holding her baby and being able to meet her. DIRECTOR PAYER reminded went over [employer] again and let pt know she can use [employer] to get groceries during her [employer] stay. Plan: Arrange for breast pump after delivery and continue to provide support to pt. DIEGO Ruiz Pager: [phone] * Jhonathan Robertson MD - 09/07/2017 6:26 [...] discussed on Multidisciplinary Rounds JHONATHAN ROBERTSON MD Predatory Animal Hunter PGY-3 08/30/2017 Associated attestation - Arturo Waterman [...] discussed on Multidisciplinary Rounds YOLY CUEVA MD Predatory Animal Hunter PGY-4 08/30/2017 Associated attestation - Emanuel Barrett [...] Miralax PRN Patient discussed on Multidisciplinary Rounds EMREITA ROSARIO MD Predatory Animal Hunter PGY3 08/30/2017 Associated attestation - Emanuel Barrett [...] Subjective: No bleeding, loss of fluid, cramping, ricahrd, or decreased movement. Review of Systems Obstetric [...] discussed on Multidisciplinary Rounds JHONATHAN ROBERTSON MD Predatory Animal Hunter PGY3 08/30/2017 Associated attestation - Crow Vasquez [...] discussed on Multidisciplinary Rounds JHONATHAN ROBERTSON MD Predatory Animal Hunter PGY3 08/30/2017 Associated attestation - Emanuel Barrett [...] discussed on Multidisciplinary Rounds JHONATHAN ROBERTSON MD Predatory Animal Hunter PGY3 08/30/2017 Associated attestation - Emanuel Barrett [...] discussed on Multidisciplinary Rounds JHONATHAN ROBERTSON MD Predatory Animal Hunter PGY3 08/30/2017 Associated attestation - Emanuel Barrett [...] Social Work Note Office of Care Management DIRECTOR PAYER met with pt at bedside to check in. Pt reports she is doing well and is still counting down thedays until baby is born. She seems to be in higher spirits the closer the due date is. Pt reports no needs as of now. Plan: F/u with pt next week or as needed. DIEGO Ruiz Pager: [phone] * Jhonathan Robertson MD - 08/31/2017 5:07 [...] discussed on Multidisciplinary Rounds JHONATHAN ROBERTSON MD Predatory Animal Hunter PGY3 08/30/2017 Associated attestation - Emanuel Barrett [...] discussed on Multidisciplinary Rounds JHONATHAN ROBERTSON MD Predatory Animal Hunter PGY3 08/30/2017 Associated attestation - Crow Vasquez [...] diabetes mellitus (GDM): diagnosed at 7 weeks ncxudsgir74/06/2017 ??? Hospital-Previous section x 2 05/29/2017 Reason [...] for ordering her meals. Pt expressed to newspaper writer that she enjoys her current diet [...] Gabriel MD - 08/27/2017 7:11 PM EST reticle printer Progress Note Presented to room to discuss [...] struggling with her stay on the [facility]. She feels like she is in care home and her mental health is impacted. I [...] Note Office of Care Management Follow Up: DIRECTOR PAYER met with pt at bedside to check in on her. Pt reports she is doing well and is excited that sheis getting closer to delivery date. She seems in higher spirits today than last week and reports she had somewhat of a relaxing New Year's Rosa. Plan: Deliver weekly gas card to pt and check in on her as needed. DIEGO Ruiz Pager: [phone] * Yoly Cueva MD - 08/25/2017 1:50 [...] diabetes mellitus (GDM): diagnosed at 7 weeks ejuuddbts94/06/2017 ??? Hospital-Previous section x 2 05/29/2017 Reason [...] swallowing. Nursing documentation notes 100% PO intake. Roller Shop Utility Worker offered to have snacks sent between meals but pt declined stating she did not to waste them as she does not always eats them. Pt made joke with newspaper writer stating she wants unhealthyfoods between meals [...] Note Office of Care Management Follow Up: DIRECTOR PAYER met with pt at bedside to f/u from yesterday's visit. Pt seems to have calmed down quite a bit from yesterday and was very agreeable to speaking with DIRECTOR PAYER. We talked about what the pt currently has control of in her life and how she feels about it. DIRECTOR PAYER also went over some CBT techniques that pt can use when she begins to feel overwhelmed. BIT referral was also made and someone will be coming to meet with pt. Plan: DIRECTOR PAYER will continue to follow pt for needs. DIEGO Ruiz Pager: [phone] * TitusDesean - 08/19/2017 7:16 AM EST Images from [...] Note Office of Care Management Follow Up: DIRECTOR PAYER met with pt at bedside. She was visibly upset and crying. Pt is emotionally distressed over notbeing able to see her children on a regular basis and not having the freedom to leave the hospital. Plan: DIRECTOR PAYER will put in BIT referral and provide pt with some relaxation tips and references. DIEGO Ruiz Pager: [phone] * Latasha Nj - 08/18/2017 4:39 PM [...] hospitalization for [facility] to [facility], [facility] Reassuring testing to date GDM A2 Plan: [...] diabetes mellitus (GDM): diagnosed at 7 weeks gaxkgombi26/06/2017 ??? Hospital-Previous section x 2 05/29/2017 Reason [...] SOTO MD PGY4 08/14/2017 Associated attestation - mEanuel Barrett MD - 08/19/2017 8:58 AM EST [...] in conjunction with Emerita Rosario, PGY3. DESEAN STOO MD PGY4 08/12/2017 Associated attestation - Emanuel [...] interpretation. Obdulia Crenshaw MD * Stephanie Moseley DIRECTOR PAYER - 08/10/2017 11:59 AM EST Social Work Note Office of Care Management DIRECTOR PAYER met with pt at bedside to check in with her. Pt reports she is doing well, just tired. Presentsno needs at this time. Plan: DIRECTOR PAYER informed pt she would look into gas card from [employer] for this week. DIEGO Ruiz Pager: [phone] * Emerita Rosario - 08/10/2017 11:01 AM [...] diabetes mellitus (GDM): diagnosed at 7 weeks jfdakpisd15/06/2017 ??? Hospital-Previous section x 2 05/29/2017 Reason [...] 27 y.o. woman at 28w4d with an CIHTRA of 10/25/2017, admitted for monitoring in the [...] Miralax PRN Patient discussed on Multidisciplinary Rounds. EMREITA ROSARIO MD PGY3 08/06/2017 Associated attestation - [...] not included. Obstetrical Antepartum Progress Note Pam Laek is a 27 y.o. woman at 28w3d [...] Note Office of Care Management Follow Up: DIRECTOR PAYER met with pt as she was asking about a gas card so her children could visit her in the hospital.DIRECTOR PAYER spoke with Nuvia at [employer] and she has tubed over a $20 gas card for pt. Pt was very happy and appreciative of gas card. Plan: DIRECTOR PAYER will continue to follow pt for needs. DIEGO Ruiz Pager: [phone] * Emerita Rosario Rosie - 08/03/2017 9:03 [...] 2 24 Hour Events -Reactive NST yesterday -[place] contractions yesterday, nothing seen on toco Subjective: [...] gas cards for visiting. DIEGO ORTIZ Weekend Area Intelligence Technician Pager [phone] * Jhonathan Robertson MD - 08/01/2017 12:11 [...] gave her information on parent/child center in [facility]. Pt declined referral at this time but asked newspaper writer to check back later. DIRECTOR PAYER also spoke with pt about a concern [...] a volunteer cuddler during her stay here. DIRECTOR PAYER told pt she would ask medical staff. Plan: DIRECTOR PAYER will continue to follow pt for needs. DIEGO Ruiz Pager: [phone] * Li Lehman, RD - 07/31/2017 3:38 [...] and be left alone. BS obtained by glove turner and former automatic, will plan to leave pt alone for [...] not want to talk much to this newspaper writer. Activity Level: sedentary/bedrest BMI before : [...] Dispense Refill Last Dose ??? vitamin with fhokgyql-Bv-Pbpj-FA Tablet Take 1 tablet by mouth daily. [...] 145, Variability: moderate, Accels: yes, Decels: none, [place]: No contractions Reactive for gestational age Record [...] seen and discussed with Dr. Zurita, Attending WIRE STITCHER. EMERITA ROSARIO MD PGY3 07/28/2017 Attending note [...] home - pt plans to stay at [facility] while infant in ICN. INDIVIDUALIZED FALL PREVENTION INTERVENTIONS: Patient-specific [...] is all packed for her stay at [facility] until she can bring her baby home. Kristin Beauchamp, [facility], [facility] [phone] Pager [phone] * Plan of Care - Rubi Curran [...] 16.13) performed by Chely Sin MD at [facility] ??? PRO CYSTOURETHROSCOPY N/A 09/11/2017 CYSTO, CYSTOURETHROSCOPY, DIAGNOSTIC (WRVU 2.23) performed by Chely Sin MD at [facility] ??? PRO SUPRACERV ABD HYSTERECTOMY N/A 09/11/2017 @HYSTERECTOMY, ABD, SUPRACERVICAL (WRVU 16.6) performed by Chely Sin MD at [facility] Subjective: Patient/Family/Caregiver Comments/Observations: Oh that hurts [...] this evaluation. RUBI CURRAN, PT, DPT Pager: [phone] Inpatient Physical Therapy * Plan of Care [...] until Mon or , then go to [facility], has no support at home and [...] Problems Present (Hysterectomy) none * Note - Rosairo Noyola RN - 09/14/2017 6:56 PM EST This note was copied from a baby's chart. Services Note: S/O Met with michele Orzoco mom in her birthing pavilion room 17. [...] 48 hours if develop symptoms of engorgement Ladd oil to nipples prior to pumping Frequent and prolonged maternal- skin to skin contact Close support and follow up Pam given the following pamphlets: Providing breast milk for your baby in the intensive care nursery Breast feeding your premature baby Rosario Noyola RN IBCLC [facility] Services * Consult Note - Kristin Beauchamp - 09/14/2017 1:12 PM EST Behavioral Intervention Team (BIT) GUADALUPE CORTEZ attempted to meet with Pam who was sleeping. Will try again later. Kristin Beauchamp, [facility], [facility] [phone] Pager [phone] * Plan of Care - Yumiko [place] [...] until Mon or , then go to [facility], has no support at home and [...] until Mon or Tu, then go to [facility], has no support at home and [...] SUMMARY: Amador out, voiding on own. DCd STRIKE WARFARE/MISSILE SYSTEMS OFFICER, switched to po pain meds and IV [...] VS stable, pain controlled with use of STRIKE WARFARE/MISSILE SYSTEMS OFFICER-Dilaudid. [place]ador catheter in place, draining adequately to [...] wall / posterior rectus sheath. ?Viable female in cephalic presentation, [id number] grams and Apgars of 4, 7 and [...] Information for the patient's : Michele Lake [[id number]] DELIVERY SUMMARY FOR Baby Jess Lake (please [...] Combined est. blood loss (mL): 2500 Delivery ([place]) Delivery Date: 09/11/17 Delivery Time: 115 Sex: Female Presentation: Vertex Attempted ?: No Delivery Type: Delivery Type (Specific): Lower Segment Transverse Major Indications - : placenta previa Shoulder Dystocia Shoulder dystocia present?: No Delivery Information Delivery Location: OR Delivering Clinician: YOLY CUEVA ICN Staff Present: Yes Other Personnel: Provider Role TIFFANYALISSON Delivery Nurse CHELY SIN Building Construction Supervisor LETITIA SCHMIDT Delivery Assist YOLY CUEVA Resident [...] and Skin to Skin Maternal Choice for [place](s) Feeding on Admission: Skin to skin initiation date/time: Reason skin to skin not initiated: Maternal Acuity Medications Medications Given: vitamin K, erythromycin Measurements Weight: [...] G 5 p 2 patient on the [facility] with at 34 weeks gestation complicated with vasa previa. I reviewed history in chart as well as oral history from Pam. She was referred as a maternal- transfer from [facility] Relevant History: Pam Lake is a 27 [...] Note ?? Patient Name: Pam Lake : [id number] MR#: [id number] ?? Case Date: 09/11/2017 ?? Surgeon: Surgeon(s) and Role: * Chely Sin MD - Primary * Yoly Cueva MD - Resident-Surgeon Chief * Samantha Ocampo- [facility]-3 ?? Preoperative diagnosis: 1. 34 wk [...] was brought to the incision. A vigorous was delivered without difficulty. The cordwas clamped [...] and the remainderwas closed with 0-Vicryl with ehkszd-hu-genbs sutures. There was bleeding along the left [...] Operative Note Patient Name: Pam Lake : [id number] MR#: [id number] Case Date: 09/11/2017 Surgeon: Surgeon(s) and Role: [...] wished to meet later today. Kristin Beauchamp, [facility], DCS [phone] Pager [phone] * Plan of Care - Arturo Marquez [...] and requested I return later. Kristin Beauchamp, [facility], [facility] [phone] Pager [phone] * Plan of Care - Becca Bailey [...] on 07/28 and was referred to BIT DIRECTOR PAYER for supportive therapy due to her prolonged admission. Record reviewed and discussed with nurses and DIRECTOR PAYERStephanie Miguel. Relevant Information: Introduced the role of BIT SW and the following was discussed. Pam lives in [facility] [place] with her son, Blayne Bang, and her daughter Jermaine, Julieta. During this admission, her children are being cared for by her ex- who is the father of Jermaine. The FOB lives in [place], their relationship is cordial and they talk occasionally on the phone. She feels abandoned by him and isunsure if he will be involved with this baby. Pam is the youngest of three children. She has limited contact with her brother who resides in [place], [place]., her sister is addicted to drugs and lives on the streets of [place], [place]. Pam has 13 nieces and nephews, age 3-13 and enjoys having all of them at her house for sleep overs. 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 Pam identifies her friends as her emotional support system, as well as, her therapist at [facility] who she has seen for 2 years. This prolonged admission has been difficult because her friends, who live over an hour away, have not been able to visit. Her ex- brings her children for a visit on the weekends and she missesthem very much. Additionally, Pam feels like she is in care home because she is restricted to the unit. She is English and loves to cook and has had [...] NICU. While her baby remains at [facility], [facility] and have her other two children come [...] sometimes she cannot shut down herbrain. This newspaper writer provided her with online resources to address her insomnia, anxiety and depression and will connect her with the [employer] which she would enjoy. Assessment/Plan: [...] to provide support and interventions. Kristin Beauchamp, [facility], DCSW [phone] Pager [phone] * Consult Note - Kristin Beauchamp - 09/03/2017 1:32 PM EST Behavioral Intervention Team (BIT) Attempted to meet with Pam who was napping and requested I return later today. STACY Curtis, [facility] [phone] Pager [phone] * Consult Note - Kristin Beauchamp - 09/03/2017 10:30 AM EST Behavioral Intervention Team (BIT) Referral: Pam Lake was admitted for vasa previa on on 07/28 and was referred to BIT DIRECTOR PAYER for supportive therapy due to her prolonged admission. Record reviewed and discussed with BP RN, Letitia Kelley and DIRECTOR PAYER Stephanie. Per nursing and social work reports, this admission has been difficult for Pam, who has two other children at home. Additionally she is restricted to the unit in order to remain in close proximity to the OR. BIT DIRECTOR PAYER will return later today as Pam prefers not to be disturbed until after noon time. STACY Dorantes, [facility] [phone] Pager [phone] * Plan of Care - Arturo Marquez [...] Intervention Team (BIT) Referral: Referred to BIT DIRECTOR PAYER for supportive therapy by BP AGUILAR. Per chart, PPHx of PTSD. Record reviewed and discussed with BP FAY. Relevant Information: Attempted to meet with patient x2 today. Patient unavailable both attempts, asked this newspaper writer to f/u at a later time. Assessment/Plan: GUADALUPE AUW will continue to follow for supportive therapy while hospitalized. DIEGO Cat Phone: [phone] Pager: [phone] * Plan of Care - Kristin Morley [...] WDL PLAN MOVING FORWARD: Continue monitoring per director of accounts receivable [employer] INDIVIDUALIZED FALL PREVENTION INTERVENTIONS: Patient-specific fall [...] PLAN MOVING FORWARD: Continue monitoring per high lift operator [employer] INDIVIDUALIZED FALL PREVENTION INTERVENTIONS: Patient-specific fall [...] Outcome: Ongoing (Interventions Implemented as Appropriate) 08/12/1741108/26/17 2554 Discharge Needs Assessment Concerns To Be Addressed [...] and paperwork given. Gestational Diabetes handout from [facility]. PLAN MOVING FORWARD: No change. Continue to [...] leaking, and bleeding. Pt had more frequent [place] contractions than usual early on in the [...] ) none * Plan of Care - uYmiko Cochran RN - 08/17/2017 6:34 PM EST [...] This RN will consider consult to social work/grain elevator man for emotional support during extended stay. INDIVIDUALIZED [...] discussed pt's frustrations and desires with charge aide, Joy Bond, and with MDs Nino. PLAN MOVING FORWARD: MDs and charge aide said they would pass along pt requests [...] Outcome: Ongoing (Interventions Implemented as Appropriate) 08/12/17 3576 Plan of Care Review Progress no change [...] Outcome: Ongoing (Interventions Implemented as Appropriate) 08/11/17 0891 High-Risk/Critically Ill OB Patient Problems Assessed (Critically [...] Pt ambulated off unit this shift to [employer] [facility]; RN educated patient about leaving the [...] (Interventions Implemented as Appropriate) 08/01/1742408/03/17 0559 08/04/17 7449 Discharge Needs Assessment Concerns To Be Addressed [...] Status 0 -- Score 20 -- OTHER [place] Fall Risk Low -- Restraint Interventions Safety [...] Care Management Initial Assessment Stephanie H Juniker, DIRECTOR PAYER reviewed record and discussed patient with Care [...] he will be helpful with the baby. DIRECTOR PAYER also educated pt on what to expect if her baby is admitted to the [facility]. DIRECTOR PAYER went over [facility], activity cart, massage/Reiki services, lack of privacy in [facility], andfamily rounds she can be involved in. [...] [place] is and FA currently lives in [place]. She states that money is tight for him due to hurricane and he will not be able to come up to [place] for the of the baby. DIRECTOR PAYER spoke with pt about parent child center [...] currently sees a counselor at [facility] and is happy with this arrangement. Pt [...] Discharge/Special Considerations: none at this time Plan: DIRECTOR PAYER will continue to follow pt each week and check in on her for needs/questions. A member of the Care Management team will continue to monitor progress, follow for continuity of care and assist with transition of care planning. DIEGO Walker Pager: [phone] * Med Student H&P - Yossi Zurita [...] -3.175 kg (-7 lb) Movement: Yes Contractions: [place] contractions. Leaking: None Bleeding: none Preeclampsia signs and symptoms: None Past Obstetric history: OB History Para Term AB Living 5 2 2 0 2 3 SAB TAB Ectopic Multiple Live Births 1 1 1 Obstetric Comments Gestational diabetes 1st , pre-eclampsia 1st PMH: Asthma (rescue inhaler used ~3X per year when sick) Surgical history: In September at [facility] had to have her Mirena removed [...] Dispense Refill Last Dose ??? vitamin with [id number] Tablet Take 1 tablet by mouth daily. [...] 150, Variability: moderate, Accels: yes, Decels: variable, [place]: None Category: II Record Review Labs Most [...] POCT GLUCOSE Routine 09/10/2017 12:58 PM EST EXTRACTIONS TECHNOLOGIST SCAN 09/10/2017 12:00 AM EST POCT GLUCOSE [...] 4:15 AM EST) Neutrophil % 53.4 % [facility] Neutrophil Absolute 3.14 1.70 - 6.10 x10(3)/mc L [facility] Lymph % 33.3 % [facility] Lymphocytes Abs 2.0 0.9 - 3.2 x10(3)/mc L [facility] Monocyte % 9.7 % [facility] Monocyte Abs 0.6 0.3 - 0.9 x10(3)/mc L [facility] Eos % 2.4 % [facility] Eosinophils Abs 0.1 0.0 - 0.4 x10(3)/mc L [facility] Basophil % 0.3 % [facility] Baso Absolute 0.0 0.0 - 0.1 x10(3)/mc L [facility] Immature Gran % 0.90 % [facility] Comment: Immature granulocytes(IG's)percentage and absolute count will include metamyelocytes, myelocytes, and promyelocytes. Blood smears from CBCs yielding IG's will be scanned manually for concordance. If this scan disagrees with the automated IG or if promyelocytes are noted, a manual differential will be performed. Immature Gran Absolute 0.05(H) 0.00 - 0.04 x10(3)/mc L [facility] Blood specimen (specimen) 09/15/2017 4:15 AM EST 09/15/2017 4:30 AM EST Narrative Resulting Agency Comment Spec In Lab Arturo Waterman MD HEMATOLOGY ORDERABLE S [facility] [place] [address] * (ABNORMAL) Hemogram (09/15/2017 4:15 AM EST) White Blood Cell 5.9 4.0 - 9.5 x10(3)/[facility] Red Blood Cell 2.39(L) 4.00 - 5.21 x10(6)/[facility] Hemoglobin 7.0(L) 11.7 - 15.5 gm/dL [facility] Hematocrit 20.8(L) 35.7 - 45.8 % [facility] Mean Cell Volume 87.0 82.6 - 94.4 fL [facility] Mean Cell Hemoglobin 29.3 27.1 - 32.0 pg [facility] Mean Cell Hemoglobin Concentration 33.7 31.7 - 35.0 gm/dL [facility] Platelet 247 145 - 357 x10(3)/[facility] RDW Standard Deviation 41.6 37.0 - 46.0 [facility] RDW coefficient of variation 13.4 11.5 - 14.1 % [facility] Mean Platelet Volume 8.4 7.6 - 12.9 [facility] NRBC% auto 0.0 % [facility] NRBC Absolute 0.000 0.000 - 0.000 x10(3)/ L [facility] Blood specimen (specimen) 09/15/2017 4:15 AM EST 09/15/2017 4:30 AM EST Narrative Resulting Agency Comment Spec In Lab Arturo Waterman MD HEMATOLOGY ORDERABLE S Performing Organization Address City/[facility]/ZIP Co de Phone Number [facility] [place] [address] * Basic Metabolic Panel (non-fasting) (09/15/2017 4:15 AM EST) Glucose 113 65 - 199 mg/dL [facility] Comment:Diabetes: >=200 mg/d L plus symptoms Blood Urea Nitrogen 9 8 - 18 mg/dL [facility] Creatinine 0.93 0.70 - 1.20 mg/dL [facility] Sodium 140 135 - 145 mmol/L [facility] Potassium 3.5 3.5 - 5.0 mmol/L [facility] Comment: Please note: ??Patients with WBC >100,000 may have falsely elevated Potassium levels. ??For accurate Potassium quantification in these patients send serum separator tube (gold top) for subsequent determinations. ??Contact the Clinical Chemistry Laboratory if there are any questions. Chloride 102 98 - 107 mmol/L [facility] Carbon Dioxide 27 22 - 31 mmol/L [facility] Anion Gap 11 5 - 15 mmol/L [facility] Calcium 8.6 8.5 - 10.5 mg/dL [facility] Est Glomerular Filtration Rate >60 >=60 [facility] Comment: The reported eGFR should be multiplied by 1.2 for patients. The MDRD is not an appropriate measure of renal function for patients with body mass extremes or in patients with acute kidney failure. [email or web address]/DHnkdep [email or web address]/DHMCnkf Blood specimen (specimen) 09/15/2017 4:15 AM EST 09/15/2017 4:30 AM EST Narrative Resulting Agency Comment Spec In Lab Arturo Waterman MD CHEMISTRY ORDERABLES Performing Organization Address City/[facility]/ZIP Co de Phone Number [facility] [place] [address] * (ABNORMAL) Differential, Automated (09/14/2017 8:10 AM EST) Pathologist [facility] Neutrophil % 57.5 % [facility] Neutrophil Absolute 3.93 1.70 - 6.10 x10(3)/ L [facility] Lymph % 31.8 % [facility] Lymphocytes Abs 2.2 0.9 - 3.2 x10(3)/ L [facility] Monocyte % 8.5 % [facility] Monocyte Abs 0.6 0.3 - 0.9 x10(3)/ L [facility] Eos % 1.2 % [facility] Eosinophils Abs 0.1 0.0 - 0.4 x10(3)/[facility] Basophil % 0.3 % [facility] Baso Absolute 0.0 0.0 - 0.1 x10(3)/ L [facility] Immature Gran % 0.70 % [facility] Comment: Immature granulocytes(IG's)percentage and absolute count will include metamyelocytes, myelocytes, and promyelocytes. Blood smears from CBCs yielding IG's will be scanned manually for concordance. If this scan disagrees with the automated IG or if promyelocytes are noted, a manual differential will be performed. Immature Gran Absolute 0.05(H) 0.00 - 0.04 x10(3)/ L [facility] Blood specimen (specimen) 09/14/2017 8:10 AM EST 09/14/2017 8:38 AM EST Narrative Resulting Agency Comment Spec In Lab Arturo Waterman MD HEMATOLOGY ORDERABLE S [facility] [place] [address] * (ABNORMAL) Hemogram (09/14/2017 8:10 AM EST) [facility] White Blood Cell 6.8 4.0 - 9.5 x10(3)/[facility] Red Blood Cell 2.24(L) 4.00 - 5.21 x10(6)/ L [facility] Hemoglobin 6.6(L) 11.7 - 15.5 gm/dL [facility] Hematocrit 19.4(L) 35.7 - 45.8 % [facility] Mean Cell Volume 86.6 82.6 - 94.4 fL [facility] Mean Cell Hemoglobin 29.5 27.1 - 32.0 pg [facility] Mean Cell Hemoglobin Concentration 34.0 31.7 - 35.0 gm/dL [facility] Platelet 213 145 - 357 x10(3)/[facility] RDW Standard Deviation 41.7 37.0 - 46.0 fL [facility] RDW coefficient of variation 13.6 11.5 - 14.1 % [facility] Mean Platelet Volume 8.3 7.6 - 12.9 fL [facility] NRBC% auto 0.0 % [facility] NRBC Absolute 0.000 0.000 - 0.000 x10(3)/[facility] Blood specimen (specimen) 09/14/2017 8:10 AM EST 09/14/2017 8:38 AM EST Narrative Resulting Agency Comment Spec In Lab Arturo Waterman MD HEMATOLOGY ORDERABLE S [facility] [place] [address] * (ABNORMAL) Basic Metabolic Panel (non-fasting) (09/14/2017 8:10 AM EST) Glucose 97 65 - 199 mg/dL [facility] Comment:Diabetes: >=200 mg/d L plus symptoms Blood Urea Nitrogen 6(L) 8 - 18 mg/dL [facility] Creatinine 0.54(L) 0.70 - 1.20 mg/dL [facility] Sodium 140 135 - 145 mmol/L [facility] Potassium 3.7 3.5 - 5.0 mmol/L [facility] Comment: Please note: ??Patients with WBC >100,000 may have falsely elevated Potassium levels. ??For accurate Potassium quantification in these patients send serum separator tube (gold top) for subsequent determinations. ??Contact the Clinical Chemistry Laboratory if there are any questions. Chloride 102 98 - 107 mmol/L [facility] Carbon Dioxide 27 22 - 31 mmol/L [facility] Anion Gap 11 5 - 15 mmol/L [facility] Calcium 8.5 8.5 - 10.5 mg/dL [facility] Est Glomerular Filtration Rate >60 >=60 [facility] Comment: The reported eGFR should be multiplied by 1.2 for patients. The MDRD is not an appropriate measure of renal function for patients with body mass extremes or in patients with acute kidney failure. http://[employer]/DHnkdep [email or web address]://[employer]/DHMCnkf Blood specimen (specimen) 09/14/2017 8:10 AM EST 09/14/2017 8:38 AM EST Narrative Resulting Agency Comment Spec In Lab Arturo Waterman MD CHEMISTRY ORDERABLES [facility] [place] [address] * (ABNORMAL) Differential, Automated (09/13/2017 6:25 AM EST) Neutrophil % 60.5 % [facility] Neutrophil Absolute 5.31 1.70 - 6.10 x10(3)/mc L [facility] Lymph % 27.8 % [facility] Lymphocytes Abs 2.4 0.9 - 3.2 x10(3)/mc L [facility] Monocyte % 10.1 % [facility] Monocyte Abs 0.9 0.3 - 0.9 x10(3)/[facility] Eos % 0.7 % [facility] Eosinophils Abs 0.1 0.0 - 0.4 x10(3)/[facility] Basophil % 0.3 % [facility] Baso Absolute 0.0 0.0 - 0.1 x10(3)/[facility] Immature Gran % 0.60 % [facility] Comment: Immature granulocytes(IG's)percentage and absolute count will include metamyelocytes, myelocytes, and promyelocytes. Blood smears from CBCs yielding IG's will be scanned manually for concordance. If this scan disagrees with the automated IG or if promyelocytes are noted, a manual differential will be performed. Immature Gran Absolute 0.05(H) 0.00 - 0.04 x10(3)/[facility] Blood specimen (specimen) 09/13/2017 6:25 AM EST 09/13/2017 6:40 AM EST Narrative Resulting Agency Comment Spec In Lab Arturo Waterman MD HEMATOLOGY ORDERABLE S [facility] [place] [address] * (ABNORMAL) Hemogram (09/13/2017 6:25 AM EST) White Blood Cell 8.8 4.0 - 9.5 x10(3)/[facility] Red Blood Cell 2.43(L) 4.00 - 5.21 x10(6)/[facility] Hemoglobin 7.1(L) 11.7 - 15.5 gm/dL [facility] Hematocrit 20.9(L) 35.7 - 45.8 % [facility] Mean Cell Volume 86.0 82.6 - 94.4 fL [facility] Mean Cell Hemoglobin 29.2 27.1 - 32.0 pg [facility] Mean Cell Hemoglobin Concentration 34.0 31.7 - 35.0 gm/dL [facility] Platelet 187 145 - 357 x10(3)/mc L [facility] RDW Standard Deviation 41.3 37.0 - 46.0 fL [facility] RDW coefficient of variation 13.4 11.5 - 14.1 % [facility] Mean Platelet Volume 8.3 7.6 - 12.9 fL [facility] NRBC% auto 0.0 % [facility] NRBC Absolute 0.000 0.000 - 0.000 x10(3)/mc L [facility] Blood specimen (specimen) 09/13/2017 6:25 AM EST 09/13/2017 6:40 AM EST Narrative Resulting Agency Comment Spec In Lab Arturo Waterman MD HEMATOLOGY ORDERABLE S Performing Organization Address City/State/[facility] Co de Phone Number [facility] [place] [address] * (ABNORMAL) Basic Metabolic Panel (non-fasting) (09/13/2017 6:25 AM EST) Glucose 94 65 - 199 mg/dL [facility] Comment:Diabetes: >=200 mg/d L plus symptoms Blood Urea Nitrogen 7(L) 8 - 18 mg/dL [facility] Creatinine 0.65(L) 0.70 - 1.20 mg/dL [facility] Sodium 137 135 - 145 mmol/L [facility] Potassium 3.7 3.5 - 5.0 mmol/L [facility] Comment: Please note: ??Patients with WBC >100,000 may have falsely elevated Potassium levels. ??For accurate Potassium quantification in these patients send serum separator tube (gold top) for subsequent determinations. ??Contact the Clinical Chemistry Laboratory if there are any questions. Chloride 99 98 - 107 mmol/L [facility] Carbon Dioxide 24 22 - 31 mmol/L [facility] Anion Gap 14 5 - 15 mmol/L [facility] Calcium 8.4(L) 8.5 - 10.5 mg/dL [facility] Est Glomerular Filtration Rate >60 >=60 [facility] Comment: The reported eGFR should be multiplied by 1.2 for patients. The MDRD is not an appropriate measure of renal function for patients with body mass extremes or in patients with acute kidney failure. http://[employer]/DHnkdep http://[employer]/DHMCnkf Blood specimen (specimen) 09/13/2017 6:25 AM EST 09/13/2017 6:40 AM EST Narrative Resulting Agency Comment Spec In Lab Arturo Waterman MD CHEMISTRY ORDERABLES [facility] [place] [address] * (ABNORMAL) Differential, Automated (09/12/2017 6:10 AM EST) Neutrophil % 66.0 % [facility] Neutrophil Absolute 5.44 1.70 - 6.10 x10(3)/mc L [facility] Lymph % 23.3 % [facility] Lymphocytes Abs 1.9 0.9 - 3.2 x10(3)/mc L [facility] Monocyte % 9.7 % [facility] Monocyte Abs 0.8 0.3 - 0.9 x10(3)/mc L [facility] Eos % 0.2 % [facility] Eosinophils Abs 0.0 0.0 - 0.4 x10(3)/mc L [facility] Basophil % 0.2 % [facility] Baso Absolute 0.0 0.0 - 0.1 x10(3)/mc L [facility] Immature Gran % 0.60 % [facility] Comment: Immature granulocytes(IG's)percentage and absolute count will include metamyelocytes, myelocytes, and promyelocytes. Blood smears from CBCs yielding IG's will be scanned manually for concordance. If this scan disagrees with the automated IG or if promyelocytes are noted, a manual differential will be performed. Immature Gran Absolute 0.05(H) 0.00 - 0.04 x10(3)/mc L [facility] Blood specimen (specimen) 09/12/2017 6:10 AM EST 09/12/2017 6:21 AM EST Narrative Resulting Agency Comment Spec In Lab Arturo Waterman MD HEMATOLOGY ORDERABLE S [facility] [place] [address] * (ABNORMAL) Hemogram (09/12/2017 6:10 AM EST) White Blood Cell 8.2 4.0 - 9.5 x10(3)/mc L [facility] Red Blood Cell 2.62(L) 4.00 - 5.21 x10(6)/mc L [facility] Hemoglobin 7.6(L) 11.7 - 15.5 gm/dL [facility] Comment: This result has been called to EMERITA CADENA by Gail Ramires on 09 12 2017 at 0635, and has been read back. Hematocrit 22.1(L) 35.7 - 45.8 % [facility] Mean Cell Volume 84.4 82.6 - 94.4 fL [facility] Mean Cell Hemoglobin 29.0 27.1 - 32.0 pg [facility] Mean Cell Hemoglobin Concentration 34.4 31.7 - 35.0 gm/dL [facility] Platelet 190 145 - 357 x10(3)/mc L [facility] RDW Standard Deviation 40.1 37.0 - 46.0 fL [facility] RDW coefficient of variation 13.2 11.5 - 14.1 % [facility] Mean Platelet Volume 8.5 7.6 - 12.9 fL [facility] NRBC% auto 0.0 % [facility] NRBC Absolute 0.000 0.000 - 0.000 x10(3)/mc L [facility] Blood specimen (specimen) 09/12/2017 6:10 AM EST 09/12/2017 6:21 AM EST Narrative Resulting Agency Comment Spec In Lab Arturo Waterman MD HEMATOLOGY ORDERABLE S [facility] [place] [address] * (ABNORMAL) Basic Metabolic Panel (non-fasting) (09/12/2017 6:10 AM EST) Glucose 87 65 - 199 mg/dL [facility] Comment:Diabetes: >=200 mg/d L plus symptoms Blood Urea Nitrogen 5(L) 8 - 18 mg/dL [facility] Creatinine 0.57(L) 0.70 - 1.20 mg/dL [facility] Sodium 135 135 - 145 mmol/L [facility] Potassium 4.3 3.5 - 5.0 mmol/L [facility] Comment: Please note: ??Patients with WBC >100,000 may have falsely elevated Potassium levels. ??For accurate Potassium quantification in these patients send serum separator tube (gold top) for subsequent determinations. ??Contact the Clinical Chemistry Laboratory if there are any questions. Chloride 99 98 - 107 mmol/L [facility] Carbon Dioxide 24 22 - 31 mmol/L [facility] Anion Gap 12 5 - 15 mmol/L [facility] Calcium 7.8(L) 8.5 - 10.5 mg/dL [facility] Est Glomerular Filtration Rate >60 >=60 [facility] Comment: The reported eGFR should be multiplied by 1.2 for patients. The MDRD is not an appropriate measure of renal function for patients with body mass extremes or in patients with acute kidney failure. http://[employer]/DHnkdep http://[employer]/DHMCnkf Blood specimen (specimen) 09/12/2017 6:10 AM EST 09/12/2017 6:21 AM EST Narrative Resulting Agency Comment Spec In Lab Arturo Waterman MD CHEMISTRY ORDERABLES Performing Organization Address [facility] Co de Phone Number [facility] [place] [address] * (ABNORMAL) Magnesium (09/12/2017 6:10 AM EST) Magnesium 0.63(L) 0.69 - 1.07 mmol/L [facility] Blood specimen (specimen) 09/12/2017 6:10 AM EST 09/12/2017 6:21 AM EST Narrative Resulting Agency Comment Spec In Lab Arturo Waterman MD CHEMISTRY ORDERABLES Performing Organization Address [facility] Co de Phone Number [facility] [place] [address] * Specimen to Pathology (09/11/2017 4:04 PM EST) AP Specimen 09/11/2017 4:04 PM EST 09/11/2017 4:04 PM EST Narrative [facility] - 09/11/2017 4:04 PM EST Specimen requisition ordered. ??Separate Pathology report to follow Arturo Waterman MD PATHOLOGY/CYTOLOGY O RDERABLES Performing Organization Address [facility] Co de Phone Number [facility] [place] [address] * (ABNORMAL) Differential, Automated (09/11/2017 2:57 PM EST) Neutrophil % 86.4 % [facility] Neutrophil Absolute 11.87(H) 1.70 - 6.10 x10(3)/mc L [facility] Lymph % 8.5 % [facility] Lymphocytes Abs 1.2 0.9 - 3.2 x10(3)/mc L [facility] Monocyte % 4.4 % [facility] Monocyte Abs 0.6 0.3 - 0.9 x10(3)/[facility] Eos % 0.0 % [facility] Eosinophils Abs 0.0 0.0 - 0.4 x10(3)/[facility] Basophil % 0.1 % [facility] Baso Absolute 0.0 0.0 - 0.1 x10(3)/[facility] Immature Gran % 0.60 % [facility] Comment: Immature granulocytes(IG's)percentage and absolute count will include metamyelocytes, myelocytes, and promyelocytes. Blood smears from CBCs yielding IG's will be scanned manually for concordance. If this scan disagrees with the automated IG or if promyelocytes are noted, a manual differential will be performed. Immature Gran Absolute 0.08(H) 0.00 - 0.04 x10(3)/[facility] Blood specimen (specimen) 09/11/2017 2:57 PM EST 09/11/2017 3:03 PM EST Narrative Resulting Agency Comment Spec In Lab Arturo Waterman MD HEMATOLOGY ORDERABLE S [facility] [place] [address] * (ABNORMAL) Hemogram (09/11/2017 2:57 PM EST) White Blood Cell 13.8(H) 4.0 - 9.5 x10(3)/[facility] Red Blood Cell 3.44(L) 4.00 - 5.21 x10(6)/[facility] Hemoglobin 10.3(L) 11.7 - 15.5 gm/dL [facility] Hematocrit 29.0(L) 35.7 - 45.8 % [facility] Mean Cell Volume 84.3 82.6 - 94.4 fL [facility] Mean Cell Hemoglobin 29.9 27.1 - 32.0 pg [facility] Mean Cell Hemoglobin Concentration 35.5(H) 31.7 - 35.0 gm/dL [facility] Platelet 218 145 - 357 x10(3)/mc L [facility] RDW Standard Deviation 38.5 37.0 - 46.0 fL [facility] RDW coefficient of variation 12.8 11.5 - 14.1 % [facility] Mean Platelet Volume 8.7 7.6 - 12.9 fL [facility] NRBC% auto 0.0 % [facility] NRBC Absolute 0.000 0.000 - 0.000 x10(3)/mc L [facility] [facility] Blood specimen (specimen) 09/11/2017 2:57 PM EST 09/11/2017 3:03 PM EST Narrative Resulting Agency Comment Spec In Lab Arturo Waterman MD HEMATOLOGY ORDERABLE S Performing Organization Address City/[facility]/ZIP Co de Phone Number [facility] [place] [address] * (ABNORMAL) Magnesium (09/11/2017 2:57 PM EST) Magnesium 0.52(L) 0.69 - 1.07 mmol/L [facility] Blood specimen (specimen) 09/11/2017 2:57 PM EST 09/11/2017 3:03 PM EST Narrative Resulting Agency Comment Spec In Lab Arturo Waterman MD CHEMISTRY ORDERABLES Performing Organization Address [facility]/ZIP Co de Phone Number [facility] [place] [address] * (ABNORMAL) Basic Metabolic Panel (non-fasting) (09/11/2017 2:57 PM EST) Glucose 130 65 - 199 mg/dL [facility] Comment:Diabetes: >=200 mg/d L plus symptoms Blood Urea Nitrogen 6(L) 8 - 18 mg/dL [facility] Creatinine 0.44(L) 0.70 - 1.20 mg/dL [facility] Sodium 138 135 - 145 mmol/L [facility] Potassium 4.1 3.5 - 5.0 mmol/L [facility] Comment: Please note: ??Patients with WBC >100,000 may have falsely elevated Potassium levels. ??For accurate Potassium quantification in these patients send serum separator tube (gold top) for subsequent determinations. ??Contact the Clinical Chemistry Laboratory if there are any questions. Chloride 103 98 - 107 mmol/L [facility] Carbon Dioxide 21(L) 22 - 31 mmol/L [facility] Anion Gap 14 5 - 15 mmol/L [facility] Calcium 8.1(L) 8.5 - 10.5 mg/dL [facility] Est Glomerular Filtration Rate >60 >=60 [facility] Comment: The reported eGFR should be multiplied by 1.2 for patients. The MDRD is not an appropriate measure of renal function for patients with body mass extremes or in patients with acute kidney failure. http://[employer]/DHnkdep http://[employer]/DHMCnkf Blood specimen (specimen) 09/11/2017 2:57 PM EST 09/11/2017 3:03 PM EST Narrative Resulting Agency Comment Spec In Lab Arturo Waterman MD CHEMISTRY ORDERABLES Performing Organization Address City/State/[facility] Co de Phone Number [facility] [place] [address] * Fibrinogen (09/11/2017 2:57 PM EST) Fibrinogen 361 180 - 510 mg/dL [facility] Comment: A fibrinogen level >100 mg/dL is adequate for hemostasis in most patients without underlying bleeding disorders. Blood specimen (specimen) 09/11/2017 2:57 PM EST 09/11/2017 3:03 PM EST Narrative Resulting Agency Comment Spec In Lab Arturo Waterman MD HEMATOLOGY ORDERABLE S Performing Organization Address [facility] Co de Phone Number [facility] [place] [address] * APTT (09/11/2017 2:57 PM EST) Partial Thromboplastin Time 30 25 - 35 sec [facility] Comment: The recommended therapeutic range for full dose, unfractionated heparin at [facility] is 80 ? 114 seconds. The use of the anti-Xa (heparin) level rather than the PTT is recommended for monitoring anticoagulation intensity in critically ill patients receiving unfractionated heparin by continuous IV infusion. Blood specimen (specimen) 09/11/2017 2:57 PM EST 09/11/2017 3:03 PM EST Narrative Resulting Agency Comment Spec In Lab Arturo Waterman MD HEMATOLOGY ORDERABLE S Performing Organization Address [facility] de Phone Number [facility] [place] [address] * (ABNORMAL) Prothrombin Time (09/11/2017 2:57 PM EST) Prothrombin Time 14.4(H) 11.8 - 14.0 sec [facility] International Normalization Ratio 1.2(H) 0.9 - 1.1 [facility] Comment: An INR <2.0 indicates adequate [...] MD HEMATOLOGY ORDERABLE S Performing Organization Address [facility] Co de Phone Number [facility] [place] [address] * XR Abdomen 1 view (Generic) (09/11/2017 [...] PM EST 09/11/2017 1:53 PM EST Narrative [facility] - 09/11/2017 1:53 PM EST Specimen requisition ordered. ??Separate Pathology report to follow Chely Sin MD PATHOLOGY/CYTOLOGY O RDERABLES [facility] [place] [address] * Specimen to Pathology (09/11/2017 1:30 PM EST) AP Specimen 09/11/2017 1:30 PM EST 09/11/2017 1:30 PM EST Narrative [facility] - 09/11/2017 1:30 PM EST Specimen requisition ordered. ??Separate Pathology report to follow Arturo Waterman MD PATHOLOGY/CYTOLOGY O RDERABLES Performing Organization Address [facility] Co de Phone Number [facility] [place] [address] * Prepare RBC (09/11/2017 12:05 PM EST) Dispensed? Yes [facility] Blood specimen (specimen) 09/11/2017 12:05 PM EST 09/11/2017 12:03 PM EST Arturo Waterman MD BLOOD BANK PRODUCT O RDERABLES Performing Organization Address [facility] de Phone Number [facility] [place] [address] * Surgical Pathology Report (09/11/2017 12:01 PM EST) Final Diagnosis [id number] ? Location: ; [facility]; A The signing pathologist has (i) [...] Jayson Velez Verified: ??09/17/2017 ?Pathologist Performed at: ??-[facility] Dept. of Pathology, [place], [place] CLINICAL INFORMATION Specimen Submitted: A - [...] ?. (R15) ??doron 09/17/2017 9:19 AM EST [facility] TISSUE SPECIMEN FROM [facility] / Unknown 09/11/2017 12:01 PM EST 09/11/2017 12:01 PM EST Uterine Corpus 09/11/2017 12 :01 PM EST 09/11/2017 12:01 PM EST Jhonathan Robertson MD PATHOLOGY/CYTOLOGY O RDERABLES [facility] [place] [address] * POCT Glucose (09/11/2017 8:58 AM EST) Pathologist [facility] [place] Glucose, POC 91 65 - 199 mg/dL [facility] Comment: Supplemental ranges: <140 mg/dL before meals <180 mg/dL all other times of the day Blood specimen (specimen) 09/11/2017 8:58 AM EST 09/11/2017 8:58 AM EST Arturo Waterman MD POINT OF CARE TEST O RDERABLES Performing Organization Address [facility]/ZIP Co de Phone Number [facility] [place] [address] * Ab Comment (09/11/2017 5:15 AM EST) Pathologist [facility] [place] Ab Information INTERPRETATION: A red cell alloantibody, [...] MD, PhD Transfusion Medicine Service 09/22/17 12:02 [facility] Comment: KANIKA LIM, Pathologist Verified:09/22/17 Blood specimen (specimen) Venous Draw / Unknown 09/11/2017 5:15 AM EST 09/11/2017 5:29 AM EST Narrative Resulting Agency Comment Spec In Lab Yoly Cueva MD BLOOD BANK LAB ORDER KURT Performing Organization Address City/[facility] Co de Phone Number [facility] [place] [address] * Antibody identification (09/11/2017 5:15 AM EST) Ab Identified Anti-Jka [facility] Blood specimen (specimen) Venous Draw / Unknown 09/11/2017 5:15 AM EST 09/11/2017 5:29 AM EST Narrative Resulting Agency Comment Spec In Lab Yoly Cueva MD BLOOD BANK LAB ORDER KURT Performing Organization Address City/[facility]/ZIP Co de Phone Number [facility] [place] [address] * ABORH Recheck Status (09/11/2017 5:15 AM EST) ABORH Type Recheck Completed [facility] Blood specimen (specimen) Venous Draw / Unknown 09/11/2017 5:15 AM EST 09/11/2017 5:29 AM EST Narrative Resulting Agency Comment Spec In Lab Yoly Cueva MD BLOOD BANK LAB ORDER KURT Performing Organization Address City/[facility]/ZIP Co de Phone Number [facility] [place] [address] * Antibody screen manual (09/11/2017 5:15 AM EST) [facility] AB Screen Interp Positive [facility] Blood specimen (specimen) Venous Draw / Unknown 09/11/2017 5:15 AM EST 09/11/2017 5:29 AM EST Narrative Resulting Agency Comment Spec In Lab Arturo Waterman MD BLOOD BANK LAB ORDER KURT [facility] [place] [address] * ABORh Type Manual (09/11/2017 5:15 AM EST) [facility] Expires at [id number] on: 09/14/2017 [facility] ABORH Type B Pos [facility] Blood specimen (specimen) Venous Draw / Unknown 09/11/2017 5:15 AM EST 09/11/2017 5:29 AM EST Narrative Resulting Agency Comment Spec In Lab Arturo Waterman MD BLOOD BANK LAB ORDER KURT [facility] [place] [address] * Differential, Automated (09/11/2017 5:15 AM EST) [facility] Neutrophil % 59.9 % [facility] Neutrophil Absolute 4.60 1.70 - 6.10 x10(3)/[facility] Lymph % 29.6 % [facility] Lymphocytes Abs 2.3 0.9 - 3.2 x10(3)/[facility] Monocyte % 8.8 % [facility] Monocyte Abs 0.7 0.3 - 0.9 x10(3)/[facility] Eos % 0.9 % [facility] Eosinophils Abs 0.1 0.0 - 0.4 x10(3)/[facility] Basophil % 0.3 % [facility] Baso Absolute 0.0 0.0 - 0.1 x10(3)/[facility] Immature Gran % 0.50 % [facility] Comment: Immature granulocytes(IG's)percentage and absolute count will include metamyelocytes, myelocytes, and promyelocytes. Blood smears from CBCs yielding IG's will be scanned manually for concordance. If this scan disagrees with the automated IG or if promyelocytes are noted, a manual differential will be performed. Immature Gran Absolute 0.04 0.00 - 0.04 x10(3)/[facility] Blood specimen (specimen) 09/11/2017 5:15 AM EST 09/11/2017 5:32 AM EST Narrative Resulting Agency Comment Spec In Lab Arturo Waterman MD HEMATOLOGY ORDERABLE S Performing Organization Address City/State/[facility] Co de Phone Number [facility] [place] [address] * (ABNORMAL) Hemogram (09/11/2017 5:15 AM EST) White Blood Cell 7.7 4.0 - 9.5 x10(3)/[facility] Red Blood Cell 3.88(L) 4.00 - 5.21 x10(6)/[facility] Hemoglobin 11.2(L) 11.7 - 15.5 gm/dL [facility] Hematocrit 32.4(L) 35.7 - 45.8 % [facility] Mean Cell Volume 83.5 82.6 - 94.4 fL [facility] Mean Cell Hemoglobin 28.9 27.1 - 32.0 pg [facility] Mean Cell Hemoglobin Concentration 34.6 31.7 - 35.0 gm/dL [facility] Platelet 195 145 - 357 x10(3)/ L [facility] RDW Standard Deviation 38.8 37.0 - 46.0 fL [facility] RDW coefficient of variation 12.9 11.5 - 14.1 % [facility] Mean Platelet Volume 8.2 7.6 - 12.9 fL [facility] NRBC% auto 0.0 % [facility] NRBC Absolute 0.000 0.000 - 0.000 x10(3)/mc L [facility] Blood specimen (specimen) 09/11/2017 5:15 AM EST 09/11/2017 5:32 AM EST Narrative Resulting Agency Comment Spec In Lab Arturo Waterman MD HEMATOLOGY ORDERABLE S Performing Organization Address [facility] Co de Phone Number [facility] [place] [address] * SCAN DOC: LAB (09/11/2017 12:00 AM EST) Narrative 09/11/2017 12:00 AM EST Ordered by an unspecified provider. Scanning Provider MEDIA MGR SCAN EXT O RDR/RSLT * POCT Glucose (09/10/2017 7:15 PM EST) Glucose, POC 99 65 - 199 mg/dL [facility] Comment: Supplemental ranges: <140 mg/dL before meals <180 mg/dL all other times of the day Blood specimen (specimen) 09/10/2017 7:15 PM EST 09/10/2017 7:15 PM EST Arturo Waterman MD POINT OF CARE TEST O RDERABLES Performing Organization Address [facility]/ZIP Co de Phone Number [facility] [place] [address] * POCT Glucose (09/10/2017 3:01 PM EST) Glucose, POC 138 65 - 199 mg/dL [facility] Comment: Supplemental ranges: <140 mg/dL before meals <180 mg/dL all other times of the day Blood specimen (specimen) 09/10/2017 3:01 PM EST 09/10/2017 3:01 PM EST Arturo Waterman MD POINT OF CARE TEST O JORGE ALBERTO Performing Organization Address [facility]/ZIP Co de Phone Number [facility] [place] [address] * POCT Glucose (09/10/2017 12:58 PM EST) Glucose, POC 83 65 - 199 mg/dL [facility] Comment: Supplemental ranges: <140 mg/dL before meals <180 mg/dL all other times of the day Blood specimen (specimen) 09/10/2017 12:58 PM EST 09/10/2017 12:58 PM EST Arturo Waterman MD POINT OF CARE TEST O JORGE ALBERTO Performing Organization Address [facility] de Phone Number [facility] [place] [address] * SCAN DOC: EXTRACTIONS TECHNOLOGIST (09/10/2017 12:00 AM EST) Anatomical Region Laterality Modality Other Narrative 09/10/2017 12:00 AM EST Ordered by an unspecified provider. Scanning Provider MEDIA MGR SCAN EXT O RDR/RSLT * POCT Glucose (09/09/2017 8:28 PM EST) Glucose, POC 118 65 - 199 mg/dL [facility] Comment: Supplemental ranges: <140 mg/dL before meals <180 mg/dL all other times of the day Blood specimen (specimen) 09/09/2017 8:28 PM EST 09/09/2017 8:28 PM EST Arturo Waterman MD POINT OF CARE TEST O RDERAFRANNIE Performing Organization Address [facility] Co de Phone Number [facility] [place] [address] * POCT Glucose (09/09/2017 3:32 PM EST) Glucose, POC 121 65 - 199 mg/dL [facility] Comment: Supplemental ranges: <140 mg/dL before meals <180 mg/dL all other times of the day Blood specimen (specimen) 09/09/2017 3:32 PM EST 09/09/2017 3:32 PM EST Arturo Waterman MD POINT OF CARE TEST O RDERAFRANNIE Performing Organization Address City/[facility]/ZIP Co de Phone Number [facility] [place] [address] * POCT Glucose (09/09/2017 1:46 PM EST) Glucose, POC 75 65 - 199 mg/dL [facility] Comment: Supplemental ranges: <140 mg/dL before meals <180 mg/dL all other times of the day Blood specimen (specimen) 09/09/2017 1:46 PM EST 09/09/2017 1:46 PM EST Arturo Waterman MD POINT OF CARE TEST O BENJYERAFRANNIE Performing Organization Address [facility] Co de Phone Number [facility] [place] [address] * POCT Glucose (09/09/2017 12:28 AM EST) Glucose, POC 169 65 - 199 mg/dL [facility] Comment: Supplemental ranges: <140 mg/dL before meals <180 mg/dL all other times of the day Blood specimen (specimen) 09/09/2017 12:28 AM EST 09/09/2017 12:28 AM EST Arturo Waterman MD POINT OF CARE TEST O RDERAFRANNIE Performing Organization Address City/[facility] Co de Phone Number [facility] [place] [address] * POCT Glucose (09/08/2017 2:38 PM EST) Glucose, POC 160 65 - 199 mg/dL [facility] Comment: Supplemental ranges: <140 mg/dL before meals <180 mg/dL all other times of the day Blood specimen (specimen) 09/08/2017 2:38 PM EST 09/08/2017 2:38 PM EST Arturo Waterman MD POINT OF CARE TEST O RDERAFRANNIE Performing Organization Address City/[facility]/ZIP Co de Phone Number [facility] [place] [address] * POCT Glucose (09/08/2017 11:46 AM EST) Glucose, POC 89 65 - 199 mg/dL [facility] Comment: Supplemental ranges: <140 mg/dL before meals <180 mg/dL all other times of the day Blood specimen (specimen) 09/08/2017 11:46 AM EST 09/08/2017 11:46 AM EST Arturo Waterman MD POINT OF CARE TEST O BENJYERAFRANNIE Performing Organization Address [facility]/ZIP Co de Phone Number [facility] [place] [address] * POCT Glucose (09/07/2017 10:41 PM EST) Glucose, POC 140 65 - 199 mg/dL [facility] Comment: Supplemental ranges: <140 mg/dL before meals <180 mg/dL all other times of the day Blood specimen (specimen) 09/07/2017 10:41 PM EST 09/07/2017 10:41 PM EST Arturo Waterman MD POINT OF CARE TEST O RDERAFRANNIE [facility] [place] [address] * POCT Glucose (09/07/2017 2:56 PM EST) Glucose, POC 147 65 - 199 mg/dL [facility] Comment: Supplemental ranges: <140 mg/dL before meals <180 mg/dL all other times of the day Blood specimen (specimen) 09/07/2017 2:56 PM EST 09/07/2017 2:56 PM EST Arturo Waterman MD POINT OF CARE TEST O JORGE ALBERTO Performing Organization Address City/[facility]/ZIP Co de Phone Number [facility] [place] [address] * POCT Glucose (09/07/2017 12:55 PM EST) Glucose, POC 85 65 - 199 mg/dL [facility] Comment: Supplemental ranges: <140 mg/dL before meals <180 mg/dL all other times of the day Blood specimen (specimen) 09/07/2017 12:55 PM EST 09/07/2017 12:55 PM EST Arturo Waterman MD POINT OF CARE TEST O JORGE ALBERTO Performing Organization Address [facility]/ZIP Co de Phone Number [facility] [place] [address] * POCT Glucose (09/06/2017 7:37 PM EST) Glucose, POC 120 65 - 199 mg/dL [facility] Comment: Supplemental ranges: <140 mg/dL before meals <180 mg/dL all other times of the day Blood specimen (specimen) 09/06/2017 7:37 PM EST 09/06/2017 7:37 PM EST Arturo Waterman MD POINT OF CARE TEST O JORGE ALBERTO Performing Organization Address City/[facility]/ZIP Co de Phone Number [facility] [place] [address] * POCT Glucose (09/06/2017 2:12 PM EST) Glucose, POC 134 65 - 199 mg/dL [facility] Comment: Supplemental ranges: <140 mg/dL before meals <180 mg/dL all other times of the day Blood specimen (specimen) 09/06/2017 2:12 PM EST 09/06/2017 2:12 PM EST Arturo Waterman MD POINT OF CARE TEST O JORGE ALBERTO Performing Organization Address [facility] Co de Phone Number [facility] [place] [address] * POCT Glucose (09/06/2017 12:09 PM EST) Glucose, POC 85 65 - 199 mg/dL [facility] Comment: Supplemental ranges: <140 mg/dL before meals <180 mg/dL all other times of the day Blood specimen (specimen) 09/06/2017 12:09 PM EST 09/06/2017 12:09 PM EST Arturo Waterman MD POINT OF CARE TEST O JORGE ALBERTO Performing Organization Address [facility] Co de Phone Number [facility] [place] [address] * POCT Glucose (09/05/2017 8:40 PM EST) Glucose, POC 123 65 - 199 mg/dL [facility] Comment: Supplemental ranges: <140 mg/dL before meals <180 mg/dL all other times of the day Blood specimen (specimen) 09/05/2017 8:40 PM EST 09/05/2017 8:40 PM EST Arturo Waterman MD POINT OF CARE TEST O JORGE ALBERTO Performing Organization Address [facility] Co de Phone Number [facility] [place] [address] * POCT Glucose (09/05/2017 3:39 PM EST) Glucose, POC 163 65 - 199 mg/dL [facility] Comment: Supplemental ranges: <140 mg/dL before meals <180 mg/dL all other times of the day Blood specimen (specimen) 09/05/2017 3:39 PM EST 09/05/2017 3:39 PM EST Arturo Waterman MD POINT OF CARE TEST O RDERAFRANNIE Performing Organization Address [facility]/ZIP Co de Phone Number [facility] [place] [address] * POCT Glucose (09/05/2017 1:45 PM EST) Glucose, POC 91 65 - 199 mg/dL [facility] Comment: Supplemental ranges: <140 mg/dL before meals <180 mg/dL all other times of the day Blood specimen (specimen) 09/05/2017 1:45 PM EST 09/05/2017 1:45 PM EST Arturo Waterman MD POINT OF CARE TEST O BENJYERAFRANNIE Performing Organization Address [facility] Co de Phone Number [facility] [place] [address] * POCT Glucose (09/04/2017 11:36 PM EST) Glucose, POC 167 65 - 199 mg/dL [facility] Comment: Supplemental ranges: <140 mg/dL before meals <180 mg/dL all other times of the day Blood specimen (specimen) 09/04/2017 11:36 PM EST 09/04/2017 11:36 PM EST Arturo Waterman MD POINT OF CARE TEST O JORGE ALBERTO Performing Organization Address [facility] Co de Phone Number [facility] [place] [address] * POCT Glucose (09/04/2017 4:14 PM EST) Glucose, POC 150 65 - 199 mg/dL [facility] Comment: Supplemental ranges: <140 mg/dL before meals <180 mg/dL all other times of the day Blood specimen (specimen) 09/04/2017 4:14 PM EST 09/04/2017 4:14 PM EST Arturo Waterman MD POINT OF CARE TEST O RDERABLES Performing Organization Address City/[facility]/ZIP Co de Phone Number [facility] [place] [address] * POCT Glucose (09/04/2017 1:29 PM EST) Glucose, POC 99 65 - 199 mg/dL [facility] Comment: Supplemental ranges: <140 mg/dL before meals <180 mg/dL all other times of the day Blood specimen (specimen) 09/04/2017 1:29 PM EST 09/04/2017 1:29 PM EST Arturo Waterman MD POINT OF CARE TEST O RDERAFRANNIE Performing Organization Address [facility] Co de Phone Number [facility] [place] [address] * POCT Glucose (09/03/2017 4:56 PM EST) Glucose, POC 138 65 - 199 mg/dL [facility] Comment: Supplemental ranges: <140 mg/dL before meals <180 mg/dL all other times of the day Blood specimen (specimen) 09/03/2017 4:56 PM EST 09/03/2017 4:56 PM EST Arturo Waterman MD POINT OF CARE TEST O RDERAFRANNIE Performing Organization Address [facility] Co de Phone Number [facility] [place] [address] * POCT Glucose (09/03/2017 2:11 PM EST) Glucose, POC 92 65 - 199 mg/dL [facility] Comment: Supplemental ranges: <140 mg/dL before meals <180 mg/dL all other times of the day Blood specimen (specimen) 09/03/2017 2:11 PM EST 09/03/2017 2:11 PM EST Arturo Waterman MD POINT OF CARE TEST O RDERAFRANNIE [facility] [place] [address] * POCT Glucose (09/02/2017 9:34 PM EST) Glucose, POC 118 65 - 199 mg/dL [facility] Comment: Supplemental ranges: <140 mg/dL before meals <180 mg/dL all other times of the day Blood specimen (specimen) 09/02/2017 9:34 PM EST 09/02/2017 9:34 PM EST Arturo Waterman MD POINT OF CARE TEST O RDERABLES Performing Organization Address City/[facility]/ZIP Co de Phone Number [facility] [place] [address] * POCT Glucose (09/02/2017 3:23 PM EST) Glucose, POC 163 65 - 199 mg/dL [facility] Comment: Supplemental ranges: <140 mg/dL before meals <180 mg/dL all other times of the day Blood specimen (specimen) 09/02/2017 3:23 PM EST 09/02/2017 3:23 PM EST Arturo Waterman MD POINT OF CARE TEST O RDERABLES Performing Organization Address [facility]/ZIP Co de Phone Number [facility] [place] [address] * POCT Glucose (09/02/2017 12:33 PM EST) Glucose, POC 94 65 - 199 mg/dL [facility] Comment: Supplemental ranges: <140 mg/dL before meals <180 mg/dL all other times of the day Blood specimen (specimen) 09/02/2017 12:33 PM EST 09/02/2017 12:33 PM EST Arturo Waterman MD POINT OF CARE TEST O RDERABLES [facility] [place] [address] * Group B Streptococcus Screen (09/02/2017 1:57 AM EST) GBS Screen Neg [facility] Pooled specimen from vaginal introitus and rectal swab (specimen) 09/02/2017 1:57 AM EST 09/02/2017 8:15 AM EST Comment:Penicillin Allergy?- >No Narrative Resulting Agency Comment Spec In Lab Arturo Waterman MD MICROBIOLOGY - GENER AL ORDERABLES Performing Organization Address City/[facility]/ZIP Co de Phone Number [facility] [place] [address] * Group B Strep Culture Screen (09/02/2017 1:57 AM EST) Group B Streptococcus Culture No Group B Streptococci isolated [facility] Pooled specimen from vaginal introitus and rectal swab (specimen) 09/02/2017 1:57 AM EST 09/02/2017 8:15 AM EST Comment:PENICILLIN ALLERGY?- >NO Narrative Resulting Agency Comment Spec In Lab Arturo Waterman MD MICROBIOLOGY - GENER AL ORDERABLES Performing Organization Address [facility]/ZIP Co de Phone Number [facility] [place] [address] * POCT Glucose (09/01/2017 7:29 PM EST) Glucose, POC 136 65 - 199 mg/dL [facility] Comment: Supplemental ranges: <140 mg/dL before meals <180 mg/dL all other times of the day Blood specimen (specimen) 09/01/2017 7:29 PM EST 09/01/2017 7:29 PM EST Arturo Waterman MD POINT OF CARE TEST O RDERABLES Performing Organization Address [facility] Co de Phone Number [facility] [place] [address] * US OB Follow Up Evaluation (09/01/2017 [...] 11:19 am) PATIENT INFO: ID #: ? [id number] ?: ??[birth year] (27 yrs) Name: ? PAM Lopez ?Visit Date: 09/01/2017 10:00 am ? JAYA PERFORMED BY: Performed By: ? Ruth Ann Dixon RDMS Attending: ?Derick TAY, Li Umanzor Referred By: ?ARTURO WATERMAN Location: ? [facility] SERVICE(S) PROVIDED: ??UOBFOL - Efw - Growth - [place] - [id number] ? [id number] ??UOBTV - Viability - Cervical Length -Transvaginal - ?? [id number] ??[id number] INDICATIONS: ??32 weeks gestation of ?Z3A.32 ??follow [...] 09/01/2017 11:19 am) PATIENT INFO: ID #: [id number] : [birth year] (27 yrs) Name: PAM Lopez Visit Date: 09/01/2017 10:00 am ALKE PERFORMED BY: Performed By: Ruth Ann Dixon RDMS Attending: Li Sepulveda MD Referred By: ARTURO WATERMAN Location: [facility] SERVICE(S) PROVIDED: UOBFOL - Efw - Growth - [place] - [id number] UOBTV - Viability - Cervical Length -Transvaginal - [id number] INDICATIONS: 32 weeks gestation of Z3A.32 follow [...] Report 09/01/2017 11:19 am Arturo Waterman MD [facility] OB ORDERABLES * POCT Glucose (09/01/2017 8:45 AM EST) [facility] Signature Glucose, POC 92 65 - 199 mg/dL [facility] Comment: Supplemental ranges: <140 mg/dL before meals <180 mg/dL all other times of the day Blood specimen (specimen) 09/01/2017 8:45 AM EST 09/01/2017 8:45 AM EST Arturo Waterman MD POINT OF CARE TEST O RDERABLES [facility] [place] [address] * POCT Glucose (08/31/2017 3:32 PM EST) Glucose, POC 110 65 - 199 mg/dL [facility] Comment: Supplemental ranges: <140 mg/dL before meals <180 mg/dL all other times of the day Blood specimen (specimen) 08/31/2017 3:32 PM EST 08/31/2017 3:32 PM EST Arturo Waterman MD POINT OF CARE TEST O JORGE ALBERTO [facility] [place] [address] * POCT Glucose (08/31/2017 8:49 AM EST) Glucose, POC 94 65 - 199 mg/dL [facility] Comment: Supplemental ranges: <140 mg/dL before meals <180 mg/dL all other times of the day Blood specimen (specimen) 08/31/2017 8:49 AM EST 08/31/2017 8:49 AM EST Arturo Waterman MD POINT OF CARE TEST O JORGE ALBERTO Performing Organization Address City/[facility]/ZIP Co de Phone Number [facility] [place] [address] * POCT Glucose (08/30/2017 8:54 PM EST) Glucose, POC 130 65 - 199 mg/dL [facility] Comment: Supplemental ranges: <140 mg/dL before meals <180 mg/dL all other times of the day Blood specimen (specimen) 08/30/2017 8:54 PM EST 08/30/2017 8:54 PM EST Arturo Waterman MD POINT OF CARE TEST O JORGE ALBERTO [facility] [place] [address] * POCT Glucose (08/30/2017 3:16 PM EST) Glucose, POC 121 65 - 199 mg/dL [facility] Comment: Supplemental ranges: <140 mg/dL before meals <180 mg/dL all other times of the day Blood specimen (specimen) 08/30/2017 3:16 PM EST 08/30/2017 3:16 PM EST Arturo Waterman MD POINT OF CARE TEST O RDERAFRANNIE Performing Organization Address City/[facility]/ZIP Co de Phone Number [facility] [place] [address] * POCT Glucose (08/30/2017 12:38 PM EST) Glucose, POC 92 65 - 199 mg/dL [facility] Comment: Supplemental ranges: <140 mg/dL before meals <180 mg/dL all other times of the day Blood specimen (specimen) 08/30/2017 12:38 PM EST 08/30/2017 12:38 PM EST Arturo Waterman MD POINT OF CARE TEST O JORGE ALBERTO Performing Organization Address [facility] Co de Phone Number [facility] [place] [address] * POCT Glucose (08/29/2017 8:47 PM EST) Glucose, POC 173 65 - 199 mg/dL [facility] Comment: Supplemental ranges: <140 mg/dL before meals <180 mg/dL all other times of the day Blood specimen (specimen) 08/29/2017 8:47 PM EST 08/29/2017 8:47 PM EST Arturo Waterman MD POINT OF CARE TEST O RDERAFRANNIE Performing Organization Address City/[facility] Co de Phone Number [facility] [place] [address] * POCT Glucose (08/29/2017 3:31 PM EST) Glucose, POC 119 65 - 199 mg/dL [facility] Comment: Supplemental ranges: <140 mg/dL before meals <180 mg/dL all other times of the day Blood specimen (specimen) 08/29/2017 3:31 PM EST 08/29/2017 3:31 PM EST Arturo Waterman MD POINT OF CARE TEST O RDERABLES [facility] [place] [address] * POCT Glucose (08/29/2017 1:16 PM EST) Glucose, POC 98 65 - 199 mg/dL [facility] Comment: Supplemental ranges: <140 mg/dL before meals <180 mg/dL all other times of the day Blood specimen (specimen) 08/29/2017 1:16 PM EST 08/29/2017 1:16 PM EST Arturo Waterman MD POINT OF CARE TEST O BENJYERAFRANNIE Performing Organization Address [facility]/ZIP Co de Phone Number [facility] [place] [address] * POCT Glucose (08/29/2017 9:25 AM EST) Glucose, POC 108 65 - 199 mg/dL [facility] Comment: Supplemental ranges: <140 mg/dL before meals <180 mg/dL all other times of the day Blood specimen (specimen) 08/29/2017 9:25 AM EST 08/29/2017 9:25 AM EST Arturo Waterman MD POINT OF CARE TEST O RDERAFRANNIE Performing Organization Address City/[facility]/ZIP Co de Phone Number [facility] [place] [address] * POCT Glucose (08/28/2017 8:59 PM EST) Glucose, POC 122 65 - 199 mg/dL [facility] Comment: Supplemental ranges: <140 mg/dL before meals <180 mg/dL all other times of the day Blood specimen (specimen) 08/28/2017 8:59 PM EST 08/28/2017 8:59 PM EST Arturo Waterman MD POINT OF CARE TEST O JORGE ALBERTO Performing Organization Address City/[facility]/ZIP Co de Phone Number [facility] [place] [address] * POCT Glucose (08/28/2017 3:45 PM EST) Glucose, POC 138 65 - 199 mg/dL [facility] Comment: Supplemental ranges: <140 mg/dL before meals <180 mg/dL all other times of the day Blood specimen (specimen) 08/28/2017 3:45 PM EST 08/28/2017 3:45 PM EST Arturo Waterman MD POINT OF CARE TEST O JORGE ALBERTO Performing Organization Address [facility]/ZIP Co de Phone Number [facility] [place] [address] * POCT Glucose (08/28/2017 12:23 PM EST) Glucose, POC 94 65 - 199 mg/dL [facility] Comment: Supplemental ranges: <140 mg/dL before meals <180 mg/dL all other times of the day Blood specimen (specimen) 08/28/2017 12:23 PM EST 08/28/2017 12:23 PM EST Arturo Waterman MD POINT OF CARE TEST O JORGE ALBERTO Performing Organization Address City/[facility]/ZIP Co de Phone Number [facility] [place] [address] * POCT Glucose (08/27/2017 9:40 PM EST) Glucose, POC 134 65 - 199 mg/dL [facility] Comment: Supplemental ranges: <140 mg/dL before meals <180 mg/dL all other times of the day Blood specimen (specimen) 08/27/2017 9:40 PM EST 08/27/2017 9:40 PM EST Arturo Waterman MD POINT OF CARE TEST O JORGE ALBERTO Performing Organization Address [facility] Co de Phone Number [facility] [place] [address] * POCT Glucose (08/27/2017 3:08 PM EST) Glucose, POC 129 65 - 199 mg/dL [facility] Comment: Supplemental ranges: <140 mg/dL before meals <180 mg/dL all other times of the day Blood specimen (specimen) 08/27/2017 3:08 PM EST 08/27/2017 3:08 PM EST Arturo Waterman MD POINT OF CARE TEST O JORGE ALBERTO Performing Organization Address [facility] Co de Phone Number [facility] [place] [address] * POCT Glucose (08/27/2017 11:31 AM EST) Glucose, POC 91 65 - 199 mg/dL [facility] Comment: Supplemental ranges: <140 mg/dL before meals <180 mg/dL all other times of the day Blood specimen (specimen) 08/27/2017 11:31 AM EST 08/27/2017 11:31 AM EST Arturo Waterman MD POINT OF CARE TEST O JORGE ALBERTO Performing Organization Address [facility] Co de Phone Number [facility] [place] [address] * POCT Glucose (08/26/2017 8:00 PM EST) Glucose, POC 142 65 - 199 mg/dL [facility] Comment: Supplemental ranges: <140 mg/dL before meals <180 mg/dL all other times of the day Blood specimen (specimen) 08/26/2017 8:00 PM EST 08/26/2017 8:00 PM EST Arturo Waterman MD POINT OF CARE TEST O RDERABLES Performing Organization Address [facility] Co de Phone Number [facility] [place] [address] * POCT Glucose (08/26/2017 3:15 PM EST) Glucose, POC 105 65 - 199 mg/dL [facility] Comment: Supplemental ranges: <140 mg/dL before meals <180 mg/dL all other times of the day Blood specimen (specimen) 08/26/2017 3:15 PM EST 08/26/2017 3:15 PM EST Arturo Waterman MD POINT OF CARE TEST O JORGE ALBERTO Performing Organization Address [facility] Phone Number [facility] [place] [address] * POCT Glucose (08/26/2017 12:29 PM EST) Glucose, POC 88 65 - 199 mg/dL [facility] Comment: Supplemental ranges: <140 mg/dL before meals <180 mg/dL all other times of the day Blood specimen (specimen) 08/26/2017 12:29 PM EST 08/26/2017 12:29 PM EST Arturo Waterman MD POINT OF CARE TEST O RDERAFRANNIE Performing Organization Address [facility] de Phone Number [facility] [place] [address] * POCT urine dipstick (08/26/2017) POC Sp [place] 1.005 1.002 - 1.030 POC pH, UA [...] POINT OF CARE TEST O JORGE ALBERTO * POCT Glucose (08/25/2017 8:45 PM EST) Glucose, POC 147 65 - 199 mg/dL [facility] Comment: Supplemental ranges: <140 mg/dL before meals <180 mg/dL all other times of the day Blood specimen (specimen) 08/25/2017 8:45 PM EST 08/25/2017 8:45 PM EST Arturo Waterman MD POINT OF CARE TEST O JORGE ALBERTO Performing Organization Address [facility]/ZIP Co de Phone Number [facility] [place] [address] * POCT Glucose (08/25/2017 2:36 PM EST) Glucose, POC 133 65 - 199 mg/dL [facility] Comment: Supplemental ranges: <140 mg/dL before meals <180 mg/dL all other times of the day Blood specimen (specimen) 08/25/2017 2:36 PM EST 08/25/2017 2:36 PM EST Arturo Waterman MD POINT OF CARE TEST O JORGE ALBERTO Performing Organization Address City/[facility]/ZIP Co de Phone Number [facility] [place] [address] * POCT Glucose (08/25/2017 12:38 PM EST) Glucose, POC 91 65 - 199 mg/dL [facility] Comment: Supplemental ranges: <140 mg/dL before meals <180 mg/dL all other times of the day Blood specimen (specimen) 08/25/2017 12:38 PM EST 08/25/2017 12:38 PM EST Arturo Waterman MD POINT OF CARE TEST O RDERABLES Performing Organization Address [facility] Co de Phone Number [facility] [place] [address] * POCT Glucose (08/24/2017 8:25 PM EST) Glucose, POC 93 65 - 199 mg/dL [facility] Comment: Supplemental ranges: <140 mg/dL before meals <180 mg/dL all other times of the day Blood specimen (specimen) 08/24/2017 8:25 PM EST 08/24/2017 8:25 PM EST Arturo Waterman MD POINT OF CARE TEST O RDERABLES Performing Organization Address [facility] Co de Phone Number [facility] [place] [address] * POCT Glucose (08/24/2017 3:13 PM EST) Glucose, POC 144 65 - 199 mg/dL [facility] Comment: Supplemental ranges: <140 mg/dL before meals <180 mg/dL all other times of the day Blood specimen (specimen) 08/24/2017 3:13 PM EST 08/24/2017 3:13 PM EST Arturo Waterman MD POINT OF CARE TEST O RDERABLES Performing Organization Address [facility] Co de Phone Number [facility] [place] [address] * POCT Glucose (08/24/2017 9:58 AM EST) Glucose, POC 109 65 - 199 mg/dL [facility] Comment: Supplemental ranges: <140 mg/dL before meals <180 mg/dL all other times of the day Blood specimen (specimen) 08/24/2017 9:58 AM EST 08/24/2017 9:58 AM EST Arturo Waterman MD POINT OF CARE TEST O RDERABLES [facility] [place] [address] * POCT Glucose (08/23/2017 11:41 PM EST) Glucose, POC 102 65 - 199 mg/dL [facility] Comment: Supplemental ranges: <140 mg/dL before meals <180 mg/dL all other times of the day Blood specimen (specimen) 08/23/2017 11:41 PM EST 08/23/2017 11:41 PM EST Arturo Waterman MD POINT OF CARE TEST O RDERABLES Performing Organization Address [facility] Co de Phone Number [facility] [place] [address] * POCT Glucose (08/23/2017 3:33 PM EST) Glucose, POC 128 65 - 199 mg/dL [facility] Comment: Supplemental ranges: <140 mg/dL before meals <180 mg/dL all other times of the day Blood specimen (specimen) 08/23/2017 3:33 PM EST 08/23/2017 3:33 PM EST Arturo Waterman MD POINT OF CARE TEST O RDERABLES Performing Organization Address [facility] Co de Phone Number [facility] [place] [address] * POCT Glucose (08/23/2017 11:37 AM EST) Glucose, POC 124 65 - 199 mg/dL [facility] Comment: Supplemental ranges: <140 mg/dL before meals <180 mg/dL all other times of the day Blood specimen (specimen) 08/23/2017 11:37 AM EST 08/23/2017 11:37 AM EST Arturo Waterman MD POINT OF CARE TEST O RDERABLES Performing Organization Address City/[facility]/ZIP Co de Phone Number [facility] [place] [address] * POCT Glucose (08/23/2017 9:44 AM EST) Glucose, POC 107 65 - 199 mg/dL [facility] Comment: Supplemental ranges: <140 mg/dL before meals <180 mg/dL all other times of the day Blood specimen (specimen) 08/23/2017 9:44 AM EST 08/23/2017 9:44 AM EST Arturo Waterman MD POINT OF CARE TEST O RDERABLES [facility] [place] [address] * POCT Glucose (08/22/2017 8:18 PM EST) Glucose, POC 111 65 - 199 mg/dL [facility] Comment: Supplemental ranges: <140 mg/dL before meals <180 mg/dL all other times of the day Blood specimen (specimen) 08/22/2017 8:18 PM EST 08/22/2017 8:18 PM EST Arturo Waterman MD POINT OF CARE TEST O RDERABLES [facility] [place] [address] * POCT Glucose (08/22/2017 2:28 PM EST) Glucose, POC 158 65 - 199 mg/dL [facility] Comment: Supplemental ranges: <140 mg/dL before meals <180 mg/dL all other times of the day Blood specimen (specimen) 08/22/2017 2:28 PM EST 08/22/2017 2:28 PM EST Arturo Waterman MD POINT OF CARE TEST O RDERAFRANNIE [facility] [place] [address] * POCT Glucose (08/22/2017 12:39 PM EST) Glucose, POC 83 65 - 199 mg/dL [facility] Comment: Supplemental ranges: <140 mg/dL before meals <180 mg/dL all other times of the day Blood specimen (specimen) 08/22/2017 12:39 PM EST 08/22/2017 12:39 PM EST Arturo Waterman MD POINT OF CARE TEST O JORGE ALBERTO [facility] [place] [address] * POCT Glucose (08/21/2017 7:53 PM EST) Glucose, POC 105 65 - 199 mg/dL [facility] Comment: Supplemental ranges: <140 mg/dL before meals <180 mg/dL all other times of the day Blood specimen (specimen) 08/21/2017 7:53 PM EST 08/21/2017 7:53 PM EST Arturo Waterman MD POINT OF CARE TEST O JORGE ALBERTO Performing Organization Address City/[facility]/ZIP Co de Phone Number [facility] [place] [address] * POCT Glucose (08/21/2017 2:42 PM EST) Glucose, POC 130 65 - 199 mg/dL [facility] Comment: Supplemental ranges: <140 mg/dL before meals <180 mg/dL all other times of the day Blood specimen (specimen) 08/21/2017 2:42 PM EST 08/21/2017 2:42 PM EST Arturo Waterman MD POINT OF CARE TEST O JORGE ALBERTO [facility] [place] [address] * POCT Glucose (08/21/2017 9:07 AM EST) Glucose, POC 73 65 - 199 mg/dL [facility] Comment: Supplemental ranges: <140 mg/dL before meals <180 mg/dL all other times of the day Blood specimen (specimen) 08/21/2017 9:07 AM EST 08/21/2017 9:07 AM EST Arturo Waterman MD POINT OF CARE TEST O RDERAFRANNIE [facility] [place] [address] * POCT Glucose (08/20/2017 7:30 PM EST) Glucose, POC 162 65 - 199 mg/dL [facility] Comment: Supplemental ranges: <140 mg/dL before meals <180 mg/dL all other times of the day Blood specimen (specimen) 08/20/2017 7:30 PM EST 08/20/2017 7:30 PM EST Arturo Waterman MD POINT OF CARE TEST O JORGE ALBERTO Performing Organization Address City/[facility]/ZIP Co de Phone Number [facility] [place] [address] * POCT Glucose (08/20/2017 1:54 PM EST) Glucose, POC 187 65 - 199 mg/dL [facility] Comment: Supplemental ranges: <140 mg/dL before meals <180 mg/dL all other times of the day Blood specimen (specimen) 08/20/2017 1:54 PM EST 08/20/2017 1:54 PM EST Arturo Waterman MD POINT OF CARE TEST O RDERAFRANNIE Performing Organization Address City/[facility] Co de Phone Number [facility] [place] [address] * POCT Glucose (08/20/2017 9:04 AM EST) Glucose, POC 158 65 - 199 mg/dL [facility] Comment: Supplemental ranges: <140 mg/dL before meals <180 mg/dL all other times of the day Blood specimen (specimen) 08/20/2017 9:04 AM EST 08/20/2017 9:04 AM EST Arturo Waterman MD POINT OF CARE TEST O RDERABLES Performing Organization Address City/[facility]/ZIP Co de Phone Number [facility] [place] [address] * POCT Glucose (08/19/2017 8:24 PM EST) Glucose, POC 141 65 - 199 mg/dL [facility] Comment: Supplemental ranges: <140 mg/dL before meals <180 mg/dL all other times of the day Blood specimen (specimen) 08/19/2017 8:24 PM EST 08/19/2017 8:24 PM EST Arturo Waterman MD POINT OF CARE TEST O RDERAFRANNIE Performing Organization Address [facility]/ZIP Co de Phone Number [facility] [place] [address] * POCT Glucose (08/19/2017 4:01 PM EST) Glucose, POC 157 65 - 199 mg/dL [facility] Comment: Supplemental ranges: <140 mg/dL before meals <180 mg/dL all other times of the day Blood specimen (specimen) 08/19/2017 4:01 PM EST 08/19/2017 4:01 PM EST Arturo Waterman MD POINT OF CARE TEST O RDERABLES Performing Organization Address City/[facility]/ZIP Co de Phone Number [facility] [place] [address] * POCT Glucose (08/19/2017 9:55 AM EST) Glucose, POC 127 65 - 199 mg/dL [facility] Comment: Supplemental ranges: <140 mg/dL before meals <180 mg/dL all other times of the day Blood specimen (specimen) 08/19/2017 9:55 AM EST 08/19/2017 9:55 AM EST Arturo Waterman MD POINT OF CARE TEST O RDERAFRANNIE Performing Organization Address City/[facility] Co de Phone Number [facility] [place] [address] * POCT Glucose (08/18/2017 11:52 PM EST) Glucose, POC 179 65 - 199 mg/dL [facility] Comment: Supplemental ranges: <140 mg/dL before meals <180 mg/dL all other times of the day Blood specimen (specimen) 08/18/2017 11:52 PM EST 08/18/2017 11:52 PM EST Arturo Waterman MD POINT OF CARE TEST O BENJYERAFRANNIE Performing Organization Address [facility] Co de Phone Number [facility] [place] [address] * POCT Glucose (08/18/2017 7:38 PM EST) Glucose, POC 153 65 - 199 mg/dL [facility] Comment: Supplemental ranges: <140 mg/dL before meals <180 mg/dL all other times of the day Blood specimen (specimen) 08/18/2017 7:38 PM EST 08/18/2017 7:38 PM EST Arturo Waterman MD POINT OF CARE TEST O RDERAFRANNIE Performing Organization Address City/[facility] Co de Phone Number [facility] [place] [address] * POCT Glucose (08/18/2017 3:42 PM EST) Glucose, POC 93 65 - 199 mg/dL [facility] Comment: Supplemental ranges: <140 mg/dL before meals <180 mg/dL all other times of the day Blood specimen (specimen) 08/18/2017 3:42 PM EST 08/18/2017 3:42 PM EST Arturo Waterman MD POINT OF CARE TEST O JORGE ALBERTO Performing Organization Address [facility] Co de Phone Number [facility] [place] [address] * POCT Glucose (08/18/2017 8:43 AM EST) Glucose, POC 72 65 - 199 mg/dL [facility] Comment: Supplemental ranges: <140 mg/dL before meals <180 mg/dL all other times of the day Blood specimen (specimen) 08/18/2017 8:43 AM EST 08/18/2017 8:43 AM EST Arturo Waterman MD POINT OF CARE TEST Yee AZUL Performing Organization Address [facility] Co de Phone Number [facility] [place] [address] * POCT Glucose (08/17/2017 8:22 PM EST) Glucose, POC 104 65 - 199 mg/dL [facility] Comment: Supplemental ranges: <140 mg/dL before meals <180 mg/dL all other times of the day Blood specimen (specimen) 08/17/2017 8:22 PM EST 08/17/2017 8:22 PM EST Arturo Waterman MD POINT OF CARE TEST O JORGE ALBERTO Performing Organization Address City/[facility] Co de Phone Number [facility] [place] [address] * POCT Glucose (08/17/2017 1:37 PM EST) Glucose, POC 167 65 - 199 mg/dL [facility] Comment: Supplemental ranges: <140 mg/dL before meals <180 mg/dL all other times of the day Blood specimen (specimen) 08/17/2017 1:37 PM EST 08/17/2017 1:37 PM EST Arturo Waterman MD POINT OF CARE TEST O RDANG Performing Organization Address [facility] de Phone Number [facility] [place] [address] * POCT Glucose (08/17/2017 12:04 PM EST) Glucose, POC 81 65 - 199 mg/dL [facility] Comment: Supplemental ranges: <140 mg/dL before meals <180 mg/dL all other times of the day Blood specimen (specimen) 08/17/2017 12:04 PM EST 08/17/2017 12:04 PM EST Arturo Waterman MD POINT OF CARE TEST O JORGE ALBERTO Performing Organization Address [facility] Phone Number [facility] [place] [address] * POCT Glucose (08/16/2017 6:52 PM EST) Glucose, POC 128 65 - 199 mg/dL [facility] Comment: Supplemental ranges: <140 mg/dL before meals <180 mg/dL all other times of the day Blood specimen (specimen) 08/16/2017 6:52 PM EST 08/16/2017 6:52 PM EST Arturo Waterman MD POINT OF CARE TEST O RDERAFRANNIE Performing Organization Address [facility] de Phone Number [facility] [place] [address] * POCT Glucose (08/16/2017 12:08 PM EST) Glucose, POC 98 65 - 199 mg/dL [facility] Comment: Supplemental ranges: <140 mg/dL before meals <180 mg/dL all other times of the day Blood specimen (specimen) 08/16/2017 12:08 PM EST 08/16/2017 12:08 PM EST Arturo Waterman MD POINT OF CARE TEST O RDERABLES Performing Organization Address City/[facility]/ZIP Co de Phone Number [facility] [place] [address] * POCT Glucose (08/16/2017 10:15 AM EST) Glucose, POC 90 65 - 199 mg/dL [facility] Comment: Supplemental ranges: <140 mg/dL before meals <180 mg/dL all other times of the day Blood specimen (specimen) 08/16/2017 10:15 AM EST 08/16/2017 10:15 AM EST Arturo Waterman MD POINT OF CARE TEST O RDERAFRANNIE Performing Organization Address [facility] Co de Phone Number [facility] [place] [address] * POCT Glucose (08/15/2017 8:24 PM EST) Glucose, POC 121 65 - 199 mg/dL [facility] Comment: Supplemental ranges: <140 mg/dL before meals <180 mg/dL all other times of the day Blood specimen (specimen) 08/15/2017 8:24 PM EST 08/15/2017 8:24 PM EST Arturo Waterman MD POINT OF CARE TEST O RDERAFRANNIE Performing Organization Address [facility] Co de Phone Number [facility] [place] [address] * POCT Glucose (08/15/2017 3:44 PM EST) Glucose, POC 129 65 - 199 mg/dL [facility] Comment: Supplemental ranges: <140 mg/dL before meals <180 mg/dL all other times of the day Blood specimen (specimen) 08/15/2017 3:44 PM EST 08/15/2017 3:44 PM EST Arturo Waterman MD POINT OF CARE TEST O RDERABLES Performing Organization Address [facility] Co de Phone Number [facility] [place] [address] * POCT Glucose (08/15/2017 12:19 PM EST) Glucose, POC 91 65 - 199 mg/dL [facility] Comment: Supplemental ranges: <140 mg/dL before meals <180 mg/dL all other times of the day Blood specimen (specimen) 08/15/2017 12:19 PM EST 08/15/2017 12:19 PM EST Arturo Waterman MD POINT OF CARE TEST O RDERABLES Performing Organization Address [facility] Co de Phone Number [facility] [place] [address] * POCT Glucose (08/14/2017 8:37 PM EST) Glucose, POC 133 65 - 199 mg/dL [facility] Comment: Supplemental ranges: <140 mg/dL before meals <180 mg/dL all other times of the day Blood specimen (specimen) 08/14/2017 8:37 PM EST 08/14/2017 8:37 PM EST Arturo Waterman MD POINT OF CARE TEST O RDERABLES Performing Organization Address [facility] Co de Phone Number [facility] [place] [address] * POCT Glucose (08/14/2017 11:47 AM EST) Glucose, POC 76 65 - 199 mg/dL [facility] Comment: Supplemental ranges: <140 mg/dL before meals <180 mg/dL all other times of the day Blood specimen (specimen) 08/14/2017 11:47 AM EST 08/14/2017 11:47 AM EST Arturo Waterman MD POINT OF CARE TEST O RDERAFRANNIE Performing Organization Address City/[facility]/ZIP Co de Phone Number [facility] [place] [address] * POCT Glucose (08/13/2017 8:05 PM EST) Glucose, POC 121 65 - 199 mg/dL [facility] Comment: Supplemental ranges: <140 mg/dL before meals <180 mg/dL all other times of the day Blood specimen (specimen) 08/13/2017 8:05 PM EST 08/13/2017 8:05 PM EST Arturo Waterman MD POINT OF CARE TEST O RDERAFRANNIE [facility] [place] [address] * POCT Glucose (08/13/2017 2:37 PM EST) Glucose, POC 144 65 - 199 mg/dL [facility] Comment: Supplemental ranges: <140 mg/dL before meals <180 mg/dL all other times of the day Blood specimen (specimen) 08/13/2017 2:37 PM EST 08/13/2017 2:37 PM EST Arturo Waterman MD POINT OF CARE TEST O RDERAFRANNIE [facility] [place] [address] * POCT Glucose (08/13/2017 12:52 PM EST) Glucose, POC 76 65 - 199 mg/dL [facility] Comment: Supplemental ranges: <140 mg/dL before meals <180 mg/dL all other times of the day Blood specimen (specimen) 08/13/2017 12:52 PM EST 08/13/2017 12:52 PM EST Arturo Waterman MD POINT OF CARE TEST O RDERABLES [facility] [place] [address] * POCT Glucose (08/12/2017 8:33 PM EST) Glucose, POC 129 65 - 199 mg/dL [facility] Comment: Supplemental ranges: <140 mg/dL before meals <180 mg/dL all other times of the day Blood specimen (specimen) 08/12/2017 8:33 PM EST 08/12/2017 8:33 PM EST Arturo Waterman MD POINT OF CARE TEST O RDERAFRANNIE [facility] [place] [address] * POCT Glucose (08/12/2017 2:03 PM EST) Glucose, POC 119 65 - 199 mg/dL [facility] Comment: Supplemental ranges: <140 mg/dL before meals <180 mg/dL all other times of the day Blood specimen (specimen) 08/12/2017 2:03 PM EST 08/12/2017 2:03 PM EST Arturo Waterman MD POINT OF CARE TEST O RDERAFRANNIE [facility] [place] [address] * POCT Glucose (08/12/2017 11:43 AM EST) Glucose, POC 98 65 - 199 mg/dL [facility] Comment: Supplemental ranges: <140 mg/dL before meals <180 mg/dL all other times of the day Blood specimen (specimen) 08/12/2017 11:43 AM EST 08/12/2017 11:43 AM EST Arturo Waterman MD POINT OF CARE TEST O RDERAFRANNIE [facility] [place] [address] * POCT Glucose (08/11/2017 7:58 PM EST) Glucose, POC 120 65 - 199 mg/dL [facility] Comment: Supplemental ranges: <140 mg/dL before meals <180 mg/dL all other times of the day Blood specimen (specimen) 08/11/2017 7:58 PM EST 08/11/2017 7:58 PM EST Arturo Waterman MD POINT OF CARE TEST O RDERAFRANNIE Performing Organization Address City/[facility]/ZIP Co de Phone Number [facility] [place] [address] * POCT Glucose (08/11/2017 11:20 AM EST) Glucose, POC 95 65 - 199 mg/dL [facility] Comment: Supplemental ranges: <140 mg/dL before meals <180 mg/dL all other times of the day Blood specimen (specimen) 08/11/2017 11:20 AM EST 08/11/2017 11:20 AM EST Artuor Waterman MD POINT OF CARE TEST O RDERAFRANNIE Performing Organization Address [facility] Co de Phone Number [facility] [place] [address] * POCT Glucose (08/11/2017 10:08 AM EST) Glucose, POC 102 65 - 199 mg/dL [facility] Comment: Supplemental ranges: <140 mg/dL before meals <180 mg/dL all other times of the day Blood specimen (specimen) 08/11/2017 10:08 AM EST 08/11/2017 10:08 AM EST Arturo Waterman MD POINT OF CARE TEST O RDERAFRANNIE Performing Organization Address City/[facility] Co de Phone Number [facility] [place] [address] * US OB Follow Up Evaluation (08/11/2017 [...] 10:10 am) PATIENT INFO: ID #: ? [id number] ?: ??[birth year] (27 yrs) Name: ? PAM Lopez ?Visit Date: 08/11/2017 09:26 am ? JAYA PERFORMED BY: Performed By: ? Dhara Hicks RDMS Attending: ?Emanuel Barrett MD Referred By: ?EMANUEL BARRETT Location: ? [facility] SERVICE(S) PROVIDED: ??UOBFOL - Efw - Growth - [place] - [id number] ? [id number] ??UOBTV - Viability - Cervical Length -Transvaginal - ?? [id number] ??[id number] INDICATIONS: ??29 weeks gestation of ?Z3A.29 ??26 [...] 08/11/2017 10:10 am) PATIENT INFO: ID #: [id number] : [birth year] (27 yrs) Name: PAM Lopez Visit Date: 08/11/2017 09:26 am [place] PERFORMED BY: Performed By: Dhaar Hicks RDMS Attending: Emanuel Barrett MD Referred By: EMANUEL BARRETT Location: [facility] SERVICE(S) PROVIDED: UOBFOL - Efw - Growth - [place] - [id number] UOBTV - Viability - Cervical Length -Transvaginal - [id number] INDICATIONS: 29 weeks gestation of Z3A.29 26 [...] Glucose, POC 141 65 - 199 mg/dL [facility] Comment: Supplemental ranges: <140 mg/dL before meals <180 mg/dL all other times of the day Blood specimen (specimen) 08/10/2017 6:41 PM EST 08/10/2017 6:41 PM EST Arturo Waterman MD POINT OF CARE TEST O RDERABLES [facility] [place] [address] * POCT Glucose (08/10/2017 1:11 PM EST) Glucose, POC 150 65 - 199 mg/dL [facility] Comment: Supplemental ranges: <140 mg/dL before meals <180 mg/dL all other times of the day Blood specimen (specimen) 08/10/2017 1:11 PM EST 08/10/2017 1:11 PM EST Arturo Waterman MD POINT OF CARE TEST O RDERAFRANNIE Performing Organization Address City/[facility] Co de Phone Number [facility] [place] [address] * POCT Glucose (08/10/2017 11:40 AM EST) Glucose, POC 95 65 - 199 mg/dL [facility] Comment: Supplemental ranges: <140 mg/dL before meals <180 mg/dL all other times of the day Blood specimen (specimen) 08/10/2017 11:40 AM EST 08/10/2017 11:40 AM EST Arturo Waterman MD POINT OF CARE TEST O JORGE ALBERTO Performing Organization Address [facility] Co de Phone Number [facility] [place] [address] * POCT Glucose (08/09/2017 6:58 PM EST) Glucose, POC 139 65 - 199 mg/dL [facility] Comment: Supplemental ranges: <140 mg/dL before meals <180 mg/dL all other times of the day Blood specimen (specimen) 08/09/2017 6:58 PM EST 08/09/2017 6:58 PM EST Arturo Waterman MD POINT OF CARE TEST O RDERAFRANNIE Performing Organization Address City/[facility] Co de Phone Number [facility] [place] [address] * POCT Glucose (08/09/2017 10:58 AM EST) Glucose, POC 97 65 - 199 mg/dL [facility] Comment: Supplemental ranges: <140 mg/dL before meals <180 mg/dL all other times of the day Blood specimen (specimen) 08/09/2017 10:58 AM EST 08/09/2017 10:58 AM EST Arturo Waterman MD POINT OF CARE TEST O RDERABLES Performing Organization Address City/[facility]/ZIP Co de Phone Number [facility] [place] [address] * POCT Glucose (08/08/2017 9:51 PM EST) Glucose, POC 140 65 - 199 mg/dL [facility] Comment: Supplemental ranges: <140 mg/dL before meals <180 mg/dL all other times of the day Blood specimen (specimen) 08/08/2017 9:51 PM EST 08/08/2017 9:51 PM EST Arturo Waterman MD POINT OF CARE TEST O RDERAFRANNIE Performing Organization Address [facility]/ZIP Co de Phone Number [facility] [place] [address] * POCT Glucose (08/08/2017 2:09 PM EST) Glucose, POC 138 65 - 199 mg/dL [facility] Comment: Supplemental ranges: <140 mg/dL before meals <180 mg/dL all other times of the day Blood specimen (specimen) 08/08/2017 2:09 PM EST 08/08/2017 2:09 PM EST Arturo Waterman MD POINT OF CARE TEST O RDERAFRANNIE Performing Organization Address City/[facility]/ZIP Co de Phone Number [facility] [place] [address] * POCT Glucose (08/08/2017 11:56 AM EST) Glucose, POC 85 65 - 199 mg/dL [facility] Comment: Supplemental ranges: <140 mg/dL before meals <180 mg/dL all other times of the day Blood specimen (specimen) 08/08/2017 11:56 AM EST 08/08/2017 11:56 AM EST Arturo Waterman MD POINT OF CARE TEST O JORGE ALBERTO Performing Organization Address City/[facility]/ZIP Co de Phone Number [facility] [place] [address] * POCT Glucose (08/07/2017 9:41 PM EST) Glucose, POC 113 65 - 199 mg/dL [facility] Comment: Supplemental ranges: <140 mg/dL before meals <180 mg/dL all other times of the day Blood specimen (specimen) 08/07/2017 9:41 PM EST 08/07/2017 9:41 PM EST Arturo Waterman MD POINT OF CARE TEST O JORGE ALBERTO Performing Organization Address [facility]/ZIP Co de Phone Number [facility] [place] [address] * POCT Glucose (08/07/2017 3:04 PM EST) Glucose, POC 152 65 - 199 mg/dL [facility] Comment: Supplemental ranges: <140 mg/dL before meals <180 mg/dL all other times of the day Blood specimen (specimen) 08/07/2017 3:04 PM EST 08/07/2017 3:04 PM EST Arturo Waterman MD POINT OF CARE TEST O BENJYERAFRANNIE Performing Organization Address City/[facility]/ZIP Co de Phone Number [facility] [place] [address] * POCT Glucose (08/07/2017 10:04 AM EST) Glucose, POC 87 65 - 199 mg/dL [facility] Comment: Supplemental ranges: <140 mg/dL before meals <180 mg/dL all other times of the day Blood specimen (specimen) 08/07/2017 10:04 AM EST 08/07/2017 10:04 AM EST Arturo Waterman MD POINT OF CARE TEST O JORGE ALBERTO Performing Organization Address [facility] Co de Phone Number [facility] [place] [address] * POCT Glucose (08/06/2017 8:30 PM EST) Glucose, POC 118 65 - 199 mg/dL [facility] Comment: Supplemental ranges: <140 mg/dL before meals <180 mg/dL all other times of the day Blood specimen (specimen) 08/06/2017 8:30 PM EST 08/06/2017 8:30 PM EST Arturo Waterman MD POINT OF CARE TEST O JORGE ALBERTO Performing Organization Address [facility] Co de Phone Number [facility] [place] [address] * POCT Glucose (08/06/2017 3:20 PM EST) Glucose, POC 146 65 - 199 mg/dL [facility] Comment: Supplemental ranges: <140 mg/dL before meals <180 mg/dL all other times of the day Blood specimen (specimen) 08/06/2017 3:20 PM EST 08/06/2017 3:20 PM EST Arturo Waterman MD POINT OF CARE TEST O JORGE ALBERTO Performing Organization Address [facility] Co de Phone Number [facility] [place] [address] * POCT Glucose (08/06/2017 11:50 AM EST) Glucose, POC 136 65 - 199 mg/dL [facility] Comment: Supplemental ranges: <140 mg/dL before meals <180 mg/dL all other times of the day Blood specimen (specimen) 08/06/2017 11:50 AM EST 08/06/2017 11:50 AM EST Arturo Waterman MD POINT OF CARE TEST O RDERAFRANNIE Performing Organization Address [facility] Co de Phone Number [facility] [place] [address] * POCT Glucose (08/06/2017 9:55 AM EST) Glucose, POC 89 65 - 199 mg/dL [facility] Comment: Supplemental ranges: <140 mg/dL before meals <180 mg/dL all other times of the day Blood specimen (specimen) 08/06/2017 9:55 AM EST 08/06/2017 9:55 AM EST Arturo Waterman MD POINT OF CARE TEST O BENJYERAFRANNIE Performing Organization Address [facility] de Phone Number [facility] [place] [address] * POCT Glucose (08/05/2017 7:59 PM EST) Glucose, POC 102 65 - 199 mg/dL [facility] Comment: Supplemental ranges: <140 mg/dL before meals <180 mg/dL all other times of the day Blood specimen (specimen) 08/05/2017 7:59 PM EST 08/05/2017 7:59 PM EST Arturo Waterman MD POINT OF CARE TEST O RDERAFRANNIE Performing Organization Address [facility] Co de Phone Number [facility] [place] [address] * POCT Glucose (08/05/2017 11:33 AM EST) Glucose, POC 140 65 - 199 mg/dL [facility] Comment: Supplemental ranges: <140 mg/dL before meals <180 mg/dL all other times of the day Blood specimen (specimen) 08/05/2017 11:33 AM EST 08/05/2017 11:33 AM EST Arturo Waterman MD POINT OF CARE TEST O RDERABLES Performing Organization Address [facility] Co de Phone Number [facility] [place] [address] * POCT Glucose (08/05/2017 7:36 AM EST) Glucose, POC 83 65 - 199 mg/dL [facility] Comment: Supplemental ranges: <140 mg/dL before meals <180 mg/dL all other times of the day Blood specimen (specimen) 08/05/2017 7:36 AM EST 08/05/2017 7:36 AM EST Arturo Waterman MD POINT OF CARE TEST O RDERAFRANNIE Performing Organization Address [facility] Co de Phone Number [facility] [place] [address] * POCT Glucose (08/04/2017 8:27 PM EST) Glucose, POC 116 65 - 199 mg/dL [facility] Comment: Supplemental ranges: <140 mg/dL before meals <180 mg/dL all other times of the day Blood specimen (specimen) 08/04/2017 8:27 PM EST 08/04/2017 8:27 PM EST Arturo Waterman MD POINT OF CARE TEST O RDERAFRANNIE Performing Organization Address [facility] Co de Phone Number [facility] [place] [address] * POCT Glucose (08/04/2017 7:25 PM EST) Glucose, POC 169 65 - 199 mg/dL [facility] Comment: Supplemental ranges: <140 mg/dL before meals <180 mg/dL all other times of the day Blood specimen (specimen) 08/04/2017 7:25 PM EST 08/04/2017 7:25 PM EST Arturo Waterman MD POINT OF CARE TEST O RDERABLES Performing Organization Address [facility]/[place]/[facility] Co de Phone Number [facility] [place] [address] * POCT Glucose (08/04/2017 3:04 PM EST) Glucose, POC 122 65 - 199 mg/dL [facility] Comment: Supplemental ranges: <140 mg/dL before meals <180 mg/dL all other times of the day Blood specimen (specimen) 08/04/2017 3:04 PM EST 08/04/2017 3:04 PM EST Arturo Waterman MD POINT OF CARE TEST O RDERABLES Performing Organization Address [facility] Co de Phone Number [facility] [place] [address] * POCT Glucose (08/04/2017 10:59 AM EST) Glucose, POC 106 65 - 199 mg/dL [facility] Comment: Supplemental ranges: <140 mg/dL before meals <180 mg/dL all other times of the day Blood specimen (specimen) 08/04/2017 10:59 AM EST 08/04/2017 10:59 AM EST Arturo Waterman MD POINT OF CARE TEST O RDERABLES Performing Organization Address [facility] Co de Phone Number [facility] [place] [address] * POCT Glucose (08/04/2017 9:06 AM EST) Glucose, POC 85 65 - 199 mg/dL [facility] Comment: Supplemental ranges: <140 mg/dL before meals <180 mg/dL all other times of the day Blood specimen (specimen) 08/04/2017 9:06 AM EST 08/04/2017 9:06 AM EST Arturo Waterman MD POINT OF CARE TEST O RDERABLES Performing Organization Address City/[facility]/ZIP Co de Phone Number [facility] [place] [address] * POCT Glucose (08/03/2017 7:24 PM EST) Glucose, POC 118 65 - 199 mg/dL [facility] Comment: Supplemental ranges: <140 mg/dL before meals <180 mg/dL all other times of the day Blood specimen (specimen) 08/03/2017 7:24 PM EST 08/03/2017 7:24 PM EST Arturo Waterman MD POINT OF CARE TEST O RDERABLES [facility] [place] [address] * POCT Glucose (08/03/2017 11:22 AM EST) Glucose, POC 106 65 - 199 mg/dL [facility] Comment: Supplemental ranges: <140 mg/dL before meals <180 mg/dL all other times of the day Blood specimen (specimen) 08/03/2017 11:22 AM EST 08/03/2017 11:22 AM EST Li Sepulveda MD POINT OF CARE TEST O RDERABLES [facility] [place] [address] * POCT Glucose (08/03/2017 8:52 AM EST) Glucose, POC 86 65 - 199 mg/dL [facility] Comment: Supplemental ranges: <140 mg/dL before meals <180 mg/dL all other times of the day Blood specimen (specimen) 08/03/2017 8:52 AM EST 08/03/2017 8:52 AM EST Li Sepulveda MD POINT OF CARE TEST O RDERABLES [facility] [place] [address] * POCT Glucose (08/02/2017 6:59 PM EST) Glucose, POC 141 65 - 199 mg/dL [facility] Comment: Supplemental ranges: <140 mg/dL before meals <180 mg/dL all other times of the day Blood specimen (specimen) 08/02/2017 6:59 PM EST 08/02/2017 6:59 PM EST Li Sepulveda MD POINT OF CARE TEST O JORGE ALBERTO [facility] [place] [address] * POCT Glucose (08/02/2017 3:42 PM EST) Glucose, POC 138 65 - 199 mg/dL [facility] Comment: Supplemental ranges: <140 mg/dL before meals <180 mg/dL all other times of the day Blood specimen (specimen) 08/02/2017 3:42 PM EST 08/02/2017 3:42 PM EST Li Sepulveda MD POINT OF CARE TEST O JORGE ALBERTO Performing Organization Address City/[facility]/ZIP Co de Phone Number [facility] [place] [address] * POCT Glucose (08/02/2017 11:58 AM EST) Glucose, POC 128 65 - 199 mg/dL [facility] Comment: Supplemental ranges: <140 mg/dL before meals <180 mg/dL all other times of the day Blood specimen (specimen) 08/02/2017 11:58 AM EST 08/02/2017 11:58 AM EST Li Sepulveda MD POINT OF CARE TEST O JORGE ALBERTO [facility] [place] [address] * POCT Glucose (08/02/2017 8:01 AM EST) Glucose, POC 81 65 - 199 mg/dL [facility] Comment: Supplemental ranges: <140 mg/dL before meals <180 mg/dL all other times of the day Blood specimen (specimen) 08/02/2017 8:01 AM EST 08/02/2017 8:01 AM EST Li Sepulveda MD POINT OF CARE TEST O JORGE ALBERTO Performing Organization Address City/[facility]/ZIP Co de Phone Number [facility] [place] [address] * POCT Glucose (08/01/2017 7:58 PM EST) Glucose, POC 102 65 - 199 mg/dL [facility] Comment: Supplemental ranges: <140 mg/dL before meals <180 mg/dL all other times of the day Blood specimen (specimen) 08/01/2017 7:58 PM EST 08/01/2017 7:58 PM EST Li Sepulveda MD POINT OF CARE TEST O JORGE ALBERTO Performing Organization Address [facility] Co de Phone Number [facility] [place] [address] * POCT Glucose (08/01/2017 3:29 PM EST) Glucose, POC 124 65 - 199 mg/dL [facility] Comment: Supplemental ranges: <140 mg/dL before meals <180 mg/dL all other times of the day Blood specimen (specimen) 08/01/2017 3:29 PM EST 08/01/2017 3:29 PM EST Li Sepulveda MD POINT OF CARE TEST O JORGE ALBERTO Performing Organization Address City/[facility] Co de Phone Number [facility] [place] [address] * POCT Glucose (08/01/2017 10:57 AM EST) Glucose, POC 104 65 - 199 mg/dL [facility] Comment: Supplemental ranges: <140 mg/dL before meals <180 mg/dL all other times of the day Blood specimen (specimen) 08/01/2017 10:57 AM EST 08/01/2017 10:57 AM EST Li Sepulveda MD POINT OF CARE TEST O RDERAFRANNIE Performing Organization Address City/[facility] Co de Phone Number [facility] [place] [address] * POCT Glucose (08/01/2017 6:08 AM EST) Glucose, POC 114 65 - 199 mg/dL [facility] Comment: Supplemental ranges: <140 mg/dL before meals <180 mg/dL all other times of the day Blood specimen (specimen) 08/01/2017 6:08 AM EST 08/01/2017 6:08 AM EST Li Sepulveda MD POINT OF CARE TEST O JORGE ALBERTO Performing Organization Address [facility] Co de Phone Number [facility] [place] [address] * POCT Glucose (07/31/2017 7:38 PM EST) Glucose, POC 129 65 - 199 mg/dL [facility] Comment: Supplemental ranges: <140 mg/dL before meals <180 mg/dL all other times of the day Blood specimen (specimen) 07/31/2017 7:38 PM EST 07/31/2017 7:38 PM EST Li Sepulveda MD POINT OF CARE TEST O RDERAFRANNIE Performing Organization Address [facility] Co de Phone Number [facility] [place] [address] * POCT Glucose (07/31/2017 4:34 PM EST) Glucose, POC 152 65 - 199 mg/dL [facility] Comment: Supplemental ranges: <140 mg/dL before meals <180 mg/dL all other times of the day Blood specimen (specimen) 07/31/2017 4:34 PM EST 07/31/2017 4:34 PM EST Li Sepulveda MD POINT OF CARE TEST O JORGE ALBERTO Performing Organization Address [facility] Co de Phone Number [facility] [place] [address] * POCT Glucose (07/31/2017 2:10 PM EST) Glucose, POC 89 65 - 199 mg/dL [facility] Comment: Supplemental ranges: <140 mg/dL before meals <180 mg/dL all other times of the day Blood specimen (specimen) 07/31/2017 2:10 PM EST 07/31/2017 2:10 PM EST Li Sepulveda MD POINT OF CARE TEST O JORGE ALBERTO Performing Organization Address [facility] Co de Phone Number [facility] [place] [address] * POCT Glucose (07/31/2017 11:09 AM EST) Glucose, POC 152 65 - 199 mg/dL [facility] Comment: Supplemental ranges: <140 mg/dL before meals <180 mg/dL all other times of the day Blood specimen (specimen) 07/31/2017 11:09 AM EST 07/31/2017 11:09 AM EST Li Sepulveda MD POINT OF CARE TEST O JORGE ALBERTO Performing Organization Address [facility] Co de Phone Number [facility] [place] [address] * POCT Glucose (07/31/2017 6:15 AM EST) Glucose, POC 95 65 - 199 mg/dL [facility] Comment: Supplemental ranges: <140 mg/dL before meals <180 mg/dL all other times of the day Blood specimen (specimen) 07/31/2017 6:15 AM EST 07/31/2017 6:15 AM EST Li Sepulveda MD POINT OF CARE TEST O JORGE ALBERTO Performing Organization Address [facility] de Phone Number [facility] [place] [address] * POCT Glucose (07/31/2017 2:19 AM EST) Glucose, POC 127 65 - 199 mg/dL [facility] Comment: Supplemental ranges: <140 mg/dL before meals <180 mg/dL all other times of the day Blood specimen (specimen) 07/31/2017 2:19 AM EST 07/31/2017 2:19 AM EST Li Sepulveda MD POINT OF CARE TEST O JORGE ALBERTO Performing Organization Address [facility] de Phone Number [facility] [place] [address] * POCT Glucose (07/30/2017 10:11 PM EST) Glucose, POC 112 65 - 199 mg/dL [facility] Comment: Supplemental ranges: <140 mg/dL before meals <180 mg/dL all other times of the day Blood specimen (specimen) 07/30/2017 10:11 PM EST 07/30/2017 10:11 PM EST Li Sepulveda MD POINT OF CARE TEST O JORGE ALBRETO Performing Organization Address [facility] de Phone Number [facility] [place] [address] * POCT Glucose (07/30/2017 5:26 PM EST) Glucose, POC 128 65 - 199 mg/dL [facility] Comment: Supplemental ranges: <140 mg/dL before meals <180 mg/dL all other times of the day Blood specimen (specimen) 07/30/2017 5:26 PM EST 07/30/2017 5:26 PM EST Li Sepulveda MD POINT OF CARE TEST O RDERAFRANNIE Performing Organization Address [facility] Phone Number [facility] [place] [address] * POCT Glucose (07/30/2017 1:18 PM EST) Glucose, POC 152 65 - 199 mg/dL [facility] Comment: Supplemental ranges: <140 mg/dL before meals <180 mg/dL all other times of the day Blood specimen (specimen) 07/30/2017 1:18 PM EST 07/30/2017 1:18 PM EST Li Sepulveda MD POINT OF CARE TEST O JORGE ALBERTO Performing Organization Address [facility] Phone Number [facility] [place] [address] * POCT Glucose (07/30/2017 9:39 AM EST) Glucose, POC 134 65 - 199 mg/dL [facility] Comment: Supplemental ranges: <140 mg/dL before meals <180 mg/dL all other times of the day Blood specimen (specimen) 07/30/2017 9:39 AM EST 07/30/2017 9:39 AM EST Li Sepulveda MD POINT OF CARE TEST O JORGE ALBERTO Performing Organization Address [facility] Phone Number [facility] [place] [address] * POCT Glucose (07/30/2017 5:14 AM EST) Glucose, POC 125 65 - 199 mg/dL [facility] Comment: Supplemental ranges: <140 mg/dL before meals <180 mg/dL all other times of the day Blood specimen (specimen) 07/30/2017 5:14 AM EST 07/30/2017 5:14 AM EST Li Sepulveda MD POINT OF CARE TEST O RDERABLES Performing Organization Address [facility] Co de Phone Number [facility] [place] [address] * POCT Glucose (07/30/2017 1:13 AM EST) Glucose, POC 153 65 - 199 mg/dL [facility] Comment: Supplemental ranges: <140 mg/dL before meals <180 mg/dL all other times of the day Blood specimen (specimen) 07/30/2017 1:13 AM EST 07/30/2017 1:13 AM EST Li Sepulveda MD POINT OF CARE TEST O RDERABLES Performing Organization Address [facility] de Phone Number [facility] [place] [address] * POCT Glucose (07/29/2017 9:06 PM EST) Glucose, POC 136 65 - 199 mg/dL [facility] Comment: Supplemental ranges: <140 mg/dL before meals <180 mg/dL all other times of the day Blood specimen (specimen) 07/29/2017 9:06 PM EST 07/29/2017 9:06 PM EST Li Sepulveda MD POINT OF CARE TEST O RDERABLES Performing Organization Address [facility] de Phone Number [facility] [place] [address] * POCT Glucose (07/29/2017 6:06 PM EST) Glucose, POC 137 65 - 199 mg/dL [facility] Comment: Supplemental ranges: <140 mg/dL before meals <180 mg/dL all other times of the day Blood specimen (specimen) 07/29/2017 6:06 PM EST 07/29/2017 6:06 PM EST Li Sepulveda MD POINT OF CARE TEST O RDERAFRANNIE Performing Organization Address [facility] Co de Phone Number [facility] [place] [address] * POCT Glucose (07/29/2017 1:53 PM EST) Glucose, POC 130 65 - 199 mg/dL [facility] Comment: Supplemental ranges: <140 mg/dL before meals <180 mg/dL all other times of the day Blood specimen (specimen) 07/29/2017 1:53 PM EST 07/29/2017 1:53 PM EST Li Sepulveda MD POINT OF CARE TEST O RDERABLES [facility] [place] [address] * POCT Glucose (07/29/2017 9:37 AM EST) Glucose, POC 149 65 - 199 mg/dL [facility] Comment: Supplemental ranges: <140 mg/dL before meals <180 mg/dL all other times of the day Blood specimen (specimen) 07/29/2017 9:37 AM EST 07/29/2017 9:37 AM EST Li Sepulveda MD POINT OF CARE TEST O RDERAFRANNIE Performing Organization Address City/[facility]/ZIP Co de Phone Number [facility] [place] [address] * POCT Glucose (07/29/2017 5:16 AM EST) Glucose, POC 130 65 - 199 mg/dL [facility] Comment: Supplemental ranges: <140 mg/dL before meals <180 mg/dL all other times of the day Blood specimen (specimen) 07/29/2017 5:16 AM EST 07/29/2017 5:16 AM EST Li Sepulveda MD POINT OF CARE TEST O RDERAFRANNIE [facility] [place] [address] * POCT Glucose (07/29/2017 1:10 AM EST) Glucose, POC 135 65 - 199 mg/dL [facility] Comment: Supplemental ranges: <140 mg/dL before meals <180 mg/dL all other times of the day Blood specimen (specimen) 07/29/2017 1:10 AM EST 07/29/2017 1:10 AM EST Li Sepulveda MD POINT OF CARE TEST O RDERABLES Performing Organization Address [facility] Co de Phone Number [facility] [place] [address] * POCT Glucose (07/28/2017 9:05 PM EST) Glucose, POC 127 65 - 199 mg/dL [facility] Comment: Supplemental ranges: <140 mg/dL before meals <180 mg/dL all other times of the day Blood specimen (specimen) 07/28/2017 9:05 PM EST 07/28/2017 9:05 PM EST Li Sepulveda MD POINT OF CARE TEST O RDERABLES Performing Organization Address [facility] Co de Phone Number [facility] [place] [address] * Group B Streptococcus Screen (07/28/2017 6:55 PM EST) GBS Screen Neg [facility] Pooled specimen from vaginal introitus and rectal swab (specimen) 07/28/2017 6:55 PM EST 07/28/2017 7:41 PM EST Comment:Penicillin Allergy?- >No Narrative Resulting Agency Comment Spec In Lab Li Sepulveda MD MICROBIOLOGY - GENER AL ORDERABLES Performing Organization Address [facility] Co de Phone Number [facility] [place] [address] * Antibody screen manual (07/28/2017 6:55 PM EST) AB Screen Interp Negative [facility] Blood specimen (specimen) Venous Draw / Unknown 07/28/2017 6:55 PM EST 07/28/2017 7:55 PM EST Narrative Resulting Agency Comment Spec In Lab Emerita Rosario MD BLOOD BANK LAB ORDER KURT Performing Organization Address City/[facility]/ZIP Co de Phone Number [facility] [place] [address] * Ab Comment (07/28/2017 6:55 PM EST) Ab Information INTERPRETATION : The patient's serum has a casey-agglutinin that reacts only with solid-phase antigens. ??No casey-agglutinin is detected when red cells in solution are used in the assay. ??The casey-agglutinin detected is not clinically significant. Kanika Williamson i, MD, PhD Transfusion Medicine Service 08/06/17 17:28 [facility] Comment: KANIKA LIM, Pathologist Verified:08/06/17 Blood specimen (specimen) 07/28/2017 6:55 PM EST 07/28/2017 7:58 PM EST Narrative Resulting Agency Comment Spec In Lab Emerita Rosario MD BLOOD BANK LAB ORDER KURT Performing Organization Address City/[facility]/ZIP Co de Phone Number [facility] [place] [address] * Antibody identification (07/28/2017 6:55 PM EST) Ab Identified Panagglutinin MA RY [facility] Blood specimen (specimen) 07/28/2017 6:55 PM EST 07/28/2017 7:58 PM EST Narrative Resulting Agency Comment Spec In Lab Li Sepulveda MD BLOOD BANK LAB ORDER KURT [facility] [place] [address] * ABORH Recheck Status (07/28/2017 6:55 PM EST) ABORH Recheck Order Order Placed [facility] ABORH Type Recheck Complete [facility] Blood specimen (specimen) 07/28/2017 6:55 PM EST 07/28/2017 7:58 PM EST Narrative Resulting Agency Comment Spec In Lab Li Sepulveda MD BLOOD BANK LAB ORDER KURT [facility] [place] [address] * Antibody screen (07/28/2017 6:55 PM EST) Pathologist [facility] [place] Ab Screen Interp Positive [facility] Expires at [id number] on: 07/31/2017 [facility] Blood specimen (specimen) 07/28/2017 6:55 PM EST 07/28/2017 7:58 PM EST Narrative Resulting Agency Comment Spec In Lab Li Sepulveda MD BLOOD BANK LAB ORDER KURT Performing Organization Address City/[facility]/ZIP Co de Phone Number [facility] [place] [address] * ABO/Rh Typing (07/28/2017 6:55 PM EST) ABORH Type B Pos [facility] Blood specimen (specimen) 07/28/2017 6:55 PM EST 07/28/2017 7:58 PM EST Narrative Resulting Agency Comment Spec In Lab Li Sepulveda MD BLOOD BANK LAB ORDER KURT [facility] [place] [address] * (ABNORMAL) Differential, Automated (07/28/2017 6:55 PM EST) Neutrophil % 72.4 % [facility] Neutrophil Absolute 7.06(H) 1.70 - 6.10 x10(3)/mc L [facility] Lymph % 19.0 % [facility] Lymphocytes Abs 1.8 0.9 - 3.2 x10(3)/[facility] Monocyte % 7.2 % [facility] Monocyte Abs 0.7 0.3 - 0.9 x10(3)/[facility] Eos % 0.8 % [facility] Eosinophils Abs 0.1 0.0 - 0.4 x10(3)/[facility] Basophil % 0.2 % [facility] Baso Absolute 0.0 0.0 - 0.1 x10(3)/[facility] Immature Gran % 0.40 % [facility] Comment: Immature granulocytes(IG's)percentage and absolute count will include metamyelocytes, myelocytes, and promyelocytes. Blood smears from CBCs yielding IG's will be scanned manually for concordance. If this scan disagrees with the automated IG or if promyelocytes are noted, a manual differential will be performed. Immature Gran Absolute 0.04 0.00 - 0.04 x10(3)/[facility] Blood specimen (specimen) 07/28/2017 6:55 PM EST 07/28/2017 7:24 PM EST Narrative Resulting Agency Comment Spec In Lab Li Sepulveda MD HEMATOLOGY ORDERABLE S Performing Organization Address City/State/[facility] Co de Phone Number [facility] [place] [address] * (ABNORMAL) Hemogram (07/28/2017 6:55 PM EST) White Blood Cell 9.8(H) 4.0 - 9.5 x10(3)/[facility] Red Blood Cell 3.89(L) 4.00 - 5.21 x10(6)/[facility] Hemoglobin 11.4(L) 11.7 - 15.5 gm/dL [facility] Hematocrit 33.2(L) 35.7 - 45.8 % [facility] Mean Cell Volume 85.3 82.6 - 94.4 fL [facility] Mean Cell Hemoglobin 29.3 27.1 - 32.0 pg [facility] Mean Cell Hemoglobin Concentration 34.3 31.7 - 35.0 gm/dL [facility] Platelet 274 145 - 357 x10(3)/mc L [facility] RDW Standard Deviation 40.0 37.0 - 46.0 fL [facility] RDW coefficient of variation 13.0 11.5 - 14.1 % [facility] Mean Platelet Volume 8.5 7.6 - 12.9 fL [facility] NRBC% auto 0.0 % [facility] NRBC Absolute 0.000 0.000 - 0.000 x10(3)/mc L [facility] Blood specimen (specimen) 07/28/2017 6:55 PM EST 07/28/2017 7:24 PM EST Narrative Resulting Agency Comment Spec In Lab Li Sepulveda MD HEMATOLOGY ORDERABLE S Performing Organization Address City/[facility]/ZIP Co de Phone Number [facility] [place] [address] * Group B Strep Culture Screen (07/28/2017 6:55 PM EST) [facility] Group B Streptococcus Culture No Group B Streptococci isolated [facility] Pooled specimen from vaginal introitus and rectal swab (specimen) 07/28/2017 6:55 PM EST 07/28/2017 7:41 PM EST Comment:PENICILLIN ALLERGY?- >NO Narrative Resulting Agency Comment Spec In Lab Li Sepulveda MD MICROBIOLOGY - GENER AL ORDERABLES [facility] [place] [address] * THC (Marijuana), Urine Confirmation (07/28/2017 6:45 [...] developed and its performance characteristics ?determined by [facility] in a manner consistent with CLIA ?requirements. This test has not been cleared or approved by ?the U.S. Food and Drug Administration. ?Test Performed by: ?[facility] ?[address] [place] [address] [facility] Urine specimen (specimen) 07/28/2017 6:45 PM EST 07/29/2017 8:33 AM EST Narrative Resulting Agency Comment Spec In Lab Emerita Rosario MD LAB SEND OUT ORDERAB LES [facility] [place] [address] * (ABNORMAL) TEREZA Screen w/ Confirmation (07/28/2017 6:45 PM EST) Pathologist [facility] [place] Barbiturates Screen, Urine None Detected None Detected [facility] Comment: The barbiturate screen detects barbiturates [...] Benzodiazepines Screen, Urine None Detected None Detected [facility] Comment: The benzodiazepines screen detects benzodiazepines [...] Cocaine Screen, Urine None Detected None Detected [facility] Comment: The cocaine metabolites screen detects benzoylecgonine (Cocaine Metabolite) at concentrations >150 ng/mL. A ? Presumptive Positive? result indicates that the screening result was positive but has not yet been confirmed by a highly-specific method. As with any screen, occasional false positive results from cross-reacting substances may occur. Not for Medico-Legal Purposes. Methadone Metabolites Screen, Urine None Detected None Detected [facility] Comment: The methadone metabolite screen detects EDDP (major methadone metabolite) at concentrations >100 ng/mL. A ? Presumptive Positive? result indicates that the screening result was positive but has not yet been confirmed by a highly-specific method. As with any screen, occasional false positive results from cross-reacting substances may occur. Not for Medico-Legal Purposes. Opiate Screen, Urine None Detected None Detected [facility] Comment: The opiates screen detects opiates [...] Cannabinoid Screen, Urine Presumptive Pos(A) None Detected [facility] Comment: The marijuana metabolites screen detects the THC metabolite (37-ntc-2-carboxy-delta 9-THC) at concentrations >20 ng/mL. A ? Presumptive Positive? result indicates that the screening result was positive but has not yet been confirmed by a highly-specific method. As with any screen, occasional false positive results from cross-reacting substances may occur. Not for Medico-Legal Purposes. Oxycodone Screen, Urine None Detected None Detected [facility] Comment: The oxycodone screen detects oxycodone and oxymorphone at concentrations >100 ng/mL. A ? Presumptive Positive? result indicates that the screening result was positive but has not yet been confirmed by a highly-specific method. As with any screen, occasional false positive results from cross-reacting substances may occur. Not for Medico-Legal Purposes. Buprenorphine Screen, Urine None Detected None Detected [facility] Comment: The buprenorphine screen detects buprenorphine at concentrations >5 ng/mL. A ? Presumptive Positive? result indicates that the screening result was positive but has not yet been confirmed by a highly-specific method. As with any screen, occasional false positive results from cross-reacting substances may occur. Not for Medico-Legal Purposes. Fentanyl Screen, Urine None Detected None Detected [facility] Comment: The fentanyl screen detects fentanyl at concentrations >2 ng/mL. A ? Presumptive Positive? result indicates that the screening result was positive but has not yet been confirmed by a highly-specific method. As with any screen, occasional false positive results from cross-reacting substances may occur. Not for Medico-Legal Purposes. Tricyclics Screen, Urine None Detected None Detected [facility] Comment: The tricyclics screen detects tricyclic [...] Ethanol Screen, Urine None Detected None Detected [facility] Comment:This urine ethanol a ssay detects ethanol at concentrations >/= 100 mg/L. Amphetamines Screen, Urine None Detected None Detected [facility] Comment: The amphetamine screen detects d-amphetamine and d-methamphetamine at concentrations >300 ng/mL. A ? Presumptive Positive? result indicates that the screening result was positive but has not yet been confirmed by a highly-specific method. As with any screen, occasional false positive results from cross-reacting substances may occur. Not for Medico-Legal Purposes. Adulterants Screen, Urine None Detected None Detected [facility] Comment: No adulteration or dilution of this urine sample was detected. All urine samples submitted for urine drugs of abuse analysis are tested for creatinine concentration, pH, and for the presence of oxidants, nitrites, and chromate. Urine specimen (specimen) 07/28/2017 6:45 PM EST 07/28/2017 7:23 PM EST Narrative Resulting Agency Comment Spec In Lab Li Sepulveda MD CHEMISTRY ORDERABLES Performing Organization Address [facility] [facility] Co de Phone Number [facility] [place] [address] * TEREZA Request (07/28/2017 6:45 PM EST) TEREZA Conf Requested Yes [facility] TEREZA Requested See Comment [facility] Comment:Refer to the TEREZA Scr een w/ Confirmation order for results. Urine specimen (specimen) 07/28/2017 6:45 PM EST 07/28/2017 7:23 PM EST Narrative Resulting Agency Comment Spec In Lab Li Sepulveda MD URINE ORDERABLES Performing Organization Address [facility] Co de Phone Number [facility] [place] [address] documented in this encounter Visit Diagnoses Not [...] 0900 (Due)1500 (Due)2116 (Given - Provider: Emely Nagy RN) 0953 (Given - Provider: Asif Grove RN)1500 (Not Given - Provider: Asif Grove RN - Reason: Patient not available) ketorolac (TORADOL) injection 15 mg (CANCELED)(Linked Group 1) 15 mg, Intravenous, EVERY 6 HOURS SCHEDULED, 16 doses, First dose on Thu09/12/17 at 1415, Last dose on Thu09/16/17 at 0800, Routine 0210 (Given - Provider: Daisy Mike RN)0940 (Given - Provider: Yumiko Cochran RN) pantoprazole (PROTONIX) injection 40 mg 40 mg, Intravenous, DAILY, First dose on Thu09/11/17 at 1615, Until Discontinued 0900 (Not Given - Provider: Yumiko Cochran RN - Reason: Patient/family refused) 09 (Due) 0953 (Given - Provider: Asif Grove RN) sodium chloride 0.9 % flush 5 mL 5 mL, Intravenous, 2 TIMES DAILY, First dose on Thu07/28/17 at 2100, Until Discontinued, Routine 09 (Due - Provider: Freda Ching, NYA)2100 (Given - Provider: Pam Valenzuela RN) 09 (Due - Provider: Freda hCing, NYA)2100 (Given - Provider: Emely Nagy RN) 0954 (Given - Provider: Asif Grove RN) [...] Routine 1515 (Given - Provider: Valery Hoover RN)2116 (Given - Provider: Emely Nagy, NYA) 0415 (Given - Provider: Emely Nagy, NYA)1010 (Given - Provider: Asif Grove, NYA)1824 (Given - Provider: Asif Grove, NYA) cyclobenzaprine (FLEXERIL) tablet 10 mg 10 mg, Oral, 3 TIMES DAILY PRN, Starting on Thu09/13/17 at 0950, Until Thu09/15/17 at 2040, Muscle spasms, Routine 1029 (Given - Provider: Yumiko Cochran RN)1835 (Given - Provider: Yumiko Cochran RN) 0256 (Given - Provider: Pam Valenzuela, RN)1516 (Given - Provider: Valery Hoover, NYA) ibuprofen (ADVIL;MOTRIN) tablet 600 mg 600 mg, Oral, EVERY 6 HOURS PRN, Starting on Thu09/13/17 at 1320, Until Thu09/15/17 at 2040, Pain, Administer orally with milk or food to minimize GI irritation. Maximum dose of 3200 mg from all sources in 24 hours, Routine 211 (Given - Provider: Emely Nagy, RN) 0415 (Given - Provider: Emely Nagy RN)1010 (Given - Provider: Asif Grove, NYA)1824 (Given - Provider: Asif Grove, NYA) ondansetron (ZOFRAN) injection 4 mg 4 mg, Intravenous, EVERY 8 HOURS PRN, Starting on 08/07/17 at 1016, Until Thu09/15/17 at 2040, Nausea, [...] Yumiko Cochran RN)1615 (Given - Provider: Yumiko Cochran, NYA)2110 (Given - Provider: Pam Valenzuela, NYA) 0119 (Given - Provider: Pam Valenzuela, RN)1011 (Given - Provider: Valery Hoover, NYA)1050 (Given [...] Routine documented in this encounter Care Teams Lighthouse Keeper Relationship Specialty Start Date End Date None None PCP - General 05/29/17 09/02/21 documented as of this encounter
--- OUTSIDE RECORDS SUMMARY | 2024-08-27 00:55 | XMS_ITS | Encounter Summary ---
Author Organization [facility] [place] [address] Care Team Providers Care Embroiderer Hand Name Role Phone None Primary Care Provider Unavailabl e Encounter Details Date Type Department Care Team ([facility] Contact Info) Description 05/29/2017 9:30 AM EDT Initial Obstetrics and Gynecology at [facility] [place] [address] Jayshree Whatley, RN GA: 19w0d Social History [...] trimester documented in this encounter Care Teams Embroiderer Hand Relationship Specialty Start Date End Date None None PCP - General 05/29/17 09/02/21 documented as of this encounter
--- OUTSIDE RECORDS SUMMARY | 2024-08-27 00:55 | XMS_ITS | Clinical Summary ---
Author Organization [facility] Address [address] [place] [address] Care Team Providers Care Blower Mechanic Name Role Phone Unknown, Provider MD Primary Care Provider Unava ilable Social History [...] - 19+ 3-dose series) 03/16 COVID-19 Vaccine (2023- season) 2024 Care Teams Blower Mechanic Relationship Specialty Start Date End Date Unknown, Provider, PCP - General 05/06/12
--- OUTSIDE RECORDS SUMMARY | 2024-08-27 00:55 | XMS_ITS | Encounter Summary ---
Author Organization [facility] [place] [address] Care Team Providers Care Water Conservation Specialist Name Role Phone None Primary Care Provider Unavailabl e Encounter Details Date Type Department Care Team ([facility] st Contact Info) Description 06/16/2017 12:00 PM EDT Office Visit Pediatric Cardiology at [facility] [place] [address] Ike Thomas MD [address] [place] [address] [place] [address] Pre-existing diabetes mellitus during in second trimester [...] After delivery: No visits with a pediatric genetic counselor are needed unless your road tester identifies any concerns after . Thanks, Ike Thomas MD Pediatric and Cardiology documented in this encounter Progress Notes * Ike Thomas MD - 06/16/2017 12:00 PM EDT Images from the original note were not included. Patient Providers Pam Lake ( ) : 1990 (27 y.o. female) [address] [place] [address] PCP: None OB: E Yeny Martines Payor: [place] / Plan[place] / Product Type: *No Product type* / CARDIOLOGY CLINIC Reason for Visit/Indication for Evaluation: diabetes mellitus Dear Dr. Martines, I had the pleasure of seeing Pam at our [place] site today (06/16/2017) for a echocardiogram and consultation. I was asked for advice regarding the chief complaint listed above. I have reviewed the request and the records sent with it. She was accompanied. Pam Lake is a 27 y.o. old female who is currently at 21w2d gestation based on an estimated due date of 10/25/17. She conceived naturally. She plans to deliver at [facility]. Pam has a history of gestational diabetes, diagnosed at 7 weeks, and therefore presumably pre-existing. Her HgA1c does not appear to have been checked. Aside from the diabetes, the has been complicated by placenta previa. MEDICATIONS: Current Outpatient Prescriptions: ??? vitamin with ezkyvhxz-Xl-Rfyu-FA Tablet, Take 1 tablet by mouth daily., [...] Not working. Denies smoking and drinking. Son Blyane (8) and daughter Jermaine (5). Father of [...] (including a moderate size foramen ovale with nmame-ds-fvyr flow, ductus arteriosus with non-restrictive msydt-ia-tjkf flow, and ductus venosus). ?? No significant [...] If there is poor glycemic control. Current [place] [employer] guidelines recommend screening of HgA1c [...] should be dire cted to any pediatric genetic counselor in our offices. Independent of procedural time, 10 of 10 minutes were spent with the patient in counseling to discuss normal cardiac anatomy and physiology, review of today's echocardiogram results and review of those findings which can and cannot be prenatally detected as described above. It was a pleasure to see Pam today in our office at [facility]. Thank you for the opportunity to participate [...] Primary documented in this encounter Care Teams Water Conservation Specialist Relationship Specialty Start Date End Date None None PCP - General 05/29/17 09/02/21 documented as of this encounter
--- OUTSIDE RECORDS SUMMARY | 2024-08-27 00:55 | XMS_ITS | Encounter Summary ---
Author Organization [facility] [place] [address] Care Team Providers Care Franchise Field Consultant Name Role Phone None Primary Care Provider Unavailabl e Reason for Visit * Reason Onset Date Comments Questions 07/06/2017 Encounter Details Date Type Department Care Team (Late st Contact Info) Description 07/06/2017 Telephone Obstetrics and Gynecology at [facility] [place] [phone] Swapna Crawford RN Questions Social History Tobacco [...] 2:38 PM EST ----- Patient spoke to occupational safety and health manager doc last night, had lots of cramping was told to take a bath. Cramps have continues and now she is feeling a strong pressure documented in this encounter Plan of Treatment Not on file documented as of this encounter Visit Diagnoses Not on filedocumented in this encounter Care Teams Franchise Field Consultant Relationship Specialty Start Date End Date None None PCP - General 05/29/17 09/02/21 documented as of this encounter
--- OUTSIDE RECORDS SUMMARY | 2024-08-27 00:55 | XMS_ITS | Encounter Summary ---
Author Organization [facility] [place] [address] Care Team Providers Care Computer Operations Supervisor Name Role Phone None Primary Care Provider Unavailabl e Reason for Visit * Reason Comments Routine Visit Encounter Details Date Type Department Care Team (Late st Contact Info) Description 06/16/2017 1:30 PM EDT Routine Obstetrics [place] [address] Crow Martines MD [facility] [address] OBSTETRICS [place] [address] GA: 21w4d Social History Tobacco Use Types [...] status documented in this encounter Care Teams Computer Operations Supervisor Relationship Specialty Start Date End Date None None PCP - General 05/29/17 09/02/21 documented as of this encounter
--- OUTSIDE RECORDS SUMMARY | 2024-08-27 00:55 | XMS_ITS | Encounter Summary ---
Author Organization [facility] [place] [address] Care Team Providers Care Shell Molder Name Role Phone None Primary Care Provider Unavailabl e Encounter Details Date Type Department Care Team (Latest Contact Info) Description 06/16/2017 11:48 AM EDT - 06/16/2017 11:59 PM EDT Hospital Encounter [place] [address] Crow Martines MD [facility] OBSTETRICS [place] [address] Gestational diabetes mellitus (GDM) in second trimester, [...] 20 tablet 3 09/14/2017 10/27/2017 vitamin with zmymaucf-Rn-Gqnr-FA Tablet Take 1 tablet by mouth daily. [...] ?? (Age): 1990(27y) ? Med Rec#: ? [id number] ?Sex: ?F ? [place] [facility] [place]Ht / Wt: ??(cm)/ (kg) ? Pt. Loc: ? Study Date: ?? 06/16/2017 ?Pt. Type: Study Quality: ? Referring: Jane Martines Reading: Ike Thomas I ([id number]) Accountant Manager: Lolita Birmingham Diagnosis: *ICD-10-PCS Gestational diabetes mellitus in , unspecified control (O24.419) BP: ? / SUMMARY: 1. A echocardiogram was performed at 21wk4d gestation based on estimated due date 10/23/2017, for indication of presumed pre-gestational diabetes. Fair quality images were obtained. ??The fetus is in breech position. 2. Normal heart rate (150 ??bpm). Normal mechanical WY interval (124 ms). No arrhythmia detected. 3. [...] a patent foramen ovale (PFO). ?There is cqfhy-ws-omhy shunting across the patent foramen ovale with [...] is a patent ductus arteriosus. ?There is ylbvn-ee-nibj shunting across the patent ductus arteriosus with [...] 06/16/2017 13:41:41 Images reviewed and interpretation verified [facility] Procedure Note Ike Thomas MD - 06/16/2017 Procedure: Pediatric Echocardiogram Patient: ROBERT CUADRA(Age): 1990(27y) Med Rec#: [id number] Sex: F [place] Loc[place] [facility] Ht / Wt: (cm)/ (kg) Pt. Loc: Study Date: 06/16/2017 Pt. Type: Study Quality: Referring: Jane Martines Reading: Ike Thomas I ([id number]) Accountant Manager: Lolita Birmingham Diagnosis: *ICD-10-PCS Gestational diabetes mellitus in , unspecified control (O24.419) BP: / SUMMARY: 1. A echocardiogram was performed at 21wk4d gestation based on estimated due date 10/23/2017, for indication of presumed pre-gestational diabetes. Fair quality images were obtained. The fetus is in breech position. 2. Normal heart rate (150 bpm). Normal mechanical WY interval (124 ms). No arrhythmia detected. 3. [...] a patent foramen ovale (PFO). There is pecrv-ah-khoi shunting across the patent foramen ovale with [...] is a patent ductus arteriosus. There is vfcqh-ol-jumi shunting across the patent ductus arteriosus with [...] 06/16/2017 13:41:41 Images reviewed and interpretation verified [facility] E Yeny Martines MD ECHO ORDERABLES documented in this encounter Visit Diagnoses Diagnosis Gestational diabetes mellitus (GDM) in second trimester, gestational diabetes method of control unspecified documented in this encounter Care Teams Shell Molder Relationship Specialty Start Date End Date None None PCP - General 05/29/17 09/02/21 documented as of this encounter
--- OUTSIDE RECORDS SUMMARY | 2024-08-27 00:55 | XMS_ITS | Encounter Summary ---
Author Organization [facility] Address [facility] [place] [address] Care Team Providers Care Recycling Director Name Role Phone Daly Souza MD Primary Care Provider [phone] Encounter Details Date Type Department Care Team (Late st Contact Info) Description 04/17/2017 Orders Only Obstetrics [place] [address] Crow Martines MD [facility] [address] OBSTETRICS [place] [address] Gestational diabetes mellitus (GDM) in second trimester, [...] ?? (Age): 1990(27y) ? Med Rec#: ? [id number] ?Sex: ?F ? [place] [facility]Ht / Wt: ??(cm)/ (kg) ? Pt. Loc: ? Study Date: ?? 06/16/2017 ?Pt. Type: Study Quality: ? Referring: Jane Martines Reading: Ike Thomas I ([id number]) Loop Sewer: Lolita Birmingham Diagnosis: *ICD-10-PCS Gestational diabetes mellitus in , unspecified control (O24.419) BP: ? / SUMMARY: 1. A echocardiogram was performed at 21wk4d gestation based on estimated due date 10/23/2017, for indication of presumed pre-gestational diabetes. Fair quality images were obtained. ??The fetus is in breech position. 2. Normal heart rate (150 ??bpm). Normal mechanical CA interval (124 ms). No arrhythmia detected. 3. [...] a patent foramen ovale (PFO). ?There is aprgy-yx-mppq shunting across the patent foramen ovale with [...] is a patent ductus arteriosus. ?There is mrgbh-wx-vikn shunting across the patent ductus arteriosus with [...] 06/16/2017 13:41:41 Images reviewed and interpretation verified [facility] Cardiac Ultrasound [facility] Procedure Note Ike Thomsa MD - 06/16/2017 Procedure: Pediatric Echocardiogram Patient: ROBERT CUADRA(Age): 1990(27y) Med Rec#: [id number] Sex: F [place] [facility] Ht / Wt: (cm)/ (kg) Pt. Loc: Study Date: 06/16/2017 Pt. Type: Study Quality: Referring: Jane Martines Reading: Ike Thomas I ([id number]) Loop Sewer: Lolita Birmingham Diagnosis: *ICD-10-PCS Gestational diabetes mellitus in , unspecified control (O24.419) BP: / SUMMARY: 1. A echocardiogram was performed at 21wk4d gestation based on estimated due date 10/23/2017, for indication of presumed pre-gestational diabetes. Fair quality images were obtained. The fetus is in breech position. 2. Normal heart rate (150 bpm). Normal mechanical CA interval (124 ms). No arrhythmia detected. 3. [...] a patent foramen ovale (PFO). There is gfhkr-dz-iuuh shunting across the patent foramen ovale with [...] is a patent ductus arteriosus. There is szfbz-kz-hivc shunting across the patent ductus arteriosus with [...] 06/16/2017 13:41:41 Images reviewed and interpretation verified [facility] Ultrasound [facility] E Yeny Martines MD [...] 01:53 pm) PATIENT INFO: ID #: ? [id number] ?: ??[birth year] (27 yrs) Name: ? PAM Lopez ?Visit Date: 05/29/2017 10:27 am ? ROBERT PERFORMED BY: Performed By: ? Ruth Ann [place] RDMS Attending: ?Conrad TAY, E ??Yeny Referred By: ?MONIQUE ORR MD Location: ? [place] SERVICE(S) PROVIDED: ??[facility] - Detailed Morphology - [id number] ? 27407 ??UOBTV - Viability - Cervical Length -Transvaginal - ?? 11282 ??[id number] INDICATIONS: ??19 weeks gestation of ?Z3A.19 ??INSULIN [...] Arch: ? Visualized SVC: ? Visualized Cardiac Cameron: ?Visualized Diaphragm: ? Visualized 3 Vessel View: [...] 05/29/2017 01:53 pm) PATIENT INFO: ID #: [id number] : [birth year] (27 yrs) Name: PAM Lopez Visit Date: 05/29/2017 10:27 am ROBERT PERFORMED BY: Performed By: Ruth Ann [place] RDMS Attending: Crow Martines MD Referred By: MONIQUE ORR MD Location: [place] SERVICE(S) PROVIDED: [facility] - Detailed Morphology - [id number] UOBTV - Viability - Cervical Length -Transvaginal - 26447 [id number] INDICATIONS: 19 weeks gestation of Z3A.19 INSULIN [...] Visualized Ductal Arch: Visualized SVC: Visualized Cardiac Cameron: Visualized Diaphragm: Visualized 3 Vessel View: Visualized [...] unspecified documented in this encounter Care Teams Recycling Director Relationship Specialty Start Date End Date Daly Souza MD [facility] [address] [facility] [place] [address] PCP - General 07/16/10 05/28/17 documented as of this encounter
--- OUTSIDE RECORDS SUMMARY | 2024-08-27 00:55 | XMS_ITS | Encounter Summary ---
Author Organization [facility] Address [facility] [place] [address] Care Team Providers Care Wildlife Ecologist Name Role Phone None Primary Care Provider Unavailabl e Encounter Details Date Type Department Care Team (Latest Contact Info) Description 07/09/2017 9:39 AM EST - 07/09/2017 11:59 PM EST Hospital En[place] [id number] Crow Martines MD [facility] DR OBST[place] [address] Insulin controlled gestational diabetes mellitus (GDM) in [...] 20 tablet 3 09/14/2017 10/27/2017 vitamin with ptbrpvea-Rf-Lopw-FA Tablet Take 1 tablet by mouth daily. [...] 11:19 ?am) PATIENT INFO: ID #: ? [id number] ?: ??[birth year] (27 yrs) Name: ? PAM Lopez ?Visit Date: 07/09/2017 10:00 am ? ROBERT PERFORMED BY: Performed By: ? Ruth Ann [place] RDMS Attending: ?Sandoval TAY, Lolita Garcia Referred By: ?Crow MARTINES Location: ? [place] SERVICE(S) PROVIDED: ??UOBFOL - Efw - Growth - Hernandez - [id number] ? [id number] ??UOBTV - Viability - Cervical Length -Transvaginal - ?? 45858 ??[id number] INDICATIONS: ??24 weeks gestation of ?Z3A.24 ??placenta [...] 07/09/2017 11:19 am) PATIENT INFO: ID #: [id number] : [birth year] (27 yrs) Name: PAM Lopez Visit Date: 07/09/2017 10:00 am ROBERT PERFORMED BY: Performed By: Ruth Ann [place] RDMS Attending: Lolita Nick MD Referred By: Crow LAIRDHIZA Location: [place] SERVICE(S) PROVIDED: UOBFOL - Efw - Growth - Hernandez - [id number] UOBTV - Viability - Cervical Length -Transvaginal - 34541 [id number] INDICATIONS: 24 weeks gestation of Z3A.24 placenta [...] status documented in this encounter Care Teams Wildlife Ecologist Relationship Specialty Start Date End Date None None PCP - General 05/29/17 09/02/21 documented as of this encounter
--- OUTSIDE RECORDS SUMMARY | 2024-08-27 00:56 | XMS_ITS | Encounter Summary ---
Author Organization [facility] Address [address] [place] [address] Care Team Providers Care Thermostat Machine Tender Name Role Phone Unknown, Provider Primary Care Provider Unava ilable Encounter Details Date Type Department Care Team (Late st Contact Info) Description 05/03/2020 Lab Requisition [facility] Pathology & Laboratory Medicine - [facility] [address] [place] [address] Kylie Cruz, CHIEF EXECUTIVE [address] [facility] [place] [address] Encounter for other general examination [...] Imaging System with Manual Evaluation 05/11/2020 13:35 T [facility] Specimen Adequacy Satisfactory for Evaluation - transformation zone component present 05/11/2020 13:35 EDT [facility] General Categorization Negative for intraepithelial lesion or malignancy 05/11/2020 13:35 EDT [facility] Descriptive Diagnosis Reactive cellular changes associated with inflammation present (includes repair). Shift in tamiko present suggestive of bacterial vaginosis. 05/11/2020 13:35 EDT [facility] Attestation By the signature below, the attending physician certifies that they have personally conducted a gross and/or microscopic examination of the described specimens and rendered or confirmed the above diagnosis. 05/11/2020 13:35 EDT [facility] at 1335 Clinical History SEE ORDER COMMENTS 05/11/2020 13:35 EDT [facility] Performing Lab [facility] 05/11/2020 13:35 EDT [facility] Scanned Images 05/11/2020 13:35 T [facility] Papanicolaou smear specimen (specimen) CERVIX UTERI STRUCTURE / Unknown 05/02/2020 11:15 EDT 05/03/2020 15:56 EDT us Kylie Cruz CHIEF EXECUTIVE PATHOLOGY ORDERABLES Brenda l Result [facility] [address] [place] [address] documented in this encounter Visit Diagnoses Diagnosis Encounter for other general examination documented in this encounter Care Teams Thermostat Machine Tender Relationship Specialty Start Date End Date Unknown, ProviderMD PCP - General 05/06/12 documented as of this encounter
--- OUTSIDE RECORDS SUMMARY | 2024-08-27 00:56 | XMS_ITS | Encounter Summary ---
Author Organization [facility] Address [address] [place] [address] Care Team Providers Care Wheel Tuner Name Role Phone Unknown, Provider Primary Care Provider Simeon blankenship Encounter Details Date Type Department Care Team (Late st Contact Info) Description 04/21/2021 Lab Requisition [facility] Pathology & Laboratory Medicine - [facility] [address] [place] [address] Outr Resulting Lab, Provider Social History Tobacco [...] gonorrhoeae Result Negative Negative 04/22/2021 15:12 EDT [facility] Chlamydia trachomatis Result Negative Negative 04/22/2021 15:12 EDT [facility] Swab ENTIRE WALL OF CERVIX / Unknown 04/20/2021 16:00 EDT 04/21/2021 17:35 EDT us Provider Outr Resulting Lab MICROBIOLOGY - GENER AL ORDERABLES Final Result [facility] [address] [place] [address] documented in this encounter Visit Diagnoses Not on filedocumented in this encounter Care Teams Wheel Tuner Relationship Specialty Start Date End Date Unknown, Provider, PCP - General 05/06/12 documented as of this encounter
--- OUTSIDE RECORDS SUMMARY | 2024-08-27 00:56 | XMS_ITS | Encounter Summary ---
Author Organization [facility] Address [address] [place] [address] Care Team Providers Care Retrimmer Name Role Phone Unknown, Provider Primary Care Provider Simeon blankenship Encounter Details Date Type Department Care Team (Late st Contact Info) Description 04/23/2022 Lab Requisition [facility] Pathology & Laboratory Medicine - [address] [address] Outr Resulting Lab, Provider Social History Tobacco [...] 97 - 169 ng/dL 04/23/2022 19:40 EDT [facility] Blood VENOUS BLOOD / Unknown 04/23/2022 9:56 EDT 04/23/2022 17:15 EDT us Provider Outr Resulting Lab CHEMISTRY & BLOOD GA S ORDERABLES Final Result [facility] [address] [place] [address] * HOMOCYSTEINE (04/23/2022 9:56 EDT) Homocysteine 7.9 5.0 - 13.9 umol/L 04/25/2022 7:53 EDT [facility] Blood VENOUS BLOOD / Unknown 04/23/2022 9:56 EDT 04/23/2022 17:16 EDT Narrative [facility] - 04/25/2022 7:53 EDT Reference range may not apply to non-fasting samples. ??It is not recommended that EDTA plasma and serum from the same patient be used interchangeably. ??Serum concentrations have been observed to be up to 10% higher than EDTA plasma. Reference range may not apply to serum results. us Provider Outr Resulting Lab CHEMISTRY & BLOOD GA S ORDERABLES Final Result [facility] [address] [place] [address] documented in this encounter Visit Diagnoses Not on filedocumented in this encounter Care Teams Retrimmer Relationship Specialty Start Date End Date Unknown, Provider, PCP - General 05/06/12 documented as of this encounter
--- OUTSIDE RECORDS SUMMARY | 2024-08-27 00:56 | XMS_ITS | Encounter Summary ---
Author Organization [facility] Address [address] [place] [address] Care Team Providers Care Accordion Repairer Name Role Phone Unknown, Provider Primary Care Provider Simeon ilable Encounter Details Date Type Department Care Team (Late st Contact Info) Description 08/31/2022 Lab Requisition [facility] Pathology & Laboratory Medicine - [facility] [address] [place] [address] Outr Resulting Lab, Provider Social History Tobacco [...] 1, PCR Negative Negative 09/01/2022 11:31 EST [facility] Herpes Simplex Virus Molecular Detection 2, PCR Negative Negative 09/01/2022 11:31 EST [facility] Swab NASAL / Unknown 08/29/2022 2 2:50 EST 08/31/2022 18:09 EST us Provider Outr Resulting Lab MICROBIOLOGY - GENER AL ORDERABLES Final Result [facility] [address] [place] [address] documented in this encounter Visit Diagnoses Not on filedocumented in this encounter Care Teams Accordion Repairer Relationship Specialty Start Date End Date Unknown, Provider, PCP - General 05/06/12 documented as of this encounter
--- OUTSIDE RECORDS SUMMARY | 2024-08-27 00:56 | XMS_ITS | Encounter Summary ---
Author Organization [facility] Address [address] [place] [address] Care Team Providers Care Co Teacher Name Role Phone Unknown, Provider Primary Care Provider Unava ilable Encounter Details Date Type Department Care Team (Late st Contact Info) Description 04/21/2021 Lab Requisition [facility] Pathology & Laboratory Medicine - [facility] [address] [place] [address] Outr Resulting Lab, Provider Social History Tobacco [...] on filedocumented in this encounter Care Teams Co Teacher Relationship Specialty Start Date End Date Unknown, Provider, PCP - General 05/06/12 documented as of this encounter
--- OUTSIDE RECORDS SUMMARY | 2024-08-27 00:56 | XMS_ITS | Encounter Summary ---
Author Organization [facility] Address [address] [place] [address] Care Team Providers Care Clerk Analyst Name Role Phone Unavailable Primary Care Provider Unavailabl e Encounter Details Date Type Department Care Team (Late st Contact Info) Description 02/08/2010 Results Only [facility] Laboratory Services - [facility] [address] [place], [place] [address] Ruth Ann Montero, [facility] [address] [place] [address] Social History Tobacco Use Types [...] ? PAM JONES ? Accession #: ? [id number] ? : ? 1990 (Age: 19) ??F ?Collect Date: ? 02/08/2010 ? Location: ? [facility] ? Receive Date: ? 02/11/2010 ? Provider: ?RUTH ANN MARSHA VOYAGE MANAGEMENT SYSTEM OPERATOR ? Copy to: ? Specimen/Source: ?Pap Test, [...] 14:51 ? End of Report ? [facility] 02/08/2010 02/11/2010 us Ruth Ann Montero VOYAGE MANAGEMENT SYSTEM OPERATOR PATHOLOGY ORDERABLES Final R esult [facility] [address] [place] [address] documented in this encounter Visit Diagnoses Not on filedocumented in this encounter
--- OUTSIDE RECORDS SUMMARY | 2024-08-27 00:56 | XMS_ITS | Encounter Summary ---
Author Organization [facility] Address [address] [place] [address] Care Team Providers Care Cut Off Operator Scorer Name Role Phone Unavailable Primary Care Provider Unavailabl e Encounter Details Date Type Department Care Team (Late st Contact Info) Description 01/21/2011 Results Only [facility] [phone] Li Pastor, SENIOR REACTOR OPERATOR [address] [address] Social History Tobacco Use Types Packs/Day Years [...] ? PAM JONES ? Accession #: ? [id number] ? : ? 1990 (Age: 20) ??F ?Collect Date: ? 01/21/2011 ? Location: ? [facility] ? Receive Date: ? 01/23/2011 ? Provider: ?LI J SACHIN SENIOR REACTOR OPERATOR ? Copy to: ? Specimen/Source: ?Pap [...] Report ? [facility] 01/21/2011 01/23/2011 us Li Pastor APRN PATHOLOGY ORDERABLES Final Re sult [facility] [address] [place] [address] documented in this encounter Visit Diagnoses Not on filedocumented in this encounter
--- OUTSIDE RECORDS SUMMARY | 2024-08-27 00:56 | XMS_ITS | Encounter Summary ---
Author Organization [facility] Address [address] [place] [address] Care Team Providers Care Anesthesiology Technologist Name Role Phone Unknown, Provider Primary Care Provider Unava ilable Encounter Details Date Type Department Care Team (Late st Contact Info) Description 04/21/2021 Lab Requisition [facility] Pathology & Laboratory Medicine - [facility] [address] [place] [address] Outr Resulting Lab, Provider Social History Tobacco [...] 4th Generation Negative Negative 04/22/2021 10:26 EDT [facility] Comment: If acute HIV-1 infection is suspected in a high risk ??patient, submit plasma specimen for HIV-1 RNA quantitation test. Fourth Generation assay performed on the Siemens Tiempo Listoaur. Blood VENOUS BLOOD / Unknown 04/20/2021 15:35 EDT 04/21/2021 16:08 EDT us Provider Outr Resulting Lab IMMUNOLOGY AND SEROL OGY ORDERABLES Final Result Performing Organization Address [facility] Co de Phone Number [facility] [address] [place] [address] * ACUTE HEPATITIS PROFILE (04/20/2021 15:35 EDT) Hep B Surface Ag Negative Negative 04/22/2021 11:08 EDT [facility] Hep C Antibody Negative Negative 04/22/2021 11:08 EDT [facility] Hepatitis A Antibody, IgM Negative Negative 04/22/2021 11:08 EDT [facility] Comment:The results of this assay can be falsely lowered due to the consumption of Biotin. Hepatitis B Core Ab, Total Negative Negative 04/22/2021 11:08 EDT [facility] Blood VENOUS BLOOD / Unknown 04/20/2021 15:35 EDT 04/21/2021 16:08 EDT us Provider Outr Resulting Lab CHEMISTRY & BLOOD GA S ORDERABLES Final Result Performing Organization Address [facility] Co de Phone Number [facility] [address] [place] [address] documented in this encounter Visit Diagnoses Not on filedocumented in this encounter Care Teams Anesthesiology Technologist Relationship Specialty Start Date End Date Unknown, Provider, PCP - General 05/06/12 documented as of this encounter
--- OUTSIDE RECORDS SUMMARY | 2024-08-27 00:56 | XMS_ITS | Encounter Summary ---
Author Organization [facility] Address [address] [place] [address] Care Team Providers Care Signal Inspector Name Role Phone Unknown, Provider Primary Care Provider Unava ilable Encounter Details Date Type Department Care Team (Late st Contact Info) Description 09/06/2015 Results Only [facility]- [facility] [phone] Monique Blunt MD [address] [place] [address] Social History Tobacco Use Types Packs/Day Years [...] when reading/interpreti ng unformatted reports. Name: ? JONESPAM ? Accession #: ? [id number] : ? 1990 (Age: 25) ??F ?Collect [...] electronically signed by: ? FLAQUITA DARBY MD [facility] ? Report Date: ??09/14/2015 13:52 End of Report [facility] 09/06/2015 09/10/2015 us Monique Blunt MD PATHOLOGY ORDERABLES Final Resu lt [facility] [address] [place] [address] documented in this encounter Visit Diagnoses Not on filedocumented in this encounter Care Teams Signal Inspector Relationship Specialty Start Date End Date Unknown, Provider, PCP - General 05/06/12 documented as of this encounter
--- OUTSIDE RECORDS SUMMARY | 2024-08-27 00:56 | XMS_ITS | Encounter Summary ---
Author Organization [facility] Address [address] [place] [address] Care Team Providers Care Coin Machine Collector Name Role Phone Unknown, Provider Primary Care Provider Unava ilable Encounter Details Date Type Department Care Team (Late st Contact Info) Description 10/07/2021 Lab Requisition [facility] Pathology & Laboratory Medicine - [facility] [address] [place] [address] Outr Resulting Lab, Provider Social History Tobacco [...] 152.4 See Note mIU/mL 10/08/2021 10:06 EST [facility] Comment: Reference Range for Hep B Surface Ab, Quant: Positive: >= 10.0 mIU/mL Negative: ??< 10.0 mIU/mL Patient is presumed to be immune to infection with Hepatitis B Virus. Hep B Surface Ab, Qualitative Positive See Note 10/08/2021 10:06 EST [facility] Comment: Reference Range for Hep B Surface Ab, Qual: Unvaccinated: ??Negative Vaccinated: ??Positive Blood VENOUS BLOOD / Unknown 10/07/2021 10:15 EST 10/07/2021 22:13 EST us Provider Outr Resulting Lab CHEMISTRY & BLOOD GA S ORDERABLES Final Result Performing Organization Address [facility] Co de Phone Number [facility] [address] [place] [address] * MEASLES IGG AB (10/07/2021 10:15 EST) Measles IgG Ab Positive See Note 10/08/2021 9:36 EST [facility] Comment:Presence of detectab le measles virus IgG antibodies. Blood VENOUS BLOOD / Unknown 10/07/2021 10:15 EST 10/07/2021 22:13 EST us Provider Outr Resulting Lab IMMUNOLOGY AND SEROL OGY ORDERABLES Final Result Performing Organization Address [facility] Co de Phone Number [facility] [address] [place] [address] * MUMPS ANTIBODY IGG (10/07/2021 10:15 EST) Mumps Antibody IgG Negative See Note 10/08/2021 9:39 EST [facility] Comment:Absence of detectabl e mumps virus IgG antibodies. A negative result generally indicates that the patient is susceptible to mumps. Blood VENOUS BLOOD / Unknown 10/07/2021 10:15 EST 10/07/2021 22:13 EST us Provider Outr Resulting Lab IMMUNOLOGY AND SEROL OGY ORDERABLES Final Result Performing Organization Address [facility] Co de Phone Number [facility] [address] [place] [address] * RUBELLA IGG ANTIBODY (10/07/2021 10:15 EST) Rubella IgG Ab Positive See Note 10/08/2021 9:40 EST [facility] Comment:Positive for IgG ant ibodies to Rubella virus. Blood VENOUS BLOOD / Unknown 10/07/2021 10:15 EST 10/07/2021 22:13 EST us Provider Outr Resulting Lab CHEMISTRY & BLOOD GA S ORDERABLES Final Result Performing Organization Address City/State/[facility] Co de Phone Number [facility] [address] [place] [address] documented in this encounter Visit Diagnoses Not on filedocumented in this encounter Care Teams Coin Machine Collector Relationship Specialty Start Date End Date Unknown, Provider, PCP - General 05/06/12 documented as of this encounter
--- OUTSIDE RECORDS SUMMARY | 2024-08-27 00:56 | XMS_ITS | Encounter Summary ---
Author Organization [facility] Address [address] [place] [address] Care Team Providers Care High School Science Tutor Name Role Phone Unknown, Provider Primary Care Provider Unavijay ilable Encounter Details Date Type Department Care Team (Late st Contact Info) Description 08/31/2022 Lab Requisition [facility] Pathology & Laboratory Medicine - [address] [address] Outr Resulting Lab, Provider Social History Tobacco [...] gonorrhoeae Result Negative Negative 09/01/2022 13:[address] [facility] Chlamydia trachomatis Result Negative Negative 09/01/2022 13:[address] [facility] Swab ENTIRE VAGINA / Unknown 08/29/2022 22:50 EST 08/31/2022 18:01 EST us Provider Outr Resulting Lab MICROBIOLOGY - GENER AL ORDERABLES Final Result [facility] [address] [place] [address] documented in this encounter Visit Diagnoses Not on filedocumented in this encounter Care Teams High School Science Tutor Relationship Specialty Start Date End Date Unknown, Provider, PCP - General 05/06/12 documented as of this encounter
--- OUTSIDE RECORDS SUMMARY | 2024-08-27 00:56 | XMS_ITS | Encounter Summary ---
Author Organization [facility] Address [address] [place] [address] Care Team Providers Care Care Specialist Name Role Phone Unknown, Provider Primary Care Provider Unava ilable Encounter Details Date Type Department Care Team (Late st Contact Info) Description 04/21/2021 Lab Requisition [facility] Pathology & Laboratory Medicine - [address] [address] Outr Resulting Lab, Provider Social History Tobacco [...] Syphilis Serology Negative Negative 04/22/2021 10:33 EDT [facility] Blood VENOUS BLOOD / Unknown 04/20/2021 15:35 EDT 04/21/2021 16:08 EDT us Provider Outr Resulting Lab IMMUNOLOGY AND SEROL OGY ORDERABLES Final Result [facility] [address] [place] [address] documented in this encounter Visit Diagnoses Not on filedocumented in this encounter Care Teams Care Specialist Relationship Specialty Start Date End Date Unknown, Provider, PCP - General 05/06/12 documented as of this encounter
[2024-08-27] MEDS: Cephalexin 500 MG CAP, 4 CAPS/BTL PO (00:59)
[2024-08-27] MEDS: Sulfameth/Trimeth DS, 2 TABS/BTL 1 TAB PO (00:59)
--- NOTE | 2024-08-27 01:00 | ED.GENADUL_ITS ---
Discharge Plan Disposition Patient Disposition: Home Condition: Stable Discharge Details Clinical Impression: Cellulitis of right lower extremity, Foreign body of right lower extremity with infection, Metal foreign body in lower extremity Primary Care Provider: Zoe Mullins V ED Provider: Joy Nielson Home Meds and New Rx's Prescriptions: New cephalexin 500 mg capsule 500 mg PO QID 7 Days Qty: 28 0RF sulfamethoxazole-trimethoprim [Bactrim DS] 800-160 mg tablet 1 tab PO BID 7 Days Qty: 14 0RF No Action gabapentin 300 mg capsule 300 mg PO BID ibuprofen 600 mg tablet 600 mg PO TID Qty: 30 0RF acetaminophen [Tylenol Extra Strength] 500 mg tablet 500 mg PO Q6H PRNQty: 30 0RF prazosin 1 mg capsule 1 mg PO .QHS lamotrigine 25 mg tablet 25 mg PO DAILY Patient Comments: TAKE ONE TABLET BY MOUTH TWICE A DAY valacyclovir [Valtrex] 1 gram tablet 1,000 mg PO BID Qty: 14 0RF (DME) nebulizer and compressor Device See Rx Instructions .Route Qty: 1 0RF Rx Instructions: As directed ipratropium-albuterol 0.5 mg-3 mg(2.5 mg base)/3 mL solution for nebulization 3 ml inhalation QID PRN (Reason: shortness of breath or wheezing) Qty: 90 0RF Rx Instructions: 1 inhalation up to 4 times daily as needed for shortness of breath or wheezing metformin 500 mg Tablet 500 mg PO HS albuterol sulfate 2.5 mg/0.5 mL solution for nebulization 2.5 mg IH Q4H PRN (Reason: bronchospasm) Qty: 30 0RF albuterol sulfate 90 mcg/actuation HFA aerosol inhaler 2 puff IH Q6H PRN (Reason: shortness of breath or wheezing) Qty: 6.7 0RF Discharge Instructions Additional Instructions: You were seen in the emergency department today for evaluation of a skin infection and a retained metallic foreign body that was removed. We have sent you home with 2 antibiotics, which you need to take until they are gone even if you start to feel better. You need to follow-up with your primary care provider in the next few days to discuss this visit and any symptoms that change, worsen, or persist. It is safe for you to use Tylenol and ibuprofen as needed for your pain. If you notice a fever, worsening redness or swelling, or any other symptoms that cause you concern you can return to care for reevaluation. Thank you for allowing us to be part of your care. HPI General Mode of arrival: ambulatory . Date/Time Provider Initiated Documentation: 08/27/24 00:30 . Limitations to Documentation: no limitations . Information obtained by: patient and old records reviewed . HPI Narrative: HPI: This is a 34-year-old female patient presenting for evaluation of lower extremity cellulitis and a metallic foreign body. The patient reports that 2 days ago she was cleaning up at her home, states that people in her home use intravenous drugs and she thinks that she crawled over a needle. Today she noted that her leg was becoming red and painful. She states it is quite swollen, but has not tried any medications for management of pain. States that she has not had any fevers or chills, has been eating and drinking and has otherwise been in her normal state of health. She has not taken any recent antibiotics, states that she does not have a known history of MRSA. Exam: Gen: Awake and alert, appears uncomfortable HEENT: Non-icteric sclera Neck: Supple Lungs: No apparent respiratory distress, normal respiratory effort. CV: Appears well perfused, heart with regular rhythm, slightly tachycardic rate Abdomen: Non-distended MSK: Moves 4 extremities without apparent limitation in ROM. The patient's right lower extremity has an approximately 5 cm area of redness and induration without fluctuance. She has 2 small 2 mm openings in her skin without purulent drainage, and adjacent to one of them is a metallic object embedded just under the skin surface. There is no streaking, crepitus Skin: Visualized skin without rashes, cyanosis except as noted above. Neuro: Normal Gait, no obvious focal deficits or facial asymmetry. Speaks in full, clear sentences. Psych: Appropriate for situation. MDM: This is a 34-year-old female patient presenting for evaluation of a foreign body and skin infection. My differential includes but is not limited to cellulitis, foreign body, no evidence for abscess on physical examination or ultrasound. I do not see any deeper foreign bodies on my ultrasonography. The patient's lack of systemic symptoms such as fever or chills, nausea or vomiting, hypotension or fever make me less concern for systemic abnormality such as bacteremia or sepsis. She is mildly tachycardic though the patient endorses significant pain, which I suspect is contributing to this finding. ED Course: The patient was provided with a dose of Tylenol and ibuprofen, and the metallic foreign body was removed as noted below with an 11 blade scalpel and serrated tweezers. A very small amount of lidocaine with epinephrine was utilized for analgesia, and the area was dressed with bacitracin and gauze after this procedure. Ultrasound was concerning for cellulitis. First dose of antibiotics given here in the emergency department and a prescription for same sent to her pharmacy. At this time, the patient has had a full medical evaluation and is safe for discharge to home. They are hemodynamically stable, ambulatory, and tolerating PO. They are understanding of the follow-up plan and return precautions. They left our facility without incident. Joy Nielson MD Related Data Home Medications ?Medication ?Instructions ?Recorded ?Confirmed metformin 500 mg tablet 500 mg PO HS 07/09/19 08/29/22 albuterol sulfate 2.5 mg/0.5 mL 2.5 mg (0.5 mL) inhalation Q4H PRN 08/09/19 03/03/24 solution for nebulization bronchospasm #30 ea albuterol sulfate 90 mcg/actuation 2 puff inhalation Q6H PRN 10/03/19 03/03/24 aerosol inhaler shortness of breath or wheezing #6.7 grams gabapentin 300 mg capsule 300 mg PO BID 11/22/20 08/29/22 acetaminophen 500 mg tablet 500 mg PO Q6H PRN #30 tabs 01/30/21 03/03/24 (Tylenol Extra Strength) ibuprofen 600 mg tablet 600 mg PO TID #30 tabs 01/30/21 03/03/24 lamotrigine 25 mg tablet 25 mg PO DAILY 07/15/22 08/29/22 prazosin 1 mg capsule 1 mg PO .QHS 07/15/22 08/29/22 valacyclovir 1 gram tablet 1,000 mg PO BID #14 tabs 08/29/22 (Valtrex) ipratropium 0.5 mg-albuterol 3 mg 3 ml inhalation QID PRN shortness 11/22/22 (2.5 mg base)/3 mL nebulization of breath or wheezing #90 mL soln nebulizer and compressor #1 ea 11/22/22 cephalexin 500 mg capsule 500 mg PO QID 7 days #28 caps 08/27/24 sulfamethoxazole 800 1 tab PO BID 7 days #14 tabs 08/27/24 mg-trimethoprim 160 mg tablet (Bactrim DS) Previous Rx's ?Medication ?Instructions ?Recorded albuterol sulfate 2.5 mg/0.5 mL 2.5 mg (0.5 mL) inhalation Q4H PRN 08/09/19 solution for nebulization bronchospasm #30 ea albuterol sulfate 90 mcg/actuation 2 puff inhalation Q6H PRN 10/03/19 aerosol inhaler shortness of breath or wheezing #6.7 grams acetaminophen 500 mg tablet 500 mg PO Q6H PRN #30 tabs 01/30/21 (Tylenol Extra Strength) ibuprofen 600 mg tablet 600 mg PO TID #30 tabs 01/30/21 valacyclovir 1 gram tablet 1,000 mg PO BID #14 tabs 08/29/22 (Valtrex) ipratropium 0.5 mg-albuterol 3 mg 3 ml inhalation QID PRN shortness 11/22/22 (2.5 mg base)/3 mL nebulization of breath or wheezing #90 mL soln nebulizer and compressor #1 ea 11/22/22 cephalexin 500 mg capsule 500 mg PO QID 7 days #28 caps 08/27/24 sulfamethoxazole 800 1 tab PO BID 7 days #14 tabs 08/27/24 mg-trimethoprim 160 mg tablet (Bactrim DS) Allergies Allergy/AdvReac Type Severity Reaction Status Date / Time No Known Allergies Allergy Unverified 03/03/24 18:31 General Stated Complaint: Cellulitis JORGE: 3 Course Vital Signs Vital signs: Vital Signs Temperature 36.4 C 08/27/24 00:30 Pulse 125 H 08/27/24 00:30 Respiratory Rate 19 08/27/24 00:30 Blood Pressure 158/116 H 08/27/24 00:30 Pulse Oximetry 98 08/27/24 00:30 Temperature 36.4 C 08/27/24 00:30 Temperature Source Oral 08/27/24 00:30 Pulse 125 H 08/27/24 00:30 Respiratory Rate 19 08/27/24 00:30 Blood Pressure 158/116 H 08/27/24 00:30 Blood Pressure Position Supine 08/27/24 00:30 Pulse Oximetry 98 08/27/24 00:30 Oxygen Delivery Method Room Air 08/27/24 00:30 Oxygen Flow Rate 0 08/27/24 00:30 Pain Level 7 08/27/24 00:36 Procedures Foreign Body Removal Time Out Performed: no Site: right and lower extremity Description of foreign body: needle Sedation/Analgesia: other (2% Lido w/ Epi) Technique: manual removal, removal with forceps and incision made to facilitate removal Confirmed by:: direct visualization Complications: pain Post-procedure exam: awake, alert, normal BP and normal HR Neurovascular: no change from pre-procedure Medical Decision Making Quality:SDOH Health Related Social Needs: No Data to Display PFSH All Active Problems (Updated 08/27/24 @ 01:03 by Joy Nielson MD) Metal foreign body in lower extremity (Acute) Foreign body of right lower extremity with infection (Acute) Cellulitis of right lower extremity (Acute) Diabetes (Chronic) Possible exposure to STD (Acute) COVID-19 (Acute) Right shoulder strain (Acute) Bronchitis (Acute) Cough (Acute) Closed head injury (Acute) Post-concussion headache (Acute) Contusion of face, scalp and neck (Acute) Bilateral carpal tunnel syndrome (Acute) s/p bilateral ECTR 01/30/2021. Medical History Diabetes Anxiety Depression ADHD Asthma BMI 45.0-49.9, adult Surgical History History of dilation and curettage section 2010 Abdominal hysterectomy (09/11/17) Supracervical hysterectomy with unilateral salpingectomy. Ovaries conserved. 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 Social History Smoking/Tobacco Use Status: Current every day Tobacco Type: cigarettes Smoking risk assessment performed?: Yes Alcohol Intake: current Alcohol Intake frequency: a few times a week Drug use: Daily Substance use type: marijuana Household members: children Number of Children: 3 Pets and animals: Yes Pets and animals: dog(s) What type of physical activity do you participate in: walking Seatbelt use: always Do you feel safe at home: Yes Do you feel safe in your relationship?: Yes POCUS Exam (ED) Limited Soft Tissue Exam DATE OF EXAM: 08/27/24 TIME OF EXAM: 01:01 PROVIDER THAT PERFORMED THE STUDY: Joy Nielson IS THIS A REPEAT EXAM DURING THIS ENCOUNTER: No LOCATION OF EXAM: Lower extremity/right REASON FOR EXAM: History of foreign body, Pain, Redness and Swelling VISUALIZED STRUCTURES: Fascia, Skin and Subcutaneous tissue PERTINENT FINDINGS/IMPRESSION: Cellulitis Right lower extremity . Exam Complete
[2024-08-27 01:12] VITALS: PULSE 110; RESP 18; O2SAT 99
== END 2024-08-27 01:14 | disposition home or self-care (01) ==
PROVIDERS: Emergency Provider Emergency Medicine; PCP Family Medicine
DX: S80.851A Superficial foreign body, right lower leg, initial encounter (principal); L03.115 Cellulitis of right lower limb; E11.9 Type 2 diabetes mellitus without complications; F17.210 Nicotine dependence, cigarettes, uncomplicated; Z79.84 Long term (current) use of oral hypoglycemic drugs; X58.XXXA Exposure to other specified factors, initial encounter; Z18.10 Retained metal fragments, unspecified
CPT/HCPCS: 10120; 76882; 99282; 99283; J2004

== ENCOUNTER 2024-09-29 17:10 | Emergency (ER) | payer MEDICAID, SELFPAY ==
[2024-09-29 17:32] VITALS: BP 137/100; PULSE 109; RESP 22; TEMP 36.9; O2SAT 94
[2024-09-29] MEDS: Fluorescein STRIPS 100/BOX 1 MG OP (17:48)
[2024-09-29] MEDS: Tetracaine 0.5% 4 ML BTL OP ×2 (17:48→17:52)
[2024-09-29 17:55] VITALS: BP 137/100; PULSE 109; RESP 22; TEMP 36.9; O2SAT 94
--- OUTSIDE RECORDS SUMMARY | 2024-09-29 18:05 | XMS_ITS | Encounter Summary ---
Author Organization [facility] [place] [address] Care Team Providers Care Supervisor Inspection And Testing Name Role Phone None Primary Care Provider Unavailabl e Encounter Details Date Type Department Care Team ([facility] Contact Info) Description 03/29/2021 2:00 PM EDT Notes Only General Surgery at [facility] [place] [address] Social History Tobacco Use Types Packs/Day Years [...] 03/29/2021 2:00 PM EDT Patient attended the [facility] Intro to Bariatric Surgery for [facility] on 03/29/2021 documented in this encounter Plan of Treatment Not on file documented as of this encounter Visit Diagnoses Not on filedocumented in this encounter Care Teams Supervisor Inspection And Testing Relationship Specialty Start Date End Date None None PCP - General 05/29/17 09/02/21 documented as of this encounter
--- OUTSIDE RECORDS SUMMARY | 2024-09-29 18:05 | XMS_ITS | Clinical Summary ---
Author Organization [facility] [place] [address] Care Team Providers Care Fund Accounting Manager Name Role Phone Sima Sanchez APRN Primary Care Provider [phone] Allergies Active Allergy Reactions Criticality Noted Date Comments Red Blood Cells Other (See Comments) High 09/11/2017 Antibodies-Difficult to Crossmatch DO NOT REMOVE Please contact the Blood Bank at [phone] for questions. Medications No known medications Active [...] capacity to make decision: Yes Care Teams Fund Accounting Manager Relationship Specialty Start Date End Date Sima Sanchez, MEDICAL ARTIST PCP - General Family Medicine 09/03/21
--- OUTSIDE RECORDS SUMMARY | 2024-09-29 18:05 | XMS_ITS | Continuity of Care Document ---
Author Organization [facility] Address [address] [place] [id number] Encounter [facility] NBR [id number] Date(s): 08/28/24 - 08/29/[address] [address] [place] Encounter Diagnosis DM (diabetes mellitus), type 2, uncontrolled, with hyperosmolarity(Discharge Diagnosis) - 08/28/24 Non-compliance(Discharge Diagnosis) - 08/29/24 Substance abuse(Discharge Diagnosis) - 08/29/24 Spider bite(Discharge Diagnosis) - 08/29/24 Cellulitis of right leg without foot(Discharge Diagnosis) - 08/28/24 Sepsis(Discharge Diagnosis) - 08/28/24 Cellulitis of right lower limb(Final) - Type 2 diabetes mellitus with hyperosmolarity without nonketotic hyperglycemic- hyperosmolar coma ([facility])(Final) - Hypo-osmolality and hyponatremia(Final) - Body mass index [BMI] 40.0-44.9, adult(Final) - Morbid (severe) obesity due to excess calories(Final) - Nicotine dependence, other tobacco product, uncomplicated(Final) - Type 2 diabetes mellitus with hyperglycemia(Final) - Methicillin susceptible Staphylococcus aureus infection as the cause of diseases classified elsewhere(Final) - Opioid abuse, uncomplicated(Final) - Cocaine abuse, uncomplicated(Final) - Underdosing of insulin and oral hypoglycemic [antidiabetic] drugs, initial encounter(Final) - Toxic effect of venom of other spider, accidental (unintentional), initial encounter(Final) - halfway (current) use of oral hypoglycemic drugs(Final) - Patient's other noncompliance with medication regimen for other reason(Final) - Discharge Disposition: Home or Self Care Attending Physician: Heron Carver MD Admitting Physician: Cat Sullivan, WIRE BORDER ASSEMBLER Encounter Type: Inpatient Allergies, Adverse Reactions, Alerts No Known Medication Allergies Assessment and Plan Extracted from: Title:Discharge Note Author:Heron Carver MD Date:08/29/24 Discharge Plan 1.??Non-compliance??Z91.199 This is a major issue and I worry very much for the patient's safety. ??I will do my best to assure her safety??with??some effort??to lower her blood sugars??but I cannot be too aggressive as hypoglycemia would be a concern. ??And??an effort??in conversation with the patient about risk and benefits and scheduling follow-up for her in 4 days. 2.??Cellulitis of right leg without foot??L03.115 No fever, no??Tachycardia, no leukocytosis. ??Imaging negative as above.?? Course of antibiotics with PCP follow-up. 3.??Sepsis??A41.9 She is not septic. ??She has no fever, no tachycardia, no leukocytosis. 4.??DM (diabetes mellitus), type 2, uncontrolled, with hyperosmolarity??E11.00 Highly concerning, hemoglobin A1c over 9, blood sugars have been over??300 at some point. ??She has not had??signs of DKA or acidosis. ??She is only willing to take glipizide. ??Although with those high blood sugars 5 mg may be a low starting point I cannot start any higher for concerns of hypoglycemia??but I hope even at this dose there will be some??potential reduction of the dangerous sequelae she could have with her noncompliance and not interested in such.?? I have weighed the risk and benefits of such. 5.??Spider bite??T63.301A Patient states that she had a??bite from a house that was infested with??which she says are common brown or possible yellow [place] spiders. ??This was 2 weeks ago??and she says the area has healed well. ??Without infection.?? She is on antibiotics this although I am concerned she will not be compliant. ??The areas do not look neither infected nor necrotic and look like they are??healing but they should be monitored for??those said signs??in the outpatient setting. 6.??Substance abuse??F19.10 This is quite concerning. ??I spoke to the patient about such. ??She is precontemplative. Orders: glipiZIDE 5 mg oral tablet, extended release, 5 mg = 1 tab, Oral, Daily, # 30 tab, 0 Refill(s), Pharmacy: [facility], 150, cm, 08/28/24 12:47:00 EST, Height, 93.4, kg, 08/28/24 4:04:00 EST, Weight Dosing Discharge Patient, 08/28/24 19:02:00 EST, Home Independently, The patient left AMA Discharge Patient, 08/29/24 11:29:00 EST Follow Up With When Contact Information Follow up with primary care provider 09/02/2024 01:00 PM EST Additional Instructions: [facility] with Dimitrios Mak??09/02/24 at 1:30pm Extracted from: Title:H & P Author:Cat Sullivan APRN Date: 1.??Sepsis??A41.9 Not severe??sepsis; Leukocytosis??13.9, normal??lactic, hemodynamically??stable, no end organ??dysfunction. Meets criteria with tachycardia and + source.?? LR 1L bolus ? 2.??Cellulitis of right leg without foot??L03.115 MRSA negative, though literature notes??this to be a??high negative predictor, I will cover her with Vancomycin with her risk factors of uncontrolled diabetes, questionable IV drug use, and self, at home removal of foreign bodies. + MSSA.?? Cefazolin 2gm IV every 8 hrs Vancomycin, pharmacy to dose initial and subsequent doses CRP 146 with leukocytosis, without fever. Blood cultures x2 CT angio right leg U/S right leg Check CK ? 3.??DM (diabetes mellitus), type 2, uncontrolled, with hyperosmolarity??E11.00 Consistent carb diet. SSI. Check A1c. Not on any antidiabetic agents. Diabetic education. Query starting on Lisinopril for renal protection. I will defer this to attending or O/P follow up.? 4.??Hyperglycemia??R73.9 No evidence of DKA. Normal anion gap. Normal bicarb. 1L bolus-then reassess BG, and cover per SSI. Started with low dose given insulin naivete? Full code ? DVT prophy - Lovenox ? Orders: acetaminophen, 1,000 mg = 100 mL, IV Piggyback, Injection, every 6 hr, PRN pain, Administer over: 15 minutes, First Dose: 08/28/24 5:44:00 EST, Routine, 400 mL/hr ceFAZolin, 1 g = 50 mL, IV Piggyback, Injection, every 8 hr, Antibiotic Indication Cellulitis, First Dose: 08/28/24 8:00:00 EST, Routine docusate-senna 50 mg-8.6 mg oral tablet, 1 tab, Oral, Tab, BID, PRN constipation, First Dose: 08/28/24 5:44:00 EST, Routine Lovenox, 40 mg = 0.4 mL, Subcutaneous, Injection, Daily, First Dose: 08/28/24 9:00:00 EST, Routine glucagon, 1 mg = 1 EA, Subcutaneous, Injection, As Directed, First Dose: 08/28/24 6:21:00 EST, Physician Stop, Routine Dextrose 50% injection, 25 g = 50 mL, IV Push, Injection, As Directed, First Dose: 08/28/24 6:21:00 EST, Physician Stop, Routine insulin aspart Sliding Scale - Low Dose, Insulin Aspart Sliding Scale See Comments, Subcutaneous, Injection, AC, First Dose: 08/28/24 7:30:00 EST, Routine lactobacillus acidophilus oral capsule, 1 cap, Oral, Cap, BID, First Dose: 08/28/24 9:00:00 EST, Routine, Acidophilus melatonin 3 mg oral tablet, 6 mg = 2 tab, Oral, Tab, every night at bedtime, PRN insomnia, First Dose: 08/28/24 5:44:00 EST, Routine ondansetron, 4 mg = 2 mL, IV Push, Vial, every 6 hr, PRN nausea/vomiting, First Dose: 08/28/24 5:44:00 EST, Routine, zofran MiraLax, 17 g = 1 packets, Oral, Powder-Recon, Daily, PRN constipation, First Dose: 08/28/24 5:44:00 EST, Routine vancomycin, 2,250 mg = 450 mL, IV Piggyback, Injection, Once, Antibiotic Indication Cellulitis, First Dose: 08/28/24 8:00:00 EST, Stop Date: 08/28/24 8:00:00 EST, Physician Stop, Routine vancomycin, 1,500 mg = 300 mL, IV Piggyback, Injection, Once, Antibiotic Indication Cellulitis, First Dose: 08/28/24 8:00:00 EST, Stop Date: 08/28/24 8:00:00 EST, Physician Stop, Routine Admission Home Meds Securement, 08/28/24 5:44:00 EST, Once, Stop date 08/28/24 5:44:00 EST, Check with Patient for home meds brought in and Secure in pharmacy or send home with their appropriate person. Basic Metabolic Panel, Blood, Routine, 08/28/24 5:45:00 EST, every morning, for 3 days, Lab Collect Blood Culture, Blood, Arm L, Expedite collect, RT - Routine, 08/28/24 5:44:00 EST, Once, Lab Collect, Print Label, [id number] Blood Culture, Blood, Arm R, Expedite collect, RT - Routine, 08/28/24 5:44:00 EST, Once, Lab Collect, Print Label, [id number] Blood Glucose Monitoring POC RE, 08/28/24 6:21:00 EST, AC & bedtime CBC w/ Diff, Blood, Routine, 08/28/24 5:45:00 EST, every morning, for 3 days, Lab Collect Creatine Kinase, Blood, Routine, 08/28/24 5:44:00 EST, Once, Lab Collect CT Angio Lower Extremity Right, 08/28/24 5:44:00 EST, Routine, Reason: erythema, swelling, pain, Transport Mode: Wheelchair Diet Order, 08/28/24 6:18:00 EST, Consistent Carbohydrates Drug Screen Urine, Urine, Routine Collect, 08/28/24 7:36:00 EST, Once, Nurse collect, Print Label Hgb A1c, Blood, Routine, 08/28/24 6:18:00 EST, Once, Lab Collect Patient Condition, 08/28/24 5:44:00 EST, Condition Good/ Stable PSO Admit to Inpatient, MedSurg, Inpatient, Heron Carver MD, 08/28/24 5:35:00 EST, 08/28/24 5:35:00 EST, 08/28/24 5:35:00 EST, Less than 96 hours Resuscitation Status, 08/28/24 5:44:00 EST, Full Code Up ad Angie, 08/28/24 5:44:00 EST, Constant Order, at nurse's discretion, 08/28/24 5:44:00 EST Urinalysis with Micro if Indicated and Culture if Indicated, Urine, Routine Collect, 08/28/24 7:36:00 EST, Once, Nurse collect, Print Label US Lower Ext Venous Duplex Right, 08/29/24 5:44:00 EST, Routine, Reason: erythema, swelling, pain, Transport Mode: Wheelchair, 08/28/24 7:01:24 EST, 08/28/24 7:01:24 EST Vital Signs, 08/28/24 5:44:00 EST, every 4 hr Extracted from: Title:ED Provider Note Author:Molina Lombardi MD Miky e:08/28/24 1.??Cellulitis of right leg without foot??L03.115 2.??DM (diabetes mellitus), type 2, uncontrolled, with hyperosmolarity??E11.00 Orders: Staph Nasal Complete (GeneXpert), Nares, Stat Collect, 08/28/24 4:37:00 EST, Once, Nurse collect, Print Label XR Tibia/Fibula Right, 08/28/24 4:42:00 EST, Stat, Reason: Foreign body, Transport Mode: Ambulatory Functional Status 08/29/24 Living Environment No Living Environmen t Information Available Lives In Apartment Lives With Significant other 08/29/24 ADLs Independent Assistive Device None Breakfast Percent 100 08/28/24 Recent Travel History No recent travel Immunizations Given and Recorded Vaccine Date Status Refusal Reason tetanus/diphth/pertuss (Tdap) adult/adol 08/29/24 Given Medications Albuterol (Eqv-ProAir HFA) 90 mcg/inh inhalation aerosol 2 inh, Inhale, every 6 hr, PRN as needed for shortness of breath or wheezing, 0 Refill(s) Start Date: 08/28/24 Status: Ordered Repeat number: 1 cephalexin 500 mg oral capsule 500 mg = 1 cap, Oral, QID, X 7 days, # 28 cap, 0 Refill(s), 09/03/24 7:59:00 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 Start Date: 08/28/24 Stop Date: 09/03/24 Status: Ordered Quantity: 28.0 Unit: cap Repeat number: 1 glipiZIDE 5 mg oral tablet, extended release 5 mg = 1 tab, Oral, Daily, # 30 tab, 0 Refill(s), Pharmacy: [facility], 150, cm, 08/28/24 12:47:00 EST, Height, 93.4, kg, 08/28/24 4:04:00 EST, Weight Dosing Start Date: 08/29/24 Status: Ordered Quantity: 30.0 Unit: tab Repeat number: 1 ipratropium-albuterol 0.5 mg-2.5 mg/3 mL inhalation solution 3 mL, Nebulized Inhalation, QID, PRN as needed for shortness of breath or wheezing, # 60 EA, 0 Refill(s) Start Date: 08/28/24 Status: Ordered Quantity: 60.0 Unit: EA Repeat number: 1 sulfamethoxazole-trimethoprim 800 mg-160 mg oral tablet 1 tab, Oral, Daily, # 30 tab, 0 Refill(s) Start Date: 08/28/24 Status: Ordered Quantity: 30.0 Unit: tab Repeat number: 1 Mental Status 08/29/24 Eye Opening Response [place] Spontaneous ly Best Verbal Response Soo Oriented Best Motor Response [place] Obeys comman ds [place] Coma Score 15 Problem List Condition Confirmation Course Effective Dates Status H ealth Status Informant DM (diabetes mellitus), type 2, uncontrolled, with hyperosmolarity Confirmed Active Wound infection - complicated Confirmed Active Results Laboratory List Name Date Basic Metabolic Panel (BMP) 08/29/24 CBC w/ Diff 08/29/24 Glucose POCT 08/29/24 Automated Diff 08/29/24 Glucose POCT 08/29/24 Glucose POCT 08/28/24 Drug Screen Urine 08/28/24 Urinalysis with Micro if Indicated and C ulture if Indicated 08/28/24 Creatine Kinase (CK) 08/28/24 Hgb A1c (Hemoglobin A1C) 08/28/24 Staph Nasal Complete (GeneXpert) (MRSA/M SSA Nasal (GeneXpert)) 08/28/24 Automated Diff 08/28/24 C-Reactive Protein 08/28/24 CBC w/ Diff 08/28/24 Comprehensive Metabolic Panel (CMP) Lactic Acid 08/28/24 Sedimentation Rate (ESR) 08/28/24 Most recent to oldest [Reference Range]: 1 2 3 Estimated Creatinine Clearance 147.48 mL/min 1 (08/29/24 12:28 PM) 147.48 mL/min 2 (08/28/24 12:48 PM) 147.48 mL/min 3 (08/28/24 4:57 AM) WBC [4.8-10.8 K/mcL] 8.4 K/mcL (08/29/24 8:10 AM) 13.8 K/mcL *HI* (08/28/24 4:10 AM) RBC [4.20-5.40 Million/mcL] 4.67 Million /mcL (08/29/24 8:10 AM) 4.90 Million/mcL (08/28/24 4:10 AM) Neutro Auto [42.2-75.2 %] 64.9 % (08/29/24 8:10 AM) 78.3 % *HI* (08/28/24 4:10 AM) Lymph Auto [20.5-51.1 %] 23.5 % (08/29/24 8:10 AM) 13.2 % *LOW* (08/28/24 4:10 AM) Carter Auto [1.7-9.3 %] 10.1 % *HI* (08/29/24 8:10 AM) 8.1 % (08/28/24 4:10 AM) Basophil Auto [0.0-0.8 %] 0.5 % (08/29/24 8:10 AM) 0.2 % (08/28/24 4:10 AM) BUN [7-25 mg/dL] 8 mg/dL (08/29/24 8:10 AM) 7 mg/dL (08/28/24 4:10 AM) Glucose POC 206 *NA* (08/29/24 7:40 AM) 269 *NA* (08/29/24 1:25 AM) 321 *NA* (08/28/24 9:15 PM) U Amph Scrn [Negative] Negative 4 (08/28/24 1:46 PM) UA Color [Yellow] Yellow (08/28/24 1:46 PM) Glucose Level [70-109 mg/dL] 310 mg/dL *HI* (08/29/24 8:10 AM) 349 mg/dL *HI* (08/28/24 4:10 AM) Potassium Level [3.5-5.1 mmol/L] 3.8 mmol/L (08/29/24 8:10 AM) 3.6 mmol/L (08/28/24 4:10 AM) Baso Absolute [0.0-0.2 K/mcL] 0.0 K/mcL (08/29/24 8:10 AM) 0.0 K/mcL (08/28/24 4:10 AM) U Benzodia Scrn [Negative] Negative (08/28/24 1:46 PM) MCV [81.0-99.0 fL] 85.4 fL (08/29/24 8:10 AM) 84.7 fL (08/28/24 4:10 AM) UA Urobilinogen [0.2] 2.0 *ABN* (08/28/24 1:46 PM) UA Bili [Negative] Negative (08/28/24 1:46 PM) CRP [<=10.0 mg/L] 149.2 mg/L *HI* (08/28/24 4:10 AM) UA Ketones [Negative] Negative (08/28/24 1:46 PM) AST [13-39 IntlUnit/L] 11 IntlUnit/L *LOW* (08/28/24 4:10 AM) ALT [7-52 IntlUnit/L] 32 IntlUnit/L (08/28/24 4:10 AM) MCHC [32.0-37.0 g/dL] 34.1 g/dL (08/29/24 8:10 AM) 34.2 g/dL (08/28/24 4:10 AM) Osmolality [275-295 mOsm/kg] 282 mOsm/kg (08/29/24 8:10 AM) 276 mOsm/kg (08/28/24 4:10 AM) Sodium Level [136-145 mmol/L] 136 mmol/L (08/29/24 8:10 AM) 132 mmol/L *LOW* (08/28/24 4:10 AM) UA Leuk Est [Negative] Negative (08/28/24 1:46 PM) Lymph Absolute [1.2-3.4 K/mcL] 2.0 K/mcL (08/29/24 8:10 AM) 1.8 K/mcL (08/28/24 4:10 AM) UA Nitrite [Negative] Negative (08/28/24 1:46 PM) UA Glucose [Negative] >=1000 *ABN* (08/28/24 1:46 PM) Hct [37.0-47.0 %] 39.9 % (08/29/24 8:10 AM) 41.5 % (08/28/24 4:10 AM) U Cocaine Scrn [Negative] Positive *ABN* (08/28/24 1:46 PM) Calcium Level [8.6-10.3 mg/dL] 8.6 mg/dL (08/29/24 8:10 AM) 9.1 mg/dL (08/28/24 4:10 AM) Carter Absolute [0.1-0.6 K/mcL] 0.8 K/mcL *HI* (08/29/24 8:10 AM) 1.1 K/mcL *HI* (08/28/24 4:10 AM) Albumin Level [3.5-5.7 g/dL] 3.8 g/dL (08/28/24 4:10 AM) Protein Total [6.4-8.9 g/dL] 7.5 g/dL (08/28/24 4:10 AM) UA Protein [Negative] Negative (08/28/24 1:46 PM) MCH [27.0-31.0 pg] 29.1 pg (08/29/24 8:10 AM) 29.0 pg (08/28/24 4:10 AM) Neutro Absolute [1.4-6.5 K/mcL] 5.4 K/mcL (08/29/24 8:10 AM) 10.8 K/mcL *HI* (08/28/24 4:10 AM) Bilirubin Total [0.3-1.0 mg/dL] 0.6 mg/dL (08/28/24 4:10 AM) Hgb [12.0-16.0 g/dL] 13.6 g/dL (08/29/24 8:10 AM) 14.2 g/dL (08/28/24 4:10 AM) Alk Phos [34-104 IntlUnit/L] 67 IntlUnit /L (08/28/24 4:10 AM) UA Blood [Negative] Negative (08/28/24 1:46 PM) MPV [7.4-10.4 fL] 6.4 fL *LOW* (08/29/24 8:10 AM) 6.6 fL *LOW* (08/28/24 4:10 AM) UA Spec Grav [1.001-1.030] 1.010 (08/28/24 1:46 PM) Platelets [130-400 K/mcL] 350 K/mcL (08/29/24 8:10 AM) 360 K/mcL (08/28/24 4:10 AM) CO2 [21-31 mmol/L] 28 mmol/L (08/29/24 8:10 AM) 26 mmol/L (08/28/24 4:10 AM) Eos Absolute [0.0-0.2 K/mcL] 0.1 K/mcL (08/29/24 8:10 AM) 0.0 K/mcL (08/28/24 4:10 AM) U Christina Scrn [Negative] Negative (08/28/24 1:46 PM) Lactic Acid Lvl [0.5-2.2 mmol/L] 1.5 mmol/L (08/28/24 4:10 AM) UA pH [5.00-9.00] 6.00 (08/28/24 1:46 PM) U Opiate Scrn [Negative] Negative (08/28/24 1:46 PM) UA Appear [Clear] Clear (08/28/24 1:46 PM) Chloride Level [98-107 mmol/L] 103 mmol/L (08/29/24 8:10 AM) 97 mmol/L *LOW* (08/28/24 4:10 AM) U Oxy Scrn [Negative] Negative (08/28/24 1:46 PM) U PCP Scrn [Negative] Negative (08/28/24 1:46 PM) RDW-CV [11.5-14.5 %] 13.2 % (08/29/24 8:10 AM) 13.2 % (08/28/24 4:10 AM) A/G Ratio [1.0-2.5 g/dL] 1.0 g/dL (08/28/24 4:10 AM) BUN/Creat Ratio [8.0-20.0] 10.0 (08/29/24 8:10 AM) 8.8 (08/28/24 4:10 AM) Globulin [2.3-3.5 g/dL] 3.7 g/dL *HI* (08/28/24 4:10 AM) U THC Scr [Negative] Negative (08/28/24 1:46 PM) U Methadone Scr [Negative] Negative (08/28/24 1:46 PM) MRSA Screen -GeneXpert [Negative] Negative (08/28/24 4:52 AM) Slide Review Not Indicated (08/29/24 8:10 AM) Urine Srce Clean Catch (08/28/24 1:46 PM) U Buprenorph Scr [Negative] Negative (08/28/24 1:46 PM) U mAMP Scr [Negative] Negative (08/28/24 1:46 PM) U TCA Scr [Negative] Negative (08/28/24 1:46 PM) Hgb A1c Percent [4.0-6.0 %] 9.5 % *HI* (08/28/24 7:15 AM) Staphylococcus aureus Screen -GeneXpert [Negative] Positive *ABN* (08/28/24 4:52 AM) Creatinine Level [0.60-1.20 mg/dL] 0.80 mg/dL (08/29/24 8:10 AM) 0.80 mg/dL (08/28/24 4:10 AM) Anion Gap [3.0-12.0] 5.0 (08/29/24 8:10 AM) 9.0 (08/28/24 4:10 AM) Eos, Auto [0.00-3.00 %] 1.00 % (08/29/24 8:10 AM) 0.20 % (08/28/24 4:10 AM) eGFR CKD-EPI [>=60 mL/min/1.73 m2] 100 mL/min/1.73 m2 (08/29/24 8:10 AM) 100 mL/min/1.73 m2 (08/28/24 4:10 AM) U Fentanyl Scr [Negative] Positive *ABN* (08/28/24 1:46 PM) CK [30-223 unit/L] 42 unit/L (08/28/24 7:15 AM) ESR, Westergren [0-20 mm/hr] 47 mm/hr *HI* (08/28/24 4:10 AM) 1Result Comment: Calculated using method: Cockroft-Gault (Actual Weight) 2Result Comment: Calculated using method: Cockroft-Gault (Actual Weight) 3Result Comment: Calculated using method: Cockroft-Gault (Actual Weight) 4Interpretive Data: Interpretive Data applies to all urine drug screen testing performed. This test only provides screening test results; all positive results are unconfirmed. A more specific alternate chemical method must be used to obtain a confirmed and analytical result.?? Gas Chromatography/Mass Spectrometry (GC/MS) is the preferred confirmatory method. These test results are to be used for medical treatment only.?? Unconfirmed screening results must not be used for non-medical purposes. PLEASE CONTACT THE LABORATORY IF YOU WISH TO SEND FOR CONFIRMATORY (GC/MS) TESTING BASED UPON SCREENING RESULTS Cutoff Concentrations: AMP ? Amphetamine ? 500 ng/mL BAR? Barbiturates?200 ng/mL BZO ? Benzodiazepines? 150 ng/mL BUP ? Buprenorphine? 10 ng/mL MARTIN? Cocaine? 150 ng/mL MAMP Methamphetamine? 500 ng/mL MTD? Methadone? 200 ng/mL OPI? Opiates? 100 ng/mL OXY ? Oxycodone? 100 ng/mL PCP ? Phencyclidine? 25 ng/mL THC ? Cannabinoids? 50 ng/mL TCA? Tricyclic Antidepressants? 300 ng/mL Fent? Fentanyl? 5 ng/mL Orders for Microbiology Reports Name Date Blood Culture 08/28/24 Blood Culture 08/28/24 Microbiology Reports TEST:Blood Culture STATUS:Order in Progress BODY SITE:Right Arm SOURCE:Blood COLLECTED DATE/TIME:08/28/24 7:15 AM PRELIMINARY REPORT No growth at 2 days. TEST:Blood Culture STATUS:Order in Progress BODY SITE:Left Arm SOURCE:Blood COLLECTED DATE/TIME:08/28/24 4:10 AM PRELIMINARY REPORT No growth at 2 days. Radiology Reports * Exam Date Time Procedure Performing Provider Status 08/29/24 8:52 AM US Lower Ext Venous Duplex Right Annette Read (Verified) Notes: (US Lower Ext Venous Duplex Right) Reason For Exam: erythema, swelling, pain US Lower Ext Venous Duplex Right EXAM DESCRIPTION: US Lower Ext Venous Duplex Right 08/29/2024 INDICATION: ERYTHEMA, SWELLING, PAIN TECHNIQUE: Static images of real-time sonography utilizing B-mode and color Doppler with spectral waveform analysis of the right lower extremity deep venous system was performed. FINDINGS: Right common femoral vein, saphenous junction, femoral vein, popliteal vein as well as visualized posterior tibial and peroneal veins demonstrate normal compressibility, color flow and augmentation with no evidence of DVT. Mildly enlarged lymph node in the right groin region measuring approximately 1.3 cm in short axis dimension. IMPRESSION: No evidence of right lower extremity DVT Mildly enlarged right groin region lymph node. JOB #: [id number] Final Signed by: Scotty Ruiz MD Signed (Electronic Signature): 08/29/2024 9:01 am * Exam Date Time Procedure Performing Provider Status 08/28/24 7:[address] Angio Lower Extremity Right Elba Tom; Auth (Verified) Notes: (CT Angio Lower Extremity Right) Reason For Exam: erythema, swelling, pain CT Angio Lower Extremity Right PROCEDURE INFORMATION: Exam: CTA Right Lower Extremity With Contrast Exam date and time: 08/28/2024 6:45 AM Age: 34 years old Clinical indication: Swelling, leg or foot; Additional info: Erythema, swelling, pain TECHNIQUE: Imaging protocol: Computed tomographic angiography of the right lower extremity with contrast. 3D rendering (Not supervised by radiologist): MIP and/or 3D reconstructed images were created by the technologist. Radiation optimization: All CT scans at this facility use at least one of these dose optimization techniques: automated exposure control; mA and/or kV adjustment per patient size (includes targeted exams where dose is matched to clinical indication); or iterative reconstruction. Contrast material: ISOVUE 370; Contrast volume: 100 ml; Contrast route: INTRAVENOUS (IV); COMPARISON: CR XR LOWER LEG RIGHT 08/28/2024 4:51 AM FINDINGS: Right femoral/popliteal arteries: No occlusion or significant stenosis. Right infrapopliteal arteries: No occlusion or significant stenosis. Appendix: A normal appendix is identified. Bones/joints: No acute fracture. No dislocation. No significant arthropathy at the knee, hip or ankle. Soft tissues: There is a small fat-containing umbilical hernia. There is generalized subcutaneous edema seen in the right lower extremity consistent with cellulitis or venous stasis. No abscess. IMPRESSION: Generalized subcutaneous edema seen in the right lower extremity consistent with cellulitis or venous stasis. No abscess. THIS DOCUMENT HAS BEEN ELECTRONICALLY SIGNED BY AMANDA PARADA MD on 08/28/2024 08:43 AM Final Signed by: Amanda Parada MD Signed (Electronic Signature): 08/28/2024 8:43 am * Exam Date Time Procedure Performing Provider Status 08/28/24 4:59 AM XR Tibia/Fibula Right Carey Kearns ; Auth (Verified) Notes: (XR Tibia/Fibula Right) Reason For Exam: Foreign body XR Tibia/Fibula Right PROCEDURE INFORMATION: Exam: XR Right Tibia and Fibula Exam date and time: 08/28/2024 4:51 AM Age: 34 years old Clinical indication: Other: Foreign body TECHNIQUE: Imaging protocol: Radiologic exam of the right tibia and fibula. Views: 2 views. COMPARISON: No relevant prior studies available. FINDINGS: Bones/joints: Mild arthropathy of the ankle joint. Unremarkable knee joint. No acute fracture or dislocation. No suspicious lytic or blastic bone lesions are seen. Soft tissues: Several calcifications in anterior mid salguero most likely represent phleboliths. There is no evidence of a radio-opaque foreign body. IMPRESSION: No acute findings. THIS DOCUMENT HAS BEEN ELECTRONICALLY SIGNED BY AMANDA PARADA MD on 08/28/2024 08:34 AM Final Signed by: Amanda Parada MD Signed (Electronic Signature): 08/28/2024 8:34 am Vital Signs Most recent to oldest [Reference Range]: 1 2 3 Temperature Oral [35.8-37.3 Deg C] 37.7 Deg C *HI* (08/28/24 7:08 AM) 36.7 Deg C (08/28/24 3:55 AM) Temperature Oral (DegF) [96.4-99.1 Deg F] 99.86 Deg F *HI* (08/28/24 7:08 AM) Temperature Temporal Artery [36-38 Deg C] 37.2 Deg C (08/29/24 7:42 AM) 37.5 Deg C (08/29/24 4:01 AM) 36.1 Deg C (08/29/24 12:27 AM) Temperature Temporal Artery (DegF) [97.3-100 Deg F] 99.32 Deg F (08/28/24 12:35 PM) Peripheral Pulse Rate [60-100 bpm] 71 bpm (08/29/24 7:42 AM) 71 bpm (08/29/24 4:01 AM) 86 bpm (08/29/24 12:27 AM) Heart Rate Monitored [60-100 bpm] 94 bpm (08/28/24 7:08 AM) 103 bpm *HI* (08/28/24 3:55 AM) Respiratory Rate [12-24 br/min] 18 br/min (08/29/24 7:42 AM) 18 br/min (08/29/24 4:01 AM) 18 br/min (08/29/24 12:27 AM) Blood Pressure [90-120/60-80 mmHg] 132/84mmHg *HI* (08/29/24 7:42 AM) 120/86mmHg (08/29/24 4:01 AM) 161/86mmHg *HI* (08/29/24 12:27 AM) Mean Arterial Pressure, Cuff [65-140 mmHg] 96 mmHg (08/28/24 7:08 AM) 95 mmHg (08/28/24 3:55 AM) Weight 93.4 kg (08/28/24 12:47 PM) 93.4 kg (08/28/24 3:55 AM) Weight Dosing 93.400 kg (08/28/24 3:55 AM) Height 150 cm (08/28/24 12:47 PM) 150 cm (08/28/24 3:55 AM) BSA Measured 1.97 m2 (08/28/24 12:47 PM) BSA Estimated 0 m2 (08/28/24 12:47 PM) Body Mass Index 41.51 kg/m2 (08/28/24 12:47 PM) 41.51 kg/m2 (08/28/24 3:55 AM) Social History Social History Type Response Tobacco Current everyday tob acco user Tobacco Use:. Sex Sex Representation Female (finding) Hospital Discharge Instructions Patient Education 08/29/2024 10:34:07 Type 2 Diabetes Mellitus, Self-Care, Adult, Detz-tp-Pkjn Type 2 Diabetes Mellitus, Self-Care, Adult When you have type 2 diabetes (type 2 diabetes mellitus), you must make sure your blood sugar (glucose) stays in a healthy range. You can do this with: ??? Nutrition. ??? Exercise. ??? Lifestyle changes. ??? Medicines or insulin, if needed. ??? Support from your doctors and others. What are the risks? Having type 2 diabetes can raise your risk for other long-term (chronic) health problems. You may get medicines to help prevent these problems. How to stay aware of your blood sugar ??? Check your blood sugar level every day, as often as told. ??? Have your A1C (hemoglobin A1C) level checked two or more times a year. Have it checked more often if told. ??? Your doctor will set personal treatment goals for you. In general, you should have these blood sugar levels: ??? Before meals: 80???130 mg/dL (4.4???7.2 mmol/L). ??? After meals: below 180 mg/dL (10 mmol/L). ??? A1C: less than 7%. How to manage high and low blood sugar Symptoms of high blood sugar High blood sugar is also called hyperglycemia. Know the symptoms of high blood sugar. These may include: ??? More thirst. ??? Hunger. ??? Feeling very tired. ??? Needing to pee (urinate) more often than normal. ??? Seeing things blurry. Symptoms of low blood sugar Low blood sugar is also called hypoglycemia. This is when blood sugar is at or below 70 mg/dL (3.9 mmol/L). Symptoms may include: ??? Hunger. ??? Feeling worried or nervous (anxious). ??? Feeling sweaty and cold to the touch (clammy). ??? Being dizzy or light-headed. ??? Feeling sleepy. ??? A fast heartbeat. ??? Feeling grouchy (irritable). ??? Tingling or loss of feeling (numbness) around your mouth, lips, or tongue. ??? Restless sleep. Diabetes medicines can cause low blood sugar. You are more at risk: ??? While you exercise. ??? After exercise. ??? During sleep. ??? When you are sick. ??? When you skip meals or do not eat for a long time. Treating low blood sugar If you think you have low blood sugar, eat or drink something sugary right away. Keep 15 grams of afast-acting carb (carbohydrate) with you all the time. Make sure your family and friends know how to treat you if you cannot treat yourself. Treating very low blood sugar Severe hypoglycemia is when your blood sugar is at or below 54 mg/dL (3 mmol/L). ??? Severe hypoglycemia is an emergency. Get medical help right away. Call your local emergency services (911 in the [place] ??? Do not wait to see if the symptoms will go away. ??? Do not drive yourself to the hospital. You may need a glucagon shot if you have very low blood sugar and you cannot eat or drink. Have a family member or friend learn how to check your blood sugar and how to give you a glucagon shot. Ask your doctor if you should have a kit for glucagon shots. Follow these instructions at home: Medicines ??? Take prescribed insulin or diabetes medicines as told by your health care provider. ??? Do not run out of insulin or other medicines. Plan ahead. ??? If you use insulin, change the amount you take based on how active you are and what foods you eat. Your doctor will tell you how to do this. ??? Take xljg-ocs-qfqniah and prescription medicines only as told by your doctor. Eating and drinking ??? Eat healthy foods. These include: ??? Low-fat (lean) proteins. ??? Complex carbs, such as whole grains. ??? Fresh fruits and vegetables. ??? Low-fat dairy products. ??? Healthy fats. ??? Meet with a food expert (dietitian) to make an eating plan. ??? Follow instructions from your doctor about what you cannot eat or drink. ??? Drink enough fluid to keep your pee (urine) pale yellow. ??? Keep track of carbs that you eat. Read food labels and learn serving sizes of foods. ??? Follow your sick-day plan when you cannot eat or drink as normal. Make this plan with your doctor so it is ready to use. Activity ??? Exercise as told by your doctor. You may need to: ??? Do stretching and strength exercises two or more times a week. ??? Do 150 minutes or more of exercise each week that makes your heart beat faster and makes you sweat. ??? Spread out your exercise over 3 or more days a week. ??? Do not go more than 2 days in a row without exercise. ??? Talk with your doctor before you start a new exercise. Your doctor may tell you to change: ??? How much insulin or medicines you take. ??? How much food you eat. Lifestyle ??? Do not smoke or use any products that contain nicotine or tobacco. If you need help quitting, ask your doctor. ??? If you drink alcohol and your doctor says that it is safe for you: ??? Limit how much you have to: ??? 0???1 drink a day for women who are not . ??? 0???2 drinks a day for men. ??? Know how much alcohol is in your drink. In the [place] one drink equals one 12 oz bottle of beer (355 mL), one 5 oz glass of wine (148 mL), or one 1?? oz glass of hard liquor (44 mL). ??? Learn to deal with stress. If you need help, ask your doctor. Body care ??? Stay up to date with your shots (immunizations). ??? Have your eyes and feet checked by a doctor as often as told. ??? Check your skin and feet every day. Check for cuts, bruises, redness, blisters, or sores. ??? [place] your teeth and gums two times a day. Floss one or more times a day. ??? Go to the dentist one or more times every 6 months. ??? Stay at a healthy weight. General instructions ??? Share your diabetes care plan with: ??? Your work or school. ??? People you live with. ??? Carry a card or wear jewelry that says you have diabetes. ??? Keep all follow-up visits. Questions to ask your doctor ??? Do I need to meet with a certified expert in diabetes education and care? Where can I find a support group? Where to find more information For help and guidance and more information about diabetes, please go to: ??? [place] [employer] Association: www.diabetes.org ??? [place] [employer] Care and Education Specialists: www.diabeteseducator.org ??? International Diabetes Federation: www.idf.org Summary ??? When you have type 2 diabetes, you must make sure your blood sugar (glucose) stays in a healthyrange. You can do this with nutrition, exercise, medicines and insulin, and support from doctors and others. ??? Check your blood sugar every day, or as often as told. ??? Having diabetes can raise your risk for other long-term health problems. You may get medicines to help prevent these problems. ??? Share your diabetes management plan with people at work, school, and home. ??? Keep all follow-up visits. This information is not intended to replace advice given to you by your health care provider. Make sure you discuss any questions you have with your health care provider. Document Revised: 11/04/2021 Document Reviewed: 11/04/2021 [employer] Patient Education ?? 2022 [employer]. 08/29/2024 10:34:00 Diabetes Mellitus and Skin Care Diabetes Mellitus and Skin Care Diabetes, also called diabetes mellitus, can lead to skin problems. If blood sugar (glucose) is notwell controlled, it can cause problems over time. These problems include: ??? Damage to nerves. This can affect your ability to feel wounds. This means you may not notice small skin injuries that could lead to bigger problems. This can also decrease the amount that you sweat, causing dry skin. ??? Damage to blood vessels. The lack of blood flow can cause skin to break down. It can also slow healing time, which can lead to infections. ??? Areas of skin that become thick or discolored. Common skin conditions There are certain skin conditions that often affect people with diabetes. These include: ??? Dry skin. ??? Thin skin. The skin on the feet may get thinner, break more easily, and heal more slowly than normal. ??? Skin infections from bacteria. These include: ??? Styes. These are infections near the eyelid. ??? Boils. These are bumps filled with pus. ??? Infected hair follicles. ??? Infections of the skin around the nails. ??? Fungal skin infections. These are most common in areas where skin rubs together, such as in thearmpits or under the breasts. Common skin changes Diabetes can also cause the skin to change. You may develop: ??? Dark, velvety markings on your skin. These may appear on your face, neck, armpits, inner thighs, and groin. ??? Red, raised, scar-like tissue that may itch, feel painful, or become a wound. ??? Blisters on your feet, toes, hands, or fingers. ??? Thick, wax-like areas of skin. In most cases, these occur on the hands, forehead, or toes. ??? Brown or red, ring-shaped or mrwh-vwvq-jyixdy patches of skin on the ears or fingers. ??? Pea-shaped, yellow bumps that may be itchy and have a red ring around them. This may affect your arms, feet, buttocks, and the top of your hands. ??? Round, discolored patches of wing skin that do not hurt or itch. These may look like age spots. Supplies needed: ??? Mild soap or gentle skin cleanser. ??? Lotion. How to care for dry, itchy skin Frequent high glucose levels can cause skin to become itchy. Poor blood circulation and skin infections can make dry skin worse. If you have dry, itchy skin: ??? Avoid very hot showers and baths. ??? Use mild soap and gentle skin cleansers. Do not use soap that is perfumed, harsh, or that driesyour skin. Moisturizing soaps may help. ??? Put on moisturizing lotion as soon as you finish bathing. ??? Do not scratch dry skin. Scratching can expose skin to infection. If you have a rash or if your skin is very itchy, contact your health care provider. Skin that is red or covered in a rash may be a sign of an allergic reaction. Very itchy skin may mean that you need help to manage your diabetes better. You may also need treatment for an infection. General tips Most skin problems can be prevented or treated easily if caught early. Talk with your health care provider if you have any concerns. General tips include: ??? Check your skin every day for cuts, bruises, redness, blisters, or sores, especially on your feet. If you cannot see the bottom of your feet, use a mirror or ask someone for help. Tell your health care provider if you have any of these injuries and if they are healing slowly. ??? Keep your skin clean and dry. Do not use hot water. ??? Moisturize your skin to prevent chapping. ??? Keep your blood glucose levels within target range. Follow these instructions at home: ??? Take wbdw-ira-vtgyceh and prescription medicines only as told by your health care provider. This includes all diabetes medicines you are taking. ??? Schedule a foot exam with your health care provider once a year. During the exam, the structureand skin of your feet will be checked for problems. ??? Make sure that your health care provider does a visual foot exam at every visit. ??? If you get a skin injury, such as a cut, blister, or sore, check the area every day for signs of infection. Check for: ??? Redness, swelling, or pain. ??? Fluid or blood. ??? Warmth. ??? Pus or a bad smell. ??? Do not use any products that contain nicotine or tobacco. These products include cigarettes, chewing tobacco, and vaping devices, such as e-cigarettes. If you need help quitting, ask your health care provider. Where to find more information ??? [place] [employer] Association: diabetes.org ? ? Association of Diabetes Care & Education Specialists: diabeteseducator.org Contact a health care provider if: ??? You get a cut or sore, especially on your feet. ??? You have signs of infection after a skin injury. ??? You have itchy skin that turns red or develops a rash. ??? You have discolored areas of skin. ??? You have places on your skin that change. They may thicken or appear shiny. This information is not intended to replace advice given to you by your health care provider. Make sure you discuss any questions you have with your health care provider. Document Revised: 02/11/2023 Document Reviewed: 02/11/2023 [employer] Patient Education ?? 2022 [employer] 08/29/2024 10:33:34 Hyperglycemia, Hbrs-pc-Lwhu Hyperglycemia Hyperglycemia is when the sugar (glucose) level in your blood is too high. High blood sugar can happen to people who have or do not have diabetes. High blood sugar can happen quickly. It can be an emergency. What are the causes? If you have diabetes, high blood sugar may be caused by: ??? Medicines that increase blood sugar or affect your control of diabetes. ??? Getting less physical activity. ??? Overeating. ??? Being sick or injured or having an infection. ??? Having surgery. ??? Stress. ??? Not giving yourself enough insulin (if you are taking it). You may have high blood sugar because you have diabetes that has not been diagnosed yet. If you do not have diabetes, high blood sugar may be caused by: ??? Certain medicines. ??? Stress. ??? A bad illness. ??? An infection. ??? Having surgery. ??? Diseases of the pancreas. What increases the risk? This condition is more likely to develop in people who have risk factors for diabetes, such as: ??? Having a family member with diabetes. ??? Certain conditions in which the body's defense system (immune system) attacks itself. These arecalled autoimmune disorders. ??? Being overweight. ??? Not being active. ??? Having a condition called insulin resistance. ??? Having a history of: ??? Prediabetes. ??? Diabetes when . ??? Polycystic ovarian syndrome (PCOS). What are the signs or symptoms? This condition may not cause symptoms. If you do have symptoms, they may include: ??? Feeling more thirsty than normal. ??? Needing to pee (urinate) more often than normal. ??? Hunger. ??? Feeling very tired. ??? Blurry eyesight (vision). You may get other symptoms as the condition gets worse, such as: ??? Dry mouth. ??? Pain in your belly (abdomen). ??? Not being hungry (loss of appetite). ??? Breath that smells fruity. ??? Weakness. ??? Weight loss that is not planned. ??? A tingling or numb feeling in your hands or feet. ??? A headache. ??? Cuts or bruises that heal slowly. How is this treated? Treatment depends on the cause of your condition. Treatment may include: ??? Taking medicine to control your blood sugar levels. ??? Changing your medicine or dosage if you take insulin or other diabetes medicines. ??? Lifestyle changes. These may include: ??? Exercising more. ??? Eating healthier foods. ??? Losing weight. ??? Treating an illness or infection. ??? Checking your blood sugar more often. ??? Stopping or reducing steroid medicines. If your condition gets very bad, you will need to be treated in the hospital. Follow these instructions at home: General instructions ??? Take yptk-nhu-arzxolu and prescription medicines only as told by your doctor. ??? Do not smoke or use any products that contain nicotine or tobacco. If you need help quitting, ask your doctor. ??? If you drink alcohol: ??? Limit how much you have to: ??? 0???1 drink a day for women who are not . ??? 0???2 drinks a day for men. ??? Know how much alcohol is in a drink. In the [place] one drink equals one 12 oz bottle of beer (355 mL), one 5 oz glass of wine (148 mL), or one 1?? oz glass of hard liquor (44 mL). ??? Manage stress. If you need help with this, ask your doctor. ??? Do exercises as told by your doctor. ??? Keep all follow-up visits. Eating and drinking ??? Stay at a healthy weight. ??? Make sure you drink enough fluid when you: ??? Exercise. ??? Get sick. ??? Are in hot temperatures. ??? Drink enough fluid to keep your pee (urine) pale yellow. If you have diabetes: ??? Know the symptoms of high blood sugar. ??? Follow your diabetes management plan as told by your doctor. Make sure you: ??? Take insulin and medicines as told. ??? Follow your exercise plan. ??? Follow your meal plan. Eat on time. Do not skip meals. ??? Check your blood sugar as often as told. Make sure you check before and after exercise. If you exercise longer or in a different way, check your blood sugar more often. ??? Follow your sick day plan whenever you cannot eat or drink normally. Make this plan ahead of time with your doctor. ??? Share your diabetes management plan with people in your workplace, school, and household. ??? Check your pee for ketones when you are ill and as told by your doctor. ??? Carry a card or wear jewelry that says that you have diabetes. Where to find more information [place] [employer] Association: www.diabetes.org Contact a doctor if: ??? Your blood sugar level is at or above 240 mg/dL (13.3 mmol/L) for 2 days in a row. ??? You have problems keeping your blood sugar in your target range. ??? You have high blood pressure often. ??? You have signs of illness, such as: ??? Feeling like you may vomit (feeling nauseous). ??? Vomiting. ??? A fever. Get help right away if: ??? Your blood sugar monitor reads high even when you are taking insulin. ??? You have trouble breathing. ??? You have a change in how you think, feel, or act (mental status). ??? You feel like you may vomit, and the feeling does not go away. ??? You cannot stop vomiting. These symptoms may be an emergency. Get medical help right away. Call your local emergency services(911 in the [place] ??? Do not wait to see if the symptoms will go away. ??? Do not drive yourself to the hospital. Summary ??? Hyperglycemia is when the sugar (glucose) level in your blood is too high. ??? High blood sugar can happen to people who have or do not have diabetes. ??? Make sure you drink enough fluids and follow your meal plan. Exercise as often as told by your doctor. ??? Contact your doctor if you have problems keeping your blood sugar in your target range. This information is not intended to replace advice given to you by your health care provider. Make sure you discuss any questions you have with your health care provider. Document Revised: 05/24/2021 Document Reviewed: 05/24/2021 [employer] Patient Education ?? 2022 [employer] 08/29/2024 10:33:30 Hemoglobin A1C Test Hemoglobin A1C Test Why am I having this test? You may have the hemoglobin A1C test (A1C test) done to: ??? Check your risk for developing diabetes. ??? Diagnose diabetes. ??? Check the long-term control of blood sugar (glucose) in people who have diabetes and help make treatment decisions. This test may be done with other blood glucose tests, such as fasting blood glucose and oral glucose tolerance tests. What is being tested? Hemoglobin is a type of protein in the blood that carries oxygen. Glucose attaches to hemoglobin toform glycated hemoglobin. This test checks the amount of glycated hemoglobin in your blood. This guero good indicator of the average amount of glucose in your blood during the past 2???3 months. What kind of sample is taken? A blood sample is required for this test. It is usually collected by inserting a needle into a blood vessel. Tell a health care provider about: ??? All medicines you are taking, including vitamins, herbs, eye drops, creams, and rmfz-chg-xrymgfs medicines. ??? Any blood disorders you have. ??? Any surgeries you have had. ??? Any medical conditions you have. ??? Whether you are or may be . How are the results reported? Your results will be reported as a percentage indicating how much of your hemoglobin has glucose attached to it. Your health care provider will compare your results to normal ranges established aftertesting a large group of people (reference ranges). Reference ranges may vary among labs and hospitals. For this test, common reference ranges are: ??? Adult or child without diabetes: 4???5.6%. ??? Adult or child with prediabetes: 5.7%???6.4%. ??? Adult or child with diabetes: 6.5% or higher. What do the results mean? If you do not have diabetes: ??? A result within the reference range means that you are not at high risk for diabetes. ??? A result of 5.7???6.4% means that you have a high risk of developing diabetes, and you have prediabetes. Having prediabetes puts you at risk for developing type 2 diabetes. You may have more tests, including a repeat A1C test. ??? Results of 6.5% or higher on two separate A1C tests mean that you have diabetes. You may have more tests to confirm the diagnosis. If you have diabetes: ??? A result of 7% usually means that your diabetes is under control. ??? A result of less than 7% also means that diabetes is under control. This result may be an appropriate goal for those for whom there is a low risk of low blood sugar (hypoglycemia). ??? A result of less than 8% may also mean that diabetes is under control. This result may be an appropriate goal for those who do not benefit from more blood glucose control or who are at high risk for hypoglycemia. Abnormally low A1C values may be caused by: ??? . ??? Severe blood loss. ??? Receiving donated blood (transfusions). ??? Low red blood cell count (anemia). ??? Long-term kidney failure. ??? Some unusual forms (variants) of hemoglobin. Talk with your health care provider about what your results mean. Questions to ask your health care provider Ask your health care provider, or the department that is doing the test: ??? When will my results be ready? How will I get my results? What are my treatment options? What other tests do I need? What are my next steps? Summary ??? The A1C test is done to check your risk for developing diabetes, diagnose diabetes, and check the long-term control of blood sugar (glucose) in people who have diabetes and help make treatment decisions. ??? Hemoglobin is a type of protein in the blood that carries oxygen. Glucose attaches to hemoglobin to form glycated hemoglobin. This test checks the amount of glycated hemoglobin in your blood. ??? Talk with your health care provider about what your results mean. This information is not intended to replace advice given to you by your health care provider. Make sure you discuss any questions you have with your health care provider. Document Revised: 03/17/2023 Document Reviewed: 09/24/2022 [employer] Patient Education ?? 2022 [employer]. 08/29/2024 10:33:27 Cellulitis, Adult, Nqvf-xy-Rolw Cellulitis, Adult Cellulitis is a skin infection. The infected area is often warm, red, swollen, and sore. It occurs most often in the arms and lower legs. It is very important to get treated for this condition. What are the causes? This condition is caused by bacteria. The bacteria enter through a break in the skin, such as a cut, burn, insect bite, open sore, or crack. What increases the risk? This condition is more likely to occur in people who: ??? Have a weak body defense system (immune system). ??? Have open cuts, curran, bites, or scrapes on the skin. ??? Are older than 60 years of age. ??? Have a blood sugar problem (diabetes). ??? Have a long-lasting (chronic) liver disease (cirrhosis) or kidney disease. ??? Are very overweight (obese). ??? Have a skin problem, such as: ??? Itchy rash (eczema). ??? Slow movement of blood in the veins (venous stasis). ??? Fluid buildup below the skin (edema). ??? Have been treated with high-energy rays (radiation). ??? Use IV drugs. What are the signs or symptoms? Symptoms of this condition include: ??? Skin that is: ??? Red. ??? Streaking. ??? Spotting. ??? Swollen. ??? Sore or painful when you touch it. ??? Warm. ??? A fever. ??? Chills. ??? Blisters. How is this diagnosed? This condition is diagnosed based on: ??? Medical history. ??? Physical exam. ??? Blood tests. ??? Imaging tests. How is this treated? Treatment for this condition may include: ??? Medicines to treat infections or allergies. ??? Home care, such as: ??? Rest. ??? Placing cold or warm cloths (compresses) on the skin. ??? Hospital care, if the condition is very bad. Follow these instructions at home: Medicines ??? Take rihq-bcn-gdvgmaz and prescription medicines only as told by your doctor. ??? If you were prescribed an antibiotic medicine, take it as told by your doctor. Do not stop taking it even if you start to feel better. General instructions ??? Drink enough fluid to keep your pee (urine) pale yellow. ??? Do not touch or rub the infected area. ??? Raise (elevate) the infected area above the level of your heart while you are sitting or lying down. ??? Place cold or warm cloths on the area as told by your doctor. ??? Keep all follow-up visits as told by your doctor. This is important. Contact a doctor if: ??? You have a fever. ??? You do not start to get better after 1???2 days of treatment. ??? Your bone or joint under the infected area starts to hurt after the skin has healed. ??? Your infection comes back. This can happen in the same area or another area. ??? You have a swollen bump in the area. ??? You have new symptoms. ??? You feel ill and have muscle aches and pains. Get help right away if: ??? Your symptoms get worse. ??? You feel very sleepy. ??? You throw up (vomit) or have watery poop (diarrhea) for a long time. ??? You see red streaks coming from the area. ??? Your red area gets larger. ??? Your red area turns dark in color. These symptoms may represent a serious problem that is an emergency. Do not wait to see if the symptoms will go away. Get medical help right away. Call your local emergency services (911 in the [place] Do not drive yourself to the hospital. Summary ??? Cellulitis is a skin infection. The area is often warm, red, swollen, and sore. ??? This condition is treated with medicines, rest, and cold and warm cloths. ??? Take all medicines only as told by your doctor. ??? Tell your doctor if symptoms do not start to get better after 1???2 days of treatment. This information is not intended to replace advice given to you by your health care provider. Make sure you discuss any questions you have with your health care provider. Document Revised: 05/21/2022 Document Reviewed: 05/22/2022 [employer] Patient Education ?? 2022 [employer]. Follow Up Care 08/28/2024 03:41:51 With:Follow up with primary care provider Address: When:09/02/2024 12:00:00 Comments:[facility] with Dimitrios Mak??09/02/24 at 1:30pm Discharge instructions * Joy Gillis RN: PERFORM Event Display: Discharge Instructions Authored Date: [id number] RAVINDRA JONES :1990 Age:34 years Sex:Female Visit Date:08/28/2024 Hospital Discharge Instructions We would like to thank you for allowing us to assist you with your healthcare needs. The following includes patient education materials and information regarding your injury/illness. Your Next Steps Follow Up Appointments Follow Up with??Follow up with primary care provider When:??09/02/2024 01:00 PM EST Why: [facility] with Dimitrios Mak??09/02/24 at 1:30pm Medications What How Much When Instructions Next Dose New glipiZIDE (glipiZIDE 5 mg oral tablet, extended release) 1 tab Oral (given by mouth) Every day Pickup at [facility] Unchanged albuterol (Albuterol (Eqv-ProAir HFA) 90 mcg/ inh inhalation aerosol) 2 Inhalation Inhale (breathe in) Every 6 hours as needed for as needed for shortness of breath or wheezing Unchanged cephalexin (cephalexin 500 mg oral capsule) 1 Capsules Oral (given by mouth) 4 times a day Duration: 7 Days Unchanged ipratropium-albuterol (ipratropium-albuterol 0.5 mg-2.5 mg/ 3 mL inhalation solution) 3 [place] Nebulized inhalation (inhale using nebulizer) 4 times a day as needed for as needed for shortness of breath or wheezing Unchanged sulfamethoxazole-trimethoprim (sulfamethoxazole-trimethoprim 800 mg- 160 mg oral tablet) 1 tab Oral (given by mouth) Every day Pharmacy Information [facility]: [address] [place] [address] [phone] ?? What How Much When Comments Stop Taking gabapentin (gabapentin 300 mg oral capsule) 1 Capsules Oral (given by mouth) 2 times a day Stop Taking lamoTRIgine (lamoTRIgine 25 mg oral tablet) 1 tab Oral (given by mouth) Every day Stop Taking metFORMIN (metFORMIN 500 mg oral tablet) 1 tab Oral (given by mouth) Every day with meals ?? Stop Taking prazosin (prazosin 1 mg oral capsule) 1 Capsules Oral (given by mouth) Every night at bedtime Stop Taking valACYclovir (valACYclovir 1 g oral tablet) 1 tab Oral (given by mouth) 2 times a day Your Summary Your Care Team Admitting Physician - Cat Sullivan APRN Attending Physician - Heron Carver MD Your Diagnosis Non-compliance Cellulitis of right leg without foot Sepsis DM (diabetes mellitus), type 2, uncontrolled, with hyperosmolarity Spider bite Substance abuse Problems Ongoing - Any problem that you are currently receiving treatment for. DM (diabetes mellitus), type 2, uncontrolled, with hyperosmolarity Morbid obesity Tobacco user Wound infection - complicated Tests Performed/Pending Automated Diff C-Reactive Protein CBC w/ Diff CK CMP Drug Screen Urine Glucose POCT Hemoglobin A1C Lactic Acid MRSA/MSSA Nasal (GeneXpert) Sedimentation Rate (ESR) Urinalysis with Micro if Indicated and Culture if Indicated CT Angio Lower Extremity Right US Lower Ext Venous Duplex Right XR Tibia/Fibula Right Discharge Vitals Temperature??(Temporal Artery) 99.0 ??F (37.2 ??C) Heart Rate??(Peripheral) 71 Respiratory Rate?? 18 Blood Pressure?? 132/84?? SpO2?? 98% Height?? 59.06 in (150 cm) Weight?? 205.95 lb (93.4 kg) BMI?? 41.51 Allergies No Known Medication Allergies Education Materials Type 2 Diabetes Mellitus, Self-Care, Adult When you have type 2 diabetes (type 2 diabetes mellitus), you must make sure your blood sugar (glucose) stays in a healthy range. You can do this with: ? Nutrition. ? Exercise. ? Lifestyle changes. ? Medicines or insulin, if needed. ? Support from your doctors and others. What are the risks? Having type 2 diabetes can raise your risk for other long-term (chronic) health problems. You may get medicines to help prevent these problems. How to stay aware of your blood sugar ? Check your blood sugar level every day, as often as told. ? Have your A1C (hemoglobin A1C) level checked two or more times a year. Have it checked more often if told. ? Your doctor will set personal treatment goals for you. In general, you should have these blood sugar levels: ? Before meals: 80???130 mg/dL (4.4???7.2 mmol/L). ? After meals: below 180 mg/dL (10 mmol/L). ? A1C: less than 7%. How to manage high and low blood sugar Symptoms of high blood sugar High blood sugar is also called hyperglycemia. Know the symptoms of high blood sugar. These may include: ? More thirst. ? Hunger. ? Feeling very tired. ? Needing to pee (urinate) more often than normal. ? Seeing things blurry. Symptoms of low blood sugar Low blood sugar is also called hypoglycemia. This is when blood sugar is at or below 70 mg/dL (3.9 mmol/L). Symptoms may include: ? Hunger. ? Feeling worried or nervous (anxious). ? Feeling sweaty and cold to the touch (clammy). ? Being dizzy or light-headed. ? Feeling sleepy. ? A fast heartbeat. ? Feeling grouchy (irritable). ? Tingling or loss of feeling (numbness) around your mouth, lips, or tongue. ? Restless sleep. Diabetes medicines can cause low blood sugar. You are more at risk: ? While you exercise. ? After exercise. ? During sleep. ? When you are sick. ? When you skip meals or do not eat for a long time. Treating low blood sugar If you think you have low blood sugar, eat or drink something sugary right away. Keep 15 grams of afast-acting carb (carbohydrate) with you all the time. Make sure your family and friends know how to treat you if you cannot treat yourself. Treating very low blood sugar Severe hypoglycemia is when your blood sugar is at or below 54 mg/dL (3 mmol/L). ? Severe hypoglycemia is an emergency. Get medical help right away. Call your local emergency services (911 in the [place] ? Do not wait to see if the symptoms will go away. ? Do not drive yourself to the hospital. You may need a glucagon shot if you have very low blood sugar and you cannot eat or drink. Have a family member or friend learn how to check your blood sugar and how to give you a glucagon shot. Ask your doctor if you should have a kit for glucagon shots. Follow these instructions at home: Medicines ? Take prescribed insulin or diabetes medicines as told by your health care provider. ? Do not run out of insulin or other medicines. Plan ahead. ? If you use insulin, change the amount you take based on how active you are and what foods you eat. Your doctor will tell you how to do this. ? Take wuhq-cib-ttgmofu and prescription medicines only as told by your doctor. Eating and drinking ? Eat healthy foods. These include: ? Low-fat (lean) proteins. ? Complex carbs, such as whole grains. ? Fresh fruits and vegetables. ? Low-fat dairy products. ? Healthy fats. ? Meet with a food expert (dietitian) to make an eating plan. ? Follow instructions from your doctor about what you cannot eat or drink. ? Drink enough fluid to keep your pee (urine) pale yellow. ? Keep track of carbs that you eat. Read food labels and learn serving sizes of foods. ? Follow your sick-day plan when you cannot eat or drink as normal. Make this plan with your doctor so it is ready to use. Activity ? Exercise as told by your doctor. You may need to: ? Do stretching and strength exercises two or more times a week. ? Do 150 minutes or more of exercise each week that makes your heart beat faster and makes you sweat. ? Spread out your exercise over 3 or more days a week. ? Do not go more than 2 days in a row without exercise. ? Talk with your doctor before you start a new exercise. Your doctor may tell you to change: ? How much insulin or medicines you take. ? How much food you eat. Lifestyle ? Do not smoke or use any products that contain nicotine or tobacco. If you need help quitting, ask your doctor. ? If you drink alcohol and your doctor says that it is safe for you: ? Limit how much you have to: ? 0???1 drink a day for women who are not . ? 0???2 drinks a day for men. ? Know how much alcohol is in your drink. In the [place] one drink equals one 12 oz bottle of beer (355mL), one 5 oz glass of wine (148 mL), or one 1?? oz glass of hard liquor (44 mL). ? Learn to deal with stress. If you need help, ask your doctor. Body care ? Stay up to date with your shots (immunizations). ? Have your eyes and feet checked by a doctor as often as told. ? Check your skin and feet every day. Check for cuts, bruises, redness, blisters, or sores. ? [place] your teeth and gums two times a day. Floss one or more times a day. ? Go to the dentist one or more times every 6 months. ? Stay at a healthy weight. General instructions ? Share your diabetes care plan with: ? Your work or school. ? People you live with. ? Carry a card or wear jewelry that says you have diabetes. ? Keep all follow-up visits. Questions to ask your doctor ? Do I need to meet with a certified expert in diabetes education and care? Where can I find a support group? Where to find more information For help and guidance and more information about diabetes, please go to: ? [place] Diabetes Association: www.diabetes.org ? [place] [employer] Diabetes Care and Education Specialists: www.diabeteseducator.org ? International Diabetes Federation: www.idf.org Summary ? When you have type 2 diabetes, you must make sure your blood sugar (glucose) stays in a healthy range. You can do this with nutrition, exercise, medicines and insulin, and support from doctors and others. ? Check your blood sugar every day, or as often as told. ? Having diabetes can raise your risk for other long-term health problems. You may get medicines to help prevent these problems. ? Share your diabetes management plan with people at work, school, and home. ? Keep all follow-up visits. This information is not intended to replace advice given to you by your health care provider. Make sure you discuss any questions you have with your health care provider. Document Revised: 11/04/2021 Document Reviewed: 11/04/2021 [employer] Patient Education ?? 2022 [employer]. Diabetes Mellitus and Skin Care Diabetes, also called diabetes mellitus, can lead to skin problems. If blood sugar (glucose) is notwell controlled, it can cause problems over time. These problems include: ? Damage to nerves. This can affect your ability to feel wounds. This means you may not notice small skin injuries that could lead to bigger problems. This can also decrease the amount that you sweat, causing dry skin. ? Damage to blood vessels. The lack of blood flow can cause skin to break down. It can also slow healing time, which can lead to infections. ? Areas of skin that become thick or discolored. Common skin conditions There are certain skin conditions that often affect people with diabetes. These include: ? Dry skin. ? Thin skin. The skin on the feet may get thinner, break more easily, and heal more slowly than normal. ? Skin infections from bacteria. These include: ? Styes. These are infections near the eyelid. ? Boils. These are bumps filled with pus. ? Infected hair follicles. ? Infections of the skin around the nails. ? Fungal skin infections. These are most common in areas where skin rubs together, such as in the armpits or under the breasts. Common skin changes Diabetes can also cause the skin to change. You may develop: ? Dark, velvety markings on your skin. These may appear on your face, neck, armpits, inner thighs, and groin. ? Red, raised, scar-like tissue that may itch, feel painful, or become a wound. ? Blisters on your feet, toes, hands, or fingers. ? Thick, wax-like areas of skin. In most cases, these occur on the hands, forehead, or toes. ? Brown or red, ring-shaped or iryj-hmgq-vckunx patches of skin on the ears or fingers. ? Pea-shaped, yellow bumps that may be itchy and have a red ring around them. This may affect your arms, feet, buttocks, and the top of your hands. ? Round, discolored patches of wing skin that do not hurt or itch. These may look like age spots. Supplies needed: ? Mild soap or gentle skin cleanser. ? Lotion. How to care for dry, itchy skin Frequent high glucose levels can cause skin to become itchy. Poor blood circulation and skin infections can make dry skin worse. If you have dry, itchy skin: ? Avoid very hot showers and baths. ? Use mild soap and gentle skin cleansers. Do not use soap that is perfumed, harsh, or that dries your skin. Moisturizing soaps may help. ? Put on moisturizing lotion as soon as you finish bathing. ? Do not scratch dry skin. Scratching can expose skin to infection. If you have a rash or if your skin is very itchy, contact your health care provider. Skin that is red or covered in a rash may be a sign of an allergic reaction. Very itchy skin may mean that you need help to manage your diabetes better. You may also need treatment for an infection. General tips Most skin problems can be prevented or treated easily if caught early. Talk with your health care provider if you have any concerns. General tips include: ? Check your skin every day for cuts, bruises, redness, blisters, or sores, especially on your feet. If you cannot see the bottom of your feet, use a mirror or ask someone for help. Tell your health care provider if you have any of these injuries and if they are healing slowly. ? Keep your skin clean and dry. Do not use hot water. ? Moisturize your skin to prevent chapping. ? Keep your blood glucose levels within target range. Follow these instructions at home: ? Take mzxh-ndg-pjwljuk and prescription medicines only as told by your health care provider. This includes all diabetes medicines you are taking. ? Schedule a foot exam with your health care provider once a year. During the exam, the structure andskin of your feet will be checked for problems. ? Make sure that your health care provider does a visual foot exam at every visit. ? If you get a skin injury, such as a cut, blister, or sore, check the area every day for signs of infection. Check for: ? Redness, swelling, or pain. ? Fluid or blood. ? Warmth. ? Pus or a bad smell. ? Do not use any products that contain nicotine or tobacco. These products include cigarettes, chewing tobacco, and vaping devices, such as e-cigarettes. If you need help quitting, ask your health careprovider. Where to find more information ? [place] Diabetes Association: diabetes.org ? Association of Diabetes Care & Education Specialists: diabeteseducator.org Contact a health care provider if: ? You get a cut or sore, especially on your feet. ? You have signs of infection after a skin injury. ? You have itchy skin that turns red or develops a rash. ? You have discolored areas of skin. ? You have places on your skin that change. They may thicken or appear shiny. This information is not intended to replace advice given to you by your health care provider. Make sure you discuss any questions you have with your health care provider. Document Revised: 02/11/2023 Document Reviewed: 02/11/2023 [employer] Patient Education ?? 2022 [employer] Hyperglycemia Hyperglycemia is when the sugar (glucose) level in your blood is too high. High blood sugar can happen to people who have or do not have diabetes. High blood sugar can happen quickly. It can be an emergency. What are the causes? If you have diabetes, high blood sugar may be caused by: ? Medicines that increase blood sugar or affect your control of diabetes. ? Getting less physical activity. ? Overeating. ? Being sick or injured or having an infection. ? Having surgery. ? Stress. ? Not giving yourself enough insulin (if you are taking it). You may have high blood sugar because you have diabetes that has not been diagnosed yet. If you do not have diabetes, high blood sugar may be caused by: ? Certain medicines. ? Stress. ? A bad illness. ? An infection. ? Having surgery. ? Diseases of the pancreas. What increases the risk? This condition is more likely to develop in people who have risk factors for diabetes, such as: ? Having a family member with diabetes. ? Certain conditions in which the body's defense system (immune system) attacks itself. These are called autoimmune disorders. ? Being overweight. ? Not being active. ? Having a condition called insulin resistance. ? Having a history of: ? Prediabetes. ? Diabetes when . ? Polycystic ovarian syndrome (PCOS). What are the signs or symptoms? This condition may not cause symptoms. If you do have symptoms, they may include: ? Feeling more thirsty than normal. ? Needing to pee (urinate) more often than normal. ? Hunger. ? Feeling very tired. ? Blurry eyesight (vision). You may get other symptoms as the condition gets worse, such as: ? Dry mouth. ? Pain in your belly (abdomen). ? Not being hungry (loss of appetite). ? Breath that smells fruity. ? Weakness. ? Weight loss that is not planned. ? A tingling or numb feeling in your hands or feet. ? A headache. ? Cuts or bruises that heal slowly. How is this treated? Treatment depends on the cause of your condition. Treatment may include: ? Taking medicine to control your blood sugar levels. ? Changing your medicine or dosage if you take insulin or other diabetes medicines. ? Lifestyle changes. These may include: ? Exercising more. ? Eating healthier foods. ? Losing weight. ? Treating an illness or infection. ? Checking your blood sugar more often. ? Stopping or reducing steroid medicines. If your condition gets very bad, you will need to be treated in the hospital. Follow these instructions at home: General instructions ? Take muas-zre-qkfmzto and prescription medicines only as told by your doctor. ? Do not smoke or use any products that contain nicotine or tobacco. If you need help quitting, ask your doctor. ? If you drink alcohol: ? Limit how much you have to: ? 0???1 drink a day for women who are not . ? 0???2 drinks a day for men. ? Know how much alcohol is in a drink. In the [place] one drink equals one 12 oz bottle of beer (355 mL), one 5 oz glass of wine (148 mL), or one 1?? oz glass of hard liquor (44 mL). ? Manage stress. If you need help with this, ask your doctor. ? Do exercises as told by your doctor. ? Keep all follow-up visits. Eating and drinking ? Stay at a healthy weight. ? Make sure you drink enough fluid when you: ? Exercise. ? Get sick. ? Are in hot temperatures. ? Drink enough fluid to keep your pee (urine) pale yellow. If you have diabetes: ? Know the symptoms of high blood sugar. ? Follow your diabetes management plan as told by your doctor. Make sure you: ? Take insulin and medicines as told. ? Follow your exercise plan. ? Follow your meal plan. Eat on time. Do not skip meals. ? Check your blood sugar as often as told. Make sure you check before and after exercise. If you exercise longer or in a different way, check your blood sugar more often. ? Follow your sick day plan whenever you cannot eat or drink normally. Make this plan ahead of time with your doctor. ? Share your diabetes management plan with people in your workplace, school, and household. ? Check your pee for ketones when you are ill and as told by your doctor. ? Carry a card or wear jewelry that says that you have diabetes. Where to find more information [place] [employer] Association: www.diabetes.org Contact a doctor if: ? Your blood sugar level is at or above 240 mg/dL (13.3 mmol/L) for 2 days in a row. ? You have problems keeping your blood sugar in your target range. ? You have high blood pressure often. ? You have signs of illness, such as: ? Feeling like you may vomit (feeling nauseous). ? Vomiting. ? A fever. Get help right away if: ? Your blood sugar monitor reads high even when you are taking insulin. ? You have trouble breathing. ? You have a change in how you think, feel, or act (mental status). ? You feel like you may vomit, and the feeling does not go away. ? You cannot stop vomiting. These symptoms may be an emergency. Get medical help right away. Call your local emergency services(911 in the [place] ? Do not wait to see if the symptoms will go away. ? Do not drive yourself to the hospital. Summary ? Hyperglycemia is when the sugar (glucose) level in your blood is too high. ? High blood sugar can happen to people who have or do not have diabetes. ? Make sure you drink enough fluids and follow your meal plan. Exercise as often as told by your doctor. ? Contact your doctor if you have problems keeping your blood sugar in your target range. This information is not intended to replace advice given to you by your health care provider. Make sure you discuss any questions you have with your health care provider. Document Revised: 05/24/2021 Document Reviewed: 05/24/2021 [employer] Patient Education ?? 2022 [employer]. Hemoglobin A1C Test Why am I having this test? You may have the hemoglobin A1C test (A1C test) done to: ? Check your risk for developing diabetes. ? Diagnose diabetes. ? Check the long-term control of blood sugar (glucose) in people who have diabetes and help make treatment decisions. This test may be done with other blood glucose tests, such as fasting blood glucose and oral glucose tolerance tests. What is being tested? Hemoglobin is a type of protein in the blood that carries oxygen. Glucose attaches to hemoglobin toform glycated hemoglobin. This test checks the amount of glycated hemoglobin in your blood. This guero good indicator of the average amount of glucose in your blood during the past 2???3 months. What kind of sample is taken? A blood sample is required for this test. It is usually collected by inserting a needle into a blood vessel. Tell a health care provider about: ? All medicines you are taking, including vitamins, herbs, eye drops, creams, and hxjd-drr-xmdgcfj medicines. ? Any blood disorders you have. ? Any surgeries you have had. ? Any medical conditions you have. ? Whether you are or may be . How are the results reported? Your results will be reported as a percentage indicating how much of your hemoglobin has glucose attached to it. Your health care provider will compare your results to normal ranges established aftertesting a large group of people (reference ranges). Reference ranges may vary among labs and hospitals. For this test, common reference ranges are: ? Adult or child without diabetes: 4???5.6%. ? Adult or child with prediabetes: 5.7%???6.4%. ? Adult or child with diabetes: 6.5% or higher. What do the results mean? If you do not have diabetes: ? A result within the reference range means that you are not at high risk for diabetes. ? A result of 5.7???6.4% means that you have a high risk of developing diabetes, and you have prediabetes. Having prediabetes puts you at risk for developing type 2 diabetes. You may have more tests, including a repeat A1C test. ? Results of 6.5% or higher on two separate A1C tests mean that you have diabetes. You may have more tests to confirm the diagnosis. If you have diabetes: ? A result of 7% usually means that your diabetes is under control. ? A result of less than 7% also means that diabetes is under control. This result may be an appropriate goal for those for whom there is a low risk of low blood sugar (hypoglycemia). ? A result of less than 8% may also mean that diabetes is under control. This result may be an appropriate goal for those who do not benefit from more blood glucose control or who are at high risk for hypoglycemia. Abnormally low A1C values may be caused by: ? . ? Severe blood loss. ? Receiving donated blood (transfusions). ? Low red blood cell count (anemia). ? Long-term kidney failure. ? Some unusual forms (variants) of hemoglobin. Talk with your health care provider about what your results mean. Questions to ask your health care provider Ask your health care provider, or the department that is doing the test: ? When will my results be ready? How will I get my results? What are my treatment options? What other tests do I need? What are my next steps? Summary ? The A1C test is done to check your risk for developing diabetes, diagnose diabetes, and check the long-term control of blood sugar (glucose) in people who have diabetes and help make treatment decisions. ? Hemoglobin is a type of protein in the blood that carries oxygen. Glucose attaches to hemoglobin toform glycated hemoglobin. This test checks the amount of glycated hemoglobin in your blood. ? Talk with your health care provider about what your results mean. This information is not intended to replace advice given to you by your health care provider. Make sure you discuss any questions you have with your health care provider. Document Revised: 03/17/2023 Document Reviewed: 09/24/2022 [employer] Patient Education ?? 2022 [employer] Cellulitis, Adult Cellulitis is a skin infection. The infected area is often warm, red, swollen, and sore. It occurs most often in the arms and lower legs. It is very important to get treated for this condition. What are the causes? This condition is caused by bacteria. The bacteria enter through a break in the skin, such as a cut, burn, insect bite, open sore, or crack. What increases the risk? This condition is more likely to occur in people who: ? Have a weak body defense system (immune system). ? Have open cuts, curran, bites, or scrapes on the skin. ? Are older than 60 years of age. ? Have a blood sugar problem (diabetes). ? Have a long-lasting (chronic) liver disease (cirrhosis) or kidney disease. ? Are very overweight (obese). ? Have a skin problem, such as: ? Itchy rash (eczema). ? Slow movement of blood in the veins (venous stasis). ? Fluid buildup below the skin (edema). ? Have been treated with high-energy rays (radiation). ? Use IV drugs. What are the signs or symptoms? Symptoms of this condition include: ? Skin that is: ? Red. ? Streaking. ? Spotting. ? Swollen. ? Sore or painful when you touch it. ? Warm. ? A fever. ? Chills. ? Blisters. How is this diagnosed? This condition is diagnosed based on: ? Medical history. ? Physical exam. ? Blood tests. ? Imaging tests. How is this treated? Treatment for this condition may include: ? Medicines to treat infections or allergies. ? Home care, such as: ? Rest. ? Placing cold or warm cloths (compresses) on the skin. ? Hospital care, if the condition is very bad. Follow these instructions at home: Medicines ? Take jrht-rgo-ulronol and prescription medicines only as told by your doctor. ? If you were prescribed an antibiotic medicine, take it as told by your doctor. Do not stop taking it even if you start to feel better. General instructions ? Drink enough fluid to keep your pee (urine) pale yellow. ? Do not touch or rub the infected area. ? Raise (elevate) the infected area above the level of your heart while you are sitting or lying down. ? Place cold or warm cloths on the area as told by your doctor. ? Keep all follow-up visits as told by your doctor. This is important. Contact a doctor if: ? You have a fever. ? You do not start to get better after 1???2 days of treatment. ? Your bone or joint under the infected area starts to hurt after the skin has healed. ? Your infection comes back. This can happen in the same area or another area. ? You have a swollen bump in the area. ? You have new symptoms. ? You feel ill and have muscle aches and pains. Get help right away if: ? Your symptoms get worse. ? You feel very sleepy. ? You throw up (vomit) or have watery poop (diarrhea) for a long time. ? You see red streaks coming from the area. ? Your red area gets larger. ? Your red area turns dark in color. These symptoms may represent a serious problem that is an emergency. Do not wait to see if the symptoms will go away. Get medical help right away. Call your local emergency services (911 in the [place] Do not drive yourself to the hospital. Summary ? Cellulitis is a skin infection. The area is often warm, red, swollen, and sore. ? This condition is treated with medicines, rest, and cold and warm cloths. ? Take all medicines only as told by your doctor. ? Tell your doctor if symptoms do not start to get better after 1???2 days of treatment. This information is not intended to replace advice given to you by your health care provider. Make sure you discuss any questions you have with your health care provider. Document Revised: 05/21/2022 Document Reviewed: 05/22/2022 [employer] Patient Education ?? 2022 [employer]. Medication Information glipizide?? (GLIP i zide) ?? GlipiZIDE XL, Glucotrol XL? What is the most important information I should know about glipizide? Use only as directed. Tell your doctor if you use other medicines or have other medical conditions or allergies. ?? What is glipizide? Glipizide can be used alone or with other medications, diet, and exercise to improve blood sugar control in adults with type 2 diabetes mellitus (not for type 1 diabetes). ?? Glipizide may also be used for purposes not listed in this medication guide. ?? What should I discuss with my healthcare provider before taking glipizide? You should not use this medicine if you are allergic to glipizide or any of its ingredients or if you have: ?type 1 diabetes; ?a condition called diabetic ketoacidosis; or ?an allergy to sulfa drugs. ?? Tell your doctor if you have or have ever had: ?diabetic ketoacidosis; ?a blockage in your stomach or intestines caused by disease or surgery; ?severe or ongoing diarrhea; ?an enzyme deficiency called zvdgndp-8-mtrjoxlhj dehydrogenase deficiency (G6PD); or ?liver or kidney disease. ?? Glipizide may increase your risk of heart problems.??Ask your doctor about this risk. ?? It is not known if glipizide will harm an unborn baby. Tell your doctor if you are or planto become . Follow your doctor's instructions about using this medicine??if you are . ?? Having high blood sugar during may cause complications or medical problems in both motherand baby. Controlling diabetes is very important during , and you may need to stop taking glipizide for a short time just before your due date. ?? Ask a doctor if it is safe to breastfeed while using this medicine. ?? How should I take glipizide? Follow all directions on your prescription label and read all medication guides or instruction sheets. Your doctor may occasionally change your dose. Use the medicine exactly as directed. ?? Your dose needs may change if you switch to a different brand, strength, or form of this medicine.??Avoid medication errors by using exactly as directed on the label, or as prescribed by your doctor. ?? Take glipizide 30 minutes before a meal. ?? Take the glipizide??extended-release tablet??once a day with breakfast or your first meal of the day. ?? Swallow the??extended-release tablet??whole and do not crush, break, chew or dissolve it. ?? Your blood sugar will need to be checked on a regular basis, and you may need other medical tests.? Part of the??extended-release tablet??shell may appear in your stool but this will not make the medicine less effective. ?? Blood sugar can be affected by stress, illness, surgery, exercise, alcohol use, or skipping meals.? Low blood sugar??(hypoglycemia)??can make you feel very hungry, dizzy, irritable, or shaky. To quickly treat hypoglycemia, eat or drink hard candy, crackers, raisins, fruit juice, or non-diet soda. Your doctor may prescribe glucagon injection in case of severe hypoglycemia. ?? Tell your doctor if you have frequent symptoms of high blood sugar??(hyperglycemia)??such as increased thirst or urination.??Ask your doctor before changing your medication dosage. ?? Your treatment may also include diet, exercise, weight control, and special medical care. ?? Store tightly closed at room temperature in the original container away from moisture and heat. ?? What happens if I miss a dose? Take your dose as soon as you can,??but only if you are getting ready to eat a meal.??If you skip ameal, skip the missed dose and wait until your next meal.??Do not??take two doses at one time.? What happens if I overdose? Seek emergency medical attention or call the Poison Help line at .??An overdose can be fatal. ?? What should I avoid while taking glipizide? Do not drink alcohol.??Dangerous side effects could occur.? Avoid driving or hazardous activity until you know how this medicine will affect you. Your reactions could be impaired.? What are the possible side effects of glipizide? Get emergency medical help if you have??signs of an allergic reaction: hives, difficult breathing, swelling of your face, lips, tongue, or throat. ?? Call your doctor at once or seek emergency medical attention if you have: ?liver problems--loss of appetite, nausea, vomiting, stomach pain (upper right side), tiredness,itching, dark urine, tian-colored stools, jaundice (yellowing of the skin or eyes); ?signs of low or severely low blood sugar--headache, hunger, sweating, confusion, irritability, dizziness, fast heart rate, feeling jittery, extreme weakness, nausea, tremors, trouble speaking, orseizure; or ?signs of hemolytic anemia--pale or yellowed skin, dark colored urine, fever, confusion or weakness. ?? Common side effects may include: ?diarrhea, nausea, gas; ?dizziness, drowsiness;?headache, tremors, feeling nervous; or ?skin rash, redness, or itching. ?? This is not a complete list of side effects and others may occur. Call your doctor for medical advice about side effects. You may report side effects to FDA at 1-494-NFE-6323. ?? What other drugs will affect glipizide? When you start or stop taking glipizide,??your doctor may need to adjust the doses of other medicines you use on a regular basis. ?? Take your glipizide dose 4 hours before taking colesevelam. ?? Tell your doctor about all your other medicines, especially miconazole or fluconazole. ?? Many other drugs can affect your blood sugar and may also affect glipizide. This includes prescription and jezb-bjz-adrwgnl medicines, vitamins, and herbal products. Not all possible interactions arelisted here.? Where can I get more information? Your doctor or pharmacist can provide more information about glipizide. ?? Remember, keep this and all other medicines out of the reach of children, never share your medicines with others, and use this medication only for the indication prescribed. ?? Every effort has been made to ensure that the information provided by [employer] is accurate, up-to-date, and complete, but no guarantee is made to that effect. Drug information contained herein may be time sensitive. [employer] information has been compiled for use by healthcare practitioners and consumers in the [place] and therefore [employer] does not warrant that uses outside of the [place] are appropriate, unless specifically indicated otherwise. [employer] drug information does not endorse drugs, diagnose patients or recommend therapy. [employer] drug information isan informational resource designed to assist licensed healthcare practitioners in caring for their p atients and/or to serve consumers viewing this service as a supplement to, and not a substitute for, the expertise, skill, knowledge and judgment of healthcare practitioners. The absence of a warningfor a given drug or drug combination in no way should be construed to indicate that the drug or drug combination is safe, effective or appropriate for any given patient. [employer] does not assume any responsibility for any aspect of healthcare administered with the aid of information [employer] provides. The information contained herein is not intended to cover all possible uses, directions, precautions, warnings, drug interactions, allergic reactions, or adverse effects. If you have questions about the drugs you are taking, check with your doctor, nurse or pharmacist.? Copyright 1112-2739 [employer] Version: . Revision Date: 12/28/2023. ? Patient/Inclusion Manager Signature Patient Name:ROBERT RAVINDRA J I have received this information and my questions have been answered. Patient/Inclusion Manager Name: Patient/Inclusion Manager Signature: Relationship to Patient: Witness Name/Signature: Date: Electronically Signed on: 08/29/2024 11:52 ESTSigned by:AE Physician Emergency department Note * Molina Lombardi MD: PERFORM, MODIFY, MODIFY Event Display: ED Note Physician Authored Date: [id number] RAVINDRA JONES :1990 Age:34 years Sex:Female Visit Date:08/28/2024 Basic Information Time Seen: Molina Lombardi MD / 08/28/2024 04:25 Chief Complaint 2 days ago pt ??was cleaning with metal sponge and got a few open wounds on right salguero that have progressed. RLE is swollen, warm to the touch, painful. Started antibx yesterday from [facility], here due to increased pain. No OTC medications taken, med hx DM 2. History Of Present Illness: 34-year-old poorly controlled type II diabetic presents with increasing pain in the right leg redness and swelling.?? She states she was cleaning with a metal sponge and got some open wounds and somemetallic foreign bodies in the right pretibial region a couple of days ago, developed increasing redness and swelling to her right pretibial area,??no fevers or chills,??has poorly controlled type 2 diabetes.?? Redness??increased for a couple of days, went to??[facility]??yesterday,??was seen in the middle of the night,??was started on??Keflex and Bactrim after an ultrasound revealed a small metallic foreign body that was removed.?? She feels the pain is increasing, she is taken??3 doses of antibiotics,??no real fevers, no recent antibiotics otherwise, no known MRSA history.?? I did review records from the other facility.?? No chest pain or difficulty breathing. Review of Systems: Per HPI Physical Exam Vitals & Measurements T:??36.7?C ??(Oral)?? HR:??103??(Monitored)?? RR:??16?? BP:??121/82?? SpO2:??99%?? HT:??150??cm?? WT:??93.4??kg?? BMI:??41.51?? Pain Score:??7?? O2 Therapy:??Room air?? GEN:??Awake, alert, no distress HEENT: Mucous memories moist??sclera white LUNGS:??No increased work of breathing CARDIOVASCULAR: 2+ dorsalis pedis pulse, cap refill < 2 seconds ABDOMEN: Deferred?? :??Deferred EXTREMITIES: Full range of motion without inflammatory changes to the knee or ankle??on the right leg, hip and foot move normally NEURO:??Awake, speech clear, cogent, sober,??face symmetric, moves arms and legs with normal coordination,??gait normal SKIN: Most of her right pretibial??area is tender swollen and red, redness is largely within the area marked at the other facility??24 hours ago,??her calf is nontender, thigh is nontender, foot without swelling,??knee and ankle move without difficulty PSYCHIATRIC:??No internal stimuli, goal directed speech Medical Decision Makin-year-old??woman??with uncontrolled type 2 diabetes presents with a right lower extremity cellulitis. ??I have considered necrotizing infection, retained foreign body, DVT. ??Overall this does appear to be cellulitic, is in the anterior salguero so I do not think there is a DVT, she had an ultrasoundyesterday showing no??abscess.?? I do not believe she needs CT imaging right now.?? No sign of a deep space infection. ??She is appropriately ill??without severe yhu-qa-qrfucwk pain??for the amount of??red area and there is no pain outside of??the area of redness, no bullae, no insensate region. ??She is mildly hyponatremic but??that is most likely??related to her hyperglycemia.?? Given her overall clinical picture I think observation IV antibiotics??until we get control of her infection is reasonable.?? She does have a pending??MRSA swab, depending on the results of that we will expand her coverage to include MRSA. Procedure No Qualifying Data Reexamination/Reevaluation I discussed case with the hospitalist at 5:20 AM. ??They will see the patient for consideration foradmission Assessment/Plan 1.??Cellulitis of right leg without foot??L03.115 2.??DM (diabetes mellitus), type 2, uncontrolled, with hyperosmolarity??E11.00 Orders: Staph Nasal Complete (GeneXpert), Nares, Stat Collect, 08/28/24 4:37:00 EST, Once, Nurse collect, Print Label XR Tibia/Fibula Right, 08/28/24 4:42:00 EST, Stat, Reason: Foreign body, Transport Mode: Ambulatory Medication Reconciliation Unchanged cephalexin (cephalexin 500 mg oral capsule)1 Capsules Oral (given by mouth) 4 times a day for 7 Days. ?? sulfamethoxazole-trimethoprim (sulfamethoxazole-trimethoprim 800 mg-160 mg oral tablet)1 tab Oral (given by mouth) every day. Problem List/Past Medical History Ongoing Morbid obesity Tobacco user Historical No qualifying data Allergies No Known Medication Allergies Social History Electronic Cigarette/Vaping Electronic Cigarette Use: Use, within last 90 days. Type: Nicotine infused. Tobacco Current everyday tobacco user Tobacco Use:. Diagnostic Results xray - subcutaneous calcifications pretibial space, no metallic foreign body 5:00 AM Lab Results CBC and Differential?? LATEST RESULTS?? WBC?? 08/28/24 04:10?? 13.8 ??High?? RBC?? 08/28/24 04:10?? 4.90?? Hgb?? 08/28/24 04:10?? 14.2?? Hct?? 08/28/24 04:10?? 41.5?? MCV?? 08/28/24 04:10?? 84.7?? MCH?? 08/28/24 04:10?? 29.0?? MCHC?? 08/28/24 04:10?? 34.2?? RDW-CV?? 08/28/24 04:10?? 13.2?? Platelets?? 08/28/24 04:10?? 360?? MPV?? 08/28/24 04:10?? 6.6 ??Low?? Neutro Auto?? 08/28/24 04:10?? 78.3 ??High?? Lymph Auto?? 08/28/24 04:10?? 13.2 ??Low?? Carter Auto?? 08/28/24 04:10?? 8.1?? Eos, Auto?? 08/28/24 04:10?? 0.20?? Basophil Auto?? 08/28/24 04:10?? 0.2?? Neutro Absolute?? 08/28/24 04:10?? 10.8 ??High?? Lymph Absolute?? 08/28/24 04:10?? 1.8?? Carter Absolute?? 08/28/24 04:10?? 1.1 ??High?? Eos Absolute?? 08/28/24 04:10?? 0.0?? Baso Absolute?? 08/28/24 04:10?? 0.0? Miscellaneous Hematology?? LATEST RESULTS?? ESR, Westergren?? 08/28/24 04:10?? 47 ??High? Routine Chemistry?? LATEST RESULTS?? Sodium Level?? 08/28/24 04:10?? 132 ??Low?? Potassium Level?? 08/28/24 04:10?? 3.6?? Chloride Level?? 08/28/24 04:10?? 97 ??Low?? CO2?? 08/28/24 04:10?? 26?? Alk Phos?? 08/28/24 04:10?? 67?? AST?? 08/28/24 04:10?? 11 ??Low?? ALT?? 08/28/24 04:10?? 32?? BUN?? 08/28/24 04:10?? 7?? Glucose Level?? 08/28/24 04:10?? 349 ??High?? Creatinine Level?? 08/28/24 04:10?? 0.80?? BUN/Creat Ratio?? 08/28/24 04:10?? 8.8?? eGFR CKD-EPI?? 08/28/24 04:10?? 100?? Calcium Level?? 08/28/24 04:10?? 9.1?? Protein Total?? 08/28/24 04:10?? 7.5?? Albumin Level?? 08/28/24 04:10?? 3.8?? Globulin?? 08/28/24 04:10?? 3.7 ??High?? A/G Ratio?? 08/28/24 04:10?? 1.0?? Bilirubin Total?? 08/28/24 04:10?? 0.6?? Anion Gap?? 08/28/24 04:10?? 9.0?? Lactic Acid Lvl?? 08/28/24 04:10?? 1.5?? Osmolality?? 08/28/24 04:10?? 276?? CRP?? 08/28/24 04:10?? 149.2 ??High? Timed Urine Chemistry?? LATEST RESULTS?? Estimated Creatinine Clearance?? 08/28/24 04:57?? 147.48? Electronically Signed on 08/28/2024 06:14 EST Molina MD Harjit History and physical note * Cat Sullivan APRN: PERFORM, MODIFY Event Display: History and Physical Authored Date: [id number] RAVINDRA JONES :1990 Age:34 years Sex:Female Visit Date:08/28/2024 Chief Complaint 2 days ago pt ??was cleaning with metal sponge and got a few open wounds on right salguero that have progressed. RLE is swollen, warm to the touch, painful. Started antibx yesterday from [facility], here due to increased pain. No OTC medications taken, med hx DM 2. History of Present Illness 34-year-old poorly controlled type II diabetic presents to the??ED with increasing pain, redness, and swelling in her right leg. She states she was on her hand and knees cleaning with a steel wool pad and got some open wounds and some metallic foreign bodies in the right pretibial region a couple of days ago, developed increasing redness and swelling to her right pretibial area. She was seen at [facility], where an ultrasound revealed a small metallic foreign body that was removed. She states she removed more foreign bodies when she got home, using a tweezer washed with witch lauro. She was discharged on Keflex and Bactrim, for which she reports taking 3 doses.? She states she has increased pain in the right leg. She denies fevers/chills. She denies IVDU, tick/spider bite. Denies any chest pain or breathing difficulty. ?? She did have recent foreign body removed by [facility] and herself, as previously noted.? She denies any history of MRSA or prior cellulitis.? She endorses vaping, occasional cannabis, and occasional cocaine, which she used very recently. Shedenies??injecting any substances. I am scared of needles. This was observed with crying and whimpering during lab draw. ? She was diagnosed with type II diabetes 7 years ago. She was on metformin, which she stopped because it made her feel ill. She was on Ozempic last year, but became depressed and stopped taking it. She has never been on insulin or any other diabetic agents.? In the ED: She is mildly tachycardic at 102. Afebrile. Normotensive. No hypoxia. ?? Labs reveal leukocytosis 13.9, BG 349, sodium 132 that corrects to 136. Elevated??CRP 149, and ESR 47. No anion gap. Normal bicarb. Normal lactic acid. ?? MRSA swab negative. + MSSA. ?? XR right leg is pending. ?? She was given ceftriaxone 2gm IV.? Review of Systems Constitutional: No fevers or chills. No unintentional weight loss Eye: No visual disturbances ENNT: No ear pain or nasal congestion. No stiff neck. No sore throat Respiratory: No shortness of breath??or??cough Cardiovascular: No chest pain, palpitations??or syncope Gastrointestinal: No abdominal pain, nausea,??vomiting, or anorexia. No diarrhea or constipation. No dark or bloody stools. Genitourinary: No hematuria, burning or??frequency Dante/Lymph: No bruising tendency.??No swollen lymph glands Endocrine: No excessive thirst/hunger. No heat/cold intolerance Musculoskeletal: Right salguero pain, redness and swelling. Motor and sensory intact. Integumentary: Right salguero redness and swelling. Neurologic: No confusion. No speech/swallow difficulty. No limb weakness/paralysis Psychiatric: No anxiety. No depression. No suicide/homicide ideation ?? Physical Exam Vitals & Measurements T:??37.7?C ??(Oral)?? TMIN:??36.7?C ??(Oral)?? TMAX:??37.7?C ??(Oral)?? HR:??94??(Monitored)?? RR:??18?? BP:??140/74?? SpO2:??98%?? HT:??150??cm?? WT:??93.4??kg?? BMI:??41.51?? Pain Score:??7?? O2 Therapy:??Room air?? General: Alert and oriented, in no acute distress Eye: PERRL. EOMI. Normal conjunctiva. No scleral icterus HENT: Normocephalic. Moist oral mucosa Neck: Supple, non-tender. No carotid bruits, No JVD. No lymphadenopathy Lungs: Clear to auscultation. Non-labored respirations Heart: Normal rate. Regular rhythm. No murmur. No rub, gallop, S3 or S4 Peripheral: Pulses 3+ and symmetric. Cap refill < 3 secs.??No edema. No calf tenderness Abdomen: Soft, non-tender, normal bowel sounds. No??rebound, guarding, or masses. No CVAT. Musculoskeletal: Normal range of motion and strength. Normal cap refill. Normal sensation.??Compartments seem soft.?? Skin: [place], warm, dry.??Right salguero warm, with??redness and swelling.??No bullae. No fluctuance. No purulence.?? Neurologic: Awake, alert and oriented X4, CN II-XII intact, motor and sensory intact Psychiatric: Cooperative, appropriate mood and affect ?? Assessment/Plan 1.??Sepsis??A41.9 Not severe??sepsis; Leukocytosis??13.9, normal??lactic, hemodynamically??stable, no end organ??dysfunction. Meets criteria with tachycardia and + source.?? LR 1L bolus ?? 2.??Cellulitis of right leg without foot??L03.115 MRSA negative, though literature notes??this to be a??high negative predictor, I will cover her with Vancomycin with her risk factors of uncontrolled diabetes, questionable IV drug use, and self, at home removal of foreign bodies. + MSSA.?? Cefazolin 2gm IV every 8 hrs Vancomycin, pharmacy to dose initial and subsequent doses CRP 146 with leukocytosis, without fever. Blood cultures x2 CT angio right leg U/S right leg Check CK ?? 3.??DM (diabetes mellitus), type 2, uncontrolled, with hyperosmolarity??E11.00 Consistent carb diet. SSI. Check A1c. Not on any antidiabetic agents. Diabetic education. Query starting on Lisinopril for renal protection. I will defer this to attending or O/P follow up.? 4.??Hyperglycemia??R73.9 No evidence of DKA. Normal anion gap. Normal bicarb. 1L bolus-then reassess BG, and cover per SSI. Started with low dose given insulin naivete? Full code ? DVT prophy - Lovenox ? Orders: acetaminophen, 1,000 mg = 100 mL, IV Piggyback, Injection, every 6 hr, PRN pain, Administer over: 15 minutes, First Dose: 08/28/24 5:44:00 EST, Routine, 400 mL/hr ceFAZolin, 1 g = 50 mL, IV Piggyback, Injection, every 8 hr, Antibiotic Indication Cellulitis, First Dose: 08/28/24 8:00:00 EST, Routine docusate-senna 50 mg-8.6 mg oral tablet, 1 tab, Oral, Tab, BID, PRN constipation, First Dose: 08/28/24 5:44:00 EST, Routine Lovenox, 40 mg = 0.4 mL, Subcutaneous, Injection, Daily, First Dose: 08/28/24 9:00:00 EST, Routine glucagon, 1 mg = 1 EA, Subcutaneous, Injection, As Directed, First Dose: 08/28/24 6:21:00 EST, Physician Stop, Routine Dextrose 50% injection, 25 g = 50 mL, IV Push, Injection, As Directed, First Dose: 08/28/24 6:21:00EST, Physician Stop, Routine insulin aspart Sliding Scale - Low Dose, Insulin Aspart Sliding Scale See Comments, Subcutaneous, Injection, AC, First Dose: 08/28/24 7:30:00 EST, Routine lactobacillus acidophilus oral capsule, 1 cap, Oral, Cap, BID, First Dose: 08/28/24 9:00:00 EST, Routine, Acidophilus melatonin 3 mg oral tablet, 6 mg = 2 tab, Oral, Tab, every night at bedtime, PRN insomnia, First Dose: 08/28/24 5:44:00 EST, Routine ondansetron, 4 mg = 2 mL, IV Push, Vial, every 6 hr, PRN nausea/vomiting, First Dose: 08/28/24 5:44:00 EST, Routine, zofran MiraLax, 17 g = 1 packets, Oral, Powder-Recon, Daily, PRN constipation, First Dose: 08/28/24 5:44:00 EST, Routine vancomycin, 2,250 mg = 450 mL, IV Piggyback, Injection, Once, Antibiotic Indication Cellulitis, First Dose: 08/28/24 8:00:00 EST, Stop Date: 08/28/24 8:00:00 EST, Physician Stop, Routine vancomycin, 1,500 mg = 300 mL, IV Piggyback, Injection, Once, Antibiotic Indication Cellulitis, First Dose: 08/28/24 8:00:00 EST, Stop Date: 08/28/24 8:00:00 EST, Physician Stop, Routine Admission Home Meds Securement, 08/28/24 5:44:00 EST, Once, Stop date 08/28/24 5:44:00 EST, Check with Patient for home meds brought in and Secure in pharmacy or send home with their appropriate person. Basic Metabolic Panel, Blood, Routine, 08/28/24 5:45:00 EST, every morning, for 3 days, Lab Collect Blood Culture, Blood, Arm L, Expedite collect, RT - Routine, 08/28/24 5:44:00 EST, Once, Lab Collect, Print Label, [id number] Blood Culture, Blood, Arm R, Expedite collect, RT - Routine, 08/28/24 5:44:00 EST, Once, Lab Collect, Print Label, [id number] Blood Glucose Monitoring POC RE, 08/28/24 6:21:00 EST, AC & bedtime CBC w/ Diff, Blood, Routine, 08/28/24 5:45:00 EST, every morning, for 3 days, Lab Collect Creatine Kinase, Blood, Routine, 08/28/24 5:44:00 EST, Once, Lab Collect CT Angio Lower Extremity Right, 08/28/24 5:44:00 EST, Routine, Reason: erythema, swelling, pain, Transport Mode: Wheelchair Diet Order, 08/28/24 6:18:00 EST, Consistent Carbohydrates Drug Screen Urine, Urine, Routine Collect, 08/28/24 7:36:00 EST, Once, Nurse collect, Print Label Hgb A1c, Blood, Routine, 08/28/24 6:18:00 EST, Once, Lab Collect Patient Condition, 08/28/24 5:44:00 EST, Condition Good/ Stable PSO Admit to Inpatient, [facility], Inpatient, Heron Carver MD, 08/28/24 5:35:00 EST, 08/28/24 5:35:00 EST, 08/28/24 5:35:00 EST, Less than 96 hours Resuscitation Status, 08/28/24 5:44:00 EST, Full Code Up ad Angie, 08/28/24 5:44:00 EST, Constant Order, at nurse's discretion, 08/28/24 5:44:00 EST Urinalysis with Micro if Indicated and Culture if Indicated, Urine, Routine Collect, 08/28/24 7:36:00 EST, Once, Nurse collect, Print Label US Lower Ext Venous Duplex Right, 08/29/24 5:44:00 EST, Routine, Reason: erythema, swelling, pain, Transport Mode: Wheelchair, 08/28/24 7:01:24 EST, 08/28/24 7:01:24 EST Vital Signs, 08/28/24 5:44:00 EST, every 4 hr Problem List/Past Medical History Ongoing Morbid obesity Tobacco user Historical No qualifying data Medications Inpatient acetaminophen, 1000 mg= 100 mL, IV Piggyback, every 6 hr, PRN ceFAZolin, 1 g= 50 mL, IV Piggyback, every 8 hr Dextrose 50% injection, 25 g= 50 mL, IV Push, As Directed docusate-senna 50 mg-8.6 mg oral tablet, 1 tab, Oral, BID, PRN glucagon, 1 mg= 1 EA, Subcutaneous, As Directed insulin aspart Sliding Scale - Low Dose, Insulin Aspart Sliding Scale See Comments, Subcutaneous, AC lactobacillus acidophilus oral capsule, 1 cap, Oral, BID Lovenox, 40 mg= 0.4 mL, Subcutaneous, Daily melatonin 3 mg oral tablet, 6 mg= 2 tab, Oral, every night at bedtime, PRN MiraLax, 17 g= 1 packets, Oral, Daily, PRN ondansetron, 4 mg= 2 mL, IV Push, every 6 hr, PRN vancomycin, 1500 mg= 300 mL, IV Piggyback, Once vancomycin, 2250 mg= 450 mL, IV Piggyback, Once Home Albuterol (Eqv-ProAir HFA) 90 mcg/inh inhalation aerosol cephalexin 500 mg oral capsule, 500 mg= 1 cap, Oral, QID gabapentin 300 mg oral capsule, 300 mg= 1 cap, Oral, BID ipratropium-albuterol 0.5 mg-2.5 mg/3 mL inhalation solution, 3 mL, Nebulized Inhalation, QID lamoTRIgine 25 mg oral tablet, 25 mg= 1 tab, Oral, Daily metFORMIN 500 mg oral tablet, 500 mg= 1 tab, Oral, Daily prazosin 1 mg oral capsule, 1 mg= 1 cap, Oral, every night at bedtime sulfamethoxazole-trimethoprim 800 mg-160 mg oral tablet, 1 tab, Oral, Daily valACYclovir 1 g oral tablet, 1 g= 1 tab, Oral, BID Allergies No Known Medication Allergies Social History Electronic Cigarette/Vaping Electronic Cigarette Use: Use, within last 90 days. Type: Nicotine infused. Tobacco Current everyday tobacco user Tobacco Use:. Lab Results Test Name Test Result Date/Time WBC 13.8 K/mcL 08/28/2024 04:10 EST RBC 4.90 Million/mcL 08/28/2024 04:10 EST Hgb 14.2 g/dL 08/28/2024 04:10 EST Hct 41.5 % 08/28/2024 04:10 EST MCV 84.7 fL 08/28/2024 04:10 EST MCH 29.0 pg 08/28/2024 04:10 EST MCHC 34.2 g/dL 08/28/2024 04:10 EST RDW-CV 13.2 % 08/28/2024 04:10 EST Platelets 360 K/mcL 08/28/2024 04:10 EST MPV 6.6 fL 08/28/2024 04:10 EST Neutro Auto 78.3 % 08/28/2024 04:10 EST Lymph Auto 13.2 % 08/28/2024 04:10 EST Carter Auto 8.1 % 08/28/2024 04:10 EST Eos, Auto 0.20 % 08/28/2024 04:10 EST Basophil Auto 0.2 % 08/28/2024 04:10 EST Neutro Absolute 10.8 K/mcL 08/28/2024 04:10 EST Lymph Absolute 1.8 K/mcL 08/28/2024 04:10 EST Carter Absolute 1.1 K/mcL 08/28/2024 04:10 EST Eos Absolute 0.0 K/mcL 08/28/2024 04:10 EST Baso Absolute 0.0 K/mcL 08/28/2024 04:10 EST ESR, Westergren 47 mm/hr 08/28/2024 04:10 EST Sodium Level 132 mmol/L 08/28/2024 04:10 EST Potassium Level 3.6 mmol/L 08/28/2024 04:10 EST Chloride Level 97 mmol/L 08/28/2024 04:10 EST CO2 26 mmol/L 08/28/2024 04:10 EST Alk Phos 67 IntlUnit/L 08/28/2024 04:10 EST AST 11 IntlUnit/L 08/28/2024 04:10 EST ALT 32 IntlUnit/L 08/28/2024 04:10 EST BUN 7 mg/dL 08/28/2024 04:10 EST Glucose Level 349 mg/dL 08/28/2024 04:10 EST Creatinine Level 0.80 mg/dL 08/28/2024 04:10 EST BUN/Creat Ratio 8.8 08/28/2024 04:10 EST eGFR CKD-EPI 100 mL/min/1.73 m2 08/28/2024 04:10 EST Calcium Level 9.1 mg/dL 08/28/2024 04:10 EST Protein Total 7.5 g/dL 08/28/2024 04:10 EST Albumin Level 3.8 g/dL 08/28/2024 04:10 EST Globulin 3.7 g/dL 08/28/2024 04:10 EST A/G Ratio 1.0 g/dL 08/28/2024 04:10 EST Bilirubin Total 0.6 mg/dL 08/28/2024 04:10 EST Anion Gap 9.0 08/28/2024 04:10 EST Lactic Acid Lvl 1.5 mmol/L 08/28/2024 04:10 EST Osmolality 276 mOsm/kg 08/28/2024 04:10 EST CRP 149.2 mg/L 08/28/2024 04:10 EST Glucose POC 353 08/28/2024 07:40 EST Estimated Creatinine Clearance 147.48 mL/min 08/28/2024 04:57 EST MRSA Screen -GeneXpert Neg-GeneXPert 08/28/2024 04:52 EST Staphylococcus aureus Screen -GeneXpert Pos-GeneXPert 08/28/2024 04:52 EST Electronically Signed on 08/28/2024 08:10 EST Cat Sullivan APRN Discharge summary * Heron Carver MD: PERFORM Event Display: Discharge Summary Authored Date: [id number] RAVINDRA JONES :1990 Age:34 years Sex:Female Visit Date:08/28/2024 Hospital Course This is a 34-year-old female who meeting for the first time. She is not from our area. ?? She has a history of obesity with a BMI of 41.51. ??She has a history??of substance abuse.?? She was positive for fentanyl and cocaine on this visit. ?? More notably to me the patient has a history of medication noncompliance.?? This is quite concerning. She has diabetes with a hemoglobin A1c over 9,??she has not followed up with this. ??She said Ozempic made her depressed, metformin made her nauseous, but has not followed up and has been on any medications. ?? Further, when I spoke to the patient about such, I offered the electrical engineering drafting officer to come up. ??The patient refused. She also refused IV fluid on this visit. ?? Her blood sugars have been quite elevated??and she refuses insulin,??she really refuses to??consider any medication.?She refuses to??undergo glucose monitoring she did compromise and said she had had glipizide in the past that worked.?? She was unsure of the dose but was sure was not 2.5 mg.?? Iwill start her on glipizide??5 mg??ER daily. ??I do not think this will be successful??but at this??very high blood sugars and very low dose I see a low chance of hypoglycemia??and at least we will get the patient??some hope that her hyperglycemia can be mildly controlled. I think in this poor situation of this noncompliant patient??weighed the risk and benefits and hopefully a small dose of medication??will??help??offset??and delay??some of the serious sequelae??that she could have. I spoken to her about the dangers of such. ?? The patient was using we will scrubbing??brush??and she had pieces that??got stuck in her skin in her right lower extremity.?? This was a week before admission. She subsequently started to notice erythema in the right lower extremity with some mild edema.?? She denies any significant constitutional symptoms??but did feel weak as well. ??She went to a local emergency room.?? In the emergency room??the patient was diagnosed with cellulitis. ??She had a right lower??quadrant ultrasound that was negative for DVT. She was sent home with Bactrim??and Keflex. ?? She felt the area was getting worse and came to our emergency room for evaluation. ?? In the emergency room she had mild leukocytosis and mild tachycardia without fever or significant signs of sepsis at the time. We brought the patient in and??started her on IV antibiotics.. ?? We did a CT??with contrast of the right lower extremity which showed...... ? (08/28/2024 07:[address] Angio Lower Extremity Right) IMPRESSION:?? Generalized subcutaneous edema seen in the right lower extremity consistent?? with cellulitis or venous stasis. No abscess.?? [1] ? We further evaluated the patient with a DVT ultrasound of her own which was negative. ?? The patient wanted to leave AGAINST MEDICAL ADVICE last night??and that seems to be the plan but she eventually settled down and stated she would leave in the morning. ?? Currently her heart rate is 71,??her blood cultures are no growth to date. ??Her Tmax is 37.2. ?? She will go home and complete the course of antibiotics prescribed for the outpatient setting and we have scheduled outpatient follow-up??in 4 days to assure??as well as we could compliance??resolution of cellulitis. Physical Exam Vitals & Measurements T:??37.2?C ??(Temporal Artery)?? TMIN:??36.1?C ??(Temporal Artery)?? TMAX:??37.5?C ??(Temporal Artery)?? HR:??71??(Peripheral)?? RR:??18?? BP:??132/84?? SpO2:??98%?? HT:??150??cm?? WT:??93.4??kg?? BMI:??41.51?? Pain Score:??3?? O2 Therapy:??Room air?? BSA:??1.97?? General: Oriented x 4, obese..?? HENT:??Normocephalic, clear tympanic membranes, normal hearing, moist oral mucosa, no scleral icterus, no sinus tenderness.?? Lungs:??Clear to auscultation and percussion, non-labored respiration.?? Heart: Regular rate and rhythm, no murmurs gallops or rubs.. Abdomen:??Soft, non-tender, non-distended, normal bowel sounds, no masses.?? Musculoskeletal:??Normal range of motion and strength, no tenderness or swelling. Skin: Right lower extremity erythema is already improving from the demarcated lines, less red, lesswarm. ??She does have 3 areas??of old??lesions that are now??healing and scabbing??quite well??without any surrounding??erythema, inflammation,??pain, pus..?They do not appear necrostic. these areon the right shoulder, right hip and left lower extremity. Neurologic: He has full sensation, strength, reflexes in her right lower extremity. ??She has full sensation in her lower extremities and I do not see any obvious signs of diabetic??neuropathy. Social History Alcohol Never Electronic Cigarette/Vaping Electronic Cigarette Use: Use, within last 90 days. Type: Nicotine infused. Substance Use Cocaine, 1-2 times per month Tobacco Current everyday tobacco user Tobacco Use:. Lab Results Labs??(Last four charted values) WBC ?8.4?(AUG 29)?H??13.8?(AUG 28) Hgb ?13.6?(AUG 29)?14.2?(AUG 28) Hct ?39.9?(AUG 29)?41.5?(AUG 28) Plt ?350?(AUG 29)?360?(AUG 28) Na ?L??132?(AUG 28) K ?3.6?(AUG 28) CO2 ?26?(AUG 28) Cr ?0.80?(AUG 28) BUN ?7?(AUG 28) Glucose Random ?H??349?(AUG 28) Discharge Plan 1.??Non-compliance??Z91.199 This is a major issue and I worry very much for the patient's safety. ??I will do my best to assureher safety??with??some effort??to lower her blood sugars??but I cannot be too aggressive as hypoglycemia would be a concern. ??And??an effort??in conversation with the patient about risk and benefitsand scheduling follow-up for her in 4 days. 2.??Cellulitis of right leg without foot??L03.115 No fever, no??Tachycardia, no leukocytosis. ??Imaging negative as above.?? Course of antibiotics with PCP follow-up. 3.??Sepsis??A41.9 She is not septic. ??She has no fever, no tachycardia, no leukocytosis. 4.??DM (diabetes mellitus), type 2, uncontrolled, with hyperosmolarity??E11.00 Highly concerning, hemoglobin A1c over 9, blood sugars have been over??300 at some point. ??She hasnot had??signs of DKA or acidosis. ??She is only willing to take glipizide. ??Although with those high blood sugars 5 mg may be a low starting point I cannot start any higher for concerns of hypoglycemia??but I hope even at this dose there will be some??potential reduction of the dangerous sequelaeshe could have with her noncompliance and not interested in such.?? I have weighed the risk and benefits of such. 5.??Spider bite??T63.301A Patient states that she had a??bite from a house that was infested with??which she says are common brown or possible yellow [place] spiders. ??This was 2 weeks ago??and she says the area has healed well. ??Without infection.?? She is on antibiotics this although I am concerned she will not be compliant. ??The areas do not look neither infected nor necrotic and look like they are??healing but they should be monitored for??those said signs??in the outpatient setting. 6.??Substance abuse??F19.10 This is quite concerning. ??I spoke to the patient about such. ??She is precontemplative. Orders: glipiZIDE 5 mg oral tablet, extended release, 5 mg = 1 tab, Oral, Daily, # 30 tab, 0 Refill(s), Pharmacy: [facility], 150, cm, 08/28/24 12:47:00 EST, Height, 93.4, kg, 08/28/24 4:04:00 EST, Weight Dosing Discharge Patient, 08/28/24 19:02:00 EST, Home Independently, The patient left AMA Discharge Patient, 08/29/24 11:29:00 EST All Diagnoses This Visit Non-compliance Cellulitis of right leg without foot Sepsis DM (diabetes mellitus), type 2, uncontrolled, with hyperosmolarity Spider bite Substance abuse Patient Discharge Condition Stable but concerning with the patient's compliance and??lack of??desire to address her??medical issues. Discharge Disposition Complete course of antibiotics, PCP follow-up. ?? Time??spent??on patient care today is 40 minutes. Patient Education Type 2 Diabetes Mellitus, Self-Care, Adult, [id number] Diabetes Mellitus and Skin Care Hyperglycemia, [id number] Hemoglobin A1C Test Cellulitis, Adult, [id number] Follow Up With When Contact Information Follow up with primary care provider 09/02/2024 01:00 PM EST Additional Instructions: [facility] with Dimitrios Mak??09/02/24 at 1:30pm Medication Reconciliation New Prescription glipiZIDE (glipiZIDE 5 mg oral tablet, extended release)1 tab Oral (given by mouth) every day. Refills: 0. ?? Unchanged albuterol (Albuterol (Eqv-ProAir HFA) 90 mcg/inh inhalation aerosol)2 Inhalation Inhale (breathe in) every 6 hours as needed as needed for shortness of breath or wheezing. ?? cephalexin (cephalexin 500 mg oral capsule)1 Capsules Oral (given by mouth) 4 times a day for 7 Days. ?? ipratropium-albuterol (ipratropium-albuterol 0.5 mg-2.5 mg/3 mL inhalation solution)3 Milliliters Nebulized inhalation (inhale using nebulizer) 4 times a day as needed as needed for shortness of breath or wheezing. ?? sulfamethoxazole-trimethoprim (sulfamethoxazole-trimethoprim 800 mg-160 mg oral tablet)1 tab Oral (given by mouth) every day. ?? Discontinued gabapentin (gabapentin 300 mg oral capsule)1 Capsules Oral (given by mouth) 2 times a day. ?? lamoTRIgine (lamoTRIgine 25 mg oral tablet)1 tab Oral (given by mouth) every day. ?? metFORMIN (metFORMIN 500 mg oral tablet)1 tab Oral (given by mouth) every day. with meals. ?? prazosin (prazosin 1 mg oral capsule)1 Capsules Oral (given by mouth) every night at bedtime. ?? valACYclovir (valACYclovir 1 g oral tablet)1 tab Oral (given by mouth) 2 times a day. [1]??CT Angio Lower Extremity Right; Amanda Parada MD 08/28/2024 07:00 EST Electronically Signed on 08/29/2024 23:32 EST Heron Carver MD Insurance Providers Guarantor name: RAVINDRA JONES Health Plan Information #: 1 Payer: [place] Member Number: [id number] Policy Number: NA Group Number: [place] Health Plan Information #: 2 Payer: SELF PAY Member Number: NA Policy Number: [place] Group Number: [place] Health Plan Information #: 3 Payer: [place] Member Number: [id number] Policy Number: [place] Group Number: NA
--- OUTSIDE RECORDS SUMMARY | 2024-09-29 18:05 | XMS_ITS | Encounter Summary ---
Author Organization [facility] [place] [address] Care Team Providers Care Flow Floor Attendant Name Role Phone None Primary Care Provider Unavailabl e Encounter Details Date Type Department Care Team ([facility] st Contact Info) Description 09/30/2017 Telephone Obstetrics and Gynecology at [facility] [place] [id number] Swapna Crawford RN Social History Tobacco Use [...] on filedocumented in this encounter Care Teams Flow Floor Attendant Relationship Specialty Start Date End Date None None PCP - General 05/29/17 09/02/21 documented as of this encounter
--- OUTSIDE RECORDS SUMMARY | 2024-09-29 18:05 | XMS_ITS | Encounter Summary ---
Author Organization [facility] Adithya [place]ennifer [place] [address] Care Team Providers Care Molding Machine Operator Name Role Phone None Primary Care Provider Unavailabl e Encounter Details Date Type Department Care Team ([facility] st Contact Info) Description 01/27/2019 7:10 PM EDT Ancillary Procedure Radiology Library at [facility] [address] [place] [phone] Reji Perez APRN Social History Tobacco Use [...] APRN IMG FILM LIBRARY ORDERABLES ANNALISE Diez [place] documented in this encounter Visit Diagnoses Not on filedocumented in this encounter Care Teams Molding Machine Operator Relationship Specialty Start Date End Date None None PCP - General 05/29/17 09/02/21 documented as of this encounter
--- OUTSIDE RECORDS SUMMARY | 2024-09-29 18:05 | XMS_ITS | Encounter Summary ---
Author Organization [facility] [place] [address] Care Team Providers Care Visiting Housekeeper Name Role Phone None Primary Care Provider Unavailabl e Reason for Visit * Reason Comments Care Encounter Details Date Type Department Care Team (Latest Contact Info) Description 10/27/2017 2:15 PM EST Visit Obstetrics [place] [address] Li Sepulveda MD [facility] [address] OB[place] [address] History of gestational diabetes; follow-up Social History [...] REMOVE Please contact the Blood Bank at [phone] for questions. Objective: BP 118/70 Pulse 93 [...] follow-up documented in this encounter Care Teams Visiting Housekeeper Relationship Specialty Start Date End Date None None PCP - General 05/29/17 09/02/21 documented as of this encounter
--- OUTSIDE RECORDS SUMMARY | 2024-09-29 18:05 | XMS_ITS | Encounter Summary ---
Author Organization [facility] [place] [address] Care Team Providers Care Station Air Traffic Control Specialist Name Role Phone None Primary Care [...] Continue to follow. Denise Monteiro RN, IBCLC [facility] Services documented in this encounter Plan of Treatment Not on file documented as of this encounter Visit Diagnoses Not on filedocumented in this encounter Care Teams Station Air Traffic Control Specialist Relationship Specialty Start Date End Date None None PCP - General 05/29/17 09/02/21 documented as of this encounter
--- OUTSIDE RECORDS SUMMARY | 2024-09-29 18:05 | XMS_ITS | Encounter Summary ---
Author Organization [facility] [place] [address] Care Team Providers Care Acid Correction Hand Name Role Phone None Primary Care Provider Unavailabl e Encounter Details Date Type Department Care Team ([facility] st Contact Info) Description 12/02/2018 Ancillary Procedure Radiology Library at [facility] [place] [phone] Reji Perez APRN Social History Tobacco Use [...] Reji Perez APRN IMG FILM LIBRARY ORDERABLES [facility] [place] documented in this encounter Visit Diagnoses Not on filedocumented in this encounter Care Teams Acid Correction Hand Relationship Specialty Start Date End Date None None PCP - General 05/29/17 09/02/21 documented as of this encounter
--- OUTSIDE RECORDS SUMMARY | 2024-09-29 18:06 | XMS_ITS | Encounter Summary ---
Author Organization [facility] Address [facility] [place] [address] Care Team Providers Care Acid Regenerator Name Role Phone None Primary Care Provider Unavailabl e Reason for Visit * Auth/Cert Specialty Diagnoses / Procedures Referred By Jose Enrique velazco Referred To Contact Diagnoses Vasa previa Procedures JUDSON IPI Referral ID Status Reason Start Date Expiration Date Visits Re quested Visits Authorized [id number] 1 1 Encounter Details Date Type Department Care Team (Latest Contact Info) Description 07/28/2017 2:52 PM EST - 09/15/2017 6:34 PM [place] [address] Li Sepulveda MD [facility] [address] [place] [address] Arturo Waterman MD [facility] [address] [place] [address] Vasa previa, single or unspecified fetus Discharge [...] Care Provider: Dr. Isela Blunt Referring Hospital: [facility] Follow-up Recommendations for Providers: -- Follow up with MFM provider on 09/17/17 -- 2 week depression screen -- 6 week visit with 2hr GTT -- Final pathology Inpatient Provider Contact Information: [facility] DOWNSTREAM BIOMANUFACTURING TECHNICIAN Department, Discharge Diagnoses (Hospital Problems) and Secondary [...] was given a rescue course of steroids [id number] (complete on 08/20). Insulin was titrated up [...] within normal limits. She was discharged to [facility] in good condition and good spirits [...] Information for the patient's : Michele Lake [[id number]] INFORMATION Baby Jess Lake 09/11/2017 11:58 AM by Lower Segment Transverse Sex: female Gestational Age: 34w0d [place] Measurements: Weight: 4 lb 7.8 oz (2035 [...] REMOVE Please contact the Blood Bank at [phone] for questions. Immunizations Given this Hospitalization: Immunization [...] Nausea. 8 mg Refills: 0 vitamin with kvlkshih-Qj-Xwsh-FA Tab Take 1 tablet by mouth daily. [...] Depression Contact Numbers: If you see an scrubber system attendant call: [phone] 9 am - 5 pm, after 5 pm If you see a manager of product call: [phone] all hours If you see a family practitioner call: [phone] all hours If you were transferred to our institution for delivery and cannot reach your local OB provider, call the scrubber system attendant numbers. General Instructions Nursing Inpatient Progress C [...] this in detail. Call your doctor or manager of product for: ??? Fever more than 100.5 ??? [...] follow up appointment. You may call the [facility] at any time for guidance or for answers to questions that come up prior to you follow up appointment. Your [facility] Provider can be reached during office hours at ??? Midwives ??? Obstetricians ??? [facility] Follow-up Clinic AFTER OFFICE HOURS for the scrubber system attendant or manager of product tactical air control party manager Provider electronic signature confirms that discharge instructions were reviewed with the patient. A copy was printed and given to the patient. Future Appointments and Orders Future Appointments Provider Department Dept Phone 09/17/2017 4:15 PM Emanuel Barrett MD [facility] [phone] 10/23/2017 1:00 PM Li Sepulveda MD [facility] [phone] Future Orders Complete By Expires Durable Medical Equipment Order [[id number] Custom] As directed Process Instructions: Scheduling Instructions: Comments: Pam Lake 1990 [address] [facility] [address] [facility] [address] (home) [facility] intake- #[phone] fax [phone] [place] Office- [phone] RX: Hospital Grade Electric Breast Pump- Lactina [...] breast pump Size requested: Vendor Name/Contact information: [employer] Discharge References/Attachments HYSTERECTOMY: ABDOMINAL: POST-OP (AUSTRIAN) GRIEVING (ACTUAL/ANTICIPATED) (AUSTRIAN) documented in this encounter Discharge Instructions * [...] this in detail. Call your doctor or manager of product for: ??? Fever more than 100.5 ??? [...] follow up appointment. You may call the [facility] at any time for guidance or for answers to questions that come up prior to you follow up appointment. Your [facility] Provider can be reached during office hours at ??? Midwives ??? Obstetricians ??? [facility] Follow-up Clinic AFTER OFFICE HOURS for the scrubber system attendant or manager of product tactical air control party manager Provider electronic signature confirms that discharge [...] Depression Contact Numbers: If you see an scrubber system attendant call: [phone] 9 am - 5 pm, after 5 pm If you see a manager of product call: [phone] all hours If you see a family practitioner call: [phone] all hours If you were transferred to our institution for delivery and cannot reach your local OB provider, call the scrubber system attendant numbers. * Attachments The following attachments cannot be sent through Care Everywhere. * HYSTERECTOMY: ABDOMINAL: POST-OP (AUSTRIAN) * GRIEVING (ACTUAL/ANTICIPATED) (AUSTRIAN) documented in this encounter Medications at Time [...] 20 tablet 3 09/14/2017 10/27/2017 vitamin with tlpnujzm-Ck-Vbkn-FA Tablet Take 1 tablet by mouth daily. [...] about that. She plans to stay at [facility] after she's been d/c. Understandably, pt reports she has not been able to emotionally process the event of delivery and her baby staying in the ICN yet. Plan: Will arrange for pt to receive gas card. DIEGO Ruiz Pager: [phone] * Pam Valenzuela RN - 09/14/2017 7:43 [...] loss. Pam back to [facility] to see babe. Transported by this RN, [...] 09/12/2017 12:00 PM EST Pam called from [facility], ready to return for a nap. Escorted [...] L hand. Taken to [facility], via wheelchair, by this RN. Instructed [...] The patient complains of incision pain, states CNC WOOD LATHE OPERATOR has been helping. Pumping for infant nutrition [...] ?? Continue routine care. Will transition from CNC WOOD LATHE OPERATOR to po pain medications. Discontinue amador [...] given 2 mg of IV dilaudid and CNC WOOD LATHE OPERATOR initiated to bring pain down to [...] Arturo Waterman MD Stephanjohn Lopez Jaya [address] [place] [phone] (home) [facility] intake- #[phone] fax [phone] [place] Office- [phone] RX: Hospital Grade Electric Breast Pump- Lactina Breast Pump Length of Need: 3 Months Purpose of Appliance: To Initiate and Maintain Medical Necessity: /Lactating Mother- Z39.1 Breast Engorgement relative to born at 34 gestation - BW 2.035 (4lb/8oz) P92.9 Feeding problem of , unspecified Premature in ICN from mother- P07.30 Prematurity Beto Stinson RN Intensive Care Nursery Manager Clinical ResearchRestaurant Server of Care Management Phone:# [phone] Beeper: #[phone] Fax: # [phone] * Yoly Cueva MD - 09/10/2017 4:25 [...] discussed on Multidisciplinary Rounds YOLY CUEVA MD Case Sealer PGY-4 08/30/2017 Associated attestation - Crow Vasquez [...] discussed on Multidisciplinary Rounds JHONATHAN ROBERTSON MD Case Sealer PGY-3 08/30/2017 Associated attestation - Crow Vasquez [...] discussed on Multidisciplinary Rounds JHONATHAN ROBERTSON MD Case Sealer PGY-3 08/30/2017 Associated attestation - Crow Vasquez [...] Note Office of Care Management Follow Up: JAVA SPRING DEVELOPER met with pt today at bedside to check in on her. Pt is very excited that she will be having herc/s on Thursday and has been talking about holding her baby and being able to meet her. JAVA SPRING DEVELOPER reminded went over [facility] again and let pt know she can use [employer] to get groceries during her [facility] [facility] stay. Plan: Arrange for breast pump after delivery and continue to provide support to pt. DIEGO Ruiz Pager: [phone] * Jhonathan Robertson MD - 09/07/2017 6:26 [...] discussed on Multidisciplinary Rounds JHONATHAN ROBERTSON MD Case Sealer PGY-3 08/30/2017 Associated attestation - Arturo Waterman [...] discussed on Multidisciplinary Rounds YOLY CUEVA MD Case Sealer PGY-4 08/30/2017 Associated attestation - Emanuel Barrett [...] discussed on Multidisciplinary Rounds EMERITA ROSARIO MD Case Sealer PGY3 08/30/2017 Associated attestation - Emanuel Barrett [...] discussed on Multidisciplinary Rounds JHONATHAN ROBERTSON MD Case Sealer PGY3 08/30/2017 Associated attestation - Crow Vasquez [...] discussed on Multidisciplinary Rounds JHONATHAN ROBERTSON MD Case Sealer PGY3 08/30/2017 Associated attestation - Emanuel Barrett [...] bleeding occurs ?? EMANUEL BARRETT MD * aKylen Gabriel MD - 09/03/2017 1:28 AM EST [...] discussed on Multidisciplinary Rounds JHONATHAN ROBERTSON MD Case Sealer PGY3 08/30/2017 Associated attestation - Emanuel Barrett [...] discussed on Multidisciplinary Rounds JHONATHAN ROBERTSON MD Case Sealer PGY3 08/30/2017 Associated attestation - Emanuel Barrett [...] Social Work Note Office of Care Management JAVA SPRING DEVELOPER met with pt at bedside to check in. Pt reports she is doing well and is still counting down thedays until baby is born. She seems to be in higher spirits the closer the due date is. Pt reports no needs as of now. Plan: F/u with pt next week or as needed. DIEGO Ruiz Pager: [phone] * Jhonathan Robertson MD - 08/31/2017 5:07 [...] discussed on Multidisciplinary Rounds JHONATHAN ROBERTSON MD Case Sealer PGY3 08/30/2017 Associated attestation - Emanuel Barrett [...] discussed on Multidisciplinary Rounds JHONATHAN ROBERTSON MD Case Sealer PGY3 08/30/2017 Associated attestation - Crow Vasquez [...] diabetes mellitus (GDM): diagnosed at 7 weeks fizhejyka47/06/2017 ??? Hospital-Previous section x 2 05/29/2017 Reason [...] for ordering her meals. Pt expressed to sign writer letterer or painter that she enjoys her current diet order [...] Gabriel MD - 08/27/2017 7:11 PM EST hot man Progress Note Presented to room to discuss [...] struggling with her stay on the [facility]. She feels like she is in long term and her mental health is impacted. I [...] 07/28/2017 Glucose Accord: Assessment & Plan: Pam Lkae is a 27 y.o. woman at 31w5d [...] Note Office of Care Management Follow Up: JAVA SPRING DEVELOPER met with pt at bedside to check in on her. Pt reports she is doing well and is excited that sheis getting closer to delivery date. She seems in higher spirits today than last week and reports she had somewhat of a relaxing New Year's Rosa. Plan: Deliver weekly gas card to pt and check in on her as needed. DIEGO Ruiz Pager: [phone] * Yoly Cueva MD - 08/25/2017 1:50 [...] swallowing. Nursing documentation notes 100% PO intake. Environmental Service Aide offered to have snacks sent between meals but pt declined stating she did not to waste them as she does not always eats them. Pt made joke with sign writer letterer or painter stating she wants unhealthyfoods between meals for [...] Note Office of Care Management Follow Up: JAVA SPRING DEVELOPER met with pt at bedside to f/u from yesterday's visit. Pt seems to have calmed down quite a bit from yesterday and was very agreeable to speaking with JAVA SPRING DEVELOPER. We talked about what the pt currently has control of in her life and how she feels about it. JAVA SPRING DEVELOPER also went over some CBT techniques that pt can use when she begins to feel overwhelmed. BIT referral was also made and someone will be coming to meet with pt. Plan: JAVA SPRING DEVELOPER will continue to follow pt for needs. DIEGO Ruiz Pager: [phone] * Desean Soto - 08/19/2017 7:16 AM [...] pressure, now resolved Subjective: Awoken from sleep. aPm reports she's feeling well this morning. She [...] Note Office of Care Management Follow Up: JAVA SPRING DEVELOPER met with pt at bedside. She was visibly upset and crying. Pt is emotionally distressed over notbeing able to see her children on a regular basis and not having the freedom to leave the hospital. Plan: JAVA SPRING DEVELOPER will put in BIT referral and provide pt with some relaxation tips and references. DIEGO Ruiz Pager: [phone] * Latasha Nj - 08/18/2017 4:39 PM [...] diabetes mellitus (GDM): diagnosed at 7 weeks jcsykzcwu01/06/2017 ??? Hospital-Previous section x 2 05/29/2017 Reason [...] Social Work Note Office of Care Management JAVA SPRING DEVELOPER met with pt at bedside to check in with her. Pt reports she is doing well, just tired. Presentsno needs at this time. Plan: JAVA SPRING DEVELOPER informed pt she would look into gas card from [email or web address] for this week. DIEGO Ruiz Pager: [phone] * Emerita Rosario Rosie - 08/10/2017 11:01 [...] Neg 07/28/2017 Glucose Accord: Assessment & Plan: Pma Lake is a 27 y.o. woman [...] diabetes mellitus (GDM): diagnosed at 7 weeks fbafskfaj55/06/2017 ??? Hospital-Previous section x 2 05/29/2017 Reason [...] Note Office of Care Management Follow Up: JAVA SPRING DEVELOPER met with pt as she was asking about a gas card so her children could visit her in the hospital.JAVA SPRING DEVELOPER spoke with Nuvia at [employer] and she has tubed over a $20 gas card for pt. Pt was very happy and appreciative of gas card. Plan: JAVA SPRING DEVELOPER will continue to follow pt for needs. DIEGO Ruiz Pager: [phone] * TrevEmerita guzman Rosie - 08/03/2017 9:03 [...] gas cards for visiting. DIEGO ORTIZ Weekend Internet Consultant Pager [phone] * Jhonathan Robertson MD - [...] Note Office of Care Management Follow Up: JAVA SPRING DEVELOPER met with pt at bedside today and gave her information on parent/child center in [facility]. Pt declined referral at this time but asked sign writer letterer or painter to check back later. JAVA SPRING DEVELOPER also spoke with pt about a concern [...] a volunteer cuddler during her stay here. JAVA SPRING DEVELOPER told pt she would ask medical staff. Plan: JAVA SPRING DEVELOPER will continue to follow pt for needs. DIEGO Ruiz Pager: [phone] * Li Lehman RD - 07/31/2017 3:38 [...] and be left alone. BS obtained by health care attorney, will plan to leave pt alone for [...] not want to talk much to this sign writer letterer or painter. Activity Level: sedentary/bedrest BMI before : unknown [...] reviewed and interpreted this NST. * Emerita Rosairo - 07/30/2017 7:10 AM EST Images from [...] her management with Dr. Rosario.I reviewed Dr. Rosairo's note and agree with the documented findings [...] PM EST Obstetrical Admission Note Referring Hospital: [facility] Initial Care Provider (if early referral or co-managed by [facility]): Dr. Isela Blunt Chief Complaint: Pam Lake [...] Dispense Refill Last Dose ??? vitamin with imikuswl-Fw-Cwkx-FA Tablet Take 1 tablet by mouth daily. [...] 145, Variability: moderate, Accels: yes, Decels: none, [place]: No contractions Reactive for gestational age Record [...] seen and discussed with Dr. Zurita, Attending DOWNSTREAM BIOMANUFACTURING TECHNICIAN. EMERITA ROSARIO MD PGY3 07/28/2017 Attending note [...] Outcome (s) achieved Date Met: 09/15/17 09/15/17 3654 Plan of Care Review Progress progress toward functional goals as expected OUTCOME EVALUATION NOTE: OUTCOME SUMMARY: Pt ambulating to visit infant in ICN. Tolerating diet. Voiding without difficulty. Reports PRN painmedication to adequately control pain level. Assisted with breast pump. Reviewed breast massage andhand expression. Discharge instructions reviewed and questions answered. PLAN MOVING FORWARD: Discharge home - pt plans to stay at [facility] while infant in ICN. INDIVIDUALIZED FALL PREVENTION [...] -- family or friend will provide 09/15/17 1643 Discharge Needs Assessment Concerns To Be Addressed [...] is all packed for her stay at [facility] until she can bring her baby home. Kristin Beauchamp, [facility] [phone] Pager [phone] * Plan of Care - Rubi Curran [...] 16.13) performed by Chely Sin MD at [facility] ??? PRO CYSTOURETHROSCOPY N/A 09/11/2017 CYSTO, CYSTOURETHROSCOPY, DIAGNOSTIC (WRVU 2.23) performed by Chely Sin MD at [facility] ??? PRO SUPRACERV ABD HYSTERECTOMY N/A 09/11/2017 @HYSTERECTOMY, ABD, SUPRACERVICAL (WRVU 16.6) performed by Chely Sin MD at [facility] Subjective: Patient/Family/Caregiver Comments/Observations: Oh that hurts [...] this evaluation. RUBI CURRAN, PT, DPT Pager: [phone] Inpatient Physical Therapy * Plan of Care [...] until Mon or , then go to [facility], has no support at home and [...] 48 hours if develop symptoms of engorgement [place] oil to nipples prior to pumping Frequent and prolonged maternal-infant skin to skin contact Close support and follow up Pam given the following pamphlets: Providing breast milk for your baby in the intensive care nursery Breast feeding your premature baby Rosario Noyola RN IBCLC [facility] Services * Consult Note - Kristin Beauchamp - 09/14/2017 1:12 PM EST Behavioral Intervention Team (BIT) BIT JAVA SPRING DEVELOPER attempted to meet with Pam who was sleeping. Will try again later. Kristin Beauchamp, [facility] [phone] Pager [phone] * Plan of Care - Yumiko Cochran [...] until Mon or Tu, then go to [facility], has no support at home and [...] until Mon or Tu, then go to [facility], has no support at home and [...] SUMMARY: Amador out, voiding on own. DCd CNC WOOD LATHE OPERATOR, switched to po pain meds and [...] VS stable, pain controlled with use of CNC WOOD LATHE OPERATOR-Dilaudid. Amador catheter in place, draining adequately [...] sheath. ?Viable female infant in cephalic presentation, [id number] grams and Apgars of 4, 7 and [...] Information for the patient's : Michele Lake [[id number]] DELIVERY SUMMARY FOR Baby Jess Lake (please [...] Combined est. blood loss (mL): 2500 Delivery ([place]) Delivery Date: 09/11/17 Delivery Time: 1158 Sex: Female Presentation: Vertex Attempted ?: No Delivery Type: Delivery Type (Specific): Lower Segment Transverse Major Indications - : placenta previa Shoulder Dystocia Shoulder dystocia present?: No Delivery Information Delivery Location: OR Delivering Clinician: YOLY CUEVA Staff Present: Yes Other Personnel: Provider Role TIFFANYALISSON Roger Delivery Nurse CHELY SIN Hand Almond Blancher LETITIA SCHMIDT Delivery Assist YOLY CUEVA Resident [...] to skin not initiated: Maternal Acuity Medications [place] Medications Given: vitamin K, erythromycin Measurements Weight: [...] G 5 p 2 patient on the [facility] with at 34 weeks gestation complicated with vasa previa. I reviewed history in chart as well as oral history from Pam. She was referred as a maternal- transfer from [facility] Relevant History: Pam Lake is [...] Note ?? Patient Name: Pam Lake : [id number] MR#: [id number] ?? Case Date: 09/11/2017 ?? Surgeon: Surgeon(s) and Role: * Chely Sin MD - Primary * Yoly Cueva MD - Resident-Surgeon Chief * Samantha Ocampo- [facility]-3 ?? Preoperative diagnosis: 1. 34 wk intrauterine [...] and the remainderwas closed with 0-Vicryl with tpsuah-oa-qgzeq sutures. There was bleeding along the left [...] Operative Note Patient Name: Pam Lake : [id number] MR#: [id number] Case Date: 09/11/2017 Surgeon: Surgeon(s) and Role: [...] wished to meet later today. Kristin Beauchamp, [facility], [facility] [phone] Pager [phone] * Plan of Care - Arturo Marquez [...] monitor and requested I return later. Kristin Beaucahmp, [facility], [facility] [phone] Pager [phone] * Plan of Care - Becca Bailey [...] on 07/28 and was referred to BIT JAVA SPRING DEVELOPER for supportive therapy due to her prolonged admission. Record reviewed and discussed with BP nurses and Stephanie CORTEZ. Relevant Information: Introduced the role of BIT SW and the following was discussed. Pam lives in [facility] with her son, Blayne Bang, and her daughter Jermaine, Julieta. During this admission, her children are being cared for by her ex- who is the father of Jermaine. The FOB lives in [place], their relationship is cordial and they talk occasionally on the phone. She feels abandoned by him and isunsure if he will be involved with this baby. Pam is the youngest of three children. She has limited contact with her brother who resides in [place], [place]., her sister is addicted to drugs and lives on the streets of [place], [place]. Pam has 13 nieces and nephews, age 3-13 and enjoys having all of them at her house for sleep overs. 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 Pam identifies her friends as her emotional support system, as well as, her therapist at [facility] who she has seen for 2 years. This prolonged admission has been difficult because her friends, who live over an hour away, have not been able to visit. Her ex- brings her children for a visit on the weekends and she missesthem very much. Additionally, Pam feels like she is in long term because she is restricted to the unit. She is Israeli and loves to cook and has had [...] the NICU. While her baby remains at [facility], she will stay at [facility] and have her other two children [...] sometimes she cannot shut down herbrain. This sign writer letterer or painter provided her with online resources to address her insomnia, anxiety and depression and will connect her with the [employer] [facility] which she would enjoy. Assessment/Plan: Pam [...] coping skills to address her anxiety. BIT JAVA SPRING DEVELOPER, Luanne Phan and I will continue to follow during this admission to provide support and interventions. STACY Dorantes, [facility] [phone] Pager [phone] * Consult Note - Kristin Beauchamp - 09/03/2017 1:32 PM EST Behavioral Intervention Team (GUADALU[facility]) Attempted to meet with Pam who was napping and requested I return later today. STACY Curtis, [facility] [phone] Pager [phone] * Consult Note - Kristin Beauchamp - [...] in close proximity to the OR. GUADALUPE JAVA SPRING DEVELOPER will return later today as Pam prefers not to be disturbed until after noon time. STACY Dorantes, [facility] [phone] Pager [phone] * Plan of Care - Arturo Marquez [...] Positioning Body Position -- -- -- 09/02/17 8693 Activity and Safety Assistive Device -- Daily [...] bleeding, and good FM. Participants patient;physician;nursing (MD aBrrett, RN Perfecto) Problem: High-Risk/Critically Ill Patient (Obstetrics) [...] none * Plan of Care - Joy Coelman RN - 09/02/2017 6:18 PM EST Problem: [...] bleeding, and good FM. Participants patient;physician;nursing (MD Barertt, [facility] [place]) Problem: High-Risk/Critically Ill Patient (Obstetrics) [...] none * Consult Note - Luanne Phan, SUPER[employer] - 08/31/2017 3:06 PM EST Psychiatry Behavioral Intervention Team (BIT) Referral: Referred to GUADALUPE AUW for supportive therapy by BP AGUILAR. Per chart, PPHx of PTSD. Record reviewed and discussed with RN. Relevant Information: Attempted to meet with patient x2 today. Patient unavailable both attempts, asked this sign writer letterer or painter to f/u at a later time. Assessment/Plan: GUADALUPE AUW will continue to follow for supportive therapy while hospitalized. DIEGO Cat Phone: [phone] Pager: [phone] * Plan of Care - Kristin [place]ley [...] WDL PLAN MOVING FORWARD: Continue monitoring per chiller tender CPG INDIVIDUALIZED FALL PREVENTION INTERVENTIONS: Patient-specific fall [...] WDL PLAN MOVING FORWARD: Continue monitoring per electrical high tension tester CPG INDIVIDUALIZED FALL PREVENTION INTERVENTIONS: Patient-specific fall [...] Outcome: Ongoing (Interventions Implemented as Appropriate) 08/12/1741108/26/17 7844 Discharge Needs Assessment Concerns To Be Addressed [...] Outcome: Ongoing (Interventions Implemented as Appropriate) 08/26/17 2054 Plan of Care Review Progress progress toward [...] and paperwork given. Gestational Diabetes handout from [facility]. PLAN MOVING FORWARD: No change. Continue to [...] leaking, and bleeding. Pt had more frequent Tucker-Aguilar contractions than usual early on in the [...] This RN will consider consult to social work/director of oncology for emotional support during extended stay. INDIVIDUALIZED [...] Outcome: Ongoing (Interventions Implemented as Appropriate) 08/12/1741108/14/17 0554 08/17/17 1216 Activity and Safety Assistive Device [...] RN discussed pt's frustrations and desires with battery charger tester, Joy Bond, and with MDs Nino. PLAN MOVING FORWARD: MDs and battery charger tester said they would pass along pt requests [...] Outcome: Ongoing (Interventions Implemented as Appropriate) 08/12/17 8422 Plan of Care Review Progress no change [...] Pt ambulated off unit this shift to [employer]; RN educated patient about leaving the unit, [...] (Interventions Implemented as Appropriate) 08/03/17 0559 08/07/17 8349 Discharge Needs Assessment Concerns To Be Addressed [...] Handling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 Unknown 09/11/2017 5:15 AM EST 09/11/2017 5:29 AM EST Narrative Resulting Agency Comment Spec In Lab Yoly Cueva MD BLOOD BANK LAB ORDER KURT Performing Organization Address [place]/[facility]/ZIP Co de Phone Number [facility] [address] * ABORH Recheck Status (09/11/2017 5:15 AM EST) ABORH Type Recheck Completed [facility] Blood specimen (specimen) Venous Draw / Unknown 09/11/2017 5:15 AM EST 09/11/2017 5:29 AM EST Narrative Resulting Agency Comment Spec In Lab Yoly Cueva MD BLOOD BANK LAB ORDER KURT [facility] [place] [address] * Antibody screen manual (09/11/2017 5:15 AM EST) AB Screen Interp Positive [facility] Blood specimen (specimen) Venous Draw / Unknown 09/11/2017 5:15 AM EST 09/11/2017 5:29 AM EST Narrative Resulting Agency Comment Spec In Lab Arturo Waterman MD BLOOD BANK LAB ORDER KURT Performing Organization Address City/[facility]/ZIP Co de Phone Number [facility] [place] [address] * ABORh Type Manual (09/11/2017 5:15 AM EST) Expires at [id number] on: 09/14/2017 [facility] ABORH Type B Pos [facility] Blood specimen (specimen) Venous Draw / Unknown 09/11/2017 5:15 AM EST 09/11/2017 5:29 AM EST Narrative Resulting Agency Comment Spec In Lab Arturo Waterman MD BLOOD BANK LAB ORDER KURT Performing Organization Address City/[facility]/ZIP Co de Phone Number [facility] [place] [address] * Differential, Automated (09/11/2017 5:15 AM EST) Neutrophil % 59.9 % [facility] Neutrophil Absolute 4.60 1.70 - 6.10 x10(3)/[facility] Lymph % 29.6 % [facility] Lymphocytes Abs 2.3 0.9 - 3.2 x10(3)/[facility] Monocyte % 8.8 % [facility] Monocyte Abs 0.7 0.3 - 0.9 x10(3)/[facility] Eos % 0.9 % [facility] Eosinophils Abs 0.1 0.0 - 0.4 x10(3)/[facility] Basophil % 0.3 % [facility] Baso Absolute 0.0 0.0 - 0.1 x10(3)/[facility] Immature Gran % 0.50 % [facility] Comment: Immature granulocytes(IG's)percentage and absolute [...] Lab Arturo Waterman MD HEMATOLOGY ORDERABLE S [facility] [place] [address] * (ABNORMAL) Hemogram (09/11/2017 5:15 AM EST) White Blood Cell 7.7 4.0 - 9.5 x10(3)/mc L [facility] Red Blood Cell 3.88(L) 4.00 - 5.21 x10(6)/mc L [facility] Hemoglobin 11.2(L) 11.7 - 15.5 gm/dL [facility] Hematocrit 32.4(L) 35.7 - 45.8 % [facility] Mean Cell Volume 83.5 82.6 - 94.4 fL [facility] Mean Cell Hemoglobin 28.9 27.1 - 32.0 pg [facility] Mean Cell Hemoglobin Concentration 34.6 31.7 - 35.0 gm/dL [facility] Platelet 195 145 - 357 x10(3)/mc L [facility] RDW Standard Deviation 38.8 37.0 - 46.0 fL [facility] RDW coefficient of variation 12.9 11.5 - 14.1 % [facility] Mean Platelet Volume 8.2 7.6 - 12.9 fL [facility] NRBC% auto 0.0 % [facility] NRBC Absolute 0.000 0.000 - 0.000 x10(3)/mc L [facility] Blood specimen (specimen) 09/11/2017 5:15 AM EST 09/11/2017 5:32 AM EST Narrative Resulting Agency Comment Spec In Lab Arturo Waterman MD HEMATOLOGY ORDERABLE S Performing Organization Address City/[facility]/ZIP Co de Phone Number [facility] [place] [address] * SCAN DOC: LAB (09/11/2017 12:00 AM EST) Narrative 09/11/2017 12:00 AM EST Ordered by an unspecified provider. Scanning Provider MEDIA MGR SCAN EXT O RDR/RSLT * POCT Glucose (09/10/2017 7:15 PM EST) Glucose, POC 99 65 - 199 mg/dL [facility] Comment: Supplemental ranges: <140 mg/dL before meals <180 mg/dL all other times of the day Blood specimen (specimen) 09/10/2017 7:15 PM EST 09/10/2017 7:15 PM EST Arturo Waterman MD POINT OF CARE TEST O RDERABLES Performing Organization Address City/[facility]/ZIP Co de Phone Number [facility] [place] [address] * POCT Glucose (09/10/2017 3:01 PM EST) Glucose, POC 138 65 - 199 mg/dL [facility] Comment: Supplemental ranges: <140 mg/dL before meals <180 mg/dL all other times of the day Blood specimen (specimen) 09/10/2017 3:01 PM EST 09/10/2017 3:01 PM EST Arturo Waterman MD POINT OF CARE TEST O RDERABLES Performing Organization Address City/[facility]/ZIP Co de Phone Number [facility] [place] [address] * POCT Glucose (09/10/2017 12:58 PM EST) Glucose, POC 83 65 - 199 mg/dL [facility] Comment: Supplemental ranges: <140 mg/dL before meals <180 mg/dL all other times of the day Blood specimen (specimen) 09/10/2017 12:58 PM EST 09/10/2017 12:58 PM EST Arturo Waterman MD POINT OF CARE TEST O RDERAFRANNIE Performing Organization Address [place]/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 Scanning Provider MEDIA MGR SCAN EXT O RDR/RSLT * POCT Glucose (09/09/2017 8:28 PM EST) Glucose, POC 118 65 - 199 mg/dL [facility] Comment: Supplemental ranges: <140 mg/dL before meals <180 mg/dL all other times of the day Blood specimen (specimen) 09/09/2017 8:28 PM EST 09/09/2017 8:28 PM EST Arturo Waterman MD POINT OF CARE TEST O RDERABLES Performing Organization Address City/[facility]/ZIP Co de Phone Number [facility] [place] [address] * POCT Glucose (09/09/2017 3:32 PM EST) Glucose, POC 121 65 - 199 mg/dL [facility] Comment: Supplemental ranges: <140 mg/dL before meals <180 mg/dL all other times of the day Blood specimen (specimen) 09/09/2017 3:32 PM EST 09/09/2017 3:32 PM EST Arturo Waterman MD POINT OF CARE TEST O RDERABLES [facility] [place] [address] * POCT Glucose (09/09/2017 1:46 PM EST) Glucose, POC 75 65 - 199 mg/dL [facility] Comment: Supplemental ranges: <140 mg/dL before meals <180 mg/dL all other times of the day Blood specimen (specimen) 09/09/2017 1:46 PM EST 09/09/2017 1:46 PM EST Arturo Waterman MD POINT OF CARE TEST O RDERABLES [facility] [place] [address] * POCT Glucose (09/09/2017 12:28 AM EST) Glucose, POC 169 65 - 199 mg/dL [facility] Comment: Supplemental ranges: <140 mg/dL before meals <180 mg/dL all other times of the day Blood specimen (specimen) 09/09/2017 12:28 AM EST 09/09/2017 12:28 AM EST Arturo Waterman MD POINT OF CARE TEST O RDERABLES [facility] [place] [address] * POCT Glucose (09/08/2017 2:38 PM EST) Glucose, POC 160 65 - 199 mg/dL [facility] Comment: Supplemental ranges: <140 mg/dL before meals <180 mg/dL all other times of the day Blood specimen (specimen) 09/08/2017 2:38 PM EST 09/08/2017 2:38 PM EST Arturo Waterman MD POINT OF CARE TEST O JORGE ALBERTO [facility] [place] [address] * POCT Glucose (09/08/2017 11:46 AM EST) Glucose, POC 89 65 - 199 mg/dL [facility] Comment: Supplemental ranges: <140 mg/dL before meals <180 mg/dL all other times of the day Blood specimen (specimen) 09/08/2017 11:46 AM EST 09/08/2017 11:46 AM EST Arturo Waterman MD POINT OF CARE TEST O JORGE ALBERTO Performing Organization Address City/[facility]/ZIP Co de Phone Number [facility] [place] [address] * POCT Glucose (09/07/2017 10:41 PM EST) Glucose, POC 140 65 - 199 mg/dL [facility] Comment: Supplemental ranges: <140 mg/dL before meals <180 mg/dL all other times of the day Blood specimen (specimen) 09/07/2017 10:41 PM EST 09/07/2017 10:41 PM EST Arturo Waterman MD POINT OF CARE TEST O JORGE ALBERTO [facility] [place] [address] * POCT Glucose (09/07/2017 2:56 PM EST) Glucose, POC 147 65 - 199 mg/dL [facility] Comment: Supplemental ranges: <140 mg/dL before meals <180 mg/dL all other times of the day Blood specimen (specimen) 09/07/2017 2:56 PM EST 09/07/2017 2:56 PM EST Arturo Waterman MD POINT OF CARE TEST O JORGE ALBERTO [facility] [place] [address] * POCT Glucose (09/07/2017 12:55 PM EST) Glucose, POC 85 65 - 199 mg/dL [facility] Comment: Supplemental ranges: <140 mg/dL before meals <180 mg/dL all other times of the day Blood specimen (specimen) 09/07/2017 12:55 PM EST 09/07/2017 12:55 PM EST Arturo Waterman MD POINT OF CARE TEST O JORGE ALBERTO Performing Organization Address City/[facility]/ZIP Co de Phone Number [facility] [place] [address] * POCT Glucose (09/06/2017 7:37 PM EST) Glucose, POC 120 65 - 199 mg/dL [facility] Comment: Supplemental ranges: <140 mg/dL before meals <180 mg/dL all other times of the day Blood specimen (specimen) 09/06/2017 7:37 PM EST 09/06/2017 7:37 PM EST Arturo Waterman MD POINT OF CARE TEST O BENJYERAFRANNIE Performing Organization Address City/[facility]/ZIP Co de Phone Number [facility] [place] [address] * POCT Glucose (09/06/2017 2:12 PM EST) Glucose, POC 134 65 - 199 mg/dL [facility] Comment: Supplemental ranges: <140 mg/dL before meals <180 mg/dL all other times of the day Blood specimen (specimen) 09/06/2017 2:12 PM EST 09/06/2017 2:12 PM EST Arturo Waterman MD POINT OF CARE TEST O RDERABLES Performing Organization Address [place]/[facility]/ZIP Co de Phone Number [facility] [place] [address] * POCT Glucose (09/06/2017 12:09 PM EST) Glucose, POC 85 65 - 199 mg/dL [facility] Comment: Supplemental ranges: <140 mg/dL before meals <180 mg/dL all other times of the day Blood specimen (specimen) 09/06/2017 12:09 PM EST 09/06/2017 12:09 PM EST Arturo Waterman MD POINT OF CARE TEST O RDERAFRANNIE Performing Organization Address [place]/[facility]/ZIP Co de Phone Number [facility] [place] [address] * POCT Glucose (09/05/2017 8:40 PM EST) Glucose, POC 123 65 - 199 mg/dL [facility] Comment: Supplemental ranges: <140 mg/dL before meals <180 mg/dL all other times of the day Blood specimen (specimen) 09/05/2017 8:40 PM EST 09/05/2017 8:40 PM EST Arturo Waterman MD POINT OF CARE TEST O RDERAFRANNIE [facility] [place] [address] * POCT Glucose (09/05/2017 3:39 PM EST) Glucose, POC 163 65 - 199 mg/dL [facility] Comment: Supplemental ranges: <140 mg/dL before meals <180 mg/dL all other times of the day Blood specimen (specimen) 09/05/2017 3:39 PM EST 09/05/2017 3:39 PM EST Arturo Waterman MD POINT OF CARE TEST O JORGE ALBERTO Performing Organization Address City/[facility]/ZIP Co de Phone Number [facility] [place] [address] * POCT Glucose (09/05/2017 1:45 PM EST) Glucose, POC 91 65 - 199 mg/dL [facility] Comment: Supplemental ranges: <140 mg/dL before meals <180 mg/dL all other times of the day Blood specimen (specimen) 09/05/2017 1:45 PM EST 09/05/2017 1:45 PM EST Arturo Waterman MD POINT OF CARE TEST O BENJYERAFRANNIE Performing Organization Address [place]/[facility]/ZIP Co de Phone Number [facility] [place] [address] * POCT Glucose (09/04/2017 11:36 PM EST) Glucose, POC 167 65 - 199 mg/dL [facility] Comment: Supplemental ranges: <140 mg/dL before meals <180 mg/dL all other times of the day Blood specimen (specimen) 09/04/2017 11:36 PM EST 09/04/2017 11:36 PM EST Arturo Waterman MD POINT OF CARE TEST O RDERAFRANNIE Performing Organization Address City/[facility]/ZIP Co de Phone Number [facility] [place] [address] * POCT Glucose (09/04/2017 4:14 PM EST) Glucose, POC 150 65 - 199 mg/dL [facility] Comment: Supplemental ranges: <140 mg/dL before meals <180 mg/dL all other times of the day Blood specimen (specimen) 09/04/2017 4:14 PM EST 09/04/2017 4:14 PM EST Arturo Waterman MD POINT OF CARE TEST O JORGE ALBERTO Performing Organization Address [place]/[facility]/ZIP Co de Phone Number [facility] [place] [address] * POCT Glucose (09/04/2017 1:29 PM EST) Glucose, POC 99 65 - 199 mg/dL [facility] Comment: Supplemental ranges: <140 mg/dL before meals <180 mg/dL all other times of the day Blood specimen (specimen) 09/04/2017 1:29 PM EST 09/04/2017 1:29 PM EST Arturo Waterman MD POINT OF CARE TEST O JORGE ALBERTO Performing Organization Address [place]/[facility] Co de Phone Number [facility] [place] [address] * POCT Glucose (09/03/2017 4:56 PM EST) Glucose, POC 138 65 - 199 mg/dL [facility] Comment: Supplemental ranges: <140 mg/dL before meals <180 mg/dL all other times of the day Blood specimen (specimen) 09/03/2017 4:56 PM EST 09/03/2017 4:56 PM EST Arturo Waterman MD POINT OF CARE TEST O JORGE ALBERTO Performing Organization Address City/[facility]/ZIP Co de Phone Number [facility] [place] [address] * POCT Glucose (09/03/2017 2:11 PM EST) Glucose, POC 92 65 - 199 mg/dL [facility] Comment: Supplemental ranges: <140 mg/dL before meals <180 mg/dL all other times of the day Blood specimen (specimen) 09/03/2017 2:11 PM EST 09/03/2017 2:11 PM EST Arturo Waterman MD POINT OF CARE TEST O RDANG Performing Organization Address [place]/[facility] Co de Phone Number [facility] [place] [address] * POCT Glucose (09/02/2017 9:34 PM EST) Glucose, POC 118 65 - 199 mg/dL [facility] Comment: Supplemental ranges: <140 mg/dL before meals <180 mg/dL all other times of the day Blood specimen (specimen) 09/02/2017 9:34 PM EST 09/02/2017 9:34 PM EST Arturo Waterman MD POINT OF CARE TEST O JORGE ALBERTO Performing Organization Address [place]/[facility] de Phone Number [facility] [place] [address] * POCT Glucose (09/02/2017 3:23 PM EST) Glucose, POC 163 65 - 199 mg/dL [facility] Comment: Supplemental ranges: <140 mg/dL before meals <180 mg/dL all other times of the day Blood specimen (specimen) 09/02/2017 3:23 PM EST 09/02/2017 3:23 PM EST Arturo Waterman MD POINT OF CARE TEST O JORGE ALBERTO Performing Organization Address [place]/[facility] Co de Phone Number [facility] [place] [address] * POCT Glucose (09/02/2017 12:33 PM EST) Glucose, POC 94 65 - 199 mg/dL [facility] Comment: Supplemental ranges: <140 mg/dL before meals <180 mg/dL all other times of the day Blood specimen (specimen) 09/02/2017 12:33 PM EST 09/02/2017 12:33 PM EST Arturo Waterman MD POINT OF CARE TEST O RDERABLES Performing Organization Address [place]/[facility]/ZIP Co de Phone Number [facility] [place] [address] * Group B Streptococcus Screen (09/02/2017 1:57 AM EST) GBS Screen Neg [facility] Pooled specimen from vaginal introitus and rectal swab (specimen) 09/02/2017 1:57 AM EST 09/02/2017 8:15 AM EST Comment:Penicillin Allergy?- >No Narrative Resulting Agency Comment Spec In Lab Arturo Waterman MD MICROBIOLOGY - GENER AL ORDERABLES Performing Organization Address [facility] [facility] Co de Phone Number [facility] [place] [address] * Group B Strep Culture Screen (09/02/2017 1:57 AM EST) Group B Streptococcus Culture No Group B Streptococci isolated [facility] Pooled specimen from vaginal introitus and rectal swab (specimen) 09/02/2017 1:57 AM EST 09/02/2017 8:15 AM EST Comment:PENICILLIN ALLERGY?- >NO Narrative Resulting Agency Comment Spec In Lab Arturo Waterman MD MICROBIOLOGY - GENER AL ORDERABLES Performing Organization Address [place]/[facility] Co de Phone Number [facility] [place] [address] * POCT Glucose (09/01/2017 7:29 PM EST) Glucose, POC 136 65 - 199 mg/dL [facility] Comment: Supplemental ranges: <140 mg/dL before meals <180 mg/dL all other times of the day Blood specimen (specimen) 09/01/2017 7:29 PM EST 09/01/2017 7:29 PM EST Arturo Waterman MD POINT OF CARE TEST O RDERABLES Performing Organization Address City/[facility]/ZIP Co de Phone Number [facility] [place] [address] * US OB Follow Up Evaluation (09/01/2017 [...] 11:19 am) PATIENT INFO: ID #: ? [id number] ?: ??[birth year] (27 yrs) Name: ? PAM Lopez ?Visit Date: 09/01/2017 10:00 am ? JAYA PERFORMED BY: Performed By: ? Ruth Ann Dixon RDMS Attending: ?Derick TAY, Li Umanzor Referred By: ?ARTURO WATERMAN Location: ? [place] SERVICE(S) PROVIDED: ??UOBFOL - Efw - Growth - [place] - [id number] ? [id number] ??UOBTV - Viability - Cervical Length -Transvaginal - ?? [id number] ??[id number] INDICATIONS: ??32 weeks gestation of ?Z3A.32 ??follow [...] 09/01/2017 11:19 am) PATIENT INFO: ID #: [id number] : [birth year] (27 yrs) Name: PAM Lopez Visit Date: 09/01/2017 10:00 am JAYA PERFORMED BY: Performed By: Ruth Ann Dixon RDMS Attending: Li Sepulveda MD Referred By: ARTURO WATERMAN Location: [place] SERVICE(S) PROVIDED: UOBFOL - Efw - Growth - [place] - [id number] UOBTV - Viability - Cervical Length -Transvaginal - [id number] INDICATIONS: 32 weeks gestation of Z3A.32 follow [...] Report 09/01/2017 11:19 am Arturo Waterman MD [facility] OB ORDERABLES * POCT Glucose (09/01/2017 8:45 AM EST) Glucose, POC 92 65 - 199 mg/dL [facility] Comment: Supplemental ranges: <140 mg/dL before meals <180 mg/dL all other times of the day Blood specimen (specimen) 09/01/2017 8:45 AM EST 09/01/2017 8:45 AM EST Arturo Waterman MD POINT OF CARE TEST O RDERABLES Performing Organization Address [place]/[facility] Co de Phone Number [facility] [place] [address] * POCT Glucose (08/31/2017 3:32 PM EST) Glucose, POC 110 65 - 199 mg/dL [facility] Comment: Supplemental ranges: <140 mg/dL before meals <180 mg/dL all other times of the day Blood specimen (specimen) 08/31/2017 3:32 PM EST 08/31/2017 3:32 PM EST Arturo Waterman MD POINT OF CARE TEST O RDERABLES Performing Organization Address [place]/[facility] de Phone Number [facility] [place] [address] * POCT Glucose (08/31/2017 8:49 AM EST) Glucose, POC 94 65 - 199 mg/dL [facility] Comment: Supplemental ranges: <140 mg/dL before meals <180 mg/dL all other times of the day Blood specimen (specimen) 08/31/2017 8:49 AM EST 08/31/2017 8:49 AM EST Arturo Waterman MD POINT OF CARE TEST O RDERAFRANNIE Performing Organization Address [place]/[facility] de Phone Number [facility] [place] [address] * POCT Glucose (08/30/2017 8:54 PM EST) Glucose, POC 130 65 - 199 mg/dL [facility] Comment: Supplemental ranges: <140 mg/dL before meals <180 mg/dL all other times of the day Blood specimen (specimen) 08/30/2017 8:54 PM EST 08/30/2017 8:54 PM EST Arturo Waterman MD POINT OF CARE TEST O RDERAFRANNIE Performing Organization Address City/[facility]/ZIP Co de Phone Number [facility] [place] [address] * POCT Glucose (08/30/2017 3:16 PM EST) Glucose, POC 121 65 - 199 mg/dL [facility] Comment: Supplemental ranges: <140 mg/dL before meals <180 mg/dL all other times of the day Blood specimen (specimen) 08/30/2017 3:16 PM EST 08/30/2017 3:16 PM EST Arturo Waterman MD POINT OF CARE TEST O RDERAFRANNIE [facility] [place] [place] [address] * POCT Glucose (08/30/2017 12:38 PM EST) Glucose, POC 92 65 - 199 mg/dL [facility] Comment: Supplemental ranges: <140 mg/dL before meals <180 mg/dL all other times of the day Blood specimen (specimen) 08/30/2017 12:38 PM EST 08/30/2017 12:38 PM EST Arturo Waterman MD POINT OF CARE TEST O RDERAFRANNIE [facility] [place] [place] [address] * POCT Glucose (08/29/2017 8:47 PM EST) Glucose, POC 173 65 - 199 mg/dL [facility] Comment: Supplemental ranges: <140 mg/dL before meals <180 mg/dL all other times of the day Blood specimen (specimen) 08/29/2017 8:47 PM EST 08/29/2017 8:47 PM EST Arturo Waterman MD POINT OF CARE TEST O RDERAFRANNIE [facility] [place] [place] [address] * POCT Glucose (08/29/2017 3:31 PM EST) Glucose, POC 119 65 - 199 mg/dL [facility] Comment: Supplemental ranges: <140 mg/dL before meals <180 mg/dL all other times of the day Blood specimen (specimen) 08/29/2017 3:31 PM EST 08/29/2017 3:31 PM EST Arturo Waterman MD POINT OF CARE TEST O RDERAFRANNIE [facility] [place] [address] * POCT Glucose (08/29/2017 1:16 PM EST) Glucose, POC 98 65 - 199 mg/dL [facility] Comment: Supplemental ranges: <140 mg/dL before meals <180 mg/dL all other times of the day Blood specimen (specimen) 08/29/2017 1:16 PM EST 08/29/2017 1:16 PM EST Arturo Waterman MD POINT OF CARE TEST O RDERAFRANNIE [facility] [place] [address] * POCT Glucose (08/29/2017 9:25 AM EST) Glucose, POC 108 65 - 199 mg/dL [facility] Comment: Supplemental ranges: <140 mg/dL before meals <180 mg/dL all other times of the day Blood specimen (specimen) 08/29/2017 9:25 AM EST 08/29/2017 9:25 AM EST Arturo Waterman MD POINT OF CARE TEST O RDERAFRANNIE [facility] [place] [address] * POCT Glucose (08/28/2017 8:59 PM EST) Glucose, POC 122 65 - 199 mg/dL [facility] Comment: Supplemental ranges: <140 mg/dL before meals <180 mg/dL all other times of the day Blood specimen (specimen) 08/28/2017 8:59 PM EST 08/28/2017 8:59 PM EST Arturo Waterman MD POINT OF CARE TEST O JORGE ALBERTO [facility] [place] [address] * POCT Glucose (08/28/2017 3:45 PM EST) Glucose, POC 138 65 - 199 mg/dL [facility] Comment: Supplemental ranges: <140 mg/dL before meals <180 mg/dL all other times of the day Blood specimen (specimen) 08/28/2017 3:45 PM EST 08/28/2017 3:45 PM EST Arturo Waterman MD POINT OF CARE TEST O JORGE ALBERTO Performing Organization Address City/[facility]/ZIP Co de Phone Number [facility] [place] [address] * POCT Glucose (08/28/2017 12:23 PM EST) Glucose, POC 94 65 - 199 mg/dL [facility] Comment: Supplemental ranges: <140 mg/dL before meals <180 mg/dL all other times of the day Blood specimen (specimen) 08/28/2017 12:23 PM EST 08/28/2017 12:23 PM EST Arturo Waterman MD POINT OF CARE TEST O RDERAFRANNIE [facility] [place] [address] * POCT Glucose (08/27/2017 9:40 PM EST) Glucose, POC 134 65 - 199 mg/dL [facility] Comment: Supplemental ranges: <140 mg/dL before meals <180 mg/dL all other times of the day Blood specimen (specimen) 08/27/2017 9:40 PM EST 08/27/2017 9:40 PM EST Arturo Waterman MD POINT OF CARE TEST O RDERAFRANNIE Performing Organization Address City/[facility] Co de Phone Number [facility] [place] [address] * POCT Glucose (08/27/2017 3:08 PM EST) Glucose, POC 129 65 - 199 mg/dL [facility] Comment: Supplemental ranges: <140 mg/dL before meals <180 mg/dL all other times of the day Blood specimen (specimen) 08/27/2017 3:08 PM EST 08/27/2017 3:08 PM EST Arturo Waterman MD POINT OF CARE TEST O JORGE ALBERTO Performing Organization Address [place]/[facility] Co de Phone Number [facility] [place] [address] * POCT Glucose (08/27/2017 11:31 AM EST) Glucose, POC 91 65 - 199 mg/dL [facility] Comment: Supplemental ranges: <140 mg/dL before meals <180 mg/dL all other times of the day Blood specimen (specimen) 08/27/2017 11:31 AM EST 08/27/2017 11:31 AM EST Arturo Waterman MD POINT OF CARE TEST O RDERAFRANNIE Performing Organization Address City/[facility] Co de Phone Number [facility] [place] [address] * POCT Glucose (08/26/2017 8:00 PM EST) Glucose, POC 142 65 - 199 mg/dL [facility] Comment: Supplemental ranges: <140 mg/dL before meals <180 mg/dL all other times of the day Blood specimen (specimen) 08/26/2017 8:00 PM EST 08/26/2017 8:00 PM EST Arturo Waterman MD POINT OF CARE TEST O RDERAFRANNIE Performing Organization Address [place]/[facility] Co de Phone Number [facility] [place] [address] * POCT Glucose (08/26/2017 3:15 PM EST) Glucose, POC 105 65 - 199 mg/dL [facility] Comment: Supplemental ranges: <140 mg/dL before meals <180 mg/dL all other times of the day Blood specimen (specimen) 08/26/2017 3:15 PM EST 08/26/2017 3:15 PM EST Arturo Waterman MD POINT OF CARE TEST O BENJYERAFRANNIE Performing Organization Address [place]/[facility] Co de Phone Number [facility] [place] [address] * POCT Glucose (08/26/2017 12:29 PM EST) Glucose, POC 88 65 - 199 mg/dL [facility] Comment: Supplemental ranges: <140 mg/dL before meals <180 mg/dL all other times of the day Blood specimen (specimen) 08/26/2017 12:29 PM EST 08/26/2017 12:29 PM EST Arturo Waterman MD POINT OF CARE TEST O RDERARFANNIE Performing Organization Address [place]/[facility] Co de Phone Number [facility] [place] [address] * POCT urine dipstick (08/26/2017) POC Sp [place] 1.005 1.002 - 1.030 POC pH, UA [...] Glucose, POC 147 65 - 199 mg/dL [facility] Comment: Supplemental ranges: <140 mg/dL before meals <180 mg/dL all other times of the day Blood specimen (specimen) 08/25/2017 8:45 PM EST 08/25/2017 8:45 PM EST Arturo Waterman MD POINT OF CARE TEST O RDERAFRANNIE [facility] [place] [address] * POCT Glucose (08/25/2017 2:36 PM EST) Glucose, POC 133 65 - 199 mg/dL [facility] Comment: Supplemental ranges: <140 mg/dL before meals <180 mg/dL all other times of the day Blood specimen (specimen) 08/25/2017 2:36 PM EST 08/25/2017 2:36 PM EST Arturo Waterman MD POINT OF CARE TEST O RDERAFRANNIE [facility] [address] * POCT Glucose (08/25/2017 12:38 PM EST) Glucose, POC 91 65 - 199 mg/dL [facility] Comment: Supplemental ranges: <140 mg/dL before meals <180 mg/dL all other times of the day Blood specimen (specimen) 08/25/2017 12:38 PM EST 08/25/2017 12:38 PM EST Arturo Waterman MD POINT OF CARE TEST O JORGE ALBERTO Performing Organization Address City/[facility]/ZIP Co de Phone Number [facility] [place] [address] * POCT Glucose (08/24/2017 8:25 PM EST) Glucose, POC 93 65 - 199 mg/dL [facility] Comment: Supplemental ranges: <140 mg/dL before meals <180 mg/dL all other times of the day Blood specimen (specimen) 08/24/2017 8:25 PM EST 08/24/2017 8:25 PM EST Arturo Waterman MD POINT OF CARE TEST O JORGE ALBERTO Performing Organization Address [place]/[facility]/ZIP Co de Phone Number [facility] [place] [address] * POCT Glucose (08/24/2017 3:13 PM EST) Glucose, POC 144 65 - 199 mg/dL [facility] Comment: Supplemental ranges: <140 mg/dL before meals <180 mg/dL all other times of the day Blood specimen (specimen) 08/24/2017 3:13 PM EST 08/24/2017 3:13 PM EST Arturo Waterman MD POINT OF CARE TEST O JORGE ALBERTO Performing Organization Address City/[facility]/ZIP Co de Phone Number [facility] [place] [address] * POCT Glucose (08/24/2017 9:58 AM EST) Glucose, POC 109 65 - 199 mg/dL [facility] Comment: Supplemental ranges: <140 mg/dL before meals <180 mg/dL all other times of the day Blood specimen (specimen) 08/24/2017 9:58 AM EST 08/24/2017 9:58 AM EST Arturo Waterman MD POINT OF CARE TEST O JORGE ALBERTO Performing Organization Address [place]/[facility] Co de Phone Number [facility] [place] [address] * POCT Glucose (08/23/2017 11:41 PM EST) Glucose, POC 102 65 - 199 mg/dL [facility] Comment: Supplemental ranges: <140 mg/dL before meals <180 mg/dL all other times of the day Blood specimen (specimen) 08/23/2017 11:41 PM EST 08/23/2017 11:41 PM EST Arturo Waterman MD POINT OF CARE TEST O JORGE ALBERTO Performing Organization Address [place]/[facility] de Phone Number [facility] [place] [address] * POCT Glucose (08/23/2017 3:33 PM EST) Glucose, POC 128 65 - 199 mg/dL [facility] Comment: Supplemental ranges: <140 mg/dL before meals <180 mg/dL all other times of the day Blood specimen (specimen) 08/23/2017 3:33 PM EST 08/23/2017 3:33 PM EST Arturo Waterman MD POINT OF CARE TEST O JORGE ALBERTO Performing Organization Address [place]/[facility] Co de Phone Number [facility] [place] [address] * POCT Glucose (08/23/2017 11:37 AM EST) Glucose, POC 124 65 - 199 mg/dL [facility] Comment: Supplemental ranges: <140 mg/dL before meals <180 mg/dL all other times of the day Blood specimen (specimen) 08/23/2017 11:37 AM EST 08/23/2017 11:37 AM EST Arturo Waterman MD POINT OF CARE TEST O RDERAFRANNIE Performing Organization Address [place]/[facility]/ZIP Co de Phone Number [facility] [place] [address] * POCT Glucose (08/23/2017 9:44 AM EST) Glucose, POC 107 65 - 199 mg/dL [facility] Comment: Supplemental ranges: <140 mg/dL before meals <180 mg/dL all other times of the day Blood specimen (specimen) 08/23/2017 9:44 AM EST 08/23/2017 9:44 AM EST Arturo Waterman MD POINT OF CARE TEST O BENJYERAFRANNIE Performing Organization Address [place]/[facility] Co de Phone Number [facility] [place] [address] * POCT Glucose (08/22/2017 8:18 PM EST) Glucose, POC 111 65 - 199 mg/dL [facility] Comment: Supplemental ranges: <140 mg/dL before meals <180 mg/dL all other times of the day Blood specimen (specimen) 08/22/2017 8:18 PM EST 08/22/2017 8:18 PM EST Arturo Waterman MD POINT OF CARE TEST O JORGE ALBERTO Performing Organization Address [place]/[facility] Co de Phone Number [facility] [place] [address] * POCT Glucose (08/22/2017 2:28 PM EST) Glucose, POC 158 65 - 199 mg/dL [facility] Comment: Supplemental ranges: <140 mg/dL before meals <180 mg/dL all other times of the day Blood specimen (specimen) 08/22/2017 2:28 PM EST 08/22/2017 2:28 PM EST Arturo Waterman MD POINT OF CARE TEST O RDERABLES Performing Organization Address [place]/[facility] Co de Phone Number [facility] [place] [address] * POCT Glucose (08/22/2017 12:39 PM EST) Glucose, POC 83 65 - 199 mg/dL [facility] Comment: Supplemental ranges: <140 mg/dL before meals <180 mg/dL all other times of the day Blood specimen (specimen) 08/22/2017 12:39 PM EST 08/22/2017 12:39 PM EST Arturo Waterman MD POINT OF CARE TEST O RDERAFRANNIE Performing Organization Address [place]/[facility] Co de Phone Number [facility] [place] [address] * POCT Glucose (08/21/2017 7:53 PM EST) Glucose, POC 105 65 - 199 mg/dL [facility] Comment: Supplemental ranges: <140 mg/dL before meals <180 mg/dL all other times of the day Blood specimen (specimen) 08/21/2017 7:53 PM EST 08/21/2017 7:53 PM EST Arturo Waterman MD POINT OF CARE TEST O RDERAFRANNIE Performing Organization Address [place]/[facility] Co de Phone Number [facility] [place] [address] * POCT Glucose (08/21/2017 2:42 PM EST) Glucose, POC 130 65 - 199 mg/dL [facility] Comment: Supplemental ranges: <140 mg/dL before meals <180 mg/dL all other times of the day Blood specimen (specimen) 08/21/2017 2:42 PM EST 08/21/2017 2:42 PM EST Arturo Waterman MD POINT OF CARE TEST O RDERAFRANNIE [facility] [place] [address] * POCT Glucose (08/21/2017 9:07 AM EST) Glucose, POC 73 65 - 199 mg/dL [facility] Comment: Supplemental ranges: <140 mg/dL before meals <180 mg/dL all other times of the day Blood specimen (specimen) 08/21/2017 9:07 AM EST 08/21/2017 9:07 AM EST Arturo Waterman MD POINT OF CARE TEST O RDERABLES Performing Organization Address City/[facility]/ZIP Co de Phone Number [facility] [place] [address] * POCT Glucose (08/20/2017 7:30 PM EST) Glucose, POC 162 65 - 199 mg/dL [facility] Comment: Supplemental ranges: <140 mg/dL before meals <180 mg/dL all other times of the day Blood specimen (specimen) 08/20/2017 7:30 PM EST 08/20/2017 7:30 PM EST Arturo Waterman MD POINT OF CARE TEST O RDERABLES Performing Organization Address [place]/[facility]/ZIP Co de Phone Number [facility] [place] [address] * POCT Glucose (08/20/2017 1:54 PM EST) Glucose, POC 187 65 - 199 mg/dL [facility] Comment: Supplemental ranges: <140 mg/dL before meals <180 mg/dL all other times of the day Blood specimen (specimen) 08/20/2017 1:54 PM EST 08/20/2017 1:54 PM EST Arturo Waterman MD POINT OF CARE TEST O RDERABLES [facility] [place] [address] * POCT Glucose (08/20/2017 9:04 AM EST) Glucose, POC 158 65 - 199 mg/dL [facility] Comment: Supplemental ranges: <140 mg/dL before meals <180 mg/dL all other times of the day Blood specimen (specimen) 08/20/2017 9:04 AM EST 08/20/2017 9:04 AM EST Arturo Waterman MD POINT OF CARE TEST O RDERABLES [facility] [place] [address] * POCT Glucose (08/19/2017 8:24 PM EST) Glucose, POC 141 65 - 199 mg/dL [facility] Comment: Supplemental ranges: <140 mg/dL before meals <180 mg/dL all other times of the day Blood specimen (specimen) 08/19/2017 8:24 PM EST 08/19/2017 8:24 PM EST Arturo Waterman MD POINT OF CARE TEST O RDERABLES Performing Organization Address City/[facility]/ZIP Co de Phone Number [facility] [place] [address] * POCT Glucose (08/19/2017 4:01 PM EST) Glucose, POC 157 65 - 199 mg/dL [facility] Comment: Supplemental ranges: <140 mg/dL before meals <180 mg/dL all other times of the day Blood specimen (specimen) 08/19/2017 4:01 PM EST 08/19/2017 4:01 PM EST Arturo Waterman MD POINT OF CARE TEST O RDERABLES [facility] [place] [address] * POCT Glucose (08/19/2017 9:55 AM EST) Glucose, POC 127 65 - 199 mg/dL [facility] Comment: Supplemental ranges: <140 mg/dL before meals <180 mg/dL all other times of the day Blood specimen (specimen) 08/19/2017 9:55 AM EST 08/19/2017 9:55 AM EST Arturo Waterman MD POINT OF CARE TEST O JORGE ALBERTO [facility] [place] [address] * POCT Glucose (08/18/2017 11:52 PM EST) Glucose, POC 179 65 - 199 mg/dL [facility] Comment: Supplemental ranges: <140 mg/dL before meals <180 mg/dL all other times of the day Blood specimen (specimen) 08/18/2017 11:52 PM EST 08/18/2017 11:52 PM EST Arturo Waterman MD POINT OF CARE TEST O JORGE ALBERTO Performing Organization Address City/[facility]/ZIP Co de Phone Number [facility] [place] [address] * POCT Glucose (08/18/2017 7:38 PM EST) Glucose, POC 153 65 - 199 mg/dL [facility] Comment: Supplemental ranges: <140 mg/dL before meals <180 mg/dL all other times of the day Blood specimen (specimen) 08/18/2017 7:38 PM EST 08/18/2017 7:38 PM EST Arturo Waterman MD POINT OF CARE TEST O JORGE ALBERTO [facility] [place] [address] * POCT Glucose (08/18/2017 3:42 PM EST) Glucose, POC 93 65 - 199 mg/dL [facility] Comment: Supplemental ranges: <140 mg/dL before meals <180 mg/dL all other times of the day Blood specimen (specimen) 08/18/2017 3:42 PM EST 08/18/2017 3:42 PM EST Arturo Waterman MD POINT OF CARE TEST O RDERAFRANNIE Performing Organization Address City/[facility]/ZIP Co de Phone Number [facility] [place] [address] * POCT Glucose (08/18/2017 8:43 AM EST) Glucose, POC 72 65 - 199 mg/dL [facility] Comment: Supplemental ranges: <140 mg/dL before meals <180 mg/dL all other times of the day Blood specimen (specimen) 08/18/2017 8:43 AM EST 08/18/2017 8:43 AM EST Arturo Waterman MD POINT OF CARE TEST O JORGE ALBERTO Performing Organization Address [place]/[facility] Co de Phone Number [facility] [place] [address] * POCT Glucose (08/17/2017 8:22 PM EST) Glucose, POC 104 65 - 199 mg/dL [facility] Comment: Supplemental ranges: <140 mg/dL before meals <180 mg/dL all other times of the day Blood specimen (specimen) 08/17/2017 8:22 PM EST 08/17/2017 8:22 PM EST Arturo Waterman MD POINT OF CARE TEST O RDERAFRANNIE Performing Organization Address City/[facility] Co de Phone Number [facility] [place] [address] * POCT Glucose (08/17/2017 1:37 PM EST) Glucose, POC 167 65 - 199 mg/dL [facility] Comment: Supplemental ranges: <140 mg/dL before meals <180 mg/dL all other times of the day Blood specimen (specimen) 08/17/2017 1:37 PM EST 08/17/2017 1:37 PM EST Arturo Waterman MD POINT OF CARE TEST O RDERABLES [facility] [place] [address] * POCT Glucose (08/17/2017 12:04 PM EST) Glucose, POC 81 65 - 199 mg/dL [facility] Comment: Supplemental ranges: <140 mg/dL before meals <180 mg/dL all other times of the day Blood specimen (specimen) 08/17/2017 12:04 PM EST 08/17/2017 12:04 PM EST Arturo Waterman MD POINT OF CARE TEST O BENJYERAFRANNIE Performing Organization Address [place]/[facility]/ZIP Co de Phone Number [facility] [place] [address] * POCT Glucose (08/16/2017 6:52 PM EST) Glucose, POC 128 65 - 199 mg/dL [facility] Comment: Supplemental ranges: <140 mg/dL before meals <180 mg/dL all other times of the day Blood specimen (specimen) 08/16/2017 6:52 PM EST 08/16/2017 6:52 PM EST Arturo Waterman MD POINT OF CARE TEST O RDERAFRANNIE Performing Organization Address City/[facility]/ZIP Co de Phone Number [facility] [place] [address] * POCT Glucose (08/16/2017 12:08 PM EST) Glucose, POC 98 65 - 199 mg/dL [facility] Comment: Supplemental ranges: <140 mg/dL before meals <180 mg/dL all other times of the day Blood specimen (specimen) 08/16/2017 12:08 PM EST 08/16/2017 12:08 PM EST Arturo Waterman MD POINT OF CARE TEST O JORGE ALBERTO Performing Organization Address City/[facility]/ZIP Co de Phone Number [facility] [place] [address] * POCT Glucose (08/16/2017 10:15 AM EST) Glucose, POC 90 65 - 199 mg/dL [facility] Comment: Supplemental ranges: <140 mg/dL before meals <180 mg/dL all other times of the day Blood specimen (specimen) 08/16/2017 10:15 AM EST 08/16/2017 10:15 AM EST Arturo Waterman MD POINT OF CARE TEST O JORGE ALBERTO Performing Organization Address [place]/[facility]/ZIP Co de Phone Number [facility] [place] [address] * POCT Glucose (08/15/2017 8:24 PM EST) Glucose, POC 121 65 - 199 mg/dL [facility] Comment: Supplemental ranges: <140 mg/dL before meals <180 mg/dL all other times of the day Blood specimen (specimen) 08/15/2017 8:24 PM EST 08/15/2017 8:24 PM EST Arturo Waterman MD POINT OF CARE TEST O BENJYERAFRANNIE Performing Organization Address City/[facility]/ZIP Co de Phone Number [facility] [place] [address] * POCT Glucose (08/15/2017 3:44 PM EST) Glucose, POC 129 65 - 199 mg/dL [facility] Comment: Supplemental ranges: <140 mg/dL before meals <180 mg/dL all other times of the day Blood specimen (specimen) 08/15/2017 3:44 PM EST 08/15/2017 3:44 PM EST Arturo Waterman MD POINT OF CARE TEST O JORGE ALBERTO Performing Organization Address [place]/[facility] Co de Phone Number [facility] [place] [address] * POCT Glucose (08/15/2017 12:19 PM EST) Glucose, POC 91 65 - 199 mg/dL [facility] Comment: Supplemental ranges: <140 mg/dL before meals <180 mg/dL all other times of the day Blood specimen (specimen) 08/15/2017 12:19 PM EST 08/15/2017 12:19 PM EST Arturo Waterman MD POINT OF CARE TEST O JORGE ALBERTO Performing Organization Address [place]/[facility] Co de Phone Number [facility] [place] [address] * POCT Glucose (08/14/2017 8:37 PM EST) Glucose, POC 133 65 - 199 mg/dL [facility] Comment: Supplemental ranges: <140 mg/dL before meals <180 mg/dL all other times of the day Blood specimen (specimen) 08/14/2017 8:37 PM EST 08/14/2017 8:37 PM EST Arturo Waterman MD POINT OF CARE TEST O JORGE ALBERTO Performing Organization Address [place]/[facility] Co de Phone Number [facility] [place] [address] * POCT Glucose (08/14/2017 11:47 AM EST) Glucose, POC 76 65 - 199 mg/dL [facility] Comment: Supplemental ranges: <140 mg/dL before meals <180 mg/dL all other times of the day Blood specimen (specimen) 08/14/2017 11:47 AM EST 08/14/2017 11:47 AM EST Arturo Waterman MD POINT OF CARE TEST O RDERAFRANNIE Performing Organization Address [place]/[facility] Co de Phone Number [facility] [place] [address] * POCT Glucose (08/13/2017 8:05 PM EST) Glucose, POC 121 65 - 199 mg/dL [facility] Comment: Supplemental ranges: <140 mg/dL before meals <180 mg/dL all other times of the day Blood specimen (specimen) 08/13/2017 8:05 PM EST 08/13/2017 8:05 PM EST Arturo Waterman MD POINT OF CARE TEST O JORGE ALBERTO Performing Organization Address [place]/[facility] de Phone Number [facility] [place] [address] * POCT Glucose (08/13/2017 2:37 PM EST) Glucose, POC 144 65 - 199 mg/dL [facility] Comment: Supplemental ranges: <140 mg/dL before meals <180 mg/dL all other times of the day Blood specimen (specimen) 08/13/2017 2:37 PM EST 08/13/2017 2:37 PM EST Arturo Waterman MD POINT OF CARE TEST O JORGE ALBERTO Performing Organization Address [place]/[facility] Co de Phone Number [facility] [place] [address] * POCT Glucose (08/13/2017 12:52 PM EST) Glucose, POC 76 65 - 199 mg/dL [facility] Comment: Supplemental ranges: <140 mg/dL before meals <180 mg/dL all other times of the day Blood specimen (specimen) 08/13/2017 12:52 PM EST 08/13/2017 12:52 PM EST Arturo Waterman MD POINT OF CARE TEST O RDERABLES Performing Organization Address [place]/[facility] Co de Phone Number [facility] [place] [address] * POCT Glucose (08/12/2017 8:33 PM EST) Glucose, POC 129 65 - 199 mg/dL [facility] Comment: Supplemental ranges: <140 mg/dL before meals <180 mg/dL all other times of the day Blood specimen (specimen) 08/12/2017 8:33 PM EST 08/12/2017 8:33 PM EST Arturo Waterman MD POINT OF CARE TEST O RDERAFRANNIE Performing Organization Address [place]/[facility] Co de Phone Number [facility] [place] [address] * POCT Glucose (08/12/2017 2:03 PM EST) Glucose, POC 119 65 - 199 mg/dL [facility] Comment: Supplemental ranges: <140 mg/dL before meals <180 mg/dL all other times of the day Blood specimen (specimen) 08/12/2017 2:03 PM EST 08/12/2017 2:03 PM EST Arturo Waterman MD POINT OF CARE TEST O RDERAFRANNIE Performing Organization Address [facility] Co de Phone Number [facility] [place] [address] * POCT Glucose (08/12/2017 11:43 AM EST) Glucose, POC 98 65 - 199 mg/dL [facility] Comment: Supplemental ranges: <140 mg/dL before meals <180 mg/dL all other times of the day Blood specimen (specimen) 08/12/2017 11:43 AM EST 08/12/2017 11:43 AM EST Arturo Waterman MD POINT OF CARE TEST O RDERABLES Performing Organization Address City/[facility]/ZIP Co de Phone Number [facility] [place] [address] * POCT Glucose (08/11/2017 7:58 PM EST) Glucose, POC 120 65 - 199 mg/dL [facility] Comment: Supplemental ranges: <140 mg/dL before meals <180 mg/dL all other times of the day Blood specimen (specimen) 08/11/2017 7:58 PM EST 08/11/2017 7:58 PM EST Arturo Waterman MD POINT OF CARE TEST O RDERABLES Performing Organization Address [place]/[facility] Co de Phone Number [facility] [place] [address] * POCT Glucose (08/11/2017 11:20 AM EST) Glucose, POC 95 65 - 199 mg/dL [facility] Comment: Supplemental ranges: <140 mg/dL before meals <180 mg/dL all other times of the day Blood specimen (specimen) 08/11/2017 11:20 AM EST 08/11/2017 11:20 AM EST Arturo Waterman MD POINT OF CARE TEST O RDERABLES Performing Organization Address [place]/[facility] Co de Phone Number [facility] [place] [address] * POCT Glucose (08/11/2017 10:08 AM EST) Glucose, POC 102 65 - 199 mg/dL [facility] Comment: Supplemental ranges: <140 mg/dL before meals <180 mg/dL all other times of the day Blood specimen (specimen) 08/11/2017 10:08 AM EST 08/11/2017 10:08 AM EST Arturo Waterman MD POINT OF CARE TEST O RDERABLES [facility] [place] [address] * US OB Follow Up Evaluation (08/11/2017 [...] 10:10 am) PATIENT INFO: ID #: ? [id number] ?: ??[birth year] (27 yrs) Name: ? PAM Jessica ?Visit Date: 08/11/2017 09:26 am ? JAYA PERFORMED BY: Performed By: ? Dhara Hicks RDMS Attending: ?Sandoval TAY, Emanuel Garcia Referred By: ?EMANUEL BARRETT Location: ? [facility] SERVICE(S) PROVIDED: ??UOBFOL - Efw - Growth - [place] - [id number] ? [id number] ??UOBTV - Viability - Cervical Length -Transvaginal - ?? [id number] ??[id number] INDICATIONS: ??29 weeks gestation of ?Z3A.29 ??26 [...] 08/11/2017 10:10 am) PATIENT INFO: ID #: [id number] : [birth year] (27 yrs) Name: PAM Lopez Visit Date: 08/11/2017 09:26 am JAYA PERFORMED BY: Performed By: Dhara Hicks RDMS Attending: Emanuel Barrett MD Referred By: EMANUEL BARRETT Location: [facility] SERVICE(S) PROVIDED: UOBFOL - Efw - Growth - [place] - [id number] UOBTV - Viability - Cervical Length -Transvaginal - [id number] INDICATIONS: 29 weeks gestation of Z3A.29 26 [...] Glucose, POC 141 65 - 199 mg/dL [facility] Comment: Supplemental ranges: <140 mg/dL before meals <180 mg/dL all other times of the day Blood specimen (specimen) 08/10/2017 6:41 PM EST 08/10/2017 6:41 PM EST Arturo Waterman MD POINT OF CARE TEST O JORGE ALBERTO [facility] [place] [address] * POCT Glucose (08/10/2017 1:11 PM EST) Glucose, POC 150 65 - 199 mg/dL [facility] Comment: Supplemental ranges: <140 mg/dL before meals <180 mg/dL all other times of the day Blood specimen (specimen) 08/10/2017 1:11 PM EST 08/10/2017 1:11 PM EST Arturo Waterman MD POINT OF CARE TEST O RDERAFRANNIE [facility] [place] [address] * POCT Glucose (08/10/2017 11:40 AM EST) Glucose, POC 95 65 - 199 mg/dL [facility] Comment: Supplemental ranges: <140 mg/dL before meals <180 mg/dL all other times of the day Blood specimen (specimen) 08/10/2017 11:40 AM EST 08/10/2017 11:40 AM EST Arturo Waterman MD POINT OF CARE TEST O RDERAFRANNIE [facility] [place] [address] * POCT Glucose (08/09/2017 6:58 PM EST) Glucose, POC 139 65 - 199 mg/dL [facility] Comment: Supplemental ranges: <140 mg/dL before meals <180 mg/dL all other times of the day Blood specimen (specimen) 08/09/2017 6:58 PM EST 08/09/2017 6:58 PM EST Arturo Waterman MD POINT OF CARE TEST O RDERABLES [facility] [place] [address] * POCT Glucose (08/09/2017 10:58 AM EST) Glucose, POC 97 65 - 199 mg/dL [facility] Comment: Supplemental ranges: <140 mg/dL before meals <180 mg/dL all other times of the day Blood specimen (specimen) 08/09/2017 10:58 AM EST 08/09/2017 10:58 AM EST Arturo Waterman MD POINT OF CARE TEST O RDERAFRANNIE [facility] [place] [address] * POCT Glucose (08/08/2017 9:51 PM EST) Glucose, POC 140 65 - 199 mg/dL [facility] Comment: Supplemental ranges: <140 mg/dL before meals <180 mg/dL all other times of the day Blood specimen (specimen) 08/08/2017 9:51 PM EST 08/08/2017 9:51 PM EST Arturo Waterman MD POINT OF CARE TEST O RDERAFRANNIE [facility] [place] [address] * POCT Glucose (08/08/2017 2:09 PM EST) Glucose, POC 138 65 - 199 mg/dL [facility] Comment: Supplemental ranges: <140 mg/dL before meals <180 mg/dL all other times of the day Blood specimen (specimen) 08/08/2017 2:09 PM EST 08/08/2017 2:09 PM EST Arturo Waterman MD POINT OF CARE TEST O RDERAFRANNIE [facility] [place] [address] * POCT Glucose (08/08/2017 11:56 AM EST) Glucose, POC 85 65 - 199 mg/dL [facility] Comment: Supplemental ranges: <140 mg/dL before meals <180 mg/dL all other times of the day Blood specimen (specimen) 08/08/2017 11:56 AM EST 08/08/2017 11:56 AM EST Arturo Waterman MD POINT OF CARE TEST O RDANG [facility] [place] [address] * POCT Glucose (08/07/2017 9:41 PM EST) Glucose, POC 113 65 - 199 mg/dL [facility] Comment: Supplemental ranges: <140 mg/dL before meals <180 mg/dL all other times of the day Blood specimen (specimen) 08/07/2017 9:41 PM EST 08/07/2017 9:41 PM EST Arturo Waterman MD POINT OF CARE TEST O JORGE ALBERTO Performing Organization Address City/[facility]/ZIP Co de Phone Number [facility] [address] * POCT Glucose (08/07/2017 3:04 PM EST) Glucose, POC 152 65 - 199 mg/dL [facility] Comment: Supplemental ranges: <140 mg/dL before meals <180 mg/dL all other times of the day Blood specimen (specimen) 08/07/2017 3:04 PM EST 08/07/2017 3:04 PM EST Arturo Waterman MD POINT OF CARE TEST O RDERAFRANNIE Performing Organization Address City/[facility]/ZIP Co de Phone Number [facility] [place] [address] * POCT Glucose (08/07/2017 10:04 AM EST) Glucose, POC 87 65 - 199 mg/dL [facility] Comment: Supplemental ranges: <140 mg/dL before meals <180 mg/dL all other times of the day Blood specimen (specimen) 08/07/2017 10:04 AM EST 08/07/2017 10:04 AM EST Arturo Waterman MD POINT OF CARE TEST O RDERAFRANNIE Performing Organization Address City/[facility] Co de Phone Number [facility] [place] [address] * POCT Glucose (08/06/2017 8:30 PM EST) Glucose, POC 118 65 - 199 mg/dL [facility] Comment: Supplemental ranges: <140 mg/dL before meals <180 mg/dL all other times of the day Blood specimen (specimen) 08/06/2017 8:30 PM EST 08/06/2017 8:30 PM EST Arturo Waterman MD POINT OF CARE TEST O BENJYERAFRANNIE Performing Organization Address [place]/[facility] Co de Phone Number [facility] [place] [address] * POCT Glucose (08/06/2017 3:20 PM EST) Glucose, POC 146 65 - 199 mg/dL [facility] Comment: Supplemental ranges: <140 mg/dL before meals <180 mg/dL all other times of the day Blood specimen (specimen) 08/06/2017 3:20 PM EST 08/06/2017 3:20 PM EST Arturo Waterman MD POINT OF CARE TEST O RDERAFRANNIE Performing Organization Address City/[facility] Co de Phone Number [facility] [place] [address] * POCT Glucose (08/06/2017 11:50 AM EST) Glucose, POC 136 65 - 199 mg/dL [facility] Comment: Supplemental ranges: <140 mg/dL before meals <180 mg/dL all other times of the day Blood specimen (specimen) 08/06/2017 11:50 AM EST 08/06/2017 11:50 AM EST Arturo Waterman MD POINT OF CARE TEST O RDERAFRANNIE Performing Organization Address City/[facility]/ZIP Co de Phone Number [facility] [place] [address] * POCT Glucose (08/06/2017 9:55 AM EST) Glucose, POC 89 65 - 199 mg/dL [facility] Comment: Supplemental ranges: <140 mg/dL before meals <180 mg/dL all other times of the day Blood specimen (specimen) 08/06/2017 9:55 AM EST 08/06/2017 9:55 AM EST Arturo Waterman MD POINT OF CARE TEST O RDERAFRANNIE Performing Organization Address [place]/[facility]/ZIP Co de Phone Number [facility] [place] [address] * POCT Glucose (08/05/2017 7:59 PM EST) Glucose, POC 102 65 - 199 mg/dL [facility] Comment: Supplemental ranges: <140 mg/dL before meals <180 mg/dL all other times of the day Blood specimen (specimen) 08/05/2017 7:59 PM EST 08/05/2017 7:59 PM EST Arturo Waterman MD POINT OF CARE TEST O RDERAFRANNIE Performing Organization Address City/[facility]/ZIP Co de Phone Number [facility] [place] [address] * POCT Glucose (08/05/2017 11:33 AM EST) Glucose, POC 140 65 - 199 mg/dL [facility] Comment: Supplemental ranges: <140 mg/dL before meals <180 mg/dL all other times of the day Blood specimen (specimen) 08/05/2017 11:33 AM EST 08/05/2017 11:33 AM EST Arturo Waterman MD POINT OF CARE TEST O RDERAFRANNIE [facility] [place] [address] * POCT Glucose (08/05/2017 7:36 AM EST) Glucose, POC 83 65 - 199 mg/dL [facility] Comment: Supplemental ranges: <140 mg/dL before meals <180 mg/dL all other times of the day Blood specimen (specimen) 08/05/2017 7:36 AM EST 08/05/2017 7:36 AM EST Arturo Waterman MD POINT OF CARE TEST O JORGE ALBERTO Performing Organization Address [place]/[facility] Co de Phone Number [facility] [place] [address] * POCT Glucose (08/04/2017 8:27 PM EST) Glucose, POC 116 65 - 199 mg/dL [facility] Comment: Supplemental ranges: <140 mg/dL before meals <180 mg/dL all other times of the day Blood specimen (specimen) 08/04/2017 8:27 PM EST 08/04/2017 8:27 PM EST Arturo Waterman MD POINT OF CARE TEST O RDERAFRANNIE Performing Organization Address City/[facility]/ZIP Co de Phone Number [facility] [place] [address] * POCT Glucose (08/04/2017 7:25 PM EST) Glucose, POC 169 65 - 199 mg/dL [facility] Comment: Supplemental ranges: <140 mg/dL before meals <180 mg/dL all other times of the day Blood specimen (specimen) 08/04/2017 7:25 PM EST 08/04/2017 7:25 PM EST Arturo Waterman MD POINT OF CARE TEST O JORGE ALBERTO Performing Organization Address [place]/[facility] Co de Phone Number [facility] [place] [address] * POCT Glucose (08/04/2017 3:04 PM EST) Glucose, POC 122 65 - 199 mg/dL [facility] Comment: Supplemental ranges: <140 mg/dL before meals <180 mg/dL all other times of the day Blood specimen (specimen) 08/04/2017 3:04 PM EST 08/04/2017 3:04 PM EST Arturo Waterman MD POINT OF CARE TEST O JORGE ALBERTO Performing Organization Address [place]/[facility] Co de Phone Number [facility] [place] [address] * POCT Glucose (08/04/2017 10:59 AM EST) Glucose, POC 106 65 - 199 mg/dL [facility] Comment: Supplemental ranges: <140 mg/dL before meals <180 mg/dL all other times of the day Blood specimen (specimen) 08/04/2017 10:59 AM EST 08/04/2017 10:59 AM EST Arturo Waterman MD POINT OF CARE TEST O JORGE ALBERTO Performing Organization Address [place]/[facility] Co de Phone Number [facility] [place] [address] * POCT Glucose (08/04/2017 9:06 AM EST) Glucose, POC 85 65 - 199 mg/dL [facility] Comment: Supplemental ranges: <140 mg/dL before meals <180 mg/dL all other times of the day Blood specimen (specimen) 08/04/2017 9:06 AM EST 08/04/2017 9:06 AM EST Arturo Waterman MD POINT OF CARE TEST O RDERABLES Performing Organization Address [place]/[facility] Co de Phone Number [facility] [place] [address] * POCT Glucose (08/03/2017 7:24 PM EST) Glucose, POC 118 65 - 199 mg/dL [facility] Comment: Supplemental ranges: <140 mg/dL before meals <180 mg/dL all other times of the day Blood specimen (specimen) 08/03/2017 7:24 PM EST 08/03/2017 7:24 PM EST Arturo Waterman MD POINT OF CARE TEST O JORGE ALBERTO Performing Organization Address [place]/[facility] Co de Phone Number [facility] [place] [address] * POCT Glucose (08/03/2017 11:22 AM EST) Glucose, POC 106 65 - 199 mg/dL [facility] Comment: Supplemental ranges: <140 mg/dL before meals <180 mg/dL all other times of the day Blood specimen (specimen) 08/03/2017 11:22 AM EST 08/03/2017 11:22 AM EST Li Sepulveda MD POINT OF CARE TEST O JORGE ALBERTO Performing Organization Address [place]/[facility] Co de Phone Number [facility] [place] [address] * POCT Glucose (08/03/2017 8:52 AM EST) Glucose, POC 86 65 - 199 mg/dL [facility] Comment: Supplemental ranges: <140 mg/dL before meals <180 mg/dL all other times of the day Blood specimen (specimen) 08/03/2017 8:52 AM EST 08/03/2017 8:52 AM EST Li Sepulveda MD POINT OF CARE TEST O RDERABLES Performing Organization Address [place]/[facility] Co de Phone Number [facility] [place] [address] * POCT Glucose (08/02/2017 6:59 PM EST) Glucose, POC 141 65 - 199 mg/dL [facility] Comment: Supplemental ranges: <140 mg/dL before meals <180 mg/dL all other times of the day Blood specimen (specimen) 08/02/2017 6:59 PM EST 08/02/2017 6:59 PM EST Li Sepulveda MD POINT OF CARE TEST O RDANG Performing Organization Address [place]/[facility] de Phone Number [facility] [place] [address] * POCT Glucose (08/02/2017 3:42 PM EST) Glucose, POC 138 65 - 199 mg/dL [facility] Comment: Supplemental ranges: <140 mg/dL before meals <180 mg/dL all other times of the day Blood specimen (specimen) 08/02/2017 3:42 PM EST 08/02/2017 3:42 PM EST Li Sepulveda MD POINT OF CARE TEST O RDERAFRANNIE Performing Organization Address [place]/[facility] Co de Phone Number [facility] [place] [address] * POCT Glucose (08/02/2017 11:58 AM EST) Glucose, POC 128 65 - 199 mg/dL [facility] Comment: Supplemental ranges: <140 mg/dL before meals <180 mg/dL all other times of the day Blood specimen (specimen) 08/02/2017 11:58 AM EST 08/02/2017 11:58 AM EST Li Sepulveda MD POINT OF CARE TEST O RDANG Performing Organization Address [place]/[facility]/ZIP Co de Phone Number [facility] [place] [address] * POCT Glucose (08/02/2017 8:01 AM EST) Glucose, POC 81 65 - 199 mg/dL [facility] Comment: Supplemental ranges: <140 mg/dL before meals <180 mg/dL all other times of the day Blood specimen (specimen) 08/02/2017 8:01 AM EST 08/02/2017 8:01 AM EST Li Sepulveda MD POINT OF CARE TEST O RDERABLES [facility] [place] [address] * POCT Glucose (08/01/2017 7:58 PM EST) Glucose, POC 102 65 - 199 mg/dL [facility] Comment: Supplemental ranges: <140 mg/dL before meals <180 mg/dL all other times of the day Blood specimen (specimen) 08/01/2017 7:58 PM EST 08/01/2017 7:58 PM EST Li Sepulveda MD POINT OF CARE TEST O RDERAFRANNIE [facility] [place] [address] * POCT Glucose (08/01/2017 3:29 PM EST) Glucose, POC 124 65 - 199 mg/dL [facility] Comment: Supplemental ranges: <140 mg/dL before meals <180 mg/dL all other times of the day Blood specimen (specimen) 08/01/2017 3:29 PM EST 08/01/2017 3:29 PM EST Li Sepulveda MD POINT OF CARE TEST O RDERABLES [facility] [place] [address] * POCT Glucose (08/01/2017 10:57 AM EST) Glucose, POC 104 65 - 199 mg/dL [facility] Comment: Supplemental ranges: <140 mg/dL before meals <180 mg/dL all other times of the day Blood specimen (specimen) 08/01/2017 10:57 AM EST 08/01/2017 10:57 AM EST Li Sepulveda MD POINT OF CARE TEST O RDERAFRANNIE [facility] [place] [address] * POCT Glucose (08/01/2017 6:08 AM EST) Glucose, POC 114 65 - 199 mg/dL [facility] Comment: Supplemental ranges: <140 mg/dL before meals <180 mg/dL all other times of the day Blood specimen (specimen) 08/01/2017 6:08 AM EST 08/01/2017 6:08 AM EST Li Sepulveda MD POINT OF CARE TEST O JORGE ALBERTO Performing Organization Address City/[facility]/ZIP Co de Phone Number [facility] [place] [address] * POCT Glucose (07/31/2017 7:38 PM EST) Glucose, POC 129 65 - 199 mg/dL [facility] Comment: Supplemental ranges: <140 mg/dL before meals <180 mg/dL all other times of the day Blood specimen (specimen) 07/31/2017 7:38 PM EST 07/31/2017 7:38 PM EST Li Sepulveda MD POINT OF CARE TEST O JORGE ALBERTO [facility] [place] [address] * POCT Glucose (07/31/2017 4:34 PM EST) Glucose, POC 152 65 - 199 mg/dL [facility] Comment: Supplemental ranges: <140 mg/dL before meals <180 mg/dL all other times of the day Blood specimen (specimen) 07/31/2017 4:34 PM EST 07/31/2017 4:34 PM EST Li Sepulveda MD POINT OF CARE TEST O RDERAFRANNIE [facility] [place] [address] * POCT Glucose (07/31/2017 2:10 PM EST) Glucose, POC 89 65 - 199 mg/dL [facility] Comment: Supplemental ranges: <140 mg/dL before meals <180 mg/dL all other times of the day Blood specimen (specimen) 07/31/2017 2:10 PM EST 07/31/2017 2:10 PM EST Li Sepulveda MD POINT OF CARE TEST O JORGE ALBERTO Performing Organization Address City/[facility]/ZIP Co de Phone Number [facility] [place] [address] * POCT Glucose (07/31/2017 11:09 AM EST) Glucose, POC 152 65 - 199 mg/dL [facility] Comment: Supplemental ranges: <140 mg/dL before meals <180 mg/dL all other times of the day Blood specimen (specimen) 07/31/2017 11:09 AM EST 07/31/2017 11:09 AM EST Li Sepulveda MD POINT OF CARE TEST O RDERAFRANNIE [facility] [place] [address] * POCT Glucose (07/31/2017 6:15 AM EST) Glucose, POC 95 65 - 199 mg/dL [facility] Comment: Supplemental ranges: <140 mg/dL before meals <180 mg/dL all other times of the day Blood specimen (specimen) 07/31/2017 6:15 AM EST 07/31/2017 6:15 AM EST iL Sepulveda MD POINT OF CARE TEST O RDERAFRANNIE Performing Organization Address [place]/[facility] Co de Phone Number [facility] [place] [address] * POCT Glucose (07/31/2017 2:19 AM EST) Glucose, POC 127 65 - 199 mg/dL [facility] Comment: Supplemental ranges: <140 mg/dL before meals <180 mg/dL all other times of the day Blood specimen (specimen) 07/31/2017 2:19 AM EST 07/31/2017 2:19 AM EST Li Sepulveda MD POINT OF CARE TEST O JORGE ALBERTO Performing Organization Address [place]/[facility] Co de Phone Number [facility] [place] [address] * POCT Glucose (07/30/2017 10:11 PM EST) Glucose, POC 112 65 - 199 mg/dL [facility] Comment: Supplemental ranges: <140 mg/dL before meals <180 mg/dL all other times of the day Blood specimen (specimen) 07/30/2017 10:11 PM EST 07/30/2017 10:11 PM EST Li Sepulveda MD POINT OF CARE TEST O RDANG Performing Organization Address [place]/[facility] Co de Phone Number [facility] [place] [address] * POCT Glucose (07/30/2017 5:26 PM EST) Glucose, POC 128 65 - 199 mg/dL [facility] Comment: Supplemental ranges: <140 mg/dL before meals <180 mg/dL all other times of the day Blood specimen (specimen) 07/30/2017 5:26 PM EST 07/30/2017 5:26 PM EST Li Sepulveda MD POINT OF CARE TEST O JORGE ALBERTO Performing Organization Address [place]/[facility] Co de Phone Number [facility] [place] [address] * POCT Glucose (07/30/2017 1:18 PM EST) Glucose, POC 152 65 - 199 mg/dL [facility] Comment: Supplemental ranges: <140 mg/dL before meals <180 mg/dL all other times of the day Blood specimen (specimen) 07/30/2017 1:18 PM EST 07/30/2017 1:18 PM EST Li Sepulveda MD POINT OF CARE TEST O JORGE ALBERTO Performing Organization Address [place]/[facility] de Phone Number [facility] [place] [address] * POCT Glucose (07/30/2017 9:39 AM EST) Glucose, POC 134 65 - 199 mg/dL [facility] Comment: Supplemental ranges: <140 mg/dL before meals <180 mg/dL all other times of the day Blood specimen (specimen) 07/30/2017 9:39 AM EST 07/30/2017 9:39 AM EST Li Sepulveda MD POINT OF CARE TEST O JORGE ALBERTO Performing Organization Address [place]/[facility] Co de Phone Number [facility] [place] [address] * POCT Glucose (07/30/2017 5:14 AM EST) Glucose, POC 125 65 - 199 mg/dL [facility] Comment: Supplemental ranges: <140 mg/dL before meals <180 mg/dL all other times of the day Blood specimen (specimen) 07/30/2017 5:14 AM EST 07/30/2017 5:14 AM EST Li Sepulveda MD POINT OF CARE TEST O JORGE ALBERTO Performing Organization Address [place]/[facility] Co de Phone Number [facility] [place] [address] * POCT Glucose (07/30/2017 1:13 AM EST) Glucose, POC 153 65 - 199 mg/dL [facility] Comment: Supplemental ranges: <140 mg/dL before meals <180 mg/dL all other times of the day Blood specimen (specimen) 07/30/2017 1:13 AM EST 07/30/2017 1:13 AM EST Li Sepulveda MD POINT OF CARE TEST O JORGE ALBERTO Performing Organization Address [place]/[facility] Co de Phone Number [facility] [place] [address] * POCT Glucose (07/29/2017 9:06 PM EST) Glucose, POC 136 65 - 199 mg/dL [facility] Comment: Supplemental ranges: <140 mg/dL before meals <180 mg/dL all other times of the day Blood specimen (specimen) 07/29/2017 9:06 PM EST 07/29/2017 9:06 PM EST Li Sepulveda MD POINT OF CARE TEST O JORGE ALBERTO Performing Organization Address [place]/[facility] Co de Phone Number [facility] [place] [address] * POCT Glucose (07/29/2017 6:06 PM EST) Glucose, POC 137 65 - 199 mg/dL [facility] Comment: Supplemental ranges: <140 mg/dL before meals <180 mg/dL all other times of the day Blood specimen (specimen) 07/29/2017 6:06 PM EST 07/29/2017 6:06 PM EST Li Sepulveda MD POINT OF CARE TEST O JORGE ALBERTO Performing Organization Address [place]/[facility] Phone Number [facility] [address] * POCT Glucose (07/29/2017 1:53 PM EST) Glucose, POC 130 65 - 199 mg/dL [facility] Comment: Supplemental ranges: <140 mg/dL before meals <180 mg/dL all other times of the day Blood specimen (specimen) 07/29/2017 1:53 PM EST 07/29/2017 1:53 PM EST Li Sepulveda MD POINT OF CARE TEST O JORGE ALBERTO Performing Organization Address [facility] de Phone Number [facility] [place] [address] * POCT Glucose (07/29/2017 9:37 AM EST) Glucose, POC 149 65 - 199 mg/dL [facility] Comment: Supplemental ranges: <140 mg/dL before meals <180 mg/dL all other times of the day Blood specimen (specimen) 07/29/2017 9:37 AM EST 07/29/2017 9:37 AM EST Li Sepulveda MD POINT OF CARE TEST O JORGE ALBERTO Performing Organization Address [place]/[facility] Phone Number [facility] [address] * POCT Glucose (07/29/2017 5:16 AM EST) Glucose, POC 130 65 - 199 mg/dL [facility] Comment: Supplemental ranges: <140 mg/dL before meals <180 mg/dL all other times of the day Blood specimen (specimen) 07/29/2017 5:16 AM EST 07/29/2017 5:16 AM EST Li Sepulveda MD POINT OF CARE TEST O RDERAFRANNIE Performing Organization Address [place]/[facility] Co de Phone Number [facility] [place] [address] * POCT Glucose (07/29/2017 1:10 AM EST) Glucose, POC 135 65 - 199 mg/dL [facility] Comment: Supplemental ranges: <140 mg/dL before meals <180 mg/dL all other times of the day Blood specimen (specimen) 07/29/2017 1:10 AM EST 07/29/2017 1:10 AM EST Li Sepulveda MD POINT OF CARE TEST O RDANG Performing Organization Address [facility] Phone Number [facility] [place] [address] * POCT Glucose (07/28/2017 9:05 PM EST) Glucose, POC 127 65 - 199 mg/dL [facility] Comment: Supplemental ranges: <140 mg/dL before meals <180 mg/dL all other times of the day Blood specimen (specimen) 07/28/2017 9:05 PM EST 07/28/2017 9:05 PM EST Li Sepulveda MD POINT OF CARE TEST O RDERAFRANNIE Performing Organization Address [facility] Phone Number [facility] [place] [address] * Group B Streptococcus Screen (07/28/2017 6:55 PM EST) GBS Screen Neg [facility] Pooled specimen from vaginal introitus and rectal swab (specimen) 07/28/2017 6:55 PM EST 07/28/2017 7:41 PM EST Comment:Penicillin Allergy?- >No Narrative Resulting Agency Comment Spec In Lab Li Sepulveda MD MICROBIOLOGY - GENER AL ORDERABLES Performing Organization Address [place]/[facility] Co de Phone Number [facility] [place] [address] * Antibody screen manual (07/28/2017 6:55 PM EST) AB Screen Interp Negative [facility] Blood specimen (specimen) Venous Draw / Unknown 07/28/2017 6:55 PM EST 07/28/2017 7:55 PM EST Narrative Resulting Agency Comment Spec In Lab Emerita Rosario MD BLOOD BANK LAB ORDER KURT Performing Organization Address City/[facility]/ZIP Co de Phone Number [facility] [place] [address] * Ab Comment (07/28/2017 6:55 PM EST) Ab Information INTERPRETATION : The patient's serum has a casey-agglutinin that reacts only with solid-phase antigens. ??No casey-agglutinin is detected when red cells in solution are used in the assay. ??The casey-agglutinin detected is not clinically significant. Kanika Williamson i, MD, PhD Transfusion Medicine Service 08/06/17 17:28 [facility] Comment: KANIKA LIM, Pathologist Verified:08/06/17 Blood specimen (specimen) 07/28/2017 6:55 PM EST 07/28/2017 7:58 PM EST Narrative Resulting Agency Comment Spec In Lab Emerita Rosario MD BLOOD BANK LAB ORDER KURT Performing Organization Address City/[facility]/ZIP Co de Phone Number [facility] [place] [address] * Antibody identification (07/28/2017 6:55 PM EST) Ab Identified Panagglutinin [facility] Blood specimen (specimen) 07/28/2017 6:55 PM EST 07/28/2017 7:58 PM EST Narrative Resulting Agency Comment Spec In Lab Li Sepulveda MD BLOOD BANK LAB ORDER KURT [facility] [place] [address] * ABORH Recheck Status (07/28/2017 6:55 PM EST) ABORH Recheck Order Order Placed [facility] ABORH Type Recheck Complete [facility] Blood specimen (specimen) 07/28/2017 6:55 PM EST 07/28/2017 7:58 PM EST Narrative Resulting Agency Comment Spec In Lab Li Sepulveda MD BLOOD BANK LAB ORDER KURT Performing Organization Address City/[facility]/ZIP Co de Phone Number [facility] [place] [address] * Antibody screen (07/28/2017 6:55 PM EST) Ab Screen Interp Positive [facility] Expires at [id number] on: 07/31/2017 [facility] Blood specimen (specimen) 07/28/2017 6:55 PM EST 07/28/2017 7:58 PM EST Narrative Resulting Agency Comment Spec In Lab Li Sepulveda MD BLOOD BANK LAB ORDER KURT [facility] [place] [address] * ABO/Rh Typing (07/28/2017 6:55 PM EST) ABORH Type B Pos [facility] Blood specimen (specimen) 07/28/2017 6:55 PM EST 07/28/2017 7:58 PM EST Narrative Resulting Agency Comment Spec In Lab Li Sepulveda MD BLOOD BANK LAB ORDER KURT [facility] [place] [address] * (ABNORMAL) Differential, Automated (07/28/2017 6:55 PM EST) Neutrophil % 72.4 % [facility] Neutrophil Absolute 7.06(H) 1.70 - 6.10 x10(3)/[facility] Lymph % 19.0 % [facility] Lymphocytes Abs 1.8 0.9 - 3.2 x10(3)/[facility] Monocyte % 7.2 % [facility] Monocyte Abs 0.7 0.3 - 0.9 x10(3)/[facility] Eos % 0.8 % [facility] Eosinophils Abs 0.1 0.0 - 0.4 x10(3)/[facility] Basophil % 0.2 % [facility] Baso Absolute 0.0 0.0 - 0.1 x10(3)/[facility] Immature Gran % 0.40 % [facility] Comment: Immature granulocytes(IG's)percentage and absolute count will include metamyelocytes, myelocytes, and promyelocytes. Blood smears from CBCs yielding IG's will be scanned manually for concordance. If this scan disagrees with the automated IG or if promyelocytes are noted, a manual differential will be performed. Immature Gran Absolute 0.04 0.00 - 0.04 x10(3)/[facility] Blood specimen (specimen) 07/28/2017 6:55 PM EST 07/28/2017 7:24 PM EST Narrative Resulting Agency Comment Spec In Lab Li Sepulveda MD HEMATOLOGY ORDERABLE S [facility] [place] [address] * (ABNORMAL) Hemogram (07/28/2017 6:55 PM EST) Pathologist [facility] White Blood Cell 9.8(H) 4.0 - 9.5 x10(3)/[facility] Red Blood Cell 3.89(L) 4.00 - 5.21 x10(6)/mc L [facility] Hemoglobin 11.4(L) 11.7 - 15.5 gm/dL [facility] Hematocrit 33.2(L) 35.7 - 45.8 % [facility] Mean Cell Volume 85.3 82.6 - 94.4 fL [facility] Mean Cell Hemoglobin 29.3 27.1 - 32.0 pg [facility] Mean Cell Hemoglobin Concentration 34.3 31.7 - 35.0 gm/dL [facility] Platelet 274 145 - 357 x10(3)/mc L [facility] RDW Standard Deviation 40.0 37.0 - 46.0 fL [facility] RDW coefficient of variation 13.0 11.5 - 14.1 % [facility] Mean Platelet Volume 8.5 7.6 - 12.9 fL [facility] NRBC% auto 0.0 % [facility] NRBC Absolute 0.000 0.000 - 0.000 x10(3)/mc L [facility] Blood specimen (specimen) 07/28/2017 6:55 PM EST 07/28/2017 7:24 PM EST Narrative Resulting Agency Comment Spec In Lab Li Sepulveda MD HEMATOLOGY ORDERABLE S Performing Organization Address City/[facility]/ZIP Co de Phone Number [facility] [place] [address] * Group B Strep Culture Screen (07/28/2017 6:55 PM EST) Group B Streptococcus Culture No Group B Streptococci isolated [facility] Pooled specimen from vaginal introitus and rectal swab (specimen) 07/28/2017 6:55 PM EST 07/28/2017 7:41 PM EST Comment:PENICILLIN ALLERGY?- >NO Narrative Resulting Agency Comment Spec In Lab Li Sepulveda MD MICROBIOLOGY - GENER AL ORDERABLES [facility] [place] [address] * THC (Marijuana), Urine Confirmation (07/28/2017 6:45 [...] developed and its performance characteristics ?determined by [facility] in a manner consistent with CLIA ?requirements. This test has not been cleared or approved by ?the U.S. Food and Drug Administration. ?Test Performed by: ?[facility] ?[address] [place] [address] [facility] Urine specimen (specimen) 07/28/2017 6:45 PM EST 07/29/2017 8:33 AM EST Narrative Resulting Agency Comment Spec In Lab Emerita Rosario MD LAB SEND OUT ORDERAB LES [facility] [place] [address] * (ABNORMAL) TEREZA Screen w/ Confirmation (07/28/2017 6:45 PM EST) Barbiturates Screen, Urine None Detected None Detected [facility] Comment: The barbiturate screen detects [...] Benzodiazepines Screen, Urine None Detected None Detected [facility] Comment: The benzodiazepines screen detects [...] Cocaine Screen, Urine None Detected None Detected [facility] Comment: The cocaine metabolites screen detects benzoylecgonine (Cocaine Metabolite) at concentrations >150 ng/mL. A ? Presumptive Positive? result indicates that the screening result was positive but has not yet been confirmed by a highly-specific method. As with any screen, occasional false positive results from cross-reacting substances may occur. Not for Medico-Legal Purposes. Methadone Metabolites Screen, Urine None Detected None Detected [facility] Comment: The methadone metabolite screen detects EDDP (major methadone metabolite) at concentrations >100 ng/mL. A ? Presumptive Positive? result indicates that the screening result was positive but has not yet been confirmed by a highly-specific method. As with any screen, occasional false positive results from cross-reacting substances may occur. Not for Medico-Legal Purposes. Opiate Screen, Urine None Detected None Detected [facility] Comment: The opiates screen detects [...] Cannabinoid Screen, Urine Presumptive Pos(A) None Detected [facility] Comment: The marijuana metabolites screen detects the THC metabolite (80-vxr-9-carboxy-delta 9-THC) at concentrations >20 ng/mL. A ? Presumptive Positive? result indicates that the screening result was positive but has not yet been confirmed by a highly-specific method. As with any screen, occasional false positive results from cross-reacting substances may occur. Not for Medico-Legal Purposes. Oxycodone Screen, Urine None Detected None Detected [facility] Comment: The oxycodone screen detects oxycodone and oxymorphone at concentrations >100 ng/mL. A ? Presumptive Positive? result indicates that the screening result was positive but has not yet been confirmed by a highly-specific method. As with any screen, occasional false positive results from cross-reacting substances may occur. Not for Medico-Legal Purposes. Buprenorphine Screen, Urine None Detected None Detected [facility] Comment: The buprenorphine screen detects buprenorphine at concentrations >5 ng/mL. A ? Presumptive Positive? result indicates that the screening result was positive but has not yet been confirmed by a highly-specific method. As with any screen, occasional false positive results from cross-reacting substances may occur. Not for Medico-Legal Purposes. Fentanyl Screen, Urine None Detected None Detected [facility] Comment: The fentanyl screen detects fentanyl at concentrations >2 ng/mL. A ? Presumptive Positive? result indicates that the screening result was positive but has not yet been confirmed by a highly-specific method. As with any screen, occasional false positive results from cross-reacting substances may occur. Not for Medico-Legal Purposes. Tricyclics Screen, Urine None Detected None Detected [facility] Comment: The tricyclics screen detects [...] Ethanol Screen, Urine None Detected None Detected [facility] Comment:This urine ethanol a ssay detects ethanol at concentrations >/= 100 mg/L. Amphetamines Screen, Urine None Detected None Detected [facility] Comment: The amphetamine screen detects d-amphetamine and d-methamphetamine at concentrations >300 ng/mL. A ? Presumptive Positive? result indicates that the screening result was positive but has not yet been confirmed by a highly-specific method. As with any screen, occasional false positive results from cross-reacting substances may occur. Not for Medico-Legal Purposes. Adulterants Screen, Urine None Detected None Detected [facility] Comment: No adulteration or dilution [...] Sepulveda MD CHEMISTRY ORDERABLES Performing Organization Address City/[facility]/ZIP Co de Phone Number [facility] [place] [address] * TEREZA Request (07/28/2017 6:45 PM EST) TEREZA Conf Requested Yes [facility] TEREZA Requested See Comment [facility] Comment:Refer to the TEREZA Scr een w/ Confirmation order for results. Urine specimen (specimen) 07/28/2017 6:45 PM EST 07/28/2017 7:23 PM EST Narrative Resulting Agency Comment Spec In Lab iL Sepulveda MD URINE ORDERABLES Performing Organization Address City/[facility]/ZIP Co de Phone Number [facility] [place] [address] documented in this encounter Visit Diagnoses Diagnosis [...] dextrose 5% 100 mL 2 g, Intravenous, ARCHITECTURAL PROJECT MANAGER TO O.R., 1 dose, On Thu09/11/17 at 1000, Administer over 30 Minutes, Indication for (Active or Suspected): Prophylaxis New Bag 09/11/2017 9:57 AM EST 2 g 200 mL/hr citric acid-sodium citrate (BICITRA) oral solution 30 mL 30 mL, Oral, ARCHITECTURAL PROJECT MANAGER TO O.R., 1 dose, On Thu09/11/17 at [...] 30 minutes if pruritis not relieved. Per CNC WOOD LATHE OPERATOR order., Routine Given 09/12/2017 4:12 AM [...] EST 324 mg HYDROmorphone (DILAUDID) 1 mg/mL [employer] OPERATOR 50 mL Intravenous, CNC WOOD LATHE OPERATOR ONLY, Starting on Thu09/11/17 at 1500, [...] PM EST 17 g vitamin 27 & [id number] 60 mg iron-1 mg tablet Tab 1 [...] Yumiko Cochran, NYA)[phone] (Given - Provider: Yumiko Cocharn, NYA) 0256 (Given - Provider: Pam Valenzuela [...] Routine documented in this encounter Care Teams Acid Regenerator Relationship Specialty Start Date End Date None None PCP - General 05/29/17 09/02/21 documented as of this encounter
--- OUTSIDE RECORDS SUMMARY | 2024-09-29 18:08 | XMS_ITS | Encounter Summary ---
Author Organization [facility] Address [address] [place] [address] Care Team Providers Care Right Of Way Clearer Name Role Phone Unknown, Provider Primary Care Provider Simeon blankenship Encounter Details Date Type Department Care Team (Late st Contact Info) Description 04/23/2022 Lab Requisition [facility] Pathology & Laboratory Medicine - [address] [address] Outr Resulting Lab, Provider Social History Tobacco [...] 97 - 169 ng/dL 04/23/2022 19:40 EDT [facility] Blood VENOUS BLOOD / Unknown 04/23/2022 9:56 EDT 04/23/2022 17:15 EDT us Provider Outr Resulting Lab CHEMISTRY & BLOOD GA S ORDERABLES Final Result [facility] [address] [place] [address] * HOMOCYSTEINE (04/23/2022 9:56 EDT) Homocysteine 7.9 5.0 - 13.9 umol/L 04/25/2022 7:53 EDT [facility] Blood VENOUS BLOOD / Unknown 04/23/2022 9:56 EDT 04/23/2022 17:16 EDT Narrative [facility] - 04/25/2022 7:53 EDT Reference [...] & BLOOD GA S ORDERABLES Final Result [facility] [address] [place] [address] documented in this encounter Visit Diagnoses Not on filedocumented in this encounter Care Teams Right Of Way Clearer Relationship Specialty Start Date End Date Unknown, Provider, PCP - General 05/06/12 documented as of this encounter
--- OUTSIDE RECORDS SUMMARY | 2024-09-29 18:08 | XMS_ITS | Encounter Summary ---
Author Organization [facility] Address [facility] [place] [address] Care Team Providers Care Field Naturalist Name Role Phone None Primary Care Provider Unavailabl e Encounter Details Date Type Department Care Team (Late st Contact Info) Description 07/06/2017 Telephone Obstetrics and Gynecology at [facility] [place] [address] Luis Rasmussen MD [facility] DR OBSTETRICS & [place] [address] Social History Tobacco Use Types Packs/Day Years [...] on filedocumented in this encounter Care Teams Field Naturalist Relationship Specialty Start Date End Date None None PCP - General 05/29/17 09/02/21 documented as of this encounter
--- OUTSIDE RECORDS SUMMARY | 2024-09-29 18:08 | XMS_ITS | Encounter Summary ---
Author Organization [facility] Address [facility] [place] [address] Care Team Providers Care Custom Van Converter Name Role Phone Daly Souza MD Primary Care Provider [phone] Encounter Details Date Type Department Care Team (Late st Contact Info) Description 04/17/2017 Orders Only Obstetrics [place] [address] Crow Martines MD [facility] DR OBSTETRICS [place] [address] Gestational diabetes mellitus (GDM) in second trimester, [...] ?? (Age): 1990(27y) ? Med Rec#: ? [id number] ?Sex: ?F ? Site Loc: ? [facility] ?Ht / Wt: ??(cm)/ (kg) ? Pt. Loc: ? Study Date: ?? 06/16/2017 ?Pt. Type: Study Quality: ? Referring: Jane Martines Reading: Ike Thomas I ([id number]) Turret Lathe Machinist: Lolita [place] Diagnosis: *ICD-10-PCS Gestational diabetes mellitus in , unspecified control (O24.419) BP: ? / SUMMARY: 1. A echocardiogram was performed at 21wk4d gestation based on estimated due date 10/23/2017, for indication of presumed pre-gestational diabetes. Fair quality images were obtained. ??The fetus is in breech position. 2. Normal heart rate (150 ??bpm). Normal mechanical RI interval (124 ms). No arrhythmia detected. 3. [...] a patent foramen ovale (PFO). ?There is jizhc-jf-hpkj shunting across the patent foramen ovale with [...] is a patent ductus arteriosus. ?There is ocnld-zi-krdo shunting across the patent ductus arteriosus with [...] 13:41:41 Images reviewed and interpretation verified [facility] Card[facility]ound [facility] Procedure Note Ike Thomas MD - 06/16/2017 Procedure: Pediatric Echocardiogram Patient: ROBERT CUADRA(Age): 1990(27y) Med Rec#: [id number] Sex: F Site Loc: [facility] Ht / Wt: (cm)/ (kg) Pt. Loc: Study Date: 06/16/2017 Pt. Type: Study Quality: Referring: Jane Martines Reading: Ike Thomas I ([id number]) Turret Lathe Machinist: Lolita [place] Diagnosis: *ICD-10-PCS Gestational diabetes mellitus in , unspecified control (O24.419) BP: / SUMMARY: 1. A echocardiogram was performed at 21wk4d gestation based on estimated due date 10/23/2017, for indication of presumed pre-gestational diabetes. Fair quality images were obtained. The fetus is in breech position. 2. Normal heart rate (150 bpm). Normal mechanical RI interval (124 ms). No arrhythmia detected. 3. [...] a patent foramen ovale (PFO). There is rthvj-gi-zghw shunting across the patent foramen ovale with [...] is a patent ductus arteriosus. There is hotrt-lh-ffzr shunting across the patent ductus arteriosus with [...] 13:41:41 Images reviewed and interpretation verified [facility] Cardiac Ultrasound Laboratory E Yeny Martines MD [...] 01:53 pm) PATIENT INFO: ID #: ? [id number] ?: ??[birth year] (27 yrs) Name: ? PAM Lopez ?Visit Date: 05/29/2017 10:27 am ? ROBERT PERFORMED BY: Performed By: ? Ruth Ann Dixon RDMS Attending: ?Conrad TAY, E ??Yeny Referred By: ?MONIQUE ORR MD Location: ? [place] SERVICE(S) PROVIDED: ??[facility] - Detailed Morphology - [id number] ? 02311 ??UOBTV - Viability - Cervical Length -Transvaginal - ?? 30260 ??[id number] INDICATIONS: ??19 weeks gestation of ?Z3A.19 ??INSULIN [...] Arch: ? Visualized SVC: ? Visualized Cardiac [place]: ?Visualized Diaphragm: ? Visualized 3 Vessel View: [...] 05/29/2017 01:53 pm) PATIENT INFO: ID #: [id number] : [birth year] (27 yrs) Name: PAM Lopez Visit Date: 05/29/2017 10:27 am ROBERT PERFORMED BY: Performed By: Ruth Ann Dixon RDMS Attending: Crow Martines MD Referred By: MONIQUE ORR MD Location: [place] SERVICE(S) PROVIDED: [facility] - Detailed Morphology - [id number] UOBTV - Viability - Cervical Length -Transvaginal - 14820 [id number] INDICATIONS: 19 weeks gestation of Z3A.19 INSULIN [...] Visualized Ductal Arch: Visualized SVC: Visualized Cardiac [place]: Visualized Diaphragm: Visualized 3 Vessel View: Visualized [...] unspecified documented in this encounter Care Teams Custom Van Converter Relationship Specialty Start Date End Date Daly Souza MD [facility] [address] [facility] [employer] [address] PCP - General 07/16/10 05/28/17 documented as of this encounter
--- OUTSIDE RECORDS SUMMARY | 2024-09-29 18:08 | XMS_ITS | Encounter Summary ---
Author Organization [facility] Address [facility] [place] [address] Care Team Providers Care Quality Assurance Manager Name Role Phone None Primary Care Provider Unavailabl e Encounter Details Date Type Department Care Team ([facility] Contact Info) Description 06/20/2017 Telephone Obstetrics and Gynecology at [facility] [place] [address] Luis Rasmussen MD [facility] DR OBSTETRICS [place] [address] Social History Tobacco Use Types Packs/Day Years [...] ~2 hours out. She is closer to [facility] and reports she will go there if she doesn't feel movement in the next hour or so. If she goes in, she will call and notify me so that I may give the providers at [facility] advanced notice of her arrival. LUIS RASMUSSEN MD PGY4 06/20/2017 documented in this encounter Plan of Treatment Not on file documented as of this encounter Visit Diagnoses Not on filedocumented in this encounter Care Teams Quality Assurance Manager Relationship Specialty Start Date End Date None None PCP - General 05/29/17 09/02/21 documented as of this encounter
--- OUTSIDE RECORDS SUMMARY | 2024-09-29 18:08 | XMS_ITS | Encounter Summary ---
Author Organization [facility] Address [facility] [place] [address] Care Team Providers Care Agricultural Loan Officer Name Role Phone None Primary Care Provider Unavailabl e Reason for Visit * Consultation (Routine) - Closed Specialty Diagnoses / Procedures Referred By Jose Enrique t Referred To Contact Obstetrics and Gynecology Diagnoses INSULIN DEP GDM Procedures U/S Isela Hutton MD [address] [place] [address] [facility] Metalizing Machine Operator [address] [place] [address] Referral ID Status Reason Start Date Expiration Date Visits Re quested Visits Authorized [id number] Closed 04/17/2017 04/17/2018 1 1 Encounter Details Date Type Department Care Team (Latest Contact Info) Description 05/29/2017 10:45 AM EDT Procedure visit Obstetrics [place] [address] Crow Martines MD [facility] DR OBSTETRICS [place] [address] Insulin controlled gestational diabetes mellitus [...] patient plans to transfer her care to [facility] for the duration of the . She [...] Medication Sig Dispense Refill ??? vitamin with edujkuwh-En-Lvkr-FA Tablet Take 1 tablet by mouth daily. [...] will arrange to have an appointment in [facility] that day as well. We will contact [...] MD 05/29/2017 Cc: Isela Blunt MD [address] [place] [phone] , with copy of ultrasound report documented [...] 11:19 ?am) PATIENT INFO: ID #: ? [id number] ?: ??[birth year] (27 yrs) Name: ? PAM Lopez ?Visit Date: 07/09/2017 10:00 am ? ROBERT PERFORMED BY: Performed By: ? Ruth Ann Dixon RDMS Attending: ?Sandoval TAY, Lolita Garcia Referred By: ?Crow MARTINES Location: ? [place] SERVICE(S) PROVIDED: ??UOBFOL - Efw - Growth - Hernandez - [id number] ? 28178 ??UOBTV - Viability - Cervical Length -Transvaginal - ?? 55180 ??[id number] INDICATIONS: ??24 weeks gestation of ?Z3A.24 ??placenta [...] 07/09/2017 11:19 am) PATIENT INFO: ID #: [id number] : [birth year] (27 yrs) Name: PAM Lopez Visit Date: 07/09/2017 10:00 am ROBERT PERFORMED BY: Performed By: Ruth Ann Dixon RDMS Attending: Lolita Nick MD Referred By: Crow MARTINES Location: [place] SERVICE(S) PROVIDED: UOBFOL - Efw - Growth - Hernandez - [id number] UOBTV - Viability - Cervical Length -Transvaginal - 69334 [id number] INDICATIONS: 24 weeks gestation of Z3A.24 placenta [...] Gram Positive organisms , probable contaminant(A ) [facility] Urine specimen obtained by clean catch procedure (specimen) 05/29/2017 10:45 AM EDT 05/29/2017 5:20 PM EDT Narrative Resulting Agency Comment Spec In Lab Jayshree Whatley RN MICROBIOLOGY - G ENERAL ORDERABLES [facility] [place] [address] documented in this encounter Visit Diagnoses Diagnosis Insulin controlled gestational diabetes mellitus (GDM) in second trimester 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
--- OUTSIDE RECORDS SUMMARY | 2024-09-29 18:08 | XMS_ITS | Encounter Summary ---
Author Organization [facility] Address [facility] [place] [address] Care Team Providers Care Maintenance Mechanic Technician Name Role Phone None Primary Care Provider Unavailabl e Encounter Details Date Type Department Care Team ([facility] st Contact Info) Description 07/05/2017 Telephone Obstetrics and Gynecology at [facility] [place] [address] Luis Rasmussen MD [facility] DR OBSTETRICS & [place] [address] Social History Tobacco Use Types Packs/Day Years [...] on filedocumented in this encounter Care Teams Maintenance Mechanic Technician Relationship Specialty Start Date End Date None None PCP - General 05/29/17 09/02/21 documented as of this encounter
--- OUTSIDE RECORDS SUMMARY | 2024-09-29 18:08 | XMS_ITS | Encounter Summary ---
Author Organization [facility] Address [facility] [place] [address] Care Team Providers Care Automotive Glass Technician Name Role Phone None Primary Care Provider Unavailabl e Encounter Details Date Type Department Care Team ([facility] st Contact Info) Description 07/20/2017 Telephone Obstetrics and Gynecology at [facility] [place] [address] Desean Soto MD [facility] DR OBSTETRICS & GYNECOLOGY [place] [id number] Social History Tobacco Use Types Packs/Day Years [...] on filedocumented in this encounter Care Teams Automotive Glass Technician Relationship Specialty Start Date End Date None None PCP - General 05/29/17 09/02/21 documented as of this encounter
--- OUTSIDE RECORDS SUMMARY | 2024-09-29 18:08 | XMS_ITS | Clinical Summary ---
Author Organization [facility] Address [address] [place] [address] Care Team Providers Care Animal Husbandry Teacher Name Role Phone Unknown, Provider MD Primary [...] COVID-19 Vaccine (2023- season) 2024 Care Teams Animal Husbandry Teacher Relationship Specialty Start Date End Date Unknown, Provider, PCP - General 05/06/12
--- OUTSIDE RECORDS SUMMARY | 2024-09-29 18:08 | XMS_ITS | Encounter Summary ---
Author Organization [facility] Address [facility] [place] [address] Care Team Providers Care Exhaust Equipment Operator Name Role Phone None Primary Care Provider Unavailabl e Encounter Details Date Type Department Care Team (Latest Contact Info) Description 05/29/2017 9:59 AM EDT - 05/29/2017 11:59 PM EDT Hospital [place] [address] Crow Martines MD [facility] DR OBSTETRICS AND GYNECOLOGY [place] [id number] Gestational diabetes mellitus (GDM) in second trimester, [...] Refills Start Date End Date vitamin with pxgdluqu-Jl-Rwah-FA Tablet Take 1 tablet by mouth daily. [...] 01:53 pm) PATIENT INFO: ID #: ? [id number] ?: ??[birth year] (27 yrs) Name: ? PAM Lopez ?Visit Date: 05/29/2017 10:27 am ? ROBERT PERFORMED BY: Performed By: ? Ruth Ann Dixon RDMS Attending: ?Conrad TAY, E ??Yeny Referred By: ?MONIQUE ORR MD Location: ? [place] SERVICE(S) PROVIDED: ??[facility] - Detailed Morphology - [id number] ? 27800 ??UOBTV - Viability - Cervical Length -Transvaginal - ?? 84831 ??[id number] INDICATIONS: ??19 weeks gestation of ?Z3A.19 ??INSULIN [...] Arch: ? Visualized SVC: ? Visualized Cardiac [place]: ?Visualized Diaphragm: ? Visualized 3 Vessel View: [...] 05/29/2017 01:53 pm) PATIENT INFO: ID #: [id number] : [birth year] (27 yrs) Name: PAM Lopez Visit Date: 05/29/2017 10:27 am ROBERT PERFORMED BY: Performed By: Ruth Ann Dixon RDMS Attending: Crow Martines MD Referred By: MONIQUE ORR MD Location: [place] SERVICE(S) PROVIDED: [facility] - Detailed Morphology - [id number] 75343 UOBTV - Viability - Cervical Length -Transvaginal - 40766 [id number] INDICATIONS: 19 weeks gestation of Z3A.19 INSULIN [...] Visualized Ductal Arch: Visualized SVC: Visualized Cardiac [place]: Visualized Diaphragm: Visualized 3 Vessel View: Visualized [...] unspecified documented in this encounter Care Teams Exhaust Equipment Operator Relationship Specialty Start Date End Date None None PCP - General 05/29/17 09/02/21 documented as of this encounter
--- OUTSIDE RECORDS SUMMARY | 2024-09-29 18:08 | XMS_ITS | Encounter Summary ---
Author Organization [facility] [place] [address] Care Team Providers Care Computed Tomography Technician Name Role Phone None Primary Care Provider Unavailabl e Reason for Visit * Reason Comments Routine Visit Encounter Details Date Type Department Care Team (Late st Contact Info) Description 07/09/2017 10:45 AM EST Routine Obstetrics [place] [address] Lolita Barrett MD [facility] DR OBSTETRICS [place] [address] GA: 24w6d Social History Tobacco Use Types [...] [facility] to Sultana [facility] for [...] 10:51 am) PATIENT INFO: ID #: ? [id number] ?: ??[birth year] (27 yrs) Name: ? PAM Lopez ?Visit Date: 07/28/2017 10:10 am ? ROBERT PERFORMED BY: Performed By: ? Dhara Hicks RDMS Attending: ?Derick TAY, Li Umanzor Referred By: ?LOLITA BARRETT Location: ? [place] SERVICE(S) PROVIDED: ??UOBFOL - Efw - Growth - Hernandez - [id number] ? 84921 ??UOBTV - Viability - Cervical Length -Transvaginal - ?? 41584 ??[id number] INDICATIONS: ??27 weeks gestation of ?Z3A.27 ??placenta, [...] 07/28/2017 10:51 am) PATIENT INFO: ID #: [id number] : [birth year] (27 yrs) Name: PAM Lopez Visit Date: 07/28/2017 10:10 am ROBERT PERFORMED BY: Performed By: Dhara Hicks RDMS Attending: Li Sepulveda MD Referred By: LOLITA BARRETT Location: [place] SERVICE(S) PROVIDED: UOBFOL - Efw - Growth - Hernandez - [id number] UOBTV - Viability - Cervical Length -Transvaginal - 93841 [id number] INDICATIONS: 27 weeks gestation of Z3A.27 placenta, [...] high-risk documented in this encounter Care Teams Computed Tomography Technician Relationship Specialty Start Date End Date None None PCP - General 05/29/17 09/02/21 documented as of this encounter
--- OUTSIDE RECORDS SUMMARY | 2024-09-29 18:08 | XMS_ITS | Encounter Summary ---
Author Organization [facility] Address [facility] [place] [address] Care Team Providers Care Cable Assembler And Swager Name Role Phone None Primary Care Provider Unavailabl e Reason for Visit * Auth/Cert Specialty Diagnoses / Procedures Referred By Jose Enrique velazco Referred To Contact Diagnoses Vasa previa Procedures JUDSON IPI Referral ID Status Reason Start Date Expiration Date Visits Re quested Visits Authorized [id number] 1 1 Encounter Details Date Type Department Care Team (Late st Contact Info) Description 07/28/2017 10:00 AM EST Routine Obstetrics [place] [address] Li Sepulveda MD [facility] DR OBSTETRICS [place] [address] GA: 27w4d Social History Tobacco Use Types [...] fetus documented in this encounter Care Teams Cable Assembler And Swager Relationship Specialty Start Date End Date None None PCP - General 05/29/17 09/02/21 documented as of this encounter
--- OUTSIDE RECORDS SUMMARY | 2024-09-29 18:08 | XMS_ITS | Encounter Summary ---
Author Organization [facility] [place] [address] Care Team Providers Care Associate Chief Nurse Name Role Phone None Primary Care Provider Unavailabl e Encounter Details Date Type Department Care Team ([facility] Contact Info) Description 08/12/2017 10:38 AM EST Anesthesia Event Ultrasound at [facility] [place] [address] Marcial Bean MD [facility] [place] [address] Marcial Bean MD [facility] [place] [address] Anesthesia Record Procedure Summary Procedure Name Responsible [...] on filedocumented in this encounter Care Teams Associate Chief Nurse Relationship Specialty Start Date End Date None None PCP - General 05/29/17 09/02/21 documented as of this encounter
--- OUTSIDE RECORDS SUMMARY | 2024-09-29 18:08 | XMS_ITS | Encounter Summary ---
Author Organization [facility] Address [address] [place] [address] Care Team Providers Care Histology Tech Name Role Phone Unknown, Provider Primary Care Provider Unava ilable Encounter Details Date Type Department Care Team (Late st Contact Info) Description 10/07/2021 Lab Requisition [facility] Pathology & Laboratory Medicine - [facility] [address] [place] [address] Outr Resulting Lab, Provider Social History Tobacco [...] 152.4 See Note mIU/mL 10/08/2021 10:06 EST [facility] Comment: Reference Range for Hep B Surface Ab, Quant: Positive: >= 10.0 mIU/mL Negative: ??< 10.0 mIU/mL Patient is presumed to be immune to infection with Hepatitis B Virus. Hep B Surface Ab, Qualitative Positive See Note 10/08/2021 10:06 EST [facility] Comment: Reference Range for Hep B Surface Ab, Qual: Unvaccinated: ??Negative Vaccinated: ??Positive Blood VENOUS BLOOD / Unknown 10/07/2021 10:15 EST 10/07/2021 22:13 EST us Provider Outr Resulting Lab CHEMISTRY & BLOOD GA S ORDERABLES Final Result Performing Organization Address [facility] Co de Phone Number [facility] [address] [place] [address] * MEASLES IGG AB (10/07/2021 10:15 EST) Measles IgG Ab Positive See Note 10/08/2021 9:36 EST [facility] Comment:Presence of detectab le measles virus IgG antibodies. Blood VENOUS BLOOD / Unknown 10/07/2021 10:15 EST 10/07/2021 22:13 EST us Provider Outr Resulting Lab IMMUNOLOGY AND SEROL OGY ORDERABLES Final Result Performing Organization Address [facility] Co de Phone Number [facility] [address] [place] [address] * MUMPS ANTIBODY IGG (10/07/2021 10:15 EST) Mumps Antibody IgG Negative See Note 10/08/2021 9:39 EST [facility] Comment:Absence of detectabl e mumps virus IgG antibodies. A negative result generally indicates that the patient is susceptible to mumps. Blood VENOUS BLOOD / Unknown 10/07/2021 10:15 EST 10/07/2021 22:13 EST us Provider Outr Resulting Lab IMMUNOLOGY AND SEROL OGY ORDERABLES Final Result Performing Organization Address [facility] Co de Phone Number [facility] [address] [place] [address] * RUBELLA IGG ANTIBODY (10/07/2021 10:15 EST) Rubella IgG Ab Positive See Note 10/08/2021 9:40 EST [facility] Comment:Positive for IgG ant ibodies to Rubella virus. Blood VENOUS BLOOD / Unknown 10/07/2021 10:15 EST 10/07/2021 22:13 EST us Provider Outr Resulting Lab CHEMISTRY & BLOOD GA S ORDERABLES Final Result Performing Organization Address City/State/[facility] Co de Phone Number [facility] [address] [place] [address] documented in this encounter Visit Diagnoses Not on filedocumented in this encounter Care Teams Histology Tech Relationship Specialty Start Date End Date Unknown, Provider, PCP - General 05/06/12 documented as of this encounter
--- OUTSIDE RECORDS SUMMARY | 2024-09-29 18:08 | XMS_ITS | Encounter Summary ---
Author Organization [facility] Address [facility] [place] [address] Care Team Providers Care Assembler Product Name Role Phone None Primary Care Provider Unavailabl e Encounter Details Date Type Department Care Team (Latest Contact Info) Description 07/09/2017 9:39 AM EST - 07/09/2017 11:59 PM EST Hospital [place] [id number] Crow Martines MD [facility] [place] [address] Insulin controlled gestational diabetes mellitus (GDM) in [...] 20 tablet 3 09/14/2017 10/27/2017 vitamin with fiqvayuo-Hv-Vskl-FA Tablet Take 1 tablet by mouth daily. [...] 11:19 ?am) PATIENT INFO: ID #: ? [id number] ?: ??[birth year] (27 yrs) Name: ? PAM Lopez ?Visit Date: 07/09/2017 10:00 am ? ROBERT PERFORMED BY: Performed By: ? Ruth Ann Dixon RDMS Attending: ?Sandoval TAY, Lolita Garcia Referred By: ?Crow MARTINES Location: ? [place] SERVICE(S) PROVIDED: ??UOBFOL - Efw - Growth - Hernandez - [id number] ? [id number] ??UOBTV - Viability - Cervical Length -Transvaginal - ?? [id number] ??[id number] INDICATIONS: ??24 weeks gestation of ?Z3A.24 ??placenta [...] 07/09/2017 11:19 am) PATIENT INFO: ID #: [id number] : [birth year] (27 yrs) Name: PAM Lopez Visit Date: 07/09/2017 10:00 am ROBERT PERFORMED BY: Performed By: Ruth Ann Dixon RDMS Attending: Lolita Nick MD Referred By: Crow [email or web address] Location: [place] SERVICE(S) PROVIDED: UOBFOL - Efw - Growth - Hernandez - [id number] UOBTV - Viability - Cervical Length -Transvaginal - [id number] INDICATIONS: 24 weeks gestation of Z3A.24 placenta [...] status documented in this encounter Care Teams Assembler Product Relationship Specialty Start Date End Date None None PCP - General 05/29/17 09/02/21 documented as of this encounter
--- OUTSIDE RECORDS SUMMARY | 2024-09-29 18:08 | XMS_ITS | Encounter Summary ---
Author Organization [facility] Address [address] [place] [address] Care Team Providers Care Hardware Trainer Name Role Phone Unknown, Provider Primary Care Provider Simeon blankenship Encounter Details Date Type Department Care Team (Late st Contact Info) Description 04/21/2021 Lab Requisition [facility] Pathology & Laboratory Medicine - [facility] [address] [place] [address] Outr Resulting Lab, Provider Social History Tobacco [...] gonorrhoeae Result Negative Negative 04/22/2021 15:[address] [facility] Chlamydia trachomatis Result Negative Negative 04/22/2021 15:[address] [facility] Swab ENTIRE WALL OF CERVIX / Unknown 04/20/2021 16:00 EDT 04/21/2021 17:35 EDT us Provider Outr Resulting Lab MICROBIOLOGY - GENER AL ORDERABLES Final Result [facility] [address] [place] [address] documented in this encounter Visit Diagnoses Not on filedocumented in this encounter Care Teams Hardware Trainer Relationship Specialty Start Date End Date Unknown, Provider, PCP - General 05/06/12 documented as of this encounter
--- OUTSIDE RECORDS SUMMARY | 2024-09-29 18:08 | XMS_ITS | Encounter Summary ---
Author Organization Formerly [facility] Address [facility] [place] [address] Care Team Providers Care Contact Manager Name Role Phone None Primary Care Provider Unavailabl e Reason for Visit * Auth/Cert Specialty Diagnoses / Procedures Referred By Jose Enrique t Referred To Contact Diagnoses Vasa previa Procedures JUDSON IPI Referral ID Status Reason Start Date Expiration Date Visits Re quested Visits Authorized [id number] 1 1 Encounter Details Date Type Department Care Team ([facility] Contact Info) Description 09/11/2017 10:00 AM EST - 09/11/2017 12:01 PM EST [place] [id number] Chely Sin MD [facility] [address] [place] [address] @ DELIVERY (WRVU 16.13) Social History Tobacco [...] Pam Lake Patient Age: 27 y.o. Language: Taiwanese Race: Black or Ethnicity: OR Admit date: 07/28/2017 Discharge date and time: 09/15/2017 4:11 PM Attending Physician: Arturo Waterman MD Discharge Physician: Chely Sin MD Care Provider: Dr. Isela Blunt Referring Hospital: [facility] Follow-up Recommendations for Providers: -- Follow up with MFM provider on 09/17/17 -- 2 week depression screen -- 6 week visit with 2hr GTT -- Final pathology Inpatient Provider Contact Information: [facility] RESIDENTIAL BUILDER Department, Discharge Diagnoses (Hospital Problems) and Secondary [...] was given a rescue course of steroids [id number] (complete on 08/20). Insulin was titrated up [...] within normal limits. She was discharged to [facility] in good condition and good [...] Information for the patient's : Michele Lake [[id number]] INFORMATION Michele Lake 09/11/2017 11:58 AM by Lower Segment Transverse Sex: female Gestational Age: 34w0d [place] Measurements: Weight: 4 lb 7.8 oz (2035 [...] REMOVE Please contact the Blood Bank at [phone] for questions. Immunizations Given this Hospitalization: Immunization [...] Nausea. 8 mg Refills: 0 vitamin with qqgftwhc-Jy-Bjwk-FA Tab Take 1 tablet by mouth daily. [...] Depression Contact Numbers: If you see an improvement nurse call: [phone] 9 am - 5 pm, after 5 pm If you see a soa architect call: [phone] all hours If you see a family practitioner call: [phone] all hours If you were transferred to our institution for delivery and cannot reach your local OB provider, call the improvement nurse numbers. General Instructions Nursing Inpatient Progress C [...] this in detail. Call your doctor or soa architect for: ??? Fever more than 100.5 ??? [...] follow up appointment. You may call the [facility] at any time for guidance or for answers to questions that come up prior to you follow up appointment. Your [facility] Provider can be reached during office hours at ??? Midwives ??? Obstetricians ??? [facility] Follow-up Clinic AFTER OFFICE HOURS for the improvement nurse or soa architect surgical consultant Provider electronic signature confirms that discharge instructions were reviewed with the patient. A copy was printed and given to the patient. Future Appointments and Orders Future Appointments Provider Department Dept Phone 09/17/2017 4:15 PM Emaneul Barrett MD [facility]st[facility] at [place] [phone] 10/23/2017 1:00 PM Li Sepulveda MD [facility] [place] [phone] Future Orders Complete By Expires Durable Medical Equipment Order [EQ148 Custom] As directed Process Instructions: Scheduling Instructions: Comments: Pam Lake 1990 [address] [facility] [address] (home) [email or web address] Central intake- #[phone] fax [phone] [place] Office- [phone] RX: Hospital Grade Electric Breast Pump- Lactina [...] breast pump Size requested: Vendor Name/Contact information: [employer] Discharge References/Attachments HYSTERECTOMY: ABDOMINAL: POST-OP (ISRAELI) GRIEVING (ACTUAL/ANTICIPATED) (ISRAELI) documented in this encounter Discharge Instructions * [...] this in detail. Call your doctor or soa architect for: ??? Fever more than 100.5 ??? [...] follow up appointment. You may call the [facility] at any time for guidance or for answers to questions that come up prior to you follow up appointment. Your [facility] Provider can be reached during office hours at ??? Midwives ??? Obstetricians ??? [facility] Follow-up Clinic AFTER OFFICE HOURS for the improvement nurse or soa architect surgical consultant Provider electronic signature confirms that discharge [...] Depression Contact Numbers: If you see an improvement nurse call: [phone] 9 am - 5 pm, after 5 pm If you see a soa architect call: [phone] all hours If you see a family practitioner call: [phone] all hours If you were transferred to our institution for delivery and cannot reach your local OB provider, call the improvement nurse numbers. * Attachments The following attachments cannot be sent through Care Everywhere. * HYSTERECTOMY: ABDOMINAL: POST-OP (ISRAELI) * GRIEVING (ACTUAL/ANTICIPATED) (ISRAELI) documented in this encounter Medications at Time [...] 20 tablet 3 09/14/2017 10/27/2017 vitamin with xazkvtco-Rz-Ivsk-FA Tablet Take 1 tablet by mouth daily. [...] about that. She plans to stay at [facility] after she's been d/c. Understandably, pt reports she has not been able to emotionally process the event of delivery and her baby staying in the ICN yet. Plan: Will arrange for pt to receive gas card. DIEGO Ruiz Pager: [phone] * Pam Valenzuela RN - 09/14/2017 7:43 [...] - 09/12/2017 6:02 PM EST Back from [facility]. Medicated with 10mg Oxycodone. Pumped x10 mins. No results. * Claudine Gamino RN - 09/12/2017 4:00 PM EST Pumped x15 mins, both breasts utilizing electric breast pump. No colostrum expressed. Reassured Pam that it is ok, victoriano d/t her sig blood loss. Pam back to [facility] to see josé luis. Transported by [...] IV removed from L hand. Taken to [facility], via wheelchair, by this RN. Instructed [...] The patient complains of incision pain, states FINANCE INTERN has been helping. Pumping for infant nutrition [...] ?? Continue routine care. Will transition from FINANCE INTERN to po pain medications. Discontinue amador catheter [...] given 2 mg of IV dilaudid and FINANCE INTERN initiated to bring pain down to a [...] Stephanie Jessica Jaya 1990 [address] [facility] [address] [facility] [address] ([place]) [employer] Central intake- #[phone] fax [phone] [place] Office- [phone] RX: Hospital Grade Electric Breast Pump- Lactina Breast Pump Length of Need: 3 Months Purpose of Appliance: To Initiate and Maintain Medical Necessity: /Lactating Mother- Z39.1 Breast Engorgement relative to infant born at 34 gestation - BW 2.035 (4lb/8oz) P92.9 Feeding problem of , unspecified Premature in ICN from mother- P07.30 Prematurity Beto Stinson RN Intensive Care Nursery [facility] of Care Management Phone:# [phone] Beeper: #[phone] Fax: # [phone] * Yoly Cueva MD - 09/10/2017 4:25 [...] discussed on Multidisciplinary Rounds YOLY CUEVA MD Construction Framer PGY-4 08/30/2017 Associated attestation - Crow Vasquez [...] discussed on Multidisciplinary Rounds JHONATHAN ROBERTSON MD Construction Framer PGY-3 08/30/2017 Associated attestation - Crow Vasquez [...] discussed on Multidisciplinary Rounds JHONATHAN ROBERTSON MD Construction Framer PGY-3 08/30/2017 Associated attestation - Crow Vasquez [...] Reassuring for gestational age Comments - JHONATHAN ROBERSTON MD 09/07/2017 Associated attestation - Arturo Waterman MD - 09/07/2017 6:04 PM EST I personally reviewed and interpreted this NST. Arturo Waterman MD * Stephanie Moseley MSW - 09/07/2017 4:12 PM EST Social Work Note Office of Care Management Follow Up: ECONOMIC DEVELOPMENT COORDINATOR met with pt today at bedside to check in on her. Pt is very excited that she will be having herc/s on Thursday and has been talking about holding her baby and being able to meet her. ECONOMIC DEVELOPMENT COORDINATOR reminded went over [employer] again and let pt know she can use [employer] to get groceries during her [employer] stay. Plan: Arrange for breast pump after delivery and continue to provide support to pt. DIEGO Ruiz Pager: [phone] * Jhonathan Robertson MD - 09/07/2017 6:26 [...] discussed on Multidisciplinary Rounds JHONATHAN ROBERTSON MD Construction Framer PGY-3 08/30/2017 Associated attestation - Arturo Waterman [...] discussed on Multidisciplinary Rounds YOLY CUEVA MD Construction Framer PGY-4 08/30/2017 Associated attestation - Emanuel Barrett [...] discussed on Multidisciplinary Rounds EMERITA ROSARIO MD Construction Framer PGY3 08/30/2017 Associated attestation - Emanuel Barrett [...] discussed on Multidisciplinary Rounds JHONATHAN ROBERTSON MD Construction Framer PGY3 08/30/2017 Associated attestation - Crow Vasquez [...] discussed on Multidisciplinary Rounds JHONATHAN ROBERTSON MD Construction Framer PGY3 08/30/2017 Associated attestation - Emanuel Barrett [...] discussed on Multidisciplinary Rounds JHONATHAN ROBERTSON MD Construction Framer PGY3 08/30/2017 Associated attestation - Emanuel Barrett [...] discussed on Multidisciplinary Rounds JHONATHAN ROBERTSON MD Construction Framer PGY3 08/30/2017 Associated attestation - Emanuel Barrett [...] Social Work Note Office of Care Management ECONOMIC DEVELOPMENT COORDINATOR met with pt at bedside to check in. Pt reports she is doing well and is still counting down thedays until baby is born. She seems to be in higher spirits the closer the due date is. Pt reports no needs as of now. Plan: F/u with pt next week or as needed. DIEGO Ruiz Pager: [phone] * Jhonathan Robertson MD - 08/31/2017 5:07 [...] discussed on Multidisciplinary Rounds JHONATHAN ROBERTSON MD Construction Framer PGY3 08/30/2017 Associated attestation - Emanuel Barrett [...] discussed on Multidisciplinary Rounds JHONATHAN ROBERTSON MD Construction Framer PGY3 08/30/2017 Associated attestation - Crow Vasquez [...] Interpretation: Reactive, overall reassuring for gestational age. VANESAS REIS MD PGY-3 08/30/2017 Associated attestation - [...] diabetes mellitus (GDM): diagnosed at 7 weeks aukkuwhdy46/06/2017 ??? Hospital-Previous section x 2 05/29/2017 Reason [...] for ordering her meals. Pt expressed to senior copywriter that she enjoys her current diet order [...] Gabriel MD - 08/27/2017 7:11 PM EST transition of care specialist Progress Note Presented to room to discuss [...] struggling with her stay on the Birthing [place]. She feels like she is in halfway and her mental health is impacted. I [...] Note Office of Care Management Follow Up: ECONOMIC DEVELOPMENT COORDINATOR met with pt at bedside to check in on her. Pt reports she is doing well and is excited that sheis getting closer to delivery date. She seems in higher spirits today than last week and reports she had somewhat of a relaxing New Year's Rosa. Plan: Deliver weekly gas card to pt and check in on her as needed. DIEGO Ruiz Pager: [phone] * Yoly Cueva MD - 08/25/2017 1:50 [...] diabetes mellitus (GDM): diagnosed at 7 weeks johqibsfs60/06/2017 ??? Hospital-Previous section x 2 05/29/2017 Reason [...] swallowing. Nursing documentation notes 100% PO intake. Shutdown Coordinator offered to have snacks sent between meals but pt declined stating she did not to waste them as she does not always eats them. Pt made joke with senior copywriter stating she wants unhealthyfoods between meals for [...] Note Office of Care Management Follow Up: ECONOMIC DEVELOPMENT COORDINATOR met with pt at bedside to f/u from yesterday's visit. Pt seems to have calmed down quite a bit from yesterday and was very agreeable to speaking with ECONOMIC DEVELOPMENT COORDINATOR. We talked about what the pt currently has control of in her life and how she feels about it. ECONOMIC DEVELOPMENT COORDINATOR also went over some CBT techniques that pt can use when she begins to feel overwhelmed. BIT referral was also made and someone will be coming to meet with pt. Plan: ECONOMIC DEVELOPMENT COORDINATOR will continue to follow pt for needs. DIEGO Ruiz Pager: [phone] * FallbrookDesean - 08/19/2017 7:16 AM EST Images from [...] Note Office of Care Management Follow Up: ECONOMIC DEVELOPMENT COORDINATOR met with pt at bedside. She was visibly upset and crying. Pt is emotionally distressed over notbeing able to see her children on a regular basis and not having the freedom to leave the hospital. Plan: ECONOMIC DEVELOPMENT COORDINATOR will put in BIT referral and provide pt with some relaxation tips and references. DIEGO Ruiz Pager: [phone] * Latasha Nj - 08/18/2017 4:39 PM [...] [facility] Reassuring testing to date GDM A2 Plan: Continue hospitalization for and maternal safety and ongoing assessment regarding need for delivery. Nonstress test iL Sepulveda MD * Desean Soto - 08/14/2017 [...] diabetes mellitus (GDM): diagnosed at 7 weeks vvebhhmty35/06/2017 ??? Hospital-Previous section x 2 05/29/2017 Reason [...] in conjunction with Emerita Rosario, PGY3. DESEAN OSTO MD PGY4 08/14/2017 Associated attestation - Emanuel [...] interpretation. Obdulia Crenshaw MD * Stephanie Moseley ECONOMIC DEVELOPMENT COORDINATOR - 08/10/2017 11:59 AM EST Social Work Note Office of Care Management ECONOMIC DEVELOPMENT COORDINATOR met with pt at bedside to check in with her. Pt reports she is doing well, just tired. Presentsno needs at this time. Plan: ECONOMIC DEVELOPMENT COORDINATOR informed pt she would look into gas card from [employer] for this week. DIEGO Ruiz Pager: [phone] * Emerita Rosario - 08/10/2017 11:01 AM [...] diabetes mellitus (GDM): diagnosed at 7 weeks kwvnholki28/06/2017 ??? Hospital-Previous section x 2 05/29/2017 Reason [...] Note Office of Care Management Follow Up: ECONOMIC DEVELOPMENT COORDINATOR met with pt as she was asking about a gas card so her children could visit her in the hospital.ECONOMIC DEVELOPMENT COORDINATOR spoke with Nuvia at [employer] and she has tubed over a $20 gas card for pt. Pt was very happy and appreciative of gas card. Plan: ECONOMIC DEVELOPMENT COORDINATOR will continue to follow pt for needs. DIEGO Ruiz Pager: [phone] * Emerita Rosario Rosie - 08/03/2017 9:03 [...] 2 24 Hour Events -Reactive NST yesterday -[place] contractions yesterday, nothing seen on toco Subjective: [...] seen and discussed on Multidisciplinary Rounds. DESEAN OSTO MD PGY4 08/02/2017 * Daisy Song MSW - 08/01/2017 4:16 PM EST Office of Care Management Weekend Social Work Note Relevant Information: Worker was paged by RN as patient was requesting gas cards in order for her family to visit. Workerinformed RN that worker could not give out gas cards for visiting. DIEGO ORTIZ Weekend Computer Help Desk Representative Pager [phone] * Jhonathan Robertson MD - 08/01/2017 12:11 [...] gave her information on parent/child center in [facility]. Pt declined referral at this time but asked senior copywriter to check back later. ECONOMIC DEVELOPMENT COORDINATOR also spoke with pt about a concern [...] a volunteer cuddler during her stay here. ECONOMIC DEVELOPMENT COORDINATOR told pt she would ask medical staff. Plan: ECONOMIC DEVELOPMENT COORDINATOR will continue to follow pt for needs. DIEGO Ruiz Pager: [phone] * Li Lehman, RD - 07/31/2017 3:38 [...] and be left alone. BS obtained by product management intern, will plan to leave pt alone [...] not want to talk much to this senior copywriter. Activity Level: sedentary/bedrest BMI before : unknown [...] PM EST Obstetrical Admission Note Referring Hospital: [facility] Initial Care Provider (if early referral [...] Dispense Refill Last Dose ??? vitamin with zafudxcr-Rn-Rkmh-FA Tablet Take 1 tablet by mouth daily. [...] 145, Variability: moderate, Accels: yes, Decels: none, [place]: No contractions Reactive for gestational age Record [...] seen and discussed with Dr. Zurita, Attending RESIDENTIAL BUILDER. EMERITA ROSARIO MD PGY3 07/28/2017 Attending note [...] home - pt plans to stay at [facility] while in ICN. INDIVIDUALIZED FALL PREVENTION [...] is all packed for her stay at [facility] until she can bring her baby home. Kristin Beauchamp, [facility] [phone] Pager [phone] * Plan of Care - Rubi Curran [...] 16.13) performed by Chely Sin MD at [facility] ??? PRO CYSTOURETHROSCOPY N/A 09/11/2017 CYSTO, CYSTOURETHROSCOPY, DIAGNOSTIC (WRVU 2.23) performed by Chely Sin MD at [facility] ??? PRO SUPRACERV ABD HYSTERECTOMY N/A 09/11/2017 @HYSTERECTOMY, ABD, SUPRACERVICAL (WRVU 16.6) performed by Chely Sin MD at [facility] Subjective: Patient/Family/Caregiver Comments/Observations: Oh that hurts [...] this evaluation. RUBI CURRAN, PT, DPT Pager: [phone] Inpatient Physical Therapy * Plan of Care [...] until Mon or , then go to [facility], has no support at [...] 48 hours if develop symptoms of engorgement Calhan oil to nipples prior to pumping Frequent and prolonged maternal-infant skin to skin contact Close support and follow up Pam given the following pamphlets: Providing breast milk for your baby in the intensive care nursery Breast feeding your premature baby Rosario Noyola RN IBCLC [facility] Services * Consult Note - Kristin Beauchamp - 09/14/2017 1:12 PM EST Behavioral Intervention Team (BIT) GUADALUPE CORTEZ attempted to meet with Pam who was sleeping. Will try again later. Kristin Beauchamp, [facility] [phone] Pager [phone] * Plan of Care - Yumiko Cochran [...] until Mon or , then go to [facility], has no support at [...] until Mon or Tu, then go to [facility], has no support at home and [...] SUMMARY: Amador out, voiding on own. DCd FINANCE INTERN, switched to po pain meds and IV [...] VS stable, pain controlled with use of FINANCE INTERN-Dilaudid. Amador catheter in place, draining adequately to [...] rectus sheath. ?Viable female in cephalic presentation, [id number] grams and Apgars of 4, 7 and [...] Information for the patient's : Michele Lake [[id number]] DELIVERY SUMMARY FOR Baby Jess Lake (please [...] Combined est. blood loss (mL): 2500 Delivery ([place]) Delivery Date: 09/11/17 Delivery Time: 115 Sex: Female Presentation: Vertex Attempted ?: No Delivery Type: Delivery Type (Specific): Lower Segment Transverse Major Indications - : placenta previa Shoulder Dystocia Shoulder dystocia present?: No Delivery Information Delivery Location: OR Delivering Clinician: YOLY CUEVA ICN Staff Present: Yes Other Personnel: Provider Role TIFFANYALISSON Delivery Nurse CHELY SIN Certified Legal Secretary Specialist LETITIA SCHMIDT Delivery Assist YOLY UCEVA Resident SAMANTHA OCAMPO Medical Student Anesthesia Method: [...] skin to skin not initiated: Maternal Acuity [place] Medications Medications Given: vitamin K, erythromycin Measurements [...] G 5 p 2 patient on the [facility] with at 34 weeks gestation complicated with vasa previa. I reviewed history in chart as well as oral history from Pam. She was referred as a maternal- transfer from [facility] Relevant History: Pam Lake is [...] Note ?? Patient Name: Pam Lake : [id number] MR#: [id number] ?? Case Date: 09/11/2017 ?? Surgeon: Surgeon(s) and Role: * Chely Sin MD - Primary * Yoly Cueva MD - Resident-Surgeon Chief * Samantha Ocampo- [facility]-3 ?? Preoperative diagnosis: 1. 34 wk [...] and the remainderwas closed with 0-Vicryl with dxmxxq-nd-unxvk sutures. There was bleeding along the left [...] Operative Note Patient Name: Pam Lake : [id number] MR#: [id number] Case Date: 09/11/2017 Surgeon: Surgeon(s) and Role: [...] wished to meet later today. Kristin Beauchamp, [facility], DCS [phone] Pager [phone] * Plan of Care - Arturo Marquez [...] and requested I return later. Kristin Beauchamp, [facility] [phone] Pager [phone] * Plan of Care - Becca Bailey [...] on 07/28 and was referred to BIT ECONOMIC DEVELOPMENT COORDINATOR for supportive therapy due to her prolonged admission. Record reviewed and discussed with nurses and ECONOMIC DEVELOPMENT COORDINATORStephanie Miguel. Relevant Information: Introduced the role of BIT SW and the following was discussed. Pam lives in [facility] with her son, Blayne Bang, and her daughter Jermaine, Julieta. During this admission, her children are being cared for by her ex- who is the father of Jermaine. The FOB lives in [place], their relationship is cordial and they talk occasionally on the phone. She feels abandoned by him and isunsure if he will be involved with this baby. Pam is the youngest of three children. She has limited contact with her brother who resides in [place], [place]., her sister is addicted to drugs and lives on the streets of [place], [place]. Pam has 13 nieces and nephews, age 3-13 and enjoys having all of them at her house for sleep overs. 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 Pam identifies her friends as her emotional support system, as well as, her therapist at [facility] who she has seen for 2 years. This prolonged admission has been difficult because her friends, who live over an hour away, have not been able to visit. Her ex- brings her children for a visit on the weekends and she missesthem very much. Additionally, Pam feels like she is in halfway because she is restricted to the unit. She is Pakistani and loves to cook and has had [...] the NICU. While her baby remains at [facility], she will stay at [facility] and have her other two children come [...] sometimes she cannot shut down herbrain. This senior copywriter provided her with online resources to address her insomnia, anxiety and depression and will connect her with the [employer] which she would enjoy. Assessment/Plan: [...] to provide support and interventions. Kristin Beauchamp, [facility], DCSW [phone] Pager [phone] * Consult Note - Kristin Beauchamp - 09/03/2017 1:32 PM EST Behavioral Intervention Team (BIT) Attempted to meet with Pam who was napping and requested I return later today. STACY Curtis, [facility] [phone] Pager [phone] * Consult Note - Kristin Beauchamp - 09/03/2017 10:30 AM EST Behavioral Intervention Team (BIT) Referral: Pam Lake was admitted for vasa previa on on 07/28 and was referred to BIT ECONOMIC DEVELOPMENT COORDINATOR for supportive therapy due to her prolonged admission. Record reviewed and discussed with BP RN, Letitia Kelley and ECONOMIC DEVELOPMENT COORDINATOR Stephanie. Per nursing and social work reports, this admission has been difficult for Pam, who has two other children at home. Additionally she is restricted to the unit in order to remain in close proximity to the OR. BIT ECONOMIC DEVELOPMENT COORDINATOR will return later today as Pam prefers not to be disturbed until after noon time. STACY Dorantes, [facility] [phone] Pager [phone] * Plan of Care - Arturo Marquez [...] and good FM. Participants patient;physician;nursing (MD Barertt, RN Perfecto) Problem: High-Risk/Critically Ill Patient (Obstetrics) [...] -- -- Score -- -- -- OTHER Babrour Fall Risk -- -- -- Restraint Interventions [...] Intervention Team (BIT) Referral: Referred to BIT ECONOMIC DEVELOPMENT COORDINATOR for supportive therapy by BP AGUILAR. Per chart, PPHx of PTSD. Record reviewed and discussed with BP FAY. Relevant Information: Attempted to meet with patient x2 today. Patient unavailable both attempts, asked this senior copywriter to f/u at a later time. Assessment/Plan: GUADALUPE AUW will continue to follow for supportive therapy while hospitalized. DIEGO Cat Phone: [phone] Pager: [phone] * Plan of Care - Kristin Morley [...] WDL PLAN MOVING FORWARD: Continue monitoring per hand bulldozer [employer] INDIVIDUALIZED FALL PREVENTION INTERVENTIONS: Patient-specific fall [...] -- 0 Score -- -- 20 OTHER [place] Fall Risk -- -- Low Restraint Interventions [...] WDL PLAN MOVING FORWARD: Continue monitoring per junior high math teacher [employer] INDIVIDUALIZED FALL PREVENTION INTERVENTIONS: Patient-specific [...] Outcome: Ongoing (Interventions Implemented as Appropriate) 08/12/1741108/26/17 3864 Discharge Needs Assessment Concerns To Be Addressed [...] and paperwork given. Gestational Diabetes handout from [facility]. PLAN MOVING FORWARD: No change. Continue to [...] leaking, and bleeding. Pt had more frequent Shashi-Aguilar contractions than usual early on in the [...] This RN will consider consult to social work/utility arborist for emotional support during extended stay. INDIVIDUALIZED [...] RN discussed pt's frustrations and desires with charger operator helper, Joy Bond, and with MDs Nino. PLAN MOVING FORWARD: MDs and charger operator helper said they would pass along pt requests [...] Outcome: Ongoing (Interventions Implemented as Appropriate) 08/12/17 6159 Plan of Care Review Progress no change [...] Outcome: Ongoing (Interventions Implemented as Appropriate) 08/11/17 0821 High-Risk/Critically Ill OB Patient Problems Assessed (Critically [...] Pt ambulated off unit this shift to [employer] shop; RN educated patient about leaving the [...] (Interventions Implemented as Appropriate) 08/01/1742408/03/17 0559 08/04/17 0527 Discharge Needs Assessment Concerns To Be Addressed [...] Care Management Initial Assessment Stephanie H Juniker, ECONOMIC DEVELOPMENT COORDINATOR reviewed record and discussed patient with Care [...] he will be helpful with the baby. ECONOMIC DEVELOPMENT COORDINATOR also educated pt on what to expect if her baby is admitted to the [facility]. ECONOMIC DEVELOPMENT COORDINATOR went over [facility], activity cart, massage/Reiki services, lack of privacy in [facility], andfamily rounds she can be involved [...] not be able to come up to [place] for the of the baby. ECONOMIC DEVELOPMENT COORDINATOR spoke with pt about parent child center [...] that she currently sees a counselor at [facility] and is happy with this [...] Discharge/Special Considerations: none at this time Plan: ECONOMIC DEVELOPMENT COORDINATOR will continue to follow pt each week and check in on her for needs/questions. A member of the Care Management team will continue to monitor progress, follow for continuity of care and assist with transition of care planning. DIEGO Walker Pager: [phone] * Med Student H&P - Yossi Zurita H - 07/28/2017 3:55 PM EST Obstetrical Admission Note Initial Care Provider: Dr. Sepulveda Chief Complaint: Pam Lake was admitted today secondary to Vasa-previa. Pma Lake is a 27 y.o. at 27w2d [...] when sick) Surgical history: In September at [facility] had to have her Mirena removed surgically [...] Dispense Refill Last Dose ??? vitamin with [id number] Tablet Take 1 tablet by mouth daily. [...] 150, Variability: moderate, Accels: yes, Decels: variable, [place]: None Category: II Record Review Labs Most [...] POCT GLUCOSE Routine 09/10/2017 12:58 PM EST DEPARTURE CLERK SCAN 09/10/2017 12:00 AM EST POCT GLUCOSE [...] Absolute 3.14 1.70 - 6.10 x10(3)/mc L [facility] Lymph % 33.3 % [facility] Lymphocytes Abs 2.0 0.9 - 3.2 x10(3)/mc L [facility] Monocyte % 9.7 % [facility] Monocyte Abs 0.6 0.3 - 0.9 x10(3)/mc L [facility] Eos % 2.4 % [facility] Eosinophils Abs 0.1 0.0 - 0.4 x10(3)/mc L [facility] Basophil % 0.3 % [facility] Baso Absolute 0.0 0.0 - 0.1 x10(3)/mc L [facility] Immature Gran % 0.90 % [facility] Comment: Immature granulocytes(IG's)percentage and absolute count will include metamyelocytes, myelocytes, and promyelocytes. Blood smears from CBCs yielding IG's will be scanned manually for concordance. If this scan disagrees with the automated IG or if promyelocytes are noted, a manual differential will be performed. Immature Gran Absolute 0.05(H) 0.00 - 0.04 x10(3)/mc L [facility] Blood specimen (specimen) 09/15/2017 4:15 AM EST 09/15/2017 4:30 AM EST Narrative Resulting Agency Comment Spec In Lab Arturo Waterman MD HEMATOLOGY ORDERABLE S [facility] [place] [place] [address] * (ABNORMAL) Hemogram (09/15/2017 4:15 AM EST) White Blood Cell 5.9 4.0 - 9.5 x10(3)/[facility] Red Blood Cell 2.39(L) 4.00 - 5.21 x10(6)/[facility] Hemoglobin 7.0(L) 11.7 - 15.5 gm/dL [facility] Hematocrit 20.8(L) 35.7 - 45.8 % [facility] Mean Cell Volume 87.0 82.6 - 94.4 fL [facility] Mean Cell Hemoglobin 29.3 27.1 - 32.0 pg [facility] Mean Cell Hemoglobin Concentration 33.7 31.7 - 35.0 gm/dL [facility] Platelet 247 145 - 357 x10(3)/[facility] RDW Standard Deviation 41.6 37.0 - 46.0 [facility] RDW coefficient of variation 13.4 11.5 - 14.1 % [facility] Mean Platelet Volume 8.4 7.6 - 12.9 [facility] NRBC% auto 0.0 % [facility] NRBC Absolute 0.000 0.000 - 0.000 x10(3)/ L [facility] Blood specimen (specimen) 09/15/2017 4:15 AM EST 09/15/2017 4:30 AM EST Narrative Resulting Agency Comment Spec In Lab Arturo Waterman MD HEMATOLOGY ORDERABLE S Performing Organization Address City/[facility]/ZIP Co de Phone Number [facility] [place] [address] * Basic Metabolic Panel (non-fasting) (09/15/2017 4:15 AM EST) Glucose 113 65 - 199 mg/dL [facility] Comment:Diabetes: >=200 mg/d L plus symptoms Blood Urea Nitrogen 9 8 - 18 mg/dL [facility] Creatinine 0.93 0.70 - 1.20 mg/dL [facility] Sodium 140 135 - 145 mmol/L [facility] Potassium 3.5 3.5 - 5.0 mmol/L [facility] Comment: Please note: ??Patients with WBC >100,000 may have falsely elevated Potassium levels. ??For accurate Potassium quantification in these patients send serum separator tube (gold top) for subsequent determinations. ??Contact the Clinical Chemistry Laboratory if there are any questions. Chloride 102 98 - 107 mmol/L [facility] Carbon Dioxide 27 22 - 31 mmol/L [facility] Anion Gap 11 5 - 15 mmol/L [facility] Calcium 8.6 8.5 - 10.5 mg/dL [facility] Est Glomerular Filtration Rate >60 >=60 [facility] Comment: The reported eGFR should be multiplied by 1.2 for patients. The MDRD is not an appropriate measure of renal function for patients with body mass extremes or in patients with acute kidney failure. http://MobileAds.Socowave/DHnkdep http://MobileAds.Socowave/DHMCnkf Blood specimen (specimen) 09/15/2017 4:15 AM EST 09/15/2017 4:30 AM EST Narrative Resulting Agency Comment Spec In Lab Arturo Waterman MD CHEMISTRY ORDERABLES Performing Organization Address City/[facility]/ZIP Co de Phone Number [facility] [place] [address] * (ABNORMAL) Differential, Automated (09/14/2017 8:10 AM EST) Pathologist [facility] Neutrophil % 57.5 % [facility] Neutrophil Absolute 3.93 1.70 - 6.10 x10(3)/ L [facility] Lymph % 31.8 % [facility] Lymphocytes Abs 2.2 0.9 - 3.2 x10(3)/ L [facility] Monocyte % 8.5 % [facility] Monocyte Abs 0.6 0.3 - 0.9 x10(3)/ L [facility] Eos % 1.2 % [facility] Eosinophils Abs 0.1 0.0 - 0.4 x10(3)/[facility] Basophil % 0.3 % [facility] Baso Absolute 0.0 0.0 - 0.1 x10(3)/ L [facility] Immature Gran % 0.70 % [facility] Comment: Immature granulocytes(IG's)percentage and absolute count will include metamyelocytes, myelocytes, and promyelocytes. Blood smears from CBCs yielding IG's will be scanned manually for concordance. If this scan disagrees with the automated IG or if promyelocytes are noted, a manual differential will be performed. Immature Gran Absolute 0.05(H) 0.00 - 0.04 x10(3)/ L [facility] Blood specimen (specimen) 09/14/2017 8:10 AM EST 09/14/2017 8:38 AM EST Narrative Resulting Agency Comment Spec In Lab Arturo Waterman MD HEMATOLOGY ORDERABLE S [facility] [place] [address] * (ABNORMAL) Hemogram (09/14/2017 8:10 AM EST) [facility] White Blood Cell 6.8 4.0 - 9.5 x10(3)/[facility] Red Blood Cell 2.24(L) 4.00 - 5.21 x10(6)/ L [facility] Hemoglobin 6.6(L) 11.7 - 15.5 gm/dL [facility] Hematocrit 19.4(L) 35.7 - 45.8 % [facility] Mean Cell Volume 86.6 82.6 - 94.4 fL [facility] Mean Cell Hemoglobin 29.5 27.1 - 32.0 pg [facility] Mean Cell Hemoglobin Concentration 34.0 31.7 - 35.0 gm/dL [facility] Platelet 213 145 - 357 x10(3)/[facility] RDW Standard Deviation 41.7 37.0 - 46.0 fL [facility] RDW coefficient of variation 13.6 11.5 - 14.1 % [facility] Mean Platelet Volume 8.3 7.6 - 12.9 fL [facility] NRBC% auto 0.0 % [facility] NRBC Absolute 0.000 0.000 - 0.000 x10(3)/[facility] Blood specimen (specimen) 09/14/2017 8:10 AM EST 09/14/2017 8:38 AM EST Narrative Resulting Agency Comment Spec In Lab Arturo Waterman MD HEMATOLOGY ORDERABLE S [facility] [place] [address] * (ABNORMAL) Basic Metabolic Panel (non-fasting) (09/14/2017 8:10 AM EST) Glucose 97 65 - 199 mg/dL [facility] Comment:Diabetes: >=200 mg/d L plus symptoms Blood Urea Nitrogen 6(L) 8 - 18 mg/dL [facility] Creatinine 0.54(L) 0.70 - 1.20 mg/dL [facility] Sodium 140 135 - 145 mmol/L [facility] Potassium 3.7 3.5 - 5.0 mmol/L [facility] Comment: Please note: ??Patients with WBC >100,000 may have falsely elevated Potassium levels. ??For accurate Potassium quantification in these patients send serum separator tube (gold top) for subsequent determinations. ??Contact the Clinical Chemistry Laboratory if there are any questions. Chloride 102 98 - 107 mmol/L [facility] Carbon Dioxide 27 22 - 31 mmol/L [facility] Anion Gap 11 5 - 15 mmol/L [facility] Calcium 8.5 8.5 - 10.5 mg/dL [facility] Est Glomerular Filtration Rate >60 >=60 [facility] Comment: The reported eGFR should be multiplied by 1.2 for patients. The MDRD is not an appropriate measure of renal function for patients with body mass extremes or in patients with acute kidney failure. http://Braintech/DHnkdep http://Braintech/DHMCnkf Blood specimen (specimen) 09/14/2017 8:10 AM EST 09/14/2017 8:38 AM EST Narrative Resulting Agency Comment Spec In Lab Arturo Waterman MD CHEMISTRY ORDERABLES [facility] [place] [address] * (ABNORMAL) Differential, Automated (09/13/2017 6:25 AM EST) Neutrophil % 60.5 % [facility] Neutrophil Absolute 5.31 1.70 - 6.10 x10(3)/mc L [facility] Lymph % 27.8 % [facility] Lymphocytes Abs 2.4 0.9 - 3.2 x10(3)/mc L [facility] Monocyte % 10.1 % [facility] Monocyte Abs 0.9 0.3 - 0.9 x10(3)/[facility] Eos % 0.7 % [facility] Eosinophils Abs 0.1 0.0 - 0.4 x10(3)/[facility] Basophil % 0.3 % [facility] Baso Absolute 0.0 0.0 - 0.1 x10(3)/[facility] Immature Gran % 0.60 % [facility] Comment: Immature granulocytes(IG's)percentage and absolute count will include metamyelocytes, myelocytes, and promyelocytes. Blood smears from CBCs yielding IG's will be scanned manually for concordance. If this scan disagrees with the automated IG or if promyelocytes are noted, a manual differential will be performed. Immature Gran Absolute 0.05(H) 0.00 - 0.04 x10(3)/[facility] Blood specimen (specimen) 09/13/2017 6:25 AM EST 09/13/2017 6:40 AM EST Narrative Resulting Agency Comment Spec In Lab Arturo Waterman MD HEMATOLOGY ORDERABLE S [facility] [place] [address] * (ABNORMAL) Hemogram (09/13/2017 6:25 AM EST) White Blood Cell 8.8 4.0 - 9.5 x10(3)/[facility] Red Blood Cell 2.43(L) 4.00 - 5.21 x10(6)/[facility] Hemoglobin 7.1(L) 11.7 - 15.5 gm/dL [facility] Hematocrit 20.9(L) 35.7 - 45.8 % [facility] Mean Cell Volume 86.0 82.6 - 94.4 fL [facility] Mean Cell Hemoglobin 29.2 27.1 - 32.0 pg [facility] Mean Cell Hemoglobin Concentration 34.0 31.7 - 35.0 gm/dL [facility] Platelet 187 145 - 357 x10(3)/mc L [facility] RDW Standard Deviation 41.3 37.0 - 46.0 fL [facility] RDW coefficient of variation 13.4 11.5 - 14.1 % [facility] Mean Platelet Volume 8.3 7.6 - 12.9 fL [facility] NRBC% auto 0.0 % [facility] NRBC Absolute 0.000 0.000 - 0.000 x10(3)/mc L [facility] Blood specimen (specimen) 09/13/2017 6:25 AM EST 09/13/2017 6:40 AM EST Narrative Resulting Agency Comment Spec In Lab Arturo Waterman MD HEMATOLOGY ORDERABLE S Performing Organization Address City/State/[facility] Co de Phone Number [facility] [place] [address] * (ABNORMAL) Basic Metabolic Panel (non-fasting) (09/13/2017 6:25 AM EST) Glucose 94 65 - 199 mg/dL [facility] Comment:Diabetes: >=200 mg/d L plus symptoms Blood Urea Nitrogen 7(L) 8 - 18 mg/dL [facility] Creatinine 0.65(L) 0.70 - 1.20 mg/dL [facility] Sodium 137 135 - 145 mmol/L [facility] Potassium 3.7 3.5 - 5.0 mmol/L [facility] Comment: Please note: ??Patients with WBC >100,000 may have falsely elevated Potassium levels. ??For accurate Potassium quantification in these patients send serum separator tube (gold top) for subsequent determinations. ??Contact the Clinical Chemistry Laboratory if there are any questions. Chloride 99 98 - 107 mmol/L [facility] Carbon Dioxide 24 22 - 31 mmol/L [facility] Anion Gap 14 5 - 15 mmol/L [facility] Calcium 8.4(L) 8.5 - 10.5 mg/dL [facility] Est Glomerular Filtration Rate >60 >=60 [facility] Comment: The reported eGFR should be multiplied by 1.2 for patients. The MDRD is not an appropriate measure of renal function for patients with body mass extremes or in patients with acute kidney failure. http://Braintech/DHnkdep http://Braintech/DHMCnkf Blood specimen (specimen) 09/13/2017 6:25 AM EST 09/13/2017 6:40 AM EST Narrative Resulting Agency Comment Spec In Lab Arturo Waterman MD CHEMISTRY ORDERABLES [facility] [place] [address] * (ABNORMAL) Differential, Automated (09/12/2017 6:10 AM EST) Neutrophil % 66.0 % [facility] Neutrophil Absolute 5.44 1.70 - 6.10 x10(3)/mc L [facility] Lymph % 23.3 % [facility] Lymphocytes Abs 1.9 0.9 - 3.2 x10(3)/mc L [facility] Monocyte % 9.7 % [facility] Monocyte Abs 0.8 0.3 - 0.9 x10(3)/mc L [facility] Eos % 0.2 % [facility] Eosinophils Abs 0.0 0.0 - 0.4 x10(3)/mc L [facility] Basophil % 0.2 % [facility] Baso Absolute 0.0 0.0 - 0.1 x10(3)/mc L [facility] Immature Gran % 0.60 % [facility] Comment: Immature granulocytes(IG's)percentage and absolute count will include metamyelocytes, myelocytes, and promyelocytes. Blood smears from CBCs yielding IG's will be scanned manually for concordance. If this scan disagrees with the automated IG or if promyelocytes are noted, a manual differential will be performed. Immature Gran Absolute 0.05(H) 0.00 - 0.04 x10(3)/mc L [facility] Blood specimen (specimen) 09/12/2017 6:10 AM EST 09/12/2017 6:21 AM EST Narrative Resulting Agency Comment Spec In Lab Arturo Waterman MD HEMATOLOGY ORDERABLE S [facility] [place] [address] * (ABNORMAL) Hemogram (09/12/2017 6:10 AM EST) White Blood Cell 8.2 4.0 - 9.5 x10(3)/mc L [facility] Red Blood Cell 2.62(L) 4.00 - 5.21 x10(6)/mc L [facility] Hemoglobin 7.6(L) 11.7 - 15.5 gm/dL [facility] Comment: This result has been called to EMERITA CADENA by Gail Ramires on 09 12 2017 at 0635, and has been read back. Hematocrit 22.1(L) 35.7 - 45.8 % [facility] Mean Cell Volume 84.4 82.6 - 94.4 fL [facility] Mean Cell Hemoglobin 29.0 27.1 - 32.0 pg [facility] Mean Cell Hemoglobin Concentration 34.4 31.7 - 35.0 gm/dL [facility] Platelet 190 145 - 357 x10(3)/mc L [facility] RDW Standard Deviation 40.1 37.0 - 46.0 fL [facility] RDW coefficient of variation 13.2 11.5 - 14.1 % [facility] Mean Platelet Volume 8.5 7.6 - 12.9 fL [facility] NRBC% auto 0.0 % [facility] NRBC Absolute 0.000 0.000 - 0.000 x10(3)/mc L [facility] Blood specimen (specimen) 09/12/2017 6:10 AM EST 09/12/2017 6:21 AM EST Narrative Resulting Agency Comment Spec In Lab Arturo Waterman MD HEMATOLOGY ORDERABLE S [facility] [place] [address] * (ABNORMAL) Basic Metabolic Panel (non-fasting) (09/12/2017 6:10 AM EST) Glucose 87 65 - 199 mg/dL [facility] Comment:Diabetes: >=200 mg/d L plus symptoms Blood Urea Nitrogen 5(L) 8 - 18 mg/dL [facility] Creatinine 0.57(L) 0.70 - 1.20 mg/dL [facility] Sodium 135 135 - 145 mmol/L [facility] Potassium 4.3 3.5 - 5.0 mmol/L [facility] Comment: Please note: ??Patients with WBC >100,000 may have falsely elevated Potassium levels. ??For accurate Potassium quantification in these patients send serum separator tube (gold top) for subsequent determinations. ??Contact the Clinical Chemistry Laboratory if there are any questions. Chloride 99 98 - 107 mmol/L [facility] Carbon Dioxide 24 22 - 31 mmol/L [facility] Anion Gap 12 5 - 15 mmol/L [facility] Calcium 7.8(L) 8.5 - 10.5 mg/dL [facility] Est Glomerular Filtration Rate >60 >=60 [facility] Comment: The reported eGFR should be multiplied by 1.2 for patients. The MDRD is not an appropriate measure of renal function for patients with body mass extremes or in patients with acute kidney failure. http://Braintech/DHnkdep http://Braintech/DHMCnkf Blood specimen (specimen) 09/12/2017 6:10 AM EST 09/12/2017 6:21 AM EST Narrative Resulting Agency Comment Spec In Lab Arturo Waterman MD CHEMISTRY ORDERABLES Performing Organization Address [facility] Co de Phone Number [facility] [place] [address] * (ABNORMAL) Magnesium (09/12/2017 6:10 AM EST) Magnesium 0.63(L) 0.69 - 1.07 mmol/L [facility] Blood specimen (specimen) 09/12/2017 6:10 AM EST 09/12/2017 6:21 AM EST Narrative Resulting Agency Comment Spec In Lab Arturo Waterman MD CHEMISTRY ORDERABLES Performing Organization Address [facility] Co de Phone Number [facility] [place] [address] * Specimen to Pathology (09/11/2017 4:04 PM EST) AP Specimen 09/11/2017 4:04 PM EST 09/11/2017 4:04 PM EST Narrative [facility] - 09/11/2017 4:04 PM EST Specimen requisition ordered. ??Separate Pathology report to follow Arturo Waterman MD PATHOLOGY/CYTOLOGY O RDERABLES Performing Organization Address [facility] Co de Phone Number [facility] [place] [address] * (ABNORMAL) Differential, Automated (09/11/2017 2:57 PM EST) Neutrophil % 86.4 % [facility] Neutrophil Absolute 11.87(H) 1.70 - 6.10 x10(3)/mc L [facility] Lymph % 8.5 % [facility] Lymphocytes Abs 1.2 0.9 - 3.2 x10(3)/mc L [facility] Monocyte % 4.4 % [facility] [facility] Monocyte Abs 0.6 0.3 - 0.9 x10(3)/[facility] LABORATORY Eos % 0.0 % [facility] Eosinophils Abs 0.0 0.0 - 0.4 x10(3)/[facility] LABORATORY Basophil % 0.1 % [facility] Baso Absolute 0.0 0.0 - 0.1 x10(3)/[facility] LABORATORY Immature Gran % 0.60 % [facility] Comment: Immature granulocytes(IG's)percentage and absolute count will include metamyelocytes, myelocytes, and promyelocytes. Blood smears from CBCs yielding IG's will be scanned manually for concordance. If this scan disagrees with the automated IG or if promyelocytes are noted, a manual differential will be performed. Immature Gran Absolute 0.08(H) 0.00 - 0.04 x10(3)/[facility] LABORATORY Blood specimen (specimen) 09/11/2017 2:57 PM EST 09/11/2017 3:03 PM EST Narrative Resulting Agency Comment Spec In Lab Arturo Waterman MD HEMATOLOGY ORDERABLE S [facility] [place] [address] * (ABNORMAL) Hemogram (09/11/2017 2:57 PM EST) White Blood Cell 13.8(H) 4.0 - 9.5 x10(3)/[facility] LABORATORY Red Blood Cell 3.44(L) 4.00 - 5.21 x10(6)/[facility] LABORATORY Hemoglobin 10.3(L) 11.7 - 15.5 gm/dL [facility] Hematocrit 29.0(L) 35.7 - 45.8 % [facility] Mean Cell Volume 84.3 82.6 - 94.4 fL [facility] Mean Cell Hemoglobin 29.9 27.1 - 32.0 pg [facility] Mean Cell Hemoglobin Concentration 35.5(H) 31.7 - 35.0 gm/dL [facility] Platelet 218 145 - 357 x10(3)/mc L [facility] RDW Standard Deviation 38.5 37.0 - 46.0 fL [facility] RDW coefficient of variation 12.8 11.5 - 14.1 % [facility] Mean Platelet Volume 8.7 7.6 - 12.9 fL [facility] NRBC% auto 0.0 % [facility] NRBC Absolute 0.000 0.000 - 0.000 x10(3)/mc L [facility] Blood specimen (specimen) 09/11/2017 2:57 PM EST 09/11/2017 3:03 PM EST Narrative Resulting Agency Comment Spec In Lab Arturo Waterman MD HEMATOLOGY ORDERABLE S Performing Organization Address City/[facility]/ZIP Co de Phone Number [facility] [place] [address] * (ABNORMAL) Magnesium (09/11/2017 2:57 PM EST) Magnesium 0.52(L) 0.69 - 1.07 mmol/L [facility] Blood specimen (specimen) 09/11/2017 2:57 PM EST 09/11/2017 3:03 PM EST Narrative Resulting Agency Comment Spec In Lab Arturo Waterman MD CHEMISTRY ORDERABLES Performing Organization Address [facility]/ZIP Co de Phone Number [facility] [place] [address] * (ABNORMAL) Basic Metabolic Panel (non-fasting) (09/11/2017 2:57 PM EST) Glucose 130 65 - 199 mg/dL [facility] Comment:Diabetes: >=200 mg/d L plus symptoms Blood Urea Nitrogen 6(L) 8 - 18 mg/dL [facility] Creatinine 0.44(L) 0.70 - 1.20 mg/dL [facility] Sodium 138 135 - 145 mmol/L [facility] Potassium 4.1 3.5 - 5.0 mmol/L [facility] Comment: Please note: ??Patients with WBC >100,000 may have falsely elevated Potassium levels. ??For accurate Potassium quantification in these patients send serum separator tube (gold top) for subsequent determinations. ??Contact the Clinical Chemistry Laboratory if there are any questions. Chloride 103 98 - 107 mmol/L [facility] Carbon Dioxide 21(L) 22 - 31 mmol/L [facility] Anion Gap 14 5 - 15 mmol/L [facility] Calcium 8.1(L) 8.5 - 10.5 mg/dL [facility] Est Glomerular Filtration Rate >60 >=60 [facility] Comment: The reported eGFR should be multiplied by 1.2 for patients. The MDRD is not an appropriate measure of renal function for patients with body mass extremes or in patients with acute kidney failure. [email or web address].Socowave/DHnkdep [email or web address]://Braintech/DHMCnkf Blood specimen (specimen) 09/11/2017 2:57 PM EST 09/11/2017 3:03 PM EST Narrative Resulting Agency Comment Spec In Lab Arturo Waterman MD CHEMISTRY ORDERABLES Performing Organization Address City/State/[facility] Co de Phone Number [facility] [place] [address] * Fibrinogen (09/11/2017 2:57 PM EST) Fibrinogen 361 180 - 510 mg/dL [facility] Comment: A fibrinogen level >100 mg/dL is adequate for hemostasis in most patients without underlying bleeding disorders. Blood specimen (specimen) 09/11/2017 2:57 PM EST 09/11/2017 3:03 PM EST Narrative Resulting Agency Comment Spec In Lab Arturo Waterman MD HEMATOLOGY ORDERABLE S Performing Organization Address [facility] Co de Phone Number [facility] [place] [address] * APTT (09/11/2017 2:57 PM EST) Partial Thromboplastin Time 30 25 - 35 sec [facility] Comment: The recommended therapeutic range for full dose, unfractionated heparin at [facility] is 80 ? 114 seconds. The use of the anti-Xa (heparin) level rather than the PTT is recommended for monitoring anticoagulation intensity in critically ill patients receiving unfractionated heparin by continuous IV infusion. Blood specimen (specimen) 09/11/2017 2:57 PM EST 09/11/2017 3:03 PM EST Narrative Resulting Agency Comment Spec In Lab Arturo Waterman MD HEMATOLOGY ORDERABLE S Performing Organization Address [facility] de Phone Number [facility] [place] [address] * (ABNORMAL) Prothrombin Time (09/11/2017 2:57 PM EST) Prothrombin Time 14.4(H) 11.8 - 14.0 sec [facility] International Normalization Ratio 1.2(H) 0.9 - 1.1 [facility] Comment: An INR <2.0 indicates [...] ORDERABLE S Performing Organization Address [facility] Co de Phone Number [facility] [place] [address] * XR Abdomen 1 view (Generic) (09/11/2017 [...] PM EST 09/11/2017 1:53 PM EST Narrative [facility] - 09/11/2017 1:53 PM EST Specimen requisition ordered. ??Separate Pathology report to follow Chely iSn MD PATHOLOGY/CYTOLOGY O RDERABLES [facility] [place] [address] * Specimen to Pathology (09/11/2017 1:30 PM EST) AP Specimen 09/11/2017 1:30 PM EST 09/11/2017 1:30 PM EST Narrative [facility] - 09/11/2017 1:30 PM EST Specimen requisition ordered. ??Separate Pathology report to follow Arturo Waterman MD PATHOLOGY/CYTOLOGY O RDERABLES Performing Organization Address [facility] Co de Phone Number [facility] [place] [address] * Prepare RBC (09/11/2017 12:05 PM EST) Dispensed? Yes [facility] Blood specimen (specimen) 09/11/2017 12:05 PM EST 09/11/2017 12:03 PM EST Arturo Waterman MD BLOOD BANK PRODUCT O RDERABLES Performing Organization Address [facility] de Phone Number [facility] [place] [address] * Surgical Pathology Report (09/11/2017 12:01 PM EST) Final Diagnosis [id number] ? Location: ; [facility]; A The signing pathologist has [...] Jayson Velez Verified: ??09/17/2017 ?Pathologist Performed at: ??-[facility] Dept. of Pathology, [place], [place] CLINICAL INFORMATION Specimen Submitted: A - [...] ?. (R15) ??doron 09/17/2017 9:19 AM EST [facility] TISSUE SPECIMEN FROM PLACENTA / Unknown 09/11/2017 12:01 PM EST 09/11/2017 12:01 PM EST Uterine Corpus 09/11/2017 12 :01 PM EST 09/11/2017 12:01 PM EST Jhonathan Robertson MD PATHOLOGY/CYTOLOGY O RDERABLES [facility] [place] [address] * POCT Glucose (09/11/2017 8:58 AM EST) Pathologist [facility] Glucose, POC 91 65 - 199 mg/dL [facility] Comment: Supplemental ranges: <140 mg/dL before meals <180 mg/dL all other times of the day Blood specimen (specimen) 09/11/2017 8:58 AM EST 09/11/2017 8:58 AM EST Arturo Waterman MD POINT OF CARE TEST O RDERABLES Performing Organization Address [facility]/ZIP Co de Phone Number [facility] [place] [address] * Ab Comment (09/11/2017 5:15 AM EST) Pathologist [facility] Ab Information INTERPRETATION: A red cell alloantibody, [...] MD, PhD Transfusion Medicine Service 09/22/17 12:02 [facility] Comment: KANIKA LIM, Pathologist Verified:09/22/17 Blood specimen (specimen) Venous Draw / Unknown 09/11/2017 5:15 AM EST 09/11/2017 5:29 AM EST Narrative Resulting Agency Comment Spec In Lab Yoly Cueva MD BLOOD BANK LAB ORDER KURT Performing Organization Address City/[facility] Co de Phone Number [facility] [place] [address] * Antibody identification (09/11/2017 5:15 AM EST) Ab Identified Anti-Jka [facility] Blood specimen (specimen) Venous Draw / Unknown 09/11/2017 5:15 AM EST 09/11/2017 5:29 AM EST Narrative Resulting Agency Comment Spec In Lab Yoly Cueva MD BLOOD BANK LAB ORDER KURT Performing Organization Address City/[facility]/ZIP Co de Phone Number [facility] [place] [address] * ABORH Recheck Status (09/11/2017 5:15 AM EST) ABORH Type Recheck Completed [facility] Blood specimen (specimen) Venous Draw / Unknown 09/11/2017 5:15 AM EST 09/11/2017 5:29 AM EST Narrative Resulting Agency Comment Spec In Lab Yoly Cueva MD BLOOD BANK LAB ORDER KURT Performing Organization Address City/[facility]/ZIP Co de Phone Number [facility] [place] [address] * Antibody screen manual (09/11/2017 5:15 AM EST) [facility] AB Screen Interp Positive [facility] Blood specimen (specimen) Venous Draw / Unknown 09/11/2017 5:15 AM EST 09/11/2017 5:29 AM EST Narrative Resulting Agency Comment Spec In Lab Arturo Waterman MD BLOOD BANK LAB ORDER KURT [facility] [place] [address] * ABORh Type Manual (09/11/2017 5:15 AM EST) [facility] Expires at [id number] on: 09/14/2017 [facility] ABORH Type B Pos [facility] Blood specimen (specimen) Venous Draw / Unknown 09/11/2017 5:15 AM EST 09/11/2017 5:29 AM EST Narrative Resulting Agency Comment Spec In Lab Arturo Waterman MD BLOOD BANK LAB ORDER KURT [facility] [place] [place] [address] * Differential, Automated (09/11/2017 5:15 AM EST) [facility] Neutrophil % 59.9 % [facility] Neutrophil Absolute 4.60 1.70 - 6.10 x10(3)/[facility] LABORATORY Lymph % 29.6 % [facility] Lymphocytes Abs 2.3 0.9 - 3.2 x10(3)/[facility] LABORATORY Monocyte % 8.8 % [facility] Monocyte Abs 0.7 0.3 - 0.9 x10(3)/[facility] LABORATORY Eos % 0.9 % [facility] Eosinophils Abs 0.1 0.0 - 0.4 x10(3)/[facility] LABORATORY Basophil % 0.3 % [facility] Baso Absolute 0.0 0.0 - 0.1 x10(3)/[facility] LABORATORY Immature Gran % 0.50 % [facility] Comment: Immature granulocytes(IG's)percentage and absolute count will include metamyelocytes, myelocytes, and promyelocytes. Blood smears from CBCs yielding IG's will be scanned manually for concordance. If this scan disagrees with the automated IG or if promyelocytes are noted, a manual differential will be performed. Immature Gran Absolute 0.04 0.00 - 0.04 x10(3)/[facility] LABORATORY Blood specimen (specimen) 09/11/2017 5:15 AM EST 09/11/2017 5:32 AM EST Narrative Resulting Agency Comment Spec In Lab Arturo Waterman MD HEMATOLOGY ORDERABLE S Performing Organization Address City/State/[facility] Co de Phone Number [facility] [place] [address] * (ABNORMAL) Hemogram (09/11/2017 5:15 AM EST) White Blood Cell 7.7 4.0 - 9.5 x10(3)/[facility] LABORATORY Red Blood Cell 3.88(L) 4.00 - 5.21 x10(6)/[facility] LABORATORY Hemoglobin 11.2(L) 11.7 - 15.5 gm/dL [facility] Hematocrit 32.4(L) 35.7 - 45.8 % [facility] Mean Cell Volume 83.5 82.6 - 94.4 fL [facility] Mean Cell Hemoglobin 28.9 27.1 - 32.0 pg [facility] Mean Cell Hemoglobin Concentration 34.6 31.7 - 35.0 gm/dL [facility] Platelet 195 145 - 357 x10(3)/ L [facility] RDW Standard Deviation 38.8 37.0 - 46.0 fL [facility] RDW coefficient of variation 12.9 11.5 - 14.1 % [facility] Mean Platelet Volume 8.2 7.6 - 12.9 fL [facility] NRBC% auto 0.0 % [facility] NRBC Absolute 0.000 0.000 - 0.000 x10(3)/mc L [facility] Blood specimen (specimen) 09/11/2017 5:15 AM EST 09/11/2017 5:32 AM EST Narrative Resulting Agency Comment Spec In Lab Arturo Waterman MD HEMATOLOGY ORDERABLE S Performing Organization Address [facility] Co de Phone Number [facility] [place] [address] * SCAN DOC: LAB (09/11/2017 12:00 AM EST) Narrative 09/11/2017 12:00 AM EST Ordered by an unspecified provider. Scanning Provider MEDIA MGR SCAN EXT O RDR/RSLT * POCT Glucose (09/10/2017 7:15 PM EST) Glucose, POC 99 65 - 199 mg/dL [facility] Comment: Supplemental ranges: <140 mg/dL before meals <180 mg/dL all other times of the day Blood specimen (specimen) 09/10/2017 7:15 PM EST 09/10/2017 7:15 PM EST Arturo Waterman MD POINT OF CARE TEST O RDERABLES Performing Organization Address [facility]/ZIP Co de Phone Number [facility] [place] [address] * POCT Glucose (09/10/2017 3:01 PM EST) Glucose, POC 138 65 - 199 mg/dL [facility] Comment: Supplemental ranges: <140 mg/dL before meals <180 mg/dL all other times of the day Blood specimen (specimen) 09/10/2017 3:01 PM EST 09/10/2017 3:01 PM EST Arturo Waterman MD POINT OF CARE TEST O JORGE ALBERTO Performing Organization Address [facility]/ZIP Co de Phone Number [facility] [place] [address] * POCT Glucose (09/10/2017 12:58 PM EST) Glucose, POC 83 65 - 199 mg/dL [facility] Comment: Supplemental ranges: <140 mg/dL before meals <180 mg/dL all other times of the day Blood specimen (specimen) 09/10/2017 12:58 PM EST 09/10/2017 12:58 PM EST Arturo Waterman MD POINT OF CARE TEST O JORGE ALBERTO Performing Organization Address [facility] de Phone Number [facility] [place] [address] * SCAN DOC: DEPARTURE CLERK (09/10/2017 12:00 AM EST) Anatomical Region Laterality Modality Other Narrative 09/10/2017 12:00 AM EST Ordered by an unspecified provider. Scanning Provider MEDIA MGR SCAN EXT O RDR/RSLT * POCT Glucose (09/09/2017 8:28 PM EST) Glucose, POC 118 65 - 199 mg/dL [facility] Comment: Supplemental ranges: <140 mg/dL before meals <180 mg/dL all other times of the day Blood specimen (specimen) 09/09/2017 8:28 PM EST 09/09/2017 8:28 PM EST Arturo Waterman MD POINT OF CARE TEST O RDERAFRANNIE Performing Organization Address [facility] Co de Phone Number [facility] [place] [address] * POCT Glucose (09/09/2017 3:32 PM EST) Glucose, POC 121 65 - 199 mg/dL [facility] Comment: Supplemental ranges: <140 mg/dL before meals <180 mg/dL all other times of the day Blood specimen (specimen) 09/09/2017 3:32 PM EST 09/09/2017 3:32 PM EST Arturo Waterman MD POINT OF CARE TEST O RDERAFRANNIE Performing Organization Address City/[facility]/ZIP Co de Phone Number [facility] [place] [address] * POCT Glucose (09/09/2017 1:46 PM EST) Glucose, POC 75 65 - 199 mg/dL [facility] Comment: Supplemental ranges: <140 mg/dL before meals <180 mg/dL all other times of the day Blood specimen (specimen) 09/09/2017 1:46 PM EST 09/09/2017 1:46 PM EST Arturo Waterman MD POINT OF CARE TEST O BENJYERAFRANNIE Performing Organization Address [facility] Co de Phone Number [facility] [place] [address] * POCT Glucose (09/09/2017 12:28 AM EST) Glucose, POC 169 65 - 199 mg/dL [facility] Comment: Supplemental ranges: <140 mg/dL before meals <180 mg/dL all other times of the day Blood specimen (specimen) 09/09/2017 12:28 AM EST 09/09/2017 12:28 AM EST Arturo Waterman MD POINT OF CARE TEST O RDERAFRANNIE Performing Organization Address City/[facility] Co de Phone Number [facility] [place] [address] * POCT Glucose (09/08/2017 2:38 PM EST) Glucose, POC 160 65 - 199 mg/dL [facility] Comment: Supplemental ranges: <140 mg/dL before meals <180 mg/dL all other times of the day Blood specimen (specimen) 09/08/2017 2:38 PM EST 09/08/2017 2:38 PM EST Arturo Waterman MD POINT OF CARE TEST O RDERAFRANNIE Performing Organization Address City/[facility]/ZIP Co de Phone Number [facility] [place] [address] * POCT Glucose (09/08/2017 11:46 AM EST) Glucose, POC 89 65 - 199 mg/dL [facility] Comment: Supplemental ranges: <140 mg/dL before meals <180 mg/dL all other times of the day Blood specimen (specimen) 09/08/2017 11:46 AM EST 09/08/2017 11:46 AM EST Arturo Waterman MD POINT OF CARE TEST O BENJYERAFRANNIE Performing Organization Address [facility]/ZIP Co de Phone Number [facility] [place] [address] * POCT Glucose (09/07/2017 10:41 PM EST) Glucose, POC 140 65 - 199 mg/dL [facility] Comment: Supplemental ranges: <140 mg/dL before meals <180 mg/dL all other times of the day Blood specimen (specimen) 09/07/2017 10:41 PM EST 09/07/2017 10:41 PM EST Arturo Waterman MD POINT OF CARE TEST O RDERAFRANNIE [facility] [place] [address] * POCT Glucose (09/07/2017 2:56 PM EST) Glucose, POC 147 65 - 199 mg/dL [facility] Comment: Supplemental ranges: <140 mg/dL before meals <180 mg/dL all other times of the day Blood specimen (specimen) 09/07/2017 2:56 PM EST 09/07/2017 2:56 PM EST Arturo Waterman MD POINT OF CARE TEST O JORGE ALBERTO Performing Organization Address City/[facility]/ZIP Co de Phone Number [facility] [place] [address] * POCT Glucose (09/07/2017 12:55 PM EST) Glucose, POC 85 65 - 199 mg/dL [facility] Comment: Supplemental ranges: <140 mg/dL before meals <180 mg/dL all other times of the day Blood specimen (specimen) 09/07/2017 12:55 PM EST 09/07/2017 12:55 PM EST Arturo Waterman MD POINT OF CARE TEST O JORGE ALBERTO Performing Organization Address [facility]/ZIP Co de Phone Number [facility] [place] [address] * POCT Glucose (09/06/2017 7:37 PM EST) Glucose, POC 120 65 - 199 mg/dL [facility] Comment: Supplemental ranges: <140 mg/dL before meals <180 mg/dL all other times of the day Blood specimen (specimen) 09/06/2017 7:37 PM EST 09/06/2017 7:37 PM EST Arturo Waterman MD POINT OF CARE TEST O JORGE ALBERTO Performing Organization Address City/[facility]/ZIP Co de Phone Number [facility] [place] [address] * POCT Glucose (09/06/2017 2:12 PM EST) Glucose, POC 134 65 - 199 mg/dL [facility] Comment: Supplemental ranges: <140 mg/dL before meals <180 mg/dL all other times of the day Blood specimen (specimen) 09/06/2017 2:12 PM EST 09/06/2017 2:12 PM EST Arturo Waterman MD POINT OF CARE TEST O JORGE ALBERTO Performing Organization Address [facility] Co de Phone Number [facility] [place] [address] * POCT Glucose (09/06/2017 12:09 PM EST) Glucose, POC 85 65 - 199 mg/dL [facility] Comment: Supplemental ranges: <140 mg/dL before meals <180 mg/dL all other times of the day Blood specimen (specimen) 09/06/2017 12:09 PM EST 09/06/2017 12:09 PM EST Arturo Waterman MD POINT OF CARE TEST O JORGE ALBERTO Performing Organization Address [facility] Co de Phone Number [facility] [place] [address] * POCT Glucose (09/05/2017 8:40 PM EST) Glucose, POC 123 65 - 199 mg/dL [facility] Comment: Supplemental ranges: <140 mg/dL before meals <180 mg/dL all other times of the day Blood specimen (specimen) 09/05/2017 8:40 PM EST 09/05/2017 8:40 PM EST Arturo Waterman MD POINT OF CARE TEST O JORGE ALBERTO Performing Organization Address [facility] Co de Phone Number [facility] [place] [address] * POCT Glucose (09/05/2017 3:39 PM EST) Glucose, POC 163 65 - 199 mg/dL [facility] Comment: Supplemental ranges: <140 mg/dL before meals <180 mg/dL all other times of the day Blood specimen (specimen) 09/05/2017 3:39 PM EST 09/05/2017 3:39 PM EST Arturo Waterman MD POINT OF CARE TEST O RDERAFRANNIE Performing Organization Address [facility]/ZIP Co de Phone Number [facility] [place] [address] * POCT Glucose (09/05/2017 1:45 PM EST) Glucose, POC 91 65 - 199 mg/dL [facility] Comment: Supplemental ranges: <140 mg/dL before meals <180 mg/dL all other times of the day Blood specimen (specimen) 09/05/2017 1:45 PM EST 09/05/2017 1:45 PM EST Arturo Waterman MD POINT OF CARE TEST O BENJYERAFRANNIE Performing Organization Address [facility] Co de Phone Number [facility] [place] [address] * POCT Glucose (09/04/2017 11:36 PM EST) Glucose, POC 167 65 - 199 mg/dL [facility] Comment: Supplemental ranges: <140 mg/dL before meals <180 mg/dL all other times of the day Blood specimen (specimen) 09/04/2017 11:36 PM EST 09/04/2017 11:36 PM EST Arturo Waterman MD POINT OF CARE TEST O JORGE ALBERTO Performing Organization Address [facility] Co de Phone Number [facility] [place] [address] * POCT Glucose (09/04/2017 4:14 PM EST) Glucose, POC 150 65 - 199 mg/dL [facility] Comment: Supplemental ranges: <140 mg/dL before meals <180 mg/dL all other times of the day Blood specimen (specimen) 09/04/2017 4:14 PM EST 09/04/2017 4:14 PM EST Arturo Waterman MD POINT OF CARE TEST O RDERABLES Performing Organization Address City/[facility]/ZIP Co de Phone Number [facility] [place] [address] * POCT Glucose (09/04/2017 1:29 PM EST) Glucose, POC 99 65 - 199 mg/dL [facility] Comment: Supplemental ranges: <140 mg/dL before meals <180 mg/dL all other times of the day Blood specimen (specimen) 09/04/2017 1:29 PM EST 09/04/2017 1:29 PM EST Arturo Waterman MD POINT OF CARE TEST O RDERAFRANNIE Performing Organization Address [facility] Co de Phone Number [facility] [place] [address] * POCT Glucose (09/03/2017 4:56 PM EST) Glucose, POC 138 65 - 199 mg/dL [facility] Comment: Supplemental ranges: <140 mg/dL before meals <180 mg/dL all other times of the day Blood specimen (specimen) 09/03/2017 4:56 PM EST 09/03/2017 4:56 PM EST Arturo Waterman MD POINT OF CARE TEST O RDERAFRANNIE Performing Organization Address [facility] Co de Phone Number [facility] [place] [address] * POCT Glucose (09/03/2017 2:11 PM EST) Glucose, POC 92 65 - 199 mg/dL [facility] Comment: Supplemental ranges: <140 mg/dL before meals <180 mg/dL all other times of the day Blood specimen (specimen) 09/03/2017 2:11 PM EST 09/03/2017 2:11 PM EST Arturo Waterman MD POINT OF CARE TEST O RDERAFRANNIE [facility] [place] [address] * POCT Glucose (09/02/2017 9:34 PM EST) Glucose, POC 118 65 - 199 mg/dL [facility] Comment: Supplemental ranges: <140 mg/dL before meals <180 mg/dL all other times of the day Blood specimen (specimen) 09/02/2017 9:34 PM EST 09/02/2017 9:34 PM EST Arturo Waterman MD POINT OF CARE TEST O RDERABLES Performing Organization Address City/[facility]/ZIP Co de Phone Number [facility] [place] [address] * POCT Glucose (09/02/2017 3:23 PM EST) Glucose, POC 163 65 - 199 mg/dL [facility] Comment: Supplemental ranges: <140 mg/dL before meals <180 mg/dL all other times of the day Blood specimen (specimen) 09/02/2017 3:23 PM EST 09/02/2017 3:23 PM EST Arturo Waterman MD POINT OF CARE TEST O RDERABLES Performing Organization Address [facility]/ZIP Co de Phone Number [facility] [place] [address] * POCT Glucose (09/02/2017 12:33 PM EST) Glucose, POC 94 65 - 199 mg/dL [facility] Comment: Supplemental ranges: <140 mg/dL before meals <180 mg/dL all other times of the day Blood specimen (specimen) 09/02/2017 12:33 PM EST 09/02/2017 12:33 PM EST Arturo Waterman MD POINT OF CARE TEST O RDERABLES [facility] [place] [address] * Group B Streptococcus Screen (09/02/2017 1:57 AM EST) GBS Screen Neg [facility] Pooled specimen from vaginal introitus and rectal swab (specimen) 09/02/2017 1:57 AM EST 09/02/2017 8:15 AM EST Comment:Penicillin Allergy?- >No Narrative Resulting Agency Comment Spec In Lab Arturo Waterman MD MICROBIOLOGY - GENER AL ORDERABLES Performing Organization Address City/[facility]/ZIP Co de Phone Number [facility] [place] [address] * Group B Strep Culture Screen (09/02/2017 1:57 AM EST) Group B Streptococcus Culture No Group B Streptococci isolated [facility] Pooled specimen from vaginal introitus and rectal swab (specimen) 09/02/2017 1:57 AM EST 09/02/2017 8:15 AM EST Comment:PENICILLIN ALLERGY?- >NO Narrative Resulting Agency Comment Spec In Lab Arturo Waterman MD MICROBIOLOGY - GENER AL ORDERABLES Performing Organization Address [facility]/ZIP Co de Phone Number [facility] [place] [address] * POCT Glucose (09/01/2017 7:29 PM EST) Glucose, POC 136 65 - 199 mg/dL [facility] Comment: Supplemental ranges: <140 mg/dL before meals <180 mg/dL all other times of the day Blood specimen (specimen) 09/01/2017 7:29 PM EST 09/01/2017 7:29 PM EST Arturo Waterman MD POINT OF CARE TEST O RDERABLES Performing Organization Address [facility] Co de Phone Number [facility] [place] [address] * US OB Follow Up Evaluation (09/01/2017 [...] 11:19 am) PATIENT INFO: ID #: ? [id number] ?: ??[birth year] (27 yrs) Name: ? PAM Lopez ?Visit Date: 09/01/2017 10:00 am ? JAYA PERFORMED BY: Performed By: ? Ruth Ann Dixon RDMS Attending: ?Derick TAY, Li Umanzor Referred By: ?ARTURO WATERMAN Location: ? [place] SERVICE(S) PROVIDED: ??UOBFOL - Efw - Growth - [place] - ? [id number] ??UOBTV - Viability - Cervical Length -Transvaginal - ?? [id number] ??[id number] INDICATIONS: ??32 weeks gestation of ?Z3A.32 ??follow [...] 09/01/2017 11:19 am) PATIENT INFO: ID #: [id number] : [birth year] (27 yrs) Name: PAM Lopez Visit Date: 09/01/2017 10:00 am [place] PERFORMED BY: Performed By: Ruth Ann Dixon RDMS Attending: Li Sepulveda MD Referred By: ARTURO WATERMAN Location: [place] SERVICE(S) PROVIDED: UOBFOL - Efw - Growth - [place] - [id number] UOBTV - Viability - Cervical Length -Transvaginal - [id number] INDICATIONS: 32 weeks gestation of Z3A.32 follow [...] Report 09/01/2017 11:19 am Arturo Waterman MD [facility] OB ORDERABLES * POCT Glucose (09/01/2017 8:45 AM EST) [facility] Signature Glucose, POC 92 65 - 199 mg/dL [facility] Comment: Supplemental ranges: <140 mg/dL before meals <180 mg/dL all other times of the day Blood specimen (specimen) 09/01/2017 8:45 AM EST 09/01/2017 8:45 AM EST Arturo Waterman MD POINT OF CARE TEST O RDERABLES [facility] [place] [address] * POCT Glucose (08/31/2017 3:32 PM EST) Glucose, POC 110 65 - 199 mg/dL [facility] Comment: Supplemental ranges: <140 mg/dL before meals <180 mg/dL all other times of the day Blood specimen (specimen) 08/31/2017 3:32 PM EST 08/31/2017 3:32 PM EST Arturo Waterman MD POINT OF CARE TEST O JORGE ALBERTO [facility] [place] [address] * POCT Glucose (08/31/2017 8:49 AM EST) Glucose, POC 94 65 - 199 mg/dL [facility] Comment: Supplemental ranges: <140 mg/dL before meals <180 mg/dL all other times of the day Blood specimen (specimen) 08/31/2017 8:49 AM EST 08/31/2017 8:49 AM EST Arturo Waterman MD POINT OF CARE TEST O JORGE ALBERTO Performing Organization Address City/[facility]/ZIP Co de Phone Number [facility] [place] [address] * POCT Glucose (08/30/2017 8:54 PM EST) Glucose, POC 130 65 - 199 mg/dL [facility] Comment: Supplemental ranges: <140 mg/dL before meals <180 mg/dL all other times of the day Blood specimen (specimen) 08/30/2017 8:54 PM EST 08/30/2017 8:54 PM EST Arturo Waterman MD POINT OF CARE TEST O JORGE ALBERTO [facility] [place] [address] * POCT Glucose (08/30/2017 3:16 PM EST) Glucose, POC 121 65 - 199 mg/dL [facility] Comment: Supplemental ranges: <140 mg/dL before meals <180 mg/dL all other times of the day Blood specimen (specimen) 08/30/2017 3:16 PM EST 08/30/2017 3:16 PM EST Arturo Waterman MD POINT OF CARE TEST O RDERAFRANNIE Performing Organization Address City/[facility]/ZIP Co de Phone Number [facility] [place] [address] * POCT Glucose (08/30/2017 12:38 PM EST) Glucose, POC 92 65 - 199 mg/dL [facility] Comment: Supplemental ranges: <140 mg/dL before meals <180 mg/dL all other times of the day Blood specimen (specimen) 08/30/2017 12:38 PM EST 08/30/2017 12:38 PM EST Arturo Waterman MD POINT OF CARE TEST O JORGE ALBERTO Performing Organization Address [facility] Co de Phone Number [facility] [place] [address] * POCT Glucose (08/29/2017 8:47 PM EST) Glucose, POC 173 65 - 199 mg/dL [facility] Comment: Supplemental ranges: <140 mg/dL before meals <180 mg/dL all other times of the day Blood specimen (specimen) 08/29/2017 8:47 PM EST 08/29/2017 8:47 PM EST Arturo Waterman MD POINT OF CARE TEST O RDERAFRANNIE Performing Organization Address City/[facility] Co de Phone Number [facility] [place] [address] * POCT Glucose (08/29/2017 3:31 PM EST) Glucose, POC 119 65 - 199 mg/dL [facility] Comment: Supplemental ranges: <140 mg/dL before meals <180 mg/dL all other times of the day Blood specimen (specimen) 08/29/2017 3:31 PM EST 08/29/2017 3:31 PM EST Arturo Waterman MD POINT OF CARE TEST O RDERABLES [facility] [place] [address] * POCT Glucose (08/29/2017 1:16 PM EST) Glucose, POC 98 65 - 199 mg/dL [facility] Comment: Supplemental ranges: <140 mg/dL before meals <180 mg/dL all other times of the day Blood specimen (specimen) 08/29/2017 1:16 PM EST 08/29/2017 1:16 PM EST Arturo Waterman MD POINT OF CARE TEST O BENJYERAFRANNIE Performing Organization Address [facility]/ZIP Co de Phone Number [facility] [place] [address] * POCT Glucose (08/29/2017 9:25 AM EST) Glucose, POC 108 65 - 199 mg/dL [facility] Comment: Supplemental ranges: <140 mg/dL before meals <180 mg/dL all other times of the day Blood specimen (specimen) 08/29/2017 9:25 AM EST 08/29/2017 9:25 AM EST Arturo Waterman MD POINT OF CARE TEST O RDERAFRANNIE Performing Organization Address City/[facility]/ZIP Co de Phone Number [facility] [place] [address] * POCT Glucose (08/28/2017 8:59 PM EST) Glucose, POC 122 65 - 199 mg/dL [facility] Comment: Supplemental ranges: <140 mg/dL before meals <180 mg/dL all other times of the day Blood specimen (specimen) 08/28/2017 8:59 PM EST 08/28/2017 8:59 PM EST Arturo Waterman MD POINT OF CARE TEST O JORGE ALBERTO Performing Organization Address City/[facility]/ZIP Co de Phone Number [facility] [place] [address] * POCT Glucose (08/28/2017 3:45 PM EST) Glucose, POC 138 65 - 199 mg/dL [facility] Comment: Supplemental ranges: <140 mg/dL before meals <180 mg/dL all other times of the day Blood specimen (specimen) 08/28/2017 3:45 PM EST 08/28/2017 3:45 PM EST Arturo Waterman MD POINT OF CARE TEST O JORGE ALBERTO Performing Organization Address [facility]/ZIP Co de Phone Number [facility] [place] [address] * POCT Glucose (08/28/2017 12:23 PM EST) Glucose, POC 94 65 - 199 mg/dL [facility] Comment: Supplemental ranges: <140 mg/dL before meals <180 mg/dL all other times of the day Blood specimen (specimen) 08/28/2017 12:23 PM EST 08/28/2017 12:23 PM EST Arturo Waterman MD POINT OF CARE TEST O JORGE ALBERTO Performing Organization Address City/[facility]/ZIP Co de Phone Number [facility] [place] [address] * POCT Glucose (08/27/2017 9:40 PM EST) Glucose, POC 134 65 - 199 mg/dL [facility] Comment: Supplemental ranges: <140 mg/dL before meals <180 mg/dL all other times of the day Blood specimen (specimen) 08/27/2017 9:40 PM EST 08/27/2017 9:40 PM EST Arturo Waterman MD POINT OF CARE TEST O JORGE ALBERTO Performing Organization Address [facility] Co de Phone Number [facility] [place] [address] * POCT Glucose (08/27/2017 3:08 PM EST) Glucose, POC 129 65 - 199 mg/dL [facility] Comment: Supplemental ranges: <140 mg/dL before meals <180 mg/dL all other times of the day Blood specimen (specimen) 08/27/2017 3:08 PM EST 08/27/2017 3:08 PM EST Arturo Waterman MD POINT OF CARE TEST O JORGE ALBERTO Performing Organization Address [facility] Co de Phone Number [facility] [place] [address] * POCT Glucose (08/27/2017 11:31 AM EST) Glucose, POC 91 65 - 199 mg/dL [facility] Comment: Supplemental ranges: <140 mg/dL before meals <180 mg/dL all other times of the day Blood specimen (specimen) 08/27/2017 11:31 AM EST 08/27/2017 11:31 AM EST Arturo Waterman MD POINT OF CARE TEST O JORGE ALBERTO Performing Organization Address [facility] Co de Phone Number [facility] [place] [address] * POCT Glucose (08/26/2017 8:00 PM EST) Glucose, POC 142 65 - 199 mg/dL [facility] Comment: Supplemental ranges: <140 mg/dL before meals <180 mg/dL all other times of the day Blood specimen (specimen) 08/26/2017 8:00 PM EST 08/26/2017 8:00 PM EST Arturo Waterman MD POINT OF CARE TEST O RDERABLES Performing Organization Address [facility] Co de Phone Number [facility] [place] [address] * POCT Glucose (08/26/2017 3:15 PM EST) Glucose, POC 105 65 - 199 mg/dL [facility] Comment: Supplemental ranges: <140 mg/dL before meals <180 mg/dL all other times of the day Blood specimen (specimen) 08/26/2017 3:15 PM EST 08/26/2017 3:15 PM EST rAturo Waterman MD POINT OF CARE TEST O JORGE ALBERTO Performing Organization Address [facility] Phone Number [facility] [place] [address] * POCT Glucose (08/26/2017 12:29 PM EST) Glucose, POC 88 65 - 199 mg/dL [facility] Comment: Supplemental ranges: <140 mg/dL before meals <180 mg/dL all other times of the day Blood specimen (specimen) 08/26/2017 12:29 PM EST 08/26/2017 12:29 PM EST Arturo Waterman MD POINT OF CARE TEST O RDERAFRANNIE Performing Organization Address [facility] de Phone Number [facility] [place] [address] * POCT urine dipstick (08/26/2017) POC Sp [place] 1.005 1.002 - 1.030 POC pH, UA [...] Glucose, POC 147 65 - 199 mg/dL [facility] Comment: Supplemental ranges: <140 mg/dL before meals <180 mg/dL all other times of the day Blood specimen (specimen) 08/25/2017 8:45 PM EST 08/25/2017 8:45 PM EST Arturo Waterman MD POINT OF CARE TEST O JORGE ALEBRTO Performing Organization Address [facility]/ZIP Co de Phone Number [facility] [place] [address] * POCT Glucose (08/25/2017 2:36 PM EST) Glucose, POC 133 65 - 199 mg/dL [facility] Comment: Supplemental ranges: <140 mg/dL before meals <180 mg/dL all other times of the day Blood specimen (specimen) 08/25/2017 2:36 PM EST 08/25/2017 2:36 PM EST Arturo Waterman MD POINT OF CARE TEST O JORGE ALBERTO Performing Organization Address City/[facility]/ZIP Co de Phone Number [facility] [place] [address] * POCT Glucose (08/25/2017 12:38 PM EST) Glucose, POC 91 65 - 199 mg/dL [facility] Comment: Supplemental ranges: <140 mg/dL before meals <180 mg/dL all other times of the day Blood specimen (specimen) 08/25/2017 12:38 PM EST 08/25/2017 12:38 PM EST Arturo Waterman MD POINT OF CARE TEST O RDERABLES Performing Organization Address [facility] Co de Phone Number [facility] [place] [address] * POCT Glucose (08/24/2017 8:25 PM EST) Glucose, POC 93 65 - 199 mg/dL [facility] Comment: Supplemental ranges: <140 mg/dL before meals <180 mg/dL all other times of the day Blood specimen (specimen) 08/24/2017 8:25 PM EST 08/24/2017 8:25 PM EST Arturo Waterman MD POINT OF CARE TEST O RDERABLES Performing Organization Address [facility] Co de Phone Number [facility] [place] [address] * POCT Glucose (08/24/2017 3:13 PM EST) Glucose, POC 144 65 - 199 mg/dL [facility] Comment: Supplemental ranges: <140 mg/dL before meals <180 mg/dL all other times of the day Blood specimen (specimen) 08/24/2017 3:13 PM EST 08/24/2017 3:13 PM EST Arturo Waterman MD POINT OF CARE TEST O RDERABLES Performing Organization Address [facility] Co de Phone Number [facility] [place] [address] * POCT Glucose (08/24/2017 9:58 AM EST) Glucose, POC 109 65 - 199 mg/dL [facility] Comment: Supplemental ranges: <140 mg/dL before meals <180 mg/dL all other times of the day Blood specimen (specimen) 08/24/2017 9:58 AM EST 08/24/2017 9:58 AM EST Arturo Waterman MD POINT OF CARE TEST O RDERABLES [facility] [place] [address] * POCT Glucose (08/23/2017 11:41 PM EST) Glucose, POC 102 65 - 199 mg/dL [facility] Comment: Supplemental ranges: <140 mg/dL before meals <180 mg/dL all other times of the day Blood specimen (specimen) 08/23/2017 11:41 PM EST 08/23/2017 11:41 PM EST Arturo Waterman MD POINT OF CARE TEST O RDERABLES Performing Organization Address [facility] Co de Phone Number [facility] [place] [address] * POCT Glucose (08/23/2017 3:33 PM EST) Glucose, POC 128 65 - 199 mg/dL [facility] Comment: Supplemental ranges: <140 mg/dL before meals <180 mg/dL all other times of the day Blood specimen (specimen) 08/23/2017 3:33 PM EST 08/23/2017 3:33 PM EST Arturo Waterman MD POINT OF CARE TEST O RDERABLES Performing Organization Address [facility] Co de Phone Number [facility] [place] [address] * POCT Glucose (08/23/2017 11:37 AM EST) Glucose, POC 124 65 - 199 mg/dL [facility] Comment: Supplemental ranges: <140 mg/dL before meals <180 mg/dL all other times of the day Blood specimen (specimen) 08/23/2017 11:37 AM EST 08/23/2017 11:37 AM EST Arturo Waterman MD POINT OF CARE TEST O RDERABLES Performing Organization Address City/[facility]/ZIP Co de Phone Number [facility] [place] [address] * POCT Glucose (08/23/2017 9:44 AM EST) Glucose, POC 107 65 - 199 mg/dL [facility] Comment: Supplemental ranges: <140 mg/dL before meals <180 mg/dL all other times of the day Blood specimen (specimen) 08/23/2017 9:44 AM EST 08/23/2017 9:44 AM EST Arturo Waterman MD POINT OF CARE TEST O RDERABLES [facility] [place] [address] * POCT Glucose (08/22/2017 8:18 PM EST) Glucose, POC 111 65 - 199 mg/dL [facility] Comment: Supplemental ranges: <140 mg/dL before meals <180 mg/dL all other times of the day Blood specimen (specimen) 08/22/2017 8:18 PM EST 08/22/2017 8:18 PM EST Arturo Waterman MD POINT OF CARE TEST O RDERABLES [facility] [place] [address] * POCT Glucose (08/22/2017 2:28 PM EST) Glucose, POC 158 65 - 199 mg/dL [facility] Comment: Supplemental ranges: <140 mg/dL before meals <180 mg/dL all other times of the day Blood specimen (specimen) 08/22/2017 2:28 PM EST 08/22/2017 2:28 PM EST Arturo Waterman MD POINT OF CARE TEST O RDERAFRANNIE [facility] [place] [address] * POCT Glucose (08/22/2017 12:39 PM EST) Glucose, POC 83 65 - 199 mg/dL [facility] Comment: Supplemental ranges: <140 mg/dL before meals <180 mg/dL all other times of the day Blood specimen (specimen) 08/22/2017 12:39 PM EST 08/22/2017 12:39 PM EST Arturo Waterman MD POINT OF CARE TEST O JORGE ALBERTO [facility] [place] [address] * POCT Glucose (08/21/2017 7:53 PM EST) Glucose, POC 105 65 - 199 mg/dL [facility] Comment: Supplemental ranges: <140 mg/dL before meals <180 mg/dL all other times of the day Blood specimen (specimen) 08/21/2017 7:53 PM EST 08/21/2017 7:53 PM EST Arturo Waterman MD POINT OF CARE TEST O JORGE ALBERTO Performing Organization Address City/[facility]/ZIP Co de Phone Number [facility] [place] [address] * POCT Glucose (08/21/2017 2:42 PM EST) Glucose, POC 130 65 - 199 mg/dL [facility] Comment: Supplemental ranges: <140 mg/dL before meals <180 mg/dL all other times of the day Blood specimen (specimen) 08/21/2017 2:42 PM EST 08/21/2017 2:42 PM EST Arturo Waterman MD POINT OF CARE TEST O JORGE ALBERTO [facility] [place] [address] * POCT Glucose (08/21/2017 9:07 AM EST) Glucose, POC 73 65 - 199 mg/dL [facility] Comment: Supplemental ranges: <140 mg/dL before meals <180 mg/dL all other times of the day Blood specimen (specimen) 08/21/2017 9:07 AM EST 08/21/2017 9:07 AM EST Arturo Waterman MD POINT OF CARE TEST O RDERAFRANNIE [facility] [place] [address] * POCT Glucose (08/20/2017 7:30 PM EST) Glucose, POC 162 65 - 199 mg/dL [facility] Comment: Supplemental ranges: <140 mg/dL before meals <180 mg/dL all other times of the day Blood specimen (specimen) 08/20/2017 7:30 PM EST 08/20/2017 7:30 PM EST Arturo Waterman MD POINT OF CARE TEST O JORGE ALBERTO Performing Organization Address City/[facility]/ZIP Co de Phone Number [facility] [place] [address] * POCT Glucose (08/20/2017 1:54 PM EST) Glucose, POC 187 65 - 199 mg/dL [facility] Comment: Supplemental ranges: <140 mg/dL before meals <180 mg/dL all other times of the day Blood specimen (specimen) 08/20/2017 1:54 PM EST 08/20/2017 1:54 PM EST Arturo Waterman MD POINT OF CARE TEST O RDERAFRANNIE Performing Organization Address City/[facility] Co de Phone Number [facility] [place] [address] * POCT Glucose (08/20/2017 9:04 AM EST) Glucose, POC 158 65 - 199 mg/dL [facility] Comment: Supplemental ranges: <140 mg/dL before meals <180 mg/dL all other times of the day Blood specimen (specimen) 08/20/2017 9:04 AM EST 08/20/2017 9:04 AM EST Arturo Waterman MD POINT OF CARE TEST O RDERABLES Performing Organization Address City/[facility]/ZIP Co de Phone Number [facility] [place] [address] * POCT Glucose (08/19/2017 8:24 PM EST) Glucose, POC 141 65 - 199 mg/dL [facility] Comment: Supplemental ranges: <140 mg/dL before meals <180 mg/dL all other times of the day Blood specimen (specimen) 08/19/2017 8:24 PM EST 08/19/2017 8:24 PM EST Arturo Waterman MD POINT OF CARE TEST O RDERAFRANNIE Performing Organization Address [facility]/ZIP Co de Phone Number [facility] [place] [address] * POCT Glucose (08/19/2017 4:01 PM EST) Glucose, POC 157 65 - 199 mg/dL [facility] Comment: Supplemental ranges: <140 mg/dL before meals <180 mg/dL all other times of the day Blood specimen (specimen) 08/19/2017 4:01 PM EST 08/19/2017 4:01 PM EST Arturo Waterman MD POINT OF CARE TEST O RDERABLES Performing Organization Address City/[facility]/ZIP Co de Phone Number [facility] [place] [address] * POCT Glucose (08/19/2017 9:55 AM EST) Glucose, POC 127 65 - 199 mg/dL [facility] Comment: Supplemental ranges: <140 mg/dL before meals <180 mg/dL all other times of the day Blood specimen (specimen) 08/19/2017 9:55 AM EST 08/19/2017 9:55 AM EST Arturo Waterman MD POINT OF CARE TEST O RDERAFRANNIE Performing Organization Address City/[facility] Co de Phone Number [facility] [place] [address] * POCT Glucose (08/18/2017 11:52 PM EST) Glucose, POC 179 65 - 199 mg/dL [facility] Comment: Supplemental ranges: <140 mg/dL before meals <180 mg/dL all other times of the day Blood specimen (specimen) 08/18/2017 11:52 PM EST 08/18/2017 11:52 PM EST Arturo Waterman MD POINT OF CARE TEST O BENJYERAFRANNIE Performing Organization Address [facility] Co de Phone Number [facility] [place] [address] * POCT Glucose (08/18/2017 7:38 PM EST) Glucose, POC 153 65 - 199 mg/dL [facility] Comment: Supplemental ranges: <140 mg/dL before meals <180 mg/dL all other times of the day Blood specimen (specimen) 08/18/2017 7:38 PM EST 08/18/2017 7:38 PM EST Arturo Waterman MD POINT OF CARE TEST O RDERAFRANNIE Performing Organization Address City/[facility] Co de Phone Number [facility] [place] [address] * POCT Glucose (08/18/2017 3:42 PM EST) Glucose, POC 93 65 - 199 mg/dL [facility] Comment: Supplemental ranges: <140 mg/dL before meals <180 mg/dL all other times of the day Blood specimen (specimen) 08/18/2017 3:42 PM EST 08/18/2017 3:42 PM EST Arturo Waterman MD POINT OF CARE TEST O JORGE ALBERTO Performing Organization Address [facility] Co de Phone Number [facility] [place] [address] * POCT Glucose (08/18/2017 8:43 AM EST) Glucose, POC 72 65 - 199 mg/dL [facility] Comment: Supplemental ranges: <140 mg/dL before meals <180 mg/dL all other times of the day Blood specimen (specimen) 08/18/2017 8:43 AM EST 08/18/2017 8:43 AM EST Arturo Waterman MD POINT OF CARE TEST Yee AZUL Performing Organization Address [facility] Co de Phone Number [facility] [place] [address] * POCT Glucose (08/17/2017 8:22 PM EST) Glucose, POC 104 65 - 199 mg/dL [facility] Comment: Supplemental ranges: <140 mg/dL before meals <180 mg/dL all other times of the day Blood specimen (specimen) 08/17/2017 8:22 PM EST 08/17/2017 8:22 PM EST Arturo Waterman MD POINT OF CARE TEST O JORGE ALBERTO Performing Organization Address City/[facility] Co de Phone Number [facility] [place] [address] * POCT Glucose (08/17/2017 1:37 PM EST) Glucose, POC 167 65 - 199 mg/dL [facility] Comment: Supplemental ranges: <140 mg/dL before meals <180 mg/dL all other times of the day Blood specimen (specimen) 08/17/2017 1:37 PM EST 08/17/2017 1:37 PM EST Arturo Waterman MD POINT OF CARE TEST O RDANG Performing Organization Address [facility] de Phone Number [facility] [place] [address] * POCT Glucose (08/17/2017 12:04 PM EST) Glucose, POC 81 65 - 199 mg/dL [facility] Comment: Supplemental ranges: <140 mg/dL before meals <180 mg/dL all other times of the day Blood specimen (specimen) 08/17/2017 12:04 PM EST 08/17/2017 12:04 PM EST Arturo Waterman MD POINT OF CARE TEST O JORGE ALBERTO Performing Organization Address [facility] Phone Number [facility] [place] [address] * POCT Glucose (08/16/2017 6:52 PM EST) Glucose, POC 128 65 - 199 mg/dL [facility] Comment: Supplemental ranges: <140 mg/dL before meals <180 mg/dL all other times of the day Blood specimen (specimen) 08/16/2017 6:52 PM EST 08/16/2017 6:52 PM EST Arturo Waterman MD POINT OF CARE TEST O RDERAFRANNIE Performing Organization Address [facility] de Phone Number [facility] [place] [address] * POCT Glucose (08/16/2017 12:08 PM EST) Glucose, POC 98 65 - 199 mg/dL [facility] Comment: Supplemental ranges: <140 mg/dL before meals <180 mg/dL all other times of the day Blood specimen (specimen) 08/16/2017 12:08 PM EST 08/16/2017 12:08 PM EST Arturo Waterman MD POINT OF CARE TEST O RDERABLES Performing Organization Address City/[facility]/ZIP Co de Phone Number [facility] [place] [address] * POCT Glucose (08/16/2017 10:15 AM EST) Glucose, POC 90 65 - 199 mg/dL [facility] Comment: Supplemental ranges: <140 mg/dL before meals <180 mg/dL all other times of the day Blood specimen (specimen) 08/16/2017 10:15 AM EST 08/16/2017 10:15 AM EST Arturo Waterman MD POINT OF CARE TEST O RDERAFRANNIE Performing Organization Address [facility] Co de Phone Number [facility] [place] [address] * POCT Glucose (08/15/2017 8:24 PM EST) Glucose, POC 121 65 - 199 mg/dL [facility] Comment: Supplemental ranges: <140 mg/dL before meals <180 mg/dL all other times of the day Blood specimen (specimen) 08/15/2017 8:24 PM EST 08/15/2017 8:24 PM EST Arturo Waterman MD POINT OF CARE TEST O RDERAFRANNIE Performing Organization Address [facility] Co de Phone Number [facility] [place] [address] * POCT Glucose (08/15/2017 3:44 PM EST) Glucose, POC 129 65 - 199 mg/dL [facility] Comment: Supplemental ranges: <140 mg/dL before meals <180 mg/dL all other times of the day Blood specimen (specimen) 08/15/2017 3:44 PM EST 08/15/2017 3:44 PM EST Arturo Waterman MD POINT OF CARE TEST O RDERABLES Performing Organization Address [facility] Co de Phone Number [facility] [place] [address] * POCT Glucose (08/15/2017 12:19 PM EST) Glucose, POC 91 65 - 199 mg/dL [facility] Comment: Supplemental ranges: <140 mg/dL before meals <180 mg/dL all other times of the day Blood specimen (specimen) 08/15/2017 12:19 PM EST 08/15/2017 12:19 PM EST Arturo Waterman MD POINT OF CARE TEST O RDERABLES Performing Organization Address [facility] Co de Phone Number [facility] [place] [address] * POCT Glucose (08/14/2017 8:37 PM EST) Glucose, POC 133 65 - 199 mg/dL [facility] Comment: Supplemental ranges: <140 mg/dL before meals <180 mg/dL all other times of the day Blood specimen (specimen) 08/14/2017 8:37 PM EST 08/14/2017 8:37 PM EST Arturo Waterman MD POINT OF CARE TEST O RDERABLES Performing Organization Address [facility] Co de Phone Number [facility] [place] [address] * POCT Glucose (08/14/2017 11:47 AM EST) Glucose, POC 76 65 - 199 mg/dL [facility] Comment: Supplemental ranges: <140 mg/dL before meals <180 mg/dL all other times of the day Blood specimen (specimen) 08/14/2017 11:47 AM EST 08/14/2017 11:47 AM EST Arturo Waterman MD POINT OF CARE TEST O RDERAFRANNIE Performing Organization Address City/[facility]/ZIP Co de Phone Number [facility] [place] [address] * POCT Glucose (08/13/2017 8:05 PM EST) Glucose, POC 121 65 - 199 mg/dL [facility] Comment: Supplemental ranges: <140 mg/dL before meals <180 mg/dL all other times of the day Blood specimen (specimen) 08/13/2017 8:05 PM EST 08/13/2017 8:05 PM EST Arturo Waterman MD POINT OF CARE TEST O RDERAFRANNIE [facility] [place] [address] * POCT Glucose (08/13/2017 2:37 PM EST) Glucose, POC 144 65 - 199 mg/dL [facility] Comment: Supplemental ranges: <140 mg/dL before meals <180 mg/dL all other times of the day Blood specimen (specimen) 08/13/2017 2:37 PM EST 08/13/2017 2:37 PM EST Arturo Waterman MD POINT OF CARE TEST O RDERAFRANNIE [facility] [place] [address] * POCT Glucose (08/13/2017 12:52 PM EST) Glucose, POC 76 65 - 199 mg/dL [facility] Comment: Supplemental ranges: <140 mg/dL before meals <180 mg/dL all other times of the day Blood specimen (specimen) 08/13/2017 12:52 PM EST 08/13/2017 12:52 PM EST Arturo Waterman MD POINT OF CARE TEST O RDERABLES [facility] [place] [address] * POCT Glucose (08/12/2017 8:33 PM EST) Glucose, POC 129 65 - 199 mg/dL [facility] Comment: Supplemental ranges: <140 mg/dL before meals <180 mg/dL all other times of the day Blood specimen (specimen) 08/12/2017 8:33 PM EST 08/12/2017 8:33 PM EST Artuor Waterman MD POINT OF CARE TEST O RDERAFRANNIE [facility] [place] [address] * POCT Glucose (08/12/2017 2:03 PM EST) Glucose, POC 119 65 - 199 mg/dL [facility] Comment: Supplemental ranges: <140 mg/dL before meals <180 mg/dL all other times of the day Blood specimen (specimen) 08/12/2017 2:03 PM EST 08/12/2017 2:03 PM EST Arturo Waterman MD POINT OF CARE TEST O RDERAFRANNIE [facility] [place] [address] * POCT Glucose (08/12/2017 11:43 AM EST) Glucose, POC 98 65 - 199 mg/dL [facility] Comment: Supplemental ranges: <140 mg/dL before meals <180 mg/dL all other times of the day Blood specimen (specimen) 08/12/2017 11:43 AM EST 08/12/2017 11:43 AM EST Arturo Waterman MD POINT OF CARE TEST O RDERAFRANNIE [facility] [place] [address] * POCT Glucose (08/11/2017 7:58 PM EST) Glucose, POC 120 65 - 199 mg/dL [facility] Comment: Supplemental ranges: <140 mg/dL before meals <180 mg/dL all other times of the day Blood specimen (specimen) 08/11/2017 7:58 PM EST 08/11/2017 7:58 PM EST Arturo Waterman MD POINT OF CARE TEST O RDERAFRANNIE Performing Organization Address City/[facility]/ZIP Co de Phone Number [facility] [place] [address] * POCT Glucose (08/11/2017 11:20 AM EST) Glucose, POC 95 65 - 199 mg/dL [facility] Comment: Supplemental ranges: <140 mg/dL before meals <180 mg/dL all other times of the day Blood specimen (specimen) 08/11/2017 11:20 AM EST 08/11/2017 11:20 AM EST Arturo Waterman MD POINT OF CARE TEST O RDERAFRANNIE Performing Organization Address [facility] Co de Phone Number [facility] [place] [address] * POCT Glucose (08/11/2017 10:08 AM EST) Glucose, POC 102 65 - 199 mg/dL [facility] Comment: Supplemental ranges: <140 mg/dL before meals <180 mg/dL all other times of the day Blood specimen (specimen) 08/11/2017 10:08 AM EST 08/11/2017 10:08 AM EST Arturo Waterman MD POINT OF CARE TEST O RDERAFRANNIE Performing Organization Address City/[facility] Co de Phone Number [facility] [place] [address] * US OB Follow Up Evaluation (08/11/2017 [...] 10:10 am) PATIENT INFO: ID #: ? [id number] ?: ??[birth year] (27 yrs) Name: ? PAM Lopez ?Visit Date: 08/11/2017 09:26 am ? JAYA PERFORMED BY: Performed By: ? Dhara Hicks RDMS Attending: ?Emanuel Barrett MD Referred By: ?EMANUEL BARRETT Location: ? [place] SERVICE(S) PROVIDED: ??UOBFOL - Efw - Growth - [place] - [id number] ? [id number] ??UOBTV - Viability - Cervical Length -Transvaginal - ?? [id number] ??[id number] INDICATIONS: ??29 weeks gestation of ?Z3A.29 ??26 [...] 08/11/2017 10:10 am) PATIENT INFO: ID #: [id number] : [birth year] (27 yrs) Name: PAM Lopez Visit Date: 08/11/2017 09:26 am [place] PERFORMED BY: Performed By: Dhara Hicks RDMS Attending: Emanuel Barrett MD Referred By: EMANUEL BARRETT Location: [place] SERVICE(S) PROVIDED: UOBFOL - Efw - Growth - [place] - [id number] UOBTV - Viability - Cervical Length -Transvaginal - [id number] INDICATIONS: 29 weeks gestation of Z3A.29 26 [...] Glucose, POC 141 65 - 199 mg/dL [facility] Comment: Supplemental ranges: <140 mg/dL before meals <180 mg/dL all other times of the day Blood specimen (specimen) 08/10/2017 6:41 PM EST 08/10/2017 6:41 PM EST Arturo Waterman MD POINT OF CARE TEST O RDERABLES [facility] [place] [address] * POCT Glucose (08/10/2017 1:11 PM EST) Glucose, POC 150 65 - 199 mg/dL [facility] Comment: Supplemental ranges: <140 mg/dL before meals <180 mg/dL all other times of the day Blood specimen (specimen) 08/10/2017 1:11 PM EST 08/10/2017 1:11 PM EST Arturo Waterman MD POINT OF CARE TEST O RDERAFRANNIE Performing Organization Address City/[facility] Co de Phone Number [facility] [place] [address] * POCT Glucose (08/10/2017 11:40 AM EST) Glucose, POC 95 65 - 199 mg/dL [facility] Comment: Supplemental ranges: <140 mg/dL before meals <180 mg/dL all other times of the day Blood specimen (specimen) 08/10/2017 11:40 AM EST 08/10/2017 11:40 AM EST Arturo Waterman MD POINT OF CARE TEST O JORGE ALBERTO Performing Organization Address [facility] Co de Phone Number [facility] [place] [address] * POCT Glucose (08/09/2017 6:58 PM EST) Glucose, POC 139 65 - 199 mg/dL [facility] Comment: Supplemental ranges: <140 mg/dL before meals <180 mg/dL all other times of the day Blood specimen (specimen) 08/09/2017 6:58 PM EST 08/09/2017 6:58 PM EST Arturo Waterman MD POINT OF CARE TEST O RDERAFRANNIE Performing Organization Address City/[facility] Co de Phone Number [facility] [place] [address] * POCT Glucose (08/09/2017 10:58 AM EST) Glucose, POC 97 65 - 199 mg/dL [facility] Comment: Supplemental ranges: <140 mg/dL before meals <180 mg/dL all other times of the day Blood specimen (specimen) 08/09/2017 10:58 AM EST 08/09/2017 10:58 AM EST Arturo Waterman MD POINT OF CARE TEST O RDERABLES Performing Organization Address City/[facility]/ZIP Co de Phone Number [facility] [place] [address] * POCT Glucose (08/08/2017 9:51 PM EST) Glucose, POC 140 65 - 199 mg/dL [facility] Comment: Supplemental ranges: <140 mg/dL before meals <180 mg/dL all other times of the day Blood specimen (specimen) 08/08/2017 9:51 PM EST 08/08/2017 9:51 PM EST Arturo Waterman MD POINT OF CARE TEST O RDERAFRANNIE Performing Organization Address [facility]/ZIP Co de Phone Number [facility] [place] [address] * POCT Glucose (08/08/2017 2:09 PM EST) Glucose, POC 138 65 - 199 mg/dL [facility] Comment: Supplemental ranges: <140 mg/dL before meals <180 mg/dL all other times of the day Blood specimen (specimen) 08/08/2017 2:09 PM EST 08/08/2017 2:09 PM EST Arturo Waterman MD POINT OF CARE TEST O RDERAFRANNIE Performing Organization Address City/[facility]/ZIP Co de Phone Number [facility] [place] [address] * POCT Glucose (08/08/2017 11:56 AM EST) Glucose, POC 85 65 - 199 mg/dL [facility] Comment: Supplemental ranges: <140 mg/dL before meals <180 mg/dL all other times of the day Blood specimen (specimen) 08/08/2017 11:56 AM EST 08/08/2017 11:56 AM EST Arturo Waterman MD POINT OF CARE TEST O JORGE ALBERTO Performing Organization Address City/[facility]/ZIP Co de Phone Number [facility] [place] [address] * POCT Glucose (08/07/2017 9:41 PM EST) Glucose, POC 113 65 - 199 mg/dL [facility] [facility] Comment: Supplemental ranges: <140 mg/dL before meals <180 mg/dL all other times of the day Blood specimen (specimen) 08/07/2017 9:41 PM EST 08/07/2017 9:41 PM EST Arturo Waterman MD POINT OF CARE TEST O JORGE ALBERTO Performing Organization Address [facility]/ZIP Co de Phone Number [facility] [place] [address] * POCT Glucose (08/07/2017 3:04 PM EST) Glucose, POC 152 65 - 199 mg/dL [facility] Comment: Supplemental ranges: <140 mg/dL before meals <180 mg/dL all other times of the day Blood specimen (specimen) 08/07/2017 3:04 PM EST 08/07/2017 3:04 PM EST Arturo Waterman MD POINT OF CARE TEST O BENJYERAFRANNIE Performing Organization Address City/[facility]/ZIP Co de Phone Number [facility] [place] [address] * POCT Glucose (08/07/2017 10:04 AM EST) Glucose, POC 87 65 - 199 mg/dL [facility] Comment: Supplemental ranges: <140 mg/dL before meals <180 mg/dL all other times of the day Blood specimen (specimen) 08/07/2017 10:04 AM EST 08/07/2017 10:04 AM EST Arturo Waterman MD POINT OF CARE TEST O JORGE ALBERTO Performing Organization Address [facility] Co de Phone Number [facility] [place] [address] * POCT Glucose (08/06/2017 8:30 PM EST) Glucose, POC 118 65 - 199 mg/dL [facility] Comment: Supplemental ranges: <140 mg/dL before meals <180 mg/dL all other times of the day Blood specimen (specimen) 08/06/2017 8:30 PM EST 08/06/2017 8:30 PM EST Arturo Waterman MD POINT OF CARE TEST O JORGE ALBERTO Performing Organization Address [facility] Co de Phone Number [facility] [place] [address] * POCT Glucose (08/06/2017 3:20 PM EST) Glucose, POC 146 65 - 199 mg/dL [facility] Comment: Supplemental ranges: <140 mg/dL before meals <180 mg/dL all other times of the day Blood specimen (specimen) 08/06/2017 3:20 PM EST 08/06/2017 3:20 PM EST Arturo Watreman MD POINT OF CARE TEST O JORGE ALBERTO Performing Organization Address [facility] Co de Phone Number [facility] [place] [address] * POCT Glucose (08/06/2017 11:50 AM EST) Glucose, POC 136 65 - 199 mg/dL [facility] Comment: Supplemental ranges: <140 mg/dL before meals <180 mg/dL all other times of the day Blood specimen (specimen) 08/06/2017 11:50 AM EST 08/06/2017 11:50 AM EST Arturo Waterman MD POINT OF CARE TEST O RDERAFRANNIE Performing Organization Address [facility] Co de Phone Number [facility] [place] [address] * POCT Glucose (08/06/2017 9:55 AM EST) Glucose, POC 89 65 - 199 mg/dL [facility] Comment: Supplemental ranges: <140 mg/dL before meals <180 mg/dL all other times of the day Blood specimen (specimen) 08/06/2017 9:55 AM EST 08/06/2017 9:55 AM EST Arturo Waterman MD POINT OF CARE TEST O BENJYERAFRANNIE Performing Organization Address [facility] de Phone Number [facility] [place] [address] * POCT Glucose (08/05/2017 7:59 PM EST) Glucose, POC 102 65 - 199 mg/dL [facility] Comment: Supplemental ranges: <140 mg/dL before meals <180 mg/dL all other times of the day Blood specimen (specimen) 08/05/2017 7:59 PM EST 08/05/2017 7:59 PM EST Arturo Waterman MD POINT OF CARE TEST O RDERAFRANNIE Performing Organization Address [facility] Co de Phone Number [facility] [place] [address] * POCT Glucose (08/05/2017 11:33 AM EST) Glucose, POC 140 65 - 199 mg/dL [facility] Comment: Supplemental ranges: <140 mg/dL before meals <180 mg/dL all other times of the day Blood specimen (specimen) 08/05/2017 11:33 AM EST 08/05/2017 11:33 AM EST Arturo Waterman MD POINT OF CARE TEST O RDERABLES Performing Organization Address [facility] Co de Phone Number [facility] [place] [address] * POCT Glucose (08/05/2017 7:36 AM EST) Glucose, POC 83 65 - 199 mg/dL [facility] Comment: Supplemental ranges: <140 mg/dL before meals <180 mg/dL all other times of the day Blood specimen (specimen) 08/05/2017 7:36 AM EST 08/05/2017 7:36 AM EST Arturo Waterman MD POINT OF CARE TEST O RDERAFRANNIE Performing Organization Address [facility] Co de Phone Number [facility] [place] [address] * POCT Glucose (08/04/2017 8:27 PM EST) Glucose, POC 116 65 - 199 mg/dL [facility] Comment: Supplemental ranges: <140 mg/dL before meals <180 mg/dL all other times of the day Blood specimen (specimen) 08/04/2017 8:27 PM EST 08/04/2017 8:27 PM EST Arturo Waterman MD POINT OF CARE TEST O RDERAFRANNIE Performing Organization Address [facility] Co de Phone Number [facility] [place] [address] * POCT Glucose (08/04/2017 7:25 PM EST) Glucose, POC 169 65 - 199 mg/dL [facility] Comment: Supplemental ranges: <140 mg/dL before meals <180 mg/dL all other times of the day Blood specimen (specimen) 08/04/2017 7:25 PM EST 08/04/2017 7:25 PM EST Arturo Waterman MD POINT OF CARE TEST O RDERABLES Performing Organization Address [facility]/State/[facility] Co de Phone Number [facility] [place] [address] * POCT Glucose (08/04/2017 3:04 PM EST) Glucose, POC 122 65 - 199 mg/dL [facility] Comment: Supplemental ranges: <140 mg/dL before meals <180 mg/dL all other times of the day Blood specimen (specimen) 08/04/2017 3:04 PM EST 08/04/2017 3:04 PM EST Arturo Waterman MD POINT OF CARE TEST O RDERABLES Performing Organization Address [facility] Co de Phone Number [facility] [place] [address] * POCT Glucose (08/04/2017 10:59 AM EST) Glucose, POC 106 65 - 199 mg/dL [facility] Comment: Supplemental ranges: <140 mg/dL before meals <180 mg/dL all other times of the day Blood specimen (specimen) 08/04/2017 10:59 AM EST 08/04/2017 10:59 AM EST Arturo Waterman MD POINT OF CARE TEST O RDERABLES Performing Organization Address [facility] Co de Phone Number [facility] [place] [address] * POCT Glucose (08/04/2017 9:06 AM EST) Glucose, POC 85 65 - 199 mg/dL [facility] Comment: Supplemental ranges: <140 mg/dL before meals <180 mg/dL all other times of the day Blood specimen (specimen) 08/04/2017 9:06 AM EST 08/04/2017 9:06 AM EST Arturo Waterman MD POINT OF CARE TEST O RDERABLES Performing Organization Address City/[facility]/ZIP Co de Phone Number [facility] [place] [address] * POCT Glucose (08/03/2017 7:24 PM EST) Glucose, POC 118 65 - 199 mg/dL [facility] Comment: Supplemental ranges: <140 mg/dL before meals <180 mg/dL all other times of the day Blood specimen (specimen) 08/03/2017 7:24 PM EST 08/03/2017 7:24 PM EST Arturo Waterman MD POINT OF CARE TEST O RDERABLES [facility] [place] [address] * POCT Glucose (08/03/2017 11:22 AM EST) Glucose, POC 106 65 - 199 mg/dL [facility] Comment: Supplemental ranges: <140 mg/dL before meals <180 mg/dL all other times of the day Blood specimen (specimen) 08/03/2017 11:22 AM EST 08/03/2017 11:22 AM EST Li Sepulveda MD POINT OF CARE TEST O RDERABLES [facility] [place] [address] * POCT Glucose (08/03/2017 8:52 AM EST) Glucose, POC 86 65 - 199 mg/dL [facility] Comment: Supplemental ranges: <140 mg/dL before meals <180 mg/dL all other times of the day Blood specimen (specimen) 08/03/2017 8:52 AM EST 08/03/2017 8:52 AM EST Li Sepulveda MD POINT OF CARE TEST O RDERABLES [facility] [place] [address] * POCT Glucose (08/02/2017 6:59 PM EST) Glucose, POC 141 65 - 199 mg/dL [facility] Comment: Supplemental ranges: <140 mg/dL before meals <180 mg/dL all other times of the day Blood specimen (specimen) 08/02/2017 6:59 PM EST 08/02/2017 6:59 PM EST Li Sepulveda MD POINT OF CARE TEST O JORGE ALBERTO [facility] [place] [address] * POCT Glucose (08/02/2017 3:42 PM EST) Glucose, POC 138 65 - 199 mg/dL [facility] Comment: Supplemental ranges: <140 mg/dL before meals <180 mg/dL all other times of the day Blood specimen (specimen) 08/02/2017 3:42 PM EST 08/02/2017 3:42 PM EST Li Sepulveda MD POINT OF CARE TEST O JORGE ALBERTO Performing Organization Address City/[facility]/ZIP Co de Phone Number [facility] [place] [address] * POCT Glucose (08/02/2017 11:58 AM EST) Glucose, POC 128 65 - 199 mg/dL [facility] Comment: Supplemental ranges: <140 mg/dL before meals <180 mg/dL all other times of the day Blood specimen (specimen) 08/02/2017 11:58 AM EST 08/02/2017 11:58 AM EST Li Sepulveda MD POINT OF CARE TEST O JORGE ALBERTO [facility] [place] [address] * POCT Glucose (08/02/2017 8:01 AM EST) Glucose, POC 81 65 - 199 mg/dL [facility] Comment: Supplemental ranges: <140 mg/dL before meals <180 mg/dL all other times of the day Blood specimen (specimen) 08/02/2017 8:01 AM EST 08/02/2017 8:01 AM EST Li Sepulveda MD POINT OF CARE TEST O JORGE ALBERTO Performing Organization Address City/[facility]/ZIP Co de Phone Number [facility] [place] [address] * POCT Glucose (08/01/2017 7:58 PM EST) Glucose, POC 102 65 - 199 mg/dL [facility] Comment: Supplemental ranges: <140 mg/dL before meals <180 mg/dL all other times of the day Blood specimen (specimen) 08/01/2017 7:58 PM EST 08/01/2017 7:58 PM EST Li Sepulveda MD POINT OF CARE TEST O JORGE ALBERTO Performing Organization Address [facility] Co de Phone Number [facility] [place] [address] * POCT Glucose (08/01/2017 3:29 PM EST) Glucose, POC 124 65 - 199 mg/dL [facility] Comment: Supplemental ranges: <140 mg/dL before meals <180 mg/dL all other times of the day Blood specimen (specimen) 08/01/2017 3:29 PM EST 08/01/2017 3:29 PM EST Li Sepulveda MD POINT OF CARE TEST O JORGE ALBERTO Performing Organization Address City/[facility] Co de Phone Number [facility] [place] [address] * POCT Glucose (08/01/2017 10:57 AM EST) Glucose, POC 104 65 - 199 mg/dL [facility] Comment: Supplemental ranges: <140 mg/dL before meals <180 mg/dL all other times of the day Blood specimen (specimen) 08/01/2017 10:57 AM EST 08/01/2017 10:57 AM EST Li Sepulveda MD POINT OF CARE TEST O RDERAFRANNIE Performing Organization Address City/[facility] Co de Phone Number [facility] [place] [address] * POCT Glucose (08/01/2017 6:08 AM EST) Glucose, POC 114 65 - 199 mg/dL [facility] Comment: Supplemental ranges: <140 mg/dL before meals <180 mg/dL all other times of the day Blood specimen (specimen) 08/01/2017 6:08 AM EST 08/01/2017 6:08 AM EST Li Sepulveda MD POINT OF CARE TEST O JORGE ALBERTO Performing Organization Address [facility] Co de Phone Number [facility] [place] [address] * POCT Glucose (07/31/2017 7:38 PM EST) Glucose, POC 129 65 - 199 mg/dL [facility] Comment: Supplemental ranges: <140 mg/dL before meals <180 mg/dL all other times of the day Blood specimen (specimen) 07/31/2017 7:38 PM EST 07/31/2017 7:38 PM EST Li Sepulveda MD POINT OF CARE TEST O RDERAFRANNIE Performing Organization Address [facility] Co de Phone Number [facility] [place] [address] * POCT Glucose (07/31/2017 4:34 PM EST) Glucose, POC 152 65 - 199 mg/dL [facility] Comment: Supplemental ranges: <140 mg/dL before meals <180 mg/dL all other times of the day Blood specimen (specimen) 07/31/2017 4:34 PM EST 07/31/2017 4:34 PM EST Li Sepulveda MD POINT OF CARE TEST O JORGE ALBERTO Performing Organization Address [facility] Co de Phone Number [facility] [place] [address] * POCT Glucose (07/31/2017 2:10 PM EST) Glucose, POC 89 65 - 199 mg/dL [facility] Comment: Supplemental ranges: <140 mg/dL before meals <180 mg/dL all other times of the day Blood specimen (specimen) 07/31/2017 2:10 PM EST 07/31/2017 2:10 PM EST Li Sepulveda MD POINT OF CARE TEST O JORGE ALBERTO Performing Organization Address [facility] Co de Phone Number [facility] [place] [address] * POCT Glucose (07/31/2017 11:09 AM EST) Glucose, POC 152 65 - 199 mg/dL [facility] Comment: Supplemental ranges: <140 mg/dL before meals <180 mg/dL all other times of the day Blood specimen (specimen) 07/31/2017 11:09 AM EST 07/31/2017 11:09 AM EST Li Sepulveda MD POINT OF CARE TEST O JORGE ALBERTO Performing Organization Address [facility] Co de Phone Number [facility] [place] [address] * POCT Glucose (07/31/2017 6:15 AM EST) Glucose, POC 95 65 - 199 mg/dL [facility] Comment: Supplemental ranges: <140 mg/dL before meals <180 mg/dL all other times of the day Blood specimen (specimen) 07/31/2017 6:15 AM EST 07/31/2017 6:15 AM EST Li Sepulveda MD POINT OF CARE TEST O JORGE ALBERTO Performing Organization Address [facility] de Phone Number [facility] [place] [address] * POCT Glucose (07/31/2017 2:19 AM EST) Glucose, POC 127 65 - 199 mg/dL [facility] Comment: Supplemental ranges: <140 mg/dL before meals <180 mg/dL all other times of the day Blood specimen (specimen) 07/31/2017 2:19 AM EST 07/31/2017 2:19 AM EST Li Sepulveda MD POINT OF CARE TEST O JORGE ALBERTO Performing Organization Address [facility] de Phone Number [facility] [place] [address] * POCT Glucose (07/30/2017 10:11 PM EST) Glucose, POC 112 65 - 199 mg/dL [facility] Comment: Supplemental ranges: <140 mg/dL before meals <180 mg/dL all other times of the day Blood specimen (specimen) 07/30/2017 10:11 PM EST 07/30/2017 10:11 PM EST Li Sepulveda MD POINT OF CARE TEST O JORGE ALBERTO Performing Organization Address [facility] de Phone Number [facility] [place] [address] * POCT Glucose (07/30/2017 5:26 PM EST) Glucose, POC 128 65 - 199 mg/dL [facility] Comment: Supplemental ranges: <140 mg/dL before meals <180 mg/dL all other times of the day Blood specimen (specimen) 07/30/2017 5:26 PM EST 07/30/2017 5:26 PM EST Li Sepulveda MD POINT OF CARE TEST O RDERAFRANNIE Performing Organization Address [facility] Phone Number [facility] [place] [address] * POCT Glucose (07/30/2017 1:18 PM EST) Glucose, POC 152 65 - 199 mg/dL [facility] Comment: Supplemental ranges: <140 mg/dL before meals <180 mg/dL all other times of the day Blood specimen (specimen) 07/30/2017 1:18 PM EST 07/30/2017 1:18 PM EST Li Sepulveda MD POINT OF CARE TEST O JORGE ALBERTO Performing Organization Address [facility] Phone Number [facility] [place] [address] * POCT Glucose (07/30/2017 9:39 AM EST) Glucose, POC 134 65 - 199 mg/dL [facility] Comment: Supplemental ranges: <140 mg/dL before meals <180 mg/dL all other times of the day Blood specimen (specimen) 07/30/2017 9:39 AM EST 07/30/2017 9:39 AM EST Li Sepulveda MD POINT OF CARE TEST O JORGE ALBERTO Performing Organization Address [facility] Phone Number [facility] [place] [address] * POCT Glucose (07/30/2017 5:14 AM EST) Glucose, POC 125 65 - 199 mg/dL [facility] Comment: Supplemental ranges: <140 mg/dL before meals <180 mg/dL all other times of the day Blood specimen (specimen) 07/30/2017 5:14 AM EST 07/30/2017 5:14 AM EST Li Sepulveda MD POINT OF CARE TEST O RDERABLES Performing Organization Address [facility] Co de Phone Number [facility] [place] [address] * POCT Glucose (07/30/2017 1:13 AM EST) Glucose, POC 153 65 - 199 mg/dL [facility] Comment: Supplemental ranges: <140 mg/dL before meals <180 mg/dL all other times of the day Blood specimen (specimen) 07/30/2017 1:13 AM EST 07/30/2017 1:13 AM EST Li Sepulveda MD POINT OF CARE TEST O RDERABLES Performing Organization Address [facility] de Phone Number [facility] [place] [address] * POCT Glucose (07/29/2017 9:06 PM EST) Glucose, POC 136 65 - 199 mg/dL [facility] Comment: Supplemental ranges: <140 mg/dL before meals <180 mg/dL all other times of the day Blood specimen (specimen) 07/29/2017 9:06 PM EST 07/29/2017 9:06 PM EST Li Sepulveda MD POINT OF CARE TEST O RDERABLES Performing Organization Address [facility] de Phone Number [facility] [place] [address] * POCT Glucose (07/29/2017 6:06 PM EST) Glucose, POC 137 65 - 199 mg/dL [facility] Comment: Supplemental ranges: <140 mg/dL before meals <180 mg/dL all other times of the day Blood specimen (specimen) 07/29/2017 6:06 PM EST 07/29/2017 6:06 PM EST Li Sepulveda MD POINT OF CARE TEST O RDERAFRANNIE Performing Organization Address [facility] Co de Phone Number [facility] [place] [address] * POCT Glucose (07/29/2017 1:53 PM EST) Glucose, POC 130 65 - 199 mg/dL [facility] Comment: Supplemental ranges: <140 mg/dL before meals <180 mg/dL all other times of the day Blood specimen (specimen) 07/29/2017 1:53 PM EST 07/29/2017 1:53 PM EST Li Sepulveda MD POINT OF CARE TEST O RDERABLES [facility] [place] [address] * POCT Glucose (07/29/2017 9:37 AM EST) Glucose, POC 149 65 - 199 mg/dL [facility] Comment: Supplemental ranges: <140 mg/dL before meals <180 mg/dL all other times of the day Blood specimen (specimen) 07/29/2017 9:37 AM EST 07/29/2017 9:37 AM EST Li Sepulveda MD POINT OF CARE TEST O RDERAFRANNIE Performing Organization Address City/[facility]/ZIP Co de Phone Number [facility] [place] [address] * POCT Glucose (07/29/2017 5:16 AM EST) Glucose, POC 130 65 - 199 mg/dL [facility] Comment: Supplemental ranges: <140 mg/dL before meals <180 mg/dL all other times of the day Blood specimen (specimen) 07/29/2017 5:16 AM EST 07/29/2017 5:16 AM EST Li Sepulveda MD POINT OF CARE TEST O RDERAFRANNIE [facility] [place] [address] * POCT Glucose (07/29/2017 1:10 AM EST) Glucose, POC 135 65 - 199 mg/dL [facility] Comment: Supplemental ranges: <140 mg/dL before meals <180 mg/dL all other times of the day Blood specimen (specimen) 07/29/2017 1:10 AM EST 07/29/2017 1:10 AM EST Li Sepulveda MD POINT OF CARE TEST O RDERABLES Performing Organization Address [facility] Co de Phone Number [facility] [place] [address] * POCT Glucose (07/28/2017 9:05 PM EST) Glucose, POC 127 65 - 199 mg/dL [facility] Comment: Supplemental ranges: <140 mg/dL before meals <180 mg/dL all other times of the day Blood specimen (specimen) 07/28/2017 9:05 PM EST 07/28/2017 9:05 PM EST Li Sepulveda MD POINT OF CARE TEST O RDERABLES Performing Organization Address [facility] Co de Phone Number [facility] [place] [address] * Group B Streptococcus Screen (07/28/2017 6:55 PM EST) GBS Screen Neg [facility] Pooled specimen from vaginal introitus and rectal swab (specimen) 07/28/2017 6:55 PM EST 07/28/2017 7:41 PM EST Comment:Penicillin Allergy?- >No Narrative Resulting Agency Comment Spec In Lab Li Sepulveda MD MICROBIOLOGY - GENER AL ORDERABLES Performing Organization Address [facility] Co de Phone Number [facility] [place] [address] * Antibody screen manual (07/28/2017 6:55 PM EST) AB Screen Interp Negative [facility] Blood specimen (specimen) Venous Draw / Unknown 07/28/2017 6:55 PM EST 07/28/2017 7:55 PM EST Narrative Resulting Agency Comment Spec In Lab Emerita Rosario MD BLOOD BANK LAB ORDER KURT Performing Organization Address City/[facility]/ZIP Co de Phone Number [facility] [place] [address] * Ab Comment (07/28/2017 6:55 PM EST) Ab Information INTERPRETATION : The patient's serum has a casey-agglutinin that reacts only with solid-phase antigens. ??No casey-agglutinin is detected when red cells in solution are used in the assay. ??The casey-agglutinin detected is not clinically significant. Kanika Williamson i, MD, PhD Transfusion Medicine Service 08/06/17 17:28 [facility] Comment: KANIKA LIM, Pathologist Verified:08/06/17 Blood specimen (specimen) 07/28/2017 6:55 PM EST 07/28/2017 7:58 PM EST Narrative Resulting Agency Comment Spec In Lab Emerita Rosario MD BLOOD BANK LAB ORDER KURT Performing Organization Address City/[facility]/ZIP Co de Phone Number [facility] [place] [address] * Antibody identification (07/28/2017 6:55 PM EST) Ab Identified Panagglutinin MA [facility] Blood specimen (specimen) 07/28/2017 6:55 PM EST 07/28/2017 7:58 PM EST Narrative Resulting Agency Comment Spec In Lab Li Sepulveda MD BLOOD BANK LAB ORDER KURT [facility] [place] [address] * ABORH Recheck Status (07/28/2017 6:55 PM EST) ABORH Recheck Order Order Placed [facility] ABORH Type Recheck Complete [facility] Blood specimen (specimen) 07/28/2017 6:55 PM EST 07/28/2017 7:58 PM EST Narrative Resulting Agency Comment Spec In Lab Li Sepulveda MD BLOOD BANK LAB ORDER KURT [facility] [place] [address] * Antibody screen (07/28/2017 6:55 PM EST) Pathologist [facility] Ab Screen Interp Positive [facility] Expires at 2359 on: 07/31/2017 [facility] Blood specimen (specimen) 07/28/2017 6:55 PM EST 07/28/2017 7:58 PM EST Narrative Resulting Agency Comment Spec In Lab Li Sepulveda MD BLOOD BANK LAB ORDER KURT Performing Organization Address City/[facility]/ZIP Co de Phone Number [facility] [place] [address] * ABO/Rh Typing (07/28/2017 6:55 PM EST) ABORH Type B Pos [facility] Blood specimen (specimen) 07/28/2017 6:55 PM EST 07/28/2017 7:58 PM EST Narrative Resulting Agency Comment Spec In Lab Li Sepulveda MD BLOOD BANK LAB ORDER KURT [facility] [place] [address] * (ABNORMAL) Differential, Automated (07/28/2017 6:55 PM EST) Neutrophil % 72.4 % [facility] Neutrophil Absolute 7.06(H) 1.70 - 6.10 x10(3)/mc L [facility] Lymph % 19.0 % [facility] Lymphocytes Abs 1.8 0.9 - 3.2 x10(3)/[facility] Monocyte % 7.2 % [facility] Monocyte Abs 0.7 0.3 - 0.9 x10(3)/[facility] Eos % 0.8 % [facility] Eosinophils Abs 0.1 0.0 - 0.4 x10(3)/[facility] Basophil % 0.2 % [facility] Baso Absolute 0.0 0.0 - 0.1 x10(3)/[facility] Immature Gran % 0.40 % [facility] Comment: Immature granulocytes(IG's)percentage and absolute count will include metamyelocytes, myelocytes, and promyelocytes. Blood smears from CBCs yielding IG's will be scanned manually for concordance. If this scan disagrees with the automated IG or if promyelocytes are noted, a manual differential will be performed. Immature Gran Absolute 0.04 0.00 - 0.04 x10(3)/[facility] Blood specimen (specimen) 07/28/2017 6:55 PM EST 07/28/2017 7:24 PM EST Narrative Resulting Agency Comment Spec In Lab Li Sepulveda MD HEMATOLOGY ORDERABLE S Performing Organization Address City/State/[facility] Co de Phone Number [facility] [place] [address] * (ABNORMAL) Hemogram (07/28/2017 6:55 PM EST) White Blood Cell 9.8(H) 4.0 - 9.5 x10(3)/[facility] Red Blood Cell 3.89(L) 4.00 - 5.21 x10(6)/[facility] Hemoglobin 11.4(L) 11.7 - 15.5 gm/dL [facility] Hematocrit 33.2(L) 35.7 - 45.8 % [facility] Mean Cell Volume 85.3 82.6 - 94.4 fL [facility] Mean Cell Hemoglobin 29.3 27.1 - 32.0 pg [facility] Mean Cell Hemoglobin Concentration 34.3 31.7 - 35.0 gm/dL [facility] Platelet 274 145 - 357 x10(3)/mc L [facility] RDW Standard Deviation 40.0 37.0 - 46.0 fL [facility] RDW coefficient of variation 13.0 11.5 - 14.1 % [facility] Mean Platelet Volume 8.5 7.6 - 12.9 fL [facility] NRBC% auto 0.0 % [facility] NRBC Absolute 0.000 0.000 - 0.000 x10(3)/mc L [facility] Blood specimen (specimen) 07/28/2017 6:55 PM EST 07/28/2017 7:24 PM EST Narrative Resulting Agency Comment Spec In Lab Li Sepulveda MD HEMATOLOGY ORDERABLE S Performing Organization Address City/[facility]/ZIP Co de Phone Number [facility] [address] * Group B Strep Culture Screen (07/28/2017 6:55 PM EST) [facility] Group B Streptococcus Culture No Group B Streptococci isolated [facility] Pooled specimen from vaginal introitus and rectal swab (specimen) 07/28/2017 6:55 PM EST 07/28/2017 7:41 PM EST Comment:PENICILLIN ALLERGY?- >NO Narrative Resulting Agency Comment Spec In Lab Li Sepulveda MD MICROBIOLOGY - GENER AL ORDERABLES [facility] [place] [address] * THC (Marijuana), Urine Confirmation (07/28/2017 6:45 [...] developed and its performance characteristics ?determined by [facility] in a manner consistent with CLIA ?requirements. This test has not been cleared or approved by ?the U.S. Food and Drug Administration. ?Test Performed by: ?[facility] ?[address] [place] [address] [facility] Urine specimen (specimen) 07/28/2017 6:45 PM EST 07/29/2017 8:33 AM EST Narrative Resulting Agency Comment Spec In Lab Emerita Rosario MD LAB SEND OUT ORDERAB LES [facility] [place] [address] * (ABNORMAL) TEREZA Screen w/ Confirmation (07/28/2017 6:45 PM EST) Pathologist [facility] Barbiturates Screen, Urine None Detected None Detected [facility] Comment: The barbiturate screen detects [...] Benzodiazepines Screen, Urine None Detected None Detected [facility] Comment: The benzodiazepines screen detects [...] Cocaine Screen, Urine None Detected None Detected [facility] Comment: The cocaine metabolites screen detects benzoylecgonine (Cocaine Metabolite) at concentrations >150 ng/mL. A ? Presumptive Positive? result indicates that the screening result was positive but has not yet been confirmed by a highly-specific method. As with any screen, occasional false positive results from cross-reacting substances may occur. Not for Medico-Legal Purposes. Methadone Metabolites Screen, Urine None Detected None Detected [facility] Comment: The methadone metabolite screen detects EDDP (major methadone metabolite) at concentrations >100 ng/mL. A ? Presumptive Positive? result indicates that the screening result was positive but has not yet been confirmed by a highly-specific method. As with any screen, occasional false positive results from cross-reacting substances may occur. Not for Medico-Legal Purposes. Opiate Screen, Urine None Detected None Detected [facility] Comment: The opiates screen detects [...] Cannabinoid Screen, Urine Presumptive Pos(A) None Detected [facility] Comment: The marijuana metabolites screen detects the THC metabolite (86-nvo-7-carboxy-delta 9-THC) at concentrations >20 ng/mL. A ? Presumptive Positive? result indicates that the screening result was positive but has not yet been confirmed by a highly-specific method. As with any screen, occasional false positive results from cross-reacting substances may occur. Not for Medico-Legal Purposes. Oxycodone Screen, Urine None Detected None Detected [facility] Comment: The oxycodone screen detects oxycodone and oxymorphone at concentrations >100 ng/mL. A ? Presumptive Positive? result indicates that the screening result was positive but has not yet been confirmed by a highly-specific method. As with any screen, occasional false positive results from cross-reacting substances may occur. Not for Medico-Legal Purposes. Buprenorphine Screen, Urine None Detected None Detected [facility] Comment: The buprenorphine screen detects buprenorphine at concentrations >5 ng/mL. A ? Presumptive Positive? result indicates that the screening result was positive but has not yet been confirmed by a highly-specific method. As with any screen, occasional false positive results from cross-reacting substances may occur. Not for Medico-Legal Purposes. Fentanyl Screen, Urine None Detected None Detected [facility] Comment: The fentanyl screen detects fentanyl at concentrations >2 ng/mL. A ? Presumptive Positive? result indicates that the screening result was positive but has not yet been confirmed by a highly-specific method. As with any screen, occasional false positive results from cross-reacting substances may occur. Not for Medico-Legal Purposes. Tricyclics Screen, Urine None Detected None Detected [facility] Comment: The tricyclics screen detects [...] Ethanol Screen, Urine None Detected None Detected [facility] Comment:This urine ethanol a ssay detects ethanol at concentrations >/= 100 mg/L. Amphetamines Screen, Urine None Detected None Detected [facility] Comment: The amphetamine screen detects d-amphetamine and d-methamphetamine at concentrations >300 ng/mL. A ? Presumptive Positive? result indicates that the screening result was positive but has not yet been confirmed by a highly-specific method. As with any screen, occasional false positive results from cross-reacting substances may occur. Not for Medico-Legal Purposes. Adulterants Screen, Urine None Detected None Detected [facility] Comment: No adulteration or dilution [...] Sepulveda MD CHEMISTRY ORDERABLES Performing Organization Address [facility] Co de Phone Number [facility] [place] [address] * TEREZA Request (07/28/2017 6:45 PM EST) TEREZA Conf Requested Yes [facility] TEREZA Requested See Comment [facility] Comment:Refer to the TEREZA Scr een w/ Confirmation order for results. Urine specimen (specimen) 07/28/2017 6:45 PM EST 07/28/2017 7:23 PM EST Narrative Resulting Agency Comment Spec In Lab Li Sepulveda MD URINE ORDERABLES Performing Organization Address [facility] Co de Phone Number [facility] [place] [address] documented in this encounter Visit Diagnoses Not [...] Valenzuela RN) 09 (Due - Provider: Freda Ching, NYA)2100 (Given - Provider: Emely Nagy RN) [...] Routine documented in this encounter Care Teams Contact Manager Relationship Specialty Start Date End Date None None PCP - General 05/29/17 09/02/21 documented as of this encounter
--- OUTSIDE RECORDS SUMMARY | 2024-09-29 18:08 | XMS_ITS | Encounter Summary ---
Author Organization [facility] [place] [address] Care Team Providers Care Transformation Coach Name Role Phone None Primary Care Provider Unavailabl e Encounter Details Date Type Department Care Team ([facility] Contact Info) Description 05/29/2017 9:30 AM EDT Initial Obstetrics and Gynecology at [facility] [place] [address] Jayshree Whatley, RN GA: 19w0d Social History [...] trimester documented in this encounter Care Teams Transformation Coach Relationship Specialty Start Date End Date None None PCP - General 05/29/17 09/02/21 documented as of this encounter
--- OUTSIDE RECORDS SUMMARY | 2024-09-29 18:08 | XMS_ITS | Encounter Summary ---
Author Organization [facility] [place] [address] Care Team Providers Care Quick Mixer Operator Name Role Phone None Primary Care Provider Unavailabl e Reason for Visit * Reason Comments Routine Visit Encounter Details Date Type Department Care Team (Late st Contact Info) Description 06/16/2017 1:30 PM EDT Routine Obstetrics [place] [address] Crow Martines MD [facility] [address] OBSTETRICS [place] [address] GA: 21w4d Social History Tobacco Use Types [...] status documented in this encounter Care Teams Quick Mixer Operator Relationship Specialty Start Date End Date None None PCP - General 05/29/17 09/02/21 documented as of this encounter
--- OUTSIDE RECORDS SUMMARY | 2024-09-29 18:08 | XMS_ITS | Encounter Summary ---
[facility] [place] [address] Care Team Providers Care Box Attacher Name Role Phone None Primary Care Provider Unavailabl e Reason for Visit * Auth/Cert Specialty Diagnoses / Procedures Referred By Jose Enrique velazco Referred To Contact Diagnoses Vasa previa Procedures JUDSON IPI Referral ID Status Reason Start Date Expiration Date Visits Re quested Visits Authorized [id number] 1 1 Encounter Details Date Type Department Care Team ([facility] Contact Info) Description 09/11/2017 10:19 AM EST Anesthesia [place] [address] Mitch Dowd MD Moss, Linzi B, MD [facility] [address] [place] [address] Anesthesia Record Procedure Summary Procedure Name Responsible [...] cephalic vein (lateral side of arm), right; cxip-rby-rhtrzk catheter system; 22 gauge, 1 in length, 3/4 in length; Denise Irvin RN; intradermal injection, tolerated well; 0; no longer indicated, catheter/device intact, removed per policy/procedure; 09/15/17; 18209/03/17 0118 by Denise Irvin, NYA 09/15/17 182 by Asif Grove RN (RETIRED) Peripheral IV Line - Single Lumen 09/11/17; 0915; metacarpal vein (top of hand), left; ewpm-vix-gwtqfd catheter system; 20 gauge; felicitas ham rn; distraction; 0; pt wanted out so that she could hold her baby without interfearance. Still has IV access in R ant forearm.; other (see comments); 09/12/17; 1020 09/11/17 0915 by Felicitas Ham RN 09/12/17 1020 by Claudine Gamino RN (RETIRED) Peripheral IV Line - Single Lumen 09/11/17; 1006; metacarpal vein (top of hand), right; ufzc-wfe-fxubbg catheter system; 18 gauge; distraction; 0; site [...] Mackenzie MD - 09/11/2017 2:30 PM EST [facility] Department of Anesthesiology Post-procedure Note Patient: Pam [...] All Anesthesia Providers: Anesthesiologist: Mitch Dowd MD Data Input Clerk: Mert Jones MD Most Recent Vitals: 09/11/17 [...] mg documented in this encounter Care Teams Box Attacher Relationship Specialty Start Date End Date None None PCP - General 05/29/17 09/02/21 documented as of this encounter
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
--- OUTSIDE RECORDS SUMMARY | 2024-09-29 18:08 | XMS_ITS | Encounter Summary ---
Author Organization [facility] Address [address] [place] [address] Care Team Providers Care Senior Microsoft Consultant Name Role Phone Unavailable Primary Care Provider Unavailabl e Encounter Details Date Type Department Care Team (Late st Contact Info) Description 01/21/2011 Results Only [facility] [phone] Li Pastor, PEARL RESTORER [address],[place] [address] Social History Tobacco Use Types Packs/Day Years [...] ? PAM JONES ? Accession #: ? [id number] ? : ? 1990 (Age: 20) ??F ?Collect Date: ? 01/21/2011 ? Location: ? [facility] ? Receive Date: ? 01/23/2011 ? Provider: ?LI J SACHIN PEARL RESTORER ? Copy to: ? Specimen/Source: ?Pap Test, [...] Final Re sult [facility] [address] [place] [address] documented in this encounter Visit Diagnoses Not on filedocumented in this encounter
--- OUTSIDE RECORDS SUMMARY | 2024-09-29 18:08 | XMS_ITS | Encounter Summary ---
Author Organization [facility] Address [address] [place] [address] Care Team Providers Care Site Engineer Name Role Phone Unavailable Primary Care Provider Unavailabl e Encounter Details Date Type Department Care Team (Late st Contact Info) Description 02/08/2010 Results Only [facility] - [facility] ([facility]) [address], [place] [address] Ruth Ann Montero, [facility] [address] [place] [address] Social History Tobacco Use Types [...] ? PAM JONES ? Accession #: ? [id number] ? : ? 1990 (Age: 19) ??F ?Collect Date: ? 02/08/2010 ? Location: ? [facility] ? Receive Date: ? 02/11/2010 ? Provider: ?RUTH ANN MARSHA PARACHUTE/COMBATANT DIVER OFFICER ? Copy to: ? Specimen/Source: ?Pap Test, [...] LAB 02/08/2010 02/11/2010 us Ruth Ann Montero PARACHUTE/COMBATANT DIVER OFFICER PATHOLOGY ORDERABLES Final R esult [facility] [address] [place] [address] documented in this encounter Visit Diagnoses Not on filedocumented in this encounter
--- OUTSIDE RECORDS SUMMARY | 2024-09-29 18:08 | XMS_ITS | Encounter Summary ---
Author Organization [facility] Address [address] [place] [address] Care Team Providers Care Contact Center Analyst Name Role Phone Unknown, Provider Primary Care Provider Unava ilable Encounter Details Date Type Department Care Team (Late st Contact Info) Description 04/21/2021 Lab Requisition [facility] Pathology & Laboratory Medicine - [address] [address] Outr Resulting Lab, Provider Social History Tobacco [...] Syphilis Serology Negative Negative 04/22/2021 10:33 EDT [facility] Blood VENOUS BLOOD / Unknown 04/20/2021 15:35 EDT 04/21/2021 16:08 EDT us Provider Outr Resulting Lab IMMUNOLOGY AND SEROL OGY ORDERABLES Final Result [facility] [address] [place] [address] documented in this encounter Visit Diagnoses Not on filedocumented in this encounter Care Teams Contact Center Analyst Relationship Specialty Start Date End Date Unknown, Provider, PCP - General 05/06/12 documented as of this encounter
--- OUTSIDE RECORDS SUMMARY | 2024-09-29 18:08 | XMS_ITS | Encounter Summary ---
Author Organization [facility]ly [facility] [place] [address] Care Team Providers Care Gettering Filament Machine Operator Name Role Phone None Primary Care Provider Unavailabl e Encounter Details Date Type Department Care Team ([facility] st Contact Info) Description 06/16/2017 12:00 PM EDT Office Visit Pediatric Cardiology at [facility] [place] [address] Ike Thomas MD [address] [place] [address] [place] [address] Pre-existing diabetes mellitus during in second trimester [...] trimester. After delivery: No visits with a director of pediatric rehabilitation are needed unless your licensed direct entry midwife identifies any concerns after . Thanks, Ike Thomas MD Pediatric and Cardiology documented in this encounter Progress Notes * Ike Thomas MD - 06/16/2017 12:00 PM EDT Images from the original note were not included. Patient Providers Pam Lake ( ) : 1990 (27 y.o. female) [address] [place] [address] PCP: None OB: E Yeny Martines Payor: [place]ICA[place] / Plan: [place] / Product Type: *No Product type* / CARDIOLOGY CLINIC Reason for Visit/Indication for Evaluation: diabetes mellitus Dear Dr. Martines, I had the pleasure of seeing Pam at our [place] site today (06/16/2017) for a echocardiogram and [...] She plans to deliver at [facility]. Pam has a history of gestational diabetes, diagnosed at 7 weeks, and therefore presumably pre-existing. Her HgA1c does not appear to have been checked. Aside from the diabetes, the has been complicated by placenta previa. MEDICATIONS: Current Outpatient Prescriptions: ??? vitamin with seqakkch-Kq-Htwv-FA Tablet, Take 1 tablet by mouth daily., [...] disease. No known recurrent loss or sudden syndrome. No known inherited arrhythmias. ECHOCARDIOGRAM RESULTS: Performed today. Personally reviewed and interpreted. Poor acoustic windows. For detailed findings,please see the full echo report. But in brief, it was normal. ?? Single intrauterine , levocardia, abdominal situs solitus, normal (S,D,S) segmental cardiac relationships. ?? The heart rate and rhythm appeared normal. ?? Normal cardiac shunts (including a moderate size foramen ovale with nipcg-dx-wdff flow, ductus arteriosus with non-restrictive dmewt-ic-kpwi flow, and ductus venosus). ?? No significant [...] If there is poor glycemic control. Current [place] [employer] guidelines recommend screening of HgA1c [...] concerns should be dire cted to any director of pediatric rehabilitation in our offices. Independent of procedural time, 10 of 10 minutes were spent with the patient in counseling to discuss normal cardiac anatomy and physiology, review of today's echocardiogram results and review of those findings which can and cannot be prenatally detected as described above. It was a pleasure to see Pam today in our office at [facility]. Thank you for the opportunity to [...] Primary documented in this encounter Care Teams Gettering Filament Machine Operator Relationship Specialty Start Date End Date None None PCP - General 05/29/17 09/02/21 documented as of this encounter
--- OUTSIDE RECORDS SUMMARY | 2024-09-29 18:08 | XMS_ITS | Encounter Summary ---
Author Organization [facility] [place] [address] Care Team Providers Care Health Promotion Manager Name Role Phone None Primary Care Provider Unavailabl e Encounter Details Date Type Department Care Team (Latest Contact Info) Description 06/16/2017 11:48 AM EDT - 06/16/2017 11:59 PM EDT Hospital Encounter Non-[place] [address] Crow Martines MD [facility] OBSTETRICS [place] [address] Gestational diabetes mellitus (GDM) in second trimester, [...] 20 tablet 3 09/14/2017 10/27/2017 vitamin with jjsjexit-Vg-Lbpw-FA Tablet Take 1 tablet by mouth daily. [...] ?? (Age): 1990(27y) ? Med Rec#: ? [id number] ?Sex: ?F ? Site Loc: ? [facility] ?Ht / Wt: ??(cm)/ (kg) ? Pt. Loc: ? Study Date: ?? 06/16/2017 ?Pt. Type: Study Quality: ? Referring: Jane Martines Reading: Ike Thomas I ([id number]) Bell Valet: Lolita Birmingham Diagnosis: *ICD-10-PCS Gestational diabetes mellitus in , unspecified control (O24.419) BP: ? / SUMMARY: 1. A echocardiogram was performed at 21wk4d gestation based on estimated due date 10/23/2017, for indication of presumed pre-gestational diabetes. Fair quality images were obtained. ??The fetus is in breech position. 2. Normal heart rate (150 ??bpm). Normal mechanical DC interval (124 ms). No arrhythmia detected. 3. [...] a patent foramen ovale (PFO). ?There is mvhqb-jr-lfhm shunting across the patent foramen ovale with [...] is a patent ductus arteriosus. ?There is nhxyk-gv-exwa shunting across the patent ductus arteriosus with [...] Echocardiogram Patient: ROBERT CUADRA(Age): 1990(27y) Med Rec#: [id number] Sex: F Site Loc: [facility] Ht / Wt: (cm)/ (kg) Pt. Loc: Study Date: 06/16/2017 Pt. Type: Study Quality: Referring: Jane Martines Reading: Ike Thomas I ([id number]) Bell Valet: Lolita Birmingham Diagnosis: *ICD-10-PCS Gestational diabetes mellitus in , unspecified control (O24.419) BP: / SUMMARY: 1. A echocardiogram was performed at 21wk4d gestation based on estimated due date 10/23/2017, for indication of presumed pre-gestational diabetes. Fair quality images were obtained. The fetus is in breech position. 2. Normal heart rate (150 bpm). Normal mechanical DC interval (124 ms). No arrhythmia detected. 3. [...] a patent foramen ovale (PFO). There is trqrc-ze-hxvr shunting across the patent foramen ovale with [...] is a patent ductus arteriosus. There is uwtzt-dd-yhpu shunting across the patent ductus arteriosus with [...] unspecified documented in this encounter Care Teams Health Promotion Manager Relationship Specialty Start Date End Date None None PCP - General 05/29/17 09/02/21 documented as of this encounter
--- OUTSIDE RECORDS SUMMARY | 2024-09-29 18:08 | XMS_ITS | Encounter Summary ---
Author Organization [facility] Address [address] [place] [address] Care Team Providers Care Senior Energy Analyst Name Role Phone Unknown, Provider Primary Care Provider Unava ilable Encounter Details Date Type Department Care Team (Late st Contact Info) Description 09/06/2015 Results Only [facility] [phone] Monique Blunt MD [address] [place] [address] Social History Tobacco Use Types Packs/Day Years [...] reading/interpreti ng unformatted reports. Name: ? JONESPAM CHRISTIAN ? Accession #: ? [id number] : ? 1990 (Age: 25) ??F ?Collect [...] electronically signed by: ? FLAQUITA DARBY MD [facility] ? Report Date: ??09/14/2015 13:52 End of Report [facility] 09/06/2015 09/10/2015 us Monique Blunt MD PATHOLOGY ORDERABLES Final Resu lt [facility] [address] [place] [address] documented in this encounter Visit Diagnoses Not on filedocumented in this encounter Care Teams Senior Energy Analyst Relationship Specialty Start Date End Date Unknown, Provider, PCP - General 05/06/12 documented as of this encounter
--- OUTSIDE RECORDS SUMMARY | 2024-09-29 18:08 | XMS_ITS | Encounter Summary ---
Author Organization [facility] Address [address] [place] [address] Care Team Providers Care Qual Field Manager Name Role Phone Unknown, Provider Primary Care Provider Unavijay ilable Encounter Details Date Type Department Care Team (Late st Contact Info) Description 08/31/2022 Lab Requisition [facility] Pathology & Laboratory Medicine - [address] [address] Outr Resulting Lab, Provider Social History Tobacco [...] gonorrhoeae Result Negative Negative 09/01/2022 13:25 EST [facility] Chlamydia trachomatis Result Negative Negative 09/01/2022 13:25 EST [facility] Swab ENTIRE VAGINA / Unknown 08/29/2022 22:50 EST 08/31/2022 18:01 EST us Provider Outr Resulting Lab MICROBIOLOGY - GENER AL ORDERABLES Final Result [facility] [address] [place] [address] documented in this encounter Visit Diagnoses Not on filedocumented in this encounter Care Teams Qual Field Manager Relationship Specialty Start Date End Date Unknown, Provider, PCP - General 05/06/12 documented as of this encounter
--- OUTSIDE RECORDS SUMMARY | 2024-09-29 18:08 | XMS_ITS | Encounter Summary ---
Author Organization [facility] [place] [address] Care Team Providers Care Basin Tender Name Role Phone None Primary Care Provider Unavailabl e Reason for Visit * Reason Onset Date Comments Questions 07/06/2017 Encounter Details Date Type Department Care Team (Late st Contact Info) Description 07/06/2017 Telephone Obstetrics and Gynecology at [facility] [place] [phone] Swapna Crawford RN Questions Social History Tobacco [...] 2:38 PM EST ----- Patient spoke to monogram machine operator doc last night, had lots of cramping was told to take a bath. Cramps have continues and now she is feeling a strong pressure documented in this encounter Plan of Treatment Not on file documented as of this encounter Visit Diagnoses Not on filedocumented in this encounter Care Teams Basin Tender Relationship Specialty Start Date End Date None None PCP - General 05/29/17 09/02/21 documented as of this encounter
--- OUTSIDE RECORDS SUMMARY | 2024-09-29 18:08 | XMS_ITS | Encounter Summary ---
Author Organization [facility] Address [address] [place] [address] Care Team Providers Care Liquor Department Manager Name Role Phone Unknown, Provider Primary Care Provider Simeon ilable Encounter Details Date Type Department Care Team (Late st Contact Info) Description 08/31/2022 Lab Requisition [facility] Pathology & Laboratory Medicine - [facility] [address] [place] [address] Outr Resulting Lab, Provider Social History Tobacco [...] 1, PCR Negative Negative 09/01/2022 11:31 EST [facility] Herpes Simplex Virus Molecular Detection 2, PCR Negative Negative 09/01/2022 11:31 EST [facility] Swab NASAL / Unknown 08/29/2022 2 2:50 EST 08/31/2022 18:09 EST us Provider Outr Resulting Lab MICROBIOLOGY - GENER AL ORDERABLES Final Result [facility] [address] [place] [address] documented in this encounter Visit Diagnoses Not on filedocumented in this encounter Care Teams Liquor Department Manager Relationship Specialty Start Date End Date Unknown, Provider, PCP - General 05/06/12 documented as of this encounter
--- OUTSIDE RECORDS SUMMARY | 2024-09-29 18:08 | XMS_ITS | Encounter Summary ---
Author Organization [facility] Address [address] [place] [address] Care Team Providers Care Planimeter Operator Name Role Phone Unknown, Provider Primary Care Provider Unava ilable Encounter Details Date Type Department Care Team (Late st Contact Info) Description 04/21/2021 Lab Requisition [facility] Pathology & Laboratory Medicine - [facility] [address] [place] [address] Outr Resulting Lab, Provider Social History Tobacco [...] on filedocumented in this encounter Care Teams Planimeter Operator Relationship Specialty Start Date End Date Unknown, Provider, PCP - General 05/06/12 documented as of this encounter
--- OUTSIDE RECORDS SUMMARY | 2024-09-29 18:08 | XMS_ITS | Encounter Summary ---
Author Organization [facility] Address [address] [place] [address] Care Team Providers Care Message And Delivery Service Pricer Name Role Phone Unknown, Provider Primary Care Provider Unava ilable Encounter Details Date Type Department Care Team (Late st Contact Info) Description 04/21/[address] [facility] Pathology & Laboratory Medicine - [facility] [address] [place] [address] Outr Resulting Lab, Provider Social History Tobacco [...] 4th Generation Negative Negative 04/22/2021 10:26 EDT [facility] Comment: If acute HIV-1 infection is suspected in a high risk ??patient, submit plasma specimen for HIV-1 RNA quantitation test. Fourth Generation assay performed on the [employer]. Blood VENOUS BLOOD / Unknown 04/20/2021 15:35 EDT 04/21/2021 16:08 EDT us Provider Outr Resulting Lab IMMUNOLOGY AND SEROL OGY ORDERABLES Final Result Performing Organization Address [facility] Co de Phone Number [facility] [address] [place] [address] * ACUTE HEPATITIS PROFILE (04/20/2021 15:35 EDT) Hep B Surface Ag Negative Negative 04/22/2021 11:08 EDT [facility] Hep C Antibody Negative Negative 04/22/2021 11:08 EDT [facility] Hepatitis A Antibody, IgM Negative Negative 04/22/2021 11:08 EDT [facility] Comment:The results of this assay can be falsely lowered due to the consumption of Biotin. Hepatitis B Core Ab, Total Negative Negative 04/22/2021 11:08 EDT [facility] Blood VENOUS BLOOD / Unknown 04/20/2021 15:35 EDT 04/21/2021 16:08 EDT us Provider Outr Resulting Lab CHEMISTRY & BLOOD GA S ORDERABLES Final Result Performing Organization Address [facility] Co de Phone Number [facility] [address] [place] [address] documented in this encounter Visit Diagnoses Not on filedocumented in this encounter Care Teams Message And Delivery Service Pricer Relationship Specialty Start Date End Date Unknown, Provider, PCP - General 05/06/12 documented as of this encounter
--- OUTSIDE RECORDS SUMMARY | 2024-09-29 18:08 | XMS_ITS | Encounter Summary ---
Author Organization [facility] Address [address] [place] [address] Care Team Providers Care Athletic Equipment Custodian Name Role Phone Unknown, Provider Primary Care Provider Unava ilable Encounter Details Date Type Department Care Team (Late st Contact Info) Description 05/03/2020 Lab Requisition [facility] Pathology & Laboratory Medicine - [facility] [address] [place] [address] Kylie Cruz, EASEMENT WORKER [address] [place] [address] Encounter for other general examination [...] System with Manual Evaluation 05/11/2020 13:35 T [facility] Specimen Adequacy Satisfactory for Evaluation - transformation zone component present 05/11/2020 13:35 EDT [facility] General Categorization Negative for intraepithelial lesion or malignancy 05/11/2020 13:35 EDT [facility] Descriptive Diagnosis Reactive cellular changes associated with inflammation present (includes repair). Shift in tamiko present suggestive of bacterial vaginosis. 05/11/2020 13:35 EDT [facility] Attestation By the signature below, the attending physician certifies that they have personally conducted a gross and/or microscopic examination of the described specimens and rendered or confirmed the above diagnosis. 05/11/2020 13:35 EDT [facility] at 1335 Clinical History SEE ORDER COMMENTS 05/11/2020 13:35 EDT [facility] Performing Lab [facility] 05/11/2020 13:35 EDT [facility] Scanned Images 05/11/2020 13:35 T [facility] Papanicolaou smear specimen (specimen) CERVIX UTERI STRUCTURE / Unknown 05/02/2020 11:15 EDT 05/03/2020 15:56 EDT us Kylie Cruz EASEMENT WORKER PATHOLOGY ORDERABLES Brenda l Result [facility] [address] [place] [address] documented in this encounter Visit Diagnoses Diagnosis Encounter for other general examination documented in this encounter Care Teams Athletic Equipment Custodian Relationship Specialty Start Date End Date Unknown, ProviderMD PCP - General 05/06/12 documented as of this encounter
--- OUTSIDE RECORDS SUMMARY | 2024-09-29 18:08 | XMS_ITS | Referral Summary ---
Author Organization [facility] Address [address] [place] [address] Care Team Providers Care It Software Developer Name Role Phone Unknown, Provider Primary Care Provider Unava ilable Social History Tobacco Use Types Packs/Day Years Used Date Smoking Tobacco: Never Assessed Comments Unknown Sex and Gender Information Value Date Recorded Sex Assigned at Not on file Legal Sex Female 18:32 EST Gender Identity Not on file Sexual Orientation Not on file Plan of Treatment Not on file Care Teams It Software Developer Relationship Specialty Start Date End Date Unknown, Provider, PCP - General 05/06/12
--- OUTSIDE RECORDS SUMMARY | 2024-09-29 18:08 | XMS_ITS | Encounter Summary ---
Author Organization [facility] Address [facility] [place] [address] Care Team Providers Care Dicer Machine Operator Name Role Phone None Primary Care Provider Unavailabl e Reason for Visit * Auth/Cert Specialty Diagnoses / Procedures Referred By Jose Enrique velazco Referred To Contact Diagnoses Vasa previa Procedures JUDSON IPI Referral ID Status Reason Start Date Expiration Date Visits Re quested Visits Authorized [id number] 1 1 Encounter Details Date Type Department Care Team (Latest Contact Info) Description 07/28/2017 9:30 AM EST - 07/28/2017 2:51 PM [facility] Hospital [place] [address] Lolita Barrett MD [facility] OBSTETRICS [place] [address] Supervision of high risk in second trimester [...] 20 tablet 3 09/14/2017 10/27/2017 vitamin with txikbeap-Pt-Vhhj-FA Tablet Take 1 tablet by mouth daily. [...] 10:51 am) PATIENT INFO: ID #: ? [id number] ?: ??[birth year] (27 yrs) Name: ? RAVINDAR Lopez ?Visit Date: 07/28/2017 10:10 am ? ROBERT PERFORMED BY: Performed By: ? Dhara Hicks RDMS Attending: ?Derick TAY, Li Umanzor Referred By: ?LOLITA BARRETT Location: ? [facility] SERVICE(S) PROVIDED: ??UOBFOL - Efw - Growth - Hernandez - [id number] ? [id number] ??UOBTV - Viability - Cervical Length -Transvaginal - ?? [id number] ??[id number] INDICATIONS: ??27 weeks gestation of ?Z3A.27 ??placenta, [...] 07/28/2017 10:51 am) PATIENT INFO: ID #: [id number] : [birth year] (27 yrs) Name: RAVINDRA Lopez Visit Date: 07/28/2017 10:10 am ROBERT PERFORMED BY: Performed By: Dhara Hicks RDMS Attending: Li Sepulveda MD Referred By: LOLITA BARRETT Location: [facility] SERVICE(S) PROVIDED: UOBFOL - Efw - Growth - Hernandez - [id number] UOBTV - Viability - Cervical Length -Transvaginal - [id number] INDICATIONS: 27 weeks gestation of Z3A.27 placenta, [...] high-risk documented in this encounter Care Teams Dicer Machine Operator Relationship Specialty Start Date End Date None None PCP - General 05/29/17 09/02/21 documented as of this encounter
--- NOTE | 2024-09-29 18:16 | ED.GENADUL_ITS ---
Discharge Plan Disposition Patient Disposition: Home Condition: Stable Discharge Details Clinical Impression: Corneal ulcer Primary Care Provider: Zoe Mullins V ED Provider: Joy Nielson Home Meds and New Rx's Prescriptions: No Action gabapentin 300 mg capsule 300 mg PO BID ibuprofen 600 mg tablet 600 mg PO TID Qty: 30 0RF acetaminophen [Tylenol Extra Strength] 500 mg tablet 500 mg PO Q6H PRNQty: 30 0RF prazosin 1 mg capsule 1 mg PO .QHS lamotrigine 25 mg tablet 25 mg PO DAILY Patient Comments: TAKE ONE TABLET BY MOUTH TWICE A DAY valacyclovir [Valtrex] 1 gram tablet 1,000 mg PO BID Qty: 14 0RF (DME) nebulizer and compressor Device See Rx Instructions .Route Qty: 1 0RF Rx Instructions: As directed ipratropium-albuterol 0.5 mg-3 mg(2.5 mg base)/3 mL solution for nebulization 3 ml inhalation QID PRN (Reason: shortness of breath or wheezing) Qty: 90 0RF Rx Instructions: 1 inhalation up to 4 times daily as needed for shortness of breath or wheezing metformin 500 mg Tablet 500 mg PO HS albuterol sulfate 2.5 mg/0.5 mL solution for nebulization 2.5 mg IH Q4H PRN (Reason: bronchospasm) Qty: 30 0RF albuterol sulfate 90 mcg/actuation HFA aerosol inhaler 2 puff IH Q6H PRN (Reason: shortness of breath or wheezing) Qty: 6.7 0RF Discharge Instructions Instructions: Corneal Ulcer ED Additional Instructions: You were seen in the emergency department today for evaluation of an eye injury and were found to have a corneal ulcer. You were given antibiotic eyedrops, and you need to use these every 1-2 hours while awake. In the morning [facility] ophthalmology will call you, and you need to be seen in their clinic tomorrow for reassessment because of the location over your pupil. If you cannot get a hold of [facility] or get to their clinic, you need to be seen at the [facility] eye clinic, please call them and explain your situation and be seen within the next 24 to 48 hours. These injuries tend to heal well but only with aggressive treatment, and so it is so important that you continue these eyedrops until you are instructed to stop by an acreage reporter thank you for allowing us to be part of your care. Discharge Data Discharge Date/Time-TO BE ENTERED AT DEPARTURE: 09/29/24 19:05 HPI General Mode of arrival: ambulatory . Date/Time Provider Initiated Documentation: 09/29/24 17:35 . Limitations to Documentation: no limitations . Information obtained by: patient and old records reviewed . HPI Narrative: HPI: This is a 34-year-old female patient with a past medical history significant for diabetes, wears glasses but not contacts, presenting for evaluation of concern for foreign body in the eye. The patient reports that 2 days ago she was putting false eyelashes and, did not think she got anything in her eye but then felt a scratchy sensation. She states for 2 days she has been attempting to get it out, has used milk washes and has been digging at it with her finger, states that she presented today because the eye was red and painful. She does not wear contacts, does wear glasses but has not had them on today. She states she is otherwise been in her normal state of health with no fever or injuries, notes that light is painful. Exam: Gen: Awake and alert, in no apparent distress HEENT: The left eye is significantly injected, pupils are equal and reactive, EOMs are full. She does have haziness to the cornea appreciated over the lateral aspect of the visual axis/pupil on the left side. Visual acuity 20/40 right, 20/125 left uncorrected. Fluorescein uptake appreciated in a irregular circular region over the lateral aspect of the pupil and visual busch. No foreign bodies visualized on bright light exam nor with lid eversion. pH 7.0 Neck: Supple Lungs: No apparent respiratory distress, normal respiratory effort. CV: Appears well perfused Abdomen: Non-distended MSK: Moves 4 extremities without apparent limitation in ROM Skin: Visualized skin without rashes, cyanosis. Neuro: Normal Gait, no obvious focal deficits or facial asymmetry. Speaks in full, clear sentences. Psych: Appropriate for situation. MDM: This is a 34-year-old female patient presenting for evaluation of an eye injury. My differential includes but is not limited to corneal ulcer, abrasion, no evidence for open globe on my physical examination, no foreign bodies visualized. As we are unable to contact our local acreage reporter due to their office being closed, and because of the involvement of the visual axis I did consult ophthalmology at [facility]. They recommended moxifloxacin antibiotic drops, and follow-up within the next 24 to 48 hours. Their clinic will contact the patient in the morning so that she can go down to [facility] to be seen. ED Course: The patient was instructed to use her eyedrops every 1-2 hours while awake, and she understands that she needs to be seen by an eye doctor in the next day. If she cannot go to [facility], she can try to call [facility] and get an appointment made, but she feels comfortable with the follow-up plan to go to [facility]. At this time, the patient has had a full medical evaluation and is safe for discharge to home. They are hemodynamically stable, ambulatory, and tolerating PO. They are understanding of the follow-up plan and return precautions. They left our facility without incident. Joy Nielson MD Related Data Home Medications ?Medication ?Instructions ?Recorded ?Confirmed metformin 500 mg tablet 500 mg PO HS 07/09/19 09/29/24 albuterol sulfate 2.5 mg/0.5 mL 2.5 mg (0.5 mL) inhalation Q4H PRN 08/09/19 09/29/24 solution for nebulization bronchospasm #30 ea albuterol sulfate 90 mcg/actuation 2 puff inhalation Q6H PRN 10/03/19 09/29/24 aerosol inhaler shortness of breath or wheezing #6.7 grams gabapentin 300 mg capsule 300 mg PO BID 11/22/20 09/29/24 acetaminophen 500 mg tablet 500 mg PO Q6H PRN #30 tabs 01/30/21 09/29/24 (Tylenol Extra Strength) ibuprofen 600 mg tablet 600 mg PO TID #30 tabs 01/30/21 09/29/24 lamotrigine 25 mg tablet 25 mg PO DAILY 07/15/22 09/29/24 prazosin 1 mg capsule 1 mg PO .QHS 07/15/22 09/29/24 valacyclovir 1 gram tablet 1,000 mg PO BID #14 tabs 08/29/22 09/29/24 (Valtrex) ipratropium 0.5 mg-albuterol 3 mg 3 ml inhalation QID PRN shortness 11/22/22 09/29/24 (2.5 mg base)/3 mL nebulization of breath or wheezing #90 mL soln nebulizer and compressor #1 ea 11/22/22 09/29/24 Previous Rx's ?Medication ?Instructions ?Recorded albuterol sulfate 2.5 mg/0.5 mL 2.5 mg (0.5 mL) inhalation Q4H PRN 08/09/19 solution for nebulization bronchospasm #30 ea albuterol sulfate 90 mcg/actuation 2 puff inhalation Q6H PRN 10/03/19 aerosol inhaler shortness of breath or wheezing #6.7 grams acetaminophen 500 mg tablet 500 mg PO Q6H PRN #30 tabs 01/30/21 (Tylenol Extra Strength) ibuprofen 600 mg tablet 600 mg PO TID #30 tabs 01/30/21 valacyclovir 1 gram tablet 1,000 mg PO BID #14 tabs 08/29/22 (Valtrex) ipratropium 0.5 mg-albuterol 3 mg 3 ml inhalation QID PRN shortness 11/22/22 (2.5 mg base)/3 mL nebulization of breath or wheezing #90 mL soln nebulizer and compressor #1 ea 11/22/22 Allergies Allergy/AdvReac Type Severity Reaction Status Date / Time No Known Allergies Allergy Verified 09/29/24 17:36 General Stated Complaint: EyeProblem OJRGE: 3 Course Vital Signs Vital signs: Vital Signs Temperature 36.9 C 09/29/24 17:32 Pulse 109 H 09/29/24 17:32 Respiratory Rate 22 09/29/24 17:32 Blood Pressure 137/100 H 09/29/24 17:32 Pulse Oximetry 94 09/29/24 17:32 Temperature 36.9 C 09/29/24 17:55 Temperature Source Oral 09/29/24 17:55 Pulse 109 H 09/29/24 17:55 Respiratory Rate 22 09/29/24 17:55 Blood Pressure 137/100 H 09/29/24 17:55 Blood Pressure Position Sitting 09/29/24 17:32 Pulse Oximetry 94 09/29/24 17:55 Oxygen Delivery Method Room Air 09/29/24 17:55 Oxygen Flow Rate 0 09/29/24 17:32 Pain Level 10 09/29/24 17:55 Medical Decision Making Quality:SDOH Health Related Social Needs: No Data to Display PFSH All Active Problems (Updated 09/29/24 @ 18:58 by Joy Nielson MD) Corneal ulcer (Acute) Diabetes (Chronic) Possible exposure to STD (Acute) COVID-19 (Acute) Right shoulder strain (Acute) Bronchitis (Acute) Cough (Acute) Closed head injury (Acute) Post-concussion headache (Acute) Contusion of face, scalp and neck (Acute) Bilateral carpal tunnel syndrome (Acute) s/p bilateral ECTR 01/30/2021. Medical History Diabetes Anxiety Depression ADHD Asthma BMI 45.0-49.9, adult Surgical History History of dilation and curettage section 2008, 2010 Abdominal hysterectomy (09/11/17) Supracervical hysterectomy with unilateral salpingectomy. Ovaries conserved. 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 Social History Smoking/Tobacco Use Status: Current every day Tobacco Type: cigarettes Smoking risk assessment performed?: Yes Alcohol Intake: current Alcohol Intake frequency: a few times a week Drug use: Daily Substance use type: marijuana Household members: children Number of Children: 3 Pets and animals: Yes Pets and animals: dog(s) What type of physical activity do you participate in: walking Seatbelt use: always Do you feel safe at home: Yes Do you feel safe in your relationship?: Yes
[2024-09-29] MEDS: Moxifloxacin 0.5% 3 ML BTL OS (19:02)
== END 2024-09-29 19:05 | disposition home or self-care (01) ==
PROVIDERS: Emergency Provider Emergency Medicine; PCP Family Medicine
DX: H16.002 Unspecified corneal ulcer, left eye (principal); E11.9 Type 2 diabetes mellitus without complications; F17.210 Nicotine dependence, cigarettes, uncomplicated
CPT/HCPCS: 99283